=== PATIENT | male | born 1950 | race Two or more races ===

== ENCOUNTER 2020-03-15 07:48 | Outpatient (REF) | payer MEDICARE, MEDICAID, SELFPAY ==
[2020-03-15 09:17] LABS: Albumin Level 4.2 g/dL (3.5-5.0)
[2020-03-15 09:47] LABS: Free T4 (Free Thyroxine) 0.73 ng/dL (0.71-1.85); Thyroid Stimulating Hormone 1.49 mIU/mL (0.32-4.0); Vitamin D 25-OH Total 29.8 ng/mL (>30)
[2020-03-17 19:16] LABS: Calcium (PTHI) 10.3 mg/dL (8.6-10.3); PTHI 31 pg/mL (14-64)
== END 2020-03-15 07:49 | disposition home or self-care (01) ==
LOC: HO.LAB 07:48
PROVIDERS: PCP Internal Medicine Geriatric Medicine; Visit Provider Internal Medicine
DX: E04.2 Nontoxic multinodular goiter (principal)
CPT/HCPCS: 36415; 82040; 82306; 83970; 84439; 84443

== ENCOUNTER → 2020-05-07 07:43 | Outpatient (BNVA) | payer MEDICARE, MEDICAID, SELFPAY | PROVIDERS: PCP Internal Medicine Geriatric Medicine; Referring Provider Internal Medicine Geriatric Medicine; Visit Provider Internal Medicine | DX: E11.65 Type 2 diabetes mellitus with hyperglycemia (principal); Z79.4 Long term (current) use of insulin; E04.2 Nontoxic multinodular goiter; E55.9 Vitamin D deficiency, unspecified; E78.5 Hyperlipidemia, unspecified; I10 Essential (primary) hypertension; E83.52 Hypercalcemia; Z79.899 Other long term (current) drug therapy | CPT/HCPCS: Q3014 ==

== ENCOUNTER 2020-07-24 13:30 | Outpatient (REF) | payer MEDICARE, MEDICAID, SELFPAY ==
[2020-07-24 14:15] LABS: MANUAL DIFF FLAG NO
[2020-07-24 14:17] LABS: Basophils Absolute Auto 0.1 X10*3/uL (0.0-0.2); Basophils Percent Auto 0.8 % (0-2); Eosinophils Absolute Auto 0.2 X10*3/uL (0.0-0.4); Eosinophils Percent Auto 1.5 % (0-4); Hematocrit 44.1 % (42-52); Hemoglobin 14.7 g/dl (14.0-18.0); Imm Gran Abs Auto 0.05 X10*3/uL (0.00-0.03); Imm Gran Pct Auto 0.4 % (0.0-0.4); Lymphocytes Absolute Auto 3.3 X10*3/uL (1.2-4.9); Mean Corpuscular HGB Conc 33.3 g/dl (31.0-36.0); Mean Corpuscular Hemoglobin 29.3 pg (27.0-33.0); Mean Platelet Volume 10.1 fL (9.4-12.4); Monocytes Absolute Auto 0.9 X10*3/uL (0.1-1.2); Monocytes Percent Auto 7.4 % (2-11); Neutrophils Absolute Auto 7.2 X10*3/uL (2.0-8.3); Neutrophils Percent Auto 61.9 % (45-73); Platelet Count 307 X10*3/uL (160-400); Red Blood Count 5.01 X10*6/uL (4.60-5.80); Red Cell Distribution Width 13.2 % (11.0-16.0); White Blood Count 11.6 X10*3/uL (4.8-10.8)
[2020-07-24 14:46] LABS: Alanine Aminotransferase 67 U/L (0-40); Albumin Level 4.2 g/dL (3.5-5.0); Alkaline Phosphatase 69 U/L (39-117); Anion Gap 15 (12-20); Aspartate Amino Transferase 37 U/L (5-37); Bilirubin Total 0.4 mg/dL (0.0-1.0); Blood Urea Nitrogen 28 mg/dL (9-16); Calcium 10.5 mg/dL (8.4-10.2); Carbon Dioxide 30 mmol/L (22-29); Chloride 98 mmol/L (96-108); Estimated Glomerular Filt Rate > 60; Glucose Random 133 mg/dL (60-115); Potassium 3.9 mmol/L (3.3-5.1); Sodium 139 mmol/L (135-145); Total Protein 7.5 g/dL (6.5-8.0)
[2020-07-24 14:52] LABS: Creatinine Urine 29.24 mg/dL; Microalbum/Creatinine Ratio Ur 208.6 ug/mg cr
== END 2020-07-24 13:31 | disposition home or self-care (01) ==
LOC: HO.LAB 13:30
PROVIDERS: PCP Internal Medicine Geriatric Medicine; Visit Provider Internal Medicine Hypertension Specialist
DX: N18.31 Chronic kidney disease, stage 3a (principal)
CPT/HCPCS: 36415; 80053; 82043; 85025

== ENCOUNTER 2020-07-31 06:00 | Emergency (ER) | payer MEDICARE, MEDICAID, SELFPAY ==
--- NOTE | 2020-07-31 07:44 | ED_ITS ---
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 Mode of arrival: ambulatory Limitations: no limitations History of Present Illness HPI Narrative: 69 yo male with DM, HTN has had a chronic lesion on left inner calf but now over the past two days more red and painful - no fevers, no yellow drainage, states he has not been to a wound care center yet Complaint: extremity pain (ulcer pain) Onset (ago): day(s) (2) Pain Consistency: constant Location: left and lower extremity Quality: aching Radiation: none Relieving factors: nothing Exacerbating factors: nothing Associated symptoms: rash Related Data Home Medications Medication Instructions Recorded Confirmed alcohol swabs 1 pad TOPICAL PRN 05/07/20 05/07/20 amlodipine 5 mg tablet 5 mg PO QAM 05/07/20 05/07/20 aspirin 81 mg tablet,delayed 81 mg PO DAILY 05/07/20 05/07/20 release atorvastatin 40 mg tablet 40 mg PO DAILY 05/07/20 05/07/20 blood sugar diagnostic #10 ea 05/07/20 05/07/20 cetirizine 10 mg tablet mg PO 05/07/20 05/07/20 chlorthalidone 50 mg tablet 50 mg PO QAM 05/07/20 05/07/20 gabapentin 100 mg capsule 100 mg PO BEDTIME 05/07/20 05/07/20 insulin glargine 100 unit/mL 60 unit SUBCUT BEDTIME 05/07/20 05/07/20 subcutaneous solution insulin syringe-needle U-100 1 mL #10 ea 05/07/20 05/07/20 29 gauge x 1/2 pen needle, diabetic 32 gauge x #50 ea 05/07/20 05/07/20/32 repaglinide 2 mg tablet 2 mg PO BID 05/07/20 05/07/20 sennosides 8.6 mg tablet 17.2 mg PO BEDTIME 05/07/20 05/07/20 spironolactone 25 mg tablet 25 mg PO QAM 05/07/20 05/07/20 tamsulosin 0.4 mg capsule 0.4 mg PO BEDTIME 05/07/20 05/07/20 verapamil 120 mg tablet,extended 120 mg PO DAILY 05/07/20 05/07/20 release Previous Rx's Medication Instructions Recorded empagliflozin 25 mg tablet 25 mg PO QAM #30 tab 05/19/20 liraglutide 0.6 mg/0.1 mL (18 mg/3 1.8 mg SUBCUT DAILY #9 ml 06/16/20 mL) subcutaneous pen injector insulin lispro 100 unit/mL 30 unit SUBCUT TID #30 ml 06/23/20 subcutaneous solution metformin 1,000 mg tablet 1,000 mg PO BID #60 tab 06/23/20 cephalexin 500 mg PO BID 7 Days #14 cap 07/31/20 doxycycline hyclate 100 mg PO BID 7 Days #14 cap 07/31/20 hydrocodone-acetaminophen 1 tab PO Q6H PRN #12 tab 07/31/20 mupirocin 1 appl TOPICAL BID 7 Days #15 g 07/31/20 Allergies Allergy/AdvReac Type Severity Reaction Status Date / Time lisinopril [LISINOPRIL] Allergy Severe ANGIOEDEMA Verified 07/31/20 07:54 prednisone [PREDNISONE] Allergy Mild ITCHY Verified 07/31/20 07:54 Review of Systems Review of Systems: Constitutional : No Fever, No Chills ENT/Mouth : No sore throat, No Rhinorrhea Eyes: No Eye Pain, No Swelling, No Redness Cardiovascular : No Chest Pain, No SOB Respiratory : No Cough, No Sputum Gastrointestinal : No Nausea, No Vomiting, No Diarrhea, No abdominal Pain Genitourinary : No Dysuria, No Hematuria Musculoskeletal : No joint pain, No Myalgias, No Joint Swelling Skin : pos Skin Lesions, positive skin rash Neuro : No Weakness, No Numbness, No Headache Psych : No Anxiety, No Depression Heme/Lymph: No Bruising, No Bleeding,No Lymphadenopathy Endocrine : No Polyuria, No Polydipsia All other systems reviewed and are negative PMFSH Past Medical History Attestation statement: The following information was validated with the patient. Medical History Familial hypocalciuric hypercalcemia HLD (hyperlipidemia) HTN (hypertension) Multinodular thyroid T2DM (type 2 diabetes mellitus) Vitamin D deficiency Surgical History Hx of appendectomy Hx of cholecystectomy Hx of colonoscopy Hx of esophagogastroduodenoscopy Family History Family History Father CVD (cardiovascular disease) Diabetes Brother CVD (cardiovascular disease) Diabetes FH: heart attack Social History Social History Smoking Status: Former smoker Advance Directives: No Advance Directives Information Provided: Yes Physical Exam Vital Signs: Appearance: Alert. Oriented X3. No acute distress. Eyes: Pupils equal, round and reactive to light. ENT: Pharynx normal. Neck: Normal inspection. Neck supple. CVS: Normal heart rate and rhythm. Pulses normal. Respiratory: No respiratory distress. Breath sounds normal. Abdomen: Soft and nontender. Skin: Skin warm and dry. Normal skin color. Normal skin turgor. Extremities: No lower extremity edema. No calf ttp LLE inner calf - diabetic ulcer with scab noted - mild surrounding erythema, no drainage, distal NV intact Neuro: Oriented X 3. No motor deficit. No sensory deficit. MDM - Extremity (Nontraumatic) MDM Narrative Medical decision making narrative: 69 yo male with chronic LLE ulcer now with some increased pain and surrounding erythema and mild cellulitis, he is distal NV intact will start on oral antiboitics / mupiricon - refer to wound care center, has no calf pain or swelling to suggest DVT - Discharge Plan Discharge Clinical Impression: Diabetic ulcer of lower leg Cellulitis Qualifiers: Site of cellulitis: extremity Site of cellulitis of extremity: lower extremity Laterality: left Qualified Code(s): L03.116 - Cellulitis of left lower limb Patient Disposition: Home, Self-Care Instructions: Cellulitis (ED), Diabetes and Your Skin (ED) Additional Instructions: return to ED for any worsening symptoms or concerns Prescriptions: New doxycycline hyclate 100 mg capsule 100 mg PO BID 7 Days Qty: 14 RF: 0 hydrocodone-acetaminophen 5-325 mg tablet 1 tab PO Q6H PRN (Reason: pain) Qty: 12 RF: 0 cephalexin 500 mg capsule 500 mg PO BID 7 Days Qty: 14 RF: 0 mupirocin 2 % ointment 1 appl topical BID 7 Days Qty: 15 RF: 0 No Action empagliflozin [Jardiance] 25 mg tablet 25 mg PO QAM Qty: 30 RF: 11 liraglutide [Victoza 3-Beto] 0.6 mg/0.1 mL (18 mg/3 mL) pen injector 1.8 mg subcut DAILY Qty: 9 RF: 11 metformin 1,000 mg tablet 1,000 mg PO BID Qty: 60 RF: 11 insulin lispro [Humalog U-100 Insulin] 100 unit/mL solution 30 unit subcut TID Qty: 30 RF: 11 (DME) pen needle, diabetic 32 gauge x 5/32 needle See Rx Instructions ea .ROUTE DAILY Qty: 50 RF: 0 amlodipine 5 mg tablet 5 mg PO QAM RF: 0 cetirizine 10 mg tablet PO RF: 0 Lantus U-100 Insulin 100 unit/mL solution 60 unit subcut BEDTIME RF: 0 repaglinide 2 mg tablet 2 mg PO BID RF: 0 sennosides 8.6 mg tablet 17.2 mg PO BEDTIME RF: 0 atorvastatin 40 mg tablet 40 mg PO DAILY RF: 0 gabapentin 100 mg capsule 100 mg PO BEDTIME RF: 0 aspirin 81 mg tablet,delayed release (DR/EC) 81 mg PO DAILY RF: 0 (DME) insulin syringe-needle U-100 1 mL 29 gauge x 1/2 syringe See Rx Instructions ea .ROUTE QID Qty: 10 RF: 0 alcohol swabs Pads, Medicated 1 pad topical PRNRF: 0 chlorthalidone 50 mg tablet 50 mg PO QAM RF: 0 tamsulosin 0.4 mg capsule 0.4 mg PO BEDTIME RF: 0 verapamil 120 mg tablet extended release 120 mg PO DAILY RF: 0 (DME) OneTouch Ultra Blue Test Strip Strip See Rx Instructions ea Not Applicable TID Qty: 10 RF: 0 spironolactone 25 mg tablet 25 mg PO QAM RF: 0 Referrals: Jn Torres PA [[facility] [employer] [facility]] - 1 week ([facility]) Print Language: Tongan
[2020-07-31 07:55] VITALS: BP 147/65; PULSE 79; RESP 16; TEMP 36.7; O2SAT 96; BMI 35.5
[2020-07-31] MEDS: cephALEXin 500 MG CAPSULE PO (08:09)
[2020-07-31] MEDS: HYDROcodone Bit/Acetam 5/325 TABLET 1 TAB PO (08:09)
== END 2020-07-31 08:13 | disposition home or self-care (01) ==
LOC: HO.ED 07:57
PROVIDERS: Emergency Provider Emergency Medicine
DX: E11.622 Type 2 diabetes mellitus with other skin ulcer (principal); L97.229 Non-pressure chronic ulcer of left calf with unspecified severity; L03.116 Cellulitis of left lower limb; I10 Essential (primary) hypertension; Z79.4 Long term (current) use of insulin
CPT/HCPCS: 99283

== ENCOUNTER 2020-08-20 12:19 | Outpatient (REF) | payer MEDICARE, MEDICAID, SELFPAY ==
[2020-08-20 13:41] LABS: Estimated Average Glucose 200 mg/dL; Hemoglobin A1c % 8.6 %
[2020-08-20 13:45] LABS: Alanine Aminotransferase 71 U/L (0-40); Albumin Level 4.2 g/dL (3.5-5.0); Alkaline Phosphatase 80 U/L (39-117); Anion Gap 13 (12-20); Aspartate Amino Transferase 35 U/L (5-37); Bilirubin Total 0.4 mg/dL (0.0-1.0); Blood Urea Nitrogen 30 mg/dL (9-16); Calcium 9.7 mg/dL (8.4-10.2); Carbon Dioxide 28 mmol/L (22-29); Chloride 98 mmol/L (96-108); Estimated Glomerular Filt Rate 58; Glucose Random 332 mg/dL (60-115); Potassium 3.8 mmol/L (3.3-5.1); Sodium 135 mmol/L (135-145); Total Protein 7.6 g/dL (6.5-8.0)
[2020-08-20 14:07] LABS: Free T4 (Free Thyroxine) 0.65 ng/dL (0.71-1.85); Thyroid Stimulating Hormone 1.06 uIU/mL (0.32-4.0)
== END 2020-08-20 12:20 | disposition home or self-care (01) ==
LOC: HO.LAB 12:19
PROVIDERS: PCP Internal Medicine Geriatric Medicine; Visit Provider Internal Medicine
DX: E11.65 Type 2 diabetes mellitus with hyperglycemia (principal); E04.2 Nontoxic multinodular goiter; Z79.4 Long term (current) use of insulin
CPT/HCPCS: 36415; 80053; 83036; 84439; 84443

== ENCOUNTER → 2020-08-21 07:36 | Outpatient (BNVA) | payer MEDICARE, MEDICAID, SELFPAY | PROVIDERS: PCP Internal Medicine Geriatric Medicine; Visit Provider Internal Medicine | DX: E11.65 Type 2 diabetes mellitus with hyperglycemia (principal); E04.2 Nontoxic multinodular goiter; E78.5 Hyperlipidemia, unspecified; E83.52 Hypercalcemia; I10 Essential (primary) hypertension; Z79.4 Long term (current) use of insulin; Z71.3 Dietary counseling and surveillance | CPT/HCPCS: 82947; 99212 ==

== ENCOUNTER → 2020-08-28 10:50 | Outpatient (BNVA) | payer MEDICARE, MEDICAID, SELFPAY | PROVIDERS: Visit Provider Surgery | DX: L98.9 Disorder of the skin and subcutaneous tissue, unspecified (principal) | CPT/HCPCS: 99202 ==

== ENCOUNTER 2020-09-10 12:39 | Outpatient (REF) | payer MEDICARE, MEDICAID, SELFPAY ==
[2020-09-10 12:43] VITALS: BMI 35.8
[2020-09-10 12:44] VITALS: BP 161/70; PULSE 83; RESP 18; TEMP 36.7; O2SAT 97
--- NOTE | 2020-09-10 13:22 | P.OP_ITS ---
Operative Note Operative Note Date of Service: 09/10/20 Narrative: Preop diagnosis: Skin lesion, left lower leg Postop diagnosis: Skin lesion, left lower leg, path pending Procedure: Excision of skin lesion, left lower leg Surgeon: Neftaly Almendarez MD The patient is a 70-year-old male with a skin lesion on the left lower leg measuring about 2.8 cm by 2 cm, circular in shape, elevated, with raised margins. He understood the technique of excision under local anesthesia. He was aware of the risks, benefits alternatives. He also was aware that we may not be able to completely close the entire skin lesion because of the size of the lesion and will have to allow healing by secondary intention. He was brought to the minor procedure room. He was placed supine. The area of the skin lesion was prepped and draped lidocaine 1% was used for local anesthesia. An elliptical incision made in the skin around this lesion using a blade 15., with care being taken so as to ensure that there was margins of grossly normal appearing skin. This incision was carried down through the full- thickness skin and part of subcutaneous layer. The the entire lesion was excised. I undermined the edges to allow less tension. I applied full- thickness and 3-0 interrupted sutures. However, with a mid part of the incision was left open as there was note of an adequate skin skin flap to cover this entire area. Applied wet to dry dressings and wrapped the foot with Zulma roll. He tolerated procedure well. There were no complications noted. Estimated blood loss was about 5 cc. I gave him wound care instructions which will be wet to dry dressings daily. He was given some supplies as was well. I will see him in the office for wound check next week.
[2020-09-10 13:25] VITALS: BP 181/76; PULSE 87; RESP 18; O2SAT 97
--- NOTE | 2020-09-10 13:26 | PM.OP ---
Brief Operative Note Date of Service: 09/10/20 Pre-op diagnosis: Skin lesion, left lower leg Post-op diagnosis: same Procedure: Excision of skin lesion left lower leg under local anesthesia Surgeon: Neftaly Almendarez MD Anesthesia: local Estimated blood loss (mL): 5 Pathology: other (Skin lesion) Condition: stable Disposition: other (Home)
== END 2020-09-10 12:40 | disposition home or self-care (01) ==
LOC: HO.MS 12:39
PROVIDERS: PCP Internal Medicine Geriatric Medicine; Visit Provider Surgery
PROC: (CPT 11603; principal; 2020-09-10 13:50)
DX: C44.719 Basal cell carcinoma of skin of left lower limb, including hip (principal); I10 Essential (primary) hypertension; E11.9 Type 2 diabetes mellitus without complications; Z79.4 Long term (current) use of insulin; Z79.899 Other long term (current) drug therapy; Z88.8 Allergy status to other drugs, medicaments and biological substances
CPT/HCPCS: 11603; 88305

== ENCOUNTER → 2020-09-17 09:06 | Outpatient (BNVA) | payer MEDICARE, MEDICAID, SELFPAY | PROVIDERS: PCP Internal Medicine Geriatric Medicine; Visit Provider Surgery | DX: C44.91 Basal cell carcinoma of skin, unspecified (principal); Z79.899 Other long term (current) drug therapy | CPT/HCPCS: Q3014 ==

== ENCOUNTER → 2020-09-18 13:05 | Outpatient (BNVA) | payer MEDICARE, MEDICAID, SELFPAY | PROVIDERS: PCP Internal Medicine Geriatric Medicine; Visit Provider Internal Medicine Cardiovascular Disease | DX: I35.0 Nonrheumatic aortic (valve) stenosis (principal); I10 Essential (primary) hypertension | CPT/HCPCS: 93005; 99202 ==

== ENCOUNTER → 2020-10-06 14:18 | Outpatient (BNVA) | payer MEDICARE, MEDICAID, SELFPAY | PROVIDERS: PCP Internal Medicine Geriatric Medicine; Visit Provider Surgery | DX: Z48.3 Aftercare following surgery for neoplasm (principal); Z86.018 Personal history of other benign neoplasm | CPT/HCPCS: 99212 ==

== ENCOUNTER → 2020-11-03 12:33 | Outpatient (REF) | payer MEDICARE, MEDICAID, SELFPAY ==
--- NOTE | 2020-11-03 12:35 | CA_ITS ---
Transthoracic Echocardiogram Patient (Last, First, Middle): Josue Gautam, Gender: Male Date of : 1950 Age: 70 Procedure Date: 11/03/2020 Procedure Type: Transthoracic Echocardiogram Location: OP Height: 167.64 cm Weight: 99.79 kg BSA: 2.08 m2 Heart Rate: bpm BP: 135 / 67 mmHg Business Unit Director: RADHA Referring MD: Jaime Zamarripa MD Symptoms: I35.0 - Nonrheumatic aortic (valve) stenosis Study Quality: Fair/contrast ECG Rhythm: Sinus Conclusions: - The left ventricular systolic function is normal. The visually estimated ejection fraction is between 60-65%. - There is mild calcification of the aortic valve. - No obvious valvular pathology seen on this study. Findings Procedure Information Contrast agent, definity, is being given per protocol without apparent complications. Left Ventricle Normal left ventricular cavity size. There is mildly increased left ventricular wall thickness. The left ventricular systolic function is normal. The visually estimated ejection fraction is between 60-65%. There is no evidence of regional wall motion abnormalities. Evidence suggests grade I (mild) diastolic dysfunction. Right Ventricle Normal right ventricular cavity size and systolic function. Atria The left atrium is normal in size. The right atrium is normal in size. Aortic Valve There is a normal trileaflet aortic valve. There is mild calcification of the aortic valve. There is no aortic valve stenosis. The peak aortic velocity is 1.64 m/s with a calculated peak gradient of 11 mmHg. The mean gradient is 5 mmHg. The aortic valve area is 2.25 cm2. There is no aortic valve regurgitation. Mitral Valve The mitral valve appears normal. There is no mitral valve regurgitation. There is no mitral valve stenosis. Pulmonic Valve The pulmonic valve was not well visualized. Tricuspid Valve There is trace tricuspid valve regurgitation. The pulmonary artery systolic pressure is normal. Great Vessels The aortic annulus, sinuses of valsalva, and asc aorta are normal in size. Venous The inferior vena cava is normal in size and collapses greater than 50% with inspiration. Pericardium/Pleural There is no evidence of pericardial effusion. Prior Study Comparison No significant change compared to prior study dated: 11/04/2015. Recommendations, Care & Conclusions No obvious valvular pathology seen on this study. Measurements 2D Linear Measurements IVSd: 1.19 0.6-0.9/0.6-1.0 cm LVIDd: 3.99 3.9-5.3/4.2-5.9 cm LVIDd Index: 1.92 2.4-3.2/2.2-3.1 cm/m2 LVIDs: 2.49 2.0-3.6 cm LVPWd: 1.18 0.7-1.1 cm Ao Root: 3.20 2.1-3.5 cm LA Diam: 3.60 2.7-3.8/3.0-4.0 cm LAIDs Index: 1.73 1.5-2.3 cm/m2 LV Mass: 201.49 67-162/88-224 g LV Mass Index: 96.87 43-95/49-115 g/m2 LVOT Diam: 2.00 3.0+(-)1.3 cm 2D Systolic Function EF 4C: 61.40 >55% EF 2C: 63.80 >55% EF BiP: 62.60 >55% Mitral Valve MV Pk E: 0.59 MV PK A: 0.88 MV Decel Time: 294.00 E/A: 0.70 E'Lateral: 6.09 E'Medial: 6.20 E/E' Med: 9.60 E/E' Lat: 9.80 PHT: 86.00 MVA PHT: 2.56 Decel [place]: 2.02 Aortic Valve AoV Pk Mario: 1.64 AoV Mn Mario: 1.10 AoV VTI: 0.32 AoV Pk Grad: 11.00 Aov Mn Grad: 5.00 FATIMAH Cont.VTI: 2.25 LVOT LVOT Pk Mario: 1.12 LVOT Mn Mario: 0.65 LVOT VTI: 0.23 LVOT Pk Grad: 5.00 LVOT Mn Grad: 2.00 LVOT Diam: 2.00 LVOT Area: 3.14 Diastolic Function MV Pk E: 0.59 MV Pk A: 0.88 E/A: 0.70 E'Medial: 6.20 E/E' Med: 9.60 E' Laterial: 6.09 E/E' Lat: 9.80 Tricuspid Valve TR Pk Mario: 1.53 TR Pk Grad: 9.00 RA Press: 3.00 RVSP: 12.00 Great Vessels Aorta Ao Root-2D: 3.20 2.0-3.7 cm Ao Asc: 3.60 2.1-3.4 cm Ao Arch: 2.70 Updated in Other Vendor System with Status of Final Taiwo Edwards MD electronically signed on 11/04/2020 12:15:36 PM with status of Final
== END ==
LOC: HO.CARD 12:33
PROVIDERS: PCP Internal Medicine Geriatric Medicine; Visit Provider Internal Medicine Cardiovascular Disease
DX: I35.0 Nonrheumatic aortic (valve) stenosis (principal)
CPT/HCPCS: 93306; Q9957

== ENCOUNTER → 2020-11-05 15:52 | Outpatient (BNVA) | payer MEDICARE, MEDICAID, SELFPAY | PROVIDERS: PCP Internal Medicine Geriatric Medicine; Referring Provider Internal Medicine Geriatric Medicine; Visit Provider Surgery | DX: Z87.2 Personal history of diseases of the skin and subcutaneous tissue (principal) | CPT/HCPCS: 99212 ==

== ENCOUNTER 2020-11-27 07:49 | Outpatient (REF) | payer MEDICARE, MEDICAID, SELFPAY ==
[2020-11-27 10:38] LABS: Creatinine Urine 37.24 mg/dL
[2020-11-27 10:38] LABS: Alanine Aminotransferase 77 U/L (0-40); Albumin Level 4.2 g/dL (3.5-5.0); Alkaline Phosphatase 75 U/L (39-117); Anion Gap 12 (12-20); Aspartate Amino Transferase 45 U/L (5-37); Bilirubin Total 0.4 mg/dL (0.0-1.0); Blood Urea Nitrogen 23 mg/dL (9-16); Calcium 9.5 mg/dL (8.4-10.2); Carbon Dioxide 28 mmol/L (22-29); Chloride 101 mmol/L (96-108); Cholesterol 103 mg/dL; Estimated Glomerular Filt Rate > 60; Glucose Random 175 mg/dL (60-115); HDL Cholesterol 35 mg/dL; LDL Cholesterol Calculated 42 mg/dl; Potassium 4.1 mmol/L (3.3-5.1); Sodium 137 mmol/L (135-145); Total Protein 7.5 g/dL (6.5-8.0); Triglycerides 131 mg/dL
[2020-11-27 10:44] LABS: Free T4 (Free Thyroxine) 0.74 ng/dL (0.71-1.85); Thyroid Stimulating Hormone 0.71 uIU/mL (0.32-4.0)
[2020-11-30 14:36] LABS: LDL Cholesterol Direct 50 mg/dL (<100)
== END 2020-11-27 07:50 | disposition home or self-care (01) ==
LOC: HO.LAB 07:49
PROVIDERS: PCP Internal Medicine Geriatric Medicine; Visit Provider Internal Medicine
DX: E11.65 Type 2 diabetes mellitus with hyperglycemia (principal); E04.2 Nontoxic multinodular goiter; E78.5 Hyperlipidemia, unspecified; E83.52 Hypercalcemia; I10 Essential (primary) hypertension; Z79.4 Long term (current) use of insulin
CPT/HCPCS: 36415; 80053; 80061; 82043; 82947; 83721; 84439; 84443; 99212

== ENCOUNTER 2020-12-01 11:23 | Outpatient (REF) | payer MEDICARE, MEDICAID, SELFPAY ==
--- NOTE | ~2020-12-01 | XR_ITS ---
EXAMINATION: XR LUMBOSACRAL SPINE WITH OBLIQUES CLINICAL INFORMATION: Low back pain COMPARISON: Previous MRI April 2018 CT April 2018 and x-ray June 2015 TECHNIQUE: AP, both oblique, and lateral views of the lumbar spine. Lateral view of the lumbosacral junction. FINDINGS: Bone alignment is normal. No fracture or dislocation is seen. Disc spaces are normal. There is degenerative spondylosis of the visualized lower thoracic spine. There is lower lumbar spine facet arthritis. No pars defect is seen. There is evidence of atherosclerotic disease. XR/XR lumbar spine 4V min IMPRESSION: Degenerative changes.
== END 2020-12-01 11:24 | disposition home or self-care (01) ==
LOC: HO.XRAY 11:23
PROVIDERS: PCP Internal Medicine Geriatric Medicine; Visit Provider Internal Medicine Geriatric Medicine
DX: M54.5 Low back pain (principal)
CPT/HCPCS: 72110

== ENCOUNTER 2021-02-03 07:10 | Outpatient (REF) | payer MEDICARE, MEDICAID, SELFPAY ==
[2021-02-03 07:43] LABS: MANUAL DIFF FLAG NO
[2021-02-03 07:50] LABS: Basophils Absolute Auto 0.1 X10*3/uL (0.0-0.2); Basophils Percent Auto 0.6 % (0-2); Eosinophils Absolute Auto 0.3 X10*3/uL (0.0-0.4); Eosinophils Percent Auto 2.7 % (0-4); Hematocrit 44.7 % (42-52); Hemoglobin 14.5 g/dl (14.0-18.0); Imm Gran Abs Auto 0.05 X10*3/uL (0.00-0.03); Imm Gran Pct Auto 0.5 % (0.0-0.4); Lymphocytes Absolute Auto 2.9 X10*3/uL (1.2-4.9); Lymphocytes Percent Auto 27.4 % (20-40); Mean Corpuscular HGB Conc 32.4 g/dl (31.0-36.0); Mean Corpuscular Hemoglobin 28.8 pg (27.0-33.0); Mean Corpuscular Volume 88.9 fL (80-98); Mean Platelet Volume 10.4 fL (9.4-12.4); Monocytes Absolute Auto 0.8 X10*3/uL (0.1-1.2); Monocytes Percent Auto 7.4 % (2-11); Neutrophils Absolute Auto 6.5 X10*3/uL (2.0-8.3); Neutrophils Percent Auto 61.4 % (45-73); Platelet Count 297 X10*3/uL (160-400); Red Blood Count 5.03 X10*6/uL (4.60-5.80); Red Cell Distribution Width 13.1 % (11.0-16.0); White Blood Count 10.6 X10*3/uL (4.8-10.8)
[2021-02-03 07:57] LABS: Estimated Average Glucose 209 mg/dL; Hemoglobin A1c % 8.9 %
[2021-02-03 08:17] LABS: Alanine Aminotransferase 78 U/L (0-40); Albumin Level 3.9 g/dL (3.5-5.0); Alkaline Phosphatase 85 U/L (39-117); Anion Gap 13 (12-20); Aspartate Amino Transferase 38 U/L (5-37); Bilirubin Total 0.4 mg/dL (0.0-1.0); Blood Urea Nitrogen 26 mg/dL (9-16); Calcium 9.7 mg/dL (8.4-10.2); Carbon Dioxide 29 mmol/L (22-29); Chloride 102 mmol/L (96-108); Estimated Glomerular Filt Rate 51; Glucose Random 307 mg/dL (60-115); Sodium 140 mmol/L (135-145); Total Protein 7.3 g/dL (6.5-8.0)
[2021-02-03 08:18] LABS: Anion Gap 14 (12-20); Blood Urea Nitrogen 27 mg/dL (9-16); Calcium 9.8 mg/dL (8.4-10.2); Carbon Dioxide 28 mmol/L (22-29); Chloride 102 mmol/L (96-108); Estimated Glomerular Filt Rate 50; Potassium 4.1 mmol/L (3.3-5.1); Sodium 140 mmol/L (135-145)
[2021-02-03 09:38] LABS: Creatinine Urine 41.37 mg/dL
== END 2021-02-03 07:11 | disposition home or self-care (01) ==
LOC: HO.LAB 07:10
PROVIDERS: Internal Medicine; PCP Internal Medicine Geriatric Medicine; Visit Provider Internal Medicine Hypertension Specialist
DX: E11.65 Type 2 diabetes mellitus with hyperglycemia (principal); E11.22 Type 2 diabetes mellitus with diabetic chronic kidney disease; I12.9 Hypertensive chronic kidney disease with stage 1 through stage 4 chronic kidney disease, or unspecified chronic kidney disease; N18.9 Chronic kidney disease, unspecified; Z79.4 Long term (current) use of insulin
CPT/HCPCS: 36415; 80051; 80053; 82310; 82565; 83036; 84520; 85025

== ENCOUNTER → 2021-03-09 08:02 | Outpatient (BNVA) | payer MEDICARE, MEDICAID, SELFPAY | PROVIDERS: PCP Internal Medicine Geriatric Medicine; Visit Provider Internal Medicine | DX: E11.65 Type 2 diabetes mellitus with hyperglycemia (principal); E04.2 Nontoxic multinodular goiter; E55.9 Vitamin D deficiency, unspecified; E78.5 Hyperlipidemia, unspecified; E83.52 Hypercalcemia; I10 Essential (primary) hypertension; Z79.4 Long term (current) use of insulin | CPT/HCPCS: 82947; 99212 ==

== ENCOUNTER → 2021-03-19 12:32 | Outpatient (BNVA) | payer MEDICARE, MEDICAID, SELFPAY | PROVIDERS: PCP Internal Medicine Geriatric Medicine; Referring Provider Internal Medicine Geriatric Medicine; Visit Provider Internal Medicine Cardiovascular Disease | DX: I35.0 Nonrheumatic aortic (valve) stenosis (principal); I10 Essential (primary) hypertension; R10.13 Epigastric pain | CPT/HCPCS: 99212 ==

== ENCOUNTER → 2021-03-25 11:53 | Outpatient (BNVA) | payer MEDICARE, MEDICAID, SELFPAY | PROVIDERS: PCP Internal Medicine Geriatric Medicine; Referring Provider Internal Medicine Geriatric Medicine; Visit Provider Physician Assistant | DX: R74.01 Elevation of levels of liver transaminase levels (principal); K59.09 Other constipation | CPT/HCPCS: 99202 ==

== ENCOUNTER 2021-03-28 06:53 | Outpatient (REF) | payer MEDICARE, MEDICAID, SELFPAY ==
[2021-03-28 07:10] LABS: MANUAL DIFF FLAG NO
[2021-03-28 08:02] LABS: Creatinine Urine 51.57 mg/dL; Microalbum/Creatinine Ratio Ur 118.2 ug/mg cr
[2021-03-28 08:06] LABS: Alanine Aminotransferase 68 U/L (0-40); Alkaline Phosphatase 76 U/L (39-117); Anion Gap 14 (12-20); Aspartate Amino Transferase 41 U/L (5-37); Bilirubin Total 0.4 mg/dL (0.0-1.0); Blood Urea Nitrogen 20 mg/dL (9-16); Calcium 10.2 mg/dL (8.4-10.2); Carbon Dioxide 28 mmol/L (22-29); Chloride 100 mmol/L (96-108); Estimated Glomerular Filt Rate 56; Glucose Random 234 mg/dL (60-115); Potassium 4.3 mmol/L (3.3-5.1); Sodium 138 mmol/L (135-145); Total Protein 7.5 g/dL (6.5-8.0)
[2021-03-28 08:11] LABS: Basophils Absolute Auto 0.1 X10*3/uL (0.0-0.2); Basophils Percent Auto 0.6 % (0-2); Eosinophils Absolute Auto 0.2 X10*3/uL (0.0-0.4); Eosinophils Percent Auto 2.1 % (0-4); Hematocrit 46.1 % (42-52); Hemoglobin 15.3 g/dl (14.0-18.0); Imm Gran Abs Auto 0.05 X10*3/uL (0.00-0.03); Imm Gran Pct Auto 0.5 % (0.0-0.4); Lymphocytes Absolute Auto 2.4 X10*3/uL (1.2-4.9); Lymphocytes Percent Auto 25.3 % (20-40); Mean Corpuscular HGB Conc 33.2 g/dl (31.0-36.0); Mean Corpuscular Hemoglobin 29.5 pg (27.0-33.0); Mean Corpuscular Volume 88.8 fL (80-98); Mean Platelet Volume 10.9 fL (9.4-12.4); Monocytes Absolute Auto 0.9 X10*3/uL (0.1-1.2); Monocytes Percent Auto 9.3 % (2-11); Neutrophils Absolute Auto 5.9 X10*3/uL (2.0-8.3); Neutrophils Percent Auto 62.2 % (45-73); Platelet Count 282 X10*3/uL (160-400); Red Blood Count 5.19 X10*6/uL (4.60-5.80); Red Cell Distribution Width 13.2 % (11.0-16.0); White Blood Count 9.5 X10*3/uL (4.8-10.8)
== END 2021-03-28 06:54 | disposition home or self-care (01) ==
LOC: HO.LAB 06:53
PROVIDERS: PCP Internal Medicine Geriatric Medicine; Visit Provider Internal Medicine Hypertension Specialist
DX: E11.22 Type 2 diabetes mellitus with diabetic chronic kidney disease (principal); N18.31 Chronic kidney disease, stage 3a
CPT/HCPCS: 36415; 80053; 82043; 85025

== ENCOUNTER 2021-03-29 07:02 | Emergency (ER) | payer MEDICARE, MEDICAID, SELFPAY ==
--- NOTE | ~2021-03-29 | CT_ITS ---
EXAMINATION: CT HEAD WITHOUT CONTRAST CLINICAL INFORMATION: Headache COMPARISON: Head CT January 22, 2015 TECHNIQUE: Contiguous axial imaging was performed from the skull base to vertex without intravenous administration of contrast. This CT examination was performed using dose optimization techniques as appropriate, variously including the following: *Automated exposure control *Adjustment of mA and/or kV according to patient size (this includes techniques or standardized protocols for targeted exams where dose is matched to indication/reason for exam; i.e. extremities or head) *Use of iterative reconstruction technique DLP: 746 mGy-cm FINDINGS: There is no evidence of acute intracranial hemorrhage or territorial infarction. No abnormal mass effect or midline shift is seen. Decker to white matter differentiation is well preserved. No extra-axial fluid collections are identified. The ventricles are normal in size. There is no abnormal attenuation within the brain parenchyma. The osseous structures and soft tissues are normal. The mastoid air cells and visualized portions of the paranasal sinuses are well aerated. CT/CT head/brain wo con IMPRESSION: No acute intracranial pathology.
[2021-03-29 07:10] VITALS: BP 173/77; PULSE 82; RESP 18; TEMP 36.1; O2SAT 97; BMI 35.5
--- NOTE | 2021-03-29 07:37 | ED_ITS ---
HPI - Headache General Chief Complaint: Headache Stated Complaint: HEADACHE BLURY VISION IN EYE Time Seen by Provider: 03/29/21 07:27 Source: patient Mode of arrival: ambulatory Limitations: no limitations History of Present Illness HPI Narrative: 70-year-old male presents of a right-sided headache for the past week he has been taking Tylenol without any relief. He states he has no history of migraines. Patient is very soft-spoken states that he had his vocal cords injured 2 years ago there has been no recent change he also has complaints epigastric versus left upper quadrant abdominal pain and chronic kidney disease. He states he is diabetic for past 20 years. He denies any falls or injuries of his head he states Tylenol does not relieve it nothing seems to make it worse it has been intermittent. He denies any changes in vision double vision blurry vision but states his right eye is tearing and he has pain to his right eye as well. Patient denies any fevers neck pain neck stiffness MD elicited complaint: headache Onset (ago): week(s) Related Data Home Medications Medication Instructions Recorded Confirmed alcohol swabs 1 pad TOPICAL PRN 05/07/20 03/25/21 amlodipine 5 mg tablet 5 mg PO QAM 05/07/20 03/25/21 aspirin 81 mg tablet,delayed 81 mg PO DAILY 05/07/20 03/25/21 release blood sugar diagnostic #10 ea 05/07/20 03/19/21 chlorthalidone 50 mg tablet 50 mg PO QAM 05/07/20 03/25/21 gabapentin 100 mg capsule 100 mg PO BEDTIME 05/07/20 03/19/21 insulin syringe-needle U-100 1 mL #10 ea 05/07/20 03/19/21 29 gauge x 1/2 spironolactone 25 mg tablet 25 mg PO QAM 05/07/20 03/25/21 tamsulosin 0.4 mg capsule 0.4 mg PO BEDTIME 05/07/20 03/25/21 verapamil 120 mg tablet,extended 120 mg PO DAILY 05/07/20 03/25/21 release cetirizine 10 mg tablet 10 mg PO DAILY PRN tab 08/21/20 03/19/21 insulin lispro 100 unit/mL 35 unit SUBCUT TID ml 11/27/20 03/19/21 subcutaneous solution (Humalog U-100 Insulin) canagliflozin 300 mg tablet 300 mg PO QAM 03/25/21 03/25/21 (Invokana) Previous Rx's Medication Instructions Recorded liraglutide 0.6 mg/0.1 mL (18 mg/3 1.8 mg SUBCUT DAILY #9 ml 06/16/20 mL) subcutaneous pen injector (Victoza 3-Beto) metformin 1,000 mg tablet 1,000 mg PO BID #60 tab 06/23/20 mupirocin 2 % topical ointment 1 appl TOPICAL BID 7 Days #15 g 07/31/20 pen needle, diabetic 32 gauge x 1 ea MISCELLANEOUS QID 30 Days 08/11/20 (Pentips) #100 ea canagliflozin 300 mg tablet 300 mg PO DAILY 30 Days #30 tab 08/21/20 (Invokana) insulin glargine 100 unit/mL 65 unit SUBCUT BEDTIME 30 Days 01/04/21 subcutaneous solution #19.5 ml atorvastatin 40 mg tablet 40 mg PO DAILY 30 Days #30 tab 01/28/21 pen needle, diabetic 32 gauge x #125 ea 03/02/21 (BD Ultra-Fine Marry Pen Needle) omeprazole 20 mg capsule,delayed 20 mg PO DAILY #60 cap 03/19/21 release docusate sodium 100 mg capsule 200 mg PO BEDTIME #60 cap 03/25/21 (Colace) methylcellulose (laxative) 500 mg 500 mg PO BID #60 tab 03/25/21 tablet (Citrucel) polyethylene glycol 3350 17 17 g PO DAILY #510 g 03/25/21 gram/dose oral powder (Miralax) Allergies Allergy/AdvReac Type Severity Reaction Status Date / Time lisinopril [LISINOPRIL] Allergy Severe ANGIOEDEMA Verified 03/25/21 12:06 prednisone [PREDNISONE] Allergy Mild ITCHY Verified 03/25/21 12:06 Review of Systems Review of Systems: Review of systems: General: Patient denies any fever chills recent illness or falls Musculoskeletal: Denies back pain or body aches or other injuries HEENT: Headache denies, runny nose, ear pain Respiratory: denies shortness of breath, cough Cardiovascular: no chest pain or palpitations : denies dysuria, frequency Abdomen: no nausea vomiting denies abdominal pain Extremities: no swelling, no pain Skin: no diaphoresis Yes all other systems are reviewed and are negative PMFSH Past Medical History Medical History Basal cell carcinoma (BCC) Familial hypocalciuric hypercalcemia Heart murmur HLD (hyperlipidemia) HTN (hypertension) Multinodular thyroid Skin lesion of left lower extremity T2DM (type 2 diabetes mellitus) Transaminitis Vitamin D deficiency Surgical History Hx of appendectomy Hx of cholecystectomy Hx of colonoscopy Hx of esophagogastroduodenoscopy Hx of melanoma excision Family History Family History Father CVD (cardiovascular disease) Diabetes Brother CVD (cardiovascular disease) Diabetes FH: heart attack Social History Social History Household Members: Family Alcohol intake: unknown Patient Tobacco Use Status: Never used Tobacco Use of substances other than those prescribed or required for medical reasons: No Advance Directives: No Advance Directives Information Provided: Yes Physical Exam Vital Signs: Vital Signs: Last Vital Signs Temp 97 F 03/29/21 07:10 Pulse 78 03/29/21 07:59 Resp 15 03/29/21 07:59 BP 150/62 H 03/29/21 07:59 Pulse Ox 95 03/29/21 07:59 Body Mass Index 35.5 Neurological exam: CN II- XII tested. Patient is alert and oriented to person place and time. Patient has no dysphagia or dysarthia, denies good vision in all four vision lowe no nystagmus on exam, good strength to upper and lower extremities with normal reflexes to brachioradialis, wrist, patella and achilles. Negative romberg, good finger to nose and heel to [place]. General: Well-appearing well-nourished in no signs of distress HEENT: Normocephalic atraumatic Neck: No signs of JVD, no masses no tenderness or lymphadenopathy Cardiovascular: Regular rate and rhythm Respiratory: Clear to auscultation bilaterally Abdomen: Soft nontender no masses Extremities: Normal pedal pulses no signs of edema Skin: Dry warm no rashes Back: No tenderness full ROM MDM - Headache MDM Narrative Medical decision making narrative: Patient with no history of migraines the patient for a CT scan of his head I will check labs including LFTs and lipase his belly exam is benign I do not think the patient has an acute surgical complication with his head again patient fluids Toradol Reglan Benadryl [id number] patient re-evaluated patient is feeling much better patient sleeping in the room CT of the head and labs are unremarkable patient has history of transaminitis which is stable from previous. I do not think patient needs any further workup and feel comfortable sending home with PCP follow-up. Lab Data Result diagrams: 03/29/21 07:45 03/29/21 07:45 Labs: Lab Results 03/29/21 03/29/21 Range/Units 07:45 07:45 WBC 9.4 (4.8-10.8) X10*3/uL RBC 5.04 (4.60-5.80) X10*6/uL Hgb 14.7 (14.0-18.0) g/dl Hct 44.0 (42-52) % MCV 87.3 (80-98) fL MCH 29.2 (27.0-33.0) pg MCHC 33.4 (31.0-36.0) g/dl RDW 13.2 (11.0-16.0) % Plt Count 261 (160-400) X10*3/uL MPV 10.5 (9.4-12.4) fL Immature Gran % (Auto) 0.4 (0.0-0.4) % Neut % (Auto) 68.6 (45-73) % Lymph % (Auto) 19.1 L (20-40) % [place] % (Auto) 9.4 (2-11) % Eos % (Auto) 2.1 (0-4) % Baso % (Auto) 0.4 (0-2) % Lymph # (Auto) 1.8 (1.2-4.9) X10*3/uL [place] # (Auto) 0.9 (0.1-1.2) X10*3/uL Eos # (Auto) 0.2 (0.0-0.4) X10*3/uL Baso # (Auto) 0.0 (0.0-0.2) X10*3/uL Abs Immat Gran (auto) 0.04 H (0.00-0.03) X10*3/uL Absolute Neuts (auto) 6.4 (2.0-8.3) X10*3/uL Absolute Nucleated RBC 0.000 (0.0-0.012) X10*3/uL Nucleated RBC % (auto) 0.0 (0.0-0.2) /100WBC Sodium 136 (135-145) mmol/L Potassium 3.9 (3.3-5.1) mmol/L Chloride 99 (96-108) mmol/L Carbon Dioxide 26 (22-29) mmol/L Anion Gap 15 (12-20) BUN 27 H (9-16) mg/dL Creatinine 1.35 (0.5-1.4) mg/dL Estim Creat Clear Calc 56.3 Estimated GFR 52 Random Glucose 337 H D (60-115) mg/dL Calcium 10.0 (8.4-10.2) mg/dL Total Bilirubin 0.4 (0.0-1.0) mg/dL Direct Bilirubin 0.2 (0.0-0.5) mg/dL AST 35 (5-37) U/L ALT 63 H (0-40) U/L Alkaline Phosphatase 81 (39-117) U/L Total Protein 7.3 (6.5-8.0) g/dL Albumin 4.0 (3.5-5.0) g/dL Lipase 55 (8-78) U/L Discharge Plan Discharge Clinical Impression: Headache Patient Disposition: Home, Self-Care Instructions: General Headache (ED) Additional Instructions: Please call follow-up with her doctor if you have any worsening headache please do not hesitate Tylenol or ibuprofen. If you have any fevers neck stiffness or other concerns please return to the emergency department. Prescriptions: No Action liraglutide [Victoza 3-Beto] 0.6 mg/0.1 mL (18 mg/3 mL) pen injector 1.8 mg subcut DAILY Qty: 9 RF: 11 metformin 1,000 mg tablet 1,000 mg PO BID Qty: 60 RF: 11 pen needle, diabetic [Pentips] 32 gauge x 5/32 needle 1 ea miscellaneous QID 30 Days Qty: 100 RF: 11 insulin glargine 100 unit/mL solution 65 unit subcut BEDTIME 30 Days Qty: 19.5 RF: 11 atorvastatin 40 mg tablet 40 mg PO DAILY 30 Days Qty: 30 RF: 11 (DME) pen needle, diabetic [BD Ultra-Fine Marry Pen Needle] 32 gauge x / needle See Rx Instructions .ROUTE .MEDSUPPLY Qty: 125 RF: 11 mupirocin 2 % ointment 1 appl topical BID 7 Days Qty: 15 RF: 0 amlodipine 5 mg tablet 5 mg PO QAM RF: 0 gabapentin 100 mg capsule 100 mg PO BEDTIME RF: 0 aspirin 81 mg tablet,delayed release (DR/EC) 81 mg PO DAILY RF: 0 (DME) insulin syringe-needle U-100 1 mL 29 gauge x 1/2 syringe See Rx Instructions ea .ROUTE QID Qty: 10 RF: 0 alcohol swabs Pads, Medicated 1 pad topical PRNRF: 0 chlorthalidone 50 mg tablet 50 mg PO QAM RF: 0 tamsulosin 0.4 mg capsule 0.4 mg PO BEDTIME RF: 0 verapamil 120 mg tablet extended release 120 mg PO DAILY RF: 0 (DME) OneTouch Ultra Blue Test Strip Strip See Rx Instructions ea Not Applicable TID Qty: 10 RF: 0 spironolactone 25 mg tablet 25 mg PO QAM RF: 0 cetirizine 10 mg tablet 10 mg PO DAILY PRN (Reason: allergy symptoms) RF: 0 omeprazole 20 mg capsule,delayed release(DR/EC) 20 mg PO DAILY Qty: 60 RF: 0 Invokana 300 mg tablet 300 mg PO DAILY 30 Days Qty: 30 RF: 11 insulin lispro [Humalog U-100 Insulin] 100 unit/mL solution 35 unit subcut TID RF: 0 Invokana 300 mg tablet 300 mg PO QAM RF: 0 Citrucel 500 mg tablet 500 mg PO BID Qty: 60 RF: 5 polyethylene glycol 3350 [Miralax] 17 gram/dose powder 17 g PO DAILY Qty: 510 RF: 2 docusate sodium [Colace] 100 mg capsule 200 mg PO BEDTIME Qty: 60 RF: 5
[2021-03-29 07:48] LABS: MANUAL DIFF FLAG NO
[2021-03-29 07:50] LABS: Basophils Percent Auto 0.4 % (0-2); Eosinophils Absolute Auto 0.2 X10*3/uL (0.0-0.4); Eosinophils Percent Auto 2.1 % (0-4); Hemoglobin 14.7 g/dl (14.0-18.0); Imm Gran Abs Auto 0.04 X10*3/uL (0.00-0.03); Imm Gran Pct Auto 0.4 % (0.0-0.4); Lymphocytes Absolute Auto 1.8 X10*3/uL (1.2-4.9); Lymphocytes Percent Auto 19.1 % (20-40); Mean Corpuscular HGB Conc 33.4 g/dl (31.0-36.0); Mean Corpuscular Hemoglobin 29.2 pg (27.0-33.0); Mean Corpuscular Volume 87.3 fL (80-98); Mean Platelet Volume 10.5 fL (9.4-12.4); Monocytes Absolute Auto 0.9 X10*3/uL (0.1-1.2); Monocytes Percent Auto 9.4 % (2-11); Neutrophils Absolute Auto 6.4 X10*3/uL (2.0-8.3); Neutrophils Percent Auto 68.6 % (45-73); Platelet Count 261 X10*3/uL (160-400); Red Blood Count 5.04 X10*6/uL (4.60-5.80); Red Cell Distribution Width 13.2 % (11.0-16.0); White Blood Count 9.4 X10*3/uL (4.8-10.8)
[2021-03-29] MEDS: 0.9 % Sodium Chloride 500 ML 999 ML IV (07:55)
[2021-03-29] MEDS: Famotidine/PF 20 MG/2 ML VIAL IVPUSH (07:55)
[2021-03-29] MEDS: Ketorolac Tromethamine 15 MG/ML VIAL IVPUSH (07:56)
[2021-03-29] MEDS: diphenhydrAMINE HCL 50 MG/ML VIAL 25 MG IVPUSH (07:58)
[2021-03-29 07:59] VITALS: BP 150/62; PULSE 78; RESP 15; O2SAT 95
[2021-03-29] MEDS: Metoclopramide HCl 10 MG/2 ML VIAL IVPUSH (08:00)
[2021-03-29 08:15] LABS: Alanine Aminotransferase 63 U/L (0-40); Alkaline Phosphatase 81 U/L (39-117); Anion Gap 15 (12-20); Aspartate Amino Transferase 35 U/L (5-37); Bilirubin Direct 0.2 mg/dL (0.0-0.5); Bilirubin Total 0.4 mg/dL (0.0-1.0); Blood Urea Nitrogen 27 mg/dL (9-16); Carbon Dioxide 26 mmol/L (22-29); Chloride 99 mmol/L (96-108); Creatinine Clr Calc Pharmacy 56.3; Estimated Glomerular Filt Rate 52; Glucose Random 337 mg/dL (60-115); Lipase 55 U/L (8-78); Potassium 3.9 mmol/L (3.3-5.1); Sodium 136 mmol/L (135-145); Total Protein 7.3 g/dL (6.5-8.0)
[2021-03-29 08:58] VITALS: BP 145/67; PULSE 74; RESP 17; O2SAT 95
== END 2021-03-29 09:00 | disposition home or self-care (01) ==
PROVIDERS: Emergency Provider Student in an Organized Health Care Education/Training Program; PCP Internal Medicine Geriatric Medicine
DX: R51.9 Headache, unspecified (principal); I10 Essential (primary) hypertension; E11.9 Type 2 diabetes mellitus without complications
CPT/HCPCS: 36415; 70450; 80048; 80076; 83690; 85025; 96374; 96375; 99284; J1200; J1885; J2765

== ENCOUNTER 2021-04-01 10:43 | Outpatient (REF) | payer MEDICARE, MEDICAID, SELFPAY ==
--- NOTE | ~2021-04-01 | US_ITS ---
EXAMINATION: US THYROID CLINICAL INFORMATION: Nontoxic multinodular goiter. COMPARISON: CT neck 01/16/2019. Ultrasound soft tissue head/neck thyroid dated 04/03/2018 and 03/21/2014. TECHNIQUE: Linear transducer huerta-scale and color Doppler examination with attention to the region of the thyroid. FINDINGS: SIZE: Measurements of the solitary left thyroid lobe and nodules are given in sagittal, anteroposterior and transverse dimensions respectively. Right Thyroid Lobe: Surgically absent. Left Thyroid Lobe: 3.6 x 1.4 x 1.5 cm, volume 3.9 mL. Previously 4.2 x 2.2 x 1.4 cm, volume 6.9 mL. Parenchyma: The gland echotexture is heterogeneous. Thyroid vascularity is normal. Isthmus: 0.4 cm in maximum AP dimension. Previously 0.4 cm. Estimated total number of nodules greater than or equal to 1 cm: 1. [employer] nodules are described as follows: 1. Location: Left mid. Size: 1.1 x 0.7 x 1.0 cm, volume 0.4 mL. Previously: 1.1 x 1.0 x 1.1 cm, volume 0.4 mL. Nodule characteristics: Composition: Solid (2). Echogenicity: Hyperechoic (1). Shape: Not taller than wide (0). Margins: Lobulated (2). Echogenic Foci: Punctate echogenic foci (3). ACR TI-RADS total points: 8 ACR TI-RADS category: 5 Significant change in size (>/= 20% in 2 dimensions and minimal increase of 2 mm or 50% or greater increase in volume): None Change in features: None Change in ACR TI-RADS risk category: Not applicable 2. Location: Left mid. Size: 0.5 x 0.4 x 0.4 cm, volume 0.04 mL. Previously: 0.6 x 0.7 x 0.6 cm, volume 0.1 mL. Nodule characteristics: Composition: Solid (2). Echogenicity: Hyperechoic (1). Shape: Not taller than wide (0). Margins: Ill-defined (0). Echogenic Foci: Peripheral calcifications (2). ACR TI-RADS total points: 5 ACR TI-RADS category: 4 Significant change in size (>/= 20% in 2 dimensions and minimal increase of 2 mm or 50% or greater increase in volume): None Change in features: None Change in ACR TI-RADS risk category: Not applicable 3. Location: Left isthmus. Size: 0.4 x 0.4 x 0.2 cm, volume 0.009 mL. Previously: 0.6 x 0.3 x 0.4 cm, volume 0.04 mL. Nodule characteristics: Composition: Cystic(0). ACR TI-RADS total points: 0 ACR TI-RADS category: 1 Significant change in size (>/= 20% in 2 dimensions and minimal increase of 2 mm or 50% or greater increase in volume): None Change in features: None Change in ACR TI-RADS risk category: Not applicable 4. Location: Left inferior. Size: 0.5 x 0.2 x 0.5 cm, volume 0.03 mL. Previously: New since the previous study. Nodule characteristics: Composition: Solid/almost completely solid (2). Echogenicity: Hyperechoic (1). Shape: Not taller than wide (0). Margins: Smooth (0). Echogenic Foci: Peripheral calcifications (2). ACR TI-RADS total points: 5 ACR TI-RADS category: 4 NODES: No lymphadenopathy is seen in the tissue surrounding the thyroid gland. US/US thyroid IMPRESSION: Previously visualized right thyroid nodule is not seen at this time. There are at least 4 left-sided nodules with a new 4th nodule visualized measuring less than 1 cm. The largest solid nodule left mid lobe measuring 1.1 cm is stable. ACR TI-RADS RECOMMENDATION REFERENCE: Ultrasound-guided fine-needle aspiration, followup ultrasound, no further followup. * TR1 (0 point) and TR 2 (2 points): No FNA or followup. * TR3 (3 points): FNA if more than or equal to 2.5 cm in maximum dimension, followup ultrasound in 1, 3 and 5 years if 1.5 to 2.4 cm in maximum dimension. * TR4 (4-6 points): FNA if more than or equal to 1.5 cm in maximum dimension, followup ultrasound in 1, 2, 3 and 5 years if 1 to 1.4 cm in maximum dimension. * TR5 (more than or equal to 7 points): FNA if more than or equal to 1 cm in maximum dimension, followup ultrasound every year for 5 years if 0.5 to 0.9 cm in maximum dimension. * TR3, TR4 or TR5 nodules that are below the size threshold for followup receive no followup.
== END 2021-04-01 10:44 | disposition home or self-care (01) ==
LOC: HO.US 10:43
PROVIDERS: Visit Provider Internal Medicine
DX: E04.2 Nontoxic multinodular goiter (principal)
CPT/HCPCS: 76536

== ENCOUNTER 2021-04-04 03:50 | Emergency (ER) | payer MEDICARE, MEDICAID, SELFPAY ==
--- NOTE | 2021-04-04 | ECG_ITS ---
Test Reason : ABD PAIN Blood Pressure : / mmHG Vent. Rate : 076 BPM Atrial Rate : 076 BPM P-R Int : 192 ms QRS Dur : 084 ms QT Int : 376 ms P-R-T Axes : 037 008 067 degrees QTc Int : 423 ms Normal sinus rhythm Nonspecific ST and T wave abnormality Abnormal ECG No significant changes seen Referred By: Generic ED Physician Electronically Signed By:IMAN ESPINOZA MD
[2021-04-04 04:04] VITALS: BP 168/66; PULSE 77; RESP 18; TEMP 37.1; O2SAT 98; BMI 35.5
--- NOTE | 2021-04-04 04:22 | PC.NURSE ---
IV established, labs and Covid swab obtained. EKG obtained. Call alford within reach, awaiting primary MD richardson.
[2021-04-04 04:24] LABS: MANUAL DIFF FLAG NO
[2021-04-04 04:26] LABS: Basophils Absolute Auto 0.1 X10*3/uL (0.0-0.2); Basophils Percent Auto 0.6 % (0-2); Eosinophils Absolute Auto 0.1 X10*3/uL (0.0-0.4); Eosinophils Percent Auto 0.9 % (0-4); Hematocrit 47.3 % (42-52); Imm Gran Abs Auto 0.07 X10*3/uL (0.00-0.03); Imm Gran Pct Auto 0.6 % (0.0-0.4); Lymphocytes Absolute Auto 2.8 X10*3/uL (1.2-4.9); Lymphocytes Percent Auto 22.4 % (20-40); Mean Corpuscular HGB Conc 33.8 g/dl (31.0-36.0); Mean Corpuscular Hemoglobin 29.3 pg (27.0-33.0); Mean Corpuscular Volume 86.5 fL (80-98); Mean Platelet Volume 10.3 fL (9.4-12.4); Monocytes Absolute Auto 0.9 X10*3/uL (0.1-1.2); Monocytes Percent Auto 6.8 % (2-11); Neutrophils Absolute Auto 8.7 X10*3/uL (2.0-8.3); Neutrophils Percent Auto 68.7 % (45-73); Platelet Count 333 X10*3/uL (160-400); Red Blood Count 5.47 X10*6/uL (4.60-5.80); Red Cell Distribution Width 13.1 % (11.0-16.0); White Blood Count 12.7 X10*3/uL (4.8-10.8)
[2021-04-04 04:39] LABS: COVID-19 Test Negative (Negative); IDNOW Serial# 9DD0AD1C
[2021-04-04 04:43] LABS: Alanine Aminotransferase 105 U/L (0-40); Albumin Level 4.2 g/dL (3.5-5.0); Alkaline Phosphatase 76 U/L (39-117); Anion Gap 19 (12-20); Aspartate Amino Transferase 71 U/L (5-37); Bilirubin Total 0.8 mg/dL (0.0-1.0); Blood Urea Nitrogen 26 mg/dL (9-16); Calcium 10.6 mg/dL (8.4-10.2); Carbon Dioxide 23 mmol/L (22-29); Chloride 92 mmol/L (96-108); Creatinine Clr Calc Pharmacy 55.8; Estimated Glomerular Filt Rate 52; Glucose Random 314 mg/dL (60-115); Lipase 32 U/L (8-78); Potassium 3.9 mmol/L (3.3-5.1); Sodium 130 mmol/L (135-145)
[2021-04-04 04:46] LABS: Troponin-I High Sensitivity < 3.5 ng/L (<3.5-35.0)
--- NOTE | 2021-04-04 04:53 | PC.NURSE ---
at bedside for primary eval. Pt assisted to the bathroom to provide urine sample.
--- NOTE | 2021-04-04 04:56 | ED.GENADULT ---
HPI - General Adult General Chief complaint: Abdominal Pain Stated complaint: Abdominal Pain Time Seen by Provider: 04/04/21 04:40 Source: patient Mode of arrival: ambulatory Limitations: no limitations History of Present Illness HPI narrative: Patient comes emergency room complaining of 1 week of generalized malaise. Patient states that 2 weeks he had his flu shot, did well for 1 week, then patient started complaining of epigastric burning sensation, fatigue, unable to tolerate p.o. patient denies fever or chills, no diarrhea, complaining of constipation. Related Data Home Medications Medication Instructions Recorded Confirmed alcohol swabs 1 pad TOPICAL PRN 05/07/20 03/25/21 amlodipine 5 mg tablet 5 mg PO QAM 05/07/20 03/25/21 aspirin 81 mg tablet,delayed 81 mg PO DAILY 05/07/20 03/25/21 release blood sugar diagnostic #10 ea 05/07/20 03/19/21 chlorthalidone 50 mg tablet 50 mg PO QAM 05/07/20 03/25/21 gabapentin 100 mg capsule 100 mg PO BEDTIME 05/07/20 03/19/21 insulin syringe-needle U-100 1 mL #10 ea 05/07/20 03/19/21 29 gauge x 1/2 spironolactone 25 mg tablet 25 mg PO QAM 05/07/20 03/25/21 tamsulosin 0.4 mg capsule 0.4 mg PO BEDTIME 05/07/20 03/25/21 verapamil 120 mg tablet,extended 120 mg PO DAILY 05/07/20 03/25/21 release cetirizine 10 mg tablet 10 mg PO DAILY PRN tab 08/21/20 03/19/21 insulin lispro 100 unit/mL 35 unit SUBCUT TID ml 11/27/20 03/19/21 subcutaneous solution (Humalog U-100 Insulin) canagliflozin 300 mg tablet 300 mg PO QAM 03/25/21 03/25/21 (Invokana) Previous Rx's Medication Instructions Recorded liraglutide 0.6 mg/0.1 mL (18 mg/3 1.8 mg SUBCUT DAILY #9 ml 06/16/20 mL) subcutaneous pen injector (Victoza 3-Beto) metformin 1,000 mg tablet 1,000 mg PO BID #60 tab 06/23/20 mupirocin 2 % topical ointment 1 appl TOPICAL BID 7 Days #15 g 02/18/21 pen needle, diabetic 32 gauge x 1 ea MISCELLANEOUS QID 30 Days 08/11/20 (Pentips) #100 ea canagliflozin 300 mg tablet 300 mg PO DAILY 30 Days #30 tab 08/21/20 (Invokana) insulin glargine 100 unit/mL 65 unit SUBCUT BEDTIME 30 Days 01/04/21 subcutaneous solution #19.5 ml atorvastatin 40 mg tablet 40 mg PO DAILY 30 Days #30 tab 01/28/21 pen needle, diabetic 32 gauge x #125 ea 03/02/21 (BD Ultra-Fine Marry Pen Needle) omeprazole 20 mg capsule,delayed 20 mg PO DAILY #60 cap 03/19/21 release docusate sodium 100 mg capsule 200 mg PO BEDTIME #60 cap 03/25/21 (Colace) methylcellulose (laxative) 500 mg 500 mg PO BID #60 tab 03/25/21 tablet (Citrucel) polyethylene glycol 3350 17 17 g PO DAILY #510 g 03/25/21 gram/dose oral powder (Miralax) omeprazole 20 mg capsule,delayed 20 mg PO DAILY #14 cap 04/04/21 release ondansetron HCl 4 mg tablet 4 mg PO Q6H PRN #10 tab 04/04/21 (Zofran) Allergies Allergy/AdvReac Type Severity Reaction Status Date / Time lisinopril [LISINOPRIL] Allergy Severe ANGIOEDEMA Verified 04/04/21 04:09 prednisone [PREDNISONE] Allergy Mild ITCHY Verified 04/04/21 04:09 Review of Systems Review of Systems: Constitutional : No Weight loss, No Fever, No Chills, No Night Sweats, complaining of fatigue and generalized malaise ENT/Mouth : No Hearing loss, No Ear Pain, No Nasal Congestion, No Sinus Pain, No Hoarseness, No sore throat, No Rhinorrhea, No Swallowing Difficulty Eyes: No Eye Pain, No Swelling, No Redness, No Foreign Body, No Discharge, No Vision Changes Cardiovascular : No Chest Pain, No SOB, No Dyspnea on Exertion, No Orthopnea, No Edema, No Palpitations Respiratory : No Cough, No Sputum, No Wheezing, No Smoke Exposure, No Dyspnea Gastrointestinal : Complaining of nausea and vomiting, worsened by p.o. intake No Diarrhea, No Constipation, complaining of epigastric pain radiating towards the esophagus, burning sensation, No Hematochezia, No Melena Genitourinary : no irregular bleeding, No Dysuria, No Urinary Frequency, No Hematuria, No Urinary Incontinence, No Urgency, No Flank Pain, No Urinary Flow Changes, No Hesitancy Musculoskeletal : No joint pain, No Myalgias, No Joint Swelling Skin : No Skin Lesions, No rash Neuro : No Weakness, No Numbness, No Paresthesias, No Loss of Consciousness, No Dizziness, No Headache Psych : No Anxiety/Panic, No Depression, No SI/HI/AH/VH, No Social Issues, Heme/Lymph: No Bruising, No Bleeding,No Lymphadenopathy Endocrine : No Polyuria, No Polydipsia, No Temperature Intolerance [facility] Past Medical History Medical History Basal cell carcinoma (BCC) Familial hypocalciuric hypercalcemia Heart murmur HLD (hyperlipidemia) HTN (hypertension) Multinodular thyroid Skin lesion of left lower extremity T2DM (type 2 diabetes mellitus) Transaminitis Vitamin D deficiency Surgical History Hx of appendectomy Hx of cholecystectomy Hx of colonoscopy Hx of esophagogastroduodenoscopy Hx of melanoma excision Family History Family History Father CVD (cardiovascular disease) Diabetes Brother CVD (cardiovascular disease) Diabetes FH: heart attack Social History Social History Household Members: Family Alcohol intake: unknown Patient Tobacco Use Status: Never used Tobacco Advance Directives: No Physical Exam Vital Signs: Vital Signs: Last Vital Signs Temp 98.7 F 04/04/21 04:04 Pulse 71 04/04/21 06:16 Resp 16 04/04/21 06:16 BP 147/67 H 04/04/21 06:16 Pulse Ox 98 04/04/21 06:16 Body Mass Index 35.5 Const: Other: Appearance: Alert. Oriented X3. No acute distress. Eyes: Pupils equal, round and reactive to light. ENT: Pharynx normal. Hoarse voice is at baseline for the last 2 years Neck: Normal inspection. Neck supple. No lymph nodes noted. No crepitus CVS: Normal heart rate and rhythm. Pulses normal. Normal S1 and S2 Respiratory: No respiratory distress. Breath sounds normal. No Wheezing. No rales Abdomen: Soft, does not seem to have any tenderness to deep palpation in all quadrants, No rigidity. No distention Skin: Skin warm and dry. Normal skin color. Normal skin turgor. Extremities: No lower extremity edema. No Lacerations. No Rash Neuro: Oriented X 3. No motor deficit. No sensory deficit. Moving all extermities. No slurred speech. Course Course Course Narrative: I discussed the labs with the patient, unclear reason why patient has an leukocytosis. Likely viral syndrome. Patient was p.o. challenge, was able to eat and drink. Patient blood glucose prior to discharge improved to 212. Medical Decision Making Lab Data Result diagrams: 04/04/21 04:17 04/04/21 04:17 Labs: Lab Results 04/04/21 04/04/21 04/04/21 Range/Units 04:17 04:17 04:17 WBC 12.7 H (4.8-10.8) X10*3/uL RBC 5.47 (4.60-5.80) X10*6/uL Hgb 16.0 (14.0-18.0) g/dl Hct 47.3 (42-52) % MCV 86.5 (80-98) fL MCH 29.3 (27.0-33.0) pg MCHC 33.8 (31.0-36.0) g/dl RDW 13.1 (11.0-16.0) % Plt Count 333 D (160-400) X10*3/uL MPV 10.3 (9.4-12.4) fL Immature Gran % (Auto) 0.6 H (0.0-0.4) % Neut % (Auto) 68.7 (45-73) % Lymph % (Auto) 22.4 (20-40) % Linn % (Auto) 6.8 (2-11) % Eos % (Auto) 0.9 (0-4) % Baso % (Auto) 0.6 (0-2) % Lymph # (Auto) 2.8 (1.2-4.9) X10*3/uL Linn # (Auto) 0.9 (0.1-1.2) X10*3/uL Eos # (Auto) 0.1 (0.0-0.4) X10*3/uL Baso # (Auto) 0.1 (0.0-0.2) X10*3/uL Abs Immat Gran (auto) 0.07 H (0.00-0.03) X10*3/uL Absolute Neuts (auto) 8.7 H (2.0-8.3) X10*3/uL Absolute Nucleated RBC 0.000 (0.0-0.012) X10*3/uL Nucleated RBC % (auto) 0.0 (0.0-0.2) /100WBC Sodium 130 L (135-145) mmol/L Potassium 3.9 (3.3-5.1) mmol/L Chloride 92 L (96-108) mmol/L Carbon Dioxide 23 (22-29) mmol/L Anion Gap 19 (12-20) BUN 26 H (9-16) mg/dL Creatinine 1.36 (0.5-1.4) mg/dL Estim Creat Clear Calc 55.8 Estimated GFR 52 POC Glucose (60-115) mg/dL Random Glucose 314 H (60-115) mg/dL Calcium 10.6 H (8.4-10.2) mg/dL Total Bilirubin 0.8 (0.0-1.0) mg/dL AST 71 H (5-37) U/L ALT 105 H (0-40) U/L Alkaline Phosphatase 76 (39-117) U/L Troponin I High Sens < 3.5 (<3.5-35.0) ng/L Total Protein 8.0 (6.5-8.0) g/dL Albumin 4.2 (3.5-5.0) g/dL Lipase 32 (8-78) U/L Urine Color Urine Appearance Urine pH (5.0-8.0) Ur Specific [place] (1.005-1.025) Urine Protein (NEG-TRACE) MG/DL Urine Glucose (UA) (NEG) MG/DL Urine Ketones (NEG) MG/DL Urine Blood (NEG) Urine Nitrite (NEG) Ur Leukocyte Esterase (NEG) Urine RBC (0) /HPF Urine WBC (0-4) /HPF Ur Squamous Epith Cells /LPF Ur Renal Epithelial Cell /LPF Urine Bacteria /LPF Urine Mucus /LPF COVID-19 (VIKTORIYA) (Negative) COVID-19 Clin Com 04/04/21 04/04/21 04/04/21 Range/Units 04:17 04:58 06:15 WBC (4.8-10.8) X10*3/uL RBC (4.60-5.80) X10*6/uL Hgb (14.0-18.0) g/dl Hct (42-52) % MCV (80-98) fL MCH (27.0-33.0) pg MCHC (31.0-36.0) g/dl RDW (11.0-16.0) % Plt Count (160-400) X10*3/uL MPV (9.4-12.4) fL Immature Gran % (Auto) (0.0-0.4) % Neut % (Auto) (45-73) % Lymph % (Auto) (20-40) % Linn % (Auto) (2-11) % Eos % (Auto) (0-4) % Baso % (Auto) (0-2) % Lymph # (Auto) (1.2-4.9) X10*3/uL Linn # (Auto) (0.1-1.2) X10*3/uL Eos # (Auto) (0.0-0.4) X10*3/uL Baso # (Auto) (0.0-0.2) X10*3/uL Abs Immat Gran (auto) (0.00-0.03) X10*3/uL Absolute Neuts (auto) (2.0-8.3) X10*3/uL Absolute Nucleated RBC (0.0-0.012) X10*3/uL Nucleated RBC % (auto) (0.0-0.2) /100WBC Sodium (135-145) mmol/L Potassium (3.3-5.1) mmol/L Chloride (96-108) mmol/L Carbon Dioxide (22-29) mmol/L Anion Gap (12-20) BUN (9-16) mg/dL Creatinine (0.5-1.4) mg/dL Estim Creat Clear Calc Estimated GFR POC Glucose 212 H (60-115) mg/dL Random Glucose (60-115) mg/dL Calcium (8.4-10.2) mg/dL Total Bilirubin (0.0-1.0) mg/dL AST (5-37) U/L ALT (0-40) U/L Alkaline Phosphatase (39-117) U/L Troponin I High Sens (<3.5-35.0) ng/L Total Protein (6.5-8.0) g/dL Albumin (3.5-5.0) g/dL Lipase (8-78) U/L Urine Color YELLOW Urine Appearance CLEAR Urine pH 6.0 (5.0-8.0) Ur Specific [place] 1.010 (1.005-1.025) Urine Protein NEG (NEG-TRACE) MG/DL Urine Glucose (UA) >=1000 H (NEG) MG/DL Urine Ketones NEG (NEG) MG/DL Urine Blood NEG (NEG) Urine Nitrite NEG (NEG) Ur Leukocyte Esterase NEG (NEG) Urine RBC 0-2 (0) /HPF Urine WBC 0-2 (0-4) /HPF Ur Squamous Epith Cells TRACE /LPF Ur Renal Epithelial Cell TRACE /LPF Urine Bacteria NONE /LPF Urine Mucus TRACE /LPF COVID-19 (VIKTORIYA) Negative (Negative) COVID-19 Clin Com See Note Discharge Plan Discharge Clinical Impression: Acute viral syndrome Patient Disposition: Home, Self-Care Instructions: Viral Syndrome (ED) Additional Instructions: Please follow-up with your primary care physician tomorrow. If you have any worsening or new symptoms, please return to the emergency room or call 911 Prescriptions: New ondansetron HCl [Zofran] 4 mg tablet 4 mg PO Q6H PRN (Reason: nausea and vomiting) Qty: 10 RF: 0 omeprazole 20 mg capsule,delayed release(DR/EC) 20 mg PO DAILY Qty: 14 RF: 0 No Action liraglutide [Victoza 3-Beto] 0.6 mg/0.1 mL (18 mg/3 mL) pen injector 1.8 mg subcut DAILY Qty: 9 RF: 11 metformin 1,000 mg tablet 1,000 mg PO BID Qty: 60 RF: 11 pen needle, diabetic [Pentips] 32 gauge x 5/32 needle 1 ea miscellaneous QID 30 Days Qty: 100 RF: 11 insulin glargine 100 unit/mL solution 65 unit subcut BEDTIME 30 Days Qty: 19.5 RF: 11 atorvastatin 40 mg tablet 40 mg PO DAILY 30 Days Qty: 30 RF: 11 (DME) pen needle, diabetic [BD Ultra-Fine Marry Pen Needle] 32 gauge x 5/32 needle See Rx Instructions .ROUTE .MEDSUPPLY Qty: 125 RF: 11 mupirocin 2 % ointment 1 appl topical BID 7 Days Qty: 15 RF: 0 amlodipine 5 mg tablet 5 mg PO QAM RF: 0 gabapentin 100 mg capsule 100 mg PO BEDTIME RF: 0 aspirin 81 mg tablet,delayed release (DR/EC) 81 mg PO DAILY RF: 0 (DME) insulin syringe-needle U-100 1 mL 29 gauge x 1/2 syringe See Rx Instructions ea .ROUTE QID Qty: 10 RF: 0 alcohol swabs Pads, Medicated 1 pad topical PRNRF: 0 chlorthalidone 50 mg tablet 50 mg PO QAM RF: 0 tamsulosin 0.4 mg capsule 0.4 mg PO BEDTIME RF: 0 verapamil 120 mg tablet extended release 120 mg PO DAILY RF: 0 (DME) OneTouch Ultra Blue Test Strip Strip See Rx Instructions ea Not Applicable TID Qty: 10 RF: 0 spironolactone 25 mg tablet 25 mg PO QAM RF: 0 cetirizine 10 mg tablet 10 mg PO DAILY PRN (Reason: allergy symptoms) RF: 0 omeprazole 20 mg capsule,delayed release(DR/EC) 20 mg PO DAILY Qty: 60 RF: 0 Invokana 300 mg tablet 300 mg PO DAILY 30 Days Qty: 30 RF: 11 insulin lispro [Humalog U-100 Insulin] 100 unit/mL solution 35 unit subcut TID RF: 0 Invokana 300 mg tablet 300 mg PO QAM RF: 0 Citrucel 500 mg tablet 500 mg PO BID Qty: 60 RF: 5 polyethylene glycol 3350 [Miralax] 17 gram/dose powder 17 g PO DAILY Qty: 510 RF: 2 docusate sodium [Colace] 100 mg capsule 200 mg PO BEDTIME Qty: 60 RF: 5
[2021-04-04 05:03] LABS: Appearance Urine CLEAR; Color Urine YELLOW; Glucose Urine UA >=1000 MG/DL (NEG); Leukocyte Esterase Urine NEG (NEG); Nitrite Urine NEG (NEG); Urine Blood NEG (NEG); Urine Ketones NEG (NEG); Urine Protein NEG (NEG-TRACE)
[2021-04-04] MEDS: ondansetron HCL 4 MG/2 ML VIAL IVPUSH (05:11)
[2021-04-04] MEDS: 0.9 % Sodium Chloride 1,000 ML 999 ML IVCONT (05:11)
[2021-04-04 05:13] LABS: Mucus Urine TRACE /LPF; RBC Urine 0-2 /HPF (0); Renal Epithelial Cells Urine TRACE /LPF; Squamous Epithelial Cell Urine TRACE /LPF; WBC Urine 0-2 /HPF (0-4)
--- NOTE | 2021-04-04 05:24 | PC.NURSE ---
Pt medicated per MAR.
[2021-04-04] MEDS: Magnesium Hydrox/Alum Hydrox 30 ML ORAL.SUSP PO (05:32)
[2021-04-04] MEDS: Lidocaine HCl Viscous 2 % 15 ML SOLUTION MUCOUS MEM (05:32)
[2021-04-04] MEDS: Insulin Regular, Human 100 UNIT/ML 3 ML VIAL IVPUSH (05:32)
[2021-04-04 06:16] VITALS: BP 147/67; PULSE 71; RESP 16; O2SAT 98
--- NOTE | 2021-04-04 06:18 | PC.NURSE ---
Repeat POC, 212 mg/dl. VSS.
[2021-04-04 06:20] LABS: Glucose, Whole Blood 212 mg/dL (60-115)
[2021-04-04 07:39] VITALS: BP 146/73; PULSE 74; RESP 16; O2SAT 97
[2021-04-04 07:59] VITALS: TEMP 36.4
--- NOTE | 2021-04-04 08:22 | PC.NURSE ---
pt medically cleared for discharge. discharge summary given and explained to pt. pt reports understanding of information. vss.
== END 2021-04-04 08:23 | disposition home or self-care (01) ==
PROVIDERS: Emergency Provider Emergency Medicine; PCP Internal Medicine Geriatric Medicine
DX: B34.9 Viral infection, unspecified (principal); Z20.822 Contact with and (suspected) exposure to COVID-19; Z79.899 Other long term (current) drug therapy
CPT/HCPCS: 36415; 80053; 81001; 82947; 83690; 84484; 85025; 87635; 93005; 96361; 96374; 96375; 99284; J2405

== ENCOUNTER 2021-04-16 08:48 | Outpatient (REF) | payer MEDICARE, MEDICAID, SELFPAY ==
--- NOTE | ~2021-04-16 | US_ITS ---
EXAMINATION: US COMPLETE ABDOMEN WITH LIVER ELASTOGRAPHY CLINICAL INFORMATION: Elevated liver function tests COMPARISON: Previous CT of the abdomen and pelvis February 2020 TECHNIQUE: Real-time imaging of the abdominal viscera. Noninvasive ultrasound liver fibrosis assessment is performed using Giovanni ElastPQ point quantification shear wave elastography (pSWE) with a C5-2 MHz transducer. Multiple elastography samples are obtained. FINDINGS: PANCREAS: Not well visualized due to bowel gas ABDOMINAL AORTA: Not well visualized due to bowel gas INFERIOR VENA CAVA: Not well visualized due to bowel gas. LIVER: Liver echotexture is increased. The liver is normal in contour. No focal lesion or intrahepatic biliary duct dilatation. Liver slightly enlarged. The right lobe measures 17.5 cm in length. The left lobe measures 13.6 cm in length. Portal flow is normal/hepatopedal Shear wave liver elastography median stiffness is 1.3 m/s (reference: normal median stiffness is 1.3 m/s or less). IQR/median stiffness to assess sampling precision is 0.2 (reference: good quality data set is IQR/median stiffness of 0.15 or less). GALLBLADDER: The gallbladder is been removed. COMMON BILE DUCT: Normal in caliber measuring 0.6 cm in diameter. RIGHT KIDNEY: There is a 1.5 cm cyst in the midpole. No hydronephrosis. No renal calculi or focal parenchymal lesions. The kidney measures 12 cm in maximum dimension. LEFT KIDNEY: Normal. No hydronephrosis. No renal calculi or focal parenchymal lesions. The kidney measures 12 cm in maximum dimension. SPLEEN: Normal. The spleen measures 12 cm in maximum dimension. FREE FLUID: None. US/US abdomen comp w elastography IMPRESSION: 1. Impression: Slightly enlarged echogenic liver probably representing fatty infiltration. Right renal cyst. Limited visualization of the pancreas, aorta and IVC. 2. Liver elastography: Slightly limited due to sampling error. Normal liver stiffness. REFERENCE: Society of Radiologists in Ultrasound Liver Stiffness Thresholds (2020): LIVER STIFFNESS THRESHOLDS: *Liver Stiffness equal or less than 1.3 m/s: High probability of being normal. *Liver Stiffness less than 1.7 m/s: In the absence of other known clinical signs, rules out compensated advanced chronic liver disease. *Liver Stiffness 1.7-2.1 m/s: Suggestive of compensated advanced chronic liver disease but need further test for confirmation. *Liver Stiffness over 2.1 m/s: Rules in compensated advanced chronic liver disease. *Liver Stiffness over 2.4 m/s: Suggestive of clinically significant portal hypertension. QUALITY OF DATA SET: *IQR/Median value equal or less than 0.15 implies a quality data set. *IQR/Median value over 0.15 implies a poor quality data set. SIGNIFICANT CHANGE FROM PRIOR EXAM: Significant change if liver stiffness measurement is 10% or greater from prior exam. OTHER CONSIDERATIONS: The stage of liver fibrosis may be overestimated in the setting of acute hepatitis, liver inflammation, elevated liver function tests, hepatic vascular congestion, obstructive cholestasis, non-fasting state, and infiltrative diseases such as amyloidosis and lymphoma. In some patients with NAFLD, the liver stiffness thresholds for compensated advanced chronic liver disease may be lower. In causes other than viral hepatitis and NAFLD, liver stiffness thresholds are not well established.
== END 2021-04-16 08:49 | disposition home or self-care (01) ==
LOC: HO.US 08:48
PROVIDERS: PCP Internal Medicine Geriatric Medicine; Visit Provider Physician Assistant
DX: R74.01 Elevation of levels of liver transaminase levels (principal)
CPT/HCPCS: 76705; 76981

== ENCOUNTER 2021-04-27 08:36 | Outpatient (REF) | payer MEDICARE, MEDICAID, SELFPAY | END 2021-04-27 08:37 | disposition home or self-care (01) | LOC: HO.LAB 08:36 | PROVIDERS: PCP Internal Medicine Geriatric Medicine; Visit Provider Internal Medicine | DX: Z20.822 Contact with and (suspected) exposure to COVID-19 (principal) | CPT/HCPCS: C9803; U0003; U0005 ==

== ENCOUNTER → 2021-05-21 09:13 | Outpatient (BNVA) | payer MEDICARE, MEDICAID, SELFPAY | PROVIDERS: PCP Internal Medicine Geriatric Medicine; Visit Provider Surgery Vascular Surgery | DX: I83.11 Varicose veins of right lower extremity with inflammation (principal) | CPT/HCPCS: 99202 ==

== ENCOUNTER 2021-06-10 14:08 | Outpatient (REF) | payer MEDICARE, MEDICAID, SELFPAY ==
--- NOTE | ~2021-06-10 | US_ITS ---
EXAMINATION: BILATERAL LOWER EXTREMITY VENOUS ULTRASOUND (REFLUX EXAM) CLINICAL INDICATION: Bilateral lower extremity varicose veins. COMPARISON: Bilateral lower extremity venous Doppler ultrasound on 04/27/2018 TECHNIQUE: Color flow triplex imaging and compression Doppler was performed to evaluate both the deep and the superficial systems bilaterally. To evaluate the superficial system, the examination was performed in the upright position. Color-flow Doppler ultrasound and compression ultrasound were utilized. In addition, maneuvers were utilized to demonstrate reflux. FINDINGS: SUPERFICIAL ULTRASOUND WITH DOPPLER OF RIGHT LOWER EXTREMITY GREAT SAPHENOUS VEIN: Saphenofemoral junction: 0.7 cm Max diameter: 0.7 cm Min diameter: 0.2cm Reflux: No evidence of reflux. DUPLICATED MEDIAL GREAT SAPHENOUS VEIN: Max Diameter: None imaged Reflux: NA DUPLICATED LATERAL GREAT SAPHENOUS VEIN: Diameter: None imaged Reflux: NA SMALL SAPHENOUS VEIN: Proximal Calf: 0.3 cm Distal Calf: 0.2 cm Reflux: No evidence of reflux. VEIN OF GIACOMINI: None imaged. PERFORATORS: Location: Midthigh and below the knee measuring 2 mm each Reflux: None VARICOSITIES: Location: None imaged Reflux: NA DEEP VENOUS ULTRASOUND OF THE RIGHT LOWER EXTREMITY: Common Femoral Vein: Compressible, normal respiratory variation and augmented flow. Femoral vein: Compressible, normal color flow and augmentation. Popliteal Vein: Compressible, normal augmentation. Deep Reflux: There is no evidence of reflux in the deep system in either the common femoral vein or the popliteal vein. Son's Cyst: There is no evidence of a Son's cyst. SUPERFICIAL ULTRASOUND WITH DOPPLER OF LEFT LOWER EXTREMITY GREAT SAPHENOUS VEIN: Saphenofemoral junction: 0.4 cm Max diameter: 0.4 cm Min diameter: 0.2 cm Reflux: No evidence of reflux. DUPLICATED MEDIAL GREAT SAPHENOUS VEIN: Max Diameter: None imaged Reflux: NA DUPLICATED LATERAL GREAT SAPHENOUS VEIN: Diameter: None imaged Reflux: NA SMALL SAPHENOUS VEIN: Proximal Calf: 0.1 cm Distal Calf: 0.2 cm Reflux: No evidence of reflux. VEIN OF GIACOMINI: None imaged. PERFORATORS: Location: None imaged Reflux: NA VARICOSITIES: Location: Few varicosities within the distal thigh and below knee which measure less than 3 mm. Reflux: None DEEP VENOUS ULTRASOUND OF THE LEFT LOWER EXTREMITY: Common Femoral Vein: Compressible, normal respiratory variation and augmented flow. Femoral vein: Compressible, normal color flow and augmentation. Popliteal Vein: Compressible, normal augmentation. Deep Reflux: There is no evidence of reflux in the deep system in either the common femoral vein or the popliteal vein. Son's Cyst: There is no evidence of a Son's cyst. US/US venous duplex LE BI IMPRESSION: 1. No evidence of great saphenous or small saphenous venous insufficiency. 2. Small nonrefluxing varicosities identified at the right midthigh and below the knee. 3. No evidence of DVT or deep venous insufficiency.
== END 2021-06-10 14:09 | disposition home or self-care (01) ==
LOC: HO.US 14:08
PROVIDERS: PCP Internal Medicine Geriatric Medicine; Visit Provider Surgery Vascular Surgery
DX: I83.11 Varicose veins of right lower extremity with inflammation (principal)
CPT/HCPCS: 93970

== ENCOUNTER → 2021-06-18 10:58 | Outpatient (BNVA) | payer MEDICARE, MEDICAID, SELFPAY | PROVIDERS: PCP Internal Medicine Geriatric Medicine; Visit Provider Surgery Vascular Surgery | DX: I83.11 Varicose veins of right lower extremity with inflammation (principal); I73.9 Peripheral vascular disease, unspecified | CPT/HCPCS: 99212 ==

== ENCOUNTER 2021-07-07 14:32 | Outpatient (REF) | payer MEDICARE, MEDICAID, SELFPAY ==
--- NOTE | ~2021-07-07 | US_ITS ---
EXAMINATION: NONINVASIVE ASSESSMENT OF THE ARTERIES OF BOTH LOWER EXTREMITIES TO INCLUDE A PVR EXAM LIMITED (1-2 LEVELS) AND BELEN, BILATERAL ? [place] Ramos M.D. CLINICAL INFORMATION: Peripheral vascular disease COMPARISON: 11/14/2014 TECHNIQUE: The ankle/brachial indices of the distal posterior tibial and the dorsalis pedis arteries were obtained of the lower extremity arterial system bilaterally; along with pressures and pulse volume recordings at the ankle and duplex Doppler techniques of the common femoral, proximal femoral and proximal profunda arteries. The study was performed at rest. ? FINDINGS AT REST:? RIGHT LE. THE RIGHT ANKLE-BRACHIAL INDEX IS: 1.05 (higher of the DP/PT) >0.97-1.25 = normal - no significant arterial disease 0.75-0.96 = mild peripheral arterial disease 0.50-0.74 = moderate peripheral arterial disease <0.50 = severe peripheral arterial disease <0.30 = critical arterial disease 2. SEGMENTAL PRESSURES: Ankle: PT 200 DP 200 3. PVR WAVEFORMS: Ankle: Within normal limits 4. DIRECT DUPLEX: There is atherosclerotic plaque throughout the right lower extremity. There is biphasic flow with preserved diastolic flow reversal throughout the right lower extremity. Velocity measurements are elevated in the mid SFA and distal SFA measuring 208 cm/s and 380 cm/s respectively. LEFT LE. THE LEFT ANKLE-BRACHIAL INDEX IS: 1.06 (higher of the DP/PT) >0.97-1.25 = normal - no significant arterial disease 0.75-0.96 = mild peripheral arterial disease 0.50-0.74 = moderate peripheral arterial disease <0.50 = severe peripheral arterial disease <0.30 = critical arterial disease 2. SEGMENTAL PRESSURES: Ankle: PT 200 DP 202 3. PVR WAVEFORMS: Ankle: Within normal limits 4. DIRECT DUPLEX: There is atherosclerotic plaque throughout the left lower extremity. There is normal triphasic and biphasic flow in the left lower extremity with preserved diastolic flow reversal. There are elevated velocity measurements in the common femoral artery measuring 206 cm/s. US/US arterial duplex LE BI IMPRESSION: There is atherosclerotic plaque throughout both lower extremities. Normal diastolic flow reversal is preserved bilaterally. Elevated velocities suggest moderate peripheral vascular disease in both lower extremities as described above. The ankle brachial indices are within normal limits however, these may be elevated due to noncompressible vessels at the ankle.
== END 2021-07-07 14:33 | disposition home or self-care (01) ==
LOC: HO.US 14:32
PROVIDERS: PCP Internal Medicine Geriatric Medicine; Visit Provider Surgery Vascular Surgery
DX: I73.9 Peripheral vascular disease, unspecified (principal)
CPT/HCPCS: 93923; 93925

== ENCOUNTER → 2021-07-16 09:45 | Outpatient (BNVA) | payer MEDICARE, MEDICAID, SELFPAY | PROVIDERS: PCP Internal Medicine Geriatric Medicine; Visit Provider Surgery Vascular Surgery | DX: M79.604 Pain in right leg (principal); M79.605 Pain in left leg | CPT/HCPCS: 99212 ==

== ENCOUNTER → 2021-07-22 09:38 | Outpatient (BNVA) | payer MEDICARE, MEDICAID, SELFPAY | PROVIDERS: PCP Internal Medicine Geriatric Medicine; Referring Provider Internal Medicine Geriatric Medicine; Visit Provider Physician Assistant | DX: K59.09 Other constipation (principal); K76.0 Fatty (change of) liver, not elsewhere classified | CPT/HCPCS: 99212 ==

== ENCOUNTER 2021-08-07 08:11 | Outpatient (REF) | payer MEDICARE, MEDICAID, SELFPAY ==
[2021-08-07 09:04] LABS: Estimated Average Glucose 232 mg/dL; Hemoglobin A1c % 9.7 %
[2021-08-07 09:23] LABS: Alanine Aminotransferase 51 U/L (0-40); Alkaline Phosphatase 74 U/L (39-117); Anion Gap 18 (12-20); Aspartate Amino Transferase 25 U/L (5-37); Bilirubin Direct 0.2 mg/dL (0.0-0.5); Bilirubin Total 0.5 mg/dL (0.0-1.0); Blood Urea Nitrogen 28 mg/dL (9-16); Calcium 10.4 mg/dL (8.4-10.2); Carbon Dioxide 24 mmol/L (22-29); Chloride 98 mmol/L (96-108); Estimated Glomerular Filt Rate 52; Glucose Random 294 mg/dL (60-115); Sodium 136 mmol/L (135-145); Total Protein 7.4 g/dL (6.5-8.0)
[2021-08-07 09:39] LABS: HBS Num1 0.04 mIU/mL (0-7.99); HBc Num1 0.09 S/CO (0.00-0.79); HBsAGNum1 0.21 S/CO (0.00-0.99); Hepatitis A Antibody IgM 0.28 Index (0-0.79); Hepatitis B Core Antibody Nonreactive (Nonreactive); Hepatitis B Surface Antigen Negative (Negative); ~HepC Num1 0.08 S/CO (0.00-0.79); ~Hepatitis A Antibody IgM Nonreactive (Nonreactive); ~Hepatitis B Surface Antibody NONREACTIVE (Nonreactive); ~Hepatitis C Antibody Nonreactive (Nonreactive)
[2021-08-07 09:41] LABS: Free T4 (Free Thyroxine) 0.72 ng/dL (0.71-1.85)
[2021-08-07 09:44] LABS: Thyroid Stimulating Hormone 1.65 uIU/mL (0.32-4.0)
[2021-08-08 14:22] LABS: Anti Nuclear Antibody Screen NEGATIVE (NEGATIVE)
[2021-08-11 15:06] LABS: Mitochondrial Antibodies NEGATIVE (NEGATIVE)
[2021-08-12 00:16] LABS: Smooth Muscle Antibody <20 U (<20)
== END 2021-08-07 08:12 | disposition home or self-care (01) ==
LOC: HO.LAB 08:11
PROVIDERS: Physician Assistant; PCP Internal Medicine Geriatric Medicine; Visit Provider Internal Medicine
DX: R10.11 Right upper quadrant pain (principal); R74.01 Elevation of levels of liver transaminase levels; R79.89 Other specified abnormal findings of blood chemistry; R74.8 Abnormal levels of other serum enzymes; E11.65 Type 2 diabetes mellitus with hyperglycemia; Z79.4 Long term (current) use of insulin; E55.9 Vitamin D deficiency, unspecified; E04.2 Nontoxic multinodular goiter
CPT/HCPCS: 36415; 80053; 80076; 82248; 82306; 83036; 84439; 84443; 86015; 86038; 86039; 86255; 86256; 86704; 86706; 86709; 86803; 87340

== ENCOUNTER → 2021-08-12 08:03 | Outpatient (BNVA) | payer MEDICARE, MEDICAID, SELFPAY | PROVIDERS: PCP Internal Medicine Geriatric Medicine; Visit Provider Internal Medicine | DX: E11.65 Type 2 diabetes mellitus with hyperglycemia (principal); E04.2 Nontoxic multinodular goiter; E55.9 Vitamin D deficiency, unspecified; E78.5 Hyperlipidemia, unspecified; E83.52 Hypercalcemia; I10 Essential (primary) hypertension; Z79.4 Long term (current) use of insulin | CPT/HCPCS: 82947; 99212 ==

== ENCOUNTER 2021-09-02 12:45 | Outpatient (REF) | payer MEDICARE, MEDICAID, SELFPAY ==
--- NOTE | ~2021-09-02 | CT_ITS ---
EXAMINATION: CT SOFT TISSUE NECK WITHOUT CONTRAST CLINICAL INFORMATION: Nontoxic multinodular goiter. COMPARISON: Neck CT from 01/16/2019. TECHNIQUE: Helical imaging was performed in the axial plane with generation of coronal and sagittal reformatted images. This CT examination was performed using dose optimization techniques as appropriate, variously including the following: *Automated exposure control *Adjustment of mA and/or kV according to patient size (this includes techniques or standardized protocols for targeted exams where dose is matched to indication/reason for exam; i.e. extremities or head) *Use of iterative reconstruction technique DLP: 402 mGy-cm FINDINGS: The patient has had a prior hemithyroidectomy on the right side with surgical clips in the operative bed. Multinodular residual thyroid tissue noted on the left side with scattered glandular calcifications, as on prior imaging. No pathologically enlarged cervical lymph nodes are visible. The parotid and submandibular glands appear normal. No contour abnormality evident within the oral cavity, pharyngeal mucosal space, or larynx. The airway is normally maintained. Dental caries and periapical disease affects multiple teeth with additional periodontal lucencies. The TMJs are normal. The paranasal sinuses, middle ear cavities, and mastoid air cells are fairly well aerated. No acute osseous abnormality otherwise seen. Aside from mild atherosclerotic wall calcifications in the thoracic aorta and at the origins of the great vessels, the imaged mediastinum appears normal. The visualized portions of the lungs are relatively clear with mild subsegmental atelectatic changes. The craniovertebral junction appears normal. The imaged portions of the brain demonstrate no acute abnormality. The patient is status post bilateral lens extractions. CT/CT soft tissue neck wo con IMPRESSION: No acute abnormality on this limited noncontrast study, status post a prior right-sided hemithyroidectomy. Residual mild multinodular left thyroid tissue with scattered glandular calcifications. No cervical adenopathy. Extensive dental disease.
== END 2021-09-02 12:46 | disposition home or self-care (01) ==
LOC: HO.CT 12:45
PROVIDERS: Visit Provider Internal Medicine
DX: E04.2 Nontoxic multinodular goiter (principal)
CPT/HCPCS: 70490

== ENCOUNTER 2021-09-09 15:57 | Outpatient (REF) | payer MEDICARE, MEDICAID, SELFPAY ==
--- NOTE | ~2021-09-09 | CT_ITS ---
EXAMINATION: CT HEAD WITHOUT CONTRAST CLINICAL INFORMATION: Headache. COMPARISON: None. TECHNIQUE: Contiguous axial imaging was performed from the skull base to vertex without intravenous administration of contrast. This CT examination was performed using dose optimization techniques as appropriate, variously including the following: *Automated exposure control *Adjustment of mA and/or kV according to patient size (this includes techniques or standardized protocols for targeted exams where dose is matched to indication/reason for exam; i.e. extremities or head) *Use of iterative reconstruction technique DLP: 900 mGy-cm FINDINGS: There is no evidence of acute intracranial hemorrhage or territorial infarction. No abnormal mass effect or midline shift is seen. Decker to white matter differentiation is well preserved. No extra-axial fluid collections are identified. The ventricles are normal in size. There is no abnormal attenuation within the brain parenchyma. The osseous structures and soft tissues are normal. The mastoid air cells and visualized portions of the paranasal sinuses are well aerated. CT/CT head/brain wo con IMPRESSION: No acute intracranial process seen.
== END 2021-09-09 15:58 | disposition home or self-care (01) ==
LOC: HO.CT 15:57
PROVIDERS: Visit Provider Internal Medicine Geriatric Medicine
DX: R51.9 Headache, unspecified (principal)
CPT/HCPCS: 70450

== ENCOUNTER → 2021-09-16 08:40 | Outpatient (BNVA) | payer MEDICARE, MEDICAID, SELFPAY | PROVIDERS: PCP Internal Medicine Geriatric Medicine; Visit Provider Registered Nurse Diabetes Educator | DX: E11.65 Type 2 diabetes mellitus with hyperglycemia (principal); Z79.4 Long term (current) use of insulin | CPT/HCPCS: 99211 ==

== ENCOUNTER 2021-09-23 12:29 | Emergency (ER) | payer MEDICARE, MEDICAID, SELFPAY ==
--- NOTE | ~2021-09-23 | CT_ITS ---
EXAMINATION: CT BRAIN AND CT CERVICAL SPINE WITHOUT CONTRAST. CLINICAL INFORMATION: Fall. COMPARISON: None TECHNIQUE: Axial 5 minutes thin and reformatted 2 mm thin sagittal coronal images were obtained. Subsequently axial 3 mm thin and reformatted 2 mm thin sagittal and coronal images of cervical spine were obtained. DLP 1350. FINDINGS: Brain: There is no acute intra-axial, extra-axial bleed, masses or midline shift. There is no acute infarction evolution. The lateral ventricles are symmetrical in size and configuration with mild prominence. The huerta to white matter difference is maintained. No acute infarct in evolution. There is no edema. Bone windows reveal no calvarial abnormality. There is mild left parietal scalp hematoma with likely laceration but no calvarial fracture. The paranasal sinuses an mastoid sinuses are well-aerated. Cervical spine: There is mild straightening of cervical lordosis. The vertebral heights, alignment and the disc heights are normal. The craniovertebral junction and the C1-C2 alignment is normal. No visible acute fracture, dislocation or subluxation seen. The prevertebral and paravertebral soft tissues are normal. There is widely patent. Visualized bilateral submandibular and parotid glands are symmetrical and normal. The thyroid lobes are symmetric and normal. No lytic or sclerotic process seen. CT/CT cervical spine wo con IMPRESSION: Left parietal scalp hematoma without calvarial fracture or intracranial bleed. Mild straightening of cervical lordosis without any fracture, dislocation or subluxation seen.
--- NOTE | ~2021-09-23 | CT_ITS ---
EXAMINATION: CT BRAIN AND CT CERVICAL SPINE WITHOUT CONTRAST. CLINICAL INFORMATION: Fall. COMPARISON: None TECHNIQUE: Axial 5 minutes thin and reformatted 2 mm thin sagittal coronal images were obtained. Subsequently axial 3 mm thin and reformatted 2 mm thin sagittal and coronal images of cervical spine were obtained. DLP 1350. FINDINGS: Brain: There is no acute intra-axial, extra-axial bleed, masses or midline shift. There is no acute infarction evolution. The lateral ventricles are symmetrical in size and configuration with mild prominence. The huerta to white matter difference is maintained. No acute infarct in evolution. There is no edema. Bone windows reveal no calvarial abnormality. There is mild left parietal scalp hematoma with likely laceration but no calvarial fracture. The paranasal sinuses an mastoid sinuses are well-aerated. Cervical spine: There is mild straightening of cervical lordosis. The vertebral heights, alignment and the disc heights are normal. The craniovertebral junction and the C1-C2 alignment is normal. No visible acute fracture, dislocation or subluxation seen. The prevertebral and paravertebral soft tissues are normal. There is widely patent. Visualized bilateral submandibular and parotid glands are symmetrical and normal. The thyroid lobes are symmetric and normal. No lytic or sclerotic process seen. CT/CT head/brain wo con IMPRESSION: Left parietal scalp hematoma without calvarial fracture or intracranial bleed. Mild straightening of cervical lordosis without any fracture, dislocation or subluxation seen.
--- NOTE | ~2021-09-23 | XR_ITS ---
EXAMINATION: XR LUMBOSACRAL SPINE CLINICAL INFORMATION: Fall. COMPARISON: None TECHNIQUE: Three views of the lumbosacral spine. FINDINGS: There is mild straightening of lumbar lordosis. The vertebral heights, alignment and disc heights are normal. There is no visible acute fracture, dislocation or lytic process seen. There is a left lateral bridging osteophyte T12/L1 and L1-L2 disc level. The SI joints are symmetrical. The paravertebral soft tissues are normal. There is no finding of moderate stool in colon. XR/XR lumbar spine 2-3V IMPRESSION: Mild bridging osteophyte left lateral T12-L1 and L1-L2 disc level. Otherwise unremarkable lumbar spine exam.
--- NOTE | 2021-09-23 12:35 | ED.FALL ---
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 Mode of arrival: EMS Limitations: no limitations History of Present Illness complaint: fall Onset (ago): minute(s) (just prior to arrival ) Fall from: chair Fall witnessed: yes, by family Place fall occurred: home Loss of consciousness: none Prolonged down time: no Symptoms prior to fall: none Context: other (sat down into a plastic chair it tipped back and he hit his head on bed ) Location of injury: head and back Severity: mild Quality: dull Associated symptoms (after fall): headache and other (back pain) Related Data Home Medications Medication Instructions Recorded Confirmed alcohol swabs 1 pad TOPICAL PRN 05/07/20 08/12/21 amlodipine 5 mg tablet 5 mg PO QAM 05/07/20 08/12/21 aspirin 81 mg tablet,delayed 81 mg PO DAILY 05/07/20 08/12/21 release blood sugar diagnostic #10 ea 05/07/20 08/12/21 chlorthalidone 50 mg tablet 50 mg PO QAM 05/07/20 08/12/21 gabapentin 100 mg capsule 100 mg PO BEDTIME 05/07/20 08/12/21 insulin syringe-needle U-100 1 mL #10 ea 05/07/20 08/12/21 29 gauge x 1/2 spironolactone 25 mg tablet 25 mg PO QAM 05/07/20 08/12/21 tamsulosin 0.4 mg capsule 0.4 mg PO BEDTIME 05/07/20 08/12/21 verapamil 120 mg tablet,extended 120 mg PO DAILY 05/07/20 08/12/21 release cetirizine 10 mg tablet 10 mg PO DAILY PRN tab 08/21/20 08/12/21 polyethylene glycol 3350 17 17 g PO DAILY PRN g 08/12/21 08/12/21 gram/dose oral powder (Miralax) sennosides 8.6 mg tablet (senna) 17.2 mg PO DAILY PRN 08/12/21 08/12/21 Previous Rx's Medication Instructions Recorded pen needle, diabetic 32 gauge x 1 ea MISCELLANEOUS QID 30 Days 08/11/20 (Pentips) #100 ea atorvastatin 40 mg tablet 40 mg PO DAILY 30 Days #30 tab 01/28/21 docusate sodium 100 mg capsule 200 mg PO BEDTIME #60 cap 03/25/21 (Colace) methylcellulose (laxative) 500 mg 500 mg PO BID #60 tab 03/25/21 tablet (Citrucel) omeprazole 20 mg capsule,delayed 20 mg PO DAILY #14 cap 04/04/21 release metformin 1,000 mg tablet 1,000 mg PO BID #60 tab 06/22/21 liraglutide 0.6 mg/0.1 mL (18 mg/3 1.8 mg (0.3 mL) SUBCUT DAILY #9 ml 06/24/21 mL) subcutaneous pen injector (Victoza 3-Beto) canagliflozin 300 mg tablet 300 mg PO DAILY 30 Days #30 tab 07/22/21 (Invokana) insulin lispro 100 unit/mL 30 unit (0.3 mL) SUBCUT TID 30 08/12/21 subcutaneous pen (Humalog Kw Days #27 ml (U-100) Insulin) pen needle, diabetic 32 gauge x #125 ea 09/01/2132 (BD Ultra-Fine Marry Pen Needle) insulin glargine U-300 conc 300 80 unit (0.2667 mL) SUBCUT DAILY 09/16/21 unit/mL (3 mL) subcutaneous pen #6 ml (Toujeo Max U-300 SoloStar) Allergies Allergy/AdvReac Type Severity Reaction Status Date / Time lisinopril [LISINOPRIL] Allergy Severe ANGIOEDEMA Verified 08/12/21 08:32 prednisone [PREDNISONE] Allergy Mild ITCHY Verified 08/12/21 08:32 Review of Systems Review of Systems: Constitutional : No Fever, No Chills ENT/Mouth : No Ear Pain, No Hoarseness, No sore throat Eyes: No Eye Pain, No Swelling, No Redness, No Foreign Body Cardiovascular : No Chest Pain, No SOB Respiratory : No Cough, No Dyspnea Gastrointestinal : No Nausea, No Vomiting, No Diarrhea, No abdominal Pain Genitourinary : No Dysuria, No Hematuria Musculoskeletal :no joint pain, No Myalgias, No Joint Swelling, pos back pain, pos neck pain Skin : No Skin lacerations, No rash, pos skin abrasion on head Neuro : No Weakness, No Numbness, No Loss of Consciousness, No Dizziness, pos Headache Psych : No Anxiety/Panic, No Depression Heme/Lymph: no easy bruising, no Lymphadenopathy Endocrine : No Polyuria, No Polydipsia All other systems reviewed and are negative FOR[facility]LY [facility] Past Medical History Attestation statement: The following information was validated with the patient. Medical History Basal cell carcinoma (BCC) Familial hypocalciuric hypercalcemia Heart murmur HLD (hyperlipidemia) HTN (hypertension) Multinodular thyroid NAFLD (nonalcoholic fatty liver disease) Skin lesion of left lower extremity T2DM (type 2 diabetes mellitus) Transaminitis Vitamin D deficiency Surgical History Hx of appendectomy Hx of cholecystectomy Hx of colonoscopy Hx of esophagogastroduodenoscopy Hx of melanoma excision Family History Family History Father CVD (cardiovascular disease) Diabetes Brother CVD (cardiovascular disease) Diabetes FH: heart attack Social History Social History Household Members: Family Alcohol intake: unknown Patient Tobacco Use Status: Never used Tobacco Advance Directives: No Advance Directives Information Provided: No Physical Exam Vital Signs: Vital Signs: Last Vital Signs Temp 98.1 F 09/23/21 12:36 Pulse 82 09/23/21 12:36 BP 160/69 H 09/23/21 12:36 Pulse Ox 97 09/23/21 12:36 BMI result Body Mass Index 35.5 Appearance: Alert. Oriented X3. No acute distress. Eyes: Pupils equal, round and reactive to light. ENT: Pharynx normal. superficial abrasion to L parietal posterior scalp Neck: Normal inspection. Neck supple. Collar in place CVS: Normal heart rate and rhythm. Pulses normal. Respiratory: No respiratory distress. Breath sounds normal. Abdomen: Soft and non-tender. Back: ttp along lower back no step offs Skin: Skin warm and dry. Normal skin color. Normal skin turgor. Extremities: No lower extremity edema. No calf ttp Neuro: Oriented X 3. No motor deficit. No sensory deficit. Course Course Course Narrative: GCS 15, negative workup stable for DC scalp cleaned - just abrasions MDM - Fall MDM Narrative Medical decision making narrative: 71 yo male with hx of DM, HTN, BP, aortic stenosis, ASHBY here with mechanical fall posterior out of a chair - at this time has headache/neck pain - abrasion to scalp. Also c/o low back pain - at this time CT head/cspine/lumbar spine - dispo per results and findings. Discharge Plan Discharge Clinical Impression: Abrasion Back pain Qualifiers: Back pain location: low back pain Chronicity: acute Back pain laterality: bilateral Sciatica presence: without sciatica Qualified Code(s): M54.50 - Low back pain, unspecified Head injury Qualifiers: Encounter type: initial encounter Qualified Code(s): S09.90XA - Unspecified injury of head, initial encounter Patient Disposition: Home, Self-Care Instructions: Acute Low Back Pain (ED), Head Injury (ED) Additional Instructions: return to ED for any worsening symptoms or concerns Prescriptions: No Action pen needle, diabetic [Pentips] 32 gauge x 5/32 needle 1 ea miscellaneous QID 30 Days Qty: 100 11RF atorvastatin 40 mg tablet 40 mg PO DAILY 30 Days Qty: 30 11RF metformin 1,000 mg tablet 1,000 mg PO BID Qty: 60 11RF Victoza 3-Beto 0.6 mg/0.1 mL (18 mg/3 mL) pen injector 1.8 mg subcut DAILY Qty: 9 11RF Invokana 300 mg tablet 300 mg PO DAILY 30 Days Qty: 30 4RF insulin lispro [Humalog KwikPen Insulin] 100 unit/mL insulin pen 30 unit subcut TID 30 Days Qty: 27 11RF (DME) pen needle, diabetic [BD Ultra-Fine Marry Pen Needle] 32 gauge x 5/32 needle See Rx Instructions .ROUTE .MEDSUPPLY Qty: 125 11RF Rx Instructions: As directed four times a day Toujeo Max U-300 SoloStar 300 unit/mL (3 mL) insulin pen 80 unit subcut DAILY Qty: 6 6RF omeprazole 20 mg capsule,delayed release(DR/EC) 20 mg PO DAILY Qty: 14 0RF amlodipine 5 mg tablet 5 mg PO QAM 0RF gabapentin 100 mg capsule 100 mg PO BEDTIME 0RF aspirin 81 mg tablet,delayed release (DR/EC) 81 mg PO DAILY 0RF (DME) insulin syringe-needle U-100 1 mL 29 gauge x 1/2 syringe See Rx Instructions ea .ROUTE QID Qty: 10 0RF Rx Instructions: As directed alcohol swabs Pads, Medicated 1 pad topical PRN0RF chlorthalidone 50 mg tablet 50 mg PO QAM 0RF tamsulosin 0.4 mg capsule 0.4 mg PO BEDTIME 0RF verapamil 120 mg tablet extended release 120 mg PO DAILY 0RF (DME) OneTouch Ultra Blue Test Strip Strip See Rx Instructions ea Not Applicable TID Qty: 10 0RF Rx Instructions: As directed spironolactone 25 mg tablet 25 mg PO QAM 0RF cetirizine 10 mg tablet 10 mg PO DAILY PRN (Reason: allergy symptoms) 0RF Citrucel 500 mg tablet 500 mg PO BID Qty: 60 5RF docusate sodium [Colace] 100 mg capsule 200 mg PO BEDTIME Qty: 60 5RF polyethylene glycol 3350 [Miralax] 17 gram/dose powder 17 g PO DAILY PRN (Reason: constipation) 0RF sennosides [senna] 8.6 mg tablet 17.2 mg PO DAILY PRN (Reason: constipation) 0RF Referrals: Physician,Unknown J [Primary Care Provider] - 2 days (if not better) Print Language: Pashto
[2021-09-23 12:36] VITALS: BP 148/90; BP 160/69; PULSE 82; TEMP 36.7; O2SAT 97; BMI 35.5
== END 2021-09-23 16:02 | disposition home or self-care (01) ==
PROVIDERS: Emergency Provider Emergency Medicine
DX: S00.91XA Abrasion of unspecified part of head, initial encounter (principal); M54.50 Low back pain, unspecified; G44.309 Post-traumatic headache, unspecified, not intractable; R40.2410 Glasgow coma scale score 13-15, unspecified time; M54.2 Cervicalgia; W07.XXXA Fall from chair, initial encounter; Y93.9 Activity, unspecified; Y92.9 Unspecified place or not applicable; Y99.9 Unspecified external cause status; Z79.899 Other long term (current) drug therapy
CPT/HCPCS: 70450; 72100; 72125; 99283; 99284

== ENCOUNTER 2021-09-30 07:10 | Outpatient (REF) | payer MEDICARE, MEDICAID, SELFPAY ==
[2021-09-30 08:07] LABS: Anion Gap 13 (12-20); Blood Urea Nitrogen 23 mg/dL (9-16); Calcium 9.9 mg/dL (8.4-10.2); Carbon Dioxide 25 mmol/L (22-29); Chloride 101 mmol/L (96-108); Estimated Glomerular Filt Rate 59; Glucose Random 216 mg/dL (60-115); Potassium 3.9 mmol/L (3.3-5.1); Sodium 135 mmol/L (135-145)
[2021-09-30 08:20] LABS: Thyroid Stimulating Hormone 1.94 uIU/mL (0.32-4.0)
== END 2021-09-30 07:11 | disposition home or self-care (01) ==
LOC: HO.LAB 07:10
PROVIDERS: Physician Assistant; PCP Internal Medicine Geriatric Medicine; Visit Provider Internal Medicine Hypertension Specialist
DX: I12.9 Hypertensive chronic kidney disease with stage 1 through stage 4 chronic kidney disease, or unspecified chronic kidney disease (principal); N18.9 Chronic kidney disease, unspecified; K59.09 Other constipation
CPT/HCPCS: 36415; 80048; 84443

== ENCOUNTER 2021-11-03 05:17 | Emergency (ER) | payer MEDICARE, MEDICAID, SELFPAY ==
[2021-11-03 05:23] VITALS: BP 166/63; PULSE 80; RESP 16; TEMP 36.6; O2SAT 99; BMI 35.3
--- NOTE | 2021-11-03 05:33 | ED_ITS ---
HPI - Back Pain/Injury General Chief Complaint: Back Pain/Injury Stated Complaint: Back pain Time Seen by Provider: 11/03/21 05:33 Source: patient Mode of arrival: ambulatory Limitations: no limitations History of Present Illness HPI Narrative: 71-year-old male past medical history significant hyperlipidemia, hypertension, nonalcoholic fatty liver disease, type 2 diabetes presents to the emergency department with atraumatic lower back pain x5 days worsening, patient does not remember what he was doing when it started Patient tells me that he is having pain to the left side of his back that radiates into his left leg. Patient tells me that he suffers from sciatica and this feels like his typical sciatica flare however he tells me that the pain is not controlled by ibuprofen or Tylenol at home therefore he came to the emergency department to be evaluated. He tells me he has been seen by his PCP for this before. He tells me before he was prescribed morphine and he tells me this worked well. He denies any numbness or tingling, urinary/bowel incontinence/retention, weakness, chest pain, shortness of breath, fevers, chills, confusion, headache, dizziness, changes in urination Patient comes into the emergency a department ambulating with steady gait. Denies recent trauma. Denies previous back surgeries or procedures. Denies IV drug abuse. MD elicited complaint: back pain Pertinent past history: prior back pain Onset (ago): day(s) (5) Timing: constant Severity: similar to previous episodes Pain scale (0-10): 10 Similar Symptoms Previously: Yes Quality: sharp Location: lumbar spine Radiation: left upper leg Exacerbating factors: none Relieving factors: none Associated symptoms: denies other symptoms Treatments prior to arrival: NSAIDS and acetaminophen Work related injury: No Related Data Home Medications Medication Instructions Recorded Confirmed alcohol swabs 1 pad TOPICAL PRN 05/07/20 08/12/21 amlodipine 5 mg tablet 5 mg PO QAM 05/07/20 08/12/21 aspirin 81 mg tablet,delayed 81 mg PO DAILY 05/07/20 08/12/21 release blood sugar diagnostic #10 ea 05/07/20 08/12/21 chlorthalidone 50 mg tablet 50 mg PO QAM 05/07/20 08/12/21 gabapentin 100 mg capsule 100 mg PO BEDTIME 05/07/20 08/12/21 insulin syringe-needle U-100 1 mL #10 ea 05/07/20 08/12/21 29 gauge x 1/2 spironolactone 25 mg tablet 25 mg PO QAM 05/07/20 08/12/21 tamsulosin 0.4 mg capsule 0.4 mg PO BEDTIME 05/07/20 08/12/21 verapamil 120 mg tablet,extended 120 mg PO DAILY 05/07/20 08/12/21 release cetirizine 10 mg tablet 10 mg PO DAILY PRN tab 08/21/20 08/12/21 polyethylene glycol 3350 17 17 g PO DAILY PRN g 08/12/21 08/12/21 gram/dose oral powder (Miralax) sennosides 8.6 mg tablet (senna) 17.2 mg PO DAILY PRN 08/12/21 08/12/21 Previous Rx's Medication Instructions Recorded pen needle, diabetic 32 gauge x 1 ea MISCELLANEOUS QID 30 Days 08/11/20 (Pentips) #100 ea atorvastatin 40 mg tablet 40 mg PO DAILY 30 Days #30 tab 01/28/21 docusate sodium 100 mg capsule 200 mg PO BEDTIME #60 cap 03/25/21 (Colace) methylcellulose (laxative) 500 mg 500 mg PO BID #60 tab 03/25/21 tablet (Citrucel) omeprazole 20 mg capsule,delayed 20 mg PO DAILY #14 cap 04/04/21 release metformin 1,000 mg tablet 1,000 mg PO BID #60 tab 06/22/21 liraglutide 0.6 mg/0.1 mL (18 mg/3 1.8 mg (0.3 mL) SUBCUT DAILY #9 ml 06/24/21 mL) subcutaneous pen injector (Victoza 3-Beto) canagliflozin 300 mg tablet 300 mg PO DAILY 30 Days #30 tab 07/22/21 (Invokana) insulin lispro 100 unit/mL 30 unit (0.3 mL) SUBCUT TID 30 08/12/21 subcutaneous pen (Humalog #27 ml (U-100) Insulin) pen needle, diabetic 32 gauge x #125 ea 09/01/21 (BD Ultra-Fine Marry Pen Needle) insulin glargine U-300 conc 300 80 unit (0.2667 mL) SUBCUT DAILY 09/16/21 unit/mL (3 mL) subcutaneous pen #6 ml (Toujeo Max U-300 SoloStar) lidocaine 5 % topical patch 1 patch TOPICAL DAILY PRN #15 ea 11/03/21 morphine 15 mg immediate release 15 mg PO Q8H PRN #6 tab 11/03/21 tablet Allergies Allergy/AdvReac Type Severity Reaction Status Date / Time lisinopril [LISINOPRIL] Allergy Severe ANGIOEDEMA Verified 08/12/21 08:32 prednisone [PREDNISONE] Allergy Mild ITCHY Verified 08/12/21 08:32 Review of Systems Review of Systems: Constitutional : No Weight loss, No Fever, No Chills, No Fatigue, No Malaise ENT/Mouth : No sore throat, No Rhinorrhea Eyes: No Eye Pain, No Swelling, No Redness Cardiovascular : No Chest Pain, No SOB, No Dyspnea on Exertion, No Orthopnea, No Edema, No Palpitations Respiratory : No Cough, No Sputum, No Wheezing Gastrointestinal : No Nausea, No Vomiting, No Diarrhea, No Constipation, No abdominal Pain, No Hematochezia, No Melena Genitourinary : No Dysuria, No Urinary Frequency, No Hematuria, Musculoskeletal : + joint pain, No Myalgias, No Joint Swelling Skin : No Skin Lesions, No rash Neuro : No Weakness, No Numbness, No Dizziness, No Headache Psych : No Anxiety/Panic, No Depression All other systems reviewed and are negative Yes all other systems are reviewed and are negative [facility] Past Medical History Attestation statement: The following information was validated with the patient. Source: old records reviewed and nursing notes reviewed Medical History Basal cell carcinoma (BCC) Familial hypocalciuric hypercalcemia Heart murmur HLD (hyperlipidemia) HTN (hypertension) Multinodular thyroid NAFLD (nonalcoholic fatty liver disease) Skin lesion of left lower extremity T2DM (type 2 diabetes mellitus) Transaminitis Vitamin D deficiency Surgical History Hx of appendectomy Hx of cholecystectomy Hx of colonoscopy Hx of esophagogastroduodenoscopy Hx of melanoma excision Family History Family History Father CVD (cardiovascular disease) Diabetes Brother CVD (cardiovascular disease) Diabetes FH: heart attack Social History Social History Household Members: Family Alcohol intake: unknown Patient Tobacco Use Status: Never used Tobacco Advance Directives: No Physical Exam Vital Signs: Vital Signs: Last Vital Signs Temp 97.9 F 11/03/21 05:23 Pulse 80 11/03/21 05:23 Resp 16 11/03/21 05:23 BP 166/63 H 11/03/21 05:23 Pulse Ox 99 11/03/21 05:23 BMI result Body Mass Index 35.3 Vital signs stable Appearance: Alert.? Oriented X3.? No acute distress.? Head: Normocephalic, atraumatic, no step-offs or deformities Eyes: Pupils equal, round and reactive to light.? ENT: Pharynx normal.? Neck: Normal inspection.? Neck supple.? CVS: Normal heart rate and rhythm.? Pulses normal.? Respiratory: No respiratory distress.? Breath sounds normal.? Abdomen: Soft and nontender.? Skin: Skin warm and dry.? Normal skin color.? Normal skin turgor.? Extremities: No lower extremity edema.? No calf ttp. 5/5 strength to bilateral upper and lower extremities + pain with range of motion of lower back particularly with flexion extension, pain it radiates to left lower extremity. + pain with palpation of left lower lumbar paraspinous muscles. + 2+ reflexes equal bilateral patellar. Back: No midline tenderness, no C-spine tenderness, full range of motion, no CVA tenderness bilaterally Neuro: Oriented X 3.? No motor deficit.? No sensory deficit. CN 2-12 intact . No saddle paresthesias. Patient ambulating with steady gait. Course Reevaluation(s) Reevaluation #1: Educated patient that CT and x-ray would likely not show much, patient likely will require an MRI to further evaluate his back pain. I will send him home with p.o. morphine as this has worked for him in the past I will give him a short supply. Also send him lighted cane patches. Advised him to return with new or worsening symptoms. I also advised him to follow-up with his PCP and Pain Clinic. At this time I feel comfortable discharge home. Likely diagnosis is sciatica. I do not suspect cauda equina or epidural abscess. Time: 05:39 MDM - Back Pain/Injury [facility] Narrative Medical decision making narrative: 529 71-year-old male presents with sciatica like symptoms x5 days worsening. Tells me this feels like his typical sciatica however pain is not controlled by ibuprofen or Tylenol. Has been seen by his PCP for this before according to patient. Denies previous back surgeries/procedures. Denies history of IV drug abuse. Denies fevers or chills. Denies any red flag symptoms. Physical examination significant for pain with flexion and extension of the back with radiation to the left lower extremity. No midline tenderness. No step- offs or deformities. No overlying skin changes. 2+ reflexes equal bilateral. No saddle paresthesias. Neuro exam nonfocal. Ambulating with steady gait. Based off patient history and physical examination unlikel that this is cauda equina or epidural abscess. Likely sciatic or muscle strain. Plan at this time is to educate patient on diagnosis and treatment plan. No need for imaging as this is nontraumatic. Medical Records Attestation: I reviewed the patient's medical records. Lab Data Attestation: I reviewed the patient's lab results. Critical Care Time Critical Care Time Critical Care Time: No Discharge Plan Discharge Clinical Impression: Sciatica, Back pain Patient Disposition: Home, Self-Care Instructions: Sciatica (ED), Back Pain (ED) Additional Instructions: Take your medications as prescribed. Follow-up with your primary care provider , call and schedule an appointment today for this week. You will likely require pain management for this back pain. He will also likely require an MRI of your back to further evaluate this pain. Return to the emergency department with new or worsening symptoms. Such as fevers, chills, chest pain, shortness of breath, nausea, vomiting, dizziness, headache, vision changes, lethargy, bladder/bowel incontinence/retention, changes in bowel or urinary habits, weakness, loss of sensation to lower extremities. In case of emergency call 911 Some morphine to your pharmacy, this is a controlled substance, you should not operate a vehicle while taking this, only take this as prescribed, there is a risk for addiction. You should also wear Lidoderm patch to the area. [place] sera medicamentos seg?n lo prescrito. Haleigh un seguimiento con brewer proveedor de atenci?n primaria, llame y programe fernanda ariela hoy para esta semana. Es probable que necesite control del dolor para paige dolor de espalda. Es probable que tambi?n requiera fernanda resonancia magn?donato de brewer espalda para evaluar m?s a fondo paige dolor. Regrese al departamento de emergencias con s?ntomas nuevos o que empeoran. Tales bienvenido fiebre, escalofr?os, dolor de pecho, dificultad para respirar, n?useas, v?mitos, mareos, dolor de josef, cambios en la visi?n, letargo, incontinencia/retenci?n de vejiga/intestino, cambios en los h?bitos intestinales o urinarios, debilidad, p?rdida de sensibilidad en las extremidades inferiores. En abe de emergencia llama al 911 Un poco de morfina a brewer farmacia, esta es fernanda sustancia controlada, no debe operar un veh?culo mientras dianna esto, solo t?morales seg?n lo prescrito, existe el riesgo de adicci?n. Tambi?n debe usar el parche Lidoderm en el ?ashely. Prescriptions: New morphine 15 mg tablet 15 mg PO Q8H PRN (Reason: pain) Qty: 6 0RF Rx Instructions: Please take for severe pain. Patient can partially filled prescription upon request lidocaine 5 % adhesive patch,medicated 1 patch topical DAILY PRN (Reason: pain) Qty: 15 0RF Rx Instructions: leave on most painful area for up to 12 hrs No Action pen needle, diabetic [Pentips] 32 gauge x 5/32 needle 1 ea miscellaneous QID 30 Days Qty: 100 11RF atorvastatin 40 mg tablet 40 mg PO DAILY 30 Days Qty: 30 11RF metformin 1,000 mg tablet 1,000 mg PO BID Qty: 60 11RF Victoza 3-Beto 0.6 mg/0.1 mL (18 mg/3 mL) pen injector 1.8 mg subcut DAILY Qty: 9 11RF Invokana 300 mg tablet 300 mg PO DAILY 30 Days Qty: 30 4RF insulin lispro [Humalog KwikPen Insulin] 100 unit/mL insulin pen 30 unit subcut TID 30 Days Qty: 27 11RF (DME) pen needle, diabetic [BD Ultra-Fine Marry Pen Needle] 32 gauge x 5/32 needle See Rx Instructions .ROUTE .MEDSUPPLY Qty: 125 11RF Rx Instructions: As directed four times a day Toujeo Max U-300 SoloStar 300 unit/mL (3 mL) insulin pen 80 unit subcut DAILY Qty: 6 6RF omeprazole 20 mg capsule,delayed release(DR/EC) 20 mg PO DAILY Qty: 14 0RF amlodipine 5 mg tablet 5 mg PO QAM 0RF gabapentin 100 mg capsule 100 mg PO BEDTIME 0RF aspirin 81 mg tablet,delayed release (DR/EC) 81 mg PO DAILY 0RF (DME) insulin syringe-needle U-100 1 mL 29 gauge x 1/2 syringe See Rx Instructions ea .ROUTE QID Qty: 10 0RF Rx Instructions: As directed alcohol swabs Pads, Medicated 1 pad topical PRN0RF chlorthalidone 50 mg tablet 50 mg PO QAM 0RF tamsulosin 0.4 mg capsule 0.4 mg PO BEDTIME 0RF verapamil 120 mg tablet extended release 120 mg PO DAILY 0RF (DME) OneTouch Ultra Blue Test Strip Strip See Rx Instructions ea Not Applicable TID Qty: 10 0RF Rx Instructions: As directed spironolactone 25 mg tablet 25 mg PO QAM 0RF cetirizine 10 mg tablet 10 mg PO DAILY PRN (Reason: allergy symptoms) 0RF Citrucel 500 mg tablet 500 mg PO BID Qty: 60 5RF docusate sodium [Colace] 100 mg capsule 200 mg PO BEDTIME Qty: 60 5RF polyethylene glycol 3350 [Miralax] 17 gram/dose powder 17 g PO DAILY PRN (Reason: constipation) 0RF sennosides [senna] 8.6 mg tablet 17.2 mg PO DAILY PRN (Reason: constipation) 0RF Referrals: Name,MD Aneesh [Primary Care Provider] - 2 days Print Language: [place]
== END 2021-11-03 05:48 | disposition home or self-care (01) ==
PROVIDERS: Emergency Provider Emergency Medicine; PCP Internal Medicine Geriatric Medicine
DX: M54.42 Lumbago with sciatica, left side (principal); I10 Essential (primary) hypertension; E78.5 Hyperlipidemia, unspecified; E11.9 Type 2 diabetes mellitus without complications; Z79.82 Long term (current) use of aspirin; Z79.4 Long term (current) use of insulin; Z79.02 Long term (current) use of antithrombotics/antiplatelets; Z79.899 Other long term (current) drug therapy
CPT/HCPCS: 99283

== ENCOUNTER 2021-11-18 05:23 | Emergency (ER) | payer MEDICARE, MEDICAID, SELFPAY ==
--- NOTE | 2021-11-18 06:49 | ED_ITS ---
HPI - General Adult General Chief complaint: Back Pain/Injury Time Seen by Provider: 11/18/21 06:46 Source: patient, old records reviewed and [employer] mill [employer] History of Present Illness HPI narrative: patient with history of back pain and sciatica presents stating that his pain continues after approximately 1 month. No trauma Seen here several weeks ago for same and treated with morphine which he states did not help much. He has never seen a specialist. He states he had an MRI 3 years ago which showed sciatica. No bowel or bladder symptoms. Patient states the pain is to the point where he is having difficulty ambulating but denies weakness. No fevers or chills Worse with movement Pain starts in his low back and radiates to both legs. Related Data Home Medications Medication Instructions Recorded Confirmed alcohol swabs 1 pad topical PRN 05/07/20 11/26/21 amlodipine 5 mg tablet 5 mg PO QAM 05/07/20 11/26/21 aspirin 81 mg tablet,delayed 81 mg PO DAILY 05/07/20 11/26/21 release blood sugar diagnostic #10 ea 05/07/20 11/26/21 chlorthalidone 50 mg tablet 50 mg PO QAM 05/07/20 11/26/21 gabapentin 100 mg capsule 100 mg PO BEDTIME 05/07/20 11/26/21 insulin syringe-needle U-100 1 mL #10 ea 05/07/20 11/26/21 29 gauge x 1/2 spironolactone 25 mg tablet 25 mg PO QAM 05/07/20 11/26/21 tamsulosin 0.4 mg capsule 0.4 mg PO BEDTIME 05/07/20 11/26/21 verapamil 120 mg tablet,extended 120 mg PO DAILY 05/07/20 11/26/21 release cetirizine 10 mg tablet 10 mg PO DAILY PRN allergy symptoms 08/21/20 11/26/21 polyethylene glycol 3350 17 17 g PO DAILY PRN constipation 08/12/21 11/26/21 gram/dose oral powder (Miralax) sennosides 8.6 mg tablet (senna) 17.2 mg PO DAILY PRN constipation 08/12/21 11/26/21 Previous Rx's Medication Instructions Recorded pen needle, diabetic 32 gauge x 1 ea miscellaneous QID 30 days 08/11/20 (Pentips) #100 ea docusate sodium 100 mg capsule 200 mg PO BEDTIME #60 caps 03/25/21 (Colace) methylcellulose (laxative) 500 mg 500 mg PO BID #60 tabs 03/25/21 tablet (Citrucel) omeprazole 20 mg capsule,delayed 20 mg PO DAILY #14 caps 04/04/21 release liraglutide 0.6 mg/0.1 mL (18 mg/3 1.8 mg (0.3 mL) subcut DAILY #9 mL 06/24/21 mL) subcutaneous pen injector ([employer] 3-Beto) pen needle, diabetic 32 gauge x #125 ea 09/01/21 (BD Ultra-Fine Marry Pen Needle) lidocaine 5 % topical patch 1 patch topical DAILY PRN pain #15 11/03/21 ea morphine 15 mg immediate release 15 mg PO Q8H PRN pain #6 tabs 11/03/21 tablet cyclobenzaprine 10 mg tablet 10 mg PO TID #30 tabs 11/18/21 ibuprofen 800 mg tablet 800 mg PO TID #30 tabs 11/18/21 canagliflozin 300 mg tablet 300 mg PO DAILY 30 days #30 tabs 11/26/21 (Invokana) cholecalciferol (vitamin D3) 50 50 mcg PO DAILY 30 days #30 caps 11/26/21 mcg (2,000 unit) capsule insulin glargine U-300 conc 300 80 unit (0.2667 mL) subcut DAILY 11/26/21 unit/mL (3 mL) subcutaneous pen #6 mL (Toujeo Max U-300 SoloStar) insulin lispro 100 unit/mL 30 unit (0.3 mL) subcut TID 30 11/26/21 subcutaneous pen (Humalog Kw #27 mL (U-100) Insulin) metformin 1,000 mg tablet 1,000 mg PO BID #60 tabs 11/26/21 bisacodyl 10 mg rectal suppository 10 mg [place] DAILY #12 ea 12/26/21 (Dulcolax (bisacodyl)) cyclobenzaprine 10 mg tablet 10 mg PO TID PRN muscle spasm #10 12/26/21 tabs polyethylene glycol 3350 17 17 g PO DAILY #119 grams 12/26/21 gram/dose oral powder (Miralax) atorvastatin 40 mg tablet 40 mg PO DAILY 30 days #30 tabs 02/08/22 Allergies Allergy/AdvReac Type Severity Reaction Status Date / Time lisinopril [LISINOPRIL] Allergy Severe ANGIOEDEMA Verified 12/26/21 07:14 prednisone [PREDNISONE] Allergy Mild ITCHY Verified 11/26/21 10:33 Review of Systems Constitutional: Comments: No fevers or chills Cardiovascular: Comments: no chest pain Respiratory: Comments: no difficulty breathing Gastrointestinal: Comments: no significant abdominal pain Genitourinary: Comments: no urinary retention or incontinence Musculoskeletal: Comments: back and leg pain as mentioned Integumentary/Breasts: Comments: no rash Neurologic: Comments: radiation of pain but no weakness PMFSH Past Medical History Medical History Basal cell carcinoma (BCC) Familial hypocalciuric hypercalcemia Heart murmur HLD (hyperlipidemia) HTN (hypertension) Multinodular thyroid NAFLD (nonalcoholic fatty liver disease) Skin lesion of left lower extremity T2DM (type 2 diabetes mellitus) Transaminitis Vitamin D deficiency Surgical History Hx of appendectomy Hx of cholecystectomy Hx of colonoscopy Hx of esophagogastroduodenoscopy Hx of melanoma excision Family History Family History Father CVD (cardiovascular disease) Diabetes Brother CVD (cardiovascular disease) Diabetes FH: heart attack Social History Social History Household Members: Family Alcohol intake: never Patient Tobacco Use Status: Never used Tobacco Advance Directives: No Advance Directives Information Provided: Yes Physical Exam ED Vital Signs: Vital Signs - 24 hr 11/18/21 07:02 Temperature 98.7 F Pulse Rate 77 Respiratory Rate 18 Blood Pressure 178/70 H Pulse Oximetry 97 Oxygen Delivery Method Room Air BMI result Body Mass Index 35.5 Const Other: Awake alert in no acute distress Resp Other: Clear and equal without respiratory distress GI Other: Nontender Back/Spine/Pelvis Other: Paraspinous muscle tenderness Skin Other: No rash Neuro Other: Ambulatory. No obvious focal deficits Course Course Course Narrative: low back pain Sciatica Neurologically intact Patient states he has never been on muscle relaxants. He cannot take steroids He has been taking Tylenol for pain but no anti-inflammatories. Will treat without Toradol in the emergency department Prescription for ibuprofen and Flexeril Follow-up with physiatry Discharge Plan Discharge Clinical Impression: Sciatica Patient Disposition: Home, Self-Care Instructions: Sciatica (ED) Additional Instructions: follow-up with [facility]. Call ? . Prescriptions: New ibuprofen 800 mg tablet 800 mg PO TID Qty: 30 0RF cyclobenzaprine 10 mg tablet 10 mg PO TID Qty: 30 0RF No Action pen needle, diabetic [Pentips] 32 gauge x 5/32 needle 1 ea miscellaneous QID 30 Days Qty: 100 11RF Victoza 3-Beto 0.6 mg/0.1 mL (18 mg/3 mL) pen injector 1.8 mg subcut DAILY Qty: 9 11RF (DME) pen needle, diabetic [BD Ultra-Fine Marry Pen Needle] 32 gauge x 5/32 needle See Rx Instructions .ROUTE .MEDSUPPLY Qty: 125 11RF Rx Instructions: As directed four times a day atorvastatin 40 mg tablet 40 mg PO DAILY 30 Days Qty: 30 11RF omeprazole 20 mg capsule,delayed release(DR/EC) 20 mg PO DAILY Qty: 14 0RF morphine 15 mg tablet 15 mg PO Q8H PRN (Reason: pain) Qty: 6 0RF Rx Instructions: Please take for severe pain. Patient can partially filled prescription upon request lidocaine 5 % adhesive patch,medicated 1 patch topical DAILY PRN (Reason: pain) Qty: 15 0RF Rx Instructions: leave on most painful area for up to 12 hrs polyethylene glycol 3350 [Miralax] 17 gram/dose powder 17 g PO DAILY Qty: 119 0RF bisacodyl [Dulcolax (bisacodyl)] 10 mg suppository 10 mg [place] DAILY Qty: 12 0RF cyclobenzaprine 10 mg tablet 10 mg PO TID PRN (Reason: muscle spasm) Qty: 10 0RF amlodipine 5 mg tablet 5 mg PO QAM gabapentin 100 mg capsule 100 mg PO BEDTIME aspirin 81 mg tablet,delayed release (DR/EC) 81 mg PO DAILY (DME) insulin syringe-needle U-100 1 mL 29 gauge x 1/2 syringe See Rx Instructions .ROUTE QID Qty: 10 Rx Instructions: As directed alcohol swabs Pads, Medicated 1 pad topical PRN chlorthalidone 50 mg tablet 50 mg PO QAM tamsulosin 0.4 mg capsule 0.4 mg PO BEDTIME verapamil 120 mg tablet extended release 120 mg PO DAILY (DME) OneTouch Ultra Blue Test Strip Strip See Rx Instructions Not Applicable TID Qty: 10 Rx Instructions: As directed spironolactone 25 mg tablet 25 mg PO QAM cetirizine 10 mg tablet 10 mg PO DAILY PRN (Reason: allergy symptoms) Citrucel 500 mg tablet 500 mg PO BID Qty: 60 5RF docusate sodium [Colace] 100 mg capsule 200 mg PO BEDTIME Qty: 60 5RF polyethylene glycol 3350 [Miralax] 17 gram/dose powder 17 g PO DAILY PRN (Reason: constipation) sennosides [senna] 8.6 mg tablet 17.2 mg PO DAILY PRN (Reason: constipation) insulin lispro [Humalog KwikPen Insulin] 100 unit/mL insulin pen 30 unit subcut TID 30 Days Qty: 27 11RF Toujeo Max U-300 SoloStar 300 unit/mL (3 mL) insulin pen 80 unit subcut DAILY Qty: 6 11RF Invokana 300 mg tablet 300 mg PO DAILY 30 Days Qty: 30 11RF metformin 1,000 mg tablet 1,000 mg PO BID Qty: 60 11RF cholecalciferol (vitamin D3) 50 mcg (2,000 unit) capsule 50 mcg PO DAILY 30 Days Qty: 30 11RF Interventions: ED Discharge Assessment Last Done: 11/18/21 07:31 Discharge Date/Time: 11/18/21 07:32
[2021-11-18 07:02] VITALS: BP 178/70; PULSE 77; RESP 18; TEMP 37.1; O2SAT 97; BMI 35.5
[2021-11-18] MEDS: Ketorolac Tromethamine 30 MG/ML VIAL IM (07:31)
== END 2021-11-18 07:32 | disposition home or self-care (01) ==
PROVIDERS: Emergency Provider Emergency Medicine
DX: M54.42 Lumbago with sciatica, left side (principal); M54.41 Lumbago with sciatica, right side; I10 Essential (primary) hypertension; E78.5 Hyperlipidemia, unspecified; E11.9 Type 2 diabetes mellitus without complications; Z79.02 Long term (current) use of antithrombotics/antiplatelets; Z79.82 Long term (current) use of aspirin; Z79.899 Other long term (current) drug therapy
CPT/HCPCS: 96372; 99284; J1885

== ENCOUNTER 2021-11-21 07:07 | Outpatient (REF) | payer OTHER, SELFPAY ==
[2021-11-21 08:38] LABS: Estimated Average Glucose 206 mg/dL; Hemoglobin A1c % 8.8 %
[2021-11-21 08:56] LABS: Alanine Aminotransferase 90 U/L (0-40); Alkaline Phosphatase 77 U/L (39-117); Anion Gap 13 (12-20); Aspartate Amino Transferase 36 U/L (5-37); Bilirubin Total 0.5 mg/dL (0.0-1.0); Blood Urea Nitrogen 23 mg/dL (9-16); Calcium 9.7 mg/dL (8.4-10.2); Carbon Dioxide 30 mmol/L (22-29); Chloride 100 mmol/L (96-108); Cholesterol 140 mg/dL; Estimated Glomerular Filt Rate > 60; Glucose Random 239 mg/dL (60-115); HDL Cholesterol 32 mg/dL; LDL Cholesterol Calculated 71 mg/dl; Potassium 4.2 mmol/L (3.3-5.1); Sodium 139 mmol/L (135-145); Total Protein 7.4 g/dL (6.5-8.0); Triglycerides 186 mg/dL
[2021-11-21 09:25] LABS: Free T4 (Free Thyroxine) 0.68 ng/dL (0.71-1.85); Thyroid Stimulating Hormone 1.41 uIU/mL (0.32-4.0)
[2021-11-21 09:35] LABS: Creatinine Urine 40.11 mg/dL; Microalbum/Creatinine Ratio Ur 296.6 ug/mg cr
[2021-11-21 10:02] LABS: Vitamin D 25-OH Total 21.4 ng/mL (>30)
[2021-11-22 21:32] LABS: LDL Cholesterol Direct 89 mg/dL (<100)
[2021-11-23 09:23] LABS: Vitamin B12 852 pg/mL (200-900)
== END 2021-11-21 07:08 | disposition home or self-care (01) ==
LOC: HO.LAB 07:07
PROVIDERS: PCP Internal Medicine Geriatric Medicine; Visit Provider Internal Medicine
DX: E11.65 Type 2 diabetes mellitus with hyperglycemia (principal); E04.2 Nontoxic multinodular goiter; E55.9 Vitamin D deficiency, unspecified; Z79.4 Long term (current) use of insulin
CPT/HCPCS: 36415; 80053; 80061; 82043; 82306; 82607; 83036; 83721; 84439; 84443

== ENCOUNTER → 2021-11-26 09:43 | Outpatient (BNVA) | payer OTHER, SELFPAY | PROVIDERS: PCP Internal Medicine Geriatric Medicine; Visit Provider Internal Medicine | DX: E11.65 Type 2 diabetes mellitus with hyperglycemia (principal); E04.2 Nontoxic multinodular goiter; E55.9 Vitamin D deficiency, unspecified; E78.5 Hyperlipidemia, unspecified; I10 Essential (primary) hypertension; E83.52 Hypercalcemia; Z79.4 Long term (current) use of insulin; Z79.899 Other long term (current) drug therapy | CPT/HCPCS: Q3014 ==

== ENCOUNTER 2021-12-26 06:57 | Emergency (ER) | payer OTHER, MEDICAID, SELFPAY ==
--- NOTE | ~2021-12-26 | XR_ITS ---
EXAMINATION: XR ABDOMEN KUB CLINICAL INDICATION: Constipation for 3 weeks COMPARISON: 12/06/2019 TECHNIQUE: AP view of the abdomen. FINDINGS: Prominent formed stool throughout the large bowel with no bowel dilatation to suggest obstruction. XR/XR KUB IMPRESSION: Large volume of stool throughout the colon compatible with the history of constipation. No evidence of obstruction.
[2021-12-26 07:14] VITALS: BP 167/73; PULSE 85; RESP 18; TEMP 36.8; O2SAT 97; BMI 35.5
--- NOTE | 2021-12-26 08:23 | ED_ITS ---
HPI - General Adult General Chief complaint: General Medical Stated complaint: back and leg pain Time Seen by Provider: 12/26/21 08:02 Source: patient, RN notes reviewed and old records reviewed Mode of arrival: ambulatory Limitations: language barrier ( hospital diplomatic interpreter used.) History of Present Illness HPI narrative: 71-year-old latvian-speaking male, with a past medical history significant for hyperlipidemia, hypertension, nonalcoholic fatty liver disease, type 2 diabetes, and chronic back pain, who presents today with persistent chronic back pain x 2 months and constipation x 3 weeks. Patient reports that he has a history of sciatica, and he has been seen here twice in the last 3 months for this. He states that his current back pain is typical of his sciatic symptoms, reports the pain is all over his back, and radiates down his left leg. He denies any recent back trauma or injury. He reports he has some relief from the Flexeril and Ibuprofen that was prescribed to him on 11/18/21. He states that his chronic back pain has been exacerbated because of his constipation and straining. He states that he has not had a full bowel movement normal last 3 weeks, he was able to have a small bowel movement that was hard stool this morning. Reports that he has been manually disimpacting himself as well as taking everything to treat his constipation without any relief. He reports that he has some abdominal discomfort and bloating because he has not been able have a bowel movement. He denies any fevers, chills, nausea, vomiting, or diarrhea. He denies any chest pain or shortness of breath. Denies any urinary or bowel incontinence. Denies saddle paraesthesias. No other complaints or concerns at this time. MD complaint: Back pain and constipation Onset (ago): week(s) Location: back and abdomen Radiation: back and extremity Severity: moderate Severity scale (1-10): 6 Quality: aching Pain Consistency: constant Relieving factors: immobilization and rest Exacerbating factors: movement Treatments prior to arrival: none Related Data Home Medications Medication Instructions Recorded Confirmed alcohol swabs 1 pad topical PRN 05/07/20 11/26/21 amlodipine 5 mg tablet 5 mg PO QAM 05/07/20 11/26/21 aspirin 81 mg tablet,delayed 81 mg PO DAILY 05/07/20 11/26/21 release blood sugar diagnostic #10 ea 05/07/20 11/26/21 chlorthalidone 50 mg tablet 50 mg PO QAM 05/07/20 11/26/21 gabapentin 100 mg capsule 100 mg PO BEDTIME 05/07/20 11/26/21 insulin syringe-needle U-100 1 mL #10 ea 05/07/20 11/26/21 29 gauge x 1/2 spironolactone 25 mg tablet 25 mg PO QAM 05/07/20 11/26/21 tamsulosin 0.4 mg capsule 0.4 mg PO BEDTIME 05/07/20 11/26/21 verapamil 120 mg tablet,extended 120 mg PO DAILY 05/07/20 11/26/21 release cetirizine 10 mg tablet 10 mg PO DAILY PRN allergy symptoms 08/21/20 11/26/21 polyethylene glycol 3350 17 17 g PO DAILY PRN constipation 08/12/21 11/26/21 gram/dose oral powder (Miralax) sennosides 8.6 mg tablet (senna) 17.2 mg PO DAILY PRN constipation 08/12/21 11/26/21 Previous Rx's Medication Instructions Recorded pen needle, diabetic 32 gauge x 1 ea miscellaneous QID 30 days 08/11/20 (Pentips) #100 ea atorvastatin 40 mg tablet 40 mg PO DAILY 30 days #30 tabs 01/28/21 docusate sodium 100 mg capsule 200 mg PO BEDTIME #60 caps 03/25/21 (Colace) methylcellulose (laxative) 500 mg 500 mg PO BID #60 tabs 03/25/21 tablet (Citrucel) omeprazole 20 mg capsule,delayed 20 mg PO DAILY #14 caps 04/04/21 release liraglutide 0.6 mg/0.1 mL (18 mg/3 1.8 mg (0.3 mL) subcut DAILY #9 mL 06/24/21 mL) subcutaneous pen injector (Givespark 3-Beto) pen needle, diabetic 32 gauge x #125 ea 09/01/21 (BD Ultra-Fine Marry Pen Needle) lidocaine 5 % topical patch 1 patch topical DAILY PRN pain #15 11/03/21 ea morphine 15 mg immediate release 15 mg PO Q8H PRN pain #6 tabs 11/03/21 tablet cyclobenzaprine 10 mg tablet 10 mg PO TID #30 tabs 11/18/21 ibuprofen 800 mg tablet 800 mg PO TID #30 tabs 11/18/21 canagliflozin 300 mg tablet 300 mg PO DAILY 30 days #30 tabs 11/26/21 (Invokana) cholecalciferol (vitamin D3) 50 50 mcg PO DAILY 30 days #30 caps 11/26/21 mcg (2,000 unit) capsule insulin glargine U-300 conc 300 80 unit (0.2667 mL) subcut DAILY 11/26/21 unit/mL (3 mL) subcutaneous pen #6 mL (Toujeo Max U-300 SoloStar) insulin lispro 100 unit/mL 30 unit (0.3 mL) subcut TID 30 11/26/21 subcutaneous pen (Humalog Kw days #27 mL (U-100) Insulin) metformin 1,000 mg tablet 1,000 mg PO BID #60 tabs 11/26/21 bisacodyl 10 mg rectal suppository 10 mg [place] DAILY #12 ea 12/26/21 (Dulcolax (bisacodyl)) cyclobenzaprine 10 mg tablet 10 mg PO TID PRN muscle spasm #10 12/26/21 tabs polyethylene glycol 3350 17 17 g PO DAILY #119 grams 12/26/21 gram/dose oral powder (Miralax) Allergies Allergy/AdvReac Type Severity Reaction Status Date / Time lisinopril [LISINOPRIL] Allergy Severe ANGIOEDEMA Verified 12/26/21 07:14 prednisone [PREDNISONE] Allergy Mild ITCHY Verified 11/26/21 10:33 Review of Systems Review of Systems: Constitutional: No Fever, No Chills ENT/Mouth: No sore throat, No Rhinorrhea, No Swallowing Difficulty Eyes: No Eye Pain, No Swelling, No Redness Cardiovascular: No Chest Pain, No SOB, No Orthopnea, No Edema Respiratory: No Cough, No Sputum, No Wheezing, No dyspnea Gastrointestinal: +Abdominal cramping, + Abdominal bloating, +Constipation, No Nausea, No Vomiting, No abdominal Pain, No Hematochezia, No Melena Genitourinary: No Dysuria, No Urinary Frequency, No Hematuria Musculoskeletal: No joint pain, No Myalgias Skin: No Skin Lesions, No rash Neuro: No Weakness, No Numbness, No Dizziness, No Headache Psych: No Anxiety/Panic, No Depression Heme/Lymph: No Bruising, No Lymphadenopathy Endocrine: No Polyuria, No Polydipsia [facility] Past Medical History Attestation statement: The following information was validated with the patient. Source: nursing notes reviewed Medical History Basal cell carcinoma (BCC) Familial hypocalciuric hypercalcemia Heart murmur HLD (hyperlipidemia) HTN (hypertension) Multinodular thyroid NAFLD (nonalcoholic fatty liver disease) Skin lesion of left lower extremity T2DM (type 2 diabetes mellitus) Transaminitis Vitamin D deficiency Surgical History Hx of appendectomy Hx of cholecystectomy Hx of colonoscopy Hx of esophagogastroduodenoscopy Hx of melanoma excision Family History Family History Father CVD (cardiovascular disease) Diabetes Brother CVD (cardiovascular disease) Diabetes FH: heart attack Social History Social History Household Members: Family Alcohol intake: never Patient Tobacco Use Status: Never used Tobacco Use of substances other than those prescribed or required for medical reasons: No Advance Directives: Yes Advance Directives Information Provided: Yes Advance Directives on File: No Physical Exam ED Vital Signs: Vital Signs - 24 hr 12/26/21 07:14 12/26/21 09:32 Temperature 98.2 F Pulse Rate 85 77 Respiratory Rate 18 18 Blood Pressure 167/73 H 160/69 H Pulse Oximetry 97 97 Oxygen Delivery Method Room Air Room Air BMI result Body Mass Index 35.5 Appearance: Alert. Oriented X3. No acute distress. Eyes: Pupils equal, round and reactive to light. ENT: Pharynx normal. Neck: Normal inspection. Neck supple. CVS: S1-S2 regular.Normal heart rate and rhythm. Pulses normal. Respiratory: Lungs clear to auscultation bilaterally, no wheezes, rhonchi, or rales. No respiratory distress. Breath sounds normal. Abdomen: Abdomen is soft, mildly distended and is diffusely tender, no point tenderness with palpation. Dullness to percussion. Hypoactive bowel sounds. Skin: There is a 6cm round area of erythema overlying the mid left and right buttocks, consistent with a stage 1 pressure ulcer. Superior to this region, at the cleft of the buttocks, there is a 3cm linear superficial breakdown of the skin, consistent with an anal fissure. Skin warm and dry. Normal skin color. Normal skin turgor. No rashes. Extremities: No cervical, thoracic or lumbar spine tenderness. Diffuse tenderness to palpation throughout the entire back. +straight leg raise on the left. 5/5 strength in lower extremities. Distal sensation and circulation in tact. Neuro: Oriented X 3. No motor deficit. No sensory deficit. Ambulated with a steady gait. Rectal: Good rectal tone, no stool in rectum. Course Course Course Narrative: This is a 71-year-old latvian-speaking male, with a past medical history significant for hyperlipidemia, hypertension, nonalcoholic fatty liver disease, type 2 diabetes, and chronic back pain, who presents today with persistent chronic back pain x 2 months and constipation x 3 weeks. No red flag symptoms of low back pain. Plan: KUB upright x-ray ordered. Patient has been seen multiple times for back pain, patient has no new trauma or injury to his back and his back pain feels typical of his sciatica and has no red flag symptoms today. He last had a lumbar x-ray performed on 09/23/2021 which showed mild bridging osteophyte on left lateral T12-L1 and L1-L2 disc level, no lumbar imaging necessary at today's visit. Reevaluation(s) Reevaluation #1: - KUB reviewed has large volume of stool throughout the colon compatible with history of constipation. No evidence of obstruction. - Rectal exam performed with no stool present in rectum. Stage 1 pressure ulcer and early stage of an anal fissure noted at the superior cleft of the buttocks. - Lactulose 30 g, senna 15 mL, Fleet enema 133 mL, MiraLax 17 g PO ordered for constipation. Tylenol 975mg PO, Cyclobenzaprine 10mg PO, and Ketorolac 30mg IM ordered for back pain. Time: 09:28 Reevaluation #2: Patient's pain is significantly improved after dose of Flexeril. He got an enema, was unable to retain it. He did not have a bowel movement but he is feeling better would like to be discharged home. Will DC with bowel regimen and Flexeril for his back pain which has worked for him before. Will also give him referral to chronic Pain Management as this is a recurring, chronic issue for him. Patient stable for discharge home. Time: 11:26 Medical Decision Making Imaging Data KUB x-ray: Radiologist's impression: EXAMINATION: XR ABDOMEN KUB CLINICAL INDICATION: Constipation for 3 weeks? COMPARISON: 12/06/2019? TECHNIQUE: AP view of the abdomen. FINDINGS: Prominent formed stool throughout the large bowel with no bowel dilatation to suggest obstruction. XR/XR KUB IMPRESSION: Large volume of stool throughout the colon compatible with the history of constipation. No evidence of obstruction. ? Dictated By: Srini Baum MD Discharge Plan Discharge Clinical Impression: Constipation, Sciatica Patient Disposition: Home, Self-Care Instructions: Constipation (ED), Sciatica (ED) Additional Instructions: You were treated for constipation and sciatica in the emergency department today. Use the Dulcolax suppository and MiraLax as prescribed. Drink plenty of fluids, eat a diet high in fiber, and perform exercises as tolerated as this can help with constipation. Take cyclobenzaprine as directed as needed for muscle spasms. No bending, lifting or twisting. Use ice several times per day for 20 minutes at a time for the next 48 hours and then change to heat. Take medications as prescribed to help with pain and discomfort. Follow up with your Primary Care Doctor this week. If your pain worsens, if you develop new numbness, tingling, weakness, loss of function or incontinence call 911 or come back to the ER right away for evaluation. Hoy lo trataron por estre?imiento y ci?donato en el departamento de emergencias. Use el supositorio de Dulcolax y MiraLax seg?n lo prescrito. Lia muchos l?quidos, lleve fernanda dieta dulce en fibra y realice ejercicios seg?n lo tolere, ya que esto puede ayudar con el estre?imiento. [place] la ciclobenzaprina seg?n las indicaciones seg?n sea necesario para los espasmos musculares. Sin doblar, levantar o torcer. Use hielo varias veces al d?a [place] 20 minutos a la vez [place] las pr?ximas 48 horas y luego cambie a calor. [place] los medicamentos seg?n lo prescrito para ayudar con el dolor y la incomodidad. [place] un seguimiento con brewer m?dico de atenci?n primaria esta semana. Si brewer dolor empeora, si desarrolla un nuevo entumecimiento, hormigueo, debilid ad, p?rdida de funci?n o incontinencia, llame al 911 o regrese a la fili de emergencias de inmediato para fernanda evaluaci?n. Prescriptions: New polyethylene glycol 3350 [Miralax] 17 gram/dose powder 17 g PO DAILY Qty: 119 0RF bisacodyl [Dulcolax (bisacodyl)] 10 mg suppository 10 mg [place] DAILY Qty: 12 0RF cyclobenzaprine 10 mg tablet 10 mg PO TID PRN (Reason: muscle spasm) Qty: 10 0RF No Action pen needle, diabetic [Pentips] 32 gauge x 5/32 needle 1 ea miscellaneous QID 30 Days Qty: 100 11RF atorvastatin 40 mg tablet 40 mg PO DAILY 30 Days Qty: 30 11RF Victoza 3-Beto 0.6 mg/0.1 mL (18 mg/3 mL) pen injector 1.8 mg subcut DAILY Qty: 9 11RF (DME) pen needle, diabetic [BD Ultra-Fine Marry Pen Needle] 32 gauge x 5/32 needle See Rx Instructions .ROUTE .MEDSUPPLY Qty: 125 11RF Rx Instructions: As directed four times a day omeprazole 20 mg capsule,delayed release(DR/EC) 20 mg PO DAILY Qty: 14 0RF morphine 15 mg tablet 15 mg PO Q8H PRN (Reason: pain) Qty: 6 0RF Rx Instructions: Please take for severe pain. Patient can partially filled prescription upon request lidocaine 5 % adhesive patch,medicated 1 patch topical DAILY PRN (Reason: pain) Qty: 15 0RF Rx Instructions: leave on most painful area for up to 12 hrs ibuprofen 800 mg tablet 800 mg PO TID Qty: 30 0RF cyclobenzaprine 10 mg tablet 10 mg PO TID Qty: 30 0RF amlodipine 5 mg tablet 5 mg PO QAM gabapentin 100 mg capsule 100 mg PO BEDTIME aspirin 81 mg tablet,delayed release (DR/EC) 81 mg PO DAILY (DME) insulin syringe-needle U-100 1 mL 29 gauge x 1/2 syringe See Rx Instructions .ROUTE QID Qty: 10 Rx Instructions: As directed alcohol swabs Pads, Medicated 1 pad topical PRN chlorthalidone 50 mg tablet 50 mg PO QAM tamsulosin 0.4 mg capsule 0.4 mg PO BEDTIME verapamil 120 mg tablet extended release 120 mg PO DAILY (DME) OneTouch Ultra Blue Test Strip Strip See Rx Instructions Not Applicable TID Qty: 10 Rx Instructions: As directed spironolactone 25 mg tablet 25 mg PO QAM cetirizine 10 mg tablet 10 mg PO DAILY PRN (Reason: allergy symptoms) Citrucel 500 mg tablet 500 mg PO BID Qty: 60 5RF docusate sodium [Colace] 100 mg capsule 200 mg PO BEDTIME Qty: 60 5RF polyethylene glycol 3350 [Miralax] 17 gram/dose powder 17 g PO DAILY PRN (Reason: constipation) sennosides [senna] 8.6 mg tablet 17.2 mg PO DAILY PRN (Reason: constipation) insulin lispro [Humalog KwikPen Insulin] 100 unit/mL insulin pen 30 unit subcut TID 30 Days Qty: 27 11RF Toujeo Max U-300 SoloStar 300 unit/mL (3 mL) insulin pen 80 unit subcut DAILY Qty: 6 11RF Invokana 300 mg tablet 300 mg PO DAILY 30 Days Qty: 30 11RF metformin 1,000 mg tablet 1,000 mg PO BID Qty: 60 11RF cholecalciferol (vitamin D3) 50 mcg (2,000 unit) capsule 50 mcg PO DAILY 30 Days Qty: 30 11RF Referrals: Travis Vargas MD [Physician] - (chronic back pain, sciatica) [facility] [Primary Care Provider] - Print Language: Yi
[2021-12-26 09:32] VITALS: BP 160/69; PULSE 77; RESP 18; O2SAT 97
[2021-12-26] MEDS: Cyclobenzaprine HCl 10 MG TABLET PO (09:41)
[2021-12-26] MEDS: Acetaminophen 325 MG TABLET 975 MG PO (09:41)
[2021-12-26] MEDS: Ketorolac Tromethamine 30 MG/ML VIAL IM (09:42)
[2021-12-26] MEDS: Sodium Phosphate,Mono-Dibasic 133 ML ENEMA PR (09:43)
[2021-12-26] MEDS: polyethylene glycoL 3350 17 GM POWD.PACK PO (09:43)
[2021-12-26] MEDS: Lactulose 20 GM/30 ML SOLUTION 30 GM PO (09:43)
--- NOTE | 2021-12-26 11:28 | PC.NURSE ---
pt reports feeling much better, no pain at this time, stil no bowel movment at this time
== END 2021-12-26 12:03 | disposition home or self-care (01) ==
PROVIDERS: Emergency Provider Emergency Medicine
DX: K59.00 Constipation, unspecified (principal); M54.32 Sciatica, left side; M54.9 Dorsalgia, unspecified; L89.311 Pressure ulcer of right buttock, stage 1; I10 Essential (primary) hypertension; E78.5 Hyperlipidemia, unspecified; E11.9 Type 2 diabetes mellitus without complications; Z79.82 Long term (current) use of aspirin; Z79.4 Long term (current) use of insulin; Z79.899 Other long term (current) drug therapy
CPT/HCPCS: 74018; 96372; 99284; J1885

== ENCOUNTER 2022-01-27 12:32 | Emergency (ER) | payer OTHER, SELFPAY ==
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
[2022-01-27 12:45] VITALS: BP 202/83; PULSE 82; RESP 18; TEMP 36.7; O2SAT 98; BMI 32.5
--- NOTE | 2022-01-27 12:55 | PC.NURSE ---
per family new med is robaxin 500mg
--- NOTE | 2022-01-27 13:08 | ECG_ITS ---
Test Reason : weakness Blood Pressure : / mmHG Vent. Rate : 079 BPM Atrial Rate : 079 BPM P-R Int : 216 ms QRS Dur : 088 ms QT Int : 358 ms P-R-T Axes : 046 003 035 degrees QTc Int : 410 ms Sinus rhythm with 1st degree A-V block Minimal voltage criteria for LVH, may be normal variant ( R in aVL ) Nonspecific T wave abnormality Abnormal ECG When compared with ECG of 04-APR-2021 04:09, No significant change was found Referred By: Myles Quintero Electronically Signed By:GREY HAN
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
[2022-01-27 13:21] LABS: Glucose, Whole Blood 160 mg/dL (60-115)
[2022-01-27] MEDS: Morphine Sulfate 4 MG/ML CARTRIDGE IVPUSH (14:01)
[2022-01-27] MEDS: ondansetron HCL 4 MG/2 ML VIAL IVPUSH (14:01)
[2022-01-27 14:04] LABS: MANUAL DIFF FLAG NO
[2022-01-27 14:10] LABS: Basophils Absolute Auto 0.1 X10*3/uL (0.0-0.2); Basophils Percent Auto 0.6 % (0-2); Eosinophils Absolute Auto 0.1 X10*3/uL (0.0-0.4); Eosinophils Percent Auto 1.1 % (0-4); Hematocrit 46.2 % (42.0-52.0); Hemoglobin 15.3 g/dl (14.0-18.0); Imm Gran Abs Auto 0.06 X10*3/uL (0.00-0.03); Imm Gran Pct Auto 0.6 % (0.0-0.4); Lymphocytes Percent Auto 18.4 % (20-40); Mean Corpuscular HGB Conc 33.1 g/dl (31.0-36.0); Mean Corpuscular Volume 87.7 fL (80.0-98.0); Monocytes Absolute Auto 0.9 X10*3/uL (0.1-1.2); Monocytes Percent Auto 8.5 % (2-11); Neutrophils Absolute Auto 7.5 x10*3/uL (2.0-8.3); Neutrophils Percent Auto 70.8 % (45-73); Platelet Count 305 X10*3/uL (160-400); Red Blood Count 5.27 X10*6/uL (4.60-5.80); White Blood Count 10.7 X10*3/uL (4.8-10.8)
[2022-01-27 14:13] LABS: Prothrombin Time 11.7 SEC (10.0-13.1)
[2022-01-27 14:14] VITALS: BP 162/68; PULSE 76; RESP 18; O2SAT 96
[2022-01-27 14:20] LABS: COVID-19 Test Negative (Negative)
[2022-01-27 14:26] LABS: Lactic Acid 1.8 mmol/L (0.5-2.0)
[2022-01-27 14:33] LABS: Alanine Aminotransferase 93 U/L (0-40); Alkaline Phosphatase 75 U/L (39-117); Anion Gap 14 (12-20); Aspartate Amino Transferase 58 U/L (5-37); Bilirubin Total 0.3 mg/dL (0.0-1.0); Blood Urea Nitrogen 22 mg/dL (9-16); Calcium 10.1 mg/dL (8.4-10.2); Carbon Dioxide 29 mmol/L (22-29); Chloride 99 mmol/L (96-108); Creatinine Clr Calc Pharmacy 73.7; Estimated Glomerular Filt Rate > 60; Glucose Random 136 mg/dL (60-115); Lipase 175 U/L (8-78); Potassium 3.4 mmol/L (3.3-5.1); Sodium 139 mmol/L (135-145); Total Protein 7.7 g/dL (6.5-8.0)
[2022-01-27 14:34] LABS: Troponin-I High Sensitivity 5.9 ng/L (<3.5-35.0)
== END 2022-01-27 16:39 | disposition home or self-care (01) ==
PROVIDERS: Emergency Provider Emergency Medicine Emergency Medical Services; PCP Internal Medicine Geriatric Medicine
DX: S09.90XA Unspecified injury of head, initial encounter (principal); S16.1XXA Strain of muscle, fascia and tendon at neck level, initial encounter; S80.11XA Contusion of right lower leg, initial encounter; S20.212A Contusion of left front wall of thorax, initial encounter; S30.1XXA Contusion of abdominal wall, initial encounter; S80.02XA Contusion of left knee, initial encounter; S40.812A Abrasion of left upper arm, initial encounter; S40.811A Abrasion of right upper arm, initial encounter; S80.811A Abrasion, right lower leg, initial encounter; S80.212A Abrasion, left knee, initial encounter; S60.812A Abrasion of left wrist, initial encounter; S60.811A Abrasion of right wrist, initial encounter; V43.52XA Car driver injured in collision with other type car in traffic accident, initial encounter; R91.8 Other nonspecific abnormal finding of lung field; E11.9 Type 2 diabetes mellitus without complications; I10 Essential (primary) hypertension; E78.5 Hyperlipidemia, unspecified; Z20.822 Contact with and (suspected) exposure to COVID-19; Y93.89 Activity, other specified; Y92.414 Local residential or business street as the place of occurrence of the external cause; Y99.9 Unspecified external cause status; Z79.82 Long term (current) use of aspirin; Z79.4 Long term (current) use of insulin; Z79.899 Other long term (current) drug therapy; Z79.02 Long term (current) use of antithrombotics/antiplatelets
CPT/HCPCS: 36415; 70450; 70486; 71250; 72125; 73590; 74176; 80053; 82947; 83605; 83690; 84484; 85025; 85610; 85730; 87635; 93005; 96374; 96375; 99284; J2270; J2405

== ENCOUNTER 2022-02-09 07:16 | Outpatient (REF) | payer OTHER, SELFPAY ==
[2022-02-09 07:53] LABS: Estimated Average Glucose 200 mg/dL; Hemoglobin A1c % 8.6 %
[2022-02-09 08:27] LABS: Alanine Aminotransferase 72 U/L (0-40); Albumin Level 4.1 g/dL (3.5-5.0); Alkaline Phosphatase 72 U/L (39-117); Anion Gap 17 (12-20); Aspartate Amino Transferase 37 U/L (5-37); Bilirubin Total 0.6 mg/dL (0.0-1.0); Blood Urea Nitrogen 25 mg/dL (9-16); Calcium 10.2 mg/dL (8.4-10.2); Carbon Dioxide 27 mmol/L (22-29); Chloride 101 mmol/L (96-108); Estimated Glomerular Filt Rate 59; Glucose Random 176 mg/dL (60-115); Potassium 4.2 mmol/L (3.3-5.1); Sodium 141 mmol/L (135-145); Total Protein 7.9 g/dL (6.5-8.0)
== END 2022-02-09 07:17 | disposition home or self-care (01) ==
LOC: HO.LAB 07:16
PROVIDERS: PCP Internal Medicine Geriatric Medicine; Visit Provider Internal Medicine
DX: E11.65 Type 2 diabetes mellitus with hyperglycemia (principal); E55.9 Vitamin D deficiency, unspecified; Z79.4 Long term (current) use of insulin
CPT/HCPCS: 36415; 80053; 82306; 83036

== ENCOUNTER 2022-02-14 09:53 | Emergency (ER) | payer OTHER, SELFPAY ==
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
[2022-02-14 10:36] VITALS: BP 160/48; PULSE 74; RESP 16; TEMP 36.1; O2SAT 97; BMI 43.5
--- NOTE | 2022-02-14 10:39 | PC.NURSE ---
PT REPORTS TAKING TYLENOL AND HAS A LIDOCAINE PATCH IN PLACE
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
[2022-02-14 14:06] VITALS: BP 146/66; PULSE 68; RESP 14; TEMP 36.7; O2SAT 96
== END 2022-02-14 14:51 | disposition home or self-care (01) ==
PROVIDERS: Emergency Provider Emergency Medicine; PCP Internal Medicine Geriatric Medicine
DX: M54.50 Low back pain, unspecified (principal); M54.6 Pain in thoracic spine
CPT/HCPCS: 72072; 72100; 99283

== ENCOUNTER 2022-02-25 08:39 | Outpatient (REF) | payer OTHER, SELFPAY ==
[2022-02-25 09:58] LABS: Anion Gap 16 (12-20); Blood Urea Nitrogen 23 mg/dL (9-16); Calcium 9.9 mg/dL (8.4-10.2); Carbon Dioxide 24 mmol/L (22-29); Chloride 104 mmol/L (96-108); Estimated Glomerular Filt Rate > 60; Glucose Random 113 mg/dL (60-115); Sodium 140 mmol/L (135-145)
== END 2022-02-25 08:40 | disposition home or self-care (01) ==
LOC: HO.LAB 08:39
PROVIDERS: PCP Internal Medicine Geriatric Medicine; Visit Provider Internal Medicine Hypertension Specialist
DX: E11.22 Type 2 diabetes mellitus with diabetic chronic kidney disease (principal); N18.31 Chronic kidney disease, stage 3a
CPT/HCPCS: 36415; 80048

== ENCOUNTER → 2022-03-01 08:49 | Outpatient (BNVA) | payer OTHER, SELFPAY | PROVIDERS: PCP Internal Medicine Geriatric Medicine; Visit Provider Internal Medicine | DX: E11.65 Type 2 diabetes mellitus with hyperglycemia (principal); Z79.4 Long term (current) use of insulin; E78.5 Hyperlipidemia, unspecified; I10 Essential (primary) hypertension; E04.2 Nontoxic multinodular goiter; E83.52 Hypercalcemia | CPT/HCPCS: Q3014 ==

== ENCOUNTER → 2022-03-18 13:11 | Outpatient (BNVA) | payer OTHER, SELFPAY | PROVIDERS: PCP Internal Medicine Geriatric Medicine; Referring Provider Internal Medicine Geriatric Medicine; Visit Provider Physician Assistant | DX: K76.0 Fatty (change of) liver, not elsewhere classified (principal); R10.13 Epigastric pain; K64.9 Unspecified hemorrhoids; K57.30 Diverticulosis of large intestine without perforation or abscess without bleeding; Z86.010 Personal history of colon polyps | CPT/HCPCS: 99212 ==

== ENCOUNTER → 2022-04-12 08:49 | Outpatient (BNVA) | payer OTHER, SELFPAY | PROVIDERS: PCP Internal Medicine Geriatric Medicine; Referring Provider Internal Medicine Geriatric Medicine; Visit Provider Internal Medicine Cardiovascular Disease | DX: R07.9 Chest pain, unspecified (principal); I35.0 Nonrheumatic aortic (valve) stenosis | CPT/HCPCS: 99212 ==

== ENCOUNTER 2022-04-19 08:42 | Outpatient (REF) | payer OTHER, SELFPAY ==
--- NOTE | ~2022-04-19 | US_ITS ---
EXAMINATION: US THYROID CLINICAL INFORMATION: Nontoxic multinodular goiter. COMPARISON: Ultrasound soft tissue head/neck thyroid dated 04/01/2021 and 04/03/2018. CT soft tissue neck 01/16/2019. TECHNIQUE: Linear transducer grayscale and color Doppler examination with attention to the region of the thyroid. FINDINGS: SIZE: Measurements of the solitary left thyroid lobe and nodules are given in sagittal, anteroposterior and transverse dimensions respectively. Right Thyroid Lobe: Surgically absent. Left Thyroid Lobe: 4.6 x 1.6 x 1.5 cm, volume 6.0 mL. Previously 3.6 x 1.4 x 1.5 cm, volume 3.9 mL. Parenchyma: The gland echotexture is heterogeneous. Thyroid vascularity is increased. Isthmus: 0.5 cm in maximum AP dimension. Previously 0.4 cm. Estimated total number of nodules greater than or equal to 1 cm: 1. Tapper Bit nodules are described as follows: 1. Location: Right thyroid lobe medial bed questioned nodule. Size: 0.7 x 0.3 x 0.5 cm, volume 0.1 mL. Previously: New since the previous study. Nodule characteristics: Composition: Solid (2). Echogenicity: Hypoechoic (2). Shape: Not taller than wide (0). Margins: Smooth (0). Echogenic Foci: Comet-tail artifacts (0). ACR TI-RADS total points: 4 ACR TI-RADS category: 4 2. Location: Left mid. Size: 0.4 x 0.3 x 0.4 cm, volume 0.02 mL. Previously: 0.5 x 0.3 x 0.4 cm, volume 0.04 mL. Nodule characteristics: Composition: Solid (2). Echogenicity: Hyperechoic (1). Shape: Not taller than wide (0). Margins: Ill-defined (0). Echogenic Foci: Macrocalcifications (1). ACR TI-RADS total points: 4 Previous: 5 ACR TI-RADS category: 4 Previous: 4 Significant change in size (>/= 20% in 2 dimensions and minimal increase of 2 mm or 50% or greater increase in volume): Change in features: Change in ACR TI-RADS risk category: 3. Location: Left mid. Size: 1.2 x 0.7 x 0.8 cm, volume 0.4 mL. Previously: 1.1 x 0.7 x 1.0 cm, volume 0.4 mL. Nodule characteristics: Composition: Solid (2). Echogenicity: Isoechoic (1). Shape: Not taller than wide (0). Margins: Lobulated (2). Echogenic Foci: Punctate echogenic foci (3). ACR TI-RADS total points: 8 Previous: 8 ACR TI-RADS category: 5 Previous: 5 Significant change in size (>/= 20% in 2 dimensions and minimal increase of 2 mm or 50% or greater increase in volume): Change in features: Change in ACR TI-RADS risk category: 4. Location: Left inferior. Size: 0.5 x 0.3 x 0.5 cm, volume 0.03 mL. Previously: 0.5 x 0.2 x 0.5 cm, volume 0.03 mL. Nodule characteristics: Composition: Solid (2). Echogenicity: Hyperechoic (1). Shape: Not taller than wide (0). Margins: Ill-defined (0). Echogenic Foci: Macrocalcifications (1). ACR TI-RADS total points: 4 Previous: 5 ACR TI-RADS category: 4 Previous: 4 Significant change in size (>/= 20% in 2 dimensions and minimal increase of 2 mm or 50% or greater increase in volume): Change in features: Change in ACR TI-RADS risk category: 5. Location: Left inferior. Size: 0.5 x 0.5 x 0.6 cm, volume 0.07 mL. Previously: 0.4 x 0.5 x 0.6 cm, volume 0.07 mL. Nodule characteristics: Composition: Solid (2). Echogenicity: Hyperechoic (1). Shape: Not taller than wide (0). Margins: Smooth (0). Echogenic Foci: None (0). ACR TI-RADS total points: 3 Previous: Not documented ACR TI-RADS category: 3 Previous: Not documented Significant change in size (>/= 20% in 2 dimensions and minimal increase of 2 mm or 50% or greater increase in volume): Change in features: Change in ACR TI-RADS risk category: NODES: No lymphadenopathy is seen in the tissue surrounding the thyroid gland. US/US thyroid IMPRESSION: Stable left thyroid nodules. According to TI RADS criteria, fine-needle aspiration largest nodule in the mid left lobe would be recommended. Question new small nodule in the right thyroid bed. ACR TI-RADS RECOMMENDATION REFERENCE: Ultrasound-guided fine-needle aspiration, followup ultrasound, no further follow up. * TR1 (0 point) and TR 2 (2 points): No FNA or follow up * TR3 (3 points): FNA if more than or equal to 2.5 cm in maximum dimension, followup ultrasound in 1, 3 and 5 years if 1.5 to 2.4 cm in maximum dimension. * TR4 (4-6 points): FNA if more than or equal to 1.5 cm in maximum dimension, followup ultrasound in 1, 2, 3 and 5 years if 1 to 1.4 cm in maximum dimension. * TR5 (more than or equal to 7 points): FNA if more than or equal to 1 cm in maximum dimension, followup ultrasound every year for 5 years if 0.5 to 0.9 cm in maximum dimension. * TR3, TR4 or TR5 nodules that are below the size threshold for follow up receive no follow up.
== END 2022-04-19 08:43 | disposition home or self-care (01) ==
LOC: HO.US 08:42
PROVIDERS: Visit Provider Internal Medicine
DX: E04.2 Nontoxic multinodular goiter (principal)
CPT/HCPCS: 76536

== ENCOUNTER → 2022-04-22 08:14 | Outpatient (REF) | payer OTHER, SELFPAY | LOC: HO.CARD 08:14 | PROVIDERS: PCP Internal Medicine Geriatric Medicine; Visit Provider Internal Medicine Cardiovascular Disease | DX: Z13.89 Encounter for screening for other disorder (principal) ==

== ENCOUNTER → 2022-06-01 08:08 | Outpatient (REF) | payer OTHER, SELFPAY ==
--- NOTE | ~2022-06-01 | NM_ITS ---
EXERCISE MYOCARDIAL PERFUSION STUDY INDICATION: Chest pain, assess for coronary disease and ischemia TECHNIQUE: The patient was brought in for an exercise perfusion study on 06/01/2022. Patient performed exercise as per [facility]den protocol and was injected 35 mCi of sestamibi once target heart rate was achieved. Images were obtained using the SPECT gamma camera interlaced with the gating device. Images were obtained in supine position. Resting perfusion study was performed on 06/02/2022. Patient was administered 35 mCi of sestamibi intravenously at rest. Images were then obtained in supine position. Images were processed with the software and compared side to side in short axis, horizontal long axis and vertical long axis views. Total DLP 193mGy-cm. FINDINGS: Raw images were reviewed. Arms by the patient's side. The stress perfusion study showed no significant perfusion defects. Both uncorrected as well as CT attenuation corrected images were reviewed. The gated study shows normal LV systolic function with calculated LVEF of 62%. LV cavity is normal in size. The gated study shows normal wall thickening and contraction of segments. Resting study shows no significant perfusion abnormality. Gating at rest reveals normal wall motion with ejection fraction at 59%. The findings are consistent with no reversible or fixed perfusion abnormality. NM/NM dionna perf SPECT rest & str IMPRESSION: 1. Myocardial perfusion imaging study shows normal myocardial perfusion at the attained workload of 4.6METS. 2. Gated LVEF is 62% during stress and 59% during rest. 3. Transient ischemic dilatation not present. EKG component of the test reported separately.
--- NOTE | 2022-06-01 08:13 | CA_ITS ---
Acquisition Time: 2022-06-01 08:41:49 Total Exercise Time: 00:09:09 Test Indications: CP Medications: SEE CHART Protocol: MOD VIRGIL Max HR: 115 BPM 77% of Pred: 149 BPM Max BP: 200/050 mmHG Max Work Load: 4.6 METS Exercise stress test with exercise 9 min 9 sec of Modified Virgil protocol, with exercise to his max capacity and needing to stop due to fatigue, achieving 76% MPHR, 4.6 METS, without anginal symptoms, with isolated PACs, with hypertensive response to exercise with max BP 200/50, without EKG changes meeting criteria for ischemia at acheived workload. Nuclear images pending. Test reviewed with Dr Zamarripa. Referred By: Jaime Zamarripa Overread By: ROSMERY DIANA
== END ==
LOC: HO.CARD 08:08
PROVIDERS: PCP Internal Medicine Geriatric Medicine; Visit Provider Internal Medicine Cardiovascular Disease
DX: R07.9 Chest pain, unspecified (principal)
CPT/HCPCS: 78452; 93017; A9500; J0280; J2785

== ENCOUNTER 2022-06-20 06:19 | Emergency (ER) | payer OTHER, SELFPAY ==
[2022-06-20 06:29] VITALS: BP 117/60; PULSE 81; RESP 20; TEMP 36.6; O2SAT 97; BMI 35.0
--- OUTSIDE RECORDS SUMMARY | 2022-06-20 06:37 | XMS_ITS ---
:1950 Author Care Team Providers Name Role Phone FINESSE ESPINOZA MD Primary Care Provider [phone] Allergies Code Code System Name Reaction Severity Status Onset NKDA ? Medications Name Status Start Date Stop Date ? ? acetaminophen 500 mg tablet Completed ? 09/2020 TAKE 1 TABLET BY MOUTH EVERY 7 TO 8 HARI RS NEEDED. NO MORE THAN 8 TABLETS IN 24 HOURS. acetaminophen extra strength 500 mg tabs Completed ? 01/14/2021 alcohol prep pad Completed ? 01/14/2021 Alcohol Prep Pads Active ? Not available USE DIRECTED FIVE TIMES DAILY alcohol preps 70 % pads Completed ? 01/15/20 21 alcohol preps 70 % pads Completed ? 01/15/20 21 all day allergy 10 mg tabs Completed ? 01/14 amlodipine 10 mg tablet Completed ? 10/08/19 17 amlodipine 5 mg tablet Active ? Not avail able TAKE 1 TABLET BY MOUTH EVERY MORNING amlodipine besylate 5 mg tabs Completed ? amlodipine besylate 10 mg tabs Completed ? 0 01/14/2021 amlodipine besylate 5 mg tabs Completed ? amox/k clav tab 875-125 Completed ? 01/15/20 21 amoxicillin 500 mg caps Completed ? 10/08/19 17 amoxicillin 500 mg capsule Completed ? 01/14 artificial mae tears Completed ? 01/14/2021 aspir-low 81 mg tbec Completed ? 01/14/2021 aspirin 81 mg tablet,delayed release Active ? Not available TAKE 1 TABLET BY MOUTH EVERYDAY AT NOON aspirin 81 mg tbec Completed ? 01/14/2021 aspirin adult low strength 81 mg tbec Completed ? 01/14/2021 aspirin adult low strength 81 mg tbec Completed ? 01/14/2021 aspirin ec low dose 81 mg tbec Completed ? 0 01/14/2021 aspirin low dose 81 mg tbec Completed ? 09/2020 atorvastatin 40 mg tablet Active ? Not av ailable TAKE 1 TABLET BY MOUTH AT BEDTIME atorvastatin calcium 40 mg tabs Completed ? 01/14/2021 azithromycin 250 mg tablet Completed ? 01/14 azithromycin 250 mg tabs Completed ? 021 bacitracin 500 unit/gm oint Completed ? 09/2020 bacitracin 500 unit/gram eye ointment Completed ? 01/14/2021 baclofen 10 mg tablet Completed ? 04/14/2021 TAKE 1 TABLET BY MOUTH TWICE DAILY baclofen 10 mg tabs Completed ? 01/14/2021 banophen 25 mg caps Completed ? 01/14/2021 celecoxib 200 mg capsule Completed ? 021 cephalexin 500 mg caps Completed ? cephalexin 500 mg capsule Completed ? 2020 TAKE 1 TABLET BY MOUTH TWICE DAILY FOR 7 DAYS cetirizine 10 mg tablet Completed ? 04/14/20 TAKE 2 TABLETS BY MOUTH TWICE DAILY cetirizine hcl 10 mg tabs Completed ? 2020 cetirizine hydrochloride 10 mg tabs Completed ? 01/14/2021 cetirizine hydrochloride 10 mg tabs Completed ? 01/14/2021 chlorthalidone 50 mg tabs Completed ? 2020 chlorthalidone 25 mg tabs Completed ? 2020 chlorthalidone 50 mg tablet Active ? Not available TAKE 1 TABLET BY MOUTH EVERY MORNING chlorthalidone 50 mg tabs Completed ? 2020 cilostazol 100 mg tabs Completed ? ciprofloxacin 500 mg tablet Completed ? 09/2020 TAKE 1 TABLET BY MOUTH EVERY TWELVE HOURS ciprofloxacin hydrochloride 500 mgtabs Completed ? 01/14/2021 clindamycin hcl 300 mg caps Completed ? 09/2020 clindamycin HCl 300 mg capsule Completed ? 0 01/14/2021 cyclobenzaprine 10 mg tablet Completed ? 09/2020 cyclobenzaprine hcl 10 mg tabs Completed ? 0 01/14/2021 diclofenac sodium 50 mg tablet,delayed release Completed ? 01/14/[address] 50 mg tbec Completed ? 01/14/2021 diphenhist 25 mg tabs Completed ? 01/14/2021 docqlace 100 mg caps Completed ? 01/14/2021 docusate sodium 100 mg caps Completed ? 09/2020 docusate sodium 100 mg capsule Active ? N ot available TAKE 2 CAPSULES BY MOUTH EVERY DAY AT BEDTIME dok 100 mg caps Completed ? 01/14/2021 dok 100 mg caps Completed ? 01/14/2021 doxycycline hyclate 100 mg caps Completed ? 01/14/2021 doxycycline hyclate 100 mg caps Completed ? 01/14/2021 doxycycline hyclate 100 mg capsule Completed ? 01/14/2021 TAKE 1 CAPSULE BY MOUTH TWICE DAILY FOR 7 DAYS doxycycline hyclate 100 mg tabs Completed ? 10/07/2016 easy touch alcohol prep pads/medium 70 % pads Completed ? 01/14/2021 epinephrine 0.3 mg/0.3ml soaj Completed ? epipen 2-beto 0.3 mg/0.3ml soaj Completed ? 0 01/14/2021 famotidine 20 mg tabs Completed ? 01/14/2021 famotidine 20 mg tablet Completed ? 01/15/20 21 famotidine 40 mg tablet Completed ? 01/15/20 21 Fiber Laxative (methylcellulose) 500 mg tablet Active ? Not available TAKE 1 TABLET BY MOUTH TWICE DAILY freestyle addisno lite Completed ? 09/21/2017 furosemide 20 mg tabs Completed ? 01/14/2021 gabapentin 100 mg caps Completed ? gabapentin 100 mg caps Completed ? gabapentin 100 mg capsule Active ? Not av ailable TAKE 2 CAPSULES BY MOUTH EVERY DAY AT BEDTIME gabapentin 300 mg caps Completed ? glipizide 5 mg tablet Completed ? 10/07/2016 glipizide 5 mg tabs Completed ? 01/14/2021 hm aspirin ec low dose 81 mg tbec Completed ? 01/14/2021 hm pain relief extra strength 500 mg tabs Completed ? 01/14/2021 humalog 100 unit/ml soln Completed ? 021 humalog 100 unit/ml soln Completed ? 021 Humalog U-100 Insulin 100 unit/mL subcutaneous solution Active ? Not available INJECT 30 UNITS SUBCUTANEOUSLY THREE TIMES DAILY BEFORE MEALS hydralazine hcl 25 mg tabs Completed ? 01/14 hydralazine hcl 50 mg tabs Completed ? 01/14 hydrochlorothiazide 25 mg tablet Completed ? 10/07/2016 hydrochlorothiazide 25 mg tabs Completed ? 0 01/14/2021 hydrocodone 5 mg-acetaminophen 325 mg tablet Completed ? 01/14/2021 TAKE 1 TABLET BY MOUTH EVERY 6 HOURS NEEDED FOR PAIN hydrocortisone 1 % crea Completed ? 01/15/20 21 hydrocortisone 1 % topical cream Completed ? 01/14/2021 hydrocortisone 2.5 % crea Completed ? 2020 ibuprofen 600 mg tabs Completed ? 01/14/2021 ibuprofen 600 mg tablet Completed ? 01/15/20 21 ibuprofen 600 mg tabs Completed ? 01/14/2021 insulin syringe U-100 with needle 1 mL 29 gauge x 1/2 Active ? Not available USE FOUR TIMES DAILY TO INJECT INSULIN Invokana 300 mg tablet Active ? Not avail able TAKE 1 TABLET BY MOUTH EVERY MORNING irbesartan 75 mg tablet Completed ? 01/15/20 21 jardiance 25 mg tabs Completed ? 01/14/2021 Jardiance 25 mg tablet Completed ? TAKE 1 TABLET BY MOUTH EVERY MORNING ketorolac tromethamine 0.5 % soln Completed ? 01/14/2021 lactulose 10 gram/15 mL oral solution Completed ? 01/14/2021 lantus 100 unit/ml soln Completed ? 01/15/20 21 lantus 100 unit/ml soln Completed ? 01/15/20 21 Lantus U-100 Insulin 100 unit/mL subcutaneous solution Active ? Not available INJECT 65 UNITS SUBCUTANEOUSLY AT BEDTIME latanoprost 0.005 % eye drops Active ? No t available PLACE 1 DROP IN EACH EYE AT BEDTIME Laxative (bisacodyl) 5 mg tablet,delayed release Completed ? 01/14/2021 lido/prilocn cre 2.5-2.5% Completed ? 2020 lisinopril 40 mg tablet Completed ? 09/22/19 18 lisinopril 40 mg tabs Completed ? 01/14/2021 lisinopril 5 mg tablet Completed ? lorazepam 1 mg tabs Completed ? 01/14/2021 metformin 1,000 mg tablet Active ? Not av ailable TAKE 1 TABLET BY MOUTH TWICE DAILY AT NOON AND IN THE EVENING W ITH MEALS metformin hcl 1000 mg tabs Completed ? 01/14 metformin hydrochloride 1000 mg tabs Completed ? 01/14/2021 metformin hydrochloride 1000 mg tabs Completed ? 01/14/2021 methylprednisolone 4 mg tablets in a dose pack Completed ? 01/14/2021 methylprednisolone dose pack 4 mg tbpk Completed ? 01/14/2021 metoprolol succinate ER 50 mg tablet,extended release 24 Complet ed ? 01/14/2021 hr metoprolol succinate er 50 mg tb24 Completed ? 01/14/2021 mupirocin 2 % topical ointment Completed ? 0 01/14/2021 APPLY TOPICALLY TO AFFECTED AREA(S) TWICE DAILY FOR 7 DAYS nitrostat 0.4 mg subl Completed ? 01/14/2021 omeprazole 20 mg capsule,delayed release Active ? Not available TAKE 1 CAPSULE BY MOUTH ONCE DAILY omeprazole 20 mg cpdr Completed ? 01/14/[address] 20 mg cpdr Completed ? omeprazole dr 40 mg cpdr Completed ? ondansetron HCl 4 mg tablet Active ? Not available TAKE 1 TABLET BY MOUTH EVERY 6 HOURS NEEDED FOR NAUSEA AND V OMITING onetouch kit ultra 2 Completed ? 09/21/2017 onetouch addison ultra Completed ? 01/14/2021 onetouch addison ultra bl Completed ? 01/14/2021 OneTouch Ultra Blue Test Strip Completed ? 0 01/14/2021 TEST BLOOD SUGAR 3 TIMES A DAY OneTouch Ultra Test strips Active ? Not a vailable TEST BLOOD SUGAR 3 TIMES A DAY onetouch us mis lancets Completed ? 01/15/20 21 oxycod/apap tab 5-325mg Completed ? 01/15/20 21 oxycod/apap tab 7.5-325 Completed ? 01/15/20 21 oxycodone 5 mg tablet Completed ? 01/14/2021 oxycodone hcl 5 mg tabs Completed ? 01/15/20 21 peg 3350-electrolytes 236 gram-22.74 gram-6.74 gram-5.86 Complet ed ? 01/14/2021 gram solution polyeth glyc pow 3350 nf Completed ? 021 polyethylene glycol 3350 17 gram/dose oral powder Completed ? 01/14/2021 pravastatin 20 mg tablet Completed ? 017 pravastatin sodium 20 mg tabs Completed ? prednisolone acetate 1 % susp Completed ? prednisone 10 mg tabs Completed ? 01/14/2021 prednisone 20 mg tablet Completed ? 01/15/20 21 prednisone 20 mg tabs Completed ? 01/14/2021 proair hfa 108 mcg/act aers Completed ? 09/2020 ranitidine 150 mg tablet Completed ? 021 ranitidine hcl 150 mg tabs Completed ? 01/14 repaglinide 2 mg tablet Completed ? 01/15/20 21 TAKE 1 TABLET BY MOUTH TWICE DAILY BEFORE MEALS restasis multidose 0.05 % emul Completed ? 0 01/14/2021 senna 8.6 mg tablet Completed ? 01/14/2021 sm alcohol prep pads 70 % pads Completed ? 0 01/14/2021 sm aspirin adult low strength 81 mg tbec Completed ? 01/14/2021 sm pain reliever extra strength 500 mg tabs Completed ? 01/14/2021 spironolactone 25 mg tabs Completed ? 2020 spironolactone 25 mg tablet Active ? Not available TAKE 1 TABLET BY MOUTH EVERY MORNING spironolactone 25 mg tabs Completed ? 2020 sucralfate 1 gm tabs Completed ? 01/14/2021 tamsulosin 0.4 mg capsule Active ? Not av ailable TAKE 2 CAPSULES BY MOUTH EVERY DAY AT BEDTIME thera-derm lot Completed ? 01/14/2021 tramadol 50 mg tablet Active ? Not availa ble TAKE 1 TABLET BY MOUTH ONCE DAILY NEEDED tramadol hcl 50 mg tabs Completed ? 01/15/20 21 trulicity 0.75 mg/0.5ml sopn Completed ? 09/2020 truplus lanc mis 28g Completed ? 01/14/2021 UltiCare Pen Needle 32 gauge x 5/32 Active ? Not available USE DIRECTED EVERY DAY valsartan 160 mg tabs Completed ? 01/14/2021 valsartan 80 mg tabs Completed ? 10/07/2016 verapamil ER (SR) 120 mg tablet,extended release Active ? Not available TAKE 1 TABLET BY MOUTH EVERY MORNING WITH FOOD verapamil hcl er 120 mg tbcr Completed ? 09/2020 verapamil hcl er 120 mg tbcr Completed ? 09/2020 victoza 18 mg/3ml sopn Completed ? Victoza 3-Beto 0.6 mg/0.1 mL (18 mg/3 mL) subcutaneous pen inject or Active ? Not available INJECT 1.8mg SUBCUTANEOUSLY DAILY DIRECTED Problems Name Status Onset Date Source ? Onychomycosis Active 10/07/2016 ? Type 2 Diabetes Mellitus Active 10/07/2016 ? Pain in Toe Active 10/07/2016 ? Foot Callus Active 12/07/2017 ? Foot Pain Active 12/07/2017 ? Procedures Date Name Performed by ? ? Cataract Surgery Information not avai lable Results Lab Results None recorded. Past Encounters Encounter Date Diagnosis Provider 01/14/2021 Onychomycosis; Pain in Toe; Type 2 Ernst jarek You DPM: 222 Diabetes Mellitus [facility] [address], [place] [phone], Ph. Social History Tobacco Smoking Status Never Smoker Vaccine List Vaccine Type influenza, injectable, quadrivalent 05/17/2016 Plan of Care Reminders Provider Appointments None recorded. ? ? Lab None recorded. ? ? Referral None recorded. ? ? Procedures None recorded. ? ? Surgeries None recorded. ? ? Imaging None recorded. ? ? Vitals 01/14/2021 03:00PM ESTABLISHED PATIENT 15 Height 5 ft 6 in 10/07/2020 01:00PM ESTABLISHED PATIENT 15 Height Weight BMI Blood Pressure 5 ft 6 in 235 lbs 37.9 kg/m2 116/60 mm[Hg] 07/29/2020 01:30PM ESTABLISHED PATIENT 15 Height Weight BMI Blood Pressure 5 ft 6 in 235 lbs 37.9 kg/m2 118/62 mm[Hg] 05/13/2020 01:30PM ESTABLISHED PATIENT 15 Height Weight BMI Blood Pressure 5 ft 6 in 235 lbs 37.9 kg/m2 120/64 mm[Hg] 11/27/2019 10:30AM ESTABLISHED PATIENT 15 Height Weight BMI 5 ft 6 in 235 lbs 37.9 kg/m2 09/18/2019 10:15AM ESTABLISHED PATIENT 15 Height Weight BMI 5 ft 6 in 235 lbs 37.9 kg/m2 06/28/2019 10:15AM ESTABLISHED PATIENT 15 Height Weight BMI 5 ft 6 in 235 lbs 37.9 kg/m2 04/12/2019 10:30AM ESTABLISHED PATIENT 15 Height Weight BMI 5 ft 6 in 235 lbs 37.9 kg/m2 01/30/2019 10:00AM ESTABLISHED PATIENT 15 Height Weight BMI 5 ft 6 in 235 lbs 37.9 kg/m2 11/14/2018 10:00AM ESTABLISHED PATIENT 15 Height Weight BMI 5 ft 6 in 235 lbs 37.9 kg/m2 08/29/2018 10:30AM ESTABLISHED PATIENT 15 Height Weight BMI 5 ft 6 in 235 lbs 37.9 kg/m2 05/22/2018 10:00AM ESTABLISHED PATIENT 15 Height Weight BMI 5 ft 6 in 235 lbs 37.9 kg/m2 03/06/2018 10:30AM ESTABLISHED PATIENT 15 Height Weight BMI 5 ft 6 in 235 lbs 37.9 kg/m2 12/07/2017 11:15AM ESTABLISHED PATIENT 15 Height Weight BMI 5 ft 6 in 235 lbs 37.9 kg/m2 09/21/2017 11:00AM ESTABLISHED PATIENT 15 Height Weight BMI 5 ft 6 in 235 lbs 37.9 kg/m2 06/15/2017 11:00AM ESTABLISHED PATIENT 15 Height Weight BMI Blood Pressure 5 ft 6 in 235 lbs 37.9 kg/m2 122/60 mm[Hg] 03/24/2017 11:00AM ESTABLISHED PATIENT 15 Height Weight BMI Blood Pressure 5 ft 6 in 235 lbs 37.9 kg/m2 122/60 mm[Hg] 01/06/2017 11:00AM ESTABLISHED PATIENT 15 Height Weight BMI Blood Pressure 5 ft 6 in 235 lbs 37.9 kg/m2 122/60 mm[Hg] 10/07/2016 11:00AM ESTABLISHED PATIENT 15 Height Weight BMI Blood Pressure 5 ft 6 in 235 lbs 37.9 kg/m2 122/60 mm[Hg] 07/27/2016 02:30PM NEW PATIENT 30 Height Weight BMI Blood Pressure 5 ft 6 in 235 lbs 37.9 kg/m2 120/60 mm[Hg]
--- NOTE | 2022-06-20 07:12 | ED.BACK ---
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 The patient states that he has been having intermittent lower back pain on off for 6 months. He states for the past 2 weeks the pain is gotten worse. He denies any injury. Describes the pain is a constant, sharp to dull pain located in his lower back, left greater than right. States the pain radiates down both legs to his feet. States that both legs are numb secondary to his diabetic neuropathy. He is able to walk without any difficulty. He denied loss of bowel or bladder control. Patient states that he had similar pain 2 years prior and was secondary to sciatica. He has been taking Tylenol for the pain without any relief. He denied fever, chills, frequency, urgency or dysuria. Related Data Home Medications Medication Instructions Recorded Confirmed alcohol swabs 1 pad topical PRN 05/07/20 04/12/22 amlodipine 5 mg tablet 5 mg PO QAM 05/07/20 04/12/22 aspirin 81 mg tablet,delayed 81 mg PO DAILY 05/07/20 04/12/22 release blood sugar diagnostic #10 ea 05/07/20 04/12/22 chlorthalidone 50 mg tablet 50 mg PO QAM 05/07/20 04/12/22 gabapentin 100 mg capsule 100 mg PO BEDTIME 05/07/20 04/12/22 insulin syringe-needle U-100 1 mL #10 ea 05/07/20 04/12/22 29 gauge x 1/2 verapamil 120 mg tablet,extended 120 mg PO DAILY 05/07/20 04/12/22 release cetirizine 10 mg tablet 10 mg PO DAILY PRN allergy symptoms 08/21/20 04/12/22 polyethylene glycol 3350 17 17 g PO DAILY PRN constipation 08/12/21 04/12/22 gram/dose oral powder (Miralax) sennosides 8.6 mg tablet (senna) 17.2 mg PO DAILY PRN constipation 08/12/21 04/12/22 insulin lispro 100 unit/mL 35 unit subcut TID 03/01/22 04/12/22 subcutaneous pen (Humalog KwikPen (U-100) Insulin) amitriptyline 10 mg tablet 10 mg PO BEDTIME 03/18/22 04/12/22 latanoprost 0.005 % eye drops 1 drp ophthalmic (eye) BEDTIME 03/18/22 04/12/22 Previous Rx's Medication Instructions Recorded pen needle, diabetic 32 gauge x 1 ea miscellaneous QID 30 days 08/11/20 (Pentips) #100 ea pen needle, diabetic 32 gauge x #125 ea 09/01/21 (BD Ultra-Fine Marry Pen Needle) ibuprofen 800 mg tablet 800 mg PO TID #30 tabs 11/18/21 canagliflozin 300 mg tablet 300 mg PO DAILY 30 days #30 tabs 11/26/21 (Invokana) cholecalciferol (vitamin D3) 50 50 mcg PO DAILY 30 days #30 caps 11/26/21 mcg (2,000 unit) capsule insulin glargine U-300 conc 300 80 unit (0.2667 mL) subcut DAILY 11/26/21 unit/mL (3 mL) subcutaneous pen #6 mL (Toujeo Max U-300 SoloStar) metformin 1,000 mg tablet 1,000 mg PO BID #60 tabs 11/26/21 bisacodyl 10 mg rectal suppository 10 mg NE DAILY #12 ea 12/26/21 (Dulcolax (bisacodyl)) cyclobenzaprine 10 mg tablet 10 mg PO TID PRN muscle spasm #10 12/26/21 tabs atorvastatin 40 mg tablet 40 mg PO DAILY 30 days #30 tabs 02/08/22 docusate sodium 100 mg capsule 200 mg PO BEDTIME #60 caps 04/19/22 methylcellulose (laxative) 500 mg 500 mg PO BID #60 tabs 04/19/22 tablet (Fiber Laxative (methylcellulose)) liraglutide 0.6 mg/0.1 mL (18 mg/3 1.8 mg (0.3 mL) subcut DAILY #9 mL 06/01/22 mL) subcutaneous pen injector ([email or web address] 3-Beto) cyclobenzaprine 5 mg tablet 5 mg PO TID PRN muscle spasm or 06/20/22 pain #14 tabs dexamethasone 4 mg tablet 4 mg PO DAILY 5 days #5 tabs 06/20/22 Allergies Allergy/AdvReac Type Severity Reaction Status Date / Time lisinopril [LISINOPRIL] Allergy Severe ANGIOEDEMA Verified 04/12/22 09:20 prednisone [PREDNISONE] Allergy Mild ITCHY Verified 04/12/22 09:20 Review of Systems Review of Systems: Yes all other systems are reviewed and are negative [facility] Past Medical History Medical History Basal cell carcinoma (BCC) Familial hypocalciuric hypercalcemia Heart murmur HLD (hyperlipidemia) HTN (hypertension) Multinodular thyroid NAFLD (nonalcoholic fatty liver disease) Skin lesion of left lower extremity T2DM (type 2 diabetes mellitus) Transaminitis Vitamin D deficiency Surgical History Hx of appendectomy Hx of cholecystectomy Hx of colonoscopy Hx of esophagogastroduodenoscopy Hx of melanoma excision Family History Family History Father CVD (cardiovascular disease) Diabetes Brother CVD (cardiovascular disease) Diabetes FH: heart attack Social History Social History Household Members: Family Alcohol intake: never Patient Tobacco Use Status: Never used Tobacco Advance Directives: No Physical Exam Vital Signs: Vital Signs: Last Vital Signs Temp 97.5 F 06/20/22 07:44 Pulse 79 06/20/22 07:44 Resp 18 06/20/22 07:44 BP 165/74 H 06/20/22 07:44 Pulse Ox 99 06/20/22 07:44 O2 Del Method 06/20/22 07:44 BMI result Body Mass Index 35.0 Const: General: cooperative and no acute distress Orientation/consciousness: oriented to person and oriented to place Limitations: no limitations HEENT: Head: Yes normal to inspection, Yes normocephalic and Yes atraumatic Ears: external ears normal General nose exam: Normal external nose present Face and sinus: Yes normal facial exam Mouth: Normal oral and palatal mucosa present Throat: Yes posterior oropharynx normal Eyes: Other: Patient's right pupil is larger than left secondary to surgery Neck: Neck: Yes normal visual inspection, Yes no lymphadenopathy, Yes trachea midline and Yes supple Chest: Chest palpation & inspection: normal inspection of the chest and normal palpation of entire chest wall Resp: Effort & Inspection: normal respiratory effort and able to speak in complete sentences Auscultation: clear to auscultation bilaterally Cardio: Rate: regular rate Rhythm: regular rhythm Heart sounds: S1 normal heart sound present, S2 normal heart sound present and no murmurs GI: Inspection: Yes normal to inspection Palpation (GI): Soft to palpation, nontender and no guarding Auscultation: normal bowel sounds Back/Spine/Pelvis: Other: Patient has diffuse vertebral tenderness from his thoracic to lumbar sacral spine, the tenderness is increased in the lumbar sacral spine area, he has bilateral paraspinal muscle tenderness no lumbar sacral spine area of her left greater than right, he has increased pain with bilateral leg rais raise, patient is able walk but he does appear to be in pain when he walks. Skin: Other: Patient has circumferential erythema from his knee to above his ankles bilaterally, this is not warm to the touch, this is consistent with a chronic dermatitis most likely caused by his diabetes Neuro: General: oriented to person and oriented to place Cranial nerves: Yes CN's II-XII intact bilaterally Cognition (Neuro): normal cognition Motor exam (neuro): 5/5 motor strength present throughout Extrem: General: Yes normal to inspection Psych: Appearance: grossly normal Speech and movement: Normal speech and movement present Affect: normal affect 71-year-old male who presents emergency department for evaluation of 6 months of lower back pain, worse over last 2-3 weeks, pain radiates down both legs to his feet. Patient has chronic numbness in his feet secondary to diabetic neuropathy Medical Decision Making Medical Decision Making MDM Narrative: 71-year-old male who presents emergency department for evaluation of 6 months of lower back pain with increased pain over the past 2 weeks, the pain radiates down both legs. Patient is able to walk but this makes the pain worse. He states that both of his legs are numb secondary to his diabetic neuropathy. His pain does radiate down both legs. Patient states he had similar pain in the past secondary to sciatica. Patient does have tenderness palpation of his spine which is increased in the lumbar sacral area, he also has tenderness palpation of his paraspinal muscles in the lumbar sacral area left greater than right. Has positive straight leg raises bilaterally. Given the patient's nonfocal neurologic exam, I believe that this patient does not need imaging studies at this time and can be treated with anti-inflammatory, Tylenol and muscle relaxants. Patient states the prednisone makes and itchy therefore he will be started on dexamethasone 4 mg once a day for 5 days. He was also prescribe cyclobenzaprine 5 mg 3 times a day. He was given verbal and printed instructions and discharged home. Differential Diagnosis Differential diagnosis includes but is not limited to bilateral sciatica, spinal stenosis, degenerative disc disease, degenerative arthritis, cauda equina syndrome Tests considered The following testing was considered but not selected: I did discuss x-rays with the patient, at this time I do not think that the needed since his neurologic exam is normal, there was no trauma . Patient understood this discussion and agreed with not getting x-rays Discharge Plan Discharge Clinical Impression: Lower back pain, Acute bilateral low back pain with bilateral sciatica Patient Disposition: Home, Self-Care Instructions: Sciatica (ED) Additional Instructions: Your examination and findings are consistent with sciatica Take Tylenol (acetaminophen) 500 mg pills, 2 pills every 4 to 6 hours as needed for pain. Take dexamethasone 4 mg once a day for 5 days. While you are taking dexamethasone, do not take any NSAIDs (Motrin, Advil, ibuprofen, Aleve, naproxen). Take Flexeril (cyclobenzaprine) 5 mg pills, 1 pill every 6-8 hours as needed for pain or spasm. This medication will make you sleepy. Do not drive or work while taking this medication. Follow-up with your doctor in 2 days. Please return to the emergency department if your symptoms get worse or if you develop any symptoms that are concerning to you. Prescriptions: New cyclobenzaprine 5 mg tablet 5 mg PO TID PRN (Reason: muscle spasm or pain) Qty: 14 0RF dexamethasone 4 mg tablet 4 mg PO DAILY 5 Days Qty: 5 0RF No Action pen needle, diabetic [Pentips] 32 gauge x 5/32 needle 1 ea miscellaneous QID 30 Days Qty: 100 11RF (DME) pen needle, diabetic [BD Ultra-Fine Marry Pen Needle] 32 gauge x 5/32 needle See Rx Instructions .ROUTE .MEDSUPPLY Qty: 125 11RF Rx Instructions: As directed four times a day atorvastatin 40 mg tablet 40 mg PO DAILY 30 Days Qty: 30 11RF docusate sodium 100 mg capsule 200 mg PO BEDTIME Qty: 60 5RF Fiber Laxative (methylcellulo) 500 mg tablet 500 mg PO BID Qty: 60 5RF Victoza 3-Beto 0.6 mg/0.1 mL (18 mg/3 mL) pen injector 1.8 mg subcut DAILY Qty: 9 3RF ibuprofen 800 mg tablet 800 mg PO TID Qty: 30 0RF bisacodyl [Dulcolax (bisacodyl)] 10 mg suppository 10 mg NE DAILY Qty: 12 0RF cyclobenzaprine 10 mg tablet 10 mg PO TID PRN (Reason: muscle spasm) Qty: 10 0RF amlodipine 5 mg tablet 5 mg PO QAM gabapentin 100 mg capsule 100 mg PO BEDTIME aspirin 81 mg tablet,delayed release (DR/EC) 81 mg PO DAILY (DME) insulin syringe-needle U-100 1 mL 29 gauge x 1/2 syringe See Rx Instructions .ROUTE QID Qty: 10 Rx Instructions: As directed alcohol swabs Pads, Medicated 1 pad topical PRN chlorthalidone 50 mg tablet 50 mg PO QAM verapamil 120 mg tablet extended release 120 mg PO DAILY (DME) OneTouch Ultra Blue Test Strip Strip See Rx Instructions Not Applicable TID Qty: 10 Rx Instructions: As directed cetirizine 10 mg tablet 10 mg PO DAILY PRN (Reason: allergy symptoms) polyethylene glycol 3350 [Miralax] 17 gram/dose powder 17 g PO DAILY PRN (Reason: constipation) sennosides [senna] 8.6 mg tablet 17.2 mg PO DAILY PRN (Reason: constipation) latanoprost 0.005 % drops 1 drp ophthalmic (eye) BEDTIME amitriptyline 10 mg tablet 10 mg PO BEDTIME Toujeo Max U-300 SoloStar 300 unit/mL (3 mL) insulin pen 80 unit subcut DAILY Qty: 6 11RF Invokana 300 mg tablet 300 mg PO DAILY 30 Days Qty: 30 11RF metformin 1,000 mg tablet 1,000 mg PO BID Qty: 60 11RF cholecalciferol (vitamin D3) 50 mcg (2,000 unit) capsule 50 mcg PO DAILY 30 Days Qty: 30 11RF insulin lispro [Humalog KwikPen Insulin] 100 unit/mL insulin pen 35 unit subcut TID
[2022-06-20 07:44] VITALS: BP 165/74; PULSE 79; RESP 18; TEMP 36.4; O2SAT 99
== END 2022-06-20 08:07 | disposition home or self-care (01) ==
PROVIDERS: Emergency Provider Emergency Medicine Emergency Medical Services; PCP Internal Medicine Geriatric Medicine
DX: M54.42 Lumbago with sciatica, left side (principal); M54.41 Lumbago with sciatica, right side; M79.605 Pain in left leg; M79.604 Pain in right leg; Z20.822 Contact with and (suspected) exposure to COVID-19; Z79.899 Other long term (current) drug therapy
CPT/HCPCS: 99283

== ENCOUNTER 2022-07-19 08:59 | Outpatient (REF) | payer OTHER, SELFPAY ==
--- NOTE | ~2022-07-19 | XR_ITS ---
EXAMINATION: XR LUMBOSACRAL SPINE CLINICAL INFORMATION: Chronic lower back pain COMPARISON: 02/14/2022 TECHNIQUE: Three views of the lumbosacral spine. FINDINGS: Right lower quadrant and right upper quadrant surgical clips. No fracture or subluxation. Vertebral body height and alignment maintained. Disc spaces maintained. Small endplate osteophytes throughout. The sacroiliac joints are symmetric. The sacrum is intact. Normal bowel gas pattern. XR/XR lumbar spine 2-3V IMPRESSION: Mild degenerative changes throughout the lumbar spine.
--- NOTE | ~2022-07-19 | XR_ITS ---
EXAMINATION: XR CHEST CLINICAL INFORMATION: Follow-up pulmonary nodule COMPARISON: 02/23/2020 TECHNIQUE: 2 views of the chest were obtained. FINDINGS: The lungs are well expanded. There is no focal consolidation, edema, or effusion. No pneumothorax. The cardiomediastinal silhouette is within normal limits of size with a calcified aorta. No acute osseous abnormality. Mild degenerative change of the spine. XR/XR chest 2V IMPRESSION: Clear lungs. No nodules are seen.
== END 2022-07-19 09:00 | disposition home or self-care (01) ==
LOC: HO.XRAY 08:59
PROVIDERS: PCP Internal Medicine Geriatric Medicine; Visit Provider Internal Medicine Geriatric Medicine
DX: M54.50 Low back pain, unspecified (principal); G89.29 Other chronic pain; R91.1 Solitary pulmonary nodule
CPT/HCPCS: 71046; 72100

== ENCOUNTER → 2022-08-19 12:40 | Outpatient (BNVA) | payer OTHER, SELFPAY | PROVIDERS: PCP Internal Medicine Geriatric Medicine; Referring Provider Internal Medicine Geriatric Medicine; Visit Provider Nurse Practitioner Family | DX: I35.0 Nonrheumatic aortic (valve) stenosis (principal); I10 Essential (primary) hypertension; E78.5 Hyperlipidemia, unspecified; R07.9 Chest pain, unspecified | CPT/HCPCS: Q3014 ==

== ENCOUNTER 2022-09-02 08:31 | Outpatient (REF) | payer OTHER, SELFPAY ==
[2022-09-02 09:32] LABS: Estimated Average Glucose 212 mg/dL
[2022-09-02 09:46] LABS: Alanine Aminotransferase 66 U/L (0-40); Alkaline Phosphatase 72 U/L (39-117); Anion Gap 14 (12-20); Aspartate Amino Transferase 35 U/L (5-37); Bilirubin Total 0.5 mg/dL (0.0-1.0); Blood Urea Nitrogen 25 mg/dL (9-16); Calcium 10.1 mg/dL (8.4-10.2); Carbon Dioxide 29 mmol/L (22-29); Chloride 102 mmol/L (96-108); Cholesterol 161 mg/dL; Estimated Glomerular Filt Rate 55; Glucose Random 256 mg/dL (60-115); HDL Cholesterol 34 mg/dL; LDL Cholesterol Calculated 102 mg/dl; Potassium 4.2 mmol/L (3.3-5.1); Sodium 141 mmol/L (135-145); Total Protein 7.1 g/dL (6.5-8.0); Triglycerides 129 mg/dL
[2022-09-02 10:04] LABS: Free T4 (Free Thyroxine) 0.76 ng/dL (0.71-1.85); Thyroid Stimulating Hormone 1.54 uIU/mL (0.32-4.0); Vitamin D 25-OH Total 37.7 ng/mL (>30)
[2022-09-02 11:07] LABS: Creatinine Urine 64.45 mg/dL; Microalbum/Creatinine Ratio Ur 268.4 ug/mg cr
[2022-09-04 05:23] LABS: LDL Cholesterol Direct 109 mg/dL (<100)
== END 2022-09-02 08:32 | disposition home or self-care (01) ==
LOC: HO.LAB 08:31
PROVIDERS: PCP Internal Medicine Geriatric Medicine; Visit Provider Internal Medicine
DX: E11.65 Type 2 diabetes mellitus with hyperglycemia (principal); E55.9 Vitamin D deficiency, unspecified; E04.2 Nontoxic multinodular goiter; Z79.4 Long term (current) use of insulin
CPT/HCPCS: 36415; 80053; 80061; 82043; 82306; 83036; 83721; 84439; 84443

== ENCOUNTER → 2022-09-06 08:13 | Outpatient (BNVA) | payer OTHER, SELFPAY | PROVIDERS: PCP Internal Medicine Geriatric Medicine; Visit Provider Internal Medicine | DX: E11.65 Type 2 diabetes mellitus with hyperglycemia (principal); E78.5 Hyperlipidemia, unspecified; E04.2 Nontoxic multinodular goiter; E83.52 Hypercalcemia; I10 Essential (primary) hypertension; Z79.4 Long term (current) use of insulin | CPT/HCPCS: 82947; 99212 ==

== ENCOUNTER 2022-09-21 10:19 | Emergency (ER) | payer OTHER, MEDICAID, SELFPAY ==
[2022-09-21 10:26] VITALS: BP 158/57; PULSE 84; RESP 18; TEMP 36.8; O2SAT 99; BMI 35.3
--- NOTE | 2022-09-21 11:37 | ED_ITS ---
HPI - General Adult General Chief complaint: General Medical Stated complaint: Body aches/Sore throat/Ear ache Time Seen by Provider: 09/21/22 11:28 Source: patient Mode of arrival: EMS Limitations: no limitations History of Present Illness HPI narrative: total body pain, sore throat and earache for 2 weeks. Now with tinnitus in the ear. At home he has been taking tylenol but does not feel improved. He has alina ropathy and sciatica. besides from the myalgias he also has constipation. Onset (ago): week(s) Severity: moderate Pain Consistency: constant Related Data Home Medications Medication Instructions Recorded Confirmed alcohol swabs 1 pad topical PRN 05/07/20 09/06/22 amlodipine 5 mg tablet 5 mg PO QAM 05/07/20 09/06/22 aspirin 81 mg tablet,delayed 81 mg PO DAILY 05/07/20 09/06/22 release blood sugar diagnostic #10 ea 05/07/20 09/06/22 chlorthalidone 50 mg tablet 50 mg PO QAM 05/07/20 09/06/22 gabapentin 100 mg capsule 100 mg PO BEDTIME 05/07/20 09/06/22 insulin syringe-needle U-100 1 mL #10 ea 05/07/20 09/06/22 29 gauge x 1/2 verapamil 120 mg tablet,extended 120 mg PO DAILY 05/07/20 09/06/22 release cetirizine 10 mg tablet 10 mg PO DAILY PRN allergy symptoms 08/21/20 09/06/22 polyethylene glycol 3350 17 17 g PO DAILY PRN constipation 08/12/21 09/06/22 gram/dose oral powder (Miralax) sennosides 8.6 mg tablet (senna) 17.2 mg PO DAILY PRN constipation 08/12/21 09/06/22 insulin lispro 100 unit/mL 35 unit subcut TID 03/01/22 09/06/22 subcutaneous pen (Humalog KwikPen (U-100) Insulin) amitriptyline 10 mg tablet 10 mg PO BEDTIME 03/18/22 09/06/22 latanoprost 0.005 % eye drops 1 drp ophthalmic (eye) BEDTIME 03/18/22 09/06/22 Previous Rx's Medication Instructions Recorded pen needle, diabetic 32 gauge x 1 ea miscellaneous QID 30 days 08/11/20 (Pentips) #100 ea ibuprofen 800 mg tablet 800 mg PO TID #30 tabs 11/18/21 canagliflozin 300 mg tablet 300 mg PO DAILY 30 days #30 tabs 11/26/21 (Invokana) cholecalciferol (vitamin D3) 50 50 mcg PO DAILY 30 days #30 caps 11/26/21 mcg (2,000 unit) capsule metformin 1,000 mg tablet 1,000 mg PO BID #60 tabs 11/26/21 bisacodyl 10 mg rectal suppository 10 mg GA DAILY #12 ea 12/26/21 (Dulcolax (bisacodyl)) cyclobenzaprine 10 mg tablet 10 mg PO TID PRN muscle spasm #10 12/26/21 tabs docusate sodium 100 mg capsule 200 mg PO BEDTIME #60 caps 04/19/22 methylcellulose (laxative) 500 mg 500 mg PO BID #60 tabs 04/19/22 tablet (Fiber Laxative (methylcellulose)) liraglutide 0.6 mg/0.1 mL (18 mg/3 1.8 mg (0.3 mL) subcut DAILY #9 mL 06/01/22 mL) subcutaneous pen injector ([employer] 3-Beto) cyclobenzaprine 5 mg tablet 5 mg PO TID PRN muscle spasm or 06/20/22 pain #14 tabs dexamethasone 4 mg tablet 4 mg PO DAILY 5 days #5 tabs 06/20/22 insulin glargine U-300 conc 300 80 unit (0.2667 mL) subcut DAILY 08/30/22 unit/mL (3 mL) subcutaneous pen #6 mL (Toujeo Max U-300 SoloStar) pen needle, diabetic 32 gauge x #125 ea 09/01/22 (BD Ultra-Fine Marry Pen Needle) atorvastatin 80 mg tablet 80 mg PO BEDTIME 30 days #30 tabs 09/06/22 Allergies Allergy/AdvReac Type Severity Reaction Status Date / Time lisinopril [LISINOPRIL] Allergy Severe ANGIOEDEMA Verified 09/06/22 08:57 prednisone [PREDNISONE] Allergy Mild ITCHY Verified 09/06/22 08:57 Review of Systems Review of Systems: Yes all other systems are reviewed and are negative Constitutional: Comments: myalgias and weakness PMFSH Past Medical History Medical History Basal cell carcinoma (BCC) Familial hypocalciuric hypercalcemia Heart murmur HLD (hyperlipidemia) HTN (hypertension) Multinodular thyroid NAFLD (nonalcoholic fatty liver disease) Skin lesion of left lower extremity T2DM (type 2 diabetes mellitus) Transaminitis Vitamin D deficiency Surgical History Hx of appendectomy Hx of cholecystectomy Hx of colonoscopy Hx of esophagogastroduodenoscopy Hx of melanoma excision Family History Family History Father CVD (cardiovascular disease) Diabetes Brother CVD (cardiovascular disease) Diabetes FH: heart attack Social History Social History Household Members: Family Alcohol intake: never Patient Tobacco Use Status: Never used Tobacco Advance Directives: No Advance Directives Information Provided: No Physical Exam ED Vital Signs: Vital Signs - 24 hr 09/21/22 10:26 09/21/22 11:56 Temperature 98.2 F 97.8 F Pulse Rate 84 72 Respiratory Rate 18 14 Blood Pressure 158/57 H 160/69 H Pulse Oximetry 99 93 Oxygen Delivery Method Room Air Room Air BMI result Body Mass Index 35.3 Const General: healthy appearing Nutritional Appearance: average body habitus Orientation/consciousness: oriented to person and patient oriented x3 Limitations: no limitations HENMT Other: chronic laryngitis Head: Yes normal to inspection Ears: external ears normal General nose exam: Normal external nose present Mouth: Normal oral and palatal mucosa present and oropharynx normal Throat: Yes posterior oropharynx normal Eyes General: appearance normal, both eyes and all related structures Neck Neck: Yes normal visual inspection Chest Chest palpation & inspection: normal inspection of the chest Resp Auscultation: clear to auscultation bilaterally Cardio Jugular venous distension: no JVD Rate: regular rate Rhythm: regular rhythm Heart sounds: S1 normal heart sound present and S2 normal heart sound present GI Inspection: Yes normal to inspection Palpation (GI): Soft to palpation, nontender and No hepatosplenomegaly present Auscultation: normal bowel sounds General: Yes no CVA tenderness Back/Spine/Pelvis Back: no CVA tenderness Skin General skin exam: no rashes or lesions noted Neuro General: oriented to person and patient oriented x3 Cranial nerves: Yes CN's II-XII intact bilaterally Motor exam (neuro): 5/5 motor strength present throughout Extrem General: Yes normal to inspection Psych Appearance: grossly normal Course Reevaluation(s) Reevaluation #1: patient with slight elevation of cpk, no infection found will dc on flexeril for muscle relaxation Time: 13:39 Medications Administered Discontinued Medications Generic Name Dose Route Start Last Admin Trade Name Freq PRN Reason Stop Dose Admin Cyclobenzaprine HCl 10 mg 09/21/22 11:44 09/21/22 12:09 Cyclobenzaprine Hcl 10 Mg Tablet PO 09/21/22 11:45 10 mg ONCE ONE Administration Insulin Human Lispro 8 unit 09/21/22 12:22 09/21/22 12:35 Insulin Lispro 100 Unit/Ml 3 Ml Vial SUBCUT 09/21/22 12:23 8 unit ONCE ONE Administration Medical Decision Making Differential Diagnosis Differential Diagnoses: The differential diagnosis associated with the presentation includes (myalgias, myositis, COVID, hyperglycemia, diabetes) Lab Data MDM Lab Attestation statement: I reviewed the patient's lab results. 09/21/22 11:55 09/21/22 11:55 Labs: Lab Results 09/21/22 09/21/22 09/21/22 Range/Units 11:35 11:35 11:55 WBC 10.4 (4.8-10.8) X10*3/uL RBC 5.02 (4.60-5.80) X10*6/uL Hgb 15.0 (14.0-18.0) g/dl Hct 44.7 (42.0-52.0) % MCV 89.0 (80.0-98.0) fL MCH 29.9 (27.0-33.0) pg MCHC 33.6 (31.0-36.0) g/dl RDW 13.0 (11.0-16.0) % Plt Count 276 (160-400) X10*3/uL MPV 10.3 (9.4-12.4) fL Immature Gran % (Auto) 0.6 H (0.0-0.4) % Neut % (Auto) 67.5 (45-73) % Lymph % (Auto) 22.8 (20-40) % Christian % (Auto) 7.4 (2-11) % Eos % (Auto) 1.1 (0-4) % Baso % (Auto) 0.6 (0-2) % Lymph # (Auto) 2.4 (1.2-4.9) X10*3/uL Christian # (Auto) 0.8 (0.1-1.2) X10*3/uL Eos # (Auto) 0.1 (0.0-0.4) X10*3/uL Baso # (Auto) 0.1 (0.0-0.2) X10*3/uL Abs Immat Gran (auto) 0.06 H (0.00-0.03) X10*3/uL Absolute Neuts (auto) 7.1 (2.0-8.3) x10*3/uL Absolute Nucleated RBC 0.000 (0.0-0.012) X10*3/uL Nucleated RBC % (auto) 0.0 (0.0-0.2) /100WBC Sodium (135-145) mmol/L Potassium (3.3-5.1) mmol/L Chloride (96-108) mmol/L Carbon Dioxide (22-29) mmol/L Anion Gap (12-20) BUN (9-16) mg/dL Creatinine (0.5-1.4) mg/dL Estim Creat Clear Calc Estimated GFR Random Glucose (60-115) mg/dL Calcium (8.4-10.2) mg/dL Total Creatine Kinase (38-174) U/L COVID-19 (VIKTORIYA) Negative (Negative) COVID-19 Clin Com See Note Influenza Type A (MORENO) Negative (Negative) Influenza Type B (MORENO) Negative (Negative) Influenza A & B Note See Note 09/21/22 Range/Units 11:55 WBC (4.8-10.8) X10*3/uL RBC (4.60-5.80) X10*6/uL Hgb (14.0-18.0) g/dl Hct (42.0-52.0) % MCV (80.0-98.0) fL MCH (27.0-33.0) pg MCHC (31.0-36.0) g/dl RDW (11.0-16.0) % Plt Count (160-400) X10*3/uL MPV (9.4-12.4) fL Immature Gran % (Auto) (0.0-0.4) % Neut % (Auto) (45-73) % Lymph % (Auto) (20-40) % Christian % (Auto) (2-11) % Eos % (Auto) (0-4) % Baso % (Auto) (0-2) % Lymph # (Auto) (1.2-4.9) X10*3/uL Christian # (Auto) (0.1-1.2) X10*3/uL Eos # (Auto) (0.0-0.4) X10*3/uL Baso # (Auto) (0.0-0.2) X10*3/uL Abs Immat Gran (auto) (0.00-0.03) X10*3/uL Absolute Neuts (auto) (2.0-8.3) x10*3/uL Absolute Nucleated RBC (0.0-0.012) X10*3/uL Nucleated RBC % (auto) (0.0-0.2) /100WBC Sodium 140 (135-145) mmol/L Potassium 4.8 (3.3-5.1) mmol/L Chloride 100 (96-108) mmol/L Carbon Dioxide 28 (22-29) mmol/L Anion Gap 17 (12-20) BUN 20 H (9-16) mg/dL Creatinine 1.47 H (0.5-1.4) mg/dL Estim Creat Clear Calc 50.1 Estimated GFR 47 Random Glucose 352 H* (60-115) mg/dL Calcium 9.8 (8.4-10.2) mg/dL Total Creatine Kinase 243 H (38-174) U/L COVID-19 (VIKTORIYA) (Negative) COVID-19 Clin Com Influenza Type A (MORENO) (Negative) Influenza Type B (MORENO) (Negative) Influenza A & B Note Chronic Conditions Patient?s care impacted by: Diabetes and Hypertension Discharge Plan Discharge Clinical Impression: Hyperglycemia, Myalgia Patient Disposition: Home, Self-Care Instructions: Diabetic Hyperglycemia (ED), Musculoskeletal Pain (ED) Prescriptions: No Action pen needle, diabetic [Pentips] 32 gauge x 5/32 needle 1 ea miscellaneous QID 30 Days Qty: 100 11RF docusate sodium 100 mg capsule 200 mg PO BEDTIME Qty: 60 5RF Fiber Laxative (methylcellulo) 500 mg tablet 500 mg PO BID Qty: 60 5RF [employer] 3-Beto 0.6 mg/0.1 mL (18 mg/3 mL) pen injector 1.8 mg subcut DAILY Qty: 9 3RF Toujeo Max U-300 SoloStar 300 unit/mL (3 mL) insulin pen 80 unit subcut DAILY Qty: 6 1RF (DME) pen needle, diabetic [BD Ultra-Fine Marry Pen Needle] 32 gauge x needle See Rx Instructions .ROUTE .MEDSUPPLY Qty: 125 11RF Rx Instructions: As directed four times a day ibuprofen 800 mg tablet 800 mg PO TID Qty: 30 0RF cyclobenzaprine 5 mg tablet 5 mg PO TID PRN (Reason: muscle spasm or pain) Qty: 14 0RF dexamethasone 4 mg tablet 4 mg PO DAILY 5 Days Qty: 5 0RF bisacodyl [Dulcolax (bisacodyl)] 10 mg suppository 10 mg GA DAILY Qty: 12 0RF cyclobenzaprine 10 mg tablet 10 mg PO TID PRN (Reason: muscle spasm) Qty: 10 0RF amlodipine 5 mg tablet 5 mg PO QAM gabapentin 100 mg capsule 100 mg PO BEDTIME aspirin 81 mg tablet,delayed release (DR/EC) 81 mg PO DAILY (DME) insulin syringe-needle U-100 1 mL 29 gauge x 1/2 syringe See Rx Instructions .ROUTE QID Qty: 10 Rx Instructions: As directed alcohol swabs Pads, Medicated 1 pad topical PRN chlorthalidone 50 mg tablet 50 mg PO QAM verapamil 120 mg tablet extended release 120 mg PO DAILY (DME) OneTouch Ultra Blue Test Strip Strip See Rx Instructions Not Applicable TID Qty: 10 Rx Instructions: As directed cetirizine 10 mg tablet 10 mg PO DAILY PRN (Reason: allergy symptoms) polyethylene glycol 3350 [Miralax] 17 gram/dose powder 17 g PO DAILY PRN (Reason: constipation) sennosides [senna] 8.6 mg tablet 17.2 mg PO DAILY PRN (Reason: constipation) latanoprost 0.005 % drops 1 drp ophthalmic (eye) BEDTIME amitriptyline 10 mg tablet 10 mg PO BEDTIME Invokana 300 mg tablet 300 mg PO DAILY 30 Days Qty: 30 11RF metformin 1,000 mg tablet 1,000 mg PO BID Qty: 60 11RF cholecalciferol (vitamin D3) 50 mcg (2,000 unit) capsule 50 mcg PO DAILY 30 Days Qty: 30 11RF insulin lispro [Humalog KwikPen Insulin] 100 unit/mL insulin pen 35 unit subcut TID atorvastatin 80 mg tablet 80 mg PO BEDTIME 30 Days Qty: 30 11RF Referrals: Name,MD Aneesh [Primary Care Provider] - 3 days
[2022-09-21 11:54] LABS: COVID-19 Test Negative (Negative); IDNOW Serial# 08D9AD1C
[2022-09-21 11:55] LABS: IDNOW Serial# 9DB6401D; Influenza A Negative (Negative); Influenza B2 Negative (Negative)
[2022-09-21 11:56] VITALS: BP 160/69; PULSE 72; RESP 14; TEMP 36.6; O2SAT 93
[2022-09-21 11:59] LABS: MANUAL DIFF FLAG NO
[2022-09-21 12:02] LABS: Basophils Absolute Auto 0.1 X10*3/uL (0.0-0.2); Basophils Percent Auto 0.6 % (0-2); Eosinophils Absolute Auto 0.1 X10*3/uL (0.0-0.4); Eosinophils Percent Auto 1.1 % (0-4); Hematocrit 44.7 % (42.0-52.0); Imm Gran Abs Auto 0.06 X10*3/uL (0.00-0.03); Imm Gran Pct Auto 0.6 % (0.0-0.4); Lymphocytes Absolute Auto 2.4 X10*3/uL (1.2-4.9); Lymphocytes Percent Auto 22.8 % (20-40); Mean Corpuscular HGB Conc 33.6 g/dl (31.0-36.0); Mean Corpuscular Hemoglobin 29.9 pg (27.0-33.0); Mean Platelet Volume 10.3 fL (9.4-12.4); Monocytes Absolute Auto 0.8 X10*3/uL (0.1-1.2); Monocytes Percent Auto 7.4 % (2-11); Neutrophils Absolute Auto 7.1 x10*3/uL (2.0-8.3); Neutrophils Percent Auto 67.5 % (45-73); Platelet Count 276 X10*3/uL (160-400); Red Blood Count 5.02 X10*6/uL (4.60-5.80); White Blood Count 10.4 X10*3/uL (4.8-10.8)
[2022-09-21] MEDS: Cyclobenzaprine HCl 10 MG TABLET PO (12:09)
[2022-09-21 12:22] LABS: Anion Gap 17 (12-20); Blood Urea Nitrogen 20 mg/dL (9-16); Calcium 9.8 mg/dL (8.4-10.2); Carbon Dioxide 28 mmol/L (22-29); Chloride 100 mmol/L (96-108); Creatinine Clr Calc Pharmacy 50.1; Estimated Glomerular Filt Rate 47; Glucose Random 352 mg/dL (60-115); Potassium 4.8 mmol/L (3.3-5.1); Sodium 140 mmol/L (135-145)
[2022-09-21] MEDS: Insulin Lispro 100 UNIT/ML 3 ML VIAL 8 UNIT SUBCUT (12:35)
== END 2022-09-21 13:56 | disposition home or self-care (01) ==
PROVIDERS: Emergency Provider Emergency Medicine; PCP Internal Medicine Geriatric Medicine
DX: E11.65 Type 2 diabetes mellitus with hyperglycemia (principal); M79.10 Myalgia, unspecified site; H93.13 Tinnitus, bilateral; M54.42 Lumbago with sciatica, left side; M54.41 Lumbago with sciatica, right side; Z20.822 Contact with and (suspected) exposure to COVID-19; Z20.828 Contact with and (suspected) exposure to other viral communicable diseases; Z79.4 Long term (current) use of insulin; Z79.899 Other long term (current) drug therapy
CPT/HCPCS: 36415; 80048; 82550; 85025; 87502; 87635; 99283

== ENCOUNTER 2022-10-08 08:26 | Outpatient (REF) | payer OTHER, MEDICAID, SELFPAY ==
[2022-10-08 10:16] LABS: Estimated Average Glucose 197 mg/dL; Hemoglobin A1c % 8.5 %
[2022-10-08 11:16] LABS: Alanine Aminotransferase 63 U/L (0-40); Albumin Level 4.2 g/dL (3.5-5.0); Alkaline Phosphatase 82 U/L (39-117); Anion Gap 15 (12-20); Aspartate Amino Transferase 36 U/L (5-37); Bilirubin Total 0.6 mg/dL (0.0-1.0); Blood Urea Nitrogen 21 mg/dL (9-16); Calcium 10.1 mg/dL (8.4-10.2); Carbon Dioxide 29 mmol/L (22-29); Chloride 100 mmol/L (96-108); Cholesterol 139 mg/dL; Estimated Glomerular Filt Rate > 60; Glucose Random 248 mg/dL (60-115); HDL Cholesterol 37 mg/dL; LDL Cholesterol Calculated 70 mg/dl; Sodium 140 mmol/L (135-145); Total Protein 7.5 g/dL (6.5-8.0); Triglycerides 163 mg/dL
[2022-10-10 06:08] LABS: LDL Cholesterol Direct 76 mg/dL (<100)
== END 2022-10-08 08:27 | disposition home or self-care (01) ==
LOC: HO.LAB 08:26
PROVIDERS: Visit Provider Internal Medicine
DX: E11.65 Type 2 diabetes mellitus with hyperglycemia (principal); Z79.4 Long term (current) use of insulin
CPT/HCPCS: 36415; 80053; 80061; 83036; 83721

== ENCOUNTER → 2022-11-04 09:32 | Outpatient (BNVA) | payer OTHER, MEDICAID, SELFPAY | PROVIDERS: PCP Internal Medicine Geriatric Medicine; Visit Provider Physician Assistant | DX: K57.30 Diverticulosis of large intestine without perforation or abscess without bleeding (principal); K76.0 Fatty (change of) liver, not elsewhere classified; K59.09 Other constipation; Z86.010 Personal history of colon polyps | CPT/HCPCS: 99212 ==

== ENCOUNTER 2022-11-18 08:40 | Outpatient (REF) | payer OTHER, MEDICAID, SELFPAY ==
--- NOTE | ~2022-11-18 | US_ITS ---
EXAMINATION: US THYROID CLINICAL INFORMATION: Nontoxic multinodular goiter. Right thyroidectomy. COMPARISON: Thyroid ultrasound 04/19/2022 and 04/01/2021. CT soft tissue neck 09/02/2021. Ultrasound-guided thyroid biopsy 11/23/2018. TECHNIQUE: Linear transducer grayscale and color Doppler examination with attention to the region of the thyroid. FINDINGS: SIZE: Measurements of the solitary left lobe and nodules are given in sagittal, anteroposterior and transverse dimensions respectively. Right Thyroid Lobe: Surgically absent. Left Thyroid Lobe: 4.6 x 1.5 x 1.5 cm, volume 5.2 mL. Previously 4.6 x 1.6 x 1.5 cm, volume 6.0 mL. Parenchyma: The gland echotexture is homogeneous. Thyroid vascularity is normal. Isthmus: 0.4 cm in maximum AP dimension. Previously 0.5 cm. Estimated total number of nodules greater than or equal to 1 cm: 0. [employer] Business Development [employer]st nodules are described as follows: 1. Location: Left mid pole. Size: 0.4 x 0.09 x 0.4 cm, volume 0.008 mL. Previously: 0.4 x 0.3 x 0.4 cm, volume 0.02 mL. Nodule characteristics: Composition: Solid (2). Echogenicity: Hyperechoic (1). Shape: Not taller than wide (0). Margins: Smooth (0). Echogenic Foci: Macrocalcifications (1). ACR TI-RADS total points: 4 Previous: 4 ACR TI-RADS category: 4 Previous: 4 Significant change in size (>/= 20% in 2 dimensions and minimal increase of 2 mm or 50% or greater increase in volume): Change in features: Change in ACR TI-RADS risk category: 2. Location: Left mid pole. Size: 0.9 x 0.9 x 0.4 cm, volume 0.4 mL. Previously: 1.2 x 0.7 x 0.8 cm, volume 0.4 mL. Nodule characteristics: Composition: Solid (2). Echogenicity: Isoechoic (1). Shape: Not taller than wide (0). Margins: Extrathyroidal extension (3). Echogenic Foci: Punctate echogenic foci (3). ACR TI-RADS total points: 9 Previous: 8 ACR TI-RADS category: 5 Previous: 5 Significant change in size (>/= 20% in 2 dimensions and minimal increase of 2 mm or 50% or greater increase in volume): No Change in features: Yes Change in ACR TI-RADS risk category: Yes 3. Location: Left lower pole. Size: 0.5 x 0.2 x 0.5 cm, volume 0.03 mL. Previously: 0.5 x 0.3 x 0.5 cm, volume 0.03 mL. Nodule characteristics: Composition: Solid (2). Echogenicity: Hyperechoic (1). Shape: Not taller than wide (0). Margins: Smooth (0). Echogenic Foci: Macrocalcifications (1). ACR TI-RADS total points: 4 Previous: 4 ACR TI-RADS category: 4 Previous: 4 Significant change in size (>/= 20% in 2 dimensions and minimal increase of 2 mm or 50% or greater increase in volume): No Change in features: No Change in ACR TI-RADS risk category: No RIGHT THYROIDECTOMY BED: Within the right thyroidectomy bed, a 0.6 x 0.5 x 0.5 cm cystic and solid collection is seen with calcification. On the ultrasound examination of 04/19/2022, this measured 0.7 x 0.3 x 0.5 cm. NODES: No lymphadenopathy is seen in the tissue surrounding the thyroid gland. ADDITIONAL FINDINGS: Adjacent to the lower pole of the left thyroid, a 0.5 x 0.6 x 0.5 cm hyperechoic nodule is seen. US/US thyroid IMPRESSION: 1. A continued stable heterogeneous echotexture nodule is seen within the right thyroid bed. This could be further evaluated with contrast-enhanced CT, if clinically indicated. At a minimum, continued thyroid ultrasound surveillance is recommended. 2. Small left thyroid lobe nodules are redemonstrated. 3. A 6 mm hyperechoic mass is seen adjacent to the lower pole of the left thyroid, suspicious for a parathyroid adenoma. If clinically indicated, this can be further evaluated with serum parathormone and calcium levels. ACR TI-RADS RECOMMENDATION REFERENCE: Ultrasound-guided fine-needle aspiration, followup ultrasound, no further follow up. * TR1 (0 point) and TR2 (2 points): No FNA or follow up * TR3 (3 points): FNA if more than or equal to 2.5 cm in maximum dimension, followup ultrasound in 1, 3 and 5 years if 1.5 to 2.4 cm in maximum dimension. * TR4 (4-6 points): FNA if more than or equal to 1.5 cm in maximum dimension, followup ultrasound in 1, 2, 3 and 5 years if 1 to 1.4 cm in maximum dimension. * TR5 (more than or equal to 7 points): FNA if more than or equal to 1 cm in maximum dimension, followup ultrasound every year for 5 years if 0.5 to 0.9 cm in maximum dimension. * TR3, TR4 or TR5 nodules that are below the size threshold for follow up receive no follow up.
== END 2022-11-18 08:41 | disposition home or self-care (01) ==
LOC: HO.US 08:40
PROVIDERS: PCP Internal Medicine Geriatric Medicine; Visit Provider Internal Medicine
DX: E04.2 Nontoxic multinodular goiter (principal)
CPT/HCPCS: 76536

== ENCOUNTER → 2022-12-08 08:49 | Outpatient (BNVA) | payer OTHER, MEDICAID, SELFPAY | PROVIDERS: PCP Internal Medicine Geriatric Medicine; Visit Provider Internal Medicine | DX: E04.2 Nontoxic multinodular goiter (principal); E11.65 Type 2 diabetes mellitus with hyperglycemia; I10 Essential (primary) hypertension; E78.5 Hyperlipidemia, unspecified; E83.52 Hypercalcemia; Z83.3 Family history of diabetes mellitus; Z79.4 Long term (current) use of insulin | CPT/HCPCS: Q3014 ==

== ENCOUNTER 2023-01-03 06:04 | Emergency (ER) | payer OTHER, MEDICAID, SELFPAY ==
--- NOTE | ~2023-01-03 | XR_ITS ---
EXAMINATION: XR CHEST CLINICAL INFORMATION: Left lower chest and upper abdominal pain. COMPARISON: 07/19/2022 chest radiographs. TECHNIQUE: 2 views of the chest were obtained. FINDINGS: No significant abnormality is noted involving the heart, lungs, mediastinum, bony thorax or soft tissues. XR/XR chest 2V IMPRESSION: No acute cardiopulmonary process.
[2023-01-03 06:06] VITALS: BP 174/65; PULSE 81; RESP 16; TEMP 36.3; O2SAT 97; BMI 35.0
--- NOTE | 2023-01-03 07:04 | ED_ITS ---
HPI - General Adult General Chief complaint: General Medical Stated complaint: Bodyaches Time Seen by Provider: 01/03/23 07:04 Source: patient Mode of arrival: ambulatory Limitations: no limitations History of Present Illness HPI narrative: 72 yo male with history of NAFLD, Hyper lipidemia, DM2, HTN presents with body aches. Rated 9/10 Duration of 3-4 months Worse over the last few days No nausea, vomiting, diarrhea, shortness of breath, fevers, chills No clear relieving or exacerbating features Patient also reports left upper abdominal/left lower chest discomfort. Home treatment included Tylenol Related Data Home Medications Medication Instructions Recorded Confirmed alcohol swabs 1 pad topical PRN 05/07/20 12/08/22 amlodipine 5 mg tablet 5 mg PO QAM 05/07/20 12/08/22 aspirin 81 mg tablet,delayed 81 mg PO DAILY 05/07/20 12/08/22 release blood sugar diagnostic #10 ea 05/07/20 12/08/22 chlorthalidone 50 mg tablet 50 mg PO QAM 05/07/20 12/08/22 gabapentin 100 mg capsule 100 mg PO BEDTIME 05/07/20 12/08/22 insulin syringe-needle U-100 1 mL #10 ea 05/07/20 12/08/22 29 gauge x 1/2 verapamil 120 mg tablet,extended 120 mg PO DAILY 05/07/20 12/08/22 release cetirizine 10 mg tablet 10 mg PO DAILY PRN allergy symptoms 08/21/20 12/08/22 polyethylene glycol 3350 17 17 g PO DAILY PRN constipation 08/12/21 12/08/22 gram/dose oral powder (Miralax) sennosides 8.6 mg tablet (senna) 17.2 mg PO DAILY PRN constipation 08/12/21 12/08/22 amitriptyline 10 mg tablet 10 mg PO BEDTIME 03/18/22 12/08/22 latanoprost 0.005 % eye drops 1 drp ophthalmic (eye) BEDTIME 03/18/22 12/08/22 Previous Rx's Medication Instructions Recorded pen needle, diabetic 32 gauge x 1 ea miscellaneous QID 30 days 08/11/20 5/32 (Pentips) #100 ea ibuprofen 800 mg tablet 800 mg PO TID #30 tabs 11/18/21 bisacodyl 10 mg rectal suppository 10 mg ND DAILY #12 ea 12/26/21 (Dulcolax (bisacodyl)) liraglutide 0.6 mg/0.1 mL (18 mg/3 1.8 mg (0.3 mL) subcut DAILY #9 mL 06/01/22 mL) subcutaneous pen injector (Altatechtoza 3-Beto) pen needle, diabetic 32 gauge x #125 ea 09/01/22 (BD Ultra-Fine Marry Pen Needle) atorvastatin 80 mg tablet 80 mg PO BEDTIME 30 days #30 tabs 09/06/22 bisacodyl 10 mg rectal suppository 10 mg ND DAILY constipation #20 ea 11/04/22 (Dulcolax (bisacodyl)) bisacodyl 5 mg tablet,delayed 10 mg PO ONCE colonoscopy prep 1 11/04/22 release (Dulcolax (bisacodyl)) day #2 tabs docusate sodium 100 mg capsule 200 mg PO BEDTIME 30 days #60 caps 11/04/22 (Colace) methylcellulose (laxative) 500 mg 500 mg PO BID #60 tabs 11/04/22 tablet (Fiber Laxative (methylcellulose)) polyethylene glycol 3350 17 17 g PO BID 5 days #170 grams 11/04/22 gram/dose oral powder (Miralax) polyethylene glycol 3350 17 238 g PO ONCE PRN laxative effect 11/04/22 gram/dose oral powder (Miralax) 1 day #238 grams insulin glargine U-300 conc 300 80 unit (0.2667 mL) subcut DAILY 11/19/22 unit/mL (3 mL) subcutaneous pen #6 mL (Toujeo Max U-300 SoloStar) insulin lispro 100 unit/mL See Rx Instructions subcut 12/02/22 subcutaneous pen (Humalog KwikPen .COMPLEX #33 mL (U-100) Insulin) canagliflozin 300 mg tablet 300 mg PO DAILY 30 days #30 tabs 12/03/22 (Invokana) metformin 1,000 mg tablet 1,000 mg PO BID #60 tabs 12/03/22 bisacodyl 5 mg tablet,delayed 10 mg PO ONCE 1 day #2 tabs 12/10/22 release (Dulcolax (bisacodyl)) cholecalciferol (vitamin D3) 50 50 mcg PO DAILY 30 days #30 caps 12/10/22 mcg (2,000 unit) capsule polyethylene glycol 3350 17 238 g PO ONCE 1 day #238 grams 12/10/22 gram/dose oral powder (Miralax) meloxicam 15 mg tablet 15 mg PO DAILY #14 tabs 01/03/23 Allergies Allergy/AdvReac Type Severity Reaction Status Date / Time lisinopril [LISINOPRIL] Allergy Severe ANGIOEDEMA Verified 12/08/22 09:12 prednisone [PREDNISONE] Allergy Mild ITCHY Verified 12/08/22 09:12 Review of Systems Review of Systems: CONSTITUTIONAL: Denies weight loss, fever and chills. HEENT: Denies changes in vision and hearing. RESPIRATORY: Denies SOB and cough. CV: Denies palpitations + CP. GI: + abdominal pain, - nausea, vomiting and diarrhea. : Denies dysuria and urinary frequency. MSK: + myalgia and joint pain. SKIN: Denies rash and pruritus. NEUROLOGICAL: Denies headache and syncope. PSYCHIATRIC: Denies recent changes in mood. Denies anxiety and depression. All other ROS are negative unless in HPI PMFSH Past Medical History Medical History Basal cell carcinoma (BCC) Familial hypocalciuric hypercalcemia Heart murmur HLD (hyperlipidemia) HTN (hypertension) Multinodular thyroid NAFLD (nonalcoholic fatty liver disease) Skin lesion of left lower extremity T2DM (type 2 diabetes mellitus) Transaminitis Vitamin D deficiency Surgical History Hx of appendectomy Hx of cholecystectomy Hx of colonoscopy Hx of esophagogastroduodenoscopy Hx of melanoma excision Family History Family History Father CVD (cardiovascular disease) Diabetes Brother CVD (cardiovascular disease) Diabetes FH: heart attack Social History Social History Household Members: Family Alcohol intake: never Patient Tobacco Use Status: Never used Tobacco Smoked in Last 30 Days: No Use of substances other than those prescribed or required for medical reasons: No Advance Directives: No Advance Directives Information Provided: No Physical Exam ED Vital Signs: Vital Signs - 24 hr 01/03/23 06:06 01/03/23 07:09 01/03/23 09:34 Temperature 97.3 F 98.2 F 97.9 F Pulse Rate 81 81 74 Respiratory Rate 16 18 18 Blood Pressure 174/65 H 167/74 H 160/68 H Pulse Oximetry 97 96 96 Oxygen Delivery Method Room Air Room Air Room Air BMI result Body Mass Index 35.0 GEN: Well developed, no acute distress, alert, oriented HEENT: Normocephalic, atraumatic, normal external ears, nose appears normal, no oropharyngeal edema or exudates Eyes: Normal to appearance Neck: Supple, no lymphadenopathy Respiratory: Talks in complete sentences, no respiratory distress, clear to auscultation bilaterally Cardiovascular: Regular rate and rhythm, no murmurs rubs or gallops Abdomen: Soft, nontender, nondistended, no guarding, no rebound Back: No CVA tenderness Extremities: No clubbing cyanosis or edema Neurologic: No focal neurologic deficits, cranial nerves 2-12 intact, strength is 5/5 bilaterally Skin: No rash Course Course Course Narrative: The workup is complete at this time. Patient may have a possible myositis. He does have a CRP elevation but is ESR is normal. He is currently not on any statin medications. I would recommend that he follow-up with Rheumatology. I will put the patient on meloxicam for 2 weeks and have him follow up for repeat blood testing for his CPK in any additional blood work that he might require. Medications Administered Discontinued Medications Generic Name Dose Route Start Last Admin Trade Name Freq PRN Reason Stop Dose Admin Acetaminophen 975 mg 01/03/23 07:14 01/03/23 07:44 Acetaminophen 325 Mg Tablet PO 01/03/23 07:15 975 mg ONCE ONE Administration Medical Decision Making Medical Decision Making [facility] Narrative: 72-year-old male presents with generalized myalgias, upper abdominal/lower chest pain. Symptoms have been going on 3-4 months. Slightly worse today rated 9 on a 10. Examination is benign. Etiology is unclear but cconsider myositis, myopathy, neuropathy, myalgia, fibromyalgia. Plan will check a CPK, ESR, CRP for inflammatory and muscular related issues. Check EKG, chest x-ray, additional lab testing for liver, kidneys, electrolytes, A1c. Tylenol for pain. Re-evaluate. At this point, I do not see definite indication for hospitalization, however, I reserve the right if patient's laboratory analysis shows something markedly abnormal. Differential Diagnosis Differential Diagnoses: The differential diagnosis associated with the presentation includes Polymyalgia Admission/Observation Consideration of admission/observation: Escalation of care including admission/observation considered Lab Data MDM Lab Attestation statement: I reviewed the patient's lab results. 01/03/23 07:36 01/03/23 07:36 Labs: Lab Results 01/03/23 01/03/23 01/03/23 Range/Units 07:36 07:36 07:36 WBC 9.6 (4.8-10.8) X10*3/uL RBC 5.28 (4.60-5.80) X10*6/uL Hgb 15.3 (14.0-18.0) g/dl Hct 45.9 (42.0-52.0) % MCV 86.9 (80.0-98.0) fL MCH 29.0 (27.0-33.0) pg MCHC 33.3 (31.0-36.0) g/dl RDW 13.0 (11.0-16.0) % Plt Count 295 (160-400) X10*3/uL MPV 10.0 (9.4-12.4) fL Immature Gran % (Auto) 0.6 H (0.0-0.4) % Neut % (Auto) 66.7 (45-73) % Lymph % (Auto) 22.7 (20-40) % [place] % (Auto) 8.3 (2-11) % Eos % (Auto) 1.3 (0-4) % Baso % (Auto) 0.4 (0-2) % Lymph # (Auto) 2.2 (1.2-4.9) X10*3/uL [place] # (Auto) 0.8 (0.1-1.2) X10*3/uL Eos # (Auto) 0.1 (0.0-0.4) X10*3/uL Baso # (Auto) 0.0 (0.0-0.2) X10*3/uL Abs Immat Gran (auto) 0.06 H (0.00-0.03) X10*3/uL Absolute Neuts (auto) 6.4 (2.0-8.3) x10*3/uL Absolute Nucleated RBC 0.000 (0.0-0.012) X10*3/uL Nucleated RBC % (auto) 0.0 (0.0-0.2) /100WBC ESR 14 (0-15) MM/HR Sodium 140 (135-145) mmol/L Potassium 3.3 (3.3-5.1) mmol/L Chloride 104 (96-108) mmol/L Carbon Dioxide 27 (22-29) mmol/L Anion Gap 12 (12-20) BUN 23 H (9-16) mg/dL Creatinine 1.08 (0.5-1.4) mg/dL Estim Creat Clear Calc 67.9 Estimated GFR > 60 Random Glucose 183 H (60-115) mg/dL Estimat Average Glucose mg/dL Hemoglobin A1c % % Calcium 10.2 (8.4-10.2) mg/dL Total Bilirubin 0.3 (0.0-1.0) mg/dL AST 31 (5-37) U/L ALT 52 H (0-40) U/L Alkaline Phosphatase 76 (39-117) U/L Total Creatine Kinase 276 H (38-174) U/L Troponin I High Sens (<3.5-35.0) ng/L C-Reactive Protein 0.62 H (< or = 0.50) mg/dL Total Protein 7.7 (6.5-8.0) g/dL Albumin 4.0 (3.5-5.0) g/dL Lipase 44 (8-78) U/L TSH 1.30 (0.32-4.0) uIU/mL 01/03/23 01/03/23 Range/Units 07:36 07:37 WBC (4.8-10.8) X10*3/uL RBC (4.60-5.80) X10*6/uL Hgb (14.0-18.0) g/dl Hct (42.0-52.0) % MCV (80.0-98.0) fL MCH (27.0-33.0) pg MCHC (31.0-36.0) g/dl RDW (11.0-16.0) % Plt Count (160-400) X10*3/uL MPV (9.4-12.4) fL Immature Gran % (Auto) (0.0-0.4) % Neut % (Auto) (45-73) % Lymph % (Auto) (20-40) % [place] % (Auto) (2-11) % Eos % (Auto) (0-4) % Baso % (Auto) (0-2) % Lymph # (Auto) (1.2-4.9) X10*3/uL [place] # (Auto) (0.1-1.2) X10*3/uL Eos # (Auto) (0.0-0.4) X10*3/uL Baso # (Auto) (0.0-0.2) X10*3/uL Abs Immat Gran (auto) (0.00-0.03) X10*3/uL Absolute Neuts (auto) (2.0-8.3) x10*3/uL Absolute Nucleated RBC (0.0-0.012) X10*3/uL Nucleated RBC % (auto) (0.0-0.2) /100WBC ESR (0-15) MM/HR Sodium (135-145) mmol/L Potassium (3.3-5.1) mmol/L Chloride (96-108) mmol/L Carbon Dioxide (22-29) mmol/L Anion Gap (12-20) BUN (9-16) mg/dL Creatinine (0.5-1.4) mg/dL Estim Creat Clear Calc Estimated GFR Random Glucose (60-115) mg/dL Estimat Average Glucose 189 mg/dL Hemoglobin A1c % 8.2 % Calcium (8.4-10.2) mg/dL Total Bilirubin (0.0-1.0) mg/dL AST (5-37) U/L ALT (0-40) U/L Alkaline Phosphatase (39-117) U/L Total Creatine Kinase (38-174) U/L Troponin I High Sens < 2.7 (<3.5-35.0) ng/L C-Reactive Protein (< or = 0.50) mg/dL Total Protein (6.5-8.0) g/dL Albumin (3.5-5.0) g/dL Lipase (8-78) U/L TSH (0.32-4.0) uIU/mL Independent Interpretation I performed an independent interpretation of an: EKG (Normal sinus rhythm heart rate 76, first-degree AV block, no acute ST elevations depressions, nonspecific T-wave changes.) and Plain X-Ray Prescription Management I considered prescription management with: Pain Medication Chronic Conditions Patient?s care impacted by: Diabetes and Hypertension Discharge Plan Discharge Clinical Impression: HTN (hypertension), Myalgia Patient Disposition: Home, Self-Care Instructions: How to Take a Blood Pressure (ED), Musculoskeletal Pain (ED), Hypertension (ED), Hypertension and Diabetes (ED) Additional Instructions: 1) Follow up with PMD regarding elevated blood pressure reading. Prescriptions: New meloxicam 15 mg tablet 15 mg PO DAILY Qty: 14 0RF No Action pen needle, diabetic [Pentips] 32 gauge x 5/32 needle 1 ea miscellaneous QID 30 Days Qty: 100 11RF Victoza 3-Beto 0.6 mg/0.1 mL (18 mg/3 mL) pen injector 1.8 mg subcut DAILY Qty: 9 3RF (DME) pen needle, diabetic [BD Ultra-Fine Marry Pen Needle] 32 gauge x 5/32 needle See Rx Instructions .ROUTE .MEDSUPPLY Qty: 125 11RF Rx Instructions: As directed four times a day Toujeo Max U-300 SoloStar 300 unit/mL (3 mL) insulin pen 80 unit subcut DAILY Qty: 6 1RF insulin lispro [Humalog KwikPen Insulin] 100 unit/mL insulin pen See Rx Instructions subcut .COMPLEX Qty: 33 3RF Rx Instructions: 40 units with breakfast, 35 units with lunch and dinner subcutaneously Invokana 300 mg tablet 300 mg PO DAILY 30 Days Qty: 30 3RF metformin 1,000 mg tablet 1,000 mg PO BID Qty: 60 3RF bisacodyl [Dulcolax (bisacodyl)] 5 mg tablet,delayed release (DR/EC) 10 mg PO ONCE 1 Days Qty: 2 0RF Rx Instructions: take at noon the day before colonoscopy polyethylene glycol 3350 [Miralax] 17 gram/dose powder 238 g PO ONCE 1 Days Qty: 238 0RF Rx Instructions: Take as directed by mouth the day before your procedure. cholecalciferol (vitamin D3) 50 mcg (2,000 unit) capsule 50 mcg PO DAILY 30 Days Qty: 30 11RF ibuprofen 800 mg tablet 800 mg PO TID Qty: 30 0RF bisacodyl [Dulcolax (bisacodyl)] 10 mg suppository 10 mg ND DAILY Qty: 12 0RF amlodipine 5 mg tablet 5 mg PO QAM gabapentin 100 mg capsule 100 mg PO BEDTIME aspirin 81 mg tablet,delayed release (DR/EC) 81 mg PO DAILY (DME) insulin syringe-needle U-100 1 mL 29 gauge x 1/2 syringe See Rx Instructions .ROUTE QID Qty: 10 Rx Instructions: As directed alcohol swabs Pads, Medicated 1 pad topical PRN chlorthalidone 50 mg tablet 50 mg PO QAM verapamil 120 mg tablet extended release 120 mg PO DAILY (DME) OneTouch Ultra Blue Test Strip Strip See Rx Instructions Not Applicable TID Qty: 10 Rx Instructions: As directed cetirizine 10 mg tablet 10 mg PO DAILY PRN (Reason: allergy symptoms) polyethylene glycol 3350 [Miralax] 17 gram/dose powder 17 g PO DAILY PRN (Reason: constipation) sennosides [senna] 8.6 mg tablet 17.2 mg PO DAILY PRN (Reason: constipation) bisacodyl [Dulcolax (bisacodyl)] 5 mg tablet,delayed release (DR/EC) 10 mg PO ONCE 1 Days Qty: 2 0RF Rx Instructions: Take 2 tablets by mouth at 12:00pm the day before your procedure. polyethylene glycol 3350 [Miralax] 17 gram/dose powder 238 g PO ONCE PRN (Reason: laxative effect) 1 Days Qty: 238 0RF Rx Instructions: Take as directed by mouth the day before your procedure. polyethylene glycol 3350 [Miralax] 17 gram/dose powder 17 g PO BID 5 Days Qty: 170 2RF Rx Instructions: take 17 g- bid for 5 days prior to prep day for colonoscopy docusate sodium [Colace] 100 mg capsule 200 mg PO BEDTIME 30 Days Qty: 60 5RF bisacodyl [Dulcolax (bisacodyl)] 10 mg suppository 10 mg ND DAILY Qty: 20 1RF Fiber Laxative(methylcellulos) 500 mg tablet 500 mg PO BID Qty: 60 5RF latanoprost 0.005 % drops 1 drp ophthalmic (eye) BEDTIME amitriptyline 10 mg tablet 10 mg PO BEDTIME atorvastatin 80 mg tablet 80 mg PO BEDTIME 30 Days Qty: 30 11RF Referrals: Name,MD Aneesh [Primary Care Provider] - [facility] [place] Rheumatology Service [Provider Group] Print Language: Kinyarwanda
[2023-01-03 07:09] VITALS: BP 167/74; PULSE 81; RESP 18; TEMP 36.8; O2SAT 96
--- NOTE | 2023-01-03 07:14 | ECG_ITS ---
Test Reason : cp Blood Pressure : / mmHG Vent. Rate : 076 BPM Atrial Rate : 076 BPM P-R Int : 218 ms QRS Dur : 086 ms QT Int : 358 ms P-R-T Axes : 050 000 042 degrees QTc Int : 402 ms Sinus rhythm with 1st degree A-V block Otherwise normal ECG When compared with ECG of 27-JAN-2022 13:14, No significant change was found Referred By: Sohan Nettles Electronically Signed By:JOHN BRANNON MD
--- NOTE | 2023-01-03 07:19 | PC.NURSE ---
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 respirations even and unlabored. skin appropriate for ethnicity. pt reporting pain all over the body for a few weeks which has gotten worse today. pt reports pain in throat, left side of abdomen and upper thighs. pt also reports a hard time swallowing sometimes. pt is soft spoken.
[2023-01-03 07:41] LABS: MANUAL DIFF FLAG NO
[2023-01-03] MEDS: Acetaminophen 325 MG TABLET 975 MG PO (07:44)
[2023-01-03 07:46] LABS: Basophils Percent Auto 0.4 % (0-2); Eosinophils Absolute Auto 0.1 X10*3/uL (0.0-0.4); Eosinophils Percent Auto 1.3 % (0-4); Hematocrit 45.9 % (42.0-52.0); Hemoglobin 15.3 g/dl (14.0-18.0); Imm Gran Abs Auto 0.06 X10*3/uL (0.00-0.03); Imm Gran Pct Auto 0.6 % (0.0-0.4); Lymphocytes Absolute Auto 2.2 X10*3/uL (1.2-4.9); Lymphocytes Percent Auto 22.7 % (20-40); Mean Corpuscular HGB Conc 33.3 g/dl (31.0-36.0); Mean Corpuscular Volume 86.9 fL (80.0-98.0); Monocytes Absolute Auto 0.8 X10*3/uL (0.1-1.2); Monocytes Percent Auto 8.3 % (2-11); Neutrophils Absolute Auto 6.4 x10*3/uL (2.0-8.3); Neutrophils Percent Auto 66.7 % (45-73); Platelet Count 295 X10*3/uL (160-400); Red Blood Count 5.28 X10*6/uL (4.60-5.80); White Blood Count 9.6 X10*3/uL (4.8-10.8)
[2023-01-03 07:56] LABS: Estimated Average Glucose 189 mg/dL; Hemoglobin A1c % 8.2 %
[2023-01-03 08:05] LABS: Alanine Aminotransferase 52 U/L (0-40); Alkaline Phosphatase 76 U/L (39-117); Anion Gap 12 (12-20); Aspartate Amino Transferase 31 U/L (5-37); Bilirubin Total 0.3 mg/dL (0.0-1.0); Blood Urea Nitrogen 23 mg/dL (9-16); C Reactive Protein 0.62 mg/dL (< or = 0.50); Calcium 10.2 mg/dL (8.4-10.2); Carbon Dioxide 27 mmol/L (22-29); Chloride 104 mmol/L (96-108); Creatinine Clr Calc Pharmacy 67.9; Estimated Glomerular Filt Rate > 60; Glucose Random 183 mg/dL (60-115); Lipase 44 U/L (8-78); Potassium 3.3 mmol/L (3.3-5.1); Sodium 140 mmol/L (135-145); Total Protein 7.7 g/dL (6.5-8.0)
[2023-01-03 08:09] LABS: Troponin-I High Sensitivity < 2.7 ng/L (<3.5-35.0)
[2023-01-03 08:32] LABS: Erythrocyte Sedimentation Rate 14 MM/HR (0-15)
[2023-01-03 09:34] VITALS: BP 160/68; PULSE 74; RESP 18; TEMP 36.6; O2SAT 96
--- NOTE | 2023-01-03 09:37 | PC.NURSE ---
calm, cooperative. no pain. vss. at rest. talking clearly. gavin qually
== END 2023-01-03 10:08 | disposition home or self-care (01) ==
PROVIDERS: Emergency Provider Emergency Medicine; PCP Internal Medicine Geriatric Medicine
DX: M79.10 Myalgia, unspecified site (principal); I10 Essential (primary) hypertension; R10.12 Left upper quadrant pain; E11.9 Type 2 diabetes mellitus without complications; E78.5 Hyperlipidemia, unspecified; Z79.899 Other long term (current) drug therapy; Z79.4 Long term (current) use of insulin
CPT/HCPCS: 36415; 71046; 80053; 82550; 83036; 83690; 84443; 84484; 85025; 85652; 86140; 93005; 99283; 99285

== ENCOUNTER → 2023-01-03 07:14 | Outpatient (BNV) | payer OTHER, MEDICAID, SELFPAY | PROVIDERS: Emergency Provider Emergency Medicine; PCP Internal Medicine Geriatric Medicine; Visit Provider Internal Medicine Cardiovascular Disease | DX: R07.9 Chest pain, unspecified (principal) | CPT/HCPCS: 93010 ==

== ENCOUNTER 2023-02-10 06:32 | Day surgery (SDC) | payer OTHER, MEDICAID, SELFPAY ==
[2023-02-08 08:11] VITALS: BMI 35.0
--- NOTE | 2023-02-09 08:36 | HO.ANESPROP2 ---
Documented by User: Michelle Sky NP 02/09/23 08:43 HPI - Anesthesia Eval Consult details Narrative: 72yo M for Colonoscopy Follows [facility] [place] cardiology: Last visit 08/2022 after negative stress testing. Walking without symptoms. Stable for yearly f/u. [facility] Active Problems Active Problems: All Active Problems (Updated 01/04/23 @ 00:01 by Ann Marie Little) Chest pain (Acute) History of colon polyps (Acute) Hemorrhoids (Acute) Diverticulosis of colon (Acute) NAFLD (nonalcoholic fatty liver disease) (Acute) Lower extremity pain, bilateral (Acute) PAD (peripheral artery disease) (Acute) Varicose veins of right lower extremity with inflammation (Acute) Chronic constipation (Acute) Epigastric pain (Acute) Transaminitis (Acute) Aortic stenosis (Acute) Basal cell carcinoma (BCC) (Acute) Skin lesion of left lower extremity (Acute) Heart murmur (Acute) Familial hypocalciuric hypercalcemia (Acute) Multinodular thyroid (Acute) Vitamin D deficiency (Acute) HLD (hyperlipidemia) (Acute) HTN (hypertension) (Acute) T2DM (type 2 diabetes mellitus) (Acute) Past Medical History Medical History Basal cell carcinoma (BCC) Familial hypocalciuric hypercalcemia Heart murmur HLD (hyperlipidemia) HTN (hypertension) Multinodular thyroid NAFLD (nonalcoholic fatty liver disease) Skin lesion of left lower extremity T2DM (type 2 diabetes mellitus) Transaminitis Vitamin D deficiency Family History Family History Father CVD (cardiovascular disease) Diabetes Brother CVD (cardiovascular disease) Diabetes FH: heart attack Surgical History Surgical History Hx of appendectomy Hx of cholecystectomy Hx of colonoscopy Hx of esophagogastroduodenoscopy Hx of melanoma excision Social History Social History Household Members: Family Alcohol intake: never Patient Tobacco Use Status: Never used Tobacco Are you DNR?: No Advance Directives: No Advance Directives Information Provided: Yes Nutrition Risks: No Nutritional Risk Meds Allergies Allergy/AdvReac Type Severity Reaction Status Date / Time lisinopril [LISINOPRIL] Allergy Severe ANGIOEDEMA Verified 02/10/23 06:58 prednisone [PREDNISONE] Allergy Mild ITCHY Verified 02/10/23 06:58 Home Medications Medication Instructions Recorded Confirmed Last Taken Type alcohol swabs 1 pad topical PRN 05/07/20 12/08/22 Unknown History amlodipine 5 mg tablet 5 mg PO QAM 05/07/20 02/10/23 Unknown History aspirin 81 mg tablet,delayed 81 mg PO DAILY 05/07/20 02/10/23 Unknown History release blood sugar diagnostic #10 ea 05/07/20 12/08/22 Unknown History chlorthalidone 50 mg tablet 50 mg PO QAM 05/07/20 02/10/23 Unknown History gabapentin 100 mg capsule 100 mg PO BEDTIME 05/07/20 02/10/23 Unknown History insulin syringe-needle U-100 1 mL #10 ea 05/07/20 12/08/22 Unknown History 29 gauge x 1/2 cetirizine 10 mg tablet 10 mg PO DAILY PRN allergy symptoms 08/21/20 02/10/23 Unknown History sennosides 8.6 mg tablet (senna) 17.2 mg PO DAILY PRN constipation 08/12/21 02/10/23 Unknown History latanoprost 0.005 % eye drops 1 drp ophthalmic (eye) BEDTIME 03/18/22 02/10/23 Unknown History Exam Exam Date and Time: February 09, 2023 0836 Height,Weight and Vital Signs: Height 5 ft 6 in Weight 98.43 kg Pertinent Lab Results Pertinent Lab Results: Laboratory Tests 01/03/23 01/03/23 07:36 07:36 WBC 9.6 Hgb 15.3 Hct 45.9 Plt Count 295 Sodium 140 Potassium 3.3 Chloride 104 Carbon Dioxide 27 BUN 23 H Creatinine 1.08 Narrative Narrative: EKG 12/2022 Vent. Rate : 076 BPM ? ? Atrial Rate : 076 BPM ?? P-R Int : 218 ms? QRS Dur : 086 ms ? ? QT Int : 358 ms ? ? ? P-R-T Axes : 050 000 042 degrees ?? QTc Int : 402 ms ? Sinus rhythm with 1st degree A-V block Otherwise normal ECG When compared with ECG of 27-JAN-2022 13:14, No significant change was found ? NM dionna perf SPECT rest & str 05/2022 IMPRESSION: ? 1.? Myocardial perfusion imaging study shows normal myocardial perfusion at the attained workload of 4.6METS. 2.? Gated LVEF is 62% during stress and 59% during rest. 3. Transient ischemic dilatation not present. ? EKG component of the test reported separately. Assessment and Plan Assessment Anesthesia Assessment: Chart Reviewed Documented by User: Tarik Castrejon MD 02/10/23 07:26 PMF Past Medical History Medical History Basal cell carcinoma (BCC) Familial hypocalciuric hypercalcemia Heart murmur HLD (hyperlipidemia) HTN (hypertension) Multinodular thyroid NAFLD (nonalcoholic fatty liver disease) Skin lesion of left lower extremity T2DM (type 2 diabetes mellitus) Transaminitis Vitamin D deficiency Family History Family History Father CVD (cardiovascular disease) Diabetes Brother CVD (cardiovascular disease) Diabetes FH: heart attack Family history of problems with anesthesia: No Surgical History Surgical History Hx of appendectomy Hx of cholecystectomy Hx of colonoscopy Hx of esophagogastroduodenoscopy Hx of melanoma excision History of Problems with Anesthesia: No Social History Social History Household Members: Family Alcohol intake: never Patient Tobacco Use Status: Never used Tobacco Are you DNR?: No Advance Directives: No Advance Directives Information Provided: Yes Nutrition Risks: No Nutritional Risk Meds Allergies Allergy/AdvReac Type Severity Reaction Status Date / Time lisinopril [LISINOPRIL] Allergy Severe ANGIOEDEMA Verified 02/10/23 06:58 prednisone [PREDNISONE] Allergy Mild ITCHY Verified 02/10/23 06:58 Home Medications Medication Instructions Recorded Confirmed Last Taken Type alcohol swabs 1 pad topical PRN 05/07/20 12/08/22 Unknown History amlodipine 5 mg tablet 5 mg PO QAM 05/07/20 02/10/23 Unknown History aspirin 81 mg tablet,delayed 81 mg PO DAILY 05/07/20 02/10/23 Unknown History release blood sugar diagnostic #10 ea 05/07/20 12/08/22 Unknown History chlorthalidone 50 mg tablet 50 mg PO QAM 05/07/20 02/10/23 Unknown History gabapentin 100 mg capsule 100 mg PO BEDTIME 05/07/20 02/10/23 Unknown History insulin syringe-needle U-100 1 mL #10 ea 05/07/20 12/08/22 Unknown History 29 gauge x 1/2 cetirizine 10 mg tablet 10 mg PO DAILY PRN allergy symptoms 08/21/20 02/10/23 Unknown History sennosides 8.6 mg tablet (senna) 17.2 mg PO DAILY PRN constipation 08/12/21 02/10/23 Unknown History latanoprost 0.005 % eye drops 1 drp ophthalmic (eye) BEDTIME 03/18/22 02/10/23 Unknown History Assessment and Plan Final Anesthetic Review Family History of Problems with Anesthesia: No History of Problems with Anesthesia: No NPO: Yes ASA Class: III Final Preanesthetic Review: No Changes in Pt Med Stat, Meds/Allgs Chart Reviewed, Consent Obtained/Reviewed and Anes Risks/Benef Reviewed Patient Risk: High Procedure Risk: Low Anesthetic Plan Anesthetic Plan: MAC: and Agree w/ Assess. and Plan Disposition: Standard PACU
--- NOTE | 2023-02-10 06:37 | MHC.SHP ---
Pre-Procedural Eval Section A Date of Service: 02/10/23 Section B Chief Complaint: Diverticulosis of large intestine without perforat Relevant Family History (Specify if Yes): No Relevant Social History: None Present Medications: see Short Stay Collaborative assessment Medical History: Significant History (Basal cell carcinoma (BCC) Familial hypocalciuric hypercalcemia Heart murmur HLD (hyperlipidemia) HTN (hypertension) Multinodular thyroid NAFLD (nonalcoholic fatty liver disease) Skin lesion of left lower extremity T2DM (type 2 diabetes mellitus) Transaminitis Vitamin D deficiency) History of Previous Operations: Relevant previous surgery/procedure and date(s) (Hx of appendectomy Hx of cholecystectomy Hx of colonoscopy Hx of esophagogastroduodenoscopy Hx of melanoma excision) Allergies: Allergies Allergy/AdvReac Type Severity Reaction Status Date / Time lisinopril [LISINOPRIL] Allergy Severe ANGIOEDEMA Verified 12/08/22 09:12 prednisone [PREDNISONE] Allergy Mild ITCHY Verified 12/08/22 09:12 Review of Systems Sugical H&P ROS: Negative: Constitution, Cardiovascular, Respiratory, Neurological, Psychiatric, Hem-Onc, Allergic/Immunologic, Gastrointestinal, Genitourinary, Musculoskeletal, Integumentary, Endocrine and Eyes/Ears/Nose/Throat Exam Surgical H&P Exam: Normal: HEENT, Normal: Heart, Normal: Lungs, Normal: Extremities, Normal: Abdomen, Normal: Skin and Normal: Neurological Plan Diagnosis/Plan: Unchanged I have reviewed the history and physical and performed a pertinent physical examination on my patient. No changes have occurred unless specified. Time Spent With Patient Time: Total time managing care of this patient today ____ minutes.
[2023-02-10 07:00] VITALS: BP 184/78; PULSE 70; RESP 18; TEMP 36.8; O2SAT 97
[2023-02-10] MEDS: Lactated Ringers 1,000 ML 100 ML IVCONT (07:01)
[2023-02-10 07:20] VITALS: BP 181/84
--- NOTE | 2023-02-10 07:28 | PC.NURSE ---
dr. albarado aware of bp, raspy voice - see notes, and poc.
[2023-02-10 07:33] LABS: Glucose, Whole Blood 194 mg/dL (60-115)
--- NOTE | 2023-02-10 07:42 | P.OP_ITS ---
Operative Note Operative Note Date of Service: 02/10/23 Narrative: Operative Information Procedure Description: Colonoscopy Indication: screening Anesthesia: MAC COLONOSCOPY Instrument: Olympus variable stiffness pediatric scope 190L Colonoscopy Monitoring: Vital signs and clinical assessment, continuous EKG monitoring, Pulse oximetry, Carbon Dioxide monitoring and blood pressure monitoring were done throughout the procedure. Colon withdrawal time was 12 minutes. Procedure: The patient was placed in the left lateral decubitis position and pre-procedure medications were administered. After a digital rectal examination of the ano-rectum, the video colonoscope was inserted into the rectum and advanced through the colon to the cecum/TI. The colonoscope was slowly withdrawn in a retrograde panoramic fashion and the colon mucosa was carefully examined including a retroflexed view of the rectum. Findings and interventions are described below. Procedure Difficulty: easy Findings: Terminal Ileum-not intubated Cecum: 12-13 mm sessile polyp removed with cold snare Ascending Colon: 4-6 mm sessile polyp removed with cold forceps Transverse Colon -normal Descending Colon:normal Sigmoid Colon: moderate diverticulosis Rectum: Retroflexion with moderate sized internal hemorrhoids, grade I Anorectum - normal Colon preparation: [place] Bowel Preparation Scale Right colon; 2 Transverse colon: 2 Left colon; 2 (0 = Unprepared colon segment with mucosa not seen due to solid stool that cannot be cleared. 1 = Portion of mucosa of the colon segment seen, but other areas of the colon segment not well seen due to staining, residual stool and/or opaque liquid. 2 = Minor amount of residual staining, small fragments of stool and/or opaque liquid, but mucosa of colon segment seen well. 3 = Entire mucosa of colon segment seen well with no residual staining, small fragments of stool or opaque liquid) Impression and Post Procedure Diagnosis: polyps internal hemorrhoids diverticular disease Plan: High fiber diet leaflet Avoid straining at stool, epsom salts and sitz bath, anusol supps or cream Repeat Colonoscopy in 3-4 years or earlier if clinically indicated Above findings were reviewed with the patient and relevant handouts were provided if indicated.
[2023-02-10 08:08] VITALS: BP 131/67; PULSE 72; RESP 14; TEMP 36.2; O2SAT 97
[2023-02-10 08:23] VITALS: BP 141/69; PULSE 74; RESP 18; TEMP 36.2; O2SAT 97
== END 2023-02-10 09:41 | disposition home or self-care (01) ==
PROVIDERS: PCP Internal Medicine Geriatric Medicine; Visit Provider Internal Medicine Gastroenterology
PROC: 0DJD8ZZ Inspection of Lower Intestinal Tract, Via Natural or Artificial Opening Endoscopic (ICD-10-PCS; CPT 45378; principal; 2023-02-10 07:30)
DX: Z12.11 Encounter for screening for malignant neoplasm of colon (principal); Z86.010 Personal history of colon polyps; D12.0 Benign neoplasm of cecum; K63.5 Polyp of colon; K57.30 Diverticulosis of large intestine without perforation or abscess without bleeding; K64.0 First degree hemorrhoids; K59.09 Other constipation; K76.0 Fatty (change of) liver, not elsewhere classified; C44.91 Basal cell carcinoma of skin, unspecified; I10 Essential (primary) hypertension; E78.5 Hyperlipidemia, unspecified; E11.9 Type 2 diabetes mellitus without complications; Z85.820 Personal history of malignant melanoma of skin; Z88.8 Allergy status to other drugs, medicaments and biological substances; Z79.82 Long term (current) use of aspirin; Z79.4 Long term (current) use of insulin; Z79.899 Other long term (current) drug therapy
CPT/HCPCS: 45385; 45380; 82947; 88305

== ENCOUNTER → 2023-02-10 06:32 | Outpatient (BNV) | payer OTHER, MEDICAID, SELFPAY | PROVIDERS: PCP Internal Medicine Geriatric Medicine; Visit Provider Internal Medicine Gastroenterology | DX: Z12.11 Encounter for screening for malignant neoplasm of colon (principal); D12.0 Benign neoplasm of cecum; D12.2 Benign neoplasm of ascending colon; K57.30 Diverticulosis of large intestine without perforation or abscess without bleeding; K64.0 First degree hemorrhoids | CPT/HCPCS: 45380; 45385 ==

== ENCOUNTER 2023-02-24 07:46 | Outpatient (AMB) | payer OTHER, MEDICAID, SELFPAY ==
--- NOTE | 2023-02-24 07:53 | A.OFFVIS_ITS ---
Intake Vital Signs 02/24/23 07:56 Height 5 ft 6 in Weight 217 lb BMI 35.0 BP 164/73 H Blood Pressure Location Lt brachial Position Sitting Pulse 75 Intake Visit Reasons: S/p colon-Rios Intake Note: Patient follow up for Colonoscopy results. Patient cc: constipation on and off, acid reflex coma and go and gassy. Livestock Yard Supervisor Required: Yes Livestock Yard Supervisor Name: [facility] [place] Accompanied by: Self / Same As Patient Allergies lisinopril [LISINOPRIL] Allergy (Severe, Verified 02/24/23 07:52) ANGIOEDEMA prednisone [PREDNISONE] Allergy (Mild, Verified 02/24/23 07:52) ITCHY Medication List - Last Reconciled 02/24/23 by Candis Kendrick PA-C alcohol swabs 1 pad topical PRN amlodipine 5 mg PO QAM aspirin 81 mg PO DAILY bisacodyl (Dulcolax (bisacodyl)) 10 mg MA DAILY blood sugar diagnostic As directed canagliflozin (Invokana) 300 mg PO DAILY 30 days cetirizine 10 mg PO DAILY PRN chlorthalidone 50 mg PO QAM cholecalciferol (vitamin D3) 50 mcg PO DAILY 30 days docusate sodium (Colace) 200 mg (2 x 100 mg) PO BEDTIME 30 days gabapentin 100 mg PO BEDTIME ibuprofen 800 mg PO TID insulin glargine U-300 conc (Toujeo Max U-300 SoloStar) 80 units (0.2667 mL) subcut BEDTIME insulin lispro (Humalog KwikPen (U-100) Insulin) 40 units with breakfast, 35 units with lunch and dinner subcutaneously insulin syringe-needle U-100 As directed latanoprost 0.005% 1 drp ophthalmic (eye) BEDTIME liraglutide (Victoza 3-Beto) 1.8 mg (0.3 mL) subcut DAILY metformin 1,000 mg PO BID methylcellulose (laxative) (Fiber Laxative (methylcellulose)) 500 mg PO BID pen needle, diabetic (Pentips) 1 ea miscellaneous QID 30 days pen needle, diabetic (BD Ultra-Fine Marry Pen Needle) As directed four times a day sennosides (senna) 17.2 mg PO DAILY PRN HPI HPI Comments History of Present Illness Details 72-year-old male follows up after recent [facility] Medical History (Updated 02/24/23 @ 08:22 by Candis Kendrick PA-C) NAFLD (nonalcoholic fatty liver disease) Transaminitis Basal cell carcinoma (BCC) Skin lesion of left lower extremity Heart murmur Familial hypocalciuric hypercalcemia Multinodular thyroid Vitamin D deficiency HLD (hyperlipidemia) HTN (hypertension) T2DM (type 2 diabetes mellitus) Surgical History Hx of melanoma excision Hx of esophagogastroduodenoscopy Hx of colonoscopy Hx of appendectomy Hx of cholecystectomy Family History Father CVD (cardiovascular disease) Diabetes Brother CVD (cardiovascular disease) Diabetes FH: heart attack Social History Household Members: Family Alcohol intake: never Patient Tobacco Use Status: Never used Tobacco Review of Systems Const All systems reviewed & are unremarkable except as noted in HPI and below Physical Exam Vital Signs: Last Vital Signs Pulse 75 02/24/23 07:56 BP 164/73 H 02/24/23 07:56 BMI result Body Mass Index 35.0 Results Reviewed Results Reviewed: Impression and Post Procedure Diagnosis: polyps internal hemorrhoids diverticular disease Plan: High fiber diet leaflet Avoid straining at stool, epsom salts and sitz bath, anusol supps or cream Repeat Colonoscopy in 3-4 years or earlier if clinically indicated __ Name: Josue Gautam Age/Sex: 72/M Attending: Lorenza Rios MD : 1950 Submitted by: Lorenza Rios MD Copies to: Aneesh Oliveira MD MR #: [id number] Status: [facility] Collected: 02/10/23 Location: [facility] Received: 02/10/23 Diagnosis A. Colon, ascending, polypectomy: Colonic mucosa with surface hyperplastic changes, no evidence of adenoma. B. Colon, cecum, polypectomy: Tubular adenoma, no evidence of high-grade dysplasia or invasive carcinoma. Assessment & Plan Assessment & Plan (1) Serrated adenoma of colon: Comment: History of colon polyps Code(s): D12.6 - Benign neoplasm of colon, unspecified Plan: Asymptomatic colonoscopy 3-4 year (2) Diverticulosis of colon: Comment: Maintain high-fiber diet, diverticulosis diverticulitis ER protocol Code(s): K57.30 - Diverticulosis of large intestine without perforation or abscess without bleeding (3) Hemorrhoids: Comment: Not bothersome Code(s): K64.9 - Unspecified hemorrhoids Plan: Avoid straining, maintain high-fiber diet rectal cream as needed (4) NAFLD (nonalcoholic fatty liver disease): Comment: Maintain good weight, cholesterol and glucose control-avoid alcohol Code(s): K76.0 - Fatty (change of) liver, not elsewhere classified Plan: Maintain good weight, cholesterol and glucose control-avoid alcohol Jun 2023- U/S- labs - he may go one time- do [facility] (5) History of colon polyps: Comment: [id number]-dqpeic-9/2020- due 02/2023- Code(s): Z86.010 - Personal history of colonic polyps (6) Chronic constipation: Comment: HFD-colace miralax- Code(s): K59.09 - Other constipation Plan: Maintain bowel regimen avoid constipation with high-fiber diet Patient Instructions: Very pleasant, soft-spoken 72-year-old Gent follows up after recent polyp surveillance colonoscopy with polypectomy, NAFLD Reviewed lifestyle and dietary recommendations- Maintain good weight, cholesterol and glucose control-avoid alcohol Maintain high-fiber diet, diverticulosis diverticulitis ER protocol Repeat asymptomatic colonoscopy 3-4 years Jun 2023- U/S- labs - he may go one time- do both A encouraged to call questions or concerns Appreciate the opportunity assist in care this pleasant Gent Coding Level of Care Code Est Pt Level 3 (83881) Diagnoses Serrated adenoma of colon D12.6 Diverticulosis of colon K57.30 Hemorrhoids K64.9 NAFLD (nonalcoholic fatty liver disease) K76.0 History of colon polyps Z86.010 Chronic constipation K59.09 Time Spent (min) 30
[2023-02-24 07:56] VITALS: BP 164/73; PULSE 75; BMI 35.0
== END 2023-02-24 08:35 | disposition home or self-care (01) ==
PROVIDERS: PCP Internal Medicine Geriatric Medicine; Visit Provider Physician Assistant
DX: D12.6 Benign neoplasm of colon, unspecified (principal); K57.30 Diverticulosis of large intestine without perforation or abscess without bleeding; K64.9 Unspecified hemorrhoids; K76.0 Fatty (change of) liver, not elsewhere classified; Z86.010 Personal history of colon polyps; K59.09 Other constipation
CPT/HCPCS: 99213

== ENCOUNTER → 2023-02-24 07:46 | Outpatient (BNVA) | payer OTHER, MEDICAID, SELFPAY | PROVIDERS: PCP Internal Medicine Geriatric Medicine; Visit Provider Physician Assistant | DX: D12.0 Benign neoplasm of cecum (principal); K57.30 Diverticulosis of large intestine without perforation or abscess without bleeding; K64.9 Unspecified hemorrhoids; K76.0 Fatty (change of) liver, not elsewhere classified; K59.09 Other constipation; Z98.890 Other specified postprocedural states | CPT/HCPCS: 99212 ==

== ENCOUNTER 2023-04-01 07:43 | Outpatient (REF) | payer OTHER, SELFPAY ==
[2023-04-01 08:35] LABS: Anion Gap 14 (12-20); Blood Urea Nitrogen 19 mg/dL (9-16); Calcium 10.2 mg/dL (8.4-10.2); Carbon Dioxide 27 mmol/L (22-29); Chloride 102 mmol/L (96-108); Estimated Glomerular Filt Rate > 60; Glucose Random 108 mg/dL (60-115); Potassium 3.9 mmol/L (3.3-5.1); Sodium 139 mmol/L (135-145)
== END 2023-04-01 07:44 | disposition home or self-care (01) ==
LOC: HO.LAB 07:43
PROVIDERS: PCP Internal Medicine Geriatric Medicine; Visit Provider Internal Medicine Geriatric Medicine
DX: E11.69 Type 2 diabetes mellitus with other specified complication (principal); N18.31 Chronic kidney disease, stage 3a
CPT/HCPCS: 36415; 80048

== ENCOUNTER 2023-04-07 09:26 | Outpatient (AMB) | payer OTHER, MEDICAID, SELFPAY ==
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
[2023-04-07 09:43] VITALS: BP 130/72; PULSE 81; RESP 16; O2SAT 95; BMI 35.2
== END 2023-04-07 10:06 | disposition home or self-care (01) ==
PROVIDERS: PCP Internal Medicine Geriatric Medicine; Visit Provider Registered Nurse Emergency
DX: E11.65 Type 2 diabetes mellitus with hyperglycemia (principal); Z79.4 Long term (current) use of insulin; M54.16 Radiculopathy, lumbar region; M47.816 Spondylosis without myelopathy or radiculopathy, lumbar region
CPT/HCPCS: 99204

== ENCOUNTER → 2023-04-07 09:26 | Outpatient (BNVA) | payer OTHER, MEDICAID, SELFPAY | PROVIDERS: PCP Internal Medicine Geriatric Medicine; Visit Provider Registered Nurse Emergency | DX: M54.16 Radiculopathy, lumbar region (principal); M47.816 Spondylosis without myelopathy or radiculopathy, lumbar region; E11.65 Type 2 diabetes mellitus with hyperglycemia; Z79.4 Long term (current) use of insulin | CPT/HCPCS: 99202 ==

== ENCOUNTER 2023-04-14 09:04 | Outpatient (AMB) | payer OTHER, MEDICAID, SELFPAY ==
[2023-04-14 09:06] VITALS: BP 148/66; PULSE 74; BMI 35.6
--- NOTE | 2023-04-14 09:06 | MHC.OFFVIS ---
Intake Vital Signs 04/14/23 09:06 Height 5 ft 6 in Weight 220 lb 10.923 oz BMI 35.6 BP 148/66 H Blood Pressure Location Lt brachial Position Sitting Pulse 74 Pulse Source Pulse Oximeter Intake Visit Reasons: DM Intake Note: Patient presents today to follow up on Type 2 Diabetes Mellitus. Previously seen by Dr. David. Last Diabetic Eye exam: 2020 Last Podiatry Visit: None Random Glucose: 263 mg/dl HgA1C:8.4% Flexible Shaft Winder Required: Yes Flexible Shaft Winder Language: Compo Caster Name: Paula medical staff Information Interpreted: non-clinical & clinical Accompanied by: Self / Same As Patient Allergies lisinopril [LISINOPRIL] Allergy (Severe, Verified 04/14/23 09:40) ANGIOEDEMA prednisone [PREDNISONE] Allergy (Mild, Verified 04/14/23 09:40) ITCHY HPI HPI Comments History of Present Illness Details 72 YO M with PMHx Nontoxic multinodular thyroid, T2DM, HTN, HLD who is seen in F/U today. for type 2 diabetese patient last saw Dr. David on 12/08/2022 T2DM: Initially diagnosed with T2DM in 2004 during a routine physical exam. Was initially started on treatment with oral agents, but began requiring insulin in 2011. Current regimen Metformin 1000 mg PO BID, Invokana 300 mg PO daily, Victoza 1.8 mg daily, Toujeo 80 units qHS and Humalog 35 units AC. Checks suygars 3 times daily. Average glucose 183 with range -. Sixty to for 1 and stated deviation 71. 51% range with 47% hyperglycemia and 2% hypoglycemia 2-3 X/wk hypoglycemia Treats lows with orange juice and does check sugar after. Family history of T2DM in his Father and Brother. Has eyes checked yearly, last eye exam 2 yrs ago , has retinopathy. Has Neuropathy, sees podiatry. Has Nephropathy, not on JACQUELYN/ARB. UAC 268.4 09/02/2022. Followed by Nephrology for this. Was on Lisinopril 5 mg PO daily in the past but developed angioedema requiring admission to the ICU. Now using Invokana 300 mg PO daily. Has HLD, on Atorvastatin 40 mg PO daily, LDL 109 09/02/2022. Denies CAD. Diet: Has a sweet tooth. Eats sweets often. Is drinking juice daily. Has not had diabetes education. . Labs: Laboratory Tests 09/02/22 09/02/22 09/02/22 08:40 08:45 08:45 Sodium 141 Potassium 4.2 Creatinine 1.28 Estimated GFR 55 Hemoglobin A1c % 9.0 Triglycerides 129 Cholesterol 161 LDL Cholesterol Di rect LDL Cholesterol, C alc 102 HDL Cholesterol 34 25-OH Vitamin D To [place] 37.7 TSH 1.54 Free T4 0.76 Microalb/Creat Rat io 268.4 09/02/22 08:45 Sodium Potassium Creatinine Estimated GFR Hemoglobin A1c % Triglycerides Cholesterol LDL Cholesterol Di rect 109 H LDL Cholesterol, C alc HDL Cholesterol 25-OH Vitamin D To [place] TSH Free T4 Microalb/Creat Rat io PFSH Medical History (Updated 04/07/23 @ 10:17 by Berenice Escamilla APRN, SAWMILLING OPERATOR) NAFLD (nonalcoholic fatty liver disease) Transaminitis Basal cell carcinoma (BCC) Skin lesion of left lower extremity Heart murmur Familial hypocalciuric hypercalcemia Multinodular thyroid Vitamin D deficiency HLD (hyperlipidemia) HTN (hypertension) T2DM (type 2 diabetes mellitus) Surgical History Hx of melanoma excision Hx of esophagogastroduodenoscopy Hx of colonoscopy Hx of appendectomy Hx of cholecystectomy Family History Father CVD (cardiovascular disease) Diabetes Brother CVD (cardiovascular disease) Diabetes FH: heart attack Social History Household Members: Family Alcohol intake: never Patient Tobacco Use Status: Never used Tobacco Physical Exam Vital Signs: Last Vital Signs Pulse 74 04/14/23 09:06 BP 148/66 H 04/14/23 09:06 BMI result Body Mass Index 35.6 Absence of Cushingoid features. Absence of acromegalic features. Neck exam reveals nl size thyroid about 15 gms. No thyroid nodules palpable. No carotid bruits present. Lungs CTA. Heart S1 S2, Reg R/R. No M/R/ G. Skin exam reveals absence of vitiligo or acanthosis nigricans. Abdominal exam reveals Soft NT/ND with NA BS. No organomegaly present. Neck Other: . Extrem Other: Visual exam of foot performed. No ulcerations or open lesions. No onchomycosis, no callouses.Pulses 2 + distally Sensation intact to monofilament exam. Vibratory sensation sensed is intact with 128 Hz tuning fork Results AMB Hemoglobin A1c AMB Hemoglobin A1c 8.2 % Last Edit by Kerri Enriquez on 04/14/23 09:35 Results Reviewed Results Reviewed: 04/14/23 09:20 Glucose, Whole Blood Routine Laboratory Last Values Glucose (Clinic) 263 mg/dL (60-115) H 04/14/23 09:20 Hgb A1c (Clinic) 8.2 % (4.0-6.0) H 04/14/23 09:32 Assessment & Plan Assessment & Plan (1) T2DM (type 2 diabetes mellitus): Code(s): E11.9 - Type 2 diabetes mellitus without complications Qualifiers: Diabetes mellitus terminal operator insulin use: with prison use Diabetes mellitus complication status: with hyperglycemia Qualified Code(s): E11.65 - Type 2 diabetes mellitus with hyperglycemia; Z79.4 - intermodal owner operator truck driver (current) use of insulin Plan: This is 72-year-old male with history of type 2 diabetes being treated with metformin, Invokana, Victoza and basal-bolus insulin with fair glycemic control and known microvascular complications namely microalbuminia, neuropathy and retinopathy. The plan is to talk to the patient about initiating a Sensor perhaps Willy 2. Once sensors in place, may consider switching Victoza to once weekly Trulicity or Ozempic or Mounjaro . Will have patient follow-up with inclusion paraeducator. Will offer patient nutritional consult. Will also refer patient to podiatry and ophthalmology locally Orders: Orders AMB Hemoglobin A1c Today E11.9 - Type 2 diabetes mellitus without complications Referrals Nutrition/Dietitian Referral E11.9 - Type 2 diabetes mellitus without complications Coding Level of Care Code Est Pt Level 4 (91763) Diagnoses Type 2 diabetes mellitus with hyperglycemia, with long-term current use of insulin E11.65; Z79.4 Diabetes mellitus terminal operator insulin use: with terminal operator use Diabetes mellitus complication status: with hyperglycemia
[2023-04-14 09:26] LABS: Glucose, Whole Blood 263 mg/dL (60-115)
== END 2023-04-14 09:42 | disposition home or self-care (01) ==
PROVIDERS: PCP Internal Medicine Geriatric Medicine; Referring Provider Internal Medicine Geriatric Medicine; Visit Provider Internal Medicine Endocrinology, Diabetes & Metabolism
DX: E11.65 Type 2 diabetes mellitus with hyperglycemia (principal); Z79.4 Long term (current) use of insulin; E11.9 Type 2 diabetes mellitus without complications
CPT/HCPCS: 99214

== ENCOUNTER → 2023-04-14 09:04 | Outpatient (BNVA) | payer OTHER, MEDICAID, SELFPAY | PROVIDERS: PCP Internal Medicine Geriatric Medicine; Referring Provider Internal Medicine Geriatric Medicine; Visit Provider Internal Medicine Endocrinology, Diabetes & Metabolism | DX: E11.65 Type 2 diabetes mellitus with hyperglycemia (principal); Z79.4 Long term (current) use of insulin | CPT/HCPCS: 82947; 83036; 99212 ==

== ENCOUNTER 2023-05-12 10:09 | Outpatient (AMB) | payer OTHER, SELFPAY ==
[2023-05-12 10:19] VITALS: BP 134/74; PULSE 80; O2SAT 99; BMI 35.7
--- NOTE | 2023-05-12 10:19 | HO.NEPHOV_ITS ---
HPI HPI Comments History of Present Illness Details 72-year-old man with a history of longst anding hypertension and diabetes mellitus with CKD. He has had episodes of acute kidney injury an currently renal function is back to baseline. Baseline creatinine is less than 1.0. He has difficult to control blood sugars. Recent A1c was 8.2%. Blood pressure has been well controlled. He has microalbuminuria. He has not any WAI inhibitor due to angioedema requiring ICU admission. He is currently on Invokana History of nontoxic multinodular goiter. Store Operations Associate service was used COUNT INCLUDES THE [facility] Medical History NAFLD (nonalcoholic fatty liver disease) Transaminitis Basal cell carcinoma (BCC) Skin lesion of left lower extremity Heart murmur Familial hypocalciuric hypercalcemia Multinodular thyroid Vitamin D deficiency HLD (hyperlipidemia) HTN (hypertension) T2DM (type 2 diabetes mellitus) Surgical History Hx of melanoma excision Hx of esophagogastroduodenoscopy Hx of colonoscopy Hx of appendectomy Hx of cholecystectomy Family History Father CVD (cardiovascular disease) Diabetes Brother CVD (cardiovascular disease) Diabetes FH: heart attack Social History Household Members: Family Alcohol intake: never Patient Tobacco Use Status: Never used Tobacco Vital Signs 05/12/23 10:19 Height 5 ft 6 in Weight 221 lb BMI 35.7 BP 134/74 Blood Pressure Location Lt brachial Position Sitting Pulse 80 Pulse Source Pulse Oximeter Pulse Oximetry (%) 99 Oxygen Delivery Method Room Air Physical Exam Vital Signs: Last Vital Signs Pulse 80 05/12/23 10:19 BP 134/74 05/12/23 10:19 Pulse Ox 99 05/12/23 10:19 Oxygen Delivery Method Room Air 05/12/23 10:19 BMI result Body Mass Index 35.7 Const General: comfortable; No acute distress Orientation/consciousness: patient oriented x3 Eyes General: appearance normal, both eyes and all related structures Visual Drew: normal visual drew by confrontation Neck Neck: Yes supple and Yes no JVD Resp Effort & Inspection: normal respiratory effort and respiratory effort not decreased Auscultation: rhonchi Cardio Palpation: no palpable S3 and no palpable S4 Heart sounds: no rubs GI Inspection: Yes normal to inspection Palpation (GI): Soft to palpation Percussion: Yes normal to percussion Auscultation: normal bowel sounds General: Yes no CVA tenderness Back/Spine/Pelvis Back: no CVA tenderness Skin General skin exam: no petechiae and no purpura Neuro General: patient oriented x3 and no focal motor deficits Extrem General: No clubbing and No edema Results Reviewed Results Reviewed: All results reviewed Serum creatinine 0.97 as of March 2023 Urine microalbumin creatinine ratio was 293 Assessment & Plan Assessment & Plan (1) CKD (chronic kidney disease): Code(s): N18.9 - Chronic kidney disease, unspecified Plan: Due to underlying diabetic hypertensive kidney disease. No evidence of active glomerulonephritis or obstructive uropathy. Patient's serum creatinine is less than 1.0. Goal is to slow the progression of renal disease. Continue to avoid nephrotoxic agents including NSAIDs. Continue to use SGLT 2 inhibitors for cardiorenal protection Unable to use Wai inhibitors due to history of angioedema (2) HTN (hypertension): Comment: Stable Code(s): I10 - Essential (primary) hypertension Plan: Blood pressure is well controlled. Continue current regimen. Low-salt diet (3) T2DM (type 2 diabetes mellitus): Code(s): E11.9 - Type 2 diabetes mellitus without complications Qualifiers: Diabetes mellitus skilled nursing insulin use: with skilled nursing use Diabetes mellitus complication status: with hyperglycemia Qualified Code(s): E11.65 - Type 2 diabetes mellitus with hyperglycemia; Z79.4 - assisted (current) use of insulin Plan: Goal A1c less than 7% Follow with endocrinology Discussed weight Orders: Orders Electrolytes 6 Months N18.9 - Chronic kidney disease, unspecified Blood Urea Nitrogen 6 Months N18.9 - Chronic kidney disease, unspecified Creatinine 6 Months N18.9 - Chronic kidney disease, unspecified Calcium 6 Months N18.9 - Chronic kidney disease, unspecified Coding Level of Care Code Est Pt Level 3 (86406) Diagnoses CKD (chronic kidney disease) N18.9 Hypertension, unspecified type I10 Type 2 diabetes mellitus with hyperglycemia, with long-term current use of insulin E11.65; Z79.4 Diabetes mellitus skilled nursing insulin use: with skilled nursing use Diabetes mellitus complication status: with hyperglycemia
== END 2023-05-12 10:59 | disposition home or self-care (01) ==
PROVIDERS: PCP Internal Medicine Geriatric Medicine; Visit Provider Internal Medicine Hypertension Specialist
DX: I12.9 Hypertensive chronic kidney disease with stage 1 through stage 4 chronic kidney disease, or unspecified chronic kidney disease (principal); N18.9 Chronic kidney disease, unspecified; E11.65 Type 2 diabetes mellitus with hyperglycemia; Z79.4 Long term (current) use of insulin
CPT/HCPCS: 99213

== ENCOUNTER → 2023-05-12 10:13 | Outpatient (BNVA) | payer OTHER, MEDICAID, SELFPAY | PROVIDERS: PCP Internal Medicine Geriatric Medicine; Visit Provider Internal Medicine Hypertension Specialist | DX: E11.22 Type 2 diabetes mellitus with diabetic chronic kidney disease (principal); I12.9 Hypertensive chronic kidney disease with stage 1 through stage 4 chronic kidney disease, or unspecified chronic kidney disease; N18.9 Chronic kidney disease, unspecified; E11.65 Type 2 diabetes mellitus with hyperglycemia; Z79.4 Long term (current) use of insulin | CPT/HCPCS: 99212 ==

== ENCOUNTER 2023-05-19 09:59 | Outpatient (REF) | payer OTHER, SELFPAY ==
--- NOTE | ~2023-05-19 | MR_ITS ---
EXAMINATION: MR LUMBAR SPINE WITHOUT CONTRAST CLINICAL INFORMATION: Left leg radiculopathy and low back pain. COMPARISON: MRI dated 05/03/2018. TECHNIQUE: Multiplanar, multisequence imaging was obtained. FINDINGS: VERTEBRAL BODIES AND PARASPINAL STRUCTURES: The marrow signal is within normal limits. There are no subluxations. Reduced intradiscal signal again evident at the L4-L5 and L5-S1 levels. No marrow or soft tissue edema identified. No compression fractures are seen. The paraspinal soft tissues are normal. There is a 2 cm right cyst, for which no further imaging followup is indicated. CONUS MEDULLARIS AND CAUDA EQUINE: The distal cord, conus tip, and cauda equina nerve roots are normal. On the nondiagnostic localizer acquisition, there is enlargement of the prostate gland measuring 5.7 x 5 cm in size. SPINAL LEVELS: L1-L2: Very mild disc bulge. No central canal stenosis or foraminal narrowing. L2-L3: Mild facet arthropathy and very mild disc bulge with mild left foraminal encroachment. L3-L4: Broad-based disc bulge and shallow left paracentral disc protrusion with hypertrophic facet arthropathy resulting in moderate central canal stenosis and thecal sac distortion. Osseous spurring and bulging disc result in moderate bilateral foraminal encroachment. L4-L5: Broad-based disc bulge and hypertrophic facet arthropathy result in mild central canal stenosis. A previous disc extrusion has resorbed. Facet spurring and bulging disc result in [id number] right foraminal narrowing and severe left foraminal encroachment with mild distortion of the exiting left L4 nerve root. L5-S1: Broad-based disc bulge and hypertrophic facet arthropathy contacting the right S1 nerve root in the lateral recess. No central canal stenosis. Mild right foraminal narrowing. Ujcglhmk-[id number]-[id number] left foraminal encroachment. MR/MR lumbar spine wo con IMPRESSION: 1. Moderate central canal stenosis at the L3-L4 level with moderate bilateral foraminal narrowing. 2. Mild central canal stenosis at the L4-L5 level due to spondylosis. Severe left foraminal narrowing with mild distortion of the exiting left L4 nerve root. 3. Broad-based disc bulge and facet arthropathy at L5-S1 contacting the right S1 nerve root in the lateral recess. Xvibkfko-cb-rdflwm left foraminal narrowing. 4. Prostatomegaly.
== END 2023-05-19 10:00 | disposition home or self-care (01) ==
LOC: HO.MRI 09:59
PROVIDERS: PCP Internal Medicine Geriatric Medicine; Visit Provider Registered Nurse Emergency
DX: M54.16 Radiculopathy, lumbar region (principal); M47.816 Spondylosis without myelopathy or radiculopathy, lumbar region
CPT/HCPCS: 72148

== ENCOUNTER → 2023-06-23 09:51 | Outpatient (REF) | payer OTHER, SELFPAY ==
--- NOTE | 2023-06-23 09:53 | CA_ITS ---
Transthoracic Echocardiogram Patient (Last, First, Middle): Josue Gautam, Gender: Male Date of : 1950 Age: 72 Procedure Date: 06/23/2023 Procedure Type: Transthoracic Echocardiogram Location: OP Height: 167.64 cm Weight: 99.34 kg BSA: 2.08 m2 Heart Rate: 80 bpm BP: 158 / 70 mmHg Online Merchant: DENIS Ruby MD: Deanne De La Torre OPERATIONAL RISK ANALYST-[employer] Supervisor: Satya Cleveland MD Symptoms: I35.0 - Nonrheumatic aortic (valve) stenosis Study Quality: Adequate w definity ECG Rhythm: Sinus Conclusions: - 1. Normal LV ejection fraction 60 65% with impaired relaxation filling pattern 2. Fibrocalcific aortic valve changes noted with normal cardiac valvular Doppler 3. No gross pericardial effusion Findings Procedure Information Contrast agent, definity, is being given per protocol without apparent complications. Left Ventricle Normal left ventricular size, thickness, and systolic function. The visually estimated ejection fraction is between 60-65%. Spectral Doppler is indicative of an impaired relaxation filling pattern. E/E prime ratio is between 8 and 15 consistent with indeterminate filling pressures. Right Ventricle Normal right ventricular cavity size and systolic function. Atria The left atrium is likely dilated. Interatrial shunt cannot be excluded. The right atrium is normal in size. Aortic Valve There is mild calcification of the aortic valve. There is no aortic valve stenosis. The peak aortic gradient is 8 mmHg.The mean gradient is 5 mmHg. There is no aortic valve regurgitation. Mitral Valve Normal mitral valve structure and function. There is mild mitral annular calcification. There is trace mitral valve regurgitation. There is no mitral valve stenosis. Pulmonic Valve The pulmonic valve was not well visualized. Tricuspid Valve Likely normal tricuspid valve structure and function. Tricuspid regurgitation envelope is inadequate for calculation of right ventricular systolic pressure. Normal right atrial pressure. Great Vessels The pulmonary artery was not well visualized. There is mild dilatation of the ascending aorta measuring 3.70 cm. Venous The inferior vena cava is normal in size and collapses greater than 50% with inspiration. Pericardium/Pleural There is no evidence of pericardial effusion. Prior Study Comparison No significant change compared to prior study dated: 11/03/2020. Measurements 2D Linear Measurements IVSd: 1.03 0.6-0.9/0.6-1.0 cm LVIDd: 4.28 3.9-5.3/4.2-5.9 cm LVIDd Index: 2.06 2.4-3.2/2.2-3.1 cm/m2 LVIDs: 2.47 2.0-3.6 cm LVPWd: 1.01 0.7-1.1 cm LA Diam: 3.80 2.7-3.8/3.0-4.0 cm LAIDs Index: 1.83 1.5-2.3 cm/m2 LV Mass: 205.39 67-162/88-224 g LV Mass Index: 98.75 43-95/49-115 g/m2 LVOT Diam: 1.90 3.0+(-)1.3 cm 2D Systolic Function EF 4C: 61.70 >55% EF 2C: 72.70 >55% EF BiP: 66.60 >55% Mitral Valve MV Pk E: 0.64 MV PK A: 0.80 MV Decel Time: 275.00 E/A: 0.80 E'Lateral: 6.53 E'Medial: 6.53 E/E' Med: 9.80 E/E' Lat: 9.80 PHT: 81.00 MVA PHT: 2.72 Decel [place]: 2.34 Aortic Valve AoV Pk Mario: 1.42 AoV Mn Mario: 1.09 AoV VTI: 0.30 AoV Pk Grad: 8.00 Aov Mn Grad: 5.00 FATIMAH Cont.VTI: 2.21 LVOT LVOT Pk Mario: 1.08 LVOT Mn Mario: 0.82 LVOT VTI: 0.23 LVOT Pk Grad: 5.00 LVOT Mn Grad: 3.00 LVOT Diam: 1.90 LVOT Area: 2.84 Diastolic Function MV Pk E: 0.64 MV Pk A: 0.80 E/A: 0.80 E'Medial: 6.53 E/E' Med: 9.80 E' Laterial: 6.53 E/E' Lat: 9.80 Right Ventricle TAPSE (mm): 22.90 TVS' Mario: 15.30 Tricuspid Valve RA Press: 3.00 Great Vessels Aorta Sinus of Valsalva: 3.40 2.0-3.5 cm Ao Asc: 3.70 2.1-3.4 cm Pulmonary Valve PV Pk Mario: 1.24 Peak PV Grad: 6.00 Updated in Other Vendor System with Status of Final Satya Cleveland MD electronically signed on 06/23/2023 2:49:52 PM with status of Final
== END ==
LOC: HO.CARD 09:51
PROVIDERS: PCP Internal Medicine Geriatric Medicine; Visit Provider Nurse Practitioner Family
DX: I35.0 Nonrheumatic aortic (valve) stenosis (principal); R07.9 Chest pain, unspecified
CPT/HCPCS: 93306; Q9957

== ENCOUNTER → 2023-06-23 09:53 | Outpatient (BNV) | payer OTHER, SELFPAY | PROVIDERS: PCP Internal Medicine Geriatric Medicine; Visit Provider Internal Medicine Cardiovascular Disease | DX: I34.81 Nonrheumatic mitral (valve) annulus calcification (principal) | CPT/HCPCS: 93306 ==

== ENCOUNTER 2023-06-28 09:05 | Outpatient (AMB) | payer OTHER, SELFPAY ==
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
[2023-06-28 09:57] VITALS: BP 176/79; PULSE 85; RESP 18; O2SAT 94; BMI 35.7
== END 2023-06-28 09:27 | disposition home or self-care (01) ==
PROVIDERS: PCP Internal Medicine Geriatric Medicine; Visit Provider Registered Nurse Emergency
DX: E11.65 Type 2 diabetes mellitus with hyperglycemia (principal); Z79.4 Long term (current) use of insulin; M54.16 Radiculopathy, lumbar region; M47.816 Spondylosis without myelopathy or radiculopathy, lumbar region
CPT/HCPCS: 99213

== ENCOUNTER → 2023-06-28 09:05 | Outpatient (BNVA) | payer OTHER, SELFPAY | PROVIDERS: PCP Internal Medicine Geriatric Medicine; Visit Provider Registered Nurse Emergency | DX: M47.26 Other spondylosis with radiculopathy, lumbar region (principal); E11.65 Type 2 diabetes mellitus with hyperglycemia | CPT/HCPCS: 99212 ==

== ENCOUNTER 2023-07-01 10:42 | Outpatient (RCR) | payer OTHER, SELFPAY ==
--- NOTE | 2023-07-01 12:30 | MHC.PT.DC ---
[facility] [place] Office [place] Office [place] Office [address] [phone] F: [phone] F: [phone] F: [phone] F: [phone] Physical Therapy Discharge Report Diagnosis: B LOW BACK PAIN Date of Surgery: NA Date of Evaluation: 07/01/23 Date of Discharge: Treatments to Date: Cancellations to Date: No Shows to Date: Discharge Status: Discharge Summary: Pt IS 72 YO M REFERRED TO PT FROM PAIN MANAGEMENT (JANEY VALENCIA NP) WITH LOW BACK PAIN WHICH IS CHRONIC. Pt PRESENTS WITH POOR OVERALL FLEXIBILITY AND STRENGTH WITH C/O LBP AND SXS INTO L LE. HAS NOT HAD PT IN PAST. SHOULD BENEFIT FROM PT TO ADDRESS THESE ISSUES Electronically signed by: Please sign and return to therapist. Thank you for your referral.
--- NOTE | 2023-08-23 08:44 | MHC.PT.DC ---
[facility] [place] Office [place] Office [place] Office [address] Jigna Pal [address] [phone] F: [phone] F: [phone] F: [phone] F: [phone] Physical Therapy Discharge Report Diagnosis: B LOW BACK PAIN Date of Surgery: NA Date of Evaluation: 07/01/23 Date of Discharge: 08/23/23 Treatments to Date: 1 Cancellations to Date: No Shows to Date: Discharge Status: Recommend MD Follow-up Visit Non-compliance Discharge Summary: Pt SEEN FOR INIT EVAL AND THEN NO SHOWED THE REST OF HIS SCHEDULED APPTS (8) . PER ASSESSMENT FROM INIT EVAL Pt IS 72 YO M REFERRED TO PT FROM PAIN MANAGEMENT (JANEY VALENCIA NP) WITH LOW BACK PAIN WHICH IS CHRONIC. Pt PRESENTS WITH POOR OVERALL FLEXIBILITY AND STRENGTH WITH C/O LBP AND SXS INTO L LE. HAS NOT HAD PT IN PAST. SHOULD BENEFIT FROM PT TO ADDRESS THESE ISSUES Electronically signed by: DAT CEDILLO PT Please sign and return to therapist. Thank you for your referral.
== END 2023-08-23 08:48 | disposition home or self-care (01) ==
LOC: HO.PT 10:42
PROVIDERS: PCP Internal Medicine Geriatric Medicine; Visit Provider Registered Nurse Emergency
DX: M47.816 Spondylosis without myelopathy or radiculopathy, lumbar region (principal); M54.16 Radiculopathy, lumbar region
CPT/HCPCS: 97110; 97161; 97535

== ENCOUNTER 2023-07-20 13:45 | Outpatient (AMB) | payer OTHER, SELFPAY ==
--- NOTE | 2023-07-20 13:48 | A.OFFVIS_ITS ---
Intake Vital Signs 07/20/23 13:57 Height 5 ft 6 in Weight 219 lb 8 oz BMI 35.4 BP 168/74 H Blood Pressure Location Rt radial Position Sitting Pulse 74 Intake Visit Reasons: follow up constipation Intake Note: Patient is seen in office for follow up visit, following constipation. Pt c/o:admits to pain in the abdomen worse at night time, onset for a couple of weeks, continued constipation, straining, denies bleeding, nausea, vomit, diarrhea Manager Of Training And Development Required: Yes Manager Of Training And Development Language: Intern Retail Name: Cary BATISTA Information Interpreted: non-clinical & clinical Accompanied by: Self / Same As Patient Allergies lisinopril [LISINOPRIL] Allergy (Severe, Verified 07/20/23 13:59) ANGIOEDEMA prednisone [PREDNISONE] Allergy (Mild, Verified 07/20/23 13:59) ITCHY HPI HPI Comments History of Present Illness Details 72-year-old diabetic Gent follows up NAF LD personal history colon polyps chronic constipation Presents complains-diffuse, nonspecific- abdominal pain typically at nighttime, same as he has had for several years- Appetite is excellent is not affected He does have constipation however noncompliant with bowel regimen. BM every couple days- Blood sugars fluctuate-typically elevated reviewed labs hemoglobin A1c greater than 8 He has had no nausea, vomiting, fever or chills-no hematemesis or hematochezia PFSH Medical History NAFLD (nonalcoholic fatty liver disease) Transaminitis Basal cell carcinoma (BCC) Skin lesion of left lower extremity Heart murmur Familial hypocalciuric hypercalcemia Multinodular thyroid Vitamin D deficiency HLD (hyperlipidemia) HTN (hypertension) T2DM (type 2 diabetes mellitus) Surgical History Hx of melanoma excision Hx of esophagogastroduodenoscopy Hx of colonoscopy Hx of appendectomy Hx of cholecystectomy Family History Father CVD (cardiovascular disease) Diabetes Brother CVD (cardiovascular disease) Diabetes FH: heart attack Social History (Updated 07/21/23 @ 08:19 by Candis Kendrick PA-C) Household Members: Family Alcohol intake: never Patient Tobacco Use Status: Never used Tobacco Current occupational status: unemployed Review of Systems Card Denies chest pain and Denies dyspnea Resp Denies dyspnea GI Reports abdominal pain, Denies hematochezia, Reports constipation, Reports heartburn, Denies nausea and Denies vomiting Physical Exam Vital Signs: Last Vital Signs Pulse 74 07/20/23 13:57 BP 168/74 H 07/20/23 13:57 BMI result Body Mass Index 35.4 Const General: cooperative, comfortable and no acute distress Orientation/consciousness: patient oriented x3 Limitations: language barrier and ambulation with cane Eyes Conjunctivae: conjunctival abnormal (Conjunctiva injected bilaterally no drainage) Resp Effort & Inspection: normal respiratory effort and able to speak in complete sentences GI Inspection: Yes distended and Yes obesity Palpation (GI): Soft to palpation, nontender and no guarding Auscultation: normal bowel sounds Skin General skin exam: no rashes or lesions noted Neuro General: patient oriented x3 Extrem Other: Ambulates with cane Psych Appearance: grossly normal and well kempt Mental Status: mental status grossly normal Speech and movement: Clear speech present (Hoarseness) Attitude: cooperative Thought process: Normal thought process present Thought content: Normal thought content present Results Reviewed Results Reviewed: [address] [facility] [place] #: [id number] CT/CT abdomen pelvis wo con IMPRESSION: No acute findings. Mild subcutaneous edema of the anterior abdominal wall which given clinical history could represent mild contusion. No fluid collection or hematoma is seen. Assessment & Plan Assessment & Plan (1) NAFLD (nonalcoholic fatty liver disease): Comment: Maintain good weight, cholesterol and glucose control- Discussed at length-NAFLD, diabetes- Code(s): K76.0 - Fatty (change of) liver, not elsewhere classified (2) Chronic constipation: Comment: HFD-colace miralax- Code(s): K59.09 - Other constipation Plan: Consistent bowel regimen High-fiber diet Plan Update lab Abdominal ultrasound-further assess- Orders: Orders Comprehensive Met. Panel 07/20/23 K58.9 - Irritable bowel syndrome without diarrhea US abdomen complete 07/20/23 K76.0 - Fatty (change of) liver, not elsewhere classified Complete Blood Count Auto Diff 07/20/23 K76.0 - Fatty (change of) liver, not elsewhere classified Medications: New polyethylene glycol 3350 (Miralax) 17 grams PO DAILY 30 days 510 grams 6RF Patient Instructions: Consistent bowel regimen Reviewed previous CT questions asked answered to his satisfaction with assistance of tank worker Will update labs Abdominal ultrasound Encouraged to call with any questions or concerns Coding Level of Care Code Est Pt Level 4 (36036) Diagnoses NAFLD (nonalcoholic fatty liver disease) K76.0 Chronic constipation K59.09 Time Spent (min) 30 Comment Manager Of Training And Development-Ruth BATISTA
[2023-07-20 13:57] VITALS: BP 168/74; PULSE 74; BMI 35.4
== END 2023-07-20 14:35 | disposition home or self-care (01) ==
PROVIDERS: PCP Internal Medicine Geriatric Medicine; Visit Provider Physician Assistant
DX: K76.0 Fatty (change of) liver, not elsewhere classified (principal); K59.09 Other constipation
CPT/HCPCS: 99214

== ENCOUNTER → 2023-07-20 13:45 | Outpatient (BNVA) | payer OTHER, SELFPAY | PROVIDERS: PCP Internal Medicine Geriatric Medicine; Visit Provider Physician Assistant | DX: K59.09 Other constipation (principal); K76.0 Fatty (change of) liver, not elsewhere classified | CPT/HCPCS: 99212 ==

== ENCOUNTER 2023-08-10 08:16 | Outpatient (REF) | payer OTHER, SELFPAY ==
--- NOTE | ~2023-08-10 | US_ITS ---
EXAMINATION: US ABDOMEN COMPLETE CLINICAL INFORMATION: Fatty change of liver, not elsewhere classified. COMPARISON: CT abdomen and pelvis 01/27/2022. X-ray abdomen KUB 12/26/2021. Ultrasound abdomen complete with elastography 04/16/2021. Renal ultrasound 11/28/2014. TECHNIQUE: Real-time imaging of the abdominal viscera. FINDINGS: PANCREAS: Normal. ABDOMINAL AORTA: The proximal, mid, and distal segments are normal in caliber. INFERIOR VENA CAVA: Visualized portions are normal. LIVER: The liver is normal in size. The liver contour is normal. There is heterogeneously increased liver parenchymal echogenicity echogenicity. No focal hepatic lesion. There is no intrahepatic biliary duct dilatation seen. GALLBLADDER: Surgically absent. COMMON BILE DUCT: Normal in caliber measuring 0.5 cm in diameter. RIGHT KIDNEY: No hydronephrosis or renal calculi. The kidney measures 12.6 cm in maximum dimension. The right kidney contains a 2.3 x 1.8 x 1.5 cm benign, simple cyst. This requires no imaging follow-up. LEFT KIDNEY: Normal. No hydronephrosis. No renal calculi or focal parenchymal lesions. The kidney measures 12.6 cm in maximum dimension. SPLEEN: Normal. The spleen measures 10.3 cm in maximum dimension. FREE FLUID: None. US/US abdomen complete IMPRESSION: 1. There is heterogeneously increased hepatic echotexture, consistent with fatty infiltration or hepatocellular disease. Please correlate clinically. Provided history of fatty liver noted. No focal hepatic mass or intrahepatic biliary dilatation is seen. 2. The gallbladder is surgically absent.
[2023-08-10 08:31] LABS: MANUAL DIFF FLAG NO
[2023-08-10 09:16] LABS: Basophils Absolute Auto 0.1 X10*3/uL (0.0-0.2); Basophils Percent Auto 0.8 % (0-2); Eosinophils Absolute Auto 0.2 X10*3/uL (0.0-0.4); Eosinophils Percent Auto 1.4 % (0-4); Hematocrit 46.6 % (42.0-52.0); Hemoglobin 15.4 g/dl (14.0-18.0); Imm Gran Abs Auto 0.08 X10*3/uL (0.00-0.03); Imm Gran Pct Auto 0.7 % (0.0-0.4); Lymphocytes Absolute Auto 2.8 X10*3/uL (1.2-4.9); Lymphocytes Percent Auto 23.7 % (20-40); Mean Corpuscular Hemoglobin 29.3 pg (27.0-33.0); Mean Corpuscular Volume 88.6 fL (80.0-98.0); Mean Platelet Volume 10.6 fL (9.4-12.4); Monocytes Absolute Auto 0.9 X10*3/uL (0.1-1.2); Monocytes Percent Auto 7.4 % (2-11); Neutrophils Absolute Auto 7.8 x10*3/uL (2.0-8.3); Platelet Count 296 X10*3/uL (160-400); Red Blood Count 5.26 X10*6/uL (4.60-5.80); Red Cell Distribution Width 12.9 % (11.0-16.0); White Blood Count 11.8 X10*3/uL (4.8-10.8)
[2023-08-10 09:50] LABS: Alanine Aminotransferase 46 U/L (0-40); Albumin Level 3.9 g/dL (3.5-5.0); Alkaline Phosphatase 80 U/L (39-117); Anion Gap 15 (12-20); Aspartate Amino Transferase 27 U/L (5-37); Bilirubin Total 0.4 mg/dL (0.0-1.0); Blood Urea Nitrogen 34 mg/dL (9-16); Calcium 10.2 mg/dL (8.4-10.2); Carbon Dioxide 26 mmol/L (22-29); Chloride 98 mmol/L (96-108); Estimated Glomerular Filt Rate 55; Glucose Random 305 mg/dL (60-115); Potassium 3.8 mmol/L (3.3-5.1); Sodium 135 mmol/L (135-145); Total Protein 7.6 g/dL (6.5-8.0)
== END 2023-08-10 08:17 | disposition home or self-care (01) ==
LOC: HO.US 08:16
PROVIDERS: PCP Internal Medicine Geriatric Medicine; Visit Provider Physician Assistant
DX: K76.0 Fatty (change of) liver, not elsewhere classified (principal); K58.9 Irritable bowel syndrome, unspecified
CPT/HCPCS: 36415; 76700; 80053; 85025

== ENCOUNTER 2023-08-18 12:38 | Outpatient (AMB) | payer OTHER, SELFPAY ==
--- NOTE | 2023-08-18 12:54 | MHC.OFFVIS ---
Intake Vital Signs 08/18/23 12:57 Height 5 ft 6 in Weight 218 lb 4.122 oz BMI 35.2 BP 150/68 H Blood Pressure Location Lt brachial Position Sitting Pulse 78 Intake Visit Reasons: 1 month follow up Intake Note: Frederick presents in the office as a 1 month follow up. CC: He states that he feels so so. Still having symptoms in his stomach. Allergies lisinopril [LISINOPRIL] Allergy (Severe, Verified 08/18/23 12:57) ANGIOEDEMA prednisone [PREDNISONE] Allergy (Mild, Verified 08/18/23 12:57) ITCHY HPI HPI Comments History of Present Illness Details A73 y/o male here with his daughter- he is c/o sciatica- he cannot walk a long distance-he has an upcoming appointment with PCP Seen 1 month ago NAFLD personal history colon polyps chronic constipation, abdominal Still complains-diffuse, nonspecific- abdominal pain typically at nighttime, same as he has had for several years- no pain today- comes and goes nothing specific affects it. Appetite is excellent is not affected He does have constipation however compliant with bowel regimen, his pattern has much improved. He has BM 1-2 times a day- which is better-he is happy about this. Blood sugars continue to fluctuate-typically elevated reviewed labs hemoglobin A1c greater than 8 His daughter says that he does not follow any specific diet. Reviewed colonoscopy from 01/2023 Discussed pathology as well as recommendations Moderate diverticulosis sigmoid colon He has no nausea, vomiting, hematemesis, hematochezia, abdominal pain, fever or chills PFSH Medical History NAFLD (nonalcoholic fatty liver disease) Transaminitis Basal cell carcinoma (BCC) Skin lesion of left lower extremity Heart murmur Familial hypocalciuric hypercalcemia Multinodular thyroid Vitamin D deficiency HLD (hyperlipidemia) HTN (hypertension) T2DM (type 2 diabetes mellitus) Surgical History Hx of melanoma excision Hx of esophagogastroduodenoscopy Hx of colonoscopy Hx of appendectomy Hx of cholecystectomy Family History Father CVD (cardiovascular disease) Diabetes Brother CVD (cardiovascular disease) Diabetes FH: heart attack Social History Household Members: Family Alcohol intake: never Patient Tobacco Use Status: Never used Tobacco Current occupational status: unemployed Review of Systems Const All systems reviewed & are unremarkable except as noted in HPI and below Card Denies chest pain and Denies dyspnea Resp Denies dyspnea GI Denies abdominal pain, Denies hematochezia, Denies constipation, Denies heartburn, Denies nausea and Denies vomiting Physical Exam Vital Signs: Last Vital Signs Pulse 78 08/18/23 12:57 BP 150/68 H 08/18/23 12:57 BMI result Body Mass Index 35.2 Const General: cooperative, comfortable and no acute distress Nutritional Appearance: overweight Orientation/consciousness: patient oriented x3 Limitations: language barrier Resp Effort & Inspection: normal respiratory effort and able to speak in complete sentences Skin General skin exam: no rashes or lesions noted Neuro General: patient oriented x3 Extrem General: Yes full ROM Psych Appearance: well kempt Mental Status: mental status grossly normal Speech and movement: Normal speech and movement present Affect: normal affect Attitude: cooperative Thought process: Normal thought process present Thought content: Normal thought content present Results Reviewed Results Reviewed: US/US abdomen complete IMPRESSION: 1. There is heterogeneously increased hepatic echotexture, consistent with fatty infiltration or hepatocellular disease. Please correlate clinically. Provided history of fatty liver noted. No focal hepatic mass or intrahepatic biliary dilatation is seen. 2. The gallbladder is surgically absent. 2019- Repeat colo 3-5 years 02/2023-Gabriel Impression and Post Procedure Diagnosis: polyps internal hemorrhoids diverticular disease Plan: High fiber diet leaflet Avoid straining at stool, epsom salts and sitz bath, anusol supps or cream Repeat Colonoscopy in 3-4 years or earlier if clinically indicated- Above findings were reviewed with the patient and relevant handouts were provided if indicated. Assessment & Plan Assessment & Plan (1) NAFLD (nonalcoholic fatty liver disease): Comment: Maintain good weight, cholesterol and glucose control- Discussed at length-NAFLD, diabetes-again today with his daughter Code(s): K76.0 - Fatty (change of) liver, not elsewhere classified Plan: Follow-up every 6 months (2) Chronic constipation: Comment: HFD-colace miralax-improved Code(s): K59.09 - Other constipation Plan: Continue with consistent bowel regimen Keep well hydrated (3) History of colon polyps: Comment: [id number]-7/2020- repeat colonoscopy 01/2023- Code(s): Z86.010 - Personal history of colonic polyps Plan: Colonoscopy (4) Sciatica: Code(s): M54.30 - Sciatica, unspecified side Plan: F/U pcp (5) Diverticulosis of colon: Comment: Mod- sigmoid- Maintain high-fiber diet, diverticulosis diverticulitis ER protocol Code(s): K57.30 - Diverticulosis of large intestine without perforation or abscess without bleeding Plan: Discussed w/ daughter- importance- ER protocol Maintain high-fiber diet Orders: Orders Comprehensive Met. Panel 5 Months K76.0 - Fatty (change of) liver, not elsewhere classified Complete Blood Count Auto Diff 5 Months K59.09 - Other constipation, K76.0 - Fatty (change of) liver, not elsewhere classified, Z86.010 - Personal history of colonic polyps Patient Instructions: NAFLD- Abdominal pain- go to ED- r/o diverticulitis- reviewed protocol Maintain high-fiber diet Consistent bowel regimen Diverticulosis diverticulitis/ER protocol-reinforced Encouraged to call questions or concerns Will see back 6 months Coding Level of Care Code Est Pt Level 3 (98516) Diagnoses NAFLD (nonalcoholic fatty liver disease) K76.0 Chronic constipation K59.09 History of colon polyps Z86.010 Sciatica M54.30 Diverticulosis of colon K57.30 Time Spent (min) 30 Comment Daughter interpreted
[2023-08-18 12:57] VITALS: BP 150/68; PULSE 78; BMI 35.2
== END 2023-08-18 13:30 | disposition home or self-care (01) ==
PROVIDERS: PCP Internal Medicine Geriatric Medicine; Visit Provider Physician Assistant
DX: K76.0 Fatty (change of) liver, not elsewhere classified (principal); K59.09 Other constipation; Z86.010 Personal history of colon polyps; M54.30 Sciatica, unspecified side; K57.30 Diverticulosis of large intestine without perforation or abscess without bleeding
CPT/HCPCS: 99213

== ENCOUNTER → 2023-08-18 12:38 | Outpatient (BNVA) | payer OTHER, SELFPAY | PROVIDERS: PCP Internal Medicine Geriatric Medicine; Visit Provider Physician Assistant | DX: K76.0 Fatty (change of) liver, not elsewhere classified (principal); K59.09 Other constipation; K57.30 Diverticulosis of large intestine without perforation or abscess without bleeding; M54.30 Sciatica, unspecified side; Z86.010 Personal history of colon polyps | CPT/HCPCS: 99212 ==

== ENCOUNTER 2023-09-25 05:51 | Emergency (ER) | payer OTHER, SELFPAY ==
--- NOTE | ~2023-09-25 | US_ITS ---
EXAMINATION: US VENOUS ULTRASOUND WITH DOPPLER LOWER EXTREMITY, LEFT CLINICAL INFORMATION: Left lower extremity redness. COMPARISON: 06/10/2021 TECHNIQUE: Ultrasound of the deep veins is performed from the hip to the calf with compression sonography and color and pulse Doppler assessment. Spectral analysis with color-flow imaging is performed. FINDINGS: The common femoral vein is compressible and exhibits a normal phasic waveform; this suggests that the iliac veins are widely patent above. Within the proximal thigh, the visualized profunda femoris vein is normal. The examined greater saphenous vein and saphenofemoral junction are normal. Superficial femoral vein is patent in the proximal, mid and distal thigh. Popliteal vein is normal to the level of the trifurcation. On compression livingston scale and color Doppler images, the visualized posterior tibial and peroneal veins of the calf are patent. No evidence of Son's cyst. There is edema within subcutaneous tissues of the calf. US/US venous duplex LE IMPRESSION: * No evidence of deep vein thrombosis in the left lower extremity. * There is edema within subcutaneous tissues of the calf. No focal fluid collection is detected.
[2023-09-25 06:00] VITALS: BP 174/53; PULSE 72; RESP 18; TEMP 36.4; O2SAT 97; BMI 35.8
[2023-09-25 06:11] LABS: MANUAL DIFF FLAG NO
[2023-09-25 06:16] LABS: Basophils Absolute Auto 0.1 X10*3/uL (0.0-0.2); Basophils Percent Auto 0.6 % (0-2); Eosinophils Absolute Auto 0.2 X10*3/uL (0.0-0.4); Eosinophils Percent Auto 2.1 % (0-4); Hematocrit 42.6 % (42.0-52.0); Hemoglobin 14.5 g/dl (14.0-18.0); Imm Gran Abs Auto 0.08 X10*3/uL (0.00-0.03); Imm Gran Pct Auto 0.8 % (0.0-0.4); Lymphocytes Absolute Auto 2.4 X10*3/uL (1.2-4.9); Lymphocytes Percent Auto 24.6 % (20-40); Mean Corpuscular Hemoglobin 29.8 pg (27.0-33.0); Mean Corpuscular Volume 87.5 fL (80.0-98.0); Monocytes Absolute Auto 0.9 X10*3/uL (0.1-1.2); Monocytes Percent Auto 9.3 % (2-11); Neutrophils Percent Auto 62.6 % (45-73); Platelet Count 294 X10*3/uL (160-400); Red Blood Count 4.87 X10*6/uL (4.60-5.80); White Blood Count 9.6 X10*3/uL (4.8-10.8)
[2023-09-25 06:44] LABS: Alanine Aminotransferase 47 U/L (0-40); Albumin Level 3.8 g/dL (3.5-5.0); Alkaline Phosphatase 66 U/L (39-117); Anion Gap 14 (12-20); Aspartate Amino Transferase 27 U/L (5-37); Bilirubin Total 0.3 mg/dL (0.0-1.0); Blood Urea Nitrogen 21 mg/dL (9-16); Calcium 9.5 mg/dL (8.4-10.2); Carbon Dioxide 29 mmol/L (22-29); Chloride 102 mmol/L (96-108); Creatinine Clr Calc Pharmacy 71.6; Estimated Glomerular Filt Rate > 60; Glucose Random 160 mg/dL (60-115); Potassium 3.7 mmol/L (3.3-5.1); Sodium 141 mmol/L (135-145); Total Protein 7.6 g/dL (6.5-8.0)
--- NOTE | 2023-09-25 07:15 | ED_ITS ---
HPI - General Adult General Chief complaint: General Medical Stated complaint: left leg swollen Time Seen by Provider: 09/25/23 07:08 Source: patient Mode of arrival: ambulatory Limitations: no limitations History of Present Illness HPI narrative: 73 year old female hx of hyperlipidemia, hypertension, nonalcoholic fatty liver disease, type 2 diabetes presenting with left lower extremity redness, swelling and burning pain. Ongoing for the past 5 days worsening. Patient reports he came in because he was worried and he is a diabetic. No trauma to affected extremity. Has diabetic neuropathy at baseline unchanged intermittent numbness. Denies fevers, chills, chest pain, shortness of breath, nausea, vomiting, KENNEY, vision changes, dizziness. Related Data Home Medications ?Medication ?Instructions ?Recorded ?Confirmed alcohol swabs 1 pad topical PRN 05/07/20 12/08/22 amlodipine 5 mg tablet 5 mg PO QAM 05/07/20 02/10/23 aspirin 81 mg tablet,delayed 81 mg PO DAILY 05/07/20 02/10/23 release blood sugar diagnostic #10 ea 05/07/20 12/08/22 chlorthalidone 50 mg tablet 50 mg PO QAM 05/07/20 02/10/23 gabapentin 100 mg capsule 100 mg PO BEDTIME 05/07/20 02/10/23 insulin syringe-needle U-100 1 mL #10 ea 05/07/20 12/08/22 29 gauge x 1/2 cetirizine 10 mg tablet 10 mg PO DAILY PRN allergy symptoms 08/21/20 02/10/23 sennosides 8.6 mg tablet (senna) 17.2 mg PO DAILY PRN constipation 08/12/21 02/10/23 latanoprost 0.005 % eye drops 1 drp ophthalmic (eye) BEDTIME 03/18/22 02/10/23 bisacodyl 5 mg tablet,delayed 10 mg PO DAILY 04/06/23 release carbamide peroxide 6.5 % ear drops 5 drp otic (ear) right BID 04/06/23 (Ear Drops (carbamide peroxide)) diclofenac sodium 1 % topical gel 2 g topical DAILY 04/06/23 lactulose 10 gram/15 mL oral 15 ml PO DAILY 04/06/23 solution lancets #100 ea 04/06/23 lancets 30 gauge (OneTouch #100 ea 04/06/23 UltraSoft 2 Lancet) meloxicam 15 mg tablet 15 mg PO DAILY 04/06/23 polyethylene glycol 3350 17 g PO DIRECTED 04/06/23 gram/dose oral powder spironolactone 25 mg tablet 25 mg PO QAM 04/06/23 tamsulosin 0.4 mg capsule 0.8 mg PO BEDTIME 04/06/23 verapamil 120 mg tablet,extended 120 mg PO QAM 04/06/23 release celecoxib 100 mg capsule 100 mg PO BID 04/07/23 pravastatin 40 mg tablet 40 mg PO BEDTIME 08/18/23 Previous Rx's ?Medication ?Instructions ?Recorded pen needle, diabetic 32 gauge x 1 ea miscellaneous QID 30 days 08/11/20 (Pentips) #100 ea ibuprofen 800 mg tablet 800 mg PO TID #30 tabs 11/18/21 bisacodyl 10 mg rectal suppository 10 mg MI DAILY #12 ea 12/26/21 (Dulcolax (bisacodyl)) docusate sodium 100 mg capsule 200 mg (2 x 100 mg) PO BEDTIME 30 11/04/22 (Colace) days #60 caps methylcellulose (laxative) 500 mg 500 mg PO BID #60 tabs 11/04/22 tablet (Fiber Laxative (methylcellulose)) cholecalciferol (vitamin D3) 50 50 mcg PO DAILY 30 days #30 caps 12/10/22 mcg (2,000 unit) capsule flash glucose scanning reader #1 ea 04/14/23 (FreeStyle Willy 2 [place]) flash glucose sensor (FreeStyle #2 ea 04/14/23 Willy 2 Sensor kit) canagliflozin 300 mg tablet 300 mg PO QAM #30 tabs 04/21/23 (Invokana) metformin 1,000 mg tablet 1,000 mg PO BID #60 tabs 04/21/23 insulin glargine U-300 conc 300 80 unit (0.2667 mL) subcut BEDTIME 05/24/23 unit/mL (3 mL) subcutaneous pen #6 mL (Toujeo Max U-300 SoloStar) liraglutide 0.6 mg/0.1 mL (18 mg/3 1.8 mg (0.3 mL) subcut DAILY #9 mL 07/08/23 mL) subcutaneous pen injector (Tragara 3-Beto) pen needle, diabetic 32 gauge x #100 ea 07/18/2332 (UltiCare Pen Needle) insulin lispro 100 unit/mL See Rx Instructions subcut 07/19/23 subcutaneous pen (Humalog KwikPen .COMPLEX #30 mL (U-100) Insulin) polyethylene glycol 3350 17 17 g PO DAILY 30 days #510 grams 07/20/23 gram/dose oral powder (Miralax) cephalexin 500 mg tablet 500 mg PO Q6H 10 days #40 tabs 09/25/23 doxycycline hyclate 100 mg capsule 100 mg PO BID 10 days #20 caps 09/25/23 Allergies Allergy/AdvReac Type Severity Reaction Status Date / Time lisinopril [LISINOPRIL] Allergy Severe ANGIOEDEMA Verified 09/25/23 06:00 prednisone [PREDNISONE] Allergy Mild ITCHY Verified 09/25/23 06:00 Review of Systems 2 Review of Systems: Yes all other systems are reviewed and are negative PMFSH Past Medical History Attestation statement: The following information was validated with the patient. Source: old records reviewed and nursing notes reviewed Medical History NAFLD (nonalcoholic fatty liver disease) Transaminitis Basal cell carcinoma (BCC) Skin lesion of left lower extremity Heart murmur Familial hypocalciuric hypercalcemia Multinodular thyroid Vitamin D deficiency HLD (hyperlipidemia) HTN (hypertension) T2DM (type 2 diabetes mellitus) Surgical History Hx of melanoma excision Hx of esophagogastroduodenoscopy Hx of colonoscopy Hx of appendectomy Hx of cholecystectomy Family History Family History Father CVD (cardiovascular disease) Diabetes Brother CVD (cardiovascular disease) Diabetes FH: heart attack Social History Social History Household Members: Family Alcohol intake: never Patient Tobacco Use Status: Never used Tobacco Advance Directives: Yes Advance Directives Information Provided: No Advance Directives on File: No Current occupational status: unemployed Physical Exam ED Vital Signs: Vital Signs - 24 hr 09/25/23 06:00 09/25/23 07:31 Temperature 97.5 F 97.7 F Pulse Rate 72 70 Respiratory Rate 18 14 Blood Pressure 174/53 H 156/74 H Pulse Oximetry 97 94 Oxygen Delivery Method Room Air Room Air BMI result Body Mass Index 35.8 vss Appearance: Alert.? Oriented X3.? No acute distress.? Head: Normocephalic, atraumatic, no step-offs or deformities Eyes: Pupils equal, round and reactive to light.? Neck: Normal inspection.? Neck supple.? CVS: Normal heart rate and rhythm.? Pulses normal.? Respiratory: No respiratory distress.? Breath sounds normal.? Abdomen: Soft and nontender.? Skin: Skin warm and dry.? Normal skin color.? Normal skin turgor.? Extremities: + 1+ pitting edema from the L knee down. W/ erythema and warmth to the L anterior [place] down to the foot. Normal. 1+ pitting edema from knee down to RLE. ? No calf ttp. 5/5 strength to bilateral upper and lower extremities. 2+ DP,AT,PT equal and b/l. Normal sensation distally. Neuro: Oriented X 3.? No motor deficit.? No sensory deficit. CN 2-12 intact Course Reevaluation(s) Reevaluation #1: CBC unremarkable. Chemistry no acute findings requiring intervention. Chronically elevated BUN and creatinine. Not deviating from baseline. Ultrasound of lower extremity left with no evidence of DVT in the left lower extremity edema within the subcutaneous tissue of the calf. No focal fluid collection. This is likely cellulitis. Patient to be discharged home with doxycycline and Keflex Time: 08:37 Reevaluation #2: Educated patient on diagnosis and treatment plan, answered all question, patient verbalizes understanding. At this time patient will be discharged home, advised to return with new or worsening symptoms. Educated on worrisome signs and symptoms and when to return. At this time I feel comfortable discharge home. Time: 08:41 Medical Decision Making Medical Decision Making [facility] Narrative: 0702 73 year old female presents w/ LLE redness, swelling and burning pain + 1+ pitting edema from the L knee down. W/ erythema and warmth to the L anterior [place] down to the foot. Normal. 1+ pitting edema from knee down to RLE. ? No calf ttp. 5/5 strength to bilateral upper and lower extremities. 2+ DP,AT,PT equal and b/l. Normal sensation distally. HX and pe concerning for cellulitis vs PAD vs venous insuficiency vs LLE DVT. Unlikely erysipelas, nv compromise, threat to limb, fx/dislocation, acute threat to limb, necrotizing infectionor gangrene. Unlikely CHF Plan- labs, dvt study Differential Diagnosis Differential Diagnoses: The differential diagnosis associated with the presentation includes HX and pe concerning for cellulitis vs PAD vs venous insuficiency vs LLE DVT. Unlikely erysipelas, nv compromise, threat to limb, fx/dislocation, acute threat to limb, necrotizing infectionor gangrene. Unlikely CHF Admission/Observation Consideration of admission/observation: Escalation of care including admission/observation considered Lab Data MDM Lab Attestation statement: I reviewed the patient's lab results. 09/25/23 06:06 09/25/23 06:06 Labs: Lab Results 09/25/23 Range/Units 06:06 WBC 9.6 (4.8-10.8) X10*3/uL RBC 4.87 (4.60-5.80) X10*6/uL Hgb 14.5 (14.0-18.0) g/dl Hct 42.6 (42.0-52.0) % MCV 87.5 (80.0-98.0) fL MCH 29.8 (27.0-33.0) pg MCHC 34.0 (31.0-36.0) g/dl RDW 13.0 (11.0-16.0) % Plt Count 294 (160-400) X10*3/uL MPV 10.0 (9.4-12.4) fL Immature Gran % (Auto) 0.8 H (0.0-0.4) % Neut % (Auto) 62.6 (45-73) % Lymph % (Auto) 24.6 (20-40) % [place] % (Auto) 9.3 (2-11) % Eos % (Auto) 2.1 (0-4) % Baso % (Auto) 0.6 (0-2) % Lymph # (Auto) 2.4 (1.2-4.9) X10*3/uL [place] # (Auto) 0.9 (0.1-1.2) X10*3/uL Eos # (Auto) 0.2 (0.0-0.4) X10*3/uL Baso # (Auto) 0.1 (0.0-0.2) X10*3/uL Abs Immat Gran (auto) 0.08 H (0.00-0.03) X10*3/uL Absolute Neuts (auto) 6.0 (2.0-8.3) x10*3/uL Absolute Nucleated RBC 0.000 (0.0-0.012) X10*3/uL Nucleated RBC % (auto) 0.0 (0.0-0.2) /100WBC Sodium 141 (135-145) mmol/L Potassium 3.7 (3.3-5.1) mmol/L Chloride 102 (96-108) mmol/L Carbon Dioxide 29 (22-29) mmol/L Anion Gap 14 (12-20) BUN 21 H (9-16) mg/dL Creatinine 1.02 (0.5-1.4) mg/dL Estim Creat Clear Calc 71.6 Estimated GFR > 60 Random Glucose 160 H (60-115) mg/dL Calcium 9.5 D (8.4-10.2) mg/dL Total Bilirubin 0.3 (0.0-1.0) mg/dL AST 27 (5-37) U/L ALT 47 H (0-40) U/L Alkaline Phosphatase 66 (39-117) U/L B-Natriuretic Peptide 29 (<100) pg/mL Total Protein 7.6 (6.5-8.0) g/dL Albumin 3.8 (3.5-5.0) g/dL Independent Interpretation I performed an independent interpretation of an: Ultrasound Radiology Impression Discussion of test interpretation with radiology: I have reviewed the radiologist's reading. External Record Review External record reviewed: Inpatient record, Office record and Outpatient record Chronic Conditions Patient?s care impacted by: Hypertension and Other (hyperlipidemia, hypertension, nonalcoholic fatty liver disease, type 2 diabetes ) Critical Care Time Critical Care Time Critical Care Time: No Discharge Plan Discharge Clinical Impression: Cellulitis Patient Disposition: Home, Self-Care Instructions: Cellulitis (ED) Additional Instructions: Take your medications as prescribed. If you were prescribed antibiotics today, it is important that you take your medication to their entirety, do not skip any doses, do not finish them early. Follow-up with your primary care provider this week. Return to the emergency department with new or worsening symptoms. Such as fevers, chills, chest pain, shortness of breath, nausea, vomiting, dizziness, headache, vision changes, lethargy In case of emergency call 911 US/US venous duplex LE LT IMPRESSION: * No evidence of deep vein thrombosis in the left lower extremity. * There is edema within subcutaneous tissues of the calf. No focal fluid collection is detected. Prescriptions: New doxycycline hyclate 100 mg capsule 100 mg PO BID 10 Days Qty: 20 0RF cephalexin 500 mg tablet 500 mg PO Q6H 10 Days Qty: 40 0RF No Action pen needle, diabetic [Pentips] 32 gauge x 5/32 needle 1 ea miscellaneous QID 30 Days Qty: 100 11RF cholecalciferol (vitamin D3) 50 mcg (2,000 unit) capsule 50 mcg PO DAILY 30 Days Qty: 30 11RF Invokana 300 mg tablet 300 mg PO QAM Qty: 30 3RF metformin 1,000 mg tablet 1,000 mg PO BID Qty: 60 3RF Toujeo Max U-300 SoloStar 300 unit/mL (3 mL) insulin pen 80 unit subcut BEDTIME Qty: 6 2RF Victoza 3-Beto 0.6 mg/0.1 mL (18 mg/3 mL) pen injector 1.8 mg subcut DAILY Qty: 9 3RF (DME) pen needle, diabetic [UltiCare Pen Needle] 32 gauge x 5/32 needle See Rx Instructions .ROUTE .COMPLEX Qty: 100 11RF Dose Instruction: USE DIRECTED FOUR TIMES DAILY Rx Instructions: USE DIRECTED FOUR TIMES DAILY insulin lispro [Humalog KwikPen Insulin] 100 unit/mL insulin pen See Rx Instructions subcut .COMPLEX Qty: 30 3RF Rx Instructions: Inject 40 units before breakfast, 35 units before lunch and 35 units before dinner subcutaneously; ibuprofen 800 mg tablet 800 mg PO TID Qty: 30 0RF bisacodyl [Dulcolax (bisacodyl)] 10 mg suppository 10 mg MI DAILY Qty: 12 0RF amlodipine 5 mg tablet 5 mg PO QAM gabapentin 100 mg capsule 100 mg PO BEDTIME aspirin 81 mg tablet,delayed release (DR/EC) 81 mg PO DAILY (DME) insulin syringe-needle U-100 1 mL 29 gauge x 1/2 syringe See Rx Instructions .ROUTE QID Qty: 10 Rx Instructions: As directed alcohol swabs Pads, Medicated 1 pad topical PRN chlorthalidone 50 mg tablet 50 mg PO QAM (DME) OneTouch Ultra Blue Test Strip Strip See Rx Instructions Not Applicable TID Qty: 10 Rx Instructions: As directed cetirizine 10 mg tablet 10 mg PO DAILY PRN (Reason: allergy symptoms) sennosides [senna] 8.6 mg tablet 17.2 mg PO DAILY PRN (Reason: constipation) docusate sodium [Colace] 100 mg capsule 200 mg PO BEDTIME 30 Days Qty: 60 5RF Fiber Laxative(methylcellulos) 500 mg tablet 500 mg PO BID Qty: 60 5RF latanoprost 0.005 % drops 1 drp ophthalmic (eye) BEDTIME (DME) FreeStyle Willy 2 Sensor Kit See Rx Instructions .Route Qty: 2 4RF Rx Instructions: As directed change every 14 days (DME) FreeStyle Willy 2 [place] Misc See Rx Instructions .Route Qty: 1 0RF Rx Instructions: As directed verapamil 120 mg tablet extended release 120 mg PO QAM spironolactone 25 mg tablet 25 mg PO QAM tamsulosin 0.4 mg capsule 0.8 mg PO BEDTIME (DME) lancets [OneTouch UltraSoft 2 Lancet] 30 gauge misc See Rx Instructions .ROUTE TID Qty: 100 Rx Instructions: As directed lactulose 10 gram/15 mL solution 15 ml PO DAILY meloxicam 15 mg tablet 15 mg PO DAILY polyethylene glycol 3350 17 gram/dose powder PO DIRECTED bisacodyl 5 mg tablet,delayed release (DR/EC) 10 mg PO DAILY (DME) lancets Misc See Rx Instructions .ROUTE TID Qty: 100 Rx Instructions: As directed Ear Drops (carbamide peroxide) 6.5 % drops 5 drp otic (ear) right BID diclofenac sodium 1 % gel 2 g topical DAILY celecoxib 100 mg capsule 100 mg PO BID polyethylene glycol 3350 [Miralax] 17 gram/dose powder 17 g PO DAILY 30 Days Qty: 510 6RF pravastatin 40 mg tablet 40 mg PO BEDTIME Referrals: Name,MD Aneesh [Primary Care Provider] - 1 day Print Language: Romansh
[2023-09-25 07:31] VITALS: BP 156/74; PULSE 70; RESP 14; TEMP 36.5; O2SAT 94
[2023-09-25 09:02] LABS: B Type Natriuretic Peptide 29 pg/mL (<100)
[2023-09-25 09:35] VITALS: BP 156/74; PULSE 70; RESP 14; TEMP 36.5; O2SAT 94
== END 2023-09-25 09:37 | disposition home or self-care (01) ==
PROVIDERS: Internal Medicine; Physician Assistant; Emergency Provider Student in an Organized Health Care Education/Training Program; PCP Internal Medicine Geriatric Medicine
DX: L03.116 Cellulitis of left lower limb (principal); I10 Essential (primary) hypertension; E11.9 Type 2 diabetes mellitus without complications; Z88.8 Allergy status to other drugs, medicaments and biological substances
CPT/HCPCS: 36415; 80053; 83880; 85025; 93971; 99283; 99284

== ENCOUNTER 2023-10-24 05:57 | Inpatient (IN) | payer OTHER, SELFPAY ==
[2023-10-24] VITALS (7 sets, daily range): BP systolic 146–188; BP diastolic 56–78; PULSE 67–75; RESP 15–18; TEMP 36.4–37.1; O2SAT 95–99; BMI 35.2; BMI 35.4
--- NOTE | ~2023-10-24 | US_ITS ---
EXAMINATION: US VENOUS ULTRASOUND WITH DOPPLER LOWER EXTREMITY, LEFT CLINICAL INFORMATION: Left lower extremity edema COMPARISON: DVT study left lower extremity 09/25/2023 TECHNIQUE: Ultrasound of the deep veins is performed from the hip to the calf with compression sonography and color and pulse Doppler assessment. Spectral analysis with color-flow imaging is performed. FINDINGS: There is normal venous compression and respiratory variation and augmented flow. The visualized common femoral vein, superficial femoral vein, profunda femoral vein and popliteal vein show no evidence of deep venous thrombosis. Tibial vessels are poorly seen secondary to marked edema, but some flow is identified. There is no significant popliteal fossa cyst. If the patient's symptoms persist, followup ultrasound in 5 days 7 days might be of value to exclude proximal propagation from a non-visualized calf vein. US/US venous duplex LE IMPRESSION: No DVT demonstrated in the left lower extremity.
[2023-10-24 07:07] LABS: MANUAL DIFF FLAG NO
[2023-10-24 07:12] LABS: Basophils Absolute Auto 0.1 X10*3/uL (0.0-0.2); Basophils Percent Auto 0.9 % (0-2); Eosinophils Absolute Auto 0.2 X10*3/uL (0.0-0.4); Eosinophils Percent Auto 2.6 % (0-4); Hematocrit 44.6 % (42.0-52.0); Imm Gran Abs Auto 0.06 X10*3/uL (0.00-0.03); Imm Gran Pct Auto 0.7 % (0.0-0.4); Lymphocytes Percent Auto 22.5 % (20-40); Mean Corpuscular HGB Conc 33.6 g/dl (31.0-36.0); Mean Corpuscular Hemoglobin 29.4 pg (27.0-33.0); Mean Corpuscular Volume 87.5 fL (80.0-98.0); Monocytes Absolute Auto 0.8 X10*3/uL (0.1-1.2); Neutrophils Absolute Auto 5.6 x10*3/uL (2.0-8.3); Neutrophils Percent Auto 64.3 % (45-73); Platelet Count 285 X10*3/uL (160-400); Red Cell Distribution Width 12.7 % (11.0-16.0); White Blood Count 8.7 X10*3/uL (4.8-10.8)
[2023-10-24 07:31] LABS: Alanine Aminotransferase 44 U/L (0-40); Albumin Level 3.9 g/dL (3.5-5.0); Alkaline Phosphatase 79 U/L (39-117); Anion Gap 15 (12-20); Aspartate Amino Transferase 28 U/L (5-37); Bilirubin Total 0.3 mg/dL (0.0-1.0); Blood Urea Nitrogen 21 mg/dL (9-16); Carbon Dioxide 28 mmol/L (22-29); Chloride 100 mmol/L (96-108); Creatinine Clr Calc Pharmacy 59.8; Estimated Glomerular Filt Rate 59; Glucose Random 265 mg/dL (60-115); Potassium 4.1 mmol/L (3.3-5.1); Sodium 139 mmol/L (135-145); Total Protein 7.6 g/dL (6.5-8.0)
--- NOTE | 2023-10-24 09:23 | ED_ITS ---
HPI - General Adult General Chief complaint: Extremity Injury, Lower Stated complaint: left leg is red . infection? Time Seen by Provider: 10/24/23 09:09 Source: patient Mode of arrival: ambulatory Limitations: no limitations History of Present Illness HPI narrative: This is 73 years old male presented to the emergency department complaining of redness in the left lower extremity he has history of diabetes, he has been seen in this emergency department on September 24 he was discharged on p.o. Keflex went to see the PCP he was given another course of keflex, however is not getting any better he denies any fever or chills. He has history of diabetes. Onset (ago): week(s) (4) Location: left and lower extremity Radiation: non-radiation Severity: mild Quality: burning Pain Consistency: constant Relieving factors: none Exacerbating factors: none Related Data Home Medications ?Medication ?Instructions ?Recorded ?Confirmed alcohol swabs 1 pad topical PRN 05/07/20 12/08/22 amlodipine 5 mg tablet 5 mg PO QAM 05/07/20 02/10/23 aspirin 81 mg tablet,delayed 81 mg PO DAILY 05/07/20 02/10/23 release blood sugar diagnostic #10 ea 05/07/20 12/08/22 chlorthalidone 50 mg tablet 50 mg PO QAM 05/07/20 02/10/23 gabapentin 100 mg capsule 100 mg PO BEDTIME 05/07/20 02/10/23 insulin syringe-needle U-100 1 mL #10 ea 05/07/20 12/08/22 29 gauge x 1/2 cetirizine 10 mg tablet 10 mg PO DAILY PRN allergy symptoms 08/21/20 02/10/23 sennosides 8.6 mg tablet (senna) 17.2 mg PO DAILY PRN constipation 08/12/21 02/10/23 latanoprost 0.005 % eye drops 1 drp ophthalmic (eye) BEDTIME 03/18/22 02/10/23 bisacodyl 5 mg tablet,delayed 10 mg PO DAILY 04/06/23 release carbamide peroxide 6.5 % ear drops 5 drp otic (ear) right BID 04/06/23 (Ear Drops (carbamide peroxide)) diclofenac sodium 1 % topical gel 2 g topical DAILY 04/06/23 lactulose 10 gram/15 mL oral 15 ml PO DAILY 04/06/23 solution lancets #100 ea 04/06/23 lancets 30 gauge (OneTouch #100 ea 04/06/23 UltraSoft 2 Lancet) meloxicam 15 mg tablet 15 mg PO DAILY 04/06/23 polyethylene glycol 3350 17 g PO DIRECTED 04/06/23 gram/dose oral powder spironolactone 25 mg tablet 25 mg PO QAM 04/06/23 tamsulosin 0.4 mg capsule 0.8 mg PO BEDTIME 04/06/23 verapamil 120 mg tablet,extended 120 mg PO QAM 04/06/23 release celecoxib 100 mg capsule 100 mg PO BID 04/07/23 pravastatin 40 mg tablet 40 mg PO BEDTIME 08/18/23 Previous Rx's ?Medication ?Instructions ?Recorded pen needle, diabetic 32 gauge x 1 ea miscellaneous QID 30 days 08/11/20 (Pentips) #100 ea ibuprofen 800 mg tablet 800 mg PO TID #30 tabs 11/18/21 bisacodyl 10 mg rectal suppository 10 mg VT DAILY #12 ea 12/26/21 (Dulcolax (bisacodyl)) docusate sodium 100 mg capsule 200 mg (2 x 100 mg) PO BEDTIME 30 11/04/22 (Colace) days #60 caps methylcellulose (laxative) 500 mg 500 mg PO BID #60 tabs 11/04/22 tablet (Fiber Laxative (methylcellulose)) cholecalciferol (vitamin D3) 50 50 mcg PO DAILY 30 days #30 caps 12/10/22 mcg (2,000 unit) capsule flash glucose scanning reader #1 ea 04/14/23 (FreeStyle Willy 2 [place]) flash glucose sensor (FreeStyle #2 ea 04/14/23 Willy 2 Sensor kit) canagliflozin 300 mg tablet 300 mg PO QAM #30 tabs 04/21/23 (Invokana) metformin 1,000 mg tablet 1,000 mg PO BID #60 tabs 04/21/23 insulin glargine U-300 conc 300 80 unit (0.2667 mL) subcut BEDTIME 05/24/23 unit/mL (3 mL) subcutaneous pen #6 mL (Toujeo Max U-300 SoloStar) liraglutide 0.6 mg/0.1 mL (18 mg/3 1.8 mg (0.3 mL) subcut DAILY #9 mL 07/08/23 mL) subcutaneous pen injector (Victoza 3-Beto) pen needle, diabetic 32 gauge x #100 ea 07/18/23 (UltiCare Pen Needle) insulin lispro 100 unit/mL See Rx Instructions subcut 07/19/23 subcutaneous pen (Humalog KwikPen .COMPLEX #30 mL (U-100) Insulin) polyethylene glycol 3350 17 17 g PO DAILY 30 days #510 grams 07/20/23 gram/dose oral powder (Miralax) cephalexin 500 mg tablet 500 mg PO Q6H 10 days #40 tabs 09/25/23 doxycycline hyclate 100 mg capsule 100 mg PO BID 10 days #20 caps 09/25/23 Allergies Allergy/AdvReac Type Severity Reaction Status Date / Time lisinopril [LISINOPRIL] Allergy Severe ANGIOEDEMA Verified 10/24/23 06:29 prednisone [PREDNISONE] Allergy Mild ITCHY Verified 10/24/23 06:29 Review of Systems 2 Constitutional: Constitutional: Reports no additional constitutional complaints ENT: Reports system reviewed and no additional complaints, except as documented Cardiovascular: Cardiovascular: Reports no additional cardiovascular complaints Musculoskeletal: Musculoskeletal: Reports no additional musculoskeletal complaints [facility] Past Medical History Attestation statement: The following information was validated with the patient. Medical History NAFLD (nonalcoholic fatty liver disease) Transaminitis Basal cell carcinoma (BCC) Skin lesion of left lower extremity Heart murmur Familial hypocalciuric hypercalcemia Multinodular thyroid Vitamin D deficiency HLD (hyperlipidemia) HTN (hypertension) T2DM (type 2 diabetes mellitus) Surgical History Hx of melanoma excision Hx of esophagogastroduodenoscopy Hx of colonoscopy Hx of appendectomy Hx of cholecystectomy Family History Family History Father CVD (cardiovascular disease) Diabetes Brother CVD (cardiovascular disease) Diabetes FH: heart attack Social History Social History Household Members: Family Alcohol intake: never Patient Tobacco Use Status: Never used Tobacco Advance Directives: No Advance Directives Information Provided: No Do you have a plan to hurt others: No Plan Current occupational status: unemployed Physical Exam ED Vital Signs: Vital Signs - 24 hr 10/24/23 06:22 Temperature 98.7 F Pulse Rate 75 Respiratory Rate 16 Blood Pressure 166/66 H Pulse Oximetry 95 Oxygen Delivery Method Room Air BMI result Body Mass Index 35.2 He looks well is not toxic-appearing Const General: cooperative Nutritional Appearance: well nourished Orientation/consciousness: patient oriented x3 Limitations: no limitations HENMT Head: Yes normal to inspection General nose exam: Normal external nose present Face and sinus: Yes normal facial exam Mouth: Normal oral and palatal mucosa present Neck Neck: Yes normal visual inspection and Yes full ROM Chest Chest palpation & inspection: normal inspection of the chest Resp Effort & Inspection: normal respiratory effort Auscultation: clear to auscultation bilaterally Cardio Jugular venous distension: no JVD Rate: regular rate Rhythm: regular rhythm GI Inspection: Yes normal to inspection Palpation (GI): Soft to palpation, not firm and nontender Skin Other: Examination of lower extremity shows redness in the left leg anterior aspect, I was able to feel the pulses by Doppler very faint but present Neuro General: patient oriented x3 Medications Administered Generic Name Dose Route Start Last Admin Trade Name Freq PRN Reason Stop Dose Admin Enoxaparin Sodium 40 mg 10/24/23 12:45 10/24/23 13:02 Enoxaparin Sodium 40 Mg/0.4 Ml Syringe SUBCUT 40 mg Q24H STEWART Administration Cefazolin Sodium/Dextrose 2 gm in 50 mls @ 100 mls/hr 10/24/23 12:45 10/24/23 15:28 Ancef IV Infused Q8H STEWART Infusion Discontinued Medications Generic Name Dose Route Start Last Admin Trade Name Freq PRN Reason Stop Dose Admin Vancomycin HCl 2,000 mg in 500 mls @ 250 mls/hr 10/24/23 09:30 10/24/23 14:37 Vancomycin/Ns IV 10/24/23 11:29 Infused ONCE ONE Infusion Medical Decision Making Medical Decision Making [facility] Narrative: Patient presented with a cellulitis in the left lower extremity, will get labs ultrasound will reassess Differential Diagnosis Differential Diagnoses: The differential diagnosis associated with the presentation includes Cellulitis/DVT/dermatitis Consult Healthcare Provider Management of the patient was discussed with: Hospitalist Lab Data [facility] Lab Attestation statement: I reviewed the patient's lab results. 10/24/23 07:03 10/24/23 07:03 Labs: Lab Results 10/24/23 10/24/23 Range/Units 07:03 10:48 WBC 8.7 (4.8-10.8) X10*3/uL RBC 5.10 (4.60-5.80) X10*6/uL Hgb 15.0 (14.0-18.0) g/dl Hct 44.6 (42.0-52.0) % MCV 87.5 (80.0-98.0) fL MCH 29.4 (27.0-33.0) pg MCHC 33.6 (31.0-36.0) g/dl RDW 12.7 (11.0-16.0) % Plt Count 285 (160-400) X10*3/uL MPV 10.0 (9.4-12.4) fL Immature Gran % (Auto) 0.7 H (0.0-0.4) % Neut % (Auto) 64.3 (45-73) % Lymph % (Auto) 22.5 (20-40) % [place] % (Auto) 9.0 (2-11) % Eos % (Auto) 2.6 (0-4) % Baso % (Auto) 0.9 (0-2) % Lymph # (Auto) 2.0 (1.2-4.9) X10*3/uL [place] # (Auto) 0.8 (0.1-1.2) X10*3/uL Eos # (Auto) 0.2 (0.0-0.4) X10*3/uL Baso # (Auto) 0.1 (0.0-0.2) X10*3/uL Abs Immat Gran (auto) 0.06 H (0.00-0.03) X10*3/uL Absolute Neuts (auto) 5.6 (2.0-8.3) x10*3/uL Absolute Nucleated RBC 0.000 (0.0-0.012) X10*3/uL Nucleated RBC % (auto) 0.0 (0.0-0.2) /100WBC ESR 20 H (0-15) MM/HR Sodium 139 (135-145) mmol/L Potassium 4.1 (3.3-5.1) mmol/L Chloride 100 (96-108) mmol/L Carbon Dioxide 28 (22-29) mmol/L Anion Gap 15 (12-20) BUN 21 H (9-16) mg/dL Creatinine 1.21 (0.5-1.4) mg/dL Estim Creat Clear Calc 59.8 Estimated GFR 59 Random Glucose 265 H (60-115) mg/dL Estimat Average Glucose 197 mg/dL Hemoglobin A1c % 8.5 H (<6.0) % Calcium 10.0 (8.4-10.2) mg/dL Total Bilirubin 0.3 (0.0-1.0) mg/dL AST 28 (5-37) U/L ALT 44 H (0-40) U/L Alkaline Phosphatase 79 (39-117) U/L C-Reactive Protein 1.28 H (< or = 0.50) mg/dL Total Protein 7.6 (6.5-8.0) g/dL Albumin 3.9 (3.5-5.0) g/dL Independent Interpretation I performed an independent interpretation of an: Ultrasound Radiology Impression Discussion of test interpretation with radiology: I have reviewed the radiologist's reading. Radiologist Impression: TECHNIQUE: Ultrasound of the deep veins is performed from the hip to the calf with compression sonography and color and pulse Doppler assessment. Spectral analysis with color-flow imaging is performed. FINDINGS: There is normal venous compression and respiratory variation and augmented flow. The visualized common femoral vein, superficial femoral vein, profunda femoral vein and popliteal vein show no evidence of deep venous thrombosis. Tibial vessels are poorly seen secondary to marked edema, but some flow is identified. There is no significant popliteal fossa cyst. If the patient's symptoms persist, followup ultrasound in 5 days 7 days might be of value to exclude proximal propagation from a non-visualized calf vein. US/US venous duplex LE LT IMPRESSION: No DVT demonstrated in the left lower extremity. Dictated By: Jose Curtis MD Signed By: <Electronically signed by Jose Curtis MD in OV> 10/24/23 1043 Discharge Plan Discharge Clinical Impression: Cellulitis of left lower leg Patient Disposition: Admitted As Inpatient
[2023-10-24 11:11] LABS: C Reactive Protein 1.28 mg/dL (< or = 0.50)
[2023-10-24] MEDS: vancomycin/NS 2,000 MG/500 ML PLAST..BAG 250 MG IV (11:15)
[2023-10-24 11:47] LABS: Erythrocyte Sedimentation Rate 20 MM/HR (0-15)
[2023-10-24 12:16] LABS: Estimated Average Glucose 197 mg/dL; Hemoglobin A1c % 8.5 % (<6.0)
--- NOTE | 2023-10-24 12:34 | PM.IMHP ---
History of Present Illness Date of Service: 10/24/23 Attending physician on admission: [facility] Chief Complaint: LLE redness/swelling 73-year-old male with history of CKD stage 3, chronic low back pain, NAFLD, basal cell carcinoma, aortic stenosis, PID, hypertension, hyperlipidemia, uncontrolled insulin-dependent type 2 diabetes presented to the ED earlier today for evaluation of redness and swelling over the left lower leg. Reports onset of left lower leg erythema about 5 weeks ago. He has since been treated with 3 different rounds of Keflex and doxycycline without improvement. About 3 days ago developed some mild swelling around the area so presented for further evaluation. Denies any fevers, chills, purulent drainage. He is able to ambulate without difficulty. In the ED, vital signs stable. No leukocytosis. Renal function baseline, electrolyte levels normal. Glucose 265. Hemoglobin A1c 8.5%. CRP 1.28, ESR 20. Venous duplex of the left lower extremity negative for DVT. In the ED, treated with IV vancomycin. Review of Systems Review of Systems: General: No fevers, malaise, unintentional weight loss HEENT: No blurred vision, diplopia. No sore throat, nasal congestion, rhinorrhea, sinus pain, ear pain Cardiovascular: No chest pain, palpitations, or leg edema Respiratory: No shortness of breath, wheezing, cough GI: No abdominal pain, nausea, vomiting, diarrhea, constipation, melena, hematochezia : No dysuria, hematuria, increased urinary frequency, decreased urinary output MSK: No myalgia, back pain Neuro: No headaches, weakness, paresthesias Skin: No rashes or lesions. +LLE swelling/erythema [facility] Medical History NAFLD (nonalcoholic fatty liver disease) Transaminitis Basal cell carcinoma (BCC) Skin lesion of left lower extremity Heart murmur Familial hypocalciuric hypercalcemia Multinodular thyroid Vitamin D deficiency HLD (hyperlipidemia) HTN (hypertension) T2DM (type 2 diabetes mellitus) Family History Father CVD (cardiovascular disease) Diabetes Brother CVD (cardiovascular disease) Diabetes FH: heart attack Surgical History Hx of melanoma excision Hx of esophagogastroduodenoscopy Hx of colonoscopy Hx of appendectomy Hx of cholecystectomy Social History Household Members: Family Alcohol intake: never Patient Tobacco Use Status: Never used Tobacco Advance Directives: No Advance Directives Information Provided: No Do you have a plan to hurt others: No Plan Current occupational status: unemployed Meds Allergies Allergy/AdvReac Type Severity Reaction Status Date / Time lisinopril [LISINOPRIL] Allergy Severe ANGIOEDEMA Verified 10/24/23 06:29 prednisone [PREDNISONE] Allergy Mild ITCHY Verified 10/24/23 06:29 Active Medications: Current Medications Acetaminophen (Acetaminophen 325 Mg Tablet) 650 mg PO Q6H PRN PRN Reason: Pain, Mild (Pain Scale 1-3) Enoxaparin Sodium (Enoxaparin Sodium 40 Mg/0.4 Ml Syringe) 40 mg SUBCUT Q24H STEWART Ondansetron HCl (Ondansetron Hcl 4 Mg/2 Ml Vial) 4 mg IVPUSH Q8H PRN PRN Reason: Nausea and Vomiting Sodium Chloride (0.9 % Sodium Chloride Flush 3 Ml Syringe) 3 ml IVFLUSH QSHIFT STEWART Home Medications ?Medication ?Instructions ?Recorded ?Confirmed ?Last Taken ?Type alcohol swabs 1 pad topical PRN 05/07/20 12/08/22 Unknown History amlodipine 5 mg tablet 5 mg PO QAM 05/07/20 02/10/23 Unknown History aspirin 81 mg tablet,delayed 81 mg PO DAILY 05/07/20 02/10/23 Unknown History release blood sugar diagnostic #10 ea 05/07/20 12/08/22 Unknown History chlorthalidone 50 mg tablet 50 mg PO QAM 05/07/20 02/10/23 Unknown History gabapentin 100 mg capsule 100 mg PO BEDTIME 05/07/20 02/10/23 Unknown History insulin syringe-needle U-100 1 mL #10 ea 05/07/20 12/08/22 Unknown History 29 gauge x 1/2 cetirizine 10 mg tablet 10 mg PO DAILY PRN allergy symptoms 08/21/20 02/10/23 Unknown History sennosides 8.6 mg tablet (senna) 17.2 mg PO DAILY PRN constipation 08/12/21 02/10/23 Unknown History latanoprost 0.005 % eye drops 1 drp ophthalmic (eye) BEDTIME 03/18/22 02/10/23 Unknown History bisacodyl 5 mg tablet,delayed 10 mg PO DAILY 04/06/23 Unknown History release carbamide peroxide 6.5 % ear drops 5 drp otic (ear) right BID 04/06/23 Unknown History (Ear Drops (carbamide peroxide)) diclofenac sodium 1 % topical gel 2 g topical DAILY 04/06/23 Unknown History lactulose 10 gram/15 mL oral 15 ml PO DAILY 04/06/23 Unknown History solution lancets #100 ea 04/06/23 Unknown History lancets 30 gauge (OneTouch #100 ea 04/06/23 Unknown History UltraSoft 2 Lancet) meloxicam 15 mg tablet 15 mg PO DAILY 04/06/23 Unknown History polyethylene glycol 3350 17 g PO DIRECTED 04/06/23 Unknown History gram/dose oral powder spironolactone 25 mg tablet 25 mg PO QAM 04/06/23 Unknown History tamsulosin 0.4 mg capsule 0.8 mg PO BEDTIME 04/06/23 Unknown History verapamil 120 mg tablet,extended 120 mg PO QAM 04/06/23 Unknown History release celecoxib 100 mg capsule 100 mg PO BID 04/07/23 Unknown History pravastatin 40 mg tablet 40 mg PO BEDTIME 08/18/23 Unknown History Physical Exam Vital Signs and Narrative: Vital Signs: Last Vital Signs Temp 98.7 F 10/24/23 06:22 Pulse 75 10/24/23 06:22 Resp 16 10/24/23 06:22 BP 166/66 H 10/24/23 06:22 Pulse Ox 95 10/24/23 06:22 O2 Del Method Room Air 10/24/23 06:22 BMI result Body Mass Index 35.2 Constitutional - Awake and Alert, No apparent distress Eyes - PERRLA, EOMI Cardiovascular - S1S2, RRR, No edema Respiratory - Normal lung expansion, Normal respiratory effort, No respiratory distress, CTA bilaterally Gastrointestinal - NT / ND; +BS; No rebound or guarding Extremities - no calf tenderness bilaterally Skin - Warm/Dry. dusky erythema distal 2/3 left lower leg without erythema or purulent drainage and slight swelling compared to RLE Neurological - Alert & oriented x3, 5/5 strength BUE and BLE Psychological - Appropriate affect Results Labs 10/24/23 07:03 10/24/23 07:03 Labs: Laboratory Results - last 24 hr 10/24/23 10/24/23 07:03 10:48 MCV 87.5 MCH 29.4 MCHC 33.6 RDW 12.7 Plt Count 285 MPV 10.0 Immature Gran % (Auto) 0.7 H Neut % (Auto) 64.3 Lymph % (Auto) 22.5 [place] % (Auto) 9.0 Eos % (Auto) 2.6 Baso % (Auto) 0.9 Lymph # (Auto) 2.0 [place] # (Auto) 0.8 Eos # (Auto) 0.2 Baso # (Auto) 0.1 Abs Immat Gran (auto) 0.06 H Absolute Neuts (auto) 5.6 Absolute Nucleated RBC 0.000 Nucleated RBC % (auto) 0.0 ESR 20 H Anion Gap 15 Estim Creat Clear Calc 59.8 Estimated GFR 59 Random Glucose 265 H Estimat Average Glucose 197 Hemoglobin A1c % 8.5 H Calcium 10.0 Total Bilirubin 0.3 AST 28 ALT 44 H Alkaline Phosphatase 79 C-Reactive Protein 1.28 H Total Protein 7.6 Albumin 3.9 Imaging Radiologist's Impressions: Impressions Venous Duplex 10/24/23 09:52 IMPRESSION: No DVT demonstrated in the left lower extremity. Assessment and Plan (1) Cellulitis of left lower leg: Status: Acute Plan 73-year-old male with history of CKD stage 3, chronic low back pain, NAFLD, basal cell carcinoma, aortic stenosis, PAD, hypertension, hyperlipidemia, uncontrolled insulin-dependent type 2 diabetes admitted for further management of acute cellulitis LLE in uncontrolled diabetic #Acute cellulitis LLE -failed outpt therapy. NO leukocytosis, fevers. No sepsis -CRP 1.28, ESR20 -venous duplex negative for dvt -iv cefazolin and doxy (initiated 10/23) -follow cbc, cultures #Insulin dependent type 2 diabetes with hyperglycemia -uncontrolled, hgb a1c 8.5% -dose adjusted basal insulin -poc glucose, diabetic diet -admelog on ss -hold oral antihyperglycemics/GLP1, resume on dc #Diabetic polyneuropathy -gabapentin #HTN -continue amlodipine, chlorthalidone, verapamil, spironolactone # CKD 3 -renal function baseline #PVD -asa, statin DVT prophylaxis- lovenox Full code Pt requires inpt stay at least 2 midnights for management of acute cellulitis LLE in uncontrolled type 2 diabetic having failed outpt oral abx requiring iv abx Quality Stroke Does the patient have a stroke diagnosis?: No VTE Prior VTE?: No VTE Risk Level:: Medical - moderate - high VTE Device Contraindication: Treatment Not Indicated VTE Drug Contraindication: N/A - Med Ordered
[2023-10-24] MEDS: Enoxaparin Sodium 40 MG/0.4 ML SYRINGE SUBCUT (13:02)
[2023-10-24 13:30] LABS: Glucose, Whole Blood 156 mg/dL (60-115)
[2023-10-24] MEDS: ceFAZolin Sodium/Dextrose,Iso 2 GM/50 ML PIGGYBACK IV ×2 (14:35→23:03)
[2023-10-24] MEDS: 0.9 % Sodium Chloride Flush 3 ML SYRINGE IVFLUSH ×2 (16:19→21:35)
[2023-10-24 18:41] LABS: Glucose, Whole Blood 214 mg/dL (60-115)
--- NOTE | 2023-10-24 18:43 | PHA.MEDREC ---
Pharmacy Consult ? Medication Reconciliation Pharmacy has completed the medication reconciliation. Spoke to patient and daughter Zenaida (at bedside). She brought in his med list from [facility] (packaged on 09/20/23). He said he takes Humalog 35 units three times a day (morning, 2pm and 7pm), he also takes Toujeo 80 units at bedtime. He also mentions that he takes pravastatin at bedtime for cholesterol.
[2023-10-24] MEDS: amLODIPine Besylate 5 MG TABLET PO (19:35)
[2023-10-24 20:40] LABS: Glucose, Whole Blood 188 mg/dL (60-115)
[2023-10-24] MEDS: Tamsulosin HCL 0.4 MG CAPSULE 0.8 MG PO (21:28)
[2023-10-24] MEDS: Loratadine 10 MG TABLET PO (21:28)
[2023-10-24] MEDS: Pravastatin Sodium 40 MG TABLET PO (21:28)
[2023-10-24] MEDS: Gabapentin 100 MG CAPSULE 200 MG PO (21:28)
[2023-10-24] MEDS: Doxycycline Hyclate 100 MG in 0.9 % Sodium Chloride 250 ML 166.67 MG IV (21:30)
[2023-10-24] MEDS: Insulin Glargine,Hum.rec.anlog 100 UNIT/ML 10 ML VIAL 48 UNIT SUBCUT (21:32)
[2023-10-24] MEDS: Insulin Lispro 100 UNIT/ML 3 ML VIAL SUBCUT (21:32)
[2023-10-25 03:39] VITALS: BP 156/75; PULSE 67; RESP 16; TEMP 36.1; O2SAT 99
[2023-10-25] MEDS: ceFAZolin Sodium/Dextrose,Iso 2 GM/50 ML PIGGYBACK IV ×3 (05:19→21:43)
[2023-10-25 05:45] LABS: MANUAL DIFF FLAG NO
[2023-10-25 05:52] LABS: Basophils Absolute Auto 0.1 X10*3/uL (0.0-0.2); Basophils Percent Auto 0.7 % (0-2); Eosinophils Absolute Auto 0.2 X10*3/uL (0.0-0.4); Eosinophils Percent Auto 2.5 % (0-4); Hematocrit 45.7 % (42.0-52.0); Hemoglobin 15.4 g/dl (14.0-18.0); Imm Gran Abs Auto 0.05 X10*3/uL (0.00-0.03); Imm Gran Pct Auto 0.5 % (0.0-0.4); Lymphocytes Absolute Auto 2.1 X10*3/uL (1.2-4.9); Lymphocytes Percent Auto 22.4 % (20-40); Mean Corpuscular HGB Conc 33.7 g/dl (31.0-36.0); Mean Corpuscular Hemoglobin 29.7 pg (27.0-33.0); Mean Corpuscular Volume 88.1 fL (80.0-98.0); Mean Platelet Volume 10.1 fL (9.4-12.4); Monocytes Absolute Auto 0.9 X10*3/uL (0.1-1.2); Monocytes Percent Auto 9.8 % (2-11); Neutrophils Absolute Auto 6.1 x10*3/uL (2.0-8.3); Neutrophils Percent Auto 64.1 % (45-73); Platelet Count 303 X10*3/uL (160-400); Red Blood Count 5.19 X10*6/uL (4.60-5.80); Red Cell Distribution Width 12.7 % (11.0-16.0); White Blood Count 9.5 X10*3/uL (4.8-10.8)
[2023-10-25] MEDS: Acetaminophen 325 MG TABLET 650 MG PO (05:55)
[2023-10-25 06:01] LABS: Anion Gap 17 (12-20); Blood Urea Nitrogen 18 mg/dL (9-16); Calcium 9.8 mg/dL (8.4-10.2); Carbon Dioxide 25 mmol/L (22-29); Chloride 100 mmol/L (96-108); Creatinine Clr Calc Pharmacy 74.9; Estimated Glomerular Filt Rate > 60; Glucose Random 181 mg/dL (60-115); Potassium 3.5 mmol/L (3.3-5.1); Sodium 138 mmol/L (135-145)
[2023-10-25 07:29] LABS: Glucose, Whole Blood 176 mg/dL (60-115)
[2023-10-25 07:34] VITALS: BP 140/67; PULSE 73; RESP 18; TEMP 36.1; O2SAT 98
[2023-10-25 07:46] VITALS: BP 140/67; PULSE 73
[2023-10-25] MEDS: Aspirin Enteric Coated 81 MG TABLET.DR PO (07:46)
[2023-10-25] MEDS: Cholecalciferol (Vitamin D3) 25 MCG TABLET 50 MCG PO (07:46)
[2023-10-25] MEDS: VerapamiL HCL SR 120 MG TABLET.ER PO (07:46)
[2023-10-25] MEDS: hydroCHLOROthiazide 50 MG TABLET PO (07:46)
[2023-10-25 07:47] VITALS: BP 140/67
[2023-10-25] MEDS: Insulin Lispro 100 UNIT/ML 3 ML VIAL SUBCUT ×4 (07:47→21:43)
[2023-10-25] MEDS: Loratadine 10 MG TABLET PO ×2 (07:47→21:41)
[2023-10-25] MEDS: 0.9 % Sodium Chloride Flush 3 ML SYRINGE IVFLUSH ×3 (07:47→21:42)
[2023-10-25] MEDS: Spironolactone 25 MG TABLET PO (07:47)
[2023-10-25] MEDS: Doxycycline Hyclate 100 MG in 0.9 % Sodium Chloride 250 ML 166.67 MG IV ×2 (08:49→21:42)
--- NOTE | 2023-10-25 09:44 | MHC.CM.PN ---
pt lives with and dgter has vna 2x weekly unsure of agency name [facility] a ride home
[2023-10-25 11:36] LABS: Glucose, Whole Blood 200 mg/dL (60-115)
[2023-10-25] MEDS: Enoxaparin Sodium 40 MG/0.4 ML SYRINGE SUBCUT (11:57)
--- NOTE | 2023-10-25 13:03 | P.PNIM_ITS ---
Subjective Subjective Date of Service: 10/25/23 Interval History: LLE redness/swelling Review of Systems seems somewhat improving no fevers or chills Physical Exam 2 Vital Signs: Vital Signs: Last Vital Signs Temp 97 F 10/25/23 07:34 Pulse 73 10/25/23 07:46 Resp 18 10/25/23 07:34 BP 140/67 H 10/25/23 07:47 Pulse Ox 98 10/25/23 07:34 O2 Del Method Room Air 10/25/23 07:34 BMI result Body Mass Index 35.4 Appearance: Alert.? Oriented X3.? cvs: rrr, [id number] , no murmur res: clear to auscultation ,no rhonchii or wheezing abd: no rebound or guarding ,nt, bs present. ext pulses present , no cyanosis ,left leg erythema some what improving neuro: axo3 , nonfocal. Objective Data Active Medications Acetaminophen (Acetaminophen 325 Mg Tablet) 650 mg PO Q6H PRN PRN Reason: Pain, Mild (Pain Scale 1-3) Last Admin: 10/25/23 05:55 Dose: 650 mg Documented By: MORALES Aspirin (Aspirin Enteric Coated 81 Mg Tablet.) 81 mg PO DAILY COUNT INCLUDES THE [facility] Last Admin: 10/25/23 07:46 Dose: 81 mg Documented By: FUNMILAYO Enoxaparin Sodium (Enoxaparin Sodium 40 Mg/0.4 Ml Syringe) 40 mg SUBCUT Q24H COUNT INCLUDES THE [facility] Last Admin: 10/25/23 11:57 Dose: 40 mg Documented By: FUNMILAYO Gabapentin (Gabapentin 100 Mg Capsule) 200 mg PO BEDTIME COUNT INCLUDES THE [facility] Last Admin: 10/24/23 21:28 Dose: 200 mg Documented By: MORALES Glucose (Glucose Gel 15 Gm Gel..Gram.) 15 gm PO Q15M PRN; Protocol PRN Reason: per Hypoglycemia Standing Ord. Hydrochlorothiazide (Hydrochlorothiazide 50 Mg Tablet) 50 mg PO DAILY COUNT INCLUDES THE [facility] Last Admin: 10/25/23 07:46 Dose: 50 mg Documented By: FUNMILAYO Doxycycline Hyclate 100 mg/ (Sodium Chloride) 250 mls @ 166.67 mls/hr IV Q12H COUNT INCLUDES THE [facility] Last Infusion: 10/25/23 11:20 Dose: Infused Documented By: FUNMILAYO Dextrose (D10) 250 mls @ 750 mls/hr IV Q15M PRN; Protocol PRN Reason: per Hypoglycemia Standing Ord. Cefazolin Sodium/Dextrose (Ancef) 2 gm in 50 mls @ 100 mls/hr IV Q8H COUNT INCLUDES THE [facility] Last Infusion: 10/25/23 06:38 Dose: Infused Documented By: MORALES Insulin Glargine (Insulin Glargine,Hum.Rec.Anlog 100 Unit/Ml 10 Ml Vial) 48 unit SUBCUT BEDTIME COUNT INCLUDES THE [facility] Last Admin: 10/24/23 21:32 Dose: 48 unit Documented By: MORALES Insulin Human Lispro (Insulin Lispro 100 Unit/Ml 3 Ml Vial) 0 unit SUBCUT QIDACHS COUNT INCLUDES THE [facility]; Protocol Last Admin: 10/25/23 11:57 Dose: 2 unit Documented By: FUNMILAYO Loratadine (Loratadine 10 Mg Tablet) 10 mg PO BID COUNT INCLUDES THE [facility] Last Admin: 10/25/23 07:47 Dose: 10 mg Documented By: FUNMILAYO Magnesium Hydroxide (Milk Of Magnesia 30 Ml Oral.Susp) 30 ml PO DAILY PRN PRN Reason: Constipation Melatonin (Melatonin 3 Mg Tablet) 6 mg PO BEDTIME PRN PRN Reason: Insomnia Ondansetron HCl (Ondansetron Hcl 4 Mg/2 Ml Vial) 4 mg IVPUSH Q8H PRN PRN Reason: Nausea and Vomiting Pravastatin Sodium (Pravastatin Sodium 40 Mg Tablet) 40 mg PO BEDTIME COUNT INCLUDES THE [facility] Last Admin: 10/24/23 21:28 Dose: 40 mg Documented By: MORALES Senna (Sennosides 8.6 Mg Tablet) 17.2 mg PO DAILY PRN PRN Reason: constipation Sodium Chloride (0.9 % Sodium Chloride Flush 3 Ml Syringe) 3 ml IVFLUSH QSHIFT COUNT INCLUDES THE [facility] Last Admin: 10/25/23 07:47 Dose: 3 ml Documented By: FUNMILAYO Spironolactone (Spironolactone 25 Mg Tablet) 25 mg PO DAILY COUNT INCLUDES THE [facility]; Protocol Last Admin: 10/25/23 07:47 Dose: 25 mg Documented By: FUNMILAYO Tamsulosin HCl (Tamsulosin Hcl 0.4 Mg Capsule) 0.8 mg PO BEDTIME COUNT INCLUDES THE [facility] Last Admin: 10/24/23 21:28 Dose: 0.8 mg Documented By: MORALES Verapamil HCl (Verapamil Hcl Sr 120 Mg Tablet.Er) 120 mg PO DAILY COUNT INCLUDES THE [facility]; Protocol Last Admin: 10/25/23 07:46 Dose: 120 mg Documented By: FUNMILAYO Vitamin D (Cholecalciferol (Vitamin D3) 25 Mcg Tablet) 50 mcg PO DAILY COUNT INCLUDES THE [facility] Last Admin: 10/25/23 07:46 Dose: 50 mcg Documented By: FUNMILAYO Labs 10/25/23 05:26 10/25/23 05:26 Labs: Laboratory Results - last 24 hr 10/24/23 10/24/23 10/24/23 13:26 18:32 20:33 MCV MCH MCHC RDW Plt Count MPV Immature Gran % (Auto) Neut % (Auto) Lymph % (Auto) [place] % (Auto) Eos % (Auto) Baso % (Auto) Lymph # (Auto) [place] # (Auto) Eos # (Auto) Baso # (Auto) Abs Immat Gran (auto) Absolute Neuts (auto) Absolute Nucleated RBC Nucleated RBC % (auto) Anion Gap Estim Creat Clear Calc Estimated GFR POC Glucose 156 H 214 H 188 H Random Glucose Calcium 10/25/23 10/25/23 10/25/23 05:26 07:11 11:23 MCV 88.1 MCH 29.7 MCHC 33.7 RDW 12.7 Plt Count 303 MPV 10.1 Immature Gran % (Auto) 0.5 H Neut % (Auto) 64.1 Lymph % (Auto) 22.4 [place] % (Auto) 9.8 Eos % (Auto) 2.5 Baso % (Auto) 0.7 Lymph # (Auto) 2.1 [place] # (Auto) 0.9 Eos # (Auto) 0.2 Baso # (Auto) 0.1 Abs Immat Gran (auto) 0.05 H Absolute Neuts (auto) 6.1 Absolute Nucleated RBC 0.000 Nucleated RBC % (auto) 0.0 Anion Gap 17 Estim Creat Clear Calc 74.9 Estimated GFR > 60 POC Glucose 176 H 200 H Random Glucose 181 H Calcium 9.8 Microbiology Microbiology Results: Microbiology 10/24/23 10:48 Blood Culture - Preliminary Blood - Venous No growth after 24 hours. 10/24/23 10:48 Blood Culture - Preliminary Blood - Venous No growth after 24 hours. Assessment and Plan (1) Cellulitis of left lower leg: Status: Acute Assessment and Plan: 73-year-old male with history of CKD stage 3, chronic low back pain, NAFLD, basal cell carcinoma, aortic stenosis, PAD, hypertension, hyperlipidemia, uncontrolled insulin-dependent type 2 diabetes admitted for further management of acute cellulitis LLE in uncontrolled diabetic Acute cellulitis LLE -failed outpt therapy. NO leukocytosis, fevers. No sepsis -CRP 1.28, ESR20 -venous duplex negative for dvt continue iv cefazolin and doxy (initiated 10/23) -follow cbc, cultures Insulin dependent type 2 diabetes with hyperglycemia -uncontrolled, hgb a1c 8.5% -dose adjusted basal insulin -poc glucose, diabetic diet -humalog on ss -hold oral antihyperglycemics/GLP1, resume on dc Diabetic polyneuropathy -gabapentin HTN -continue amlodipine, chlorthalidone, verapamil, spironolactone CKD 3 -renal function baseline PVD -asa, statin DVT prophylaxis- lovenox Full code ongoing hospitlisation need management for acute cellulitis LLE in uncontrolled type 2 diabetic : failed outpt oral abx requiring iv abx,blood cultures,moniter renal function/electrolyes . Quality Stroke Does the patient have a stroke diagnosis?: No VTE Prior VTE?: No VTE Risk Level:: Medical - moderate - high VTE Device Contraindication: Treatment Not Indicated VTE Drug Contraindication: N/A - Med Ordered
[2023-10-25 15:14] VITALS: BP 151/72; PULSE 80; RESP 18; TEMP 36.2; O2SAT 98
[2023-10-25 16:11] LABS: Glucose, Whole Blood 191 mg/dL (60-115)
[2023-10-25 19:39] VITALS: BP 139/70; PULSE 74; RESP 18; TEMP 36.4; O2SAT 98
[2023-10-25 20:19] LABS: Glucose, Whole Blood 265 mg/dL (60-115)
[2023-10-25] MEDS: Tamsulosin HCL 0.4 MG CAPSULE 0.8 MG PO (21:41)
[2023-10-25] MEDS: Gabapentin 100 MG CAPSULE 200 MG PO (21:41)
[2023-10-25] MEDS: Pravastatin Sodium 40 MG TABLET PO (21:41)
[2023-10-25] MEDS: Insulin Glargine,Hum.rec.anlog 100 UNIT/ML 10 ML VIAL 48 UNIT SUBCUT (21:43)
[2023-10-26 03:49] VITALS: BP 142/68; PULSE 69; RESP 18; TEMP 36.1; O2SAT 97
[2023-10-26] MEDS: ceFAZolin Sodium/Dextrose,Iso 2 GM/50 ML PIGGYBACK IV (05:35)
[2023-10-26 07:24] VITALS: BP 146/71; PULSE 71; RESP 18; TEMP 36.1; O2SAT 97
[2023-10-26 07:25] LABS: Glucose, Whole Blood 189 mg/dL (60-115)
[2023-10-26] MEDS: Insulin Lispro 100 UNIT/ML 3 ML VIAL SUBCUT ×2 (08:07→11:55)
[2023-10-26 08:08] VITALS: BP 146/71; PULSE 71
[2023-10-26] MEDS: Loratadine 10 MG TABLET PO (08:08)
[2023-10-26] MEDS: 0.9 % Sodium Chloride Flush 3 ML SYRINGE IVFLUSH (08:08)
[2023-10-26] MEDS: hydroCHLOROthiazide 50 MG TABLET PO (08:08)
[2023-10-26] MEDS: Spironolactone 25 MG TABLET PO (08:08)
[2023-10-26] MEDS: Aspirin Enteric Coated 81 MG TABLET.DR PO (08:08)
[2023-10-26] MEDS: Cholecalciferol (Vitamin D3) 25 MCG TABLET 50 MCG PO (08:08)
[2023-10-26] MEDS: VerapamiL HCL SR 120 MG TABLET.ER PO (08:08)
[2023-10-26] MEDS: Doxycycline Hyclate 100 MG in 0.9 % Sodium Chloride 250 ML 166.67 MG IV (08:14)
[2023-10-26] MEDS: Acetaminophen 325 MG TABLET 650 MG PO (09:18)
[2023-10-26 11:23] LABS: Glucose, Whole Blood 292 mg/dL (60-115)
--- NOTE | 2023-10-26 11:24 | MHC.CM.PN ---
Patient medically cleared for dc home, will resume [facility] services. Private transportation at 1pm. RN aware.
--- NOTE | 2023-10-26 11:31 | W.MHC.F2F ---
Service Date Service Date: 10/26/23 Encounter Date of encounter: 10/26/23 Encounter: cellulitis Reasons for Services Signs and symptoms assessed: any new fever ,worsenin leg cellulitis Reason for chcf: medication management, medication treatment and teach disease management MD Overseeing Care: Aneesh Oliveira Homebound: Leaving the home is medically contraindicated at this time without the asist of a device and/or another person due th the listed conditions above and below. Reason homebound: weakness related to hospital stay Homebound supporting statement: Patient is generalized weak post hospitalization stay, has multiple comorbidities including leg cellulitis-need help with appointments, lab draw, medical management. Certification: Based on the above findings, I certify that this patient is confined to the home and needs intermittent chcf care, physical therapy and/or speech therapy, or continues to need occupational therapy. The patient is under my care, and I have initiated the establishment of the plan of care. The patient will be followed by a physician who will periodically review the plan of care. Time Spent With Patient Time: Total time managing care of this patient today ____ minutes.
--- NOTE | 2023-10-26 11:48 | PM.DS ---
DS: Providers Provider Date of Service: 10/26/23 Date of admission: 10/24/23 12:32 Date of discharge: 10/26/23 Primary care physician: Aneesh Oliveira MD Consults: 10/24/23 20:04 Consult to Wound Care Routine Reason for consultation: cellulits LLE 10/26/23 11:13 Consult to Infectious Diseases Routine Consulting Provider: [facility] [place] [place] Infectious Disease Reason for consultation: left leg cellulits Has provider been notified: No Attending physician on discharge: Jez Horvath Discharging clinician: Jez Horvath DS: Diagnosis Discharge Diagnosis (1) Cellulitis of left lower leg: Status: Acute DS: Summary Hospital Course Hospital Course: 73-year-old male with history of CKD stage 3, chronic low back pain, NAFLD, basal cell carcinoma, aortic stenosis, PID, hypertension, hyperlipidemia, uncontrolled insulin-dependent type 2 diabetes presented to the ED earlier today for evaluation of redness and swelling over the left lower leg. Reports onset of left lower leg erythema about 5 weeks ago. He has since been treated with 3 different rounds of Keflex and doxycycline without improvement. About 3 days ago developed some mild swelling around the area so presented for further evaluation. Denies any fevers, chills, purulent drainage. He is able to ambulate without difficulty. In the ED, vital signs stable. No leukocytosis. Renal function baseline, electrolyte levels normal. Glucose 265. Hemoglobin A1c 8.5%. CRP 1.28, ESR 20. Venous duplex of the left lower extremity negative for DVT. In the ED, treated with IV vancomycin. Hospital course: Patient was admitted for left lower leg cellulitis possible associated with diabetes type 2, failing outpatient antibiotic therapy, CRP 1.28 and ESR 20, venous duplex was negative for DVT. Patient was started on IV cefazolin and doxycycline, blood cultures sent: Patient seems to be improving with IV antibiotics, legs swelling and erythema improved significantly-patient also feeling much better, patient will be going home with p.o. Zyvox since failed outpatient(doxycycline, Keflex)-discussed with ID. Plan: Complete Zyvox 600 mg p.o. b.i.d. for 10 days. Above management discussed with the patient in detail length he understand and in agreement with the above plan, time spent 40 minutes and 50% time spent on counseling. Time Attestation Total time managing care of this patient today: 40 mintues. Discharge Coordination Time (in mins): 40 min Quality: Safe Use of Opioids Does Pt have an Active Cancer Diagnosis on the Problem List?: No Quality: Stroke Does the patient have a stroke diagnosis?: No Physical Exam Vital Signs: Vital Signs: Last Vital Signs Temp 96.9 F 10/26/23 07:24 Pulse 71 10/26/23 08:08 Resp 18 10/26/23 07:24 BP 146/71 H 10/26/23 08:08 Pulse Ox 97 10/26/23 07:24 O2 Del Method Room Air 10/26/23 07:24 BMI result Body Mass Index 35.4 Appearance: Alert.? Oriented X3.?. cvs: rrr, [id number] , no murmur res: clear to auscultation ,no rhonchii or wheezing abd: no rebound or guarding ,nt, bs present. ext pulses present , no cyanosis leg erythema and swelling improving. neuro: axo3 , nonfocal. DS: Data Data Completed and Pending Labs on day of discharge: Laboratory Results - last 24 hr 10/25/23 10/25/23 10/26/23 16:01 20:09 07:21 POC Glucose 191 H 265 H 189 H 10/26/23 11:13 POC Glucose 292 H Preliminary micro results at discharge 10/24/23 10:48 Blood Culture - Preliminary Blood - Venous No growth after 24 hours. 10/24/23 10:48 Blood Culture - Preliminary Blood - Venous No growth after 24 hours. Imaging Chest x-ray: Radiologist's impression: ITS Impressions Venous Duplex 10/24/23 09:52 IMPRESSION: No DVT demonstrated in the left lower extremity. Discharge Plan Discharge Anticipated Discharge Date/Time: 10/26/23 11:07 Patient Disposition: Home, Self-Care Discharge Diagnosis: left leg cellulitis Referrals: Name,MD Aneesh [Primary Care Provider] - 1 Week Discharge Medications: New linezolid [Zyvox] 600 mg tablet 600 mg PO Q12H Qty: 20 0RF Continued cholecalciferol (vitamin D3) 50 mcg (2,000 unit) capsule 50 mcg PO DAILY 30 Days Qty: 30 11RF Invokana 300 mg tablet 300 mg PO QAM Qty: 30 3RF metformin 1,000 mg tablet 1,000 mg PO BID Qty: 60 3RF Toujeo Max U-300 SoloStar 300 unit/mL (3 mL) insulin pen 80 unit subcut BEDTIME Qty: 6 2RF (DME) pen needle, diabetic [UltiCare Pen Needle] 32 gauge x 32 needle See Rx Instructions .ROUTE .COMPLEX Qty: 100 11RF Dose Instruction: USE DIRECTED FOUR TIMES DAILY Rx Instructions: USE DIRECTED FOUR TIMES DAILY insulin lispro [Humalog KwikPen Insulin] 100 unit/mL insulin pen See Rx Instructions subcut .COMPLEX Qty: 30 3RF Rx Instructions: Inject 30 units before breakfast, 35 units before lunch and 35 units before dinner subcutaneously; cetirizine 10 mg tablet 10 mg PO BID gabapentin 100 mg capsule 200 mg PO BEDTIME aspirin 81 mg tablet,delayed release (DR/EC) 81 mg PO DAILY (DME) insulin syringe-needle U-100 1 mL 29 gauge x 1/2 syringe See Rx Instructions .ROUTE QID Qty: 10 Rx Instructions: As directed chlorthalidone 50 mg tablet 50 mg PO QAM (DME) blood sugar diagnostic Strip See Rx Instructions Not Applicable TID Qty: 10 Rx Instructions: As directed sennosides [senna] 8.6 mg tablet 17.2 mg PO DAILY PRN (Reason: constipation) (DME) FreeStyle Willy 2 Sensor Kit See Rx Instructions .Route Qty: 2 4RF Rx Instructions: As directed change every 14 days (DME) FreeStyle Willy 2 [place] Misc See Rx Instructions .Route Qty: 1 0RF Rx Instructions: As directed verapamil 120 mg tablet extended release 120 mg PO QAM spironolactone 25 mg tablet 25 mg PO QAM tamsulosin 0.4 mg capsule 0.8 mg PO BEDTIME (DME) lancets [OneTouch UltraSoft 2 Lancet] 30 gauge misc See Rx Instructions .ROUTE TID Qty: 100 Rx Instructions: As directed (DME) lancets Misc See Rx Instructions .ROUTE TID Qty: 100 Rx Instructions: As directed pravastatin 40 mg tablet 40 mg PO BEDTIME Discontinued doxycycline hyclate 100 mg capsule 100 mg PO BID 10 Days Qty: 20 0RF cephalexin 500 mg tablet 500 mg PO Q6H 10 Days Qty: 40 0RF Discharge Orders: Discharge Order (Routine); Ordered 10/26/23 Ordered By: Jez Horvath Diet: Advance to usual diet Activity on Discharge: As tolerated Stand Alone Forms: Patient Portal Discharge page Print Language: Sudanese Care Plan Goals: complete po zyvox for 10 days. Health Concerns: as above. Plan of Treatment: as above. Assessment: as above.
--- NOTE | 2023-10-26 12:41 | P.CDIM_ITS ---
PROVIDER RESPONSE TEXT: To clarify, the appropriate diagnosis supported by the clinical indicators: Yes, Acute Cellulitis LLE is related to / associated with / due to uncontrolled type 2 diabetic QUERY TEXT: PHYSICIAN'S DOCUMENTATION REQUEST Date of Query: 10/26/2023 09:48 AM EDT Patient Name: Josue Gautam Admit Date: 10/24/2023 Dear Jez Horvath, A review of the medical record indicates additional documentation may be needed. Please review below and update the documentation accordingly. Clinical Indicators: Documentation includes the conditions of Acute Cellulitis LLE and uncontrolled type 2 diabetic. Please clarify the relationship between these conditions: Yes, Acute Cellulitis LLE is related to / associated with / due to uncontrolled type 2 diabetic No, Acute Cellulitis LLE is not related to / associated with / due to uncontrolled type 2 diabetic Other (explain) Clinically unable to determine (explain) Thank you, Landy Covarrubias RN Use of terms such as suspected, likely, concern for, or probable (associated with a specific diagnosi s that is being evaluated, monitored, or treated as if it exists) are acceptable and can be coded in the inpatient se tting, when documented at the time of discharge. Please use your independent medical judgment in providing your response. THIS QUERY IS PART OF THE PERMANENT MEDICAL RECORD
[2023-10-26] MEDS: Linezolid 600 MG TABLET PO (12:48)
--- NOTE | 2023-10-26 15:45 | HO.WOUND ---
Wound Consult: Initial 73yr old Male? admitted to [facility] [place] on 10/24/23 - See progress notes and H&P for detailed history.? Wound consult placed for LLE cellulitis.? Patient agreeable to assessment and photo documentation.? Patient reports he is discharging today - he reports significant improvment in swelling and erythema. No open wounds noted - no topical interventions needed at this time.
== END 2023-10-26 13:40 | disposition home or self-care (01) | DRG 638 ==
LOC: HO.ED 12:05 → HO.EDOVER 12:36 → HO.S3 16:33
PROVIDERS: Internal Medicine; Admitting Provider Physician Assistant; Emergency Provider Emergency Medicine; PCP Internal Medicine Geriatric Medicine; Visit Provider Internal Medicine
DX: E11.628 Type 2 diabetes mellitus with other skin complications (principal); L03.116 Cellulitis of left lower limb; E11.51 Type 2 diabetes mellitus with diabetic peripheral angiopathy without gangrene; E11.42 Type 2 diabetes mellitus with diabetic polyneuropathy; E11.22 Type 2 diabetes mellitus with diabetic chronic kidney disease; K76.0 Fatty (change of) liver, not elsewhere classified; E78.5 Hyperlipidemia, unspecified; G89.29 Other chronic pain; M54.50 Low back pain, unspecified; I12.9 Hypertensive chronic kidney disease with stage 1 through stage 4 chronic kidney disease, or unspecified chronic kidney disease; N18.30 Chronic kidney disease, stage 3 unspecified; Z79.82 Long term (current) use of aspirin; Z79.4 Long term (current) use of insulin; Z79.84 Long term (current) use of oral hypoglycemic drugs; Z79.899 Other long term (current) drug therapy
CPT/HCPCS: 36415; 80048; 80053; 82947; 83036; 85025; 85652; 86140; 87040; 93971; 99221; 99285; J0690; J1650; J3370

== ENCOUNTER → 2023-10-24 12:32 | Outpatient (BNV) | payer OTHER, SELFPAY | PROVIDERS: Admitting Provider Physician Assistant; Emergency Provider Emergency Medicine; PCP Internal Medicine Geriatric Medicine; Visit Provider Physician Assistant | DX: L03.116 Cellulitis of left lower limb (principal); E11.65 Type 2 diabetes mellitus with hyperglycemia | CPT/HCPCS: 99223; 99232; 99239; G0180 ==

== ENCOUNTER → 2023-11-10 16:00 | Outpatient (BNVA) | payer OTHER, SELFPAY | PROVIDERS: PCP Internal Medicine Geriatric Medicine; Visit Provider Internal Medicine Hypertension Specialist | DX: E11.22 Type 2 diabetes mellitus with diabetic chronic kidney disease (principal); I12.9 Hypertensive chronic kidney disease with stage 1 through stage 4 chronic kidney disease, or unspecified chronic kidney disease; N18.9 Chronic kidney disease, unspecified; E11.65 Type 2 diabetes mellitus with hyperglycemia; Z79.4 Long term (current) use of insulin | CPT/HCPCS: 99212 ==

== ENCOUNTER 2023-11-10 16:06 | Outpatient (AMB) | payer OTHER, SELFPAY ==
[2023-11-10 16:09] VITALS: BP 156/60; PULSE 81; O2SAT 98
--- NOTE | 2023-11-10 16:09 | HO.NEPHOV ---
Vital Signs 11/10/23 16:09 Weight 220 lb BP 156/60 H Blood Pressure Location Rt brachial Position Sitting Pulse 81 Pulse Source Pulse Oximeter Pulse Oximetry (%) 98 Oxygen Delivery Method Room Air Intake Visit Reasons: F/U [employer] Required: Yes [employer] Name: Kurt [id number] Accompanied by: Self / Same As Patient Allergies lisinopril [LISINOPRIL] Allergy (Severe, Verified 11/10/23 16:12) ANGIOEDEMA prednisone [PREDNISONE] Allergy (Mild, Verified 11/10/23 16:12) ITCHY HPI Comments Details: 72-year-old man with a history of longstanding hypertension and diabetes mellitus with CKD. He has had episodes of acute kidney injury an currently renal function is back to baseline. Baseline creatinine is less than 1.0. He has difficult to control blood sugars. Recent A1c was 8.2%. Blood pressure has been well controlled. He has microalbuminuria. He has not any WAI inhibitor due to angioedema requiring ICU admission. He is currently on Invokana History of nontoxic multinodular goiter. [employer] service was used Cellulitis of left leg on antibiotics [facility] Medical History NAFLD (nonalcoholic fatty liver disease) Transaminitis Basal cell carcinoma (BCC) Skin lesion of left lower extremity Heart murmur Familial hypocalciuric hypercalcemia Multinodular thyroid Vitamin D deficiency HLD (hyperlipidemia) HTN (hypertension) T2DM (type 2 diabetes mellitus) Surgical History Hx of melanoma excision Hx of esophagogastroduodenoscopy Hx of colonoscopy Hx of appendectomy Hx of cholecystectomy Family History Father CVD (cardiovascular disease) Diabetes Brother CVD (cardiovascular disease) Diabetes FH: heart attack Social History Household Members: Family Housing: House Do you presently have visiting nurse or other home services: Yes (visiting nurse 2x week) Alcohol intake: never Patient Tobacco Use Status: Never used Tobacco service: No Current occupational status: unemployed Physical Exam Vital Signs: Last Vital Signs Pulse 81 11/10/23 16:09 BP 156/60 H 11/10/23 16:09 Pulse Ox 98 11/10/23 16:09 Oxygen Delivery Method Room Air 11/10/23 16:09 Extrem Right lower extremity: edema Results Reviewed Nephrology Results: Hgb 15.4 g/dl (14.0-18.0) 10/25/23 WBC 9.5 X10*3/uL (4.8-10.8) 10/25/23 Plt Count 303 X10*3/uL (160-400) 10/25/23 Sodium 138 mmol/L (135-145) 10/25/23 Potassium 3.5 mmol/L (3.3-5.1) 10/25/23 Chloride 100 mmol/L (96-108) 10/25/23 Carbon Dioxide 25 mmol/L (22-29) 10/25/23 BUN 18 mg/dL (9-16) H 10/25/23 Creatinine 0.97 mg/dL (0.5-1.4) 10/25/23 Calcium 9.8 mg/dL (8.4-10.2) 10/25/23 Assessment & Plan Assessment & Plan (1) CKD (chronic kidney disease): Code(s): N18.9 - Chronic kidney disease, unspecified Category: Medical Plan: Due to underlying diabetic hypertensive kidney disease. No evidence of active glomerulonephritis or obstructive uropathy. Patient's serum creatinine is less than 1.0. Goal is to slow the progression of renal disease. Continue to avoid nephrotoxic agents including NSAIDs. Continue to use SGLT 2 inhibitors for cardiorenal protection Unable to use Wai inhibitors due to history of angioedema (2) HTN (hypertension): Comment: Stable Code(s): I10 - Essential (primary) hypertension Category: Medical Plan: Blood pressure is acceptable Continue current regimen. Low-salt diet (3) T2DM (type 2 diabetes mellitus): Code(s): E11.9 - Type 2 diabetes mellitus without complications Category: Medical Qualifiers: Diabetes mellitus manager long term care insulin use: with manager long term care use Diabetes mellitus complication status: with hyperglycemia Qualified Code(s): E11.65 - Type 2 diabetes mellitus with hyperglycemia; Z79.4 - [facility]FP (current) use of insulin Plan: Goal A1c less than 7% Follow with endocrinology Discussed weight Orders: Orders Basic Metabolic Panel 3 Months N18.9 - Chronic kidney disease, unspecified Coding Level of Care Code Est Pt Level 4 (27643) Diagnoses CKD (chronic kidney disease) N18.9 Hypertension, unspecified type I10 Type 2 diabetes mellitus with hyperglycemia, with long-term current use of insulin E11.65; Z79.4 Diabetes mellitus manager long term care insulin use: with shelter use Diabetes mellitus complication status: with hyperglycemia
== END 2023-11-10 16:32 | disposition home or self-care (01) ==
PROVIDERS: PCP Internal Medicine Geriatric Medicine; Visit Provider Internal Medicine Hypertension Specialist
DX: I12.9 Hypertensive chronic kidney disease with stage 1 through stage 4 chronic kidney disease, or unspecified chronic kidney disease (principal); N18.9 Chronic kidney disease, unspecified; E11.65 Type 2 diabetes mellitus with hyperglycemia; Z79.4 Long term (current) use of insulin
CPT/HCPCS: 99214

== ENCOUNTER 2023-11-19 08:15 | Outpatient (REF) | payer OTHER, SELFPAY ==
[2023-11-19 08:46] LABS: MANUAL DIFF FLAG NO
[2023-11-19 08:58] LABS: Basophils Absolute Auto 0.1 X10*3/uL (0.0-0.2); Basophils Percent Auto 0.7 % (0-2); Eosinophils Absolute Auto 0.2 X10*3/uL (0.0-0.4); Eosinophils Percent Auto 2.3 % (0-4); Hematocrit 41.7 % (42.0-52.0); Hemoglobin 14.1 g/dl (14.0-18.0); Imm Gran Abs Auto 0.04 X10*3/uL (0.00-0.03); Imm Gran Pct Auto 0.4 % (0.0-0.4); Lymphocytes Absolute Auto 2.5 X10*3/uL (1.2-4.9); Lymphocytes Percent Auto 27.5 % (20-40); Mean Corpuscular HGB Conc 33.8 g/dl (31.0-36.0); Mean Corpuscular Hemoglobin 29.6 pg (27.0-33.0); Mean Corpuscular Volume 87.4 fL (80.0-98.0); Mean Platelet Volume 9.3 fL (9.4-12.4); Monocytes Absolute Auto 0.9 X10*3/uL (0.1-1.2); Monocytes Percent Auto 10.4 % (2-11); Neutrophils Absolute Auto 5.3 x10*3/uL (2.0-8.3); Neutrophils Percent Auto 58.7 % (45-73); Platelet Count 293 X10*3/uL (160-400); Red Blood Count 4.77 X10*6/uL (4.60-5.80); Red Cell Distribution Width 13.2 % (11.0-16.0); White Blood Count 9.1 X10*3/uL (4.8-10.8)
== END 2023-11-19 08:16 | disposition home or self-care (01) ==
LOC: HO.LAB 08:15
PROVIDERS: PCP Internal Medicine Geriatric Medicine; Visit Provider Internal Medicine Geriatric Medicine
DX: L03.116 Cellulitis of left lower limb (principal)
CPT/HCPCS: 36415; 85025

== ENCOUNTER 2023-12-13 10:37 | Outpatient (AMB) | payer OTHER, SELFPAY ==
--- NOTE | 2023-12-13 10:43 | A.OFFVIS_ITS ---
Intake Visit Reasons: [facility] re-referral recurrent cellulitis & Intake Note: Patient presents for recurrent cellulitis and . Patient has discoloration on his left leg only. Also has swelling. Allergies lisinopril [LISINOPRIL] Allergy (Severe, Verified 12/13/23 10:46) ANGIOEDEMA prednisone [PREDNISONE] Allergy (Mild, Verified 12/13/23 10:46) ITCHY HPI HPI [facility] re-referral recurrent cellulitis & : Details: Very pleasant 73-year-old gentleman presents for evaluation regarding left pretibial skin changes. He was actually in the hospital for a bout of cellulitis. Upon review he would actually seen us back in June of 2021. At that time he had noninvasive arterial testing which demonstrated an BELEN on the right of 1.05 and on the left of 1.06. He did have left lower extremity discomfort at that time. Now he has skin changes. He does note some edema on the lower extremities. He now presents to us for vascular evaluation [facility] Medical History NAFLD (nonalcoholic fatty liver disease) Transaminitis Basal cell carcinoma (BCC) Skin lesion of left lower extremity Heart murmur Familial hypocalciuric hypercalcemia Multinodular thyroid Vitamin D deficiency HLD (hyperlipidemia) HTN (hypertension) T2DM (type 2 diabetes mellitus) Surgical History Hx of melanoma excision Hx of esophagogastroduodenoscopy Hx of colonoscopy Hx of appendectomy Hx of cholecystectomy Family History Father CVD (cardiovascular disease) Diabetes Brother CVD (cardiovascular disease) Diabetes FH: heart attack Social History Household Members: Family Housing: House Do you presently have visiting nurse or other home services: Yes (visiting nurse 2x week) Alcohol intake: never Patient Tobacco Use Status: Never used Tobacco service: No Current occupational status: unemployed Review of Systems Const All systems reviewed & are unremarkable except as noted in HPI and below Reports no additional complaints ENT Reports Normal hearing present Card Denies chest pain, Denies chest pain at rest, Denies chest pain with activity and Denies pedal edema Resp Denies cough GI Denies abdominal pain Musc Denies abnormal gait, Denies muscle cramps and Denies radiating pain into limb Skin/Breast Denies skin ulcer and Denies wounds Neuro Reports Normal hearing present and Denies abnormal gait Psych Reports no additional complaints Physical Exam Const General: cooperative, healthy appearing and comfortable Orientation/consciousness: oriented to person, oriented to place and oriented to time HEENT Head: Yes normal to inspection Neck Neck: Yes normal visual inspection Carotids: no bruits Chest Chest palpation & inspection: normal inspection of the chest Resp Effort & Inspection: normal respiratory effort and able to speak in complete sentences Auscultation: clear to auscultation bilaterally, no crackles, no rales, no rhonchi and no wheezes Cardio Other: Bilateral DP signals Rate: regular rate Rhythm: regular rhythm Heart sounds: S1 normal heart sound present and S2 normal heart sound present Bruits: no carotid bruits GI Inspection: Yes normal to inspection Skin Other: Left pretibial skin changes Wounds: no wounds Hair: normal Neuro General: oriented to person, oriented to place and oriented to time Cranial nerves: Yes CN's II-XII intact bilaterally and Yes Normal hearing present Cognition (Neuro): normal cognition Motor exam (neuro): 5/5 motor strength present throughout Extrem Other: venous exam: No significant superficial varicosities or spider telangiectasias, minimal edema General: No clubbing, No cyanosis and No edema Psych Appearance: grossly normal Mental Status: mental status grossly normal Speech and movement: Normal speech and movement present Assessment & Plan Assessment & Plan (1) PAD (peripheral artery disease): Code(s): I73.9 - Peripheral vascular disease, unspecified Category: Medical Plan: The patient may have an element of peripheral vascular disease. At the current time I am unable to appreciate palpable arterial pulses. Even though his 2 prior testing appeared to be within normal limits we will re-obtain no lower extremity arterial testing. Will follow up with us after testing. Thank you for allowing us to assist in his care. If there are any questions or concerns please do not hesitate to contact us. (2) Varicose veins of left lower extremity with inflammation: Code(s): I83.12 - Varicose veins of left lower extremity with inflammation Category: Medical Plan: In short patient may have an element of venous disease as he does have significantly swollen lower extremities that may be leading to this discolored skin area. I have taken the liberty of ordering venous insufficiency testing to rule that out. Will follow up with us after testing. Orders: Orders US venous duplex LE BI 1 Week I83.12 - Varicose veins of left lower extremity with inflammation US arterial duplex LE BI 1 Week I73.9 - Peripheral vascular disease, unspecified Coding Level of Care Code Est Pt Level 4 (10772) Diagnoses PAD (peripheral artery disease) I73.9 Varicose veins of left lower extremity with inflammation I83.12
== END 2023-12-13 11:04 | disposition home or self-care (01) ==
PROVIDERS: PCP Internal Medicine Geriatric Medicine; Visit Provider Surgery Vascular Surgery
DX: I73.9 Peripheral vascular disease, unspecified (principal); I83.12 Varicose veins of left lower extremity with inflammation
CPT/HCPCS: 99214

== ENCOUNTER → 2023-12-13 10:37 | Outpatient (BNVA) | payer OTHER, SELFPAY | PROVIDERS: PCP Internal Medicine Geriatric Medicine; Visit Provider Surgery Vascular Surgery | DX: I73.9 Peripheral vascular disease, unspecified (principal); I83.12 Varicose veins of left lower extremity with inflammation | CPT/HCPCS: 99212 ==

== ENCOUNTER 2023-12-26 07:55 | Outpatient (REF) | payer OTHER, SELFPAY ==
--- NOTE | ~2023-12-26 | US_ITS ---
EXAMINATION: US LOWER EXTREMITY VENOUS (REFLUX EXAM), BILATERAL CLINICAL INDICATION: Chronic venous insufficiency with lower extremity varicose veins with inflammation COMPARISON: Left lower extremity ultrasound from 10/24/2023 TECHNIQUE: Color flow triplex imaging and compression Doppler was performed to evaluate both the deep and the superficial systems bilaterally. To evaluate the superficial system, the examination was performed in the upright position. Color-flow Doppler ultrasound and compression ultrasound were utilized. In addition, maneuvers were utilized to demonstrate reflux. FINDINGS: 1. DEEP VENOUS ULTRASOUND OF THE RIGHT LOWER EXTREMITY: Common Femoral Vein: Compressible, normal respiratory variation and augmented flow. Femoral Vein: Compressible, normal color flow and augmentation. Popliteal Vein: Compressible, normal augmentation. Deep Reflux: There is no evidence of reflux in the deep system in either the common femoral vein, superficial femoral or the popliteal vein. There is no evidence of a Son's cyst. 2. SUPERFICIAL ULTRASOUND WITH DOPPLER OF RIGHT LOWER EXTREMITY: GREAT SAPHENOUS VEIN: Saphenofemoral Junction: 0.5 cm; Reflux: 0 ms Proximal Thigh: 0.4 cm; Reflux: 0 ms Mid Thigh: 0.2 cm; Reflux: 0 ms Above Knee: 0.2 cm; Reflux: 0 ms At Knee: 0.1 cm; Reflux: 0 ms Below Knee: 0.2 cm; Reflux: 0 ms Mid Calf: 0.1 cm; Reflux: 0 ms Ankle: 0.2 cm; Reflux: 0 ms DUPLICATED MEDIAL GREAT SAPHENOUS VEIN: Diameter: None imaged Reflux: NA DUPLICATED LATERAL GREAT SAPHENOUS VEIN: Diameter: 0.2 cm Reflux: None SMALL SAPHENOUS VEIN: Saphenopopliteal Junction: 0.2 cm; Reflux: 0 ms Proximal: 0.3 cm; Reflux: 0 ms Distal: 0.2 cm; Reflux: 0 ms VEIN OF GIACOMINI: Size: 0.2 cm Reflux: None PERFORATORS: Location: None significant Size: NA Reflux: NA VARICOSITIES: Location: None significant Size: NA Reflux: NA 3. DEEP VENOUS ULTRASOUND OF THE LEFT LOWER EXTREMITY: Common Femoral Vein: Compressible, normal respiratory variation and augmented flow. Femoral Vein: Compressible, normal color flow and augmentation. Popliteal Vein: Compressible, normal augmentation. Deep Reflux: There is no evidence of reflux in the deep system in either the common femoral vein, superficial femoral or the popliteal vein. There is no evidence of a Son's cyst. Enlarged lymph node in the left groin measuring 2.1 x 0.8 x 2.6 cm 4. SUPERFICIAL ULTRASOUND WITH DOPPLER OF LEFT LOWER EXTREMITY: GREAT SAPHENOUS VEIN: Saphenofemoral Junction: 0.6 cm; Reflux: 0 ms Proximal Thigh: 0.5 cm; Reflux: 0 ms Mid Thigh: 0.3 cm; Reflux: 0 ms Above Knee: 0.3 cm; Reflux: 0 ms At Knee: 0.2 cm; Reflux: 0 ms Below Knee: 0.2 cm; Reflux: 1480 ms Mid Calf: 0.1 cm; Reflux: 0 ms Ankle: 0.2 cm; Reflux: 0 ms DUPLICATED MEDIAL GREAT SAPHENOUS VEIN: Diameter: None imaged Reflux: NA DUPLICATED LATERAL GREAT SAPHENOUS VEIN: Diameter: 0.2 cm Reflux: None SMALL SAPHENOUS VEIN: Saphenopopliteal Junction: 0.1 cm; Reflux: 0 ms Proximal: 0.1 cm; Reflux: 0 ms Distal: 0.3 cm; Reflux: 0 ms VEIN OF GIACOMINI: Size: NA Reflux: NA PERFORATORS: Location: None significant Size: NA Reflux: NA VARICOSITIES: Location: None significant Size: NA Reflux: NA US/US venous duplex LE BI IMPRESSION: Right: No significant venous insufficiency or reflux in the great saphenous vein or small saphenous vein Left: Single focal area of segmental reflux in the great saphenous vein in the proximal calf as described above. There are multiple small varicose veins measuring less than 3 cm without significant reflux
== END 2023-12-26 07:56 | disposition home or self-care (01) ==
LOC: HO.US 07:55
PROVIDERS: PCP Internal Medicine Geriatric Medicine; Visit Provider Surgery Vascular Surgery
DX: I83.12 Varicose veins of left lower extremity with inflammation (principal)
CPT/HCPCS: 93970

== ENCOUNTER 2023-12-31 07:06 | Outpatient (REF) | payer OTHER, SELFPAY ==
[2023-12-31 08:21] LABS: Anion Gap 15 (12-20); Blood Urea Nitrogen 26 mg/dL (9-16); Calcium 10.3 mg/dL (8.4-10.2); Carbon Dioxide 29 mmol/L (22-29); Chloride 101 mmol/L (96-108); Estimated Glomerular Filt Rate 58; Glucose Random 113 mg/dL (60-115); Potassium 3.5 mmol/L (3.3-5.1); Sodium 141 mmol/L (135-145)
== END 2023-12-31 07:07 | disposition home or self-care (01) ==
LOC: HO.LAB 07:06
PROVIDERS: Visit Provider Internal Medicine Hypertension Specialist
DX: N18.9 Chronic kidney disease, unspecified (principal)
CPT/HCPCS: 36415; 80048

== ENCOUNTER 2024-01-26 09:39 | Outpatient (REF) | payer OTHER, SELFPAY ==
--- NOTE | ~2024-01-26 | US_ITS ---
EXAMINATION: US arterial duplex BI w/ BELEN CLINICAL INFORMATION: Peripheral vascular disease, unspecified TECHNIQUE: Ankle pulse volume recordings, ankle pressure measurements and ankle brachial indices were obtained of the lower extremity arterial system bilaterally in addition to duplex Doppler techniques with wave form analysis and measurement of velocities in the common femoral, profunda femoral, superficial femoral, popliteal, tibial and peroneal arteries. The study was performed only at rest. COMPARISON: Bilateral lower extremity arterial duplex 07/07/21 FINDINGS: Atherosclerotic plaque seen along the bilateral lower extremities. RIGHT LE. THE RIGHT ANKLE-BRACHIAL INDEX IS: 1.16, previously 1.05 >0.97-1.25 = normal - no significant arterial disease 0.75-0.96 = mild peripheral arterial disease 0.5-0.74 = moderate peripheral arterial disease <0.50 = severe peripheral arterial disease <0.30 = critical arterial disease 2. SEGMENTAL PRESSURES (mmHg): Ankle: PT 212, DP 200 3. PVR WAVEFORMS: Ankle: Normal Common femoral artery: 136 cm/s, Triphasic, mild stenosis Profunda femoris artery: 159 cm/s, Triphasic, mild stenosis Superficial femoral artery (proximal): 138 cm/s, Triphasic, mild stenosis Superficial femoral artery (mid): 421 cm/s, Triphasic, moderate stenosis Superficial femoral artery (distal): 71 cm/s, Biphasic Popliteal artery: 90 cm/s, Triphasic Posterior tibial artery: 84 cm/s, Monophasic LEFT LE. THE LEFT ANKLE-BRACHIAL INDEX IS: 1.11, previously 1.06 >0.97-1.25 = normal - no significant arterial disease 0.75-0.96 = mild peripheral arterial disease 0.5-0.74 = moderate peripheral arterial disease <0.50 = severe peripheral arterial disease <0.30 = critical arterial disease 2. SEGMENTAL PRESSURES: Ankle: PT 204, DP 203 3. PVR WAVEFORMS: Ankle: Normal 4. DIRECT DUPLEX: Common femoral artery: 156 cm/s, Triphasic, mild stenosis Profunda femoris artery: 84 cm/s, Biphasic Superficial femoral artery (proximal): 125 cm/s, Biphasic Superficial femoral artery (mid): 163 cm/s, Biphasic, mild stenosis Superficial femoral artery (distal): 150 cm/s, Biphasic, mild stenosis Popliteal artery: 178 cm/s, Biphasic, mild stenosis Posterior tibial artery: 119 cm/s, Biphasic US/US arterial duplex BI w/ BELEN IMPRESSION: 1. Elevated velocities suggest mild to moderate peripheral vascular disease in both lower extremities as described above, with focal moderate stenosis at the Right mid superficial femoral artery. 2. The bilateral ankle brachial indices are within normal limits however, these may be elevated due to noncompressible vessels at the ankle.
== END 2024-01-26 09:40 | disposition home or self-care (01) ==
LOC: HO.US 09:39
PROVIDERS: PCP Internal Medicine Geriatric Medicine; Visit Provider Surgery Vascular Surgery
DX: I73.9 Peripheral vascular disease, unspecified (principal)
CPT/HCPCS: 93922; 93925

== ENCOUNTER 2024-02-28 08:57 | Outpatient (AMB) | payer OTHER, SELFPAY ==
--- NOTE | 2024-02-28 09:01 | A.OFFVIS_ITS ---
Intake Visit Reasons: follow up Arterial US & US 01/26/24 Intake Note: Patient presents for arterial and US follow up. Patient's left leg is red, swollen and painful. Right leg is fine Accompanied by: Self / Same As Patient Allergies lisinopril [LISINOPRIL] Allergy (Severe, Verified 02/28/24 09:03) ANGIOEDEMA prednisone [PREDNISONE] Allergy (Mild, Verified 02/28/24 09:03) ITCHY HPI HPI follow up Arterial US & US 01/26/24: Details: Very pleasant 73-year-old gentleman presents for follow-up evaluation regarding peripheral vascular disease. He had undergone arterial and venous testing. He reports that he has left lower extremity discomfort. It has been a source of pain for him to walk distances. He is unable to go more than a block prior to any significant difficulty. He now presents to us for follow-up with arterial and venous testing. [facility] Medical History NAFLD (nonalcoholic fatty liver disease) Transaminitis Basal cell carcinoma (BCC) Skin lesion of left lower extremity Heart murmur Familial hypocalciuric hypercalcemia Multinodular thyroid Vitamin D deficiency HLD (hyperlipidemia) HTN (hypertension) T2DM (type 2 diabetes mellitus) Surgical History Hx of melanoma excision Hx of esophagogastroduodenoscopy Hx of colonoscopy Hx of appendectomy Hx of cholecystectomy Family History Father CVD (cardiovascular disease) Diabetes Brother CVD (cardiovascular disease) Diabetes FH: heart attack Social History Household Members: Family Housing: House Do you presently have visiting nurse or other home services: Yes (visiting nurse 2x week) Alcohol intake: never Patient Tobacco Use Status: Never used Tobacco service: No Current occupational status: unemployed Review of Systems Const All systems reviewed & are unremarkable except as noted in HPI and below Reports no additional complaints ENT Reports Normal hearing present Card Denies chest pain, Denies chest pain at rest, Denies chest pain with activity and Denies pedal edema Resp Denies cough GI Denies abdominal pain Musc Denies abnormal gait, Denies muscle cramps and Denies radiating pain into limb Skin/Breast Denies skin ulcer and Denies wounds Neuro Reports Normal hearing present and Denies abnormal gait Psych Reports no additional complaints Physical Exam Const General: cooperative, healthy appearing and comfortable Orientation/consciousness: oriented to person, oriented to place and oriented to time HEENT Head: Yes normal to inspection Neck Neck: Yes normal visual inspection Carotids: no bruits Chest Chest palpation & inspection: normal inspection of the chest Resp Effort & Inspection: normal respiratory effort and able to speak in complete sentences Auscultation: clear to auscultation bilaterally, no crackles, no rales, no rhonchi and no wheezes Cardio Rate: regular rate Rhythm: regular rhythm Heart sounds: S1 normal heart sound present and S2 normal heart sound present Bruits: no carotid bruits Peripheral pulses: Peripheral pulses 2+ throughout GI Inspection: Yes normal to inspection Skin Wounds: no wounds Hair: normal Neuro General: oriented to person, oriented to place and oriented to time Cranial nerves: Yes CN's II-XII intact bilaterally and Yes Normal hearing present Cognition (Neuro): normal cognition Motor exam (neuro): 5/5 motor strength present throughout Extrem Other: venous exam: No significant superficial varicosities or spider telangiectasias, minimal edema General: No clubbing, No cyanosis and No edema Psych Appearance: grossly normal Mental Status: mental status grossly normal Speech and movement: Normal speech and movement present Results Reviewed Results Reviewed: Brief summary of venous insufficiency testing is as follows: right great saphenous vein: negative right small saphenous vein: negative right accessory vein: none present left great saphenous vein: negative left small saphenous vein: negative left accessory vein: none present Please note there is no evidence of any venous aneurysms or significant tortuosity Noninvasive arterial testing demonstrates BELEN on the right of 1.16 and on the left 1.1 with concerns mid SFA stenosis. And even concerns of left common femoral stenosis dating back to 2021 Assessment & Plan Assessment & Plan (1) PAD (peripheral artery disease): Code(s): I73.9 - Peripheral vascular disease, unspecified Category: Medical Plan: Patient notes leg pain when walking distances. I have discussed the pathophysiology of peripheral vascular disease with the patient. I have also discussed risk factor modification. I have reviewed the patient's arterial testing which reveals left common femoral and SFA disease. the patient would benefit from a [] leg endovascular peripheral angiogram with possible angioplasty, stent, and/or atherectomy. This has been discussed in detail with the patient along with risks, benefits, and complications. This includes but is not limited to bleeding, infection, heart attack, need for emergent surgical repair, limb ischemia, blood vessel damage, bleeding, puncture, kidney injury, bruising, allergic reaction, and skin reaction. The patient demonstrates a clear understanding. We will schedule for the next appropriate time. Thank you for allowing us to assist in this patient's care. Please note a longitudinal relationship has been created with the patient and we have been following and surveillance this chronic condition. Coding Level of Care Code Est Pt Level 4 (09125) Complex EM visit Add On G2211 Diagnoses PAD (peripheral artery disease) I73.9
== END 2024-02-28 09:22 | disposition home or self-care (01) ==
PROVIDERS: PCP Internal Medicine Geriatric Medicine; Visit Provider Surgery Vascular Surgery
DX: I73.9 Peripheral vascular disease, unspecified (principal)
CPT/HCPCS: 99214; G2211

== ENCOUNTER → 2024-02-28 08:57 | Outpatient (BNVA) | payer OTHER, SELFPAY | PROVIDERS: PCP Internal Medicine Geriatric Medicine; Visit Provider Surgery Vascular Surgery | DX: I73.9 Peripheral vascular disease, unspecified (principal) | CPT/HCPCS: 99212 ==

== ENCOUNTER 2024-03-07 06:04 | Day surgery (SDC) | payer OTHER, SELFPAY ==
[2024-03-07] VITALS (7 sets, daily range): BP systolic 140–170; BP diastolic 68–73; PULSE 70–77; RESP 16–24; TEMP 36.4–37.1; O2SAT 95–98; BMI 34.2
[2024-03-07 06:48] LABS: MANUAL DIFF FLAG NO
[2024-03-07 06:51] LABS: Basophils Absolute Auto 0.1 X10*3/uL (0.0-0.2); Basophils Percent Auto 0.8 % (0-2); Eosinophils Absolute Auto 0.2 X10*3/uL (0.0-0.4); Eosinophils Percent Auto 2.1 % (0-4); Hematocrit 45.3 % (42.0-52.0); Hemoglobin 15.3 g/dl (14.0-18.0); Imm Gran Abs Auto 0.05 X10*3/uL (0.00-0.03); Imm Gran Pct Auto 0.5 % (0.0-0.4); Lymphocytes Absolute Auto 2.7 X10*3/uL (1.2-4.9); Mean Corpuscular HGB Conc 33.8 g/dl (31.0-36.0); Mean Corpuscular Hemoglobin 29.5 pg (27.0-33.0); Mean Corpuscular Volume 87.5 fL (80.0-98.0); Mean Platelet Volume 10.6 fL (9.4-12.4); Monocytes Absolute Auto 0.8 X10*3/uL (0.1-1.2); Monocytes Percent Auto 7.6 % (2-11); Neutrophils Absolute Auto 6.3 x10*3/uL (2.0-8.3); Platelet Count 329 X10*3/uL (160-400); Red Blood Count 5.18 X10*6/uL (4.60-5.80); Red Cell Distribution Width 13.2 % (11.0-16.0); White Blood Count 10.1 X10*3/uL (4.8-10.8)
[2024-03-07 07:20] LABS: Blood Urea Nitrogen 35 mg/dL (9-16); Creatinine Clr Calc Pharmacy 47.2; Estimated Glomerular Filt Rate 46
--- NOTE | 2024-03-07 10:20 | P.OP_ITS ---
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 Ultrasound-guided right common femoral access 2. Aortogram with bilateral lower extremity runoff 3. Left peroneal and popliteal plasty Surgeon:Rodney Smith M.D., FACS, RPVI Awning Finisher:None Anesthesia: Local with moderate conscious sedation. Total intraservice moderate sedation time was 60 minutes. I monitored the patient's level of consciousness and physiologic status continuously throughout the procedure. Specimens:none Drains:none Estimated blood loss: Less than 10 ml Implant: [employer] Impact DCB 4 x 40 Indications: Very pleasant 73-year-old gentleman presents for peripheral vascular disease and ulceration on the left lower extremity more so on the pretibial surface. On noninvasive workup he was found to have SFA and tibial disease and there was even concern of common femoral disease. He now presents for endovascular intervention The patient has signed the informed consent after reviewing risks, complications, benefits, and alternatives previously discussed with the patient. The patient was given the opportunity to ask any additional questions or voice any concerns. All questions were answered to the patient's satisfaction. Procedure in detail: Patient was brought to the angiography suite prior to which a time-out was called for patient identification and site verification. Bilateral groins were prepped and draped in the standard surgical fashion. Under ultrasound guidance right common femoral was punctured with micro puncture needle and wire. Subsequently a precision 5 Portuguese sheath was then placed. Bentson wire was advanced to the level of the aorta. 5 Portuguese Flush catheter was brought up and parked at the level of the renal arteries. Aortogram was then undertaken. Catheter was brought down to the level of the iliac bifurcation. Iliacs were subsequently imaged. Catheter was then brought in up and over to the left side SFA. Runoff study was then undertaken. At this time 8000 units of systemic heparin was administered. Up and over 5 Portuguese sheath was then placed. We nazia an ACT. It was subtherapeutic and an additional 2000 units of heparin was administered. We did not appreciate any significant disease in the common femoral or SFA. He did have some disease at the below- knee vessels. We used a trail Blazer catheter to get down to this level. We advanced an 035 glidewire Advantage. Once we were able to traverse the TP trunk into the peroneal we confirmed true lumen by instilling contrast through the catheter. Once in appropriate position we plasty this area 1st the peroneal with a 3 x 20 balloon. This required multiple insufflations. We then subsequent to this address the TP trunk and the popliteal. This was plasty did with a 4 x 40 drug coated balloon. We brought this into position in under 3 minutes and insufflated for a total of 3 minutes in duration. Once this was all done completion angiogram was done. Catheter wire sheath was brought back to the ipsilateral side. Right lower extremity runoff was then undertaken. After this was accomplished a CELT closure device was then placed. Adequate hemostasis was achieved. Patient tolerated the procedure well. Returned to recovery with stable vitals. Interpretation of films: 1. Ultrasound demonstrates appropriate femoral access site. Vessel was patent with minimal stenosis. Needle entry was visualized. Image of ultrasound was saved. 2. Aortogram demonstrates appropriate caliber aorta. Minimal disease. Appropriate take-off of the renals. 3. Iliac images demonstrate no significant disease 4. Left Leg Common femoral artery: No significant disease Profundus Femoris: No significant disease Superficial femoral artery: No significant disease Popliteal artery (p1,p2,p3): Moderate stenosis at the P3 segment Anterior tibial artery: Short takeoff and then totally occluded Peroneal artery: Runoff to the foot with proximal stenosis Posterior tibial artery: Runoff to the foot Dorsalis pedis/plantar arch: Incomplete 5. Right Leg Common femoral artery: No significant disease Profundus Femoris: No significant disease Superficial femoral artery: Moderate stenosis at the mid SFA Popliteal artery (p1,p2,p3): No significant disease Anterior tibial artery: Short takeoff and then totally occluded Peroneal artery: Runoff to the foot Posterior tibial artery: Runoff to the foot Dorsalis pedis/plantar arch: Not seen Conclusion: 1. Successful plasty of left popliteal and peroneal artery 2. Anticoagulation status: Aspirin and Plavix for 6 months This note is constructed using voice recognition software. While every effort has been made to ensure accuracy, action installer errors may have been included. Thank you for allowing me to participate in the care of your patient. Yours sincerely, Rodney Smith MD, FACS, R.P.V.I. Angiogram report from [facility]
[2024-03-07] MEDS: Clopidogrel Bisulfate 300 MG TABLET PO (10:50)
[2024-03-08 07:02] LABS: ACT 170 Celite s (79-173)
[2024-03-08 07:02] LABS: ACT 203 Celite s (79-173)
[2024-03-08 07:02] LABS: ACT 96 Celite s (79-173)
== END 2024-03-07 11:51 | disposition home or self-care (01) ==
PROVIDERS: PCP Internal Medicine Geriatric Medicine; Visit Provider Surgery Vascular Surgery
PROC: (CPT 37224; principal; 2024-03-07 07:30)
DX: E11.51 Type 2 diabetes mellitus with diabetic peripheral angiopathy without gangrene (principal); L97.829 Non-pressure chronic ulcer of other part of left lower leg with unspecified severity; I70.248 Atherosclerosis of native arteries of left leg with ulceration of other part of lower leg; R26.2 Difficulty in walking, not elsewhere classified; I10 Essential (primary) hypertension; E78.5 Hyperlipidemia, unspecified; E04.2 Nontoxic multinodular goiter; E83.52 Hypercalcemia; K76.0 Fatty (change of) liver, not elsewhere classified; Z85.820 Personal history of malignant melanoma of skin; Z79.4 Long term (current) use of insulin; Z79.84 Long term (current) use of oral hypoglycemic drugs; Z79.85 Long-term (current) use of injectable non-insulin antidiabetic drugs; Z79.899 Other long term (current) drug therapy; Z88.8 Allergy status to other drugs, medicaments and biological substances; Z98.890 Other specified postprocedural states; Z56.0 Unemployment, unspecified
CPT/HCPCS: 37224; 37228; 36415; 75630; 76937; 82565; 84520; 85025; 85347; 99152; 99153; C1725; C1760; C1769; C1887; C1894; C2623; J1644; J2250; J2310; J3010; Q9967

== ENCOUNTER → 2024-03-07 06:04 | Outpatient (BNV) | payer OTHER, SELFPAY | PROVIDERS: PCP Internal Medicine Geriatric Medicine; Visit Provider Surgery Vascular Surgery | DX: I70.249 Atherosclerosis of native arteries of left leg with ulceration of unspecified site (principal) | CPT/HCPCS: 36247; 36248; 75625; 75710; 76937; 99152 ==

== ENCOUNTER 2024-03-08 09:44 | Outpatient (AMB) | payer OTHER, SELFPAY ==
[2024-03-08 09:46] VITALS: BP 174/54; PULSE 83; O2SAT 97; BMI 34.9
--- NOTE | 2024-03-08 09:46 | HO.NEPHOV_ITS ---
Vital Signs 03/08/24 09:46 Height 5 ft 6 in Weight 216 lb BMI 34.9 BP 174/54 H Blood Pressure Location Lt brachial Position Sitting Pulse 83 Pulse Source Pulse Oximeter Pulse Oximetry (%) 97 Oxygen Delivery Method Room Air Intake Visit Reasons: 4 mon follow up/ Conf Investment Sales Assistant Required: Yes Investment Sales Assistant Name: Patricio [id number] Allergies lisinopril [LISINOPRIL] Allergy (Severe, Verified 03/08/24 09:49) ANGIOEDEMA prednisone [PREDNISONE] Allergy (Mild, Verified 03/08/24 09:49) ITCHY Medication List - Last Reconciled 03/08/24 by Jd Painter MD amlodipine 10 mg PO QAM aspirin 81 mg PO DAILY blood sugar diagnostic As directed canagliflozin (Invokana) 300 mg PO QAM cetirizine 10 mg PO BID chlorthalidone 50 mg PO QAM cholecalciferol (vitamin D3) 50 mcg PO DAILY 30 days clopidogrel (Plavix) 75 mg PO DAILY flash glucose scanning reader (Xtiumyle Willy 2 [place]) As directed flash glucose sensor (FreeStyle Willy 2 Sensor kit) As directed change every 14 days gabapentin 200 mg PO BEDTIME insulin glargine U-300 conc (Toujeo Max U-300 SoloStar) 80 units (0.2667 mL) subcut BEDTIME insulin lispro (Humalog KwikPen (U-100) Insulin) Inject 30 units before b reakfast, 35 units before lunch and 35 units before dinner subcutaneously; insulin syringe-needle U-100 As directed lancets (OneTouch UltraSoft 2 Lancet) As directed lancets As directed linezolid (Zyvox) 600 mg PO Q12H metformin 1,000 mg PO BID pen needle, diabetic (UltiCare Pen Needle) USE DIRECTED FOUR TIMES DAILY pravastatin 40 mg PO BEDTIME semaglutide (Ozempic) mg subcut sennosides (senna) 17.2 mg PO DAILY PRN spironolactone 25 mg PO QAM tamsulosin 0.8 mg PO BEDTIME verapamil ER 120 mg PO QAM HPI Comments Details: 72-year-old man with a history of longstanding hypertension and diabetes mellitus with CKD. He has had episodes of acute kidney injury an currently renal function is back to baseline. Baseline creatinine is less than 1.0. He has difficult to control blood sugars. Recent A1c was 8.2%. Blood pressure has been well controlled. He has microalbuminuria. He has not any WAI inhibitor due to angioedema requiring ICU admission. He is currently on Invokana History of nontoxic multinodular goiter. Investment Sales Assistant service was used Cellulitis of left leg : s/p antibiotics 03/08/24 Doing better Seen by Dr. Smith s/p Successful plasty of left popliteal and peroneal artery on 03/07/24 [facility] Medical History NAFLD (nonalcoholic fatty liver disease) Transaminitis Basal cell carcinoma (BCC) Skin lesion of left lower extremity Heart murmur Familial hypocalciuric hypercalcemia Multinodular thyroid Vitamin D deficiency HLD (hyperlipidemia) HTN (hypertension) T2DM (type 2 diabetes mellitus) Surgical History Hx of melanoma excision Hx of esophagogastroduodenoscopy Hx of colonoscopy Hx of appendectomy Hx of cholecystectomy Family History Father CVD (cardiovascular disease) Diabetes Brother CVD (cardiovascular disease) Diabetes FH: heart attack Social History Household Members: Family Housing: House Do you presently have visiting nurse or other home services: Yes (visiting nurse 2x week) Alcohol intake: never Patient Tobacco Use Status: Never used Tobacco service: No Current occupational status: unemployed Physical Exam Vital Signs: Last Vital Signs Pulse 83 03/08/24 09:46 BP 174/54 H 03/08/24 09:46 Pulse Ox 97 03/08/24 09:46 Oxygen Delivery Method Room Air 03/08/24 09:46 BMI result Body Mass Index 34.9 Const General: comfortable; No acute distress Orientation/consciousness: patient oriented x3 Eyes General: appearance normal, both eyes and all related structures Visual Drew: normal visual drew by confrontation Neck Neck: Yes supple and Yes no JVD Resp Effort & Inspection: normal respiratory effort and respiratory effort not decre ased Auscultation: rhonchi Cardio Palpation: no palpable S3 and no palpable S4 Heart sounds: no rubs GI Inspection: Yes normal to inspection Palpation (GI): Soft to palpation Percussion: Yes normal to percussion Auscultation: normal bowel sounds General: Yes no CVA tenderness Back/Spine/Pelvis Back: no CVA tenderness Skin General skin exam: no petechiae and no purpura Neuro General: patient oriented x3 and no focal motor deficits Extrem General: No clubbing and No edema Results Reviewed Nephrology Results: Hgb 15.3 g/dl (14.0-18.0) 03/07/24 WBC 10.1 X10*3/uL (4.8-10.8) 03/07/24 Plt Count 329 X10*3/uL (160-400) 03/07/24 Sodium 141 mmol/L (135-145) 12/31/23 Potassium 3.5 mmol/L (3.3-5.1) 12/31/23 Chloride 101 mmol/L (96-108) 12/31/23 Carbon Dioxide 29 mmol/L (22-29) 12/31/23 BUN 35 mg/dL (9-16) H 03/07/24 Creatinine 1.51 mg/dL (0.5-1.4) H 03/07/24 Calcium 10.3 mg/dL (8.4-10.2) H 12/31/23 Assessment & Plan Assessment & Plan (1) CKD (chronic kidney disease): Code(s): N18.9 - Chronic kidney disease, unspecified Category: Medical Plan: Due to underlying diabetic hypertensive kidney disease. No evidence of active glomerulonephritis or obstructive uropathy. Patient's serum creatinine is less than 1.0. Goal is to slow the progression of renal disease. Continue to avoid nephrotoxic agents including NSAIDs. Continue to use SGLT 2 inhibitors for cardiorenal protection Unable to use Wai inhibitors due to history of angioedema Creatinine bumped up to 1.5 New Octavio Probably form hypoperfusion Repeat ordered (2) HTN (hypertension): Comment: Stable Code(s): I10 - Essential (primary) hypertension Category: Medical Plan: Blood pressure is acceptable Continue current regimen. Low-salt diet (3) T2DM (type 2 diabetes mellitus): Code(s): E11.9 - Type 2 diabetes mellitus without complications Category: Medical Qualifiers: Diabetes mellitus complication status: with hyperglycemia Diabetes mellitus retirement insulin use: with retirement use Qualified Code(s): E11.65 - Type 2 diabetes mellitus with hyperglycemia; Z79.4 - senior care (current) use of insulin Plan: Goal A1c less than 7% Follow with endocrinology Discussed weight Orders: Orders Complete Blood Count Auto Diff 4 Days N18.9 - Chronic kidney disease, unspecified Basic Metabolic Panel 4 Days N18.9 - Chronic kidney disease, unspecified Total Protein Urine Random 4 Days N18.9 - Chronic kidney disease, unspecified UA and rflx microscopic 4 Days N18.9 - Chronic kidney disease, unspecified Creatinine Urine 4 Days N18.9 - Chronic kidney disease, unspecified Coding Level of Care Code Est Pt Level 4 (03942) Diagnoses CKD (chronic kidney disease) N18.9 Hypertension, unspecified type I10 Type 2 diabetes mellitus with hyperglycemia, with long-term current use of insul in E11.65; Z79.4 Diabetes mellitus complication status: with hyperglycemia 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
== END 2024-03-08 10:16 | disposition home or self-care (01) ==
PROVIDERS: PCP Internal Medicine Geriatric Medicine; Visit Provider Internal Medicine Hypertension Specialist
DX: I12.9 Hypertensive chronic kidney disease with stage 1 through stage 4 chronic kidney disease, or unspecified chronic kidney disease (principal); E11.22 Type 2 diabetes mellitus with diabetic chronic kidney disease; N18.9 Chronic kidney disease, unspecified; Z79.4 Long term (current) use of insulin
CPT/HCPCS: 99214

== ENCOUNTER → 2024-03-08 09:44 | Outpatient (BNVA) | payer OTHER, SELFPAY | PROVIDERS: PCP Internal Medicine Geriatric Medicine; Visit Provider Internal Medicine Hypertension Specialist | DX: I12.9 Hypertensive chronic kidney disease with stage 1 through stage 4 chronic kidney disease, or unspecified chronic kidney disease (principal); E11.22 Type 2 diabetes mellitus with diabetic chronic kidney disease; E11.65 Type 2 diabetes mellitus with hyperglycemia; N18.9 Chronic kidney disease, unspecified; Z79.4 Long term (current) use of insulin | CPT/HCPCS: 99212 ==

== ENCOUNTER 2024-03-12 07:47 | Outpatient (REF) | payer OTHER, SELFPAY ==
[2024-03-12 08:05] LABS: MANUAL DIFF FLAG NO
[2024-03-12 08:33] LABS: Basophils Absolute Auto 0.1 X10*3/uL (0.0-0.2); Basophils Percent Auto 0.5 % (0-2); Eosinophils Absolute Auto 0.2 X10*3/uL (0.0-0.4); Eosinophils Percent Auto 1.7 % (0-4); Hematocrit 48.2 % (42.0-52.0); Hemoglobin 15.8 g/dl (14.0-18.0); Imm Gran Abs Auto 0.05 X10*3/uL (0.00-0.03); Imm Gran Pct Auto 0.5 % (0.0-0.4); Lymphocytes Absolute Auto 2.6 X10*3/uL (1.2-4.9); Mean Corpuscular HGB Conc 32.8 g/dl (31.0-36.0); Mean Corpuscular Hemoglobin 29.2 pg (27.0-33.0); Mean Corpuscular Volume 88.9 fL (80.0-98.0); Mean Platelet Volume 10.5 fL (9.4-12.4); Monocytes Absolute Auto 0.8 X10*3/uL (0.1-1.2); Monocytes Percent Auto 8.3 % (2-11); Neutrophils Absolute Auto 6.3 x10*3/uL (2.0-8.3); Platelet Count 307 X10*3/uL (160-400); Red Blood Count 5.42 X10*6/uL (4.60-5.80)
[2024-03-12 08:54] LABS: Alanine Aminotransferase 59 U/L (0-40); Alkaline Phosphatase 73 U/L (39-117); Anion Gap 12 (12-20); Aspartate Amino Transferase 37 U/L (5-37); Bilirubin Total 0.4 mg/dL (0.0-1.0); Blood Urea Nitrogen 26 mg/dL (9-16); Calcium 10.3 mg/dL (8.4-10.2); Carbon Dioxide 30 mmol/L (22-29); Chloride 101 mmol/L (96-108); Estimated Glomerular Filt Rate 50; Glucose Random 257 mg/dL (60-115); Sodium 139 mmol/L (135-145); Total Protein 8.1 g/dL (6.5-8.0)
[2024-03-12 09:41] LABS: Appearance Urine Clear; Color Urine Yellow; Glucose Urine UA >=1000 mg/dL (Negative); Leukocyte Esterase Urine Negative (Negative); Nitrite Urine Negative (Negative); PH 5.5 (5.0-9.0); UMIC TRIGGER UA YES; Urine Blood Negative (Negative); Urine Ketones Negative (Negative); Urine Protein 100 (2+) mg/dL (Neg-Trace)
[2024-03-12 10:06] LABS: Creatinine Urine 66.91 mg/dL; Total Protein Urine Random 96 mg/dL (<12)
[2024-03-12 10:07] LABS: Bacteria Urine None Seen (None Seen); Hyaline Casts Urine 0-2 /LPF (0-2); RBC Urine 0-2 /HPF (0-2); Squamous Epithelial Cell Urine 0-2 /HPF (0-2); WBC Urine 0-5 /HPF (0-5)
== END 2024-03-12 07:48 | disposition home or self-care (01) ==
LOC: HO.LAB 07:47
PROVIDERS: Absent Provider Physician Assistant; PCP Internal Medicine Geriatric Medicine; Visit Provider Internal Medicine Hypertension Specialist
DX: N18.9 Chronic kidney disease, unspecified (principal); K76.0 Fatty (change of) liver, not elsewhere classified
CPT/HCPCS: 36415; 80053; 81001; 82570; 84156; 85025

== ENCOUNTER 2024-03-22 11:17 | Outpatient (AMB) | payer OTHER, SELFPAY ==
[2024-03-22 11:23] VITALS: BMI 34.9
--- NOTE | 2024-03-22 11:23 | MHC.OFFVIS ---
Vital Signs 03/22/24 11:23 Height 5 ft 6 in Weight 216 lb BMI 34.9 Intake Visit Reasons: 2 week follow up left angiogram Intake Note: Pt states he still has LE pain and redness s/p Left LE ANgio 03/07/24. Pt states Right Groing pain Accompanied by: Self / Same As Patient Allergies lisinopril [LISINOPRIL] Allergy (Severe, Verified 03/22/24 11:24) ANGIOEDEMA prednisone [PREDNISONE] Allergy (Mild, Verified 03/22/24 11:24) ITCHY HPI HPI 2 week follow up left angiogram: Details: Very pleasant 73-year-old gentleman presents for follow-up regarding peripheral vascular disease. He underwent left lower extremity endovascular intervention on 03/07/2024. Patient now presents for routine postprocedure follow-up. [facility] Medical History NAFLD (nonalcoholic fatty liver disease) Transaminitis Basal cell carcinoma (BCC) Skin lesion of left lower extremity Heart murmur Familial hypocalciuric hypercalcemia Multinodular thyroid Vitamin D deficiency HLD (hyperlipidemia) HTN (hypertension) T2DM (type 2 diabetes mellitus) Surgical History Hx of melanoma excision Hx of esophagogastroduodenoscopy Hx of colonoscopy Hx of appendectomy Hx of cholecystectomy Family History Father CVD (cardiovascular disease) Diabetes Brother CVD (cardiovascular disease) Diabetes FH: heart attack Social History Household Members: Family Housing: House Do you presently have visiting nurse or other home services: Yes (visiting nurse 2x week) Alcohol intake: never Patient Tobacco Use Status: Never used Tobacco service: No Current occupational status: unemployed Review of Systems Const All systems reviewed & are unremarkable except as noted in HPI and below Reports no additional complaints ENT Reports Normal hearing present Card Denies chest pain, Denies chest pain at rest, Denies chest pain with activity and Denies pedal edema Resp Denies cough GI Denies abdominal pain Musc Denies abnormal gait, Denies muscle cramps and Denies radiating pain into limb Skin/Breast Denies skin ulcer and Denies wounds Neuro Reports Normal hearing present and Denies abnormal gait Psych Reports no additional complaints Physical Exam Vital Signs: BMI result Body Mass Index 34.9 Const General: cooperative, healthy appearing and comfortable Orientation/consciousness: oriented to person, oriented to place and oriented to time HEENT Head: Yes normal to inspection Neck Neck: Yes normal visual inspection Carotids: no bruits Chest Chest palpation & inspection: normal inspection of the chest Resp Effort & Inspection: normal respiratory effort and able to speak in complete sentences Auscultation: clear to auscultation bilaterally, no crackles, no rales, no rhonchi and no wheezes Cardio Other: Bilateral DP signals Rate: regular rate Rhythm: regular rhythm Heart sounds: S1 normal heart sound present and S2 normal heart sound present Bruits: no carotid bruits GI Inspection: Yes normal to inspection Skin Wounds: no wounds Hair: normal Neuro General: oriented to person, oriented to place and oriented to time Cranial nerves: Yes CN's II-XII intact bilaterally and Yes Normal hearing present Cognition (Neuro): normal cognition Motor exam (neuro): 5/5 motor strength present throughout Extrem Other: venous exam: No significant superficial varicosities or spider telangiectasias, minimal edema General: No clubbing, No cyanosis and No edema Psych Appearance: grossly normal Mental Status: mental status grossly normal Speech and movement: Normal speech and movement present Assessment & Plan Assessment & Plan (1) PAD (peripheral artery disease): Comment: 03/07/2024 - left popliteal and peroneal artery plasty Code(s): I73.9 - Peripheral vascular disease, unspecified Category: Medical Plan: In short patient is doing well status post endovascular intervention. We will continue with 3 month arterial surveillance. He will require 6 months of aspirin and Plavix. He does have concerns of his right lower extremity and may readdress that in 3 months. He is currently ambulating well and we will see him back with noninvasive testing. Thank you for allowing us to assist in his care. If there are any questions or concerns please do not hesitate to contact us. Orders: Orders US arterial duplex LE BI 3 Months I73.9 - Peripheral vascular disease, unspecified Coding Level of Care Code Est Pt Level 3 (25380) Complex EM visit Add On G2211 Diagnoses PAD (peripheral artery disease) I73.9
== END 2024-03-22 11:33 | disposition home or self-care (01) ==
PROVIDERS: PCP Internal Medicine Geriatric Medicine; Visit Provider Surgery Vascular Surgery
DX: I73.9 Peripheral vascular disease, unspecified (principal)
CPT/HCPCS: 99213; G2211

== ENCOUNTER → 2024-03-22 11:17 | Outpatient (BNVA) | payer OTHER, SELFPAY | PROVIDERS: PCP Internal Medicine Geriatric Medicine; Visit Provider Surgery Vascular Surgery | DX: I73.9 Peripheral vascular disease, unspecified (principal) | CPT/HCPCS: 99212 ==

== ENCOUNTER 2024-04-23 09:53 | Outpatient (AMB) | payer OTHER, SELFPAY ==
[2024-04-23 10:06] VITALS: BP 146/64; PULSE 73; O2SAT 97; BMI 35.2
--- NOTE | 2024-04-23 10:06 | HO.NEPHOV_ITS ---
Vital Signs 04/23/24 10:06 Height 5 ft 6 in Weight 218 lb BMI 35.2 BP 146/64 H Blood Pressure Location Lt brachial Position Sitting Pulse 73 Pulse Source Pulse Oximeter Pulse Oximetry (%) 97 Oxygen Delivery Method Room Air Intake Visit Reasons: CKD/ Conf Wreath Machine Operator Required: Yes Wreath Machine Operator Name: [id number] Wendy Accompanied by: Self / Same As Patient Allergies lisinopril [LISINOPRIL] Allergy (Severe, Verified 04/23/24 10:08) ANGIOEDEMA prednisone [PREDNISONE] Allergy (Mild, Verified 04/23/24 10:08) ITCHY Medication List - Last Reconciled 04/23/24 by Jd Painter MD amlodipine 10 mg PO QAM aspirin 81 mg PO DAILY blood sugar diagnostic As directed canagliflozin (Invokana) 300 mg PO QAM chlorthalidone 50 mg PO QAM clopidogrel (Plavix) 75 mg PO DAILY flash glucose scanning reader ([employer] Willy 2 [place]) As directed flash glucose sensor (FreeStyle Willy 2 Sensor kit) As directed change every 14 days gabapentin 200 mg PO BEDTIME insulin glargine U-300 conc (Toujeo Max U-300 SoloStar) 80 units (0.2667 mL) subcut BEDTIME insulin lispro (Humalog KwikPen (U-100) Insulin) Inject 30 units before breakfast, 35 units before lunch and 35 units before dinner subcutaneously; insulin syringe-needle U-100 As directed lancets (OneTouch UltraSoft 2 Lancet) As directed lancets As directed linezolid (Zyvox) 600 mg PO Q12H metformin 1,000 mg PO BID pen needle, diabetic (UltiCare Pen Needle) USE DIRECTED FOUR TIMES DAILY pravastatin 40 mg PO BEDTIME sennosides (senna) 17.2 mg PO DAILY PRN spironolactone 25 mg PO QAM tamsulosin 0.8 mg PO BEDTIME verapamil ER 120 mg PO QAM HPI Comments Details: 72-year-old man with a history of longstanding hypertension and diabetes mellitus with CKD. He has had episodes of acute kidney injury an currently renal function is back to baseline. Baseline creatinine is less than 1.0. He has difficult to control blood sugars. Recent A1c was 8.2%. Blood pressure has been well controlled. He has microalbuminuria. He has not any WAI inhibitor due to angioedema requiring ICU admission. He is currently on Invokana History of nontoxic multinodular goiter. Wreath Machine Operator service was used Cellulitis of left leg : s/p antibiotics 03/08/24 Doing better Seen by Dr. Smith s/p Successful plasty of left popliteal and peroneal artery on 03/07/24 04/23/24 c/o body pain On statins [facility] Medical History NAFLD (nonalcoholic fatty liver disease) Transaminitis Basal cell carcinoma (BCC) Skin lesion of left lower extremity Heart murmur Familial hypocalciuric hypercalcemia Multinodular thyroid Vitamin D deficiency HLD (hyperlipidemia) HTN (hypertension) T2DM (type 2 diabetes mellitus) Surgical History Hx of melanoma excision Hx of esophagogastroduodenoscopy Hx of colonoscopy Hx of appendectomy Hx of cholecystectomy Family History Father CVD (cardiovascular disease) Diabetes Brother CVD (cardiovascular disease) Diabetes FH: heart attack Social History Household Members: Family Housing: House Do you presently have visiting nurse or other home services: Yes (visiting julissa se 2x week) Alcohol intake: never Patient Tobacco Use Status: Never used Tobacco service: No Current occupational status: unemployed Physical Exam Vital Signs: Last Vital Signs Pulse 73 04/23/24 10:06 BP 146/64 H 04/23/24 10:06 Pulse Ox 97 04/23/24 10:06 Oxygen Delivery Method Room Air 04/23/24 10:06 BMI result Body Mass Index 35.2 Const General: comfortable; No acute distress Orientation/consciousness: patient oriented x3 Eyes General: appearance normal, both eyes and all related structures Visual Drew: normal visual drew by confrontation Neck Neck: Yes supple and Yes no JVD Resp Effort & Inspection: normal respiratory effort and respiratory effort not decreased Auscultation: rhonchi Cardio Palpation: no palpable S3 and no palpable S4 Heart sounds: no rubs GI Inspection: Yes normal to inspection Palpation (GI): Soft to palpation Percussion: Yes normal to percussion Auscultation: normal bowel sounds General: Yes no CVA tenderness Back/Spine/Pelvis Back: no CVA tenderness Skin General skin exam: no petechiae and no purpura Neuro General: patient oriented x3 and no focal motor deficits Extrem General: No clubbing and No edema Results Reviewed Nephrology Results: Hgb 15.8 g/dl (14.0-18.0) 03/12/24 WBC 10.0 X10*3/uL (4.8-10.8) 03/12/24 Plt Count 307 X10*3/uL (160-400) 03/12/24 Sodium 139 mmol/L (135-145) 03/12/24 Potassium 4.0 mmol/L (3.3-5.1) 03/12/24 Chloride 101 mmol/L (96-108) 03/12/24 Carbon Dioxide 30 mmol/L (22-29) H 03/12/24 BUN 26 mg/dL (9-16) H 03/12/24 Creatinine 1.40 mg/dL (0.5-1.4) 03/12/24 Calcium 10.3 mg/dL (8.4-10.2) H 03/12/24 Urine Protein 100 (2+) mg/dL (Neg-Trace) H 03/12/24 Urine Creatinine 66.91 mg/dL 03/12/24 Assessment & Plan Assessment & Plan (1) CKD (chronic kidney disease): Code(s): N18.9 - Chronic kidney disease, unspecified Category: Medical Plan: Due to underlying diabetic hypertensive kidney disease. No evidence of active glomerulonephritis or obstructive uropathy. Patient's serum creatinine is less than 1.0. Goal is to slow the progression of renal disease. Continue to avoid nephrotoxic agents including NSAIDs. Continue to use SGLT 2 inhibitors for cardiorenal protection Unable to use Wai inhibitors due to history of angioedema Creatinine bumped up to 1.5 Probably form hypoperfusion post operative Creatinine has improved (2) HTN (hypertension): Comment: Stable Code(s): I10 - Essential (primary) hypertension Category: Medical Plan: Blood pressure is acceptable Continue current regimen. Low-salt diet (3) T2DM (type 2 diabetes mellitus): Code(s): E11.9 - Type 2 diabetes mellitus without complications Category: Medical Qualifiers: Diabetes mellitus assisted insulin use: with termite exterminator use Diabetes mellitus complication status: with hyperglycemia Qualified Code(s): E11.65 - Type 2 diabetes mellitus with hyperglycemia; Z79.4 - senior care (current) use of insulin Plan: Goal A1c less than 7% Follow with endocrinology Discussed weight (4) Hypercalcemia: Code(s): E83.52 - Hypercalcemia Category: Medical Plan: check iPTH and SPEP Orders: Orders Protein Electrophoresis, Serum 3 Months E83.52 - Hypercalcemia, N18.9 - Chronic kidney disease, unspecified Basic Metabolic Panel 3 Months E83.52 - Hypercalcemia, N18.9 - Chronic kidney disease, unspecified Parathyroid Hormone Intact 3 Months E83.52 - Hypercalcemia, N18.9 - Chronic kidney disease, unspecified Coding Level of Care Code Est Pt Level 4 (33233) Diagnoses CKD (chronic kidney disease) N18.9 Hypertension, unspecified type I10 Type 2 diabetes mellitus with hyperglycemia, with long-term current use of insulin E11.65; Z79.4 Diabetes mellitus termite exterminator insulin use: with termite exterminator use Diabetes mellitus complication status: with hyperglycemia Hypercalcemia E83.52
== END 2024-04-23 10:22 | disposition home or self-care (01) ==
PROVIDERS: PCP Internal Medicine Geriatric Medicine; Visit Provider Internal Medicine Hypertension Specialist
DX: I12.9 Hypertensive chronic kidney disease with stage 1 through stage 4 chronic kidney disease, or unspecified chronic kidney disease (principal); E11.22 Type 2 diabetes mellitus with diabetic chronic kidney disease; N18.9 Chronic kidney disease, unspecified; Z79.4 Long term (current) use of insulin; E83.52 Hypercalcemia
CPT/HCPCS: 99214

== ENCOUNTER → 2024-04-23 09:53 | Outpatient (BNVA) | payer OTHER, SELFPAY | PROVIDERS: PCP Internal Medicine Geriatric Medicine; Visit Provider Internal Medicine Hypertension Specialist | DX: E11.22 Type 2 diabetes mellitus with diabetic chronic kidney disease (principal); E11.65 Type 2 diabetes mellitus with hyperglycemia; I12.9 Hypertensive chronic kidney disease with stage 1 through stage 4 chronic kidney disease, or unspecified chronic kidney disease; N18.9 Chronic kidney disease, unspecified; E83.52 Hypercalcemia; Z79.4 Long term (current) use of insulin | CPT/HCPCS: 99212 ==

== ENCOUNTER 2024-05-24 08:05 | Outpatient (REF) | payer OTHER, SELFPAY ==
--- OUTSIDE RECORDS SUMMARY | 2024-05-24 08:11 | XMS_ITS | Continuity of Care Document ---
Author Organization [facility] - [facility], [facility] Address [address] [place] [address] Care Team Providers Care Ragman Name Role Phone NAME, LAURENT Primary Care Provider Assessment Encounter Date Assessment Date Assessment LastModified by Organization Details LastModified Time 05/03/2024 05/03/2024 1. Bilateral vocal cord paralysis 2. Dysphonia 73yo gentleman who presents for evaluation of dysphonia in the setting of traumatic intubation during an analphylactic reaction in 2019. He has had resultant bilateral vocal cord paralysis since 2019. He continues to have worsening vocal quality with dyspnea on exertion and with speaking. He has not been offered options of more permanent surgical procedures, such as medialization, to help his vocal quality. I recommended he see a radio personality, voice specalist, to evaluate him and see if he would be a good candidate for a more permanent medialization procedure. Patient is willing and interested to travel to [place] to hear options. - Referral to [facility] Otolaryngology - Dr. Stafford or Dr. Machuca for discussion [email or web address] Not available 05/04/2024 08:27:45 Plan of Treatment Reminders Order Date Submit Date Provider Last Modified By Organization Details Last Modified Time Details Appointments None recorded. Lab None recorded. Referral otolaryngol ogist referral - Attn: Betsy. Dr. Machuca or Dr. Stafford - bilateral vocal cord paralysis. 2023 024 [email or web address] 2 [facility] Otolaryngolog y, [address] [facility], [facility], [place], [address], 12/03/202 4 10:41:11 Procedures None recorded. Surgeries None recorded. Imaging None recorded. Medication Orders None recorded. Patient TargetsNo targets recorded. Patient InstructionsNo instructions recorded. Reason for Referral Physician Relations Representative Referral fo r Dysphonia Attn: Birgit. Dr. Machuca or Dr. Stafford - bilateral vocal cord paralysis. Referring Physician: Ryan Maya, Otolaryngology, Encounter Date: 05/03/2024 Problems Name Problem SNOMED Code Status Onset Date Resolution Date Notes Provider Name and Address Organization Details Recorded Time Paralysis of larynx 75803954 Active 2018 Paralysis of vocal cords and larynx, unspecifie d; Note: Date Diagnosed: 12/25/2018 2:49 PM (J38.00) Not Available [facility] 4 03:24:49 Dysphonia 80188903 Active 2018 Hoarseness ; Note: Date Diagnosed: 12/25/2018 2:49 PM (R49.0) Not Available [facility] 4 03:24:49 Simple goiter 192363013 Active 2018 Goiter NOS; Note: Date Diagnosed: 12/25/2018 2:49 PM (E04.9) Not Available [facility] 4 03:24:49 Paralysis of larynx 11693947 Active 2023 RYAN MAYA MD [address] [place] [address], [phone] , [facility] 4 08:24:41 Problem Notes None recorded. Procedures Surgical History Date Name Laterality Status Provider Name and Address Organization Details Recorded Time 05/03/20 24 Fiberoptic Laryngoscopy (Comprehensive) completed RYAN MAYA MD [address] [place] [address], [phone], [facility] 05/04/2024 08:24:07 Imaging Results None recorded. Procedure Notes None recorded. Medical Equipment None Reported. Medications Name Sig Start Date Stop Date Status Note LastModified by Organization Details LastModified Time medbox status USE DIRECTED active Not Available Not Available No t Available verapamil ER (SR) 120 mg tablet,exten ded release TAKE 1 TABLET BY MOUTH EVERY MORNING WITH FOOD active Not Available Not Available No t Available doxycycline hyclate 100 mg capsule TAKE 1 CAPSULE BY MOUTH TWICE A DAY X 10 DAYS active Not Available Not Available No t Available cetirizine 10 mg tablet TAKE 1 TABLET BY MOUTH TWICE DAILY active Not Available Not Available No t Available pravastatin 40 mg tablet TAKE 1 TABLET BY MOUTH AT BEDTIME active Not Available Not Available No t Available senna 8.6 mg tablet TAKE 2 TABLETS BY MOUTH EVERY DAY AT BEDTIME active Not Available Not Available No t Available clopidogrel 75 mg tablet TAKE 1 TABLET BY MOUTH EVERY MORNING active Not Available Not Available No t Available amlodipine 5 mg tablet TAKE 1 TABLET BY MOUTH EVERY MORNING active Not Available Not Available No t Available chlorthalido ne 50 mg tablet TAKE 1 TABLET BY MOUTH EVERY MORNING active Not Available Not Available No t Available aspirin 81 mg tablet,delay ed release TAKE 1 TABLET BY MOUTH EVERYDAY AT NOON active Not Available Not Available No t Available triamcinolon e acetonide 0.1 % topical cream APPLY TOPICALLY TO THE AFFECTED AREA(S) TWICE DAILY IN THE MORNING AND IN THE EVENING NEEDED FOR PAIN AND SWELLING active Not Available Not Available No t Available spironolacto ne 25 mg tablet TAKE 1 TABLET BY MOUTH EVERY MORNING active Not Available Not Available No t Available Deep Sea Nasal 0.65 % spray aerosol USE 1 SPRAY IN EACH NOSTRIL NEEDED FOR NASAL CONGESTION active Not Available Not Available N ot Available tamsulosin 0.4 mg capsule TAKE 2 CAPSULES BY MOUTH EVERY DAY AT BEDTIME (1/2 HOUR AFTER DINNER) active Not Available Not Available No t Available linezolid 600 mg tablet TAKE 1 TABLET BY MOUTH TWICE DAILY FOR 7 DAYS active Not Available Not Available No t Available OneTouch Ultra Test strips TEST BLOOD SUGAR THREE TIMES DAILY active Not Available Not Available Not Available amlodipine 10 mg tablet TAKE 1 TABLET BY MOUTH EVERY MORNING active Not Available Not Available No t Available cephalexin 500 mg capsule TAKE 1 CAPSULE BY MOUTH FOUR TIMES DAILY FOR 7 DAYS active Not Available Not Available N ot Available metformin 1,000 mg tablet TAKE 1 TABLET BY MOUTH TWICE DAILY AT NOON AND IN THE EVENING BEFORE MEALS active Not Available Not Available No t Available docusate sodium 100 mg capsule TAKE 2 CAPSULES BY MOUTH EVERY DAY AT BEDTIME active Not Available Not Available No t Available mometasone 0.1 % topical ointment APPLY 1 GRAM TOPICALLY ONCE DAILY active Not Available Not Available N ot Available gabapentin 100 mg capsule TAKE 2 CAPSULES BY MOUTH EVERY DAY AT BEDTIME active Not Available Not Available No t Available polyethylene glycol 3350 17 gram/dose oral powder TAKE 17 GM MIXED IN 8 OUNCES OF WATER ONCE DAILY active Not Available Not Available No t Available doxycycline hyclate 100 mg tablet TAKE 1 TABLET BY MOUTH TWICE DAILY FOR 7 DAYS. TAKE WITH A FULL GLASS OF WATER. Do not lie down for 30 minutes after taking active Not Available Not Available No t Available Alcohol Prep Pads USE DIRECTED FOUR TIMES DAILY active Not Available Not Available No t Available lactulose 10 gram/15 mL oral solution TAKE 15 ML BY MOUTH EVERY DAY active Not Available Not Available No t Available Humalog KwikPen (U-100) Insulin 100 unit/mL subcutaneous INJECT 40 UNITS SUBCUTANEOU SLY BEFORE BREAKFAST, 35 UNITS BEFORE LUNCH, AND 35 UNITS BEFORE SUPPER active Not Available Not Available No t Available Vitamin D3 50 mcg (2,000 unit) capsule TAKE 1 CAPSULE BY MOUTH EVERYDAY AT NOON active Not Available Not Available No t Available Invokana 100 mg tablet TAKE 1 TABLET BY MOUTH EVERY MORNING BEFORE BREAKFAST active Not Available Not Available No t Available Invokana 300 mg tablet TAKE 1 TABLET BY MOUTH EVERY MORNING active Not Available Not Available No t Available Victoza 3-Beto 0.6 mg/0.1 mL (18 mg/3 mL) subcutaneous pen injector INJECT 1.8mg SUBCUTANEOU SLY ONCE DAILY DIRECTED active Not Available Not Available No t Available Pentips Pen Needle 32 gauge x 5/32 USE DIRECTED FOUR TIMES DAILY active Not Available Not Available No t Available Toujeo Max U-300 SoloStar 300 unit/mL (3 mL) subcutaneous insulin pen INJECT 80 UNITS SUBCUTANEOU SLY AT BEDTIME active Not Available Not Available No t Available FreeStyle Willy 2 Sensor kit USE DIRECTED CHANGE EVERY 14 DAYS active Not Available Not Available No t Available Ozempic 0.25 mg or 0.5 mg (2 mg/3 mL) subcutaneous pen injector INJECT 0.25 MG SUBCUTANEOU SLY ONCE A WEEK FOR 4 WEEKS THEN INCREASE TO 0.5 MG ONCE A WEEK active Not Available Not Available No t Available OneTouch UltraSoft 2 Lancet 30 gauge TEST BLOOD SUGAR THREE TIMES DAILY active Not Available Not Available Not Available Vitals Date Recorded Body height Body mass index (BMI) Body weight Provider Name and Address Organization Details Last Updated DateTime 05/03/2024 167.64 cm 34.7 kg/m2 41883.36 g Kathie Ramírez [place] - [facility] 05/03/2024 13:28:04 Social History None recorded. Functional Status None recorded. Mental Status None recorded. Family History Nothing Reported. Medical History No medical history recorded. Past Encounters Encounter ID Performer Location Encounter Start Date Encounter Closed Date Diagnosis/Indication Diagnosis SNOMED-CT Code Diagnosis ICD10 Code [id number] RYAN MAYA MD [facility] [address] [address] 05/03/2024 13:04:26 05/03/2024 16:54:58 Paralysis of larynx 83943562 J38.02 Dysphonia 17209523 R49.9 Health Concerns Section Related Observation LastModified by Organization Detai ls LastModified Time None Recorded Concern Status LastModified by Organization Details LastModified Time None Recorded Payers Encounter Date Sequence Insurance Name Policy Number Policy Hood Covered Member ID Hood Member ID Guarantor Name 05/03/2024 1 [facility] (MEDICARE REPLACEMENT/A DVANTAGE - HMO) Josue Mace [id number] Josue Mace 05/03/2024 2 [place] [facility] Josue Mace [id number] Josue Mace Notes Date Note Type Note Provider Name and Address Organization Details Recorded Time 05/03/2024 text/html 73yo gentleman rodrigo miguel presents today for evaluation of bilateral vocal cord paralysis and dysphonia. He has had difficulty with his voice for about 5 years. He underwent a traumatic intubation at [facility] in 2018 in the setting of an anaphylactic event. Following, this resulted in dysphonia and dyspnea with exertion. He was seen by otolaryngology in [place] - Dr. John Coppola. At that time, he was told he had the option of injection medialization, but this was not advised due to the patient's medical status. Since that time he underwent a thyroidectomy in 2019 for a thyroid goiter. Today he presents for re-evaluation of his voice. He was last seen by Dr. Coppola in 2021. Since that time he has noticed worsening of his voice. He has dyspnea with speaking. He denies dysphagia, odynophagia, cough. He reports he has been using his voice more and more, and this has resulted in him noticing his poor vocal quality. He becomes out of breath and fatigued with vocal use. He has a history of HTN (amlodipine), diabetes, CKD stage 3, aortic stenosis, nonfatty liver disease, he takes aspirin 81 & clopidogrel. RYAN MAYA MD [address] [place] [address], [phone], [facility] - [facility] 05/04/2024 20:31:01
--- OUTSIDE RECORDS SUMMARY | 2024-05-24 08:11 | XMS_ITS | Data Portability ---
Author Organization [place] - [facility], Allergy Address [address] [address] Care Team Providers Care Service Desk Agent Name Role Phone NAME, LAURENT Primary Care Provider [phone] Assessment Encounter Date Assessment Date Assessment LastModified [...] vocal quality. I recommended he see a dishwasher preparer, voice specalist, to evaluate him and see if he would be a good candidate for a more permanent medialization procedure. Patient is willing and interested to travel to [place] to hear options. - Referral to [facility] Otolaryngology - Dr. Stafford or Dr. Machuca for discussion [email or web address] Not available 05/04/2024 08:27:45 Plan of Treatment Reminders Order Date Submit Date Provider Last Modified By Organization Details Last Modified Time Details Appointments None recorded. Lab None recorded. Referral otolaryngol ogist referral - Attn: Betsy. Dr. Machuca or Dr. Stafford - bilateral vocal cord paralysis. 2023 024 [email or web address] 2 [facility] Otolaryngolog y, [address], [place], [address], 4 10:41:11 Procedures None recorded. Surgeries None recorded. Imaging None recorded. Medication Orders None recorded. Patient TargetsNo targets recorded. Patient InstructionsNo instructions recorded. Reason for Referral Assembler Seat Referral fo r Dysphonia Attn: Birgit. Dr. Machuca or Dr. Stafford - bilateral vocal cord paralysis. Referring Physician: Ryan Maya, Otolaryngology, Encounter Date: 05/03/2024 Problems Name Problem SNOMED Code Status Onset Date Resolution Date Notes Provider Name and Address Organization Details Recorded Time Paralysis of larynx 92607604 Active 2018 Paralysis of vocal cords and larynx, unspecifie d; Note: Date Diagnosed: 12/25/2018 2:49 PM (J38.00) Not Available [facility] 4 03:24:49 Dysphonia 06246823 Active 2018 Hoarseness ; Note: Date Diagnosed: 12/25/2018 2:49 PM (R49.0) Not Available [facility] 4 03:24:49 Simple goiter 351369931 Active 2018 Goiter NOS; Note: Date Diagnosed: 12/25/2018 2:49 PM (E04.9) Not Available [facility] 4 03:24:49 Paralysis of larynx 80839694 Active 2023 RYAN MAYA MD [address] [place] [address], [phone] , [facility] 4 08:24:41 Problem Notes None recorded. Procedures Surgical History Date Name Laterality Status Provider Name and Address Organization Details Recorded Time 05/03/20 24 Fiberoptic Laryngoscopy (Comprehensive) completed RYAN MAYA MD [address] [place] [address], [phone], [facility] 05/04/2024 08:24:07 Imaging Results None recorded. Procedure [...] Updated DateTime 05/03/2024 167.64 cm 34.7 kg/m2 89085.36 g Kathie Ramírez [place] - [facility] 05/03/2024 13:28:04 Social History None recorded. Functional Status None recorded. Mental Status None recorded. Family History Nothing Reported. Medical History No medical history recorded. Past Encounters Encounter ID Performer Location Encounter Start Date Encounter Closed Date Diagnosis/Indication Diagnosis SNOMED-CT Code Diagnosis ICD10 Code [id number] RYAN MAYA MD [facility] [address] [address] 05/03/2024 13:04:26 05/03/2024 16:54:58 Paralysis of larynx 19113459 J38.02 Dysphonia 09876488 R49.9 Health Concerns Section Related Observation LastModified by Organization Detai ls LastModified Time None Recorded Concern Status LastModified by Organization Details LastModified Time None Recorded Advance Directives Directive None Recorded Payers Encounter Date Sequence Insurance Name Policy Number Policy Hood Covered Member ID Hood Member ID Guarantor Name 05/03/2024 1 [facility] (MEDICARE REPLACEMENT/A DVANTAGE - HMO) Josue Mace [id number] Josue Mace 05/03/2024 2 [place] [facility] Josue Mace [id number] Josue Mace Notes Date Note Type Note Provider Name and Address Organization Details Recorded Time 05/03/2024 text/html 73yo gentleman rodrigo miguel presents today for evaluation of bilateral vocal cord paralysis and dysphonia. He has had difficulty with his voice for about 5 years. He underwent a traumatic intubation at [facility] in 2018 in the setting of an anaphylactic event. Following, this resulted in dysphonia and dyspnea with exertion. He was seen by otolaryngology in [place] - Dr. John Coppola. At that time, [...] aspirin 81 & clopidogrel. RYAN MAYA MD [address] [place] [address], [phone], [facility] - [facility] 05/04/2024 20:31:01
[2024-05-24 09:15] LABS: Appearance Urine Clear; Color Urine Yellow; Glucose Urine UA >=1000 mg/dL (Negative); Leukocyte Esterase Urine Negative (Negative); Nitrite Urine Negative (Negative); PH 6.5 (5.0-9.0); Specific Gravity - Urine 1.025 (1.005-1.025); UMIC TRIGGER UA YES; Urine Blood Negative (Negative); Urine Ketones Negative (Negative); Urine Protein 100 (2+) mg/dL (Neg-Trace)
[2024-05-24 09:20] LABS: Bacteria Urine None Seen (None Seen); Hyaline Casts Urine 0-2 /LPF (0-2); RBC Urine 0-2 /HPF (0-2); Squamous Epithelial Cell Urine 0-2 /HPF (0-2); WBC Urine 0-5 /HPF (0-5)
[2024-05-24 09:36] LABS: Anion Gap 16 (12-20); Blood Urea Nitrogen 27 mg/dL (9-16); Calcium 9.7 mg/dL (8.4-10.2); Carbon Dioxide 26 mmol/L (22-29); Chloride 102 mmol/L (96-108); Cholesterol 162 mg/dL (<200); Estimated Glomerular Filt Rate 51; Glucose Random 349 mg/dL (60-115); HDL Cholesterol 37 mg/dL (>40); LDL Cholesterol Calculated 88 mg/dL (<100); Potassium 3.9 mmol/L (3.3-5.1); Sodium 140 mmol/L (135-145); Triglycerides 185 mg/dL (<150)
== END 2024-05-24 08:06 | disposition home or self-care (01) ==
LOC: HO.LAB 08:05
PROVIDERS: Absent Provider Internal Medicine Hypertension Specialist; PCP Internal Medicine Geriatric Medicine; Visit Provider Internal Medicine Geriatric Medicine
DX: N18.9 Chronic kidney disease, unspecified (principal); Z79.899 Other long term (current) drug therapy
CPT/HCPCS: 36415; 80048; 80061; 81001

== ENCOUNTER 2024-06-11 09:10 | Outpatient (AMB) | payer OTHER, SELFPAY ==
--- OUTSIDE RECORDS SUMMARY | 2024-06-11 09:13 | XMS_ITS | Continuity of Care Document ---
Author Organization [facility] - [facility], [facility] Address [address] [place] [address] Care Team Providers Care Surfacing Machine Operator Name Role Phone NAME, LAURENT Primary Care Provider [phone] Assessment Encounter Date Assessment Date Assessment LastModified [...] vocal quality. I recommended he see a power builder developer, voice specalist, to evaluate him and see if he would be a good candidate for a more permanent medialization procedure. Patient is willing and interested to travel to [place] to hear options. - Referral to [facility] Otolaryngology - Dr. Stafford or Dr. Machuca for discussion [email or web address] Not available 05/04/2024 08:27:45 Plan of Treatment Reminders Order Date Submit Date Provider Last Modified By Organization Details Last Modified Time Details Appointments None recorded. Lab None recorded. Referral otolaryngol ogist referral - Attn: Betsy. Dr. Machuca or Dr. Stafford - bilateral vocal cord paralysis. 2023 024 [email or web address] 2 [facility] Otolaryngolog y, [address] [facility], [facility], [place], [address], 12/03/202 4 10:41:11 Procedures None recorded. Surgeries None recorded. Imaging None recorded. Medication Orders None recorded. Patient TargetsNo targets recorded. Patient InstructionsNo instructions recorded. 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 Dr. Machuca or Dr. Stafford - bilateral vocal cord paralysis. Referring Physician: Ryan Maya, Otolaryngology, Encounter Date: 05/03/2024 Problems Name Problem SNOMED Code Status Onset Date Resolution Date Notes Provider Name and Address Organization Details Recorded Time Paralysis of larynx 06997593 Active 2018 Paralysis of vocal cords and larynx, unspecifie d; Note: Date Diagnosed: 12/25/2018 2:49 PM (J38.00) Not Available [facility] 4 03:24:49 Dysphonia 60725335 Active 2018 Hoarseness ; Note: Date Diagnosed: 12/25/2018 2:49 PM (R49.0) Not Available [facility] 4 03:24:49 Simple goiter 870447699 Active 2018 Goiter NOS; Note: Date Diagnosed: 12/25/2018 2:49 PM (E04.9) Not Available [facility] 4 03:24:49 Paralysis of larynx 81836262 Active 2023 RYAN MAYA MD [address] [place] [address], [phone] , [facility] 4 08:24:41 Problem Notes None recorded. Procedures Surgical History Date Name Laterality Status Provider Name and Address Organization Details Recorded Time 05/03/20 24 Fiberoptic Laryngoscopy (Comprehensive) completed RYAN MAYA MD [address] [place] [address], [phone], [facility] 05/04/2024 08:24:07 Imaging Results None recorded. [...] Updated DateTime 05/03/2024 167.64 cm 34.7 kg/m2 14748.36 g Kathie Ramírez [place] - [facility] 05/03/2024 13:28:04 Social History None recorded. Functional Status None recorded. Mental Status None recorded. Family History Nothing Reported. Medical History No medical history recorded. Past Encounters Encounter ID Performer Location Encounter Start Date Encounter Closed Date Diagnosis/Indication Diagnosis SNOMED-CT Code Diagnosis ICD10 Code [id number] RYAN MAYA MD [facility] [address] [address] 05/03/2024 13:04:26 05/03/2024 16:54:58 Paralysis of larynx 64313183 J38.02 Dysphonia 20421042 R49.9 Health Concerns Section Related Observation LastModified by Organization Detai ls LastModified Time None Recorded Concern Status LastModified by Organization Details LastModified Time None Recorded Payers Encounter Date Sequence Insurance Name Policy Number Policy Hood Covered Member ID Hood Member ID Guarantor Name 05/03/2024 1 [facility] (MEDICARE REPLACEMENT/A DVANTAGE - HMO) Josue Mace [id number] Josue Mace 05/03/2024 2 [place]: [facility] Josue Mace [id number] Josue Mace Notes Date Note Type Note Provider Name and Address Organization Details Recorded Time 05/03/2024 text/html 73yo gentleman rordigo miguel presents today for evaluation of bilateral vocal cord paralysis and dysphonia. He has had difficulty with his voice for about 5 years. He underwent a traumatic intubation at [facility] in 2018 in the setting of an anaphylactic event. Following, this resulted in dysphonia and dyspnea with exertion. He was seen by otolaryngology in [place] - Dr. John Coppola. At that time, [...] aspirin 81 & clopidogrel. RYAN MAYA MD [address] [place] [address], [phone], [facility] - [facility] 05/04/2024 20:31:01
--- NOTE | 2024-06-11 09:14 | MHC.OFFVIS ---
Vital Signs 06/11/24 09:16 Height 5 ft 6 in Weight 211 lb 10.3 oz BMI 34.2 BP 170/76 H Blood Pressure Location Lt brachial Position Sitting Pulse 73 Intake Visit Reasons: chronic constipation/Candis pt Intake Note: Josue presents in the office as a Candis patient follow up for chronic constipation. CC: States he takes miralax and lactulose and he does not feel like they are working for him. He has constipation - when he does have a BM its a hard stool. Lactulose works when he takes it and he states sometimes he has a pain in the LUQ. Furniture Duster Required: Yes Furniture Duster Name: daughter Allergies lisinopril [LISINOPRIL] Allergy (Severe, Verified 06/11/24 09:23) ANGIOEDEMA prednisone [PREDNISONE] Allergy (Mild, Verified 06/11/24 09:23) ITCHY HPI Comments Details: 73 y.o M with PMH of [facility] (last calcium in 05/2024 normal), T2DM, basal cell cancer, diverticulosis, who is here for follow up. Prev [facility] [place], [place] patient. Reports longstanding issues with constipation x years. Reports 3 BMs per week which are small and hard. Has to strain considerably with splinting and digitalization. Assoc with left sided pain and cramping which doesnt change with defecation. Diet: mainly toast, cheese, rice and beans. Limited salads/vegetables/fiber intake. Current meds: - lactulose - miralax Last colo 2022: BBPS 11/19. 12 mm cecal TA. Diverticulosis, hemorrhoids. Repeat recommended in 3 years. [facility] Medical History NAFLD (nonalcoholic fatty liver disease) Transaminitis Basal cell carcinoma (BCC) Skin lesion of left lower extremity Heart murmur Familial hypocalciuric hypercalcemia Multinodular thyroid Vitamin D deficiency HLD (hyperlipidemia) HTN (hypertension) T2DM (type 2 diabetes mellitus) Surgical History Hx of melanoma excision Hx of esophagogastroduodenoscopy Hx of colonoscopy Hx of appendectomy Hx of cholecystectomy Family History Father CVD (cardiovascular disease) Diabetes Brother CVD (cardiovascular disease) Diabetes FH: heart attack Social History Household Members: Family Housing: House Do you presently have visiting nurse or other home services: Yes (visiting nurse 2x week) Alcohol intake: never Patient Tobacco Use Status: Never used Tobacco service: No Current occupational status: unemployed Review of Systems Const All systems reviewed & are unremarkable except as noted in HPI and below Physical Exam Vital Signs: Last Vital Signs Pulse 73 06/11/24 09:16 BP 170/76 H 06/11/24 09:16 BMI result Body Mass Index 34.2 No apparent distress Nonicteric Abdomen soft, nondistended Alert and oriented x3, uses cane to ambulate Assessment & Plan Assessment & Plan (1) Constipation: Code(s): K59.00 - Constipation, unspecified Category: Medical (2) Diverticulosis of colon: Code(s): K57.30 - Diverticulosis of large intestine without perforation or abscess without bleeding Category: Medical (3) History of colon polyps: Code(s): Z86.010 - Personal history of colon polyps Category: Medical Plan 1. CIC/diverticular disease from slow transit vs hypercalcemia vs outlet dysfunction. Reviewed that diet appears to be playing a big role. In addition, will also add a stimulant laxative. Plan - Increase hydration - Add fiber supplementation daily - Discontinue lactulose. Take senna 2 tabs in the morning instead - Cont miralax - Elevate legs while having a BM - can use step stool - Instrictions also provided in writing - If has diarrhea with above, HOLD all meds x 2 days and then resume fiber and miralax only 2. Hx of polyps Had 12 mm tubular adenoma in 2022. Repeat colo due in 2025. Follow up 2 months Medications: New sennosides (senna) 17.2 mg (2 x 8.6 mg) PO DAILY 90 days 180 tabs 0RF Coding Level of Care Code Est Pt Level 4 (91720) Diagnoses Constipation K59.00 Diverticulosis of colon K57.30 History of colon polyps Z86.010
[2024-06-11 09:16] VITALS: BP 170/76; PULSE 73; BMI 34.2
== END 2024-06-11 10:17 | disposition home or self-care (01) ==
PROVIDERS: PCP Internal Medicine Geriatric Medicine; Visit Provider Internal Medicine
DX: K59.00 Constipation, unspecified (principal); K57.30 Diverticulosis of large intestine without perforation or abscess without bleeding; Z86.0100 Personal history of colon polyps, unspecified
CPT/HCPCS: 99214

== ENCOUNTER → 2024-06-11 09:10 | Outpatient (BNVA) | payer OTHER, SELFPAY | PROVIDERS: PCP Internal Medicine Geriatric Medicine; Visit Provider Internal Medicine | DX: K59.09 Other constipation (principal); K57.30 Diverticulosis of large intestine without perforation or abscess without bleeding; Z86.0100 Personal history of colon polyps, unspecified | CPT/HCPCS: 99212 ==

== ENCOUNTER 2024-06-18 12:42 | Outpatient (REF) | payer OTHER, SELFPAY ==
--- NOTE | ~2024-06-18 | US_ITS ---
CLINICAL HISTORY: I73.9 - Peripheral vascular disease, unspecified Bilateral lower extremity arterial ultrasound and ABIs. Comparison: None Findings: Right lower extremity: Biphasic flow with normal velocity in the common femoral, deep femoral, superficial femoral and popliteal arteries. Biphasic to monophasic flow in the posterior tibial artery with normal velocity. Peroneal artery not visualized. Heavily calcified, runoff vessels. Cannot confirm flow in the JAIR. Dampened monophasic flow in the dorsalis pedis. Left lower extremity: Biphasic flow with minimal velocity elevation in the common femoral artery at 151 centimeters/second. Biphasic flow with normal velocities in the deep femoral, superficial femoral and popliteal arteries. Peroneal artery not identified. Biphasic to monophasic flow in the proximal posterior tibial artery appears occluded more distally. Apparent occluded anterior tibial artery with severely dampened monophasic reconstituted flow in the dorsalis pedis. ABIs: Elevated brachial pressures right at 208 mm Hg, left 182 mm Hg. Highest right ankle pressure at 209 mm Hg with normal right BELEN at 1.0. Highest left ankle pressure at 210 mm Hg with normal left BELEN at 1.0. Dampened amplitude and loss of dicrotic notch on PVR, slightly more pronounced on the right. Impression: No sonographic features for hemodynamically significant inflow or femoral popliteal stenosis on either side. Heavily calcified runoff vessels limiting detail. Biphasic to monophasic flow. Possibly occluded bilateral anterior tibial artery and mid through distal left posterior tibial artery. Nonvisualization of the peroneal arteries. However, normal bilateral ABIs militating against hemodynamically significant disease. Diminished amplitude of bilateral PVRs, more pronounced on the right. This document has been electronically signed by: Ye Ramirez MD on 06/20/2024 13:51:41
--- OUTSIDE RECORDS SUMMARY | 2024-06-18 14:37 | XMS_ITS | Continuity of Care Document ---
Author Organization [facility] - [facility], [facility] Address [address] [place] [address] Care Team Providers Care Makeup Artistry Instructor Name Role Phone NAME, LAURENT Primary Care Provider [phone] Assessment Encounter Date Assessment Date Assessment LastModified [...] vocal quality. I recommended he see a lead database administrator, voice specalist, to evaluate him and see if he would be a good candidate for a more permanent medialization procedure. Patient is willing and interested to travel to [place] to hear options. - Referral to [facility] Otolaryngology - Dr. Stafford or Dr. Machuca for discussion [email or web address] Not available 05/04/2024 08:27:45 Plan of Treatment Reminders Order Date Submit Date Provider Last Modified By Organization Details Last Modified Time Details Appointments None recorded. Lab None recorded. Referral otolaryngol ogist referral - Attn: Betsy. Dr. Machuca or Dr. Stafford - bilateral vocal cord paralysis. 2023 024 [email or web address] 2 [facility] Otolaryngolog y, [address] [facility], [facility], [place], [address], 12/03/202 4 10:41:11 Procedures None recorded. Surgeries None recorded. Imaging None recorded. Medication Orders None recorded. Patient TargetsNo targets recorded. Patient InstructionsNo instructions recorded. 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 Dr. Machuca or Dr. Stafford - bilateral vocal cord paralysis. Referring Physician: Ryan Maya, Otolaryngology, Encounter Date: 05/03/2024 Problems Name Problem SNOMED Code Status Onset Date Resolution Date Notes Provider Name and Address Organization Details Recorded Time Paralysis of larynx 43035956 Active 2018 Paralysis of vocal cords and larynx, unspecifie d; Note: Date Diagnosed: 12/25/2018 2:49 PM (J38.00) Not Available [facility] 4 03:24:49 Dysphonia 79934361 Active 2018 Hoarseness ; Note: Date Diagnosed: 12/25/2018 2:49 PM (R49.0) Not Available [facility] 4 03:24:49 Simple goiter 396805943 Active 2018 Goiter NOS; Note: Date Diagnosed: 12/25/2018 2:49 PM (E04.9) Not Available [facility] 4 03:24:49 Paralysis of larynx 78060298 Active 2023 RYAN MAYA MD [address] [place] [address], [phone] , [facility] 4 08:24:41 Problem Notes None recorded. Procedures Surgical History Date Name Laterality Status Provider Name and Address Organization Details Recorded Time 05/03/20 24 Fiberoptic Laryngoscopy (Comprehensive) completed RYAN MAYA MD [address] [place] [address], [phone], [facility] 05/04/2024 08:24:07 Imaging Results None recorded. Procedure [...] Updated DateTime 05/03/2024 167.64 cm 34.7 kg/m2 11747.36 g Kathie Ramírez [place] - [facility] 05/03/2024 13:28:04 Social History None recorded. Functional Status None recorded. Mental Status None recorded. Family History Nothing Reported. Medical History No medical history recorded. Past Encounters Encounter ID Performer Location Encounter Start Date Encounter Closed Date Diagnosis/Indication Diagnosis SNOMED-CT Code Diagnosis ICD10 Code Diagnosis Note [id number] RYAN MAYA MD [facility] [address] [address] 05/03/2024 13:04:26 05/03/2024 16:54:58 Paralysis of larynx 37883538 J38.02 Dysphonia 46066791 R49.9 Health Concerns Section Related Observation LastModified by Organization Detai ls LastModified Time None Recorded Concern Status LastModified by Organization Details LastModified Time None Recorded Payers Encounter Date Sequence Insurance Name Policy Number Policy Hood Covered Member ID Hood Member ID Guarantor Name 05/03/2024 1 [facility] (MEDICARE REPLACEMENT/A DVANTAGE - HMO) Josue Mace [id number] Josue Mace 05/03/2024 2 [place]: [facility] Josue Mace [id number] Josue Mace Notes Date Note Type Note Provider Name and Address Organization Details Recorded Time 05/03/2024 text/html 73yo gentleman rodrigo miguel presents today for evaluation of bilateral vocal cord paralysis and dysphonia. He has had difficulty with his voice for about 5 years. He underwent a traumatic intubation at [facility] in 2018 in the setting of an anaphylactic event. Following, this resulted in dysphonia and dyspnea with exertion. He was seen by otolaryngology in [place] - Dr. John Coppola. At that time, [...] aspirin 81 & clopidogrel. RYAN MAYA MD [address] [place] [address], [phone], [facility] - [facility] 05/04/2024 20:31:01
--- OUTSIDE RECORDS SUMMARY | 2024-06-18 14:37 | XMS_ITS | Data Portability ---
Author Organization [place] - [facility], Allergy Address [address] [address] Care Team Providers Care Front Desk Coordinator Name Role Phone NAME, LAURENT Primary Care [...] vocal quality. I recommended he see a trench digger, voice specalist, to evaluate him and see if he would be a good candidate for a more permanent medialization procedure. Patient is willing and interested to travel to [place] to hear options. - Referral to [facility] Otolaryngology - Dr. Stafford or Dr. Machuca for discussion [email or web address] Not available 05/04/2024 08:27:45 Plan of Treatment Reminders Order Date Submit Date Provider Last Modified By Organization Details Last Modified Time Details Appointments None recorded. Lab None recorded. Referral otolaryngol ogist referral - Attn: Betsy. Dr. Machuca or Dr. Stafford - bilateral vocal cord paralysis. 2023 024 [email or web address] 2 [facility] Otolaryngolog y, [address], [place], [address], 4 10:41:11 Procedures None recorded. Surgeries None recorded. Imaging None recorded. Medication Orders None recorded. Patient TargetsNo targets recorded. Patient InstructionsNo instructions recorded. 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 Dr. Machuca or Dr. Stafford - bilateral vocal cord paralysis. Referring Physician: Ryan Maya, Otolaryngology, Encounter Date: 05/03/2024 Problems Name Problem SNOMED Code Status Onset Date Resolution Date Notes Provider Name and Address Organization Details Recorded Time Paralysis of larynx 81859694 Active 2018 Paralysis of vocal cords and larynx, unspecifie d; Note: Date Diagnosed: 12/25/2018 2:49 PM (J38.00) Not Available [facility] 4 03:24:49 Dysphonia 91608200 Active 2018 Hoarseness ; Note: Date Diagnosed: 12/25/2018 2:49 PM (R49.0) Not Available [facility] 4 03:24:49 Simple goiter 564676962 Active 2018 Goiter NOS; Note: Date Diagnosed: 12/25/2018 2:49 PM (E04.9) Not Available [facility] 4 03:24:49 Paralysis of larynx 59179849 Active 2023 RYAN MAYA MD [address] [place] [address], [phone] , [facility] 4 08:24:41 Problem Notes None recorded. Procedures Surgical History Date Name Laterality Status Provider Name and Address Organization Details Recorded Time 05/03/20 24 Fiberoptic Laryngoscopy (Comprehensive) completed RYAN MAYA MD [address] [place] [address], [phone], [facility] 05/04/2024 08:24:07 Imaging Results None recorded. [...] Updated DateTime 05/03/2024 167.64 cm 34.7 kg/m2 38231.36 g Natalilinda Ramírez [place] - [facility] 05/03/2024 13:28:04 Social History None recorded. Functional Status None recorded. Mental Status None recorded. Family History Nothing Reported. Medical History No medical history recorded. Past Encounters Encounter ID Performer Location Encounter Start Date Encounter Closed Date Diagnosis/Indication Diagnosis SNOMED-CT Code Diagnosis ICD10 Code Diagnosis Note [id number] RYAN MAYA MD [facility] [address] [address] 05/03/2024 13:04:26 05/03/2024 16:54:58 Paralysis of larynx 59278050 J38.02 Dysphonia 20037754 R49.9 Health Concerns Section Related Observation LastModified by Organization Detai ls LastModified Time None Recorded Concern Status LastModified by Organization Details LastModified Time None Recorded Advance Directives Directive None Recorded Payers Encounter Date Sequence Insurance Name Policy Number Policy Hood Covered Member ID Hood Member ID Guarantor Name 05/03/2024 1 [facility] (MEDICARE REPLACEMENT/A DVANTAGE - HMO) Josue Mace [id number] Josue Mace 05/03/2024 2 [place]: [facility] Josue Mace [id number] Josue Mace Notes Date Note Type Note Provider Name and Address Organization Details Recorded Time 05/03/2024 text/html 73yo gentleman rodrigo miguel presents today for evaluation of bilateral vocal cord paralysis and dysphonia. He has had difficulty with his voice for about 5 years. He underwent a traumatic intubation at [facility] in 2018 in the setting of an anaphylactic event. Following, this resulted in dysphonia and dyspnea with exertion. He was seen by otolaryngology in [place] - Dr. John Coppola. At that time, [...] aspirin 81 & clopidogrel. RYAN MAYA MD [address] [place] [address], [phone], [facility] - [facility] 05/04/2024 20:31:01
== END 2024-06-18 12:43 | disposition home or self-care (01) ==
LOC: HO.US 12:42
PROVIDERS: PCP Internal Medicine Geriatric Medicine; Visit Provider Surgery Vascular Surgery
DX: I73.9 Peripheral vascular disease, unspecified (principal)
CPT/HCPCS: 93922; 93925

== ENCOUNTER → 2024-06-18 12:44 | Outpatient (BNV) | payer OTHER, SELFPAY | PROVIDERS: PCP Internal Medicine Geriatric Medicine; Visit Provider Radiology Diagnostic Radiology | DX: I73.9 Peripheral vascular disease, unspecified (principal) | CPT/HCPCS: 93922 ==

== ENCOUNTER 2024-07-10 09:59 | Outpatient (AMB) | payer OTHER, SELFPAY ==
--- NOTE | 2024-07-10 10:32 | A.OFFVIS_ITS ---
Intake Visit Reasons: 3 mo arterial US 06/20/24 Intake Note: Patient presents for arterial follow up. Patient states his left leg hurts, visible redness on the left leg only. He states it has been about 3 days since the redness started. Accompanied by: Self / Same As Patient Allergies lisinopril [LISINOPRIL] Allergy (Severe, Verified 07/10/24 10:33) ANGIOEDEMA prednisone [PREDNISONE] Allergy (Mild, Verified 07/10/24 10:33) ITCHY HPI HPI 3 mo arterial US 06/20/24: Details: Very pleasant 73-year-old gentleman presents for routine arterial surveillance follow-up. He has been doing relatively well since his endovascular intervention in February of 2024. He reports that his walking and ambulating is significantly better. He is only concern is he has developed left pretibial cellulitis. Now presents for routine arterial surveillance follow-up. [facility] Medical History NAFLD (nonalcoholic fatty liver disease) Transaminitis Basal cell carcinoma (BCC) Skin lesion of left lower extremity Heart murmur Familial hypocalciuric hypercalcemia Multinodular thyroid Vitamin D deficiency HLD (hyperlipidemia) HTN (hypertension) T2DM (type 2 diabetes mellitus) Surgical History Hx of melanoma excision Hx of esophagogastroduodenoscopy Hx of colonoscopy Hx of appendectomy Hx of cholecystectomy Family History Father CVD (cardiovascular disease) Diabetes Brother CVD (cardiovascular disease) Diabetes FH: heart attack Social History Household Members: Family Housing: House Do you presently have visiting nurse or other home services: Yes (visiting nurse 2x week) Alcohol intake: never Patient Tobacco Use Status: Never used Tobacco service: No Current occupational status: unemployed Review of Systems Const All systems reviewed & are unremarkable except as noted in HPI and below Reports no additional complaints ENT Reports Normal hearing present Card Denies chest pain, Denies chest pain at rest, Denies chest pain with activity and Denies pedal edema Resp Denies cough GI Denies abdominal pain Musc Denies abnormal gait, Denies muscle cramps and Denies radiating pain into limb Skin/Breast Denies skin ulcer and Denies wounds Neuro Reports Normal hearing present and Denies abnormal gait Psych Reports no additional complaints Physical Exam Const General: cooperative, healthy appearing and comfortable Orientation/consciousness: oriented to person, oriented to place and oriented to time HEENT Head: Yes normal to inspection Neck Neck: Yes normal visual inspection Carotids: no bruits Chest Chest palpation & inspection: normal inspection of the chest Resp Effort & Inspection: normal respiratory effort and able to speak in complete sentences Auscultation: clear to auscultation bilaterally, no crackles, no rales, no rhonchi and no wheezes Cardio Other: Bilateral DP signals Rate: regular rate Rhythm: regular rhythm Heart sounds: S1 normal heart sound present and S2 normal heart sound present Bruits: no carotid bruits Peripheral pulses: Peripheral pulses 2+ throughout GI Inspection: Yes normal to inspection Skin Other: Left pretibial cellulitis Wounds: no wounds Hair: normal Neuro General: oriented to person, oriented to place and oriented to time Cranial nerves: Yes CN's II-XII intact bilaterally and Yes Normal hearing present Cognition (Neuro): normal cognition Motor exam (neuro): 5/5 motor strength present throughout Extrem Other: venous exam: No significant superficial varicosities or spider telangiectasias, minimal edema General: No clubbing, No cyanosis and No edema Psych Appearance: grossly normal Mental Status: mental status grossly normal Speech and movement: Normal speech and movement present Results Reviewed Results Reviewed: Noninvasive arterial testing dated 06/18/2024 demonstrates BELEN on the right of 1.0 and on the left of 1.0. May be artifactually elevated due to calcified vessels but overall does appear to have biphasic flow on down. Written report and images were reviewed. Assessment & Plan Assessment & Plan (1) PAD (peripheral artery disease): Comment: 03/07/2024 - left popliteal and peroneal artery plasty Code(s): I73.9 - Peripheral vascular disease, unspecified Category: Medical Plan: In short patient has stable claudication. He is doing well status post intervention I did review the pathophysiology of peripheral vascular disease with the patient. In addition we did discuss routine conservative measures including a healthy diet and the importance of exercise and ambulation. We did discuss risk factor modification. The patient will continue to to follow-up with surveillance follow-up in approximately 6 months. Thank you for allowing us to participate in this patient's care. If there are any questions or concerns please do not hesitate to contact us. (2) Left leg cellulitis: Code(s): L03.116 - Cellulitis of left lower limb Category: Medical Plan: He has developed left pretibial cellulitis. Will start him on Keflex. He will follow up with us in approximately 2 weeks time to ensure that it has improved. Orders: Orders US arterial duplex LE BI 6 Weeks I73.9 - Peripheral vascular disease, unspecified Medications: New cephalexin 500 mg PO BID 20 tabs 0RF L03.116 - Cellulitis of left lower limb Coding Level of Care Code Est Pt Level 4 (74939) Complex EM visit Add On G2211 Diagnoses PAD (peripheral artery disease) I73.9 Left leg cellulitis L03.116
--- OUTSIDE RECORDS SUMMARY | 2024-07-10 10:45 | XMS_ITS | Clinical Summary ---
Author Organization [facility] Address [address] [place] [id number] Phone Care Team Providers Care Rn Recruitment Name Role Phone Name, Aneesh RIVERS Primary Care Provider [phone] Allergies Active Allergy Reactions Criticality Noted Date Comments Lisinopril 07/24/2020 Medications amLODIPine (NORVASC) 5 MG tablet Take 1 tablet by mouth 1 (one) time each day 0 Active aspirin (ST LUANN) 81 MG EC tablet Take 1 tablet by mouth 1 (one) time each day Active atorvastatin (LIPITOR) 40 MG tablet Take 1 tablet by mouth 1 (one) time each day Active chlorthalidone (HYGROTON) 50 MG tablet Take 1 tablet by mouth 1 (one) time each day Active spironolactone (ALDACTONE) 25 MG tablet Take 1 tablet by mouth 1 (one) time each day Active verapamil SR (CALAN-SR) 120 MG CR tablet Take 1 tablet by mouth 1 (one) time each day Active metFORMIN (GLUCOPHAGE) 1000 MG tablet Take 1 tablet by mouth 2 (two) times a day Active Canagliflozin (Invokana) 300 MG tablet Take 300 mg by mouth 1 (one) time each day Active tamsulosin (FLOMAX) 0.4 MG 24 hr capsule Take 0.4 mg by mouth 1 (one) time each day Active SM Fiber Laxative 500 MG tablet Take 1 tablet by mouth 2 (two) times a day 1 Active gabapentin (NEURONTIN) 100 MG capsule Take 200 mg by mouth every night 1 Active Lantus 100 UNIT/ML injection INJECT 65 UNITS SUBCUTANEOUSLY AT BEDTIME 1 Active HumaLOG 100 UNIT/ML injection INJECT 30 UNITS SUBCUTANEOUSLY THREE TIMES DAILY BEFORE MEALS 1 Active lactulose (CHRONULAC) 10 GM/15ML solution TAKE 15 ML BY MOUTH EVERY DAY 1 Active latanoprost (XALATAN) 0.005 % ophthalmic solution PLACE 1 DROP IN EACH EYE AT BEDTIME 1 Active Victoza 18 MG/3ML injection 1 Active Senna-Time 8.6 MG tablet Take 2 tablets by mouth every night 1 Active Active Problems Problem Noted Date Diagnosed Date Stage 3a chronic kidney disease 07/24/2020 Essential hypertension 07/23/2020 Proteinuria 07/23/2020 Renal disorder due to type 2 diabetes mellitus 0 07/23/2020 Resolved Problems Problem Noted Date Diagnosed Date Resolved Date Foot callus 12/07/2017 03/26/2021 Pain in toe 10/07/2016 03/26/2021 Onychomycosis 10/07/2016 03/26/2021 Type 2 diabetes mellitus 10/07/2016 Immunizations Name Administration Dates Next Due Influenza, Quadrivalent, With Preservative 05/17 Family History Medical History Relation Comments Cancer Child daughter Stroke Sibling 1 brother Kidney disease Sibling 2 brother Hypertension Sibling 3 brother Diabetes Sibling 4 brothers, sister s Heart disease Sibling 5 2 brothers Relation Status Comments Child Father Mother Sibling 1 Sibling 2 Sibling 3 Sibling 4 Sibling 5 Social History Tobacco Use Types Packs/Day Years Used Date Smoking Tobacco: Never Smokeless Tobacco: Never Tobacco Cessation:Counseling Given: Not Answered Alcohol Use Standard Drinks/Week Comments No 0 (1 standard drink = 0.6 oz pur e alcohol) Sex and Gender Information Value Date Recorded Sex Assigned at Not on file Legal Sex Male 4:40 PM EST Gender Identity Not on file Sexual Orientation Not on file Last Filed Vital Signs Vital Sign Reading Time Taken Comments Blood Pressure 128/70 10/11/2022 2:27 PM EDT Pulse 78 10/11/2022 2:27 PM EDT Temperature - - Respiratory Rate - - Oxygen Saturation 97% 10/11/2022 2:27 PM EDT Inhaled Oxygen Concentration - - Weight 98.2 kg (216 lb 6.4 oz) 10/11/2022 2:27 P M EDT Height 167.6 cm (5' 6 ) 10/11/2022 2:27 PM EDT Body Mass Index 34.93 10/11/2022 2:27 PM EDT Plan of Treatment Health Maintenance Due Date Last Done Comments Colorectal Cancer Screening: Annual FOBT 1999 Colorectal Cancer Screening: Colonoscopy 1999 Colorectal Cancer Screening: Sigmoidoscopy 1999 Hepatitis B Vaccine (1 of 3 - Risk 3-dose series) 2010 Pneumococcal Vaccine: 65+ Ye ars (3 of 3 - PCV) 02/17/2015 02/17/2014, 03/15/2008, 04/14/2000 Diabetes: Ophthalmology Exam 07/10/2020 Diabetes: Pedal Pulse Checked 07/10/2020 Diabetes: Sensory Foot Exam 07/10/2020 Diabetes: Visual Foot Exam 07/10/2020 Diabetes: Hemoglobin A1C 01/07/2023 10/08/2022, 08/12 Influenza Vaccine (#1) 2024 8, 05/17/2016, 05/11/2012 Insurance [facility] DUAL [employer] [facility] [place] Care Teams Rn Recruitment Relationship Specialty Start Date End Date Name, MD Aneesh [address] [place] [id number] PCP - General 06/23/20
--- OUTSIDE RECORDS SUMMARY | 2024-07-10 10:45 | XMS_ITS | Encounter Summary ---
Author Organization [employer] Address [address] [facility] 7[address] [place] [address] Care Team Providers Care Guard Driver Name Role Phone Name, Aneesh RIVERS Primary Care Provider [phone] Reason for Visit * Reason Comments Med Refill Encounter Details Date Type Department Care Team ([facility] st Contact Info) Description 06/29/2024 Refill [facility] MEDICINE [address] [place], [place] [phone] Name, MD Aneesh [address] [place] [address] Chronic constipation Social History Tobacco Use Types Packs/Day Years Used Date Smoking Tobacco: Never Passive Smoke Exposure: Never Smokeless Tobacco: Never Alcohol Use Standard Drinks/Week Comments Never 0 (1 standard drink = 0.6 oz pur e alcohol) Depression Answer Date Recorded Patient Health Questionnaire-9 Score 4 08/23/2023 Patient Health Questionnaire-9 Score 4 08/23/2023 Last PHQ-9: Questionnaire Data Not on file 0 08/23/2023 Housing Stability Answer Date Recorded What is your housing situation today? I have brandy haile 08/23/[address] you li ve. Do you have problems with any of the following? None of the above 08/23/2023 Food Insecurity Answer Date Recorded Within the past 12 months, y ou worried that your food would run out before you got money to buy more: Never True 08/23/2023 Within the past 12 months,th e food you bought just didn't last and you didn't have enough money to get more: Never True 05/2024 Transportation Answer Date Recorded In the past 12 months, has l ack of transportation kept you from medical appts, meetings, work or from getting things needed for daily living? No 08/23/2023 Utilities Answer Date Recorded In the past 12 months, has t he electric, gas, oil or water company threatened to shut off services in your home? No 08/23/2023 Depression Answer Date Recorded Patient Health Questionnaire-2 Score 2 08/23/2023 Internet Access Answer Date Recorded Internet Access Q1 No 05/04/2024 Internet Access Q2 I do not want or need it 04/14 Sex and Gender Information Value Date Recorded Sex Assigned at Male 04/12/2022 10:14 AM EDT Legal Sex Male 10:14 AM EDT Gender Identity Male 04/12/2022 10:14 AM EDT Sexual Orientation Straight 04/12/2022 10 :14 AM EDT documented as of this encounter Plan of Treatment Upcoming Encounters Date Type Department Care Team (Late st Contact Info) Description 07/17/2024 10:00 AM EST Medication Management [facility] MEDICINE [address] [place] [id number] Sandra Rasheed, PharmD [address] [place] [address] 09/26/2024 10:45 AM EDT Office Visit [facility] [address] [place] [address] Aneesh Oliveira MD [address] [place] [address] 11/30/2024 10:00 AM EDT Office Visit [facility] OPTOMETRY [address] [place] [address] Nathanael, Jayne, OD [address] [place] [address] documented as of this encounter Visit Diagnoses Diagnosis Chronic constipation Unspecified constipation documented in this encounter Additional Health Concerns Assessment Noted Time PHQ-9 Depression Total Score: 4 08/23/19 24 9:44 AM EDT documented as of this encounter Care Teams Guard Driver Relationship Specialty Start Date End Date Aneesh Oliveira MD [address] [place] [address] PCP - General Family Medicine 02/14/18 documented as of this encounter
--- OUTSIDE RECORDS SUMMARY | 2024-07-10 10:45 | XMS_ITS | Encounter Summary ---
Author Organization [employer] Address [address] [facility] 7[address] [place] [address] Care Team Providers Care Washer Blanket Name Role Phone Name, Aneesh RIVERS Primary Care Provider [phone] Reason for Visit * Reason Comments Med Refill Encounter Details Date Type Department Care Team ([facility] st Contact Info) Description 08/19/2023 Refill [facility] MEDICINE [address] [place], [place] [phone] Name, MD Aneesh [address] [place] [address] Social History Tobacco Use Types Packs/Day Years Used Date Smoking Tobacco: Never Smokeless Tobacco: Never Alcohol Use Standard [...] Recorded Patient Health Questionnaire-2 Score 2 08/23/2023 Sex and Gender Information Value Date Recorded Sex Assigned at Male 04/12/2022 10:14 AM EDT Legal Sex Male 10:14 AM EDT Gender Identity Male 04/12/2022 10:14 AM EDT Sexual Orientation Straight 04/12/2022 10 :14 AM EDT documented as of this encounter Plan of Treatment Upcoming Encounters Date Type Department Care Team (Late st Contact Info) Description 07/17/2024 10:00 AM EST Medication Management [facility] MEDICINE [address] [place] [address] Sandra Rasheed, PharmD [address] [place] [address] 09/26/2024 10:45 AM EDT Office Visit [facility] MEDICINE [address] [place] [address] Name, MD Aneesh [address] [place] [address] 11/30/2024 10:00 AM EDT Office Visit [facility] OPTOMETRY [address] [place] [address] Nathanael, Jayne, OD [address] [place] [address] documented as of this encounter Visit Diagnoses Not on filedocumented in this encounter Care Teams Washer Blanket Relationship Specialty Start Date End Date Name, MD Aneesh [address] [place] [id number] PCP - General Family Medicine 02/14/18 documented as of this encounter
--- OUTSIDE RECORDS SUMMARY | 2024-07-10 10:45 | XMS_ITS | Encounter Summary ---
Author Organization [employer] Address [address] [facility] 7t [place] [address] Care Team Providers Care Lining Inserter Name Role Phone Name, Aneesh RIVERS Primary Care Provider [phone] Reason for Visit * Reason Comments Med Refill Encounter Details Date Type Department Care Team ([facility] st Contact Info) Description 07/06/2024 Refill [facility] MEDICINE [address] [place], [place] [phone] Name, MD Aneesh [address] [place] [address] Type 2 diabetes mellitus with other specified complication, without long-term current use of insulin ([facility]) Social History Tobacco Use Types Packs/Day Years [...] Description 07/17/2024 10:00 AM EST Medication Management [facility] MEDICINE [address] [place] [address] Sandra Rasheed, PharmD [address] [place] [address] 09/26/2024 10:45 AM EDT Office Visit [facility] MEDICINE [address] [place] [address] Aneesh Oliveira MD [address] [place] [address] 11/30/2024 10:00 AM EDT Office Visit [facility] OPTOMETRY [address] [place] [address] Nathanael, Jayne, OD [address] [place] [address] documented as of this encounter Visit Diagnoses Diagnosis Type 2 diabetes mellitus with other specified complication, without long-term current use of insulin ([facility]) documented in this encounter Additional Health Concerns Assessment Noted Time PHQ-9 Depression Total Score: 4 08/23/19 24 9:44 AM EDT documented as of this encounter Care Teams Lining Inserter Relationship Specialty Start Date End Date Aneesh Oliveira MD [address] [place] [address] PCP - General Family Medicine 02/14/18 documented as of this encounter
--- OUTSIDE RECORDS SUMMARY | 2024-07-10 10:45 | XMS_ITS | Encounter Summary ---
Author Organization [email or web address] Address [address] [facility] 7[address] [place] [address] Care Team Providers Care Application Systems Architect Name Role Phone Name, Aneesh RIVERS Primary Care Provider [phone] Reason for Visit * Reason Onset Date Comments Medication Question 08/04/2023 Encounter Details Date Type Department Care Team ([facility] st Contact Info) Description 08/04/2023 Telephone [facility] MEDICINE [address] [place], [place] [phone] Name, MD Aneesh [address] [place] [address] Medication Question Social History Tobacco Use Types Packs/Day Years [...] AM EDT documented as of this encounter Miscellaneous Notes * Telephone Encounter - Julienne Triana RN - 08/04/2023 4:43 PM EST T/C to [facility] pharmacy for below message, as per pharmacy rx is all set. T/C to [facility] to inform that Rx. Is all set. [facility] verbally agreed and understood. * Telephone Encounter - Paco Smith - 08/04/2023 3:12 PM EST Tc from [facility] requesting a call back in regards to pt insulin, states insurance is not covering. Please contact at [phone] documented in this encounter Plan of Treatment Upcoming Encounters Date Type Department Care Team (Late st Contact Info) Description 07/17/2024 10:00 AM EST Medication Management [facility] MEDICINE [address] [place] [phone] Sandra Rasheed, PharmD [address] [place] [address] 09/26/2024 10:45 AM EDT Office Visit [facility] MEDICINE [address] [place] [phone] Name, MD Aneesh [address] [place] [address] 11/30/2024 10:00 AM EDT Office Visit [facility] OPTOMETRY [address] [place], [place] [phone] Jayne Huffman, OD [address] [place], [place] [phone] documented as of this encounter Visit Diagnoses Not on filedocumented in this encounter Care Teams Application Systems Architect Relationship Specialty Start Date End Date Name, MD Aneesh [address] [place] [address] PCP - General Family Medicine 02/14/18 documented as of this encounter
--- OUTSIDE RECORDS SUMMARY | 2024-07-10 10:45 | XMS_ITS | Encounter Summary ---
Author Organization [employer] Address [address] [place] [address] Care Team Providers Care On Air Host Name Role Phone Name, Aneesh RIVERS Primary Care Provider [phone] Reason for Visit * Reason Comments Med Refill Encounter Details Date Type Department Care Team ([facility] st Contact Info) Description 06/24/2024 Refill [facility] [address] [place], [place] [phone] Name, MD Aneesh [address] [place] [address] Chronic low back pain, unspecified back pain laterality, unspecified whether sciatica present; Hypertension, unspecified type; Prostatism Social History Tobacco Use Types Packs/Day Years [...] Description 07/17/2024 10:00 AM EST Medication Management [facility] MED[facility]INE [address] [place] [address] Sandra Rasheed, PharmD [address] [place] [address] 09/26/2024 10:45 AM EDT Office Visit [facility] MEDICINE [address] [place] [address] Name, MD Aneesh [address] [place] [address] 11/30/2024 10:00 AM EDT Office Visit [facility] OPTOMETRY [address] [place] [address] Nathanael, Jayne, OD [address] [place] [address] documented as of this encounter Visit Diagnoses Diagnosis Chronic low back pain, unspecified back pain laterality, unspecified whether sciatica present Hypertension, unspecified type Prostatism Unspecified hyperplasia of prostate without urinary obstruction and other lower urinary tract symptoms (LUTS) documented in this encounter Additional Health Concerns Assessment Noted Time PHQ-9 Depression Total Score: 4 08/23/19 24 9:44 AM EDT documented as of this encounter Care Teams On Air Host Relationship Specialty Start Date End Date Name, MD Aneesh [address] [place] [address] PCP - General Family Medicine 02/14/18 documented as of this encounter
--- OUTSIDE RECORDS SUMMARY | 2024-07-10 10:45 | XMS_ITS | Clinical Summary ---
Author Organization [employer] Address [address] [place] [address] [address] [place] [address] Care Team Providers Care Blemish Remover Name Role Phone Name, Aneesh RIVERS Primary Care Provider [phone] Allergies Active Allergy Reactions Criticality Noted Date Comments Lisinopril Angioedema High 01/15/2019 IN ROUNDS 04/06, RN STATES OVERNIGHT RN REPORTED LISINOPRIL WAS DC'ED DUE TO SUSPECTED ANGIOEDEMA Prednisone Hives Low 12/08/2022 Other reaction(s): ITCHY Wound Dressings Rash Low 11/03/2022 Medications Insulin Lispro 100 UNIT/ML solution inject by subcutaneous route 35u TID Active Lidocaine HCl 3 % cream apply by topical route every day to the lower back area 022 Active polyethylene glycol, PEG, 3350 (Glycolax) 17 GM/SCOOP powder take (17G) by oral route every day mixed with 8 oz. water, juice, soda, coffee or tea 020 Active UltiGuard SafePack Pen Needle 32G X 4 MM misc USE DIRECTED FOUR TIMES DAILY 024 Active amLODIPine (Norvasc) 10 MG tablet Take 1 tablet (10 mg) by mouth in the morning. 30 tablet 2024 Active metFORMIN (Glucophage) 1000 MG tabletIndication s:Type 2 diabetes mellitus with other specified complication, without long-term current use of insulin (CMS/HCC) Take 1 tablet (1,000 mg) by mouth before breakfast and before evening meal. 60 tablet Active sodium chloride (Barnes) 0.65 % nasal sprayIndications :Postnasal drip Administer 1 spray into each nostril if needed for congestion. 15 mL 2 024 2024 Active Aspirin Adult Low Strength 81 MG EC tablet TAKE 1 TABLET BY MOUTH EVERYDAY AT NOON 90 tablet 3 Active mometasone (Elocon) 0.1 % ointment Apply topically Once per day. 45 g 024 2024 Active HumaLOG KWIKPEN 100 UNIT/ML injectionIndicat ions:Type 2 diabetes mellitus with hyperglycemia ([facility]),joint terminal attack controller (current) use of insulin ([facility]) INJECT 40 UNITS SUBCUTANEOUSLY BEFORE BREAKFAST, 35 UNITS BEFORE LUNCH, AND 35 UNITS BEFORE SUPPER 30 mL 3 Active triamcinolone (Kenalog) 0.1 % cream APPLY TOPICALLY TO THE AFFECTED AREA(S) TWICE DAILY IN THE MORNING AND IN THE EVENING NEEDED FOR PAIN AND SWELLING 30 g 2 Active chlorthalidone (Hygroton) 50 MG tablet TAKE 1 TABLET BY MOUTH EVERY MORNING 90 tablet 2 Active clopidogrel (Plavix) 75 MG tablet Take 75 mg by mouth in the morning. Active OneTouch UltraSoft 2 Lancets miscIndications: Type 2 diabetes mellitus with other specified complication, without long-term current use of insulin ([facility]) TEST BLOOD SUGAR THREE TIMES DAILY 100 each Active Ozempic, 0.25 or 0.5 MG/DOSE, 2 MG/3ML solution pen-injector Inject 0.25 mg subcutaneously once a week for 4 weeks then increase to 0.5 mg once a week Active lactulose (Chronulac) 10 GM/15ML solution TAKE 15 ML BY MOUTH EVERY DAY 250 mL 10 Active canagliflozin (Invokana) 100 MG Take 1 tablet (100 mg) by mouth before breakfast. 30 tablet 11 024 2024 Active Alcohol Swabs (Easy Touch Alcohol Prep Medium) 70 % pads USE DIRECTED FOUR TIMES DAILY 100 each Active acetaminophen (Tylenol) 500 MG tablet Take 1 tablet (500 mg) by mouth every 8 (eight) hours if needed for mild pain. Patient reports taking 3 tablets every morning for pain 30 tablet 11 024 2024 Active cetirizine (ZyrTEC) 10 MG tabletIndication s:Chronic low back pain, unspecified back pain laterality, unspecified whether sciatica present Take 1 tablet (10 mg) by mouth 2 times daily. 60 tablet 024 Active pravastatin (Pravachol) 40 MG tablet Take 1 tablet (40 mg) by mouth Once per day. 30 tablet 11 2024 Active OneTouch Ultra test strip TEST BLOOD SUGAR THREE TIMES DAILY 100 strip 11 024 Active gabapentin (Neurontin) 100 MG capsuleIndicatio ns:Chronic low back pain, unspecified back pain laterality, unspecified whether sciatica present TAKE 2 CAPSULES BY MOUTH AT BEDTIME 60 capsule 025 Active spironolactone (Aldactone) 25 MG tabletIndication s:Hypertension, unspecified type TAKE 1 TABLET BY MOUTH EVERY MORNING 90 tablet 025 Active tamsulosin (Flomax) 0.4 MG 24 hr capsuleIndicatio ns:Prostatism TAKE 2 CAPSULES BY MOUTH EVERY DAY AT BEDTIME (1/2 HOUR AFTER SUPPER) 180 capsule 025 Active verapamil SR (Calan SR) 120 MG ER tabletIndication s:Chronic constipation TAKE 1 TABLET BY MOUTH EVERY MORNING WITH FOOD 90 tablet 025 Active Toujeo Max SoloStar 300 UNIT/ML injectionIndicat ions:Type 2 diabetes mellitus with other specified complication, without long-term current use of insulin ([facility]) INJECT 80 UNITS SUBCUTANEOUSLY AT BEDTIME 6 mL 3 025 Active tamsulosin (Flomax) 0.4 MG 24 hr capsuleIndicatio ns:Prostatism TAKE 2 CAPSULES BY MOUTH EVERY DAY AT BEDTIME (1/2 HOUR AFTER SUPPER) 180 capsule 1 024 2024 Discontinued(R eorder (will not trigger notification to Pharmacy)) spironolactone (Aldactone) 25 MG tabletIndication s:Hypertension, unspecified type TAKE 1 TABLET BY MOUTH EVERY MORNING 90 tablet 1 024 2024 Discontinued(R eorder (will not trigger notification to Pharmacy)) Toujeo Max SoloStar 300 UNIT/ML injectionIndicat ions:Type 2 diabetes mellitus with other specified complication, without long-term current use of insulin ([facility]) INJECT 80 UNITS SUBCUTANEOUSLY AT BEDTIME 6 mL 3 024 2024 Discontinued verapamil SR (Calan SR) 120 MG ER tabletIndication s:Chronic constipation TAKE 1 TABLET BY MOUTH EVERY MORNING WITH FOOD 90 tablet 024 2024 Discontinued gabapentin (Neurontin) 100 MG capsuleIndicatio ns:Chronic low back pain, unspecified back pain laterality, unspecified whether sciatica present TAKE 2 CAPSULES BY MOUTH EVERY DAY AT BEDTIME 60 capsule 024 2024 Discontinued Active Problems Problem Noted Date Diagnosed Date Serrated adenoma of colon 12/02/2023 Lumbar spondylosis 12/02/2023 Lumbar radiculopathy 12/02/2023 CKD (chronic kidney disease) 12/02/2023 Cellulitis of left lower leg 10/06/2023 Assessment & Plan (10/06/2023 4:38 PM EDT): I will extend his antibiotics for 10 more days (doxycycline and cephalexin) Postop check 05/19/2023 05/19/2023 Aortic stenosis 03/22/2023 03/22/2023 Chest pain 03/22/2023 03/22/2023 Diverticulosis of colon 03/22/2023 03/22/20 23 Epigastric pain 03/22/2023 03/22/2023 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 03/22/2023 Heart murmur 03/22/2023 03/22/2023 Hemorrhoids 03/22/2023 03/22/2023 History of colon polyps 03/22/2023 03/22/20 23 Lower extremity pain, bilateral 03/22/2023 03/22/2023 Multinodular thyroid 03/22/2023 03/22/2023 Myalgia 03/22/2023 03/22/2023 PAD (peripheral artery disease) 03/22/2023 03/22/2023 Skin lesion of left lower extremity 03/22/2023 03/22/2023 Transaminitis 03/22/2023 03/22/2023 Varicose veins of right lower extremity with inf lammation 03/22/2023 03/22/2023 Vitamin D deficiency 03/22/2023 03/22/2023 Multiple nodules of lung 05/21/2022 Vocal cord paralysis 05/21/2022 Prostatism 05/21/2022 Basal cell carcinoma (BCC) 09/12/2020 Stage 3a chronic kidney disease 07/24/2020 Diabetic nephropathy associa augusto with type 2 diabetes mellitus 07/23/2020 Proteinuria 07/23/2020 Chronic hoarseness 08/21/2018 Chronic low back pain 05/12/2018 Enlarged prostate 03/14/2018 Thyroid nodule 03/14/2018 Urticaria 02/20/2018 Sciatica 02/20/2018 Chronic constipation 11/11/2017 Disorder of vein 11/11/2017 History of appendectomy 11/11/2017 History of cholecystectomy 11/11/2017 NAFLD (nonalcoholic fatty liver disease) 013 T2DM (type 2 diabetes mellitus) 05/29/2012 Assessment & Plan (10/06/2023 4:38 PM EDT): Diabetes medications where recently change, I advise low carb diet and avoid soda, juice and sweats, f/u with PCP Nonproliferative diabetic retinopathy 05/29/2012 Cervical spondylosis without myelopathy 12/08/19 12 Gastroesophageal reflux disease 12/08/2011 Generalized osteoarthritis 12/08/2011 HTN (hypertension) 11/22/2011 Assessment & Plan (10/06/2023 4:40 PM EDT): Uncontrolled, patient is clinically asymptomatic, I advise low Na diet, take medications every day and f/u with PCP in 4 weeks with log HLD (hyperlipidemia) 11/22/2011 Obesity 11/22/2011 Encounters Date Type Department Care Team Description 07/10/2024 Refill [facility] [address] [place] [address] Name, MD Aneesh Type 2 diabetes mellitus with hyperglycemia ([facility]/HCC); joint terminal attack controller (current) use of insulin (CMS/HCC) 07/06/2024 Refill [facility] [address] [place] [address] Name, MD Aneesh Type 2 diabetes mellitus with other specified complication, without long-term current use of insulin (CMS/HCC) 06/29/2024 Refill [facility] [address] [place] [address] Aneesh Oliveira MD Chronic constipation 06/25/2024 Refill [facility] [address] [place] [address] Aneesh Oliveira MD Hypertension, unspecified type; Prostatism; Type 2 diabetes mellitus with hyperglycemia (CMS/HCC); skilled nursing (current) use of insulin (CMS/HCC) 06/24/2024 Refill [facility] [address] [place] [address] Aneesh Oliveira MD Chronic low back pain, unspecified back pain laterality, unspecified whether sciatica present; Hypertension, unspecified type; Prostatism 06/01/2024 3:30 PM EST Office Visit [facility] [address] [place] [address] Nathanael, Jayne, OD Both eyes affected by mild nonproliferative diabetic retinopathy with macular edema, associated with type 2 diabetes mellitus ([facility]/HCC) (Primary Dx); Epiretinal membrane, both eyes; Left retinal defect; Choroidal nevus of right eye; Raised intraocular pressure of both eyes; Pseudophakia of both eyes; Presbyopia of both eyes 06/01/2024 Travel 05/28/2024 Refill [facility] [address] [place] [address] Aneesh Oliveira MD Chronic low back pain, unspecified back pain laterality, unspecified whether sciatica present 05/24/2024 Orders Only GENERIC EXTERNAL DATA DEPARTMENT Provider, Generic External Data 05/18/2024 10:30 AM EST Office Visit [facility] [address] [place] [address] Aneesh Oliveira MD Type 2 diabetes mellitus with other specified complication, without long-term current use of insulin ([facility]) (Primary Dx); Encounter for immunization; Chronic midline low back pain without sciatica; Stage 3a chronic kidney disease (CMS/HCC); Hypertension, unspecified type; On statin therapy 05/17/2024 Telephone [facility] [address] [place] [address] Marilou Jarrett MA Chart Prep 05/04/2024 Patient Outreach [facility] [address] [place] [address] Aneesh Oliveira MD Pre-visit Planning ([facility] screening was completed on 08/23/2023) 05/03/2024 Refill [facility] [address] [place] [address] Aneesh Oliveira MD 05/02/2024 Refill [facility] [address] [place] [address] Aneesh Oliveira MD Chronic constipation 05/01/2024 Refill [facility] [address] [place] [address] Aneesh Oliveira MD Chronic low back pain, unspecified back pain laterality, unspecified whether sciatica present 04/26/2024 Refill [facility] [address] [place] [address] Aneesh Oliveira MD Chronic low back pain, unspecified back pain laterality, unspecified whether sciatica present 04/12/2024 Refill [facility] [address] [place] [address] Aneesh Oliveira MD 04/12/2024 Travel 04/11/2024 Refill [facility] [address] [place] [address] Aneesh Oliveira MD Type 2 diabetes mellitus with other specified complication, without long-term current use of insulin ([facility]) 04/09/2024 Refill [facility] [address] [place], [place] [id number] Aneesh Oliveira MD Chronic low back pain, unspecified back pain laterality, unspecified whether sciatica present from Last 3 Months Immunizations Name Administration Dates Next Due Influenza High-dose Quadriva lent Preservative Free 03/22/2023,04/05/2022,03/26/2021 Influenza injectable quadriv alent IIV4 with preservative 05/17/2016 Influenza, High Dose Seasona l, Preservative Free 05/18/2024,03/14/2018 Influenza, IIV3, injectable 03/05/2011, 0 Influenza, Split (incl. boris fied surface antigen) 05/11/2012 Pneumococcal Conjugate PCV 20 02/01/2023 Pneumococcal Polysaccharide PPSV23 02/17/2014,,04/14/2000 TD (adult), 2 Lf tetanus tox oid, preservative free, adsorbed 07/06/2005,04/16/1996 Tdap 03/14/2018 Zoster, Recombinant 02/01/2023 Family History Medical History Relation Name Comments Diabetes Brother Coronary artery disease Father Diabetes Sister Relation Name Status Comments Brother Father Sister Social History Tobacco Use Types Packs/Day Years [...] Orientation Straight 04/12/2022 10 :14 AM EDT Last Filed Vital Signs Vital Sign Reading Time Taken Comments Blood Pressure 145/78 05/18/2024 11:09 AM EST Pulse 76 05/18/2024 10:44 AM EST Temperature 36.3 ??C (97.3 ??F) 05/18/2024 10:[address] Respiratory Rate 16 05/18/2024 10:44 AM EST Oxygen Saturation 98% 12/02/2023 3:56 PM EDT Inhaled Oxygen Concentration - - Weight 97.6 kg (215 lb 2 oz) 05/18/2024 10:44 AM EST Height 167.6 cm (5' 6 ) 05/18/2024 10:44 AM EST Body Mass Index 34.72 05/18/2024 10:44 AM EST Plan of Treatment Upcoming Encounters Date Type Department Care Team (Late st Contact Info) Description 07/17/2024 10:00 AM EST Medication Management [facility] [address] [place] [address] Sandra Rasheed, PharmD [address] [place] [address] 09/26/2024 10:45 AM EDT Office Visit [facility] [address] [place] [address] Name, MD Aneesh [address] [place] [address] 11/30/2024 10:00 AM EDT Office Visit [facility] [address] [place] [address] Nathanael, Jayne, OD [address] [place] [address] Health Maintenance Due Date Last Done Comments CT Colonography 1950 Dental Oral Exam 1950 Dental Prophylaxis 1950 FIT DNA/Cologuard 1950 FIT 1950 FOBT 1950 Sigmoidoscopy 1950 Derm Melanoma Skin Check 01/31/1951 Hepatitis A Vaccines (1 of 2 - Risk 2-dose series) 1969 Dental X-Ray: Bitewings 04/04/2010 04/03/2009 Hepatitis B Vaccines (1 of 3 - Risk 3-dose series) 2010 RSV Patients and Patients Aged 60 years or older (1 - Risk 60-74 years 1-dose series) 2010 Zoster Vaccines (2 of 2) 03/29/2023 02/01/2023 COVID-19 Vaccine ( season) 2024 10/26/2021, 04/29/2021, 09/23/2020, Additional history exists Diabetes: Hemoglobin A1C 08/16/2024 024, 10/24/2023, 08/23/2023, Additional history exists Depression Screening 08/22/2024 08/23/2023, 08/23/19 SDOH Screening 08/22/2024 08/23/2023 Dental X-Ray: Full Mouth 08/27/2024 08/26/2021, 03/14 Alcohol/Substance Use Screening 05/18/2025 05/18/2024 Diabetes: Foot Exam 05/18/2025 05/18/2024, 05/18/2024, 05/18/2024, Additional history exists Lipid Panel 05/24/2025 05/24/2024, 09/12, 10/08/2022, Additional history exists Eye Exam 06/01/2025 06/01/2024, 05/14, 06/01/2024, Additional history exists Tobacco Screening 06/04/2025 06/04/2024 Colonoscopy 02/10/2026 02/10/2023, 07/23/2012 Colorectal Cancer Screening 02/10/2026 DTaP/Tdap/Td Vaccines (2 - Td or Tdap) 03/14/2028 03/14/2018, 07/06/2005, 04/16/1996 Hepatitis C Screening Completed 11/25/2020 Pneumococcal Vaccine: 65+ Years Completed 02/01/2023, 02/17/2014, 03/15/2008, Additional history exists Influenza Vaccine Completed 05/18/2024, , 04/05/2022, Additional history exists HIB Vaccines Aged Out No longer eligi ble based on patient's age to complete this topic HPV Vaccines Aged Out No longer eligi ble based on patient's age to complete this topic IPV Vaccines Aged Out No longer eligi ble based on patient's age to complete this topic Meningococcal Vaccine Aged Out No fernanda reese eligible based on patient's age to complete this topic RSV under 20 months Aged Out No longe r eligible based on patient's age to complete this topic Rotavirus Vaccines Aged Out No longer eligible based on patient's age to complete this topic Procedures Procedure Name Priority Date/Time Associated Diagnosis Comments VASC US LOWER EXTREMITY ARTERIAL DUPLEX BILATERAL WITH BAYLEE Routine 06/20/2024 1:51 PM EST OCT, RETINA - OU - BOTH EYES Routine 06/01/2024 3:30 PM EST Epiretinal membrane, both eyes BASIC METABOLIC PANEL Routine 05/24/2024 8:27 AM EST LIPID PANEL, STANDARD Routine 05/24/2024 8:27 AM EST On statin therapy URINALYSIS, COMPLETE Routine 05/24/2024 8:23 AM EST POCT GLUCOSE Routine 05/18/2024 10:47 AM EST Type 2 diabetes mellitus with other specified complication, without long-term current use of insulin (CMS/HCC) POCT GLYCATED HEMOGLOBIN, TOTAL Routine 05/18/2024 10:47 AM EST Type 2 diabetes mellitus with other specified complication, without long-term current use of insulin (CMS/HCC) HM COLONOSCOPY Routine 02/10/2023 PANORAMIC RADIOGRAPHIC IMAGE Routine 08/26/2021 12:00 AM EDT ZZZ HISTORICAL HEPATITIS C AB W/REFL TO HCV RNA, QN, PCR Routine 11/25/2020 10:49 AM EDT DIAGNOSTIC - DIAGNOSTIC IMAGING - INTRAORAL - COMPREHENSIVE SERIES OF RADIOGRAPHIC IMAGES Routine 04/03/2009 12:00 AM EDT from Last 3 Months or Most Recently Relevant to Health Maintenance Results * VASC US Lower Extremity Arterial Duplex Bilateral With Baylee (06/20/2024 1:51 PM EST) 06/20/2024 1:51 PM EST Narrative [facility] - 06/20/2024 1:53 PM EST ? [facility] ?[address] ?[place] [address] ? Ultrasound Report ? Signed ? Patient: Gautam,Josue ?MR#: [id number] ?? [id number] ? : 1950 ?Acct:[id number] ? Age/Sex: 73 / M ?ADM Date: 06/18/24 ? Loc: HO.US ? Attending Dr: Rodney Smith MD ? Ordering Physician: Rodney Smith MD ?? Date of Service: 06/18/24 ?? Procedure(s): US arterial duplex BI w/ BAYLEE ?? Accession Number(s): [id number] ? cc: Rodney Smith MD; Name,Aneesh RIVERS ? CLINICAL HISTORY: I73.9 - Peripheral vascular disease, unspecified ? Bilateral lower extremity arterial ultrasound and ABIs. ? Comparison: None ? Findings: ?? Right lower extremity: Biphasic flow with normal velocity in the common ?? femoral, deep femoral, superficial femoral and popliteal arteries. ?? Biphasic to monophasic flow in the posterior tibial artery with normal ?? velocity. Peroneal artery not visualized. Heavily calcified, runoff ?? vessels. Cannot confirm flow in the JAIR. Dampened monophasic flow in the ?? dorsalis pedis. ? Left lower extremity: Biphasic flow with minimal velocity elevation in the ?? common femoral artery at 151 centimeters/second. Biphasic flow with normal ?? velocities in the deep femoral, superficial femoral and popliteal ?? arteries. Peroneal artery not identified. Biphasic to monophasic flow in ?? the proximal posterior tibial artery appears occluded more distally. ?? Apparent occluded anterior tibial artery with severely dampened monophasic ?? reconstituted flow in the dorsalis pedis. ? ABIs: Elevated brachial pressures right at 208 mm Hg, left 182 mm Hg. ?? Highest right ankle pressure at 209 mm Hg with normal right BAYLEE at 1.0. ?? Highest left ankle pressure at 210 mm Hg with normal left BAYLEE at 1.0. ?? Dampened amplitude and loss of dicrotic notch on PVR, slightly more ?? pronounced on the right. ? Impression: ?? No sonographic features for hemodynamically significant inflow or femoral ?? popliteal stenosis on either side. ?? Heavily calcified runoff vessels limiting detail. Biphasic to monophasic ?? flow. ?? Possibly occluded bilateral anterior tibial artery and mid through distal ?? left posterior tibial artery. Nonvisualization of the peroneal arteries. ?? However, normal bilateral ABIs militating against hemodynamically ?? significant disease. ?? Diminished amplitude of bilateral PVRs, more pronounced on the right. ? This document has been electronically signed by: Ye Ramirez MD on ?? 06/20/2024 13:51:41 ? Dictated By: ?Ye Ramirez MD ? Signed By: ?<Electronically signed by Ye Ramirez MD in OV> ? 06/20/24 1353 ? DD/ 1351 ? TD/TT: 06/20/24 1351 ? Mothers Helper: ? Procedure Note Donjuanter, Image - 06/20/2024 [place] [address] Ultrasound Report Signed Patient: Sylvia Gautam#: [id number] 713 : 1950cct:[id number] Age/Sex: 73 / MADM Date: 06/18/24 Loc: HO.US Attending Dr: Rodney Smith MD Ordering Physician: Rodney Smith MD Date of Service: 06/18/24 Procedure(s): US arterial duplex BI w/ BALYEE Accession Number(s): [id number] cc: Rodney Smith MD; Name,Aneesh RIVERS CLINICAL HISTORY: I73.9 - Peripheral vascular disease, unspecified Bilateral lower extremity arterial ultrasound and ABIs. Comparison: None Findings: Right lower extremity: Biphasic flow with normal velocity in the common femoral, deep femoral, superficial femoral and popliteal arteries. Biphasic to monophasic flow in the posterior tibial artery with normal velocity. Peroneal artery not visualized. Heavily calcified, runoff vessels. Cannot confirm flow in the JAIR. Dampened monophasic flow in the dorsalis pedis. Left lower extremity: Biphasic flow with minimal velocity elevation in the common femoral artery at 151 centimeters/second. Biphasic flow with normal velocities in the deep femoral, superficial femoral and popliteal arteries. Peroneal artery not identified. Biphasic to monophasic flow in the proximal posterior tibial artery appears occluded more distally. Apparent occluded anterior tibial artery with severely dampened monophasic reconstituted flow in the dorsalis pedis. ABIs: Elevated brachial pressures right at 208 mm Hg, left 182 mm Hg. Highest right ankle pressure at 209 mm Hg with normal right BAYLEE at 1.0. Highest left ankle pressure at 210 mm Hg with normal left BAYLEE at 1.0. Dampened amplitude and loss of dicrotic notch on PVR, slightly more pronounced on the right. Impression: No sonographic features for hemodynamically significant inflow or femoral popliteal stenosis on either side. Heavily calcified runoff vessels limiting detail. Biphasic to monophasic flow. Possibly occluded bilateral anterior tibial artery and mid through distal left posterior tibial artery. Nonvisualization of the peroneal arteries. However, normal bilateral ABIs militating against hemodynamically significant disease. Diminished amplitude of bilateral PVRs, more pronounced on the right. This document has been electronically signed by: Ye Ramirez MD on 06/20/2024 13:51:41 Dictated By: Ye Ramirez MD Signed By: <Electronically signed by Ye Ramirez MD in OV> 06/20/24 1353 DD/ 1351 TD/TT: 06/20/24 1351 Mothers Helper: [facility] External Provider CV VASC ULAR PROCEDURES Edited Result - Final [facility] [address] [place] [id number] * OCT, Retina - OU - Both Eyes (06/01/2024 3:30 PM EST) Mansi Jayne Huffman, OD - 06/21/2024 2:31 PM EST OCT [facility] Optical Coherence Tomography Interpretation Report Measurements: OD ??OS Macula Thickness ??318 microns ??281 microns Test findings: Right eye (OD): Significant epiretinal membrane (ERM) with foveal traction and tenting, no cystoid macular edema (CME), choroidal nevus superonasal to macula, no retinal pigment epithelium (RPE) disruption, no subretinal fluid (SRF) Left eye (OS): Significant epiretinal membrane (ERM) with reduced foveal contour, fibrovascular proliferation along sup-temp arcade causing significant cystic edema superior to the fovea, no retinal pigment epithelium (RPE) disruption, no subretinal fluid (SRF) Impression and Plan: Right eye (OD): resolution of edema that was superotemporal to the fovea on the 06/2023 scan. Left eye (OS): significant edema present superior to the fovea compared to 06/2023 scan. Given severity of epiretinal membrane (ERM) and progressive cystic changes in the left eye, will refer to retina specialist for further evaluation. Jayne Huffman OD OPHTH TOMOGRAPHY Final Result * (ABNORMAL) Lipid Panel, Standard (05/24/2024 8:27 AM EST) Triglycerides 185(H) <150 mg/dL [facility] Comment:Desirable Triglyceri de: less than 150 mg/dLBorderline High Triglyceride 150-199 mg/dLHigh Triglyceride: 200-499 mg/dLVery High Triglyceride: greater than or equal to 5OO mg/dL Cholesterol 162 <200 mg/dL [facility] Comment:Desirable Cholestero l: less than 200 mg/dLBorderline High Cholesterol: 200-239 mg/dLHigh Cholesterol: greater than 239 mg/dL LDL Cholesterol Calculated 88 <100 mg/dL [facility] Comment:Desirable LDL: less than 100 mg/dLNear Optimal/Above Optimal LDL: 110- 129 mg/dLBorderline High LDL: 130-159 mg/dLHigh LDL: 160-189 mg/dLVery High LDL: greater than or equal to 190 mg/dL HDL Cholesterol 37(L) >40 mg/dL [facility] Comment:Desirable HDL: great er than 40 mg/dL Note: This HDL assay may give artificially low results in patients with liver disease. Blood Venous blood specimen / Unknown 05/24/2024 8:27 AM EST 05/24/2024 8:27 AM EST Aneesh Oliveira MD LAB BLOOD ORDERABLES Final Resul t [facility] [address] [place] [address] [phone] * (ABNORMAL) Basic Metabolic Panel (05/24/2024 8:27 AM EST) Sodium 140 135 - 145 mmol/L [facility] Potassium 3.9 3.3 - 5.1 mmol/L [facility] Chloride 102 96 - 108 mmol/L [facility] Carbon Dioxide 26 22 - 29 mmol/L [facility] Anion Gap 16 12 - 20 [facility] Urea Nitrogen (BUN) 27(H) 9 - 16 mg/dL [facility] Creatinine, Serum 1.37 0.5 - 1.4 mg/dL [facility] Estimated Glomerular Filt Rate 51 [facility] Comment:Chronic Kidney Disea se: Estimated GFR < 60 mL/min/1.41b3Rkytbh Kidney Disease: Estimated GFR < 15 mL/min/1.73m2 Glucose 349(H) 60 - 115 mg/dL [facility] Calcium 9.7 8.4 - 10.2 mg/dL [facility] 05/24/2024 8:27 AM EST 05/24/2024 8:27 AM EST us Generic External Data Provider LAB BLOOD ORDERAB LES Final Result Performing Organization Address City/State/[facility] Co de Phone Number [facility] [address] [place] [phone] * (ABNORMAL) Urinalysis Complete (05/24/2024 8:23 AM EST) Color Urine Yellow [facility] Appearance Urine Clear [facility] PH 6.5 5.0 - 9.0 [facility] Glucose Urine UA >=1000(A) Negative mg/dL [facility] Urine Blood Negative Negative [facility] Specific [place] - Urine 1.025 1.005 - 1.025 [facility] Urine Protein 100 (2+)(A) Neg-Trace mg/dL [facility] Urine Ketones Negative Negative mg/dL [facility] Nitrite Urine Negative Negative [facility] Leukocyte Esterase Urine Negative Negative [facility] RBC Urine 0-2 0 - 2 /HPF [facility] Urine WBC 0-5 0 - 5 /HPF [facility] Urine Squamous Epithelial Cell 0-2 0 - 2 /HPF [facility] Urine Bacteria None Seen None Seen [facility] Hyaline Casts, Urine 0-2 0 - 2 /LPF [facility] 05/24/2024 8:23 AM EST 05/24/2024 9:00 AM EST Generic External Data Provider LAB URINE ORDERAB LES Final Result [facility] [address] [place] [phone] [phone] * (ABNORMAL) POCT HGB A1C (05/18/2024 10:47 AM EST) Pathologist [facility] Hemoglobin A1C 8.9(A) 4.0 - 6.0 % Blood 05/18/2024 10:4 7 AM EST Aneesh Oliveira MD POINT OF CARE TEST ENTER/EDIT OR DERABLES Final Result * POCT glucose (05/18/2024 10:47 AM EST) Pathologist [facility] Glucose Blood, POC 118 60 - 200 mg/dL Blood Capillary blood specimen / Unknown 05/18/2024 10:47 AM EST Aneesh Oliveira MD POINT OF CARE TEST ENTER/EDIT OR DERABLES Final Result * (ABNORMAL) Hm Colonoscopy (02/10/2023) Pathologist [facility] Colonoscopy Abnormal(A ) Normal Aneesh Oliveira MD HEALTH MAINTENANCE Final Result * HEPATITIS C AB W/REFL TO HCV RNA, QN, PCR (11/25/2020 10:49 AM EDT) Pathologist [facility] HEPATITIS C ANTIBODY NON-REACT TOM NON-REACT TOM [facility] INDEX 0.00 <1.00 [facility] Comment: ?? HCV antibody was non-reactive. There is no laboratory ?? evidence of HCV infection. ?? In most cases, no further action is required. However, if recent HCV exposure is suspected, a test for HCV RNA (test code 18341) is suggested. ?? For additional information please refer to http://MedEncentive.Appbyme/faq/TWA48t4 (This link is being provided for informational/ educational purposes only.) ?? 11/25/2020 10:4 9 AM EDT us Aneesh Oliveira MD HISTORICAL/NON ORDERABLE LABS Fi nal Result [facility] Anywhere [address] from Last 3 Months or Most Recently Relevant to Health Maintenance Insurance [facility] DUAL COMPLETE DENTAL - [facility] Care Teams Blemish Remover Relationship Specialty Start Date End Date Name, MD Aneesh [address] [place] [address] PCP - General Family Medicine 02/14/18
--- OUTSIDE RECORDS SUMMARY | 2024-07-10 10:45 | XMS_ITS | Encounter Summary ---
Author Organization [employer] Address [address] [facility] 7t [place] [address] Care Team Providers Care Summer Law Associate Name Role Phone Name, Aneesh RIVERS Primary Care Provider [phone] Reason for Visit * Reason Comments Med Refill Encounter Details Date Type Department Care Team ([facility] st Contact Info) Description 05/02/2024 Refill [facility] [address] [place], [place] [phone] Name, MD Aneesh [address] [place] [address] Chronic constipation Social History Tobacco Use Types [...] Description 07/17/2024 10:00 AM EST Medication Management [facility] [address] [place] [address] Sandra Rasheed, PharmD [address] [place] [address] 09/26/2024 10:45 AM EDT Office Visit [facility] [address] [place] [address] Aneesh Oliveira MD [address] [place] [address] 11/30/2024 10:00 AM EDT Office Visit [facility] [address] [place] [address] Nathanael, Jayne, OD [address] [place] [address] documented as of this encounter Visit Diagnoses Diagnosis Chronic constipation Unspecified constipation documented in this encounter Additional Health Concerns Assessment Noted Time PHQ-9 Depression Total Score: 4 08/23/19 24 9:44 AM EDT documented as of this encounter Care Teams Summer Law Associate Relationship Specialty Start Date End Date Aneesh Oliveira MD [address] [place] [phone] PCP - General Family Medicine 02/14/18 documented as of this encounter
--- OUTSIDE RECORDS SUMMARY | 2024-07-10 10:45 | XMS_ITS | Encounter Summary ---
Author Organization [employer] Address [address] 7t [place] [address] Care Team Providers Care Electric Motor Repairer Name Role Phone Name, Aneesh RIVERS Primary Care Provider [phone] Reason for Visit * Reason Comments Med Refill Encounter Details Date Type Department Care Team ([facility] st Contact Info) Description 01/12/2024 Refill [facility] [address] [place], [place] [phone] Name, MD Aneesh 230 [place] [address] Chronic low back pain, unspecified back pain laterality, unspecified whether sciatica present Social History Tobacco Use Types Packs/Day Years [...] Description 07/17/2024 10:00 AM EST Medication Management [facility] [address] [place] [address] Sandra Rasheed, PharmD [address] [place] [address] 09/26/2024 10:45 AM EDT Office Visit [facility] [address] [place] [phone] NameAneesh MD [address] [place] [address] 11/30/2024 10:00 AM EDT Office Visit [facility] [address] [place] [address] Nathanael, Jayne, OD [address] [place] [address] documented as of this encounter Visit Diagnoses Diagnosis Chronic low back pain, unspecified back pain laterality, unspecified whether sciatica present documented in this encounter Additional Health Concerns Assessment Noted Time PHQ-9 Depression Total Score: 4 08/23/19 24 9:44 AM EDT documented as of this encounter Care Teams Electric Motor Repairer Relationship Specialty Start Date End Date Aneesh Oliveira MD [address] [place] [phone] PCP - General Family Medicine 02/14/18 documented as of this encounter
--- OUTSIDE RECORDS SUMMARY | 2024-07-10 10:45 | XMS_ITS | Encounter Summary ---
Author Organization [employer] Address [address] [facility] 7t [place] [address] Care Team Providers Care Crna Name Role Phone Name, Aneesh RIVERS Primary Care Provider [phone] Reason for Visit * Reason Onset Date Comments FYI 08/23/2023 Encounter Details Date Type Department Care Team (Late st Contact Info) Description 08/23/2023 Telephone [facility] [address] [place], [place] [phone] Name, MD Aneesh 230 [place] [address] FYI Social History Tobacco Use Types Packs/Day Years [...] encounter Miscellaneous Notes * Telephone Encounter - Ronnie Laguna - 08/23/2023 3:03 PM EDT Tc from [facility]idy with [facility] stating pt no longer wants to continue care with them. Leidy stated pt no showed 3 appts in a row and when asked about it pt said it was due to to transportation. Pt claims they are irresponsible and that they don't communicate. Pt stated he will continue care with PCP. If any questions please contact Leidy at [phone]. documented in this encounter Plan of Treatment Upcoming Encounters Date Type Department Care Team ([facility] st Contact Info) Description 07/17/2024 10:00 AM EST Medication Management [facility] [address] [place] [address] Sandra Rasheed, PharmD 230 [place] [address] 09/26/2024 10:45 AM EDT Office Visit [facility] [address] [place] [address] Name, MD Aneesh 230 [place] [address] 11/30/2024 10:00 AM EDT Office Visit [facility] [address] [place] [address] Jayne Huffman, BRYANT 230 [place] [address] documented as of this encounter Visit Diagnoses Not on filedocumented in this encounter Additional Health Concerns Assessment Noted Time PHQ-9 Depression Total Score: 4 08/23/19 24 9:44 AM EDT documented as of this encounter Care Teams Crna Relationship Specialty Start Date End Date Name, MD Aneesh 230 [place] [address] PCP - General Family Medicine 02/14/18 documented as of this encounter
--- OUTSIDE RECORDS SUMMARY | 2024-07-10 10:45 | XMS_ITS | Encounter Summary ---
Author Organization [employer] Address [address] [facility] 7[address] [place] [address] Care Team Providers Care Airplane Cabin Attendant Name Role Phone Name, Aneesh RIVERS Primary Care Provider [phone] Encounter Details Date Type Department Care Team ([facility] st Contact Info) Description 03/23/2023 Orders Only [facility] [address] [place] [address] Amber Brantley LPN Social History Tobacco Use Types Packs/Day Years Used Date Smoking Tobacco: Never Smokeless Tobacco: Never Alcohol Use Standard Drinks/Week Comments Never 0 (1 standard drink = 0.6 oz pur e alcohol) PHQ-2 Answer Date Recorded Patient Health Questionnaire-2 Score 0 07/13/2022 Housing Stability Answer Date Recorded What is your housing situation today? I have housing today, but I am worried about losing housing in the future 03/22/[address] you li ve. Do you have problems with any of the following? None of the above 03/22/2023 Food Insecurity Answer Date Recorded Within the past 12 months, y ou worried that your food would run out before you got money to buy more: Never True 03/22/2023 Within the past 12 months,th e food you bought just didn't last and you didn't have enough money to get more: Never True 03/2023 Transportation Answer Date Recorded In the past 12 months, has l ack of transportation kept you from medical appts, meetings, work or from getting things needed for daily living? Yes, it has kept me from non-medical meetings, work, or getting things that I need 03/22/2023 Utilities Answer Date Recorded In the past 12 months, has t he electric, gas, oil or water company threatened to shut off services in your home? No 03/22/2023 Depression Answer Date Recorded Patient Health Questionnaire-2 Score 0 07/13/2022 Sex and Gender Information Value Date Recorded Sex Assigned at Male 04/12/2022 10:14 AM EDT Legal Sex Male 10:14 AM EDT Gender Identity Male 04/12/2022 10:14 AM EDT Sexual Orientation Straight 04/12/2022 10 :14 AM EDT documented as of this encounter Plan of Treatment Upcoming Encounters Date Type Department Care Team (Late st Contact Info) Description 07/17/2024 10:00 AM EST Medication Management [facility] [address] [place] [address] Sandra Rasheed, PharmD 230 [place] [address] 09/26/2024 10:45 AM EDT Office Visit [facility] [address] [place] [phone] NameAneesh MD 230 [place] [address] 11/30/2024 10:00 AM EDT Office Visit [facility] [address] [place] [address] Nathanael, Jayne, OD [address] [place] [address] documented as of this encounter Visit Diagnoses Not on filedocumented in this encounter Care Teams Airplane Cabin Attendant Relationship Specialty Start Date End Date Aneesh Oliveira MD [address] [place] [id number] PCP - General Family Medicine 02/14/18 documented as of this encounter
--- OUTSIDE RECORDS SUMMARY | 2024-07-10 10:45 | XMS_ITS | Encounter Summary ---
Author Organization [employer] Address [address] [facility] 7t [place] [address] Care Team Providers Care Quality Compliance Manager Name Role Phone Name, Aneesh RIVERS Primary Care Provider [phone] Reason for Visit * Reason Comments Med Refill Encounter Details Date Type Department Care Team ([facility] st Contact Info) Description 06/25/2024 Refill [facility] [address] [place], [place] [phone] Name, MD Aneesh [address] [place] [address] Hypertension, unspecified type; Prostatism; Type 2 diabetes mellitus with hyperglycemia (CMS/HCC); [facility] (current) use of insulin ([facility]) Social History Tobacco Use Types Packs/Day Years [...] Description 07/17/2024 10:00 AM EST Medication Management [facility] [address] [place] [address] Sandra Rasheed, PharmD [address] [place] [address] 09/26/2024 10:45 AM EDT Office Visit [facility] [address] [place] [address] Name, MD Aneesh [address] [place] [address] 11/30/2024 10:00 AM EDT Office Visit [facility] [address] [place] [address] Jayne Huffman, OD [address] [place] [address] documented as of this encounter Visit Diagnoses Diagnosis Hypertension, unspecified type Prostatism Unspecified hyperplasia of prostate without urinary obstruction and other lower urinary tract symptoms (LUTS) Type 2 diabetes mellitus with hyperglycemia (CMS/HCC) [facility] (current) use of insulin (CMS/HCC) documented in this encounter Additional Health Concerns Assessment Noted Time PHQ-9 Depression Total Score: 4 08/23/19 24 9:44 AM EDT documented as of this encounter Care Teams Quality Compliance Manager Relationship Specialty Start Date End Date Name, MD Aneesh [address] [place] [address] PCP - General Family Medicine 02/14/18 documented as of this encounter
--- OUTSIDE RECORDS SUMMARY | 2024-07-10 10:45 | XMS_ITS | Encounter Summary ---
Author Organization [employer] Address [address] 7t [place] [address] Care Team Providers Care Farm Equipment Engineer Name Role Phone Name, Aneesh RIVERS Primary Care Provider Reason for Visit * Reason Comments Med Refill Encounter Details Date Type Department Care Team ([facility] st Contact Info) Description 04/09/2024 Refill [facility]S [address] [place], [place] [phone] Name, MD Aneesh [address] [place] [address] Chronic low back pain, unspecified back pain [...] Description 07/17/2024 10:00 AM EST Medication Management [facility] [address] [place] [phone] Sandra Rasheed, PharmD [address] [place] [address] 09/26/2024 10:45 AM EDT Office Visit [facility] [address] [place] [address] NameAneesh MD [address] [place] [address] 11/30/2024 10:00 AM EDT Office Visit [facility] [address] [place] [address] Nathanael, Jayne, OD [address] [place] [address] documented as of this encounter Visit Diagnoses Diagnosis Chronic low back pain, unspecified back pain laterality, unspecified whether sciatica present documented in this encounter Additional Health Concerns Assessment Noted Time PHQ-9 Depression Total Score: 4 08/23/19 24 9:44 AM EDT documented as of this encounter Care Teams Farm Equipment Engineer Relationship Specialty Start Date End Date Aneesh Oliveira MD [address] [place] [address] PCP - General Family Medicine 02/14/18 documented as of this encounter
--- OUTSIDE RECORDS SUMMARY | 2024-07-10 10:45 | XMS_ITS | Encounter Summary ---
Author Organization [employer] Address [address] [facility] 7t [place] [address] Care Team Providers Care Electrician Underground Name Role Phone Name, Aneesh RIVERS Primary Care Provider [phone] Reason for Visit * Reason Comments Med Refill Encounter Details Date Type Department Care Team ([facility] st Contact Info) Description 07/10/2024 Refill [facility] P[facility]S [address] [place], [place] [phone] Name, MD Aneesh [address] [place] [address] Type 2 diabetes mellitus with hyperglycemia (CMS/HCC); intermediate manager (current) use of insulin (CMS/HCC) Social History Tobacco Use Types Packs/Day Years [...] Description 07/17/2024 10:00 AM EST Medication Management [facility] [address] [place] [address] Sandra Rasheed, PharmD [address] [place] [address] 09/26/2024 10:45 AM EDT Office Visit [facility] [address] [place] [address] Name, MD Aneesh [address] [place] [address] 11/30/2024 10:00 AM EDT Office Visit [facility] [address] [place] [address] Nathanael, Jayne, OD 230 [place] [address] documented as of this encounter Visit Diagnoses Diagnosis Type 2 diabetes mellitus with hyperglycemia (CMS/HCC) prison (current) use of insulin (CMS/HCC) documented in this encounter Additional Health Concerns Assessment Noted Time PHQ-9 Depression Total Score: 4 08/23/19 24 9:44 AM EDT documented as of this encounter Care Teams Electrician Underground Relationship Specialty Start Date End Date Name, MD Aneesh [address] [place] [address] PCP - General Family Medicine 02/14/18 documented as of this encounter
--- OUTSIDE RECORDS SUMMARY | 2024-07-10 10:45 | XMS_ITS | Encounter Summary ---
Author Organization [employer] Address [address] [facility] 7t [place] [address] Care Team Providers Care Bandage Maker Name Role Phone Name, Aneesh RIVERS Primary Care Provider [phone] Reason for Visit * Reason Comments Med Refill Encounter Details Date Type Department Care Team ([facility] st Contact Info) Description 08/18/2023 Refill [facility] 230 [place], [place] [phone] Name, MD Aneesh [address] [place] [address] Social History Tobacco Use Types Packs/Day Years [...] worried about losing housing in the future 03/30/[address] you li ve. Do you have problems with any of the following? None of the above 03/30/2023 Food Insecurity Answer Date Recorded Within the past 12 months, y ou worried that your food would run out before you got money to buy more: Never True 03/30/2023 Within the past 12 months,th e food you bought just didn't last and you didn't have enough money to get more: Never True Transportation Answer Date Recorded In the past [...] shut off services in your home? No 03/30/2023 Depression Answer Date Recorded Patient Health Questionnaire-2 [...] 10:00 AM EST Medication Management [facility] [address] [place] [address] Sandra Rasheed, PharmD [address] [place] [address] 09/26/2024 10:45 AM EDT Office Visit [facility] [address] [place] [address] Name, MD Aneesh [address] [place] [address] 11/30/2024 10:00 AM EDT Office Visit [facility] [address] [place] [address] Nathanael, Jayne, OD 230 [place] [address] documented as of this encounter Visit Diagnoses Not on filedocumented in this encounter Care Teams Bandage Maker Relationship Specialty Start Date End Date Name, MD Aneesh [address] [place] [address] PCP - General Family Medicine 02/14/18 documented as of this encounter
== END 2024-07-10 11:08 | disposition home or self-care (01) ==
PROVIDERS: PCP Internal Medicine Geriatric Medicine; Visit Provider Surgery Vascular Surgery
DX: I73.9 Peripheral vascular disease, unspecified (principal); L03.116 Cellulitis of left lower limb
CPT/HCPCS: 99214; G2211

== ENCOUNTER → 2024-07-10 09:59 | Outpatient (BNVA) | payer OTHER, SELFPAY | PROVIDERS: PCP Internal Medicine Geriatric Medicine; Visit Provider Surgery Vascular Surgery | DX: I73.9 Peripheral vascular disease, unspecified (principal); L03.116 Cellulitis of left lower limb | CPT/HCPCS: 99212 ==

== ENCOUNTER 2024-07-16 10:27 | Outpatient (AMB) | payer OTHER, SELFPAY ==
[2024-07-16 10:28] VITALS: BP 162/64; PULSE 81; O2SAT 95; BMI 34.1
--- NOTE | 2024-07-16 10:28 | HO.NEPHOV ---
Vital Signs 07/16/24 10:28 Height 5 ft 6 in Weight 211 lb BMI 34.1 BP 162/64 H Blood Pressure Location Lt brachial Position Sitting Pulse 81 Pulse Source Pulse Oximeter Pulse Oximetry (%) 95 Oxygen Delivery Method Room Air Intake Visit Reasons: CKD-Conf Textile Screen Maker Required: No Textile Screen Maker Services: Textile Screen Maker Offered & Declined (Daughter will translate) Accompanied by: Daughter Allergies lisinopril [LISINOPRIL] Allergy (Severe, Verified 07/16/24 10:30) ANGIOEDEMA prednisone [PREDNISONE] Allergy (Mild, Verified 07/16/24 10:30) ITCHY HPI Comments Details: 72-year-old man with a history of longstanding hypertension and diabetes mellitus with CKD. He has had episodes of acute kidney injury an currently renal function is back to baseline. Baseline creatinine is less than 1.0. He has difficult to control blood sugars. Recent A1c was 8.2%. Blood pressure has been well controlled. He has microalbuminuria. He has not any WAI inhibitor due to angioedema requiring ICU admission. He is currently on Invokana History of nontoxic multinodular goiter. Textile Screen Maker service was used Cellulitis of left leg : s/p antibiotics 03/08/24 Doing better Seen by Dr. Smith s/p Successful plasty of left popliteal and peroneal artery on 03/07/24 04/23/24 c/o body pain;On statins 07/16/24 On ozempic- lost about 10 lbs Did not take anti hypertensives today [facility] Medical History NAFLD (nonalcoholic fatty liver disease) Transaminitis Basal cell carcinoma (BCC) Skin lesion of left lower extremity Heart murmur Familial hypocalciuric hypercalcemia Multinodular thyroid Vitamin D deficiency HLD (hyperlipidemia) HTN (hypertension) T2DM (type 2 diabetes mellitus) Surgical History Hx of melanoma excision Hx of esophagogastroduodenoscopy Hx of colonoscopy Hx of appendectomy Hx of cholecystectomy Family History Father CVD (cardiovascular disease) Diabetes Brother CVD (cardiovascular disease) Diabetes FH: heart attack Social History Household Members: Family Housing: House Do you presently have visiting nurse or other home services: Yes (visiting nurse 2x week) Alcohol intake: never Patient Tobacco Use Status: Never used Tobacco service: No Current occupational status: unemployed Physical Exam Vital Signs: Last Vital Signs Pulse 81 07/16/24 10:28 BP 162/64 H 07/16/24 10:28 Pulse Ox 95 07/16/24 10:28 Oxygen Delivery Method Room Air 07/16/24 10:28 BMI result Body Mass Index 34.1 Comfortable Neck supple no JVD. Lungs entry equal no rales. Heart S1-S2 heard no gallop or rub. Abdomen soft nontender. Neuro alert awake oriented. No asterixis. Extremities no edema. Results Reviewed Nephrology Results: Hgb 15.8 g/dl (14.0-18.0) 03/12/24 WBC 10.0 X10*3/uL (4.8-10.8) 03/12/24 Plt Count 307 X10*3/uL (160-400) 03/12/24 Sodium 140 mmol/L (135-145) 05/24/24 Potassium 3.9 mmol/L (3.3-5.1) 05/24/24 Chloride 102 mmol/L (96-108) 05/24/24 Carbon Dioxide 26 mmol/L (22-29) 05/24/24 BUN 27 mg/dL (9-16) H 05/24/24 Creatinine 1.37 mg/dL (0.5-1.4) 05/24/24 Calcium 9.7 mg/dL (8.4-10.2) 05/24/24 Urine Protein 100 (2+) mg/dL (Neg-Trace) H 05/24/24 Urine Creatinine 66.91 mg/dL 03/12/24 Assessment & Plan Assessment & Plan (1) CKD (chronic kidney disease): Code(s): N18.9 - Chronic kidney disease, unspecified Category: Medical Plan: Due to underlying diabetic hypertensive kidney disease. No evidence of active glomerulonephritis or obstructive uropathy. Patient's serum creatinine is less than 1.0. Goal is to slow the progression of renal disease. Continue to avoid nephrotoxic agents including NSAIDs. Continue to use SGLT 2 inhibitors for cardiorenal protection Unable to use Wai inhibitors due to history of angioedema Creatinine bumped up to 1.5 Probably form hypoperfusion post operative Creatinine has improved (2) HTN (hypertension): Comment: Stable Code(s): I10 - Essential (primary) hypertension Category: Medical Plan: Blood pressure has been acceptable Elevated today due to skipping the dose Encouraged to stay complaint Continue current regimen. Low-salt diet (3) T2DM (type 2 diabetes mellitus): Code(s): E11.9 - Type 2 diabetes mellitus without complications Category: Medical Qualifiers: Diabetes mellitus complication status: with hyperglycemia Diabetes mellitus director long term care insulin use: with snf use Qualified Code(s): E11.65 - Type 2 diabetes mellitus with hyperglycemia; Z79.4 - halfway (current) use of insulin Plan: Goal A1c less than 7% Follow with endocrinology Discussed weight (4) Hypercalcemia: Code(s): E83.52 - Hypercalcemia Category: Medical Plan: Ca down to 9.7 No MCGP Orders: Orders Basic Metabolic Panel 4 Months N18.9 - Chronic kidney disease, unspecified Coding Level of Care Code Est Pt Level 4 (90197) Diagnoses CKD (chronic kidney disease) N18.9 Hypertension, unspecified type I10 Type 2 diabetes mellitus with hyperglycemia, with long-term current use of insulin E11.65; Z79.4 Diabetes mellitus complication status: with hyperglycemia Diabetes mellitus director long term care insulin use: with snf use Hypercalcemia E83.52
--- OUTSIDE RECORDS SUMMARY | 2024-07-16 11:17 | XMS_ITS | Encounter Summary ---
Author Organization [employer] Address [address] [facility] [place] [address] Care Team Providers Care Cardiology Teacher Name Role Phone Name, Aneesh RIVERS Primary Care Provider [phone] Reason for Visit * Reason Comments Med Refill Encounter Details Date Type Department Care Team ([facility] st Contact Info) Description 04/09/2024 Refill [facility] [address] [place], [place] [phone] Name, MD Aneesh [address] [place] [address] Chronic low back pain, unspecified back pain [...] Description 07/17/2024 10:00 AM EST Medication Management [facility] [address] [place] [phone] Sandra Rasheed, PharmD [address] [place] [address] 09/26/2024 10:45 AM EDT Office Visit [facility] [address] [place] [address] NameAneesh MD [address] [place] [address] 11/30/2024 10:00 AM EDT Office Visit [facility] [address] [place] [address] Nathanael, Jayne, OD [address] [place] [address] documented as of this encounter Visit Diagnoses Diagnosis Chronic low back pain, unspecified back pain laterality, unspecified whether sciatica present documented in this encounter Additional Health Concerns Assessment Noted Time PHQ-9 Depression Total Score: 4 08/23/19 24 9:44 AM EDT documented as of this encounter Care Teams Cardiology Teacher Relationship Specialty Start Date End Date Aneesh Oliveira MD [address] [place] [phone] PCP - General Family Medicine 02/14/18 documented as of this encounter
--- OUTSIDE RECORDS SUMMARY | 2024-07-16 11:17 | XMS_ITS | Encounter Summary ---
Author Organization [employer] Address [address] [facility] 7[address] [place] [address] Care Team Providers Care Reinforcing Iron Worker Helper Name Role Phone Name, Aneesh RIVERS Primary Care Provider [phone] Reason for Visit * Reason Comments Med Refill Encounter Details Date Type Department Care Team ([facility] st Contact Info) Description 08/18/2023 Refill [facility] [address] [place], [place] [phone] Name, MD Aneesh [address] [place] [address] Social History Tobacco Use Types Packs/Day Years [...] 10:00 AM EST Medication Management [facility] [address] [place] [address] Sandra Rasheed, PharmD [address] [place] [address] 09/26/2024 10:45 AM EDT Office Visit [facility] [address] [place] [address] Name, MD Aneesh [address] [place] [address] 11/30/2024 10:00 AM EDT Office Visit [facility] OPT[facility] [address] [place] [address] Nathanael, Jayne, OD [address] [place] [address] documented as of this encounter Visit Diagnoses Not on filedocumented in this encounter Care Teams Reinforcing Iron Worker Helper Relationship Specialty Start Date End Date Name, MD Aneesh [address] [place] [address] PCP - General Family Medicine 02/14/18 documented as of this encounter
--- OUTSIDE RECORDS SUMMARY | 2024-07-16 11:17 | XMS_ITS | Encounter Summary ---
Author Organization [employer] Address [address] [place] [address] Care Team Providers Care Band Tumbler Name Role Phone Name, Aneesh RIVERS Primary Care Provider [phone] Reason for Visit * Reason Comments Med Refill Encounter Details Date Type Department Care Team ([facility] st Contact Info) Description 06/24/2024 Refill [facility] [address] [place], [place] [phone] Name, MD Aneesh [address] [place] [address] Chronic low back pain, unspecified back pain [...] Description 07/17/2024 10:00 AM EST Medication Management [facility] [address] [place] [address] Sandra Rasheed, PharmD [address] [place] [address] 09/26/2024 10:45 AM EDT Office Visit [facility] [address] [place] [address] Name, MD Aneesh [address] [place] [address] 11/30/2024 10:00 AM EDT Office Visit [facility] [address] [place] [address] Nathanael, Jayne, OD [address] [place] [address] documented as of this encounter Visit Diagnoses [...] documented as of this encounter Care Teams Band Tumbler Relationship Specialty Start Date End Date Name, MD Aneesh [address] [place] [address] PCP - General Family Medicine 02/14/18 documented as of this encounter
--- OUTSIDE RECORDS SUMMARY | 2024-07-16 11:17 | XMS_ITS | Encounter Summary ---
Author Organization [employer] Address [address] [facility] 7t [place] [address] Care Team Providers Care Resource Manager Forester Name Role Phone Name, Aneesh RIVERS Primary Care Provider [phone] Reason for Visit * Reason Comments Med Refill Encounter Details Date Type Department Care Team ([facility] st Contact Info) Description 06/29/2024 Refill [facility] [address] [place], [place] [phone] Name, MD Aneesh [address] [place] [address] Chronic constipation Social History Tobacco Use Types [...] Description 07/17/2024 10:00 AM EST Medication Management [facility] [address] [place] [address] Sandra Rasheed, PharmD [address] [place] [address] 09/26/2024 10:45 AM EDT Office Visit [facility] [address] [place] [address] Aneesh Oliveira MD [address] [place] [address] 11/30/2024 10:00 AM EDT Office Visit [facility] [address] [place] [address] Nathanael, Jayne, OD [address] [place] [address] documented as of this encounter Visit Diagnoses Diagnosis Chronic constipation Unspecified constipation documented in this encounter Additional Health Concerns Assessment Noted Time PHQ-9 Depression Total Score: 4 08/23/19 24 9:44 AM EDT documented as of this encounter Care Teams Resource Manager Forester Relationship Specialty Start Date End Date Aneesh Oliveira MD [address] [place] [address] PCP - General Family Medicine 02/14/18 documented as of this encounter
--- OUTSIDE RECORDS SUMMARY | 2024-07-16 11:17 | XMS_ITS | Data Portability ---
Author Organization [place] - [facility], [facility] Address [address] [address] Care Team Providers Care Cup Trimming Machine Operator Name Role Phone NAME, LAURENT Primary Care Provider [phone] Assessment Encounter Date Assessment Date Assessment LastModified [...] vocal quality. I recommended he see a maintenance mgr, voice specalist, to evaluate him and see if he would be a good candidate for a more permanent medialization procedure. Patient is willing and interested to travel to [place] to hear options. - Referral to [facility] Otolaryngology - Dr. Stafford or Dr. Machuca for discussion [email or web address] Not available 05/04/2024 08:27:45 Plan of Treatment Reminders Order Date Submit Date Provider Last Modified By Organization Details Last Modified Time Details Appointments None recorded. Lab None recorded. Referral otolaryngol ogist referral - Attn: Betsy. Dr. Machuca or Dr. Stafford - bilateral vocal cord paralysis. 2023 024 [email or web address] 2 [facility] Otolaryngolog y, [address] [place], [address], 4 10:41:11 Procedures None recorded. Surgeries None recorded. Imaging None recorded. Medication Orders None recorded. Patient TargetsNo targets recorded. Patient InstructionsNo instructions recorded. Reason for Referral Laboratory Technical Specialist Referral fo r Dysphonia Attn: Birgit. Dr. Machuca or Dr. Stafford - bilateral vocal cord paralysis. 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 Procedures Surgical History Date Name Laterality Status Provider Name and Address Organization Details Recorded Time 05/03/20 24 Fiberoptic Laryngoscopy (Comprehensive) completed RYAN MAYA MD [address] [place] [address], [phone], [facility] 05/04/2024 08:24:07 Imaging Results None recorded. Procedure [...] Updated DateTime 05/03/2024 167.64 cm 34.7 kg/m2 34955.36 g Natalilinda Ramírez [place] - [facility] 05/03/2024 13:28:04 Social History None recorded. Functional Status None recorded. Mental Status None recorded. Family History Nothing Reported. Medical History No medical history recorded. Past Encounters Encounter ID Performer Location Encounter Start Date Encounter Closed Date Diagnosis/Indication Diagnosis SNOMED-CT Code Diagnosis ICD10 Code Diagnosis Note [id number] RYAN MAYA MD [facility] [address] [address] 05/03/2024 13:04:26 05/03/2024 16:54:58 Paralysis of larynx 70115287 J38.02 Dysphonia 27630538 R49.9 Health Concerns Section Related Observation LastModified by Organization Detai ls LastModified Time None Recorded Concern Status LastModified by Organization Details LastModified Time None Recorded Advance Directives Directive None Recorded Payers Encounter Date Sequence Insurance Name Policy Number Policy Hood Covered Member ID Hood Member ID Guarantor Name 05/03/2024 1 [facility] (MEDICARE REPLACEMENT/A DVANTAGE - HMO) Josue Mace [id number] Josue Mace 05/03/2024 2 [place] [facility] Josue Mace [id number] Josue Mace Notes Date Note Type Note Provider Name and Address Organization Details Recorded Time 05/03/2024 text/html 73yo gentleman rodrigo miguel presents today for evaluation of bilateral vocal cord paralysis and dysphonia. He has had difficulty with his voice for about 5 years. He underwent a traumatic intubation at [facility] in 2018 in the setting of an anaphylactic event. Following, this resulted in dysphonia and dyspnea with exertion. He was seen by otolaryngology in [place] - Dr. John Coppola. At that time, [...] aspirin 81 & clopidogrel. RYAN MAYA MD [address] [place] [address], [phone], [facility] - [facility] 05/04/2024 20:31:01
--- OUTSIDE RECORDS SUMMARY | 2024-07-16 11:17 | XMS_ITS | Encounter Summary ---
Author Organization [employer] Address [address] [facility] [address] [place] [address] Care Team Providers Care Cashier Manager Name Role Phone Name, Aneesh RIVERS Primary Care Provider [phone] Reason for Visit * Reason Comments Med Refill Encounter Details Date Type Department Care Team ([facility] st Contact Info) Description 01/12/[address] [facility] [address] [place], [place] [phone] Name, MD Aneesh [address] [place] [address] Chronic low back pain, unspecified back pain [...] Description 07/17/2024 10:00 AM EST Medication Management [facility] [address] [place] [address] Sandra Rasheed, PharmD [address] [place] [address] 09/26/2024 10:45 AM EDT Office Visit [facility] [address] [place] [address] NameAneesh MD 230 [place] [address] 11/30/2024 10:00 AM EDT Office Visit [facility] [address] [place] [address] Nathanael, Jayne, OD [address] [place] [address] documented as of this encounter Visit Diagnoses Diagnosis Chronic low back pain, unspecified back pain laterality, unspecified whether sciatica present documented in this encounter Additional Health Concerns Assessment Noted Time PHQ-9 Depression Total Score: 4 08/23/19 24 9:44 AM EDT documented as of this encounter Care Teams Cashier Manager Relationship Specialty Start Date End Date Aneesh Oliveira MD [address] [place] [address] PCP - General Family Medicine 02/14/18 documented as of this encounter
--- OUTSIDE RECORDS SUMMARY | 2024-07-16 11:17 | XMS_ITS | Clinical Summary ---
Author Organization [employer] Address [address] [place] [address] 7t [place] [address] Care Team Providers Care Disability Program Navigator Name Role Phone Name, Aneesh RIVERS Primary Care Provider [phone] Allergies Active Allergy Reactions Criticality Noted Date [...] evening meal. 60 tablet Active sodium chloride ([place]) 0.65 % nasal sprayIndications :Postnasal drip Administer 1 spray into each nostril if needed for congestion. 15 mL 2 024 2024 Active Aspirin Adult Low Strength 81 MG EC tablet TAKE 1 TABLET BY MOUTH EVERYDAY AT NOON 90 tablet 3 Active mometasone (Elocon) 0.1 % ointment Apply topically Once per day. 45 g 024 2024 Active triamcinolone (Kenalog) 0.1 % cream APPLY [...] complication, without long-term current use of insulin ([facility]) TEST BLOOD SUGAR THREE TIMES DAILY 100 [...] USE DIRECTED FOUR TIMES DAILY 100 each 11 Active acetaminophen (Tylenol) 500 MG tablet Take [...] by mouth 2 times daily. 60 tablet Active pravastatin (Pravachol) 40 MG tablet Take 1 tablet (40 mg) by mouth Once per day. 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 (CMS/HCC) INJECT 40 UNITS SUBCUTANEOUSLY BEFORE BREAKFAST, 35 UNITS BEFORE LUNCH, AND 35 UNITS BEFORE SUPPER 30 mL 3 025 Active tamsulosin (Flomax) 0.4 [...] eorder (will not trigger notification to Pharmacy)) HumaLOG KWIKPEN 100 UNIT/ML injectionIndicat ions:Type 2 diabetes mellitus with hyperglycemia (CMS/HCC),USP (current) use of insulin (CMS/[facility]) INJECT 40 UNITS SUBCUTANEOUSLY BEFORE BREAKFAST, 35 UNITS BEFORE LUNCH, AND 35 UNITS BEFORE SUPPER 30 mL 3 024 2024 Discontinued Mary Ann Rodriguez SoloStar 300 UNIT/ML injectionIndicat ions:Type 2 diabetes mellitus with other specified complication, without long-term current use of insulin (CMS/[facility]) INJECT 80 UNITS SUBCUTANEOUSLY AT BEDTIME 6 [...] Type Department Care Team Description 07/10/2024 Refill [facility] [address] [place] [address] Name, MD Aneesh Type 2 diabetes mellitus with hyperglycemia ([facility]); 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 ([facility]) 07/06/2024 Refill [facility] [address] [place] [address] Aneesh Oliveira MD Type 2 diabetes mellitus with other specified complication, without long-term current use of insulin ([facility]) 06/29/2024 Refill [facility] [address] [place] [address] Aneesh Oliveira MD Chronic constipation 06/25/2024 Refill [facility] [address] [place] [address] Aneesh Oliveira MD Hypertension, unspecified type; Prostatism; Type 2 diabetes mellitus with hyperglycemia (CMS/HCC); USP (current) use of insulin (CMS/[facility]) 06/24/2024 Refill [facility] [address] [place] [address] Aneesh Oliveira MD Chronic low back pain, unspecified back pain laterality, unspecified whether sciatica present; Hypertension, unspecified type; Prostatism 06/01/2024 3:30 PM EST Office Visit [facility] [address] [place] [address] Nathanael, Jayne, OD Both eyes affected by mild nonproliferative diabetic retinopathy with macular edema, associated with type 2 diabetes mellitus ([facility]) (Primary Dx); Epiretinal membrane, both eyes; Left retinal defect; Choroidal nevus of right eye; Raised intraocular pressure of both eyes; Pseudophakia of both eyes; Presbyopia of both eyes 06/01/2024 Travel 05/28/2024 Refill [facility] [address] [place] [address] Aneesh Oliveira MD Chronic low back pain, unspecified back pain laterality, unspecified whether sciatica present 05/24/2024 Orders Only GENERIC EXTERNAL DATA DEPARTMENT Provider, Generic External Data 05/18/2024 10:30 AM EST Office Visit [facility] [address] [place] [address] Aneehs Oliveira MD Type 2 diabetes mellitus with other specified complication, without long-term current use of insulin ([facility]) (Primary Dx); Encounter for immunization; Chronic midline low back pain without sciatica; Stage 3a chronic kidney disease (CMS/HCC); Hypertension, unspecified type; On statin therapy 05/17/2024 Telephone [facility] [address] [place] [address] Marilou Jarrett MA Chart Prep 05/04/2024 Patient Outreach [facility] [address] [place] [address] NameAneesh MD Pre-visit Planning ([facility] screening was completed on 08/23/2023) 05/03/2024 Refill [facility] [address] [place] [address] Aneesh Oliveira MD 05/02/2024 Refill [facility] [address] [place] [address] Aneesh Oliveira MD Chronic constipation 05/01/2024 Refill [facility] [address] [place], [place] [phone] Aneesh Oliveira MD Chronic low back pain, unspecified back pain laterality, unspecified whether sciatica present 04/26/2024 Refill [facility] [address] [place], [place] [phone] Aneesh Oliveira MD Chronic low back pain, [...] Description 07/17/2024 10:00 AM EST Medication Management [facility] [address] [place] [address] Sandra Rasheed, PharmD [address] [place] [address] 09/26/2024 10:45 AM EDT Office Visit [facility] [address] [place] [address] Name, MD Aneesh [address] [place] [address] 11/30/2024 10:00 AM EDT Office Visit [facility] [address] [place] [address] NathanaelJayne agudelo, OD [address] [place] [address] Health Maintenance Due Date Last Done Comments [...] Hepatitis C Screening Completed 11/25/2020 Pneumococcal Vaccine: 50+ Years Completed 02/01/2023, 02/17/2014, 03/15/2008, Additional history [...] Procedure Name Priority Date/Time Associated Diagnosis Comments [facility] LOWER EXTREMITY ARTERIAL DUPLEX BILATERAL WITH BAYLEE [...] Recently Relevant to Health Maintenance Results * [facility] Lower Extremity Arterial Duplex Bilateral With Baylee (06/20/2024 1:51 PM EST) 06/20/2024 1:51 PM EST Narrative [facility] - 06/20/2024 1:53 PM EST ? [facility] ?[address] ?[place] [address] ? Ultrasound Report ? Signed ? Patient: Gautam,Josue ?MR#: [id number] ?? [id number] ? : 1950 ?Acct:[id number] ? Age/Sex: 73 / M ?ADM Date: 06/18/24 ? Loc: HO.US ? Attending Dr: Rodney Smith MD ? Ordering Physician: Rodney Smith MD ?? Date of Service: 06/18/24 ?? Procedure(s): US arterial duplex BI w/ BAYLEE ?? Accession Number(s): [id number] ? cc: Rodney Smith MD; Name,Aneesh RIVERS [...] DD/ 1351 ? TD/TT: 06/20/24 1351 ? Cheese Grader: ? Procedure Note Donotuseinterpreter, Image - 06/20/[address] [address] Ultrasound Report Signed Patient: Sylvia Gautam#: [id number] : 1Acct:[id number] Age/Sex: 73 / MADM Date: 06/18/24 Loc: HO.US Attending Dr: Rodney Smith MD Ordering Physician: Rodney Smith MD Date of Service: 06/18/24 Procedure(s): US arterial duplex BI w/ BAYLEE Accession Number(s): [id number] cc: Rodney Smith MD; Name,Aneesh RIVERS CLINICAL [...] 06/20/24 1353 DD/ 1351 TD/TT: 06/20/24 1351 Cheese Grader: [facility] External Provider CV VASC ULAR PROCEDURES Edited Result - Final [facility] [address] [place] [phone] * OCT, Retina - OU - Both Eyes (06/01/2024 3:30 PM EST) Narrative Jayne Huffman, OD - 06/21/2024 2:31 PM [...] refer to retina specialist for further evaluation. us Jayne Huffman OD OPHTH TOMOGRAPHY Final Result * (ABNORMAL) Lipid Panel, Standard (05/24/2024 8:27 AM EST) Triglycerides 185(H) <150 mg/dL [facility] Comment:Desirable Triglyceri de: less than 150 mg/dLBorderline High Triglyceride 150-199 mg/dLHigh Triglyceride: 200-499 mg/dLVery High Triglyceride: greater than or equal to 5OO mg/dL Cholesterol 162 <200 mg/dL [facility] Comment:Desirable Cholestero l: less than 200 mg/dLBorderline High Cholesterol: 200-239 mg/dLHigh Cholesterol: greater than 239 mg/dL LDL Cholesterol Calculated 88 <100 mg/dL [facility] Comment:Desirable LDL: less than 100 mg/dLNear Optimal/Above Optimal LDL: 110- 129 mg/dLBorderline High LDL: 130-159 mg/dLHigh LDL: 160-189 mg/dLVery High LDL: greater than or equal to 190 mg/dL HDL Cholesterol 37(L) >40 mg/dL [facility] Comment:Desirable HDL: great er than 40 mg/dL Note: This HDL assay may give artificially low results in patients with liver disease. Blood Venous blood specimen / Unknown 05/24/2024 8:27 AM EST 05/24/2024 8:27 AM EST us Aneesh Oliveira MD LAB BLOOD ORDERABLES Final Resul t [facility] [address] [place] [phone] * (ABNORMAL) Basic Metabolic Panel (05/24/2024 8:27 AM EST) Sodium 140 135 - 145 mmol/L [facility] Potassium 3.9 3.3 - 5.1 mmol/L [facility] Chloride 102 96 - 108 mmol/L [facility] Carbon Dioxide 26 22 - 29 mmol/L [facility] Anion Gap 16 12 - 20 [facility] Urea Nitrogen (BUN) 27(H) 9 - 16 mg/dL [facility] Creatinine, Serum 1.37 0.5 - 1.4 mg/dL [facility] Estimated Glomerular Filt Rate 51 [facility] Comment:Chronic Kidney Disea se: Estimated GFR < 60 mL/min/[id number] Kidney Disease: Estimated GFR < 15 mL/min/1.73m2 Glucose 349(H) 60 - 115 mg/dL [facility] Calcium 9.7 8.4 - 10.2 mg/dL [facility] 05/24/2024 8:27 AM EST 05/24/2024 8:27 AM EST us Generic External Data Provider LAB BLOOD ORDERAB LES Final Result [facility] [address] [place] [phone] * (ABNORMAL) Urinalysis Complete (05/24/2024 8:23 AM EST) Color Urine Yellow [facility] Appearance Urine Clear [facility] PH 6.5 5.0 - 9.0 [facility] Glucose Urine UA >=1000(A) Negative mg/dL [facility] Urine Blood Negative Negative [facility] Specific Kirby - Urine 1.025 1.005 - 1.025 [facility] Urine Protein 100 (2+)(A) Neg-Trace mg/dL [facility] Urine Ketones Negative Negative mg/dL [facility] Nitrite Urine Negative Negative [facility] Leukocyte Esterase Urine Negative Negative [facility] RBC Urine 0-2 0 - 2 /HPF [facility] Urine WBC 0-5 0 - 5 /HPF [facility] Urine Squamous Epithelial Cell 0-2 0 - 2 /HPF [facility] Urine Bacteria None Seen None Seen [facility] Hyaline Casts, Urine 0-2 0 - 2 /LPF [facility] 05/24/2024 8:23 AM EST 05/24/2024 9:00 AM EST Generic External Data Provider LAB URINE ORDERAB LES Final Result [facility] [address] [place] [phone] * (ABNORMAL) POCT HGB A1C (05/18/2024 10:47 AM EST) Hemoglobin A1C 8.9(A) 4.0 - 6.0 % Blood 05/18/2024 10:4 7 AM EST Aneesh Oliveira MD POINT OF CARE TEST ENTER/EDIT OR DERABLES Final Result * POCT glucose (05/18/2024 10:47 AM EST) Pathologist [facility] Glucose Blood, POC 118 60 - 200 mg/dL Blood Capillary blood specimen / Unknown 05/18/2024 10:47 AM EST Aneesh Oliveira MD POINT OF CARE TEST ENTER/EDIT OR DERABLES Final Result * (ABNORMAL) Hm Colonoscopy (02/10/2023) Pathologist [facility] Colonoscopy Abnormal(A ) Normal Aneesh Oliveira MD HEALTH MAINTENANCE Final Result * HEPATITIS C AB W/REFL TO HCV RNA, QN, PCR (11/25/2020 10:49 AM EDT) Pathologist [facility] HEPATITIS C ANTIBODY NON-REACT TOM NON-REACT TOM [facility] INDEX 0.00 <1.00 [facility] Comment: ?? HCV antibody was non-reactive. There is no laboratory ?? evidence of HCV infection. ?? In most cases, no further action is required. However, if recent HCV exposure is suspected, a test for HCV RNA (test code 91274) is suggested. ?? For additional information please refer to http://education.Paltalk/faq/EXO61u5 (This link is being provided for informational/ educational purposes only.) ?? 11/25/2020 10:4 9 AM EDT us Aneesh Oliveira MD HISTORICAL/NON ORDERABLE LABS Fi nal Result [facility] [address] from Last 3 Months or Most Recently Relevant to Health Maintenance Insurance [facility] STANDARD [facility] DUAL COMPLETE DENTAL - [facility] Care Teams Disability Program Navigator Relationship Specialty Start Date End Date Name, MD Aneesh [address] [place], [place] [phone] PCP - General Family Medicine 02/14/18
--- OUTSIDE RECORDS SUMMARY | 2024-07-16 11:17 | XMS_ITS | Clinical Summary ---
Author Organization [facility] Address [address] [place] [phone] Phone Care Team Providers Care Vocational Ed Instructor Name Role Phone Name, Aneesh RIVERS Primary Care Provider [phone] Allergies Active Allergy Reactions Criticality Noted Date [...] Vaccine (#1) 2024 8, 05/17/2016, 05/11/2012 Insurance [facility] DUAL My [employer] [place] [facility] [employer] Care Teams Vocational Ed Instructor Relationship Specialty Start Date End Date Name, MD Aneesh [address] [place] [address] PCP - General 06/23/20
--- OUTSIDE RECORDS SUMMARY | 2024-07-16 11:17 | XMS_ITS | Encounter Summary ---
Author Organization [employer] Address [address] [facility] 7t [place] [address] Care Team Providers Care Physicist Cryogenics Name Role Phone Name, Aneesh RIVERS Primary Care Provider [phone] Reason for Visit * Reason Comments Med Refill Encounter Details Date Type Department Care Team ([facility] st Contact Info) Description 07/10/2024 Refill [facility] [address] [place], [place] [phone] Name, MD Aneesh [address] [place] [address] Type 2 diabetes mellitus with hyperglycemia (CMS/HCC); 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) Social History [...] Description 07/17/2024 10:00 AM EST Medication Management [facility] [address] [place] [address] Sadnra Rasheed, PharmD [address] [place] [address] 09/26/2024 10:45 AM EDT Office Visit [facility] [address] [place] [address] Name, MD Aneesh [address] [place] [address] 11/30/2024 10:00 AM EDT Office Visit [facility] [address] [place] [address] Nathanael, Jayne, OD [address] [place] [address] documented as of this encounter Visit Diagnoses Diagnosis Type 2 diabetes mellitus with hyperglycemia (CMS/HCC) [facility] (current) use of insulin (CMS/HCC) documented in this encounter Additional Health Concerns Assessment Noted Time PHQ-9 Depression Total Score: 4 08/23/19 24 9:44 AM EDT documented as of this encounter Care Teams Physicist Cryogenics Relationship Specialty Start Date End Date Name, MD Aneesh [address] [place] [address] PCP - General Family Medicine 02/14/18 documented as of this encounter
--- OUTSIDE RECORDS SUMMARY | 2024-07-16 11:17 | XMS_ITS | Encounter Summary ---
Author Organization [employer] Address [address] [facility] 7t [place] [address] Care Team Providers Care Station Engineer Name Role Phone Name, Aneesh RIVERS Primary Care Provider [phone] Reason for Visit * Reason Onset Date Comments Medication Question 08/04/2023 Encounter Details Date Type Department Care Team ([facility] st Contact Info) Description 08/04/2023 Telephone [facility] [address] [place], [place] [phone] Name, MD Aneesh [address] [place] [address] Medication Question Social History Tobacco Use Types [...] - 08/04/2023 4:43 PM EST T/C to [facility] pharmacy for below message, as per pharmacy rx is all set. T/C to [facility] to inform that Rx. Is all set. [facility] verbally agreed and understood. * Telephone Encounter - Paco Smith - 08/04/2023 3:12 PM EST Tc from [facility] requesting a call back in regards to pt insulin, states insurance is not covering. Please contact at [phone] documented in this encounter Plan of Treatment Upcoming Encounters Date Type Department Care Team (Late st Contact Info) Description 07/17/2024 10:00 AM EST Medication Management [facility] [address] [place] [phone] Sandra Rasheed, PharmD [address] [place] [address] 09/26/2024 10:45 AM EDT Office Visit [facility] [address] [place] [phone] Name, MD Aneesh [address] [place] [address] 11/30/2024 10:00 AM EDT Office Visit [facility] [address] [place], [place] [phone] Jayne Huffman, OD [address] [place], [place] [phone] documented as of this encounter Visit Diagnoses Not on filedocumented in this encounter Care Teams Station Engineer Relationship Specialty Start Date End Date Name, MD Aneesh [address] [place] [address] PCP - General Family Medicine 02/14/18 documented as of this encounter
--- OUTSIDE RECORDS SUMMARY | 2024-07-16 11:17 | XMS_ITS | Encounter Summary ---
Author Organization [employer] Address [address] [facility] 7t [place] [address] Care Team Providers Care Recording Studio Internship Name Role Phone Name, Aneesh RIVERS Primary Care Provider [phone] Reason for Visit * Reason Comments Med Refill Encounter Details Date Type Department Care Team ([facility] st Contact Info) Description 08/19/2023 Refill [facility] [address] [place], [place] [phone] Name, MD Aneesh [address] [place] [address] Social History Tobacco Use Types Packs/Day Years [...] Description 07/17/2024 10:00 AM EST Medication Management [facility] [address] [place] [address] Sandra Rasheed, PharmD [address] [place] [address] 09/26/2024 10:45 AM EDT Office Visit [facility] [address] [place] [address] Name, MD Aneesh [address] [place] [address] 11/30/2024 10:00 AM EDT Office Visit [facility] [address] [place] [address] Nathanael, Jayne, OD [address] [place] [address] documented as of this encounter Visit Diagnoses Not on filedocumented in this encounter Care Teams Recording Studio Internship Relationship Specialty Start Date End Date Name, MD Aneesh [address] [place] [phone] PCP - General Family Medicine 02/14/18 documented as of this encounter
--- OUTSIDE RECORDS SUMMARY | 2024-07-16 11:17 | XMS_ITS | Encounter Summary ---
Author Organization [employer] Address [address] [facility] 7t [place] [address] Care Team Providers Care Substation Engineer Name Role Phone Name, Aneesh RIVERS Primary Care Provider Reason for Visit * Reason Comments Med Refill Encounter Details Date Type Department Care Team ([facility] st Contact Info) Description 06/25/2024 Refill [facility] [address] [place], [place] [phone] Name, MD Aneesh [address] [place] [address] Hypertension, unspecified type; Prostatism; Type 2 diabetes mellitus with hyperglycemia (CMS/HCC); senior care (current) use of insulin ([facility]) Social History Tobacco Use Types Packs/Day Years [...] Description 07/17/2024 10:00 AM EST Medication Management [facility] [address] [place] [phone] Sandra Rasheed, PharmD [address] [place] [address] 09/26/2024 10:45 AM EDT Office Visit [facility] [address] [place] [address] Name, MD Aneesh [address] [place] [address] 11/30/2024 10:00 AM EDT Office Visit [facility] [address] [place] [address] Jayne Huffman, OD [address] [place] [address] documented as of this encounter Visit Diagnoses Diagnosis Hypertension, unspecified type Prostatism Unspecified hyperplasia of prostate without urinary obstruction and other lower urinary tract symptoms (LUTS) Type 2 diabetes mellitus with hyperglycemia (CMS/HCC) senior care (current) use of insulin (CMS/HCC) documented in this encounter Additional Health Concerns Assessment Noted Time PHQ-9 Depression Total Score: 4 08/23/19 24 9:44 AM EDT documented as of this encounter Care Teams Substation Engineer Relationship Specialty Start Date End Date Name, MD Aneesh [address] [place] [address] PCP - General Family Medicine 02/14/18 documented as of this encounter
--- OUTSIDE RECORDS SUMMARY | 2024-07-16 11:17 | XMS_ITS | Encounter Summary ---
Author Organization [employer] Address [address] [facility] 7t [place] [address] Care Team Providers Care Automation Qa Analyst Name Role Phone Name, Aneesh RIVERS Primary Care Provider [phone] Reason for Visit * Reason Comments Med Refill Encounter Details Date Type Department Care Team ([facility] st Contact Info) Description 05/02/2024 Refill [facility] [address] [place], [place] [phone] Name, MD Aneesh [address] [place] [address] Chronic constipation Social History Tobacco Use Types [...] Description 07/17/2024 10:00 AM EST Medication Management [facility] [address] [place] [address] Sandra Rasheed, PharmD [address] [place] [address] 09/26/2024 10:45 AM EDT Office Visit [facility] [address] [place] [address] Aneesh Oliveira MD [address] [place] [address] 11/30/2024 10:00 AM EDT Office Visit [facility] [address] [place] [address] Nathanael, Jayne, OD [address] [place] [address] documented as of this encounter Visit Diagnoses Diagnosis Chronic constipation Unspecified constipation documented in this encounter Additional Health Concerns Assessment Noted Time PHQ-9 Depression Total Score: 4 08/23/19 24 9:44 AM EDT documented as of this encounter Care Teams Automation Qa Analyst Relationship Specialty Start Date End Date Aneesh Oliveira MD [address] [place] [phone] PCP - General Family Medicine 02/14/18 documented as of this encounter
--- OUTSIDE RECORDS SUMMARY | 2024-07-16 11:17 | XMS_ITS | Encounter Summary ---
Author Organization [employer] Address [address] [facility] 7t [place] [address] Care Team Providers Care Hairspring Ii Inspector Name Role Phone Name, Aneesh RIVERS Primary Care Provider [phone] Reason for Visit * Reason Onset Date Comments FYI 08/23/2023 Encounter Details Date Type Department Care Team (Late st Contact Info) Description 08/23/2023 Telephone [facility] [address] [place], [place] [phone] Name, MD Aneesh [address] [place] [address] FYI Social History Tobacco Use Types Packs/Day [...] 3:03 PM EDT Tc from Leidy with [facility] stating pt no longer wants to continue care with them. Leidy stated pt no showed 3 appts in a row and when asked about it pt said it was due to to transportation. Pt claims they are irresponsible and that they don't communicate. Pt stated he will continue care with PCP. If any questions please contact Leidy at [phone]. documented in this encounter Plan of Treatment Upcoming Encounters Date Type Department Care Team ([facility] st Contact Info) Description 07/17/2024 10:00 AM EST Medication Management [facility] [address] [place] [phone] Sandra Rasheed, PharmD [address] [place] [address] 09/26/2024 10:45 AM EDT Office Visit [facility] [address] [place] [address] Name, MD Aneesh [address] [place] [address] 11/30/2024 10:00 AM EDT Office Visit [facility] OPTOMETRY [address] [place] [address] Jayne Huffman, BRYANT 230 [place] [address] documented as of this encounter Visit Diagnoses Not on filedocumented in this encounter Additional Health Concerns Assessment Noted Time PHQ-9 Depression Total Score: 4 08/23/19 24 9:44 AM EDT documented as of this encounter Care Teams Hairspring Ii Inspector Relationship Specialty Start Date End Date Name, MD Aneesh 230 [place] [address] PCP - General Family Medicine 02/14/18 documented as of this encounter
--- OUTSIDE RECORDS SUMMARY | 2024-07-16 11:17 | XMS_ITS | Encounter Summary ---
Author Organization [employer] Address [address] [facility] [address] 7[address] [place] [address] Care Team Providers Care Java Application Engineer Name Role Phone Name, Aneseh RIVERS Primary Care Provider [phone] Encounter Details Date Type Department Care Team ([facility] st Contact Info) Description 03/23/2023 Orders Only [facility]S [address] [place] [address] Amber Brantley LPN Social History Tobacco Use [...] Description 07/17/2024 10:00 AM EST Medication Management [facility] MED[facility]INE [address] [place] [address] Sandra Rasheed, PharmD 230 [place] [address] 09/26/2024 10:45 AM EDT Office Visit [facility] MED[facility]INE [address] [place] [phone] NameAneesh MD [address] [place] [address] 11/30/2024 10:00 AM EDT Office Visit [facility] OPTOMETRY [address] [place] [address] Nathanael, Jayne, OD 230 [place] [address] documented as of this encounter Visit Diagnoses Not on filedocumented in this encounter Care Teams Java Application Engineer Relationship Specialty Start Date End Date Aneesh Oliveira MD [address] [place] [phone] PCP - General Family Medicine 02/14/18 documented as of this encounter
--- OUTSIDE RECORDS SUMMARY | 2024-07-16 11:17 | XMS_ITS | Encounter Summary ---
Author Organization [employer] Address [address] [facility] 7t [place] [address] Care Team Providers Care Account Solutions Analyst Name Role Phone Name, Aneesh RIVERS Primary Care Provider [phone] Reason for Visit * Reason Comments Med Refill Encounter Details Date Type Department Care Team ([facility] st Contact Info) Description 07/06/2024 Refill [facility] [address] [place], [place] [phone] Name, MD Aneesh 230 [place] [address] Type 2 diabetes mellitus with other specified complication, without long-term current use of insulin ([facility]) Social History Tobacco Use Types [...] Description 07/17/2024 10:00 AM EST Medication Management [facility] [address] [place] [address] Sandra Rasheed, PharmD 230 [place] [address] 09/26/2024 10:45 AM EDT Office Visit [facility] MEDICINE [address] [place] [address] Aneesh Oliveira MD 230 [place] [address] 11/30/2024 10:00 AM EDT Office Visit [facility] OPTOMETRY [address] [place] [address] Nathanael, Jayne, OD 230 [place] [address] documented as of this encounter Visit Diagnoses Diagnosis Type 2 diabetes mellitus with other specified complication, without long-term current use of insulin ([facility]) documented in this encounter Additional Health Concerns Assessment Noted Time PHQ-9 Depression Total Score: 4 08/23/19 24 9:44 AM EDT documented as of this encounter Care Teams Account Solutions Analyst Relationship Specialty Start Date End Date Aneesh Oliveira MD 230 [place] [address] PCP - General Family Medicine 02/14/18 documented as of this encounter
== END 2024-07-16 10:48 | disposition home or self-care (01) ==
PROVIDERS: PCP Internal Medicine Geriatric Medicine; Visit Provider Internal Medicine Hypertension Specialist
DX: I12.9 Hypertensive chronic kidney disease with stage 1 through stage 4 chronic kidney disease, or unspecified chronic kidney disease (principal); E11.22 Type 2 diabetes mellitus with diabetic chronic kidney disease; N18.9 Chronic kidney disease, unspecified; Z79.4 Long term (current) use of insulin; E83.52 Hypercalcemia
CPT/HCPCS: 99214

== ENCOUNTER → 2024-07-16 10:27 | Outpatient (BNVA) | payer OTHER, SELFPAY | PROVIDERS: PCP Internal Medicine Geriatric Medicine; Visit Provider Internal Medicine Hypertension Specialist | DX: E11.22 Type 2 diabetes mellitus with diabetic chronic kidney disease (principal); I12.9 Hypertensive chronic kidney disease with stage 1 through stage 4 chronic kidney disease, or unspecified chronic kidney disease; N18.9 Chronic kidney disease, unspecified; E11.65 Type 2 diabetes mellitus with hyperglycemia; E83.52 Hypercalcemia; Z79.4 Long term (current) use of insulin | CPT/HCPCS: 99212 ==

== ENCOUNTER 2024-08-20 09:30 | Outpatient (REF) | payer OTHER, SELFPAY ==
--- OUTSIDE RECORDS SUMMARY | 2024-08-20 10:18 | XMS_ITS | Clinical Summary ---
Author Organization [facility] Address [address] [place] [phone] Phone Care Team Providers Care Trimming Machine Set Up Operator Name Role Phone Name, Aneesh RIVERS Primary Care Provider [phone] Allergies Active Allergy Reactions Criticality Noted Date [...] Vaccine (#1) 2024 8, 05/17/2016, 05/11/2012 Insurance [facility] D[facility] [place] [facility] [employer] Care Teams Trimming Machine Set Up Operator Relationship Specialty Start Date End Date Name, MD Aneesh [address] [place] [phone] PCP - General 06/23/20
--- OUTSIDE RECORDS SUMMARY | 2024-08-20 10:18 | XMS_ITS | Encounter Summary ---
Author Organization [employer] Address [address] [facility] [facility] [facility] [address] 7t [place] [address] Care Team Providers Care Electric Meter Installer Name Role Phone Name, Aneesh RIVERS Primary Care Provider [phone] Reason for Visit * Reason Comments Med Refill Encounter Details Date Type Department Care Team ([facility] st Contact Info) Description 01/12/2024 Refill [facility] MED & PEDS [address] [place], [place] [phone] Name, MD Aneesh 230 [place] [address] Chronic low back pain, unspecified back pain [...] Care Team (Late st Contact Info) Description 08/24/2024 9:00 AM EDT Medication Management [facility] 230 [place] [address] Sandra Rasheed, PharmD 230 [place] [address] 09/26/2024 10:45 AM EDT Office Visit [facility] MED[facility]INE [address] [place] [address] Aneesh Oliveira MD 230 [place] [address] 11/30/2024 10:00 AM EDT Office Visit [facility] OPTOMETRY [address] [place] [address] Nathanael, Jayne, OD 230 [place] [address] documented as of this encounter Visit Diagnoses Diagnosis Chronic low back pain, unspecified back pain laterality, unspecified whether sciatica present documented in this encounter Additional Health Concerns Assessment Noted Time PHQ-9 Depression Total Score: 4 08/23/19 24 9:44 AM EDT documented as of this encounter Care Teams Electric Meter Installer Relationship Specialty Start Date End Date Aneesh Oliveira MD [address] [place] [address] PCP - General Family Medicine 02/14/18 documented as of this encounter
--- OUTSIDE RECORDS SUMMARY | 2024-08-20 10:19 | XMS_ITS | Encounter Summary ---
Author Organization [employer] Address [address] [facility] 7t [place] [address] Care Team Providers Care Credit Balance Specialist Name Role Phone Name, Aneesh RIVERS Primary Care Provider [phone] Reason for Visit * Reason Onset Date Comments Appointment Request 07/17/2024 Encounter Details Date Type Department Care Team (Late st Contact Info) Description 07/17/2024 Telephone [facility] MEDICINE 230 [place], [place] [phone] Name, MD Aneesh 230 [place] [address] Appointment Request Social History Tobacco Use Types Packs/Day Years [...] encounter Miscellaneous Notes * Telephone Encounter - Keegan Vale - 07/17/2024 10:27 AM EST TC from pt daughter requesting to r/s apt for 07/17/24. Contact pt at [phone] documented in this encounter Plan of Treatment Upcoming Encounters Date Type Department Care Team (Late st Contact Info) Description 08/24/2024 9:00 AM EDT Medication Management [facility] MEDICINE [address] [place] [address] Sandra Rasheed, PharmD 230 [place] [address] 09/26/2024 10:45 AM EDT Office Visit [facility] MEDICINE 230 [place] [address] Name, MD Aneesh 230 [place] [address] 11/30/2024 10:00 AM EDT Office Visit [facility] OPTOMETRY [address] [place] [address] Jayne Huffman, OD 230 [place] [address] documented as of this encounter Visit Diagnoses Not on filedocumented in this encounter Additional Health Concerns Assessment Noted Time PHQ-9 Depression Total Score: 4 08/23/19 24 9:44 AM EDT documented as of this encounter Care Teams Credit Balance Specialist Relationship Specialty Start Date End Date Name, MD Aneesh 230 [place] [address] PCP - General Family Medicine 02/14/18 documented as of this encounter
--- OUTSIDE RECORDS SUMMARY | 2024-08-20 10:19 | XMS_ITS | Clinical Summary ---
Author Organization [employer] Address [address] [place] [address] 7t [place] [address] Care Team Providers Care Oracle Financials Developer Name Role Phone Name, Aneesh RIVERS Primary Care Provider [phone] Allergies Active Allergy Reactions Criticality Noted Date [...] evening meal. 60 tablet Active sodium chloride (Sherman) 0.65 % nasal sprayIndications :Postnasal drip Administer [...] complication, without long-term current use of insulin ([facility]) TEST BLOOD SUGAR THREE TIMES DAILY 100 [...] SUGAR THREE TIMES DAILY 100 strip 11 Active spironolactone (Aldactone) 25 MG tabletIndication s:Hypertension, unspecified type TAKE 1 TABLET BY MOUTH EVERY MORNING 90 tablet Active tamsulosin (Flomax) 0.4 MG 24 hr capsuleIndicatio ns:Prostatism TAKE 2 CAPSULES BY MOUTH EVERY DAY AT BEDTIME (1/2 HOUR AFTER SUPPER) 180 capsule Active verapamil SR (Calan SR) 120 MG ER tabletIndication s:Chronic constipation TAKE 1 TABLET BY MOUTH EVERY MORNING WITH FOOD 90 tablet Active Toujeo Max SoloStar 300 UNIT/ML injectionIndicat ions:Type 2 diabetes mellitus with other specified complication, without long-term current use of insulin ([facility]) INJECT 80 UNITS SUBCUTANEOUSLY AT BEDTIME 6 mL 3 025 Active HumaLOG KWIKPEN 100 UNIT/ML injectionIndicat ions:Type 2 diabetes mellitus with hyperglycemia (CMS/[facility]),longterm (current) use of insulin ([facility]) INJECT 40 UNITS SUBCUTANEOUSLY BEFORE BREAKFAST, 35 UNITS BEFORE LUNCH, AND 35 UNITS BEFORE SUPPER 30 mL 3 025 Active senna (Senokot) 8.6 MG tablet Take 2 tablets by mouth Once per day. Active Reguloid 400 MG capsule Take 2 capsules by mouth 2 times daily. Active gabapentin (Neurontin) 100 MG capsuleIndicatio ns:Chronic low back pain, unspecified back pain laterality, unspecified whether sciatica present TAKE 2 CAPSULES BY MOUTH EVERY DAY AT BEDTIME 60 capsule Active gabapentin (Neurontin) 100 MG capsuleIndicatio ns:Chronic low back pain, unspecified back pain laterality, unspecified whether sciatica present TAKE 2 CAPSULES BY MOUTH AT BEDTIME 60 capsule 025 2024 Discontinued Active Problems Problem Noted Date [...] 03/22/2023 History of colon polyps 03/22/2023 03/22/20 Lower extremity pain, bilateral 03/22/2023 03/22/2023 Multinodular [...] Encounters Date Type Department Care Team Description 08/13/2024 Refill [facility] MED & PEDS [address] [place], [place] [phone] [facility] Chronic low back pain, unspecified back pain laterality, unspecified whether sciatica present 07/17/2024 Telephone [facility] MEDICINE 230 [place], [place] [phone] NameAneesh MD Appointment Request 07/10/2024 Refill [facility] MED & PEDS [address] [place], [place] [phone] NameAneesh MD Type 2 diabetes mellitus with hyperglycemia (CMS/[facility]); 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 (CMS/[facility]) 07/06/2024 Refill [facility] [address] [place] [address] Aneesh Oliveira MD Type 2 diabetes mellitus with other specified complication, without long-term current use of insulin (CMS/HCC) 06/29/2024 Refill [facility] [address] [place], [place] [phone] Aneesh Oliveira MD Chronic constipation 06/25/2024 Refill [facility] [address] [place] [address] Aneesh Oliveira MD Hypertension, unspecified type; Prostatism; Type 2 diabetes mellitus with hyperglycemia (CMS/HCC); longterm (current) use of insulin (CMS/HCC) 06/24/2024 Refill [facility] PEDS [address] [place] [address] Aneesh Oliveira MD Chronic low back pain, unspecified back pain laterality, unspecified whether sciatica present; Hypertension, unspecified type; Prostatism 06/01/2024 3:30 PM EST Office Visit [facility] OPTOMETRY [address] [place] [address] Jayne Huffman, OD Both eyes affected by mild nonproliferative diabetic retinopathy with macular edema, associated with type 2 diabetes mellitus ([facility]) (Primary Dx); Epiretinal membrane, both eyes; Left retinal defect; Choroidal nevus of right eye; Raised intraocular pressure of both eyes; Pseudophakia of both eyes; Presbyopia of both eyes 06/01/2024 Travel 05/28/2024 Refill [facility] [address] [place] [address] Aneesh Oliveira MD Chronic low back pain, unspecified back pain laterality, unspecified whether sciatica present 05/24/2024 Orders Only GENERIC EXTERNAL DATA DEPARTMENT Provider, Generic External Data from Last 3 Months Immunizations Name Administration [...] Description 08/24/2024 9:00 AM EDT Medication Management [facility] [address] [place] [address] Sandra Rasheed, PharmD [address] [place] [address] 09/26/2024 10:45 AM EDT Office Visit [facility] [address] [place] [address] Name, MD Aneesh [address] [place] [address] 11/30/2024 10:00 AM EDT Office Visit [facility] OPTOMETRY [address] [place] [address] Nathanael, Jayne, OD 230 [place] [address] Health Maintenance Due Date Last Done Comments [...] Procedure Name Priority Date/Time Associated Diagnosis Comments [facility] LOWER EXTREMITY ARTERIAL DUPLEX BILATERAL WITH BAYLEE Routine 06/20/2024 1:51 PM EST OCT, RETINA - OU - BOTH EYES Routine 06/01/2024 3:30 PM EST Epiretinal membrane, both eyes BASIC METABOLIC PANEL Routine 05/24/2024 8:27 AM EST LIPID PANEL, STANDARD Routine 05/24/2024 8:27 AM EST On statin therapy URINALYSIS, COMPLETE Routine 05/24/2024 8:23 AM EST POCT GLYCATED HEMOGLOBIN, TOTAL Routine 05/18/2024 10:47 AM EST Type 2 diabetes mellitus with other specified complication, without long-term current use of insulin (CMS/HCC) HM COLONOSCOPY Routine 02/10/2023 PANORAMIC RADIOGRAPHIC IMAGE Routine 08/26/2021 12:00 AM EDT ZZZ HISTORICAL HEPATITIS C AB W/REFL TO HCV RNA, QN, PCR Routine 11/25/2020 10:49 AM EDT INTRAORAL - COMPLETE SERIES OF RADIOGRAPHIC IMAGES Routine 04/03/2009 12:00 AM EDT from Last 3 Months or Most Recently Relevant to Health Maintenance Results * [facility] Lower Extremity Arterial Duplex Bilateral With Baylee (06/20/2024 1:51 PM EST) 06/20/2024 1:51 PM EST Narrative [facility] - 06/20/2024 1:53 PM EST ? [facility] ?[address] ?[place] [address] ? Ultrasound Report ? Signed ? Patient: Gautam,Josue ?MR#: [id number] ?? [id number] ? : 1950 ?Acct:[id number] ? Age/Sex: 73 / M ?ADM Date: 01/06/25 ? Loc: HO.US ? Attending Dr: Rodney Smith MD ? Ordering Physician: Rodney Smith MD ?? Date of Service: 06/18/24 ?? Procedure(s): US arterial duplex BI w/ BAYLEE ?? Accession Number(s): [id number] ? cc: Rodney Smith MD; Name,Aneesh RIVERS [...] by Ye Ramirez MD in OV> ? 06/20/241352 ? DD/ 50 ? TD/TT: 06/20/241350 ? Lead Inspector: ? Procedure Note Donotuseinterpreter, Image - 06/20/[address] [address] Ultrasound Report Signed Patient: Sylvia Gautam#: [id number] 713 : 1Acct:[id number] Age/Sex: 73 / MADM Date: 06/18/24 Loc: HO.US Attending Dr: Rodney Smith MD Ordering Physician: Rodney Smith MD Date of Service: 06/18/24 Procedure(s): US arterial duplex BI w/ BAYLEE Accession Number(s): [id number] cc: Rodney Smith MD; Name,Aneesh RIVERS CLINICAL [...] 06/20/24 1353 DD/ 1351 TD/TT: 06/20/24 1351 Lead Inspector: [facility] External Provider CV VASC ULAR PROCEDURES Edited Result - Final [facility] [address] [place] [phone] * OCT, Retina - OU - Both Eyes (06/01/2024 3:30 PM EST) Jayne Banda, OD - 06/21/2024 2:31 PM EST OCT [...] AM EST) Triglycerides 185(H) <150 mg/dL [facility] Comment:Desirable Triglyceri de: less than 150 mg/dLBorderline High Triglyceride 150-199 mg/dLHigh Triglyceride: 200-499 mg/dLVery High Triglyceride: greater than or equal to 5OO mg/dL Cholesterol 162 <200 mg/dL [facility] Comment:Desirable Cholestero l: less than 200 mg/dLBorderline High Cholesterol: 200-239 mg/dLHigh Cholesterol: greater than 239 mg/dL LDL Cholesterol Calculated 88 <100 mg/dL [facility] Comment:Desirable LDL: less than 100 mg/dLNear Optimal/Above Optimal LDL: 110- 129 mg/dLBorderline High LDL: 130-159 mg/dLHigh LDL: 160-189 mg/dLVery High LDL: greater than or equal to 190 mg/dL HDL Cholesterol 37(L) >40 mg/dL [facility] Comment:Desirable HDL: great er than 40 mg/dL Note: This HDL assay may give artificially low results in patients with liver disease. Blood Venous blood specimen / Unknown 05/24/2024 8:27 AM EST 05/24/2024 8:27 AM EST us Aneesh Name MD LAB BLOOD ORDERABLES Final Resul t [facility] [address] [place] [phone] * (ABNORMAL) Basic Metabolic Panel (05/24/2024 8:27 AM EST) Sodium 140 135 - 145 mmol/L [facility] Potassium 3.9 3.3 - 5.1 mmol/L [facility] Chloride 102 96 - 108 mmol/L [facility] Carbon Dioxide 26 22 - 29 mmol/L [facility] Anion Gap 16 12 - 20 [facility] Urea Nitrogen (BUN) 27(H) 9 - 16 mg/dL [facility] Creatinine, Serum 1.37 0.5 - 1.4 mg/dL [facility] Estimated Glomerular Filt Rate 51 [facility] Comment:Chronic Kidney Disea se: Estimated GFR < 60 mL/min/[id number] Kidney Disease: Estimated GFR < 15 mL/min/1.73m2 Glucose 349(H) 60 - 115 mg/dL [facility] Calcium 9.7 8.4 - 10.2 mg/dL [facility] 05/24/2024 8:2 7 AM EST 05/24/2024 8:27 AM EST us Generic External Data Provider LAB BLOOD ORDERAB LES Final Result Performing Organization Address [facility] Co de Phone Number [facility] [address] [place] [phone] * (ABNORMAL) Urinalysis Complete (05/24/2024 8:23 AM EST) Color Urine Yellow [facility] Appearance Urine Clear [facility] PH 6.5 5.0 - 9.0 [facility] Glucose Urine UA >=1000(A) Negative mg/dL [facility] Urine Blood Negative Negative [facility] Specific [place] - Urine 1.025 1.005 - 1.025 [facility] Urine Protein 100 (2+)(A) Neg-Trace mg/dL [facility] Urine Ketones Negative Negative mg/dL [facility] Nitrite Urine Negative Negative [facility] Leukocyte Esterase Urine Negative Negative [facility] RBC Urine 0-2 0 - 2 /HPF [facility] Urine WBC 0-5 0 - 5 /HPF [facility] Urine Squamous Epithelial Cell 0-2 0 - 2 /HPF [facility] Urine Bacteria None Seen None Seen [facility] Hyaline Casts, Urine 0-2 0 - 2 /LPF [facility] 05/24/2024 8:23 AM EST 05/24/2024 9:00 AM EST us Generic External Data Provider LAB URINE ORDERAB LES Final Result Performing Organization Address [facility]/ZIP Co de Phone Number [facility] [address] [place] [phone] * (ABNORMAL) POCT HGB A1C (05/18/2024 10:47 AM EST) Hemoglobin A1C 8.9(A) 4.0 - 6.0 % Blood 05/18/2024 10:4 7 AM EST us Aneesh Oliveira MD POINT OF CARE TEST ENTER/EDIT OR DERABLES Final Result * (ABNORMAL) Colonoscopy (02/10/2023) Pathologist [facility] Colonoscopy Abnormal(A ) Normal us Aneesh Oliveira MD HEALTH MAINTENANCE Final Result * HEPATITIS C AB W/REFL TO HCV RNA, QN, PCR (11/25/2020 10:49 AM EDT) Pathologist [facility] HEPATITIS C ANTIBODY NON-REACT TOM NON-REACT TOM [facility] INDEX 0.00 <1.00 [facility] Comment: ?? HCV antibody was non-reactive. There is no laboratory ?? evidence of HCV infection. ?? In most cases, no further action is required. However, if recent HCV exposure is suspected, a test for HCV RNA (test code 98988) is suggested. ?? For additional information please refer to http://education.Salesforce/faq/UAC93v0 (This link is being provided for informational/ educational purposes only.) ?? 11/25/2020 10:4 9 AM EDT us Aneesh Oliveira MD HISTORICAL/NON ORDERABLE LABS Fi nal Result [facility] [address] from Last 3 Months or Most Recently Relevant to Health Maintenance Insurance STANDARD [facility] DUAL COMPLETE DENTAL - [facility] Care Teams [employer] Developer Relationship Specialty Start Date End Date Name, MD Aneesh [address] [place] [address] PCP - General Family Medicine 02/14/18
--- OUTSIDE RECORDS SUMMARY | 2024-08-20 10:19 | XMS_ITS | Encounter Summary ---
Author Organization [employer] Address 75 [facility] 7t [place] [address] Care Team Providers Care Processing Assistant Name Role Phone Name, Aneesh RIVERS Primary Care Provider [phone] Reason for Visit * Reason Onset Date Comments FYI 08/23/2023 Encounter Details Date Type Department Care Team (Late st Contact Info) Description 08/23/2023 Telephone [facility] [address] [place], [place] [phone] Name, MD Aneesh [address] [place] [address] FYI Social History Tobacco Use Types Packs/Day [...] 3:03 PM EDT Tc from Leidy with [facility] stating pt no longer wants to continue care with them. Leidy stated pt no showed 3 appts in a row and when asked about it pt said it was due to to transportation. Pt claims they are irresponsible and that they don't communicate. Pt stated he will continue care with PCP. If any questions please contact Leidy at [phone]. documented in this encounter Plan of Treatment Upcoming Encounters Date Type Department Care Team ([facility] st Contact Info) Description 08/24/2024 9:00 AM EDT Medication Management [facility] [address] [place] [address] Sandra Rasheed, PharmD [address] [place] [address] 09/26/2024 10:45 AM EDT Office Visit [facility] [address] [place] [address] Name, MD Aneesh [address] [place] [address] 11/30/2024 10:00 AM EDT Office Visit [facility] [address] [place] [address] Jyane Huffman, BRYANT 230 [place] [address] documented as of this encounter Visit Diagnoses Not on filedocumented in this encounter Additional Health Concerns Assessment Noted Time PHQ-9 Depression Total Score: 4 08/23/19 24 9:44 AM EDT documented as of this encounter Care Teams Processing Assistant Relationship Specialty Start Date End Date Name, MD Aneesh [address] [place] [address] PCP - General Family Medicine 02/14/18 documented as of this encounter
--- OUTSIDE RECORDS SUMMARY | 2024-08-20 10:19 | XMS_ITS | Encounter Summary ---
Author Organization [employer] Address 75 [facility] 7t [place] [address] Care Team Providers Care Staff Assistant Name Role Phone Name, Aneesh RIVERS Primary Care Provider Reason for Visit * Reason Comments Med Refill Encounter Details Date Type Department Care Team ([facility] st Contact Info) Description 08/18/2023 Refill [facility] [address] [place], [place] [phone] Name, MD Aneesh [address] [place] [address] Social History Tobacco Use Types Packs/Day Years [...] Description 08/24/2024 9:00 AM EDT Medication Management [facility] [address] [place] [address] Sandra Rasheed, PharmD [address] [place] [address] 09/26/2024 10:45 AM EDT Office Visit [facility] [address] [place] [address] Name, MD Aneesh [address] [place] [address] 11/30/2024 10:00 AM EDT Office Visit [facility] [address] [place] [address] Nathanael, Jayne, OD [address] [place] [address] documented as of this encounter Visit Diagnoses Not on filedocumented in this encounter Care Teams Staff Assistant Relationship Specialty Start Date End Date Name, MD Aneesh [address] [place] [address] PCP - General Family Medicine 02/14/18 documented as of this encounter
--- OUTSIDE RECORDS SUMMARY | 2024-08-20 10:19 | XMS_ITS | Encounter Summary ---
Author Organization [employer] Address 75 [facility] 7t [place] [address] Care Team Providers Care Corporate Law Assistant Name Role Phone Name, Aneesh RIVERS Primary Care Provider [phone] Reason for Visit * Reason Comments Med Refill Encounter Details Date Type Department Care Team ([facility] st Contact Info) Description 06/25/2024 Refill [facility] [address] [place], [place] [phone] Name, MD Aneesh [address] [place] [address] Hypertension, unspecified type; Prostatism; Type 2 diabetes mellitus with hyperglycemia (CMS/HCC); 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 ([facility]) Social History Tobacco Use Types Packs/Day [...] Description 08/24/2024 9:00 AM EDT Medication Management [facility] [address] [place] [address] Sandra Rasheed, PharmD [address] [place] [address] 09/26/2024 10:45 AM EDT Office Visit [facility] [address] [place] [address] Name, MD Aneesh [address] [place] [address] 11/30/2024 10:00 AM EDT Office Visit [facility] [address] [place] [address] Jayne Huffman, OD [address] [place] [address] documented as of this encounter Visit Diagnoses Diagnosis Hypertension, unspecified type Prostatism Unspecified hyperplasia of prostate without urinary obstruction and other lower urinary tract symptoms (LUTS) Type 2 diabetes mellitus with hyperglycemia (CMS/HCC) alf (current) use of insulin (CMS/HCC) documented in this encounter Additional Health Concerns Assessment Noted Time PHQ-9 Depression Total Score: 4 08/23/19 24 9:44 AM EDT documented as of this encounter Care Teams Corporate Law Assistant Relationship Specialty Start Date End Date Name, MD Aneesh 230 [place] [address] PCP - General Family Medicine 02/14/18 documented as of this encounter
--- OUTSIDE RECORDS SUMMARY | 2024-08-20 10:19 | XMS_ITS | Encounter Summary ---
Author Organization [employer] Address [address] [facility] [address] 7[address] [place] [address] Care Team Providers Care Welding Robot Operator Name Role Phone Name, Aneesh RIVERS Primary Care Provider [phone] Encounter Details Date Type Department Care Team ([facility] st Contact Info) Description 03/23/2023 Orders Only [facility] [address] [place] [address] Amber Brantley LPN Social History Tobacco Use [...] Description 08/24/2024 9:00 AM EDT Medication Management [facility] [address] [place] [address] Sandra Rasheed, PharmD [address] [place] [address] 09/26/2024 10:45 AM EDT Office Visit [facility] [address] [place] [address] Name, MD Aneesh 230 [place] [address] 11/30/2024 10:00 AM EDT Office Visit [facility] [address] [place] [address] Jayne Huffman, OD 230 [place] [address] documented as of this encounter Visit Diagnoses Not on filedocumented in this encounter Care Teams Welding Robot Operator Relationship Specialty Start Date End Date Aneesh Oliveira MD [address] [place] [address] PCP - General Family Medicine 02/14/18 documented as of this encounter
--- OUTSIDE RECORDS SUMMARY | 2024-08-20 10:19 | XMS_ITS | Encounter Summary ---
Author Organization [employer] Address [address] [facility] [address] 7[address] [place] [address] Care Team Providers Care Making Machine Operator Name Role Phone Name, Aneesh RIVERS Primary Care Provider [phone] Reason for Visit * Reason Comments Med Refill Encounter Details Date Type Department Care Team ([facility] st Contact Info) Description 04/09/2024 Refill [facility] [address] [place], [place] [phone] Name, MD Aneesh [address] [place] [address] Chronic low back pain, unspecified back pain [...] 08/24/2024 9:00 AM EDT Medication Management [facility] [address] [place] [address] Sandra Rasheed, PharmD 230 [place] [address] 09/26/2024 10:45 AM EDT Office Visit [facility] [address] [place] [address] Aneesh Oliveira MD 230 [place] [address] 11/30/2024 10:00 AM EDT Office Visit [facility] [address] [place] [address] Nathanael, Jayne, OD 230 [place] [address] documented as of this encounter Visit Diagnoses Diagnosis Chronic low back pain, unspecified back pain laterality, unspecified whether sciatica present documented in this encounter Additional Health Concerns Assessment Noted Time PHQ-9 Depression Total Score: 4 08/23/19 24 9:44 AM EDT documented as of this encounter Care Teams Making Machine Operator Relationship Specialty Start Date End Date Aneesh Oliveira MD [address] [place] [address] PCP - General Family Medicine 02/14/18 documented as of this encounter
--- OUTSIDE RECORDS SUMMARY | 2024-08-20 10:19 | XMS_ITS | Encounter Summary ---
Author Organization [employer] Address 75 [facility] 7t [place] [address] Care Team Providers Care Derrick Boat Operator Name Role Phone Name, Aneesh RIVERS Primary Care Provider [phone] Reason for Visit * Reason Comments Med Refill Encounter Details Date Type Department Care Team ([facility] st Contact Info) Description 08/19/2023 Refill [facility] [address] [place], [place] [phone] Name, MD Aneesh [address] [place] [address] Social History Tobacco Use Types Packs/Day Years [...] Description 08/24/2024 9:00 AM EDT Medication Management [facility] [address] [place] [address] Sandra Rasheed, PharmD [address] [place] [address] 09/26/2024 10:45 AM EDT Office Visit [facility] [address] [place] [address] Name, MD Aneesh [address] [place] [address] 11/30/2024 10:00 AM EDT Office Visit [facility] [address] [place] [address] Nathanael, Jayne, OD [address] [place] [address] documented as of this encounter Visit Diagnoses Not on filedocumented in this encounter Care Teams Derrick Boat Operator Relationship Specialty Start Date End Date Name, MD Aneesh [address] [place] [address] PCP - General Family Medicine 02/14/18 documented as of this encounter
--- OUTSIDE RECORDS SUMMARY | 2024-08-20 10:19 | XMS_ITS | Encounter Summary ---
Author Organization [employer] Address 75 [facility] 7t [place] [address] Care Team Providers Care Pesticide Control Inspector Name Role Phone Name, Aneesh RIVERS Primary Care Provider [phone] Reason for Visit * Reason Comments Med Refill Encounter Details Date Type Department Care Team ([facility] st Contact Info) Description 08/13/2024 Refill [facility] [address] [place], [place] [phone] [facility] 230 [place] [address] Chronic low back pain, unspecified back pain [...] encounter Miscellaneous Notes * Telephone Encounter - Danisha Watts LPN - 08/14/2024 10:02 AM EST SUPERVISOR ROLLING ROOM checked on 08/14/24. documented in this encounter Plan of Treatment Upcoming Encounters Date Type Department Care Team (Late st Contact Info) Description 08/24/2024 9:00 AM EDT Medication Management [facility] [address] [place] [address] PuiaSandra, PharmD 230 [place] [address] 09/26/2024 10:45 AM EDT Office Visit [facility] [address] [place] [address] Name, MD Aneesh [address] [place] [address] 11/30/2024 10:00 AM EDT Office Visit [facility] [address] [place] [address] Jayne Huffman, OD [address] [place] [address] documented as of this encounter Visit Diagnoses Diagnosis Chronic low back pain, unspecified back pain laterality, unspecified whether sciatica present documented in this encounter Additional Health Concerns Assessment Noted Time PHQ-9 Depression Total Score: 4 08/23/19 24 9:44 AM EDT documented as of this encounter Care Teams Pesticide Control Inspector Relationship Specialty Start Date End Date Name, MD Aneesh [address] [place] [address] PCP - General Family Medicine 02/14/18 documented as of this encounter
--- OUTSIDE RECORDS SUMMARY | 2024-08-20 10:19 | XMS_ITS | Encounter Summary ---
Author Organization [employer] Address 75 [facility] 7t [place] [address] Care Team Providers Care Surgical Clinical Reviewer Name Role Phone Name, Aneesh RIVERS Primary Care Provider [phone] Reason for Visit * Reason Comments Med Refill Encounter Details Date Type Department Care Team ([facility] st Contact Info) Description 05/02/2024 Refill [facility] MED[facility]INE [address] [place], [place] [phone] Name, MD Aneesh [address] [place] [address] Chronic constipation Social History Tobacco Use Types [...] Description 08/24/2024 9:00 AM EDT Medication Management [facility] MED[facility]INE [address] [place] [address] Sandra Rasheed, PharmD [address] [place] [address] 09/26/2024 10:45 AM EDT Office Visit [facility] MED[facility]INE [address] [place] [address] Aneesh Oliveira MD 230 [place] [address] 11/30/2024 10:00 AM EDT Office Visit [facility] OPT[facility]RY [address] [place] [address] Nathanael, Jayne, OD 230 [place] [address] documented as of this encounter Visit Diagnoses Diagnosis Chronic constipation Unspecified constipation documented in this encounter Additional Health Concerns Assessment Noted Time PHQ-9 Depression Total Score: 4 08/23/19 24 9:44 AM EDT documented as of this encounter Care Teams Surgical Clinical Reviewer Relationship Specialty Start Date End Date Aneesh Oliveira MD [address] [place] [address] PCP - General Family Medicine 02/14/18 documented as of this encounter
== END 2024-08-20 09:31 | disposition home or self-care (01) ==
LOC: HO.US 09:30
PROVIDERS: PCP Internal Medicine Geriatric Medicine; Visit Provider Surgery Vascular Surgery
DX: Z13.89 Encounter for screening for other disorder (principal)

== ENCOUNTER 2024-08-22 08:25 | Emergency (ER) | payer OTHER, SELFPAY ==
--- NOTE | ~2024-08-22 | US_ITS ---
EXAMINATION: US LOWER EXTREMITY VEINS LIMITED FOLLOW UP LEFT HISTORY: leg pain COMPARISON: Comparison is made with the prior examination dated 12/26/2023. TECHNIQUE: Duplex and color Doppler sonographic examination of the deep venous system of the left lower extremity was performed. FINDINGS: The common femoral, superficial femoral, and popliteal veins are patent demonstrating normal compressibility, spontaneous flow, and augmentation. There is a normal color and spectral Doppler waveform appearance of the visualized deep venous system above the knee. The peroneal veins are patent. The posterior tibial veins are noncompressible with no flow identified, consistent with thrombosis. US/US venous duplex LE LT IMPRESSION: No evidence of acute DVT in the left lower extremity above the knee. 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 Follow-up is recommended to evaluate for extension into the deep venous system. Electronically signed by: Berlin Willoughby MD 08/22/2024 09:34 AM EDT
--- NOTE | ~2024-08-22 | XR_ITS ---
EXAMINATION: XR CHEST CLINICAL INFORMATION: cp COMPARISON: None available. TECHNIQUE: Frontal view of the chest was obtained. FINDINGS: Borderline cardiac enlargement. Hilar and mediastinal contours are normal. Aortic mural calcifications. The lungs are clear bilaterally. No pneumothorax or effusion. No focal osseous or soft tissue abnormality. XR/XR chest 1V IMPRESSION: No active pulmonary disease. Electronically signed by: Luiz Manzo MD 08/22/2024 09:20 AM EDT
--- NOTE | ~2024-08-22 | CT_ITS ---
EXAMINATION: CT ABDOMEN AND PELVIS WITHOUT CONTRAST CLINICAL INFORMATION: Back pain. COMPARISON: January 27, 2022. TECHNIQUE: Multidetector volumetric imaging was performed from the superior aspect of the liver through the pubic symphysis. Sagittal and coronal reformatted images were obtained on the technologist's workstation. This CT examination was performed using dose optimization techniques as appropriate, variously including the following: *Automated exposure control *Adjustment of mA and/or kV according to patient size (this includes techniques or standardized protocols for targeted exams where dose is matched to indication/reason for exam; i.e. extremities or head) *Use of iterative reconstruction technique. DLP: 751 mGy centimeter. FINDINGS: Limited examination of the intra-abdominal organs and vascular structures due to lack of IV contrast. LUNG BASES: Patchy pulmonary groundglass. Questionable 2 mm pulmonary nodules right middle lobe. LIVER, GALLBLADDER, AND BILIARY TREE: Liver measures 20 cm no intrahepatic biliary ductal dilatation. Status post cholecystectomy. Common bile duct measures 4 mm. PANCREAS: No peripancreatic collections. No main pancreatic ductal dilatation. SPLEEN: 10 cm. ADRENAL GLANDS: No nodular lesions. KIDNEYS AND URETERS: No hydronephrosis. No nephrolithiasis. 2 cm exophytic hypodensity in the posterior midportion right kidney. BLADDER: Fluid-filled with questionable wall thickening in the anterior wall. GASTROINTESTINAL TRACT: Abundant stool, large intestine. No intestinal obstruction pattern. No pneumatosis intestinalis. No pneumoperitoneum. No ascites. Postsurgical changes in the medial wall of the cecum likely appendectomy. ABDOMINAL WALL: Diastases abdominal rectus muscles and small fat-containing umbilical hernia. Protrusion of the intra-abdominal organs in the periumbilical region. LYMPH NODES: No lymphadenopathy, mesenteric or retroperitoneal. VASCULAR: Calcified plaques in the abdominal aorta mesenteric arteries, splenic artery and iliac arteries. No aneurysm in the abdominal aorta. Calcified plaques in the coronary arteries and the descending thoracic aorta. PELVIC VISCERA: 6 cm heterogeneous enlarged prostate gland. OSSEOUS STRUCTURES: Multilevel thoracolumbar spondylosis. Degenerative changes in the hips. No acute fracture or gross listhesis. Gynecomastia, bilaterally. CT/CT abdomen pelvis wo IV con IMPRESSION: Anterior wall thickening of the bladder. Enlarged prostate gland. Benign prostate hyperplasia versus malignancy should be considered. Hepatomegaly. 2 cm cyst, right kidney. Small fat-containing umbilical hernia and diastases abdominal rectus muscles. Atherosclerosis disease and coronary artery disease. Fleischner guidelines were followed. Electronically signed by: Cheo Galindo MD 08/22/2024 09:10 AM EDT
[2024-08-22 08:39] VITALS: BP 182/61; PULSE 82; RESP 20; TEMP 36.9; O2SAT 95; BMI 34.7
--- NOTE | 2024-08-22 08:44 | ECG_ITS ---
Test Reason : sob Blood Pressure : */* mmHG Vent. Rate : 75 BPM Atrial Rate : 75 BPM P-R Int : 226 ms QRS Dur : 88 ms QT Int : 364 ms P-R-T Axes : 52 3 51 degrees QTcB Int : 406 ms Sinus rhythm with 1st degree A-V block Otherwise normal ECG When compared with ECG of 03-Jan-2023 07:44, No significant change was found Referred By: Alina Odom Electronically Signed By: AUSTEN ZAYAS
--- NOTE | 2024-08-22 09:39 | ED_ITS ---
HPI - General Adult General Chief complaint: Upper Respiratory Symptoms Stated complaint: ? L Leg Cellulitis Multiple Complaints Time Seen by Provider: 08/22/24 08:29 History of Present Illness HPI narrative: Patient is a 74-year-old male with a history of vascular disease history of chronic kidney disease history of lumbar radiculopathy history of pain radiating down to the left leg in the past. History of cellulitis to the left leg. History of peripheral vascular problem being followed by Dr. Smith. Presented with having increasing coughing upper respiratory symptoms generalized malaise. Entire body aching. Patient also has pain in his back radiating down to the leg. This is very similar to previous. There is no new bowel urinary incontinence. There is no new focal weakness. patient was given a course of antibiotics for question cellulitis versus venous stasis of the left lower extremity. This was done approximately 2 weeks ago with vascular Dr. Smith. Patient claims that symptom actually has gotten better. No fever no chills no diaphoresis. Patient from home. Related Data Home Medications ?Medication ?Instructions ?Recorded ?Confirmed aspirin 81 mg tablet,delayed 81 mg PO DAILY 05/07/20 04/23/24 release blood sugar diagnostic #10 ea 05/07/20 03/08/24 chlorthalidone 50 mg tablet 50 mg PO QAM 05/07/20 04/23/24 gabapentin 100 mg capsule 200 mg PO BEDTIME 05/07/20 04/23/24 insulin syringe-needle U-100 1 mL #10 ea 05/07/20 03/08/24 29 gauge x 1/2 sennosides 8.6 mg tablet (senna) 17.2 mg PO DAILY PRN constipation 08/12/21 04/23/24 lancets #100 ea 04/06/23 03/08/24 lancets 30 gauge (OneTouch #100 ea 04/06/23 03/08/24 UltraSoft 2 Lancet) spironolactone 25 mg tablet 25 mg PO QAM 04/06/23 04/23/24 tamsulosin 0.4 mg capsule 0.8 mg PO BEDTIME 04/06/23 04/23/24 verapamil 120 mg tablet,extended 120 mg PO QAM 04/06/23 04/23/24 release pravastatin 40 mg tablet 40 mg PO BEDTIME 03/07/24 11/11/24 amlodipine 10 mg tablet 10 mg PO QAM 11/10/23 04/23/24 canagliflozin 100 mg tablet 100 mg PO DAILY 06/11/24 (Invokana) cetirizine 10 mg tablet mg PO 06/11/24 lactulose 10 gram/15 mL oral ml PO 06/11/24 solution polyethylene glycol 3350 17 17 g PO DAILY 06/11/24 gram/dose oral powder semaglutide 0.25 mg or 0.5 mg (2 mg subcut 06/11/24 mg/3 mL) subcutaneous pen injector (Ozempic) Previous Rx's ?Medication ?Instructions ?Recorded flash glucose scanning reader #1 ea 04/14/23 (FreeStyle Willy 2 [place]) flash glucose sensor (FreeStyle #2 ea 04/14/23 Willy 2 Sensor kit) metformin 1,000 mg tablet 1,000 mg PO BID #60 tabs 04/21/23 insulin glargine U-300 conc 300 80 unit (0.2667 mL) subcut BEDTIME 05/24/23 unit/mL (3 mL) subcutaneous pen #6 mL (Toujeo Max U-300 SoloStar) pen needle, diabetic 32 gauge x #100 ea 07/18/23/32 (UltiCare Pen Needle) insulin lispro 100 unit/mL See Rx Instructions subcut 07/19/23 subcutaneous pen (Humalog KwikPen .COMPLEX #30 mL (U-100) Insulin) clopidogrel 75 mg tablet (Plavix) 75 mg PO DAILY #90 tabs 03/07/24 sennosides 8.6 mg tablet (senna) 17.2 mg (2 x 8.6 mg) PO DAILY 90 06/11/24 days #180 tabs psyllium husk 0.4 gram capsule 1.2 g (3 x 0.4 gram) PO BID 90 06/14/24 (Reguloid (psyllium husk)) days #540 caps cephalexin 500 mg tablet 500 mg PO BID #20 tabs 07/11/24 Allergies Allergy/AdvReac Type Severity Reaction Status Date / Time lisinopril [LISINOPRIL] Allergy Severe ANGIOEDEMA Verified 08/22/24 08:41 prednisone [PREDNISONE] Allergy Mild ITCHY Verified 08/22/24 08:41 Review of Systems 2 Review of Systems: No chest pain or diaphoresis. No fever no chills. Positive back pain positive generalized aches. Positive cough upper respiratory symptoms Yes all other systems are reviewed and are negative [facility] Past Medical History Attestation statement: The following information was validated with the patient. Medical History NAFLD (nonalcoholic fatty liver disease) Transaminitis Basal cell carcinoma (BCC) Skin lesion of left lower extremity Heart murmur Familial hypocalciuric hypercalcemia Multinodular thyroid Vitamin D deficiency HLD (hyperlipidemia) HTN (hypertension) T2DM (type 2 diabetes mellitus) Surgical History Hx of melanoma excision Hx of esophagogastroduodenoscopy Hx of colonoscopy Hx of appendectomy Hx of cholecystectomy Family History Family History Father CVD (cardiovascular disease) Diabetes Brother CVD (cardiovascular disease) Diabetes FH: heart attack Social History Social History Household Members: Family Housing: House Do you presently have visiting nurse or other home services: Yes (visiting nurse 2x week) Alcohol intake: never Patient Tobacco Use Status: Never used Tobacco Smoked in Last 30 Days: No Use of substances other than those prescribed or required for medical reasons: No Advance Directives: No Advance Directives Information Provided: Yes service: No Current occupational status: unemployed Physical Exam ED Vital Signs: Vital Signs - 24 hr 08/22/24 08:39 08/22/24 11:38 Temperature 98.4 F 97.7 F Pulse Rate 82 72 Respiratory Rate 20 16 Blood Pressure 182/61 H 176/72 H Pulse Oximetry 95 97 Oxygen Delivery Method Room Air Room Air BMI result Body Mass Index 34.7 Appearance: Alert. Oriented X3. No acute distress. Eyes: Pupils equal, round and reactive to light. ENT: Pharynx normal. Neck: Normal inspection. Neck supple. No lymph nodes noted. No crepitus CVS: Normal heart rate and rhythm. Pulses normal. Normal S1 and S2 Respiratory: No respiratory distress. Breath sounds normal. No Wheezing. No rales Abdomen: Soft and nontender. No rigidity. No distention. good BS x4 Skin: Skin warm and dry. Normal skin color. Normal skin turgor. Extremities: positive chronic venous stasis to the left leg. Distal pulses palpable. Good sensation over the lower extremity. Negative straight leg raise test. Sensation to the lower extremity intact. Neuro: Oriented X 3. No motor deficit. No sensory deficit. Moving all extermities. No slurred speech Medical Decision Making Medical Decision Making [facility] Narrative: patient 74 years old presents today with coughing upper respiratory symptoms generalized malaise weakness. Has chronic back pain has chronic pain to the leg. My interpretation patient's chest x-ray is grossly negative for any acute evidence of Pneumonia pneumothorax. I reviewed radiology's reading which was grossly negative. Patient's CT scan of the abdomen pelvis showed no evidence of dissection showed no gross evidence of bleed showed question renal cysts on the right side. This finding was explained to him. Close follow-up advised. Ultrasound of the left lower extremity showed evidence of [id number] DVT. Will have patient get a repeat ultrasound in 1 week. Follow-up on an outpatient basis. This was all told to him through an rn travel. Patient's COVID flu RSV came back positive for COVID. Likely the cause of patient's coughing upper respiratory symptoms. Patient's O2 sat is normal. He is not in any acute distress. He had had all his immunizations for COVID. A joint decision was made with him felt his risk is low. Patient to be discharged home. Differential Diagnosis Differential Diagnoses: The differential diagnosis associated with the presentation includes COVID flu RSV, pneumonia, DVT, back pain, abdominal pathology, sciatica, cauda equinus syndrome Admission/Observation Consideration of admission/observation: Escalation of care including admission/observation considered Lab Data [facility] Lab Attestation statement: I reviewed the patient's lab results. 08/22/24 09:38 08/22/24 09:38 Labs: Lab Results 08/22/24 08/22/24 08/22/24 Range/Units 09:35 09:38 11:15 WBC 6.0 (4.8-10.8) X10*3/uL RBC 4.78 (4.60-5.80) X10*6/uL Hgb 14.2 (14.0-18.0) g/dl Hct 41.6 L (42.0-52.0) % MCV 87.0 (80.0-98.0) fL MCH 29.7 (27.0-33.0) pg MCHC 34.1 (31.0-36.0) g/dl RDW 12.9 (11.0-16.0) % Plt Count 233 (160-400) X10*3/uL MPV 10.1 (9.4-12.4) fL Immature Gran % (Auto) 1.0 H (0.0-0.4) % Neut % (Auto) 53.6 (45-73) % Lymph % (Auto) 18.7 L (20-40) % [place] % (Auto) 20.7 H (2-11) % Eos % (Auto) 5.0 H (0-4) % Baso % (Auto) 1.0 (0-2) % Lymph # (Auto) 1.1 L (1.2-4.9) X10*3/uL [place] # (Auto) 1.2 (0.1-1.2) X10*3/uL Eos # (Auto) 0.3 (0.0-0.4) X10*3/uL Baso # (Auto) 0.1 (0.0-0.2) X10*3/uL Abs Immat Gran (auto) 0.06 H (0.00-0.03) X10*3/uL Absolute Neuts (auto) 3.2 (2.0-8.3) x10*3/uL Absolute Nucleated RBC 0.000 (0.0-0.012) X10*3/uL Nucleated RBC % (auto) 0.0 (0.0-0.2) /100WBC Smear Tech's Comments VERIFIED Sodium 136 (135-145) mmol/L Potassium 3.6 (3.3-5.1) mmol/L Chloride 101 (96-108) mmol/L Carbon Dioxide 28 (22-29) mmol/L Anion Gap 11 L (12-20) BUN 21 H (9-16) mg/dL Creatinine 1.21 (0.5-1.4) mg/dL Estim Creat Clear Calc 58.5 Estimated GFR 59 Random Glucose 343 H (60-115) mg/dL Calcium 9.5 (8.4-10.2) mg/dL Total Bilirubin 0.4 (0.0-1.0) mg/dL Direct Bilirubin 0.1 (0.0-0.5) mg/dL AST 33 (5-37) U/L ALT 48 H (0-40) U/L Alkaline Phosphatase 70 (39-117) U/L Troponin I High Sens 3.2 (<3.5-35.0) ng/L B-Natriuretic Peptide 24 (<100) pg/mL Total Protein 7.6 (6.5-8.0) g/dL Albumin 3.5 (3.5-5.0) g/dL Urine Color Yellow Urine Appearance Clear Urine pH 6.5 (5.0-9.0) Ur Specific [place] 1.020 (1.005-1.025) Urine Protein 300 (3+) H (Neg-Trace) mg/dL Urine Glucose (UA) >=1000 H (Negative) mg/dL Urine Ketones Negative (Negative) mg/dL Urine Blood Trace H (Negative) Urine Nitrite Negative (Negative) Ur Leukocyte Esterase Negative (Negative) Urine RBC 0-2 (0-2) /HPF Urine WBC 0-5 (0-5) /HPF Ur Squamous Epith Cells 0-2 (0-2) /HPF Urine Bacteria None Seen (None Seen) Hyaline Casts 0-2 (0-2) /LPF Influenza Type A (PCR) NEGATIVE (Negative) Influenza Type B (PCR) NEGATIVE (Negative) RSV RNA Qual (PCR) NEGATIVE (Negative) SARS-CoV-2 RNA (RT-PCR) POSITIVE A (Negative) Independent Interpretation I performed an independent interpretation of an: Plain X-Ray ( chest x-ray grossly negative) Radiology Impression Discussion of test interpretation with radiology: I have reviewed the radiologist's reading. External Record Review External record reviewed: Inpatient record Chronic Conditions chronic renal disease diabetes peripheral vascular disease disease Discharge Plan Discharge Clinical Impression: COVID, DVT (deep venous thrombosis), Renal cyst Patient Disposition: Home, Self-Care Instructions: Deep Vein Thrombosis (ED), Kidney Cyst (ED), COVID-19 (Coronavirus Disease 2019) (ED) Additional Instructions: A cyst was found in your right kidney Prescriptions: No Action metformin 1,000 mg tablet 1,000 mg PO BID Qty: 60 3RF Toujeo Max U-300 SoloStar 300 unit/mL (3 mL) insulin pen 80 unit subcut BEDTIME Qty: 6 2RF (DME) pen needle, diabetic [UltiCare Pen Needle] 32 gauge x 5/32 needle See Rx Instructions .ROUTE .COMPLEX Qty: 100 11RF Dose Instruction: USE DIRECTED FOUR TIMES DAILY Rx Instructions: USE DIRECTED FOUR TIMES DAILY insulin lispro [Humalog KwikPen Insulin] 100 unit/mL insulin pen See Rx Instructions subcut .COMPLEX Qty: 30 3RF Rx Instructions: Inject 30 units before breakfast, 35 units before lunch and 35 units before dinner subcutaneously; psyllium husk [Reguloid (psyllium husk)] 0.4 gram capsule 1.2 g PO BID 90 Days Qty: 540 0RF clopidogrel [Plavix] 75 mg tablet 75 mg PO DAILY Qty: 90 1RF gabapentin 100 mg capsule 200 mg PO BEDTIME aspirin 81 mg tablet,delayed release (DR/EC) 81 mg PO DAILY (DME) insulin syringe-needle U-100 1 mL 29 gauge x 1/2 syringe See Rx Instructions .ROUTE QID Qty: 10 Rx Instructions: As directed chlorthalidone 50 mg tablet 50 mg PO QAM (DME) blood sugar diagnostic Strip See Rx Instructions Not Applicable TID Qty: 10 Rx Instructions: As directed sennosides [senna] 8.6 mg tablet 17.2 mg PO DAILY PRN (Reason: constipation) (DME) FreeStyle Willy 2 Sensor Kit See Rx Instructions .Route Qty: 2 4RF Rx Instructions: As directed change every 14 days (DME) FreeStyle Willy 2 [place] Misc See Rx Instructions .Route Qty: 1 0RF Rx Instructions: As directed amlodipine 10 mg tablet 10 mg PO QAM cephalexin 500 mg tablet 500 mg PO BID Qty: 20 0RF verapamil 120 mg tablet extended release 120 mg PO QAM spironolactone 25 mg tablet 25 mg PO QAM tamsulosin 0.4 mg capsule 0.8 mg PO BEDTIME (DME) lancets [OneTouch UltraSoft 2 Lancet] 30 gauge misc See Rx Instructions .ROUTE TID Qty: 100 Rx Instructions: As directed (DME) lancets Misc See Rx Instructions .ROUTE TID Qty: 100 Rx Instructions: As directed pravastatin 40 mg tablet 40 mg PO BEDTIME Invokana 100 mg tablet 100 mg PO DAILY lactulose 10 gram/15 mL solution PO polyethylene glycol 3350 17 gram/dose powder 17 g PO DAILY cetirizine 10 mg tablet PO Ozempic 0.25 mg or 0.5 mg (2 mg/3 mL) pen injector subcut sennosides [senna] 8.6 mg tablet 17.2 mg PO DAILY 90 Days Qty: 180 0RF Referrals: Name,MD Aneesh [Primary Care Provider] - ( ultrasound in 1 week for the left lower extremity.) Print Language: Other
[2024-08-22 09:45] LABS: Basophils Absolute Auto 0.1 X10*3/uL (0.0-0.2); Eosinophils Absolute Auto 0.3 X10*3/uL (0.0-0.4); Hematocrit 41.6 % (42.0-52.0); Hemoglobin 14.2 g/dl (14.0-18.0); Imm Gran Abs Auto 0.06 X10*3/uL (0.00-0.03); Lymphocytes Absolute Auto 1.1 X10*3/uL (1.2-4.9); Lymphocytes Percent Auto 18.7 % (20-40); MANUAL DIFF FLAG SCAN; Mean Corpuscular HGB Conc 34.1 g/dl (31.0-36.0); Mean Corpuscular Hemoglobin 29.7 pg (27.0-33.0); Mean Platelet Volume 10.1 fL (9.4-12.4); Monocytes Absolute Auto 1.2 X10*3/uL (0.1-1.2); Monocytes Percent Auto 20.7 % (2-11); Neutrophils Absolute Auto 3.2 x10*3/uL (2.0-8.3); Neutrophils Percent Auto 53.6 % (45-73); Platelet Count 233 X10*3/uL (160-400); Red Blood Count 4.78 X10*6/uL (4.60-5.80); Red Cell Distribution Width 12.9 % (11.0-16.0); SCAN SMEAR FLAG 1
[2024-08-22 10:02] LABS: Alanine Aminotransferase 48 U/L (0-40); Albumin Level 3.5 g/dL (3.5-5.0); Alkaline Phosphatase 70 U/L (39-117); Anion Gap 11 (12-20); Aspartate Amino Transferase 33 U/L (5-37); Bilirubin Direct 0.1 mg/dL (0.0-0.5); Bilirubin Total 0.4 mg/dL (0.0-1.0); Blood Urea Nitrogen 21 mg/dL (9-16); Calcium 9.5 mg/dL (8.4-10.2); Carbon Dioxide 28 mmol/L (22-29); Chloride 101 mmol/L (96-108); Creatinine Clr Calc Pharmacy 58.5; Estimated Glomerular Filt Rate 59; Glucose Random 343 mg/dL (60-115); Potassium 3.6 mmol/L (3.3-5.1); Sodium 136 mmol/L (135-145); Total Protein 7.6 g/dL (6.5-8.0)
[2024-08-22 10:05] LABS: SLIDE REVIEW VERIFIED
[2024-08-22 10:06] LABS: B Type Natriuretic Peptide 24 pg/mL (<100)
[2024-08-22 10:10] LABS: Troponin-I High Sensitivity 3.2 ng/L (<3.5-35.0)
--- OUTSIDE RECORDS SUMMARY | 2024-08-22 10:19 | XMS_ITS | Clinical Summary ---
Author Organization [facility] Address [address] [place] [id number] Phone Care Team Providers Care [employer] Name Role Phone Name, Aneesh RIVERS Primary Care Provider [phone] Allergies Active Allergy Reactions Criticality Noted Date [...] Vaccine (#1) 2024 8, 05/17/2016, 05/11/2012 Insurance [facility] DUAL [employer] [place] [facility] [employer] Care Teams [employer] Relationship Specialty Start Date End Date Name, MD Aneesh [address] [place] [id number] PCP - General 06/23/20
--- OUTSIDE RECORDS SUMMARY | 2024-08-22 10:19 | XMS_ITS | Encounter Summary ---
Author Organization [employer] Address [address] [place] [address] Care Team Providers Care Glass Sander Name Role Phone Name, Aneesh RIVERS Primary Care Provider [phone] Encounter Details Date Type Department Care Team (Late st Contact Info) Description 08/22/2024 Orders Only [facility] External Provider, [facility] Social History Tobacco Use Types Packs/Day Years [...] Contact Info) Description 08/24/2024 9:00 AM EDT Telemedicine [facility] [address] [place] [address] Sandra Rasheed, PharmD [address] [place] [address] 09/26/2024 10:45 AM EDT Office Visit [facility] [address] [place] [address] Name, MD Aneesh [address] [place] [address] 11/30/2024 10:00 AM EDT Office Visit [facility] OPT[facility]ETRY [address] [place] [address] Nathanael, Jayne, OD [address] [place] [address] documented as of this encounter Procedures Procedure Name Priority Date/Time Associated Diagnosis Comments SLIDE REVIEW Routine 08/22/2024 9:38 AM EDT HIGH SENSITIVITY TROPONIN I Routine 08/22/2024 9:38 AM EDT CBC WITH AUTO DIFFERENTIAL Routine 08/22/2024 9:38 AM EDT B TYPE NATRIURETIC PEPTIDE (BNP) Routine 08/22/2024 9:38 AM EDT HEPATIC FUNCTION PANEL Routine 08/22/2024 9:38 AM EDT BASIC METABOLIC PANEL Routine 08/22/2024 9:38 AM EDT US VENOUS DUPLEX LE LT Routine 08/22/2024 9:[address] ABDOMEN PELVIS WO CONTRAST Routine 08/22/2024 8:58 AM EDT XR CHEST 1 VIEW Routine 08/22/2024 8:44 AM EDT documented in this encounter Results * High Sensitivity Troponin I (08/22/2024 9:38 AM EDT) [facility] TROPONIN I HIGH SENSITIVITY 3.2 <3.5 - 35.0 ng/L [facility] Comment:The [employer] high sens itivity Troponin-I results should beused in conjunction with other diagnostic information suchas ECG, clinical observations and information, and patientsymptoms to aid in the diagnosis of CA. 08/22/2024 9:38 AM EDT 08/22/2024 9:41 AM EDT Generic External Data Provider LAB BLOOD ORDERAB LES Final Result Performing Organization Address City/[facility]/ZIP Co de Phone Number [facility] [address] [place] [phone] * B Type Natriuretic Peptide (BNP) (08/22/2024 9:38 AM EDT) [facility] B Type Natriuretic Peptide 24 <100 pg/mL [facility] 08/22/2024 9:38 AM EDT 08/22/2024 9:41 AM EDT us Generic External Data Provider LAB BLOOD ORDERAB LES Final Result Performing Organization Address [facility]/ZIP Co de Phone Number [facility] [address] [place] [phone] * Slide Review (08/22/2024 9:38 AM EDT) Slide Review VERIFIED [facility] 08/22/2024 9:38 AM EDT 08/22/2024 9:41 AM EDT us Generic External Data Provider LAB BLOOD ORDERAB LES Final Result Performing Organization Address City/[facility]/ZIP Co de Phone Number [facility] [address] [place] [address] [phone] * (ABNORMAL) Basic Metabolic Panel (08/22/2024 9:38 AM EDT) Sodium 136 135 - 145 mmol/L [facility] Potassium 3.6 3.3 - 5.1 mmol/L [facility] Chloride 101 96 - 108 mmol/L [facility] Carbon Dioxide 28 22 - 29 mmol/L [facility] Anion Gap 11(L) 12 - 20 [facility] Urea Nitrogen (BUN) 21(H) 9 - 16 mg/dL [facility] Creatinine, Serum 1.21 0.5 - 1.4 mg/dL [facility] Creatinine Clr Calc Pharmacy 58.5 [facility] Comment:eGFR (calculated fro m the MDRD study equation) and eCrCl(calculated from the Cockcroft-Gault equation) are based ondifferent parameters and may not yield comparable results.If eCrCl result is absurd, please check patient'sheight/weight. Estimated Glomerular Filt Rate 59 [facility] Comment:Chronic Kidney Disea se: Estimated GFR < 60 mL/min/1.66a3Mixmyn Kidney Disease: Estimated GFR < 15 mL/min/1.73m2 Glucose 343(H) 60 - 115 mg/dL [facility] Calcium 9.5 8.4 - 10.2 mg/dL [facility] 08/22/2024 9:38 AM EDT 08/22/2024 9:41 AM EDT us Generic External Data Provider LAB BLOOD ORDERAB LES Final Result [facility] [address] [place] [phone] * (ABNORMAL) Hepatic Function Panel (08/22/2024 9:38 AM EDT) [facility] Bilirubin, Total 0.4 0.0 - 1.0 mg/dL [facility] Bilirubin, Direct 0.1 0.0 - 0.5 mg/dL [facility] Aspartate Amino Transferase 33 5 - 37 U/L [facility] Alanine Aminotransferase 48(H) 0 - 40 U/L [facility] Total Protein 7.6 6.5 - 8.0 g/dL [facility] Albumin Level 3.5 3.5 - 5.0 g/dL [facility] Alkaline Phosphatase 70 39 - 117 U/L [facility] 08/22/2024 9:38 AM EDT 08/22/2024 9:41 AM EDT Generic External Data Provider LAB BLOOD ORDERAB LES Final Result [facility] [address] [place] [phone] [phone] * (ABNORMAL) CBC auto differential (08/22/2024 9:38 AM EDT) [facility] White Blood Count 6.0 4.8 - 10.8 X10*3/uL [facility] Red Blood Count 4.78 4.60 - 5.80 X10*6/uL [facility] Hemoglobin 14.2 14.0 - 18.0 g/dl [facility] Hematocrit 41.6(L) 42.0 - 52.0 % [facility] Mean Corpuscular Volume 87.0 80.0 - 98.0 fL [facility] Mean Corpuscular Hemoglobin 29.7 27.0 - 33.0 pg [facility] Mean Corpuscular HGB Conc 34.1 31.0 - 36.0 g/dl [facility] Red Cell Distribution Width 12.9 11.0 - 16.0 % [facility] Platelet Count 233 160 - 400 X10*3/uL [facility] Mean Platelet Volume 10.1 9.4 - 12.4 fL [facility] Neutrophils Percent Auto 53.6 45 - 73 % [facility] Imm Gran Pct Auto 1.0(H) 0.0 - 0.4 % [facility] Lymphocytes Percent Auto 18.7(L) 20 - 40 % [facility] Monocytes Percent Auto 20.7(H) 2 - 11 % [facility] Eosinophils Percent Auto 5.0(H) 0 - 4 % [facility] Basophils Percent Auto 1.0 0 - 2 % [facility] NRBC Pct Auto 0.0 0.0 - 0.2 /100WBC [facility] Neutrophils Absolute Auto 3.2 2.0 - 8.3 x10*3/uL [facility] Imm Gran Abs Auto 0.06(H) 0.00 - 0.03 X10*3/uL [facility] Lymphocytes Absolute Auto 1.1(L) 1.2 - 4.9 X10*3/uL [facility] Monocytes Absolute Auto 1.2 0.1 - 1.2 X10*3/uL [facility] Eosinophils Absolute Auto 0.3 0.0 - 0.4 X10*3/uL [facility] Basophils Absolute Auto 0.1 0.0 - 0.2 X10*3/uL [facility] NRBC Abs Auto 0.000 0.0 - 0.012 X10*3/uL [facility] 08/22/2024 9:38 AM EDT 08/22/2024 9:41 AM EDT us Generic External Data Provider LAB BLOOD ORDERAB LES Edited Result - Final [facility] [address] [place] [address] [phone] * US VENOUS DUPLEX LE LT (08/22/2024 9:03 AM EDT) Anatomical Region Laterality Modality Abdomen Ultrasound 08/22/2024 9:03 AM EDT Narrative 08/22/2024 9:37 AM EDT ? [facility] ?[address] ?[place] [address] ? Ultrasound Report ? Signed ? Patient: Dain Mace,Josue ?MR#: ?? [id number] ? : 1950 ?Acct:[id number] ? Age/Sex: 74 / M ?ADM Date: 08/22/24 ? Loc: HO.ED ? Attending Dr: ? Ordering Physician: Alina Odom MD ?? Date of Service: 08/22/24 ?? Procedure(s): US venous duplex LE LT ?? Accession Number(s): [id number] ? cc: Alina Odom MD; Name,Aneesh RIVERS ? EXAMINATION: ??US LOWER EXTREMITY VEINS LIMITED FOLLOW UP LEFT ? HISTORY: leg pain ? COMPARISON: Comparison is made with the prior examination dated ?? 12/26/2023. ? TECHNIQUE: ??Duplex and color Doppler sonographic examination of the ?? deep venous system of the left lower extremity was performed. ? FINDINGS: ? The common femoral, superficial femoral, and popliteal veins are patent ?? demonstrating normal compressibility, spontaneous flow, and ?? augmentation. ??There is a normal color and spectral Doppler waveform ?? appearance of the visualized deep venous system above the knee. ??The ?? peroneal veins are patent. The posterior tibial veins are ?? noncompressible with no flow identified, consistent with thrombosis. ? US/US venous duplex LE LT ?? IMPRESSION: ?? No evidence of acute DVT in the left lower extremity above the knee. ?? 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 ?? Follow-up is recommended to evaluate for extension into the deep venous ?? system. ? Electronically signed by: ??Berlin Willoughby MD ??08/22/2024 09:34 AM EDT ?? RP ? Dictated By: ?Berlin Willoughby MD ? Signed By: ?<Electronically signed by Berlin Willoughby MD in OV> ?08/22/24933 ? DD/ 2 ? TD/TT: 08/22/24912 ? Staple Fiber Washer: ? Procedure Note Donjuanter, Image - 08/22/[address] [address] Ultrasound Report Signed Patient: Sylvia Dawson#: [id number] : 1950cct:[id number] Age/Sex: 74 / MADM Date: 08/22/24 Loc: HO.ED Attending Dr: Ordering Physician: Alina Odom MD Date of Service: 08/22/24 Procedure(s): US venous duplex LE LT Accession Number(s): [id number] cc: Alina Odom MD; Name,Aneesh RIVERS EXAMINATION: US LOWER EXTREMITY VEINS LIMITED FOLLOW UP LEFT HISTORY: leg pain COMPARISON: Comparison is made with the prior examination dated 12/26/2023. TECHNIQUE: Duplex and color Doppler sonographic examination of the deep venous system of the left lower extremity was performed. FINDINGS: The common femoral, superficial femoral, and popliteal veins are patent demonstrating normal compressibility, spontaneous flow, and augmentation. There is a normal color and spectral Doppler waveform appearance of the visualized deep venous system above the knee. The peroneal veins are patent. The posterior tibial veins are noncompressible with no flow identified, consistent with thrombosis. US/US venous duplex LE LT IMPRESSION: No evidence of acute DVT in the left lower extremity above the knee. 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 Follow-up is recommended to evaluate for extension into the deep venous system. Electronically signed by: Berlin Willoughby MD 08/22/2024 09:34 AM EDT Dictated By: Berlin Willoughby MD Signed By: <Electronically signed by Berlin Willoughby MD in OV> 08/22/24 0934 DD/ 2 TD/TT: 08/22/24912 Staple Fiber Washer: us [facility] External Provider IMG US PROCEDURES Final Result * CT Abdomen Pelvis w/o Contrast (08/22/2024 8:58 AM EDT) Anatomical Region Laterality Modality Body, Pelvis, Abdomen Computed T omography 08/22/2024 8:58 AM EDT Narrative 08/22/2024 9:14 AM EDT ? [facility] ?[address] ?[place], [place] [address] ? CT Scan Report ? Signed ? Patient: Josue Dawson ?MR#: ?? [id number] ? : 1950 ?Acct:[id number] ? Age/Sex: 74 / M ?ADM Date: 08/22/24 ? Loc: HO.ED ? Attending Dr: ? Ordering Physician: Alina Odom MD ?? Date of Service: 08/22/24 ?? Procedure(s): CT abdomen pelvis wo IV con ?? Accession Number(s): [id number] ? cc: Alina Odom MD; Name,Aneesh RIVERS ? Report Number: ?? [id number]: Total DLP = ??751.00 mGy-cm ?? EXAMINATION: ?? CT ABDOMEN AND PELVIS WITHOUT CONTRAST ? CLINICAL INFORMATION: ?? Back pain. ? COMPARISON: ?? January 27, 2022. ? TECHNIQUE: ?? Multidetector volumetric imaging was performed from the superior aspect ?? of the liver through the pubic symphysis. Sagittal and coronal ?? reformatted images were obtained on the technologist's workstation. ? This CT examination was performed using dose optimization techniques as ?? appropriate, variously including the following: ?? *Automated exposure control ?? *Adjustment of mA and/or kV according to patient size (this includes ?? techniques or standardized protocols for targeted exams where dose is ?? matched to indication/reason for exam; i.e. extremities or head) ?? *Use of iterative reconstruction technique. ?? DLP: 751 mGy centimeter. ? FINDINGS: ? Limited examination of the intra-abdominal organs and vascular ?? structures due to lack of IV contrast. ? LUNG BASES: Patchy pulmonary groundglass. Questionable 2 mm pulmonary ?? nodules right middle lobe. ? LIVER, GALLBLADDER, AND BILIARY TREE: ? Liver measures 20 cm no intrahepatic biliary ductal dilatation. Status ?? post cholecystectomy. Common bile duct measures 4 mm. ? PANCREAS: No peripancreatic collections. No main pancreatic ductal ?? dilatation. ? SPLEEN: 10 cm. ? ADRENAL GLANDS: No nodular lesions. ? KIDNEYS AND URETERS: ?? No hydronephrosis. ?? No nephrolithiasis. ?? 2 cm exophytic hypodensity in the posterior midportion right kidney. ? BLADDER: Fluid-filled with questionable wall thickening in the anterior ?? wall. ? GASTROINTESTINAL TRACT: ?? Abundant stool, large intestine. ?? No intestinal obstruction pattern. ?? No pneumatosis intestinalis. ?? No pneumoperitoneum. ?? No ascites. ?? Postsurgical changes in the medial wall of the cecum likely ?? appendectomy. ? ABDOMINAL WALL: Diastases abdominal rectus muscles and small ?? fat-containing umbilical hernia. Protrusion of the intra-abdominal ?? organs in the periumbilical region. ? LYMPH NODES: No lymphadenopathy, mesenteric or retroperitoneal. ? VASCULAR: Calcified plaques in the abdominal aorta mesenteric arteries, ?? splenic artery and iliac arteries. No aneurysm in the abdominal aorta. ?? Calcified plaques in the coronary arteries and the descending thoracic ?? aorta. ? PELVIC VISCERA: 6 cm heterogeneous enlarged prostate gland. ? OSSEOUS STRUCTURES: Multilevel thoracolumbar spondylosis. Degenerative ?? changes in the hips. No acute fracture or gross listhesis. ? Gynecomastia, bilaterally. ? CT/CT abdomen pelvis wo IV con ?? IMPRESSION: ?? Anterior wall thickening of the bladder. ?? Enlarged prostate gland. Benign prostate hyperplasia versus malignancy ?? should be considered. ?? Hepatomegaly. ?? 2 cm cyst, right kidney. ?? Small fat-containing umbilical hernia and diastases abdominal rectus ?? muscles. ?? Atherosclerosis disease and coronary artery disease. ? Fleischner guidelines were followed. ? Electronically signed by: ??Cheo Galindo MD ??08/22/2024 09:10 AM ?? EDT RP ? Dictated By: ?Cheo Looney MD ? Signed By: ?<Electronically signed by Cheo Landon MD in OV> ? 08/22/24 0910 ? DD/ 0858 ? TD/TT: 08/22/24 0858 ? Staple Fiber Washer: ? Procedure Note Donotuseinterpreter, Image - 08/22/[address] [address] [address] Scan Report Signed Patient: Josue DawsonMR#: [id number] : 1950cct:[id number] Age/Sex: 74 / MADM Date: 08/22/24 Loc: HO.ED Attending Dr: Ordering Physician: Alina Odom MD Date of Service: 08/22/24 Procedure(s): CT abdomen pelvis wo IV con Accession Number(s): [id number] cc: Alina Odom MD; Name,Aneesh RIVERS Report Number: [id number]: Total DLP = 751.00 mGy-cm EXAMINATION: CT ABDOMEN AND PELVIS WITHOUT CONTRAST CLINICAL INFORMATION: Back pain. COMPARISON: January 27, 2022. TECHNIQUE: Multidetector volumetric imaging was performed from the superior aspect of the liver through the pubic symphysis. Sagittal and coronal reformatted images were obtained on the technologist's workstation. This CT examination was performed using dose optimization techniques as appropriate, variously including the following: *Automated exposure control *Adjustment of mA and/or kV according to patient size (this includes techniques or standardized protocols for targeted exams where dose is matched to indication/reason for exam; i.e. extremities or head) *Use of iterative reconstruction technique. DLP: 751 mGy centimeter. FINDINGS: Limited examination of the intra-abdominal organs and vascular structures due to lack of IV contrast. LUNG BASES: Patchy pulmonary groundglass. Questionable 2 mm pulmonary nodules right middle lobe. LIVER, GALLBLADDER, AND BILIARY TREE: Liver measures 20 cm no intrahepatic biliary ductal dilatation. Status post cholecystectomy. Common bile duct measures 4 mm. PANCREAS: No peripancreatic collections. No main pancreatic ductal dilatation. SPLEEN: 10 cm. ADRENAL GLANDS: No nodular lesions. KIDNEYS AND URETERS: No hydronephrosis. No nephrolithiasis. 2 cm exophytic hypodensity in the posterior midportion right kidney. BLADDER: Fluid-filled with questionable wall thickening in the anterior wall. GASTROINTESTINAL TRACT: Abundant stool, large intestine. No intestinal obstruction pattern. No pneumatosis intestinalis. No pneumoperitoneum. No ascites. Postsurgical changes in the medial wall of the cecum likely appendectomy. ABDOMINAL WALL: Diastases abdominal rectus muscles and small fat-containing umbilical hernia. Protrusion of the intra-abdominal organs in the periumbilical region. LYMPH NODES: No lymphadenopathy, mesenteric or retroperitoneal. VASCULAR: Calcified plaques in the abdominal aorta mesenteric arteries, splenic artery and iliac arteries. No aneurysm in the abdominal aorta. Calcified plaques in the coronary arteries and the descending thoracic aorta. PELVIC VISCERA: 6 cm heterogeneous enlarged prostate gland. OSSEOUS STRUCTURES: Multilevel thoracolumbar spondylosis. Degenerative changes in the hips. No acute fracture or gross listhesis. Gynecomastia, bilaterally. CT/CT abdomen pelvis wo IV con IMPRESSION: Anterior wall thickening of the bladder. Enlarged prostate gland. Benign prostate hyperplasia versus malignancy should be considered. Hepatomegaly. 2 cm cyst, right kidney. Small fat-containing umbilical hernia and diastases abdominal rectus muscles. Atherosclerosis disease and coronary artery disease. Fleischner guidelines were followed. Electronically signed by: Cheo Galindo MD 08/22/2024 09:10 AM EDT Dictated By: Cheo Looney MD Signed By: <Electronically signed by Cheo Landon MDin OV> 08/22/24 0910 DD/ 0858 TD/TT: 08/22/24 0858 Staple Fiber Washer: [facility] External Provider IMG CT PROCEDURES Final Result * XR Chest 1 View (08/22/2024 8:44 AM EDT) Anatomical Region Laterality Modality Chest Radiographic Trang ging 08/22/2024 8:44 AM EDT Narrative 08/22/2024 9:24 AM EDT ? [facility] ?[address] ?[place] [address] ?XRay Report ? Signed ? Patient: Gautamvalentino Mace,Josue ?MR#: ?? [id number] ? : 1950 ?Acct:[id number] ? Age/Sex: 74 / M ?ADM Date: 08/22/24 ? Loc: HO.ED ? Attending Dr: ? Ordering Physician: Alina Odom MD ?? Date of Service: 08/22/24 ?? Procedure(s): XR chest 1V ?? Accession Number(s): [id number] ? cc: Alina Odom MD; Name,Aneesh RIVERS ? EXAMINATION: ?? XR CHEST ? CLINICAL INFORMATION: ?? cp ? COMPARISON: ?? None available. ? TECHNIQUE: ?? Frontal view of the chest was obtained. ? FINDINGS: ?? Borderline cardiac enlargement. Hilar and mediastinal contours are ?? normal. Aortic mural calcifications. ? The lungs are clear bilaterally. No pneumothorax or effusion. ? No focal osseous or soft tissue abnormality. ? XR/XR chest 1V ?? IMPRESSION: ?? No active pulmonary disease. ? Electronically signed by: ??Luiz Manzo MD ??08/22/2024 09:20 AM EDT RP ? Dictated By: ?Luiz Manzo MD ? Signed By: ?<Electronically signed by Luiz Manzo MD in OV> ?08/22/24 0920 ? DD/ ? TD/TT: 08/22/24900 ? Staple Fiber Washer: ? Procedure Note Del, Hannah - 08/22/[address] [address] XRay Report Signed Patient: Josue Dawson#: [id number] : 1Acct:[id number] Age/Sex: 74 / MADM Date: 08/22/24 Loc: HO.ED Attending Dr: Ordering Physician: Alina Odom MD Date of Service: 08/22/24 Procedure(s): XR chest 1V Accession Number(s): [id number] cc: Alina Odom MD; Name,Aneesh RIVERS EXAMINATION: XR CHEST CLINICAL INFORMATION: cp COMPARISON: None available. TECHNIQUE: Frontal view of the chest was obtained. FINDINGS: Borderline cardiac enlargement. Hilar and mediastinal contours are normal. Aortic mural calcifications. The lungs are clear bilaterally. No pneumothorax or effusion. No focal osseous or soft tissue abnormality. XR/XR chest 1V IMPRESSION: No active pulmonary disease. Electronically signed by: Luiz Manzo MD 08/22/2024 09:20 AM EDT RP Dictated By: Luiz Manzo MD Signed By: <Electronically signed by Luiz Manzo MD in OV> 08/22/24919 DD/ 3 TD/TT: 08/22/24 09 Staple Fiber Washer: [facility] External Provider IMG XR PROCEDURES Final Result documented in this encounter Visit Diagnoses Not on filedocumented in this encounter Additional Health Concerns Assessment Noted Time PHQ-9 Depression Total Score: 4 08/23/19 24 9:44 AM EDT documented as of this encounter Care Teams Glass Sander Relationship Specialty Start Date End Date Name, MD Aneesh [address] [place] [address] PCP - General Family Medicine 02/14/18 documented as of this encounter
--- OUTSIDE RECORDS SUMMARY | 2024-08-22 10:19 | XMS_ITS | Encounter Summary ---
Author Organization [employer] Address [address] [place] [address] Care Team Providers Care National Stormwater Leader Name Role Phone Name, Aneesh RIVERS Primary Care Provider [phone] Reason for Visit * Reason Comments Med Refill Encounter Details Date Type Department Care Team ([facility] st Contact Info) Description 01/12/2024 Refill [facility] MED & PEDS [address] [place], [place] [phone] Name, MD Aneesh [address] [place] [address] Chronic low back pain, unspecified back pain [...] Info) Description 08/24/2024 9:00 AM EDT Telemedicine [facility] MEDICINE [address] [place] [phone] Sandra Rasheed, PharmD [address] [place] [address] 09/26/2024 10:45 AM EDT Office Visit [facility] MEDICINE [address] [place] [phone] NameAneesh MD [address] [place] [address] 11/30/2024 10:00 AM EDT Office Visit [facility] OPTOMETRY [address] [place] [address] Nathanael, Jayne, OD [address] [place] [address] documented as of this encounter Visit Diagnoses Diagnosis Chronic low back pain, unspecified back pain laterality, unspecified whether sciatica present documented in this encounter Additional Health Concerns Assessment Noted Time PHQ-9 Depression Total Score: 4 08/23/19 24 9:44 AM EDT documented as of this encounter Care Teams National Stormwater Leader Relationship Specialty Start Date End Date Aneesh Oliveira MD [address] [place] [phone] PCP - General Family Medicine 02/14/18 documented as of this encounter
--- OUTSIDE RECORDS SUMMARY | 2024-08-22 10:19 | XMS_ITS | Encounter Summary ---
Author Organization [employer] Address [address] [facility] [address] [place] [address] Care Team Providers Care Shell Molding Roller Blast Operator Name Role Phone Name, Aneesh RIVERS Primary Care Provider [phone] Encounter Details Date Type Department Care Team ([facility] st Contact Info) Description 03/23/2023 Orders Only [facility] CH[facility] MED & PEDS [address] [place] [address] Amber Brantley LPN Social History Tobacco Use [...] Info) Description 08/24/2024 9:00 AM EDT Telemedicine [facility] MEDICINE [address] [place] [address] Sandra Rasheed, PharmD [address] [place] [address] 09/26/2024 10:45 AM EDT Office Visit [facility] MEDICINE [address] [place] [phone] NameAneesh MD [address] [place] [address] 11/30/2024 10:00 AM EDT Office Visit [facility] OPTOMETRY [address] [place] [address] Nathanael, Jayne, OD [address] [place] [address] documented as of this encounter Visit Diagnoses Not on filedocumented in this encounter Care Teams Shell Molding Roller Blast Operator Relationship Specialty Start Date End Date Aneesh Oliveira MD [address] [place] [phone] PCP - General Family Medicine 02/14/18 documented as of this encounter
[2024-08-22 10:20] LABS: Influenza A PCR NEGATIVE (Negative); Influenza B PCR NEGATIVE (Negative); Resp Syncy Virus RNA Qual PCR NEGATIVE (Negative); SARS COV2 PCR INHOUSE POSITIVE (Negative)
--- OUTSIDE RECORDS SUMMARY | 2024-08-22 10:20 | XMS_ITS | Encounter Summary ---
Author Organization [employer] Address [address] [facility] [address] [place] [address] Care Team Providers Care Magisterial District Judge Name Role Phone Name, Aneesh RIVERS Primary Care Provider [phone] Reason for Visit * Reason Onset Date Comments Appointment Request 07/17/2024 Encounter Details Date Type Department Care Team (Late st Contact Info) Description 07/17/2024 Telephone [facility] [address] [place], [place] [phone] Name, MD Aneesh [address] [place] [address] Appointment Request Social History Tobacco Use Types [...] r/s apt for 07/17/24. Contact pt at [phone] documented in this encounter Plan of Treatment Upcoming Encounters Date Type Department Care Team (Late st Contact Info) Description 08/24/2024 9:00 AM EDT Telemedicine [facility] [address] [place] [phone] Sandra Rasheed, PharmD [address] [place] [address] 09/26/2024 10:45 AM EDT Office Visit [facility] [address] [place] [address] Name, MD Aneesh [address] [place] [address] 11/30/2024 10:00 AM EDT Office Visit [facility] [address] [place] [phone] Nathanael, Jayne, OD [address] [place] [address] documented as of this encounter Visit Diagnoses Not on filedocumented in this encounter Additional Health Concerns Assessment Noted Time PHQ-9 Depression Total Score: 4 08/23/19 24 9:44 AM EDT documented as of this encounter Care Teams Magisterial District Judge Relationship Specialty Start Date End Date Name, MD Aneesh [address] [place] [address] PCP - General Family Medicine 02/14/18 documented as of this encounter
--- OUTSIDE RECORDS SUMMARY | 2024-08-22 10:20 | XMS_ITS | Encounter Summary ---
Author Organization [employer] Address [address] [facility] [address] [place] [address] Care Team Providers Care Motor Builder Assembler Name Role Phone Name, Aneesh RIVERS Primary Care Provider [phone] Reason for Visit * Reason Comments Med Refill Encounter Details Date Type Department Care Team ([facility] st Contact Info) Description 08/13/2024 Refill [facility] [address] [place], [place] [phone] [facility] [address] [place] [address] Chronic low back pain, unspecified back pain [...] Watts LPN - 08/14/2024 10:02 AM EST SYSTEMS PROGRAMMER ANALYST checked on 08/14/24. documented in this encounter Plan of Treatment Upcoming Encounters Date Type Department Care Team (Late st Contact Info) Description 08/24/2024 9:00 AM EDT Telemedicine [facility] [address] [place] [address] PuiaSandra, PharmD [address] [place] [address] 09/26/2024 10:45 AM EDT Office Visit [facility] [address] [place] [address] Name, MD Aneesh [address] [place] [address] 11/30/2024 10:00 AM EDT Office Visit [facility] [address] [place] [phone] Jayne Huffman, OD [address] [place] [address] documented as of this encounter Visit Diagnoses Diagnosis Chronic low back pain, unspecified back pain laterality, unspecified whether sciatica present documented in this encounter Additional Health Concerns Assessment Noted Time PHQ-9 Depression Total Score: 4 08/23/19 24 9:44 AM EDT documented as of this encounter Care Teams Motor Builder Assembler Relationship Specialty Start Date End Date Name, MD Aneesh [address] [place] [address] PCP - General Family Medicine 02/14/18 documented as of this encounter
--- OUTSIDE RECORDS SUMMARY | 2024-08-22 10:20 | XMS_ITS | Encounter Summary ---
Author Organization [employer] Address [address] [facility] 7t [place] [address] Care Team Providers Care Configuration Management Architect Name Role Phone Name, Aneesh RIVERS Primary Care Provider [phone] Reason for Visit * Reason Onset Date Comments FYI 08/23/2023 Encounter Details Date Type Department Care Team (Late st Contact Info) Description 08/23/2023 Telephone [facility] [address] [place], [place] [phone] Name, MD Aneesh [address] [place] [address] FYI Social History Tobacco Use Types Packs/Day [...] 3:03 PM EDT Tc from Leidy with [facility] stating pt no longer wants to continue care with them. Leidy stated pt no showed 3 appts in a row and when asked about it pt said it was due to to transportation. Pt claims they are irresponsible and that they don't communicate. Pt stated he will continue care with PCP. If any questions please contact Leidy at [phone]. documented in this encounter Plan of Treatment Upcoming Encounters Date Type Department Care Team ([facility] st Contact Info) Description 08/24/2024 9:00 AM EDT Telemedicine [facility] [address] [place] [address] Sandra Rasheed, PharmD [address] [place] [address] 09/26/2024 10:45 AM EDT Office Visit [facility] [address] [place] [address] Name, MD Aneesh [address] [place] [address] 11/30/2024 10:00 AM EDT Office Visit [facility] [address] [place] [address] Jayne Huffman, BRYANT [address] [place] [address] documented as of this encounter Visit Diagnoses Not on filedocumented in this encounter Additional Health Concerns Assessment Noted Time PHQ-9 Depression Total Score: 4 08/23/19 24 9:44 AM EDT documented as of this encounter Care Teams Configuration Management Architect Relationship Specialty Start Date End Date Name, MD Aneesh [address] [place] [address] PCP - General Family Medicine 02/14/18 documented as of this encounter
--- OUTSIDE RECORDS SUMMARY | 2024-08-22 10:20 | XMS_ITS | Encounter Summary ---
Author Organization [employer] Address [address] [facility] [address] [place] [address] Care Team Providers Care Recovery Agent Name Role Phone Name, Aneesh RIVERS Primary Care Provider [phone] Reason for Visit * Reason Comments Med Refill Encounter Details Date Type Department Care Team ([facility] st Contact Info) Description 05/02/2024 Refill [facility] [address] [place], [place] [phone] Name, MD Aneesh [address] [place] [address] Chronic constipation Social History Tobacco Use Types [...] Info) Description 08/24/2024 9:00 AM EDT Telemedicine [facility] [address] [place] [phone] Sandra Rasheed, PharmD [address] [place] [address] 09/26/2024 10:45 AM EDT Office Visit [facility] [address] [place] [address] Aneesh Oliveira MD [address] [place] [address] 11/30/2024 10:00 AM EDT Office Visit [facility] [address] [place] [address] Nathanael, Jayne, OD [address] [place] [address] documented as of this encounter Visit Diagnoses Diagnosis Chronic constipation Unspecified constipation documented in this encounter Additional Health Concerns Assessment Noted Time PHQ-9 Depression Total Score: 4 08/23/19 24 9:44 AM EDT documented as of this encounter Care Teams Recovery Agent Relationship Specialty Start Date End Date Aneesh Oliveira MD [address] [place] [address] PCP - General Family Medicine 02/14/18 documented as of this encounter
--- OUTSIDE RECORDS SUMMARY | 2024-08-22 10:20 | XMS_ITS | Clinical Summary ---
Author Organization [employer] Address [address] [place] [address] 7[address] [place] [address] Care Team Providers Care Rock Picker Name Role Phone Name, Aneesh RIVERS Primary Care Provider [phone] Allergies Active Allergy Reactions Criticality Noted Date [...] oz. water, juice, soda, coffee or tea Active UltiGuard SafePack Pen Needle 32G X 4 MM misc USE DIRECTED FOUR TIMES DAILY 024 Active amLODIPine (Norvasc) 10 MG tablet Take 1 tablet (10 mg) by mouth in the morning. 30 tablet Active metFORMIN (Glucophage) 1000 MG tabletIndication s:Type 2 diabetes mellitus with other specified complication, without long-term current use of insulin (CMS/HCC) Take 1 tablet (1,000 mg) by mouth before breakfast and before evening meal. 60 tablet Active sodium chloride (Natrona) 0.65 % nasal sprayIndications :Postnasal drip Administer 1 spray into each nostril if needed for congestion. 15 mL 11 2024 Active Aspirin Adult Low Strength 81 [...] complication, without long-term current use of insulin ([facility]) TEST BLOOD SUGAR THREE TIMES DAILY 100 [...] by mouth before breakfast. 30 tablet 11 2024 Active Alcohol Swabs (Easy Touch Alcohol [...] complication, without long-term current use of insulin ([facility]) INJECT 80 UNITS SUBCUTANEOUSLY AT BEDTIME 6 mL 3 025 Active HumaLOG KWIKPEN 100 UNIT/ML injectionIndicat ions:Type 2 diabetes mellitus with hyperglycemia (CMS/[facility]),custodial (current) use of insulin ([facility]) INJECT 40 UNITS SUBCUTANEOUSLY BEFORE BREAKFAST, 35 [...] Encounters Date Type Department Care Team Description 08/22/2024 Orders Only [facility] External Provider, [facility] 08/13/2024 Refill [facility] [address] [place], [place] [phone] [facility] Chronic low back pain, unspecified back pain laterality, unspecified whether sciatica present 07/17/2024 Telephone [facility] [address] [place] [address] NameAneesh MD Appointment Request 07/10/2024 Refill [facility] [address] [place] [address] Aneesh Oliveira MD Type 2 diabetes mellitus with hyperglycemia ([facility]); custodial (current) use of insulin ([facility]) 07/06/2024 Refill [facility] [address] [place] [address] Aneesh Oliveira MD Type 2 diabetes mellitus with other specified complication, without long-term current use of insulin ([facility]) 06/29/2024 Refill [facility] [address] [place] [address] Aneesh Oliveira MD Chronic constipation 06/25/2024 Refill [facility] [address] [place] [address] Aneesh Oliveira MD Hypertension, unspecified type; Prostatism; Type 2 diabetes mellitus with hyperglycemia ([facility]); custodial (current) use of insulin ([facility]) 06/24/2024 Refill [facility] [address] [place] [address] Aneesh Oliveira MD Chronic low back pain, unspecified back pain laterality, unspecified whether sciatica present; Hypertension, unspecified type; Prostatism 06/01/2024 3:30 PM EST Office Visit [facility] [address] [place] [address] Nathanael, Jayne, OD Both eyes affected by mild nonproliferative diabetic retinopathy with macular edema, associated with type 2 diabetes mellitus ([facility]) (Primary Dx); Epiretinal membrane, both eyes; Left retinal defect; Choroidal nevus of right eye; Raised intraocular pressure of both eyes; Pseudophakia of both eyes; Presbyopia of both eyes 06/01/2024 Travel 05/28/2024 Refill [facility] [address] [place] [address] Aneesh Oliveira MD Chronic low back pain, [...] Info) Description 08/24/2024 9:00 AM EDT Telemedicine [facility] [address] [place] [address] Sandra Rasheed, PharmD [address] [place] [address] 09/26/2024 10:45 AM EDT Office Visit [facility] [address] [place] [address] Name, MD Aneesh [address] [place] [address] 11/30/2024 10:00 AM EDT Office Visit [facility] [address] [place] [address] Nathanael, Jayne, OD [address] [place] [address] Health Maintenance Due Date Last Done Comments [...] Procedure Name Priority Date/Time Associated Diagnosis Comments HIGH SENSITIVITY TROPONIN I Routine 08/22/2024 9:38 AM EDT B TYPE NATRIURETIC PEPTIDE (BNP) Routine 08/22/2024 9:38 AM EDT SLIDE REVIEW Routine 08/22/2024 9:38 AM EDT BASIC METABOLIC PANEL Routine 08/22/2024 9:38 AM EDT HEPATIC FUNCTION PANEL Routine 08/22/2024 9:38 AM EDT CBC WITH AUTO DIFFERENTIAL Routine 08/22/2024 9:38 AM EDT US VENOUS DUPLEX LE LT Routine 08/22/2024 9:[address] ABDOMEN PELVIS WO CONTRAST Routine 08/22/2024 8:58 AM EDT XR CHEST 1 VIEW Routine 08/22/2024 8:44 AM EDT VASC US LOWER EXTREMITY ARTERIAL DUPLEX BILATERAL [...] complication, without long-term current use of insulin ([facility]) HM COLONOSCOPY Routine 02/10/2023 PANORAMIC RADIOGRAPHIC IMAGE Routine 08/26/2021 12:00 AM EDT GLEN HISTORICAL HEPATITIS C AB W/REFL TO HCV RNA, QN, PCR Routine 11/25/2020 10:49 AM EDT INTRAORAL - COMPLETE SERIES OF RADIOGRAPHIC IMAGES Routine 04/03/2009 12:00 AM EDT from Last 3 Months or Most Recently Relevant to Health Maintenance Results * Slide Review (08/22/2024 9:38 AM EDT) Slide Review VERIFIED [facility] 08/22/2024 9:38 AM EDT 08/22/2024 9:41 AM EDT Generic External Data Provider LAB BLOOD ORDERAB LES Final Result Performing Organization Address [facility]/ZIP Co de Phone Number [facility] [address] [place] [phone] * High Sensitivity Troponin I (08/22/2024 9:38 AM EDT) Pathologist [facility] TROPONIN I HIGH SENSITIVITY 3.2 <3.5 - 35.0 ng/L [facility] Comment:The [employer] high sens itivity Troponin-I results should beused in conjunction with other diagnostic information suchas ECG, clinical observations and information, and patientsymptoms to aid in the diagnosis of [place]. 08/22/2024 9:38 AM EDT 08/22/2024 9:41 AM EDT us Generic External Data Provider LAB BLOOD ORDERAB LES Final Result Performing Organization Address City/[facility]/ZIP Co de Phone Number [facility] [address] [place] [phone] * (ABNORMAL) CBC auto differential (08/22/2024 9:38 AM EDT) White Blood Count 6.0 4.8 - 10.8 X10*3/uL [facility] Red Blood Count 4.78 4.60 - 5.80 X10*6/uL [facility] Hemoglobin 14.2 14.0 - 18.0 g/dl [facility] Hematocrit 41.6(L) 42.0 - 52.0 % [facility] Mean Corpuscular Volume 87.0 80.0 - 98.0 fL [facility] Mean Corpuscular Hemoglobin 29.7 27.0 - 33.0 pg [facility] Mean Corpuscular HGB Conc 34.1 31.0 - 36.0 g/dl [facility] Red Cell Distribution Width 12.9 11.0 - 16.0 % [facility] Platelet Count 233 160 - 400 X10*3/uL [facility] Mean Platelet Volume 10.1 9.4 - 12.4 fL [facility] Neutrophils Percent Auto 53.6 45 - 73 % [facility] Imm Gran Pct Auto 1.0(H) 0.0 - 0.4 % [facility] Lymphocytes Percent Auto 18.7(L) 20 - 40 % [facility] Monocytes Percent Auto 20.7(H) 2 - 11 % [facility] Eosinophils Percent Auto 5.0(H) 0 - 4 % [facility] Basophils Percent Auto 1.0 0 - 2 % [facility] NRBC Pct Auto 0.0 0.0 - 0.2 /100WBC [facility] Neutrophils Absolute Auto 3.2 2.0 - 8.3 x10*3/uL [facility] Imm Gran Abs Auto 0.06(H) 0.00 - 0.03 X10*3/uL [facility] Lymphocytes Absolute Auto 1.1(L) 1.2 - 4.9 X10*3/uL [facility] Monocytes Absolute Auto 1.2 0.1 - 1.2 X10*3/uL [facility] Eosinophils Absolute Auto 0.3 0.0 - 0.4 X10*3/uL [facility] Basophils Absolute Auto 0.1 0.0 - 0.2 X10*3/uL [facility] NRBC Abs Auto 0.000 0.0 - 0.012 X10*3/uL [facility] 08/22/2024 9:38 AM EDT 08/22/2024 9:41 AM EDT us Generic External Data Provider LAB BLOOD ORDERAB LES Edited Result - Final Performing Organization Address [facility]/ZIP Co de Phone Number [facility] [address] [place] [phone] * B Type Natriuretic Peptide (BNP) (08/22/2024 9:38 AM EDT) Pathologist [facility] B Type Natriuretic Peptide 24 <100 pg/mL [facility] 08/22/2024 9:38 AM EDT 08/22/2024 9:41 AM EDT us Generic External Data Provider LAB BLOOD ORDERAB LES Final Result Performing Organization Address [facility] Co de Phone Number [facility] [address] [place] [phone] * (ABNORMAL) Hepatic Function Panel (08/22/2024 9:38 AM EDT) Bilirubin, Total 0.4 0.0 - 1.0 mg/dL [facility] Bilirubin, Direct 0.1 0.0 - 0.5 mg/dL [facility] Aspartate Amino Transferase 33 5 - 37 U/L [facility] Alanine Aminotransferase 48(H) 0 - 40 U/L [facility] Total Protein 7.6 6.5 - 8.0 g/dL [facility] Albumin Level 3.5 3.5 - 5.0 g/dL [facility] Alkaline Phosphatase 70 39 - 117 U/L [facility] 08/22/2024 9:38 AM EDT 08/22/2024 9:41 AM EDT us Generic External Data Provider LAB BLOOD ORDERAB LES Final Result Performing Organization Address City/[facility]/ZIP Co de Phone Number [facility] [address] [place] [phone] [phone] * (ABNORMAL) Basic Metabolic Panel (08/22/2024 9:38 AM EDT) Only the most recent of2 resultswithin the time period is included. Sodium 136 135 - 145 mmol/L [facility] Potassium 3.6 3.3 - 5.1 mmol/L [facility] Chloride 101 96 - 108 mmol/L [facility] Carbon Dioxide 28 22 - 29 mmol/L [facility] Anion Gap 11(L) 12 - 20 [facility] Urea Nitrogen (BUN) 21(H) 9 - 16 mg/dL [facility] Creatinine, Serum 1.21 0.5 - 1.4 mg/dL [facility] Creatinine Clr Calc Pharmacy 58.5 [facility] Comment:eGFR (calculated fro m the MDRD study equation) and eCrCl(calculated from the Cockcroft-Gault equation) are based ondifferent parameters and may not yield comparable results.If eCrCl result is absurd, please check patient'sheight/weight. Estimated Glomerular Filt Rate 59 [facility] Comment:Chronic Kidney Disea se: Estimated GFR < 60 mL/min/1.96s5Ntzkyo Kidney Disease: Estimated GFR < 15 mL/min/1.73m2 Glucose 343(H) 60 - 115 mg/dL [facility] Calcium 9.5 8.4 - 10.2 mg/dL [facility] 08/22/2024 9:38 AM EDT 08/22/2024 9:41 AM EDT us Generic External Data Provider LAB BLOOD ORDERAB LES Final Result Performing Organization Address [facility] Co de Phone Number [facility] [address] [place] [address] [phone] * US VENOUS DUPLEX LE LT (08/22/2024 9:03 AM EDT) Anatomical Region Laterality Modality Abdomen Ultrasound 08/22/2024 9:03 AM EDT Narrative 08/22/2024 9:37 AM EDT ? [facility] ?[address] ?[place] [address] ? Ultrasound Report ? Signed ? Patient: Dain Mace,Josue ?MR#: ?? [id number] ? : 1950 ?Acct:[id number] ? Age/Sex: 74 / M ?ADM Date: 08/22/24 ? Loc: HO.ED ? Attending Dr: ? Ordering Physician: Alina Odom MD ?? Date of Service: 08/22/24 ?? Procedure(s): US venous duplex LE LT ?? Accession Number(s): [id number] ? cc: Alina Odom MD; Name,Aneesh RIVERS [...] no flow identified, consistent with thrombosis. ? US/ venous duplex LE LT ?? IMPRESSION: ?? [...] ? DD/ 2 ? TD/TT: 08/22/24912 ? Transportation Aide: ? Procedure Note Donotuseinterpreter, Image - 08/22/[address] [address] Ultrasound Report Signed Patient: Sylvia Dawson#: [id number] : 1950cct:[id number] Age/Sex: 74 / MADM Date: 08/22/24 Loc: HO.ED Attending Dr: Ordering Physician: Alina Odom MD Date of Service: 08/22/24 Procedure(s): US venous duplex LE LT Accession Number(s): [id number] cc: Alina Odom MD; Name,Aneesh RIVERS EXAMINATION: [...] OV> 08/22/24 0934 DD/ 2 TD/TT: 08/22/24912 Transportation Aide: us [facility] External Provider IMG US PROCEDURES Final Result * CT Abdomen Pelvis w/o Contrast (08/22/2024 8:58 AM EDT) Anatomical Region Laterality Modality Body, Pelvis, Abdomen Computed T omography 08/22/2024 8:58 AM EDT Narrative 08/22/2024 9:14 AM EDT ? [facility] ?[address] ?[place] [address] ? CT Scan Report ? Signed ? Patient: Josue Dawson ?MR#: ?? [id number] ? : 1950 ?Acct:[id number] ? Age/Sex: 74 / M ?ADM Date: 08/22/24 ? Loc: HO.ED ? Attending Dr: ? Ordering Physician: Alina Odom MD ?? Date of Service: 08/22/24 ?? Procedure(s): CT abdomen pelvis wo IV con ?? Accession Number(s): [id number] ? cc: Alina Odom MD; Name,Aneesh RIVERS ? Report Number: ?? [id number]: Total DLP = ??751.00 mGy-cm ?? EXAMINATION: [...] Cheo Landon MD in OV> ? 08/22/24 09 ? DD/ 0858 ? TD/TT: 08/22/24 0858 ? Transportation Aide: ? Procedure Note Donotuseinterpreter, Image - 08/22/[address] [address] [address] Scan Report Signed Patient: Josue DawsonMR#: [id number] : 1950cct:[id number] Age/Sex: 74 / MADM Date: 08/22/24 Loc: HO.ED Attending Dr: Ordering Physician: Alina Odom MD Date of Service: 08/22/24 Procedure(s): CT abdomen pelvis wo IV con Accession Number(s): [id number] cc: Alina Odom MD; Name,Aneesh RIVERS Report Number: [id number]: Total DLP = 751.00 mGy-cm EXAMINATION: CT [...] 08/22/24 0910 DD/ 0858 TD/TT: 08/22/24 0858 Transportation Aide: [facility] External Provider IMG CT PROCEDURES Final Result * XR Chest 1 View (08/22/2024 8:44 AM EDT) Anatomical Region Laterality Modality Chest Radiographic Trang ging 08/22/2024 8:44 AM EDT Narrative 08/22/2024 9:24 AM EDT ? [facility] ?[address] ?[place] [address] ?XRay Report ? Signed ? Patient: Dain Mace,Josue ?MR#: ?? [id number] ? : 1950 ?Acct:[id number] ? Age/Sex: 74 / M ?ADM Date: 08/22/24 ? Loc: HO.ED ? Attending Dr: ? Ordering Physician: Alina Odom MD ?? Date of Service: 08/22/24 ?? Procedure(s): XR chest 1V ?? Accession Number(s): [id number] ? cc: Alina Odom MD; Name,Aneesh RIVERS [...] MD in OV> ?08/22/24 0920 ? DD/ 0844 ? TD/TT: 08/22/24 0901 ? Transportation Aide: ? Procedure Note Hannah Mathis - 08/22/[address] [address] XRay Report Signed Patient: Sylvia Dawson#: [id number] : 1Acct:[id number] Age/Sex: 74 / MADM Date: 08/22/24 Loc: HO.ED Attending Dr: Ordering Physician: Alina Odom MD Date of Service: 08/22/24 Procedure(s): XR chest 1V Accession Number(s): [id number] cc: Alina Odmo MD; Name,Aneesh RIVERS EXAMINATION: XR CHEST CLINICAL [...] Luiz Manzo MD 08/22/2024 09:20 AM EDT Dictated By: Luiz Manzo MD Signed By: <Electronically signed by Luiz Manzo MD in OV> 08/22/2420 DD/ TD/TT: 08/22/24 09 Transportation Aide: [facility] External Provider IMG XR PROCEDURES Final Result * VASC Lower Extremity Arterial Duplex Bilateral With Baylee (06/20/2024 1:51 PM EST) 06/20/2024 1:51 PM EST Narrative [facility] - 06/20/2024 1:53 PM EST ? [facility] ?[address] ?[place] [address] ? Ultrasound Report ? Signed ? Patient: Josue Gautam ?MR#: [id number] ? : 1950 ?Acct:[id number] ? Age/Sex: 73 / M ?ADM Date: 06/18/24 ? Loc: HO.US ? Attending Dr: Rodney Smith MD ? Ordering Physician: Rodney Smith MD ?? Date of Service: 06/18/24 ?? Procedure(s): US arterial duplex BI w/ BAYLEE ?? Accession Number(s): [id number] ? cc: Rodney Smith MD; Name,Aneesh RIVERS [...] DD/ 1351 ? TD/TT: 06/20/24 1351 ? Transportation Aide: ? Procedure Note Del, Image - 06/20/[address] [address] Ultrasound Report Signed Patient: Sylvia Gautam#: [id number] : 1Acct:[id number] Age/Sex: 73 / MADM Date: 06/18/24 Loc: HO.US Attending Dr: Rodney Smith MD Ordering Physician: Rodney Smith MD Date of Service: 06/18/24 Procedure(s): US arterial duplex BI w/ BAYLEE Accession Number(s): [id number] cc: Rodney Smith MD; Name,Aneesh CLINICAL HISTORY: I73.9 - Peripheral vascular disease, [...] 06/20/24 1353 DD/ 1351 TD/TT: 06/20/24 1351 Transportation Aide: [facility] External Provider CV VASC ULAR PROCEDURES Edited Result - Final [facility] [address] [place] [address] * OCT, Retina - OU - Both [...] 8:27 AM EST) Triglycerides 185(H) <150 mg/dL [facility] Comment:Desirable Triglyceri de: less than [...] 190 mg/dL HDL Cholesterol 37(L) >40 mg/dL [facility] Comment:Desirable HDL: great er than 40 mg/dL Note: This HDL assay may give artificially low results in patients with liver disease. Blood Venous blood specimen / Unknown 05/24/2024 8:27 AM EST 05/24/2024 8:27 AM EST us Aneesh Oliveira MD LAB BLOOD ORDERABLES Final Resul t Performing Organization Address [facility] Co de Phone Number [facility] [address] [place] [phone] * (ABNORMAL) Urinalysis Complete (05/24/2024 8:23 AM EST) Color Urine Yellow [facility] Appearance Urine Clear [facility] PH 6.5 5.0 - 9.0 [facility] Glucose Urine UA >=1000(A) Negative mg/dL [facility] Urine Blood Negative Negative [facility] Specific [place] - Urine 1.025 1.005 - 1.025 [facility] Urine Protein 100 (2+)(A) Neg-Trace mg/dL [facility] Urine Ketones Negative Negative mg/dL [facility] Nitrite Urine Negative Negative [facility] Leukocyte Esterase Urine Negative Negative [facility] RBC Urine 0-2 0 - 2 /HPF [facility] Urine WBC 0-5 0 - 5 /HPF [facility] Urine Squamous Epithelial Cell 0-2 0 - 2 /HPF [facility] Urine Bacteria None Seen None Seen [facility] Hyaline Casts, Urine 0-2 0 - 2 /LPF [facility] 05/24/2024 8:23 AM EST 05/24/2024 9:00 AM EST us Generic External Data Provider LAB URINE ORDERAB LES Final Result Performing Organization Address City/[facility]/ZIP Co de Phone Number [facility] [address] [place] [address] [phone] * (ABNORMAL) POCT HGB A1C (05/18/2024 10:47 AM EST) Hemoglobin A1C 8.9(A) 4.0 - 6.0 % Blood 05/18/2024 10:4 7 AM EST us Aneesh Oliveira MD POINT OF CARE TEST ENTER/EDIT OR DERABLES Final Result * (ABNORMAL) Colonoscopy (02/10/2023) Pathologist [facility] Colonoscopy Abnormal(A ) Normal us Aneesh Oliveira MD HEALTH MAINTENANCE Final Result * HEPATITIS C AB W/REFL TO HCV RNA, QN, PCR (11/25/2020 10:49 AM EDT) Pathologist [facility] HEPATITIS C ANTIBODY NON-REACT TOM NON-REACT TOM [facility] INDEX 0.00 <1.00 [facility] Comment: ?? HCV antibody was non-reactive. There is no laboratory ?? evidence of HCV infection. ?? In most cases, no further action is required. However, if recent HCV exposure is suspected, a test for HCV RNA (test code 18182) is suggested. ?? For additional information please refer to http://education.Tutto/faq/VBT88z9 (This link is being provided for informational/ educational purposes only.) ?? 11/25/2020 10:4 9 AM EDT us Aneesh Oliveira MD HISTORICAL/NON ORDERABLE LABS Fi nal Result [facility] [address] from Last 3 Months or Most Recently Relevant to Health Maintenance Insurance [facility] STANDARD UHC DUAL COMPLETE [facility] Care Teams Rock Picker Relationship Specialty Start Date End Date Name, MD Aneesh [address] [place] [phone] PCP - General Family Medicine 02/14/18
--- OUTSIDE RECORDS SUMMARY | 2024-08-22 10:20 | XMS_ITS | Encounter Summary ---
Author Organization [email or web address] Address [address] [facility] [address]t [place] [address] Care Team Providers Care Military Administrative Technician Name Role Phone Name, Aneesh RIVERS Primary Care Provider [phone] Reason for Visit * Reason Comments Med Refill Encounter Details Date Type Department Care Team ([facility] st Contact Info) Description 08/18/2023 Refill [facility] [address] [place], [place] [phone] Name, MD Aneesh [address] [place] [address] Social History Tobacco Use Types Packs/Day Years [...] Info) Description 08/24/2024 9:00 AM EDT Telemedicine [facility] [address] [place] [phone] Sandra Rasheed, PharmD [address] [place] [address] 09/26/2024 10:45 AM EDT Office Visit [facility] [address] [place] [address] Name, MD Aneesh [address] [place] [address] 11/30/2024 10:00 AM EDT Office Visit [facility] [address] [place] [address] Nathanael, Jayne, OD [address] [place] [address] documented as of this encounter Visit Diagnoses Not on filedocumented in this encounter Care Teams Military Administrative Technician Relationship Specialty Start Date End Date Name, MD Aneesh [address] [place] [phone] PCP - General Family Medicine 02/14/18 documented as of this encounter
--- OUTSIDE RECORDS SUMMARY | 2024-08-22 10:20 | XMS_ITS | Encounter Summary ---
Author Organization [employer] Address [address] [facility] [address] [place] [address] Care Team Providers Care Suction Worker Name Role Phone Name, Aneesh RIVERS Primary Care Provider [phone] Reason for Visit * Reason Comments Med Refill Encounter Details Date Type Department Care Team ([facility] st Contact Info) Description 06/25/2024 Refill [facility] [address] [place], [place] [phone] Name, MD Aneesh [address] [place] [address] Hypertension, unspecified type; Prostatism; Type 2 diabetes mellitus with hyperglycemia (CMS/HCC); 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 ([facility]) Social History Tobacco Use Types Packs/Day Years [...] Info) Description 08/24/2024 9:00 AM EDT Telemedicine [facility] [address] [place] [address] Sandra Rasheed, PharmD [address] [place] [address] 09/26/2024 10:45 AM EDT Office Visit [facility] [address] [place] [address] Name, MD Aneesh [address] [place] [address] 11/30/2024 10:00 AM EDT Office Visit [facility] [address] [place] [address] Jayne Huffman, OD [address] [place] [address] documented as of this encounter Visit Diagnoses Diagnosis Hypertension, unspecified type Prostatism Unspecified hyperplasia of prostate without urinary obstruction and other lower urinary tract symptoms (LUTS) Type 2 diabetes mellitus with hyperglycemia (CMS/HCC) 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
--- OUTSIDE RECORDS SUMMARY | 2024-08-22 10:20 | XMS_ITS | Encounter Summary ---
Author Organization [employer] Address [address] [place] [address] Care Team Providers Care Experimental Welder Name Role Phone Name, Aneesh RIVERS Primary Care Provider [phone] Reason for Visit * Reason Comments Med Refill Encounter Details Date Type Department Care Team ([facility] st Contact Info) Description 04/09/2024 Refill [facility] [address] [place], [place] [phone] Name, MD Aneesh [address] [place] [address] Chronic low back pain, unspecified back pain [...] Info) Description 08/24/2024 9:00 AM EDT Telemedicine [facility] [address] [place] [phone] Sandra Rasheed, PharmD [address] [place] [address] 09/26/2024 10:45 AM EDT Office Visit [facility] [address] [place] [phone] NameAneesh MD [address] [place] [address] 11/30/2024 10:00 AM EDT Office Visit [facility] [address] [place] [address] Nathanael, Jayne, OD [address] [place] [address] documented as of this encounter Visit Diagnoses Diagnosis Chronic low back pain, unspecified back pain laterality, unspecified whether sciatica present documented in this encounter Additional Health Concerns Assessment Noted Time PHQ-9 Depression Total Score: 4 08/23/19 24 9:44 AM EDT documented as of this encounter Care Teams Experimental Welder Relationship Specialty Start Date End Date Aneesh Oliveira MD [address] [place] [phone] PCP - General Family Medicine 02/14/18 documented as of this encounter
--- OUTSIDE RECORDS SUMMARY | 2024-08-22 10:20 | XMS_ITS | Encounter Summary ---
Author Organization [employer] Address [address] [place] [address] Care Team Providers Care Windows System Admin Name Role Phone Name, Aneesh RIVERS Primary Care Provider [phone] Reason for Visit * Reason Comments Med Refill Encounter Details Date Type Department Care Team ([facility] st Contact Info) Description 08/19/2023 Refill [facility] [address] [place], [place] [phone] Name, MD Aneesh [address] [place] [address] Social History Tobacco Use Types Packs/Day Years [...] Info) Description 08/24/2024 9:00 AM EDT Telemedicine [facility] [address] [place] [phone] Sandra Rasheed, AnkushD [address] [place] [address] 09/26/2024 10:45 AM EDT Office Visit [facility] [address] [place] [address] Name, MD Aneesh [address] [place] [address] 11/30/2024 10:00 AM EDT Office Visit [facility] [address] [place] [address] Nathanael, Jayne, OD [address] [place] [address] documented as of this encounter Visit Diagnoses Not on filedocumented in this encounter Care Teams Windows System Admin Relationship Specialty Start Date End Date Name, MD Aneesh [address] [place] [phone] PCP - General Family Medicine 02/14/18 documented as of this encounter
--- OUTSIDE RECORDS SUMMARY | 2024-08-22 10:20 | XMS_ITS | Data Portability ---
Author Organization [place] - [facility], Allergy Address [address] [address] Care Team Providers Care Ecdis N Navigation Operator Name Role Phone NAME, LAURENT Primary [...] vocal quality. I recommended he see a health psychologist, voice specalist, to evaluate him and see if he would be a good candidate for a more permanent medialization procedure. Patient is willing and interested to travel to [place] to hear options. - Referral to Otolaryngology - Dr. Stafford or Dr. Machuca for discussion [email or web address] Not available 05/04/2024 08:27:45 Plan of Treatment Reminders Order Date Submit Date Provider Last Modified By Organization Details Last Modified Time Details Appointments None recorded. Lab None recorded. Referral otolaryngol ogist referral - Attn: Betsy. Dr. Machuca or Dr. Stafford - bilateral vocal cord paralysis. 2023 024 2 Otolaryngolog y, [address], [place], [address], 4 10:41:11 Procedures None recorded. Surgeries None recorded. Imaging None recorded. Medication Orders None recorded. Patient TargetsNo targets recorded. Patient InstructionsNo instructions recorded. Reason for Referral Mobility Architect Referral fo r Dysphonia Attn: Birgit. Dr. Machuca or Dr. Stafford - bilateral vocal cord paralysis. 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 Active 2018 Paralysis of vocal cords and larynx, unspecifie d; Note: Date Diagnosed: 12/25/2018 2:49 PM (J38.00) Not Available [facility] 4 03:24:49 Dysphonia 76665972 Active 2018 Hoarseness ; Note: Date Diagnosed: 12/25/2018 2:49 PM (R49.0) Not Available [facility] 4 03:24:49 Simple goiter 746486314 Active 2018 Goiter NOS; Note: Date Diagnosed: 12/25/2018 2:49 PM (E04.9) Not Available [facility] 4 03:24:49 Paralysis of larynx 47199770 Active 2023 RYAN MAYA MD [address] [place] [address], [phone] , [facility] 4 08:24:41 Problem Notes None recorded. Procedures Surgical History Date Name Laterality Status Provider Name and Address Organization Details Recorded Time 05/03/20 24 Fiberoptic Laryngoscopy (Comprehensive) completed RYAN MAYA MD [address] [place] [address], [phone], [facility] 05/04/2024 08:24:07 Imaging Results None recorded. [...] Updated DateTime 05/03/2024 167.64 cm 34.7 kg/m2 74285.36 g Natalilinda Ramírez [place] - [facility] 05/03/2024 13:28:04 Social History None recorded. Functional Status None recorded. Mental Status None recorded. Family History Nothing Reported. Medical History No medical history recorded. Past Encounters Encounter ID Performer Location Encounter Start Date Encounter Closed Date Diagnosis/Indication Diagnosis SNOMED-CT Code Diagnosis ICD10 Code Diagnosis Note [id number] RYAN MAYA MD [facility] [address] [phone] 05/03/2024 13:04:26 05/03/2024 16:54:58 Paralysis of larynx 61717978 J38.02 Dysphonia 57426294 R49.9 Health Concerns Section Related Observation LastModified by Organization Detai ls LastModified Time None Recorded Concern Status LastModified by Organization Details LastModified Time None Recorded Advance Directives Directive None Recorded Payers Encounter Date Sequence Insurance Name Policy Number Policy Hood Covered Member ID Hood Member ID Guarantor Name 05/03/2024 1 [facility] (MEDICARE REPLACEMENT/ ADVANTAGE - HMO) Josue Mace [id number] Josue Mace 05/03/2024 2 [place] [facility] Josue Mace [id number] Josue Mace Notes Date Note Type Note Provider Name and Address Organization Details Recorded Time 05/03/2024 text/html 73yo gentleman rodrigo miguel presents today for evaluation of bilateral vocal cord paralysis and dysphonia. He has had difficulty with his voice for about 5 years. He underwent a traumatic intubation at [facility] in 2018 in the setting of an anaphylactic event. Following, this resulted in dysphonia and dyspnea with exertion. He was seen by otolaryngology in [place] - Dr. John Coppola. At that time, [...] aspirin 81 & clopidogrel. RYAN MAYA MD [address] [place] [address], [phone], [facility] 05/04/2024 20:31:01
[2024-08-22 11:28] LABS: Appearance Urine Clear; Color Urine Yellow; Glucose Urine UA >=1000 mg/dL (Negative); Leukocyte Esterase Urine Negative (Negative); Nitrite Urine Negative (Negative); PH 6.5 (5.0-9.0); UMIC TRIGGER UACC YES; Urine Blood Trace (Negative); Urine Ketones Negative (Negative); Urine Protein 300 (3+) mg/dL (Neg-Trace)
[2024-08-22 11:31] LABS: Bacteria Urine None Seen (None Seen); Hyaline Casts Urine 0-2 /LPF (0-2); RBC Urine 0-2 /HPF (0-2); Squamous Epithelial Cell Urine 0-2 /HPF (0-2); WBC Urine 0-5 /HPF (0-5)
[2024-08-22 11:38] VITALS: BP 176/72; PULSE 72; RESP 16; TEMP 36.5; O2SAT 97
[2024-08-22 12:57] VITALS: O2SAT 96
[2024-08-22 12:58] VITALS: BP 176/72; PULSE 72; RESP 16; TEMP 36.5; O2SAT 97
[2024-08-22 12:59] VITALS: O2SAT 96
== END 2024-08-22 12:59 | disposition home or self-care (01) ==
PROVIDERS: Emergency Provider Emergency Medicine Emergency Medical Services; PCP Internal Medicine Geriatric Medicine
DX: U07.1 COVID-19 (principal); I82.4Z2 Acute embolism and thrombosis of unspecified deep veins of left distal lower extremity; N28.1 Cyst of kidney, acquired; R60.0 Localized edema; M79.605 Pain in left leg; R06.02 Shortness of breath; I44.0 Atrioventricular block, first degree; R05.9 Cough, unspecified; M79.10 Myalgia, unspecified site; E11.9 Type 2 diabetes mellitus without complications; Z79.4 Long term (current) use of insulin; Z79.899 Other long term (current) drug therapy
CPT/HCPCS: 0241U; 36415; 71045; 74176; 80048; 80076; 81001; 83880; 84484; 85025; 93005; 93971; 99284; 99285

== ENCOUNTER → 2024-08-22 08:44 | Outpatient (BNV) | payer OTHER, SELFPAY | PROVIDERS: Emergency Provider Emergency Medicine Emergency Medical Services; PCP Internal Medicine Geriatric Medicine; Visit Provider Internal Medicine | DX: R06.02 Shortness of breath (principal); I44.0 Atrioventricular block, first degree | CPT/HCPCS: 93010 ==

== ENCOUNTER → 2024-08-22 08:44 | Outpatient (BNV) | payer OTHER, SELFPAY | PROVIDERS: Emergency Provider Emergency Medicine Emergency Medical Services; PCP Internal Medicine Geriatric Medicine; Visit Provider Radiology Diagnostic Radiology | DX: N40.0 Benign prostatic hyperplasia without lower urinary tract symptoms (principal); N32.89 Other specified disorders of bladder; N28.1 Cyst of kidney, acquired; K42.9 Umbilical hernia without obstruction or gangrene; R16.0 Hepatomegaly, not elsewhere classified; I25.10 Atherosclerotic heart disease of native coronary artery without angina pectoris; M79.605 Pain in left leg; R07.9 Chest pain, unspecified | CPT/HCPCS: 71045; 74176 ==

== ENCOUNTER 2024-08-30 12:46 | Outpatient (REF) | payer OTHER, SELFPAY ==
--- NOTE | ~2024-08-30 | US_ITS ---
EXAMINATION: US TRIPLEX LOWER EXTREMITY, LEFT CLINICAL INFORMATION: Nonocclusive thrombus in the left posterior tibialis vein COMPARISON: August 22, 2024. TECHNIQUE: Color-flow triplex imaging with spectral analysis and compression Doppler were performed on the left lower extremity. FINDINGS: There is persistent atelectasis of thrombus in the left posterior tibialis vein, distal segment. A interrogated the vessels from the left common femoral vein, greater saphenous vein, profunda, popliteal veins demonstrated normal phasic flow and compressibility. There is no Son's cyst. US/US venous duplex LE LT IMPRESSION: Persistent nonocclusive thrombus in the distal segment left popliteal vein. No change. Electronically signed by: Cheo Galindo MD 08/30/2024 02:05 PM EDT
--- OUTSIDE RECORDS SUMMARY | 2024-08-30 15:08 | XMS_ITS | Clinical Summary ---
Author Organization [facility] Address [address] [place] [address] [place] [phone] Phone Care Team Providers Care Tax Manager Public Name Role Phone Name, Aneesh RVIERS Primary Care Provider [phone] Allergies Active Allergy Reactions Criticality Noted Date [...] Vaccine (#1) 2024 8, 05/17/2016, 05/11/2012 Insurance [facility] [employer] [place] [facility] [employer] Care Teams Tax Manager Public Relationship Specialty Start Date End Date Name, MD Aneesh [address] [place] [phone] PCP - General 06/23/20
--- OUTSIDE RECORDS SUMMARY | 2024-08-30 15:08 | XMS_ITS | Encounter Summary ---
Author Organization [employer] Address [address] [facility] 7[address] [place] [address] Care Team Providers Care Strip Feeder Name Role Phone Name, Aneesh RIVERS Primary Care Provider [phone] Encounter Details Date Type Department Care Team (Late st Contact Info) Description 08/22/2024 Orders Only [facility] External Provider, [facility] Social History Tobacco Use Types Packs/Day [...] Care Team (Late st Contact Info) Description 09/26/2024 9:00 AM EDT Medication Management [facility] MEDICINE [address] [place] [address] Sandra Rasheed, PharmD [address] [place] [address] 09/26/2024 10:45 AM EDT Office Visit [facility]IC[facility] [address] [place] [address] Name, MD Aneesh [address] [place] [address] 11/30/2024 10:00 AM EDT Office Visit [facility] OPTOMETRY [address] [place] [address] Nathanael, Jayne, OD [address] [place] [address] documented as of this encounter Procedures Procedure Name Priority Date/Time Associated Diagnosis Comments US VENOUS DUPLEX LE LT Routine 08/30/2024 1:23 PM EDT URINALYSIS, COMPLETE, WITH REFLEX TO CULTURE Routine 08/22/2024 11:15 AM EDT SLIDE REVIEW Routine 08/22/2024 9:38 AM EDT HIGH SENSITIVITY TROPONIN I Routine 08/22/2024 9:38 AM EDT CBC WITH AUTO DIFFERENTIAL Routine 08/22/2024 9:38 AM EDT B TYPE NATRIURETIC PEPTIDE (BNP) Routine 08/22/2024 9:38 AM EDT HEPATIC FUNCTION PANEL Routine 08/22/2024 9:38 AM EDT BASIC METABOLIC PANEL Routine 08/22/2024 9:38 AM EDT SARS COV2/INFLUENZA A/B AND RSV RNA QL NAAT Routine 08/22/2024 9:35 AM EDT US VENOUS DUPLEX LE LT Routine 08/22/2024 9:[address] ABDOMEN PELVIS WO CONTRAST Routine 08/22/2024 8:58 AM EDT XR CHEST 1 VIEW Routine 08/22/2024 8:44 AM EDT documented in this encounter Results * US VENOUS DUPLEX LE LT (08/30/2024 1:23 PM EDT) Anatomical Region Laterality Modality Abdomen Ultrasound 08/30/2024 1:23 PM EDT Narrative 08/30/2024 2:08 PM EDT ? [facility] ?[address] ?[place] [address] ? Ultrasound Report ? Signed ? Patient: Dain Mace,Josue ?MR#: ?? [id number] ? : 1950 ?Acct:[id number] ? Age/Sex: 74 / M ?ADM Date: //25 ? Loc: HO.US ? Attending Dr: Aneesh Oliveira MD ? Ordering Physician: Aneesh Oliveira MD ?? Date of Service: 08/30/24 ?? Procedure(s): US venous duplex LE LT ?? Accession Number(s): [id number] ? cc: Name,Aneesh RIVERS ? EXAMINATION: ?? US TRIPLEX LOWER EXTREMITY, LEFT ? CLINICAL INFORMATION: ?? Nonocclusive thrombus in the left posterior tibialis vein ? COMPARISON: ?? August 22, 2024. ? TECHNIQUE: ?? Color-flow triplex imaging with spectral analysis and compression ?? Doppler were performed on the left lower extremity. ? FINDINGS: ?? There is persistent atelectasis of thrombus in the left posterior ?? tibialis vein, distal segment. A interrogated the vessels from the left ?? common femoral vein, greater saphenous vein, profunda, popliteal veins ?? demonstrated normal phasic flow and compressibility. ? There is no Son's cyst. ? / venous duplex LE LT ?? IMPRESSION: ?? Persistent nonocclusive thrombus in the distal segment left popliteal ?? vein. No change. ? Electronically signed by: ??Cheo Galindo MD ??08/30/2024 02:05 PM ?? EDT RP ? Dictated By: ?Cheo Looney MD ? Signed By: ?<Electronically signed by Cheo Landon MD in OV> ? 08/30/24 1405 ? DD/ 1323 ? TD/TT: 08/30/24 1343 ? Maintenance Machine Repairer: ? Procedure Note Hannah Mathis - 08/30/[address] [address] Ultrasound Report Signed Patient: Josue DawsonMR#: [id number] : 1950cct:[id number] Age/Sex: 74 / MADM Date: 08/30/24 Loc: .US Attending Dr: Aneesh Oliveira MD Ordering Physician: Aneesh Oliveira MD Date of Service: 08/30/24 Procedure(s): US venous duplex LE Accession Number(s): [id number] cc: Aneesh Oliveira MD EXAMINATION: US TRIPLEX LOWER EXTREMITY, LEFT CLINICAL INFORMATION: Nonocclusive thrombus in the left posterior tibialis vein COMPARISON: August 22, 2024. TECHNIQUE: Color-flow triplex imaging with spectral analysis and compression Doppler were performed on the left lower extremity. FINDINGS: There is persistent atelectasis of thrombus in the left posterior tibialis vein, distal segment. A interrogated the vessels from the left common femoral vein, greater saphenous vein, profunda, popliteal veins demonstrated normal phasic flow and compressibility. There is no Son's cyst. US/US venous duplex LE LT IMPRESSION: Persistent nonocclusive thrombus in the distal segment left popliteal vein. No change. Electronically signed by: Cheo Galindo MD 08/30/2024 02:05 PM EDT Dictated By: Cheo Looney MD Signed By: <Electronically signed by Cheo Landon MDin OV> 08/30/24 1405 DD/ 1323 TD/TT: 08/30/24 1343 Maintenance Machine Repairer: us Aneesh Name IMG US PROCEDURES Final Result * (ABNORMAL) Urinalysis, Complete, with Reflex to Culture (08/22/2024 11:15 AM EDT) Color Urine Yellow [facility] Appearance Urine Clear [facility] PH 6.5 5.0 - 9.0 [facility] Glucose Urine UA >=1000(A) Negative mg/dL [facility] Urine Blood Trace(A) Negative [facility] Specific [place] - Urine 1.020 1.005 - 1.025 [facility] Urine Protein 300 (3+)(A) Neg-Trace mg/dL [facility] Urine Ketones Negative Negative mg/dL [facility] Nitrite Urine Negative Negative [facility] Leukocyte Esterase Urine Negative Negative [facility] RBC Urine 0-2 0 - 2 /HPF [facility] Urine WBC 0-5 0 - 5 /HPF [facility] Urine Squamous Epithelial Cell 0-2 0 - 2 /HPF [facility] Urine Bacteria None Seen None Seen [facility] Hyaline Casts, Urine 0-2 0 - 2 /LPF [facility] 08/22/2024 11:1 5 AM EDT 08/22/2024 11:24 AM EDT Narrative [facility] - 08/22/2024 11:33 AM EDT [id number], Clean Catch us Generic External Data Provider LAB URINE ORDERAB LES Final Result Performing Organization Address [facility] de Phone Number [facility] [address] [place] [phone] * High Sensitivity Troponin I (08/22/2024 9:38 AM EDT) TROPONIN I HIGH SENSITIVITY 3.2 <3.5 - 35.0 ng/L [facility] Comment:The [employer] high sens itivity Troponin-I results should beused in conjunction with other diagnostic information suchas ECG, clinical observations and information, and patientsymptoms to aid in the diagnosis of [place]. 08/22/2024 9:38 AM EDT 08/22/2024 9:41 AM EDT Generic External Data Provider LAB BLOOD ORDERAB LES Final Result Performing Organization Address [facility] Phone Number [facility] [address] [place] [phone] * B Type Natriuretic Peptide (BNP) (08/22/2024 9:38 AM EDT) B Type Natriuretic Peptide 24 <100 pg/mL [facility] 08/22/2024 9:38 AM EDT 08/22/2024 9:41 AM EDT Generic External Data Provider LAB BLOOD ORDERAB LES Final Result Performing Organization Address [facility] Co de Phone Number [facility] [address] [place] [phone] * Slide Review (08/22/2024 9:38 AM EDT) Slide Review VERIFIED [facility] 08/22/2024 9:38 AM EDT 08/22/2024 9:41 AM EDT Generic External Data Provider LAB BLOOD ORDERAB LES Final Result Performing Organization Address [facility]/State/ZIP Co de Phone Number [facility] [address] [place] [phone] [phone] * (ABNORMAL) Basic Metabolic Panel (08/22/2024 9:38 AM EDT) Sodium 136 135 - 145 mmol/L [facility] Potassium 3.6 3.3 - 5.1 mmol/L [facility] Chloride 101 96 - 108 mmol/L [facility] Carbon Dioxide 28 22 - 29 mmol/L [facility] Anion Gap 11(L) 12 - 20 [facility] Urea Nitrogen (BUN) 21(H) 9 - 16 mg/dL [facility] Creatinine, Serum 1.21 0.5 - 1.4 mg/dL [facility] Creatinine Clr Calc Pharmacy 58.5 [facility] Comment:eGFR (calculated fro m the MDRD study equation) and eCrCl(calculated from the Cockcroft-Gault equation) are based ondifferent parameters and may not yield comparable results.If eCrCl result is absurd, please check patient'sheight/weight. Estimated Glomerular Filt Rate 59 [facility] Comment:Chronic Kidney Disea se: Estimated GFR < 60 mL/min/1.18m8Swcfuk Kidney Disease: Estimated GFR < 15 mL/min/1.73m2 Glucose 343(H) 60 - 115 mg/dL [facility] Calcium 9.5 8.4 - 10.2 mg/dL [facility] 08/22/2024 9:38 AM EDT 08/22/2024 9:41 AM EDT us Generic External Data Provider LAB BLOOD ORDERAB LES Final Result [facility] [address] [place] [phone] * (ABNORMAL) Hepatic Function Panel (08/22/2024 9:38 AM EDT) Bilirubin, Total 0.4 0.0 - 1.0 mg/dL [facility] Bilirubin, Direct 0.1 0.0 - 0.5 mg/dL [facility] Aspartate Amino Transferase 33 5 - 37 U/L [facility] Alanine Aminotransferase 48(H) 0 - 40 U/L [facility] Total Protein 7.6 6.5 - 8.0 g/dL [facility] Albumin Level 3.5 3.5 - 5.0 g/dL [facility] Alkaline Phosphatase 70 39 - 117 U/L [facility] 08/22/2024 9:38 AM EDT 08/22/2024 9:41 AM EDT us Generic External Data Provider LAB BLOOD ORDERAB LES Final Result [facility] [address] [place] [phone] [phone] * (ABNORMAL) CBC auto differential (08/22/2024 9:38 AM EDT) White Blood Count 6.0 4.8 - 10.8 X10*3/uL [facility] Red Blood Count 4.78 4.60 - 5.80 X10*6/uL [facility] Hemoglobin 14.2 14.0 - 18.0 g/dl [facility] Hematocrit 41.6(L) 42.0 - 52.0 % [facility] Mean Corpuscular Volume 87.0 80.0 - 98.0 fL [facility] Mean Corpuscular Hemoglobin 29.7 27.0 - 33.0 pg [facility] Mean Corpuscular HGB Conc 34.1 31.0 - 36.0 g/dl [facility] Red Cell Distribution Width 12.9 11.0 - 16.0 % [facility] Platelet Count 233 160 - 400 X10*3/uL [facility] Mean Platelet Volume 10.1 9.4 - 12.4 fL [facility] Neutrophils Percent Auto 53.6 45 - 73 % [facility] Imm Gran Pct Auto 1.0(H) 0.0 - 0.4 % [facility] Lymphocytes Percent Auto 18.7(L) 20 - 40 % [facility] Monocytes Percent Auto 20.7(H) 2 - 11 % [facility] Eosinophils Percent Auto 5.0(H) 0 - 4 % [facility] Basophils Percent Auto 1.0 0 - 2 % [facility] NRBC Pct Auto 0.0 0.0 - 0.2 /100WBC [facility] Neutrophils Absolute Auto 3.2 2.0 - 8.3 x10*3/uL [facility] Imm Gran Abs Auto 0.06(H) 0.00 - 0.03 X10*3/uL [facility] Lymphocytes Absolute Auto 1.1(L) 1.2 - 4.9 X10*3/uL [facility] Monocytes Absolute Auto 1.2 0.1 - 1.2 X10*3/uL [facility] Eosinophils Absolute Auto 0.3 0.0 - 0.4 X10*3/uL [facility] Basophils Absolute Auto 0.1 0.0 - 0.2 X10*3/uL [facility] NRBC Abs Auto 0.000 0.0 - 0.012 X10*3/uL [facility] 08/22/2024 9:38 AM EDT 08/22/2024 9:41 AM EDT us Generic External Data Provider LAB BLOOD ORDERAB LES Edited Result - Final [facility] [address] [place] [phone] * (ABNORMAL) SARS-CoV-2 RNA, Influenza A/B, and RSV RNA, Ql NAAT (08/22/2024 9:35 AM EDT) Influenza A PCR NEGATIVE Negative [facility] Influenza B PCR NEGATIVE Negative [facility] Resp Syncy Virus RNA Qual PCR NEGATIVE Negative [facility] SARS COV2 PCR POSITIVE(A) Negative [facility] Comment:All test results mus t be correlated with clinical findings.Negative results do not preclude SARS-CoV2, influenza Avirus, influenza B virus and/or RSV infectionand should not be used as the sole basis for treatment orother patient management decisions. Negative results must becombined with clinical observations, patient history, andepidemiological information.This test has not been evaluated for monitoring treatment ofinfection.This test has been authorized by the FDA under an EmergencyUse Authorization (EUA) for use by authorized laboratories.Testing performed on the State GeneXpert utilizingreal-time RT-PCR.All SARS CoV2 and positive influenza A/B results arereported to [facility]. 08/22/2024 9:35 AM EDT 08/22/2024 9:41 AM EDT us Generic External Data Provider LAB MICROBIOLOGY - GENERAL ORDERABLES Final Result [facility] [address] [place] [address] [phone] * US VENOUS DUPLEX LE LT (08/22/2024 9:03 AM EDT) Anatomical Region Laterality Modality Abdomen Ultrasound 08/22/2024 9:03 AM EDT Narrative 08/22/2024 9:37 AM EDT ? [facility] ?[address] ?[place] [address] ? Ultrasound Report ? Signed ? Patient: Josue Dawson ?MR#: ?? [id number] ? : 1950 ?Acct:[id number] ? Age/Sex: 74 / M ?ADM Date: 08/22/24 ? Loc: HO.ED ? Attending Dr: ? Ordering Physician: Alina Odom MD ?? Date of Service: 08/22/24 ?? Procedure(s): US venous duplex LE LT ?? Accession Number(s): [id number] ? cc: OdomAlina MD; Name,Aneesh RIVERS ? EXAMINATION: ??US LOWER [...] no flow identified, consistent with thrombosis. ? / venous duplex LE LT ?? IMPRESSION: ?? No evidence of acute DVT in the left lower extremity above the knee. ?? 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 ?? Follow-up is recommended to evaluate for extension into the deep venous ?? system. ? Electronically signed by: ??Berlin Willoughby MD ??08/22/2024 09:34 AM EDT ? Dictated By: ?Berlin Willoughby MD ? Signed By: ?<Electronically signed by Berlin Willoughby MD in OV> ?08/22/24 0934 ? DD/ 0903 ? TD/TT: 08/22/2413 ? Maintenance Machine Repairer: ? Procedure Note Anhpatriciabetito, Image - 08/22/2024 [place] [address] Ultrasound Report Signed Patient: Josue Dawson#: [id number] : 1950cct:[id number] Age/Sex: 74 / MADM Date: 08/22/24 Loc: HO.ED Attending Dr: Ordering Physician: Alina Odom MD Date of Service: 08/22/24 Procedure(s): US venous duplex LE LT Accession Number(s): [id number] cc: Alina Odom MD; Name,Aneesh RIVERS EXAMINATION: [...] signed by Berlin Willoughby MD in OV> 08/22/2434 DD/ 09 TD/TT: 08/22/24 0913 Maintenance Machine Repairer: [facility] External Provider IMG US PROCEDURES Final Result * CT Abdomen Pelvis w/o Contrast (08/22/2024 8:58 AM EDT) Anatomical Region Laterality Modality Body, Pelvis, Abdomen Computed T omography 08/22/2024 8:58 AM EDT Narrative 08/22/2024 9:14 AM EDT ? [facility] ?[address] ?[place] [address] ? CT Scan Report ? Signed ? Patient: Josue Dawson ?MR#: ?? [id number] ? : 1950 ?Acct:[id number] ? Age/Sex: 74 / M ?ADM Date: 03/12/25 ? Loc: HO.ED ? Attending Dr: ? Ordering Physician: Alina Odom MD ?? Date of Service: 08/22/24 ?? Procedure(s): CT abdomen pelvis wo IV con ?? Accession Number(s): [id number] ? cc: Alina Odom MD; Name,Aneesh RIVERS ? Report Number: ?? [id number]: Total DLP = ??751.00 mGy-cm ?? EXAMINATION: [...] DD/ 0858 ? TD/TT: 08/22/24 0858 ? Maintenance Machine Repairer: ? Procedure Note Hannah Mathis - 08/22/[address] [address] [address] Scan Report Signed Patient: Josue Dawson#: [id number] : 1Acct:[id number] Age/Sex: 74 / MADM Date: 08/22/24 Loc: HO.ED Attending Dr: Ordering Physician: Alina Odom MD Date of Service: 08/22/24 Procedure(s): CT abdomen pelvis wo IV con Accession Number(s): [id number] cc: Alina Odom MD; Name,Aneesh Report Number: [id number]: Total DLP = 751.00 mGy-cm EXAMINATION: CT [...] Cheo Galindo MD 08/22/2024 09:10 AM EDT RP Dictated By: Cheo Looney MD Signed By: <Electronically signed by Cheo Landon MDin OV> 08/22/24 0910 DD/ 7 TD/TT: 08/22/24857 Maintenance Machine Repairer: [facility] External Provider IMG CT PROCEDURES Final Result * XR Chest 1 View (08/22/2024 8:44 AM EDT) Anatomical Region Laterality Modality Chest Radiographic Trang ging 08/22/2024 8:44 AM EDT Narrative 08/22/2024 9:24 AM EDT ? [facility] ?[address] ?[place] [address] ?XRay Report ? Signed ? Patient: Dain RodriJosue ?MR#: ?? [id number] ? : 1950 ?Acct:[id number] ? Age/Sex: 74 / M ?ADM Date: 08/22/24 ? Loc: HO.ED ? Attending Dr: ? Ordering Physician: Alina Odom MD ?? Date of Service: 08/22/24 ?? Procedure(s): XR chest 1V ?? Accession Number(s): [id number] ? cc: Alina Odom MD; Name,Aneesh RIVERS [...] by Luiz Manzo MD in OV> ?08/22/24 09 ? DD/ 0844 ? TD/TT: 08/22/24 0901 ? Maintenance Machine Repairer: ? Procedure Note Donjuanter, Image - 08/22/[address] [address] XRay Report Signed Patient: Josue DawsonMR#: [id number] : 1950cct:[id number] Age/Sex: 74 / MADM Date: 08/22/24 Loc: HO.ED Attending Dr: Ordering Physician: Alina Odom MD Date of Service: 08/22/24 Procedure(s): XR chest 1V Accession Number(s): [id number] cc: Alina Odom MD; Name,Aneesh RIVERS EXAMINATION: [...] OV> 08/22/24919 DD/ 3 TD/TT: 08/22/24 09 Maintenance Machine Repairer: [facility] External Provider IMG XR PROCEDURES Final Result documented in this encounter Visit Diagnoses Not on filedocumented in this encounter Additional Health Concerns Assessment Noted Time PHQ-9 Depression Total Score: 4 08/23/19 24 9:44 AM EDT documented as of this encounter Care Teams Strip Feeder Relationship Specialty Start Date End Date Name, MD Aneesh [address] [place] [address] PCP - General Family Medicine 02/14/18 documented as of this encounter
--- OUTSIDE RECORDS SUMMARY | 2024-08-30 15:08 | XMS_ITS | Encounter Summary ---
Author Organization [employer] Address [address] [facility] 7[address] [place] [address] Care Team Providers Care Director Of Managed Services Name Role Phone Name, Aneesh RIVERS Primary Care Provider [phone] Sandra Rasheed PharmD Unavailable [phone] Reason for Visit * Reason Comments Med Refill Encounter Details Date Type Department Care Team ([facility] st Contact Info) Description 01/12/2024 Refill [facility] MED & PEDS [address] [place], [place] [phone] Name, MD Aneesh [address] [place] [address] Chronic low back pain, unspecified back pain [...] Description 09/26/2024 9:00 AM EDT Medication Management [facility] MEDICINE [address] [place] [address] Sandra Rasheed, PharmD [address] [place] [address] 09/26/2024 10:45 AM EDT Office Visit [facility] MEDICINE [address] [place] [address] Aneesh Oliveira MD [address] [place] [address] 11/30/2024 10:00 AM EDT Office Visit [facility] OPTOMETRY [address] [place] [address] Nathanael, Jayne, OD [address] [place] [address] documented as of this encounter Visit Diagnoses Diagnosis Chronic low back pain, unspecified back pain laterality, unspecified whether sciatica present documented in this encounter Additional Health Concerns Assessment Noted Time PHQ-9 Depression Total Score: 4 08/23/19 24 9:44 AM EDT documented as of this encounter Care Teams Director Of Managed Services Relationship Specialty Start Date End Date Aneesh Oliveira MD [address] [place] [phone] PCP - General Family Medicine 02/14/18 Sandra Rsaheed, Javi [address] [place] [address] Pharmacist Internal Medicine 08/24/24 documented as of this encounter
--- OUTSIDE RECORDS SUMMARY | 2024-08-30 15:09 | XMS_ITS | Encounter Summary ---
Author Organization [employer] Address [address] [facility] [address] [place] [address] Care Team Providers Care Steel Fixer Name Role Phone Name, Aneesh RIVERS Primary Care Provider [phone] Reason for Visit * Reason Comments Med Refill Encounter Details Date Type Department Care Team ([facility] st Contact Info) Description 08/13/2024 Refill [facility] CH[facility] MED & PEDS [address] [place], [place] [phone] [facility] [address] [place] [address] Chronic low back pain, unspecified back pain [...] Watts LPN - 08/14/2024 10:02 AM EST INTERNATIONAL LOGISTICS ANALYST checked on 08/14/24. documented in this encounter Plan of Treatment Upcoming Encounters Date Type Department Care Team (Late st Contact Info) Description 09/26/2024 9:00 AM EDT Medication Management [facility] MEDICINE [address] [place] [address] PuiaSandra, PharmD [address] [place] [address] 09/26/2024 10:45 AM EDT Office Visit [facility] MEDICINE [address] [place] [address] Name, MD Aneesh [address] [place] [address] 11/30/2024 10:00 AM EDT Office Visit [facility] OPTOMETRY [address] [place] [address] Jyane Huffman, OD [address] [place] [address] documented as of this encounter Visit Diagnoses Diagnosis Chronic low back pain, unspecified back pain laterality, unspecified whether sciatica present documented in this encounter Additional Health Concerns Assessment Noted Time PHQ-9 Depression Total Score: 4 08/23/19 24 9:44 AM EDT documented as of this encounter Care Teams Steel Fixer Relationship Specialty Start Date End Date Name, MD Aneesh [address] [place] [address] PCP - General Family Medicine 02/14/18 documented as of this encounter
--- OUTSIDE RECORDS SUMMARY | 2024-08-30 15:09 | XMS_ITS | Data Portability ---
Author Organization [place] - [facility], Allergy Address [address] [address] Care Team Providers Care Hat And Cap Parts Cutter Hand Name Role Phone NAME, LAURENT Primary Care [...] vocal quality. I recommended he see a bomb squad commander, voice specalist, to evaluate him and see if he would be a good candidate for a more permanent medialization procedure. Patient is willing and interested to travel to [place] to hear options. - Referral to [facility] Otolaryngology - Dr. Stafford or Dr. Machuca for discussion [email or web address] Not available 05/04/2024 08:27:45 Plan of Treatment Reminders Order Date Submit Date Provider Last Modified By Organization Details Last Modified Time Details Appointments None recorded. Lab None recorded. Referral otolaryngol ogist referral - Attn: Betsy. Dr. Machuca or Dr. Stafford - bilateral vocal cord paralysis. 2023 024 [email or web address] 2 [facility] Otolaryngolog y, [address], [place], [address], 4 10:41:11 Procedures None recorded. Surgeries None recorded. Imaging None recorded. Medication Orders None recorded. Patient TargetsNo targets recorded. Patient InstructionsNo instructions recorded. Reason for Referral [employer] Referral fo r Dysphonia Attn: Birgit. Dr. Machuca or Dr. Stafford - bilateral vocal cord paralysis. 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 4 08:24:41 Problem Notes None recorded. Procedures Surgical History Date Name Laterality Status Provider Name and Address Organization Details Recorded Time 05/03/20 24 Fiberoptic Laryngoscopy (Comprehensive) completed RYAN MAYA MD [address] [place] [address], [phone], [facility] 05/04/2024 08:24:07 Imaging Results None recorded. Procedure [...] Updated DateTime 05/03/2024 167.64 cm 34.7 kg/m2 87499.36 g Natalilinda Ramírez [place] - [facility] 05/03/2024 13:28:04 Social History None recorded. Functional Status None recorded. Mental Status None recorded. Family History Nothing Reported. Medical History No medical history recorded. Past Encounters Encounter ID Performer Location Encounter Start Date Encounter Closed Date Diagnosis/Indication Diagnosis SNOMED-CT Code Diagnosis ICD10 Code Diagnosis Note [id number] RYAN MAYA MD [facility] [address] [address] 05/03/2024 13:04:26 05/03/2024 16:54:58 Paralysis of larynx 36589340 J38.02 Dysphonia 14391094 R49.9 Health Concerns Section Related Observation LastModified by Organization Detai ls LastModified Time None Recorded Concern Status LastModified by Organization Details LastModified Time None Recorded Advance Directives Directive None Recorded Payers Encounter Date Sequence Insurance Name Policy Number Policy Hood Covered Member ID Hood Member ID Guarantor Name 05/03/2024 1 [facility] (MEDICARE REPLACEMENT/ ADVANTAGE - HMO) Josue Mace [id number] Josue Mace 05/03/2024 2 [place] [facility] Josue Mace [id number] Josue Mace Notes Date Note Type Note Provider Name and Address Organization Details Recorded Time 05/03/2024 text/html 73yo gentleman rodrigo miguel presents today for evaluation of bilateral vocal cord paralysis and dysphonia. He has had difficulty with his voice for about 5 years. He underwent a traumatic intubation at [facility] in 2018 in the setting of an anaphylactic event. Following, this resulted in dysphonia and dyspnea with exertion. He was seen by otolaryngology in [place] - Dr. John Coppola. At that time, [...] aspirin 81 & clopidogrel. RYAN MAYA MD [address] [place] [address], [phone], [facility] - [facility] 05/04/2024 20:31:01
--- OUTSIDE RECORDS SUMMARY | 2024-08-30 15:09 | XMS_ITS | Encounter Summary ---
Author Organization [employer] Address [address] [facility] 7[address] [place] [address] Care Team Providers Care Coding Specialist Home Health Name Role Phone Name, Aneesh RIVERS Primary Care Provider [phone] Sandra Rasheed PharmD Unavailable [phone] Reason for Visit * Reason Comments Med Refill Encounter Details Date Type Department Care Team ([facility] Contact Info) Description 05/02/2024 Refill [facility] MED[facility] [address] [place] [address] Name, MD Aneesh [address] [place] [address] Chronic constipation Social History Tobacco Use Types [...] Description 09/26/2024 9:00 AM EDT Medication Management [facility] [address] [place] [address] Sandra Rasheed, PharmD [address] [place] [address] 09/26/2024 10:45 AM EDT Office Visit [facility] [address] [place] [address] Aneesh Oliveira MD [address] [place] [address] 11/30/2024 10:00 AM EDT Office Visit [facility] OPTOMETRY [address] [place] [address] Nathanael, Jayne, OD [address] [place] [address] documented as of this encounter Visit Diagnoses Diagnosis Chronic constipation Unspecified constipation documented in this encounter Additional Health Concerns Assessment Noted Time PHQ-9 Depression Total Score: 4 08/23/19 24 9:44 AM EDT documented as of this encounter Care Teams Coding Specialist Home Health Relationship Specialty Start Date End Date Aneesh Oliveira MD [address] [place] [address] PCP - General Family Medicine 02/14/18 Sandra Rasheed PharmD [address] [place] [address] Pharmacist Internal Medicine 08/24/24 documented as of this encounter
--- OUTSIDE RECORDS SUMMARY | 2024-08-30 15:09 | XMS_ITS | Encounter Summary ---
Author Organization [employer] Address [address] [facility] 7[address] [place] [address] Care Team Providers Care Hygiene Teacher Name Role Phone NameAneesh MD Primary Care Provider [phone] Sandra Rasheed PharmD Unavailable [phone] Reason for Visit * Consultation (Routine) - Authorized Specialty Diagnoses / Procedures Referred By Contac t Referred To Contact Pharmacy Diagnoses Type 2 diabetes mellitus with other specified complication, without long-term current use of insulin (CMS/HCC) Name, MD Aneesh [address] [place] [address] Phone: tel: fax: Referral ID Status Reason Start Date Expiration Date Visits Requested Visits Authorized [id number] Authorized Consult and Treat 05/18/2024 05/18/2025 6 6 Encounter Details Date Type Department Care Team (Latest Contact Info) Description 08/24/2024 9:00 AM EDT Telemedicine [facility] MEDICINE [address] [place] [address] Sandra Rasheed, PharmD [address] [place], [place] [phone] Type 2 diabetes mellitus with hyperglycemia (CMS/HCC) (Primary Dx); longterm (current) use of insulin (CMS/HCC); Hypertension, unspecified type; Type 2 diabetes mellitus with other specified complication, without long-term current use of insulin (CMS/HCC) Social History Tobacco [...] AM EDT documented as of this encounter Progress Notes * Sandra Rasheed PharmD - 08/24/2024 9:00 AM EDT Pharmacy Consult Visit Type: CDTM (referral expires 05/2025) Pharmacist: Sandra Rasheed PharmD Josue Gautam is a 74 y.o. year old patient here for new patient visit completed over the phone. Previously following with [facility] endocrinology but per patient today & as documented in PCP note 05/18/24 he is no longer receiving care there. Wishes to enroll in CDTM. Subjective History: General / Intake (updated 08/23/24) Allergies: is allergic to lisinopril, prednisone, and wound dressings. Read/Write: No Recent Hospitalizations: No, seen at [facility] ER 08/22 for COVID+, DVT (see TCs in chart RE: care planning) Social History as reported by patient: Tobacco: Denies Alcohol: Denies Caffeine: Denies, decaf coffee (milk & diet sugar), no soda Illicit drugs: Denies Diet: typical meals include the following Breakfast - eggs, toast, sometimes ham Lunch - sandwich Dinner - rice & beans, chicken Exercise: denies d/t back pain Adherence / patient self-management Uses medboxes from [facility] pharmacy Reports satisfaction with medboxes Denies missed doses or removing medication Refill history demonstrates adherence. OTC medication, vitamin, supplement use: Tylenol 500 mg PRN Type 2 Diabetes Regarding DM meds patient reports the following: Patient continues to use Ozmepic 0.25 mg weekly for months despite instruction from PCP to increasedose. Reviewed 0.25 mg is not a treatment dose & thus need to initiate 0.5 mg. See plan below. Using Invokana 100 mg (decrease, adjusted for renal function) since ~04/2024. Denies GAL. Continues on Toujeo 80 units at bedtime & Humalog 35 units with each meal (no recent changes) Pertinent negatives include polyuria, polydipsia, blurred vision Reports SMBG 2-3x/d. Does not have glucometer in visit but reports: FBG of 205 mg/dL yesterday. States BGs are typically ~200mg/dL. Denies recent hypoBG but reports some episodes in the highs 60s and even mid 50s historically in the setting of bolus use w/o adeuate oral intake. Patient is able to verbalize proper hypoBG treatmentplan (uses orange juice). Discussed importance of proper bolus use, with food. [facility] offered CGM with Willy 3. Patient reports poor experience previously (willy 2? vs 14d?) due to poor sensor adhesion. Discussed newer Willy 3 plus sensors are smaller, thinner with improved adhesion and comfort. Patient will consider initaition & plan is to revisit this in follow up. Hypertension Reports adherence to current regimen, as included in medbox. Pertinent negatives include chest pain, headache, blurry vision, dizziness Patient reports daily SMBP but no values to review in visit (patient cannot read/write). Objective History: Treatment history/considerations: PMH: T2DM w/ nephropathy, retinopathy; HTN, PAD, aortic stenosis, HLD, chronic constipation, GERD, NAFLD Follows with cardiology, nephrology, vascular Medication: JACQUELYN - history of angioedema requiring ICU stay. Do not retrial. ARB - did not tolerate irbesartan (reason unknown) per endo in 2022 Atorvastatin - did not tolerate d/t muscle pain per PCP note 05/20/23 SGLT2 - Jardiance 25 mg switched to Invokana 300 mg in 2020 by endocrinology. Rationale is unclear.Patient denies GAL. Recent labs: Vit B12 (if on metformin): no previous values on file, order with next labs Metformin package insert recommends monitoring every 2-3 yrs. Lab Results Component Value Date ALT 59 (H) 03/12/2024 AST 37 03/12/2024 LDLCHOLCAL 88 05/24/2024 TRIG 185 (H) 05/24/2024 K 3.9 05/24/2024 NA 140 05/24/2024 MICROALBCREU 268.4 09/02/2022 CREATININE 1.37 05/24/2024 EGFR 51 05/24/2024 HGBA1C 8.9 (A) 05/18/2024 HGBA1C 8.5 (H) 10/24/2023 HGBA1C 8.8 (A) 08/23/2023 *LFTs elevated secondary to dx of NAFLD but not requiring intervention 02/2024. Continue periodic monitoring. Recent blood pressure readings: BP Readings from Last 4 Encounters: 05/18/24 (!) 145/78 12/02/23 (!) 152/62 11/10/23 (!) 148/60 10/06/23 (!) 167/74 Pulse Readings from Last 4 Encounters: 05/18/24 76 12/02/23 78 11/10/23 82 10/06/23 83 Immunizations Due: Not discussed today (televisit) due to time constraints, although patient did recently decline all vaccines in COM. Will revisit at follow up: COVID-19 [id number] (new) HepB series (age > 59 yo with risk factor(s) [T2MD]) RSV (age 60-74 yo with risk factor(s)) Shingrix (age >50 yo) - overdue for dose #2 to complete series Preferred Pharmacy: *[facility]* [facility] - [address] [address] Assessment/Plan: Type 2 Diabetes Pharmacologic Therapy: Humalog kwikpen, inject 35 units subQ three times daily with meals Invokana 100 mg daily (max for renal function) Metformin 1000 mg twice daily with food (max dose) Ozempic 0.5 mg weekly thereafter (Tue) *discrepancy exists* Toujeo max solostar, inject 80 units subQ daily at bedtime Additional recommendations per ADA: On aspirin: Yes, for secondary prevention (dx: PAD) On statin: Yes, moderate intensity with pravastatin 40 mg On ACEI/ARB: No, hx of severe angioedema on JACQUELYN (per PCP note 05/18/24; documented lisinopril allergy). Intolerant to ARB per endo. Dental Exam in the past 6 mo: No, encouraged to schedule Eye Exam in past 12 mo: Yes, last seen at [facility] eye care 02/2024 (no ophthalmic DM complications) & has follow up 11/2024. Goals of Therapy per the ADA Standards of Medical Care in Diabetes Achieve A1c of < 7.5% while also minimizing episodes of hypoglycemia Plan: Patient instructed, as previously by PCP as well, to increase Ozempic to 0.5 mg weekly (treatment dose) starting today. Verbal counseling provided on multi-dose pen use today & he was able to repeat proper use, however, do think he would benefit from in person teaching w/ demo pen; requested pharmacy do so at next picker operator. Patient to follow up in CDTM in person in ~4 weeks for next steps. Explore re-initiation of CGM, this time with Willy 3 Explore transition to alternative SGLT2 (Farxiga? since no prior hx on this med) which would allow for maximal dosing at current eGFR whereas Invokana does not Education: Healthy diet and lifestyle. Discussed role of A1c monitoring, A1c and SMBG goals Reviewed risks of macro- and microvascular complications of uncontrolled DM. Reviewed signs, symptoms and treatments of hypoglycemia to which patient confirmed understanding. Hypertension Pharmacotherapy: Amlodipine 10 mg daily *duplication, see plan below* Chlorthalidone 50 mg daily Spironolactone 25 mg daily Verapamil SR 120 mg daily with food *duplication, see plan below* Goals of Therapy per JNC 8: Achieve BP <140/90mmHg Plan: Continue current regimen w/o change for now; no BP values to review to guide need for treatment modification. There is a alf duplication of CCB therapy - verapamil started in place of amlodipine 10 mg 08/21/18 but on 01/15/19 amlodipine 5 mg was restarted & on 09/04/23 dose was increased to 10 mg. h to confirm with PCP today. Patient encouraged to continue to SMBP daily & log results w/ the help of his spouse OR bring BPM to follow up for review. He is aware & agreeable to do so. Patient to follow up in CDTM in person in ~4 weeks for next steps. Next steps - consider titration of spironolactone. Last K+ on 08/22/24 ([facility]) was 3.6 mmol/L (WNL/lower end of normal) Education: Reviewed BP goals, patient instructed to call if extremes of BP are noted prior to next scheduled visit. documented in this encounter Plan of Treatment Upcoming Encounters Date Type Department Care Team (Late st Contact Info) Description 09/26/2024 9:00 AM EDT Medication Management [facility] MED[facility]INE [address] [place] [address] Sandra Rasheed PharmD [address] [place] [address] 09/26/2024 10:45 AM EDT Office Visit [facility] MEDICINE [address] [place] [address] Name, MD Aneesh [address] [place] [address] 11/30/2024 10:00 AM EDT Office Visit [facility] OPTOMETRY [address] [place] [address] Nathanael, Jayne, OD [address] [place] [address] documented as of this encounter Visit Diagnoses Diagnosis Type 2 diabetes mellitus with hyperglycemia (CMS/HCC)- Primary longterm (current) use of insulin (CMS/HCC) Hypertension, unspecified type Type 2 diabetes mellitus with other specified complication, without long-term current use of insulin (CMS/HCC) documented in this encounter Additional Health Concerns Assessment Noted Time PHQ-9 Depression Total Score: 4 08/23/19 24 9:44 AM EDT documented as of this encounter Care Teams Hygiene Teacher Relationship Specialty Start Date End Date Name, MD Aneesh [address] [place] [address] PCP - General Family Medicine 02/14/18 Sandra Rasheed PharmD [address] [place] [address] Pharmacist Internal Medicine 08/24/24 documented as of this encounter
--- OUTSIDE RECORDS SUMMARY | 2024-08-30 15:09 | XMS_ITS | Encounter Summary ---
Author Organization [employer] Address [address] [facility] [address] [place] [address] Care Team Providers Care Director Of Grants Name Role Phone Name, Aneesh RIVERS Primary Care Provider [phone] Sandra Rasheed PharmD Unavailable [phone] Encounter Details Date Type Department Care Team (Late st Contact Info) Description 03/23/2023 Orders Only [facility] [address] [place], [place] [phone] Amber Brantley LPN Social History Tobacco Use [...] Description 09/26/2024 9:00 AM EDT Medication Management [facility] [address] [place] [address] Sandra Rasheed PharmD [address] [place] [address] 09/26/2024 10:45 AM EDT Office Visit [facility] [address] [place] [address] Name, MD Aneesh [address] [place] [address] 11/30/2024 10:00 AM EDT Office Visit [facility] OPTOMETRY [address] [place] [address] Nathanael, Jayne, OD [address] [place] [address] documented as of this encounter Visit Diagnoses Not on filedocumented in this encounter Care Teams Director Of Grants Relationship Specialty Start Date End Date Name, MD Aneesh [address] [place] [address] PCP - General Family Medicine 02/14/18 Sandra Rasheed PharmD [address] [place] [address] Pharmacist Internal Medicine 08/24/24 documented as of this encounter
--- OUTSIDE RECORDS SUMMARY | 2024-08-30 15:09 | XMS_ITS | Encounter Summary ---
Author Organization [employer] Address [address] [facility] [address]t [place] [address] Care Team Providers Care Hack Saw Operator Name Role Phone Name, Aneesh RIVERS Primary Care Provider [phone] Sandra Rasheed PharmD Unavailable [phone] Reason for Visit * Reason Comments Med Refill Encounter Details Date Type Department Care Team ([facility] Contact Info) Description 04/09/2024 Refill [facility] [address] [place], [place] [phone] Name, MD Aneesh [address] [place] [address] Chronic low back pain, unspecified back pain [...] Description 09/26/2024 9:00 AM EDT Medication Management [facility] [address] [place] [address] Sandra Rasheed, PharmD [address] [place] [address] 09/26/2024 10:45 AM EDT Office Visit [facility] [address] [place] [address] Aneesh Oliveira MD [address] [place] [address] 11/30/2024 10:00 AM EDT Office Visit [facility] OPTOMETRY [address] [place] [address] Nathanael, Jayne, OD [address] [place] [address] documented as of this encounter Visit Diagnoses Diagnosis Chronic low back pain, unspecified back pain laterality, unspecified whether sciatica present documented in this encounter Additional Health Concerns Assessment Noted Time PHQ-9 Depression Total Score: 4 08/23/19 24 9:44 AM EDT documented as of this encounter Care Teams Hack Saw Operator Relationship Specialty Start Date End Date Aneesh Oliveira MD [address] [place] [address] PCP - General Family Medicine 02/14/18 Sandra Rasheed, Javi [address] [place] [address] Pharmacist Internal Medicine 08/24/24 documented as of this encounter
--- OUTSIDE RECORDS SUMMARY | 2024-08-30 15:09 | XMS_ITS | Encounter Summary ---
Author Organization [employer] Address [address] [facility] [address] [place] [address] Care Team Providers Care Ballpoint Pen Cartridge Tester Name Role Phone Aneesh Oliviera MD Primary Care Provider [phone] Sandra Rasheed PharmD Unavailable [phone] Reason for Referral * Imaging (Routine) - Closed Specialty Diagnoses / Procedures Referred By Contliv t Referred To Contact Cardiology Diagnoses Acute deep vein thrombosis (DVT) of distal vein of left lower extremity (CMS/HCC) Procedures Vascular US lower extremity venous duplex left Aneesh Oliveira MD [address] [place] [address] Phone: tel: fax: [address] Phone: tel: fax: Referral ID Status Reason Start Date Expiration Date V isits Requested Visits Authorized [id number] Closed Perform Procedure 08/23/2024 08/23/2025 1 1 Reason for Visit * Reason Onset Date Comments ER Follow-up 08/22/2024 Encounter Details Date Type Department Care Team (Late st Contact Info) Description 08/22/2024 Telephone [facility] [address], [place] [phone] Aneesh Olvieira MD [address] [place] [address] [id number] ER Follow-up Social History Tobacco Use Types Packs/Day Years [...] encounter Miscellaneous Notes * Telephone Encounter - Kelly Mendez RN - 08/27/2024 11:01 AM EDT Call returned to pt's daughter. Advised of PCP response to medication question. Opal verbalized understanding and expressed gratitude for the call. * Telephone Encounter - Aneesh Oliveira MD - 08/27/2024 10:37 AM EDT No. The patient has a distal calf DVT. This cannot cause a pulmonary embolism unless it expands andbecomes a proximal DVT. The recommendation is to repeat the ultrasound. Further recommendation based on the results of the repeat ultrasound. * Telephone Encounter - Kelly Mendez RN - 08/27/2024 10:23 AM EDT T/C to [facility] [place] to determine date of repeat US. Terri transferred call to [place] in centralized scheduling who states earliest available appt is 09/11/24. RN asked if pt can be scheduled sooner as repeat LLE US was recommended in 1 week per [facility] ED note 08/22/24. Pt then scheduled for 08/30/24 at1p. T/C to pt via [employer] to advise. No answer, v/m left to return call to [place] team nurses. T/C to pt's daughter. Advised pt's daughter of scheduled repeat US. Daughter agrees to advise pt. Pt's daughter Opal asking if pt should be started on a medication for DVT. Reports medsfor DVT were not started in ED. * Telephone Encounter - Aneesh Oliveira MD - 08/23/2024 6:46 AM EDT I will order repeat left left venous ultrasound for next week. Please call the patient when you have the date of the ultrasound * Telephone Encounter - Trisha Rodríguez LPN - 08/22/2024 4:45 PM EDT Attempted x 2 to reach patient Daughter Opal no answer and messages left to return call to [phone] Triage call placed with [facility] # [id number] Angelli to patient who reports confirmation of Covid today in ED. Patient with hoarse voice at time of call but reports that he feels better. Patient is drinking good amount of water and soup. Has OTC medications for treatment of symptoms. Patient reports that he is in need of referral from PCP in order to arrange follow up US of left leg due to concern in ED of DVT ( note in chart) patient called radiology and requires referral before appt can be made. Patient not placed on Paxlovid per documentation. Will continue to monitor BG at home for duration due to illness. Reviewed with patient home care recommendations, reasons to call back and symptoms that require immediate evaluation in UC or ER. Patient verbalized understanding and agrees.Patientin need of referral for US at [facility] in one week and will required ED follow up with PCP following ED visit. No appts available at time of call for Triage to book Forwarded to PCP and team as FYI to follow up PRN Protocol Used: COVID-19 - Diagnosed or Suspected (Adult) Protocol-Based Disposition: Home Care Positive Triage Question: * COVID-19 diagnosed by positive lab test (e.g., PCR, rapid self-test kit) and mild symptoms (e.g.,cough, fever, others) and no complications or SOB * All higher-acuity triage questions were negative Care Advice Discussed: * Reassurance and Education - Positive COVID-19 Lab Test and Mild Symptoms * General Care Advice for COVID-19 Symptoms * Cough Medicines * Cough Syrup With Dextromethorphan * Pain and Fever Medicines * Reasons To Call Back - Fever over 103 F (39.4 C) - Fever lasts over 3 days - Fever returns after being gone for 24 hours - Chest pain or difficulty breathing occurs - Cough or other symptoms last more than 3 weeks - You become worse * Telephone Encounter - Janis Pate - 08/22/2024 3:01 PM EDT Patient calling to report ED visit on : Date: 08/22 Hospital: [facility] Seen for: Respiratory Symptoms Symptomatic Yes *if yes message should go to Triage Patient advised will forward to team nurse for follow up [phone] Daughter documented in this encounter Plan of Treatment Upcoming Encounters Date Type Department Care Team (Late st Contact Info) Description 09/26/2024 9:00 AM EDT Medication Management [facility] [address] [place] [address] Sandra Rasheed PharmD [address] [place] [address] 09/26/2024 10:45 AM EDT Office Visit [facility] [address] [place] [address] Name, MD Aneesh [address] [place] [address] 11/30/2024 10:00 AM EDT Office Visit [facility]OM[facility] [address] [place] [address] Nathanael, Jayne, OD [address] [place] [address] documented as of this encounter Visit Diagnoses Diagnosis Acute deep vein thrombosis (DVT) of distal vein of left lower extremity (CMS/HCC)- Primary documented in this encounter Additional Health Concerns Assessment Noted Time PHQ-9 Depression Total Score: 4 08/23/19 24 9:44 AM EDT documented as of this encounter Care Teams [employer] Pen Cartridge Tester Relationship Specialty Start Date End Date Name, MD Aneesh [address] [place] [id number] PCP - General Family Medicine 02/14/18 Sandra Rasheed PharmD [address] [place] [id number] Pharmacist Internal Medicine 08/24/24 documented as of this encounter
--- OUTSIDE RECORDS SUMMARY | 2024-08-30 15:09 | XMS_ITS | Clinical Summary ---
Author Organization [employer] Address [address] [place] [address] Care Team Providers Care Field Mechanic/Site Lead Name Role Phone Name, Aneesh RIVERS Primary Care Provider [phone] Sandra Rasheed PharmD Unavailable [phone] Allergies Active Allergy Reactions Criticality Noted Date Comments Lisinopril Angioedema High 01/15/2019 IN ROUNDS 04/06, RN STATES OVERNIGHT RN REPORTED LISINOPRIL WAS DC'ED DUE TO SUSPECTED ANGIOEDEMA Prednisone Hives Low 12/08/2022 Other reaction(s): ITCHY Wound Dressings Rash Low 11/03/2022 Medications polyethylene glycol, PEG, 3350 (Glycolax) 17 GM/SCOOP powder take (17G) by oral route every day mixed with 8 oz. water, juice, soda, coffee or tea 020 Active amLODIPine (Norvasc) 10 MG tablet Take 1 tablet (10 mg) by mouth in the morning. 30 tablet 11 024 Active metFORMIN (Glucophage) 1000 MG tabletIndication s:Type 2 diabetes mellitus with other specified complication, without long-term current use of insulin ([facility]) Take 1 tablet (1,000 mg) by mouth before breakfast and before evening meal. 60 tablet 11 024 Active Aspirin Adult Low Strength 81 MG EC tablet TAKE 1 TABLET BY MOUTH EVERYDAY AT NOON 90 tablet 3 024 Active triamcinolone (Kenalog) 0.1 % cream APPLY TOPICALLY TO THE AFFECTED AREA(S) TWICE DAILY IN THE MORNING AND IN THE EVENING NEEDED FOR PAIN AND SWELLING 30 g 2 024 Active chlorthalidone (Hygroton) 50 MG tablet TAKE 1 TABLET BY MOUTH EVERY MORNING 90 tablet 2 Active clopidogrel (Plavix) 75 MG tablet Take 75 mg by mouth in the morning. Active lactulose (Chronulac) 10 GM/15ML solution TAKE [...] day. 30 tablet 11 024 2024 Active spironolactone (Aldactone) 25 MG tabletIndication s:Hypertension, [...] EVERY MORNING WITH FOOD 90 tablet Active senna (Senokot) 8.6 MG tablet Take 2 tablets by mouth Once per day. Active Reguloid 400 MG capsule Take 2 capsules by mouth 2 times daily. Active gabapentin (Neurontin) 100 MG capsuleIndicatio ns:Chronic low back pain, unspecified back pain laterality, unspecified whether sciatica present TAKE 2 CAPSULES BY MOUTH EVERY DAY AT BEDTIME 60 capsule 03/04/2 025 Active insulin lispro (HumaLOG KWIKPEN) 100 UNIT/ML injectionIndicat ions:Type 2 diabetes mellitus with hyperglycemia (CMS/HCC),meterman (current) use of insulin (CMS/HCC) Inject 35 units subQ three times daily with meals 30 mL 3 025 Active Semaglutide,0.25 or 0.5MG/DOS, (Ozempic, 0.25 or 0.5 MG/DOSE,) 2 MG/3ML solution pen-injectorIndi cations:Type 2 diabetes mellitus with hyperglycemia (CMS/HCC) Inject 0.5 mg under the skin 1 (one) time per week. 3 mL 11 025 Active insulin glargine (Toujeo Max SoloStar) 300 UNIT/ML injectionIndicat ions:Type 2 diabetes mellitus with hyperglycemia (CMS/HCC),senior living (current) use of insulin (CMS/HCC) INJECT 80 UNITS SUBCUTANEOUSLY AT BEDTIME 12 mL 2 025 Active insulin pen needle (UltiGuard SafePack Pen Needle) 32G x 4 mm miscIndications: Type 2 diabetes mellitus with hyperglycemia (CMS/HCC) Use to inject insulin 4 times daily 200 each 11 025 Active OneTouch UltraSoft 2 Lancets miscIndications: Type 2 diabetes mellitus with hyperglycemia (CMS/HCC) 1 each 3 times daily. Use to check BG three times daily 100 each 025 Active glucose blood (OneTouch Ultra) test stripIndications :Type 2 diabetes mellitus with hyperglycemia (CMS/HCC) TEST BLOOD SUGAR THREE TIMES DAILY 100 strip 025 Active Insulin Lispro 100 UNIT/ML solution inject by subcutaneous route 35u TID 2024 Discontinued Lidocaine HCl 3 % cream apply by topical route every day to the lower back area 022 2024 Discontinued(M ed list cleanup (will not trigger notification to Pharmacy)) UltiGuard SafePack Pen Needle 32G X 4 MM misc USE DIRECTED FOUR TIMES DAILY 024 2024 Discontinued(R eorder (will not trigger notification to Pharmacy)) sodium chloride ([place]) 0.65 % nasal sprayIndications :Postnasal drip Administer 1 spray into each nostril if needed for congestion. 15 mL 11 024 2024 Discontinued(M ed list cleanup (will not trigger notification to Pharmacy)) mometasone (Elocon) 0.1 % ointment Apply topically Once per day. 45 g 024 2024 Discontinued(M ed list cleanup (will not trigger notification to Pharmacy)) OneTouch UltraSoft 2 Lancets miscIndications: Type 2 diabetes mellitus with other specified complication, without long-term current use of insulin (CMS/[facility]) TEST BLOOD SUGAR THREE TIMES DAILY 100 each 11 024 2024 Discontinued(R eorder (will not trigger notification to Pharmacy)) Ozempic, 0.25 or 0.5 MG/DOSE, 2 MG/3ML solution pen-injector Inject 0.25 mg subcutaneously once a week for 4 weeks then increase to 0.5 mg once a week 2024 Discontinued(R eorder (will not trigger notification to Pharmacy)) OneTouch Ultra test strip TEST BLOOD SUGAR THREE TIMES DAILY 100 strip 11 2024 Discontinued(R eorder (will not trigger notification to Pharmacy)) gabapentin (Neurontin) 100 MG capsuleIndicatio ns:Chronic low back pain, unspecified back pain laterality, unspecified whether sciatica present TAKE 2 CAPSULES BY MOUTH AT BEDTIME 60 capsule 025 2024 Discontinued Toujeo Max SoloStar 300 UNIT/ML injectionIndicat ions:Type 2 diabetes mellitus with other specified complication, without long-term current use of insulin ([facility]) INJECT 80 UNITS SUBCUTANEOUSLY AT BEDTIME 6 mL 3 025 2024 Discontinued(R eorder (will not trigger notification to Pharmacy)) HumaLOG KWIKPEN 100 UNIT/ML injectionIndicat ions:Type 2 diabetes mellitus with hyperglycemia (CMS/[facility]),senior living (current) use of insulin (CMS/[facility]) INJECT 40 UNITS SUBCUTANEOUSLY BEFORE BREAKFAST, 35 UNITS BEFORE LUNCH, AND 35 UNITS BEFORE SUPPER 30 mL 3 025 2024 Discontinued Active Problems Problem Noted [...] Encounters Date Type Department Care Team Description 08/24/2024 9:00 AM EDT Telemedicine [facility] [address] [place] [phone] Sandra Rasheed, AnkushD Type 2 diabetes mellitus with hyperglycemia (CMS/HCC) (Primary Dx); senior living (current) use of insulin (CMS/HCC); Hypertension, unspecified type; Type 2 diabetes mellitus with other specified complication, without long-term current use of insulin (CMS/HCC) 08/22/2024 Telephone [facility] [address] [place] [address] Aneesh Oliveira MD ER Follow-up 08/22/2024 Orders Only [facility] External Provider, [facility] 08/13/2024 Refill [facility] [address] [place], [place] [phone] Sho Ramos, PATTERN DRUM MAKER Chronic low back pain, unspecified back pain laterality, unspecified whether sciatica present 07/17/2024 Telephone [facility] [address] [place] [address] Aneesh Oliveira MD Appointment Request 07/10/2024 Refill [facility] [address] [place] [address] Name, MD Aneesh Type 2 diabetes mellitus with hyperglycemia ([facility]); meterman (current) use of insulin ([facility]) 07/06/2024 Refill [facility] [address] [place] [address] Aneesh Oliveira MD Type 2 diabetes mellitus with other specified complication, without long-term current use of insulin ([facility]) 06/29/2024 Refill [facility] [address] [place] [address] Aneesh Oliveira MD Chronic constipation 06/25/2024 Refill [facility] [address] [place] [address] NameAneesh MD Hypertension, unspecified type; Prostatism; Type 2 diabetes mellitus with hyperglycemia ([facility]); meterman (current) use of insulin ([facility]) 06/24/2024 Refill [facility] [address] [place], [place] [phone] NameAneesh MD Chronic low back pain, unspecified back pain laterality, unspecified whether sciatica present; Hypertension, unspecified type; Prostatism 06/01/2024 3:30 PM EST Office Visit [facility] [address] [place] [address] NathanaelNolann, OD Both eyes affected by mild nonproliferative diabetic retinopathy with macular edema, associated with type 2 diabetes mellitus ([facility]) (Primary Dx); Epiretinal membrane, both eyes; Left retinal defect; Choroidal nevus of right eye; Raised intraocular pressure of both eyes; Pseudophakia of both eyes; Presbyopia of both eyes 06/01/2024 Travel from Last 3 Months Immunizations Name Administration [...] Description 09/26/2024 9:00 AM EDT Medication Management [facility] [address] [place] [address] Sandra Rasheed, PharmD [address] [place] [address] 09/26/2024 10:45 AM EDT Office Visit [facility] [address] [place] [address] Name, MD Aneesh [address] [place] [address] 11/30/2024 10:00 AM EDT Office Visit [facility] [address] [place] [phone] Nathanael, Jayne, OD [address] [place] [address] Health Maintenance Due Date Last Done Comments [...] TO CULTURE Routine 08/22/2024 11:15 AM EDT HIGH SENSITIVITY TROPONIN I Routine 08/22/2024 9:38 AM EDT B TYPE NATRIURETIC PEPTIDE (BNP) Routine 08/22/2024 9:38 AM EDT SLIDE REVIEW Routine 08/22/2024 9:38 AM EDT BASIC METABOLIC PANEL Routine 08/22/2024 9:38 AM EDT HEPATIC FUNCTION PANEL Routine 08/22/2024 9:38 AM EDT CBC WITH AUTO DIFFERENTIAL Routine 08/22/2024 9:38 AM EDT SARS COV2/INFLUENZA [...] 3:30 PM EST Epiretinal membrane, both eyes LIPID PANEL, STANDARD Routine 05/24/2024 8:27 AM EST On statin therapy POCT GLYCATED HEMOGLOBIN, TOTAL Routine 05/18/2024 10:47 [...] Recently Relevant to Health Maintenance Results * US VENOUS DUPLEX LE LT (08/30/2024 1:23 PM EDT) Only the most recent of2 resultswithin the time period is included. Anatomical Region Laterality Modality Abdomen Ultrasound 08/30/2024 1:23 PM EDT Narrative 08/30/2024 2:08 PM EDT ? [facility] ?[address] ?[place] [address] ? Ultrasound Report ? Signed ? Patient: Gautam Rodri,Josue ?MR#: ?? [id number] ? : 1950 ?Acct:[id number] ? Age/Sex: 74 / M ?ADM Date: 03/20/25 ? Loc: HO.US ? Attending Dr: Aneesh Oliveira MD ? Ordering Physician: Aneesh Oliveira MD ?? Date of Service: 08/30/24 ?? Procedure(s): US venous duplex LE LT ?? Accession Number(s): [id number] ? cc: Aneesh Oliveira MD ? EXAMINATION: ?? US TRIPLEX LOWER EXTREMITY, [...] DD/ 1323 ? TD/TT: 08/30/24 1343 ? Accounts Administrator: ? Procedure Note Del, Image - 08/30/2024 [place] [address] Ultrasound Report Signed Patient: Sylvia Dawson#: [id number] : 1Acct:[id number] Age/Sex: 74 / MADM Date: 08/30/24 Loc: HO.US Attending Dr: Aneesh Oliveira MD Ordering Physician: Aneesh Oliveira MD Date of Service: 08/30/24 Procedure(s): US venous duplex LE LT Accession Number(s): [id number] cc: Aneesh Oliveira MD EXAMINATION: US TRIPLEX [...] 08/30/24 1405 DD/ 1323 TD/TT: 08/30/24 1343 Accounts Administrator: us Aneesh Name IMG US PROCEDURES Final Result * (ABNORMAL) Urinalysis, Complete, with Reflex to Culture (08/22/2024 11:15 AM EDT) Color Urine Yellow [facility] Appearance Urine Clear [facility] PH 6.5 5.0 - 9.0 [facility] Glucose Urine UA >=1000(A) Negative mg/dL [facility] Urine Blood Trace(A) Negative [facility] Specific Encinal - Urine 1.020 1.005 - 1.025 [facility] Urine Protein 300 (3+)(A) Neg-Trace mg/dL [facility] Urine Ketones Negative Negative mg/dL [facility] Nitrite Urine Negative Negative [facility] Leukocyte Esterase Urine Negative Negative [facility] RBC Urine 0-2 0 - 2 /HPF [facility] Urine WBC 0-5 0 - 5 /HPF [facility] Urine Squamous Epithelial Cell 0-2 0 - 2 /HPF [facility] Urine Bacteria None Seen None Seen [facility] Hyaline Casts, Urine 0-2 0 - 2 /LPF [facility] 08/22/2024 11:1 5 AM EDT 08/22/2024 11:24 AM EDT Narrative [facility] - 08/22/2024 11:33 AM EDT [id number], Clean Catch Generic External Data Provider LAB URINE ORDERAB LES Final Result Performing Organization Address [facility] Co de Phone Number [facility] [address] [place] [phone] * Slide Review (08/22/2024 9:38 AM EDT) Slide Review VERIFIED [facility] 08/22/2024 9:38 AM EDT 08/22/2024 9:41 AM EDT Generic External Data Provider LAB BLOOD ORDERAB LES Final Result Performing Organization Address [facility] Number [facility] [address] [place] [phone] * High Sensitivity Troponin I (08/22/2024 9:38 AM EDT) Pathologist [facility] TROPONIN I HIGH SENSITIVITY 3.2 <3.5 - 35.0 ng/L [facility] Comment:The [employer] high sens itivity Troponin-I results should beused in conjunction with other diagnostic information suchas ECG, clinical observations and information, and patientsymptoms to aid in the diagnosis of AL. 08/22/2024 9:38 AM EDT 08/22/2024 9:41 AM EDT Generic External Data Provider LAB BLOOD ORDERAB LES Final Result Performing Organization Address [facility] de Phone Number [facility] [address] [place] [phone] * (ABNORMAL) CBC auto differential (08/22/2024 9:38 AM EDT) Pathologist [facility] White Blood Count 6.0 4.8 - 10.8 X10*3/uL [facility] Red Blood Count 4.78 4.60 - 5.80 X10*6/uL [facility] Hemoglobin 14.2 14.0 - 18.0 g/dl [facility] Hematocrit 41.6(L) 42.0 - 52.0 % [facility] Mean Corpuscular Volume 87.0 80.0 - 98.0 fL [facility] Mean Corpuscular Hemoglobin 29.7 27.0 - 33.0 pg [facility] Mean Corpuscular HGB Conc 34.1 31.0 - 36.0 g/dl [facility] Red Cell Distribution Width 12.9 11.0 - 16.0 % [facility] Platelet Count 233 160 - 400 X10*3/uL [facility] Mean Platelet Volume 10.1 9.4 - 12.4 fL [facility] Neutrophils Percent Auto 53.6 45 - 73 % [facility] Imm Gran Pct Auto 1.0(H) 0.0 - 0.4 % [facility] Lymphocytes Percent Auto 18.7(L) 20 - 40 % [facility] Monocytes Percent Auto 20.7(H) 2 - 11 % [facility] Eosinophils Percent Auto 5.0(H) 0 - 4 % [facility] Basophils Percent Auto 1.0 0 - 2 % [facility] NRBC Pct Auto 0.0 0.0 - 0.2 /100WBC [facility] Neutrophils Absolute Auto 3.2 2.0 - 8.3 x10*3/uL [facility] Imm Gran Abs Auto 0.06(H) 0.00 - 0.03 X10*3/uL [facility] Lymphocytes Absolute Auto 1.1(L) 1.2 - 4.9 X10*3/uL [facility] Monocytes Absolute Auto 1.2 0.1 - 1.2 X10*3/uL [facility] Eosinophils Absolute Auto 0.3 0.0 - 0.4 X10*3/uL [facility] Basophils Absolute Auto 0.1 0.0 - 0.2 X10*3/uL [facility] NRBC Abs Auto 0.000 0.0 - 0.012 X10*3/uL [facility] 08/22/2024 9:38 AM EDT 08/22/2024 9:41 AM EDT us Generic External Data Provider LAB BLOOD ORDERAB LES Edited Result - Final Performing Organization Address [facility]/ZIP Co de Phone Number [facility] [address] [place] [phone] * B Type Natriuretic Peptide (BNP) (08/22/2024 9:38 AM EDT) B Type Natriuretic Peptide 24 <100 pg/mL [facility] 08/22/2024 9:38 AM EDT 08/22/2024 9:41 AM EDT us Generic External Data Provider LAB BLOOD ORDERAB LES Final Result Performing Organization Address [facility] Co de Phone Number [facility] [address] [place] [phone] * (ABNORMAL) Hepatic Function Panel (08/22/2024 9:38 AM EDT) Bilirubin, Total 0.4 0.0 - 1.0 mg/dL [facility] Bilirubin, Direct 0.1 0.0 - 0.5 mg/dL [facility] Aspartate Amino Transferase 33 5 - 37 U/L [facility] Alanine Aminotransferase 48(H) 0 - 40 U/L [facility] Total Protein 7.6 6.5 - 8.0 g/dL [facility] Albumin Level 3.5 3.5 - 5.0 g/dL [facility] Alkaline Phosphatase 70 39 - 117 U/L [facility] 08/22/2024 9:38 AM EDT 08/22/2024 9:41 AM EDT us Generic External Data Provider LAB BLOOD ORDERAB LES Final Result Performing Organization Address City/[facility]/ZIP Co de Phone Number [facility] [address] [place] [phone] * (ABNORMAL) Basic Metabolic Panel (08/22/2024 9:38 AM EDT) Pathologist [facility] Sodium 136 135 - 145 mmol/L [facility] Potassium 3.6 3.3 - 5.1 mmol/L [facility] Chloride 101 96 - 108 mmol/L [facility] Carbon Dioxide 28 22 - 29 mmol/L [facility] Anion Gap 11(L) 12 - 20 [facility] Urea Nitrogen (BUN) 21(H) 9 - 16 mg/dL [facility] Creatinine, Serum 1.21 0.5 - 1.4 mg/dL [facility] Creatinine Clr Calc Pharmacy 58.5 [facility] Comment:eGFR (calculated fro m the MDRD study equation) and eCrCl(calculated from the Cockcroft-Gault equation) are based ondifferent parameters and may not yield comparable results.If eCrCl result is absurd, please check patient'sheight/weight. Estimated Glomerular Filt Rate 59 [facility] Comment:Chronic Kidney Disea se: Estimated GFR < 60 mL/min/1.56m0Ycqggn Kidney Disease: Estimated GFR < 15 mL/min/1.73m2 Glucose 343(H) 60 - 115 mg/dL [facility] Calcium 9.5 8.4 - 10.2 mg/dL [facility] 08/22/2024 9:38 AM EDT 08/22/2024 9:41 AM EDT us Generic External Data Provider LAB BLOOD ORDERAB LES Final Result [facility] [address] [place] [phone] * (ABNORMAL) SARS-CoV-2 RNA, Influenza A/B, and RSV RNA, Ql NAAT (08/22/2024 9:35 AM EDT) Pathologist [facility] Influenza A PCR NEGATIVE Negative [facility] Influenza B PCR NEGATIVE Negative [facility] Resp Syncy Virus RNA Qual PCR NEGATIVE Negative [facility] SARS COV2 PCR POSITIVE(A) Negative [facility] Comment:All test results mus t [...] use by authorized laboratories.Testing performed on the [employer] GeneXpert utilizingreal-time RT-PCR.All SARS CoV2 and positive influenza A/B results arereported to [facility]. 08/22/2024 9:35 AM EDT 08/22/2024 9:41 AM EDT Generic External Data Provider LAB MICROBIOLOGY - GENERAL ORDERABLES Final Result [facility] [address] [place] [address] [phone] * CT Abdomen Pelvis w/o Contrast (08/22/2024 8:58 AM EDT) Anatomical Region Laterality Modality Body, Pelvis, Abdomen Computed T omography 08/22/2024 8:58 AM EDT Narrative 08/22/2024 9:14 AM EDT ? [facility] ?[address] ?[place] [address] ? CT Scan Report ? Signed ? Patient: Josue Dawson ?MR#: ?? [id number] ? : 1950 ?Acct:[id number] ? Age/Sex: 74 / M ?ADM Date: 03/12/25 ? Loc: HO.ED ? Attending Dr: ? Ordering Physician: Alina Odom MD ?? Date of Service: 08/22/24 ?? Procedure(s): CT abdomen pelvis wo IV con ?? Accession Number(s): [id number] ? cc: Alina Odom MD; Name,Aneesh RIVERS ? Report Number: ?? [id number]: Total DLP = ??751.00 mGy-cm ?? EXAMINATION: [...] 08/22/24 0910 ? DD/ 0858 ? TD/TT: 08/22/24857 ? Accounts Administrator: ? Procedure Note Hannah Mathis - 08/22/[address] [address] Scan Report Signed Patient: Josue Dawson#: [id number] : 1950cct:[id number] Age/Sex: 74 / MADM Date: 08/22/24 Loc: HO.ED Attending Dr: Ordering Physician: Alina Odom MD Date of Service: 08/22/24 Procedure(s): CT abdomen pelvis wo IV con Accession Number(s): [id number] cc: Alina Odom MD; Name,Aneesh RIVERS Report Number: [id number]: Total DLP = 751.00 mGy-cm EXAMINATION: CT [...] OV> 08/22/24 0910 DD/ 7 TD/TT: 08/22/24857 Accounts Administrator: [facility] External Provider IMG CT PROCEDURES Final Result * XR Chest 1 View (08/22/2024 8:44 AM EDT) Anatomical Region Laterality Modality Chest Radiographic Trang ging 08/22/2024 8:44 AM EDT Narrative 08/22/2024 9:24 AM EDT ? [facility] ?[address] ?[place] [address] ?XRay Report ? Signed ? Patient: Gautam RodriOjsue ?MR#: ?? [id number] ? : 1950 ?Acct:[id number] ? Age/Sex: 74 / M ?ADM Date: 08/22/24 ? Loc: HO.ED ? Attending Dr: ? Ordering Physician: Alina Odom MD ?? Date of Service: 08/22/24 ?? Procedure(s): XR chest 1V ?? Accession Number(s): [id number] ? cc: Alina Odom MD; Name,Aneesh RIVERS [...] 0920 ? DD/ 0844 ? TD/TT: 08/22/24 09 ? Accounts Administrator: ? Procedure Note Donotpatriciainterpreter, Image - 08/22/[address] [address] XRay Report Signed Patient: Josue DawsonMR#: [id number] : 1950cct:[id number] Age/Sex: 74 / MADM Date: 08/22/24 Loc: HO.ED Attending Dr: Ordering Physician: Alina Odom MD Date of Service: 08/22/24 Procedure(s): XR chest 1V Accession Number(s): [id number] cc: Alina Odom MD; Name,Aneesh RIVERS EXAMINATION: [...] MD in OV> 08/22/24919 DD/ 3 TD/TT: 08/22/24900 Accounts Administrator: [facility] External Provider IMG XR PROCEDURES Final Result * [facility] US Lower Extremity Arterial Duplex Bilateral With Baylee (06/20/2024 1:51 PM EST) 06/20/2024 1:51 PM EST Narrative [facility] - 06/20/2024 1:53 PM EST ? [facility] ?[address] ?[place] [address] ? Ultrasound Report ? Signed ? Patient: Gautam,Josue ?MR#: [id number] ?? [id number] ? : 1950 ?Acct:[id number] ? Age/Sex: 73 / M ?ADM Date: 06/18/24 ? Loc: HO.US ? Attending Dr: Rodney Smith MD ? Ordering Physician: Rodney Smith MD ?? Date of Service: 06/18/24 ?? Procedure(s): US arterial duplex BI w/ BAYLEE ?? Accession Number(s): [id number] ? cc: Rodney Smith MD; Name,Aneesh RIVERS [...] DD/ 1351 ? TD/TT: 06/20/24 1351 ? Accounts Administrator: ? Procedure Note Donjuanter, Image - 06/20/[address] [address] Ultrasound Report Signed Patient: Sylvia Gautam#: [id number] : 1Acct:[id number] Age/Sex: 73 / MADM Date: 06/18/24 Loc: HO.US Attending Dr: Rodney Smith MD Ordering Physician: Rodney Smith MD Date of Service: 06/18/24 Procedure(s): US arterial duplex BI w/ BAYLEE Accession Number(s): [id number] cc: Rodney Smith MD; Name,Aneesh RIVERS CLINICAL [...] 06/20/24 1353 DD/ 1351 TD/TT: 06/20/24 1351 Accounts Administrator: [facility] External Provider CV VASC ULAR PROCEDURES Edited Result - Final [facility] [address] [place] [phone] * OCT, Retina - OU - [...] 8:27 AM EST) Triglycerides 185(H) <150 mg/dL [facility] Comment:Desirable Triglyceri de: less than 150 mg/dLBorderline High Triglyceride 150-199 mg/dLHigh Triglyceride: 200-499 mg/dLVery High Triglyceride: greater than or equal to 5OO mg/dL Cholesterol 162 <200 mg/dL [facility] Comment:Desirable Cholestero l: less than 200 mg/dLBorderline High Cholesterol: 200-239 mg/dLHigh Cholesterol: greater than 239 mg/dL LDL Cholesterol Calculated 88 <100 mg/dL [facility] Comment:Desirable LDL: less than 100 mg/dLNear Optimal/Above Optimal LDL: 110- 129 mg/dLBorderline High LDL: 130-159 mg/dLHigh LDL: 160-189 mg/dLVery High LDL: greater than or equal to 190 mg/dL HDL Cholesterol 37(L) >40 mg/dL [facility] Comment:Desirable HDL: great er than 40 mg/dL Note: This HDL assay may give artificially low results in patients with liver disease. Blood Venous blood specimen / Unknown 05/24/2024 8:27 AM EST 05/24/2024 8:27 AM EST Aneesh Oliveira MD LAB BLOOD ORDERABLES Final Resul t [facility] [address] [place] [address] [phone] * (ABNORMAL) POCT HGB A1C (05/18/2024 10:47 AM EST) Hemoglobin A1C 8.9(A) 4.0 - 6.0 % Blood 05/18/2024 10:4 7 AM EST us Aneesh Oliveira MD POINT OF CARE TEST ENTER/EDIT OR DERABLES Final Result * (ABNORMAL) Hm Colonoscopy (02/10/2023) Colonoscopy Abnormal(A ) Normal us Aneesh Oliveira MD HEALTH MAINTENANCE Final Result * HEPATITIS C AB W/REFL TO HCV RNA, QN, PCR (11/25/2020 10:49 AM EDT) HEPATITIS C ANTIBODY NON-REACT TOM NON-REACT TOM [facility] INDEX 0.00 <1.00 [facility] Comment: ?? HCV antibody was non-reactive. There is no laboratory ?? evidence of HCV infection. ?? In most cases, no further action is required. However, if recent HCV exposure is suspected, a test for HCV RNA (test code 58521) is suggested. ?? For additional information please refer to http://education.[employer]/faq/UOR32i1 (This link is being provided for informational/ educational purposes only.) ?? 11/25/2020 10:4 9 AM EDT us Aneesh Oliveira MD HISTORICAL/NON ORDERABLE LABS Fi nal Result [facility] [address] from Last 3 Months or Most Recently Relevant to Health Maintenance Insurance [facility] STANDARD [facility] DUAL COMPLETE DENTAL - [facility] Care Teams Field Mechanic/Site Lead Relationship Specialty Start Date End Date Name, MD Aneesh [address] [place] [address] PCP - General Family Medicine 02/14/18 Sandra Rasheed PharmD [address] [place] [address] Pharmacist Internal Medicine 08/24/24
--- OUTSIDE RECORDS SUMMARY | 2024-08-30 15:09 | XMS_ITS | Encounter Summary ---
Author Organization [employer] Address [address] [facility] 7t [place] [address] Care Team Providers Care Quantity Surveyor Name Role Phone Name, Aneesh RIVERS Primary Care Provider [phone] Sandra Rasheed PharmD Unavailable [phone] Reason for Visit * Reason Comments Med Refill Encounter Details Date Type Department Care Team ([facility] st Contact Info) Description 06/25/2024 Refill [facility] [address] [place] [address] Name, MD Aneesh [address] [place] [address] Hypertension, unspecified type; Prostatism; Type 2 diabetes mellitus with hyperglycemia ([facility]/HCC); 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 ([facility]) Social History Tobacco Use Types Packs/Day [...] Description 09/26/2024 9:00 AM EDT Medication Management [facility] [address] [place] [address] Sandra Rasheed, PharmD [address] [place] [address] 09/26/2024 10:45 AM EDT Office Visit [facility] [address] [place] [address] Name, MD Aneesh [address] [place] [address] 11/30/2024 10:00 AM EDT Office Visit [facility] OPTOMETRY [address] [place] [address] Jayne Huffman, BRYANT [address] [place] [address] documented as of this encounter Visit Diagnoses Diagnosis Hypertension, unspecified type Prostatism Unspecified hyperplasia of prostate without urinary obstruction and other lower urinary tract symptoms (LUTS) Type 2 diabetes mellitus with hyperglycemia (CMS/HCC) 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
--- OUTSIDE RECORDS SUMMARY | 2024-08-30 15:09 | XMS_ITS | Encounter Summary ---
Author Organization [employer] Address [address] [facility] 7t [place] [address] Care Team Providers Care Dust Collector Ore Crushing Name Role Phone Name, Aneesh RIVERS Primary Care Provider [phone] Sandra Rasheed PharmD Unavailable [phone] Reason for Visit * Reason Onset Date Comments Appointment Request 07/17/2024 Encounter Details Date Type Department Care Team ([facility] st Contact Info) Description 07/17/2024 Telephone [facility] [address] [place], [place] [phone] Name, MD Aneesh [address] [place] [address] Appointment Request Social History Tobacco Use Types [...] r/s apt for 07/17/24. Contact pt at [phone] documented in this encounter Plan of Treatment Upcoming Encounters Date Type Department Care Team ([facility] st Contact Info) Description 09/26/2024 9:00 AM EDT Medication Management [facility] [address] [place] [phone] Sandra Rasheed, PharmD [address] [place] [address] 09/26/2024 10:45 AM EDT Office Visit [facility] [address] [place] [address] Name, MD Aneesh [address] [place] [address] 11/30/2024 10:00 AM EDT Office Visit [facility] OPTOMETRY [address] [place] [address] Jayne Huffman, OD [address] [place] [address] documented as of this encounter Visit Diagnoses Not on filedocumented in this encounter Additional Health Concerns Assessment Noted Time PHQ-9 Depression Total Score: 4 08/23/19 24 9:44 AM EDT documented as of this encounter Care Teams Dust Collector Ore Crushing Relationship Specialty Start Date End Date Name, MD Aneesh [address] [place] [address] PCP - General Family Medicine 02/14/18 Sandra Rasheed PharmD [address] [place] [address] Pharmacist Internal Medicine 08/24/24 documented as of this encounter
--- OUTSIDE RECORDS SUMMARY | 2024-08-30 15:09 | XMS_ITS | Encounter Summary ---
Author Organization [employer] Address [address] [facility] 7t [place] [address] Care Team Providers Care Enterprise Resource Analyst Name Role Phone Name, Aneesh RIVERS Primary Care Provider [phone] Sandra Rasheed PharmD Unavailable [phone] Reason for Visit * Reason Comments Med Refill Encounter Details Date Type Department Care Team ([facility] st Contact Info) Description 08/19/2023 Refill [facility] [address] [place], [place] [phone] Name, MD Aneesh [address] [place] [address] Social History Tobacco Use Types Packs/Day Years [...] Description 09/26/2024 9:00 AM EDT Medication Management [facility] MED[facility]INE [address] [place] [address] Sandra Rasheed PharmD [address] [place] [address] 09/26/2024 10:45 AM EDT Office Visit [facility] MED[facility] [address] [place] [address] Name, MD Aneesh [address] [place] [address] 11/30/2024 10:00 AM EDT Office Visit [facility] OPTOMETRY [address] [place] [address] Nathanael, Janye, OD [address] [place] [address] documented as of this encounter Visit Diagnoses Not on filedocumented in this encounter Care Teams Enterprise Resource Analyst Relationship Specialty Start Date End Date Name, MD Aneesh [address] [place] [address] PCP - General Family Medicine 02/14/18 Sandra Rasheed, PharmD [address] [place] [address] Pharmacist Internal Medicine 08/24/24 documented as of this encounter
--- OUTSIDE RECORDS SUMMARY | 2024-08-30 15:09 | XMS_ITS | Encounter Summary ---
Author Organization [employer] Address [address] [facility] 7t [place] [address] Care Team Providers Care Dock Operations Supervisor Name Role Phone Name, Aneesh RIVERS Primary Care Provider [phone] Sandra Rasheed PharmD Unavailable [phone] Reason for Visit * Reason Comments Med Refill Encounter Details Date Type Department Care Team ([facility] st Contact Info) Description 08/18/2023 Refill [facility] MED[facility]INE [address] [place], [place] [phone] Name, MD Aneesh [address] [place] [address] Social History Tobacco Use Types Packs/Day Years [...] Description 09/26/2024 9:00 AM EDT Medication Management [facility] MED[facility]INE [address] [place] [address] Sandra Rasheed PharmD [address] [place] [address] 09/26/2024 10:45 AM EDT Office Visit [facility] MED[facility] [address] [place] [address] Name, MD Aneesh [address] [place] [address] 11/30/2024 10:00 AM EDT Office Visit [facility] OPTOMETRY [address] [place] [address] Nathanael, Jayne, OD [address] [place] [address] documented as of this encounter Visit Diagnoses Not on filedocumented in this encounter Care Teams Dock Operations Supervisor Relationship Specialty Start Date End Date Name, MD Aneesh [address] [place] [address] PCP - General Family Medicine 02/14/18 Sandra Rasheed PharmD [address] [place] [address] Pharmacist Internal Medicine 08/24/24 documented as of this encounter
--- OUTSIDE RECORDS SUMMARY | 2024-08-30 15:09 | XMS_ITS | Encounter Summary ---
Author Organization [employer] Address [address] [facility] 7t [place] [address] Care Team Providers Care Cylinder Sander Operator Name Role Phone Name, Aneesh RIVERS Primary Care Provider [phone] Sandra Rasheed PharmD Unavailable [phone] Reason for Visit * Reason Onset Date Comments FYI 08/23/2023 Encounter Details Date Type Department Care Team ([facility] st Contact Info) Description 08/23/2023 Telephone [facility] MED[facility]INE [address] [place] [address] Name, MD Aneesh [address] [place] [address] FYI Social History Tobacco Use Types Packs/Day [...] 3:03 PM EDT Tc from Leidy with [place] [facility] stating pt no longer wants to continue care with them. Leidy stated pt no showed 3 appts in a row and when asked about it pt said it was due to to transportation. Pt claims they are irresponsible and that they don't communicate. Pt stated he will continue care with PCP. If any questions please contact Leidy at [phone]. documented in this encounter Plan of Treatment Upcoming Encounters Date Type Department Care Team ([facility] st Contact Info) Description 09/26/2024 9:00 AM EDT Medication Management [facility] MED[facility] [address] [place] [address] Sandra Rasheed, PharmD [address] [place] [address] 09/26/2024 10:45 AM EDT Office Visit [facility] MEDICINE [address] [place] [address] Name, MD Aneesh [address] [place] [address] 11/30/2024 10:00 AM EDT Office Visit [facility] OPTOMETRY [address] [place] [address] Nathanael, Jayne, OD [address] [place] [address] documented as of this encounter Visit Diagnoses Not on filedocumented in this encounter Additional Health Concerns Assessment Noted Time PHQ-9 Depression Total Score: 4 08/23/19 24 9:44 AM EDT documented as of this encounter Care Teams Cylinder Sander Operator Relationship Specialty Start Date End Date Name, MD Aneesh [address] [place] [address] PCP - General Family Medicine 02/14/18 Sandra Rasheed PharmD [address] [place] [address] Pharmacist Internal Medicine 08/24/24 documented as of this encounter
== END 2024-08-30 12:47 | disposition home or self-care (01) ==
LOC: HO.US 12:46
PROVIDERS: PCP Internal Medicine Geriatric Medicine; Visit Provider Internal Medicine Geriatric Medicine
DX: I82.422 Acute embolism and thrombosis of left iliac vein (principal)
CPT/HCPCS: 93971

== ENCOUNTER → 2024-08-30 13:23 | Outpatient (BNV) | payer OTHER, SELFPAY | PROVIDERS: PCP Internal Medicine Geriatric Medicine; Visit Provider Radiology Diagnostic Radiology | DX: I82.442 Acute embolism and thrombosis of left tibial vein (principal) | CPT/HCPCS: 93971 ==

== ENCOUNTER 2024-09-05 10:32 | Outpatient (AMB) | payer OTHER, SELFPAY ==
--- NOTE | 2024-09-05 10:34 | A.OFFVIS_ITS ---
Vital Signs 09/05/24 10:53 Height 5 ft 6 in Weight 211 lb 10.3 oz BMI 34.2 BP 176/71 H Blood Pressure Location Lt brachial Position Sitting Pulse 73 Intake Visit Reasons: CIC Intake Note: Josue presents in the office as a follow up for CIC. CC: He states that he is having pains on the LUQ. Denies irregular bowel movements. Automatic Trimming Sewer Required: Yes Allergies lisinopril [LISINOPRIL] Allergy (Severe, Verified 09/05/24 10:54) ANGIOEDEMA prednisone [PREDNISONE] Allergy (Mild, Verified 09/05/24 10:54) ITCHY HPI Comments Details: 73 y.o M with PMH of [facility] (last calcium in 05/2024 normal), T2DM, basal cell cancer, diverticulosis, who is here for follow up. Prev [facility] patient. Reports longstanding issues with constipation x years. Reports 3 BMs per week which are small and hard. Has to strain considerably with splinting and digitalization. Assoc with left sided pain and cramping which doesnt change with defecation. Diet: mainly toast, cheese, rice and beans. Limited salads/vegetables/fiber intake. Current meds: - lactulose - miralax Last colo 2022: BBPS 11/19. 12 mm cecal TA. Diverticulosis, hemorrhoids. Repeat recommended in 3 years. 09/05/24: Here for follow up. Seen with a shipping assistant. Reports marked improvement in constipation and l sided pain. Interestingly only change from last time is addition of fiber. Otherwise didnt think miralax helped much and is back on lactulose. Never took senna. Pt also with fatty liver. CT abd/pel 08/2024 with steatosis. Done without contrast. BMI 34. Uncontrolled DM. Cholesterol better. Fib 4 1.51. [facility] Medical History NAFLD (nonalcoholic fatty liver disease) Transaminitis Basal cell carcinoma (BCC) Skin lesion of left lower extremity Heart murmur Familial hypocalciuric hypercalcemia Multinodular thyroid Vitamin D deficiency HLD (hyperlipidemia) HTN (hypertension) T2DM (type 2 diabetes mellitus) Surgical History Hx of melanoma excision Hx of esophagogastroduodenoscopy Hx of colonoscopy Hx of appendectomy Hx of cholecystectomy Family History Father CVD (cardiovascular disease) Diabetes Brother CVD (cardiovascular disease) Diabetes FH: heart attack Social History Household Members: Family Housing: House Do you presently have visiting nurse or other home services: Yes (visiting nurse 2x week) Alcohol intake: never Patient Tobacco Use Status: Never used Tobacco service: No Current occupational status: unemployed Review of Systems Const All systems reviewed & are unremarkable except as noted in HPI and below Physical Exam Vital Signs: Last Vital Signs Pulse 73 09/05/24 10:53 BP 176/71 H 09/05/24 10:53 BMI result Body Mass Index 34.2 No apparent distress Nonicteric Abdomen soft, nondistended Alert and oriented x3, uses cane to ambulate Assessment & Plan Assessment & Plan (1) Constipation: Code(s): K59.00 - Constipation, unspecified Category: Medical (2) Diverticulosis of colon: Code(s): K57.30 - Diverticulosis of large intestine without perforation or abscess without bleeding Category: Medical (3) History of colon polyps: Code(s): Z86.010 - Personal history of colon polyps Category: Medical (4) NAFLD (nonalcoholic fatty liver disease): Code(s): K76.0 - Fatty (change of) liver, not elsewhere classified Category: Medical Plan 1. CIC/diverticular disease Reports improvement with essentially fiber alone. Did not get to make other changes previously outlined. Plan - OK to cont same regimen - If has worsening left sided cramping would recommend discontinuing lactulose. - Cont miralax - Tiffanie take senna 2 tabs if no BM > 3 days. - Elevate legs while having a BM - can use step stool 2. MAFLD/MASH Fib 4 elevated 1.51. Plan: - US liver with elastography ordered - Pt also counseled on improved glycemic control - Will check updated lipid panel and A1c before next visit 3. Hx of polyps Had 12 mm tubular adenoma in 2022. Repeat colo due in 2025. Follow up 3 months Orders: Orders Complete Blood Count no Diff 3 Months K76.0 - Fatty (change of) liver, not elsewhere classified Prothrombin Time INR 3 Months K76.0 - Fatty (change of) liver, not elsewhere classified Lipid Panel 3 Months K76.0 - Fatty (change of) liver, not elsewhere classified US abdomen comp w elastography Today K76.0 - Fatty (change of) liver, not elsewhere classified Comprehensive Met. Panel 3 Months K76.0 - Fatty (change of) liver, not elsewhere classified Hemoglobin A1c 3 Months K76.0 - Fatty (change of) liver, not elsewhere clas sified Coding Level of Care Code Est Pt Level 4 (53621) Diagnoses Constipation K59.00 Diverticulosis of colon K57.30 History of colon polyps Z86.010 NAFLD (nonalcoholic fatty liver disease) K76.0
[2024-09-05 10:53] VITALS: BP 176/71; PULSE 73; BMI 34.2
--- OUTSIDE RECORDS SUMMARY | 2024-09-05 12:23 | XMS_ITS | Data Portability ---
Author Organization [place] [facility], [facility]ergy Address [address] [address] Care Team Providers Care Head Of Drama Name Role Phone NAME, LAURENT Primary Care [...] vocal quality. I recommended he see a sustainability analyst, voice specalist, to evaluate him and see if he would be a good candidate for a more permanent medialization procedure. Patient is willing and interested to travel to [place] to hear options. - Referral to [facility] - Dr. Stafford or Dr. Machuca for discussion [email or web address] Not available 05/04/2024 08:27:45 Plan of Treatment Reminders Order Date Submit Date Provider Last Modified By Organization Details Last Modified Time Details Appointments None recorded. Lab None recorded. Referral otolaryngol ogist referral - Attn: Betsy. Dr. Machuca or Dr. Stafford - bilateral vocal cord paralysis. 2023 024 2 [facility], [address], [place], [address], 4 10:41:11 Procedures None recorded. Surgeries None recorded. Imaging None recorded. Medication Orders None recorded. Patient TargetsNo targets recorded. Patient InstructionsNo instructions recorded. Reason for Referral News Cameraman Referral fo r Dysphonia Attn: Birgit. Dr. Machuca or Dr. Stafford - bilateral vocal cord paralysis. Referring Physician: Ryan Maya, Otolaryngology, Encounter Date: 05/03/2024 Problems Name Problem SNOMED Code Status Onset Date Resolution Date Notes Provider Name and Address Organization Details Recorded Time Paralysis of larynx 15464242 Active 2018 Paralysis of vocal cords and larynx, unspecifie d; Note: Date Diagnosed: 12/25/2018 2:49 PM (J38.00) Not Available [facility] 4 03:24:49 Dysphonia 66044779 Active 2018 Hoarseness ; Note: Date Diagnosed: 12/25/2018 2:49 PM (R49.0) Not Available [facility] 4 03:24:49 Simple goiter 618458795 Active 2018 Goiter NOS; Note: Date Diagnosed: 12/25/2018 2:49 PM (E04.9) Not Available [facility] 4 03:24:49 Paralysis of larynx 04351713 Active 2023 RYAN MAYA MD [address] [place] [address], [phone] , [facility] 4 08:24:41 Problem Notes None recorded. Procedures Surgical History Date Name Laterality Status Provider Name and Address Organization Details Recorded Time 05/03/20 24 Fiberoptic Laryngoscopy (Comprehensive) completed RYAN MAYA MD [address] [place] [address], [phone], [facility] 05/04/2024 08:24:07 Imaging Results None recorded. Procedure [...] Updated DateTime 05/03/2024 167.64 cm 34.7 kg/m2 92826.36 g Natalilinda Ramírez [place] [facility] 05/03/2024 13:28:04 Social History None recorded. Functional Status None recorded. Mental Status None recorded. Family History Nothing Reported. Medical History No medical history recorded. Past Encounters Encounter ID Performer Location Encounter Start Date Encounter Closed Date Diagnosis/Indication Diagnosis SNOMED-CT Code Diagnosis ICD10 Code Diagnosis Note [id number] RYAN MAYA MD [facility] [address] [address] 05/03/2024 13:04:26 05/03/2024 16:54:58 Paralysis of larynx 74015177 J38.02 Dysphonia 41460148 R49.9 Health Concerns Section Related Observation LastModified by Organization Detai ls LastModified Time None Recorded Concern Status LastModified by Organization Details LastModified Time None Recorded Advance Directives Directive None Recorded Payers Encounter Date Sequence Insurance Name Policy Number Policy Hood Covered Member ID Hood Member ID Guarantor Name 05/03/2024 1 [facility] (MEDICARE REPLACEMENT/ ADVANTAGE - HMO) Josue Mace [id number] Josue Mace 05/03/2024 2 [place] [facility] Josue Mace [id number] Josue Mace Notes Date Note Type Note Provider Name and Address Organization Details Recorded Time 05/03/2024 text/html 73yo gentleman rodrigo miguel presents today for evaluation of bilateral vocal cord paralysis and dysphonia. He has had difficulty with his voice for about 5 years. He underwent a traumatic intubation at [facility] in 2018 in the setting of an anaphylactic event. Following, this resulted in dysphonia and dyspnea with exertion. He was seen by otolaryngology in [place] - Dr. John Coppola. At that time, [...] aspirin 81 & clopidogrel. RYAN MAYA MD [address] [place] [address], [phone], [facility] 05/04/2024 20:31:01
--- OUTSIDE RECORDS SUMMARY | 2024-09-05 12:23 | XMS_ITS | Clinical Summary ---
Author Organization [facility] Address [address] [facility] [address] [place] [address] [place] [address] Phone Care Team Providers Care High Wire Artist Name Role Phone Name, Aneesh RIVERS Primary Care Provider [phone] Allergies Active Allergy Reactions Criticality Noted Date [...] Vaccine (#1) 2024 8, 05/17/2016, 05/11/[address] [facility] DUAL [place] [facility] [employer] Care Teams High Wire Artist Relationship Specialty Start Date End Date Name, MD Aneesh [address] [place] [address] PCP - General 06/23/20
--- OUTSIDE RECORDS SUMMARY | 2024-09-05 12:23 | XMS_ITS | Encounter Summary ---
Author Organization [employer] Address [address] [facility] 7t [place] [address] Care Team Providers Care Gold Wheel Blocker And Polisher Name Role Phone Name, Aneesh RIVERS Primary Care Provider [phone] Sandra Rasheed PharmD Unavailable [phone] Reason for Visit * Reason Comments Med Refill Encounter Details Date Type Department Care Team ([facility] st Contact Info) Description 01/12/2024 Refill [facility] MED & PEDS [address] [place], [place] [phone] Name, MD Aneesh [address] [place] [address] Chronic low back pain, unspecified back pain [...] Description 09/26/2024 9:00 AM EDT Medication Management [facility] MEDICINE [address] [place] [address] Sandra Rasheed, PharmD [address] [place] [address] 09/26/2024 10:45 AM EDT Office Visit [facility] MEDICINE [address] [place] [address] Aneesh Oliveira MD [address] [place] [address] 11/30/2024 10:00 AM EDT Office Visit [facility] OPTOMETRY [address] [place] [address] Nathanael, Jayne, OD [address] [place] [address] documented as of this encounter Visit Diagnoses Diagnosis Chronic low back pain, unspecified back pain laterality, unspecified whether sciatica present documented in this encounter Additional Health Concerns Assessment Noted Time PHQ-9 Depression Total Score: 4 08/23/19 24 9:44 AM EDT documented as of this encounter Care Teams Gold Wheel Blocker And Polisher Relationship Specialty Start Date End Date Aneesh Oliveira MD [address] [place] [address] PCP - General Family Medicine 02/14/18 Sandra Rasheed, Javi [address] [place] [address] Pharmacist Internal Medicine 08/24/24 documented as of this encounter
--- OUTSIDE RECORDS SUMMARY | 2024-09-05 12:23 | XMS_ITS | Encounter Summary ---
Author Organization [employer] Address [address] [facility] [address] 7[address] [place] [address] Care Team Providers Care Credit Consultant Name Role Phone Name, Aneesh RIVERS Primary Care Provider [phone] Sandra Rasheed PharmD Unavailable [phone] Encounter Details Date Type Department Care Team (Late st Contact Info) Description 03/23/2023 Orders Only [facility] CHC MED & PEDS [address] [place], [place] [phone] Amber Brantley LPN Social History Tobacco Use [...] 9:00 AM EDT Medication Management [facility] MEDICINE [address] [place] [address] Sandra Rasheed PharmD [address] [place] [address] 09/26/2024 10:45 AM EDT Office Visit [facility] MEDICINE [address] [place] [address] Name, MD Aneesh [address] [place] [address] 11/30/2024 10:00 AM EDT Office Visit [facility] OPTOMETRY [address] [place] [address] Nathanael, Jayne, OD 230 [place] [address] documented as of this encounter Visit Diagnoses Not on filedocumented in this encounter Care Teams Credit Consultant Relationship Specialty Start Date End Date Name, MD Aneesh [address] [place] [address] PCP - General Family Medicine 02/14/18 Sandra Rasheed PharmD [address] [place] [address] Pharmacist Internal Medicine 08/24/24 documented as of this encounter
--- OUTSIDE RECORDS SUMMARY | 2024-09-05 12:23 | XMS_ITS | Encounter Summary ---
Author Organization [employer] Address 75 [facility] 7t [place] [address] Care Team Providers Care Internal Consultant Name Role Phone Name, Aneesh RIVERS Primary Care Provider [phone] Sandra Rasheed PharmD Unavailable [phone] Reason for Visit * Reason Comments Med Refill Encounter Details Date Type Department Care Team ([facility] Contact Info) Description 05/02/2024 Refill [facility] MEDICINE [address] [place] [address] Name, MD Aneesh [address] [place] [address] Chronic constipation Social History Tobacco Use Types [...] Description 09/26/2024 9:00 AM EDT Medication Management [facility] MED[facility]INE [address] [place] [address] Sandra Rasheed, PharmD [address] [place] [address] 09/26/2024 10:45 AM EDT Office Visit [facility] MEDICINE [address] [place] [address] Aneesh Oliveira MD [address] [place] [address] 11/30/2024 10:00 AM EDT Office Visit [facility] OPTOMETRY [address] [place] [address] Nathanael, Jayne, OD [address] [place] [address] documented as of this encounter Visit Diagnoses Diagnosis Chronic constipation Unspecified constipation documented in this encounter Additional Health Concerns Assessment Noted Time PHQ-9 Depression Total Score: 4 08/23/19 24 9:44 AM EDT documented as of this encounter Care Teams Internal Consultant Relationship Specialty Start Date End Date Aneesh Oliveira MD [address] [place] [address] PCP - General Family Medicine 02/14/18 Sandra Rasheed PharmD [address] [place] [address] Pharmacist Internal Medicine 08/24/24 documented as of this encounter
--- OUTSIDE RECORDS SUMMARY | 2024-09-05 12:23 | XMS_ITS | Encounter Summary ---
Author Organization [employer] Address 75 [facility] 7t [place] [address] Care Team Providers Care Live Truck Technician Name Role Phone Name, Aneesh RIVERS Primary Care Provider [phone] Encounter Details Date Type Department Care Team (Late st Contact Info) Description 08/22/2024 Orders Only [facility] External Provider, [facility] Social History Tobacco Use Types Packs/Day [...] Description 09/26/2024 9:00 AM EDT Medication Management [facility] MEDICINE [address] [place] [address] Sandra Rasheed, PharmD 230 [place] [address] 09/26/2024 10:45 AM EDT Office Visit [facility] MEDICINE [address] [place] [address] Name, MD Aneesh 230 [place] [address] 11/30/2024 10:00 AM EDT Office Visit [facility] OPTOMETRY [address] [place] [address] Nathanael, Jayne, OD [address] [place] [address] documented as of this encounter Procedures Procedure [...] EDT Narrative 08/30/2024 2:08 PM EDT ? [facility] ?[address] ?[place] [address] ? Ultrasound Report ? Signed ? Patient: Dain Mace,Josue ?MR#: ?? [id number] ? : 1950 ?Acct:[id number] ? Age/Sex: 74 / M ?ADM Date: //25 ? Loc: HO.US ? Attending Dr: Aneesh Oliveira MD ? Ordering Physician: Aneesh Oliveira MD ?? Date of Service: 08/30/24 ?? Procedure(s): US venous duplex LE LT ?? Accession Number(s): [id number] ? cc: Name,Aneesh RIVERS ? EXAMINATION: ?? [...] DD/ 1323 ? TD/TT: 08/30/24 1343 ? Rice Milling Supervisor: ? Procedure Note Hannah Mathis - 08/30/[address] [address] Ultrasound Report Signed Patient: Josue DawsonMR#: [id number] : 1950cct:[id number] Age/Sex: 74 / MADM Date: 08/30/24 Loc: .US Attending Dr: Aneesh Oliveira MD Ordering Physician: Aneesh Oliveira MD Date of Service: 08/30/24 Procedure(s): US venous duplex LE Accession Number(s): [id number] cc: Aneesh Oliveira MD EXAMINATION: US TRIPLEX [...] 08/30/24 1405 DD/ 1323 TD/TT: 08/30/24 1343 [employer] Supervisor: us Aneesh Name IMG US PROCEDURES Final Result * (ABNORMAL) Urinalysis, Complete, with Reflex to Culture (08/22/2024 11:15 AM EDT) Color Urine Yellow [facility] Appearance Urine Clear [facility] PH 6.5 5.0 - 9.0 [facility] Glucose Urine UA >=1000(A) Negative mg/dL [facility] Urine Blood Trace(A) Negative [facility] Specific [place] - Urine 1.020 1.005 - 1.025 [facility] Urine Protein 300 (3+)(A) Neg-Trace mg/dL [facility] Urine Ketones Negative Negative mg/dL [facility] Nitrite Urine Negative Negative [facility] Leukocyte Esterase Urine Negative Negative [facility] RBC Urine 0-2 0 - 2 /HPF [facility] Urine WBC 0-5 0 - 5 /HPF [facility] Urine Squamous Epithelial Cell 0-2 0 - 2 /HPF [facility] Urine Bacteria None Seen None Seen [facility] Hyaline Casts, Urine 0-2 0 - 2 /LPF [facility] 08/22/2024 11:1 5 AM EDT 08/22/2024 11:24 AM EDT Narrative [facility] - 08/22/2024 11:33 AM EDT [id number], Clean [employer] us Generic External Data Provider LAB URINE ORDERAB LES Final Result Performing Organization Address [facility] de Phone Number [facility] [address] [place] [phone] * High Sensitivity Troponin I (08/22/2024 9:38 AM EDT) TROPONIN I HIGH SENSITIVITY 3.2 <3.5 - 35.0 ng/L [facility] Comment:The [employer] high sens itivity Troponin-I results should beused in conjunction with other diagnostic information suchas ECG, clinical observations and information, and patientsymptoms to aid in the diagnosis of AL. 08/22/2024 9:38 AM EDT 08/22/2024 9:41 AM EDT Generic External Data Provider LAB BLOOD ORDERAB LES Final Result Performing Organization Address [facility] Phone Number [facility] [address] [place] [phone] * B Type Natriuretic Peptide (BNP) (08/22/2024 9:38 AM EDT) B Type Natriuretic Peptide 24 <100 pg/mL [facility] 08/22/2024 9:38 AM EDT 08/22/2024 9:41 AM EDT Generic External Data Provider LAB BLOOD ORDERAB LES Final Result Performing Organization Address [facility] Co de Phone Number [facility] [address] [place] [phone] * Slide Review (08/22/2024 9:38 AM EDT) Slide Review VERIFIED [facility] 08/22/2024 9:38 AM EDT 08/22/2024 9:41 AM EDT Generic External Data Provider LAB BLOOD ORDERAB LES Final Result Performing Organization Address [facility]/State/ZIP Co de Phone Number [facility] [address] [place] [phone] [phone] * (ABNORMAL) Basic Metabolic Panel (08/22/2024 9:38 AM EDT) Sodium 136 135 - 145 mmol/L [facility] Potassium 3.6 3.3 - 5.1 mmol/L [facility] Chloride 101 96 - 108 mmol/L [facility] Carbon Dioxide 28 22 - 29 mmol/L [facility] Anion Gap 11(L) 12 - 20 [facility] Urea Nitrogen (BUN) 21(H) 9 - 16 mg/dL [facility] Creatinine, Serum 1.21 0.5 - 1.4 mg/dL [facility] Creatinine Clr Calc Pharmacy 58.5 [facility] Comment:eGFR (calculated fro m the MDRD study equation) and eCrCl(calculated from the Cockcroft-Gault equation) are based ondifferent parameters and may not yield comparable results.If eCrCl result is absurd, please check patient'sheight/weight. Estimated Glomerular Filt Rate 59 [facility] Comment:Chronic Kidney Disea se: Estimated GFR < 60 mL/min/1.60s6Ecobxa Kidney Disease: Estimated GFR < 15 mL/min/1.73m2 Glucose 343(H) 60 - 115 mg/dL [facility] Calcium 9.5 8.4 - 10.2 mg/dL [facility] 08/22/2024 9:38 AM EDT 08/22/2024 9:41 AM EDT us Generic External Data Provider LAB BLOOD ORDERAB LES Final Result [facility] [address] [place] [address] [phone] * (ABNORMAL) Hepatic Function Panel (08/22/2024 9:38 AM EDT) Bilirubin, Total 0.4 0.0 - 1.0 mg/dL [facility] Bilirubin, Direct 0.1 0.0 - 0.5 mg/dL [facility] Aspartate Amino Transferase 33 5 - 37 U/L [facility] Alanine Aminotransferase 48(H) 0 - 40 U/L [facility] Total Protein 7.6 6.5 - 8.0 g/dL [facility] Albumin Level 3.5 3.5 - 5.0 g/dL [facility] Alkaline Phosphatase 70 39 - 117 U/L [facility] 08/22/2024 9:38 AM EDT 08/22/2024 9:41 AM EDT us Generic External Data Provider LAB BLOOD ORDERAB LES Final Result [facility] [address] [place] [address] [phone] * (ABNORMAL) CBC auto differential (08/22/2024 9:38 AM EDT) White Blood Count 6.0 4.8 - 10.8 X10*3/uL [facility] Red Blood Count 4.78 4.60 - 5.80 X10*6/uL [facility] Hemoglobin 14.2 14.0 - 18.0 g/dl [facility] Hematocrit 41.6(L) 42.0 - 52.0 % [facility] Mean Corpuscular Volume 87.0 80.0 - 98.0 fL [facility] Mean Corpuscular Hemoglobin 29.7 27.0 - 33.0 pg [facility] Mean Corpuscular HGB Conc 34.1 31.0 - 36.0 g/dl [facility] Red Cell Distribution Width 12.9 11.0 - 16.0 % [facility] Platelet Count 233 160 - 400 X10*3/uL [facility] Mean Platelet Volume 10.1 9.4 - 12.4 fL [facility] Neutrophils Percent Auto 53.6 45 - 73 % [facility] Imm Gran Pct Auto 1.0(H) 0.0 - 0.4 % [facility] Lymphocytes Percent Auto 18.7(L) 20 - 40 % [facility] Monocytes Percent Auto 20.7(H) 2 - 11 % [facility] Eosinophils Percent Auto 5.0(H) 0 - 4 % [facility] Basophils Percent Auto 1.0 0 - 2 % [facility] NRBC Pct Auto 0.0 0.0 - 0.2 /100WBC [facility] Neutrophils Absolute Auto 3.2 2.0 - 8.3 x10*3/uL [facility] Imm Gran Abs Auto 0.06(H) 0.00 - 0.03 X10*3/uL [facility] Lymphocytes Absolute Auto 1.1(L) 1.2 - 4.9 X10*3/uL [facility] Monocytes Absolute Auto 1.2 0.1 - 1.2 X10*3/uL [facility] Eosinophils Absolute Auto 0.3 0.0 - 0.4 X10*3/uL [facility] Basophils Absolute Auto 0.1 0.0 - 0.2 X10*3/uL [facility] NRBC Abs Auto 0.000 0.0 - 0.012 X10*3/uL [facility] 08/22/2024 9:38 AM EDT 08/22/2024 9:41 AM EDT us Generic External Data Provider LAB BLOOD ORDERAB LES Edited Result - Final [facility] [address] [place] [phone] * (ABNORMAL) SARS-CoV-2 RNA, Influenza A/B, and RSV RNA, Ql NAAT (08/22/2024 9:35 AM EDT) Influenza A PCR NEGATIVE Negative [facility] Influenza B PCR NEGATIVE Negative [facility] Resp Syncy Virus RNA Qual PCR NEGATIVE Negative [facility] SARS COV2 PCR POSITIVE(A) Negative [facility] Comment:All test results mus t be [...] use by authorized laboratories.Testing performed on the [employer] 3D GeneXpert utilizingreal-time RT-PCR.All SARS CoV2 and positive influenza A/B results arereported to [facility]. 08/22/2024 9:35 AM EDT 08/22/2024 9:41 AM EDT us Generic External Data Provider LAB MICROBIOLOGY - GENERAL ORDERABLES Final Result [facility] [address] [place] [address] [phone] * US VENOUS DUPLEX LE LT (08/22/2024 9:03 AM EDT) Anatomical Region Laterality Modality Abdomen Ultrasound 08/22/2024 9:03 AM EDT Narrative 08/22/2024 9:37 AM EDT ? [facility] ?[address] ?[place] [address] ? Ultrasound Report ? Signed ? Patient: Josue Dawson ?MR#: ?? [id number] ? : 1950 ?Acct:[id number] ? Age/Sex: 74 / M ?ADM Date: 08/22/24 ? Loc: HO.ED ? Attending Dr: ? Ordering Physician: Alina Odom MD ?? Date of Service: 08/22/24 ?? Procedure(s): US venous duplex LE LT ?? Accession Number(s): [id number] ? cc: OdomAlina MD; Name,Aneesh RIVERS ? [...] ? DD/ 0903 ? TD/TT: 08/22/2413 ? [employer] M[employer] Supervisor: ? Procedure Note Anhpatriciabetito, Image - 08/22/2024 [place] [address] Ultrasound Report Signed Patient: Josue Dawson#: [id number] : 1950cct:[id number] Age/Sex: 74 / MADM Date: 08/22/24 Loc: HO.ED Attending Dr: Ordering Physician: Alina Odom MD Date of Service: 08/22/24 Procedure(s): US venous duplex LE LT Accession Number(s): [id number] cc: Alina Odom MD; Name,Aneesh RIVERS EXAMINATION: [...] OV> 08/22/2434 DD/ 09 TD/TT: 08/22/24 0913 [employer] Supervisor: [facility] External Provider IMG US PROCEDURES Final Result * CT Abdomen Pelvis w/o Contrast (08/22/2024 8:58 AM EDT) Anatomical Region Laterality Modality Body, Pelvis, Abdomen Computed T omography 08/22/2024 8:58 AM EDT Narrative 08/22/2024 9:14 AM EDT ? [facility] ?[address] ?[place] [address] ? CT Scan Report ? Signed ? Patient: Josue Dawson ?MR#: ?? [id number] ? : 1950 ?Acct:[id number] ? Age/Sex: 74 / M ?ADM Date: 03/12/25 ? Loc: HO.ED ? Attending Dr: ? Ordering Physician: Alina Odom MD ?? Date of Service: 08/22/24 ?? Procedure(s): CT abdomen pelvis wo IV con ?? Accession Number(s): [id number] ? cc: Alina Odom MD; Name,Aneesh RIVERS ? Report Number: ?? [id number]: Total DLP = ??751.00 mGy-cm ?? EXAMINATION: [...] DD/ 0858 ? TD/TT: 08/22/24 0858 ? [employer] Milling Supervisor: ? Procedure Note Hannah Mathis - 08/22/[address] [address] [address] Scan Report Signed Patient: Josue Dawson#: [id number] : 1Acct:[id number] Age/Sex: 74 / MADM Date: 08/22/24 Loc: HO.ED Attending Dr: Ordering Physician: Alina Odom MD Date of Service: 08/22/24 Procedure(s): CT abdomen pelvis wo IV con Accession Number(s): [id number] cc: Alina Odom MD; Name,Aneesh Report Number: [id number]: Total DLP = 751.00 mGy-cm EXAMINATION: CT [...] OV> 08/22/24 0910 DD/ 7 TD/TT: 08/22/24857 [employer] Milling Supervisor: [facility] External Provider IMG CT PROCEDURES Final Result * XR Chest 1 View (08/22/2024 8:44 AM EDT) Anatomical Region Laterality Modality Chest Radiographic Trang ging 08/22/2024 8:44 AM EDT Narrative 08/22/2024 9:24 AM EDT ? [facility] ?[address] ?[place] [address] ?XRay Report ? Signed ? Patient: Dain RodriJosue ?MR#: ?? [id number] ? : 1950 ?Acct:[id number] ? Age/Sex: 74 / M ?ADM Date: 08/22/24 ? Loc: HO.ED ? Attending Dr: ? Ordering Physician: Alina Odom MD ?? Date of Service: 08/22/24 ?? Procedure(s): XR chest 1V ?? Accession Number(s): [id number] ? cc: Alina Odom MD; Name,Aneesh RIVRES ? EXAMINATION: ?? XR CHEST ? CLINICAL [...] DD/ 0844 ? TD/TT: 08/22/24 0901 ? [employer] Milling Supervisor: ? Procedure Note Donjuanter, Image - 08/22/[address] [address] XRay Report Signed Patient: Josue DawsonMR#: [id number] : 1950cct:[id number] Age/Sex: 74 / MADM Date: 08/22/24 Loc: HO.ED Attending Dr: Ordering Physician: Alina Odom MD Date of Service: 08/22/24 Procedure(s): XR chest 1V Accession Number(s): [id number] cc: Alina Odom MD; Name,Aneesh RIVERS EXAMINATION: XR CHEST CLINICAL INFORMATION: cp COMPARISON: None available. TECHNIQUE: Frontal view of the chest was obtained. FINDINGS: Borderline cardiac enlargement. Hilar and mediastinal contours are normal. Aortic mural calcifications. The lungs are clear bilaterally. No pneumothorax or effusion. No focal osseous or soft tissue abnormality. XR/XR chest 1V IMPRESSION: No active pulmonary disease. Electronically signed by: Luzi Manzo MD 08/22/2024 09:20 AM EDT Dictated By: Luiz Manzo MD Signed By: <Electronically signed by Luiz Manzo MD in OV> 08/22/24919 DD/ 3 TD/TT: 08/22/24 09 [employer] M[employer] Supervisor: [facility] External Provider IMG XR PROCEDURES Final Result documented in this encounter Visit Diagnoses Not on filedocumented in this encounter Additional Health Concerns Assessment Noted Time PHQ-9 Depression Total Score: 4 08/23/19 24 9:44 AM EDT documented as of this encounter Care Teams Live Truck Technician Relationship Specialty Start Date End Date Name, MD Aneesh [address] [place] [address] PCP - General Family Medicine 02/14/18 documented as of this encounter
--- OUTSIDE RECORDS SUMMARY | 2024-09-05 12:24 | XMS_ITS | Encounter Summary ---
Author Organization [employer] Address [address] [facility] [address] [place] [address] Care Team Providers Care Cocktail Lounge Manager Name Role Phone Name, Aneesh RIVERS Primary Care Provider [phone] Sandra Rasheed PharmD Unavailable [phone] Encounter Details Date Type Department Care Team (Late st Contact Info) Description 08/31/2024 Telephone [facility] [address] [place] [address] Denise Aguirre RN Social History Tobacco Use Types Packs/Day Years [...] encounter Miscellaneous Notes * Telephone Encounter - Denise Aguirre RN - 08/31/2024 2:21 PM EDT Tc to pt via bls id: [id number] to let them know that they have been scheduled to have their repeat ultrasound on 09/13/24 at 1 pm. Pt requesting to go to [facility] location states they feel fine and [place] is too far. Pt strongly advised that they should go to the the soonest appt due to recommend i nstructions was to have pt seen within 7 days to make sure the blood clot is not expanding. Pt agrees to go to [place], requesting for us to send them a reminder, states they cannot understand letters and their cannot either. Asked pt who will be driving them to their appt and they state their daughter Opal. Pt advised for us to call their daughter to let them know of appt details. Tc to pt via bls id: Whitney [id number], explained what happened and provided appt details. Opal verbalizedunderstanding and no further questions. * Telephone Encounter - Denise Aguirre RN - 08/31/2024 2:02 PM EDT Per PCP Please make sure this patient is scheduled for repeat ultrasound of the leg next week andcall him with the date. . MA reports [facility] radiology is on hold to schedule pt and transferred call. Radiology reports they have no available appointments next. They rport their [place] location next availible appt is on 09/13/24 and [facility] [place]. Agreed to have pt to come to the [place] location for 09/13/24 at 1 pm and message forwarded to PCP. documented in this encounter Plan of Treatment Upcoming Encounters Date Type Department Care Team (Late st Contact Info) Description 09/26/2024 9:00 AM EDT Medication Management [facility] [address] [place] [address] Sandra Rasheed PharmD [address] [place] [phone] 09/26/2024 10:45 AM EDT Office Visit [facility] [address] [place] [address] Name, MD Aneesh [address] [place] [address] 11/30/2024 10:00 AM EDT Office Visit [facility] [address] [place] [address] Nathanael, Jayne, OD [address] [place] [address] documented as of this encounter Visit Diagnoses Not on filedocumented in this encounter Additional Health Concerns Assessment Noted Time PHQ-9 Depression Total Score: 4 08/23/19 24 9:44 AM EDT documented as of this encounter Care Teams Cocktail Lounge Manager Relationship Specialty Start Date End Date Aneesh Oliveira MD [address] [place] [address] PCP - General Family Medicine 02/14/18 Sandra Rasheed PharmD [address] [place] [address] Pharmacist Internal Medicine 08/24/24 documented as of this encounter
--- OUTSIDE RECORDS SUMMARY | 2024-09-05 12:24 | XMS_ITS | Encounter Summary ---
Author Organization [employer] Address [address] [facility] 7t [place] [address] Care Team Providers Care Scientific Linguist Name Role Phone Aneesh Oliveira MD Primary Care Provider [phone] Sandra Rasheed PharmD Unavailable [phone] Reason for Referral * Imaging (Routine) - Authorized Specialty Diagnoses / Procedures Referred By Contliv t Referred To Contact Cardiology Diagnoses Acute deep vein thrombosis (DVT) of distal vein of left lower extremity (CMS/HCC) Procedures Vascular US lower extremity venous duplex left Aneesh Oliveira MD [address] [place] [address] Phone: tel: fax: [address] Phone: tel: fax: Referral ID Status Reason Start Date Expiration Date Visits Requested Visits Authorized [id number] Authorized Perform Procedure 08/31/2024 08/31/2025 1 1 Encounter Details Date Type Department Care Team (Late st Contact Info) Description 08/31/2024 Orders Only [facility] [address] [place] [address] [phone] Aneesh Oliveira MD [address] [place], [place] [phone] Acute deep vein thrombosis (DVT) of distal vein of left lower extremity (CMS/HCC) (Primary Dx) Social History Tobacco Use Types Packs/Day Years [...] Description 09/26/2024 9:00 AM EDT Medication Management [facility] [address] [place] [address] Sandra Rasheed, PharmD [address] [place] [address] 09/26/2024 10:45 AM EDT Office Visit [facility] [address] [place] [address] Name, MD Aneesh [address] [place] [address] 11/30/2024 10:00 AM EDT Office Visit [facility] [address] [place] [address] Nathanael, Jayne, OD [address] [place] [address] Pending Results Name Type Priority Associated Diagnoses Date /Time Vascular US lower extremity venous duplex left Vascular Ultrasound Routine Acute deep vein thrombosis (DVT) of distal vein of left lower extremity (CMS/HCC) 08/31/2024 documented as of this encounter Visit Diagnoses Diagnosis Acute deep vein thrombosis (DVT) of distal vein of left lower extremity (CMS/HCC)- Primary documented in this encounter Additional Health Concerns Assessment Noted Time PHQ-9 Depression Total Score: 4 08/23/19 24 9:44 AM EDT documented as of this encounter Care Teams Scientific Linguist Relationship Specialty Start Date End Date Name, MD Aneesh [address] [place] [address] PCP - General Family Medicine 02/14/18 Sandra Rasheed PharmD [address] [place] [address] Pharmacist Internal Medicine 08/24/24 documented as of this encounter
--- OUTSIDE RECORDS SUMMARY | 2024-09-05 12:24 | XMS_ITS | Encounter Summary ---
Author Organization [employer] Address [address] [facility] [address] 7t [place] [address] Care Team Providers Care Visual Merchandising Associate Name Role Phone Name, Aneesh RIVERS Primary Care Provider [phone] Sandra Rasheed PharmD Unavailable [phone] Encounter Details Date Type Department Care Team (Late st Contact Info) Description 08/31/2024 Telephone [facility] [address] [place], [place] [phone] Name, MD Aneesh [address] [place] [address] Social History Tobacco Use Types Packs/Day Years [...] Telephone Encounter - Kelly Mendez RN - 08/31/2024 11:40 AM EDT Consulted with PCP's KARINA Vines who agrees to fax US order to [facility]. T/C to pt via [facility] #[id number]. Advised of message from PCP re: thrombus and f/u plan. Pt verbalized understandingand reports agreement with plan. * Telephone Encounter - Kelly Mendez RN - 08/31/2024 11:25 AM EDT ----- Message from Aneesh Oliveira MD sent at 08/31/2024 9:05 AM EDT ----- Please call the patient. Ultrasound of the leg revealed a persistent nonocclusive thrombus in the left popliteal vein. Thrombus remains small and he has not expanded. Current recommendation is to repeat the ultrasound next week to make sure it has resolved completely. I will order the test for him. documented in this encounter Plan of Treatment Upcoming Encounters Date Type Department Care Team (Late st Contact Info) Description 09/26/2024 9:00 AM EDT Medication Management [facility] [address] [place] [address] Sandra Rasheed PharmD [address] [place] [address] 09/26/2024 10:45 AM EDT Office Visit [facility] [address] [place] [address] Name, MD Aneesh [address] [place] [address] 11/30/2024 10:00 AM EDT Office Visit [facility] [address] [place] [address] Nathanael, Jayne, OD 230 [place] [address] documented as of this encounter Visit Diagnoses Not on filedocumented in this encounter Additional Health Concerns Assessment Noted Time PHQ-9 Depression Total Score: 4 08/23/19 24 9:44 AM EDT documented as of this encounter Care Teams Visual Merchandising Associate Relationship Specialty Start Date End Date Name, [place] [address] PCP - General Family Medicine 02/14/18 Sandra Rasheed, PharmD [address] [place] [address] Pharmacist Internal Medicine 08/24/24 documented as of this encounter
--- OUTSIDE RECORDS SUMMARY | 2024-09-05 12:24 | XMS_ITS | Encounter Summary ---
Author Organization [employer] Address [address] [facility] 7t [place] [address] Care Team Providers Care Creative Producer Name Role Phone Name, Aneesh RIVERS Primary Care Provider Sandra Rasheed PharmD Unavailable [phone] Reason for Visit * Reason Comments Med Refill Encounter Details Date Type Department Care Team ([facility] Contact Info) Description 04/09/2024 Refill [facility] [address] [place], [place] [phone] Name, MD Aneesh [address] [place] [address] Chronic low back pain, unspecified back pain [...] Description 09/26/2024 9:00 AM EDT Medication Management [facility] [address] [place] [address] Sandra Rasheed, PharmD [address] [place] [address] 09/26/2024 10:45 AM EDT Office Visit [facility] [address] [place] [address] Aneesh Oliveira MD [address] [place] [address] 11/30/2024 10:00 AM EDT Office Visit [facility] [address] [place] [address] Nathanael, Jayne, OD 230 [place] [address] documented as of this encounter Visit Diagnoses Diagnosis Chronic low back pain, unspecified back pain laterality, unspecified whether sciatica present documented in this encounter Additional Health Concerns Assessment Noted Time PHQ-9 Depression Total Score: 4 08/23/19 24 9:44 AM EDT documented as of this encounter Care Teams Creative Producer Relationship Specialty Start Date End Date Aneesh Oliveira MD [address] [place] [address] PCP - General Family Medicine 02/14/18 Sandra Rasheed, Javi [address] [place] [address] Pharmacist Internal Medicine 08/24/24 documented as of this encounter
--- OUTSIDE RECORDS SUMMARY | 2024-09-05 12:24 | XMS_ITS | Encounter Summary ---
Author Organization [employer] Address [address] [facility] 7t [place] [address] Care Team Providers Care Medical Billing Clerk Name Role Phone Name, Aneesh RIVERS Primary Care Provider [phone] Sandra Rasheed PharmD Unavailable [phone] Reason for Visit * Reason Comments Med Refill Encounter Details Date Type Department Care Team ([facility] st Contact Info) Description 08/19/2023 Refill [facility] [address] [place], [place] [phone] Name, MD Aneesh [address] [place] [address] Social History Tobacco Use Types Packs/Day Years [...] Description 09/26/2024 9:00 AM EDT Medication Management [facility] [address] [place] [address] Sandra Rasheed PharmD [address] [place] [address] 09/26/2024 10:45 AM EDT Office Visit [facility] [address] [place] [address] Name, MD Aneesh [address] [place] [address] 11/30/2024 10:00 AM EDT Office Visit [facility] [address] [place] [address] Nathanael, Jayne, OD 230 [place] [address] documented as of this encounter Visit Diagnoses Not on filedocumented in this encounter Care Teams Medical Billing Clerk Relationship Specialty Start Date End Date Name, MD Aneesh [address] [place] [address] PCP - General Family Medicine 02/14/18 Sandra Rasheed, PharmD [address] [place] [address] Pharmacist Internal Medicine 08/24/24 documented as of this encounter
--- OUTSIDE RECORDS SUMMARY | 2024-09-05 12:24 | XMS_ITS | Encounter Summary ---
Author Organization [employer] Address [address] [facility] [address] 7t [place] [address] Care Team Providers Care Patient Care Name Role Phone Name, Aneesh RIVERS Primary Care Provider [phone] Sandra Rasheed PharmD Unavailable [phone] Reason for Visit * Reason Onset Date Comments fax over to [facility] 08/31/2024 Encounter Details Date Type Department Care Team (Late st Contact Info) Description 08/31/[address] [facility] [address] [place], [place] [phone] Mohinder Calero [place] fax over to [facility] Social History Tobacco Use Types Packs/Day Years [...] encounter Miscellaneous Notes * Telephone Encounter - Mohinder Calero MA - 08/31/2024 12:03 PM EDT Lab order sent to Radiologist [facility] , Confirmation sent ok documented in this encounter Plan of Treatment Upcoming Encounters Date Type Department Care Team (Late st Contact Info) Description 09/26/2024 9:00 AM EDT Medication Management [facility] [address] [place] [address] Sandra Rasheed, PharmD [address] [place] [address] 09/26/2024 10:45 AM EDT Office Visit [facility] [address] [place] [address] Name, MD Aneesh [address] [place] [address] 11/30/2024 10:00 AM EDT Office Visit [facility] [address] [place] [address] Jayne Huffman, OD 230 [place] [address] documented as of this encounter Visit Diagnoses Not on filedocumented in this encounter Additional Health Concerns Assessment Noted Time PHQ-9 Depression Total Score: 4 08/23/19 24 9:44 AM EDT documented as of this encounter Care Teams Patient Care Relationship Specialty Start Date End Date Name, MD Aneesh [address] [place] [address] PCP - General Family Medicine 02/14/18 Sandra Rasheed, Javi [address] [place] [address] Pharmacist Internal Medicine 08/24/24 documented as of this encounter
--- OUTSIDE RECORDS SUMMARY | 2024-09-05 12:24 | XMS_ITS | Encounter Summary ---
Author Organization [employer] Address [address] [facility] 7t [place] [address] Care Team Providers Care Labor Arbitrator Hearing Office Name Role Phone Name, Aneesh RIVERS Primary Care Provider [phone] Reason for Visit * Reason Comments Med Refill Encounter Details Date Type Department Care Team ([facility] st Contact Info) Description 08/13/2024 Refill [facility] [address] [place], [place] [phone] [facility] [address] [place] [address] Chronic low back pain, unspecified back pain [...] Watts LPN - 08/14/2024 10:02 AM EST DRESS FINISHER checked on 08/14/24. documented in this encounter Plan of Treatment Upcoming Encounters Date Type Department Care Team (Late st Contact Info) Description 09/26/2024 9:00 AM EDT Medication Management [facility] MEDICINE [address] [place] [address] PuiaSandra, PharmD 230 [place] [address] 09/26/2024 10:45 AM EDT Office Visit [facility] MED[facility] [address] [place] [address] Name, MD Aneesh [address] [place] [address] 11/30/2024 10:00 AM EDT Office Visit [facility] OPTOMETRY [address] [place] [address] Jayne Huffman, OD [address] [place] [address] documented as of this encounter Visit Diagnoses Diagnosis Chronic low back pain, unspecified back pain laterality, unspecified whether sciatica present documented in this encounter Additional Health Concerns Assessment Noted Time PHQ-9 Depression Total Score: 4 08/23/19 24 9:44 AM EDT documented as of this encounter Care Teams Labor Arbitrator Hearing Office Relationship Specialty Start Date End Date Name, MD Aneesh [address] [place] [address] PCP - General Family Medicine 02/14/18 documented as of this encounter
--- OUTSIDE RECORDS SUMMARY | 2024-09-05 12:24 | XMS_ITS | Encounter Summary ---
Author Organization [employer] Address [address] [facility] 7t [place] [address] Care Team Providers Care Track Laying Machine Operator Name Role Phone Name, Aneesh RIVERS Primary Care Provider [phone] Sandra Rasheed PharmD Unavailable [phone] Reason for Visit * Reason Comments Med Refill Encounter Details Date Type Department Care Team ([facility] st Contact Info) Description 06/25/2024 Refill [facility] [address] [place] [address] Name, MD Aneesh [address] [place] [address] Hypertension, unspecified type; Prostatism; Type 2 diabetes mellitus with hyperglycemia ([facility]/HCC); 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 ([facility]) Social History Tobacco Use Types [...] Description 09/26/2024 9:00 AM EDT Medication Management [facility] [address] [place] [address] Sandra Rasheed, PharmD [address] [place] [address] 09/26/2024 10:45 AM EDT Office Visit [facility] [address] [place] [address] Name, MD Aneesh [address] [place] [address] 11/30/2024 10:00 AM EDT Office Visit [facility] OPT[facility] [address] [place] [address] Jayne Huffman, BRYANT 230 [place] [address] documented as of this encounter Visit Diagnoses Diagnosis Hypertension, unspecified type Prostatism Unspecified hyperplasia of prostate without urinary obstruction and other lower urinary tract symptoms (LUTS) Type 2 diabetes mellitus with hyperglycemia (CMS/HCC) 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
--- OUTSIDE RECORDS SUMMARY | 2024-09-05 12:24 | XMS_ITS | Encounter Summary ---
Author Organization [employer] Address [address] [facility] 7t [place] [address] Care Team Providers Care Heating And Blending Supervisor Name Role Phone NameAneesh MD Primary Care Provider [phone] Sandra Rasheed PharmD Unavailable [phone] Reason for Visit * Consultation (Routine) - Authorized Specialty Diagnoses / Procedures Referred By Contac t Referred To Contact Pharmacy Diagnoses Type 2 diabetes mellitus with other specified complication, without long-term current use of insulin (CMS/HCC) Name, MD Aneesh [address] [place] [address] Phone: tel: fax: Referral ID Status Reason Start Date Expiration Date Visits Requested Visits Authorized [id number] Authorized Consult and Treat 05/18/2024 05/18/2025 6 6 Encounter Details Date Type Department Care Team (Latest Contact Info) Description 08/24/2024 9:00 AM EDT Telemedicine [facility] MED[facility]INE [address] [place] [address] Sandra Rasheed, PharmD [address] [place], [place] [phone] Type 2 diabetes mellitus with hyperglycemia (CMS/HCC) [...] completed over the phone. Previously following with [facility] endocrinology but per patient today & as documented in PCP note 05/18/24 he is no longer receiving care there. Wishes to enroll in CDTM. Subjective History: General / Intake (updated 08/23/24) Allergies: is allergic to lisinopril, prednisone, and wound dressings. Read/Write: No Recent Hospitalizations: No, seen at [facility] ER 08/22 for COVID+, DVT (see TCs [...] Adherence / patient self-management Uses medboxes from [facility] pharmacy Reports satisfaction with medboxes Denies missed [...] importance of proper bolus use, with food. [facility] offered CGM with Willy 3. Patient reports [...] patient did recently decline all vaccines in DCM. Will revisit at follow up: COVID-19 [id number] (new) HepB series (age > 59 yo with risk factor(s) [T2MD]) RSV (age 60-74 yo with risk factor(s)) Shingrix (age >50 yo) - overdue for dose #2 to complete series Preferred Pharmacy: *[facility]* [facility] - [address] [id number] Assessment/Plan: Type 2 Diabetes Pharmacologic Therapy: Humalog [...] past 12 mo: Yes, last seen at 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 Patient to follow up in CDTM in [...] need for treatment modification. 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 Last K+ on 08/22/24 ([facility] ER) was 3.6 mmol/L (WNL/lower end of normal) Education: Reviewed BP goals, patient instructed to call if extremes of BP are noted prior to next scheduled visit. documented in this encounter Plan of Treatment Upcoming Encounters Date Type Department Care Team (Late st Contact Info) Description 09/26/2024 9:00 AM EDT Medication Management [facility] [address] [place] [address] Sandra Rasheed PharmD [address] [place] [address] 09/26/2024 10:45 AM EDT Office Visit [facility] [address] [place] [address] Name, MD Aneesh [address] [place] [address] 11/30/2024 10:00 AM EDT Office Visit [facility] OPTOMETRY [address] [place] [address] Nathanael, Jayne, OD [address] [place] [address] documented as of this encounter Visit Diagnoses [...] documented as of this encounter Care Teams Heating And Blending Supervisor Relationship Specialty Start Date End Date Name, MD Aneesh [address] [place] [address] PCP - General Family Medicine 02/14/18 Sandra Rasheed PharmD [address] [place] [address] Pharmacist Internal Medicine 08/24/24 documented as of this encounter
--- OUTSIDE RECORDS SUMMARY | 2024-09-05 12:24 | XMS_ITS | Encounter Summary ---
Author Organization [employer] Address [address] [facility] [address] [place] [address] Care Team Providers Care Sales Representative Wire Rope Name Role Phone Name, Aneesh RIVERS Primary Care Provider [phone] Sandra Rasheed PharmD Unavailable [phone] Encounter Details Date Type Department Care Team (Late st Contact Info) Description 08/31/2024 Orders Only [facility] 230 [place] [address] Name, MD Aneesh [address] [place] [address] Social History Tobacco Use Types Packs/Day Years [...] as of this encounter Progress Notes * Aneesh Oliveira MD - 08/31/2024 9:09 AM EDT Please make sure this patient is scheduled for repeat ultrasound of the leg next week and call him with the date. documented in this encounter Plan of Treatment Upcoming Encounters Date Type Department Care Team (Late st Contact Info) Description 09/26/2024 9:00 AM EDT Medication Management [facility] [address] [place] [address] Sandra Rasheed, PharmD [address] [place] [address] 09/26/2024 10:45 AM EDT Office Visit [facility] [address] [place] [address] Aneesh Oliveira MD [address] [place] [address] 11/30/2024 10:00 AM EDT Office Visit [facility] OPTOMET[facility] [address] [place] [address] Nathanael, Jayne, OD [address] [place] [address] documented as of this encounter Visit Diagnoses Not on filedocumented in this encounter Additional Health Concerns Assessment Noted Time PHQ-9 Depression Total Score: 4 08/23/19 24 9:44 AM EDT documented as of this encounter Care Teams Sales Representative Wire Rope Relationship Specialty Start Date End Date Name, MD Aneesh [address] [place] [address] PCP - General Family Medicine 02/14/18 Sandra Rasheed PharmD [address] [place] [address] Pharmacist Internal Medicine 08/24/24 documented as of this encounter
--- OUTSIDE RECORDS SUMMARY | 2024-09-05 12:24 | XMS_ITS | Encounter Summary ---
Author Organization [employer] Address [address] [facility] 7t [place] [address] Care Team Providers Care Supervisor Newspaper Deliveries Name Role Phone Aneesh Oliveira MD Primary Care Provider Sandra Rasheed PharmD Unavailable [phone] Reason for Referral * Imaging (Routine) - Closed Specialty Diagnoses / Procedures Referred By Contliv t Referred To Contact Cardiology Diagnoses Acute deep vein thrombosis (DVT) of distal vein of left lower extremity (CMS/HCC) Procedures Vascular US lower extremity venous duplex left Aneesh Oliveira MD [address] [place] [address] Phone: tel: fax: [address] Phone: tel: fax: Referral ID Status Reason Start Date Expiration Date V isits Requested Visits Authorized [id number] Closed Perform Procedure 08/23/2024 08/23/2025 1 1 Reason for Visit * Reason Onset Date Comments ER Follow-up 08/22/2024 Encounter Details Date Type Department Care Team (Late st Contact Info) Description 08/22/2024 Telephone [facility] [address] [place], [place] [phone] Aneesh Oliveira MD [address] [place] [address] [phone] ER Follow-up Social History Tobacco Use Types [...] - 08/27/2024 10:23 AM EDT T/C to [facility] radiology to determine date of repeat US. Terri transferred call to [place] in centralized scheduling who states earliest available appt is 09/11/24. RN asked if pt can be scheduled sooner as repeat LLE US was recommended in 1 week per [facility] ED note 08/22/24. Pt then scheduled for 08/30/24 at1p. T/C to pt via [employer] to advise. No answer, v/m left to return call to [facility] team nurses. T/C to pt's daughter. Advised [...] and messages left to return call to [phone] Triage call placed with [facility] # [id number] Angelli to patient who reports confirmation of [...] agrees.Patientin need of referral for US at [facility] in one week and will required ED [...] ED visit on : Date: 08/22 Hospital: [facility] Seen for: Respiratory Symptoms Symptomatic Yes *if yes message should go to Triage Patient advised will forward to team nurse for follow up [phone] Daughter documented in this encounter Plan of Treatment Upcoming Encounters Date Type Department Care Team (Late st Contact Info) Description 09/26/2024 9:00 AM EDT Medication Management [facility] [address] [place] [address] Sandra Rasheed PharmD 230 [place] [address] 09/26/2024 10:45 AM EDT Office Visit [facility] [address] [place] [address] Name, MD Aneesh [address] [place] [address] 11/30/2024 10:00 AM EDT Office Visit [facility] [address] [place] [address] Nathanael, Jayne, OD [address] [place] [address] documented as of this encounter Visit Diagnoses Diagnosis Acute deep vein thrombosis (DVT) of distal vein of left lower extremity (CMS/HCC)- Primary documented in this encounter Additional Health Concerns Assessment Noted Time PHQ-9 Depression Total Score: 4 08/23/19 24 9:44 AM EDT documented as of this encounter Care Teams Supervisor Newspaper Deliveries Relationship Specialty Start Date End Date Name, MD Aneseh [address] [place] [address] PCP - General Family Medicine 02/14/18 Sandra Rasheed PharmD [address] [place] [address] Pharmacist Internal Medicine 08/24/24 documented as of this encounter
--- OUTSIDE RECORDS SUMMARY | 2024-09-05 12:24 | XMS_ITS | Clinical Summary ---
Author Organization [employer] Address [address] [facility] 7[address] [place] [address] Care Team Providers Care Tray Checker Name Role Phone Name, Aneesh RIVERS Primary Care Provider [phone] Sandra Rasheed PharmD Unavailable [phone] Allergies Active Allergy Reactions Criticality Noted [...] complication, without long-term current use of insulin ([facility]) Take 1 tablet (1,000 mg) by mouth [...] injectionIndicat ions:Type 2 diabetes mellitus with hyperglycemia (CMS/HCC),oysterman (current) use of insulin (CMS/HCC) Inject 35 [...] injectionIndicat ions:Type 2 diabetes mellitus with hyperglycemia (CMS/HCC),alf (current) use of insulin (CMS/HCC) INJECT 80 [...] not trigger notification to Pharmacy)) sodium chloride ([place]) 0.65 % nasal sprayIndications :Postnasal drip Administer [...] complication, without long-term current use of insulin (CMS/[facility]) TEST BLOOD SUGAR THREE TIMES DAILY 100 [...] complication, without long-term current use of insulin ([facility]) INJECT 80 UNITS SUBCUTANEOUSLY AT BEDTIME 6 mL 3 025 2024 Discontinued(R eorder (will not trigger notification to Pharmacy)) HumaLOG KWIKPEN 100 UNIT/ML injectionIndicat ions:Type 2 diabetes mellitus with hyperglycemia (CMS/[facility]),alf (current) use of insulin (CMS/[facility]) INJECT 40 UNITS SUBCUTANEOUSLY BEFORE BREAKFAST, 35 [...] Encounters Date Type Department Care Team Description 09/05/[address] [facility] [address] [place] [address] Name, MD Aneesh 08/31/[address] [facility] [address] [facility] [place] [address] Denise Aguirre, SAMIR 08/31/[address] [facility] [address] [place] [address] Mohinder Calero [place] fax over to [facility] 08/31/[address] [facility] [address] [facility] [place] [address] NameAneesh MD 08/31/[address] [facility] [address] [facility] [place] [address] NameAneesh MD 08/31/[address] [facility] [address] [facility] [place] [address] NameAneesh MD Acute deep vein thrombosis (DVT) of distal vein of left lower extremity (CMS/HCC) (Primary Dx) 08/24/2024 9:[address] [facility] [address] [facility] [place] [address] Sandra Rasheed PharmD Type 2 diabetes mellitus with hyperglycemia (CMS/HCC) (Primary Dx); oysterman (current) use of insulin (CMS/HCC); Hypertension, unspecified type; Type 2 diabetes mellitus with other specified complication, without long-term current use of insulin (CMS/HCC) 08/22/[address] [facility] [address] [place] [address] Aneesh Oliveira MD ER Follow-up 08/22/2024 Orders Only [facility] External Provider, [facility] 08/13/2024 Refill [facility] [address] [place] [address] Richard, Sho, [employer]MER Chronic low back pain, unspecified back pain laterality, unspecified whether sciatica present 07/17/[address] [facility] [address] [place] [address] Aneesh Oliveira MD Appointment Request 07/10/2024 Refill [facility] [address] [place] [address] Aneesh Oliveira MD Type 2 diabetes mellitus with hyperglycemia (CMS/[facility]); alf (current) use of insulin (CMS/HCC) 07/06/[address] [facility] [address] [place] [address] Aneesh Oliveira MD Type 2 diabetes mellitus with other specified complication, without long-term current use of insulin (CMS/HCC) 06/29/[address] [facility] [address] [place] [address] Aneesh Oliveira MD Chronic constipation 06/25/[address] [facility] [address] [place] [address] Aneesh Oliveira MD Hypertension, unspecified type; Prostatism; Type 2 diabetes mellitus with hyperglycemia (CMS/HCC); oysterman (current) use of insulin (CMS/HCC) 06/24/2024 Refill [facility] [address] [place] [address] Aneesh Oliveira MD Chronic low back pain, unspecified back pain laterality, unspecified whether sciatica present; Hypertension, unspecified type; Prostatism from Last 3 Months Immunizations Name Administration [...] Description 09/26/2024 9:00 AM EDT Medication Management [facility] [address] [place] [phone] Sandra Rasheed, PharmD [address] [place] [address] 09/26/2024 10:45 AM EDT Office Visit [facility] [address] [place] [address] Name, MD Aneesh [address] [place] [address] 11/30/2024 10:00 AM EDT Office Visit [facility] [address] [place] [address] Jayne Huffman, OD [address] [place] [address] Health Maintenance Due Date Last Done Comments [...] history exists Depression Screening 08/22/2024 08/23/2023, 08/23/19 24 SDOH Screening 08/22/2024 08/23/2023 Dental X-Ray: Full [...] WITH BAYLEE Routine 06/20/2024 1:51 PM EST LIPID PANEL, STANDARD Routine 05/24/2024 8:27 [...] EDT Narrative 08/30/2024 2:08 PM EDT ? [facility] ?[address] ?[place] [address] ? Ultrasound Report ? Signed ? Patient: Gautam Rodri,Josue ?MR#: ?? [id number] ? : 1950 ?Acct:[id number] ? Age/Sex: 74 / M ?ADM Date: 03/20/25 ? Loc: HO.US ? Attending Dr: Aneesh Oliveira MD ? Ordering Physician: Aneesh Oliveira MD ?? Date of Service: 08/30/24 ?? Procedure(s): US venous duplex LE LT ?? Accession Number(s): [id number] ? cc: Aneesh Oliveira MD ? EXAMINATION: [...] ? There is no Son's cyst. ? US/ venous duplex LE LT ?? IMPRESSION: ?? Persistent nonocclusive thrombus in the distal segment left popliteal ?? vein. No change. ? Electronically signed by: ??Cheo Galindo MD ??08/30/2024 02:05 PM ?? EDT ? Dictated By: ?Cheo Looney MD ? Signed By: ?<Electronically signed by Cheo Landon MD in OV> ? 08/30/24 1405 ? DD/ 1323 ? TD/TT: 08/30/24 1343 ? Kitchen Assistant: ? Procedure Note Hannah Mathis - 08/30/[address] [address] Ultrasound Report Signed Patient: Josue Dawson#: [id number] : 1950cct:[id number] Age/Sex: 74 / MADM Date: 08/30/24 Loc: HO.US Attending Dr: Aneesh Oliveira MD Ordering Physician: Aneesh Oliveira MD Date of Service: 08/30/24 Procedure(s): US venous duplex LE LT Accession Number(s): [id number] cc: Aneesh Oliveira MD EXAMINATION: US TRIPLEX [...] Cheo Galindo MD 08/30/2024 02:05 PM EDT RP Dictated By: Cheo Looney MD Signed By: <Electronically signed by Cheo Landon MDin OV> 08/30/24 1405 DD/ 1323 TD/TT: 08/30/24 1343 Kitchen Assistant: Aneesh Oliveira MD IMG US PROCEDURES Final Result * (ABNORMAL) Urinalysis, Complete, with Reflex to Culture (08/22/2024 11:15 AM EDT) Color Urine Yellow [facility] Appearance Urine Clear [facility] PH 6.5 5.0 - 9.0 [facility] Glucose Urine UA >=1000(A) Negative mg/dL [facility] Urine Blood Trace(A) Negative [facility] Specific Magna - Urine 1.020 1.005 - 1.025 [facility] Urine Protein 300 (3+)(A) Neg-Trace mg/dL [facility] Urine Ketones Negative Negative mg/dL [facility] Nitrite Urine Negative Negative [facility] Leukocyte Esterase Urine Negative Negative [facility] RBC Urine 0-2 0 - 2 /HPF [facility] Urine WBC 0-5 0 - 5 /HPF [facility] Urine Squamous Epithelial Cell 0-2 0 - 2 /HPF [facility] Urine Bacteria None Seen None Seen [facility] Hyaline Casts, Urine 0-2 0 - 2 /LPF [facility] 08/22/2024 11:1 5 AM EDT 08/22/2024 11:24 AM EDT Narrative [facility] - 08/22/2024 11:33 AM EDT [id number], Clean Catch us Generic External Data Provider LAB URINE ORDERAB LES Final Result Performing Organization Address [facility]/ZIP Co de Phone Number [facility] [address] [place] [phone] * Slide Review (08/22/2024 9:38 AM EDT) Slide Review VERIFIED [facility] 08/22/2024 9:38 AM EDT 08/22/2024 9:41 AM EDT us Generic External Data Provider LAB BLOOD ORDERAB LES Final Result Performing Organization Address [facility] Co de Phone Number [facility] [address] [place] [phone] * High Sensitivity Troponin I (08/22/2024 9:38 AM EDT) TROPONIN I HIGH SENSITIVITY 3.2 <3.5 - 35.0 ng/L [facility] Comment:The Oneill high sens itivity Troponin-I results should beused in conjunction with other diagnostic information suchas ECG, clinical observations and information, and patientsymptoms to aid in the diagnosis of [place]. 08/22/2024 9:38 AM EDT 08/22/2024 9:41 AM EDT us Generic External Data Provider LAB BLOOD ORDERAB LES Final Result Performing Organization Address [facility] Co de Phone Number [facility] [address] [place] [phone] * (ABNORMAL) CBC auto differential (08/22/2024 9:38 AM EDT) White Blood Count 6.0 4.8 - 10.8 X10*3/uL [facility] Red Blood Count 4.78 4.60 - 5.80 X10*6/uL [facility] Hemoglobin 14.2 14.0 - 18.0 g/dl [facility] Hematocrit 41.6(L) 42.0 - 52.0 % [facility] Mean Corpuscular Volume 87.0 80.0 - 98.0 fL [facility] Mean Corpuscular Hemoglobin 29.7 27.0 - 33.0 pg [facility] Mean Corpuscular HGB Conc 34.1 31.0 - 36.0 g/dl [facility] Red Cell Distribution Width 12.9 11.0 - 16.0 % [facility] Platelet Count 233 160 - 400 X10*3/uL [facility] Mean Platelet Volume 10.1 9.4 - 12.4 fL [facility] Neutrophils Percent Auto 53.6 45 - 73 % [facility] Imm Gran Pct Auto 1.0(H) 0.0 - 0.4 % [facility] Lymphocytes Percent Auto 18.7(L) 20 - 40 % [facility] Monocytes Percent Auto 20.7(H) 2 - 11 % [facility] Eosinophils Percent Auto 5.0(H) 0 - 4 % [facility] Basophils Percent Auto 1.0 0 - 2 % [facility] NRBC Pct Auto 0.0 0.0 - 0.2 /100WBC [facility] Neutrophils Absolute Auto 3.2 2.0 - 8.3 x10*3/uL [facility] Imm Gran Abs Auto 0.06(H) 0.00 - 0.03 X10*3/uL [facility] Lymphocytes Absolute Auto 1.1(L) 1.2 - 4.9 X10*3/uL [facility] Monocytes Absolute Auto 1.2 0.1 - 1.2 X10*3/uL [facility] Eosinophils Absolute Auto 0.3 0.0 - 0.4 X10*3/uL [facility] Basophils Absolute Auto 0.1 0.0 - 0.2 X10*3/uL [facility] NRBC Abs Auto 0.000 0.0 - 0.012 X10*3/uL [facility] 08/22/2024 9:38 AM EDT 08/22/2024 9:41 AM EDT us Generic External Data Provider LAB BLOOD ORDERAB LES Edited Result - Final Performing Organization Address [facility]/ZIP Co de Phone Number [facility] [address] [place] [phone] * B Type Natriuretic Peptide (BNP) (08/22/2024 9:38 AM EDT) B Type Natriuretic Peptide 24 <100 pg/mL [facility] 08/22/2024 9:38 AM EDT 08/22/2024 9:41 AM EDT Generic External Data Provider LAB BLOOD ORDERAB LES Final Result Performing Organization Address [facility] Co de Phone Number [facility] [address] [place] [phone] * (ABNORMAL) Hepatic Function Panel (08/22/2024 9:38 AM EDT) Bilirubin, Total 0.4 0.0 - 1.0 mg/dL [facility] Bilirubin, Direct 0.1 0.0 - 0.5 mg/dL [facility] Aspartate Amino Transferase 33 5 - 37 U/L [facility] Alanine Aminotransferase 48(H) 0 - 40 U/L [facility] Total Protein 7.6 6.5 - 8.0 g/dL [facility] Albumin Level 3.5 3.5 - 5.0 g/dL [facility] Alkaline Phosphatase 70 39 - 117 U/L [facility] 08/22/2024 9:38 AM EDT 08/22/2024 9:41 AM EDT us Generic External Data Provider LAB BLOOD ORDERAB LES Final Result Performing Organization Address City/[facility]/ZIP Co de Phone Number [facility] [address] [place] [phone] * (ABNORMAL) Basic Metabolic Panel (08/22/2024 9:38 AM EDT) Sodium 136 135 - 145 mmol/L [facility] Potassium 3.6 3.3 - 5.1 mmol/L [facility] Chloride 101 96 - 108 mmol/L [facility] Carbon Dioxide 28 22 - 29 mmol/L [facility] Anion Gap 11(L) 12 - 20 [facility] Urea Nitrogen (BUN) 21(H) 9 - 16 mg/dL [facility] Creatinine, Serum 1.21 0.5 - 1.4 mg/dL [facility] Creatinine Clr Calc Pharmacy 58.5 [facility] Comment:eGFR (calculated fro m the MDRD study equation) and eCrCl(calculated from the Cockcroft-Gault equation) are based ondifferent parameters and may not yield comparable results.If eCrCl result is absurd, please check patient'sheight/weight. Estimated Glomerular Filt Rate 59 [facility] Comment:Chronic Kidney Disea se: Estimated GFR < 60 mL/min/1.43k3[place] Kidney Disease: Estimated GFR < 15 mL/min/1.73m2 Glucose 343(H) 60 - 115 mg/dL [facility] Calcium 9.5 8.4 - 10.2 mg/dL [facility] 08/22/2024 9:38 AM EDT 08/22/2024 9:41 AM EDT us Generic External Data Provider LAB BLOOD ORDERAB LES Final Result Performing Organization Address City/[facility]/ZIP Co de Phone Number [facility] [address] [place] [phone] * (ABNORMAL) SARS-CoV-2 RNA, Influenza A/B, and RSV RNA, Ql NAAT (08/22/2024 9:35 AM EDT) Influenza A PCR NEGATIVE Negative [facility] Influenza B PCR NEGATIVE Negative [facility] Resp Syncy Virus RNA Qual PCR NEGATIVE Negative [facility] SARS COV2 PCR POSITIVE(A) Negative [facility] Comment:All test results mus t [...] use by authorized laboratories.Testing performed on the [employer] GeneXpert utilizingreal-time RT-PCR.All SARS CoV2 and positive influenza A/B results arereported to [facility]. 08/22/2024 9:35 AM EDT 08/22/2024 9:41 AM EDT Generic External Data Provider LAB MICROBIOLOGY - GENERAL ORDERABLES Final Result [facility] [address] [place] [phone] * CT Abdomen Pelvis w/o Contrast (08/22/2024 8:58 AM EDT) Anatomical Region Laterality Modality Body, Pelvis, Abdomen Computed T omography 08/22/2024 8:58 AM EDT Narrative 08/22/2024 9:14 AM EDT ? [facility] ?[address] ?[place] [address] ? CT Scan Report ? Signed ? Patient: Gautam Rodri,Josue ?MR#: ?? [id number] ? : 1950 ?Acct:[id number] ? Age/Sex: 74 / M ?ADM Date: 03/12/25 ? Loc: HO.ED ? Attending Dr: ? Ordering Physician: Alina Odom MD ?? Date of Service: 08/22/24 ?? Procedure(s): CT abdomen pelvis wo IV con ?? Accession Number(s): [id number] ? cc: Alina Odom MD; Name,Aneesh RIVERS ? Report Number: ?? [id number]: Total DLP = ??751.00 mGy-cm ?? EXAMINATION: [...] Galindo MD ??08/22/2024 09:10 AM ?? EDT ? Dictated By: ?Cheo Looney MD ? Signed By: ?<Electronically signed by Cheo Landon MD in OV> ? 08/22/24 0910 ? DD/ 0858 ? TD/TT: 08/22/24 0858 ? Kitchen Assistant: ? Procedure Note Hannah Mathis - 08/22/[address] [address] [address] Scan Report Signed Patient: Gautam RodriSylvia#: [id number] : 1Acct:[id number] Age/Sex: 74 / MADM Date: 08/22/24 Loc: HO.ED Attending Dr: Ordering Physician: Alina Odom MD Date of Service: 08/22/24 Procedure(s): CT abdomen pelvis wo IV con Accession Number(s): [id number] cc: Alina Odom MD; Name,Aneesh Report Number: [id number]: Total DLP = 751.00 mGy-cm EXAMINATION: CT [...] <Electronically signed by Cheo Landon MDin OV> 08/22/2410 DD/ 7 TD/TT: 08/22/24857 Kitchen Assistant: [facility] External Provider IMG CT PROCEDURES Final Result * XR Chest 1 View (08/22/2024 8:44 AM EDT) Anatomical Region Laterality Modality Chest Radiographic Trang ging 08/22/2024 8:44 AM EDT Narrative 08/22/2024 9:24 AM EDT ? [facility] ?[address] ?[place] [address] ?XRay Report ? Signed ? Patient: Dain Mace,Josue ?MR#: ?? [id number] ? : 1950 ?Acct:[id number] ? Age/Sex: 74 / M ?ADM Date: 03/12/25 ? Loc: HO.ED ? Attending Dr: ? Ordering Physician: Odom,Alina C MD ?? Date of Service: 08/22/24 ?? Procedure(s): XR chest 1V ?? Accession Number(s): [id number] ? cc: Alina Odom MD; Name,Aneesh RIVERS [...] DD/ 0844 ? TD/TT: 08/22/24 0901 ? Kitchen Assistant: ? Procedure Note Del, Image - 08/22/2024 [place] [address] XRay Report Signed Patient: Josue DawsonMR#: [id number] : 1950cct:[id number] Age/Sex: 74 / MADM Date: 08/22/24 Loc: HO.ED Attending Dr: Ordering Physician: Alina Odom MD Date of Service: 08/22/24 Procedure(s): XR chest 1V Accession Number(s): [id number] cc: Alina Odom MD; Name,Aneesh RIVERS EXAMINATION: [...] in OV> 08/22/24919 DD/ 3 TD/TT: 08/22/24900 Kitchen Assistant: us [facility] External Provider IMG XR PROCEDURES Final Result * VASC US Lower Extremity Arterial Duplex Bilateral With Baylee (06/20/2024 1:51 PM EST) 06/20/2024 1:51 PM EST Narrative [facility] - 06/20/2024 1:53 PM EST ? [facility] ?[address] ?[place], [place] [address] ? Ultrasound Report ? Signed ? Patient: Gautam,Josue ?MR#: [id number] ?? [id number] ? : 1950 ?Acct:[id number] ? Age/Sex: 73 / M ?ADM Date: 06/18/24 ? Loc: HO.US ? Attending Dr: Rodney Smith MD ? Ordering Physician: Rodney Smith MD ?? Date of Service: 06/18/24 ?? Procedure(s): US arterial duplex BI w/ BAYLEE ?? Accession Number(s): [id number] ? cc: Rodney Smith MD; Name,Aneesh RIVERS [...] DD/ 1351 ? TD/TT: 06/20/24 1351 ? Kitchen Assistant: ? Procedure Note Del, Hannah - 06/20/2024 [place] [address] Ultrasound Report Signed Patient: Sylvia Gautam#: [id number] : 1950cct:[id number] Age/Sex: 73 / MADM Date: 06/18/24 Loc: HO.US Attending Dr: Rodney Smith MD Ordering Physician: Rodney Smith MD Date of Service: 06/18/24 Procedure(s): US arterial duplex BI w/ BAYLEE Accession Number(s): [id number] cc: Rodney Smith MD; Name,Aneesh RIVERS CLINICAL [...] 06/20/24 1353 DD/ 1351 TD/TT: 06/20/24 1351 Kitchen Assistant: us [facility] External Provider CV VASC ULAR PROCEDURES Edited Result - Final [facility] [address] [place] [phone] * (ABNORMAL) Lipid Panel, Standard (05/24/2024 8:27 AM EST) Triglycerides 185(H) <150 mg/dL [facility] Comment:Desirable Triglyceri de: less than 150 mg/dLBorderline High Triglyceride 150-199 mg/dLHigh Triglyceride: 200-499 mg/dLVery High Triglyceride: greater than or equal to 5OO mg/dL Cholesterol 162 <200 mg/dL [facility] Comment:Desirable Cholestero l: less than 200 mg/dLBorderline High Cholesterol: 200-239 mg/dLHigh Cholesterol: greater than 239 mg/dL LDL Cholesterol Calculated 88 <100 mg/dL [facility] Comment:Desirable LDL: less than 100 mg/dLNear Optimal/Above Optimal LDL: 110- 129 mg/dLBorderline High LDL: 130-159 mg/dLHigh LDL: 160-189 mg/dLVery High LDL: greater than or equal to 190 mg/dL HDL Cholesterol 37(L) >40 mg/dL [facility] Comment:Desirable HDL: great er than 40 mg/dL Note: This HDL assay may give artificially low results in patients with liver disease. Blood Venous blood specimen / Unknown 05/24/2024 8:27 AM EST 05/24/2024 8:27 AM EST us Aneseh Oliveira MD LAB BLOOD ORDERABLES Final Resul t [facility] [address] [place] [phone] * (ABNORMAL) POCT HGB A1C (05/18/2024 10:47 AM EST) Pathologist [facility] Hemoglobin A1C 8.9(A) 4.0 - 6.0 % Blood 05/18/2024 10:4 7 AM EST us Aneesh Oliveira MD POINT OF CARE TEST ENTER/EDIT OR DERABLES Final Result * (ABNORMAL) Colonoscopy (02/10/2023) [facility] Colonoscopy Abnormal(A ) Normal us Aneesh Oliveira MD HEALTH MAINTENANCE Final Result * HEPATITIS C AB W/REFL TO HCV RNA, QN, PCR (11/25/2020 10:49 AM EDT) Pathologist [facility] HEPATITIS C ANTIBODY NON-REACT TOM NON-REACT TOM [facility] INDEX 0.00 <1.00 [facility] Comment: ?? HCV antibody was non-reactive. There is no laboratory ?? evidence of HCV infection. ?? In most cases, no further action is required. However, if recent HCV exposure is suspected, a test for HCV RNA (test code 38631) is suggested. ?? For additional information please refer to http://education.Dolos[employer]/faq/IBK77e5 (This link is being provided for informational/ educational purposes only.) ?? 11/25/2020 10:4 9 AM EDT us Aneeshkayden Oliveira MD HISTORICAL/NON ORDERABLE LABS Fi nal Result [facility] [address] from Last 3 Months or Most Recently Relevant to Health Maintenance Insurance [facility] ST[facility] UHC DUAL COMPLETE DENTAL - [facility] Care Teams Tray Checker Relationship Specialty Start Date End Date Name, MD Aneesh [address] [place] [address] PCP - General Family Medicine 02/14/18 Sandra Rasheed PharmD [address] [place] [address] Pharmacist Internal Medicine 08/24/24
--- OUTSIDE RECORDS SUMMARY | 2024-09-05 12:24 | XMS_ITS | Encounter Summary ---
Author Organization [employer] Address [address] [facility] 7t [place] [address] Care Team Providers Care Group Practice Pediatrician Name Role Phone Name, Aneesh RIVERS Primary Care Provider [phone] Sandra Rasheed PharmD Unavailable [phone] Reason for Visit * Reason Comments Med Refill Encounter Details Date Type Department Care Team ([facility] st Contact Info) Description 09/05/2024 Refill [facility] [address] [place] [address] Name, MD Aneesh [address] [place] [address] Social History Tobacco Use Types Packs/Day Years [...] AM EDT Medication Management [facility] [address] [place] [phone] Sandra Rasheed, PharmD [address] [place] [address] 09/26/2024 10:45 AM EDT Office Visit [facility] [address] [place] [address] Aneesh Oliveira MD [address] [place] [address] 11/30/2024 10:00 AM EDT Office Visit [facility] [address] [place] [phone] Nathanael, Jayne, OD [address] [place] [address] documented as of this encounter Visit Diagnoses Not on filedocumented in this encounter Additional Health Concerns Assessment Noted Time PHQ-9 Depression Total Score: 4 08/23/19 24 9:44 AM EDT documented as of this encounter Care Teams Group Practice Pediatrician Relationship Specialty Start Date End Date Aneesh Oliveira MD [address] [place] [phone] PCP - General Family Medicine 02/14/18 Sandra Rasheed, Javi [address] [place] [address] Pharmacist Internal Medicine 08/24/24 documented as of this encounter
--- OUTSIDE RECORDS SUMMARY | 2024-09-05 12:24 | XMS_ITS | Encounter Summary ---
Author Organization [employer] Address [address] [facility] [address] [place] [address] Care Team Providers Care Doormaker Name Role Phone Name, Aneesh RIVERS Primary Care Provider [phone] Sandra Rasheed PharmD Unavailable [phone] Reason for Visit * Reason Onset Date Comments Appointment Request 07/17/2024 Encounter Details Date Type Department Care Team ([facility] st Contact Info) Description 07/17/2024 Telephone [facility] [address] [place], [place] [phone] Name, MD Aneesh [address] [place] [address] Appointment Request Social History Tobacco Use Types [...] r/s apt for 07/17/24. Contact pt at [phone] documented in this encounter Plan of Treatment Upcoming Encounters Date Type Department Care Team ([facility] st Contact Info) Description 09/26/2024 9:00 AM EDT Medication Management [facility] [address] [place] [phone] Sandra Rasheed, PharmD [address] [place] [address] 09/26/2024 10:45 AM EDT Office Visit [facility] [address] [place] [phone] Name, MD Aneesh [address] [place] [address] 11/30/2024 10:00 AM EDT Office Visit [facility] [address] [place] [address] Jayne Huffman, OD [address] [place] [address] documented as of this encounter Visit Diagnoses Not on filedocumented in this encounter Additional Health Concerns Assessment Noted Time PHQ-9 Depression Total Score: 4 08/23/19 24 9:44 AM EDT documented as of this encounter Care Teams Doormaker Relationship Specialty Start Date End Date Name, MD Aneesh [address] [place] [address] PCP - General Family Medicine 02/14/18 Sandra Rasheed PharmD [address] [place] [address] Pharmacist Internal Medicine 08/24/24 documented as of this encounter
--- OUTSIDE RECORDS SUMMARY | 2024-09-05 12:24 | XMS_ITS | Encounter Summary ---
Author Organization [employer] Address [address] [facility] [address] [place] [address] Care Team Providers Care Stock Speculator Name Role Phone Name, Aneesh RIVERS Primary Care Provider [phone] Sandra Rasheed PharmD Unavailable [phone] Reason for Visit * Reason Comments Med Refill Encounter Details Date Type Department Care Team ([facility] st Contact Info) Description 08/18/2023 Refill [facility] [address] [place], [place] [phone] Name, MD Aneesh [address] [place] [address] Social History Tobacco Use Types Packs/Day Years [...] Medication Management [facility] [address] [place] [phone] Sandra Rasheed PharmD [address] [place] [address] 09/26/2024 10:45 AM EDT Office Visit [facility] [address] [place] [phone] Name, MD Aneesh [address] [place] [address] 11/30/2024 10:00 AM EDT Office Visit [facility] [address] [place] [address] Nathanael, Jayne, OD [address] [place] [address] documented as of this encounter Visit Diagnoses Not on filedocumented in this encounter Care Teams Stock Speculator Relationship Specialty Start Date End Date Name, MD Aneesh [address] [place] [phone] PCP - General Family Medicine 02/14/18 Sandra Rasheed PharmD [address] [place] [address] Pharmacist Internal Medicine 08/24/24 documented as of this encounter
--- OUTSIDE RECORDS SUMMARY | 2024-09-05 12:24 | XMS_ITS | Encounter Summary ---
Author Organization [employer] Address [address] [facility] [address] [place] [address] Care Team Providers Care Correspondence Clerk Name Role Phone Name, Aneesh RIVERS Primary Care Provider [phone] Sandra Rasheed PharmD Unavailable [phone] Reason for Visit * Reason Onset Date Comments FYI 08/23/2023 Encounter Details Date Type Department Care Team ([facility] st Contact Info) Description 08/23/2023 Telephone [facility] [address] [place] [address] Name, MD Aneesh [address] [place] [address] FYI Social History Tobacco Use Types Packs/Day [...] 3:03 PM EDT Tc from Leidy with [facility] stating pt no longer wants to continue care with them. Leidy stated pt no showed 3 appts in a row and when asked about it pt said it was due to to transportation. Pt claims they are irresponsible and that they don't communicate. Pt stated he will continue care with PCP. If any questions please contact Leidy at [phone]. documented in this encounter Plan of Treatment Upcoming Encounters Date Type Department Care Team ([facility] st Contact Info) Description 09/26/2024 9:00 AM EDT Medication Management [facility] [address] [place] [address] Sandra Rasheed, PharmD [address] [place] [address] 09/26/2024 10:45 AM EDT Office Visit [facility] [address] [place] [address] Name, MD Aneesh [address] [place] [address] 11/30/2024 10:00 AM EDT Office Visit [facility] [address] [place] [address] Nathanael, Jayne, OD [address] [place] [address] documented as of this encounter Visit Diagnoses Not on filedocumented in this encounter Additional Health Concerns Assessment Noted Time PHQ-9 Depression Total Score: 4 08/23/19 24 9:44 AM EDT documented as of this encounter Care Teams Correspondence Clerk Relationship Specialty Start Date End Date Name, MD Aneesh [address] [place] [address] PCP - General Family Medicine 02/14/18 Sandra Rasheed PharmD [address] [place] [address] Pharmacist Internal Medicine 08/24/24 documented as of this encounter
== END 2024-09-05 11:34 | disposition home or self-care (01) ==
PROVIDERS: PCP Internal Medicine Geriatric Medicine; Visit Provider Internal Medicine
DX: K59.00 Constipation, unspecified (principal); K57.30 Diverticulosis of large intestine without perforation or abscess without bleeding; Z86.0100 Personal history of colon polyps, unspecified; K76.0 Fatty (change of) liver, not elsewhere classified
CPT/HCPCS: 99214

== ENCOUNTER → 2024-09-05 10:32 | Outpatient (BNVA) | payer OTHER, SELFPAY | PROVIDERS: PCP Internal Medicine Geriatric Medicine; Visit Provider Internal Medicine | DX: K59.04 Chronic idiopathic constipation (principal); K57.30 Diverticulosis of large intestine without perforation or abscess without bleeding; K76.0 Fatty (change of) liver, not elsewhere classified; Z86.0100 Personal history of colon polyps, unspecified | CPT/HCPCS: 99212 ==

== ENCOUNTER 2024-09-13 12:30 | Outpatient (REF) | payer OTHER, SELFPAY ==
--- NOTE | ~2024-09-13 | US_ITS ---
CLINICAL HISTORY: LEFT LEG HX OF DVT Venous duplex ultrasound left lower extremity Comparison: 08/30/2024 01:21 PM EDT: US Findings: The visualized deep veins are fully compressible with normal Doppler color flow and spectral tracings. No popliteal cyst. IMPRESSION: 1. Negative for left lower extremity deep vein thrombosis. This document has been electronically signed by: Ye Donohue MD on 09/14/2024 09:02:30
--- OUTSIDE RECORDS SUMMARY | 2024-09-13 13:36 | XMS_ITS | Clinical Summary ---
Author Organization [facility] Address [address] [place] [address] [place] [phone] Phone Care Team Providers Care Rehab Consultant Name Role Phone Name, Aneesh RIVERS Primary Care Provider Allergies Active Allergy Reactions Criticality Noted Date [...] Vaccine (#1) 2024 8, 05/17/2016, 05/11/2012 Insurance [facility] DUAL [employer] DC [facility] [employer] Care Teams Rehab Consultant Relationship Specialty Start Date End Date Name, MD Aneesh [address] [place] [id number] PCP - General 06/23/20
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
--- OUTSIDE RECORDS SUMMARY | 2024-09-13 13:36 | XMS_ITS | Encounter Summary ---
Author Organization [employer] Address 75 [facility] 7t [place] [address] Care Team Providers Care Data Collector Name Role Phone Name, Aneesh RIVERS Primary Care Provider [phone] Sandra Rasheed PharmD Unavailable [phone] Reason for Visit * Reason Comments Med Refill Encounter Details Date Type Department Care Team ([facility] st Contact Info) Description 01/12/2024 Refill [facility] CHC MED & PEDS [address] [place], [place] [phone] Name, MD Aneesh [address] [place] [address] Chronic low back pain, unspecified back pain [...] Description 09/26/2024 9:00 AM EDT Medication Management [facility] MEDICINE [address] [place] [address] Sandra Rasheed, PharmD [address] [place] [address] 09/26/2024 10:45 AM EDT Office Visit [facility] MEDICINE [address] [place] [address] Aneesh Oliveira MD [address] [place] [address] 11/30/2024 10:00 AM EDT Office Visit [facility] OPTOMETRY [address] [place] [address] Nathanael, Jayne, OD 230 [place] [address] documented as of this encounter Visit Diagnoses Diagnosis Chronic low back pain, unspecified back pain laterality, unspecified whether sciatica present documented in this encounter Additional Health Concerns Assessment Noted Time PHQ-9 Depression Total Score: 4 08/23/19 24 9:44 AM EDT documented as of this encounter Care Teams Data Collector Relationship Specialty Start Date End Date Aneesh Oliveira MD [address] [place] [address] PCP - General Family Medicine 02/14/18 Sandra Rasheed, Javi [address] [place] [address] Pharmacist Internal Medicine 08/24/24 documented as of this encounter
--- OUTSIDE RECORDS SUMMARY | 2024-09-13 13:36 | XMS_ITS | Encounter Summary ---
Author Organization [employer] Address 75 [facility] 7t [place] [address] Care Team Providers Care Product Marketing Executive Name Role Phone Name, Aneesh RIVERS Primary Care Provider [phone] Sandra Rasheed PharmD Unavailable [phone] Reason for Visit * Reason Comments Med Refill Encounter Details Date Type Department Care Team ([facility] Contact Info) Description 05/02/2024 Refill [facility] MEDICINE [address] [place] [address] Name, MD Aneesh [address] [place] [address] Chronic constipation Social History Tobacco Use Types [...] 9:00 AM EDT Medication Management [facility] MEDICINE [address] [place] [address] Sandra Rasheed, PharmD [address] [place] [address] 09/26/2024 10:45 AM EDT Office Visit [facility] MEDICINE [address] [place] [address] Aneesh Oliveira MD [address] [place] [address] 11/30/2024 10:00 AM EDT Office Visit [facility] OPTOMETRY [address] [place] [address] Nathanael, Jayne, OD [address] [place] [address] documented as of this encounter Visit Diagnoses Diagnosis Chronic constipation Unspecified constipation documented in this encounter Additional Health Concerns Assessment Noted Time PHQ-9 Depression Total Score: 4 08/23/19 24 9:44 AM EDT documented as of this encounter Care Teams Product Marketing Executive Relationship Specialty Start Date End Date Aneesh Oliveira MD [address] [place] [address] PCP - General Family Medicine 02/14/18 Sandra Rasheed PharmD [address] [place] [address] Pharmacist Internal Medicine 08/24/24 documented as of this encounter
--- OUTSIDE RECORDS SUMMARY | 2024-09-13 13:36 | XMS_ITS | Encounter Summary ---
Author Organization [employer] Address 75 [facility] 7t [place] [address] Care Team Providers Care Boots And Shoes Supervisor Name Role Phone Name, Aneesh RIVERS Primary Care Provider [phone] Sandra Rasheed PharmD Unavailable [phone] Reason for Visit * Reason Onset Date Comments Appointment Request 07/17/2024 Encounter Details Date Type Department Care Team ([facility] st Contact Info) Description 07/17/2024 Telephone [facility] MEDICINE [address] [place], [place] [phone] Name, MD Aneesh [address] [place] [address] Appointment Request Social History Tobacco Use Types [...] r/s apt for 07/17/24. Contact pt at [phone] documented in this encounter Plan of Treatment Upcoming Encounters Date Type Department Care Team ([facility] st Contact Info) Description 09/26/2024 9:00 AM EDT Medication Management [facility] MEDICINE [address] [place] [address] Sandra Rasheed, PharmD [address] [place] [address] 09/26/2024 10:45 AM EDT Office Visit [facility] MEDICINE [address] [place] [address] Name, MD Aneesh [address] [place] [address] 11/30/2024 10:00 AM EDT Office Visit [facility] OPTOMETRY [address] [place] [address] Jayne Huffman, OD 230 [place] [address] documented as of this encounter Visit Diagnoses Not on filedocumented in this encounter Additional Health Concerns Assessment Noted Time PHQ-9 Depression Total Score: 4 08/23/19 24 9:44 AM EDT documented as of this encounter Care Teams Boots And Shoes Supervisor Relationship Specialty Start Date End Date Name, MD Aneesh [address] [place] [address] PCP - General Family Medicine 02/14/18 Sandra Rasheed PharmD 230 [place] [address] Pharmacist Internal Medicine 08/24/24 documented as of this encounter
--- OUTSIDE RECORDS SUMMARY | 2024-09-13 13:36 | XMS_ITS | Encounter Summary ---
Author Organization [employer] Address 75 [facility] 7t [place] [address] Care Team Providers Care Sample Puller Name Role Phone Name, Aneesh RIVERS Primary Care Provider [phone] Sandar Rasheed PharmD Unavailable [phone] Reason for Visit * Reason Comments Med Refill Encounter Details Date Type Department Care Team ([facility] st Contact Info) Description 09/12/2024 Refill [facility] MEDICINE [address] [place] [address] Name, MD Aneesh [address] [place] [address] Type 2 diabetes mellitus with other specified complication, without long-term current use of insulin ([facility]); Chronic low back pain, unspecified back pain [...] Description 09/26/2024 9:00 AM EDT Medication Management [facility] MEDICINE [address] [place] [address] Sandra Rasheed, PharmD 230 [place] [address] 09/26/2024 10:45 AM EDT Office Visit [facility] MEDICINE [address] [place] [address] Name, MD Aneesh 230 [place] [address] 11/30/2024 10:00 AM EDT Office Visit [facility] OPTOMETRY [address] [place] [address] Jayne Huffman, OD 230 [place] [address] documented as of this encounter Visit Diagnoses Diagnosis Type 2 diabetes mellitus with other specified complication, without long-term current use of insulin ([facility]) Chronic low back pain, unspecified back pain laterality, unspecified whether sciatica present documented in this encounter Additional Health Concerns Assessment Noted Time PHQ-9 Depression Total Score: 4 08/23/19 24 9:44 AM EDT documented as of this encounter Care Teams Sample Puller Relationship Specialty Start Date End Date Name, MD Aneesh [address] [place] [address] PCP - General Family Medicine 02/14/18 Sandra Rasheed PharmD [address] [place] [address] Pharmacist Internal Medicine 08/24/24 documented as of this encounter
--- OUTSIDE RECORDS SUMMARY | 2024-09-13 13:36 | XMS_ITS | Encounter Summary ---
Author Organization [employer] Address [address] [facility] [address] 7t [place] [address] Care Team Providers Care Group Contract Analyst Name Role Phone Name, Aneesh RIVERS Primary Care Provider [phone] Sandra Rasheed PharmD Unavailable [phone] Encounter Details Date Type Department Care Team (Late st Contact Info) Description 03/23/2023 Orders Only [facility] CHC MED & PEDS [address] [place], [place] [phone] Amber Brantley LPN Social History Tobacco Use [...] Description 09/26/2024 9:00 AM EDT Medication Management [facility] MEDICINE [address] [place] [address] Sandra Rasheed PharmD 230 [place] [address] 09/26/2024 10:45 AM EDT Office Visit [facility] MEDICINE 230 [place] [address] Name, MD Aneesh 230 [place] [address] 11/30/2024 10:00 AM EDT Office Visit [facility] OPTOMETRY [address] [place] [address] Nathanael, Jayne, OD 230 [place] [address] documented as of this encounter Visit Diagnoses Not on filedocumented in this encounter Care Teams Group Contract Analyst Relationship Specialty Start Date End Date Name, MD Aneesh [address] [place] [address] PCP - General Family Medicine 02/14/18 Sandra Rasheed PharmD [address] [place] [address] Pharmacist Internal Medicine 08/24/24 documented as of this encounter
--- OUTSIDE RECORDS SUMMARY | 2024-09-13 13:36 | XMS_ITS | Encounter Summary ---
Author Organization [employer] Address 75 [facility] 7t [place] [address] Care Team Providers Care Outsole Compressor Name Role Phone Name, Aneesh RIVERS Primary Care Provider [phone] Sandra Rasheed PharmD Unavailable [phone] Reason for Visit * Reason Comments Med Refill Encounter Details Date Type Department Care Team ([facility] st Contact Info) Description 08/18/2023 Refill [facility] MEDICINE [address] [place], [place] [phone] Name, MD Aneesh [address] [place] [address] Social History Tobacco Use Types Packs/Day Years [...] Description 09/26/2024 9:00 AM EDT Medication Management [facility] MEDICINE [address] [place] [address] Sandra Rasheed PharmD [address] [place] [address] 09/26/2024 10:45 AM EDT Office Visit [facility] MEDICINE [address] [place] [address] Name, MD Aneesh [address] [place] [address] 11/30/2024 10:00 AM EDT Office Visit [facility] OPTOMETRY [address] [place] [address] Nathanael, Jayne, OD 230 [place] [address] documented as of this encounter Visit Diagnoses Not on filedocumented in this encounter Care Teams Outsole Compressor Relationship Specialty Start Date End Date Name, MD Aneesh [address] [place] [address] PCP - General Family Medicine 02/14/18 Sandra Rasheed PharmD [address] [place] [address] Pharmacist Internal Medicine 08/24/24 documented as of this encounter
--- OUTSIDE RECORDS SUMMARY | 2024-09-13 13:36 | XMS_ITS | Encounter Summary ---
Author Organization [employer] Address 75 [facility] 7t [place] [address] Care Team Providers Care Talent Sourcer Name Role Phone Name, Aneesh RIVERS Primary Care Provider [phone] Sandra Rasheed PharmD Unavailable [phone] Reason for Visit * Reason Onset Date Comments FYI 08/23/2023 Encounter Details Date Type Department Care Team ([facility] st Contact Info) Description 08/23/2023 Telephone [facility] MEDICINE [address] [place] [address] Name, MD Aneesh [address] [place] [address] FYI Social History Tobacco Use Types Packs/Day [...] 3:03 PM EDT Tc from Leidy with [facility] stating pt no longer wants to continue care with them. Leidy stated pt no showed 3 appts in a row and when asked about it pt said it was due to to transportation. Pt claims they are irresponsible and that they don't communicate. Pt stated he will continue care with PCP. If any questions please contact Leidy at [phone]. documented in this encounter Plan of Treatment Upcoming Encounters Date Type Department Care Team ([facility] st Contact Info) Description 09/26/2024 9:00 AM EDT Medication Management [facility] MEDICINE [address] [place] [address] Sandra Rasheed, PharmD [address] [place] [address] 09/26/2024 10:45 AM EDT Office Visit [facility] MEDICINE [address] [place] [address] Name, MD Aneesh [address] [place] [address] 11/30/2024 10:00 AM EDT Office Visit [facility] OPTOMETRY [address] [place] [address] Nathanael, Jayne, OD 230 [place] [address] documented as of this encounter Visit Diagnoses Not on filedocumented in this encounter Additional Health Concerns Assessment Noted Time PHQ-9 Depression Total Score: 4 08/23/19 24 9:44 AM EDT documented as of this encounter Care Teams Talent Sourcer Relationship Specialty Start Date End Date Name, MD Aneesh [address] [place] [address] PCP - General Family Medicine 02/14/18 Sandra Rasheed PharmD [address] [place] [address] Pharmacist Internal Medicine 08/24/24 documented as of this encounter
--- OUTSIDE RECORDS SUMMARY | 2024-09-13 13:36 | XMS_ITS | Data Portability ---
Author Organization [place] [facility] Address [address] [address] Care Team Providers Care Research Programmer Name Role Phone NAME, LAURENT Primary Care [...] vocal quality. I recommended he see a medical engineer, voice specalist, to evaluate him and see if he would be a good candidate for a more permanent medialization procedure. Patient is willing and interested to travel to [place] to hear options. - Referral to [facility] Otolaryngology - Dr. Stafford or Dr. Machuca for discussion [email or web address] Not available 05/04/2024 08:27:45 Plan of Treatment Reminders Order Date Submit Date Provider Last Modified By Organization Details Last Modified Time Details Appointments None recorded. Lab None recorded. Referral otolaryngol ogist referral - Attn: Betsy. Dr. Machuca or Dr. Stafford - bilateral vocal cord paralysis. 2023 024 [email or web address] 2 [facility] Otolaryngolog y, [address], [place], [address], 4 10:41:11 Procedures None recorded. Surgeries None recorded. Imaging None recorded. Medication Orders None recorded. Patient TargetsNo targets recorded. Patient InstructionsNo instructions recorded. Reason for Referral Lumber Tying Machine Operator Referral fo r Dysphonia Attn: Birgit. Dr. Machuca or Dr. Stafford - bilateral vocal cord paralysis. 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 4 08:24:41 Problem Notes None recorded. Procedures Surgical History Date Name Laterality Status Provider Name and Address Organization Details Recorded Time 05/03/20 24 Fiberoptic Laryngoscopy (Comprehensive) completed RYAN MAYA MD [address] [place] [address], [phone], [facility] 05/04/2024 08:24:07 Imaging Results None recorded. [...] Updated DateTime 05/03/2024 167.64 cm 34.7 kg/m2 53922.36 g Natalilinda Ramírez [place] [facility] 05/03/2024 13:28:04 Social History None recorded. Functional Status None recorded. Mental Status None recorded. Family History Nothing Reported. Medical History No medical history recorded. Past Encounters Encounter ID Performer Location Encounter Start Date Encounter Closed Date Diagnosis/Indication Diagnosis SNOMED-CT Code Diagnosis ICD10 Code Diagnosis Note [id number] RYAN MAYA MD [facility] [address] [address] 05/03/2024 13:04:26 05/03/2024 16:54:58 Paralysis of larynx 76988959 J38.02 Dysphonia 15331256 R49.9 Health Concerns Section Related Observation LastModified by Organization Detai ls LastModified Time None Recorded Concern Status LastModified by Organization Details LastModified Time None Recorded Advance Directives Directive None Recorded Payers Encounter Date Sequence Insurance Name Policy Number Policy Hood Covered Member ID Hood Member ID Guarantor Name 05/03/2024 1 [facility] (MEDICARE REPLACEMENT/ ADVANTAGE - HMO) Josue Mace [id number] Josue Mace 05/03/2024 2 [place] [facility] Josue Mace [id number] Josue Mace Notes Date Note Type Note Provider Name and Address Organization Details Recorded Time 05/03/2024 text/html 73yo gentleman rodrigo miguel presents today for evaluation of bilateral vocal cord paralysis and dysphonia. He has had difficulty with his voice for about 5 years. He underwent a traumatic intubation at [facility] in 2018 in the setting of an anaphylactic event. Following, this resulted in dysphonia and dyspnea with exertion. He was seen by otolaryngology in [place] - Dr. John Coppola. At that time, [...] he takes aspirin 81 & clopidogrel. RYAN MAAY MD [address] [place] [address], [phone], [facility] 05/04/2024 20:31:01
--- OUTSIDE RECORDS SUMMARY | 2024-09-13 13:36 | XMS_ITS | Encounter Summary ---
Author Organization [employer] Address 75 [facility] 7t [place] [address] Care Team Providers Care Artificial Breeding Ranch Supervisor Name Role Phone Name, Aneesh RIVERS Primary Care Provider [phone] Sandra Rasheed PharmD Unavailable [phone] Reason for Visit * Reason Comments Med Refill Encounter Details Date Type Department Care Team ([facility] Contact Info) Description 04/09/2024 Refill [facility] CHC MED & PEDS [address] [place], [place] [phone] Name, MD Aneesh [address] [place] [address] Chronic low back pain, unspecified back pain [...] Medication Management [facility] MEDICINE [address] [place] [address] Sandra Rasheed, PharmD [address] [place] [address] 09/26/2024 10:45 AM EDT Office Visit [facility] MEDICINE [address] [place] [address] Aneesh Oliveira MD [address] [place] [address] 11/30/2024 10:00 AM EDT Office Visit [facility] OPTOMETRY [address] [place] [address] Nathanael, Jayne, OD 230 [place] [address] documented as of this encounter Visit Diagnoses Diagnosis Chronic low back pain, unspecified back pain laterality, unspecified whether sciatica present documented in this encounter Additional Health Concerns Assessment Noted Time PHQ-9 Depression Total Score: 4 08/23/19 24 9:44 AM EDT documented as of this encounter Care Teams Artificial Breeding Ranch Supervisor Relationship Specialty Start Date End Date Aneesh Oliveira MD [address] [place] [address] PCP - General Family Medicine 02/14/18 Sandra Rasheed, Javi [address] [place] [address] Pharmacist Internal Medicine 08/24/24 documented as of this encounter
--- OUTSIDE RECORDS SUMMARY | 2024-09-13 13:36 | XMS_ITS | Encounter Summary ---
Author Organization [employer] Address 75 [facility] 7t [place] [address] Care Team Providers Care Tick Sewer Name Role Phone Name, Aneesh RIVERS Primary Care Provider [phone] Sandra Rasheed PharmD Unavailable [phone] Reason for Visit * Reason Comments Med Refill Encounter Details Date Type Department Care Team ([facility] st Contact Info) Description 08/19/2023 Refill [facility] MEDICINE [address] [place] [address] Name, MD Aneesh [address] [place] [address] Social History Tobacco Use Types Packs/Day Years [...] Description 09/26/2024 9:00 AM EDT Medication Management [facility] MEDICINE [address] [place] [address] Sandra Rasheed PharmD [address] [place] [address] 09/26/2024 10:45 AM EDT Office Visit [facility] MEDICINE [address] [place] [address] Name, MD Aneesh [address] [place] [address] 11/30/2024 10:00 AM EDT Office Visit [facility] OPTOMETRY [address] [place] [address] Nathanael, Jayne, OD [address] [place] [address] documented as of this encounter Visit Diagnoses Not on filedocumented in this encounter Care Teams Tick Sewer Relationship Specialty Start Date End Date Name, MD Aneesh [address] [place] [address] PCP - General Family Medicine 02/14/18 Sandra Rasheed, PharmD [address] [place] [address] Pharmacist Internal Medicine 08/24/24 documented as of this encounter
--- OUTSIDE RECORDS SUMMARY | 2024-09-13 13:36 | XMS_ITS | Encounter Summary ---
Author Organization [employer] Address 75 [facility] 7t [place] [address] Care Team Providers Care Railroad Purchasing Agent Name Role Phone Name, Aneesh RIVERS Primary Care Provider [phone] Sandra Rasheed PharmD Unavailable [phone] Reason for Visit * Reason Comments Med Refill Encounter Details Date Type Department Care Team ([facility] st Contact Info) Description 06/25/2024 Refill [facility] MEDICINE [address] [place] [address] Name, MD Aneesh 230 [place] [address] Hypertension, unspecified type; Prostatism; Type 2 diabetes mellitus with hyperglycemia ([facility]/HCC); half-way (current) use of insulin ([facility]) Social History Tobacco Use Types [...] Description 09/26/2024 9:00 AM EDT Medication Management [facility] [address] [place] [address] Sandra Rasheed, PharmD 230 [place] [address] 09/26/2024 10:45 AM EDT Office Visit [facility] [address] [place] [address] Name, MD Aneesh 230 [place] [address] 11/30/2024 10:00 AM EDT Office Visit [facility] OPT[facility]RY [address] [place] [address] Jayne Huffman, BRYANT 230 [place] [address] documented as of this encounter Visit Diagnoses Diagnosis Hypertension, unspecified type Prostatism Unspecified hyperplasia of prostate without urinary obstruction and other lower urinary tract symptoms (LUTS) Type 2 diabetes mellitus with hyperglycemia (CMS/HCC) parts counterman (current) use of insulin (CMS/HCC) documented in this encounter Additional Health Concerns Assessment Noted Time PHQ-9 Depression Total Score: 4 08/23/19 24 9:44 AM EDT documented as of this encounter Care Teams Railroad Purchasing Agent Relationship Specialty Start Date End Date Name, MD Aneesh 230 [place] [address] PCP - General Family Medicine 02/14/18 Sandra Rasheed PharmD 230 [place] [address] Pharmacist Internal Medicine 08/24/24 documented as of this encounter
== END 2024-09-13 12:31 | disposition home or self-care (01) ==
LOC: HO.HMGCX 12:30
PROVIDERS: PCP Internal Medicine Geriatric Medicine; Visit Provider Internal Medicine Geriatric Medicine
DX: I82.422 Acute embolism and thrombosis of left iliac vein (principal)
CPT/HCPCS: 93971

== ENCOUNTER → 2024-09-13 12:33 | Outpatient (BNV) | payer OTHER, SELFPAY | PROVIDERS: PCP Internal Medicine Geriatric Medicine; Visit Provider Specialist | DX: Z86.718 Personal history of other venous thrombosis and embolism (principal) | CPT/HCPCS: 93971 ==

== ENCOUNTER 2024-09-21 07:53 | Outpatient (REF) | payer OTHER, SELFPAY ==
--- OUTSIDE RECORDS SUMMARY | 2024-09-21 07:56 | XMS_ITS | Encounter Summary ---
Author Organization [employer] Address 75 [facility] 7t [place] [address] Care Team Providers Care Bill Clerk Name Role Phone Name, Aneesh RIVERS Primary Care Provider [phone] Sandra Rasheed PharmD Unavailable [phone] Reason for Visit * Reason Comments Med Refill Encounter Details Date Type Department Care Team ([facility] st Contact Info) Description 09/20/2024 Refill [facility] [address] [place] [address] Name, MD Aneesh 230 [place] [address] Prostatism Social History Tobacco Use Types Packs/Day [...] Medication Management [facility] [address] [place] [address] Sandra Rasheed, PharmD 230 [place] [address] 09/26/2024 10:45 AM EDT Office Visit [facility] [address] [place] [address] Aneesh Oliveira MD 230 [place] [address] 11/30/2024 10:00 AM EDT Office Visit [facility] [address] [place] [address] Nathanael, Jayne, OD 230 [place] [address] documented as of this encounter Visit Diagnoses Diagnosis Prostatism Unspecified hyperplasia of prostate without urinary obstruction and other lower urinary tract symptoms (LUTS) documented in this encounter Additional Health Concerns Assessment Noted Time PHQ-9 Depression Total Score: 4 08/23/19 24 9:44 AM EDT documented as of this encounter Care Teams Bill Clerk Relationship Specialty Start Date End Date Aneesh Oliveira MD 230 [place] [address] PCP - General Family Medicine 02/14/18 Sandra Rasheed, Javi [address] [place] [address] Pharmacist Internal Medicine 08/24/24 documented as of this encounter
--- OUTSIDE RECORDS SUMMARY | 2024-09-21 07:56 | XMS_ITS | Encounter Summary ---
Author Organization [employer] Address 75 [facility] 7t [place] [address] Care Team Providers Care Helmet Hat Sweatband Puncher Name Role Phone Name, Aneesh RIVERS Primary Care Provider [phone] Sandra Rasheed PharmD Unavailable [phone] Reason for Visit * Reason Comments Med Refill Encounter Details Date Type Department Care Team ([facility] st Contact Info) Description 09/20/2024 Refill [facility] CHC MED & PEDS [address] [place], [place] [phone] [facility] 230 [place] [address] Prostatism Social History Tobacco Use Types Packs/Day [...] Description 09/26/2024 9:00 AM EDT Medication Management [facility] MEDICINE 230 [place] [address] Sandra Rasheed, PharmD 230 [place] [address] 09/26/2024 10:45 AM EDT Office Visit [facility] MEDICINE [address] [place] [address] Name, MD Aneesh 230 [place] [address] 11/30/2024 10:00 AM EDT Office Visit [facility] OPTOMETRY [address] [place] [address] Nathanael, Jayne, OD 230 [place] [address] documented as of this encounter Visit Diagnoses Diagnosis Prostatism Unspecified hyperplasia of prostate without urinary obstruction and other lower urinary tract symptoms (LUTS) documented in this encounter Additional Health Concerns Assessment Noted Time PHQ-9 Depression Total Score: 4 08/23/19 24 9:44 AM EDT documented as of this encounter Care Teams Helmet Hat Sweatband Puncher Relationship Specialty Start Date End Date Name, MD Aneesh 230 [place] [address] PCP - General Family Medicine 02/14/18 Sandra Rasheed, Javi [address] [place] [address] Pharmacist Internal Medicine 08/24/24 documented as of this encounter
--- OUTSIDE RECORDS SUMMARY | 2024-09-21 07:56 | XMS_ITS | Encounter Summary ---
Author Organization [employer] Address 75 [facility] 7t [place] [address] Care Team Providers Care Assembler Mechanical Ordnance Name Role Phone Name, Aneesh RIVERS Primary Care Provider [phone] Sandra Rasheed PharmD Unavailable [phone] Reason for Visit * Reason Comments Med Refill Encounter Details Date Type Department Care Team ([facility] st Contact Info) Description 08/18/2023 Refill [facility] MEDICINE 230 [place], [place] [phone] Name, MD Aneesh [address] [place] [address] Social History Tobacco Use Types Packs/Day Years [...] 9:00 AM EDT Medication Management [facility] MEDICINE [address] [place] [address] Sandra Rasheed PharmD [address] [place] [address] 09/26/2024 10:45 AM EDT Office Visit [facility] MEDICINE [address] [place] [address] Name, MD Aneesh [address] [place] [address] 11/30/2024 10:00 AM EDT Office Visit [facility] OPTOMETRY [address] [place] [address] Nathanael, Jayne, OD 230 [place] [address] documented as of this encounter Visit Diagnoses Not on filedocumented in this encounter Care Teams Assembler Mechanical Ordnance Relationship Specialty Start Date End Date Name, MD Aneesh [address] [place] [address] PCP - General Family Medicine 02/14/18 Sandra Rasheed PharmD [address] [place] [address] Pharmacist Internal Medicine 08/24/24 documented as of this encounter
--- OUTSIDE RECORDS SUMMARY | 2024-09-21 07:56 | XMS_ITS | Data Portability ---
Author Organization [place] [facility], Allergy Address [address] [address] Care Team Providers Care Electric Knife Operator Name Role Phone NAME, LAURENT Primary [...] vocal quality. I recommended he see a oil pit attendant, voice specalist, to evaluate him and see if he would be a good candidate for a more permanent medialization procedure. Patient is willing and interested to travel to [place] to hear options. - Referral to [facility] Otol[facility]ology - Dr. Stafford or Dr. Machuca for discussion [email or web address] Not available 05/04/2024 08:27:45 Plan of Treatment Reminders Order Date Submit Date Provider Last Modified By Organization Details Last Modified Time Details Appointments None recorded. Lab None recorded. Referral otolaryngol ogist referral - Attn: Betsy. Dr. Machuca or Dr. Stafford - bilateral vocal cord paralysis. 2023 024 [email or web address] 2 [facility], [address], [place], [address], 4 10:41:11 Procedures None recorded. Surgeries None recorded. Imaging None recorded. Medication Orders None recorded. Patient TargetsNo targets recorded. Patient InstructionsNo instructions recorded. Reason for Referral Correctional Program Officer Referral fo r Dysphonia Attn: Birgit. Dr. Machuca or Dr. Stafford - bilateral vocal cord paralysis. Referring Physician: Ryan Maya, Otolaryngology, Encounter Date: 05/03/2024 Problems Name Problem SNOMED Code Status Onset Date Resolution Date Notes Provider Name and Address Organization Details Recorded Time Paralysis of larynx 24379407 Active 2018 Paralysis of vocal cords and larynx, unspecifie d; Note: Date Diagnosed: 12/25/2018 2:49 PM (J38.00) Not Available [facility] 4 03:24:49 Dysphonia 90734249 Active 2018 Hoarseness ; Note: Date Diagnosed: 12/25/2018 2:49 PM (R49.0) Not Available [facility] 4 03:24:49 Simple goiter 379316233 Active 2018 Goiter NOS; Note: Date Diagnosed: 12/25/2018 2:49 PM (E04.9) Not Available [facility] 4 03:24:49 Paralysis of larynx 06168170 Active 2023 RYAN MAYA MD [address] [place] [address], [phone] , [facility] 4 08:24:41 Problem Notes None recorded. Procedures Surgical History Date Name Laterality Status Provider Name and Address Organization Details Recorded Time 05/03/20 24 Fiberoptic Laryngoscopy (Comprehensive) completed RYAN MAYA MD [address] [place] [address], [phone], [facility] [...] Updated DateTime 05/03/2024 167.64 cm 34.7 kg/m2 65330.36 g Natalilinda Ramírez [place] - [facility] 05/03/2024 13:28:04 Social History None recorded. Functional Status None recorded. Mental Status None recorded. Family History Nothing Reported. Medical History No medical history recorded. Past Encounters Encounter ID Performer Location Encounter Start Date Encounter Closed Date Diagnosis/Indication Diagnosis SNOMED-CT Code Diagnosis ICD10 Code Diagnosis Note [id number] RYAN MAYA MD [facility] [address] [phone] 05/03/2024 13:04:26 05/03/2024 16:54:58 Paralysis of larynx 44734618 J38.02 Dysphonia 51217123 R49.9 Health Concerns Section Related Observation LastModified by Organization Detai ls LastModified Time None Recorded Concern Status LastModified by Organization Details LastModified Time None Recorded Advance Directives Directive None Recorded Payers Encounter Date Sequence Insurance Name Policy Number Policy Hood Covered Member ID Hood Member ID Guarantor Name 05/03/2024 1 [facility] (MEDICARE REPLACEMENT/ ADVANTAGE - HMO) Josue Mace [id number] Josue Mace 05/03/2024 2 [place] [facility] [address] Josue Mace [id number] Josue Mace Notes Date Note Type Note Provider Name and Address Organization Details Recorded Time 05/03/2024 text/html 73yo gentleman rodrigo miguel presents today for evaluation of bilateral vocal cord paralysis and dysphonia. He has had difficulty with his voice for about 5 years. He underwent a traumatic intubation at [facility] in 2018 in the setting of an anaphylactic event. Following, this resulted in dysphonia and dyspnea with exertion. He was seen by otolaryngology in [place] - Dr. John Coppola. At that time, [...] 81 & clopidogrel. RYAN MAYA MD [address] [place] [address], [phone], [facility] - [facility] 05/04/2024 20:31:01
--- OUTSIDE RECORDS SUMMARY | 2024-09-21 07:56 | XMS_ITS | Clinical Summary ---
Author Organization [facility] Address [address] [place] [address] [place] [address] Phone Care Team Providers Care Project Associate Name Role Phone Name, Aneesh RIVERS Primary Care Provider [phone] Allergies Active Allergy Reactions Criticality Noted Date [...] 03/26/2021 Type 2 diabetes mellitus 10/07/2016 Immunizations Immunization Administration Dates Next Due Influenza, Quadrivalent, With [...] - Risk 3-dose series) 2010 Pneumococcal Vaccine: 50+ Ye ars (3 of 3 - PCV) 02/17/2015 02/17/2014, 03/15/2008, 04/14/2000 Diabetes: Ophthalmology Exam 07/10/2020 Diabetes: Pedal Pulse Checked 07/10/2020 Diabetes: Sensory Foot Exam 07/10/2020 Diabetes: Visual Foot Exam 07/10/2020 Diabetes: Hemoglobin A1C 01/07/2023 10/08/2022, 08/12 Influenza Vaccine (Season Ended) 2025 03/14/2018, 05/17/2016, 05/11/2012 Insurance [facility] Dual [place] Dc [facility] Dual [place] Care Teams Project Associate Relationship Specialty Start Date End Date Name, MD Aneesh [address] [place] [address] PCP - General 06/23/20
--- OUTSIDE RECORDS SUMMARY | 2024-09-21 07:56 | XMS_ITS | Encounter Summary ---
Author Organization [employer] Address [address] [facility] [address] 7t [place] [address] Care Team Providers Care Principal Clerk Typist Name Role Phone Name, Aneesh RIVERS Primary Care Provider [phone] Sandra Rasheed PharmD Unavailable [phone] Encounter Details Date Type Department Care Team (Late st Contact Info) Description 03/23/2023 Orders Only [facility] CHC MED & PEDS [address] [place], [place] [phone] Amber Brantley LPN Social History Tobacco Use [...] Description 09/26/2024 9:00 AM EDT Medication Management [facility] MEDICINE 230 [place] [address] Sandra Rasheed PharmD [address] [place] [address] 09/26/2024 10:45 AM EDT Office Visit [facility] MED[facility]INE 230 [place] [address] Name, MD Aneesh [address] [place] [address] 11/30/2024 10:00 AM EDT Office Visit [facility] OPTOMETRY [address] [place] [address] Nathanael, Jayne, OD 230 [place] [address] documented as of this encounter Visit Diagnoses Not on filedocumented in this encounter Care Teams Principal Clerk Typist Relationship Specialty Start Date End Date Name, MD Aneesh [address] [place] [address] PCP - General Family Medicine 02/14/18 Sandra Rasheed PharmD [address] [place] [address] Pharmacist Internal Medicine 08/24/24 documented as of this encounter
--- OUTSIDE RECORDS SUMMARY | 2024-09-21 07:56 | XMS_ITS | Encounter Summary ---
Author Organization [employer] Address [address] [facility] 7t [place] [address] Care Team Providers Care Consular Officer Name Role Phone Name, Aneesh RIVERS Primary Care Provider [phone] Sandra Rasheed PharmD Unavailable [phone] Reason for Visit * Reason Comments Med Refill Encounter Details Date Type Department Care Team ([facility] Contact Info) Description 04/09/2024 Refill [facility] CHC MED & PEDS [address] [place], [place] [phone] Name, MD Aneesh [address] [place] [address] Chronic low back pain, unspecified back pain [...] Description 09/26/2024 9:00 AM EDT Medication Management [facility] MEDICINE [address] [place] [address] Sandra Rasheed, PharmD [address] [place] [address] 09/26/2024 10:45 AM EDT Office Visit [facility] MEDICINE 230 [place] [address] Aneesh Oliveira MD [address] [place] [address] 11/30/2024 10:00 AM EDT Office Visit [facility] OPTOMETRY [address] [place] [address] Nathanael, Jayne, OD 230 [place] [address] documented as of this encounter Visit Diagnoses Diagnosis Chronic low back pain, unspecified back pain laterality, unspecified whether sciatica present documented in this encounter Additional Health Concerns Assessment Noted Time PHQ-9 Depression Total Score: 4 08/23/19 24 9:44 AM EDT documented as of this encounter Care Teams Consular Officer Relationship Specialty Start Date End Date Aneesh Oliveira MD [address] [place] [address] PCP - General Family Medicine 02/14/18 Sandra Rasheed, Javi [address] [place] [address] Pharmacist Internal Medicine 08/24/24 documented as of this encounter
--- OUTSIDE RECORDS SUMMARY | 2024-09-21 07:56 | XMS_ITS | Encounter Summary ---
Author Organization [employer] Address [address] [facility] 7t [place] [address] Care Team Providers Care Field Training Manager Name Role Phone Name, Aneesh RIVERS Primary Care Provider Sandra Rasheed PharmD Unavailable [phone] Reason for Visit * Reason Comments Med Refill Encounter Details Date Type Department Care Team ([facility] st Contact Info) Description 06/25/2024 Refill [facility] MEDICINE [address] [place] [address] Name, MD Aneesh [address] [place] [address] Hypertension, unspecified type; Prostatism; Type 2 diabetes mellitus with hyperglycemia ([facility]/HCC); 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 ([facility]) Social History Tobacco Use Types Packs/Day [...] Description 09/26/2024 9:00 AM EDT Medication Management [facility] MEDICINE [address] [place] [address] Sandra Rasheed, PharmD [address] [place] [address] 09/26/2024 10:45 AM EDT Office Visit [facility] MEDICINE [address] [place] [address] Name, MD Aneesh [address] [place] [address] 11/30/2024 10:00 AM EDT Office Visit [facility] OPTOMETRY [address] [place] [address] Jayne Huffman, BRYANT [address] [place] [address] documented as of this encounter Visit Diagnoses Diagnosis Hypertension, unspecified type Prostatism Unspecified hyperplasia of prostate without urinary obstruction and other lower urinary tract symptoms (LUTS) Type 2 diabetes mellitus with hyperglycemia (CMS/HCC) 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
--- OUTSIDE RECORDS SUMMARY | 2024-09-21 07:56 | XMS_ITS | Encounter Summary ---
Author Organization [employer] Address 75 [facility] 7t [place] [address] Care Team Providers Care Bar Turner Name Role Phone Name, Aneesh RIVERS Primary Care Provider [phone] Sandra Rasheed PharmD Unavailable [phone] Reason for Visit * Reason Onset Date Comments FYI 08/23/2023 Encounter Details Date Type Department Care Team ([facility] st Contact Info) Description 08/23/2023 Telephone [facility] MEDICINE [address] [place] [address] Name, MD Aneesh [address] [place] [address] FYI Social History Tobacco Use Types Packs/Day [...] 3:03 PM EDT Tc from Leidy with [facility] stating pt no longer wants to continue care with them. Leidy stated pt no showed 3 appts in a row and when asked about it pt said it was due to to transportation. Pt claims they are irresponsible and that they don't communicate. Pt stated he will continue care with PCP. If any questions please contact Leidy at [phone]. documented in this encounter Plan of Treatment Upcoming Encounters Date Type Department Care Team ([facility] st Contact Info) Description 09/26/2024 9:00 AM EDT Medication Management [facility] MEDICINE [address] [place] [address] Sandra Rasheed, PharmD 230 [place] [address] 09/26/2024 10:45 AM EDT Office Visit [facility] MEDICINE [address] [place] [address] Name, MD Aneesh [address] [place] [address] 11/30/2024 10:00 AM EDT Office Visit [facility] OPTOMETRY [address] [place] [address] Nathanael, Jayne, OD 230 [place] [address] documented as of this encounter Visit Diagnoses Not on filedocumented in this encounter Additional Health Concerns Assessment Noted Time PHQ-9 Depression Total Score: 4 08/23/19 24 9:44 AM EDT documented as of this encounter Care Teams Bar Turner Relationship Specialty Start Date End Date Name, MD Aneesh [address] [place] [address] PCP - General Family Medicine 02/14/18 Sandra aRsheed PharmD [address] [place] [address] Pharmacist Internal Medicine 08/24/24 documented as of this encounter
--- OUTSIDE RECORDS SUMMARY | 2024-09-21 07:56 | XMS_ITS | Encounter Summary ---
Author Organization [employer] Address [address] [facility] 7t [place] [address] Care Team Providers Care Yarding Supervisor Name Role Phone Name, Aneesh RIVERS Primary Care Provider [phone] Sandra Rasheed PharmD Unavailable [phone] Reason for Visit * Reason Onset Date Comments Appointment Request 07/17/2024 Encounter Details Date Type Department Care Team ([facility] st Contact Info) Description 07/17/2024 Telephone [facility] MEDICINE 230 [place], [place] [phone] Name, MD Aneesh [address] [place] [address] Appointment Request Social History Tobacco Use Types [...] r/s apt for 07/17/24. Contact pt at [phone] documented in this encounter Plan of Treatment Upcoming Encounters Date Type Department Care Team ([facility] st Contact Info) Description 09/26/2024 9:00 AM EDT Medication Management [facility] MEDICINE [address] [place] [address] Sandra Rasheed, PharmD 230 [place] [address] 09/26/2024 10:45 AM EDT Office Visit [facility] MEDICINE [address] [place] [address] Name, MD Aneesh [address] [place] [address] 11/30/2024 10:00 AM EDT Office Visit [facility] OPTOMETRY [address] [place] [address] Jayne Huffman, OD [address] [place] [address] documented as of this encounter Visit Diagnoses Not on filedocumented in this encounter Additional Health Concerns Assessment Noted Time PHQ-9 Depression Total Score: 4 08/23/19 24 9:44 AM EDT documented as of this encounter Care Teams Yarding Supervisor Relationship Specialty Start Date End Date Name, MD Aneesh [address] [place] [address] PCP - General Family Medicine 02/14/18 Sandra Rasheed PharmD [address] [place] [address] Pharmacist Internal Medicine 08/24/24 documented as of this encounter
--- OUTSIDE RECORDS SUMMARY | 2024-09-21 07:56 | XMS_ITS | Encounter Summary ---
Author Organization [employer] Address [address] [facility] [address] [place] [address] Care Team Providers Care Evp Name Role Phone Name, Aneesh RIVERS Primary Care Provider [phone] Sandra Rasheed PharmD Unavailable [phone] Reason for Visit * Reason Comments Med Refill Encounter Details Date Type Department Care Team ([facility] st Contact Info) Description 01/12/2024 Refill [facility] [address] [place], [place] [id number] Name, MD Aneesh [address] [place] [address] Chronic low back pain, unspecified back pain [...] 9:00 AM EDT Medication Management [facility] [address] [place] [address] Sandra Rasheed, PharmD [address] [place] [address] 09/26/2024 10:45 AM EDT Office Visit [facility] [address] [place] [address] Aneesh Oliveira MD [address] [place] [address] 11/30/2024 10:00 AM EDT Office Visit [facility] [address] [place] [address] Nathanael, Jayne, OD [address] [place] [address] documented as of this encounter Visit Diagnoses Diagnosis Chronic low back pain, unspecified back pain laterality, unspecified whether sciatica present documented in this encounter Additional Health Concerns Assessment Noted Time PHQ-9 Depression Total Score: 4 08/23/19 24 9:44 AM EDT documented as of this encounter Care Teams Evp Relationship Specialty Start Date End Date Aneesh Oliveira MD [address] [place] [id number] PCP - General Family Medicine 02/14/18 Sandra Rasheed, Javi [address] [place] [address] Pharmacist Internal Medicine 08/24/24 documented as of this encounter
--- OUTSIDE RECORDS SUMMARY | 2024-09-21 07:56 | XMS_ITS | Encounter Summary ---
Author Organization [employer] Address [address] [facility] [address] [place] [address] Care Team Providers Care Fire Truck Driver Name Role Phone Name, Aneesh RIVERS Primary Care Provider [phone] Sandra Rasheed PharmD Unavailable [phone] Reason for Visit * Reason Comments Med Refill Encounter Details Date Type Department Care Team ([facility] st Contact Info) Description 08/19/2023 Refill [facility] [address] [place] [address] Name, MD Aneesh [address] [place] [address] Social History Tobacco Use Types Packs/Day Years [...] EDT Medication Management [facility] [address] [place] [phone] Sandra Rasheed PharmD [address] [place] [address] 09/26/2024 10:45 AM EDT Office Visit [facility] [address] [place] [phone] Name, MD Aneesh [address] [place] [address] 11/30/2024 10:00 AM EDT Office Visit [facility] [address] [place] [address] Nathanael, Jayne, OD [address] [place] [address] documented as of this encounter Visit Diagnoses Not on filedocumented in this encounter Care Teams Fire Truck Driver Relationship Specialty Start Date End Date Name, MD Aneesh [address] [place] [phone] PCP - General Family Medicine 02/14/18 Sandra Rasheed, PharmD [address] [place] [phone] Pharmacist Internal Medicine 08/24/24 documented as of this encounter
--- OUTSIDE RECORDS SUMMARY | 2024-09-21 07:56 | XMS_ITS | Encounter Summary ---
Author Organization [employer] Address [address] [facility] [address] [place] [address] Care Team Providers Care Vice President Financial Name Role Phone Name, Aneesh RIVERS Primary Care Provider [phone] Sandra Rasheed PharmD Unavailable [phone] Encounter Details Date Type Department Care Team (Late st Contact Info) Description 09/19/2024 Refill [facility]INE [address] [place] [address] Name, MD Aneesh [address] [place] [address] Hypertension, unspecified type Social History Tobacco Use Types Packs/Day Years [...] Upcoming Encounters Date Type Department Care Team ([facility] st Contact Info) Description 09/26/2024 9:00 AM EDT Medication Management [facility] [address] [place] [address] Sandra Rasheed, PharmD [address] [place] [address] 09/26/2024 10:45 AM EDT Office Visit [facility] [address] [place] [address] Aneesh Oliveira MD [address] [place] [address] 11/30/2024 10:00 AM EDT Office Visit [facility] OPTOMETRY [address] [place] [address] Nathanael, Jayne, OD [address] [place] [address] documented as of this encounter Visit Diagnoses Diagnosis Hypertension, unspecified type documented in this encounter Additional Health Concerns Assessment Noted Time PHQ-9 Depression Total Score: 4 08/23/19 24 9:44 AM EDT documented as of this encounter Care Teams Vice President Financial Relationship Specialty Start Date End Date Aneesh Oliveira MD [address] [place] [phone] PCP - General Family Medicine 02/14/18 Sandra Rasheed, AnkushD [address] [place] [phone] Pharmacist Internal Medicine 08/24/24 documented as of this encounter
--- OUTSIDE RECORDS SUMMARY | 2024-09-21 07:56 | XMS_ITS | Clinical Summary ---
Author Organization [employer] Address [address] [facility] [address] [place] [address] Care Team Providers Care Garage Door Service Technician Name Role Phone Name, Aneesh RIVERS Primary Care Provider [phone] Sandra Rasheed PharmD Unavailable [phone] Allergies Active Allergy Reactions Criticality Noted [...] water, juice, soda, coffee or tea Active triamcinolone (Kenalog) 0.1 % cream APPLY [...] Once per day. 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) INJECT 80 UNITS SUBCUTANEOUSLY AT BEDTIME 12 mL Active insulin pen needle (UltiGuard SafePack Pen [...] EVERY DAY AT BEDTIME 60 capsule 025 Active spironolactone (Aldactone) 25 MG tabletIndication s:Hypertension, unspecified type TAKE 1 TABLET BY MOUTH EVERY MORNING 90 tablet Active Aspirin Low Dose 81 MG EC tablet TAKE 1 TABLET BY MOUTH EVERYDAY AT NOON 90 tablet Active tamsulosin (Flomax) 0.4 MG 24 hr capsuleIndicatio ns:Prostatism TAKE 2 CAPSULES BY MOUTH EVERY DAY AT BEDTIME (1/2 HOUR AFTER SUPPER) 180 capsule Active Insulin Lispro 100 UNIT/ML solution [...] complication, without long-term current use of insulin ([facility]) Take 1 tablet (1,000 mg) by mouth before breakfast and before evening meal. 60 tablet 11 024 2024 Discontinued sodium chloride ([place]) 0.65 % nasal sprayIndications :Postnasal drip Administer 1 spray into each nostril if needed for congestion. 15 mL 2024 Discontinued(M ed list cleanup (will not trigger notification to Pharmacy)) Aspirin Adult Low Strength 81 MG EC tablet TAKE 1 TABLET BY MOUTH EVERYDAY AT NOON 90 tablet 3 2024 Discontinued mometasone (Elocon) 0.1 % ointment Apply topically Once per day. 45 g 2024 Discontinued(M ed list cleanup (will not trigger notification to Pharmacy)) OneTouch UltraSoft 2 Lancets miscIndications: Type 2 diabetes mellitus with other specified complication, without long-term current use of insulin ([facility]) TEST BLOOD SUGAR THREE TIMES DAILY 100 [...] BY MOUTH EVERY MORNING 90 tablet 025 2024 Discontinued(R eorder (will not trigger notification to Pharmacy)) tamsulosin (Flomax) 0.4 MG 24 hr capsuleIndicatio ns:Prostatism TAKE 2 CAPSULES BY MOUTH EVERY DAY AT BEDTIME (1/2 HOUR AFTER SUPPER) 180 capsule 025 2024 Discontinued(R eorder (will not trigger notification to Pharmacy)) Touanna Rodriguez SoloStar 300 UNIT/ML injectionIndicat ions:Type 2 diabetes mellitus with other specified complication, without long-term current use of insulin ([facility]) INJECT 80 UNITS SUBCUTANEOUSLY AT BEDTIME 6 mL 3 025 2024 Discontinued(R eorder (will not trigger notification to Pharmacy)) HumaLOG KWIKPEN 100 UNIT/ML injectionIndicat ions:Type 2 diabetes mellitus with hyperglycemia (CMS/[facility]),detention (current) use of insulin ([facility]) INJECT 40 UNITS SUBCUTANEOUSLY BEFORE BREAKFAST, 35 [...] Encounters Date Type Department Care Team Description 09/20/2024 Refill [facility] [address] [facility] [place] [address] Richard, Sho, 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 Prostatism 09/20/2024 Refill [facility] [address] [facility] [place] [address] Aneesh Oliveira MD Prostatism 09/19/2024 Refill [facility] [address] [facility] [place] [address] NameAneesh MD Hypertension, unspecified type 09/14/2024 Telephone [facility] [address] [facility] [place] [address] NameAneesh MD Results 09/13/2024 Orders Only [facility] [address] [facility] [place] [address] Aneesh Oliveira MD 09/12/2024 Refill [facility] [address] [facility] [place] [address] NameAneesh MD Type 2 diabetes mellitus with other specified complication, without long-term current use of insulin (CMS/[facility]); Chronic low back pain, unspecified back pain laterality, unspecified whether sciatica present 09/05/2024 Refill [facility] [address] [facility] [place] [address] NameAneesh MD 08/31/2024 Telephone [facility] [address] [facility] [place] [address] Denise Aguirre RN 08/31/2024 Telephone [facility] [address] [place] [address] Mohinder Calero [place] fax over to [facility] 08/31/2024 Telephone [facility] [address] [facility] [place] [address] Aneesh Oliveira MD 08/31/2024 Orders Only [facility] [address] [facility] [place] [address] Aneesh Oliveira MD 08/31/2024 Orders Only [facility] [address] [place] [address] NameAneesh MD Acute deep vein thrombosis (DVT) of distal vein of left lower extremity (CMS/HCC) (Primary Dx) 08/24/2024 9:00 AM EDT Telemedicine [facility] [address] [place] [address] Sandra Rasheed PharmD Type 2 diabetes mellitus with hyperglycemia (CMS/HCC) (Primary Dx); 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); Hypertension, unspecified type; Type 2 diabetes mellitus with other specified complication, without long-term current use of insulin (CMS/HCC) 08/22/2024 Telephone [facility] [address] [place] [address] Aneesh Oliveira MD ER Follow-up 08/22/2024 Orders Only [facility] External Provider, [facility] 08/13/2024 Refill [facility] [address] [place] [address] [place], Sho, 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 Chronic low back pain, unspecified back pain laterality, unspecified whether sciatica present 07/17/2024 Telephone [facility] [address] [place] [phone] Aneesh Oliveira MD Appointment Request 07/10/2024 Refill [facility] [address] [place], [place] [phone] Aneesh Oliveira MD Type 2 diabetes mellitus with hyperglycemia (CMS/HCC); detention (current) use of insulin (CMS/HCC) 07/06/2024 Refill [facility] [address] [place] [address] Aneesh Oliveira MD Type 2 diabetes mellitus with other specified complication, without long-term current use of insulin (CMS/HCC) 06/29/2024 Refill [facility] [address] [place] [address] Aneesh Oliveira MD Chronic constipation 06/25/2024 Refill [facility] [address] [place] [address] Aneesh Oliveira MD Hypertension, unspecified type; Prostatism; Type 2 diabetes mellitus with hyperglycemia (CMS/HCC); 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) 06/24/2024 Refill [facility] [address] [place] [address] Aneesh lOiveira MD Chronic low back pain, unspecified back [...] 09/26/2024 9:00 AM EDT Medication Management [facility] [address] [place] [phone] Sandra Rasheed, PharmD [address] [place] [address] 09/26/2024 10:45 AM EDT Office Visit [facility] [address] [place] [phone] Name, MD Aneesh [address] [place] [phone] 11/30/2024 10:00 AM EDT Office Visit [facility] OPTOMETRY [address] [place] [address] Jayne Huffman, OD [address] [place] [address] Health Maintenance Due Date Last Done Comments [...] Comments US VENOUS DUPLEX LE LT Routine 09/14/2024 9:02 AM EDT US VENOUS DUPLEX LE LT Routine 08/30/2024 [...] 1 VIEW Routine 08/22/2024 8:44 AM EDT LIPID PANEL, STANDARD Routine 05/24/2024 8:27 AM [...] Results * US VENOUS DUPLEX LE LT (09/14/2024 9:02 AM EDT) Only the most recent of3 resultswithin the time period is included. Anatomical Region Laterality Modality Abdomen Ultrasound 09/14/2024 9:02 AM EDT Narrative 09/14/2024 9:03 AM EDT ? [facility] ?[address] ? [place] [address] ? Ultrasound Report ? Signed ? Patient: Gautam Rodri,Josue ?MR#: ?? [id number] ? : 1950 ?Acct:[id number] ? Age/Sex: 74 / M ?ADM Date: 04/03/25 ? Loc: HO.HMGCX ? Attending Dr: Aneesh Oliveira MD ? Ordering Physician: Aneesh Oliveira MD ?? Date of Service: 09/13/24 ?? Procedure(s): US venous duplex LE LT ?? Accession Number(s): [id number] ? cc: Aneesh Oliveira MD ? CLINICAL HISTORY: LEFT LEG ?? HX OF DVT ? Venous duplex ultrasound left lower extremity ? Comparison: 08/30/2024 01:21 PM EDT: US ? Findings: ?? The visualized deep veins are fully compressible with normal Doppler color ?? flow and spectral tracings. ?? No popliteal cyst. ? IMPRESSION: ?? 1. Negative for left lower extremity deep vein thrombosis. ? This document has been electronically signed by: Ye Donohue MD on ?? 09/14/2024 09:02:30 ? Dictated By: ?Ye Donohue MD ? Signed By: ?<Electronically signed by Ye Donohue MD in OV> ?09/14/24 0903 ? DD/ 1 ? TD/TT: 09/14/24901 ? Coil Taper: ? Procedure Note Donjethropatriciaarelyter, Image - 09/14/2024 [facility] [place] [address] Ultrasound Report Signed Patient: Josue Dawson#: [id number] : 1950cct:[id number] Age/Sex: 74 / MADM Date: 09/13/24 Loc: .HMGCX Attending Dr: Aneesh Oliveira MD Ordering Physician: Aneesh Oliveira MD Date of Service: 09/13/24 Procedure(s): US venous duplex LE LT Accession Number(s): [id number] cc: Aneesh Oliveira MD CLINICAL HISTORY: LEFT LEG HX OF DVT Venous duplex ultrasound left lower extremity Comparison: 08/30/2024 01:21 PM EDT: US Findings: The visualized deep veins are fully compressible with normal Doppler color flow and spectral tracings. No popliteal cyst. IMPRESSION: 1. Negative for left lower extremity deep vein thrombosis. This document has been electronically signed by: Ye Donohue MD on 09/14/2024 09:02:30 Dictated By: Ye Donohue MD Signed By: <Electronically signed by Ye Donohue MD in OV> 09/14/24902 DD/ 1 TD/TT: 09/14/24901 Coil Taper: us Aneesh Oliveira MD IM US PROCEDURES Final Result * (ABNORMAL) Urinalysis, Complete, with Reflex to Culture (08/22/2024 11:15 AM EDT) Color Urine Yellow [facility] Appearance Urine Clear [facility] PH 6.5 5.0 - 9.0 [facility] Glucose Urine UA >=1000(A) Negative mg/dL [facility] Urine Blood Trace(A) Negative [facility] Specific [place] - Urine 1.020 1.005 - 1.025 [facility] Urine Protein 300 (3+)(A) Neg-Trace mg/dL [facility] Urine Ketones Negative Negative mg/dL [facility] Nitrite Urine Negative Negative [facility] Leukocyte Esterase Urine Negative Negative [facility] RBC Urine 0-2 0 - 2 /HPF [facility] Urine WBC 0-5 0 - 5 /HPF [facility] Urine Squamous Epithelial Cell 0-2 0 - 2 /HPF [facility] Urine Bacteria None Seen None Seen [facility] Hyaline Casts, Urine 0-2 0 - 2 /LPF [facility] 08/22/2024 11:1 5 AM EDT 08/22/2024 11:24 AM EDT Narrative [facility] - 08/22/2024 11:33 AM EDT [id number], Clean Catch us Generic External Data Provider LAB URINE ORDERAB LES Final Result [facility] [address] [place] [phone] * Slide Review (08/22/2024 9:38 AM EDT) Slide Review VERIFIED [facility] 08/22/2024 9:38 AM EDT 08/22/2024 9:41 AM EDT Generic External Data Provider LAB BLOOD ORDERAB LES Final Result Performing Organization Address [facility]/ZIP Co de Phone Number [facility] [address] [place] [phone] * High Sensitivity Troponin I (08/22/2024 9:38 AM EDT) [facility] TROPONIN I HIGH SENSITIVITY 3.2 <3.5 - 35.0 ng/L [facility] Comment:The Oneill high sens itivity Troponin-I results should beused in conjunction with other diagnostic information suchas ECG, clinical observations and information, and patientsymptoms to aid in the diagnosis of OR. 08/22/2024 9:38 AM EDT 08/22/2024 9:41 AM EDT Generic External Data Provider LAB BLOOD ORDERAB LES Final Result Performing Organization Address [facility] Co de Phone Number [facility] [address] [place] [phone] * (ABNORMAL) CBC auto differential (08/22/2024 9:38 AM EDT) [facility] White Blood Count 6.0 4.8 - 10.8 X10*3/uL [facility] Red Blood Count 4.78 4.60 - 5.80 X10*6/uL [facility] Hemoglobin 14.2 14.0 - 18.0 g/dl [facility] Hematocrit 41.6(L) 42.0 - 52.0 % [facility] Mean Corpuscular Volume 87.0 80.0 - 98.0 fL [facility] Mean Corpuscular Hemoglobin 29.7 27.0 - 33.0 pg [facility] Mean Corpuscular HGB Conc 34.1 31.0 - 36.0 g/dl [facility] Red Cell Distribution Width 12.9 11.0 - 16.0 % [facility] Platelet Count 233 160 - 400 X10*3/uL [facility] Mean Platelet Volume 10.1 9.4 - 12.4 fL [facility] Neutrophils Percent Auto 53.6 45 - 73 % [facility] Imm Gran Pct Auto 1.0(H) 0.0 - 0.4 % [facility] Lymphocytes Percent Auto 18.7(L) 20 - 40 % [facility] Monocytes Percent Auto 20.7(H) 2 - 11 % [facility] Eosinophils Percent Auto 5.0(H) 0 - 4 % [facility] Basophils Percent Auto 1.0 0 - 2 % [facility] NRBC Pct Auto 0.0 0.0 - 0.2 /100WBC [facility] Neutrophils Absolute Auto 3.2 2.0 - 8.3 x10*3/uL [facility] Imm Gran Abs Auto 0.06(H) 0.00 - 0.03 X10*3/uL [facility] Lymphocytes Absolute Auto 1.1(L) 1.2 - 4.9 X10*3/uL [facility] Monocytes Absolute Auto 1.2 0.1 - 1.2 X10*3/uL [facility] Eosinophils Absolute Auto 0.3 0.0 - 0.4 X10*3/uL [facility] Basophils Absolute Auto 0.1 0.0 - 0.2 X10*3/uL [facility] NRBC Abs Auto 0.000 0.0 - 0.012 X10*3/uL [facility] 08/22/2024 9:38 AM EDT 08/22/2024 9:41 AM EDT us Generic External Data Provider LAB BLOOD ORDERAB LES Edited Result - Final [facility] [address] [place] [phone] * B Type Natriuretic Peptide (BNP) (08/22/2024 9:38 AM EDT) [facility] B Type Natriuretic Peptide 24 <100 pg/mL [facility] 08/22/2024 9:38 AM EDT 08/22/2024 9:41 AM EDT us Generic External Data Provider LAB BLOOD ORDERAB LES Final Result Performing Organization Address City/[facility]/ZIP Co de Phone Number [facility] [address] [place] [phone] * (ABNORMAL) Hepatic Function Panel (08/22/2024 9:38 AM EDT) [facility] Bilirubin, Total 0.4 0.0 - 1.0 mg/dL [facility] Bilirubin, Direct 0.1 0.0 - 0.5 mg/dL [facility] Aspartate Amino Transferase 33 5 - 37 U/L [facility] Alanine Aminotransferase 48(H) 0 - 40 U/L [facility] Total Protein 7.6 6.5 - 8.0 g/dL [facility] Albumin Level 3.5 3.5 - 5.0 g/dL [facility] Alkaline Phosphatase 70 39 - 117 U/L [facility] 08/22/2024 9:38 AM EDT 08/22/2024 9:41 AM EDT us Generic External Data Provider LAB BLOOD ORDERAB LES Final Result Performing Organization Address [facility]/ZIP Co de Phone Number [facility] [address] [place] [phone] * (ABNORMAL) Basic Metabolic Panel (08/22/2024 9:38 AM EDT) [facility] Sodium 136 135 - 145 mmol/L [facility] Potassium 3.6 3.3 - 5.1 mmol/L [facility] Chloride 101 96 - 108 mmol/L [facility] Carbon Dioxide 28 22 - 29 mmol/L [facility] Anion Gap 11(L) 12 - 20 [facility] Urea Nitrogen (BUN) 21(H) 9 - 16 mg/dL [facility] Creatinine, Serum 1.21 0.5 - 1.4 mg/dL [facility] Creatinine Clr Calc Pharmacy 58.5 [facility] Comment:eGFR (calculated fro m the MDRD study equation) and eCrCl(calculated from the Cockcroft-Gault equation) are based ondifferent parameters and may not yield comparable results.If eCrCl result is absurd, please check patient'sheight/weight. Estimated Glomerular Filt Rate 59 [facility] Comment:Chronic Kidney Disea se: Estimated GFR < 60 mL/min/1.98n7Ogdklm Kidney Disease: Estimated GFR < 15 mL/min/1.73m2 Glucose 343(H) 60 - 115 mg/dL [facility] Calcium 9.5 8.4 - 10.2 mg/dL [facility] 08/22/2024 9:38 AM EDT 08/22/2024 9:41 AM EDT us Generic External Data Provider LAB BLOOD ORDERAB LES Final Result [facility] [address] [place] [phone] * (ABNORMAL) SARS-CoV-2 RNA, Influenza A/B, and RSV RNA, Ql NAAT (08/22/2024 9:35 AM EDT) Influenza A PCR NEGATIVE Negative [facility] Influenza B PCR NEGATIVE Negative [facility] Resp Syncy Virus RNA Qual PCR NEGATIVE Negative [facility] SARS COV2 PCR POSITIVE(A) Negative [facility] Comment:All test results mus t [...] use by authorized laboratories.Testing performed on the [employer] GeneXpert utilizingreal-time RT-PCR.All SARS CoV2 and positive influenza A/B results arereported to [facility]. 08/22/2024 9:35 AM EDT 08/22/2024 9:41 AM EDT us Generic External Data Provider LAB MICROBIOLOGY - GENERAL ORDERABLES Final Result [facility] [address] [place] [phone] * CT Abdomen Pelvis w/o Contrast (08/22/2024 8:58 AM EDT) Anatomical Region Laterality Modality Body, Pelvis, Abdomen Computed T omography 08/22/2024 8:58 AM EDT Narrative 08/22/2024 9:14 AM EDT ? [facility] ?[address] ?[place] [address] ? CT Scan Report ? Signed ? Patient: Josue Dawson ?MR#: ?? [id number] ? : 1950 ?Acct:[id number] ? Age/Sex: 74 / M ?ADM Date: 08/22/24 ? Loc: HO.ED ? Attending Dr: ? Ordering Physician: Alina Odom MD ?? Date of Service: 08/22/24 ?? Procedure(s): CT abdomen pelvis wo IV con ?? Accession Number(s): [id number] ? cc: Alina Odom MD; Name,Aneesh RIVERS ? Report Number: ?? [id number]: Total DLP = ??751.00 mGy-cm ?? EXAMINATION: [...] in OV> ? 08/22/24 0910 ? DD/ 7 ? TD/TT: 08/22/24857 ? Coil Taper: ? Procedure Note Hannah Mathis - 08/22/[address] [place] [address] [address] Scan Report Signed Patient: Josue Dawson#: [id number] : 1950cct:[id number] Age/Sex: 74 / MADM Date: 08/22/24 Loc: HO.ED Attending Dr: Ordering Physician: Alina Odom MD Date of Service: 08/22/24 Procedure(s): CT abdomen pelvis wo IV con Accession Number(s): [id number] cc: Ailna Odom MD; Name,Aneesh RIVERS Report Number: [id number]: Total DLP = 751.00 mGy-cm EXAMINATION: CT [...] <Electronically signed by Cheo Landon MDin OV> 08/22/24909 DD/ 7 TD/TT: 08/22/24857 Coil Taper: [facility] External Provider IMG CT PROCEDURES Final Result * XR Chest 1 View (08/22/2024 8:44 AM EDT) Anatomical Region Laterality Modality Chest Radiographic Trang ging 08/22/2024 8:44 AM EDT Narrative 08/22/2024 9:24 AM EDT ? [facility] ?[address] ?[place], [place] [address] ?XRay Report ? Signed ? Patient: Josue Dawson ?MR#: ?? [id number] ? : 1950 ?Acct:[id number] ? Age/Sex: 74 / M ?ADM Date: 08/22/24 ? Loc: HO.ED ? Attending Dr: ? Ordering Physician: Alina Odom MD ?? Date of Service: 08/22/24 ?? Procedure(s): XR chest 1V ?? Accession Number(s): [id number] ? cc: Alina Odom MD; Name,Aneesh RIVERS [...] DD/ 0844 ? TD/TT: 08/22/24 0901 ? Coil Taper: ? Procedure Note Hannah Mathis - 08/22/[address] [address] XRay Report Signed Patient: Josue DawsonMR#: [id number] : 1950cct:[id number] Age/Sex: 74 / MADM Date: 08/22/24 Loc: HO.ED Attending Dr: Ordering Physician: Alina Odom MD Date of Service: 08/22/24 Procedure(s): XR chest 1V Accession Number(s): [id number] cc: Alina Odom MD; Name,Aneesh RIVERS EXAMINATION: [...] signed by Luiz Manzo MD in OV> 08/22/24 0920 DD/ 0844 TD/TT: 08/22/24 0901 Coil Taper: [facility] External Provider IMG XR PROCEDURES Final Result * (ABNORMAL) Lipid Panel, Standard (05/24/2024 8:27 AM EST) Triglycerides 185(H) <150 mg/dL [facility] Comment:Desirable Triglyceri de: less than 150 mg/dLBorderline High Triglyceride 150-199 mg/dLHigh Triglyceride: 200-499 mg/dLVery High Triglyceride: greater than or equal to 5OO mg/dL Cholesterol 162 <200 mg/dL [facility] Comment:Desirable Cholestero l: less than 200 mg/dLBorderline High Cholesterol: 200-239 mg/dLHigh Cholesterol: greater than 239 mg/dL LDL Cholesterol Calculated 88 <100 mg/dL [facility] Comment:Desirable LDL: less than 100 mg/dLNear Optimal/Above Optimal LDL: 110- 129 mg/dLBorderline High LDL: 130-159 mg/dLHigh LDL: 160-189 mg/dLVery High LDL: greater than or equal to 190 mg/dL HDL Cholesterol 37(L) >40 mg/dL [facility] Comment:Desirable HDL: great er than 40 mg/dL Note: This HDL assay may give artificially low results in patients with liver disease. Blood Venous blood specimen / Unknown 05/24/2024 8:27 AM EST 05/24/2024 8:27 AM EST us Aneesh Oliveira MD LAB BLOOD ORDERABLES Final Resul t [facility] [address] [place] [phone] * (ABNORMAL) POCT HGB A1C (05/18/2024 10:47 AM EST) Hemoglobin A1C 8.9(A) 4.0 - 6.0 % Blood 05/18/2024 10:4 7 AM EST us Aneesh Oliveira MD POINT OF CARE TEST ENTER/EDIT OR DERABLES Final Result * (ABNORMAL) Colonoscopy (02/10/2023) Colonoscopy Abnormal(A ) Normal us [...] a test for HCV RNA (test code 22860) is suggested. ?? For additional information please refer to http://education.Clinical Data/faq/GLP72m0 (This link is being provided for informational/ educational purposes only.) ?? 11/25/2020 10:4 9 AM EDT us Aneesh Oliveira MD HISTORICAL/NON ORDERABLE LABS Fi nal Result [facility] [address] from Last 3 Months or Most Recently Relevant to Health Maintenance Insurance [facility]ANDARD [facility] Care Teams Garage Door Service Technician Relationship Specialty Start Date End Date Name, MD Aneesh [address] [place] [address] PCP - General Family Medicine 02/14/18 Sandra Rasheed PharmD [address] [place] [address] Pharmacist Internal Medicine 08/24/24
--- OUTSIDE RECORDS SUMMARY | 2024-09-21 07:56 | XMS_ITS | Encounter Summary ---
Author Organization [employer] Address 75 [facility] 7t [place] [address] Care Team Providers Care Country Singer Name Role Phone Name, Aneesh RIVERS Primary Care Provider [phone] Sandra Rasheed PharmD Unavailable [phone] Reason for Visit * Reason Comments Med Refill Encounter Details Date Type Department Care Team ([facility] Contact Info) Description 05/02/2024 Refill [facility] MEDICINE [address] [place] [address] Name, MD Aneesh [address] [place] [address] Chronic constipation Social History Tobacco Use Types [...] Description 09/26/2024 9:00 AM EDT Medication Management [facility] MEDICINE [address] [place] [address] Sandra Rasheed, PharmD [address] [place] [address] 09/26/2024 10:45 AM EDT Office Visit [facility] MEDICINE [address] [place] [address] Aneesh Oliveira MD [address] [place] [address] 11/30/2024 10:00 AM EDT Office Visit [facility] OPTOMETRY [address] [place] [address] Nathanael, Jayne, OD [address] [place] [address] documented as of this encounter Visit Diagnoses Diagnosis Chronic constipation Unspecified constipation documented in this encounter Additional Health Concerns Assessment Noted Time PHQ-9 Depression Total Score: 4 08/23/19 24 9:44 AM EDT documented as of this encounter Care Teams Country Singer Relationship Specialty Start Date End Date Aneesh Oliveira MD [address] [place] [address] PCP - General Family Medicine 02/14/18 Sandra Rasheed PharmD [address] [place] [address] Pharmacist Internal Medicine 08/24/24 documented as of this encounter
[2024-09-21 08:50] LABS: Appearance Urine Clear; Color Urine Yellow; Glucose Urine UA >=1000 mg/dL (Negative); Leukocyte Esterase Urine Negative (Negative); Nitrite Urine Negative (Negative); PH 6.5 (5.0-9.0); UMIC TRIGGER UA YES; Urine Blood Negative (Negative); Urine Ketones Negative (Negative); Urine Protein 100 (2+) mg/dL (Neg-Trace)
[2024-09-21 08:59] LABS: Bacteria Urine None Seen (None Seen); Hyaline Casts Urine 0-2 /LPF (0-2); RBC Urine 0-2 /HPF (0-2); Squamous Epithelial Cell Urine 0-2 /HPF (0-2); WBC Urine 0-5 /HPF (0-5)
[2024-09-21 09:39] LABS: Anion Gap 12 (12-20); Blood Urea Nitrogen 26 mg/dL (9-16); Calcium 9.7 mg/dL (8.4-10.2); Carbon Dioxide 26 mmol/L (22-29); Chloride 103 mmol/L (96-108); Estimated Glomerular Filt Rate > 60; Glucose Random 418 mg/dL (60-115); Potassium 4.2 mmol/L (3.3-5.1); Sodium 137 mmol/L (135-145)
[2024-09-21 10:19] LABS: Parathyroid Hormone Intact 83.7 pg/mL (8.7-77.1)
[2024-09-24 21:57] LABS: Prot Elec - Albumin 3.6 g/dL (3.8-4.8); Prot Elec - Alpha1 0.3 g/dL (0.2-0.3); Prot Elec - Alpha2 0.9 g/dL (0.5-0.9); Prot Elec - Beta 1 0.5 g/dL (0.4-0.6); Prot Elec - Beta 2 0.5 g/dL (0.2-0.5); Prot Elec - Gamma 1.3 g/dL (0.8-1.7); Prot Elec - Total Protein 7.1 g/dL (6.1-8.1)
== END 2024-09-21 07:54 | disposition home or self-care (01) ==
LOC: HO.LAB 07:53
PROVIDERS: PCP Internal Medicine Geriatric Medicine; Visit Provider Internal Medicine Hypertension Specialist
DX: N18.9 Chronic kidney disease, unspecified (principal); E83.52 Hypercalcemia
CPT/HCPCS: 36415; 80048; 81001; 83970; 84165

== ENCOUNTER 2024-09-25 09:54 | Outpatient (AMB) | payer OTHER, SELFPAY ==
--- NOTE | 2024-09-25 09:57 | HO.NEPHOV ---
Vital Signs 09/25/24 09:58 Height 5 ft 6 in Weight 215 lb BMI 34.7 BP 140/66 H Blood Pressure Location Rt brachial Position Sitting Pulse 74 Pulse Source Pulse Oximeter Pulse Oximetry (%) 95 Oxygen Delivery Method Room Air Intake Visit Reasons: 08/22/24 ER FU/ Conf Accompanied by: Daughter Allergies lisinopril [LISINOPRIL] Allergy (Severe, Verified 09/25/24 09:59) ANGIOEDEMA prednisone [PREDNISONE] Allergy (Mild, Verified 09/25/24 09:59) ITCHY Medication List - Last Reconciled 09/25/24 by Jd Painter MD amlodipine 10 mg PO QAM aspirin 81 mg PO DAILY blood sugar diagnostic As directed canagliflozin (Invokana) 100 mg PO DAILY cetirizine mg PO chlorthalidone 50 mg PO QAM clopidogrel (Plavix) 75 mg PO DAILY flash glucose scanning reader ([employer] Willy 2 Charlotte) As directed flash glucose sensor (FreeStyle Willy 2 Sensor kit) As directed change every 14 days gabapentin 200 mg PO BEDTIME insulin glargine U-300 conc (Toujeo Max U-300 SoloStar) 80 units (0.2667 mL) subcut BEDTIME insulin lispro (Humalog KwikPen (U-100) Insulin) Inject 30 units before breakfast, 35 units before lunch and 35 units before dinner subcutaneously; insulin syringe-needle U-100 As directed lactulose mL PO lancets (OneTouch UltraSoft 2 Lancet) As directed lancets As directed metformin 1,000 mg PO BID pen needle, diabetic (UltiCare Pen Needle) USE DIRECTED FOUR TIMES DAILY polyethylene glycol 3350 17 grams PO DAILY psyllium husk (Reguloid (psyllium husk)) 1.2 grams (3 x 0.4 gram) PO BID 90 days sennosides (senna) 17.2 mg PO DAILY PRN sennosides (senna) 17.2 mg (2 x 8.6 mg) PO DAILY 90 days spironolactone 25 mg PO QAM tamsulosin 0.8 mg PO BEDTIME verapamil ER 120 mg PO QAM HPI Comments Details: 72-year-old man with a history of longstanding hypertension and diabetes mellitus with CKD. He has had episodes of acute kidney injury an currently renal function is back to baseline. Baseline creatinine is less than 1.0. He has difficult to control blood sugars. Recent A1c was 8.2%. Blood pressure has been well controlled. He has microalbuminuria. He has not any WAI inhibitor due to angioedema requiring ICU admission. He is currently on Invokana History of nontoxic multinodular goiter. Senior Commissary Agent service was used Cellulitis of left leg : s/p antibiotics 03/08/24 Doing better ;Seen by Dr. Smith s/p Successful plasty of left popliteal and peroneal artery on 03/07/24 04/23/24 c/o body pain;On statins 07/16/24 ;On ozempic- lost about 10 lbs Did not take anti hypertensives today 09/25/24 : Overall doing well. No urinary issues REcent CT showed incidental 2 cm cyst right kidney and anterior bladder wall thickening [facility] Medical History NAFLD (nonalcoholic fatty liver disease) Transaminitis Basal cell carcinoma (BCC) Skin lesion of left lower extremity Heart murmur Familial hypocalciuric hypercalcemia Multinodular thyroid Vitamin D deficiency HLD (hyperlipidemia) HTN (hypertension) T2DM (type 2 diabetes mellitus) Surgical History Hx of melanoma excision Hx of esophagogastroduodenoscopy Hx of colonoscopy Hx of appendectomy Hx of cholecystectomy Family History Father CVD (cardiovascular disease) Diabetes Brother CVD (cardiovascular disease) Diabetes FH: heart attack Social History Household Members: Family Housing: House Do you presently have visiting nurse or other home services: Yes (visiting nurse 2x week) Alcohol intake: never Patient Tobacco Use Status: Never used Tobacco service: No Current occupational status: unemployed Physical Exam Vital Signs: Last Vital Signs Pulse 74 09/25/24 09:58 BP 140/66 H 09/25/24 09:58 Pulse Ox 95 09/25/24 09:58 Oxygen Delivery Method Room Air 09/25/24 09:58 BMI result Body Mass Index 34.7 Comfortable Neck supple no JVD. Lungs entry equal no rales. Heart S1-S2 heard no gallop or rub. Abdomen soft nontender. Neuro alert awake oriented. No asterixis. Extremities no edema. Results Reviewed Nephrology Results: Hgb 14.2 g/dl (14.0-18.0) 08/22/24 WBC 6.0 X10*3/uL (4.8-10.8) 08/22/24 Plt Count 233 X10*3/uL (160-400) 08/22/24 Sodium 137 mmol/L (135-145) 09/21/24 Potassium 4.2 mmol/L (3.3-5.1) 09/21/24 Chloride 103 mmol/L (96-108) 09/21/24 Carbon Dioxide 26 mmol/L (22-29) 09/21/24 BUN 26 mg/dL (9-16) H 09/21/24 Creatinine 1.10 mg/dL (0.5-1.4) 09/21/24 Calcium 9.7 mg/dL (8.4-10.2) 09/21/24 PTH Intact 83.7 pg/mL (8.7-77.1) H 09/21/24 Urine Protein 100 (2+) mg/dL (Neg-Trace) H 09/21/24 Assessment & Plan Assessment & Plan (1) CKD (chronic kidney disease): Code(s): N18.9 - Chronic kidney disease, unspecified Category: Medical Plan: Due to underlying diabetic hypertensive kidney disease. No evidence of active glomerulonephritis or obstructive uropathy. Patient's serum creatinine is less than 1.0. Goal is to slow the progression of renal disease. Continue to avoid nephrotoxic agents including NSAIDs. Continue to use SGLT 2 inhibitors for cardiorenal protection Unable to use Wai inhibitors due to history of angioedema Creatinine bumped up to 1.5 Probably form hypoperfusion post operative Creatinine has improved Down to 1.2 (2) HTN (hypertension): Comment: Stable Code(s): I10 - Essential (primary) hypertension Category: Medical Plan: Blood pressure has been acceptable Better than last visit Encouraged to stay complaint Continue current regimen. Low-salt diet (3) T2DM (type 2 diabetes mellitus): Code(s): E11.9 - Type 2 diabetes mellitus without complications Category: Medical Qualifiers: Diabetes mellitus intermission coordinator insulin use: with intermission coordinator use Diabetes mellitus complication status: with hyperglycemia Qualified Code(s): E11.65 - Type 2 diabetes mellitus with hyperglycemia; Z79.4 - detention (current) use of insulin Plan: Blood sugar sub optimal Goal A1c less than 7% Follow with endocrinology Discussed weight As per family, he is not complaint with diet ! (4) Hypercalcemia: Code(s): E83.52 - Hypercalcemia Category: Medical Plan: Ca down to 9.7 No MCGP Plan Renal cyst and anterior bladder wall thickening Check UA and cytology - ordered Follow up PRN Orders: Orders UA and rflx microscopic 4 Months N18.9 - Chronic kidney disease, unspecified Urine Cytology 4 Months N18.9 - Chronic kidney disease, unspecified, R31.9 - Hematuria, unspecified Basic Metabolic Panel 4 Months N18.9 - Chronic kidney disease, unspecified Coding Level of Care Code Est Pt Level 4 (16694) Diagnoses CKD (chronic kidney disease) N18.9 Hypertension, unspecified type I10 Type 2 diabetes mellitus with hyperglycemia, with long-term current use of insulin E11.65; Z79.4 Diabetes mellitus intermission coordinator insulin use: with intermission coordinator use Diabetes mellitus complication status: with hyperglycemia Hypercalcemia E83.52
[2024-09-25 09:58] VITALS: BP 140/66; PULSE 74; O2SAT 95; BMI 34.7
--- OUTSIDE RECORDS SUMMARY | 2024-09-25 11:23 | XMS_ITS | Encounter Summary ---
Author Organization [employer] Address [address] [facility] [address] 7t [place] [address] Care Team Providers Care Networks Software Consultant Name Role Phone Name, Aneesh RIVERS Primary Care Provider [phone] Sandra Rasheed PharmD Unavailable Encounter Details Date Type Department Care Team ([facility] st Contact Info) Description 03/23/2023 Orders Only [facility] MED & PEDS [address] [place], [place] [phone] Amber Brantley LPN Social History Tobacco Use [...] the past 12 months, has t he [employer], gas, oil or water company threatened to [...] [facility] MEDICINE [address] [place] [address] Sandra Rasheed PharmD [address] [place] [address] 09/26/2024 10:45 AM EDT Office Visit [facility] MEDICINE [address] [place] [address] Name, MD Aneesh [address] [place] [address] 11/30/2024 10:00 AM EDT Office Visit [facility] OPTOMETRY [address] [place] [address] Nathanael, Jayne, OD [address] [place] [address] documented as of this encounter Visit Diagnoses Not on filedocumented in this encounter Care Teams Networks Software Consultant Relationship Specialty Start Date End Date Aneesh Oliveira MD [address] [place] [address] PCP - General Family Medicine 02/14/18 Sandra Rasheed PharmD [address] [place] [address] Pharmacist Internal Medicine 08/24/24 documented as of this encounter
--- OUTSIDE RECORDS SUMMARY | 2024-09-25 11:23 | XMS_ITS | Encounter Summary ---
Author Organization [employer] Address 75 [facility] 7t [place] [address] Care Team Providers Care Punch Out Crew Member Name Role Phone Name, Aneesh RIVERS Primary Care Provider [phone] Sandra Rasheed PharmD Unavailable [phone] Reason for Visit * Reason Comments Med Refill Encounter Details Date Type Department Care Team (Late st Contact Info) Description 04/09/2024 Refill [facility] CH[facility] MED & PEDS [address] [place], [place] [phone] Name, MD Aneesh [address] [place] [address] Chronic low back pain, unspecified back pain [...] Description 09/26/2024 9:00 AM EDT Medication Management [facility] MEDICINE [address] [place] [address] Sandra Rasheed, PharmD [address] [place] [address] 09/26/2024 10:45 AM EDT Office Visit [facility] MEDICINE [address] [place] [address] NameAneesh MD [address] [place] [address] 11/30/2024 10:00 AM EDT Office Visit [facility] OPTOMETRY [address] [place] [address] Nathanael, Jayne, OD [address] [place] [address] documented as of this encounter Visit Diagnoses Diagnosis Chronic low back pain, unspecified back pain laterality, unspecified whether sciatica present documented in this encounter Additional Health Concerns Assessment Noted Time PHQ-9 Depression Total Score: 4 08/23/19 24 9:44 AM EDT documented as of this encounter Care Teams Punch Out Crew Member Relationship Specialty Start Date End Date Aneesh Oliveira MD [address] [place] [address] PCP - General Family Medicine 02/14/18 Sandra Rasheed, AnkushD [address] [place] [address] Pharmacist Internal Medicine 08/24/24 documented as of this encounter
--- OUTSIDE RECORDS SUMMARY | 2024-09-25 11:23 | XMS_ITS | Encounter Summary ---
Author Organization [employer] Address 75 [facility] 7t [place] [address] Care Team Providers Care Director Of Software Development Name Role Phone Name, Aneesh RIVERS Primary Care Provider [phone] Sandra Rasheed PharmD Unavailable [phone] Reason for Visit * Reason Comments Med Refill Encounter Details Date Type Department Care Team (Late st Contact Info) Description 05/02/2024 Refill [facility] MEDICINE [address] [place], [place] [phone] Name, MD Aneesh [address] [place] [address] Chronic constipation Social History Tobacco Use Types [...] Description 09/26/2024 9:00 AM EDT Medication Management [facility] MEDICINE [address] [place] [address] Sandra Rasheed, PharmD [address] [place] [address] 09/26/2024 10:45 AM EDT Office Visit [facility] MEDICINE [address] [place] [address] Aneesh Oliveira MD [address] [place] [address] 11/30/2024 10:00 AM EDT Office Visit [facility] OPTOMETRY [address] [place] [address] Nathanael, Jayne, OD [address] [place] [address] documented as of this encounter Visit Diagnoses Diagnosis Chronic constipation Unspecified constipation documented in this encounter Additional Health Concerns Assessment Noted Time PHQ-9 Depression Total Score: 4 08/23/19 24 9:44 AM EDT documented as of this encounter Care Teams Director Of Software Development Relationship Specialty Start Date End Date Aneesh Oliveira MD [address] [place] [address] PCP - General Family Medicine 02/14/18 Sandra Rasheed, Javi [address] [place] [address] Pharmacist Internal Medicine 08/24/24 documented as of this encounter
--- OUTSIDE RECORDS SUMMARY | 2024-09-25 11:23 | XMS_ITS | Encounter Summary ---
Author Organization [employer] Address 75 [facility] 7t [place] [address] Care Team Providers Care Police Captain Precinct Name Role Phone Name, Aneesh RIVERS Primary Care Provider [phone] Sandra Rasheed PharmD Unavailable [phone] Encounter Details Date Type Department Care Team (Late st Contact Info) Description 09/21/2024 Orders Only GENERIC EXTERNAL DATA DEPARTMENT Provider, Generic External Data Social History Tobacco Use Types Packs/Day Years [...] your housing situation today? I have brandy halie 08/23/[address] you li [...] Description 09/26/2024 9:00 AM EDT Medication Management [facility] MEDICINE [address] [place] [address] Sandra Rasheed, PharmD [address] [place] [address] 09/26/2024 10:45 AM EDT Office Visit [facility] MEDICINE [address] [place] [address] Name, MD Aneesh [address] [place] [address] 11/30/2024 10:00 AM EDT Office Visit [facility] OPTOMETRY [address] [place] [address] Nathanael, Jayne, OD [address] [place] [address] Pending Results Name Type Priority Associated Diagnoses Date /Time Protein, Total and Protein??Electrophoresis Lab Routine 025 8:09 AM EDT documented as of this encounter Procedures Procedure Name Priority Date/Time Associated Diagnosis Comments PROTEIN, TOTAL AND PROTEIN ELECTROPHORESIS Routine 09/21/2024 8:09 AM EDT PTH, INTACT WITHOUT CALCIUM Routine 09/21/2024 8:09 AM EDT BASIC METABOLIC PANEL Routine 09/21/2024 8:09 AM EDT URINALYSIS, COMPLETE Routine 09/21/2024 8:04 AM EDT documented in this encounter Results * (ABNORMAL) PTH, Intact Without Calcium (09/21/2024 8:09 AM EDT) Parathyroid Hormone, Intact 83.7(H) 8.7 - 77.1 pg/mL [facility] 09/21/2024 8:09 AM EDT 09/21/2024 8:09 AM EDT Generic External Data Provider LAB BLOOD ORDERAB LES Final Result [facility] [address] [place] [phone] * (ABNORMAL) Basic Metabolic Panel (09/21/2024 8:09 AM EDT) Sodium 137 135 - 145 mmol/L [facility] Potassium 4.2 3.3 - 5.1 mmol/L [facility] Chloride 103 96 - 108 mmol/L [facility] Carbon Dioxide 26 22 - 29 mmol/L [facility] Anion Gap 12 12 - 20 [facility] Urea Nitrogen (BUN) 26(H) 9 - 16 mg/dL [facility] Creatinine, Serum 1.10 0.5 - 1.4 mg/dL [facility] Estimated Glomerular Filt Rate >60 [facility] Comment:Chronic Kidney Disea se: Estimated GFR < 60 mL/min/1.87m3Udbgbf Kidney Disease: Estimated GFR < 15 mL/min/1.73m2 Glucose 418(HH) 60 - 115 mg/dL [facility] Comment:Critical value for G LUR Results called to and read backby: BETTYE Person calling: DANA Date: 09/21/24Time:937 Calcium 9.7 8.4 - 10.2 mg/dL [facility] 09/21/2024 8:09 AM EDT 09/21/2024 8:09 AM EDT Generic External Data Provider LAB BLOOD ORDERAB LES Final Result Performing Organization Address [facility] de Phone Number [facility] [address] [place] [phone] [phone] * (ABNORMAL) Urinalysis Complete (09/21/2024 8:04 AM EDT) Color Urine Yellow [facility] Appearance Urine Clear [facility] PH 6.5 5.0 - 9.0 [facility] Glucose Urine UA >=1000(A) Negative mg/dL [facility] Urine Blood Negative Negative [facility] Specific [place] - Urine 1.020 1.005 - 1.025 [facility] Urine Protein 100 (2+)(A) Neg-Trace mg/dL [facility] Urine Ketones Negative Negative mg/dL [facility] Nitrite Urine Negative Negative [facility] Leukocyte Esterase Urine Negative Negative [facility] RBC Urine 0-2 0 - 2 /HPF [facility] Urine WBC 0-5 0 - 5 /HPF [facility] Urine Squamous Epithelial Cell 0-2 0 - 2 /HPF [facility] Urine Bacteria None Seen None Seen [facility] Hyaline Casts, Urine 0-2 0 - 2 /LPF [facility] 09/21/2024 8:04 AM EDT 09/21/2024 8:26 AM EDT Generic External Data Provider LAB URINE ORDERAB LES Final Result Performing Organization Address [facility] Co de Phone Number [facility] [address] [place] [address] [phone] documented in this encounter Visit Diagnoses Not on filedocumented in this encounter Additional Health Concerns Assessment Noted Time PHQ-9 Depression Total Score: 4 08/23/19 24 9:44 AM EDT documented as of this encounter Care Teams Police Captain Precinct Relationship Specialty Start Date End Date Name, MD Aneesh [address] [place] [phone] PCP - General Family Medicine 02/14/18 Sandra Rasheed, AnkushD [address] [place] [phone] Pharmacist Internal Medicine 08/24/24 documented as of this encounter
--- OUTSIDE RECORDS SUMMARY | 2024-09-25 11:23 | XMS_ITS | Clinical Summary ---
Author Organization [facility] Address [address] [place] [address] [place] [phone] Phone Care Team Providers Care Curriculum Director Name Role Phone Name, Aneesh RIVERS Primary Care Provider [phone] Allergies Active Allergy Reactions Criticality Noted Date [...] Vaccine (Season Ended) 2025 03/14/2018, 05/17/2016, 05/11/2012 Pneumococcal Vaccine: Peds ( 0 to 5 Years) and At-Risk Patients (6 to 49 Years) Discontinued 02/17/2014, 03/15/2008, 04/14/2000 Insurance [facility] Dual [employer] [facility] App Partner Care Teams Curriculum Director Relationship Specialty Start Date End Date Name, MD Aneesh [address] [place] [address] [phone] PCP - General 06/23/20
--- OUTSIDE RECORDS SUMMARY | 2024-09-25 11:23 | XMS_ITS | Encounter Summary ---
Author Organization [employer] Address 75 [facility] 7t [place] [address] Care Team Providers Care Division Director Name Role Phone Name, Aneesh RIVERS Primary Care Provider [phone] Sandra Rasheed PharmD Unavailable [phone] Reason for Visit * Reason Comments Med Refill Encounter Details Date Type Department Care Team (Late st Contact Info) Description 06/25/2024 Refill [facility] MEDICINE [address] [place], [place] [phone] Name, MD Aneesh [address] [place] [address] Hypertension, unspecified type; Prostatism; Type 2 diabetes mellitus with hyperglycemia (CMS/HCC); long term care social worker (current) use of insulin ([facility]/HCC) Social History Tobacco Use Types Packs/Day Years [...] Description 09/26/2024 9:00 AM EDT Medication Management [facility] MEDICINE [address] [place] [address] Sandra Rasheed, PharmD [address] [place] [address] 09/26/2024 10:45 AM EDT Office Visit [facility] MEDICINE [address] [place] [address] Name, MD Aneesh [address] [place] [address] 11/30/2024 10:00 AM EDT Office Visit [facility] OPTOMETRY [address] [place] [address] Jayne Huffman, OD [address] [place] [address] documented as of this encounter Visit Diagnoses Diagnosis Hypertension, unspecified type Prostatism Unspecified hyperplasia of prostate without urinary obstruction and other lower urinary tract symptoms (LUTS) Type 2 diabetes mellitus with hyperglycemia (CMS/HCC) long term care social worker (current) use of insulin (CMS/HCC) documented in this encounter Additional Health Concerns Assessment Noted Time PHQ-9 Depression Total Score: 4 08/23/19 24 9:44 AM EDT documented as of this encounter Care Teams Division Director Relationship Specialty Start Date End Date Name, MD Aneesh [address] [place] [address] PCP - General Family Medicine 02/14/18 Sandra Rasheed PharmD [address] [place] [address] Pharmacist Internal Medicine 08/24/24 documented as of this encounter
--- OUTSIDE RECORDS SUMMARY | 2024-09-25 11:23 | XMS_ITS | Encounter Summary ---
Author Organization [employer] Address 75 [facility] 7t [place] [address] Care Team Providers Care Material Reprocessing Associate Name Role Phone Name, Aneesh RIVERS Primary Care Provider [phone] Snadra Rasheed PharmD Unavailable [phone] Reason for Visit * Reason Comments Med Refill Encounter Details Date Type Department Care Team (Late st Contact Info) Description 09/20/[address] [facility] MEDICINE [address] [place], [place] [phone] Name, MD Aneesh [address] [place] [address] Prostatism Social History Tobacco Use Types Packs/Day [...] 09/26/2024 9:00 AM EDT Medication Management [facility] MEDICINE [address] [place] [address] Sandra Rasheed, PharmD [address] [place] [address] 09/26/2024 10:45 AM EDT Office Visit [facility] MEDICINE [address] [place] [address] Aneesh Oliveira MD [address] [place] [address] 11/30/2024 10:00 AM EDT Office Visit [facility] OPTOMETRY [address] [place] [address] NathanaelJayne agudelo, OD [address] [place] [address] documented as of this encounter Visit Diagnoses Diagnosis Prostatism Unspecified hyperplasia of prostate without urinary obstruction and other lower urinary tract symptoms (LUTS) documented in this encounter Additional Health Concerns Assessment Noted Time PHQ-9 Depression Total Score: 4 08/23/19 24 9:44 AM EDT documented as of this encounter Care Teams Material Reprocessing Associate Relationship Specialty Start Date End Date Aneesh Oliveira MD [address] [place] [address] PCP - General Family Medicine 02/14/18 Sandra Rasheed PharmD [address] [place] [address] Pharmacist Internal Medicine 08/24/24 documented as of this encounter
--- OUTSIDE RECORDS SUMMARY | 2024-09-25 11:23 | XMS_ITS | Clinical Summary ---
Author Organization [employer] Address [address] [facility] [address] [place] [address] Care Team Providers Care Automotive Sales Specialist Name Role Phone Name, Aneesh RIVERS Primary Care Provider [phone] Sandra Rasheed PharmD Unavailable [phone] Allergies Active Allergy Reactions Criticality Noted [...] per day. 30 tablet 11 2024 Active verapamil SR (Calan SR) 120 [...] injectionIndicat ions:Type 2 diabetes mellitus with hyperglycemia (CMS/HCC),custodial (current) use of insulin (CMS/[facility]) Inject 35 units subQ three times daily with meals 30 mL Active Semaglutide,0.25 or 0.5MG/DOS, (Ozempic, 0.25 or 0.5 MG/DOSE,) 2 MG/3ML solution pen-injectorIndi cations:Type 2 diabetes mellitus with hyperglycemia (CMS/HCC) Inject 0.5 mg under the skin 1 (one) time per week. 3 mL Active insulin glargine (Toujeo Max SoloStar) 300 UNIT/ML injectionIndicat ions:Type 2 diabetes mellitus with hyperglycemia (CMS/HCC),custodial (current) use of insulin (CMS/HCC) INJECT 80 [...] TABLET BY MOUTH EVERY MORNING 30 tablet 025 Active metFORMIN (Glucophage) 1000 MG tabletIndication s:Type 2 diabetes mellitus with other specified complication, without long-term current use of insulin ([facility]) TAKE 1 TABLET BY MOUTH TWICE DAILY AT NOON AND IN THE EVENING BEFORE MEALS 60 tablet 025 Active gabapentin (Neurontin) 100 MG capsuleIndicatio ns:Chronic low back pain, unspecified back pain laterality, unspecified whether sciatica present TAKE 2 CAPSULES BY MOUTH EVERY DAY AT BEDTIME 60 capsule 025 Active spironolactone (Aldactone) 25 MG tabletIndication s:Hypertension, unspecified type TAKE 1 TABLET BY MOUTH EVERY MORNING 90 tablet 025 Active Aspirin Low Dose 81 MG EC tablet TAKE 1 TABLET BY MOUTH EVERYDAY AT NOON 90 tablet 025 Active tamsulosin (Flomax) 0.4 MG 24 hr capsuleIndicatio ns:Prostatism TAKE 2 CAPSULES BY MOUTH EVERY DAY AT BEDTIME (1/2 HOUR AFTER SUPPER) 180 capsule 025 Active amLODIPine (Norvasc) 10 MG tablet Take 1 tablet (10 mg) by mouth in the morning. 30 tablet 024 2024 Discontinued metFORMIN (Glucophage) 1000 MG tabletIndication s:Type 2 diabetes mellitus with other specified complication, without long-term current use of insulin ([facility]) Take 1 tablet (1,000 mg) by mouth before breakfast and before evening meal. 60 tablet 024 2024 Discontinued Aspirin Adult Low Strength 81 MG EC tablet TAKE 1 TABLET BY MOUTH EVERYDAY AT NOON 90 tablet 024 2024 Discontinued spironolactone (Aldactone) 25 MG tabletIndication s:Hypertension, unspecified [...] Encounters Date Type Department Care Team Description 09/21/2024 Telephone [facility] [address] [place] [address] Name, MD Aneesh critical results (Call received from lab with critical result) 09/21/2024 Orders Only GENERIC EXTERNAL DATA DEPARTMENT Provider, Generic External Data 09/20/2024 Refill [facility] [address] [place] [address] [place], [place], [facility] Prostatism 09/20/2024 Refill [facility] [address] [facility] [place] [address] Aneesh Oliveira MD Prostatism 09/19/2024 Refill [facility] [address] [facility] [place] [address] Aneesh Oliveira MD Hypertension, unspecified type 09/14/2024 Telephone [facility] [address] [facility] [place] [address] NameAneesh MD Results 09/13/2024 Orders Only [facility] [address] [facility] [place] [address] NameAneesh MD 09/12/2024 Refill [facility] [address] [facility] [place] [address] NameAneesh MD Type 2 diabetes mellitus with other specified complication, without long-term current use of insulin (CMS/HCC); Chronic low back pain, unspecified back pain laterality, unspecified whether sciatica present 09/05/2024 Refill [facility] [address] [facility] [place] [address] NameAneesh MD 08/31/2024 Telephone [facility] [address] [facility] [place] [address] Denise Aguirre, SAMIR 08/31/2024 Telephone [facility] [address] [facility] [place] [address] Mohinder Calero [place] fax [facility] [place] [facility] 08/31/2024 Telephone [facility] [address] [facility] [place] [address] Aneesh Oliveira MD 08/31/2024 Orders Only [facility] [address] [facility] [place] [address] NameAneesh MD 08/31/2024 Orders Only [facility] [address] [facility] [place] [address] NameAneesh MD Acute deep vein thrombosis (DVT) of distal vein of left lower extremity (CMS/HCC) (Primary Dx) 08/24/2024 9:00 AM EDT Telemedicine [facility] [address] [facility] [place] [address] Sandra Rasheed PharmD Type 2 diabetes mellitus with hyperglycemia ([facility]) (Primary Dx); custodial (current) use of insulin (CMS/HCC); Hypertension, unspecified type; Type 2 diabetes mellitus with other specified complication, without long-term current use of insulin ([facility]/HCC) 08/22/2024 Telephone [facility] [address] [place] [address] Aneesh Oliveira MD ER Follow-up 08/22/2024 Orders Only [facility] External Provider, [facility] 08/13/2024 Refill [facility] [address] [place], [place] [phone] [place], [place], [employer] ATTENDANT Chronic low back pain, unspecified back pain laterality, unspecified whether sciatica present 07/17/2024 Telephone [facility] [address] [place] [address] Aneesh Oliveira MD Appointment Request 07/10/2024 Refill [facility] [address] [place] [address] Aneesh Oliveira MD Type 2 diabetes mellitus with hyperglycemia ([facility]); exterminator (current) use of insulin ([facility]) 07/06/2024 Refill [facility] [address] [place] [address] Aneesh Oliveira MD Type 2 diabetes mellitus with other specified complication, without long-term current use of insulin ([facility]) 06/29/2024 Refill [facility] [address] [place] [address] Aneesh Oliveira MD Chronic constipation from Last 3 Months Immunizations Name Administration [...] Description 09/26/2024 9:00 AM EDT Medication Management [facility] [address] [place] [address] Sandra Rasheed, PharmD [address] [place] [address] 09/26/2024 10:45 AM EDT Office Visit [facility] [address] [place] [address] Name, MD Aneesh [address] [place] [address] 11/30/2024 10:00 AM EDT Office Visit [facility] [address] [place] [address] Nathanael, Jayne, OD [address] [place] [address] Health Maintenance Due Date Last Done Comments [...] URINALYSIS, COMPLETE Routine 09/21/2024 8:04 AM EDT US VENOUS DUPLEX LE LT Routine 5 9:02 AM EDT US VENOUS DUPLEX LE LT Routine 5 1:23 PM EDT URINALYSIS, COMPLETE, WITH REFLEX TO CULTURE Routine 08/22/2024 11:15 AM EDT HIGH SENSITIVITY TROPONIN I Routine 08/22/2024 9:38 AM EDT B TYPE NATRIURETIC PEPTIDE (BNP) Routine 08/22/2024 9:38 AM EDT SLIDE REVIEW Routine 08/22/2024 9:38 AM EDT BASIC METABOLIC PANEL Routine 08/22/2024 9:38 AM EDT HEPATIC FUNCTION PANEL Routine 9:38 AM EDT CBC WITH AUTO DIFFERENTIAL Routine 08/22/2024 9:38 AM EDT SARS COV2/INFLUENZA A/B AND RSV RNA QL NAAT Routine 08/22/2024 9:35 AM EDT US VENOUS DUPLEX LE LT Routine 9:[address] ABDOMEN PELVIS WO [...] Recently Relevant to Health Maintenance Results * (ABNORMAL) PTH, Intact Without Calcium (09/21/2024 8:09 AM EDT) Parathyroid Hormone, Intact 83.7(H) 8.7 - 77.1 pg/mL [facility] 09/21/2024 8:09 AM EDT 09/21/2024 8:09 AM EDT us Generic External Data Provider LAB BLOOD ORDERAB LES Final Result [facility] [address] [place] [phone] * (ABNORMAL) Basic Metabolic Panel (09/21/2024 8:09 AM EDT) Only the most recent of2 resultswithin the time period is included. Sodium 137 135 - 145 mmol/L [facility] Potassium 4.2 3.3 - 5.1 mmol/L [facility] Chloride 103 96 - 108 mmol/L [facility] Carbon Dioxide 26 22 - 29 mmol/L [facility] Anion Gap 12 12 - 20 [facility] Urea Nitrogen (BUN) 26(H) 9 - 16 mg/dL [facility] Creatinine, Serum 1.10 0.5 - 1.4 mg/dL [facility] Estimated Glomerular Filt Rate >60 [facility] Comment:Chronic Kidney Disea se: Estimated GFR < 60 mL/min/[id number] Kidney Disease: Estimated GFR < 15 mL/min/1.73m2 Glucose 418(HH) 60 - 115 mg/dL [facility] Comment:Critical value for G LUR Results called to and read backby: BETTYE Person calling: FORTINOOSSF Date: 09/21/24Time:937 Calcium 9.7 8.4 - 10.2 mg/dL [facility] 09/21/2024 8:09 AM EDT 09/21/2024 8:09 AM EDT us Generic External Data Provider LAB BLOOD ORDERAB LES Final Result [facility] [address] [place] [phone] * (ABNORMAL) Urinalysis Complete (09/21/2024 8:04 AM EDT) Color Urine Yellow [facility] Appearance Urine Clear [facility] PH 6.5 5.0 - 9.0 [facility] Glucose Urine UA >=1000(A) Negative mg/dL [facility] Urine Blood Negative Negative [facility] Specific [place] - Urine 1.020 1.005 - 1.025 [facility] Urine Protein 100 (2+)(A) Neg-Trace mg/dL [facility] Urine Ketones Negative Negative mg/dL [facility] Nitrite Urine Negative Negative [facility] Leukocyte Esterase Urine Negative Negative [facility] RBC Urine 0-2 0 - 2 /HPF [facility] Urine WBC 0-5 0 - 5 /HPF [facility] Urine Squamous Epithelial Cell 0-2 0 - 2 /HPF [facility] Urine Bacteria None Seen None Seen [facility] Hyaline Casts, Urine 0-2 0 - 2 /LPF [facility] 09/21/2024 8:04 AM EDT 09/21/2024 8:26 AM EDT us Generic External Data Provider LAB URINE ORDERAB LES Final Result [facility] [address] [place] [phone] * US VENOUS DUPLEX LE LT (09/14/2024 9:02 AM EDT) Only the most recent of3 resultswithin the time period is included. Anatomical Region Laterality Modality Abdomen Ultrasound 09/14/2024 9:02 AM EDT Narrative 09/14/2024 9:03 AM EDT ? [facility] ?[address] ? [place] [address] ? Ultrasound Report ? Signed ? Patient: Dain Mace,Josue ?MR#: ?? [id number] ? : 1950 ?Acct:[id number] ? Age/Sex: 74 / M ?ADM Date: 09/13/24 ? Loc: HO.HMGCX ? Attending : Aneesh Oliveira MD ? Ordering Physician: Aneesh Oliveira MD ?? Date of Service: 09/13/24 ?? Procedure(s): US venous duplex LE LT ?? Accession Number(s): [id number] ? cc: Name,Aneesh RIVERS ? CLINICAL HISTORY: LEFT LEG ?? HX [...] MD in OV> ?09/14/24 0903 ? DD/ 0902 ? TD/TT: 09/14/24 0902 ? Concrete Hopper Operator: ? Procedure Note Donotpatriciainterpreter, Image - 09/14/2024 [facility] [address] [place] [address] [place] [address] Ultrasound Report Signed Patient: Josue Dawson#: [id number] : 1950cct:[id number] Age/Sex: 74 / MADM Date: 09/13/24 Loc: [facility] Attending Dr: Aneesh Oliveira MD Ordering Physician: Aneesh Oliveira MD Date of Service: 09/13/24 Procedure(s): US venous duplex LE LT Accession Number(s): [id number] cc: Aneesh Oliveira MD CLINICAL HISTORY: LEFT [...] in OV> 09/14/24902 DD/ 1 TD/TT: 09/14/24901 Concrete Hopper Operator: Aneesh Oliveira MD IM US PROCEDURES Final Result * (ABNORMAL) Urinalysis, Complete, with Reflex to Culture (08/22/2024 11:15 AM EDT) Color Urine Yellow [facility] Appearance Urine Clear [facility] PH 6.5 5.0 - 9.0 [facility] Glucose Urine UA >=1000(A) Negative mg/dL [facility] Urine Blood Trace(A) Negative [facility] Specific [place] - Urine 1.020 1.005 - 1.025 [facility] Urine Protein 300 (3+)(A) Neg-Trace mg/dL [facility] Urine Ketones Negative Negative mg/dL [facility] Nitrite Urine Negative Negative [facility] Leukocyte Esterase Urine Negative Negative [facility] RBC Urine 0-2 0 - 2 /HPF [facility] Urine WBC 0-5 0 - 5 /HPF [facility] Urine Squamous Epithelial Cell 0-2 0 - 2 /HPF [facility] Urine Bacteria None Seen None Seen [facility] Hyaline Casts, Urine 0-2 0 - 2 /LPF [facility] 08/22/2024 11:1 5 AM EDT 08/22/2024 11:24 AM EDT Narrative [facility] - 08/22/2024 11:33 AM EDT [id number], Clean Catch us Generic External Data Provider LAB URINE ORDERAB LES Final Result Performing Organization Address City/[facility] [address]/ZIP Co de Phone Number [facility] [address] [place] [phone] * Slide Review (08/22/2024 9:38 AM EDT) Slide Review VERIFIED [facility] 08/22/2024 9:38 AM EDT 08/22/2024 9:41 AM EDT us Generic External Data Provider LAB BLOOD ORDERAB LES Final Result Performing Organization Address [facility] [address]/ZIP Co de Phone Number [facility] [address] [place] [phone] * High Sensitivity Troponin I (08/22/2024 9:38 AM EDT) TROPONIN I HIGH SENSITIVITY 3.2 <3.5 - 35.0 ng/L [facility] Comment:The One[employer] high sens itivity Troponin-I results should beused in conjunction with other diagnostic information suchas ECG, clinical observations and information, and patientsymptoms to aid in the diagnosis of NM. 08/22/2024 9:38 AM EDT 08/22/2024 9:41 AM EDT us Generic External Data Provider LAB BLOOD ORDERAB LES Final Result [facility] [address] [place] [phone] * (ABNORMAL) CBC auto differential (08/22/2024 9:38 AM EDT) White Blood Count 6.0 4.8 - 10.8 X10*3/uL [facility] Red Blood Count 4.78 4.60 - 5.80 X10*6/uL [facility] Hemoglobin 14.2 14.0 - 18.0 g/dl [facility] Hematocrit 41.6(L) 42.0 - 52.0 % [facility] Mean Corpuscular Volume 87.0 80.0 - 98.0 fL [facility] Mean Corpuscular Hemoglobin 29.7 27.0 - 33.0 pg [facility] Mean Corpuscular HGB Conc 34.1 31.0 - 36.0 g/dl [facility] Red Cell Distribution Width 12.9 11.0 - 16.0 % [facility] Platelet Count 233 160 - 400 X10*3/uL [facility] Mean Platelet Volume 10.1 9.4 - 12.4 fL [facility] Neutrophils Percent Auto 53.6 45 - 73 % [facility] Imm Gran Pct Auto 1.0(H) 0.0 - 0.4 % [facility] Lymphocytes Percent Auto 18.7(L) 20 - 40 % [facility] Monocytes Percent Auto 20.7(H) 2 - 11 % [facility] Eosinophils Percent Auto 5.0(H) 0 - 4 % [facility] Basophils Percent Auto 1.0 0 - 2 % [facility] NRBC Pct Auto 0.0 0.0 - 0.2 /100WBC [facility] Neutrophils Absolute Auto 3.2 2.0 - 8.3 x10*3/uL [facility] Imm Gran Abs Auto 0.06(H) 0.00 - 0.03 X10*3/uL [facility] Lymphocytes Absolute Auto 1.1(L) 1.2 - 4.9 X10*3/uL [facility] Monocytes Absolute Auto 1.2 0.1 - 1.2 X10*3/uL [facility] Eosinophils Absolute Auto 0.3 0.0 - 0.4 X10*3/uL [facility] Basophils Absolute Auto 0.1 0.0 - 0.2 X10*3/uL [facility] NRBC Abs Auto 0.000 0.0 - 0.012 X10*3/uL [facility] 08/22/2024 9:38 AM EDT 08/22/2024 9:41 AM EDT us Generic External Data Provider LAB BLOOD ORDERAB LES Edited Result - Final Performing Organization Address [facility] [address]/ZIP Co de Phone Number [facility] [address] [place] [phone] * B Type Natriuretic Peptide (BNP) (08/22/2024 9:38 AM EDT) B Type Natriuretic Peptide 24 <100 pg/mL [facility] 08/22/2024 9:38 AM EDT 08/22/2024 9:41 AM EDT us Generic External Data Provider LAB BLOOD ORDERAB LES Final Result Performing Organization Address [facility] [address]/[facility] Co de Phone Number [facility] [address] [place] [phone] * (ABNORMAL) Hepatic Function Panel (08/22/2024 9:38 AM EDT) Bilirubin, Total 0.4 0.0 - 1.0 mg/dL [facility] Bilirubin, Direct 0.1 0.0 - 0.5 mg/dL [facility] Aspartate Amino Transferase 33 5 - 37 U/L [facility] Alanine Aminotransferase 48(H) 0 - 40 U/L [facility] Total Protein 7.6 6.5 - 8.0 g/dL [facility] Albumin Level 3.5 3.5 - 5.0 g/dL [facility] Alkaline Phosphatase 70 39 - 117 U/L [facility] 08/22/2024 9:38 AM EDT 08/22/2024 9:41 AM EDT us Generic External Data Provider LAB BLOOD ORDERAB LES Final Result [facility] [address] [place] [phone] * (ABNORMAL) SARS-CoV-2 RNA, Influenza A/B, and RSV RNA, Ql NAAT (08/22/2024 9:35 AM EDT) Pathologist [facility] Influenza A PCR NEGATIVE Negative [facility] Influenza B PCR NEGATIVE Negative [facility] Resp Syncy Virus RNA Qual PCR NEGATIVE Negative [facility] SARS COV2 PCR POSITIVE(A) Negative [facility] Comment:All test results mus t [...] use by authorized laboratories.Testing performed on the [employer] GeneXpert utilizingreal-time RT-PCR.All SARS CoV2 and positive influenza A/B results arereported to [facility]. 08/22/2024 9:35 AM EDT 08/22/2024 9:41 AM EDT us Generic External Data Provider LAB MICROBIOLOGY - GENERAL ORDERABLES Final Result [facility] [address] [place] [phone] * CT Abdomen Pelvis w/o Contrast (08/22/2024 8:58 AM EDT) Anatomical Region Laterality Modality Body, Pelvis, Abdomen Computed T omography 08/22/2024 8:58 AM EDT Narrative 08/22/2024 9:14 AM EDT ? [facility] ?[address] ?[place] [address] ? CT Scan Report ? Signed ? Patient: Josue Dawson ?MR#: ?? [id number] ? : 1950 ?Acct:[id number] ? Age/Sex: 74 / M ?ADM Date: 08/22/24 ? Loc: HO.ED ? Attending Dr: ? Ordering Physician: Alina Odom MD ?? Date of Service: 08/22/24 ?? Procedure(s): CT abdomen pelvis wo IV con ?? Accession Number(s): [id number] ? cc: Alina Odom MD; Aneesh Oliveira MD ? Report Number: ?? [id number]: Total DLP = ??751.00 mGy-cm ?? EXAMINATION: [...] in OV> ? 08/22/24 0910 ? DD/ ? TD/TT: 08/22/2458 ? Concrete Hopper Operator: ? Procedure Note [place], Image - 08/22/[address] [place] [address] [address] Scan Report Signed Patient: Josue DawsonMR#: [id number] : 1950cct:[id number] Age/Sex: 74 / MADM Date: 08/22/24 Loc: HO.ED Attending Dr: Ordering Physician: Alina Odom MD Date of Service: 08/22/24 Procedure(s): CT abdomen pelvis wo IV con Accession Number(s): [id number] cc: Alina Odom MD; Name,Aneesh RIVERS Report Number: [id number]: Total DLP = 751.00 mGy-cm EXAMINATION: CT [...] OV> 08/22/24 0910 DD/ 7 TD/TT: 08/22/24857 Concrete Hopper Operator: [facility] External Provider IMG CT PROCEDURES Final Result * XR Chest 1 View (08/22/2024 8:44 AM EDT) Anatomical Region Laterality Modality Chest Radiographic Trang ging 08/22/2024 8:44 AM EDT Narrative 08/22/2024 9:24 AM EDT ? [facility] ?[address] ?[place] [address] ?XRay Report ? Signed ? Patient: Josue Dawson ?MR#: ?? [id number] ? : 1950 ?Acct:[id number] ? Age/Sex: 74 / M ?ADM Date: 08/22/24 ? Loc: HO.ED ? Attending Dr: ? Ordering Physician: Alina Odom MD ?? Date of Service: 08/22/24 ?? Procedure(s): XR chest 1V ?? Accession Number(s): [id number] ? cc: Alina Odom MD; Roxanne,Aneesh RIVERS ? EXAMINATION: ?? XR CHEST ? [...] DD/ 0844 ? TD/TT: 08/22/24 0901 ? Concrete Hopper Operator: ? Procedure Note Hannah Mathis - 08/22/[address] [address] XRay Report Signed Patient: Gautam Josue Mace#: [id number] : 1Acct:[id number] Age/Sex: 74 / MADM Date: 08/22/24 Loc: HO.ED Attending Dr: Ordering Physician: Ailna Odom MD Date of Service: 08/22/24 Procedure(s): XR chest 1V Accession Number(s): [id number] cc: Alina Odom MD; Name,Aneesh RIVERS EXAMINATION: [...] 08/22/24 0920 DD/ 0844 TD/TT: 08/22/24 0901 Concrete Hopper Operator: [facility] External Provider IMG XR PROCEDURES Final Result * (ABNORMAL) Lipid Panel, Standard (05/24/2024 8:27 AM EST) Triglycerides 185(H) <150 mg/dL [facility] Comment:Desirable Triglyceri de: less than 150 mg/dLBorderline High Triglyceride 150-199 mg/dLHigh Triglyceride: 200-499 mg/dLVery High Triglyceride: greater than or equal to 5OO mg/dL Cholesterol 162 <200 mg/dL [facility] Comment:Desirable Cholestero l: less than 200 mg/dLBorderline High Cholesterol: 200-239 mg/dLHigh Cholesterol: greater than 239 mg/dL LDL Cholesterol Calculated 88 <100 mg/dL [facility] Comment:Desirable LDL: less than 100 mg/dLNear Optimal/Above Optimal LDL: 110- 129 mg/dLBorderline High LDL: 130-159 mg/dLHigh LDL: 160-189 mg/dLVery High LDL: greater than or equal to 190 mg/dL HDL Cholesterol 37(L) >40 mg/dL [facility] Comment:Desirable HDL: great er than 40 mg/dL Note: This HDL assay may give artificially low results in patients with liver disease. Blood Venous blood specimen / Unknown 05/24/2024 8:27 AM EST 05/24/2024 8:27 AM EST Result Luma Oliveira MD LAB BLOOD ORDERABLES Final Resul t [facility] [address] [place] [phone] * (ABNORMAL) POCT HGB A1C (05/18/2024 10:47 AM EST) Hemoglobin A1C 8.9(A) 4.0 - 6.0 % Blood 05/18/2024 10:4 7 AM EST Result Luma Oliveira MD POINT OF CARE TEST ENTER/EDIT OR DERABLES Final Result * (ABNORMAL) Colonoscopy (02/10/2023) Colonoscopy Abnormal(A ) Normal Result Luma Oliveira MD HEALTH MAINTENANCE Final Result * HEPATITIS C AB W/REFL TO HCV RNA, QN, PCR (11/25/2020 10:49 AM EDT) HEPATITIS C ANTIBODY NON-REACT TOM NON-REACT TOM [facility] INDEX 0.00 <1.00 [facility] Comment: ?? HCV antibody was non-reactive. There is no laboratory ?? evidence of HCV infection. ?? In most cases, no further action is required. However, if recent HCV exposure is suspected, a test for HCV RNA (test code 06229) is suggested. ?? For additional information please refer to http://education.[employer]/faq/MTX42m1 (This link is being provided for informational/ educational purposes only.) ?? 11/25/2020 10:4 9 AM EDT Result Luma Oliveira MD HISTORICAL/NON ORDERABLE LABS Fi nal Result [facility] [address] from Last 3 Months or Most Recently Relevant to Health Maintenance [place] [facility] - [facility] Care Teams Automotive Sales Specialist Relationship Specialty Start Date End Date Name, MD Aneesh [address] [place] [address] PCP - General Family Medicine 02/14/18 Sandra Rasheed PharmD [address] [place] [address] Pharmacist Internal Medicine 08/24/24
--- OUTSIDE RECORDS SUMMARY | 2024-09-25 11:23 | XMS_ITS | Encounter Summary ---
Author Organization [employer] Address 75 [facility] 7t [place] [address] Care Team Providers Care Substation Electrician Name Role Phone Name, Aneesh RIVERS Primary Care Provider [phone] Sandra Rasheed PharmD Unavailable [phone] Reason for Visit * Reason Comments Med Refill Encounter Details Date Type Department Care Team (Late st Contact Info) Description 01/12/2024 Refill [facility] MED & PEDS [address] [place], [place] [phone] Name, MD Aneesh [address] [place] [address] Chronic low back pain, unspecified back pain [...] 09/26/2024 9:00 AM EDT Medication Management [facility] MEDICINE [address] [place] [address] Sandra Rasheed, PharmD [address] [place] [address] 09/26/2024 10:45 AM EDT Office Visit [facility] MEDICINE [address] [place] [address] NameAneesh MD [address] [place] [address] 11/30/2024 10:00 AM EDT Office Visit [facility] OPTOMETRY [address] [place] [address] Nathanael, Jayne, OD [address] [place] [address] documented as of this encounter Visit Diagnoses Diagnosis Chronic low back pain, unspecified back pain laterality, unspecified whether sciatica present documented in this encounter Additional Health Concerns Assessment Noted Time PHQ-9 Depression Total Score: 4 08/23/19 24 9:44 AM EDT documented as of this encounter Care Teams Substation Electrician Relationship Specialty Start Date End Date Aneesh Oliveira MD [address] [place] [address] PCP - General Family Medicine 02/14/18 Sandra Rasheed, AnkushD [address] [place] [address] Pharmacist Internal Medicine 08/24/24 documented as of this encounter
--- OUTSIDE RECORDS SUMMARY | 2024-09-25 11:23 | XMS_ITS | Encounter Summary ---
Author Organization [employer] Address 75 [facility] 7t [place] [address] Care Team Providers Care Java Web Application Developer Name Role Phone Name, Aneesh RIVERS Primary Care Provider [phone] Sandra Rasheed PharmD Unavailable [phone] Reason for Visit * Reason Comments Med Refill Encounter Details Date Type Department Care Team (Late st Contact Info) Description 08/19/2023 Refill [facility] MEDICINE [address] [place], [place] [phone] Name, MD Aneesh [address] [place] [address] Social History Tobacco Use Types Packs/Day Years [...] Medication Management [facility] MEDICINE [address] [place] [address] Sandra Rasheed PharmD [address] [place] [address] 09/26/2024 10:45 AM EDT Office Visit [facility] MEDICINE [address] [place] [address] Name, MD Aneesh [address] [place] [address] 11/30/2024 10:00 AM EDT Office Visit [facility] OPTOMETRY [address] [place] [address] Nathanael, Jayne, OD [address] [place] [address] documented as of this encounter Visit Diagnoses Not on filedocumented in this encounter Care Teams Java Web Application Developer Relationship Specialty Start Date End Date Name, MD Aneesh [address] [place] [address] PCP - General Family Medicine 02/14/18 Sandra Rasheed PharmD [address] [place] [address] Pharmacist Internal Medicine 08/24/24 documented as of this encounter
--- OUTSIDE RECORDS SUMMARY | 2024-09-25 11:23 | XMS_ITS | Encounter Summary ---
Author Organization [employer] Address 75 [facility] 7t [place] [address] Care Team Providers Care Interior Design Consultant Name Role Phone Name, Aneesh RIVERS Primary Care Provider [phone] Sandra Rasheed PharmD Unavailable [phone] Reason for Visit * Reason Onset Date Comments critical results 09/21/[address] [facility] with critical result Encounter Details Date Type Department Care Team ([facility] st Contact Info) Description 09/21/2024 Telephone [facility] [address] [place] [address] Name, MD Aneesh [address] [place] [address] critical results (Call received from lab with critical result) Social History Tobacco Use Types Packs/Day Years [...] your housing situation today? I have brandy sing 08/23/[address] you li [...] Telephone Encounter - Kelly Mendez RN - 09/21/2024 9:57 AM EDT T/C to pt via [facility] Autocad Operator Milla #[id number]. Pt reports that he feels well and denies symptoms at this time. Advised of critical glucose and PCP recommendation: Call him to see how he is doing, make sure he is using his insulin and he has appt with [facility] next week, remind him to avoid all sweets/sweetened drinks and recommend he drink more water Pt verbalized understanding. Pt reports that he is taking insulin as rx. States that yesterday his blood sugar was 52. Pt states he has an appt with nephrology on 09/25/24 and is scheduled for an ultrasound of his stomach on 10/25/24. Agrees to f/u with [facility] and PCP as scheduled and to call C prn symptoms. * Telephone Encounter - Ewa Turner RN - 09/21/2024 9:38 AM EDT Call received from lab with critical blood sugar result 418 from this am . documented in this encounter Plan of Treatment Upcoming Encounters Date Type Department Care Team (Late st Contact Info) Description 09/26/2024 9:00 AM EDT Medication Management [facility] MEDICINE [address] [place] [address] Sandra Rasheed PharmD [address] [place] [address] 09/26/2024 10:45 AM EDT Office Visit [facility] MEDICINE [address] [place] [address] Name, MD Aneesh [address] [place] [address] 11/30/2024 10:00 AM EDT Office Visit [facility] OPTOMETRY [address] [place] [address] Nathanael, Jayne, OD [address] [place] [address] documented as of this encounter Visit Diagnoses Not on filedocumented in this encounter Additional Health Concerns Assessment Noted Time PHQ-9 Depression Total Score: 4 08/23/19 24 9:44 AM EDT documented as of this encounter Care Teams Interior Design Consultant Relationship Specialty Start Date End Date Aneesh Oliveira MD [address] [place] [address] PCP - General Family Medicine 02/14/18 Sandra Rasheed PharmD [address] [place] [address] Pharmacist Internal Medicine 08/24/24 documented as of this encounter
--- OUTSIDE RECORDS SUMMARY | 2024-09-25 11:23 | XMS_ITS | Encounter Summary ---
Author Organization [employer] Address 75 [facility] 7t [place] [address] Care Team Providers Care Still Cleaner Tube Name Role Phone Name, Aneesh RIVERS Primary Care Provider [phone] Sandra Rasheed PharmD Unavailable [phone] Reason for Visit * Reason Onset Date Comments FYI 08/23/2023 Encounter Details Date Type Department Care Team ([facility] st Contact Info) Description 08/23/2023 Telephone [facility] MEDICINE [address] [place], [place] [phone] Name, MD Aneesh [address] [place] [address] FYI Social History Tobacco Use Types Packs/Day [...] 3:03 PM EDT Tc from Leidy with [facility] stating pt no longer wants to continue care with them. Leidy stated pt no showed 3 appts in a row and when asked about it pt said it was due to to transportation. Pt claims they are irresponsible and that they don't communicate. Pt stated he will continue care with PCP. If any questions please contact Leidy at [phone]. documented in this encounter Plan of Treatment Upcoming Encounters Date Type Department Care Team (Late st Contact Info) Description 09/26/2024 9:00 AM EDT Medication Management [facility] MEDICINE [address] [place] [address] Sandra Rasheed, PharmD [address] [place] [address] 09/26/2024 10:45 AM EDT Office Visit [facility] MEDICINE [address] [place] [address] Name, MD Aneesh [address] [place] [address] 11/30/2024 10:00 AM EDT Office Visit [facility] OPTOMETRY [address] [place] [address] Jayne Huffman, OD 230 [place] [address] documented as of this encounter Visit Diagnoses Not on filedocumented in this encounter Additional Health Concerns Assessment Noted Time PHQ-9 Depression Total Score: 4 08/23/19 24 9:44 AM EDT documented as of this encounter Care Teams Still Cleaner Tube Relationship Specialty Start Date End Date Name, MD Aneesh [address] [place] [address] PCP - General Family Medicine 02/14/18 Sandra Rasheed PharmD [address] [place] [address] Pharmacist Internal Medicine 08/24/24 documented as of this encounter
--- OUTSIDE RECORDS SUMMARY | 2024-09-25 11:23 | XMS_ITS | Encounter Summary ---
Author Organization [employer] Address 75 [facility] 7t [place] [address] Care Team Providers Care Electrician Research Name Role Phone Name, Aneesh RIVERS Primary Care Provider [phone] Sandra Rasheed PharmD Unavailable [phone] Reason for Visit * Reason Onset Date Comments Appointment Request 07/17/2024 Encounter Details Date Type Department Care Team ([facility] st Contact Info) Description 07/17/2024 Telephone [facility] MEDICINE [address] [place], [place] [phone] Name, MD Aneesh [address] [place] [address] Appointment Request Social History Tobacco Use Types [...] r/s apt for 07/17/24. Contact pt at [phone] documented in this encounter Plan of Treatment Upcoming Encounters Date Type Department Care Team (Late st Contact Info) Description 09/26/2024 9:00 AM EDT Medication Management [facility] MEDICINE [address] [place] [address] Sandra Rasheed, PharmD [address] [place] [address] 09/26/2024 10:45 AM EDT Office Visit [facility] MEDICINE [address] [place] [address] Name, MD Aneesh [address] [place] [address] 11/30/2024 10:00 AM EDT Office Visit [facility] OPTOMETRY [address] [place] [address] Jayne Huffman, OD [address] [place] [address] documented as of this encounter Visit Diagnoses Not on filedocumented in this encounter Additional Health Concerns Assessment Noted Time PHQ-9 Depression Total Score: 4 08/23/19 24 9:44 AM EDT documented as of this encounter Care Teams Electrician Research Relationship Specialty Start Date End Date Name, MD Aneesh [address] [place] [address] PCP - General Family Medicine 02/14/18 Sandra Rasheed, AnkushD [address] [place] [address] Pharmacist Internal Medicine 08/24/24 documented as of this encounter
--- OUTSIDE RECORDS SUMMARY | 2024-09-25 11:23 | XMS_ITS | Encounter Summary ---
Author Organization [employer] Address 75 [facility] 7t [place] [address] Care Team Providers Care Furniture Decals Inspector Name Role Phone Name, Aneesh RIVERS Primary Care Provider [phone] Sandra Rasheed PharmD Unavailable [phone] Reason for Visit * Reason Comments Med Refill Encounter Details Date Type Department Care Team (Late st Contact Info) Description 08/18/2023 Refill [facility] MEDICINE [address] [place], [place] [phone] Name, MD Aneesh [address] [place] [address] Social History Tobacco Use Types Packs/Day Years [...] [facility] [address] [place] [address] Sandra Rasheed PharmD [address] [place] [address] 09/26/2024 10:45 AM EDT Office Visit [facility] MEDICINE [address] [place] [address] Name, MD Aneesh [address] [place] [address] 11/30/2024 10:00 AM EDT Office Visit [facility] OPTOMETRY [address] [place] [address] Nathaneal, Jayne, OD [address] [place] [address] documented as of this encounter Visit Diagnoses Not on filedocumented in this encounter Care Teams Furniture Decals Inspector Relationship Specialty Start Date End Date Name, MD Aneseh [address] [place] [address] PCP - General Family Medicine 02/14/18 Sandra aRsheed, PharmD [address] [place] [address] Pharmacist Internal Medicine 08/24/24 documented as of this encounter
--- OUTSIDE RECORDS SUMMARY | 2024-09-25 11:23 | XMS_ITS | Data Portability ---
Author Organization [place] [facility], Allergy Address [address] [address] Care Team Providers Care Automated Logistics Specialist Name Role Phone NAME, LAURENT Primary Care Provider [phone] Assessment Encounter Date Assessment Date Assessment LastModified [...] vocal quality. I recommended he see a sheet manufacturing supervisor, voice specalist, to evaluate him and see if he would be a good candidate for a more permanent medialization procedure. Patient is willing and interested to travel to [place] to hear options. - Referral to [facility] Otolaryngology - Dr. Stafford or Dr. Machuca for discussion [email or web address] Not available 05/04/2024 08:27:45 Plan of Treatment Reminders Order Date Submit Date Provider Last Modified By Organization Details Last Modified Time Details Appointments None recorded. Lab None recorded. Referral otolaryngol ogist referral - Attn: Betsy. Dr. Machuca or Dr. Stafford - bilateral vocal cord paralysis. 2023 024 [email or web address] 2 [facility], [address] [place], [address], 4 10:41:11 Procedures None recorded. Surgeries None recorded. Imaging None recorded. Medication Orders None recorded. Patient TargetsNo targets recorded. Patient InstructionsNo instructions recorded. Reason for Referral Insurance And Benefits Clerk Referral fo r Dysphonia Attn: Birgit. Dr. Machuca or Dr. Stafford - bilateral vocal cord paralysis. 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 Paralysis of vocal cords and larynx, unspecifie d; Note: Date Diagnosed: 12/25/2018 2:49 PM (J38.00) Not Available [facility] 4 03:24:49 Dysphonia 76560039 Active 2018 Hoarseness ; Note: Date Diagnosed: 12/25/2018 2:49 PM (R49.0) Not Available [facility] 4 03:24:49 Simple goiter 953154128 Active 2018 Goiter NOS; Note: Date Diagnosed: 12/25/2018 2:49 PM (E04.9) Not Available [facility] 4 03:24:49 Paralysis of larynx 90873375 Active 2023 RYAN MAYA MD [address] [place] [address], [id number] , [facility] 4 08:24:41 Problem Notes None recorded. Procedures Surgical History Date Name Laterality Status Provider Name and Address Organization Details Recorded Time 05/03/20 24 Fiberoptic Laryngoscopy (Comprehensive) completed RYAN MAYA MD [address] [place] [address], [phone], [facility] 05/04/2024 08:24:07 Imaging Results None [...] Updated DateTime 05/03/2024 167.64 cm 34.7 kg/m2 89930.36 g Natalilinda Ramírez [place] [facility] 05/03/2024 13:28:04 Social History None recorded. Functional Status None recorded. Mental Status None recorded. Family History Nothing Reported. Medical History No medical history recorded. Past Encounters Encounter ID Performer Location Encounter Start Date Encounter Closed Date Diagnosis/Indication Diagnosis SNOMED-CT Code Diagnosis ICD10 Code Diagnosis Note [id number] RYAN MAYA MD [facility] [address] [phone] 05/03/2024 13:04:26 05/03/2024 16:54:58 Paralysis of larynx 91549050 J38.02 Dysphonia 91402261 R49.9 Health Concerns Section Related Observation LastModified by Organization Detai ls LastModified Time None Recorded Concern Status LastModified by Organization Details LastModified Time None Recorded Advance Directives Directive None Recorded Payers Encounter Date Sequence Insurance Name Policy Number Policy Hood Covered Member ID Hood Member ID Guarantor Name 05/03/2024 1 [facility] (MEDICARE REPLACEMENT/ ADVANTAGE - HMO) Josue Mace [id number] Josue Mace 05/03/2024 2 [place] [facility] Josue Mace [id number] Josue Mace Notes Date Note Type Note Provider Name and Address Organization Details Recorded Time 05/03/2024 text/html 73yo gentleman rodrigo miguel presents today for evaluation of bilateral vocal cord paralysis and dysphonia. He has had difficulty with his voice for about 5 years. He underwent a traumatic intubation at [facility] in 2018 in the setting of an anaphylactic event. Following, this resulted in dysphonia and dyspnea with exertion. He was seen by otolaryngology in [place] - Dr. John Coppola. At that time, [...] aspirin 81 & clopidogrel. RYAN MAYA MD [address] [place] [address], [phone], [facility] - [facility] 05/04/2024 20:31:01
--- OUTSIDE RECORDS SUMMARY | 2024-09-25 11:23 | XMS_ITS | Encounter Summary ---
Author Organization [employer] Address 75 [facility] 7t [place] [address] Care Team Providers Care Dandy Operator Name Role Phone Name, Aneesh RIVERS Primary Care Provider [phone] Sandra Rasheed PharmD Unavailable [phone] Reason for Visit * Reason Comments Med Refill Encounter Details Date Type Department Care Team (Late st Contact Info) Description 09/20/2024 Refill [facility] CHC MED & PEDS [address] [place], [place] [phone] [facility] [address] [place] [address] Prostatism Social History Tobacco Use Types Packs/Day [...] Upcoming Encounters Date Type Department Care Team ([facility] st Contact Info) Description 09/26/2024 9:00 AM EDT Medication Management [facility] MEDICINE [address] [place] [address] Sandra Rasheed, PharmD [address] [place] [address] 09/26/2024 10:45 AM EDT Office Visit [facility] MEDICINE [address] [place] [address] Aneesh Oliveira MD [address] [place] [address] 11/30/2024 10:00 AM EDT Office Visit [facility] OPTOMETRY [address] [place] [address] Nathanael, Jayne, OD [address] [place] [address] documented as of this encounter Visit Diagnoses Diagnosis Prostatism Unspecified hyperplasia of prostate without urinary obstruction and other lower urinary tract symptoms (LUTS) documented in this encounter Additional Health Concerns Assessment Noted Time PHQ-9 Depression Total Score: 4 08/23/19 24 9:44 AM EDT documented as of this encounter Care Teams Dandy Operator Relationship Specialty Start Date End Date Aneesh Oliveira MD [address] [place] [address] PCP - General Family Medicine 02/14/18 Sandra Rasheed, AnkushD [address] [place] [address] Pharmacist Internal Medicine 08/24/24 documented as of this encounter
== END 2024-09-25 10:15 | disposition home or self-care (01) ==
LOC: HO.HKA 09:54
PROVIDERS: PCP Internal Medicine Geriatric Medicine; Visit Provider Internal Medicine Hypertension Specialist
DX: I12.9 Hypertensive chronic kidney disease with stage 1 through stage 4 chronic kidney disease, or unspecified chronic kidney disease (principal); E11.22 Type 2 diabetes mellitus with diabetic chronic kidney disease; N18.9 Chronic kidney disease, unspecified; Z79.4 Long term (current) use of insulin; E83.52 Hypercalcemia
CPT/HCPCS: 99214

== ENCOUNTER → 2024-09-25 09:54 | Outpatient (BNVA) | payer OTHER, SELFPAY | PROVIDERS: PCP Internal Medicine Geriatric Medicine; Visit Provider Internal Medicine Hypertension Specialist | DX: E11.22 Type 2 diabetes mellitus with diabetic chronic kidney disease (principal); I12.9 Hypertensive chronic kidney disease with stage 1 through stage 4 chronic kidney disease, or unspecified chronic kidney disease; N18.9 Chronic kidney disease, unspecified; E11.65 Type 2 diabetes mellitus with hyperglycemia; E83.52 Hypercalcemia; Z79.4 Long term (current) use of insulin | CPT/HCPCS: 99212 ==

== ENCOUNTER 2024-10-13 06:09 | Emergency (ER) | payer OTHER, SELFPAY ==
[2024-10-13 06:17] VITALS: BP 173/68; PULSE 76; RESP 18; TEMP 36.7; O2SAT 98; BMI 34.7
--- NOTE | 2024-10-13 07:42 | ED_ITS ---
HPI - General Adult General Chief complaint: Back Pain/Injury Stated complaint: back pain, swollen leg Time Seen by Provider: 10/13/24 07:24 Source: patient Mode of arrival: ambulatory Limitations: no limitations History of Present Illness HPI narrative: This is 74 years old man with a history of peripheral vascular disease, diabetes, chronic lower back pain, presented to the emergency department ambulatory complaining of lower back pain also as an area of redness in the left leg. Denies any fever chills vomiting. Onset (ago): day(s) (5) Location: left and lower extremity Radiation: non-radiation Severity: moderate Quality: burning Pain Consistency: constant Relieving factors: none Exacerbating factors: none Associated symptoms: denies other symptoms Related Data Home Medications ?Medication ?Instructions ?Recorded ?Confirmed aspirin 81 mg tablet,delayed 81 mg PO DAILY 05/07/20 09/25/24 release blood sugar diagnostic #10 ea 05/07/20 09/25/24 chlorthalidone 50 mg tablet 50 mg PO QAM 05/07/20 09/25/24 gabapentin 100 mg capsule 200 mg PO BEDTIME 05/07/20 09/25/24 insulin syringe-needle U-100 1 mL #10 ea 05/07/20 09/25/24 29 gauge x 1/2 sennosides 8.6 mg tablet (senna) 17.2 mg PO DAILY PRN constipation 08/12/21 09/25/24 lancets #100 ea 04/06/23 09/25/24 lancets 30 gauge (OneTouch #100 ea 04/06/23 09/25/24 UltraSoft 2 Lancet) spironolactone 25 mg tablet 25 mg PO QAM 04/06/23 09/25/24 tamsulosin 0.4 mg capsule 0.8 mg PO BEDTIME 04/06/23 09/25/24 verapamil 120 mg tablet,extended 120 mg PO QAM 04/06/23 09/25/24 release amlodipine 10 mg tablet 10 mg PO QAM 11/10/23 09/25/24 canagliflozin 100 mg tablet 100 mg PO DAILY 06/11/24 09/25/24 (Invokana) cetirizine 10 mg tablet mg PO 06/11/24 09/25/24 lactulose 10 gram/15 mL oral ml PO 12/30/24 04/15/25 solution polyethylene glycol 3350 17 17 g PO DAILY 06/11/24 09/25/24 gram/dose oral powder Previous Rx's ?Medication ?Instructions ?Recorded flash glucose scanning reader #1 ea 04/14/23 (FreeStyle Willy 2 Dutton) flash glucose sensor (FreeStyle #2 ea 04/14/23 Willy 2 Sensor kit) metformin 1,000 mg tablet 1,000 mg PO BID #60 tabs 04/21/23 insulin glargine U-300 conc 300 80 unit (0.2667 mL) subcut BEDTIME 05/24/23 unit/mL (3 mL) subcutaneous pen #6 mL (Toujeo Max U-300 SoloStar) pen needle, diabetic 32 gauge x #100 ea 07/18/23 (UltiCare Pen Needle) insulin lispro 100 unit/mL See Rx Instructions subcut 07/19/23 subcutaneous pen (Humalog KwikPen .COMPLEX #30 mL (U-100) Insulin) clopidogrel 75 mg tablet (Plavix) 75 mg PO DAILY #90 tabs 03/07/24 sennosides 8.6 mg tablet (senna) 17.2 mg (2 x 8.6 mg) PO DAILY 90 06/11/24 days #180 tabs psyllium husk 0.4 gram capsule 1.2 g (3 x 0.4 gram) PO BID 90 06/14/24 (Reguloid (psyllium husk)) days #540 caps cephalexin 500 mg capsule 500 mg PO Q8H 7 days #21 caps 10/13/24 oxycodone 5 mg tablet 5 mg PO Q6H PRN pain #15 tabs 10/13/24 Allergies Allergy/AdvReac Type Severity Reaction Status Date / Time lisinopril [LISINOPRIL] Allergy Severe ANGIOEDEMA Verified 10/13/24 06:19 prednisone [PREDNISONE] Allergy Mild ITCHY Verified 10/13/24 06:19 Review of Systems 2 Constitutional: Constitutional: Reports no additional constitutional complaints ENT: Reports system reviewed and no additional complaints, except as documented PMFSH Past Medical History Attestation statement: The following information was validated with the patient. Medical History NAFLD (nonalcoholic fatty liver disease) Transaminitis Basal cell carcinoma (BCC) Skin lesion of left lower extremity Heart murmur Familial hypocalciuric hypercalcemia Multinodular thyroid Vitamin D deficiency HLD (hyperlipidemia) HTN (hypertension) T2DM (type 2 diabetes mellitus) Surgical History Hx of melanoma excision Hx of esophagogastroduodenoscopy Hx of colonoscopy Hx of appendectomy Hx of cholecystectomy Family History Family History Father CVD (cardiovascular disease) Diabetes Brother CVD (cardiovascular disease) Diabetes FH: heart attack Social History Social History Household Members: Family Housing: House Do you presently have visiting nurse or other home services: Yes (visiting nurse 2x week) Alcohol intake: never Patient Tobacco Use Status: Never used Tobacco Advance Directives: No Advance Directives Information Provided: Yes Do you have a plan to hurt others: No Plan service: No Current occupational status: unemployed Physical Exam ED Vital Signs: Vital Signs - 24 hr 10/13/24 06:17 10/13/24 08:00 Temperature 98.0 F 97.6 F Pulse Rate 76 73 Respiratory Rate 18 16 Blood Pressure 173/68 H 173/69 H Pulse Oximetry 98 95 Oxygen Delivery Method Room Air Room Air BMI result Body Mass Index 34.7 No acute distress he is comfortable in the stretcher afebrile Const General: cooperative, comfortable, no acute distress, well developed, alert and awake Nutritional Appearance: well nourished Orientation/consciousness: patient oriented x3 Limitations: no limitations [facility] Head: Yes normal to inspection Face and sinus: Yes normal facial exam Neck Neck: Yes normal visual inspection and Yes full ROM Chest Chest palpation & inspection: normal inspection of the chest Resp Effort & Inspection: normal respiratory effort Auscultation: clear to auscultation bilaterally Cardio Jugular venous distension: no JVD Rate: regular rate Rhythm: regular rhythm GI Inspection: Yes normal to inspection Palpation (GI): Soft to palpation, not firm, nontender and no guarding Percussion: Yes normal to percussion Auscultation: normal bowel sounds Skin General skin exam: no rashes or lesions noted and elasticity normal Lesions: no lesions Rashes: no rashes Wounds: no wounds Neuro General: patient oriented x3 Extrem Other: Left lower extremity there is redness in the anterior aspect of the leg he has pulses in the posterior tibialis foot is warm Course Reevaluation(s) Reevaluation #1: Patient remained stable he is afebrile, his white count is normal, C-reactive protein low 0.55, lactic is 1.4. I think he can be discharged home on p.o. antibiotic. I reached out to his vascular surgeon Dr. Smith (followed by him because of peripheral vascular disease) we will discharge home on Keflex and pain medicine for his back. The patient is very comfortable with the plan of care Time: 09:54 Medications Administered Discontinued Medications Generic Name Dose Route Start Last Admin Trade Name Freq PRN Reason Stop Dose Admin Vancomycin HCl 2,000 mg in 500 mls @ 250 mls/hr 10/13/24 08:00 10/13/24 08:11 Vancomycin/Ns IV 10/13/24 09:59 250 mls/hr ONCE ONE Administration Medical Decision Making Medical Decision Making [facility] Narrative: Patient presented to the emergency department complaining of lower back pain and left lower leg redness we will obtain labs administer antibiotic for the cellulitis of the left leg Differential Diagnosis Differential Diagnoses: The differential diagnosis associated with the presentation includes Cellulitis/peripheral vascular disease/lower back pain chronic Admission/Observation Consideration of admission/observation: Escalation of care including admission/observation considered Consult Healthcare Provider Management of the patient was discussed with: Canvas Marker Dr Smith vascular Lab Data [facility] Lab Attestation statement: I reviewed the patient's lab results. 10/13/24 08:09 10/13/24 08:09 Labs: Lab Results 10/13/24 Range/Units 08:09 WBC 8.8 (4.8-10.8) X10*3/uL RBC 5.08 (4.60-5.80) X10*6/uL Hgb 14.9 (14.0-18.0) g/dl Hct 44.3 (42.0-52.0) % MCV 87.2 (80.0-98.0) fL MCH 29.3 (27.0-33.0) pg MCHC 33.6 (31.0-36.0) g/dl RDW 12.6 (11.0-16.0) % Plt Count 278 (160-400) X10*3/uL MPV 10.0 (9.4-12.4) fL Immature Gran % (Auto) 0.7 H (0.0-0.4) % Neut % (Auto) 65.2 (45-73) % Lymph % (Auto) 23.2 (20-40) % [place] % (Auto) 8.3 (2-11) % Eos % (Auto) 1.7 (0-4) % Baso % (Auto) 0.9 (0-2) % Lymph # (Auto) 2.1 (1.2-4.9) X10*3/uL [place] # (Auto) 0.7 (0.1-1.2) X10*3/uL Eos # (Auto) 0.2 (0.0-0.4) X10*3/uL Baso # (Auto) 0.1 (0.0-0.2) X10*3/uL Abs Immat Gran (auto) 0.06 H (0.00-0.03) X10*3/uL Absolute Neuts (auto) 5.8 (2.0-8.3) x10*3/uL Absolute Nucleated RBC 0.000 (0.0-0.012) X10*3/uL Nucleated RBC % (auto) 0.0 (0.0-0.2) /100WBC Sodium 139 (135-145) mmol/L Potassium 3.9 (3.3-5.1) mmol/L Chloride 103 (96-108) mmol/L Carbon Dioxide 27 (22-29) mmol/L Anion Gap 13 (12-20) BUN 25 H (9-16) mg/dL Creatinine 1.01 (0.5-1.4) mg/dL Estim Creat Clear Calc 70.1 Estimated GFR > 60 Random Glucose 217 H (60-115) mg/dL Lactic Acid 1.4 (0.5-2.0) mmol/L Calcium 10.1 (8.4-10.2) mg/dL Total Bilirubin 0.3 (0.0-1.0) mg/dL AST 33 (5-37) U/L ALT 45 H (0-40) U/L Alkaline Phosphatase 67 (39-117) U/L C-Reactive Protein 0.55 H (< or = 0.50) mg/dL Total Protein 7.4 (6.5-8.0) g/dL Albumin 3.8 (3.5-5.0) g/dL External Record Review External record reviewed: Inpatient record and Office record Prescription Management I considered prescription management with: Pain Medication and Antibiotic Chronic Conditions Patient?s care impacted by: Diabetes Discharge Plan Discharge Clinical Impression: Cellulitis of left leg, Peripheral vascular disease Back pain Qualifiers: Back pain location: low back pain Chronicity: unspecified Back pain laterality: unspecified Sciatica presence: unspecified whether sciatica present Qualified Code(s): M54.50 - Low back pain, unspecified Patient Disposition: Home, Self-Care Instructions: Cellulitis (ED), Back Pain (ED) Additional Instructions: Take antibiotic as directed, follow-up with your vascular surgeon Dr. Smith, return if you worse fever any concern Prescriptions: New cephalexin 500 mg capsule 500 mg PO Q8H 7 Days Qty: 21 0RF oxycodone 5 mg tablet 5 mg PO Q6H PRN (Reason: pain) Qty: 15 0RF Rx Instructions: partial filing upon pt request; Partial Fill upon patient request. No Action metformin 1,000 mg tablet 1,000 mg PO BID Qty: 60 3RF Toujeo Max U-300 SoloStar 300 unit/mL (3 mL) insulin pen 80 unit subcut BEDTIME Qty: 6 2RF (DME) pen needle, diabetic [UltiCare Pen Needle] 32 gauge x 5/32 needle See Rx Instructions .ROUTE .COMPLEX Qty: 100 11RF Dose Instruction: USE DIRECTED FOUR TIMES DAILY Rx Instructions: USE DIRECTED FOUR TIMES DAILY insulin lispro [Humalog KwikPen Insulin] 100 unit/mL insulin pen See Rx Instructions subcut .COMPLEX Qty: 30 3RF Rx Instructions: Inject 30 units before breakfast, 35 units before lunch and 35 units before dinner subcutaneously; psyllium husk [Reguloid (psyllium husk)] 0.4 gram capsule 1.2 g PO BID 90 Days Qty: 540 0RF clopidogrel [Plavix] 75 mg tablet 75 mg PO DAILY Qty: 90 1RF gabapentin 100 mg capsule 200 mg PO BEDTIME aspirin 81 mg tablet,delayed release (DR/EC) 81 mg PO DAILY (DME) insulin syringe-needle U-100 1 mL 29 gauge x 1/2 syringe See Rx Instructions .ROUTE QID Qty: 10 Rx Instructions: As directed chlorthalidone 50 mg tablet 50 mg PO QAM (DME) blood sugar diagnostic Strip See Rx Instructions Not Applicable TID Qty: 10 Rx Instructions: As directed sennosides [senna] 8.6 mg tablet 17.2 mg PO DAILY PRN (Reason: constipation) (DME) FreeStyle Willy 2 Sensor Kit See Rx Instructions .Route Qty: 2 4RF Rx Instructions: As directed change every 14 days (DME) FreeStyle Willy 2 Dutton Misc See Rx Instructions .Route Qty: 1 0RF Rx Instructions: As directed amlodipine 10 mg tablet 10 mg PO QAM verapamil 120 mg tablet extended release 120 mg PO QAM spironolactone 25 mg tablet 25 mg PO QAM tamsulosin 0.4 mg capsule 0.8 mg PO BEDTIME (DME) lancets [OneTouch UltraSoft 2 Lancet] 30 gauge misc See Rx Instructions .ROUTE TID Qty: 100 Rx Instructions: As directed (DME) lancets Misc See Rx Instructions .ROUTE TID Qty: 100 Rx Instructions: As directed Invokana 100 mg tablet 100 mg PO DAILY lactulose 10 gram/15 mL solution PO polyethylene glycol 3350 17 gram/dose powder 17 g PO DAILY cetirizine 10 mg tablet PO sennosides [senna] 8.6 mg tablet 17.2 mg PO DAILY 90 Days Qty: 180 0RF Referrals: Rodney Smith MD [Physician] - 3 days Print Language: Other
[2024-10-13 08:00] VITALS: BP 173/69; PULSE 73; RESP 16; TEMP 36.4; O2SAT 95
[2024-10-13] MEDS: vancomycin/NS 2,000 MG/500 ML PLAST..BAG 250 MG IV (08:11)
[2024-10-13 08:15] LABS: MANUAL DIFF FLAG NO
[2024-10-13 08:17] LABS: Basophils Absolute Auto 0.1 X10*3/uL (0.0-0.2); Basophils Percent Auto 0.9 % (0-2); Eosinophils Absolute Auto 0.2 X10*3/uL (0.0-0.4); Eosinophils Percent Auto 1.7 % (0-4); Hematocrit 44.3 % (42.0-52.0); Hemoglobin 14.9 g/dl (14.0-18.0); Imm Gran Abs Auto 0.06 X10*3/uL (0.00-0.03); Imm Gran Pct Auto 0.7 % (0.0-0.4); Lymphocytes Absolute Auto 2.1 X10*3/uL (1.2-4.9); Lymphocytes Percent Auto 23.2 % (20-40); Mean Corpuscular HGB Conc 33.6 g/dl (31.0-36.0); Mean Corpuscular Hemoglobin 29.3 pg (27.0-33.0); Mean Corpuscular Volume 87.2 fL (80.0-98.0); Monocytes Absolute Auto 0.7 X10*3/uL (0.1-1.2); Monocytes Percent Auto 8.3 % (2-11); Neutrophils Absolute Auto 5.8 x10*3/uL (2.0-8.3); Neutrophils Percent Auto 65.2 % (45-73); Platelet Count 278 X10*3/uL (160-400); Red Blood Count 5.08 X10*6/uL (4.60-5.80); Red Cell Distribution Width 12.6 % (11.0-16.0); White Blood Count 8.8 X10*3/uL (4.8-10.8)
[2024-10-13 08:42] LABS: Alanine Aminotransferase 45 U/L (0-40); Albumin Level 3.8 g/dL (3.5-5.0); Alkaline Phosphatase 67 U/L (39-117); Anion Gap 13 (12-20); Aspartate Amino Transferase 33 U/L (5-37); Bilirubin Total 0.3 mg/dL (0.0-1.0); Blood Urea Nitrogen 25 mg/dL (9-16); C Reactive Protein 0.55 mg/dL (< or = 0.50); Calcium 10.1 mg/dL (8.4-10.2); Carbon Dioxide 27 mmol/L (22-29); Chloride 103 mmol/L (96-108); Creatinine Clr Calc Pharmacy 70.1; Estimated Glomerular Filt Rate > 60; Glucose Random 217 mg/dL (60-115); Potassium 3.9 mmol/L (3.3-5.1); Sodium 139 mmol/L (135-145); Total Protein 7.4 g/dL (6.5-8.0)
[2024-10-13 08:43] LABS: Lactic Acid 1.4 mmol/L (0.5-2.0)
[2024-10-13 10:00] VITALS: BP 164/76; PULSE 71; RESP 16; TEMP 36.8; O2SAT 99
[2024-10-13 10:33] VITALS: BP 164/76; PULSE 71; RESP 16; TEMP 36.8; O2SAT 99
== END 2024-10-13 10:41 | disposition home or self-care (01) ==
PROVIDERS: Emergency Provider Emergency Medicine; PCP Internal Medicine Geriatric Medicine
DX: L03.116 Cellulitis of left lower limb (principal); I73.9 Peripheral vascular disease, unspecified; M54.50 Low back pain, unspecified; M79.605 Pain in left leg; E11.9 Type 2 diabetes mellitus without complications; E78.5 Hyperlipidemia, unspecified; I10 Essential (primary) hypertension; Z79.82 Long term (current) use of aspirin; Z79.4 Long term (current) use of insulin; Z79.899 Other long term (current) drug therapy; Z79.84 Long term (current) use of oral hypoglycemic drugs
CPT/HCPCS: 36415; 80053; 83605; 85025; 86140; 87040; 96365; 96366; 99283; 99284; J3370

== ENCOUNTER 2024-10-25 08:21 | Outpatient (REF) | payer OTHER, SELFPAY ==
--- NOTE | ~2024-10-25 | US_ITS ---
EXAMINATION: US ABDOMEN COMPLETE WITH LIVER ELASTOGRAPHY HISTORY: K76.0 - Fatty (change of) liver, not elsewhere classified TECHNIQUE: Real-time grayscale ultrasound imaging of the abdomen was performed and images were reviewed. COMPARISON: Comparison is made with the prior examination dated 08/10/2023. FINDINGS: Liver: The right lobe of the liver measures 18.7 cm in size. The left lobe of the liver measures 13.7 cm in size. The liver demonstrates increased echotexture, consistent with steatosis. No focal mass or intrahepatic biliary ductal dilatation is identified. There is normal hepatopedal flow in the portal vein. Ultrasound elastography of the liver was performed with 10 separate measurements of the liver parenchyma with the patient in the supine position. Measurements were obtained approximately 2 cm below Cameron's capsule and perpendicular to the capsule. Evaluation is limited due to inadequate depth difficulty with breath holds. The median shear wave velocity is 1.87 m/s. The interquartile range/median (IQR/median) is 0.09. Gallbladder and biliary tree: The gallbladder is surgically absent. The common bile duct is normal in caliber measuring 6 mm. Kidneys: The right kidney measures 12.9 cm in length and demonstrates a 2.3 x 2.0 x 1.4 cm septated cyst in the interpolar region, but is otherwise unremarkable. The left kidney measures 12.3 cm in length and demonstrates a possible punctate nonobstructing calculus at the lower pole, but is otherwise unremarkable. Pancreas: The pancreatic head, neck, and body are unremarkable. The pancreatic tail is obscured by bowel gas. Spleen: The spleen is normal in size and contour, measuring 12.1 cm in length. Abdominal aorta and inferior vena cava: The visualized portions of the abdominal aorta and inferior vena cava are normal in caliber. There is no free fluid in the abdomen. US/US abdomen comp w elastography IMPRESSION: Hepatomegaly and hepatic steatosis. The median shear wave velocity in the liver is 1.87 m/s, corresponding to a median liver stiffness of 10.60 kPa. The IQR/median value is 0.09. This is indicative of a quality data set. Findings are indicative of a high elastography value suggestive of compensated advanced chronic liver disease. REFERENCE: Society of Radiologists in Ultrasound Liver Stiffness Thresholds (2020): LIVER STIFFNESS THRESHOLDS: *Shear wave velocity less than 1.3 m/s (Liver Stiffness equal or less than 5 kPa): High probability of being normal. *Shear wave velocity less than 1.7 m/s (Liver Stiffness less than 9 kPa): In the absence of other known clinical signs, rules out compensated advanced chronic liver disease. *Shear wave velocity between 1.7-2.1 m/s (Liver Stiffness 9-13 kPa): Suggestive of compensated advanced chronic liver disease but need further test for confirmation. *Shear wave velocity between 2.1-2.4 m/s (Liver Stiffness 13-17 kPa): Rules in compensated advanced chronic liver disease. *Shear wave velocity greater than 2.4 m/s (Liver Stiffness over 17 kPa): Suggestive of clinically significant portal hypertension. QUALITY OF DATA SET: SIGNIFICANT CHANGE FROM PRIOR EXAM: Significant change if liver stiffness measurement is 10% or greater from prior exam. OTHER CONSIDERATIONS: The stage of liver fibrosis may be overestimated in the setting of acute hepatitis, liver inflammation, elevated liver function tests, hepatic vascular congestion, obstructive cholestasis, non-fasting state, and infiltrative diseases such as amyloidosis and lymphoma. In some patients with NAFLD, the liver stiffness thresholds for compensated advanced chronic liver disease may be lower. In causes other than viral hepatitis and NAFLD, liver stiffness thresholds are not well established. Electronically signed by: Berlin Willoughby MD 10/25/2024 10:13 AM EDT
--- OUTSIDE RECORDS SUMMARY | 2024-10-25 08:37 | XMS_ITS | Clinical Summary ---
Author Organization [facility] Address [address] [place] [id number] Phone Care Team Providers Care Procurement Representative Name Role Phone Name, Aneesh RIVERS Primary Care Provider [phone] Allergies Active Allergy Reactions Criticality Noted Date [...] 49 Years) Discontinued 02/17/2014, 03/15/2008, 04/14/2000 Insurance [facility] Dual [employer] [facility] Fluid Care Teams Procurement Representative Relationship Specialty Start Date End Date Name, MD Aneesh [address] [place] [address] [phone] PCP - General 06/23/20
--- OUTSIDE RECORDS SUMMARY | 2024-10-25 08:37 | XMS_ITS | Encounter Summary ---
Author Organization [employer] Address [address] [facility] 7t [place] [address] Care Team Providers Care Mining Plant Operator Name Role Phone Name, Aneesh RIVERS Primary Care Provider [phone] Sandra Rasheed PharmD Unavailable [phone] Reason for Visit * Reason Onset Date Comments Appointment Request 07/17/2024 Encounter Details Date Type Department Care Team ([facility] st Contact Info) Description 07/17/[address] [facility] MEDICINE [address] [place], [place] [phone] Name, MD Aneesh [address] [place] [address] Appointment Request Social History Tobacco Use Types [...] r/s apt for 07/17/24. Contact pt at [phone] documented in this encounter Plan of Treatment Upcoming Encounters Date Type Department Care Team (Late st Contact Info) Description 11/01/2024 9:00 AM EDT Medication Management [facility] MEDICINE [address] [place] [address] PuiaSandra, PharmD [address] [place] [address] 11/30/2024 10:00 AM EDT Office Visit [facility] OPTOMETRY [address] [place] [address] Nathanael, Jayne, OD [address] [place] [address] documented as of this encounter Visit Diagnoses Not on filedocumented in this encounter Additional Health Concerns Assessment Noted Time PHQ-9 Depression Total Score: 4 08/23/19 24 9:44 AM EDT documented as of this encounter Care Teams Mining Plant Operator Relationship Specialty Start Date End Date Name, MD Aneesh [address] [place] [address] PCP - General Family Medicine 02/14/18 Sandra Rasheed, Javi [address] [place] [address] Pharmacist Internal Medicine 08/24/24 documented as of this encounter
--- OUTSIDE RECORDS SUMMARY | 2024-10-25 08:37 | XMS_ITS | Encounter Summary ---
Author Organization [facility] Address [address] [facility] 7[address] [place] [address] Care Team Providers Care Clinical Trial Data Manager Name Role Phone Name, Aneesh RIVERS Primary Care Provider [phone] Sandra Rasheed PharmD Unavailable [phone] Encounter Details Date Type Department Care Team ([facility] st Contact Info) Description 03/23/2023 Orders Only [facility] MED & PEDS [address] [place], [place] [phone] Amber Brantley LPN Social History Tobacco Use [...] Description 11/01/2024 9:00 AM EDT Medication Management [facility] MEDICINE [address] [place] [address] Sandra Rasheed PharmD [address] [place] [address] 11/30/2024 10:00 AM EDT Office Visit [facility] OPTOMETRY [address] [place] [address] Nathanael, Jayne, OD [address] [place] [address] documented as of this encounter Visit Diagnoses Not on filedocumented in this encounter Care Teams Clinical Trial Data Manager Relationship Specialty Start Date End Date Name, MD Aneesh [address] [place] [id number] PCP - General Family Medicine 02/14/18 Sandra Rasheed PharmD [address] [place] [phone] Pharmacist Internal Medicine 08/24/24 documented as of this encounter
--- OUTSIDE RECORDS SUMMARY | 2024-10-25 08:37 | XMS_ITS | Encounter Summary ---
Author Organization [employer] Address [address] [facility] 7t [place] [address] Care Team Providers Care Mine Superintendent Name Role Phone Name, Aneesh RIVERS Primary Care Provider [phone] Sandra Rasheed PharmD Unavailable [phone] Reason for Visit * Reason Comments Med Refill Encounter Details Date Type Department Care Team ([facility] st Contact Info) Description 04/09/2024 Refill [facility] MED [facility] PEDS [address] [place], [place] [phone] Name, MD Aneesh [address] [place] [address] Chronic low back pain, unspecified back pain [...] Description 11/01/2024 9:00 AM EDT Medication Management [facility] MEDICINE [address] [place] [address] Sandra Rasheed PharmD [address] [place] [address] 11/30/2024 10:00 AM EDT Office Visit [facility] OPTOMETRY [address] [place] [address] Nathanael, Jayne, OD [address] [place] [address] documented as of this encounter Visit Diagnoses Diagnosis Chronic low back pain, unspecified back pain laterality, unspecified whether sciatica present documented in this encounter Additional Health Concerns Assessment Noted Time PHQ-9 Depression Total Score: 4 08/23/19 24 9:44 AM EDT documented as of this encounter Care Teams Mine Superintendent Relationship Specialty Start Date End Date Name, MD Aneesh [address] [place] [id number] PCP - General Family Medicine 02/14/18 Sandra Rasheed, PharmD [address] [place] [address] Pharmacist Internal Medicine 08/24/24 documented as of this encounter
--- OUTSIDE RECORDS SUMMARY | 2024-10-25 08:37 | XMS_ITS | Encounter Summary ---
Author Organization [employer] Address [address] [facility] [address] [place] [address] Care Team Providers Care Field Cane Scaler Name Role Phone Name, Aneesh RIVERS Primary Care Provider [phone] Sandra Rasheed PharmD Unavailable [phone] Reason for Visit * Reason Comments Med Refill Encounter Details Date Type Department Care Team ([facility] st Contact Info) Description 01/12/2024 Refill [facility] MED [facility] PEDS [address] [place], [place] [phone] Name, MD Aneesh [address] [place] [address] Chronic low back pain, unspecified back pain [...] 9:00 AM EDT Medication Management [facility] MEDICINE [address] [place] [address] Sandra Rasheed PharmD [address] [place] [address] 11/30/2024 10:00 AM EDT Office Visit [facility] OPTOMETRY [address] [place] [address] Nathanael, Jayne, OD [address] [place] [address] documented as of this encounter Visit Diagnoses Diagnosis Chronic low back pain, unspecified back pain laterality, unspecified whether sciatica present documented in this encounter Additional Health Concerns Assessment Noted Time PHQ-9 Depression Total Score: 4 08/23/19 24 9:44 AM EDT documented as of this encounter Care Teams Field Cane Scaler Relationship Specialty Start Date End Date Name, MD Aneesh [address] [place] [phone] PCP - General Family Medicine 02/14/18 Sandra Rasheed, PharmD [address] [place] [address] Pharmacist Internal Medicine 08/24/24 documented as of this encounter
--- OUTSIDE RECORDS SUMMARY | 2024-10-25 08:37 | XMS_ITS | Encounter Summary ---
Author Organization [employer] Address [address] [facility] 7[address] [place] [address] Care Team Providers Care Beach Lifeguard Name Role Phone Name, Aneesh RIVERS Primary Care Provider [phone] Sandra Rasheed PharmD Unavailable [phone] Reason for Visit * Reason Comments Med Refill Encounter Details Date Type Department Care Team ([facility] st Contact Info) Description 06/25/2024 Refill [facility] MEDICINE [address] [place] [address] Name, MD Aneesh [address] [place] [address] Hypertension, unspecified type; Prostatism; Type 2 diabetes mellitus with hyperglycemia (CMS/HCC); FDC (current) use of insulin ([facility]) Social History Tobacco Use Types Packs/Day Years [...] Description 11/01/2024 9:00 AM EDT Medication Management [facility] MEDICINE [address] [place] [address] Sandra Rasheed, PharmD [address] [place] [address] 11/30/2024 10:00 AM EDT Office Visit [facility] OPTOMETRY [address] [place] [address] Nathanael, Jayne, OD [address] [place] [address] documented as of this encounter Visit Diagnoses Diagnosis Hypertension, unspecified type Prostatism Unspecified hyperplasia of prostate without urinary obstruction and other lower urinary tract symptoms (LUTS) Type 2 diabetes mellitus with hyperglycemia (CMS/HCC) FDC (current) use of insulin ([facility]) documented in this encounter Additional Health Concerns Assessment Noted Time PHQ-9 Depression Total Score: 4 08/23/19 24 9:44 AM EDT documented as of this encounter Care Teams Beach Lifeguard Relationship Specialty Start Date End Date Name, MD Aneesh [address] [place] [address] PCP - General Family Medicine 02/14/18 Sandra Rasheed PharmD [address] [place] [address] Pharmacist Internal Medicine 08/24/24 documented as of this encounter
--- OUTSIDE RECORDS SUMMARY | 2024-10-25 08:37 | XMS_ITS | Clinical Summary ---
Author Organization [employer] Address [address] [facility] [address] [place] [address] Care Team Providers Care Farm Product Purchaser Name Role Phone Name, Aneesh RIVERS Primary Care Provider [phone] Sandra Rasheed PharmD Unavailable [phone] Allergies Active Allergy Reactions Criticality Noted [...] morning for pain 30 tablet 2024 Active pravastatin (Pravachol) 40 MG tablet Take 1 tablet (40 mg) by mouth Once per day. 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 (CMS/HCC) INJECT [...] IN THE EVENING BEFORE MEALS 60 tablet 11 025 Active spironolactone (Aldactone) 25 MG tabletIndication s:Hypertension, unspecified type TAKE 1 TABLET BY MOUTH EVERY MORNING 90 tablet 025 Active Aspirin Low Dose 81 MG EC tablet TAKE 1 TABLET BY MOUTH EVERYDAY AT NOON 90 tablet 3 025 Active tamsulosin (Flomax) 0.4 MG 24 hr capsuleIndicatio ns:Prostatism TAKE 2 CAPSULES BY MOUTH EVERY DAY AT BEDTIME (1/2 HOUR AFTER SUPPER) 180 capsule 3 025 Active semaglutide (Ozempic, 1 MG/DOSE,) 4 MG/3ML solution pen-injectorIndi cations:Type 2 Diabetes Mellitus Inject 1 mg under the skin 1 (one) time per week. 3 mL 025 Active gabapentin (Neurontin) 100 MG capsuleIndicatio ns:Left leg pain,Chronic low back pain, unspecified back pain laterality, unspecified whether sciatica present Take 2 capsules (200 mg) by mouth 2 times daily. 120 capsule 2 025 2024 Active cetirizine (ZyrTEC) 10 MG tabletIndication s:Chronic low back pain, unspecified back pain laterality, unspecified whether sciatica present TAKE 1 TABLET BY MOUTH TWICE DAILY 60 tablet 2 025 Active cetirizine (ZyrTEC) 10 MG tabletIndication s:Chronic low back pain, unspecified back pain laterality, unspecified whether sciatica present Take 1 tablet (10 mg) by mouth 2 times daily. 60 tablet 024 2024 Discontinued Semaglutide,0.25 or 0.5MG/DOS, (Ozempic, 0.25 or 0.5 MG/DOSE,) 2 MG/3ML solution pen-injectorIndi cations:Type 2 diabetes mellitus with hyperglycemia (CMS/HCC) Inject 0.5 mg under the skin 1 (one) time per week. 3 mL 025 2024 Discontinued(D ose adjustment) gabapentin (Neurontin) 100 MG capsuleIndicatio ns:Chronic low back pain, unspecified back pain laterality, unspecified whether sciatica present TAKE 2 CAPSULES BY MOUTH EVERY DAY AT BEDTIME 60 capsule 025 2024 Discontinued(R sheridan (will not trigger notification to Pharmacy)) Active Problems Problem Noted Date Diagnosed Date [...] Encounters Date Type Department Care Team Description 10/17/2024 Refill [facility] [address] [place] [address] NameAneesh MD Chronic low back pain, unspecified back pain laterality, unspecified whether sciatica present 10/13/2024 Orders Only GENERIC EXTERNAL DATA DEPARTMENT Provider, Generic External Data 09/26/2024 10:45 AM EDT Office Visit [facility] [address] [place] [address] Name, MD Aneesh Hypertension, unspecified type (Primary Dx); Type 2 diabetes mellitus with hyperglycemia, with long-term current use of insulin ([facility]); Left leg pain; Chronic low back pain, unspecified back pain laterality, unspecified whether sciatica present 09/26/2024 Travel 09/25/2024 Telephone [facility] [address] [place] [address] Mohinder Calero MA chart prep 09/21/2024 Telephone [facility] PEDIATRICS [address] [place] [address] Aneesh Oliveira MD critical results (Call received from lab with critical result) 09/21/2024 Orders Only GENERIC EXTERNAL DATA DEPARTMENT Provider, Generic External Data 09/20/2024 Refill [facility] [address] [facility] [place] [address] [place], [place], [facility] Prostatism 09/20/2024 Refill [facility] [address] [place] [address] Aneesh Oliveira MD Prostatism 09/19/2024 Refill [facility] [address] [place] [address] Aneesh Oliveira MD Hypertension, unspecified type 09/14/2024 Telephone [facility] [address] [place] [address] Aneesh Oliveira MD Results 09/13/2024 Orders Only [facility] [address] [place] [address] Aneesh Oliveira MD 09/12/2024 Refill [facility] [address] [place] [address] Aneesh Oliveira MD Type 2 diabetes mellitus with other specified complication, without long-term current use of insulin ([facility]); Chronic low back pain, unspecified back pain laterality, unspecified whether sciatica present 09/05/2024 Refill [facility] [address] [place] [address] Aneesh Oliveira MD 08/31/2024 Telephone [facility] [address] [place] [address] Denise Aguirre, SAMIR 08/31/2024 Telephone [facility] [address] [place] [address] Mohinder Calero [place] fax over to [facility] 08/31/2024 Telephone [facility] [address] [place] [address] Aneesh Oliveira MD 08/31/2024 Orders Only [facility] [address] [place] [phone] Aneesh Oliveira MD 08/31/2024 Orders Only [facility] [address] [place] [address] Aneesh Oliveira MD Acute deep vein thrombosis (DVT) of distal vein of left lower extremity ([facility]/HCC) (Primary Dx) 08/24/2024 9:00 AM EDT Telemedicine [facility] [address] [place] [phone] Sandra Rasheed, Javi Type 2 diabetes mellitus with hyperglycemia (CMS/HCC) (Primary Dx); 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) 08/22/2024 Telephone [facility] [address] [place] [address] Aneesh Oliveira MD ER Follow-up 08/22/2024 Orders Only [facility] External Provider, [facility] 08/13/2024 Refill [facility] [address] [place] [address] [place], [place], [employer] Chronic low back pain, unspecified back pain laterality, unspecified whether sciatica present from Last 3 Months Immunizations Immunization Administration Dates Next Due Influenza High-dose Quadriva [...] Sign Reading Time Taken Comments Blood Pressure 146/82 09/26/2024 10:37 AM EDT Pulse 75 09/26/2024 10:37 AM EDT Temperature 36 ??C (96.8 ??F) 09/26/2024 10:37 AM EDT Respiratory Rate 20 09/26/2024 10:37 AM EDT Oxygen Saturation 95% 09/26/2024 10:37 AM EDT Inhaled Oxygen Concentration - - Weight 98.2 kg (216 lb 9.6 oz) 09/26/2024 10:37 AM EDT Height 167.6 cm (5' 6 ) 09/26/2024 10:37 AM EDT Body Mass Index 34.96 09/26/2024 10:37 AM EDT Plan of Treatment Upcoming Encounters Date Type Department Care Team (Late st Contact Info) Description 11/01/2024 9:00 AM EDT Medication Management [facility] [address] [place] [address] JanelleiaSandra, PharmD [address] [place] [address] 11/30/2024 10:00 AM EDT Office Visit [facility] OPTOMETRY [address] [place] [address] NathanaelJayne agudelo, OD [address] [place] [address] Health Maintenance Due Date Last Done Comments [...] 2024 10/26/2021, 04/29/2021, 09/23/2020, Additional history exists Depression Screening 08/22/2024 08/23/2023, 08/23/19 24 SDOH Screening 08/22/2024 08/23/2023 Dental X-Ray: Full Mouth 08/27/2024 08/26/2021, 03/14 Diabetes: Hemoglobin A1C 12/26/2024 025, 05/18/2024, 10/24/2023, Additional history exists Alcohol/Substance Use Screening 05/18/2025 05/18/2024 Lipid Panel 05/24/2025 05/24/2024, 09/12, 10/08/2022, Additional history exists Eye Exam 06/01/2025 06/01/2024, 05/14, 06/01/2024, Additional history exists Diabetes: Foot Exam 09/26/2025 09/26/2024, 09/26/2024, 09/26/2024, Additional history exists Tobacco Screening 09/26/2025 09/26/2024 Colonoscopy 02/10/2026 02/10/2023, 07/23/2012 Colorectal Cancer Screening [...] patient's age to complete this topic Meningococcal B Vaccine Aged Out No l onger eligible based on patient's age to complete [...] Procedure Name Priority Date/Time Associated Diagnosis Comments LACTIC ACID Routine 10/13/2024 8:09 AM EDT C-REACTIVE PROTEIN Routine 10/13/2024 8: 09 AM EDT COMPREHENSIVE METABOLIC PANEL Routine 10/13/2024 8:09 AM EDT CBC WITH AUTO DIFFERENTIAL Routine 10/13/2024 8:09 AM EDT BLOOD CULTURE (SECOND) Routine 8:09 AM EDT BLOOD CULTURE (FIRST) Routine 10/13/2024 7:42 AM EDT POCT GLYCATED HEMOGLOBIN, TOTAL Routine 09/26/2024 10:20 AM EDT Type 2 diabetes mellitus with hyperglycemia, with long-term current use of insulin ([facility]) PROTEIN, TOTAL AND PROTEIN ELECTROPHORESIS Routine 09/21/2024 8:09 AM EDT PTH, INTACT WITHOUT CALCIUM Routine 09/21/2024 8:09 AM EDT BASIC METABOLIC PANEL Routine 09/21/2024 8:09 AM EDT URINALYSIS, COMPLETE Routine 09/21/2024 8:04 AM EDT US VENOUS DUPLEX LE LT Routine 9:02 AM EDT US VENOUS DUPLEX LE LT Routine 1:23 PM EDT URINALYSIS, COMPLETE, WITH REFLEX TO CULTURE Routine 08/22/2024 11:15 AM EDT HIGH SENSITIVITY TROPONIN I Routine 08/22/2024 9:38 AM EDT B TYPE NATRIURETIC PEPTIDE (BNP) Routine 08/22/2024 9:38 AM EDT SLIDE REVIEW Routine 08/22/2024 9:38 AM EDT BASIC METABOLIC PANEL Routine 08/22/2024 9:38 AM EDT HEPATIC FUNCTION PANEL Routine 5 9:38 AM EDT CBC WITH AUTO DIFFERENTIAL Routine 08/22/2024 9:38 AM EDT SARS COV2/INFLUENZA A/B AND RSV RNA QL NAAT Routine 08/22/2024 9:35 AM EDT US VENOUS DUPLEX LE LT Routine 5 9:[address] ABDOMEN PELVIS WO CONTRAST Routine 08/22/2024 8:58 AM EDT XR CHEST 1 VIEW Routine 08/22/2024 8:44 AM EDT LIPID PANEL, STANDARD Routine 05/24/2024 8:27 AM EST On statin therapy HM COLONOSCOPY Routine 02/10/2023 PANORAMIC RADIOGRAPHIC IMAGE Routine 08/26/2021 12:00 AM EDT ZZZ HISTORICAL HEPATITIS C AB W/REFL TO HCV RNA, QN, PCR Routine 11/25/2020 10:49 AM EDT INTRAORAL - COMPLETE SERIES OF RADIOGRAPHIC IMAGES Routine 04/03/2009 12:00 AM EDT from Last 3 Months or Most Recently Relevant to Health Maintenance Results * Blood Culture (Second) (10/13/2024 8:09 AM EDT) Blood Venous blood specimen / Unknown 10/13/2024 8:09 AM EDT 10/13/2024 8:14 AM EDT Comment:Blood Narrative [facility] - 10/18/2024 10:14 AM EDT Blood Culture (Second) No growth after 5 days. Specimen Source: Blood us Generic External Data Provider LAB MICROBIOLOGY - GENERAL ORDERABLES Final Result [facility] [address] [place] [address] [phone] * (ABNORMAL) CBC auto differential (10/13/2024 8:09 AM EDT) Only the most recent of2 resultswithin the time period is included. White Blood Count 8.8 4.8 - 10.8 X10*3/uL [facility] Red Blood Count 5.08 4.60 - 5.80 X10*6/uL [facility] Hemoglobin 14.9 14.0 - 18.0 g/dl [facility] Hematocrit 44.3 42.0 - 52.0 % [facility] Mean Corpuscular Volume 87.2 80.0 - 98.0 fL [facility] Mean Corpuscular Hemoglobin 29.3 27.0 - 33.0 pg [facility] Mean Corpuscular HGB Conc 33.6 31.0 - 36.0 g/dl [facility] Red Cell Distribution Width 12.6 11.0 - 16.0 % [facility] Platelet Count 278 160 - 400 X10*3/uL [facility] Mean Platelet Volume 10.0 9.4 - 12.4 fL [facility] Neutrophils Percent Auto 65.2 45 - 73 % [facility] Imm Gran Pct Auto 0.7(H) 0.0 - 0.4 % [facility] Lymphocytes Percent Auto 23.2 20 - 40 % [facility] Monocytes Percent Auto 8.3 2 - 11 % [facility] Eosinophils Percent Auto 1.7 0 - 4 % [facility] Basophils Percent Auto 0.9 0 - 2 % [facility] NRBC Pct Auto 0.0 0.0 - 0.2 /100WBC [facility] Neutrophils Absolute Auto 5.8 2.0 - 8.3 x10*3/uL [facility] Imm Gran Abs Auto 0.06(H) 0.00 - 0.03 X10*3/uL [facility] Lymphocytes Absolute Auto 2.1 1.2 - 4.9 X10*3/uL [facility] Monocytes Absolute Auto 0.7 0.1 - 1.2 X10*3/uL [facility] Eosinophils Absolute Auto 0.2 0.0 - 0.4 X10*3/uL [facility] Basophils Absolute Auto 0.1 0.0 - 0.2 X10*3/uL [facility] NRBC Abs Auto 0.000 0.0 - 0.012 X10*3/uL [facility] 10/13/2024 8:09 AM EDT 10/13/2024 8:14 AM EDT us Generic External Data Provider LAB BLOOD ORDERAB LES Final Result Performing Organization Address [facility] de Phone Number [facility] [address] [place] [phone] * (ABNORMAL) C-reactive Protein (10/13/2024 8:09 AM EDT) C Reactive Protein 0.55(H) < or = 0.50 mg/dL [facility] 10/13/2024 8:09 AM EDT 10/13/2024 8:14 AM EDT us Generic External Data Provider LAB BLOOD ORDERAB LES Final Result Performing Organization Address [facility] de Phone Number [facility] [address] [place] [phone] * Lactic Acid (10/13/2024 8:09 AM EDT) Lactic Acid 1.4 0.5 - 2.0 mmol/L [facility] 10/13/2024 8:09 AM EDT 10/13/2024 8:15 AM EDT us Generic External Data Provider LAB BLOOD ORDERAB LES Final Result Performing Organization Address [facility] Co de Phone Number [facility] [address] [place] [phone] * (ABNORMAL) Comprehensive Metabolic Panel (10/13/2024 8:09 AM EDT) Sodium 139 135 - 145 mmol/L [facility] Potassium 3.9 3.3 - 5.1 mmol/L [facility] Chloride 103 96 - 108 mmol/L [facility] Carbon Dioxide 27 22 - 29 mmol/L [facility] Anion Gap 13 12 - 20 [facility] Urea Nitrogen (BUN) 25(H) 9 - 16 mg/dL [facility] Creatinine, Serum 1.01 0.5 - 1.4 mg/dL [facility] Creatinine Clr Calc Pharmacy 70.1 [facility] Comment:eGFR (calculated fro m the MDRD study equation) and eCrCl(calculated from the Cockcroft-Gault equation) are based ondifferent parameters and may not yield comparable results.If eCrCl result is absurd, please check patient'sheight/weight. Estimated Glomerular Filt Rate >60 [facility] Comment:Chronic Kidney Disea se: Estimated GFR < 60 mL/min/1.32i4Itetzp Kidney Disease: Estimated GFR < 15 mL/min/1.73m2 Glucose 217(H) 60 - 115 mg/dL [facility] Calcium 10.1 8.4 - 10.2 mg/dL [facility] Bilirubin, Total 0.3 0.0 - 1.0 mg/dL [facility] Aspartate Amino Transferase 33 5 - 37 U/L [facility] Alanine Aminotransferase 45(H) 0 - 40 U/L [facility] Total Protein 7.4 6.5 - 8.0 g/dL [facility] Albumin Level 3.8 3.5 - 5.0 g/dL [facility] Alkaline Phosphatase 67 39 - 117 U/L [facility] 10/13/2024 8:09 AM EDT 10/13/2024 8:14 AM EDT us Generic External Data Provider LAB BLOOD ORDERAB LES Final Result [facility] [address] [place] [address] [phone] * Blood Culture (First) (10/13/2024 7:42 AM EDT) Blood Venous blood specimen / Unknown 10/13/2024 7:42 AM EDT 10/13/2024 7:48 AM EDT Comment:Blood Narrative [facility] - 10/18/2024 9:48 AM EDT Blood Culture (First) No growth after 5 days. Specimen Source: Blood us Generic External Data Provider LAB MICROBIOLOGY - GENERAL ORDERABLES Final Result [facility] [address] [place] [phone] * (ABNORMAL) POCT HGB A1C (09/26/2024 10:20 AM EDT) Hemoglobin A1C 9.2(A) 4.0 - 6.0 % Blood 09/26/2024 10:2 0 AM EDT Aneesh Oliveira MD POINT OF CARE TEST ENTER/EDIT OR DERABLES Final Result * (ABNORMAL) Protein, Total and Protein??Electrophoresis (09/21/2024 8:09 AM EDT) Prot Elec - Total Protein 7.1 6.1 - 8.1 g/dL [facility] Prot Elec - Albumin 3.6(A) 3.8 - 4.8 g/dL [facility] Prot Elec - Alpha1 0.3 0.2 - 0.3 g/dL [facility] Prot Elec - Alpha2 0.9 0.5 - 0.9 g/dL [facility] Prot Elec - Beta 1 0.5 0.4 - 0.6 g/dL [facility] Prot Elec - Beta 2 0.5 0.2 - 0.5 g/dL [facility] Prot Elec - Gamma 1.3 0.8 - 1.7 g/dL [facility] PES - Abn Protein Band 1 TNP [facility] PES-Abn Protein Band 2 TNP [facility] PES-Abn Protein Band 3 TNP [facility] Prot Elec - Interpretation SEE NOTE [facility] Comment:Evaluation reveals a n isolated decrease in albumin.This pattern is suggestive of decreased proteinsynthesis or protein loss. Consider ordering pre-albumin quantitation.THIS TEST WAS PERFORMED AT:[id number] [place] [id number] TOM MD 09/21/2024 8:09 AM EDT 09/21/2024 8:09 AM EDT Generic External Data Provider LAB BLOOD ORDERAB LES Final Result Performing Organization Address [facility]/ZIP Co de Phone Number [facility] [address] [place] [phone] * (ABNORMAL) PTH, Intact Without Calcium (09/21/2024 8:09 AM EDT) Parathyroid Hormone, Intact 83.7(H) 8.7 - 77.1 pg/mL [facility] 09/21/2024 8:09 AM EDT 09/21/2024 8:09 AM EDT Generic External Data Provider LAB BLOOD ORDERAB LES Final Result Performing Organization Address [facility]/ZIP Co de Phone Number [facility] [address] [place] [phone] * (ABNORMAL) Basic Metabolic Panel (09/21/2024 8:09 AM EDT) Only the most recent of2 resultswithin the time period is included. Sodium 137 135 - 145 mmol/L [facility] Potassium 4.2 3.3 - 5.1 mmol/L [facility] Chloride 103 96 - 108 mmol/L [facility] Carbon Dioxide 26 22 - 29 mmol/L [facility] Anion Gap 12 12 - 20 [facility] Urea Nitrogen (BUN) 26(H) 9 - 16 mg/dL [facility] Creatinine, Serum 1.10 0.5 - 1.4 mg/dL [facility] Estimated Glomerular Filt Rate >60 [facility] Comment:Chronic Kidney Disea se: Estimated GFR < 60 mL/min/[id number] Kidney Disease: Estimated GFR < 15 mL/min/1.73m2 Glucose 418(HH) 60 - 115 mg/dL [facility] Comment:Critical value for G LUR Results called to and read backby: BETTYE Person calling: FORTINOOSSF Date: 09/21/24Time:937 Calcium 9.7 8.4 - 10.2 mg/dL [facility] 09/21/2024 8:09 AM EDT 09/21/2024 8:09 AM EDT us Generic External Data Provider LAB BLOOD ORDERAB LES Final Result [facility] [address] [place] [phone] * (ABNORMAL) Urinalysis Complete (09/21/2024 8:04 AM EDT) Color Urine Yellow [facility] Appearance Urine Clear [facility] PH 6.5 5.0 - 9.0 [facility] Glucose Urine UA >=1000(A) Negative mg/dL [facility] Urine Blood Negative Negative [facility] Specific [place] - Urine 1.020 1.005 - 1.025 [facility] Urine Protein 100 (2+)(A) Neg-Trace mg/dL [facility] Urine Ketones Negative Negative mg/dL [facility] Nitrite Urine Negative Negative [facility] Leukocyte Esterase Urine Negative Negative [facility] RBC Urine 0-2 0 - 2 /HPF [facility] Urine WBC 0-5 0 - 5 /HPF [facility] Urine Squamous Epithelial Cell 0-2 0 - 2 /HPF [facility] Urine Bacteria None Seen None Seen [facility] Hyaline Casts, Urine 0-2 0 - 2 /LPF [facility] 09/21/2024 8:04 AM EDT 09/21/2024 8:26 AM EDT us Generic External Data Provider LAB URINE ORDERAB LES Final Result [facility] [address] [place] [phone] [phone] * US VENOUS DUPLEX LE LT (09/14/2024 9:02 AM EDT) Only the most recent of3 resultswithin the time period is included. Anatomical Region Laterality Modality Abdomen Ultrasound 09/14/2024 9:02 AM EDT Narrative 09/14/2024 9:03 AM EDT ? [facility] ?[address] ? [place] [address] ? Ultrasound Report ? Signed ? Patient: Gautam Mace,Josue ?MR#: ?? [id number] ? : 1950 ?Acct:[id number] ? Age/Sex: 74 / M ?ADM Date: 09/13/24 ? Loc: HO.[facility] ? Attending Dr: Aneesh Oliveira MD ? Ordering Physician: Aneesh Oliveira MD ?? Date of Service: 09/13/24 ?? Procedure(s): US venous duplex LE LT ?? Accession Number(s): [id number] ? cc: Aneesh Oliveira MD ? CLINICAL [...] DD/ 0902 ? TD/TT: 09/14/24 0902 ? Grain Farmer: ? Procedure Note Donotuseinterpreter, Image - 09/14/2024 [facility] [address] [place] [address] [place] [address] Ultrasound Report Signed Patient: Sylvia Dawson#: [id number] : 1Acct:[id number] Age/Sex: 74 / MADM Date: 09/13/24 [facility] Dr: Aneesh Oliveira MD Ordering Physician: Aneesh Oliveira MD Date of Service: 09/13/24 Procedure(s): US venous duplex LE LT Accession Number(s): [id number] cc: Aneesh Oliveira MD CLINICAL HISTORY: LEFT [...] in OV> 09/14/24902 DD/ 1 TD/TT: 09/14/24901 Grain Farmer: Aneesh Oliveira MD IMG US PROCEDURES Final Result * (ABNORMAL) Urinalysis, Complete, with Reflex to Culture (08/22/2024 11:15 AM EDT) Color Urine Yellow [facility] Appearance Urine Clear [facility] PH 6.5 5.0 - 9.0 [facility] Glucose Urine UA >=1000(A) Negative mg/dL [facility] Urine Blood Trace(A) Negative [facility] Specific [place] - Urine 1.020 1.005 - 1.025 [facility] Urine Protein 300 (3+)(A) Neg-Trace mg/dL [facility] Urine Ketones Negative Negative mg/dL [facility] Nitrite Urine Negative Negative [facility] Leukocyte Esterase Urine Negative Negative [facility] RBC Urine 0-2 0 - 2 /HPF [facility] Urine WBC 0-5 0 - 5 /HPF [facility] Urine Squamous Epithelial Cell 0-2 0 - 2 /HPF [facility] Urine Bacteria None Seen None Seen [facility] Hyaline Casts, Urine 0-2 0 - 2 /LPF [facility] 08/22/2024 11:1 5 AM EDT 08/22/2024 11:24 AM EDT Narrative [facility] - 08/22/2024 11:33 AM EDT [id number], Clean Catch Generic External Data Provider LAB URINE ORDERAB LES Final Result Performing Organization Address [facility] Co de Phone Number [facility] [address] [place] [phone] * Slide Review (08/22/2024 9:38 AM EDT) Slide Review VERIFIED [facility] 08/22/2024 9:38 AM EDT 08/22/2024 9:41 AM EDT Generic External Data Provider LAB BLOOD ORDERAB LES Final Result Performing Organization Address [facility] Co de Phone Number [facility] [address] [place] [phone] * High Sensitivity Troponin I (08/22/2024 9:38 AM EDT) TROPONIN I HIGH SENSITIVITY 3.2 <3.5 - 35.0 ng/L [facility] Comment:The One[employer] high sens itivity Troponin-I results should beused in conjunction with other diagnostic information suchas ECG, clinical observations and information, and patientsymptoms to aid in the diagnosis of MD. 08/22/2024 9:38 AM EDT 08/22/2024 9:41 AM EDT us Generic External Data Provider LAB BLOOD ORDERAB LES Final Result Performing Organization Address [facility]/ZIP Co de Phone Number [facility] [address] [place] [phone] * B Type Natriuretic Peptide (BNP) (08/22/2024 9:38 AM EDT) B Type Natriuretic Peptide 24 <100 pg/mL [facility] 08/22/2024 9:38 AM EDT 08/22/2024 9:41 AM EDT us Generic External Data Provider LAB BLOOD ORDERAB LES Final Result Performing Organization Address [facility] de Phone Number [facility] [address] [place] [phone] * (ABNORMAL) Hepatic Function Panel (08/22/2024 9:38 AM EDT) Bilirubin, Total 0.4 0.0 - 1.0 mg/dL [facility] Bilirubin, Direct 0.1 0.0 - 0.5 mg/dL [facility] Aspartate Amino Transferase 33 5 - 37 U/L [facility] Alanine Aminotransferase 48(H) 0 - 40 U/L [facility] Total Protein 7.6 6.5 - 8.0 g/dL [facility] Albumin Level 3.5 3.5 - 5.0 g/dL [facility] Alkaline Phosphatase 70 39 - 117 U/L [facility] 08/22/2024 9:38 AM EDT 08/22/2024 9:41 AM EDT Generic External Data Provider LAB BLOOD ORDERAB LES Final Result Performing Organization Address [facility] Co de Phone Number [facility] [address] [place] [phone] * (ABNORMAL) SARS-CoV-2 RNA, Influenza A/B, and RSV RNA, Ql NAAT (08/22/2024 9:35 AM EDT) Influenza A PCR NEGATIVE Negative [facility] Influenza B PCR NEGATIVE Negative [facility] Resp Syncy Virus RNA Qual PCR NEGATIVE Negative [facility] SARS COV2 PCR POSITIVE(A) Negative [facility] Comment:All test results mus t be [...] use by authorized laboratories.Testing performed on the [employer] GeneXpert utilizingreal-time RT-PCR.All SARS CoV2 and positive influenza A/B results arereported to [facility]. 08/22/2024 9:35 AM EDT 08/22/2024 9:41 AM EDT us Generic External Data Provider LAB MICROBIOLOGY - GENERAL ORDERABLES Final Result Performing Organization Address City/State/[facility] Co de Phone Number [facility] [address] [place] [phone] * CT Abdomen Pelvis w/o Contrast (08/22/2024 8:58 AM EDT) Anatomical Region Laterality Modality Body, Pelvis, Abdomen Computed T omography 08/22/2024 8:58 AM EDT Narrative 08/22/2024 9:14 AM EDT ? [facility] ?[address] ?[place] [address] ? CT Scan Report ? Signed ? Patient: Dain Mace,Josue ?MR#: ?? [id number] ? : 1950 ?Acct:[id number] ? Age/Sex: 74 / M ?ADM Date: 03/12/25 ? Loc: HO.ED ? Attending Dr: ? Ordering Physician: Alina Odom MD ?? Date of Service: 08/22/24 ?? Procedure(s): CT abdomen pelvis wo IV con ?? Accession Number(s): [id number] ? cc: Alina Odom MD; Name,Aneesh RIVERS ? Report Number: ?? [id number]: Total DLP = ??751.00 mGy-cm ?? EXAMINATION: [...] DD/ 0858 ? TD/TT: 08/22/24 0858 ? Grain Farmer: ? Procedure Note Hannah Mathis - 08/22/[address] [address] [address] Scan Report Signed Patient: Josue Dawson#: [id number] : 1Acct:[id number] Age/Sex: 74 / MADM Date: 08/22/24 Loc: HO.ED Attending Dr: Ordering Physician: Alina Odom MD Date of Service: 08/22/24 Procedure(s): CT abdomen pelvis wo IV con Accession Number(s): [id number] cc: Alina Odom MD; Name,Aneesh Report Number: [id number]: Total DLP = 751.00 mGy-cm EXAMINATION: CT [...] OV> 08/22/24 0910 DD/ 7 TD/TT: 08/22/24857 Grain Farmer: [facility] External Provider IMG CT PROCEDURES Final Result * XR Chest 1 View (08/22/2024 8:44 AM EDT) Anatomical Region Laterality Modality Chest Radiographic Trang ging 08/22/2024 8:44 AM EDT Narrative 08/22/2024 9:24 AM EDT ? [facility] ?[address] ?[place] [address] ?XRay Report ? Signed ? Patient: Josue Dawson ?MR#: ?? [id number] ? : 1950 ?Acct:[id number] ? Age/Sex: 74 / M ?ADM Date: 08/22/24 ? Loc: HO.ED ? Attending Dr: ? Ordering Physician: Alina Odom MD ?? Date of Service: 08/22/24 ?? Procedure(s): XR chest 1V ?? Accession Number(s): [id number] ? cc: Odom,Alina Salcedo MD; Name,Aneesh RIVERS ? EXAMINATION: ?? XR [...] signed by Luiz Manzo MD in OV> ?08/22/24919 ? DD/ 0844 ? TD/TT: 08/22/24 09 ? Grain Farmer: ? Procedure Note Donotuseinterpreter, Image - 08/22/2024 [place] [address] XRay Report Signed Patient: Josue DawsonMR#: [id number] : 1950cct:[id number] Age/Sex: 74 / MADM Date: 08/22/24 Loc: HO.ED Attending Dr: Ordering Physician: Alina Odom MD Date of Service: 08/22/24 Procedure(s): XR chest 1V Accession Number(s): [id number] cc: Alina Odom MD; Name,Aneesh RIVERS EXAMINATION: [...] in OV> 08/22/24919 DD/ 3 TD/TT: 08/22/24900 Grain Farmer: [facility] External Provider IMG XR PROCEDURES Final Result * (ABNORMAL) Lipid Panel, Standard (05/24/2024 8:27 AM EST) Triglycerides 185(H) <150 mg/dL [facility] Comment:Desirable Triglyceri de: less than 150 mg/dLBorderline High Triglyceride 150-199 mg/dLHigh Triglyceride: 200-499 mg/dLVery High Triglyceride: greater than or equal to 5OO mg/dL Cholesterol 162 <200 mg/dL [facility] Comment:Desirable Cholestero l: less than 200 mg/dLBorderline High Cholesterol: 200-239 mg/dLHigh Cholesterol: greater than 239 mg/dL LDL Cholesterol Calculated 88 <100 mg/dL [facility] Comment:Desirable LDL: less than 100 mg/dLNear Optimal/Above Optimal LDL: 110- 129 mg/dLBorderline High LDL: 130-159 mg/dLHigh LDL: 160-189 mg/dLVery High LDL: greater than or equal to 190 mg/dL HDL Cholesterol 37(L) >40 mg/dL [facility] Comment:Desirable HDL: great er than 40 mg/dL Note: This HDL assay may give artificially low results in patients with liver disease. Blood Venous blood specimen / Unknown 05/24/2024 8:27 AM EST 05/24/2024 8:27 AM EST us Aneesh Oliveira MD LAB BLOOD ORDERABLES Final Resul t [facility] [address] [place], [place] [phone] * (ABNORMAL) Colonoscopy (02/10/2023) Colonoscopy Abnormal(A ) Normal us Aneesh Oliveira MD HEALTH MAINTENANCE Final Result * HEPATITIS C AB W/REFL TO HCV RNA, QN, PCR (11/25/2020 10:49 AM EDT) HEPATITIS C ANTIBODY NON-REACT TOM NON-REACT TOM [facility] INDEX 0.00 <1.00 [facility] Comment: ?? HCV antibody was non-reactive. There is no laboratory ?? evidence of HCV infection. ?? In most cases, no further action is required. However, if recent HCV exposure is suspected, a test for HCV RNA (test code 34847) is suggested. ?? For additional information please refer to http://Ke[employer]/faq/HRQ28p1 (This link is being provided for informational/ educational purposes only.) ?? 11/25/2020 10:4 9 AM EDT us Aneeshkayden Oliveira MD HISTORICAL/NON ORDERABLE LABS Fi nal Result [facility] [address] from Last 3 Months or Most Recently Relevant to Health Maintenance Insurance [facility] STANDARD UHC DUAL COMPLETE DENTAL - [facility] Care Teams Farm Product Purchaser Relationship Specialty Start Date End Date Name, MD Aneesh [address] [place] [address] PCP - General Family Medicine 02/14/18 Sandra Rasheed PharmD [address] [place] [address] Pharmacist Internal Medicine 08/24/24
--- OUTSIDE RECORDS SUMMARY | 2024-10-25 08:37 | XMS_ITS | Encounter Summary ---
Author Organization [employer] Address [address] [facility] 7t [place] [address] Care Team Providers Care Vacuum Cleaner Assembler Name Role Phone Name, Aneesh RIVERS Primary Care Provider [phone] Sandra Rasheed PharmD Unavailable [phone] Reason for Visit * Reason Comments Med Refill Encounter Details Date Type Department Care Team ([facility] st Contact Info) Description 08/18/2023 Refill [facility] MEDICINE [address] [place] [address] Name, MD Aneesh [address] [place] [address] Social History Tobacco Use Types Packs/Day Years [...] Description 11/01/2024 9:00 AM EDT Medication Management [facility] MEDICINE [address] [place] [address] Sandra Rasheed PharmD [address] [place] [address] 11/30/2024 10:00 AM EDT Office Visit [facility] OPTOMETRY [address] [place] [address] Nathanael, Jayne, OD [address] [place] [address] documented as of this encounter Visit Diagnoses Not on filedocumented in this encounter Care Teams Vacuum Cleaner Assembler Relationship Specialty Start Date End Date Name, MD Aneesh [address] [place] [address] PCP - General Family Medicine 02/14/18 Sandra Rasheed, PharmD [address] [place] [phone] Pharmacist Internal Medicine 08/24/24 documented as of this encounter
--- OUTSIDE RECORDS SUMMARY | 2024-10-25 08:37 | XMS_ITS | Encounter Summary ---
Author Organization [employer] Address [address] [facility] 7t [place] [address] Care Team Providers Care Patroller Name Role Phone Name, Aneesh RIVERS Primary Care Provider [phone] Sandra Rasheed PharmD Unavailable [phone] Reason for Visit * Reason Onset Date Comments FYI 08/23/2023 Encounter Details Date Type Department Care Team ([facility] Contact Info) Description 08/23/2023 Telephone [facility] MEDICINE [address] [place], [place] [phone] Name, MD Aneesh [address] [place] [address] FYI Social History Tobacco Use Types Packs/Day [...] AM EDT documented as of this encounter Functional Status * Over the past 2 weeks, how often have you been bothered by any of the following problems? Question Answer Date of Assessment Author Patient Health Questionnaire-2 Score 2 08/11 9:44 AM Corinne Leal * If you checked off any problems on this questionnaire so far, Question Answer Date of Assessment Author How difficult have these problems made it for you to do your work, take care of things at home, or get along with other people? Somewhat difficult 08/23/2023 9:44 AM Emilia Leal * Over the past 2 weeks, how often have you been bothered by any of the following problems? Question Answer Date of Assessment Author Little interest or pleasure in doing things Several days 08/23/2023 9:44 AM Emilia Leal Feeling down, depressed, or hopeless Several days 08/23/2023 9:44 AM Emilia Leal Trouble falling or staying asleep, or sleeping too much Not at all 08/23/2023 9:44 AM Corinne Stern Feeling tired or having rosa le energy Several days 08/23/2023 9:44 AM Emilia Leal Poor appetite or overeating Not at all 08/23/2023 9: 44 AM Corinne Leal Feeling bad about yourself - or that you are a failure or have let yourself or your family down Several days 08/23/2023 9:44 AM Emilia Leal Trouble concentrating on things, such as reading the newspaper or watching television Not at all 08/23/2023 9:44 AM EDT Emilia Laguna Moving or speaking so slowly that other people could have noticed? Or the opposite - being so fidgety or restless that you have been moving around a lot more than usual. Not at all 08/23/2023 9:44 AM EDT Corinne Griffith Thoughts that you would be better off or hurting yourself in some way Not at all 08/23/2023 9:44 AM EDT Inge Laguna Patient Health Questionnaire -9 Score 4 08/23/2023 9:44 AM EDT Emilia Laguna documented as of this encounter Miscellaneous Notes * Telephone Encounter - Ronnie Laguna - 08/23/2023 3:03 PM EDT Tc from Leidy with [place] [facility] stating pt no longer wants to continue care with them. Leidy stated pt no showed 3 appts in a row and when asked about it pt said it was due to to transportation. Pt claims they are irresponsible and that they don't communicate. Pt stated he will continue care with PCP. If any questions please contact Leidy at [phone]. documented in this encounter Plan of Treatment Upcoming Encounters Date Type Department Care Team (Late st Contact Info) Description 11/01/2024 9:00 AM EDT Medication Management [facility] MEDICINE [address] [place] [address] Sandra Rasheed, PharmD [address] [place] [address] 11/30/2024 10:00 AM EDT Office Visit [facility] OPTOMETRY [address] [place] [address] Jayne Huffman, BRYANT [address] [place] [address] documented as of this encounter Visit Diagnoses Not on filedocumented in this encounter Additional Health Concerns Assessment Noted Time PHQ-9 Depression Total Score: 4 08/23/19 9:44 AM EDT documented as of this encounter Care Teams Patroller Relationship Specialty Start Date End Date Name, MD Aneesh [address] [place] [address] PCP - General Family Medicine 02/14/18 Sandra Rasheed PharmD [address] [place] [address] Pharmacist Internal Medicine 08/24/24 documented as of this encounter
--- OUTSIDE RECORDS SUMMARY | 2024-10-25 08:37 | XMS_ITS | Encounter Summary ---
Author Organization [employer] Address [address] [facility] 7t [place] [address] Care Team Providers Care Senior Business Analyst Name Role Phone Name, Aneesh RIVERS Primary Care Provider [phone] Sandra Rasheed PharmD Unavailable [phone] Reason for Visit * Reason Comments Med Refill Encounter Details Date Type Department Care Team ([facility] st Contact Info) Description 05/02/2024 Refill [facility] MEDICINE [address] [place] [address] Name, MD Aneesh [address] [place] [address] Chronic constipation Social History Tobacco Use Types [...] 9:00 AM EDT Medication Management [facility] MEDICINE [address] [place] [address] Sandra Rasheed PharmD [address] [place] [address] 11/30/2024 10:00 AM EDT Office Visit [facility] OPTOMETRY [address] [place] [address] Nathanael, Jayne, OD [address] [place] [address] documented as of this encounter Visit Diagnoses Diagnosis Chronic constipation Unspecified constipation documented in this encounter Additional Health Concerns Assessment Noted Time PHQ-9 Depression Total Score: 4 08/23/19 24 9:44 AM EDT documented as of this encounter Care Teams Senior Business Analyst Relationship Specialty Start Date End Date Name, MD Aneesh [address] [place] [phone] PCP - General Family Medicine 02/14/18 Sandra Rasheed, PharmD [address] [place] [phone] Pharmacist Internal Medicine 08/24/24 documented as of this encounter
--- OUTSIDE RECORDS SUMMARY | 2024-10-25 08:37 | XMS_ITS | Encounter Summary ---
Author Organization [email or web address] Address [address] [facility] 7t [place] [address] Care Team Providers Care Office Admin Name Role Phone Name, Aneesh RIVERS Primary Care Provider [phone] Sandra Rasheed PharmD Unavailable [phone] Reason for Visit * Reason Comments Med Refill Encounter Details Date Type Department Care Team (Late st Contact Info) Description 08/19/2023 Refill [facility] MEDICINE [address] [place] [address] Name, MD Aneesh [address] [place] [address] Social History Tobacco Use Types Packs/Day Years [...] 9:00 AM EDT Medication Management [facility] MEDICINE [address] [place] [address] Sandra Rasheed PharmD [address] [place] [address] 11/30/2024 10:00 AM EDT Office Visit [facility] OPTOMETRY [address] [place] [address] Nathanael, Jayne, OD [address] [place] [address] documented as of this encounter Visit Diagnoses Not on filedocumented in this encounter Care Teams Office Admin Relationship Specialty Start Date End Date Name, MD Aneesh [address] [place] [address] PCP - General Family Medicine 02/14/18 Sandra Rasheed, PharmD [address] [place] [phone] Pharmacist Internal Medicine 08/24/24 documented as of this encounter
--- OUTSIDE RECORDS SUMMARY | 2024-10-25 08:37 | XMS_ITS | Data Portability ---
Author Organization [place] - [facility], All[facility] Address [address] [address] Care Team Providers Care Stay Cutter Name Role Phone NAME, LAURENT Primary Care Provider [phone] Assessment Encounter Date Assessment Date Assessment LastModified [...] vocal quality. I recommended he see a nanotechnician, voice specalist, to evaluate him and see if he would be a good candidate for a more permanent medialization procedure. Patient is willing and interested to travel to [place] to hear options. - Referral to [facility] Otolaryngology - Dr. Stafford or Dr. Machuca for discussion [email or web address] Not available 05/04/2024 08:27:45 Plan of Treatment Reminders Order Date Submit Date Provider Last Modified By Organization Details Last Modified Time Details Appointments None recorded. Lab None recorded. Referral otolaryngol ogist referral - Attn: Betsy. Dr. Machuca or Dr. Stafford - bilateral vocal cord paralysis. 2023 024 [email or web address] 2 [facility] Otol[facility] y, [address], [place], [address], 4 10:41:11 Procedures None recorded. Surgeries None recorded. Imaging None recorded. Medication Orders None recorded. Patient TargetsNo targets recorded. Patient InstructionsNo instructions recorded. Reason for Referral Fine Unhairer Referral fo r Dysphonia Attn: Birgit. Dr. Machuca or Dr. Stafford - bilateral vocal cord paralysis. Referring Physician: Ryan Maya, Otolaryngology, Encounter Date: 05/03/2024 Problems Name Problem SNOMED Code Status Onset Date Resolution Date Notes Provider Name and Address Organization Details Recorded Time Paralysis of larynx 08037014 Active 2018 Paralysis of vocal cords and larynx, unspecifie d; Note: Date Diagnosed: 12/25/2018 2:49 PM (J38.00) Not Available [facility] 4 03:24:49 Dysphonia 64225482 Active 2018 Hoarseness ; Note: Date Diagnosed: 12/25/2018 2:49 PM (R49.0) Not Available [facility] 4 03:24:49 Simple goiter 650161509 Active 2018 Goiter NOS; Note: Date Diagnosed: 12/25/2018 2:49 PM (E04.9) Not Available [facility] 4 03:24:49 Paralysis of larynx 93713423 Active 2023 RYAN MAYA MD [address] [place] [address], [phone] , [facility] 4 08:24:41 Problem Notes None recorded. Procedures Surgical History Date Name Laterality Status Provider Name and Address Organization Details Recorded Time 05/03/20 24 Fiberoptic Laryngoscopy (Comprehensive) completed RYAN MAYA MD [address] [place] [address], [phone], [facility] 05/04/2024 08:24:07 Imaging Results None recorded. [...] Updated DateTime 05/03/2024 167.64 cm 34.7 kg/m2 30946.36 g Natalilinda Ramírez [place] - [facility] 05/03/2024 13:28:04 Social History None recorded. Functional Status None recorded. Mental Status None recorded. Family History Nothing Reported. Medical History No medical history recorded. Past Encounters Encounter ID Performer Location Encounter Start Date Encounter Closed Date Diagnosis/Indication Diagnosis SNOMED-CT Code Diagnosis ICD10 Code Diagnosis Note [id number] RYAN MAYA MD [facility] [address] [address] 05/03/2024 13:04:26 05/03/2024 16:54:58 Paralysis of larynx 26263793 J38.02 Dysphonia 29478998 R49.9 Health Concerns Section Related Observation LastModified by Organization Detai ls LastModified Time None Recorded Concern Status LastModified by Organization Details LastModified Time None Recorded Advance Directives Directive None Recorded Payers Insurance Date Sequence Insurance Name Policy Number Policy Ohod Covered Member ID Hood Member ID Guarantor Name 05/03/2024 1 [facility] (MEDICARE REPLACEMENT/ ADVANTAGE - HMO) Josue Mace [id number] Josue Mace 05/02/2024 2 [place] [facility] Joseu Mace [id number] Josue Mace Notes Date Note Type Note Provider Name and Address Organization Details Recorded Time 05/03/2024 text/html 73yo gentleman rodrigo miguel presents today for evaluation of bilateral vocal cord paralysis and dysphonia. He has had difficulty with his voice for about 5 years. He underwent a traumatic intubation at [facility] in 2018 in the setting of an anaphylactic event. Following, this resulted in dysphonia and dyspnea with exertion. He was seen by otolaryngology in [place] - Dr. John Coppola. At that time, [...] aspirin 81 & clopidogrel. RYAN MAYA MD [address] [place] [address], [phone], [facility] - [facility] 05/04/2024 20:31:01
== END 2024-10-25 08:22 | disposition home or self-care (01) ==
LOC: HO.US 08:21
PROVIDERS: PCP Internal Medicine Geriatric Medicine; Visit Provider Internal Medicine
DX: K76.0 Fatty (change of) liver, not elsewhere classified (principal)
CPT/HCPCS: 76700; 76981

== ENCOUNTER → 2024-10-25 08:22 | Outpatient (BNV) | payer OTHER, SELFPAY | PROVIDERS: PCP Internal Medicine Geriatric Medicine; Visit Provider Radiology Diagnostic Radiology | DX: R16.0 Hepatomegaly, not elsewhere classified (principal); K76.0 Fatty (change of) liver, not elsewhere classified; N28.1 Cyst of kidney, acquired; Z90.6 Acquired absence of other parts of urinary tract | CPT/HCPCS: 76700; 76981 ==

== ENCOUNTER 2024-11-17 10:18 | Outpatient (REF) | payer OTHER, SELFPAY ==
--- OUTSIDE RECORDS SUMMARY | 2024-11-17 10:20 | XMS_ITS | Encounter Summary ---
Author Organization [employer] Address [address] [facility] [address] [place] [address] Care Team Providers Care Clinical Data Specialist Name Role Phone Name, Aneesh RIVERS Primary Care Provider [phone] Sandra Rasheed PharmD Unavailable [phone] Reason for Visit * Reason Comments Med Refill Encounter Details Date Type Department Care Team ([facility] st Contact Info) Description 01/12/2024 Refill [facility] MED & PEDS [address] [place], [place] [phone] Name, MD Aneesh [address] [place] [address] Chronic low back pain, unspecified back pain [...] Care Team (Late st Contact Info) Description 11/26/2024 10:00 AM EDT Office Visit [facility] OPTOMETRY [address] [place] [address] Nathanael, Jayne, OD [address] [place] [address] 12/05/2024 9:30 AM EDT Medication Management [facility] MEDICINE [address] [place] [address] Sandra Rasheed, PharmD [address] [place] [address] 02/20/2025 9:30 AM EDT Office Visit [facility] MEDICINE [address] [place] [phone] Aneesh Oliveira MD [address] [place] [address] documented as of this encounter Visit Diagnoses Diagnosis Chronic low back pain, unspecified back pain laterality, unspecified whether sciatica present documented in this encounter Additional Health Concerns Assessment Noted Time PHQ-9 Depression Total Score: 4 08/23/19 24 9:44 AM EDT documented as of this encounter Care Teams Clinical Data Specialist Relationship Specialty Start Date End Date Aneesh Oliveira MD [address] [place] [id number] PCP - General Family Medicine 02/14/18 Sandra Rasheed, Javi [address] [place] [address] [place], [place] [id number] Pharmacist Internal Medicine 08/24/24 documented as of this encounter
[2024-11-17 10:45] LABS: Hematocrit 42.6 % (42.0-52.0); Hemoglobin 14.7 g/dl (14.0-18.0); Mean Corpuscular HGB Conc 34.5 g/dl (31.0-36.0); Mean Corpuscular Hemoglobin 29.9 pg (27.0-33.0); Mean Corpuscular Volume 86.8 fL (80.0-98.0); Mean Platelet Volume 10.2 fL (9.4-12.4); Platelet Count 272 X10*3/uL (160-400); Red Blood Count 4.91 X10*6/uL (4.60-5.80); Red Cell Distribution Width 12.8 % (11.0-16.0); White Blood Count 9.3 X10*3/uL (4.8-10.8)
[2024-11-17 10:55] LABS: Prothrombin Time 11.4 SEC (10.9-12.4)
[2024-11-17 11:07] LABS: Appearance Urine Clear; Color Urine Yellow; Glucose Urine UA >=1000 mg/dL (Negative); Leukocyte Esterase Urine Negative (Negative); Nitrite Urine Negative (Negative); UMIC TRIGGER UA YES; Urine Blood Negative (Negative); Urine Ketones Negative (Negative); Urine Protein 300 (3+) mg/dL (Neg-Trace)
[2024-11-17 11:08] LABS: Alanine Aminotransferase 38 U/L (0-40); Albumin Level 3.9 g/dL (3.5-5.0); Alkaline Phosphatase 62 U/L (39-117); Anion Gap 11 (12-20); Aspartate Amino Transferase 30 U/L (5-37); Bilirubin Total 0.4 mg/dL (0.0-1.0); Blood Urea Nitrogen 19 mg/dL (9-16); Calcium 9.9 mg/dL (8.4-10.2); Carbon Dioxide 28 mmol/L (22-29); Chloride 102 mmol/L (96-108); Cholesterol 179 mg/dL (<200); Estimated Average Glucose 217 mg/dL; Estimated Glomerular Filt Rate > 60; Glucose Random 212 mg/dL (60-115); HDL Cholesterol 39 mg/dL (>40); Hemoglobin A1c % 9.2 % (<6.0); LDL Cholesterol Calculated 115 mg/dL (<100); Potassium 3.8 mmol/L (3.3-5.1); Sodium 137 mmol/L (135-145); Total Protein 7.4 g/dL (6.5-8.0); Triglycerides 129 mg/dL (<150)
[2024-11-17 11:12] LABS: Bacteria Urine None Seen (None Seen); Hyaline Casts Urine 0-2 /LPF (0-2); RBC Urine 0-2 /HPF (0-2); Squamous Epithelial Cell Urine 0-2 /HPF (0-2); WBC Urine 0-5 /HPF (0-5)
== END 2024-11-17 10:19 | disposition home or self-care (01) ==
LOC: HO.LAB 10:18
PROVIDERS: Internal Medicine; PCP Internal Medicine Geriatric Medicine; Visit Provider Internal Medicine Hypertension Specialist
DX: K76.0 Fatty (change of) liver, not elsewhere classified (principal); N18.9 Chronic kidney disease, unspecified; Z13.1 Encounter for screening for diabetes mellitus
CPT/HCPCS: 36415; 80053; 80061; 81001; 81003; 83036; 85027; 85610

== ENCOUNTER 2024-11-19 10:01 | Outpatient (AMB) | payer OTHER, SELFPAY ==
--- NOTE | 2024-11-19 10:25 | HO.NEPHOV_ITS ---
Vital Signs 11/19/24 10:29 Height 5 ft 6 in Weight 221 lb 6 oz BMI 35.7 BP 110/60 Blood Pressure Location Lt brachial Position Sitting Pulse 75 Pulse Source Pulse Oximeter Pulse Oximetry (%) 97 Oxygen Delivery Method Room Air Intake Visit Reasons: 4 Month Follow up/ LVM Pharmacy Director Required: Yes Pharmacy Director Language: Career Professional Services: Pharmacy Director Offered & Declined ([facility] [place]acy Director services refused ) Accompanied by: Daughter Allergies lisinopril [LISINOPRIL] Allergy (Severe, Verified 11/19/24 10:29) ANGIOEDEMA prednisone [PREDNISONE] Allergy (Mild, Verified 11/19/24 10:29) ITCHY Medication List - Last Reconciled 11/19/24 by Jd Painter MD amlodipine 10 mg PO QAM aspirin 81 mg PO DAILY blood sugar diagnostic As directed canagliflozin (Invokana) 100 mg PO DAILY chlorthalidone 50 mg PO QAM clopidogrel (Plavix) 75 mg PO DAILY flash glucose scanning reader (CodeGuard Willy 2 [place]) As directed flash glucose sensor (FreeStyle Willy 2 Sensor kit) As directed change every 14 days gabapentin 200 mg PO BID insulin glargine U-300 conc (Toujeo Max U-300 SoloStar) 80 units (0.2667 mL) subcut BEDTIME insulin lispro (Humalog KwikPen (U-100) Insulin) Inject 30 units before breakfast, 35 units before lunch and 35 units before dinner subcutaneously; insulin syringe-needle U-100 As directed lancets (OneTouch UltraSoft 2 Lancet) As directed lancets As directed metformin 1,000 mg PO BID pen needle, diabetic (UltiCare Pen Needle) USE DIRECTED FOUR TIMES DAILY semaglutide (Ozempic) mg subcut spironolactone 25 mg PO QAM tamsulosin 0.8 mg PO BEDTIME verapamil ER 120 mg PO QAM HPI Comments Details: 72-year-old man with a history of longstanding hypertension and diabetes mellitus with CKD. He has had episodes of acute kidney injury an currently renal function is back to baseline. Baseline creatinine is less than 1.0. He has difficult to control blood sugars. Recent A1c was 8.2%. Blood pressure has been well controlled. He has microalbuminuria. He has not any WAI inhibitor due to angioedema requiring ICU admission. He is currently on Invokana History of nontoxic multinodular goiter. Pharmacy Director service was used Cellulitis of left leg : s/p antibiotics 03/08/24 Doing better ;Seen by Dr. Smith s/p Successful plasty of left popliteal and peroneal artery on 03/07/24 04/23/24 c/o body pain;On statins 07/16/24 ;On ozempic- lost about 10 lbs Did not take anti hypertensives today 09/25/24 : Overall doing well. No urinary issues Recent CT showed incidental 2 cm cyst right kidney and anterior bladder wall thickening 11/19/24 74-year-old male presenting with persistent flank pain and diabetes control. Persistent flank pain, primarily on the left side, is reported by the patient. The pain generally arises with physical exertion or when bending and bothers him at night, though it somewhat subsides with Tylenol. Diagnosed with a stable simple renal cyst on previous imaging, this lesion has not changed since a CT scan in August. He also grapples with being overweight, recently gaining nearly 10 pounds. His diet is largely uncontrolled, leading to substantial meal consumption driven by profound hunger. The patient's diabetes management is suboptimal, as evidenced by a Hemoglobin A1c of 9.2. Routine kidney function tests indicate stable results, though recent urinalysis did not include the requested tests needed for comprehensive diabetes management. [facility] Medical History NAFLD (nonalcoholic fatty liver disease) Transaminitis Basal cell carcinoma (BCC) Skin lesion of left lower extremity Heart murmur Familial hypocalciuric hypercalcemia Multinodular thyroid Vitamin D deficiency HLD (hyperlipidemia) HTN (hypertension) T2DM (type 2 diabetes mellitus) Surgical History Hx of melanoma excision Hx of esophagogastroduodenoscopy Hx of colonoscopy Hx of appendectomy Hx of cholecystectomy Family History Father CVD (cardiovascular disease) Diabetes Brother CVD (cardiovascular disease) Diabetes FH: heart attack Social History Household Members: Family Housing: House Do you presently have visiting nurse or other home services: Yes (visiting nurse 2x week) Alcohol intake: never Patient Tobacco Use Status: Never used Tobacco service: No Current occupational status: unemployed Physical Exam Vital Signs: Last Vital Signs Pulse 75 11/19/24 10:29 BP 110/60 11/19/24 10:29 Pulse Ox 97 11/19/24 10:29 Oxygen Delivery Method Room Air 11/19/24 10:29 BMI result Body Mass Index 35.7 Comfortable Neck supple no JVD. Lungs entry equal no rales. Heart S1-S2 heard no gallop or rub. Abdomen soft nontender. Neuro alert awake oriented. No asterixis. Extremities no edema. Results Reviewed Nephrology Results: Hgb 14.7 g/dl (14.0-18.0) 11/17/24 WBC 9.3 X10*3/uL (4.8-10.8) 11/17/24 Plt Count 272 X10*3/uL (160-400) 11/17/24 Sodium 137 mmol/L (135-145) 11/17/24 Potassium 3.8 mmol/L (3.3-5.1) 11/17/24 Chloride 102 mmol/L (96-108) 11/17/24 Carbon Dioxide 28 mmol/L (22-29) 11/17/24 BUN 19 mg/dL (9-16) H 11/17/24 Creatinine 1.09 mg/dL (0.5-1.4) 11/17/24 Calcium 9.9 mg/dL (8.4-10.2) 11/17/24 PTH Intact 83.7 pg/mL (8.7-77.1) H 09/21/24 Urine Protein 300 (3+) mg/dL (Neg-Trace) H 11/17/24 Assessment & Plan Assessment & Plan (1) CKD (chronic kidney disease): Code(s): N18.9 - Chronic kidney disease, unspecified Category: Medical Plan: Due to underlying diabetic hypertensive kidney disease. No evidence of active glomerulonephritis or obstructive uropathy. Patient's serum creatinine is less than 1.0. Goal is to slow the progression of renal disease. Continue to avoid nephrotoxic agents including NSAIDs. Continue to use SGLT 2 inhibitors for cardiorenal protection Unable to use Wai inhibitors due to history of angioedema Creatinine bumped up to 1.5 Probably form hypoperfusion post operative Creatinine has improved Down to 1.2 (2) HTN (hypertension): Comment: Stable Code(s): I10 - Essential (primary) hypertension Category: Medical Plan: Blood pressure has been acceptable Better than last visit Encouraged to stay complaint Continue current regimen. Low-salt diet (3) T2DM (type 2 diabetes mellitus): Code(s): E11.9 - Type 2 diabetes mellitus without complications Category: Medical Qualifiers: Diabetes mellitus complication status: with hyperglycemia Diabetes mellitus terminal make up operator insulin use: with terminal make up operator use Qualified Code(s): E11.65 - Type 2 diabetes mellitus with hyperglycemia; Z79.4 - continuous churn buttermaker (current) use of insulin Plan: Blood sugar sub optimal Recent A1C 9.2% Goal A1c less than 7% Follow with endocrinology Discussed weight As per family, he is not complaint with diet ! (4) Hypercalcemia: Code(s): E83.52 - Hypercalcemia Category: Medical Plan: Ca down to 9.7 No MCGP Plan Renal cyst and anterior bladder wall thickening Check UA and cytology -Reordered Follow up PRN Low back pain Needs to lose weight Follow up with PCP Orders: Orders Urine Cytology Today R31.9 - Hematuria, unspecified Coding Level of Care Code Est Pt Level 4 (62250) Diagnoses CKD (chronic kidney disease) N18.9 Hypertension, unspecified type I10 Type 2 diabetes mellitus with hyperglycemia, with long-term current use of in sulin E11.65; Z79.4 Diabetes mellitus complication status: with hyperglycemia Diabetes mellitus terminal make up operator insulin use: with terminal make up operator use Hypercalcemia E83.52
[2024-11-19 10:29] VITALS: BP 110/60; PULSE 75; O2SAT 97; BMI 35.7
--- OUTSIDE RECORDS SUMMARY | 2024-11-19 11:00 | XMS_ITS | Encounter Summary ---
Author Organization [employer] Address [address] [facility] [address] [place] [address] Care Team Providers Care Agricultural Aircraft Pilot Name Role Phone Name, Aneesh RIVERS Primary Care Provider [phone] Sandra Rasheed PharmD Unavailable [phone] Reason for Visit * Reason Comments Med Refill Encounter Details Date Type Department Care Team ([facility] st Contact Info) Description 01/12/2024 Refill [facility] CHC MED & PEDS [address] [place], [place] [phone] Name, MD Aneesh [address] [place] [address] Chronic low back pain, unspecified back pain [...] Description 11/26/2024 10:00 AM EDT Office Visit [facility] OPTOMETRY [address] [place] [address] Nathanael, Jayne, OD [address] [place] [address] 12/05/2024 9:30 AM EDT Medication Management [facility] MEDICINE [address] [place] [address] Sandra Rasheed, PharmD [address] [place] [address] 02/20/2025 9:30 AM EDT Office Visit [facility] MEDICINE [address] [place] [phone] Aneesh Oliveira MD [address] [place] [address] documented as of this encounter Visit Diagnoses Diagnosis Chronic low back pain, unspecified back pain laterality, unspecified whether sciatica present documented in this encounter Additional Health Concerns Assessment Noted Time PHQ-9 Depression Total Score: 4 08/23/19 24 9:44 AM EDT documented as of this encounter Care Teams Agricultural Aircraft Pilot Relationship Specialty Start Date End Date Aneesh Oliveira MD [address] [place] [id number] PCP - General Family Medicine 02/14/18 Sandra Rasheed, Javi [address] [place] [address] [place], [place] [phone] Pharmacist Internal Medicine 08/24/24 documented as of this encounter
== END 2024-11-19 10:39 | disposition home or self-care (01) ==
LOC: HO.HKA 10:02
PROVIDERS: PCP Internal Medicine Geriatric Medicine; Visit Provider Internal Medicine Hypertension Specialist
DX: I12.9 Hypertensive chronic kidney disease with stage 1 through stage 4 chronic kidney disease, or unspecified chronic kidney disease (principal); N18.9 Chronic kidney disease, unspecified; E11.65 Type 2 diabetes mellitus with hyperglycemia; Z79.4 Long term (current) use of insulin; E83.52 Hypercalcemia
CPT/HCPCS: 99214

== ENCOUNTER → 2024-11-19 10:01 | Outpatient (BNVA) | payer OTHER, SELFPAY | PROVIDERS: PCP Internal Medicine Geriatric Medicine; Visit Provider Internal Medicine Hypertension Specialist | DX: E11.22 Type 2 diabetes mellitus with diabetic chronic kidney disease (principal); I12.9 Hypertensive chronic kidney disease with stage 1 through stage 4 chronic kidney disease, or unspecified chronic kidney disease; N18.9 Chronic kidney disease, unspecified; E11.65 Type 2 diabetes mellitus with hyperglycemia; E83.52 Hypercalcemia; Z79.4 Long term (current) use of insulin | CPT/HCPCS: 99212 ==

== ENCOUNTER 2024-11-19 10:47 | Outpatient (REF) | payer OTHER, SELFPAY ==
[2024-11-19 13:08] LABS: Urine Cytology See Pathology rpt
[2024-11-19 13:46] LABS: Appearance Urine Clear; Color Urine Yellow; Glucose Urine UA >=1000 mg/dL (Negative); Leukocyte Esterase Urine Negative (Negative); Nitrite Urine Negative (Negative); PH 6.5 (5.0-9.0); UMIC TRIGGER UA YES; Urine Blood Negative (Negative); Urine Ketones Negative (Negative); Urine Protein 100 (2+) mg/dL (Neg-Trace)
[2024-11-19 13:50] LABS: Anion Gap 11 (12-20); Blood Urea Nitrogen 21 mg/dL (9-16); Calcium 9.8 mg/dL (8.4-10.2); Carbon Dioxide 27 mmol/L (22-29); Chloride 104 mmol/L (96-108); Estimated Glomerular Filt Rate > 60; Glucose Random 294 mg/dL (60-115); Potassium 4.1 mmol/L (3.3-5.1); Sodium 138 mmol/L (135-145)
[2024-11-19 13:52] LABS: Bacteria Urine None Seen (None Seen); Hyaline Casts Urine 0-2 /LPF (0-2); RBC Urine 0-2 /HPF (0-2); Squamous Epithelial Cell Urine 0-2 /HPF (0-2); WBC Urine 0-5 /HPF (0-5)
== END 2024-11-19 10:48 | disposition home or self-care (01) ==
LOC: HO.10HDL 10:47
PROVIDERS: Visit Provider Internal Medicine Hypertension Specialist
DX: N18.9 Chronic kidney disease, unspecified (principal); R31.9 Hematuria, unspecified
CPT/HCPCS: 36415; 80048; 81001; 88112

== ENCOUNTER 2024-11-22 09:08 | Outpatient (REF) | payer OTHER, SELFPAY ==
--- NOTE | ~2024-11-22 | US_ITS ---
EXAMINATION: Noninvasive assessment of the bilateral lower extremities with ARTERIAL DUPLEX, ANKLE BRACHIAL INDICES (ABIs), and PULSE VOLUME RECORDINGS (PVRs). CLINICAL INFORMATION: Peripheral vascular disease, unspecified. TECHNIQUE: Duplex Doppler techniques with waveform analysis and measurement of velocities in the bilateral common femoral, profunda femoris, superficial femoral, popliteal and tibial arteries were performed. Additionally, ankle pulse volume recordings, ankle pressure measurements and ankle brachial indices were obtained of the lower extremity arterial system bilaterally. The study was performed only at rest. COMPARISON: November 16, 2024. FINDINGS: DIRECT DUPLEX DOPPLER FINDINGS: RIGHT LEG: Common femoral artery: 153 cm/s, phasicity: Predominantly biphasic. Profunda femoris artery: 103 cm/s, phasicity: Biphasic. Superficial femoral artery (proximal): 139 cm/s, phasicity: Biphasic. Superficial femoral artery (mid): 141 cm/s, phasicity: Triphasic. Superficial femoral artery (distal): 239 cm/s, phasicity: Biphasic. Popliteal artery: 213 cm/s, phasicity: Biphasic Posterior tibial artery: 84 cm/s, phasicity: Monophasic. Peroneal artery: No color Doppler flow . Anterior tibial artery: 28 cm/s, phasicity: Monophasic. Dorsalis pedis artery: 25 cm/s, phasicity:Monophasic. LEFT LEG: Common femoral artery: 159 cm/s, phasicity: Biphasic. Profunda femoris artery: 133 cm/s, phasicity: Biphasic. Superficial femoral artery (proximal): 136 cm/s, phasicity: Triphasic. Superficial femoral artery (mid): 134 cm/s, phasicity: Triphasic. Superficial femoral artery (distal): 109 cm/s, phasicity: Biphasic. Popliteal artery: 133 cm/s, phasicity: Biphasic. Posterior tibial artery: 132 cm/s, phasicity: Monophasic. Peroneal artery: No color Doppler flow registered. Anterior tibial artery: 36 cm/s, phasicity: Monophasic. Dorsalis pedis artery: 27 cm/s, phasicity: Monophasic. BRACHIAL PRESSURES: Right: 201 Left: 182 ANKLE PRESSURES: Right: PT 202, DP 201 Left: PT 200, DP 200 ANKLE-BRACHIAL INDEX: Right: 1.0 Left: 1.0 ANKLE PVR WAVEFORMS: Right: Abnormal Left: Abnormal US/US arterial duplex BI w/ BELEN IMPRESSION: Right leg: Mild to moderate inflow disease from the profunda femoral artery to the posterior tibialis artery. Moderate to severe inflow disease, anterior tibialis and dorsalis pedis arteries. Left leg: Mild to moderate inflow disease from the common femoral artery to the popliteal artery. Severe inflow disease from the posterior tibialis to the dorsalis pedis artery. BELEN Reference: - >1.4 = calcified vessels - 0.9 - 1.4 = normal - no significant arterial disease - 0.7 - 0.89 = mild peripheral arterial disease - 0.51 - 0.69 = moderate peripheral arterial disease - d 0.50 = severe peripheral arterial disease - < .30 = critical arterial disease Electronically signed by: Cheo Galindo MD 11/22/2024 11:20 AM EDT
== END 2024-11-22 09:09 | disposition home or self-care (01) ==
LOC: HO.US 09:08
PROVIDERS: PCP Internal Medicine Geriatric Medicine; Visit Provider Surgery Vascular Surgery
DX: I70.211 Atherosclerosis of native arteries of extremities with intermittent claudication, right leg (principal); I70.212 Atherosclerosis of native arteries of extremities with intermittent claudication, left leg
CPT/HCPCS: 93922; 93925

== ENCOUNTER → 2024-11-22 09:10 | Outpatient (BNV) | payer OTHER, SELFPAY | PROVIDERS: PCP Internal Medicine Geriatric Medicine; Visit Provider Radiology Diagnostic Radiology | DX: I73.9 Peripheral vascular disease, unspecified (principal) | CPT/HCPCS: 93922; 93925 ==

== ENCOUNTER 2024-11-27 09:00 | Outpatient (REF) | payer OTHER, SELFPAY ==
[2024-11-27 09:52] LABS: Anion Gap 12 (12-20); Blood Urea Nitrogen 29 mg/dL (9-16); Calcium 9.9 mg/dL (8.4-10.2); Carbon Dioxide 29 mmol/L (22-29); Chloride 102 mmol/L (96-108); Estimated Glomerular Filt Rate > 60; Potassium 3.9 mmol/L (3.3-5.1); Sodium 139 mmol/L (135-145)
[2024-11-27 10:12] LABS: Appearance Urine Clear; Color Urine Yellow; Glucose Urine UA >=1000 mg/dL (Negative); Leukocyte Esterase Urine Negative (Negative); Nitrite Urine Negative (Negative); PH 5.5 (5.0-9.0); UMIC TRIGGER UA YES; Urine Blood Negative (Negative); Urine Ketones Negative (Negative); Urine Protein 300 (3+) mg/dL (Neg-Trace)
[2024-11-27 10:14] LABS: Bacteria Urine None Seen (None Seen); Hyaline Casts Urine 0-2 /LPF (0-2); RBC Urine 0-2 /HPF (0-2); Squamous Epithelial Cell Urine 0-2 /HPF (0-2); WBC Urine 0-5 /HPF (0-5)
== END 2024-11-27 09:01 | disposition home or self-care (01) ==
LOC: HO.LAB 09:00
PROVIDERS: Internal Medicine Hypertension Specialist; PCP Internal Medicine Geriatric Medicine; Referring Provider Internal Medicine; Visit Provider Physician Assistant
DX: N18.9 Chronic kidney disease, unspecified (principal)
CPT/HCPCS: 36415; 80051; 81001; 81003; 82310; 82565; 84520

== ENCOUNTER 2024-12-13 11:03 | Outpatient (AMB) | payer OTHER, SELFPAY ==
--- NOTE | 2024-12-13 11:06 | A.OFFVIS_ITS ---
Intake Visit Reasons: follow up s/p Arterial US 11/22/24 Intake Note: Patient presents for arterial US. Patient states he has bilateral leg pain but that the left leg is worse and that is is noticably red. Accompanied by: Self / Same As Patient Allergies lisinopril (LISINOPRIL) Allergy (Severe, Verified 12/13/24 11:08) ANGIOEDEMA prednisone (PREDNISONE) Allergy (Mild, Verified 12/13/24 11:08) ITCHY HPI HPI follow up s/p Arterial US 11/22/24: Details: Pleasant 74-year-old gentleman presents for routine follow-up regarding peripheral vascular disease. He had actually undergone left lower extremity endovascular intervention in February of 2024. He reported he did notice some improvement postprocedure but over the last month or so he has been having some difficulty walking in particular that left lower extremity. He does note some skin discoloration. In addition he had his left 2nd toe nail clipped and has had poor healing of that nail clipping site. Now presents for routine follow-up with noninvasive arterial testing. COUNTS INCLUDE 234 BEDS AT [facility] Medical History NAFLD (nonalcoholic fatty liver disease) Transaminitis Basal cell carcinoma (BCC) Skin lesion of left lower extremity Heart murmur Familial hypocalciuric hypercalcemia Multinodular thyroid Vitamin D deficiency HLD (hyperlipidemia) HTN (hypertension) T2DM (type 2 diabetes mellitus) Surgical History Hx of melanoma excision Hx of esophagogastroduodenoscopy Hx of colonoscopy Hx of appendectomy Hx of cholecystectomy Family History Father CVD (cardiovascular disease) Diabetes Brother CVD (cardiovascular disease) Diabetes FH: heart attack Social History Household Members: Family Housing: House Do you presently have visiting nurse or other home services: Yes (visiting nurse 2x week) Alcohol intake: never Patient Tobacco Use Status: Never used Tobacco service: No Current occupational status: unemployed Review of Systems Const All systems reviewed & are unremarkable except as noted in HPI and below Reports no additional complaints ENT Reports Normal hearing present Card Denies chest pain, Denies chest pain at rest, Denies chest pain with activity and Denies pedal edema Resp Denies cough GI Denies abdominal pain Musc Denies abnormal gait, Denies muscle cramps and Denies radiating pain into limb Skin/Breast Denies skin ulcer and Denies wounds Neuro Reports Normal hearing present and Denies abnormal gait Psych Reports no additional complaints Physical Exam Const General: cooperative, healthy appearing and comfortable Orientation/consciousness: oriented to person, oriented to place and oriented to time HEENT Head: Yes normal to inspection Neck Neck: Yes normal visual inspection Carotids: no bruits Chest Chest palpation & inspection: normal inspection of the chest Resp Effort & Inspection: normal respiratory effort and able to speak in complete sentences Auscultation: clear to auscultation bilaterally, no crackles, no rales, no rhonchi and no wheezes Cardio Other: Bilateral DP signals Rate: regular rate Rhythm: regular rhythm Heart sounds: S1 normal heart sound present and S2 normal heart sound present Bruits: no carotid bruits GI Inspection: Yes normal to inspection Skin Wounds: no wounds Hair: normal Neuro General: oriented to person, oriented to place and oriented to time Cranial nerves: Yes CN's II-XII intact bilaterally and Yes Normal hearing present Cognition (Neuro): normal cognition Motor exam (neuro): 5/5 motor strength present throughout Extrem Other: venous exam: No significant superficial varicosities or spider telangiectasias, minimal edema General: No clubbing, No cyanosis and No edema Psych Appearance: grossly normal Mental Status: mental status grossly normal Speech and movement: Normal speech and movement present Results Reviewed Results Reviewed: Noninvasive arterial testing dated 11/22/2024 demonstrates bilateral BELEN of 1.0. This is artifactually elevated due to his diabetes. On direct ultrasound he has monophasic flow from the popliteal on down. Assessment & Plan Assessment & Plan (1) PAD (peripheral artery disease): Comment: 03/07/2024 - left popliteal and peroneal artery plasty Code(s): I73.9 - Peripheral vascular disease, unspecified Category: Medical Plan: Patient notes nonhealing left 2nd toe ulcer. I have discussed the pathophysiology of peripheral vascular disease with the patient. I have also discussed risk factor modification. I have reviewed the patient's arterial testing which reveals left leg below-knee disease. the patient would benefit from a left leg endovascular peripheral angiogram with possible angioplasty, stent, and/or atherectomy. This has been discussed in detail with the patient along with risks, benefits, and complications. This includes but is not limited to bleeding, infection, heart attack, need for emergent surgical repair, limb ischemia, blood vessel damage, bleeding, puncture, kidney injury, bruising, allergic reaction, and skin reaction. The patient demonstrates a clear understanding. We will schedule for the next appropriate time. Thank you for allowing us to assist in this patient's care. Coding Level of Care Code Est Pt Level 4 (91919) Complex EM visit Add On G2211 Diagnoses PAD (peripheral artery disease) I73.9
--- OUTSIDE RECORDS SUMMARY | 2024-12-13 11:54 | XMS_ITS | Encounter Summary ---
Author Organization [employer] Address [address] [facility] 7t [place] [address] Care Team Providers Care Staff Certified Nurse Midwife Name Role Phone Name, Aneesh RIVERS Primary Care Provider [phone] Sandra Rasheed PharmD Unavailable [phone] Reason for Visit * Reason Comments Med Refill Encounter Details Date Type Department Care Team ([facility] st Contact Info) Description 01/12/2024 Refill [facility] [address] [place], [place] [phone] Name, MD Aneesh [address] [place] [address] Chronic low back pain, unspecified back pain [...] Care Team (Late st Contact Info) Description 12/26/2024 2:00 PM EDT Medication Management [facility] [address] [place] [phone] Sandra Rasheed PharmD [address] [place] [phone] 02/20/2025 9:30 AM EDT Office Visit [facility] [address] [place] [phone] Aneesh Oliveira MD [address] [place] [phone] 06/03/2025 9:30 AM EST Office Visit [facility] OPT[facility]ETRY [address] [place] [address] Nathanael, Jayne, OD [address] [place] [address] documented as of this encounter Visit Diagnoses Diagnosis Chronic low back pain, unspecified back pain laterality, unspecified whether sciatica present documented in this encounter Additional Health Concerns Assessment Noted Time PHQ-9 Depression Total Score: 4 08/23/19 24 9:44 AM EDT documented as of this encounter Care Teams Staff Certified Nurse Midwife Relationship Specialty Start Date End Date Aneesh Oliveira MD [address] [place] [phone] PCP - General Family Medicine 02/14/18 Sandra Rasheed, Javi [address] [place] [address] [phone] Pharmacist Internal Medicine 08/24/24 documented as of this encounter
--- OUTSIDE RECORDS SUMMARY | 2024-12-13 11:54 | XMS_ITS | Clinical Summary ---
Author Organization [facility] Address [address] [place] [phone] Phone Care Team Providers Care Organ Pipe Maker Metal Name Role Phone Name, Aneesh RIVERS Primary Care Provider [phone] Allergies Active Allergy Reactions Criticality Noted Date [...] 49 Years) Discontinued 02/17/2014, 03/15/2008, 04/14/2000 Insurance [facility] Dual [facility] [employer] Care Teams Organ Pipe Maker Metal Relationship Specialty Start Date End Date Name, MD Aneesh [address] [place] [address] [phone] PCP - General 06/23/20
--- OUTSIDE RECORDS SUMMARY | 2024-12-13 11:55 | XMS_ITS | Data Portability ---
Author Organization [place] [facility], Allergy Address [address] [facility] [address] [place] [phone] Care Team Providers Care Package Pick Up Name Role Phone NAME, LAURENT Primary Care [...] vocal quality. I recommended he see a roller hand, voice specalist, to evaluate him and see if he would be a good candidate for a more permanent medialization procedure. Patient is willing and interested to travel to [place] to hear options. - Referral to [facility] Otolaryngology - Dr. Stafford or Dr. Machuca for discussion [email or web address] Not available 05/04/2024 08:27:45 Plan of Treatment Reminders Order Date Submit Date Provider Last Modified By Organization Details Last Modified Time Details Appointments None recorded. Lab None recorded. Referral otolaryngol ogist referral - Attn: Birgit. Dr. Machuca or Dr. Stafford - bilateral vocal cord paralysis. 2023 024 2 [facility] Otolaryngolog y, [address] [facility], [facility], [place], [address], 4 10:41:11 Procedures None recorded. Surgeries None recorded. Imaging None recorded. Medication Orders None recorded. Patient TargetsNo targets recorded. Patient InstructionsNo instructions recorded. Reason for Referral Bench Loom Weaver Referral fo r Dysphonia Attn: Birgit. Dr. Machuca or Dr. Stafford - bilateral vocal cord paralysis. Referring Physician: Ryan Maya, Otolaryngology, Encounter Date: 05/03/2024 Problems Name Problem SNOMED Code Status Onset Date Resolution Date Notes Provider Name and Address Organization Details Recorded Time Paralysis of larynx 36683556 Active 2018 Paralysis of vocal cords and larynx, unspecifie d; Note: Date Diagnosed: 12/25/2018 2:49 PM (J38.00) Not Available [facility] 4 03:24:49 Dysphonia 71096659 Active 2018 Hoarseness ; Note: Date Diagnosed: 12/25/2018 2:49 PM (R49.0) Not Available [facility] 4 03:24:49 Simple goiter 711588260 Active 2018 Goiter NOS; Note: Date Diagnosed: 12/25/2018 2:49 PM (E04.9) Not Available [facility] 4 03:24:49 Paralysis of larynx 55196467 Active 2023 RYAN MAYA MD [address] [place] [address], [phone] , [facility] 4 08:24:41 Problem Notes None recorded. Procedures Surgical History Date Name Laterality Status Provider Name and Address Organization Details Recorded Time 05/03/20 24 Fiberoptic Laryngoscopy (Comprehensive) completed RYAN MAYA MD [address] [place] [address], [place], [phone], [facility] 05/04/2024 08:24:07 Imaging Results None recorded. [...] Updated DateTime 05/03/2024 167.64 cm 34.7 kg/m2 57798.36 g Kathie Ramírez [place] [facility] 05/03/2024 13:28:04 Social History None recorded. Functional Status None recorded. Mental Status None recorded. Family History Nothing Reported. Medical History No medical history recorded. Past Encounters Encounter ID Performer Location Encounter Start Date Encounter Closed Date Diagnosis/Indication Diagnosis SNOMED-CT Code Diagnosis ICD10 Code Diagnosis Note [id number] RYAN MAYA MD [facility] [address] [phone] 05/03/2024 13:04:26 05/03/2024 16:54:58 Paralysis of larynx 32492238 J38.02 Dysphonia 17751355 R49.9 Health Concerns Section Related Observation LastModified by Organization Detai ls LastModified Time None Recorded Concern Status LastModified by Organization Details LastModified Time None Recorded Advance Directives Directive None Recorded Payers Insurance Date Sequence Insurance Name Policy Number Policy Hood Covered Member ID Hood Member ID Guarantor Name 05/03/[address] [facility] (MEDICARE REPLACEMENT/ ADVANTAGE - HMO) Josue Mace [id number] Josue Mace 05/02/2024 2 [place] [facility] Josue Mace [id number] Josue Mace Notes Date Note Type Note Provider Name and Address Organization Details Recorded Time 05/03/2024 text/html 73yo gentleman rodrigo miguel presents today for evaluation of bilateral vocal cord paralysis and dysphonia. He has had difficulty with his voice for about 5 years. He underwent a traumatic intubation at [facility] in 2018 in the setting of an anaphylactic event. Following, this resulted in dysphonia and dyspnea with exertion. He was seen by otolaryngology in [place] - Dr. John Coppola. At that time, [...] aspirin 81 & clopidogrel. RYAN MAYA MD [address] [place] [address], [place], [phone], [facility] - [facility] 05/04/2024 20:31:01
== END 2024-12-13 11:23 | disposition home or self-care (01) ==
LOC: HO.HVS 11:04
PROVIDERS: PCP Internal Medicine Geriatric Medicine; Visit Provider Surgery Vascular Surgery
DX: I73.9 Peripheral vascular disease, unspecified (principal)
CPT/HCPCS: 99214; G2211

== ENCOUNTER → 2024-12-13 11:03 | Outpatient (BNVA) | payer OTHER, SELFPAY | PROVIDERS: PCP Internal Medicine Geriatric Medicine; Visit Provider Surgery Vascular Surgery | DX: K76.0 Fatty (change of) liver, not elsewhere classified (principal); E11.51 Type 2 diabetes mellitus with diabetic peripheral angiopathy without gangrene; E11.621 Type 2 diabetes mellitus with foot ulcer; L97.529 Non-pressure chronic ulcer of other part of left foot with unspecified severity; Z86.0100 Personal history of colon polyps, unspecified | CPT/HCPCS: 99212 ==

== ENCOUNTER 2024-12-13 11:43 | Outpatient (AMB) | payer OTHER, SELFPAY ==
--- NOTE | 2024-12-13 12:46 | MHC.OFFVIS ---
Vital Signs 12/13/24 12:49 Height 5 ft 6 in Weight 218 lb 4.122 oz BMI 35.2 BP 173/76 H Blood Pressure Location Lt brachial Position Sitting Pulse 73 Intake Visit Reasons: fatty liver f/u Intake Note: Josue presents in the office as a follow up for fatty liver. CC: States that he always has constipation and pains in the stomach. Denies any blood in the stools. Weaving Machine Operator Required: Yes Weaving Machine Operator Name: [id number] Rosario Allergies lisinopril (LISINOPRIL) Allergy (Severe, Verified 12/13/24 12:51) ANGIOEDEMA prednisone (PREDNISONE) Allergy (Mild, Verified 12/13/24 12:51) ITCHY HPI Comments Details: 73 y.o M with PMH of [facility] (last calcium in 05/2024 normal), T2DM, basal cell cancer, diverticulosis, who is here for follow up. Prev [facility] patient. Reports longstanding issues with constipation x years. Reports 3 BMs per week which are small and hard. Has to strain considerably with splinting and digitalization. Assoc with left sided pain and cramping which doesnt change with defecation. Diet: mainly toast, cheese, rice and beans. Limited salads/vegetables/fiber intake. Current meds: - lactulose - miralax Last colo 2022: BBPS 11/19. 12 mm cecal TA. Diverticulosis, hemorrhoids. Repeat recommended in 3 years. 09/05/24: Here for follow up. Seen with a assessment coordinator. Reports marked improvement in constipation and l sided pain. Interestingly only change from last time is addition of fiber. Otherwise didnt think miralax helped much and is back on lactulose. Never took senna. Pt also with fatty liver. CT abd/pel 08/2024 with steatosis. Done without contrast. BMI 34. Uncontrolled DM. Cholesterol better. Fib 4 1.51. Elastography 10/2024: Hepatomegaly and hepatic steatosis. The median shear wave velocity in the liver is 1.87 m/s, corresponding to a median liver stiffness of 10.60 kPa. The IQR/median value is 0.09. This is indicative of a quality data set. Findings are indicative of a high elastography value suggestive of compensated advanced chronic liver disease. 12/13/24: Here for follow up. Again pt had many questions re his liver despite a detailed discussion last time. Again reviewed this is NON-etOH steatosis. Pt continues with suboptimal glucose control. HbA1c was 9 last month. LDL is high - reports taking lipitor 40. Has gained 6 lbs since he was last seen in August. He also has not been able to engage in mod intensity exercise due to peripheral vascular disease and leg pain. COUNTS INCLUDE 234 BEDS AT [facility] Medical History NAFLD (nonalcoholic fatty liver disease) Transaminitis Basal cell carcinoma (BCC) Skin lesion of left lower extremity Heart murmur Familial hypocalciuric hypercalcemia Multinodular thyroid Vitamin D deficiency HLD (hyperlipidemia) HTN (hypertension) T2DM (type 2 diabetes mellitus) Surgical History Hx of melanoma excision Hx of esophagogastroduodenoscopy Hx of colonoscopy Hx of appendectomy Hx of cholecystectomy Family History Father CVD (cardiovascular disease) Diabetes Brother CVD (cardiovascular disease) Diabetes FH: heart attack Social History Household Members: Family Housing: House Do you presently have visiting nurse or other home services: Yes (visiting nurse 2x week) Alcohol intake: never Patient Tobacco Use Status: Never used Tobacco service: No Current occupational status: unemployed Review of Systems Const All systems reviewed & are unremarkable except as noted in HPI and below Physical Exam Vital Signs: Last Vital Signs Pulse 73 12/13/24 12:49 BP 173/76 H 12/13/24 12:49 BMI result Body Mass Index 35.2 No apparent distress Nonicteric Abdomen soft, nondistended Alert and oriented x3, normal gait, uses cane Assessment & Plan Assessment & Plan (1) NAFLD (nonalcoholic fatty liver disease): Code(s): K76.0 - Fatty (change of) liver, not elsewhere classified Category: Medical (2) History of colon polyps: Code(s): Z86.010 - Personal history of colon polyps Category: Medical Plan 1. MAFLD/MASH Fib 4 elevated 1.51. Elastography consistent with early fibrosis. Reviewed with the pt that this may progress unless underlying metabolic risk factors are optimized. Started on GLP-1 by PCP. He was also counseled re low impact exercises. Was advised to discuss cholesterol mgmt with PCP. Plan: - 10% TBW loss recommended over next 6 months - Improved DM control - agree with GLP-1. Target dose is 2.4 mg once weekly for ASHBY. - Consider increasing lipitor dose vs switching to crestor - US Abd in Apr (6 m from prior) - No evidence of cirrhosis or CSPH as of now 3. Hx of polyps Had 12 mm tubular adenoma in 2022. Repeat colo due in 2025. Follow up early 2025 Orders: Orders US abdomen complete 4 Months K76.0 - Fatty (change of) liver, not elsewhere classified Coding Level of Care Code Est Pt Level 4 (54955) Diagnoses NAFLD (nonalcoholic fatty liver disease) K76.0 History of colon polyps Z86.010
[2024-12-13 12:49] VITALS: BP 173/76; PULSE 73; BMI 35.2
== END 2024-12-13 13:24 | disposition home or self-care (01) ==
LOC: HO.HGI 11:44
PROVIDERS: PCP Internal Medicine Geriatric Medicine; Visit Provider Internal Medicine
DX: K76.0 Fatty (change of) liver, not elsewhere classified (principal); Z86.0100 Personal history of colon polyps, unspecified
CPT/HCPCS: 99214

== ENCOUNTER 2024-12-19 07:15 | Day surgery (SDC) | payer OTHER, SELFPAY ==
[2024-12-19] VITALS (22 sets, daily range): BP systolic 138–175; BP diastolic 62–80; PULSE 64–74; RESP 12–26; TEMP 36.6–37.1; O2SAT 94–99; BMI 35.2
[2024-12-19 07:50] LABS: MANUAL DIFF FLAG NO
[2024-12-19 08:00] LABS: Hematocrit 39.6 % (42.0-52.0); Hemoglobin 13.7 g/dl (14.0-18.0); Imm Gran Abs Auto 0.08 X10*3/uL (0.00-0.03); Imm Gran Pct Auto 0.9 % (0.0-0.4); Lymphocytes Absolute Auto 2.2 X10*3/uL (1.2-4.9); Mean Corpuscular HGB Conc 34.6 g/dl (31.0-36.0); Mean Corpuscular Hemoglobin 29.7 pg (27.0-33.0); Mean Corpuscular Volume 85.7 fL (80.0-98.0); NRBC Abs Auto 0.000 X10*3/uL (0.0-0.012); NRBC Pct Auto 0.0 /100WBC (0.0-0.2); Platelet Count 260 X10*3/uL (160-400); Red Blood Count 4.62 X10*6/uL (4.60-5.80); White Blood Count 8.8 X10*3/uL (4.8-10.8)
[2024-12-19 08:22] LABS: Blood Urea Nitrogen 17 mg/dL (9-16); Creatinine Clr Calc Pharmacy 75.9; Estimated Glomerular Filt Rate > 60
[2024-12-19] MEDS: Heparin Sodium,Porcine 10,000 UNIT/10 ML VIAL 8000 UNIT IVPUSH (09:53)
--- NOTE | 2024-12-19 10:43 | P.OP_ITS ---
Operative Note Operative Note Date of Service: 12/19/24 Narrative: Angiogram report from [facility] Preoperative diagnosis: Atherosclerosis of left lower extremity with nonhealing ulcer Postoperative diagnosis: Same Procedure: 1. Ultrasound-guided right common femoral access 2. Aortogram with left lower extremity runoff 3. Left anterior tibial plasty Surgeon:Rodney Smith M.D., FACS, RPVI Remote Control Assembler:None Anesthesia: Local with moderate conscious sedation. Total intraservice moderate sedation time was 56 minutes. I monitored the patient's level of consciousness and physiologic status continuously throughout the procedure. Specimens:none Drains:none Estimated blood loss: Less than 10 ml Radiation Dose: 539.6 mGy Implant: None Indications: 74-year-old diabetic gentleman with nonhealing foot ulcer presents for endovascular intervention. There was concern of below-knee disease on noninvasive testing The patient has signed the informed consent after reviewing risks, complications, benefits, and alternatives previously discussed with the patient. The patient was given the opportunity to ask any additional questions or voice any concerns. All questions were answered to the patient's satisfaction. Procedure in detail: Patient was brought to the angiography suite prior to which a time-out was called for patient identification and site verification. Bilateral groins were prepped and draped in the standard surgical fashion. Under ultrasound guidance right common femoral was punctured with micro puncture needle and wire. Subsequently a precision 5 Argentine sheath was then placed. Bentson wire was advanced to the level of the aorta. 5 Argentine Flush catheter was brought up and parked at the level of the renal arteries. Aortogram was then undertaken. Catheter was brought down to the level of the iliac bifurcation. Iliacs and runoff was performed through the flush catheter that was parked at the bifurcation and a power injection was performed to visualize bilateral runoff vessels. Subsequently the catheter was then brought in up and over to the left side SFA. We recognized that he did have below-knee disease. At this time 8000 units of systemic heparin was administered. Up and over 6 Argentine sheath was then placed. Glidewire advantage was brought down to the level of the knee. Once down below we then exchanged out for an 035 wire. And we brought a Navicross catheter. We were able to then subsequently get into the anterior tibial. Once in appropriate position we then advanced an 014 wire to cross the lesion at the bend of the anterior tibial. Once across we then plasty this entire area with a 2.5 x 40 balloon. Multiple insufflations were required. Once this was accomplished completion angiogram demonstrated good result. Catheter wire sheath was brought back to the ipsilateral side. Short 6 Argentine sheath was then placed. A 6 Argentine CELT closure device was placed. Patient tolerated the procedure well. Returned to recovery with stable vitals. Interpretation of films: 1. Ultrasound demonstrates appropriate femoral access site. Vessel was patent with minimal stenosis. Needle entry was visualized. Image of ultrasound was saved. 2. Aortogram demonstrates appropriate caliber aorta. Minimal disease. Appropriate take-off of the renals. 3. Iliac images demonstrate no significant disease 4. Left Leg Common femoral artery: No significant disease Profundus Femoris: No significant disease Superficial femoral artery: No significant disease Popliteal artery (p1,p2,p3): No significant disease Anterior tibial artery: Disease proximal 3rd occludes after the snf juancarlos but reconstitutes towards the ankle Peroneal artery: Present all the way to the level of the ankle Posterior tibial artery: Dominant runoff and supplies the foot and partially the arch Dorsalis pedis/plantar arch: Incomplete Conclusion: 1. Successful left anterior tibial plasty 2. Anticoagulation status: 6 months of aspirin and Plavix This note is constructed using voice recognition software. While every effort has been made to ensure accuracy, dental appliance repairer errors may have been included. Thank you for allowing me to participate in the care of your patient. Yours sincerely, Rodney Smith MD, FACS, R.P.V.I.
[2024-12-20 09:10] LABS: ACT 178 Celite s (79-173)
== END 2024-12-19 13:03 | disposition home or self-care (01) ==
PROVIDERS: PCP Internal Medicine Geriatric Medicine; Visit Provider Surgery Vascular Surgery
DX: E11.51 Type 2 diabetes mellitus with diabetic peripheral angiopathy without gangrene (principal); I70.245 Atherosclerosis of native arteries of left leg with ulceration of other part of foot; M79.662 Pain in left lower leg; Z85.820 Personal history of malignant melanoma of skin; R26.2 Difficulty in walking, not elsewhere classified; K76.0 Fatty (change of) liver, not elsewhere classified; I10 Essential (primary) hypertension; E78.5 Hyperlipidemia, unspecified; E55.9 Vitamin D deficiency, unspecified; Z85.828 Personal history of other malignant neoplasm of skin; Z79.4 Long term (current) use of insulin; Z79.84 Long term (current) use of oral hypoglycemic drugs; Z79.85 Long-term (current) use of injectable non-insulin antidiabetic drugs; Z88.8 Allergy status to other drugs, medicaments and biological substances; Z98.890 Other specified postprocedural states; Z90.49 Acquired absence of other specified parts of digestive tract; Z56.0 Unemployment, unspecified
CPT/HCPCS: 36415; 37228; 76937; 82565; 84520; 85025; 85347; 99152; 99153; C1725; C1769; C1887; C1894; J1644; J2250; J3010; Q9967

== ENCOUNTER → 2024-12-19 07:15 | Outpatient (BNV) | payer OTHER, SELFPAY | PROVIDERS: PCP Internal Medicine Geriatric Medicine; Visit Provider Surgery Vascular Surgery | DX: I70.249 Atherosclerosis of native arteries of left leg with ulceration of unspecified site (principal) | CPT/HCPCS: 37228; 75625; 75710; 76937; 99152 ==

== ENCOUNTER 2025-01-03 09:53 | Outpatient (AMB) | payer OTHER, SELFPAY ==
--- NOTE | 2025-01-03 09:58 | A.OFFVIS_ITS ---
Intake Visit Reasons: 2 week follow up L leg angio 12/19/24 Intake Note: 2 wk follow up Left LE Angio 12/19/24, pt states he has pain Mobile Security Architect Required: No Accompanied by: Self / Same As Patient Allergies lisinopril (LISINOPRIL) Allergy (Severe, Verified 01/03/25 10:01) ANGIOEDEMA prednisone (PREDNISONE) Allergy (Mild, Verified 01/03/25 10:01) ITCHY HPI HPI 2 week follow up L leg angio 12/19/24: Details: Very pleasant 74-year-old gentleman presents for 2 week follow-up status post left lower extremity endovascular intervention. Reports he is doing fairly well. Has occasional discomfort. Overall all wounds have gone on to heal. He does note some slight discoloration of his leg especially on the pretibial surface. Overall no postprocedure issues. [facility] Medical History NAFLD (nonalcoholic fatty liver disease) Transaminitis Basal cell carcinoma (BCC) Skin lesion of left lower extremity Heart murmur Familial hypocalciuric hypercalcemia Multinodular thyroid Vitamin D deficiency HLD (hyperlipidemia) HTN (hypertension) T2DM (type 2 diabetes mellitus) Surgical History Hx of melanoma excision Hx of esophagogastroduodenoscopy Hx of colonoscopy Hx of appendectomy Hx of cholecystectomy Family History Father CVD (cardiovascular disease) Diabetes Brother CVD (cardiovascular disease) Diabetes FH: heart attack Social History Household Members: Family Housing: House Do you presently have visiting nurse or other home services: Yes (visiting nurse 2x week) Alcohol intake: never Patient Tobacco Use Status: Never used Tobacco service: No Current occupational status: unemployed Review of Systems Const All systems reviewed & are unremarkable except as noted in HPI and below Reports no additional complaints ENT Reports Normal hearing present Card Denies chest pain, Denies chest pain at rest, Denies chest pain with activity and Denies pedal edema Resp Denies cough GI Denies abdominal pain Musc Denies abnormal gait, Denies muscle cramps and Denies radiating pain into limb Skin/Breast Denies skin ulcer and Denies wounds Neuro Reports Normal hearing present and Denies abnormal gait Psych Reports no additional complaints Physical Exam Const General: cooperative, healthy appearing and comfortable Orientation/consciousness: oriented to person, oriented to place and oriented to time HEENT Head: Yes normal to inspection Neck Neck: Yes normal visual inspection Carotids: no bruits Chest Chest palpation & inspection: normal inspection of the chest Resp Effort & Inspection: normal respiratory effort and able to speak in complete sentences Auscultation: clear to auscultation bilaterally, no crackles, no rales, no rhonchi and no wheezes Cardio Other: Bilateral DP signals Rate: regular rate Rhythm: regular rhythm Heart sounds: S1 normal heart sound present and S2 normal heart sound present Bruits: no carotid bruits GI Inspection: Yes normal to inspection Skin Wounds: no wounds Hair: normal Neuro General: oriented to person, oriented to place and oriented to time Cranial nerves: Yes CN's II-XII intact bilaterally and Yes Normal hearing present Cognition (Neuro): normal cognition Motor exam (neuro): 5/5 motor strength present throughout Extrem Other: venous exam: No significant superficial varicosities or spider telangiectasias, minimal edema General: No clubbing, No cyanosis and No edema Psych Appearance: grossly normal Mental Status: mental status grossly normal Speech and movement: Normal speech and movement present Assessment & Plan Assessment & Plan (1) PAD (peripheral artery disease): Comment: 03/07/2024 - left popliteal and peroneal artery plasty 12/13/2024 - left anterior tibial plasty Code(s): I73.9 - Peripheral vascular disease, unspecified Category: Medical Plan: In short patient has done well status post endovascular intervention of the left lower extremity.. I did review the pathophysiology of peripheral vascular disease with the patient. In addition we did discuss routine conservative measures including a healthy diet and the importance of exercise and ambulation. We did discuss risk factor modification. The patient will continue to to follow-up with surveillance follow-up in approximately 3 months. Thank you for allowing us to participate in this patient's care. If there are any questions or concerns please do not hesitate to contact us. Orders: Orders US arterial duplex LE BI 3 Months I73.9 - Peripheral vascular disease, unspecified Coding Level of Care Code Est Pt Level 4 (62763) Diagnoses PAD (peripheral artery disease) I73.9
--- OUTSIDE RECORDS SUMMARY | 2025-01-03 10:37 | XMS_ITS | Encounter Summary ---
Author Organization [employer] Address [address] [facility] 7t [place] [address] Care Team Providers Care Carbon Blocks Press Operator Name Role Phone Name, Aneesh RIVERS Primary Care Provider [phone] Sandra Rasheed PharmD Unavailable [phone] Reason for Visit * Reason Comments Med Refill Encounter Details Date Type Department Care Team ([facility] st Contact Info) Description 01/12/2024 Refill [facility] [address] [place], [place] [phone] Name, MD Aneesh [address] [place] [address] Chronic low back pain, unspecified back pain [...] Care Team (Late st Contact Info) Description 02/04/2025 10:00 AM EDT Medication Management [facility] [address] [place] [phone] Sandra Rasheed PharmD [address] [place] [phone] 02/20/2025 9:30 AM EDT Office Visit [facility] [address] [place] [phone] Aneesh Oliveira MD [address] [place] [phone] 06/03/2025 9:30 AM EST Office Visit [facility] [address] [place] [address] Nathanael, Jayne, OD [address] [place] [address] documented as of this encounter Visit Diagnoses Diagnosis Chronic low back pain, unspecified back pain laterality, unspecified whether sciatica present documented in this encounter Additional Health Concerns Assessment Noted Time PHQ-9 Depression Total Score: 4 08/23/19 24 9:44 AM EDT documented as of this encounter Care Teams Carbon Blocks Press Operator Relationship Specialty Start Date End Date Aneesh Oliveira MD [address] [place] [phone] PCP - General Family Medicine 02/14/18 Sandra Rasheed, Javi [address] [place] [address] [phone] Pharmacist Internal Medicine 08/24/24 documented as of this encounter
--- OUTSIDE RECORDS SUMMARY | 2025-01-03 10:37 | XMS_ITS | Clinical Summary ---
Author Organization [facility] Address [address] [place] [phone] Phone Care Team Providers Care Waiter Name Role Phone Name, Aneesh RIVERS Primary Care Provider [phone] Allergies Active Allergy Reactions Criticality Noted Date [...] A1C 01/07/2023 10/08/2022, 08/12 Influenza Vaccine (#1) 2025 8, 05/17/2016, 05/11/2012 Pneumococcal Vaccine: Peds ( 0 to 5 Years) and At-Risk Patients (6 to 49 Years) Discontinued 02/17/2014, 03/15/2008, 04/14/2000 Insurance [facility] Dual [employer] [facility] [employer] Care Teams Waiter Relationship Specialty Start Date End Date Name, MD Aneesh [address] [place] [phone] PCP - General 06/23/20
--- OUTSIDE RECORDS SUMMARY | 2025-01-03 10:37 | XMS_ITS | Data Portability ---
Author Organization [place] - [facility], Allergy Address [address] [facility] [address] [place] [address] Care Team Providers Care Aix Architect Name Role Phone NAME, LAURENT Primary Care Provider [phone] Assessment Encounter Date Assessment Date Assessment LastModified [...] vocal quality. I recommended he see a footwear factory worker, voice specalist, to evaluate him and see if he would be a good candidate for a more permanent medialization procedure. Patient is willing and interested to travel to [place] to hear options. - Referral to [facility] Otolaryngology - Dr. Stafford or Dr. Machuca for discussion [email or web address] Not available 05/04/2024 08:27:45 Plan of Treatment Reminders Order Date Submit Date Provider Last Modified By Organization Details Last Modified Time Details Appointments None recorded. Lab None recorded. Referral otolaryngol ogist referral - Attn: Birgit. Dr. Machuca or Dr. Stafford - bilateral vocal cord paralysis. 2023 024 [email or web address] [id number] [facility] Otolaryngolog y, [address] [facility], [facility], [place], [address], 4 10:41:11 Procedures None recorded. Surgeries None recorded. Imaging None recorded. Medication Orders None recorded. Patient TargetsNo targets recorded. Patient InstructionsNo instructions recorded. Reason for Referral Roll Or Tape Edge Machine Operator Referral fo r Dysphonia Attn: Birgit. Dr. Machuca or Dr. Stafford - bilateral vocal cord paralysis. Referring Physician: Ryan Maya, Otolaryngology, Encounter Date: 05/03/2024 Problems Name Problem SNOMED Code Status Onset Date Resolution Date Notes Provider Name and Address Organization Details Recorded Time Paralysis of larynx 73179491 Active 2018 Paralysis of vocal cords and larynx, unspecifie d; Note: Date Diagnosed: 12/25/2018 2:49 PM (J38.00) Not Available Replaced by [facility] 4 03:24:49 Dysphonia 28510385 Active 2018 Hoarseness ; Note: Date Diagnosed: 12/25/2018 2:49 PM (R49.0) Not Available Replaced by [facility] 4 03:24:49 Simple goiter 598137661 Active 2018 Goiter NOS; Note: Date Diagnosed: 12/25/2018 2:49 PM (E04.9) Not Available Replaced by [facility] 4 03:24:49 Paralysis of larynx 00933487 Active 2023 YRAN MAYA MD [address] [place] [address], [phone] , [facility] 4 08:24:41 Problem Notes None recorded. Procedures Surgical History Date Name Laterality Status Provider Name and Address Organization Details Recorded Time 05/03/20 24 Fiberoptic Laryngoscopy (Comprehensive) completed RYAN MAYA MD [address] [place] [address], [place], [phone], [facility] 05/04/2024 08:24:07 Imaging Results None recorded. Procedure [...] Updated DateTime 05/03/2024 167.64 cm 34.7 kg/m2 94839.36 g Kathie Ramírez [place] - [facility] 05/03/2024 13:28:04 Social History None recorded. Functional Status None recorded. Mental Status None recorded. Family History Nothing Reported. Medical History No medical history recorded. Past Encounters Encounter ID Performer Location Encounter Start Date Encounter Closed Date Diagnosis/Indication Diagnosis SNOMED-CT Code Diagnosis ICD10 Code Diagnosis Note [id number] RYAN MAYA MD [facility] [address] [phone] 05/03/2024 13:04:26 05/03/2024 16:54:58 Paralysis of larynx 02625459 J38.02 Dysphonia 14408829 R49.9 Health Concerns Section Related Observation LastModified by Organization Detai ls LastModified Time None Recorded Concern Status LastModified by Organization Details LastModified Time None Recorded Advance Directives Directive None Recorded Payers Insurance Date Sequence Insurance Name Policy Number Policy Hood Covered Member ID Hood Member ID Guarantor Name 05/03/2024 1 [facility] (MEDICARE REPLACEMENT/ ADVANTAGE - HMO) Josue Mace [id number] Josue Mace 05/02/2024 2 [place] [facility] Josue Mace [id number] Josue Mace Notes Date Note Type Note Provider Name and Address Organization Details Recorded Time 05/03/2024 text/html 73yo gentleman rodrigo miguel presents today for evaluation of bilateral vocal cord paralysis and dysphonia. He has had difficulty with his voice for about 5 years. He underwent a traumatic intubation at [facility] in 2018 in the setting of an anaphylactic event. Following, this resulted in dysphonia and dyspnea with exertion. He was seen by otolaryngology in [place] - Dr. John Coppola. At that time, [...] aspirin 81 & clopidogrel. RYAN MAYA MD [address] [place] [address], [place], [phone], [facility] - [facility] 05/04/2024 20:31:01
== END 2025-01-03 10:27 | disposition home or self-care (01) ==
LOC: HO.HVS 09:53
PROVIDERS: PCP Internal Medicine Geriatric Medicine; Visit Provider Surgery Vascular Surgery
DX: I73.9 Peripheral vascular disease, unspecified (principal)
CPT/HCPCS: 99214

== ENCOUNTER → 2025-01-03 09:53 | Outpatient (BNVA) | payer OTHER, SELFPAY | PROVIDERS: PCP Internal Medicine Geriatric Medicine; Visit Provider Surgery Vascular Surgery | DX: Z48.812 Encounter for surgical aftercare following surgery on the circulatory system (principal); I73.9 Peripheral vascular disease, unspecified; Z98.62 Peripheral vascular angioplasty status | CPT/HCPCS: 99212 ==

== ENCOUNTER 2025-01-16 09:04 | Outpatient (REF) | payer OTHER, SELFPAY ==
--- OUTSIDE RECORDS SUMMARY | 2025-01-16 09:22 | XMS_ITS | Clinical Summary ---
Author Organization [facility] Address [address] [place] [address] Phone Care Team Providers Care Deblocker Name Role Phone Name, Aneesh RIVERS Primary Care Provider Unavailabl e Allergies Active Allergy Reactions Criticality Noted Date [...] 49 Years) Discontinued 02/17/2014, 03/15/2008, 04/14/2000 Insurance [facility] [employer] [facility] [employer] Care Teams Deblocker Relationship Specialty Start Date End Date Name, MD Aneesh PCP - General 06/23/20
--- OUTSIDE RECORDS SUMMARY | 2025-01-16 09:22 | XMS_ITS | Encounter Summary ---
Author Organization [email or web address] Address [address] [facility] [address] [place] [address] Care Team Providers Care Timber Incisor Operator Name Role Phone Name, Aneesh RIVERS Primary Care Provider [phone] Sandra Rasheed PharmD Unavailable [phone] Reason for Visit * Reason Comments Med Refill Encounter Details Date Type Department Care Team ([facility] st Contact Info) Description 01/12/2024 Refill [facility] [address] [place], [place] [phone] Name, MD Aneesh [address] [place] [address] Chronic low back pain, unspecified back pain [...] Description 02/04/2025 10:00 AM EDT Medication Management [facility] [address] [place] [address] Sandra Rasheed PharmD [address] [place] [phone] 02/20/2025 9:30 AM EDT Office Visit [facility] [address] [place] [phone] Aneesh Oliveira MD [address] [place] [address] 06/03/2025 9:30 AM EST Office Visit [facility] [address] [place] [address] Nathanael, Jayne, OD [address] [place] [address] documented as of this encounter Visit Diagnoses Diagnosis Chronic low back pain, unspecified back pain laterality, unspecified whether sciatica present documented in this encounter Additional Health Concerns Assessment Noted Time PHQ-9 Depression Total Score: 4 08/23/19 24 9:44 AM EDT documented as of this encounter Care Teams Timber Incisor Operator Relationship Specialty Start Date End Date Aneesh Oliveira MD [address] [place] [address] PCP - General Family Medicine 02/14/18 Sandra Rasheed, Javi [address] [place] [address] [phone] Pharmacist Internal Medicine 08/24/24 documented as of this encounter
[2025-01-16 09:53] LABS: Appearance Urine Clear; Glucose Urine UA >=1000 mg/dL (Negative); PH 5.5 (5.0-9.0); Specific Gravity - Urine 1.020 (1.005-1.025); UMIC TRIGGER UA YES
[2025-01-16 10:35] LABS: Anion Gap 12 (12-20); Blood Urea Nitrogen 23 mg/dL (9-16); Calcium 10.0 mg/dL (8.4-10.2); Carbon Dioxide 29 mmol/L (22-29); Chloride 102 mmol/L (96-108); Estimated Glomerular Filt Rate > 60; Potassium 3.7 mmol/L (3.3-5.1); Sodium 139 mmol/L (135-145)
== END 2025-01-16 09:05 | disposition home or self-care (01) ==
LOC: HO.LAB 09:04
PROVIDERS: PCP Internal Medicine Geriatric Medicine; Visit Provider Internal Medicine Hypertension Specialist
DX: N18.9 Chronic kidney disease, unspecified (principal); R31.9 Hematuria, unspecified
CPT/HCPCS: 36415; 80048; 81001; 88112

== ENCOUNTER 2025-01-20 05:37 | Emergency (ER) | payer OTHER, SELFPAY ==
--- NOTE | ~2025-01-20 | CT_ITS ---
CLINICAL HISTORY: back pain and lower abd pain CT abdomen and pelvis with contrast Comparison: CT/REG/SR - CT ABDOMEN PELVIS WITHOUT IV CONTRAST - 08/22/24 08:51 EDT Findings: The heart is enlarged. Calcific atherosclerosis, including the coronary arteries. Lung bases are clear other than subsegmental atelectasis. Left worse than right gynecomastia. Cholecystectomy. Right renal 2.5 cm cyst. Other abdominal solid organs are unremarkable. Tiny fat containing umbilical hernia. No bowel obstruction. Appendectomy. Prostatomegaly. Unremarkable urinary bladder. Tiny fat containing left indirect inguinal hernia. Degenerative change of the spine and hips. IMPRESSION: No acute findings. Chronic and incidental findings as above. This document has been electronically signed by: Fan Langley DO on 01/20/2025 11:46:09
[2025-01-20 05:46] VITALS: BP 169/74; PULSE 73; RESP 16; TEMP 36.6; O2SAT 98; BMI 35.0
--- OUTSIDE RECORDS SUMMARY | 2025-01-20 06:28 | XMS_ITS | Clinical Summary ---
Author Organization [facility] Address [address] [place] [address] Phone Care Team Providers Care Spar Finisher Name Role Phone Name, Aneesh RIVERS Primary Care Provider [phone] Allergies Active Allergy Reactions Criticality Noted Date [...] 49 Years) Discontinued 02/17/2014, 03/15/2008, 04/14/2000 Insurance [facility] [employer] [facility] [employer] Care Teams Spar Finisher Relationship Specialty Start Date End Date Name, MD Aneesh [address] [place] [address] [phone] PCP - General 06/23/20
--- OUTSIDE RECORDS SUMMARY | 2025-01-20 06:28 | XMS_ITS | Encounter Summary ---
Author Organization [employer] Address [address] [facility] 7[address] [place] [address] Care Team Providers Care Mid Teacher Name Role Phone Name, Aneesh RIVERS Primary Care Provider [phone] Sandra Rasheed PharmD Unavailable [phone] Encounter Details Date Type Department Care Team (Late st Contact Info) Description 01/16/2025 Orders Only GENERIC EXTERNAL DATA DEPARTMENT Provider, [...] Description 02/04/2025 10:00 AM EDT Medication Management [facility] [address] [place] [address] Sandra Rasheed, PharmD [address] [place] [address] 02/20/2025 9:30 AM EDT Office Visit [facility] [address] [place] [address] Name, MD Aneesh [address] [place] [address] 06/03/2025 9:30 AM EST Office Visit [facility] [address] [place] [address] Nathanael, Jayne, OD [address] [place] [address] documented as of this encounter Procedures Procedure Name Priority Date/Time Associated Diagnosis Comments BASIC METABOLIC PANEL Routine 01/16/2025 9:22 AM EDT URINALYSIS, COMPLETE Routine 01/16/2025 9:19 AM EDT CYTOPATH-CELL ENHANCED Routine 01/16/2025 9:09 AM EDT documented in this encounter Results * (ABNORMAL) Basic Metabolic Panel (01/16/2025 9:22 AM EDT) Sodium 139 135 - 145 mmol/L [facility] Potassium 3.7 3.3 - 5.1 mmol/L [facility] Chloride 102 96 - 108 mmol/L [facility] Carbon Dioxide 29 22 - 29 mmol/L [facility] Anion Gap 12 12 - 20 [facility] Urea Nitrogen (BUN) 23(H) 9 - 16 mg/dL [facility] Creatinine, Serum 1.08 0.5 - 1.4 mg/dL [facility] Estimated Glomerular Filt Rate >60 [facility] Comment:Chronic Kidney Disea se: Estimated GFR < 60 mL/min/1.73f3Qkcqwk Kidney Disease: Estimated GFR < 15 mL/min/1.73m2 Glucose 170(H) 60 - 115 mg/dL [facility] Calcium 10.0 8.4 - 10.2 mg/dL [facility] 01/16/2025 9:22 AM EDT 01/16/2025 9:22 AM EDT us Generic External Data Provider LAB BLOOD ORDERAB LES Final Result [facility] [address] [place] [address] [phone] * (ABNORMAL) Urinalysis Complete (01/16/2025 9:19 AM EDT) Color Urine Yellow [facility] Appearance Urine Clear [facility] PH 5.5 5.0 - 9.0 [facility] Glucose Urine UA >=1000(A) Negative mg/dL [facility] Urine Blood Negative Negative [facility] Specific [place] - Urine 1.020 1.005 - 1.025 [facility] Urine Protein 300 (3+)(A) Neg-Trace mg/dL [facility] Urine Ketones Negative Negative mg/dL [facility] Nitrite Urine Negative Negative [facility] Leukocyte Esterase Urine Negative Negative [facility] RBC Urine 0-2 0 - 2 /HPF [facility] Urine WBC 0-5 0 - 5 /HPF [facility] Urine Squamous Epithelial Cell 0-2 0 - 2 /HPF [facility] Urine Bacteria None Seen None Seen [facility] Hyaline Casts, Urine 3-5 0 - 2 /LPF [facility] 01/16/2025 9:19 AM EDT 01/16/2025 9:48 AM EDT us Generic External Data Provider LAB URINE ORDERAB LES Final Result [facility] [address] [place] [phone] * Cytopath-cell enhanced (01/16/2025 9:09 AM EDT) 01/16/2025 9:09 AM EDT 01/17/2025 8:15 AM EDT Narrative [facility] - 01/17/2025 3:04 PM EDT ----- ------- Name: Josue Dawson Age/Sex: 74/M : 1950 Unit#: [id number] Attend Dr: Jd Painter MD Re01/16/25 Status: DEP REF Location: .LAB Disch: ----- ------- SPEC : [id number] RECD: 01/17/25 STATUS: ELLA MCKOY NUM: [id number] JUWAN: 01/16/[address] [facility] [address]: Jd Painter MD ENTERED: 01/17/25 SP TYPE: Cytology OTHR DR: Aneesh Oliveira MD ORDERED: Cyto-enhanced Diagnosis Urine: Negative for high-grade urothelial carcinoma. See comment. COMMENT: Paucicellular specimen consisting of single urothelial cells with degenerative changes, few squamous cells and abundant blood. Clinical History Hematuria, unspecified Chronic kidney disease, unspecified Material Received Urine Gross Description Received is 50 cc of clear yellow fluid from which a ThinPrep slide is prepared. IHC S/NG Disclaimer NOTE: Unless otherwise stated, all tissue is formalin-fixed and paraffin-embedded. Some or all of the immunohistochemical tests reported herein may have been developed and their performance characteristics determined by [facility]. They have not been cleared or approved by the U.S. Food and Drug Administration (FDA). However, the FDA has determined that such clearance or approval is not necessary. This laboratory is certified under the Clinical Laboratory Improvement Amendments of 1988 (CLIA) as qualified to perform high complexity clinical laboratory testing. Copies To: Jd Painter MD [facility] [place] [place] [facility] [address] [place] [address] [address] [place] [address] [email or web address] Name,Aneesh RIVERS [address] [place] [phone] CONTINUED ON NEXT PAGE ----- ------- Name: Josue Dawson Age/Sex: 74/M : 1950 Unit#: [id number] Attend Dr: Jd Painter MD Re01/16/25 Status: DEP REF Location: .LAB Disch: ----- ------- SPEC : [id number] RECD: 01/17/25 STATUS: ELLA MCKOY NUM: [id number] JUWAN: 01/16/[address] [facility] [address]: Jd Painter MD ENTERED: 01/17/25 SP TYPE: Cytology OTHR DR: Aneesh Oliveira MD ORDERED: Cyto-enhanced ----- ------- Signed (signature on file) Yevgeniy Avila MD 01/17/25 1504 ----- ------- END OF REPORT us Generic External Data Provider LAB CYTOLOGY ZENAIDA MAYER Final Result [facility] [address] [place] [phone] documented in this encounter Visit Diagnoses Not on filedocumented in this encounter Additional Health Concerns Assessment Noted Time PHQ-9 Depression Total Score: 4 08/23/19 24 9:44 AM EDT documented as of this encounter Care Teams Mid Teacher Relationship Specialty Start Date End Date Name, MD Aneesh [address] [place] [address] PCP - General Family Medicine 02/14/18 Sandra Rasheed, Javi [address] [place] [address] Pharmacist Internal Medicine 08/24/24 documented as of this encounter
[2025-01-20 06:39] LABS: MANUAL DIFF FLAG NO
[2025-01-20 07:01] LABS: Alanine Aminotransferase 57 U/L (0-40); Albumin Level 3.7 g/dL (3.5-5.0); Alkaline Phosphatase 61 U/L (39-117); Anion Gap 13 (12-20); Aspartate Amino Transferase 36 U/L (5-37); Blood Urea Nitrogen 20 mg/dL (9-16); Calcium 9.8 mg/dL (8.4-10.2); Carbon Dioxide 28 mmol/L (22-29); Chloride 101 mmol/L (96-108); Creatinine Clr Calc Pharmacy 65.2; Estimated Glomerular Filt Rate > 60; Potassium 3.9 mmol/L (3.3-5.1); Sodium 138 mmol/L (135-145); Total Protein 7.1 g/dL (6.5-8.0)
[2025-01-20 07:13] LABS: Hematocrit 41.8 % (42.0-52.0); Hemoglobin 14.2 g/dl (14.0-18.0); Imm Gran Abs Auto 0.04 X10*3/uL (0.00-0.03); Imm Gran Pct Auto 0.4 % (0.0-0.4); Lymphocytes Absolute Auto 2.4 X10*3/uL (1.2-4.9); Mean Corpuscular HGB Conc 34.0 g/dl (31.0-36.0); Mean Corpuscular Hemoglobin 29.7 pg (27.0-33.0); Mean Corpuscular Volume 87.4 fL (80.0-98.0); NRBC Abs Auto 0.000 X10*3/uL (0.0-0.012); NRBC Pct Auto 0.0 /100WBC (0.0-0.2); Platelet Count 265 X10*3/uL (160-400); Red Blood Count 4.78 X10*6/uL (4.60-5.80); White Blood Count 9.0 X10*3/uL (4.8-10.8)
--- NOTE | 2025-01-20 07:59 | PC.NURSE ---
patient a&ox3, endorses 10/10 lower back pain radiating to groin and down bilateral legs- more so left leg than right. pt walks with a cane at baseline, states he has not taken any otc medications to help with the pain recently, labs previously obtained, pt awaiting provider evaluation, call [facility] within reach, plan of care ongoingn
--- NOTE | 2025-01-20 08:51 | ED_ITS ---
HPI - General Adult General Chief complaint: Back Pain/Injury Stated complaint: Back Pain Time Seen by Provider: 01/20/25 08:06 Source: patient Mode of arrival: ambulatory Limitations: no limitations History of Present Illness ED Provider: MAZIN Clark HPI narrative: 74-year-old male history of CKD, diabetes, hypertension, nonalcoholic fatty liver disease, peripheral artery disease, basal cell carcinoma, heart murmur, hyperlipidemia presents to the emergency department with multiple complaints. Primary complaint is low back pain primarily on the left-hand side with radiation into his left lower extremity on the lateral aspect. Reports this has been going on for about a month worsening. No associated trauma. No saddle anesthesias, fevers, chills, numbness, tingling. Abdominal pain also reported on today's visit has been going on for the past few days he reports he has a doctor for his abdominal pain he is not sure what is going on with his abdomen he tells me however he has been having lower abdominal cramping worse on the left-hand side. Denies fevers, chills, changes in urinary or bowel habits, nausea, vomiting, headache, vision changes, chest pain and shortness of breath. Related Data Home Medications ?Medication ?Instructions ?Recorded ?Confirmed aspirin 81 mg tablet,delayed 81 mg PO DAILY 05/07/20 0 11/19/24 release blood sugar diagnostic #10 ea 05/07/20 09/25/24 chlorthalidone 50 mg tablet 50 mg PO QAM 05/07/2003/07 insulin syringe-needle U-100 1 mL #10 ea 05/07/2009/11 29 gauge x 1/2 lancets #100 ea 04/06/23 09/25/24 lancets 30 gauge (OneTouch #100 ea 04/06/23 09/25/24 UltraSoft 2 Lancet) spironolactone 25 mg tablet 25 mg PO QAM 04/06/2303/07 tamsulosin 0.4 mg capsule 0.8 mg PO BEDTIME 04/06/23 0 11/19/24 verapamil 120 mg tablet,extended 120 mg PO QAM 3 11/19/24 release amlodipine 10 mg tablet 10 mg PO QAM 11/10/23 canagliflozin 100 mg tablet 100 mg PO DAILY 06/11/24 0 11/19/24 (Invokana) gabapentin 100 mg capsule 200 mg PO BID 11/19/2411/19 semaglutide 1 mg/dose (4 mg/3 mL) mg subcut 11/19/24 0 11/19/24 subcutaneous pen injector (Ozempic) Previous Rx's ?Medication ?Instructions ?Recorded flash glucose scanning reader #1 ea 04/14/23 (FreeStyle Willy 2 [place]) flash glucose sensor (FreeStyle #2 ea 04/14/23 Willy 2 Sensor kit) metformin 1,000 mg tablet 1,000 mg PO BID #60 tabs 03/05 insulin glargine U-300 conc 300 80 unit (0.2667 mL) brewer bcut BEDTIME 05/24/23 unit/mL (3 mL) subcutaneous pen #6 mL (Toujeo Max U-300 SoloStar) pen needle, diabetic 32 gauge x #100 ea 07/18/23 (UltiCare Pen Needle) insulin lispro 100 unit/mL See Rx Instructions subcut 07/19/23 subcutaneous pen (Humalog KwikPen .COMPLEX #30 mL (U-100) Insulin) clopidogrel 75 mg tablet (Plavix) 75 mg PO DAILY #90 t abs 03/07/24 gabapentin 100 mg capsule 100 mg PO TID #30 caps 01/20 lidocaine 5 % topical patch 1 patch topical DAILY PRN pain #15 01/20/25 ea Allergies Allergy/AdvReac Type Severity Reaction Status Date / Time lisinopril (LISINOPRIL) Allergy Severe ANGIOEDEMA Verified 01/20/25 05:47 prednisone (PREDNISONE) Allergy Mild ITCHY Verified 01/20/25 05:47 Review of Systems 2 Review of Systems: Yes all other systems are reviewed and are negative [facility] Past Medical History Attestation statement: The following information was validated with the patient. Source: old records reviewed and nursing notes reviewed Medical History NAFLD (nonalcoholic fatty liver disease) Transaminitis Basal cell carcinoma (BCC) Skin lesion of left lower extremity Heart murmur Familial hypocalciuric hypercalcemia Multinodular thyroid Vitamin D deficiency HLD (hyperlipidemia) HTN (hypertension) T2DM (type 2 diabetes mellitus) Surgical History Hx of melanoma excision Hx of esophagogastroduodenoscopy Hx of colonoscopy Hx of appendectomy Hx of cholecystectomy Family History Family History Father CVD (cardiovascular disease) Diabetes Brother CVD (cardiovascular disease) Diabetes FH: heart attack Social History Social History Household Members: Family Housing: House Do you presently have visiting nurse or other home services: Yes (visiting nurse 2x week) Alcohol intake: never Patient Tobacco Use Status: Never used Tobacco Use of substances other than those prescribed or required for medical reasons: No Advance Directives: No Advance Directives Information Provided: Yes service: No Current occupational status: unemployed Physical Exam ED Exam Exam: Appearance: Alert.? Oriented X3.? No acute distress.? Head: Normocephalic, atraumatic, no step-offs or deformities Eyes: Pupils equal, round and reactive to light.? Neck: Normal inspection.? Neck supple.? CVS: Normal heart rate and rhythm.? Pulses normal.? Respiratory: No respiratory distress.? Breath sounds normal.? Abdomen: Soft and + tenderness to palpation to lower abdomen throughout..? Skin: Skin warm and dry.? Normal skin color.? Normal skin turgor.? Extremities: No lower extremity edema.? No calf ttp. 5/5 strength to bilateral upper and lower extremities Back: No midline tenderness, no C-spine tenderness, full range of motion, no CVA tenderness bilaterally + bilateral lumbar paraspinous muscle tenderness to palpation left greater than right. Neuro: Oriented X 3.? No motor deficit.? No sensory deficit. CN 2-12 intact . No saddle anesthesias Vital Signs: Vital Signs - 24 hr 01/20/25 05:46 01/20/25 09:44 01/20/25 11:23 Temperature 97.9 F 97.9 F Pulse Rate 73 70 66 Respiratory Rate 16 16 18 Blood Pressure 169/74 H 178/75 H 162/77 H Pulse Oximetry 98 96 100 Oxygen Delivery Method Room Air Room Air Room Air BMI result Body Mass Index 35.0 vss Course Reevaluation(s) Reevaluation #1: CBC unremarkable. ESR 16, CRP not elevated. Chemistry with no acute findings needing intervention. UA without infection. CT of the abdomen with no acute findings. Chronic and incidental findings noted however nothing new. I will increase patient's gabapentin dose to 100 mg t.i.d. will have him follow up with PCP. He is feeling better at this time. I suspect pain is lumbar radiculopathy. Patient appears much more comfortable. Educated patient on diagnosis and treatment plan, answered all question, patient verbalizes understanding. At this time patient will be discharged home, advised to return with new or worsening symptoms. Educated on worrisome signs and symptoms and when to return. At this time I feel comfortable discharge home. Time: 12:01 Medications Administered Discontinued Medications Generic Name Dose Route Start Last Admin Trade Name Alek PRN Reason Stop Dose Admin Iohexol 85 ml 01/20/25 10:31 01/20/25 10:31 Iohexol 350 Mg/Ml 100 Ml Infus..Btl IV 01/20/25 10:32 85 ml ONCE ONE Administration Morphine Sulfate 2 mg 01/20/25 09:18 01/20/25 09:42 Morphine Sulfate 2 Mg/Ml Cartridge IVPUSH 01/20/25 09:19 2 mg ONCE ONE Administration Protocol Medical Decision Making Medical Decision Making [facility] Narrative: [id number] 74-year-old male presents with multiple complaints, low back pain radiating into left lower extremity and diffuse lower abdominal pain. Physical exam with diffuse lower abdominal tenderness on palpation and lumbar paraspinous muscles with tenderness on palpation left greater than right. No saddle anesthesias. Ambulating with steady gait normal coordination with cane History and physical exam concerning for sciatica versus lumbar radiculopathy of likely L4. Unlikely cauda equina, cord compression. Abdominal pain likely gastroenteritis versus viral illness versus diverticulitis. No signs of acute abdomen, pancreatitis, cholecystitis, appendicitis. Will rule out kidney stones, UTI although unlikely. Plan labs, imaging, urine. Differential Diagnosis Differential Diagnoses: The differential diagnosis associated with the presentation includes (History and physical exam concerning for sciatica versus lumbar radiculopathy of likely L4. Unlikely cauda equina, cord compression. Abdominal pain likely gastroenteritis versus viral illness versus diverticulitis. No signs of acute abdomen, pancreatitis, cholecystitis, appendicitis. Will rule o) Admission/Observation Consideration of admission/observation: Escalation of care including admission/observation considered Lab Data [facility] Lab Attestation statement: I reviewed the patient's lab results. 01/20/25 06:34 01/20/25 06:34 Labs: Lab Results 01/20/25 01/20/25 Range/Units 06:34 11:26 WBC 9.0 (4.8-10.8) X10*3/uL RBC 4.78 (4.60-5.80) X10*6/uL Hgb 14.2 (14.0-18.0) g/dl Hct 41.8 L (42.0-52.0) % MCV 87.4 (80.0-98.0) fL MCH 29.7 (27.0-33.0) pg MCHC 34.0 (31.0-36.0) g/dl RDW 13.1 (11.0-16.0) % Plt Count 265 (160-400) X10*3/uL MPV 10.3 (9.4-12.4) fL Immature Gran % (Auto) 0.4 (0.0-0.4) % Neut % (Auto) 62.9 (45-73) % Lymph % (Auto) 26.9 (20-40) % Morgan % (Auto) 7.5 (2-11) % Eos % (Auto) 1.7 (0-4) % Baso % (Auto) 0.6 (0-2) % Lymph # (Auto) 2.4 (1.2-4.9) X10*3/uL Morgan # (Auto) 0.7 (0.1-1.2) X10*3/uL Eos # (Auto) 0.2 (0.0-0.4) X10*3/uL Baso # (Auto) 0.1 (0.0-0.2) X10*3/uL Abs Immat Gran (auto) 0.04 H (0.00-0.03) X10*3/uL Absolute Neuts (auto) 5.7 (2.0-8.3) x10*3/uL Absolute Nucleated RBC 0.000 (0.0-0.012) X10*3/uL Nucleated RBC % (auto) 0.0 (0.0-0.2) /100WBC ESR 16 H (0-15) MM/HR Sodium 138 (135-145) mmol/L Potassium 3.9 (3.3-5.1) mmol/L Chloride 101 (96-108) mmol/L Carbon Dioxide 28 (22-29) mmol/L Anion Gap 13 (12-20) BUN 20 H (9-16) mg/dL Creatinine 1.09 (0.5-1.4) mg/dL Estim Creat Clear Calc 65.2 Estimated GFR > 60 Random Glucose 265 H (60-115) mg/dL Calcium 9.8 (8.4-10.2) mg/dL Total Bilirubin 0.3 (0.0-1.0) mg/dL AST 36 (5-37) U/L ALT 57 H (0-40) U/L Alkaline Phosphatase 61 (39-117) U/L C-Reactive Protein 0.40 (< or = 0.50) mg/dL Total Protein 7.1 (6.5-8.0) g/dL Albumin 3.7 (3.5-5.0) g/dL Lipase 60 (8-78) U/L Urine Color Yellow Urine Appearance Clear Urine pH 7.0 (5.0-9.0) Ur Specific [place] 1.025 (1.005-1.025) Urine Protein 300 (3+) H (Neg-Trace) mg/dL Urine Glucose (UA) >=1000 H (Negative) mg/dL Urine Ketones Negative (Negative) mg/dL Urine Blood Negative (Negative) Urine Nitrite Negative (Negative) Ur Leukocyte Esterase Negative (Negative) Urine RBC 0-2 (0-2) /HPF Urine WBC 0-5 (0-5) /HPF Ur Squamous Epith Cells 0-2 (0-2) /HPF Urine Bacteria None Seen (None Seen) Hyaline Casts 0-2 (0-2) /LPF Independent Interpretation I performed an independent interpretation of an: CT Scan Radiology Impression Discussion of test interpretation with radiology: I have reviewed the radiologist's reading. External Record Review External record reviewed: Inpatient record, Office record, Outpatient record, Prior outpatient labs, Prior outpatient radiology, Primary care record and Outside ED record Chronic Conditions Patient?s care impacted by: Diabetes and Hypertension Critical Care Time Critical Care Time Critical Care Time: Yes Total Critical Care Time: 35 Attestation: I attest to this time spent taking care of the patient, obtaining history, physical, reviewing labs, imaging, treatment of patients condition +/- specialist/hospitalist consult +/- procedure Discharge Plan Discharge Clinical Impression: Sciatica, Abdominal pain Patient Disposition: Home, Self-Care Instructions: Abdominal Pain (ED), Back Pain (ED) Additional Instructions: Take your medications as prescribed. If you were prescribed antibiotics today, it is important that you take your medication to their entirety, do not skip any doses, do not finish them early. Follow-up with your primary care provider this week. Return to the emergency department with new or worsening symptoms. Such as fevers, chills, chest pain, shortness of breath, nausea, vomiting, dizziness, headache, vision changes, lethargy In case of emergency call 911 I increased her gabapentin dose to 100 mg 3 times a day. Please take this as prescribed. Please follow-up with your PCP. He might need to see a follow up specialist if pain persists. Prescriptions: New gabapentin 100 mg capsule 100 mg PO TID Qty: 30 0RF lidocaine 5 % adhesive patch,medicated 1 patch topical DAILY PRN (Reason: pain) Qty: 15 0RF Rx Instructions: leave on most painful area for up to 12 hrs No Action metformin 1,000 mg tablet 1,000 mg PO BID Qty: 60 3RF Toujeo Max U-300 SoloStar 300 unit/mL (3 mL) insulin pen 80 unit subcut BEDTIME Qty: 6 2RF (DME) pen needle, diabetic [UltiCare Pen Needle] 32 gauge x 5/32 needle See Rx Instructions .ROUTE .COMPLEX Qty: 100 11RF Dose Instruction: USE DIRECTED FOUR TIMES DAILY Rx Instructions: USE DIRECTED FOUR TIMES DAILY insulin lispro [Humalog KwikPen Insulin] 100 unit/mL insulin pen See Rx Instructions subcut .COMPLEX Qty: 30 3RF Rx Instructions: Inject 30 units before breakfast, 35 units before lunch and 35 units before dinner subcutaneously; clopidogrel [Plavix] 75 mg tablet 75 mg PO DAILY Qty: 90 1RF aspirin 81 mg tablet,delayed release (DR/EC) 81 mg PO DAILY (DME) insulin syringe-needle U-100 1 mL 29 gauge x 1/2 syringe See Rx Instructions .ROUTE QID Qty: 10 Rx Instructions: As directed chlorthalidone 50 mg tablet 50 mg PO QAM (DME) blood sugar diagnostic Strip See Rx Instructions Not Applicable TID Qty: 10 Rx Instructions: As directed gabapentin 100 mg capsule 200 mg PO BID (DME) FreeStyle Willy 2 Sensor Kit See Rx Instructions .Route Qty: 2 4RF Rx Instructions: As directed change every 14 days (DME) FreeStyle Willy 2 [place] Misc See Rx Instructions .Route Qty: 1 0RF Rx Instructions: As directed amlodipine 10 mg tablet 10 mg PO QAM Ozempic 1 mg/dose (4 mg/3 mL) pen injector subcut verapamil 120 mg tablet extended release 120 mg PO QAM spironolactone 25 mg tablet 25 mg PO QAM tamsulosin 0.4 mg capsule 0.8 mg PO BEDTIME (DME) lancets [OneTouch UltraSoft 2 Lancet] 30 gauge misc See Rx Instructions .ROUTE TID Qty: 100 Rx Instructions: As directed (DME) lancets Misc See Rx Instructions .ROUTE TID Qty: 100 Rx Instructions: As directed Invokana 100 mg tablet 100 mg PO DAILY Referrals: Name,MD Aneesh [Primary Care Provider, Internal Medicine] - 2 weeks Print Language: Kenyan
[2025-01-20 09:08] LABS: Lipase 60 U/L (8-78)
[2025-01-20 09:44] VITALS: BP 178/75; PULSE 70; RESP 16; O2SAT 96
[2025-01-20] MEDS: iohexoL 350 MG/ML 100 ML INFUS..BTL 85 ML IV (10:31)
[2025-01-20 11:23] VITALS: BP 162/77; PULSE 66; RESP 18; TEMP 36.6; O2SAT 100
[2025-01-20 11:50] LABS: Appearance Urine Clear; Glucose Urine UA >=1000 mg/dL (Negative); PH 7.0 (5.0-9.0); Specific Gravity - Urine 1.025 (1.005-1.025); UMIC TRIGGER UACC YES
[2025-01-20] MEDS: Lidocaine 4 % Patch ADH..PATCH 1 PATCH TRANSDERMA (12:08)
[2025-01-20 12:13] VITALS: BP 162/77; PULSE 66; RESP 18; TEMP 36.6; O2SAT 100
== END 2025-01-20 12:13 | disposition home or self-care (01) ==
PROVIDERS: Physician Assistant; Emergency Provider Emergency Medicine Emergency Medical Services; PCP Internal Medicine Geriatric Medicine
DX: M54.42 Lumbago with sciatica, left side (principal); M54.41 Lumbago with sciatica, right side; R10.2 Pelvic and perineal pain; E11.9 Type 2 diabetes mellitus without complications; Z79.899 Other long term (current) drug therapy; Z79.4 Long term (current) use of insulin
CPT/HCPCS: 36415; 74177; 80053; 81001; 83690; 85025; 85652; 86140; 96374; 99284; J2270; Q9967

== ENCOUNTER → 2025-01-20 08:56 | Outpatient (BNV) | payer OTHER, SELFPAY | PROVIDERS: Emergency Provider Emergency Medicine Emergency Medical Services; PCP Internal Medicine Geriatric Medicine; Visit Provider Radiology Diagnostic Radiology | DX: N28.1 Cyst of kidney, acquired (principal) | CPT/HCPCS: 74177 ==

== ENCOUNTER 2025-01-22 09:07 | Outpatient (AMB) | payer OTHER, SELFPAY ==
[2025-01-22 09:27] VITALS: BP 162/78; PULSE 76; O2SAT 97; BMI 34.5
--- NOTE | 2025-01-22 09:27 | HO.NEPHOV ---
Vital Signs 01/22/25 09:27 01/22/25 09:41 Height 5 ft 6 in Weight 214 lb BMI 34.5 BP 162/78 H 140/70 H Blood Pressure Location Rt brachial Rt brachial Position Sitting Sitting Pulse 76 Pulse Source Pulse Oximeter Pulse Oximetry (%) 97 Oxygen Delivery Method Room Air Intake Visit Reasons: FU/ LVM Change Coordinator Required: No Change Coordinator Services: Change Coordinator Offered & Declined (Daughter will translate) Accompanied by: Daughter Allergies lisinopril (LISINOPRIL) Allergy (Severe, Verified 01/22/25 09:29) ANGIOEDEMA prednisone (PREDNISONE) Allergy (Mild, Verified 01/22/25 09:29) ITCHY Medication List - Last Reconciled 01/22/25 by Jd Painter MD amlodipine 10 mg PO QAM aspirin 81 mg PO DAILY blood sugar diagnostic As directed canagliflozin (Invokana) 100 mg PO DAILY chlorthalidone 50 mg PO QAM clopidogrel (Plavix) 75 mg PO DAILY flash glucose scanning reader ([employer] Willy 2 [place]) As directed flash glucose sensor (FreeStyle Willy 2 Sensor kit) As directed change every 14 days gabapentin 100 mg PO TID gabapentin 200 mg PO BID hydralazine 25 mg PO TID insulin glargine U-300 conc (Toujeo Max U-300 SoloStar) 80 units (0.2667 mL) subcut BEDTIME insulin lispro (Humalog KwikPen (U-100) Insulin) Inject 30 units before breakfast, 35 units before lunch and 35 units before dinner subcutaneously; insulin syringe-needle U-100 As directed lancets (OneTouch UltraSoft 2 Lancet) As directed lancets As directed lidocaine 5% 1 patch topical DAILY PRN metformin 1,000 mg PO BID pen needle, diabetic (UltiCare Pen Needle) USE DIRECTED FOUR TIMES DAILY semaglutide (Ozempic) 2 mg subcut QWEEK spironolactone 25 mg PO QAM tamsulosin 0.8 mg PO BEDTIME verapamil ER 120 mg PO QAM HPI Comments Details: 72-year-old man with a history of longstanding hypertension and diabetes mellitus with CKD. He has had episodes of acute kidney injury an currently renal function is back to baseline. Baseline creatinine is less than 1.0. He has difficult to control blood sugars. Recent A1c was 8.2%. Blood pressure has been well controlled. He has microalbuminuria. He has not any WAI inhibitor due to angioedema requiring ICU admission. He is currently on Invokana History of nontoxic multinodular goiter. Change Coordinator service was used Cellulitis of left leg : s/p antibiotics 03/08/24 Doing better ;Seen by Dr. Smith s/p Successful plasty of left popliteal and peroneal artery on 03/07/24 04/23/24 c/o body pain;On statins 07/16/24 ;On ozempic- lost about 10 lbs Did not take anti hypertensives today 09/25/24 : Overall doing well. No urinary issues Recent CT showed incidental 2 cm cyst right kidney and anterior bladder wall thickening 11/19/24 74-year-old male presenting with persistent flank pain and diabetes control. Persistent flank pain, primarily on the left side, is reported by the patient. The pain generally arises with physical exertion or when bending and bothers him at night, though it somewhat subsides with Tylenol. Diagnosed with a stable simple renal cyst on previous imaging, this lesion has not changed since a CT scan in August. He also grapples with being overweight, recently gaining nearly 10 pounds. His diet is largely uncontrolled, leading to substantial meal consumption driven by profound hunger. The patient's diabetes management is suboptimal, as evidenced by a Hemoglobin A1c of 9.2. Routine kidney function tests indicate stable results, though recent urinalysis did not include the requested tests needed for comprehensive diabetes management. 01/22/25 c/o leg pain Underwent vascular procedure and feels better In ER for sciatica last week ;On pain patch BP was elevated Hydralazine was added yesterday [facility] Medical History NAFLD (nonalcoholic fatty liver disease) Transaminitis Basal cell carcinoma (BCC) Skin lesion of left lower extremity Heart murmur Familial hypocalciuric hypercalcemia Multinodular thyroid Vitamin D deficiency HLD (hyperlipidemia) HTN (hypertension) T2DM (type 2 diabetes mellitus) Surgical History Hx of melanoma excision Hx of esophagogastroduodenoscopy Hx of colonoscopy Hx of appendectomy Hx of cholecystectomy Family History Father CVD (cardiovascular disease) Diabetes Brother CVD (cardiovascular disease) Diabetes FH: heart attack Social History Household Members: Family Housing: House Do you presently have visiting nurse or other home services: Yes (visiting nurse 2x week) Alcohol intake: never Patient Tobacco Use Status: Never used Tobacco service: No Current occupational status: unemployed Physical Exam Vital Signs: Last Vital Signs Pulse 76 01/22/25 09:27 BP 162/78 H 01/22/25 09:27 Pulse Ox 97 01/22/25 09:27 Oxygen Delivery Method Room Air 01/22/25 09:27 BMI result Body Mass Index 34.5 Comfortable Neck supple no JVD. Lungs entry equal no rales. Heart S1-S2 heard no gallop or rub. Abdomen soft nontender. Neuro alert awake oriented. No asterixis. Extremities no edema. Results Reviewed Nephrology Results: Hgb, (14.0-18.0) 14.2 g/dl 01/20/25 WBC, (4.8-10.8) 9.0 X10*3/uL 01/20/25 Plt Count, (160-400) 265 X10*3/uL 01/20/25 Sodium, (135-145) 138 mmol/L 01/20/25 Potassium, (3.3-5.1) 3.9 mmol/L 01/20/25 Chloride, (96-108) 101 mmol/L 01/20/25 Carbon Dioxide, (22-29) 28 mmol/L 01/20/25 BUN, (9-16) 20 mg/dL H 01/20/25 Creatinine, (0.5-1.4) 1.09 mg/dL 01/20/25 Calcium, (8.4-10.2) 9.8 mg/dL 01/20/25 Urine Protein, (Neg-Trace) 300 (3+) mg/dL H 01/20/25 Assessment & Plan Assessment & Plan (1) CKD (chronic kidney disease): Code(s): N18.9 - Chronic kidney disease, unspecified Category: Medical Plan: Due to underlying diabetic hypertensive kidney disease. No evidence of active glomerulonephritis or obstructive uropathy. Patient's serum creatinine is less than 1.0. Goal is to slow the progression of renal disease. Continue to avoid nephrotoxic agents including NSAIDs. Continue to use SGLT 2 inhibitors for cardiorenal protection Unable to use Wai inhibitors due to history of angioedema Creatinine bumped up to 1.5 Probably form hypoperfusion post operative Creatinine has improved Down to 1.0 (2) HTN (hypertension): Comment: Stable Code(s): I10 - Essential (primary) hypertension Category: Medical Plan: Blood pressure has been acceptable Better than last visit Encouraged to stay complaint Continue current regimen. Low-salt diet Agree with Hydralalzine Can titrate dose as needed. (3) T2DM (type 2 diabetes mellitus): Code(s): E11.9 - Type 2 diabetes mellitus without complications Category: Medical Qualifiers: Diabetes mellitus [facility] insulin use: with exterminator termite use Diabetes mellitus complication status: with hyperglycemia Qualified Code(s): E11.65 - Type 2 diabetes mellitus with hyperglycemia; Z79.4 - care home (current) use of insulin Plan: Blood sugar sub optimal Recent A1C 9.2% Goal A1c less than 7% Follow with endocrinology Discussed weight As per family, he is not complaint with diet ! (4) Hypercalcemia: Code(s): E83.52 - Hypercalcemia Category: Medical Plan: Ca down to 9.7 No MCGP Plan Renal cyst and anterior bladder wall thickening Check UA and cytology -No malignant cells Follow up PRN Low back pain Continue to lose weight ( lost 7 lbs in 2 months -november ot Feb 04) Follow up with PCP Coding Level of Care Code Est Pt Level 4 (49360) Diagnoses CKD (chronic kidney disease) N18.9 Hypertension, unspecified type I10 Type 2 diabetes mellitus with hyperglycemia, with long-term current use of insulin E11.65; Z79.4 Diabetes mellitus [facility] insulin use: with [facility] use Diabetes mellitus complication status: with hyperglycemia Hypercalcemia E83.52
--- OUTSIDE RECORDS SUMMARY | 2025-01-22 09:40 | XMS_ITS | Encounter Summary ---
Author Organization [employer] Address [address] [facility] [address] [place] [address] Care Team Providers Care Joint Finisher Name Role Phone Name, Aneesh RIVERS Primary Care Provider [phone] Sandra Rasheed PharmD Unavailable [phone] Reason for Visit * Reason Comments Med Refill Encounter Details Date Type Department Care Team ([facility] st Contact Info) Description 01/12/2024 Refill [facility] [address] [place], [place] [phone] Name, MD Aneesh [address] [place] [address] Chronic low back pain, unspecified back pain [...] Description 02/04/2025 10:00 AM EDT Medication Management [facility] MED[facility] [address] [place] [phone] Sandra Rasheed PharmD [address] [place] [phone] 02/20/2025 9:30 AM EDT Office Visit [facility] [address] [place] [phone] Aneesh Oliveira MD [address] [place] [phone] 06/03/2025 9:30 AM EST Office Visit [facility] OPTOM[facility]RY [address] [place] [address] Nathanael, Jayne, OD [address] [place] [address] documented as of this encounter Visit Diagnoses Diagnosis Chronic low back pain, unspecified back pain laterality, unspecified whether sciatica present documented in this encounter Additional Health Concerns Assessment Noted Time PHQ-9 Depression Total Score: 4 08/23/19 24 9:44 AM EDT documented as of this encounter Care Teams Joint Finisher Relationship Specialty Start Date End Date Aneesh Oliveira MD [address] [place] [phone] PCP - General Family Medicine 02/14/18 Sandra Rasheed, Javi [address] [place] [address] [phone] Pharmacist Internal Medicine 08/24/24 documented as of this encounter
--- OUTSIDE RECORDS SUMMARY | 2025-01-22 09:40 | XMS_ITS | Clinical Summary ---
Author Organization [facility] Address [address] [place] [phone] Phone Care Team Providers Care Accountant Clerk Name Role Phone Name, Aneesh RIVERS Primary Care Provider [phone] Allergies Active Allergy Reactions Criticality Noted Date [...] 49 Years) Discontinued 02/17/2014, 03/15/2008, 04/14/2000 Insurance [facility] Dual Con[facility]rt [facility] [employer] Care Teams Accountant Clerk Relationship Specialty Start Date End Date Name, MD Aneesh [address] [place] [address] [phone] PCP - General 06/23/20
[2025-01-22 09:41] VITALS: BP 140/70
== END 2025-01-22 09:47 | disposition home or self-care (01) ==
LOC: HO.HKA 09:07
PROVIDERS: PCP Internal Medicine Geriatric Medicine; Visit Provider Internal Medicine Hypertension Specialist
DX: I12.9 Hypertensive chronic kidney disease with stage 1 through stage 4 chronic kidney disease, or unspecified chronic kidney disease (principal); N18.9 Chronic kidney disease, unspecified; E11.65 Type 2 diabetes mellitus with hyperglycemia; Z79.4 Long term (current) use of insulin; E83.52 Hypercalcemia
CPT/HCPCS: 99214

== ENCOUNTER → 2025-01-22 09:07 | Outpatient (BNVA) | payer OTHER, SELFPAY | PROVIDERS: PCP Internal Medicine Geriatric Medicine; Visit Provider Internal Medicine Hypertension Specialist | DX: I12.9 Hypertensive chronic kidney disease with stage 1 through stage 4 chronic kidney disease, or unspecified chronic kidney disease (principal); E11.65 Type 2 diabetes mellitus with hyperglycemia; N18.9 Chronic kidney disease, unspecified; E83.52 Hypercalcemia; Z79.4 Long term (current) use of insulin | CPT/HCPCS: 99212 ==

== ENCOUNTER 2025-04-03 08:27 | Emergency (ER) | payer OTHER, SELFPAY ==
--- NOTE | 2025-04-03 | ECG_ITS ---
Test Reason : cp Blood Pressure : */* mmHG Vent. Rate : 74 BPM Atrial Rate : 74 BPM P-R Int : 210 ms QRS Dur : 76 ms QT Int : 372 ms P-R-T Axes : 43 6 81 degrees QTcB Int : 412 ms Sinus rhythm with 1st degree A-V block Otherwise normal ECG When compared with ECG of 22-Aug-2024 09:01, No significant change was found Referred By: Generic ED Physician Electronically Signed By: JOHN BRANNON MD
--- NOTE | ~2025-04-03 | XR_ITS ---
EXAMINATION: XR CHEST 2 VIEWS HISTORY: SOB/ cough COMPARISON: Comparison is made with the prior examination dated 08/22/2024. FINDINGS: PA and lateral views of the chest are submitted. The lungs are expanded and clear. There is no pleural effusion, pneumothorax, or pulmonary vascular congestion. The heart is normal in size. There is degenerative disc disease of the spine. XR/XR chest 2V IMPRESSION: No acute cardiopulmonary abnormality. Electronically signed by: Berlin Willoughby MD 04/03/2025 09:08 AM EDT
[2025-04-03 08:36] VITALS: BP 186/74; PULSE 81; RESP 20; TEMP 36.7; O2SAT 96; BMI 32.9
[2025-04-03 09:01] LABS: MANUAL DIFF FLAG NO
[2025-04-03 09:13] LABS: Hematocrit 44.0 % (42.0-52.0); Hemoglobin 14.9 g/dl (14.0-18.0); Imm Gran Abs Auto 0.09 X10*3/uL (0.00-0.03); Imm Gran Pct Auto 0.9 % (0.0-0.4); Lymphocytes Absolute Auto 2.4 X10*3/uL (1.2-4.9); Mean Corpuscular HGB Conc 33.9 g/dl (31.0-36.0); Mean Corpuscular Hemoglobin 29.7 pg (27.0-33.0); Mean Corpuscular Volume 87.8 fL (80.0-98.0); NRBC Abs Auto 0.000 X10*3/uL (0.0-0.012); NRBC Pct Auto 0.0 /100WBC (0.0-0.2); Platelet Count 312 X10*3/uL (160-400); Red Blood Count 5.01 X10*6/uL (4.60-5.80); White Blood Count 9.7 X10*3/uL (4.8-10.8)
[2025-04-03 09:17] LABS: Alanine Aminotransferase 74 U/L (0-40); Albumin Level 3.9 g/dL (3.5-5.0); Alkaline Phosphatase 63 U/L (39-117); Anion Gap 11 (12-20); Aspartate Amino Transferase 55 U/L (5-37); Blood Urea Nitrogen 21 mg/dL (9-16); Calcium 9.8 mg/dL (8.4-10.2); Carbon Dioxide 27 mmol/L (22-29); Chloride 103 mmol/L (96-108); Creatinine Clr Calc Pharmacy 62.4; Estimated Glomerular Filt Rate > 60; Potassium 4.3 mmol/L (3.3-5.1); Sodium 137 mmol/L (135-145); Total Protein 7.5 g/dL (6.5-8.0)
[2025-04-03 09:25] LABS: COVID-19 Test Negative (Negative); IDNOW Serial# 55D5AD1C; IDNOW Serial# 6674DD1D; Influenza B2 Negative (Negative)
[2025-04-03 11:39] VITALS: BP 182/70; PULSE 74; RESP 18; TEMP 36.9; O2SAT 97
--- NOTE | 2025-04-03 11:46 | ED_ITS ---
HPI - General Adult General Chief complaint: Upper Respiratory Symptoms Stated complaint: cold symptoms Time Seen by Provider: 04/03/25 11:44 Source: patient and agricultural loan officer (all interactions with this patient were facilitated with an [facility] internet security specialist (Lien)) Mode of arrival: ambulatory Limitations: language barrier (all interactions with this patient were facilitated with an [facility] internet security specialist (Lien)) History of Present Illness ED Provider: Mildred Corey PA-C HPI narrative: Patient is a 74 year old assigned male at with a history of CKD, NAFLD, PAD, BCC, HLD, HTN, and DM presenting to the emergency department today with a cough and nasal congestion. Patient states that he has had a cough for 3 weeks with white phlegm and nasal congestion. Patient states that he was seen previously but has not been started on any medications. Patient denies any other complaints at this time. Related Data Home Medications ?Medication ?Instructions ?Recorded ?Confirmed aspirin 81 mg tablet,delayed 81 mg PO DAILY 05/07/20 0 01/22/25 release blood sugar diagnostic #10 ea 05/07/20 01/22/25 chlorthalidone 50 mg tablet 50 mg PO QAM 05/07/2001/11 insulin syringe-needle U-100 1 mL #10 ea 05/07/2001/11 29 gauge x 1 lancets #100 ea 04/06/23 01/22/25 lancets 30 gauge (OneTouch #100 ea 04/06/23 01/22/25 UltraSoft 2 Lancet) spironolactone 25 mg tablet 25 mg PO QAM 04/06/2301/11 tamsulosin 0.4 mg capsule 0.8 mg PO BEDTIME 04/06/23 0 01/22/25 verapamil 120 mg tablet,extended 120 mg PO QAM 3 01/22/25 release amlodipine 10 mg tablet 10 mg PO QAM 11/10/23 canagliflozin 100 mg tablet 100 mg PO DAILY 06/11/24 0 01/22/25 (Invokana) gabapentin 100 mg capsule 200 mg PO BID 11/19/2401/22 hydralazine 25 mg tablet 25 mg PO TID 01/22/25 semaglutide 2 mg/dose (8 mg/3 mL) 2 mg subcut QWEEK 01/22/25 subcutaneous pen injector (Ozempic) Previous Rx's ?Medication ?Instructions ?Recorded flash glucose scanning reader #1 ea 04/14/23 (FreeStyle Willy 2 [place]) flash glucose sensor (FreeStyle #2 ea 04/14/23 Willy 2 Sensor kit) metformin 1,000 mg tablet 1,000 mg PO BID #60 tabs 03/05 insulin glargine U-300 conc 300 80 unit (0.2667 mL) durand bcut BEDTIME 05/24/23 unit/mL (3 mL) subcutaneous pen #6 mL (Toujeo Max U-300 SoloStar) pen needle, diabetic 32 gauge x #100 ea 07/18/23 (UltiCare Pen Needle) insulin lispro 100 unit/mL See Rx Instructions subcut 07/19/23 subcutaneous pen (Humalog KwikPen .COMPLEX #30 mL (U-100) Insulin) clopidogrel 75 mg tablet (Plavix) 75 mg PO DAILY #90 t abs 03/07/24 gabapentin 100 mg capsule 100 mg PO TID #30 caps 01/20 lidocaine 5 % topical patch 1 patch topical DAILY PRN pain #15 01/20/25 ea amoxicillin 875 mg-potassium 1 tab PO BID 7 days #14 t abs 04/03/25 clavulanate 125 mg tablet doxycycline hyclate 100 mg tablet 100 mg PO BID 7 days #14 tabs 04/03/25 Allergies Allergy/AdvReac Type Severity Reaction Status Date / Time lisinopril (LISINOPRIL) Allergy Severe ANGIOEDEMA Verified 04/03/25 08:40 prednisone (PREDNISONE) Allergy Mild ITCHY Verified 04/03/25 08:40 Review of Systems 2 Constitutional: Constitutional: Reports as per HPI Eyes: Eyes: Reports as per HPI ENT: Reports as per HPI Cardiovascular: Cardiovascular: Reports as per HPI Respiratory: Respiratory: Reports as per HPI Gastrointestinal: Gastrointestinal: Reports as per HPI Genitourinary: Genitourinary: Reports as per HPI Musculoskeletal: Musculoskeletal: Reports as per HPI Integumentary/Breasts: Skin/Breast: Reports as per HPI Neurologic: Reports as per HPI Psychiatric: Psychiatric: Reports as per HPI Endocrine: Endocrine: Reports as per HPI Hematologic/Lymphatic: Hematologic/Lymphatic: Reports as per HPI Allergic/Immunologic: Allergic/Immunologic: Reports as per HPI [facility] Past Medical History Attestation statement: The following information was validated with the patient. Source: old records reviewed and nursing notes reviewed Medical History NAFLD (nonalcoholic fatty liver disease) Transaminitis Basal cell carcinoma (BCC) Skin lesion of left lower extremity Heart murmur Familial hypocalciuric hypercalcemia Multinodular thyroid Vitamin D deficiency HLD (hyperlipidemia) HTN (hypertension) T2DM (type 2 diabetes mellitus) Surgical History Hx of melanoma excision Hx of esophagogastroduodenoscopy Hx of colonoscopy Hx of appendectomy Hx of cholecystectomy Family History Family History Father CVD (cardiovascular disease) Diabetes Brother CVD (cardiovascular disease) Diabetes FH: heart attack Social History Social History Household Members: Family Housing: House Do you presently have visiting nurse or other home services: Yes (visiting nurse 2x week) Alcohol intake: never Patient Tobacco Use Status: Never used Tobacco Advance Directives: No Advance Directives Information Provided: Yes service: No Current occupational status: unemployed Physical Exam ED Vital Signs: Vital Signs - 24 hr 04/03/25 08:36 04/03/25 11:39 04/03/25 12:01 Temperature 98.1 F 98.5 F 98.5 F Pulse Rate 81 74 74 Respiratory Rate 20 18 18 Blood Pressure 186/74 H 182/70 H 182/70 H Pulse Oximetry 96 97 97 Oxygen Delivery Method Room Air Room Air Room Air BMI result Body Mass Index 32.9 Const General: cooperative, no acute distress, alert and awake Nutritional Appearance: well nourished Orientation/consciousness: patient oriented x3 HENMT Head: Yes normal to inspection and Yes atraumatic Ears: hearing grossly normal bilaterally and external ears normal General nose exam: Normal external nose present, no nasal discharge noted and no epistaxis Face and sinus: Yes normal facial exam, No abrasion and No laceration Mouth: Normal oral and palatal mucosa present, no drooling and no muffled voice Eyes General: appearance normal, both eyes and all related structures Periorbital: periorbital findings normal Eyelids: Yes eyelids normal Conjunctivae: conjunctivae normal Pupils: Equal, round and reactive pupils present EOM: EOMs intact bilaterally Neck Neck: Yes normal visual inspection and Yes full ROM Resp Effort & Inspection: normal respiratory effort and able to speak in complete sentences Neuro General: patient oriented x3, moves all extremities and CN's II-XI intact bilaterally Cranial nerves: Yes Equal, round and reactive pupils present Cognition (Neuro): normal cognition Extrem General: Yes normal to inspection, Yes full ROM and Yes capillary refill normal Psych Appearance: grossly normal Mental Status: mental status grossly normal Affect: normal affect Attitude: cooperative Thought process: Normal thought process present Thought content: Normal thought content present Insight: Good insight present (Psych) Medical Decision Making Medical Decision Making [facility] Narrative: Patient is a 74 year old assigned male at with a history of CKD, NAFLD, PAD, BCC, HLD, HTN, and DM presenting to the emergency department today with a cough and nasal congestion. Patient's physical exam was as noted in the physical exam portion of this note. Patient's blood work was unremarkable. Patient's EKG was unremarkable. Patient's chest x-ray showed no acute process. I explained my physical exam findings as well as all test results to the patient. I answered all questions asked by the patient. Patient's clinical presentation is most consistent with bronchitis. Given the length of symptoms and comorbidities, patient treated with ABX. I stressed the importance of the patient taking his medication as directed (either prescribed or as the over the counter packaging recommends). I stressed the importance of the patient following up with his primary care provider. I stressed the importance of the patient returning to the emergency department immediately if his symptoms were to worsen or if he were to develop any dizziness, shortness of breath, difficulty breathing, chest pain, blurry vision, loss of vision, nausea, vomiting, abdominal pain, fever, chills, back pain, or any other complaints. Patient verbalized agreement and understanding with this treatment plan and discharge. Differential Diagnosis Differential Diagnoses: The differential diagnosis associated with the presentation includes Bronchitis Viral illness Atypical PNA Admission/Observation Consideration of admission/observation: Escalation of care including admission/observation considered Patient would have been admitted to the hospital had his work up had any findings where hospital admission was appropriate and his clinical presentation warranted hospital admission. Lab Data [facility] Lab Attestation statement: I reviewed the patient's lab results. My interpretation of these results are in the MDM Rationale portion of this note. 04/03/25 08:54 04/03/25 08:54 Labs: Lab Results 04/03/25 Range/Units 08:54 WBC 9.7 (4.8-10.8) X10*3/uL RBC 5.01 (4.60-5.80) X10*6/uL Hgb 14.9 (14.0-18.0) g/dl Hct 44.0 (42.0-52.0) % MCV 87.8 (80.0-98.0) fL MCH 29.7 (27.0-33.0) pg MCHC 33.9 (31.0-36.0) g/dl RDW 13.3 (11.0-16.0) % Plt Count 312 (160-400) X10*3/uL MPV 10.1 (9.4-12.4) fL Immature Gran % (Auto) 0.9 H (0.0-0.4) % Neut % (Auto) 64.8 (45-73) % Lymph % (Auto) 25.2 (20-40) % Edwards % (Auto) 6.6 (2-11) % Eos % (Auto) 1.9 (0-4) % Baso % (Auto) 0.6 (0-2) % Lymph # (Auto) 2.4 (1.2-4.9) X10*3/uL Edwards # (Auto) 0.6 (0.1-1.2) X10*3/uL Eos # (Auto) 0.2 (0.0-0.4) X10*3/uL Baso # (Auto) 0.1 (0.0-0.2) X10*3/uL Abs Immat Gran (auto) 0.09 H (0.00-0.03) X10*3/uL Absolute Neuts (auto) 6.3 (2.0-8.3) x10*3/uL Absolute Nucleated RBC 0.000 (0.0-0.012) X10*3/uL Nucleated RBC % (auto) 0.0 (0.0-0.2) /100WBC Sodium 137 (135-145) mmol/L Potassium 4.3 (3.3-5.1) mmol/L Chloride 103 (96-108) mmol/L Carbon Dioxide 27 (22-29) mmol/L Anion Gap 11 L (12-20) BUN 21 H (9-16) mg/dL Creatinine 1.14 (0.5-1.4) mg/dL Estim Creat Clear Calc 62.4 Estimated GFR > 60 Random Glucose 253 H (60-115) mg/dL Calcium 9.8 (8.4-10.2) mg/dL Total Bilirubin 0.4 (0.0-1.0) mg/dL AST 55 H (5-37) U/L ALT 74 H (0-40) U/L Alkaline Phosphatase 63 (39-117) U/L Total Protein 7.5 (6.5-8.0) g/dL Albumin 3.9 (3.5-5.0) g/dL COVID-19 (VIKTORIYA) Negative (Negative) COVID-19 Clin Com See Note Influenza Type A (MORENO) Negative (Negative) Influenza Type B (MORENO) Negative (Negative) Influenza A & B Note See Note Independent Interpretation I performed an independent interpretation of an: EKG and Plain X-Ray Interpretation: My interpretation is in agreement with the radiologist's impression of this imaging study. L Reason for Exam: SOB/ cough EXAMINATION: XR CHEST 2 VIEWS HISTORY: SOB/ cough COMPARISON: Comparison is made with the prior examination dated 08/22/2024. FINDINGS: PA and lateral views of the chest are submitted. The lungs are expanded and clear. There is no pleural effusion, pneumothorax, or pulmonary vascular congestion. The heart is normal in size. There is degenerative disc disease of the spine. XR/XR chest 2V IMPRESSION: No acute cardiopulmonary abnormality. Electronically signed by: Berlin Willoughby MD 04/03/2025 09:08 AM EDT Dictated By: Berlin Willoughby MD Signed By: Electronically signed by Berlin Willoughby MD 04/03/25 0908 I independently interpreted this EKG and am in agreement with the below findings: Vent. Rate: 74 BPM Atrial Rate: 74 BPM P-R Int: 210 ms QRS Dur: 76 ms QT Int: 372 ms P-R-T Axes: 43 6 81 degrees QTcB Int: 412 ms Sinus rhythm with 1st degree A-V block When compared with ECG of 22-Aug-2024 09:01, No significant change was found Electronically Signed By: JOHN BRANNON MD Dictated By: John Brannon MD Signed By: Electronically signed by John Brannon MD 04/03/25 1212 Radiology Impression Discussion of test interpretation with radiology: I have reviewed the radiologist's reading. Prescription Management I considered prescription management with: Antibiotic (patient prescribed antibiotics as noted in the MDM Rationale portion of this note. ) Discharge Plan Discharge Clinical Impression: Cough, Bronchitis Patient Disposition: Home, Self-Care Instructions: Acute Bronchitis (ED), How Your Lungs Work (ED) Additional Instructions: Your work up today was reassuring there is no EMERGENT cause for your symptoms. However, given the length of your symptoms, we are going to treat it as though it is an atypical infection. Take your medication as prescribed. One of the medications can cause a severe rash if you spend time in the direct sunlight - so please avoid that until you have completed the medication. IF you are prescribed home medications and/or you are taking over the counter medications at home- it is very important you continue to do so as prescribed / directed unless told otherwise. SI le recetan medicamentos y/o est? tomando medicamentos de venta willy, es muy importante que contin?e haci?ndolo seg?n lo recetado/indicado a menos que le indiquen lo contrario. Follow up with your primary care provider. Return to the emergency department immediately if your symptoms worsen or if you develop any dizziness, shortness of breath, difficulty breathing, chest pain, blurry vision, loss of vision, nausea, vomiting, abdominal pain, fever, chills, back pain, or any other complaints. Haleigh?seguimiento?con durand m?dico de atenci?n primaria. Acuda inmediatamente al servicio de urgencias si sera s?ntomas empeoran o si presenta falta de aliento, dificultad para respirar, dolor tor?cico, mareos, aturdimiento, dolor de espalda, dolor abdominal, fiebre, escalofr?os o cualquier otro s?ntoma. Please see the information below about our Patient Portal. If you are not yet enrolled in the [facility] Patient Portal, you will receive an enrollment email invitation following your visit to any [facility] care setting. You may also self-enroll in the Patient Portal by visiting our website: [email or web address] The following information is required to access the Patient Portal: - Your [facility] Medical Record Number - Your personal home email address (must match what is in your electronic medical record, Registration staff can assist with this) - Name - Date of Capabilities of the Patient Portal: - Message some providers - View upcoming appointments - Access your health summary, medical history, and visit history - View current conditions and allergies - View procedure and lab results - View your medications, including guidelines, side effects, and precautions - Complete pre-appointment questionnaires requested by your provider - Ready summary reports of your office visits and procedures To access the Patient Portal Mobile Brooke, follow these directions: - Search ThemBid in the Brooke Store or Google LessonFace Store - Download the Brooke - Search for [facility] - Enter your login/password Portal del paciente Si usted no esta inscrito en el portal de pacientes de [facility], recibira fernanda invitacion de inscripcion despues de durand visita al [facility] o al [facility] via correo electronico. Tambien puede inscribirse voluntariamente en el portal de pacientes visitando nuestra pagina web: [email or web address] La siguiente informacion sera requerida para acceder al portal: - Durand karthik de historia medica de [facility] - Durand direccion de correo electronico personal - Nombre - Fecha de nacimiento Capacidades: Las siguientes capacidades estan disponibles en el portal de pacientes: - Enviar mensajes a algunos doctores - Verificar proximas citas - Acceso a duradn historial de shweta, registro medico e historial de visitas - Markel las condiciones actuales y alergias markel procedimientos y resultados del laboratorio - Markel sera medicamentos, incluyendo las pautas - Efectos secundarios y precauciones - Completar o llenar formularios / cuestionarios de - Citas solicitadas por durand doctor - Leer los resumenes de reportes medicos de sera visitas y procedimientos Ridgeland acceder a la aplicacion movil: - Jamie Grey [employer] en la Brooke Store o [employer] Store - Descargue la aplicacion - [facility] - Ingrese durand nombre de usuario / Contrasena Prescriptions: New doxycycline hyclate 100 mg tablet 100 mg PO BID 7 Days Qty: 14 0RF amoxicillin-pot clavulanate 875-125 mg tablet 1 tab PO BID 7 Days Qty: 14 0RF No Action metformin 1,000 mg tablet 1,000 mg PO BID Qty: 60 3RF Toujeo Max U-300 SoloStar 300 unit/mL (3 mL) insulin pen 80 unit subcut BEDTIME Qty: 6 2RF (DME) pen needle, diabetic [UltiCare Pen Needle] 32 gauge x 5/32 needle See Rx Instructions .ROUTE .COMPLEX Qty: 100 11RF Dose Instruction: USE DIRECTED FOUR TIMES DAILY Rx Instructions: USE DIRECTED FOUR TIMES DAILY insulin lispro [Humalog KwikPen Insulin] 100 unit/mL insulin pen See Rx Instructions subcut .COMPLEX Qty: 30 3RF Rx Instructions: Inject 30 units before breakfast, 35 units before lunch and 35 units before dinner subcutaneously; gabapentin 100 mg capsule 100 mg PO TID Qty: 30 0RF lidocaine 5 % adhesive patch,medicated 1 patch topical DAILY PRN (Reason: pain) Qty: 15 0RF Rx Instructions: leave on most painful area for up to 12 hrs clopidogrel [Plavix] 75 mg tablet 75 mg PO DAILY Qty: 90 1RF aspirin 81 mg tablet,delayed release (DR/EC) 81 mg PO DAILY (DME) insulin syringe-needle U-100 1 mL 29 gauge x 1/2 syringe See Rx Instructions .ROUTE QID Qty: 10 Rx Instructions: As directed chlorthalidone 50 mg tablet 50 mg PO QAM (DME) blood sugar diagnostic Strip See Rx Instructions Not Applicable TID Qty: 10 Rx Instructions: As directed gabapentin 100 mg capsule 200 mg PO BID (DME) FreeStyle Willy 2 Sensor Kit See Rx Instructions .Route Qty: 2 4RF Rx Instructions: As directed change every 14 days (DME) FreeStyle Willy 2 [place] Misc See Rx Instructions .Route Qty: 1 0RF Rx Instructions: As directed amlodipine 10 mg tablet 10 mg PO QAM verapamil 120 mg tablet extended release 120 mg PO QAM spironolactone 25 mg tablet 25 mg PO QAM tamsulosin 0.4 mg capsule 0.8 mg PO BEDTIME (DME) lancets [OneTouch UltraSoft 2 Lancet] 30 gauge misc See Rx Instructions .ROUTE TID Qty: 100 Rx Instructions: As directed (DME) lancets Misc See Rx Instructions .ROUTE TID Qty: 100 Rx Instructions: As directed Invokana 100 mg tablet 100 mg PO DAILY hydralazine 25 mg tablet 25 mg PO TID Ozempic 2 mg/dose (8 mg/3 mL) pen injector 2 mg subcut QWEEK Referrals: Aneesh Oliveira MD [Primary Care Provider, Internal Medicine] Interventions: ED Discharge Assessment Last Done: 04/03/25 12:01 Discharge Date/Time: 04/03/25 12:03 Print Language: Faroese
[2025-04-03 12:01] VITALS: BP 182/70; PULSE 74; RESP 18; TEMP 36.9; O2SAT 97
--- OUTSIDE RECORDS SUMMARY | 2025-04-03 16:17 | XMS_ITS | Encounter Summary ---
Author Organization [employer] Address [address] [facility] [address] [place] [address] Care Team Providers Care Accounts Receivable Clerk Name Role Phone Name, Aneesh RIVERS Primary Care Provider [phone] Sandra Rasheed PharmD Unavailable [phone] Reason for Visit * Reason Onset Date Comments Appointment Request 07/17/2024 Encounter Details Date Type Department Care Team ([facility] st Contact Info) Description 07/17/2024 Telephone [facility] [address] [place] [address] Name, MD Aneesh [address] [place] [address] Appointment Request Social History Tobacco Use Types [...] r/s apt for 07/17/24. Contact pt at [phone] documented in this encounter Plan of Treatment Upcoming Encounters Date Type Department Care Team ([facility] st Contact Info) Description 04/16/2025 10:00 AM EST Medication Management [facility] [address] [place] [id number] Sandra Rasheed, PharmD [address] [place] [address] 05/29/2025 9:30 AM EST Office Visit [facility] [address] [place] [address] Name, MD Aneesh [address] [place] [address] 06/03/2025 9:30 AM EST Office Visit [facility] [address] [place] [phone] Jayne Huffman, OD [address] [place] [address] documented as of this encounter Visit Diagnoses Not on filedocumented in this encounter Additional Health Concerns Assessment Noted Time PHQ-9 Depression Total Score: 4 08/23/19 24 9:44 AM EDT documented as of this encounter Care Teams Accounts Receivable Clerk Relationship Specialty Start Date End Date Name, MD Aneesh [address] [place] [address] PCP - General Family Medicine 02/14/18 Sandra Rasheed, Javi [address] [place] [address] Pharmacist Internal Medicine 08/24/24 documented as of this encounter
--- OUTSIDE RECORDS SUMMARY | 2025-04-03 16:17 | XMS_ITS | Encounter Summary ---
Author Organization [employer] Address [address] [facility] 7t [place] [address] Care Team Providers Care Change Management Coordinator Name Role Phone Name, Aneesh RIVERS Primary Care Provider [phone] Sandra Rasheed PharmD Unavailable [phone] Reason for Visit * Reason Comments Med Refill Encounter Details Date Type Department Care Team ([facility] st Contact Info) Description 05/02/2024 Refill [facility] [address] [place] [address] Name, MD Aneesh [address] [place] [address] Chronic constipation Social History Tobacco Use Types [...] Upcoming Encounters Date Type Department Care Team ([facility] st Contact Info) Description 04/16/2025 10:00 AM EST Medication Management [facility] [address] [place] [address] Sandra Rasheed, PharmD [address] [place] [address] 05/29/2025 9:30 AM EST Office Visit [facility] [address] [place] [address] Aneesh Oliveira MD [address] [place] [address] 06/03/2025 9:30 AM EST Office Visit [facility] [address] [place] [address] Nathanael, Jayne, OD 230 [place] [address] documented as of this encounter Visit Diagnoses Diagnosis Chronic constipation Unspecified constipation documented in this encounter Additional Health Concerns Assessment Noted Time PHQ-9 Depression Total Score: 4 08/23/19 24 9:44 AM EDT documented as of this encounter Care Teams Change Management Coordinator Relationship Specialty Start Date End Date Aneesh Oliveira MD [address] [place] [phone] PCP - General Family Medicine 02/14/18 Sandra Rasheed, Javi [address] [place] [address] [phone] Pharmacist Internal Medicine 08/24/24 documented as of this encounter
--- OUTSIDE RECORDS SUMMARY | 2025-04-03 16:17 | XMS_ITS | Encounter Summary ---
Author Organization [employer] Address 75 [facility] 7t [place] [address] Care Team Providers Care Mobile Qa Tester Name Role Phone Name, Aneesh RIVERS Primary Care Provider [phone] Sandra Rasheed PharmD Unavailable [phone] Encounter Details Date Type Department Care Team (Late st Contact Info) Description 03/23/2023 Orders Only [facility] [address] [place], [place] [phone] Amber Brantley LPN Social History Tobacco Use [...] Care Team (Late st Contact Info) Description 04/16/2025 10:00 AM EST Medication Management [facility] [address] [place] [address] Sandra Rasheed PharmD [address] [place] [phone] 05/29/2025 9:30 AM EST Office Visit [facility] [address] [place] [address] Name, MD Aneesh [address] [place] [address] 06/03/2025 9:30 AM EST Office Visit [facility] [address] [place] [address] Nathanael, Jayne, OD [address] [place] [address] documented as of this encounter Visit Diagnoses Not on filedocumented in this encounter Care Teams Mobile Qa Tester Relationship Specialty Start Date End Date Name, MD Aneesh [address] [place] [address] PCP - General Family Medicine 02/14/18 Sandra Rasheed PharmD [address] [place] [phone] Pharmacist Internal Medicine 08/24/24 documented as of this encounter
--- OUTSIDE RECORDS SUMMARY | 2025-04-03 16:17 | XMS_ITS | Encounter Summary ---
Author Organization [employer] Address [address] [facility] 7t [place] [address] Care Team Providers Care Case Investigator Name Role Phone Name, Aneesh RIVERS Primary Care Provider [phone] Sandra Rasheed PharmD Unavailable [phone] Reason for Visit * Reason Comments Med Refill Encounter Details Date Type Department Care Team ([facility] st Contact Info) Description 08/18/2023 Refill [facility] [address] [place], [place] [phone] Name, MD Aneesh 230 [place] [address] Social History Tobacco Use Types Packs/Day Years [...] Description 04/16/2025 10:00 AM EST Medication Management [facility] [address] [place] [address] Sandra Rasheed PharmD [address] [place] [address] 05/29/2025 9:30 AM EST Office Visit [facility] [address] [place] [address] Name, MD Aneesh [address] [place] [address] 06/03/2025 9:30 AM EST Office Visit [facility] [address] [place] [address] Nathanael, Jayne, OD [address] [place] [address] documented as of this encounter Visit Diagnoses Not on filedocumented in this encounter Care Teams Case Investigator Relationship Specialty Start Date End Date Name, MD Aneesh [address] [place] [address] PCP - General Family Medicine 02/14/18 Sandra Rasheed, PharmD [address] [place] [address] Pharmacist Internal Medicine 08/24/24 documented as of this encounter
--- OUTSIDE RECORDS SUMMARY | 2025-04-03 16:17 | XMS_ITS | Encounter Summary ---
Author Organization [employer] Address [address] [facility] 7t [place] [address] Care Team Providers Care Paperboard Box Maker Name Role Phone Name, Aneesh RIVERS Primary Care Provider Sandra Rasheed PharmD Unavailable [phone] Reason for Visit * Reason Comments Med Refill Encounter Details Date Type Department Care Team ([facility] st Contact Info) Description 12/20/2024 Refill [facility] [address] [place] [address] Name, MD Aneesh [address] [place] [address] Left leg pain; Chronic low back pain, [...] Description 04/16/2025 10:00 AM EST Medication Management [facility] [address] [place] [address] Sandra Rasheed, PharmD 230 [place] [address] 05/29/2025 9:30 AM EST Office Visit [facility] [address] [place] [address] Name, MD Aneesh 230 [place] [address] 06/03/2025 9:30 AM EST Office Visit [facility] [address] [place] [address] Nathanael, Jayne, OD 230 [place] [address] documented as of this encounter Visit Diagnoses Diagnosis Left leg pain Pain in soft tissues of limb Chronic low back pain, unspecified back pain laterality, unspecified whether sciatica present documented in this encounter Additional Health Concerns Assessment Noted Time PHQ-9 Depression Total Score: 4 08/23/19 24 9:44 AM EDT documented as of this encounter Care Teams Paperboard Box Maker Relationship Specialty Start Date End Date Name, MD Aneesh 230 [place] [address] PCP - General Family Medicine 02/14/18 Sandra Rasheed PharmD 230 [place] [address] Pharmacist Internal Medicine 08/24/24 documented as of this encounter
--- OUTSIDE RECORDS SUMMARY | 2025-04-03 16:17 | XMS_ITS | Encounter Summary ---
Author Organization [employer] Address 75 [facility] 7t [place] [address] Care Team Providers Care Maintenance Team Member Name Role Phone Name, Aneesh RIVERS Primary Care Provider [phone] Sandra Rasheed PharmD Unavailable [phone] Reason for Visit * Reason Comments Med Refill Encounter Details Date Type Department Care Team ([facility] st Contact Info) Description 08/19/2023 Refill [facility] [address] [place] [address] Name, MD Aneesh [address] [place] [address] Social History Tobacco Use Types Packs/Day Years [...] Description 04/16/2025 10:00 AM EST Medication Management [facility] [address] [place] [address] Sandra Rasheed PharmD [address] [place] [address] 05/29/2025 9:30 AM EST Office Visit [facility] [address] [place] [address] Name, MD Aneesh [address] [place] [address] 06/03/2025 9:30 AM EST Office Visit [facility] [address] [place] [address] Nathanael, Jayne, OD 230 [place] [address] documented as of this encounter Visit Diagnoses Not on filedocumented in this encounter Care Teams Maintenance Team Member Relationship Specialty Start Date End Date Name, MD Aneesh [address] [place] [address] PCP - General Family Medicine 02/14/18 Sandra Rasheed, PharmD [address] [place] [address] Pharmacist Internal Medicine 08/24/24 documented as of this encounter
--- OUTSIDE RECORDS SUMMARY | 2025-04-03 16:17 | XMS_ITS | Encounter Summary ---
Author Organization [employer] Address [address] [facility] 7t [place] [address] Care Team Providers Care Photostat Operator Name Role Phone Name, Aneesh RIVERS Primary Care Provider Sadnra Rasheed PharmD Unavailable [phone] Encounter Details Date Type Department Care Team (Late st Contact Info) Description 04/03/2025 Orders Only [facility] External Provider, [facility] Social History Tobacco Use Types Packs/Day Years Used Date Smoking Tobacco: Never Passive Smoke Exposure: Never Smokeless Tobacco: Never Alcohol Use Standard Drinks/Week Comments Never 0 (1 standard drink = 0.6 oz pur e alcohol) Depression Answer Date Recorded Patient Health Questionnaire-9 Score 5 03/06/2025 Patient Health Questionnaire-9 Score 5 03/06/2025 Last PHQ-9: Questionnaire Data Not on file 0 03/06/2025 Housing Stability Answer Date Recorded What is your housing situation today? I have brandyligia haile 03/06/[address] you li ve. Do you have problems with any of the following? None of the above 03/06/2025 Food Insecurity Answer Date Recorded Within the past 12 months, y ou worried that your food would run out before you got money to buy more: Never True 03/06/2025 Within the past 12 months,th e food you bought just didn't last and you didn't have enough money to get more: Never True Transportation Answer Date Recorded In the past 12 months, has l ack of transportation kept you from medical appts, meetings, work or from getting things needed for daily living? Yes, it has kept me from medical appointments or getting medications. 03/06/2025 Utilities Answer Date Recorded In the past 12 months, has t he electric, gas, oil or water company threatened to shut off services in your home? No 03/06/2025 Depression Answer Date Recorded Patient Health Questionnaire-2 Score 0 03/06/2025 Internet Access Answer Date Recorded Internet Access Q1 Yes 03/06/2025 Internet Access Q2 I do not want or need it 02/12 Sex and Gender Information Value Date Recorded Sex Assigned at Male 04/12/2022 10:14 AM EDT Legal Sex Male 10:14 AM EDT Gender Identity Male 04/12/2022 10:14 AM EDT Sexual Orientation Straight 04/12/2022 10 :14 AM EDT documented as of this encounter Plan of Treatment Upcoming Encounters Date Type Department Care Team (Late st Contact Info) Description 04/16/2025 10:00 AM EST Medication Management [facility] [address] [place] [address] Sandra Rasheed, PharmD 230 [place] [address] 05/29/2025 9:30 AM EST Office Visit [facility] [address] [place] [address] Name, MD Aneesh [address] [place] [address] 06/03/2025 9:30 AM EST Office Visit [facility] [address] [place] [address] Nathanael, Jayne, OD [address] [place] [address] documented as of this encounter Procedures Procedure Name Priority Date/Time Associated Diagnosis Comments XR CHEST 2 VIEWS Routine 04/03/2025 9:00 AM EDT INFLUENZA A B2 ID NOW (CAUSEY) Routine 04/03/2025 8:54 AM EDT COVID-19 ID NOW (CAUSEY) Routine 04/03/2025 8:54 AM EDT CBC WITH AUTO DIFFERENTIAL Routine 04/03/2025 8:54 AM EDT COMPREHENSIVE METABOLIC PANEL Routine 04/03/2025 8:54 AM EDT documented in this encounter Results * XR Chest 2 Views (04/03/2025 9:00 AM EDT) Anatomical Region Laterality Modality Chest Radiographic Trang ging 04/03/2025 9:00 AM EDT Narrative 04/03/2025 9:10 AM EDT [address] [address] XRay Report Signed Patient: Josue Dawson MR#: [id number] : 1950 Acct:[id number] Age/Sex: 74 / M ADM Date: 04/03/25 Loc: .ED Attending Dr: Ordering Physician: Generic ED Physician Date of Service: 04/03/25 Procedure(s): XR chest 2V Accession Number(s): [id number] cc: Generic ED Physician; Name,Aneesh RIVERS Reason for Exam: SOB/ cough EXAMINATION: XR CHEST 2 VIEWS HISTORY: SOB/ cough COMPARISON: Comparison is made with the prior examination dated 08/22/2024. FINDINGS: PA and lateral views of the chest are submitted. The lungs are expanded and clear. There is no pleural effusion, pneumothorax, or pulmonary vascular congestion. The heart is normal in size. There is degenerative disc disease of the spine. XR/XR chest 2V IMPRESSION: No acute cardiopulmonary abnormality. Electronically signed by: Berlin Willoughby MD 04/03/2025 09:08 AM EDT Dictated By: Berlin Willoughby MD Signed By: <Electronically signed by Berlin Willoughby MD in OV> 04/03/25907 DD/ 9 TD/TT: 04/03/25904 Airport Attendant: Procedure Note Donotuseinterpreter, Image - 04/03/[address] [address] XRay Report Signed Patient: Josue DawsonMR#: [id number] : 1950cct:[id number] Age/Sex: 74 / MADM Date: 04/03/25 Loc: HO.ED Attending Dr: Ordering Physician: Generic ED Physician Date of Service: 04/03/25 Procedure(s): XR chest 2V Accession Number(s): [id number] cc: Generic ED Physician; Name,Aneesh RIVERS Reason for Exam: SOB/ cough EXAMINATION: XR CHEST 2 VIEWS HISTORY: SOB/ cough COMPARISON: Comparison is made with the prior examination dated 08/22/2024. FINDINGS: PA and lateral views of the chest are submitted. The lungs are expanded and clear. There is no pleural effusion, pneumothorax, or pulmonary vascular congestion. The heart is normal in size. There is degenerative disc disease of the spine. XR/XR chest 2V IMPRESSION: No acute cardiopulmonary abnormality. Electronically signed by: Berlin Willoughby MD 04/03/2025 09:08 AM EDT RP Dictated By: Berlin Willoughby MD Signed By: <Electronically signed by Berlin Willoughby MD in OV> 04/03/25 0908 DD/ 0900 TD/TT: 04/03/25 0905 Airport Attendant: [facility] External Provider IMG XR PROCEDURES Final Result * COVID-19 ID NOW ([employer]) (04/03/2025 8:54 AM EDT) IDNOW SERIAL# [id number] [facility] COVID-19 TEST Negative Negative [facility] COVID-19 NOTE See Note [facility] Comment: Results are for the identification of SARS-CoV2 RNA. TheSARS-CoV2 RNA is generally detectable in respiratory samplesduring the acute phase of infection. Positive results areindicative of the presence of SARS-CoV-2 RNA; clinicalcorrelation with patient history and other diagnosticinformation is necessary to determine patient infectionstatus. Positive results do not rule out bacterial infectionor co- infection with other viruses.Testing facilities within the [facility] and itsterritories are required to report all positive results tothe appropriate public health authorities.Negative results should be treated as presumptive and, ifinconsistent with clinical signs and symptoms or necessaryfor patient management, should be tested with differentauthorized or cleared molecular tests. Negative results donot preclude SARS-CoV2 RNA infection and should not be usedas the sole basis for patient management decisions. Negativeresults should be considered in the context of a patient'srecent exposures, history and the presence of clinical signsand symptoms consistent with COVID-19.This test has been authorized by the FDA under an EmergencyUse Authorization (EUA) for use by authorized laboratories.Testing performed on the [facility] ID NOW utilizing NAAT. 04/03/2025 8:54 AM EDT 04/03/2025 8:59 AM EDT Generic External Data Provider LAB MOLECULAR MAME GNOSTICS ORDERABLES Final Result Performing Organization Address [facility] Co de Phone Number [facility] [address] [place] [phone] * Influenza A B2 ID NOW ([employer]) (04/03/2025 8:54 AM EDT) IDNOW SERIAL# [id number] [facility] Influenza A Negative Negative [facility] Influenza B2 Negative Negative [facility] Influenza A B2 Note See Note [facility] Comment:The [facility] ID NOW In fluenza A B2 test is used for thequalitative detection of influenza A and B from patientswith signs and symptoms of respiratory infection.Negative results do not preclude influenza virus infectionand should not be used as the sole basis for diagnosis,treatment or other patient management decisions.There is a risk of false negative results due to thepresence of variants in the viral targets of the assay, lowlevels of virus in the specimen and co- infection withRespiratory Syncytial Virus. 04/03/2025 8:54 AM EDT 04/03/2025 8:59 AM EDT us Generic External Data Provider LAB MICROBIOLOGY - GENERAL ORDERABLES Final Result Performing Organization Address City/[facility]/ZIP Co de Phone Number [facility] [address] [place] [address] [phone] * (ABNORMAL) Comprehensive Metabolic Panel (04/03/2025 8:54 AM EDT) Sodium 137 135 - 145 mmol/L [facility] Potassium 4.3 3.3 - 5.1 mmol/L [facility] Comment:Slight Hemolysis.Int erpret result with caution. Chloride 103 96 - 108 mmol/L [facility] Carbon Dioxide 27 22 - 29 mmol/L [facility] Anion Gap 11(L) 12 - 20 [facility] Urea Nitrogen (BUN) 21(H) 9 - 16 mg/dL [facility] Creatinine, Serum 1.14 0.5 - 1.4 mg/dL [facility] Creatinine Clr Calc Pharmacy 62.4 [facility] Comment:eGFR (calculated fro m the MDRD study equation) and eCrCl(calculated from the Cockcroft-Gault equation) are based ondifferent parameters and may not yield comparable results.If eCrCl result is absurd, please check patient'sheight/weight. Estimated Glomerular Filt Rate >60 [facility] Comment:Chronic Kidney Disea se: Estimated GFR < 60 mL/min/1.88m9Lbjhxm Kidney Disease: Estimated GFR < 15 mL/min/1.73m2 Glucose 253(H) 60 - 115 mg/dL [facility] Calcium 9.8 8.4 - 10.2 mg/dL [facility] Bilirubin, Total 0.4 0.0 - 1.0 mg/dL [facility] Aspartate Amino Transferase 55(H) 5 - 37 U/L [facility] Comment:Slight Hemolysis.Int erpret result with caution. Alanine Aminotransferase 74(H) 0 - 40 U/L [facility] Total Protein 7.5 6.5 - 8.0 g/dL [facility] Albumin Level 3.9 3.5 - 5.0 g/dL [facility] Alkaline Phosphatase 63 39 - 117 U/L [facility] 04/03/2025 8:54 AM EDT 04/03/2025 8:59 AM EDT us Generic External Data Provider LAB BLOOD ORDERAB LES Final Result [facility] [address] [place] [address] [phone] * (ABNORMAL) CBC auto differential (04/03/2025 8:54 AM EDT) White Blood Count 9.7 4.8 - 10.8 X10*3/uL [facility] Red Blood Count 5.01 4.60 - 5.80 X10*6/uL [facility] Hemoglobin 14.9 14.0 - 18.0 g/dl [facility] Hematocrit 44.0 42.0 - 52.0 % [facility] Mean Corpuscular Volume 87.8 80.0 - 98.0 fL [facility] Mean Corpuscular Hemoglobin 29.7 27.0 - 33.0 pg [facility] Mean Corpuscular HGB Conc 33.9 31.0 - 36.0 g/dl [facility] Red Cell Distribution Width 13.3 11.0 - 16.0 % [facility] Platelet Count 312 160 - 400 X10*3/uL [facility] Mean Platelet Volume 10.1 9.4 - 12.4 fL [facility] Neutrophils Percent Auto 64.8 45 - 73 % [facility] Imm Gran Pct Auto 0.9(H) 0.0 - 0.4 % [facility] Lymphocytes Percent Auto 25.2 20 - 40 % [facility] Monocytes Percent Auto 6.6 2 - 11 % [facility] Eosinophils Percent Auto 1.9 0 - 4 % [facility] Basophils Percent Auto 0.6 0 - 2 % [facility] NRBC Pct Auto 0.0 0.0 - 0.2 /100WBC [facility] Neutrophils Absolute Auto 6.3 2.0 - 8.3 x10*3/uL [facility] Imm Gran Abs Auto 0.09(H) 0.00 - 0.03 X10*3/uL [facility] Lymphocytes Absolute Auto 2.4 1.2 - 4.9 X10*3/uL [facility] Monocytes Absolute Auto 0.6 0.1 - 1.2 X10*3/uL [facility] Eosinophils Absolute Auto 0.2 0.0 - 0.4 X10*3/uL [facility] Basophils Absolute Auto 0.1 0.0 - 0.2 X10*3/uL [facility] NRBC Abs Auto 0.000 0.0 - 0.012 X10*3/uL [facility] 04/03/2025 8:54 AM EDT 04/03/2025 8:59 AM EDT us Generic External Data Provider LAB BLOOD ORDERAB LES Final Result [facility] [address] [place] [address] [phone] documented in this encounter Visit Diagnoses Not on filedocumented in this encounter Additional Health Concerns Assessment Noted Time PHQ-9 Depression Total Score: 5 03/06/20 25 11:44 AM EDT documented as of this encounter Care Teams Photostat Operator Relationship Specialty Start Date End Date Name, MD Aneesh [address] [place] [phone] PCP - General Family Medicine 02/14/18 Sandra Rasheed PharmD [address] [place] [address] Pharmacist Internal Medicine 08/24/24 documented as of this encounter
--- OUTSIDE RECORDS SUMMARY | 2025-04-03 16:17 | XMS_ITS | Encounter Summary ---
Author Organization [email or web address] Address [address] [facility] 7t [place] [address] Care Team Providers Care Senior Power Scheduler Name Role Phone Name, Aneesh RIVERS Primary Care Provider [phone] Sandra Rasheed PharmD Unavailable [phone] Reason for Visit * Reason Onset Date Comments Prior Authorization 04/01/2025 Encounter Details Date Type Department Care Team ([facility] st Contact Info) Description 04/01/2025 Refill [facility] MEDICINE [address] [place] [address] Name, MD Aneesh [address] [place] [address] Type 2 diabetes mellitus with other specified complication, without long-term current use of insulin (HCC) (Primary Dx) Social History Tobacco Use Types [...] housing situation today? I have brandy haile 03/06/[address] you [...] as of this encounter Miscellaneous Notes * Addendum Note - Arlene Carpio RN - 04/01/2025 12:25 PM EDTAddended by: ARLENE CARPIO on: 04/01/2025 12:25 PM Modules accepted: Orders * Addendum Note - Aneesh Pelaez MD - 04/01/2025 12:09 PM EDTAddended by: ANEESH PELAEZ on: 04/01/2025 12:09 PM Modules accepted: Orders * Telephone Encounter - Mili Dennis - 04/01/2025 11:44 AM EDT PA required for One Touch ultra test strips. Plan preferred: Contour Plus BLUE or AccuChek guide. Please advise if agree to change to covered alternative or if wish to proceed with PA. Thank you documented in this encounter Plan of Treatment Upcoming Encounters Date Type Department Care Team (Late st Contact Info) Description 04/16/2025 10:00 AM EST Medication Management [facility] MEDICINE [address] [place] [address] Sandra Rasheed PharmD [address] [place] [address] 05/29/2025 9:30 AM EST Office Visit [facility] MEDICINE [address] [place] [address] Name, MD Aneesh [address] [place], [place] 06/03/2025 9:30 AM EST Office Visit [facility] OPTOMETRY [address] [place], [place] [phone] NathanaelJayne agudelo, OD [address] [place] [address] documented as of this encounter Visit Diagnoses Diagnosis Type 2 diabetes mellitus with other specified complication, without long-term current use of insulin (HCC)- Primary documented in this encounter Additional Health Concerns Assessment Noted Time PHQ-9 Depression Total Score: 5 03/06/20 25 11:44 AM EDT documented as of this encounter Care Teams Senior Power Scheduler Relationship Specialty Start Date End Date Name, [place] [address] PCP - General Family Medicine 02/14/18 Sandra Rasheed PharmD [address] [place] [address] [phone] Pharmacist Internal Medicine 08/24/24 documented as of this encounter
--- OUTSIDE RECORDS SUMMARY | 2025-04-03 16:17 | XMS_ITS | Encounter Summary ---
Author Organization [employer] Address [address] [facility] 7t [place] [address] Care Team Providers Care Racing Car Driver Name Role Phone Name, Aneesh RIVERS Primary Care Provider [phone] Sandra Rasheed PharmD Unavailable [phone] Reason for Visit * Reason Comments Med Refill Encounter Details Date Type Department Care Team ([facility] st Contact Info) Description 01/12/2024 Refill [facility] CHC MED & PEDS [address] [place], [place] [phone] Name, MD Aneesh [address] [place] [address] Chronic low back pain, unspecified back pain [...] Description 04/16/2025 10:00 AM EST Medication Management [facility] MEDICINE [address] [place] [phone] Sandra Rasheed, PharmD [address] [place] [address] 05/29/2025 9:30 AM EST Office Visit [facility] MEDICINE [address] [place] [phone] Aneesh Oliveira MD [address] [place] [address] 06/03/2025 9:30 AM EST Office Visit [facility] OPTOMETRY [address] [place] [address] Nathanael, Jayne, OD [address] [place] [address] documented as of this encounter Visit Diagnoses Diagnosis Chronic low back pain, unspecified back pain laterality, unspecified whether sciatica present documented in this encounter Additional Health Concerns Assessment Noted Time PHQ-9 Depression Total Score: 4 08/23/19 24 9:44 AM EDT documented as of this encounter Care Teams Racing Car Driver Relationship Specialty Start Date End Date NameAneesh MD [address] [place] [address] PCP - General Family Medicine 02/14/18 Sandra Rasheed, Javi [address] [place] [address] Pharmacist Internal Medicine 08/24/24 documented as of this encounter
--- OUTSIDE RECORDS SUMMARY | 2025-04-03 16:17 | XMS_ITS | Encounter Summary ---
Author Organization [employer] Address [address] [facility] 7t [place] [address] Care Team Providers Care Trade Mark Examiner Name Role Phone Name, Aneesh RIVERS Primary Care Provider [phone] Sandra Rasheed PharmD Unavailable [phone] Reason for Visit * Reason Onset Date Comments FYI 08/23/2023 Encounter Details Date Type Department Care Team ([facility] st Contact Info) Description 08/23/2023 Telephone [facility] MEDICINE [address] [place] [address] Name, MD Aneesh [address] [place] [address] FY Social History Tobacco Use Types Packs/Day Years [...] 3:03 PM EDT Tc from Leidy with [facility] stating pt no longer wants to continue care with them. Leidy stated pt no showed 3 appts in a row and when asked about it pt said it was due to to transportation. Pt claims they are irresponsible and that they don't communicate. Pt stated he will continue care with PCP. If any questions please contact Leidy at [phone]. documented in this encounter Plan of Treatment Upcoming Encounters Date Type Department Care Team (Late st Contact Info) Description 04/16/2025 10:00 AM EST Medication Management [facility] MEDICINE [address] [place] [address] Sandra Rasheed, PharmD [address] [place] [address] 05/29/2025 9:30 AM EST Office Visit [facility] MEDICINE [address] [place] [address] Name, MD Aneesh [address] [place] [address] 06/03/2025 9:30 AM EST Office Visit [facility] OPTOMETRY [address] [place] [address] Jayne Huffman, BRYANT [address] [place] [address] documented as of this encounter Visit Diagnoses Not on filedocumented in this encounter Additional Health Concerns Assessment Noted Time PHQ-9 Depression Total Score: 4 08/23/19 24 9:44 AM EDT documented as of this encounter Care Teams Trade Mark Examiner Relationship Specialty Start Date End Date Name, MD Aenesh [address] [place] [address] PCP - General Family Medicine 02/14/18 Sandra Rasheed PharmD [address] [place] [address] Pharmacist Internal Medicine 08/24/24 documented as of this encounter
--- OUTSIDE RECORDS SUMMARY | 2025-04-03 16:17 | XMS_ITS | Encounter Summary ---
Author Organization [employer] Address [address] [facility] 7t [place] [address] Care Team Providers Care Field Research Assistant Name Role Phone Name, Aneesh RIVERS Primary Care Provider [phone] Sandra Rasheed PharmD Unavailable [phone] Reason for Visit * Reason Comments Med Refill Encounter Details Date Type Department Care Team ([facility] Contact Info) Description 04/09/2024 Refill [facility] CHC MED & PEDS [address] [place], [place] [phone] Name, MD Aneesh [address] [place] [address] Chronic low back pain, unspecified back pain [...] your housing situation today? I have brandy lazara 08/23/[address] you li [...] 04/16/2025 10:00 AM EST Medication Management [facility] MEDICINE [address] [place] [address] Sandra Rasheed, PharmD [address] [place] [address] 05/29/2025 9:30 AM EST Office Visit [facility] MEDICINE [address] [place] [phone] Aneesh Oliveira MD [address] [place] [address] 06/03/2025 9:30 AM EST Office Visit [facility] OPTOMETRY [address] [place] [address] Nathanael, Jayne, OD [address] [place] [address] documented as of this encounter Visit Diagnoses Diagnosis Chronic low back pain, unspecified back pain laterality, unspecified whether sciatica present documented in this encounter Additional Health Concerns Assessment Noted Time PHQ-9 Depression Total Score: 4 08/23/19 24 9:44 AM EDT documented as of this encounter Care Teams Field Research Assistant Relationship Specialty Start Date End Date NameAneesh MD [address] [place] [phone] PCP - General Family Medicine 02/14/18 Sandra Rasheed, Javi [address] [place] [address] Pharmacist Internal Medicine 08/24/24 documented as of this encounter
--- OUTSIDE RECORDS SUMMARY | 2025-04-03 16:18 | XMS_ITS | Clinical Summary ---
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 Active lactulose (Chronulac) 10 GM/15ML solution TAKE 15 ML BY MOUTH EVERY DAY 250 mL 10 Active canagliflozin (Invokana) 100 MG Take 1 tablet (100 mg) by mouth before breakfast. 30 tablet 2024 Active Alcohol Swabs (Easy Touch Alcohol Prep Medium) 70 % pads USE DIRECTED FOUR TIMES DAILY 100 each Active acetaminophen (Tylenol) 500 MG tablet Take 1 tablet (500 mg) by mouth every 8 (eight) hours if needed for mild pain. Patient reports taking 3 tablets every morning for pain 30 tablet 11 2024 Active senna (Senokot) 8.6 MG tablet Take 2 tablets by mouth Once per day. Active Reguloid 400 MG capsule Take 2 capsules by mouth 2 times daily. Active insulin pen needle (Montage StudiotiGuard SafePack Pen Needle) 32G x 4 mm miscIndications: Type 2 diabetes mellitus with hyperglycemia ([facility]) Use to inject insulin 4 times daily 200 each Active glucose blood (UNXuch Ultra) test stripIndications :Type 2 diabetes mellitus with hyperglycemia ([facility]) TEST BLOOD SUGAR THREE TIMES DAILY 100 strip Active metFORMIN (Glucophage) 1000 MG tabletIndication s:Type 2 diabetes mellitus with other specified complication, without long-term current use of insulin ([facility]) TAKE 1 TABLET BY MOUTH TWICE DAILY AT NOON AND IN THE EVENING BEFORE MEALS 60 tablet Active Aspirin Low Dose 81 MG [...] MOUTH EVERY MORNING WITH FOOD 90 tablet 1 025 Active spironolactone (Aldactone) 25 MG tabletIndication s:Hypertension, unspecified type TAKE 1 TABLET BY MOUTH EVERY MORNING 90 tablet 025 Active Semaglutide, 2 MG/DOSE, (Ozempic, 2 MG/DOSE,) 8 MG/3ML solution pen-injectorIndi cations:Type 2 diabetes mellitus with hyperglycemia, with long-term current use of insulin ([facility]) Inject 0.75 mL (2 mg) under the skin 1 (one) time per week. 3 mL 025 Active rosuvastatin (Crestor) 20 MG tabletIndication s:Type 2 diabetes mellitus with hyperglycemia, with long-term current use of insulin ([facility]) Take 1 tablet (20 mg) by mouth Once per day. 90 tablet 1 025 Active hydrALAZINE (Apresoline) 25 MG tablet Take 1 tablet (25 mg) by mouth 3 times daily. 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) INJECT 80 UNITS SUBCUTANEOUSLY EVERY DAY AT BEDTIME 12 mL 2 025 Active Blood Glucose Monitoring Suppl (Accu-Chek Meggan Plus) w/Device kitIndications:T ype 2 diabetes mellitus with other specified complication, without long-term current use of insulin (HCC) Test daily before all meals/snacks and once before bedtime. 1 kit 025 Active Blood Glucose Calibration (Accu-Chek Meggan) solutionIndicati ons:Type 2 diabetes mellitus with other specified complication, without long-term current use of insulin (HCC) Glucose control solution provides an easy way to ensure accurate blood glucose testing. 1 each 025 Active Lancets Misc. (Accu-Chek Softclix Lancet Dev) kitIndications:T ype 2 diabetes mellitus with other specified complication, without long-term current use of insulin (HCC) Test daily before all meals/snacks and once before bedtime. 1 kit Active Alcohol Sheets (Alcoh-Wipe) sheetIndications :Type 2 diabetes mellitus with other specified complication, without long-term current use of insulin (HCC) Test daily before all meals/snacks and once before bedtime. 1 each Active Blood Glucose Monitoring Suppl (Accu-Chek Guide Me) w/Device kit Test daily before all meals/snacks and once before bedtime. 1 kit Active glucose blood (Accu-Chek Guide Test) test strip Test daily before all meals/snacks and once before bedtime. 100 each 11 Active OneTouch UltraSoft 2 Lancets miscIndications: Type 2 diabetes mellitus with hyperglycemia (HCC) 1 each 3 times daily. Use to check BG three times daily 100 each 11 025 2024 Discontinued(I neffective) Blood Glucose Monitoring Suppl (ONE TOUCH ULTRA 2) w/Device kitIndications:T ype 2 diabetes mellitus with hyperglycemia, with long-term current use of insulin (HCC) Use to check blood sugar three times daily as directed 1 kit 025 2024 Discontinued(T herapy completed) Blood Glucose Monitoring Suppl (Accu-Chek Guide Me) w/Device kit 2024 Discontinued(R eorder (will not trigger notification to Pharmacy)) glucose blood (Accu-Chek Guide Test) test strip 2024 Discontinued(R eorder (will not trigger notification to Pharmacy)) Active Problems Problem Noted Date Diagnosed Date Serrated adenoma of colon 12/02/2023 Lumbar spondylosis 12/02/2023 Lumbar radiculopathy 12/02/2023 CKD (chronic kidney disease) 12/02/2023 Cellulitis of left lower leg 10/06/2023 Assessment & Plan (10/06/2023 4:38 PM EDT): I will extend his antibiotics for 10 more days (doxycycline and cephalexin) Aortic stenosis 03/22/2023 03/22/2023 Chest pain 03/22/2023 03/22/2023 Diverticulosis of colon 03/22/2023 03/22/20 Epigastric pain 03/22/2023 03/22/2023 Familial hypocalciuric hypercalcemia [...] (BCC) 09/12/2020 Stage 3a chronic kidney disease (CMS/HCC) 2020 Diabetic nephropathy associa augusto with type 2 [...] with log HLD (hyperlipidemia) 11/22/2011 Obesity 11/22/2011 Resolved Problems Problem Noted Date Diagnosed Date Resolved Date Postop check 05/19/2023 05/19/2023 03/06/2025 Encounters Date Type Department Care Team Description 04/03/2025 Orders Only [facility] External Provider, [facility] 04/01/2025 Refill [facility] [address] [place] [address] Aneesh Oliveira MD Type 2 diabetes mellitus with other specified complication, without long-term current use of insulin (HCC) (Primary Dx) 03/06/2025 11:00 AM EDT Office Visit [facility] [address] [place] [address] Aneesh Oliveira MD Type 2 diabetes mellitus with other specified complication, without long-term current use of insulin (CMS/HCC) (Primary Dx); Stage 3a chronic kidney disease (CMS/HCC); Hypertension, unspecified type; Chronic low back pain, unspecified back pain laterality, unspecified whether sciatica present; Generalized osteoarthritis; Encounter for immunization 03/06/2025 Travel 02/18/2025 Telephone [facility] [address] [place] [address] Aneesh Oliveira MD Chart Prep 02/04/2025 Travel 02/01/2025 Refill [facility] [address] [place] [phone] Sandra Rasheed PharmD Type 2 diabetes mellitus with hyperglycemia (CMS/HCC); long-term (current) use of insulin (CMS/HCC) 01/24/2025 Refill [facility] [address] [place] [address] Aneesh Oliveira MD Chronic low back pain, unspecified back pain laterality, unspecified whether sciatica present 01/22/2025 Refill [facility] [address], [place] [phone] Sandra Rasheed PharmD Type 2 diabetes mellitus with hyperglycemia ([facility]); long-term (current) use of insulin ([facility]) 01/20/2025 Orders Only GENERIC EXTERNAL DATA DEPARTMENT Provider, Generic External Data 01/16/2025 Orders Only GENERIC EXTERNAL DATA DEPARTMENT Provider, Generic External Data 01/01/2025 Refill [facility] [address] [place] [address] Name, MD Aneesh Left leg pain; Chronic low back pain, unspecified back pain laterality, unspecified whether sciatica present from Last 3 Months Immunizations Immunization Administration Dates Next Due Influenza High-dose Quadriva lent Preservative Free 03/22/2023,04/05/2022,03/26/2021 Influenza injectable quadriv alent IIV4 with preservative 05/17/2016 Influenza, High Dose Seasona l, Preservative Free 03/06/2025,05/18/2024,03/14/2018 Influenza, IIV3, injectable 03/05/2011, 0 Influenza, Split [...] housing situation today? I have brandy lazara 03/06/[address] you li [...] Sign Reading Time Taken Comments Blood Pressure 130/80 03/06/2025 10:58 AM EDT Pulse 77 03/06/2025 10:58 AM EDT Temperature 36.8 C (98.2 F) 03/06/2025 10:58 AM EDT Respiratory Rate 19 03/06/2025 10:58 AM EDT Oxygen Saturation 98% 03/06/2025 10:58 AM EDT Inhaled Oxygen Concentration - - Weight 97.8 kg (215 lb 9.6 oz) 03/06/2025 10:58 AM EDT Height 167.6 cm (5' 6 ) 03/06/2025 10:58 AM EDT Body Mass Index 34.8 03/06/2025 10:58 AM EDT Plan of Treatment Upcoming Encounters Date Type Department Care Team (Late st Contact Info) Description 04/16/2025 10:00 AM EST Medication Management [facility] [address] [place] [address] Sandra Rasheed, PharmD [address] [place], [place] [phone] 05/29/2025 9:30 AM EST Office Visit [facility] [address] [place] [address] Name, MD Aneesh [address] [place], [place] [phone] 06/03/2025 9:30 AM EST Office Visit [facility] [address] [place], [place] [phone] Nathanael, Jayne, OD [address] [place], [place] [phone] Health Maintenance Due Date Last Done Comments [...] Zoster Vaccines (2 of 2) 03/29/2023 02/01/2023 Dental X-Ray: Full Mouth 08/27/2024 08/26/2021, 03/14 COVID-19 Vaccine ( season) 2025 10/26/2021, 04/29/2021, 09/23/2020, Additional history exists Diabetes: Hemoglobin A1C 05/07/2025 025, 11/17/2024, 09/26/2024, Additional history exists Alcohol/Substance Use Screening 05/18/2025 05/18/2024 Diabetes: Foot Exam 09/26/2025 09/26/2024, 09/26/2024, 09/26/2024, Additional history exists Lipid Panel 11/17/2025 11/17/2024, 05/13, 10/08/2022, Additional history exists Eye Exam 11/26/2025 11/26/2024, 11/11, 11/26/2024, Additional history exists Colonoscopy 02/10/2026 02/10/2023, 07/23/2012 Colorectal Cancer Screening 02/10/2026 Depression Screening 03/06/2026 03/06/2025, 03/06/20 25 SDOH Screening 03/06/2026 03/06/2025 Tobacco Screening 03/06/2026 03/06/2025 DTaP/Tdap/Td Vaccines (2 - Td or Tdap) 03/14/2028 03/14/2018, 07/06/2005, 04/16/1996 Hepatitis C Screening Completed 11/25/2020 Pneumococcal Vaccine: 50+ Years Completed 02/01/2023, 02/17/2014, 03/15/2008, Additional history exists Influenza Vaccine Completed 03/06/2025, , 03/22/2023, Additional history exists HIB Vaccines Aged Out [...] 2 VIEWS Routine 04/03/2025 9:00 AM EDT COVID-19 ID NOW (CAUSEY) Routine 04/03/2025 8:54 AM EDT COMPREHENSIVE METABOLIC PANEL Routine 04/03/2025 8:54 AM EDT CBC WITH AUTO DIFFERENTIAL Routine 04/03/2025 8:54 AM EDT INFLUENZA A B2 ID NOW (CAUSEY) Routine 04/03/2025 8:54 AM EDT POCT GLUCOSE Routine 03/06/2025 11:00 AM EDT Type 2 diabetes mellitus with other specified complication, without long-term current use of insulin (CMS/HCC) POCT GLYCATED HEMOGLOBIN, TOTAL Routine 02/04/2025 12:26 PM EDT Type 2 diabetes mellitus with hyperglycemia, with long-term current use of insulin (CMS/HCC) CT ABDOMEN PELVIS W CONTRAST Routine 01/20/2025 11:46 AM EDT URINALYSIS, COMPLETE, WITH REFLEX TO CULTURE Routine 01/20/2025 11:26 AM EDT BASIC METABOLIC PANEL Routine 01/16/2025 9:22 AM EDT URINALYSIS, COMPLETE Routine 01/16/2025 9:19 AM EDT CYTOPATH-CELL ENHANCED Routine 9:09 AM EDT LIPID PANEL, STANDARD Routine 11/17/2024 10:29 AM EDT HM COLONOSCOPY Routine 02/10/2023 PANORAMIC RADIOGRAPHIC IMAGE Routine 08/26/2021 12:00 AM EDT ZZZ HISTORICAL HEPATITIS C AB W/REFL TO HCV RNA, QN, PCR Routine 11/25/2020 10:49 AM EDT INTRAORAL - COMPLETE SERIES OF RADIOGRAPHIC IMAGES Routine 04/03/2009 12:00 AM EDT from Last 3 Months or Most Recently Relevant to Health Maintenance Results * XR Chest 2 Views (04/03/2025 9:00 AM EDT) Anatomical Region Laterality Modality Chest Radiographic Trang ging 04/03/2025 9:00 AM EDT Narrative 04/03/2025 9:10 AM EDT [address] [address] XRay Report Signed Patient: Josue Dawson MR#: [id number] : 1950 Acct:[id number] Age/Sex: 74 / M ADM Date: 04/03/25 Loc: HO.ED Attending Dr: Ordering Physician: Generic ED Physician Date of Service: 04/03/25 Procedure(s): XR chest 2V Accession Number(s): [id number] cc: Generic ED Physician; Name,Aneesh RIVERS Reason [...] Willoughby MD in OV> 04/03/25 0908 DD/ 09 TD/TT: 04/03/25 0905 Health Psychologist: Procedure Note Donotuseinterpreter, Image - 04/03/[address] [address] XRay Report Signed Patient: Josue DawsonMR#: [id number] : 1950cct:[id number] Age/Sex: 74 / MADM Date: 04/03/25 Loc: .ED Attending Dr: Ordering Physician: Generic ED Physician Date of Service: 04/03/25 Procedure(s): XR chest 2V Accession Number(s): [id number] cc: Generic ED Physician; Name,Aneesh RIVERS Reason [...] in OV> 04/03/25907 DD/ 9 TD/TT: 04/03/25904 Health Psychologist: [facility] External Provider IMG XR PROCEDURES Final Result * Influenza A B2 ID NOW (Causey) (04/03/2025 8:54 AM EDT) IDNOW SERIAL# [id number] [facility] Influenza A Negative Negative [facility] Influenza B2 Negative Negative [facility] Influenza A B2 Note See Note [facility] Comment:The Causey ID NOW In fluenza [...] LAB MICROBIOLOGY - GENERAL ORDERABLES Final Result [facility] [address] [place] [phone] * COVID-19 ID NOW (CAUSEY) (04/03/2025 8:54 AM EDT) IDBONNIEW SERIAL# [id number] [facility] COVID-19 TEST Negative Negative [facility] COVID-19 NOTE See Note [facility] Comment: Results are for the identification of SARS-CoV2 RNA. TheSARS-CoV2 RNA is generally detectable in respiratory samplesduring the acute phase of infection. Positive results areindicative of the presence of SARS-CoV-2 RNA; clinicalcorrelation with patient history and other diagnosticinformation is necessary to determine patient infectionstatus. Positive results do not rule out bacterial infectionor co- infection with other viruses.Testing facilities within the [facility] and [facility] are required to report all positive results [...] EDT us Generic External Data Provider LAB MOLECULAR MAME GNOSTICS ORDERABLES Final Result [facility] [address] [place] [phone] * (ABNORMAL) CBC auto differential (04/03/2025 8:54 AM EDT) White Blood Count 9.7 4.8 - 10.8 X10*3/uL [facility] Red Blood Count 5.01 4.60 - 5.80 X10*6/uL [facility] Hemoglobin 14.9 14.0 - 18.0 g/dl [facility] Hematocrit 44.0 42.0 - 52.0 % [facility] Mean Corpuscular Volume 87.8 80.0 - 98.0 fL [facility] Mean Corpuscular Hemoglobin 29.7 27.0 - 33.0 pg [facility] Mean Corpuscular HGB Conc 33.9 31.0 - 36.0 g/dl [facility] Red Cell Distribution Width 13.3 11.0 - 16.0 % [facility] Platelet Count 312 160 - 400 X10*3/uL [facility] Mean Platelet Volume 10.1 9.4 - 12.4 fL [facility] Neutrophils Percent Auto 64.8 45 - 73 % [facility] Imm Gran Pct Auto 0.9(H) 0.0 - 0.4 % [facility] Lymphocytes Percent Auto 25.2 20 - 40 % [facility] Monocytes Percent Auto 6.6 2 - 11 % [facility] Eosinophils Percent Auto 1.9 0 - 4 % [facility] Basophils Percent Auto 0.6 0 - 2 % [facility] NRBC Pct Auto 0.0 0.0 - 0.2 /100WBC [facility] Neutrophils Absolute Auto 6.3 2.0 - 8.3 x10*3/uL [facility] Imm Gran Abs Auto 0.09(H) 0.00 - 0.03 X10*3/uL [facility] Lymphocytes Absolute Auto 2.4 1.2 - 4.9 X10*3/uL [facility] Monocytes Absolute Auto 0.6 0.1 - 1.2 X10*3/uL [facility] Eosinophils Absolute Auto 0.2 0.0 - 0.4 X10*3/uL [facility] Basophils Absolute Auto 0.1 0.0 - 0.2 X10*3/uL [facility] NRBC Abs Auto 0.000 0.0 - 0.012 X10*3/uL [facility] 04/03/2025 8:54 AM EDT 04/03/2025 8:59 AM EDT us Generic External Data Provider LAB BLOOD ORDERAB LES Final Result [facility] [address] [place] [phone] [phone] * (ABNORMAL) Comprehensive Metabolic Panel (04/03/2025 8:54 AM EDT) Sodium 137 135 - 145 mmol/L [facility] Potassium 4.3 3.3 - 5.1 mmol/L [facility] Comment:Slight Hemolysis.Int erpret result with caution. Chloride 103 96 - 108 mmol/L [facility] Carbon Dioxide 27 22 - 29 mmol/L [facility] Anion Gap 11(L) 12 - 20 [facility] Urea Nitrogen (BUN) 21(H) 9 - 16 mg/dL [facility] Creatinine, Serum 1.14 0.5 - 1.4 mg/dL [facility] Creatinine Clr Calc Pharmacy 62.4 [facility] Comment:eGFR (calculated fro m the MDRD study equation) and eCrCl(calculated from the Cockcroft-Gault equation) are based ondifferent parameters and may not yield comparable results.If eCrCl result is absurd, please check patient'sheight/weight. Estimated Glomerular Filt Rate >60 [facility] Comment:Chronic Kidney Disea se: Estimated GFR < 60 mL/min/1.51w0Hgevyl Kidney Disease: Estimated GFR < 15 mL/min/1.73m2 Glucose 253(H) 60 - 115 mg/dL [facility] Calcium 9.8 8.4 - 10.2 mg/dL [facility] Bilirubin, Total 0.4 0.0 - 1.0 mg/dL [facility] Aspartate Amino Transferase 55(H) 5 - 37 U/L [facility] Comment:Slight Hemolysis.Int erpret result with caution. Alanine Aminotransferase 74(H) 0 - 40 U/L [facility] Total Protein 7.5 6.5 - 8.0 g/dL [facility] Albumin Level 3.9 3.5 - 5.0 g/dL [facility] Alkaline Phosphatase 63 39 - 117 U/L [facility] 04/03/2025 8:54 AM EDT 04/03/2025 8:59 AM EDT us Generic External Data Provider LAB BLOOD ORDERAB LES Final Result [facility] [address] [place] [phone] * (ABNORMAL) POCT Glucose (03/06/2025 11:00 AM EDT) Pathologist [facility] Glucose Blood, POC 320(A) 60 - 200 mg/dL QC Media Lot # [id number] Lot# Expiration Date Blood Capillary blood specimen / Unknown 03/06/2025 11:00 AM EDT Aneesh Oliveira MD POINT OF CARE TEST ENTER/EDIT OR DERABLES Final Result * (ABNORMAL) POCT HGB A1C (02/04/2025 12:26 PM EDT) Pathologist [facility] Hemoglobin A1C 8.7(A) 4.0 - 5.7 % Blood 02/04/2025 12:2 6 PM EDT Aneesh Name POINT OF CARE TEST ENTER/EDIT OR DERABLES Final Result * CT Abdomen Pelvis w/ Contrast (01/20/2025 11:46 AM EDT) Anatomical Region Laterality Modality Body, Pelvis, Abdomen Computed T omography 01/20/2025 11:4 6 AM EDT Narrative 01/20/2025 11:48 AM EDT [address] [address] [address] Scan Report Signed Patient: Josue Dawson MR#: [id number] : 1950 Acct:[id number] Age/Sex: 74 / M ADM Date: 01/20/25 Loc: HO.ED Attending Dr: Ordering Physician: Armaan Clark Date of Service: 01/20/25 Procedure(s): CT abdomen pelvis w IV con Accession Number(s): [id number] cc: Armaan Clark; Name,Aneesh RIVERS Report Number: [id number]: Total DLP = 695.00 mGy-cm CLINICAL HISTORY: back pain and lower abd pain CT abdomen and pelvis with contrast Comparison: CT/REG/SR - CT ABDOMEN PELVIS WITHOUT IV CONTRAST - 08/22/24 08:51 EDT Findings: The heart is enlarged. Calcific atherosclerosis, including the coronary arteries. Lung bases are clear other than subsegmental atelectasis. Left worse than right gynecomastia. Cholecystectomy. Right renal 2.5 cm cyst. Other abdominal solid organs are unremarkable. Tiny fat containing umbilical hernia. No bowel obstruction. Appendectomy. Prostatomegaly. Unremarkable urinary bladder. Tiny fat containing left indirect inguinal hernia. Degenerative change of the spine and hips. IMPRESSION: No acute findings. Chronic and incidental findings as above. This document has been electronically signed by: Fan Langley DO on 01/20/2025 11:46:09 Dictated By: Fan Langley MD Signed By: <Electronically signed by Fan Langley MD in OV> 01/20/25 1147 DD/ 1146 TD/TT: 01/20/25 1146 Health Psychologist: Procedure Note Donotuseinterpreter, Image - 01/20/[address] [address] [address] Scan Report Signed Patient: Josue Dawson#: [id number] : 1950cct:[id number] Age/Sex: 74 / MADM Date: 01/20/25 Loc: HO.ED Attending Dr: Ordering Physician: Armaan Clark Date of Service: 01/20/25 Procedure(s): CT abdomen pelvis w IV con Accession Number(s): [id number] cc: Armaan Clark; Name,Aneesh RIVERS Report Number: [id number]: Total DLP = 695.00 mGy-cm CLINICAL HISTORY: back pain and lower abd pain CT abdomen and pelvis with contrast Comparison: CT/REG/SR - CT ABDOMEN PELVIS WITHOUT IV CONTRAST - 08/22/24 08:51 EDT Findings: The heart is enlarged. Calcific atherosclerosis, including the coronary arteries. Lung bases are clear other than subsegmental atelectasis. Left worse than right gynecomastia. Cholecystectomy. Right renal 2.5 cm cyst. Other abdominal solid organs are unremarkable. Tiny fat containing umbilical hernia. No bowel obstruction. Appendectomy. Prostatomegaly. Unremarkable urinary bladder. Tiny fat containing left indirect inguinal hernia. Degenerative change of the spine and hips. IMPRESSION: No acute findings. Chronic and incidental findings as above. This document has been electronically signed by: Fan Langley DO on 01/20/2025 11:46:09 Dictated By: Fan Langley MD Signed By: <Electronically signed by Fan Langley MD in OV> 01/20/25 1147 DD/ 1146 TD/TT: 01/20/25 1146 Health Psychologist: [facility] External Provider IMG CT PROCEDURES Edited Result - Final * (ABNORMAL) Urinalysis, Complete, with Reflex to Culture (01/20/2025 11:26 AM EDT) Color Urine Yellow [facility] Appearance Urine Clear [facility] PH 7.0 5.0 - 9.0 [facility] Glucose Urine UA >=1000(A) Negative mg/dL [facility] Urine Blood Negative Negative [facility] Specific [place] - Urine 1.025 1.005 - 1.025 [facility] Urine Protein 300 (3+)(A) Neg-Trace mg/dL [facility] Urine Ketones Negative Negative mg/dL [facility] Nitrite Urine Negative Negative [facility] Leukocyte Esterase Urine Negative Negative [facility] RBC Urine 0-2 0 - 2 /HPF [facility] Urine WBC 0-5 0 - 5 /HPF [facility] Urine Squamous Epithelial Cell 0-2 0 - 2 /HPF [facility] Urine Bacteria None Seen None Seen [facility] Hyaline Casts, Urine 0-2 0 - 2 /LPF [facility] 01/20/2025 11:2 6 AM EDT 01/20/2025 11:46 AM EDT Narrative [facility] - 01/20/2025 11:56 AM EDT [id number], [employer] us Generic External Data Provider LAB URINE ORDERAB LES Final Result Performing Organization Address [facility] Hospital/[facility]/ZIP Co de Phone Number [facility] [address] [place] [phone] * (ABNORMAL) Basic Metabolic Panel (01/16/2025 9:22 AM EDT) Sodium 139 135 - 145 mmol/L [facility] Potassium 3.7 3.3 - 5.1 mmol/L [facility] Chloride 102 96 - 108 mmol/L [facility] Carbon Dioxide 29 22 - 29 mmol/L [facility] Anion Gap 12 12 - 20 [facility] Urea Nitrogen (BUN) 23(H) 9 - 16 mg/dL [facility] Creatinine, Serum 1.08 0.5 - 1.4 mg/dL [facility] Estimated Glomerular Filt Rate >60 [facility] Comment:Chronic Kidney Disea se: Estimated GFR < 60 mL/min/1.12w2Wfwyvs Kidney Disease: Estimated GFR < 15 mL/min/1.73m2 Glucose 170(H) 60 - 115 mg/dL [facility] Calcium 10.0 8.4 - 10.2 mg/dL [facility] 01/16/2025 9:22 AM EDT 01/16/2025 9:22 AM EDT us Generic External Data Provider LAB BLOOD ORDERAB LES Final Result Performing Organization Address City/[facility]/ZIP Co de Phone Number [facility] [address] [place] [phone] [phone] * (ABNORMAL) Urinalysis Complete (01/16/2025 9:19 AM EDT) Color Urine Yellow [facility] Appearance Urine Clear [facility] PH 5.5 5.0 - 9.0 [facility] Glucose Urine UA >=1000(A) Negative mg/dL [facility] Urine Blood Negative Negative [facility] Specific [place] - Urine 1.020 1.005 - 1.025 [facility] Urine Protein 300 (3+)(A) Neg-Trace mg/dL [facility] Urine Ketones Negative Negative mg/dL [facility] Nitrite Urine Negative Negative [facility] Leukocyte Esterase Urine Negative Negative [facility] RBC Urine 0-2 0 - 2 /HPF [facility] Urine WBC 0-5 0 - 5 /HPF [facility] Urine Squamous Epithelial Cell 0-2 0 - 2 /HPF [facility] Urine Bacteria None Seen None Seen [facility] Hyaline Casts, Urine 3-5 0 - 2 /LPF [facility] 01/16/2025 9:19 AM EDT 01/16/2025 9:48 AM EDT us Generic External Data Provider LAB URINE ORDERAB LES Final Result Performing Organization Address City/State/[facility] Co de Phone Number [facility] [address] [place] [phone] * Cytopath-cell enhanced (01/16/2025 9:09 AM EDT) 01/16/2025 9:09 AM EDT 01/17/2025 8:15 AM EDT Narrative [facility] - 01/17/2025 3:04 PM EDT ----- ------- Name: Josue Dawson Age/Sex: 74/M : 1950 Unit#: [id number] Attend Dr: Jd Painter MD Re01/16/25 Status: DEP [facility]F [facility] Disch: ----- ------- SPEC : [id number] RECD: 01/17/25 STATUS: ELLA VIDAL NUM: [id number] JUWAN: 01/16/[address] [facility] [address]: Jd Painter MD ENTERED: 01/17/25 SP TYPE: Cytology OT DR: Aneesh Oliveira MD ORDERED: Cyto-enhanced Diagnosis [...] developed and their performance characteristics determined by [facility]. They have not been cleared or approved by the U.S. Food and Drug Administration (FDA). However, the FDA has determined that such clearance or approval is not necessary. This laboratory is certified under the Clinical Laboratory Improvement Amendments of 1988 (CLIA) as qualified to perform high complexity clinical laboratory testing. Copies To: Jd Painter MD [facility] [address] [place] [address] Dr [address] [place] [address] [email or web address] (acquired by [employer] in 2014) Name,Aneesh RIVERS [address] [place] [address] [place] [address] CONTINUED ON NEXT PAGE ----- ------- Name: Josue Dawson Age/Sex: 74/M : 1950 Unit#: [id number] Attend Dr: Jd Painter MD Re01/16/25 Status: DEP REF Location: [facility] Disch: ----- ------- SPEC : [id number] RECD: 01/17/25 STATUS: ELLA MCKOY NUM: [id number] JUWAN: 01/16/[address]: Jd Painter MD ENTERED: 01/17/25 SP TYPE: Cytology OTHR DR: Aneesh Oliveira MD ORDERED: Cyto-enhanced ----- ------- Signed (signature on file) Yevgeniy Avila MD 01/17/25 1504 ----- ------- END OF REPORT us Generic External Data Provider LAB CYTOLOGY ZENAIDA MAYER Final Result [facility] [address] [place] [phone] * (ABNORMAL) Lipid Panel, Standard (11/17/2024 10:29 AM EDT) Triglycerides 129 <150 mg/dL [facility] Comment:Desirable Triglyceri de: less than 150 mg/dLBorderline High Triglyceride 150-199 mg/dLHigh Triglyceride: 200-499 mg/dLVery High Triglyceride: greater than or equal to 5OO mg/dL Cholesterol 179 <200 mg/dL [facility] Comment:Desirable Cholestero l: less than 200 mg/dLBorderline High Cholesterol: 200-239 mg/dLHigh Cholesterol: greater than 239 mg/dL LDL Cholesterol Calculated 115(H) <100 mg/dL [facility] Comment:Desirable LDL: less than 100 mg/dLNear Optimal/Above Optimal LDL: 110- 129 mg/dLBorderline High LDL: 130-159 mg/dLHigh LDL: 160-189 mg/dLVery High LDL: greater than or equal to 190 mg/dL HDL Cholesterol 39(L) >40 mg/dL [facility] Comment:Desirable HDL: great er than 40 mg/dL Note: This HDL assay may give artificially low results in patients with liver disease. 11/17/2024 10:2 9 AM EDT 11/17/2024 10:29 AM EDT us Generic External Data Provider LAB BLOOD ORDERAB LES Final Result [facility] [address] [place] [address] [phone] * (ABNORMAL) Colonoscopy (02/10/2023) Colonoscopy Abnormal(A ) Normal Aneesh Oliveira MD HEALTH MAINTENANCE Final Result * HEPATITIS C AB W/REFL TO HCV RNA, QN, PCR (11/25/2020 10:49 AM EDT) HEPATITIS C ANTIBODY NON-REACT TOM NON-REACT TOM [facility] INDEX 0.00 <1.00 [facility] Comment: HCV antibody was non-reactive. There is no laboratory evidence of HCV infection. In most cases, no further action is required. However, if recent HCV exposure is suspected, a test for HCV RNA (test code 11982) is suggested. For additional information please refer to http://education.[employer]/faq/JUC03r8 (This link is being provided for informational/ educational purposes only.) 11/25/2020 10:4 9 AM EDT Aneesh Oliveira MD HISTORICAL/NON ORDERABLE LABS Fi nal Result Performing Organization Address City/[facility]/ZIP Co de Phone Number [facility] [address] from Last 3 Months or Most Recently Relevant to Health Maintenance Insurance [facility] DUAL COMPLETE DENTAL - [facility] Care Teams Plant And Equipment Worker Relationship Specialty Start Date End Date Name, MD Aneesh [address] [place] [address] PCP - General Family Medicine 02/14/18 Sandra Rasheed, PharmD [address] [place] [phone] Pharmacist Internal Medicine 08/24/24
--- OUTSIDE RECORDS SUMMARY | 2025-04-03 16:18 | XMS_ITS | Encounter Summary ---
Author Organization [employer] Address [address] [place] [address] Care Team Providers Care Ribbing Machine Operator Name Role Phone Name, Aneesh RIVERS Primary Care Provider [phone] Sandra Rasheed PharmD Unavailable [phone] Reason for Visit * Reason Comments Med Refill Encounter Details Date Type Department Care Team (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 ([facility]) Social History Tobacco Use Types [...] Description 04/16/2025 10:00 AM EST Medication Management [facility] [address] [place] [address] Sandra Rasheed, PharmD [address] [place] [address] 05/29/2025 9:30 AM EST Office Visit [facility] [address] [place] [phone] Name, MD Aneesh [address] [place] [address] 06/03/2025 9:30 AM EST Office Visit [facility] [address] [place] [phone] Jayne Huffman, OD [address] [place] [address] documented as of this encounter Visit Diagnoses Diagnosis Hypertension, unspecified type Prostatism Unspecified hyperplasia of prostate without urinary obstruction and other lower urinary tract symptoms (LUTS) Type 2 diabetes mellitus with hyperglycemia (HCC) 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
== END 2025-04-03 12:03 | disposition home or self-care (01) ==
PROVIDERS: Emergency Provider Emergency Medicine; PCP Internal Medicine Geriatric Medicine
DX: R05.9 Cough, unspecified (principal)
CPT/HCPCS: 36415; 71046; 80053; 85025; 87502; 87635; 93005; 99283

== ENCOUNTER → 2025-04-03 08:46 | Outpatient (BNV) | payer OTHER, SELFPAY | PROVIDERS: Emergency Provider Emergency Medicine; PCP Internal Medicine Geriatric Medicine; Visit Provider Internal Medicine Cardiovascular Disease | DX: I44.0 Atrioventricular block, first degree (principal) | CPT/HCPCS: 93010 ==

== ENCOUNTER → 2025-04-03 09:00 | Outpatient (BNV) | payer OTHER, SELFPAY | PROVIDERS: PCP Internal Medicine Geriatric Medicine; Visit Provider Radiology Diagnostic Radiology | DX: R05.9 Cough, unspecified (principal); R06.02 Shortness of breath | CPT/HCPCS: 71046 ==

== ENCOUNTER 2025-04-03 19:27 | Emergency (ER) | payer OTHER, SELFPAY ==
--- NOTE | ~2025-04-03 | XR_ITS ---
CLINICAL HISTORY: constipation?pain 1 view abdomen Comparison: None provided Findings: No significant bowel distention demonstrated. No significant increased stool noted. No free air. No abnormal calcification. No acute bony abnormalities. Multiple right surgical clips. Impression: No significant abnormalities. This document has been electronically signed by: Jason Segovia MD on 04/03/2025 23:08:31
[2025-04-03 19:35] VITALS: BP 210/100; PULSE 90; O2SAT 97
[2025-04-03 19:36] VITALS: BP 182/83; PULSE 77; RESP 20; TEMP 36.5; O2SAT 98; BMI 33.7
--- NOTE | 2025-04-03 19:37 | ED.GENADULT ---
HPI - General Adult General Chief complaint: Nausea/Vomiting/Diarrhea Stated complaint: nausea, vomiting, started antibiotics x1hr ago Time Seen by Provider: 04/03/25 22:12 Source: patient Limitations: language barrier History of Present Illness ED Provider: Cherelle Peralta PA-C HPI narrative: 74-year-old male with a history of CKD, NAFLD, PAD, BCC, HLD, HTN, and DM, who was seen earlier in the emergency room and treated for bronchitis, presents with nausea vomiting. Patient states he took his antibiotics on an empty stomach then began to subsequently vomit. Patient states his abdomen hurts after vomiting. Denies onset of diarrhea or fever. Patient states he thinks he may be constipated. Associated mild abdominal distention, denies inability to pass flatus. Related Data Home Medications ?Medication ?Instructions ?Recorded ?Confirmed aspirin 81 mg tablet,delayed 81 mg PO DAILY 05/07/20 01/22/25 release blood sugar diagnostic #10 ea 05/07/20 01/22/25 chlorthalidone 50 mg tablet 50 mg PO QAM 05/07/20 01/22/25 insulin syringe-needle U-100 1 mL #10 ea 05/07/20 01/22/25 29 gauge x 1/2 lancets #100 ea 04/06/23 01/22/25 lancets 30 gauge (OneTouch #100 ea 04/06/23 01/22/25 UltraSoft 2 Lancet) spironolactone 25 mg tablet 25 mg PO QAM 04/06/23 01/22/25 tamsulosin 0.4 mg capsule 0.8 mg PO BEDTIME 04/06/23 01/22/25 verapamil 120 mg tablet,extended 120 mg PO QAM 04/06/23 01/22/25 release amlodipine 10 mg tablet 10 mg PO QAM 11/10/23 01/22/25 canagliflozin 100 mg tablet 100 mg PO DAILY 06/11/24 01/22/25 (Invokana) gabapentin 100 mg capsule 200 mg PO BID 11/19/24 01/22/25 hydralazine 25 mg tablet 25 mg PO TID 01/22/25 01/22/25 semaglutide 2 mg/dose (8 mg/3 mL) 2 mg subcut QWEEK 01/22/25 01/22/25 subcutaneous pen injector (Ozempic) Previous Rx's ?Medication ?Instructions ?Recorded flash glucose scanning reader #1 ea 04/14/23 (FreeStyle Willy 2 [place]) flash glucose sensor (FreeStyle #2 ea 04/14/23 Willy 2 Sensor kit) metformin 1,000 mg tablet 1,000 mg PO BID #60 tabs 04/21/23 insulin glargine U-300 conc 300 80 unit (0.2667 mL) subcut BEDTIME 05/24/23 unit/mL (3 mL) subcutaneous pen #6 mL (Toujeo Max U-300 SoloStar) pen needle, diabetic 32 gauge x #100 ea 07/18/23 (UltiCare Pen Needle) insulin lispro 100 unit/mL See Rx Instructions subcut 07/19/23 subcutaneous pen (Humalog KwikPen .COMPLEX #30 mL (U-100) Insulin) clopidogrel 75 mg tablet (Plavix) 75 mg PO DAILY #90 tabs 03/07/24 gabapentin 100 mg capsule 100 mg PO TID #30 caps 01/20/25 lidocaine 5 % topical patch 1 patch topical DAILY PRN pain #15 01/20/25 ea amoxicillin 875 mg-potassium 1 tab PO BID 7 days #14 tabs 04/03/25 clavulanate 125 mg tablet doxycycline hyclate 100 mg tablet 100 mg PO BID 7 days #14 tabs 04/03/25 ondansetron 4 mg disintegrating 4 mg PO Q8H PRN nausea and 04/04/25 tablet vomiting #15 tabs Allergies Allergy/AdvReac Type Severity Reaction Status Date / Time lisinopril (LISINOPRIL) Allergy Severe ANGIOEDEMA Verified 04/03/25 19:41 prednisone (PREDNISONE) Allergy Mild ITCHY Verified 04/03/25 19:41 Review of Systems Review of Systems: Yes all other systems are reviewed and are negative Constitutional: Constitutional: Denies fatigue and Denies fever(s) Cardiovascular: Cardiovascular: Denies chest pain and Denies dyspnea Respiratory: Respiratory: Denies dyspnea Gastrointestinal: Gastrointestinal: Reports abdominal pain, Reports bloating, Reports constipation, Denies diarrhea, Reports nausea and Reports vomiting Endocrine: Endocrine: Denies fatigue PMFSH Past Medical History Attestation statement: The following information was validated with the patient. Medical History NAFLD (nonalcoholic fatty liver disease) Transaminitis Basal cell carcinoma (BCC) Skin lesion of left lower extremity Heart murmur Familial hypocalciuric hypercalcemia Multinodular thyroid Vitamin D deficiency HLD (hyperlipidemia) HTN (hypertension) T2DM (type 2 diabetes mellitus) Surgical History Hx of melanoma excision Hx of esophagogastroduodenoscopy Hx of colonoscopy Hx of appendectomy Hx of cholecystectomy Family History Family History Father CVD (cardiovascular disease) Diabetes Brother CVD (cardiovascular disease) Diabetes FH: heart attack Social History Social History Household Members: Family Housing: House Do you presently have visiting nurse or other home services: Yes (visiting nurse 2x week) Alcohol intake: never Patient Tobacco Use Status: Never used Tobacco Advance Directives: No Advance Directives Information Provided: Yes service: No Current occupational status: unemployed Physical Exam ED Vital Signs: Vital Signs - 24 hr 04/03/25 19:36 04/03/25 22:18 04/04/25 01:06 Temperature 97.7 F 97.7 F 97.7 F Pulse Rate 77 73 73 Respiratory Rate 20 16 16 Blood Pressure 182/83 H 175/67 H 175/67 H Pulse Oximetry 98 98 98 Oxygen Delivery Method Room Air Room Air Room Air BMI result Body Mass Index 33.7 Const Other: Alert well-appearing Orientation/consciousness: patient oriented x3 Resp Effort & Inspection: normal respiratory effort Cardio Other: Normal peripheral perfusion GI Other: Abdomen subtly bloated, generalized tenderness to palpation without guarding, overall benign exam Skin Other: Warm dry no rash Neuro General: patient oriented x3, gait normal, no focal motor deficits and CN's II-XI intact bilaterally Psych Other: Cooperative Course Course Course Narrative: This is a Rapid Medical Examination (RME) performed by Martinez Luna PA-C in triage. Full HPI, ROS, assessment and treatment plan per primary provider in the Main ED. Hx: 74 yo M hx of CKD, NAFLD, PAD, BCC, HLD, HTN, DM BIBA from home for eval of nausea/vomiting s/p taking his antbiotic this morning. patient evaluated at our facility this morning, diagnosed with bronchitis, discharged home with doxycycline and Augmentin. Reports taking 1st dose around 1330. Did not take this with food. Reported feeling unwell after with nausea and vomiting since. Called EMS. PE/vitals: Hypertensive - took BP meds this morning however vomited them up. Plan: Labs Reevaluation(s) Reevaluation #1: P.o. challenge now Reevaluation #2: Ate, drank, feels well, eager for discharge, his daughters are at bedside and are in agreement with the plan. Medications Administered Discontinued Medications Generic Name Dose Route Start Last Admin Trade Name Ulisesq PRN Reason Stop Dose Admin Sodium Chloride 500 mls @ 500 mls/hr 04/03/25 22:22 04/04/25 00:05 Ns IV 04/03/25 23:21 Infused .Q1H ONE Infusion Ondansetron HCl 4 mg 04/03/25 22:22 04/03/25 23:05 Ondansetron Hcl 4 Mg/2 Ml Vial IVPUSH 04/03/25 22:23 4 mg ONCE ONE Administration Medical Decision Making Medical Decision Making MDM Narrative: 74-year-old male with a history of CKD, NAFLD, PAD, BCC, HLD, HTN, and DM, who was seen earlier in the emergency room and treated for bronchitis, presents with nausea vomiting. Patient states he took his antibiotics on an empty stomach then began to subsequently vomit. Patient states his abdomen hurts after vomiting. Denies onset of diarrhea or fever. Patient states he thinks he may be constipated. Associated mild abdominal distention, denies inability to pass flatus. Problem: Diabetes, age, active treatment for bronchitis History: Per patient I have considered the following differential diagnoses: Antibiotics side-effect, acute intra-abdominal pathology, bowel obstruction, constipation Plan: Patient likely vomited due to taking the antibiotic as an empty stomach. His abdominal exam was overall benign, however he does have some degree of obstructive symptoms, obtaining a KUB. Giving fluid and Zofran. Screening labs were obtained and are unremarkable. I do not feel he needs a CT scan of the abdomen. My plan is to p.o. challenge, if he can tolerate oral intake, we will send I have independently reviewed the following tests: Labs: Slight leukocytosis, left shift noted, not anemic, no electrolyte abnormalities, viral panel negative KUB: Findings: No significant bowel distention demonstrated. No significant increased stool noted. No free air. No abnormal calcification. No acute bony abnormalities. Multiple right surgical clips. Impression: No significant abnormalities. Differential Diagnosis Differential Diagnoses: The differential diagnosis associated with the presentation includes See medical decision-making Admission/Observation Consideration of admission/observation: Escalation of care including admission/observation considered Not applicable Lab Data MDM Lab Attestation statement: I reviewed the patient's lab results. 04/03/25 19:49 04/03/25 19:49 Labs: Lab Results 04/03/25 Range/Units 19:49 WBC 13.1 H (4.8-10.8) X10*3/uL RBC 5.20 (4.60-5.80) X10*6/uL Hgb 15.3 (14.0-18.0) g/dl Hct 44.7 (42.0-52.0) % MCV 86.0 (80.0-98.0) fL MCH 29.4 (27.0-33.0) pg MCHC 34.2 (31.0-36.0) g/dl RDW 13.0 (11.0-16.0) % Plt Count 326 (160-400) X10*3/uL MPV 9.9 (9.4-12.4) fL Immature Gran % (Auto) 0.9 H (0.0-0.4) % Neut % (Auto) 76.5 H (45-73) % Lymph % (Auto) 14.0 L (20-40) % Grand % (Auto) 7.3 (2-11) % Eos % (Auto) 0.9 (0-4) % Baso % (Auto) 0.4 (0-2) % Lymph # (Auto) 1.8 (1.2-4.9) X10*3/uL Grand # (Auto) 1.0 (0.1-1.2) X10*3/uL Eos # (Auto) 0.1 (0.0-0.4) X10*3/uL Baso # (Auto) 0.1 (0.0-0.2) X10*3/uL Abs Immat Gran (auto) 0.12 H (0.00-0.03) X10*3/uL Absolute Neuts (auto) 10.0 H (2.0-8.3) x10*3/uL Absolute Nucleated RBC 0.000 (0.0-0.012) X10*3/uL Nucleated RBC % (auto) 0.0 (0.0-0.2) /100WBC Sodium 138 (135-145) mmol/L Potassium 3.8 (3.3-5.1) mmol/L Chloride 101 (96-108) mmol/L Carbon Dioxide 23 (22-29) mmol/L Anion Gap 18 (12-20) BUN 24 H (9-16) mg/dL Creatinine 1.12 (0.5-1.4) mg/dL Estim Creat Clear Calc 62.3 Estimated GFR > 60 Random Glucose 250 H (60-115) mg/dL Calcium 9.8 (8.4-10.2) mg/dL Magnesium 1.7 (1.6-2.6) mg/dL Total Bilirubin 0.4 (0.0-1.0) mg/dL AST 65 H (5-37) U/L ALT 86 H (0-40) U/L Alkaline Phosphatase 66 (39-117) U/L Total Protein 7.4 (6.5-8.0) g/dL Albumin 4.0 (3.5-5.0) g/dL Radiology Impression Discussion of test interpretation with radiology: I have reviewed the radiologist's reading. Discharge Plan Discharge Clinical Impression: Nausea & vomiting Patient Disposition: Home, Self-Care Instructions: Acute Nausea and Vomiting (ED) Additional Instructions: You were treated for your nausea vomiting, you responded to treatment. You were able to eat and drink prior to discharge. Make sure to take your antibiotics for your pneumonia, with food, to prevent nausea /vomiting. Follow up with your primary care provider as needed. Prescriptions: New ondansetron 4 mg tablet,disintegrating 4 mg PO Q8H PRN (Reason: nausea and vomiting) Qty: 15 0RF No Action metformin 1,000 mg tablet 1,000 mg PO BID Qty: 60 3RF Toujeo Max U-300 SoloStar 300 unit/mL (3 mL) insulin pen 80 unit subcut BEDTIME Qty: 6 2RF (DME) pen needle, diabetic [UltiCare Pen Needle] 32 gauge x 5/32 needle See Rx Instructions .ROUTE .COMPLEX Qty: 100 11RF Dose Instruction: USE DIRECTED FOUR TIMES DAILY Rx Instructions: USE DIRECTED FOUR TIMES DAILY insulin lispro [Humalog KwikPen Insulin] 100 unit/mL insulin pen See Rx Instructions subcut .COMPLEX Qty: 30 3RF Rx Instructions: Inject 30 units before breakfast, 35 units before lunch and 35 units before dinner subcutaneously; gabapentin 100 mg capsule 100 mg PO TID Qty: 30 0RF lidocaine 5 % adhesive patch,medicated 1 patch topical DAILY PRN (Reason: pain) Qty: 15 0RF Rx Instructions: leave on most painful area for up to 12 hrs doxycycline hyclate 100 mg tablet 100 mg PO BID 7 Days Qty: 14 0RF amoxicillin-pot clavulanate 875-125 mg tablet 1 tab PO BID 7 Days Qty: 14 0RF clopidogrel [Plavix] 75 mg tablet 75 mg PO DAILY Qty: 90 1RF aspirin 81 mg tablet,delayed release (DR/EC) 81 mg PO DAILY (DME) insulin syringe-needle U-100 1 mL 29 gauge x 1/2 syringe See Rx Instructions .ROUTE QID Qty: 10 Rx Instructions: As directed chlorthalidone 50 mg tablet 50 mg PO QAM (DME) blood sugar diagnostic Strip See Rx Instructions Not Applicable TID Qty: 10 Rx Instructions: As directed gabapentin 100 mg capsule 200 mg PO BID (DME) FreeStyle Willy 2 Sensor Kit See Rx Instructions .Route Qty: 2 4RF Rx Instructions: As directed change every 14 days (DME) FreeStyle Willy 2 [place] Misc See Rx Instructions .Route Qty: 1 0RF Rx Instructions: As directed amlodipine 10 mg tablet 10 mg PO QAM verapamil 120 mg tablet extended release 120 mg PO QAM spironolactone 25 mg tablet 25 mg PO QAM tamsulosin 0.4 mg capsule 0.8 mg PO BEDTIME (DME) lancets [OneTouch UltraSoft 2 Lancet] 30 gauge misc See Rx Instructions .ROUTE TID Qty: 100 Rx Instructions: As directed (DME) lancets Misc See Rx Instructions .ROUTE TID Qty: 100 Rx Instructions: As directed Invokana 100 mg tablet 100 mg PO DAILY hydralazine 25 mg tablet 25 mg PO TID Ozempic 2 mg/dose (8 mg/3 mL) pen injector 2 mg subcut QWEEK Interventions: ED Discharge Assessment Last Done: 04/04/25 01:06 Discharge Date/Time: 04/04/25 01:06 Print Language: Tajik
[2025-04-03 20:07] LABS: MANUAL DIFF FLAG NO
[2025-04-03 20:09] LABS: Hematocrit 44.7 % (42.0-52.0); Hemoglobin 15.3 g/dl (14.0-18.0); Imm Gran Abs Auto 0.12 X10*3/uL (0.00-0.03); Imm Gran Pct Auto 0.9 % (0.0-0.4); Lymphocytes Absolute Auto 1.8 X10*3/uL (1.2-4.9); Mean Corpuscular HGB Conc 34.2 g/dl (31.0-36.0); Mean Corpuscular Hemoglobin 29.4 pg (27.0-33.0); Mean Corpuscular Volume 86.0 fL (80.0-98.0); NRBC Abs Auto 0.000 X10*3/uL (0.0-0.012); NRBC Pct Auto 0.0 /100WBC (0.0-0.2); Platelet Count 326 X10*3/uL (160-400); Red Blood Count 5.20 X10*6/uL (4.60-5.80); White Blood Count 13.1 X10*3/uL (4.8-10.8)
[2025-04-03 20:35] LABS: Alanine Aminotransferase 86 U/L (0-40); Albumin Level 4.0 g/dL (3.5-5.0); Alkaline Phosphatase 66 U/L (39-117); Anion Gap 18 (12-20); Aspartate Amino Transferase 65 U/L (5-37); Blood Urea Nitrogen 24 mg/dL (9-16); Calcium 9.8 mg/dL (8.4-10.2); Carbon Dioxide 23 mmol/L (22-29); Chloride 101 mmol/L (96-108); Creatinine Clr Calc Pharmacy 62.3; Estimated Glomerular Filt Rate > 60; Magnesium 1.7 mg/dL (1.6-2.6); Potassium 3.8 mmol/L (3.3-5.1); Sodium 138 mmol/L (135-145); Total Protein 7.4 g/dL (6.5-8.0)
[2025-04-03 22:18] VITALS: BP 175/67; PULSE 73; RESP 16; TEMP 36.5; O2SAT 98
--- OUTSIDE RECORDS SUMMARY | 2025-04-03 22:48 | XMS_ITS | Data Portability ---
Author Organization [place] [facility], Allergy Address [address] [facility] [address] [place] [id number] Care Team Providers Care Manager Contracting Name Role Phone NAME, LAURENT Primary Care Provider [phone] Assessment Encounter Date Assessment Date Assessment LastModified [...] vocal quality. I recommended he see a cannon fire direction specialist, voice specalist, to evaluate him and see if he would be a good candidate for a more permanent medialization procedure. Patient is willing and interested to travel to [place] to hear options. - Referral to [facility] Otolaryngology - Dr. Stafford or Dr. Machuca for discussion [email or web address] Not available 05/04/2024 08:27:45 Plan of Treatment Reminders Order Date Submit Date Provider Last Modified By Organization Details Last Modified Time Details Appointments None recorded. Lab None recorded. Referral otolaryngol ogist referral - Attn: Birgit. Dr. Machuca or Dr. Stafford - bilateral vocal cord paralysis. 2023 024 [email or web address] 2 [facility] Otolaryngolog y, [address] [facility] [address], [facility], [place], [address], 4 10:41:11 Procedures None recorded. Surgeries None recorded. Imaging None recorded. Medication Orders None recorded. Patient TargetsNo targets recorded. Patient InstructionsNo instructions recorded. 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 Dr. Machuca or Dr. Stafford - bilateral vocal cord paralysis. Referring Physician: Ryan Maya, Otolaryngology, Encounter Date: 05/03/2024 Problems Name Problem SNOMED Code Status Onset Date Resolution Date Notes Provider Name and Address Organization Details Recorded Time Paralysis of larynx 47191652 Active 2018 Paralysis of vocal cords and larynx, unspecifie d; Note: Date Diagnosed: 12/25/2018 2:49 PM (J38.00) Not Available [facility] 4 03:24:49 Dysphonia 75964103 Active 2018 Hoarseness ; Note: Date Diagnosed: 12/25/2018 2:49 PM (R49.0) Not Available [facility] 4 03:24:49 Simple goiter 285578740 Active 2018 Goiter NOS; Note: Date Diagnosed: 12/25/2018 2:49 PM (E04.9) Not Available [facility] 4 03:24:49 Paralysis of larynx 68456460 Active 2023 RYAN MAYA MD [address] [place] [address], [phone] , [facility] 4 08:24:41 Problem Notes None recorded. Procedures Surgical History Date Name Laterality Status Provider Name and Address Organization Details Recorded Time 05/03/20 24 Fiberoptic Laryngoscopy (Comprehensive) completed RYAN MAYA MD [address] [place] [address], [place], [phone], [facility] 05/04/2024 08:24:07 Imaging Results None recorded. [...] Updated DateTime 05/03/2024 167.64 cm 34.7 kg/m2 35035.36 g Dimagiovanny Ramírez [place] [facility] 05/03/2024 13:28:04 Social History None recorded. Functional Status None recorded. Mental Status None recorded. Family History Nothing Reported. Medical History No medical history recorded. Past Encounters Encounter ID Performer Location Encounter Start Date Encounter Closed Date Diagnosis/Indication Diagnosis SNOMED-CT Code Diagnosis ICD10 Code Diagnosis IMO Codes Diagnosis Note [id number] RYAN MAYA MD [facility] [address] [phone] 05/03/2024 13:04:26 05/03/2024 16:54:58 Paralysis of larynx 01247232 J38.02 Dysphonia 39740508 R49.9 Health Concerns Section Related Observation LastModified by Organization Detai ls LastModified Time None Recorded Concern Status LastModified by Organization Details LastModified Time None Recorded Advance Directives Directive None Recorded Payers Insurance Date Sequence Insurance Name Policy Number Policy Hood Covered Member ID Hood Member ID Guarantor Name 05/03/2024 1 [facility] (MEDICARE REPLACEMENT/ ADVANTAGE - HMO) Josue Mace [id number] Josue Mace 05/02/2024 2 [place] [facility] Josue Mace [id number] Josue Mace Notes Date Note Type Note Provider Name and Address Organization Details Recorded Time 05/03/2024 text/html ROS as noted in the HPI 73yo gentleman who presents today for evaluation of bilateral vocal cord paralysis and dysphonia. He has had difficulty with his voice for about 5 years. He underwent a traumatic intubation at [facility] in 2018 in the setting of an anaphylactic event. Following, this resulted in dysphonia and dyspnea with exertion. He was seen by otolaryngology in [place] - Dr. John Coppola. At that time, [...] aspirin 81 & clopidogrel. RYAN MAYA MD [address] [place] [address], [place], [phone], [place] [facility] 05/04/2024 20:31:01
[2025-04-04 01:06] VITALS: BP 175/67; PULSE 73; RESP 16; TEMP 36.5; O2SAT 98
== END 2025-04-04 01:06 | disposition home or self-care (01) ==
PROVIDERS: Physician Assistant Medical; Emergency Provider Emergency Medicine; PCP Internal Medicine Geriatric Medicine
DX: K59.00 Constipation, unspecified (principal); R11.2 Nausea with vomiting, unspecified; R19.7 Diarrhea, unspecified; J40 Bronchitis, not specified as acute or chronic; R06.02 Shortness of breath; R05.9 Cough, unspecified; R10.22 Pelvic and perineal pain left side; I12.9 Hypertensive chronic kidney disease with stage 1 through stage 4 chronic kidney disease, or unspecified chronic kidney disease; E11.22 Type 2 diabetes mellitus with diabetic chronic kidney disease; N18.9 Chronic kidney disease, unspecified; Z79.899 Other long term (current) drug therapy; Z11.52 Encounter for screening for COVID-19
CPT/HCPCS: 36415; 71046; 74018; 80053; 83735; 85025; 87502; 87635; 93005; 96361; 96374; 96375; 99283; 99284; J2405

== ENCOUNTER 2025-04-05 08:52 | Outpatient (AMB) | payer OTHER, SELFPAY ==
[2025-04-05 09:11] VITALS: BP 135/62; PULSE 88; RESP 16; O2SAT 96; BMI 33.7
--- NOTE | 2025-04-05 09:11 | A.OFFVIS_ITS ---
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 The back pain radiates down the left leg and has been persistent despite physical therapy, which was discontinued after several sessions due to worsening pain. An MRI revealed nerve compression contributing to the pain, and a steroid injection was considered but deferred due to potential hyperglycemia while patient was poorly controlled diabetic. The patient has a history of diabetes mellitus with a recent A1c of 8.7. He administers regular insulin three times daily and is also on daily Toujeo and Ozempic weekly, but there are concerns about his adherence to blood glucose monitoring. - Onset: Persistent back pain radiating down the left leg - Quality: Worsened by physical therapy - Exacerbating factors: Physical therapy - Relieving factors: None identified - Affect: Pain significantly impacts mobility, requiring assistance for transportation - Analgesia: Current medications include Tylenol and gabapentin - Adverse Effects: None reported - Activities of Daily Living: Pain limits walking distance and requires use of a cane - Aberrant Drug Related Behaviors: None reported PFSH Medical History NAFLD (nonalcoholic fatty liver disease) Transaminitis Basal cell carcinoma (BCC) Skin lesion of left lower extremity Heart murmur Familial hypocalciuric hypercalcemia Multinodular thyroid Vitamin D deficiency HLD (hyperlipidemia) HTN (hypertension) T2DM (type 2 diabetes mellitus) Surgical History Hx of melanoma excision Hx of esophagogastroduodenoscopy Hx of colonoscopy Hx of appendectomy Hx of cholecystectomy Family History Father CVD (cardiovascular disease) Diabetes Brother CVD (cardiovascular disease) Diabetes FH: heart attack Social History Household Members: Family Housing: House Do you presently have visiting nurse or other home services: Yes (visiting nurse 2x week) Alcohol intake: never Patient Tobacco Use Status: Never used Tobacco service: No Current occupational status: unemployed Review of Systems Narrative - Musculoskeletal: Reports back pain radiating to the left leg - Endocrine: Reports elevated blood glucose levels - Respiratory: Reports recent bronchitis Physical Exam Vital Signs: Last Vital Signs Pulse 88 04/05/25 09:11 Resp 16 04/05/25 09:11 BP 135/62 04/05/25 09:11 Pulse Ox 96 04/05/25 09:11 Oxygen Delivery Method Room Air 04/05/25 09:11 BMI result Body Mass Index 33.7 Results Reviewed Results Reviewed: 05/19/23 MR lumbar spine wo con VERTEBRAL BODIES AND PARASPINAL STRUCTURES: The marrow signal is within normal limits. There are no subluxations. Reduced intradiscal signal again evident at the L4-L5 and L5-S1 levels. No marrow or soft tissue edema identified. No compression fractures are seen. The paraspinal soft tissues are normal. There is a 2 cm right cyst, for which no further imaging followup is indicated. CONUS MEDULLARIS AND CAUDA EQUINE: The distal cord, conus tip, and cauda equina nerve roots are normal. On the nondiagnostic localizer acquisition, there is enlargement of the prostate gland measuring 5.7 x 5 cm in size. SPINAL LEVELS: L1-L2: Very mild disc bulge. No central canal stenosis or foraminal narrowing. L2-L3: Mild facet arthropathy and very mild disc bulge with mild left foraminal encroachment. L3-L4: Broad-based disc bulge and shallow left paracentral disc protrusion with hypertrophic facet arthropathy resulting in moderate central canal stenosis and thecal sac distortion. Osseous spurring and bulging disc result in moderate bilateral foraminal encroachment. L4-L5: Broad-based disc bulge and hypertrophic facet arthropathy result in mild central canal stenosis. A previous disc extrusion has resorbed. Facet spurring and bulging disc result in [id number]-vvlazvgm right foraminal narrowing and severe left foraminal encroachment with mild distortion of the exiting left L4 nerve root. L5-S1: Broad-based disc bulge and hypertrophic facet arthropathy contacting the right S1 nerve root in the lateral recess. No central canal stenosis. Mild right foraminal narrowing. [id number]-gc-[id number] left foraminal encroachment. IMPRESSION: 1. Moderate central canal stenosis at the L3-L4 level with moderate bilateral foraminal narrowing. 2. Mild central canal stenosis at the L4-L5 level due to spondylosis. Severe left foraminal narrowing with mild distortion of the exiting left L4 nerve root. 3. Broad-based disc bulge and facet arthropathy at L5-S1 contacting the right S1 nerve root in the lateral recess. Vmtnnbyl-la-xbzfwc left foraminal narrowing. 4. Prostatomegaly. 07/19/2022 XR/XR lumbar spine 2-3V FINDINGS: Right lower quadrant and right upper quadrant surgical clips. No fracture or subluxation. Vertebral body height and alignment maintained. Disc spaces maintained. Small endplate osteophytes throughout. The sacroiliac joints are symmetric. The sacrum is intact. Normal bowel gas pattern. IMPRESSION: Mild degenerative changes throughout the lumbar spine. 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 The patient will need to closely monitor blood glucose levels post-injection due to the potential for hyperglycemia. For diabetes management, the patient is advised to continue with regular insulin and Ozempic, ensuring adherence to blood glucose monitoring. The patient should complete the current antibiotic course for bronchitis and monitor for any gastrointestinal side effects, with probiotics recommended to support gut health. Schedule for fluoroscopy guided left 3-4 TFESI with local anesthetic. Patient was informed and verbally consented to the use of an ambient scribe for clinic note documentation during this visit. Patient Instructions: - Monitor blood glucose levels closely, especially after receiving the steroid injection. - Continue taking diabetes medications as prescribed. - Complete the antibiotic course for bronchitis. - Consider taking probiotics to support gut health during antibiotic treatment. Coding Level of Care Code Est Pt Level 3 (88365) Complex EM visit Add On G2211 Diagnoses Type 2 diabetes mellitus with hyperglycemia, with long-term current use of insulin E11.65; Z79.4 Diabetes mellitus [facility] insulin use: with [facility] use Diabetes mellitus complication status: with hyperglycemia Lumbar radiculopathy M54.16 Lumbar spondylosis M47.816
--- OUTSIDE RECORDS SUMMARY | 2025-04-05 09:42 | XMS_ITS | Encounter Summary ---
Author Organization [employer] Address 75 [facility] 7t [place] [address] Care Team Providers Care Tool Planner Name Role Phone Name, Aneesh RIVERS Primary Care Provider [phone] Sandra Rasheed PharmD Unavailable [phone] Encounter Details Date Type Department Care Team (Late st Contact Info) Description 04/03/2025 Orders Only [facility] External Provider, [facility] Social History Tobacco Use Types Packs/Day [...] Description 04/16/2025 10:00 AM EST Medication Management [facility] [address] [place] [address] Sandra Rasheed, PharmD [address] [place] [address] 05/29/2025 9:30 AM EST Office Visit [facility] [address] [place] [address] Name, MD Aneesh [address] [place] [address] 06/03/2025 9:30 AM EST Office Visit [facility] OPT[facility] [address] [place] [address] Nathanael, Jayne, OD [address] [place] [address] documented as of this encounter Procedures Procedure Name Priority Date/Time Associated Diagnosis Comments XR KUB AND UPRIGHT 2 VIEWS Routine 04/03/2025 11:08 PM EDT XR CHEST 2 VIEWS Routine 04/03/2025 9:00 AM EDT INFLUENZA A B2 ID NOW (Pets are family too) Routine 04/03/2025 8:54 AM EDT COVID-19 ID NOW (CAUSEY) Routine 04/03/2025 8:54 AM EDT CBC WITH AUTO DIFFERENTIAL Routine 04/03/2025 8:54 AM EDT COMPREHENSIVE METABOLIC PANEL Routine 04/03/2025 8:54 AM EDT documented in this encounter Results * XR KUB and Upright 2 Views (04/03/2025 11:08 PM EDT) Anatomical Region Laterality Modality Radiographic Trang ging 04/03/2025 11:0 8 PM EDT Narrative 04/03/2025 11:10 PM EDT [address] [address] XRay Report Signed Patient: Josue Dawson MR#: [id number] : 1950 Acct:[id number] Age/Sex: 74 / M ADM Date: 04/03/25 Loc: HO.ED Attending Dr: Ordering Physician: Cherelle Peralta Date of Service: 04/03/25 Procedure(s): XR KUB Accession Number(s): [id number] cc: Cherelle Peralta; Name,Aneesh RIVERS Reason for Exam: constipation?pain CLINICAL HISTORY: constipation?pain 1 view abdomen Comparison: None provided Findings: No significant bowel distention demonstrated. No significant increased stool noted. No free air. No abnormal calcification. No acute bony abnormalities. Multiple right surgical clips. Impression: No significant abnormalities. This document has been electronically signed by: Jason Segovia MD on 04/03/2025 23:08:31 Dictated By: Jason Segovia MD Signed By: <Electronically signed by Jason Segovia MD in OV> 04/03/252308 DD/ 07 TD/TT: 04/03/252307 Sustainable Communities Designer: Procedure Note Donotuseinterpreter, Image - 04/03/[address] [address] XRay Report Signed Patient: Josue DawsonMR#: [id number] : 1950cct:[id number] Age/Sex: 74 / MADM Date: 04/03/25 Loc: HO.ED Attending Dr: Ordering Physician: Cherelle Peralta Date of Service: 04/03/25 Procedure(s): XR KUB Accession Number(s): [id number] cc: Cherelle Peralta; Name,Aneesh RIVERS Reason for Exam: constipation?pain CLINICAL HISTORY: constipation?pain 1 view abdomen Comparison: None provided Findings: No significant bowel distention demonstrated. No significant increased stool noted. No free air. No abnormal calcification. No acute bony abnormalities. Multiple right surgical clips. Impression: No significant abnormalities. This document has been electronically signed by: Jason Segovia MD on 04/03/2025 23:08:31 Dictated By: Jason Segovia MD Signed By: <Electronically signed by Jason Segovia MD in OV> 04/03/252308 DD/ 07 TD/TT: 04/03/252307 Sustainable Communities Designer: [facility] External Provider IMG XR PROCEDURES Edited Result - Final * XR Chest 2 Views (04/03/2025 9:00 AM EDT) Anatomical Region Laterality Modality Chest Radiographic Trang ging 04/03/2025 9:00 AM EDT Narrative 04/03/2025 9:10 AM EDT [place] [address] XRay Report Signed Patient: Josue Dawson MR#: [id number] : 1950 Acct:[id number] Age/Sex: 74 / M ADM Date: 04/03/25 Loc: HO.ED Attending Dr: Ordering Physician: Generic ED Physician Date of Service: 04/03/25 Procedure(s): XR chest 2V Accession Number(s): [id number] cc: Generic ED Physician; Name,Aneesh RIVERS Reason [...] in OV> 04/03/25907 DD/ 9 TD/TT: 04/03/25904 Sustainable Communities Designer: Procedure Note Donotuseinterpreter, Image - 04/03/[address] [address] XRay Report Signed Patient: Josue DawsonMR#: [id number] : 1950cct:[id number] Age/Sex: 74 / MADM Date: 04/03/25 Loc: .ED Attending Dr: Ordering Physician: Generic ED Physician Date of Service: 04/03/25 Procedure(s): XR chest 2V Accession Number(s): [id number] cc: Generic ED Physician; Name,Aneesh RIVERS Reason [...] by Berlin Willoughby MD in OV> 04/03/25 09 DD/ 9 TD/TT: 04/03/25904 Sustainable Communities Designer: us [facility] External Provider IMG XR PROCEDURES Final Result * COVID-19 ID NOW (CAUSEY) (04/03/2025 8:54 AM EDT) IDNOW SERIAL# [id number] [facility] COVID-19 TEST Negative Negative [facility] COVID-19 NOTE See Note [facility] Comment: Results are for the identification of SARS-CoV2 RNA. TheSARS-CoV2 RNA is generally detectable in respiratory samplesduring the acute phase of infection. Positive results areindicative of the presence of SARS-CoV-2 RNA; clinicalcorrelation with patient history and other diagnosticinformation is necessary to determine patient infectionstatus. Positive results do not rule out bacterial infectionor co- infection with other viruses.Testing facilities within the [facility] and [facility] are required to report all positive results [...] LAB MOLECULAR MAME GNOSTICS ORDERABLES Final Result [facility] [address] [place] [phone] * Influenza A B2 ID NOW (Causey) (04/03/2025 8:54 AM EDT) IDNOW SERIAL# [id number] [facility] Influenza A Negative Negative [facility] Influenza B2 Negative Negative [facility] Influenza A B2 Note See Note [facility] Comment:The Causey ID NOW In [...] LAB MICROBIOLOGY - GENERAL ORDERABLES Final Result [facility] [address] [place] [phone] * (ABNORMAL) Comprehensive Metabolic Panel (04/03/2025 8:54 AM EDT) Sodium 137 135 - 145 mmol/L [facility] Potassium 4.3 3.3 - 5.1 mmol/L [facility] Comment:Slight Hemolysis.Int erpret result with caution. Chloride 103 96 - 108 mmol/L [facility] Carbon Dioxide 27 22 - 29 mmol/L [facility] Anion Gap 11(L) 12 - 20 [facility] Urea Nitrogen (BUN) 21(H) 9 - 16 mg/dL [facility] Creatinine, Serum 1.14 0.5 - 1.4 mg/dL [facility] Creatinine Clr Calc Pharmacy 62.4 [facility] Comment:eGFR (calculated fro m the MDRD study equation) and eCrCl(calculated from the Cockcroft-Gault equation) are based ondifferent parameters and may not yield comparable results.If eCrCl result is absurd, please check patient'sheight/weight. Estimated Glomerular Filt Rate >60 [facility] Comment:Chronic Kidney Disea se: Estimated GFR < 60 mL/min/1.12v6Ictixo Kidney Disease: Estimated GFR < 15 mL/min/1.73m2 Glucose 253(H) 60 - 115 mg/dL [facility] Calcium 9.8 8.4 - 10.2 mg/dL [facility] Bilirubin, Total 0.4 0.0 - 1.0 mg/dL [facility] Aspartate Amino Transferase 55(H) 5 - 37 U/L [facility] Comment:Slight Hemolysis.Int erpret result with caution. Alanine Aminotransferase 74(H) 0 - 40 U/L [facility] Total Protein 7.5 6.5 - 8.0 g/dL [facility] Albumin Level 3.9 3.5 - 5.0 g/dL [facility] Alkaline Phosphatase 63 39 - 117 U/L [facility] 04/03/2025 8:54 AM EDT 04/03/2025 8:59 AM EDT us Generic External Data Provider LAB BLOOD ORDERAB LES Final Result [facility] [address] [place] [phone] * (ABNORMAL) CBC auto differential (04/03/2025 8:54 AM EDT) White Blood Count 9.7 4.8 - 10.8 X10*3/uL [facility] Red Blood Count 5.01 4.60 - 5.80 X10*6/uL [facility] Hemoglobin 14.9 14.0 - 18.0 g/dl [facility] Hematocrit 44.0 42.0 - 52.0 % [facility] Mean Corpuscular Volume 87.8 80.0 - 98.0 fL [facility] Mean Corpuscular Hemoglobin 29.7 27.0 - 33.0 pg [facility] Mean Corpuscular HGB Conc 33.9 31.0 - 36.0 g/dl [facility] Red Cell Distribution Width 13.3 11.0 - 16.0 % [facility] Platelet Count 312 160 - 400 X10*3/uL [facility] Mean Platelet Volume 10.1 9.4 - 12.4 fL [facility] Neutrophils Percent Auto 64.8 45 - 73 % [facility] Imm Gran Pct Auto 0.9(H) 0.0 - 0.4 % [facility] Lymphocytes Percent Auto 25.2 20 - 40 % [facility] Monocytes Percent Auto 6.6 2 - 11 % [facility] Eosinophils Percent Auto 1.9 0 - 4 % [facility] Basophils Percent Auto 0.6 0 - 2 % [facility] NRBC Pct Auto 0.0 0.0 - 0.2 /100WBC [facility] Neutrophils Absolute Auto 6.3 2.0 - 8.3 x10*3/uL [facility] Imm Gran Abs Auto 0.09(H) 0.00 - 0.03 X10*3/uL [facility] Lymphocytes Absolute Auto 2.4 1.2 - 4.9 X10*3/uL [facility] Monocytes Absolute Auto 0.6 0.1 - 1.2 X10*3/uL [facility] Eosinophils Absolute Auto 0.2 0.0 - 0.4 X10*3/uL [facility] Basophils Absolute Auto 0.1 0.0 - 0.2 X10*3/uL [facility] NRBC Abs Auto 0.000 0.0 - 0.012 X10*3/uL [facility] 04/03/2025 8:54 AM EDT 04/03/2025 8:59 AM EDT us Generic External Data Provider LAB BLOOD ORDERAB LES Final Result [facility] [address] [place] [phone] documented in this encounter Visit Diagnoses Not on filedocumented in this encounter Additional Health Concerns Assessment Noted Time PHQ-9 Depression Total Score: 5 03/06/20 11:44 AM EDT documented as of this encounter Care Teams Tool Planner Relationship Specialty Start Date End Date Name, MD Aneesh [address] [place] [address] PCP - General Family Medicine 02/14/18 Sandra Rasheed PharmD [address] [place] [address] Pharmacist Internal Medicine 08/24/24 documented as of this encounter
--- OUTSIDE RECORDS SUMMARY | 2025-04-05 09:42 | XMS_ITS | Encounter Summary ---
Author Organization [employer] Address [address] [facility] 7t [place] [address] Care Team Providers Care Document Clerk Name Role Phone Name, Aneesh RIVERS Primary Care Provider [phone] Sandra Rasheed PharmD Unavailable [phone] Reason for Visit * Reason Onset Date Comments FYI 08/23/2023 Encounter Details Date Type Department Care Team ([facility] st Contact Info) Description 08/23/2023 Telephone [facility] MED[facility]INE [address] [place] [address] Name, MD Aneesh [address] [place] [address] FY Social History Tobacco Use Types Packs/Day [...] 3:03 PM EDT Tc from [facility]idy with [place] [facility] stating pt no longer wants to continue care with them. Leidy stated pt no showed 3 appts in a row and when asked about it pt said it was due to to transportation. Pt claims they are irresponsible and that they don't communicate. Pt stated he will continue care with PCP. If any questions please contact Leidy at [phone]. documented in this encounter Plan of Treatment Upcoming Encounters Date Type Department Care Team (Late st Contact Info) Description 04/16/2025 10:00 AM EST Medication Management [facility] [address] [place] [address] Sandra Rasheed, PharmD [address] [place] [address] 05/29/2025 9:30 AM EST Office Visit [facility] [address] [place] [address] Name, MD Aneesh [address] [place] [address] 06/03/2025 9:30 AM EST Office Visit [facility] OPTOMETRY [address] [place] [address] Jayne Huffman, BRYANT [address] [place] [address] documented as of this encounter Visit Diagnoses Not on filedocumented in this encounter Additional Health Concerns Assessment Noted Time PHQ-9 Depression Total Score: 4 08/23/19 24 9:44 AM EDT documented as of this encounter Care Teams Document Clerk Relationship Specialty Start Date End Date Name, MD Aneesh [address] [place] [address] PCP - General Family Medicine 02/14/18 Sandra Rasheed PharmD [address] [place] [address] Pharmacist Internal Medicine 08/24/24 documented as of this encounter
--- OUTSIDE RECORDS SUMMARY | 2025-04-05 09:42 | XMS_ITS | Encounter Summary ---
Author Organization [employer] Address 75 [facility] 7t [place] [address] Care Team Providers Care Safety Companion Name Role Phone Name, Aneesh RIVERS Primary Care Provider [phone] Sandra Rasheed PharmD Unavailable [phone] Reason for Visit * Reason Comments Med Refill Encounter Details Date Type Department Care Team ([facility] st Contact Info) Description 05/02/2024 Refill [facility] MED[facility]INE [address] [place] [address] Name, MD Aneesh [address] [place] [address] Chronic constipation Social History Tobacco Use Types [...] Upcoming Encounters Date Type Department Care Team ([facility] st Contact Info) Description 04/16/2025 10:00 AM EST Medication Management [facility] [address] [place] [address] Sandra Rasheed, PharmD [address] [place] [address] 05/29/2025 9:30 AM EST Office Visit [facility] [address] [place] [address] Aneesh Oliveira MD 230 [place] [address] 06/03/2025 9:30 AM EST Office Visit [facility] OPTOMETRY [address] [place] [address] Nathanael, Jayne, OD 230 [place] [address] documented as of this encounter Visit Diagnoses Diagnosis Chronic constipation Unspecified constipation documented in this encounter Additional Health Concerns Assessment Noted Time PHQ-9 Depression Total Score: 4 08/23/19 24 9:44 AM EDT documented as of this encounter Care Teams Safety Companion Relationship Specialty Start Date End Date Aneesh Oliveira MD [address] [place] [address] PCP - General Family Medicine 02/14/18 Sandra Rasheed, Javi [address] [place] [phone] Pharmacist Internal Medicine 08/24/24 documented as of this encounter
--- OUTSIDE RECORDS SUMMARY | 2025-04-05 09:42 | XMS_ITS | Encounter Summary ---
Author Organization [employer] Address 75 [facility] 7t [place] [address] Care Team Providers Care Transcription Coordinator Name Role Phone Name, Aneesh RIVERS Primary Care Provider [phone] Sandra Rasheed PharmD Unavailable [phone] Reason for Visit * Reason Comments Med Refill Encounter Details Date Type Department Care Team ([facility] st Contact Info) Description 12/20/[address] [facility] [address] [place] [address] Name, MD Aneesh [address] [place] [address] Left leg pain; Chronic low back pain, [...] Description 04/16/2025 10:00 AM EST Medication Management [facility] [address] [place] [address] Sandra Rasheed, PharmD [address] [place] [address] 05/29/2025 9:30 AM EST Office Visit [facility] [address] [place] [address] Name, MD Aneesh [address] [place] [address] 06/03/2025 9:30 AM EST Office Visit [facility] OPTOMETRY [address] [place] [address] Nathanael, Jayne, OD [address] [place] [address] documented as of this encounter Visit Diagnoses Diagnosis Left leg pain Pain in soft tissues of limb Chronic low back pain, unspecified back pain laterality, unspecified whether sciatica present documented in this encounter Additional Health Concerns Assessment Noted Time PHQ-9 Depression Total Score: 4 08/23/19 24 9:44 AM EDT documented as of this encounter Care Teams Transcription Coordinator Relationship Specialty Start Date End Date Name, MD Aneesh [address] [place] [address] PCP - General Family Medicine 02/14/18 Sandra Rasheed PharmD [address] [place] [address] Pharmacist Internal Medicine 08/24/24 documented as of this encounter
--- OUTSIDE RECORDS SUMMARY | 2025-04-05 09:42 | XMS_ITS | Encounter Summary ---
Author Organization [employer] Address 75 [facility] 7t [place] [address] Care Team Providers Care Rn Enterostomal Name Role Phone Name, Aneesh RIVERS Primary Care Provider [phone] Sandra Rasheed PharmD Unavailable [phone] Reason for Visit * Reason Comments Med Refill Encounter Details Date Type Department Care Team ([facility] st Contact Info) Description 01/12/2024 Refill [facility] [address] [place], [place] [phone] Name, MD Aneesh 230 [place] [address] Chronic low back pain, unspecified back pain [...] Description 04/16/2025 10:00 AM EST Medication Management [facility] [address] [place] [address] Sandra Rasheed, PharmD [address] [place] [address] 05/29/2025 9:30 AM EST Office Visit [facility] [address] [place] [address] Aneesh Oliveira MD [address] [place] [address] 06/03/2025 9:30 AM EST Office Visit [facility] OPTOMETRY [address] [place] [address] Nathanael, Jayne, OD 230 [place] [address] documented as of this encounter Visit Diagnoses Diagnosis Chronic low back pain, unspecified back pain laterality, unspecified whether sciatica present documented in this encounter Additional Health Concerns Assessment Noted Time PHQ-9 Depression Total Score: 4 08/23/19 24 9:44 AM EDT documented as of this encounter Care Teams Rn Enterostomal Relationship Specialty Start Date End Date NameAneesh MD [address] [place] [address] PCP - General Family Medicine 02/14/18 Sandra Rasheed, Javi [address] [place] [address] Pharmacist Internal Medicine 08/24/24 documented as of this encounter
--- OUTSIDE RECORDS SUMMARY | 2025-04-05 09:42 | XMS_ITS | Encounter Summary ---
Author Organization [employer] Address [address] [facility] 7t [place] [address] Care Team Providers Care Legal Job Titles Name Role Phone Name, Aneesh RIVERS Primary Care Provider Sandra Rasheed PharmD Unavailable [phone] Reason for Visit * Reason Onset Date Comments Appointment Request 07/17/2024 Encounter Details Date Type Department Care Team ([facility] st Contact Info) Description 07/17/2024 Telephone [facility] MEDICINE [address] [place] [address] Name, MD Aneesh [address] [place] [address] Appointment Request Social History Tobacco Use Types [...] r/s apt for 07/17/24. Contact pt at [phone] documented in this encounter Plan of Treatment Upcoming Encounters Date Type Department Care Team ([facility] st Contact Info) Description 04/16/2025 10:00 AM EST Medication Management [facility] [address] [place] [address] Sandra Rasheed, PharmD [address] [place] [address] 05/29/2025 9:30 AM EST Office Visit [facility] MEDICINE [address] [place] [address] Name, MD Aneesh [address] [place] [address] 06/03/2025 9:30 AM EST Office Visit [facility] OPTOMETRY [address] [place] [address] Jayne Huffman, OD 230 [place] [address] documented as of this encounter Visit Diagnoses Not on filedocumented in this encounter Additional Health Concerns Assessment Noted Time PHQ-9 Depression Total Score: 4 08/23/19 24 9:44 AM EDT documented as of this encounter Care Teams Legal Job Titles Relationship Specialty Start Date End Date Name, MD Aneesh [address] [place] [address] PCP - General Family Medicine 02/14/18 Sandra Rasheed, Javi [address] [place] [address] Pharmacist Internal Medicine 08/24/24 documented as of this encounter
--- OUTSIDE RECORDS SUMMARY | 2025-04-05 09:42 | XMS_ITS | Clinical Summary ---
Author Organization [facility] Address [address] [place] [address] [place] [phone] Phone Care Team Providers Care Controller Mechanic Name Role Phone Name, Aneesh RIVERS Primary Care Provider [phone] Allergies Active Allergy Reactions Criticality Noted Date [...] 49 Years) Discontinued 02/17/2014, 03/15/2008, 04/14/2000 Insurance [facility] Dual [employer] [facility] [employer] Care Teams Controller Mechanic Relationship Specialty Start Date End Date Name, MD Aneesh [address] [place] [address] [phone] PCP - General 06/23/20
--- OUTSIDE RECORDS SUMMARY | 2025-04-05 09:42 | XMS_ITS | Encounter Summary ---
Author Organization [employer] Address 75 [facility] 7t [place] [address] Care Team Providers Care Tailor Apprentice Name Role Phone Name, Aneesh RIVERS Primary Care Provider [phone] Sandra Rasheed PharmD Unavailable [phone] Reason for Visit * Reason Comments Med Refill Encounter Details Date Type Department Care Team ([facility] st Contact Info) Description 08/19/2023 Refill [facility] MED[facility]INE [address] [place] [address] Name, MD Aneesh [address] [place] [address] Social History Tobacco Use Types Packs/Day Years [...] Description 04/16/2025 10:00 AM EST Medication Management [facility] [address] [place] [address] Sandra Rasheed PharmD [address] [place] [address] 05/29/2025 9:30 AM EST Office Visit [facility] MED[facility]INE [address] [place] [address] Name, MD Aneesh [address] [place] [address] 06/03/2025 9:30 AM EST Office Visit [facility] OPTOMETRY [address] [place] [address] Nathanael, Jayne, OD [address] [place] [address] documented as of this encounter Visit Diagnoses Not on filedocumented in this encounter Care Teams Tailor Apprentice Relationship Specialty Start Date End Date Name, MD Aneesh [address] [place] [address] PCP - General Family Medicine 02/14/18 Sandra Rasheed, PharmD [address] [place] [address] Pharmacist Internal Medicine 08/24/24 documented as of this encounter
--- OUTSIDE RECORDS SUMMARY | 2025-04-05 09:42 | XMS_ITS | Encounter Summary ---
Author Organization [employer] Address [address] [facility] 7t [place] [address] Care Team Providers Care Senior Ssis Developer Name Role Phone Name, Aneesh RIVERS Primary Care Provider [phone] Sandra Rasheed PharmD Unavailable [phone] Encounter Details Date Type Department Care Team (Late st Contact Info) Description 03/23/2023 Orders Only [facility] [address] [place], [place] [phone] Amber Brantley LPN Social History Tobacco Use [...] Description 04/16/2025 10:00 AM EST Medication Management [facility] MEDICINE [address] [place] [address] Sandra Rasheed PharmD [address] [place] [phone] 05/29/2025 9:30 AM EST Office Visit [facility] MEDICINE [address] [place] [address] Name, MD Aneesh [address] [place] [address] 06/03/2025 9:30 AM EST Office Visit [facility] OPTOMETRY [address] [place] [address] Nathanael, Jayne, OD [address] [place] [address] documented as of this encounter Visit Diagnoses Not on filedocumented in this encounter Care Teams Senior Ssis Developer Relationship Specialty Start Date End Date Name, MD Aneesh [address] [place] [phone] PCP - General Family Medicine 02/14/18 Sandra Rasheed PharmD [address] [place] [phone] Pharmacist Internal Medicine 08/24/24 documented as of this encounter
--- OUTSIDE RECORDS SUMMARY | 2025-04-05 09:42 | XMS_ITS | Encounter Summary ---
Author Organization [employer] Address [address] [facility] 7t [place] [address] Care Team Providers Care Coin Machine Operator Name Role Phone Name, Aneesh RIVERS Primary Care Provider [phone] Sandra Rasheed PharmD Unavailable [phone] Reason for Visit * Reason Comments Med Refill Encounter Details Date Type Department Care Team ([facility] Contact Info) Description 04/09/2024 Refill [facility]ED[facility] [address] [place], [place] [phone] Name, MD Aneesh [address] [place] [address] Chronic low back pain, unspecified back pain [...] Description 04/16/2025 10:00 AM EST Medication Management [facility] MED[facility]INE [address] [place] [phone] Sandra Rasheed, PharmD [address] [place] [phone] 05/29/2025 9:30 AM EST Office Visit [facility] MEDICINE [address] [place] [phone] Aneesh Oliveira MD [address] [place] [address] 06/03/2025 9:30 AM EST Office Visit [facility] OPTOMETRY [address] [place] [address] Nathanael, Jayne, OD [address] [place] [address] documented as of this encounter Visit Diagnoses Diagnosis Chronic low back pain, unspecified back pain laterality, unspecified whether sciatica present documented in this encounter Additional Health Concerns Assessment Noted Time PHQ-9 Depression Total Score: 4 08/23/19 24 9:44 AM EDT documented as of this encounter Care Teams Coin Machine Operator Relationship Specialty Start Date End Date NameAneesh MD [address] [place] [phone] PCP - General Family Medicine 02/14/18 Sandra Rasheed, Javi [address] [place] [phone] Pharmacist Internal Medicine 08/24/24 documented as of this encounter
--- OUTSIDE RECORDS SUMMARY | 2025-04-05 09:42 | XMS_ITS | Encounter Summary ---
Author Organization [employer] Address [address] [facility] 7[address] [place] [address] Care Team Providers Care Supervisor Coil Winding Name Role Phone Name, Aneesh RIVERS Primary Care Provider [phone] Sandra Rasheed PharmD Unavailable [phone] Reason for Visit * Reason Comments Med Refill Encounter Details Date Type Department Care Team ([facility] st Contact Info) Description 08/18/2023 Refill [facility] [address] [place], [place] [phone] Name, MD Aneesh [address] [place] [address] Social History Tobacco Use Types Packs/Day Years [...] Description 04/16/2025 10:00 AM EST Medication Management [facility] MEDICINE [address] [place] [phone] Sandra Rasheed PharmD [address] [place] [address] 05/29/2025 9:30 AM EST Office Visit [facility] MED[facility]INE [address] [place] [phone] Name, MD Aneesh [address] [place] [address] 06/03/2025 9:30 AM EST Office Visit [facility] OPTOMETRY [address] [place] [address] Nathanael, Jayne, OD [address] [place] [address] documented as of this encounter Visit Diagnoses Not on filedocumented in this encounter Care Teams Supervisor Coil Winding Relationship Specialty Start Date End Date Name, MD Aneesh [address] [place] [phone] PCP - General Family Medicine 02/14/18 Sandra Rasheed, PharmD [address] [place] [address] Pharmacist Internal Medicine 08/24/24 documented as of this encounter
--- OUTSIDE RECORDS SUMMARY | 2025-04-05 09:42 | XMS_ITS | Encounter Summary ---
Author Organization [employer] Address [address] [facility] [address] [place] [address] Care Team Providers Care Muffler Hand Name Role Phone Name, Aneesh RIVERS Primary Care Provider [phone] Sandra Rasheed PharmD Unavailable [phone] Reason for Visit * Reason Onset Date Comments Prior Authorization 04/01/2025 Encounter Details Date Type Department Care Team ([facility] st Contact Info) Description 04/01/2025 Refill [facility] MEDICINE [address] [place] [address] Name, MD Aneesh [address] [place] [address] Type 2 diabetes mellitus with other specified [...] Medication Management [facility] MEDICINE [address] [place] [address] Sandra Rasheed PharmD [address] [place] [address] 05/29/2025 9:30 AM EST Office Visit [facility] MEDICINE [address] [place] [address] Name, MD Aneesh [address] [place], [place] 06/03/2025 9:30 AM EST Office Visit [facility] OPTOMETRY [address] [place], [place] [phone] NathanaelJayne agudelo, OD [address] [place] [address] documented as of this encounter Visit Diagnoses Diagnosis Type 2 diabetes mellitus with other specified complication, without long-term current use of insulin (HCC)- Primary documented in this encounter Additional Health Concerns Assessment Noted Time PHQ-9 Depression Total Score: 5 03/06/20 25 11:44 AM EDT documented as of this encounter Care Teams Muffler Hand Relationship Specialty Start Date End Date Name, [place] [address] PCP - General Family Medicine 02/14/18 Sandra Rasheed PharmD [address] [place] [address] [phone] Pharmacist Internal Medicine 08/24/24 documented as of this encounter
--- OUTSIDE RECORDS SUMMARY | 2025-04-05 09:43 | XMS_ITS | Clinical Summary ---
Author Organization [employer] Address [address] [facility] [address] [place] [address] Care Team Providers Care [facility] Caretaker Name Role Phone Name, Aneesh RIVERS Primary Care Provider [phone] Sandra Rasheed PharmD Unavailable [phone] Allergies Active Allergy Reactions Criticality Noted [...] 2 times daily. Active insulin pen needle (CookistotiGuard SafePack Pen Needle) 32G x 4 mm miscIndications: Type 2 diabetes mellitus with hyperglycemia ([facility]) Use to inject insulin 4 times daily 200 each Active glucose blood ([employer] Ultra) test stripIndications :Type 2 diabetes mellitus with hyperglycemia ([facility]) TEST BLOOD SUGAR THREE TIMES DAILY 100 strip Active metFORMIN (Glucophage) 1000 MG tabletIndication s:Type 2 diabetes mellitus with other specified complication, without long-term current use of insulin ([facility]) TAKE 1 TABLET BY MOUTH TWICE DAILY [...] hyperglycemia, with long-term current use of insulin ([facility]) Inject 0.75 mL (2 mg) under the skin 1 (one) time per week. 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 1 kit 025 Active Blood Glucose Calibration (Accu-Chek Mgegan) solutionIndicati ons:Type 2 diabetes mellitus with other [...] Encounters Date Type Department Care Team Description 04/04/2025 Telephone [facility] MEDICINE [address] [place] [address] Aneesh Oliveira MD 04/04/2025 Telephone [facility] MEDICINE [address] [place] [phone] Aneesh Oliveira MD Transition Of Care (Tcm) 04/03/2025 Orders Only [facility] External Provider, [facility] 04/01/2025 Refill [facility] MED[facility] [address] [place] [address] Aneesh Oliveira MD Type 2 diabetes mellitus with other specified complication, without long-term current use of insulin (HCC) (Primary Dx) 03/06/2025 11:00 AM EDT Office Visit [address] [address] Aneesh Oliveira MD Type 2 diabetes mellitus with other specified complication, without long-term current use of insulin (CMS/HCC) (Primary Dx); Stage 3a chronic kidney disease (CMS/HCC); Hypertension, unspecified type; Chronic low back pain, unspecified back pain laterality, unspecified whether sciatica present; Generalized osteoarthritis; Encounter for immunization 03/06/2025 Travel 02/18/2025 Telephone [facility] MED & PEDS [address] [place], [place] [phone] Aneesh Oliveira MD Chart Prep 02/04/2025 Travel 02/01/2025 Refill [facility] MED[facility]INE [address] [place] [address] Snadra Rasheed, PharmD Type 2 diabetes mellitus with hyperglycemia (CMS/HCC); senior living (current) use of insulin (CMS/HCC) 01/24/2025 Refill [facility] MED[facility] [address] [place] [address] Name, MD Aneesh Chronic low back pain, unspecified back pain laterality, unspecified whether sciatica present 01/22/2025 Refill [facility] MED[facility] [address] [place] [address] Sandra Rasheed, Javi Type 2 diabetes mellitus with hyperglycemia ([facility]); 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 ([facility]) 01/20/2025 Orders Only GENERIC EXTERNAL DATA DEPARTMENT Provider, Generic External Data 01/16/2025 Orders Only GENERIC EXTERNAL DATA DEPARTMENT Provider, Generic External Data from Last 3 Months Immunizations Immunization Administration [...] [facility] [address] [place], [place] [phone] Sandra Rasheed, PharmD [address] [place] [address] 05/29/2025 9:30 AM EST Office Visit [facility] MEDICINE [address] [place] [address] Name, MD Aneesh [address] [place] [address] 06/03/2025 9:30 AM EST Office Visit [facility] OPTOMETRY [address] [place] [address] NathanaelJayne agudelo, OD [address] [place] [address] Health Maintenance Due Date Last Done Comments [...] Relevant to Health Maintenance Results * XR KUB and Upright 2 Views (04/03/2025 11:08 PM EDT) Anatomical Region Laterality Modality Radiographic Trang ging 04/03/2025 11:0 8 PM EDT Narrative 04/03/2025 11:10 PM EDT [address] [address] XRay Report Signed Patient: Josue Dawson MR#: [id number] : 1950 Acct:[id number] Age/Sex: 74 / M ADM Date: 04/03/25 Loc: HO.ED Attending Dr: Ordering Physician: Cherelle Peralta Date of Service: 04/03/25 Procedure(s): XR KUB Accession Number(s): [id number] cc: Cherelle Peralta; Name,Aneesh RIVERS Reason for [...] in OV> 04/03/252308 DD/ 07 TD/TT: 04/03/252307 Licensed Tax Consultant: Procedure Note Donotuseinterpreter, Image - 04/03/[address] [address] XRay Report Signed Patient: Josue DawsonMR#: [id number] : 1950cct:[id number] Age/Sex: 74 / MADM Date: 04/03/25 Loc: HO.ED Attending Dr: Ordering Physician: Cherelle Peralta Date of Service: 04/03/25 Procedure(s): XR KUB Accession Number(s): [id number] cc: Cherelle Peralta; Name,Aneesh RIVERS Reason for [...] in OV> 04/03/252308 DD/ 07 TD/TT: 04/03/252307 Licensed Tax Consultant: [facility] External Provider IMG XR PROCEDURES Edited Result - Final * XR Chest 2 Views (04/03/2025 9:00 AM EDT) Anatomical Region Laterality Modality Chest Radiographic Trang ging 04/03/2025 9:00 AM EDT Narrative 04/03/2025 9:10 AM EDT [place] [address] XRay Report Signed Patient: Josue Dawson MR#: [id number] : 1950 Acct:[id number] Age/Sex: 74 / M ADM Date: 04/03/25 Loc: .ED Attending Dr: Ordering Physician: Generic ED Physician Date of Service: 04/03/25 Procedure(s): XR chest 2V Accession Number(s): [id number] cc: Generic ED Physician; Name,Aneesh RIVERS Reason [...] in OV> 04/03/25907 DD/ 9 TD/TT: 04/03/25904 Licensed Tax Consultant: Procedure Note Donotuseinterpreter, Image - 04/03/[address] [address] XRay Report Signed Patient: Josue DawsonMR#: [id number] : 1950cct:[id number] Age/Sex: 74 / MADM Date: 04/03/25 Loc: .ED Attending Dr: Ordering Physician: Generic ED Physician Date of Service: 04/03/25 Procedure(s): XR chest 2V Accession Number(s): [id number] cc: Generic ED Physician; Name,Aneesh RIVERS Reason [...] in OV> 04/03/25907 DD/ 9 TD/TT: 04/03/25904 Licensed Tax Consultant: [facility] External Provider IMG XR PROCEDURES Final Result * Influenza A B2 ID NOW (Causey) (04/03/2025 8:54 AM EDT) IDNOW SERIAL# [id number] [facility] Influenza A Negative Negative [facility] Influenza B2 Negative Negative [facility] Influenza A B2 Note See Note [facility] Comment:The Causey ID NOW In fluenza [...] LAB MICROBIOLOGY - GENERAL ORDERABLES Final Result [facility] [address] [place] [phone] * COVID-19 ID NOW (CAUSEY) (04/03/2025 8:54 AM EDT) IDNOW SERIAL# [id number] [facility] COVID-19 TEST Negative Negative [facility] COVID-19 NOTE See Note [facility] Comment: Results are for the identification of SARS-CoV2 RNA. TheSARS-CoV2 RNA is generally detectable in respiratory samplesduring the acute phase of infection. Positive results areindicative of the presence of SARS-CoV-2 RNA; clinicalcorrelation with patient history and other diagnosticinformation is necessary to determine patient infectionstatus. Positive results do not rule out bacterial infectionor co- infection with other viruses.Testing facilities within the [facility] and itsterritories are required to report all [...] use by authorized laboratories.Testing performed on the [employer] ID NOW utilizing NAAT. 04/03/2025 8:54 AM EDT 04/03/2025 8:59 AM EDT us Generic External Data Provider LAB MOLECULAR MAME GNOSTICS ORDERABLES Final Result [facility] [address] [place], [place] [phone] * (ABNORMAL) CBC auto differential (04/03/2025 8:54 AM EDT) White Blood Count 9.7 4.8 - 10.8 X10*3/uL [facility] Red Blood Count 5.01 4.60 - 5.80 X10*6/uL [facility] Hemoglobin 14.9 14.0 - 18.0 g/dl [facility] Hematocrit 44.0 42.0 - 52.0 % [facility] Mean Corpuscular Volume 87.8 80.0 - 98.0 fL [facility] Mean Corpuscular Hemoglobin 29.7 27.0 - 33.0 pg [facility] Mean Corpuscular HGB Conc 33.9 31.0 - 36.0 g/dl [facility] Red Cell Distribution Width 13.3 11.0 - 16.0 % [facility] Platelet Count 312 160 - 400 X10*3/uL [facility] Mean Platelet Volume 10.1 9.4 - 12.4 fL [facility] Neutrophils Percent Auto 64.8 45 - 73 % [facility] Imm Gran Pct Auto 0.9(H) 0.0 - 0.4 % [facility] Lymphocytes Percent Auto 25.2 20 - 40 % [facility] Monocytes Percent Auto 6.6 2 - 11 % [facility] Eosinophils Percent Auto 1.9 0 - 4 % [facility] Basophils Percent Auto 0.6 0 - 2 % [facility] NRBC Pct Auto 0.0 0.0 - 0.2 /100WBC [facility] Neutrophils Absolute Auto 6.3 2.0 - 8.3 x10*3/uL [facility] Imm Gran Abs Auto 0.09(H) 0.00 - 0.03 X10*3/uL [facility] Lymphocytes Absolute Auto 2.4 1.2 - 4.9 X10*3/uL [facility] Monocytes Absolute Auto 0.6 0.1 - 1.2 X10*3/uL [facility] Eosinophils Absolute Auto 0.2 0.0 - 0.4 X10*3/uL [facility] Basophils Absolute Auto 0.1 0.0 - 0.2 X10*3/uL [facility] NRBC Abs Auto 0.000 0.0 - 0.012 X10*3/uL [facility] 04/03/2025 8:54 AM EDT 04/03/2025 8:59 AM EDT us Generic External Data Provider LAB BLOOD ORDERAB LES Final Result [facility] [address] [place] [phone] * (ABNORMAL) Comprehensive Metabolic Panel (04/03/2025 8:54 AM EDT) Sodium 137 135 - 145 mmol/L [facility] Potassium 4.3 3.3 - 5.1 mmol/L [facility] Comment:Slight Hemolysis.Int erpret result with caution. Chloride 103 96 - 108 mmol/L [facility] Carbon Dioxide 27 22 - 29 mmol/L [facility] Anion Gap 11(L) 12 - 20 [facility] Urea Nitrogen (BUN) 21(H) 9 - 16 mg/dL [facility] Creatinine, Serum 1.14 0.5 - 1.4 mg/dL [facility] Creatinine Clr Calc Pharmacy 62.4 [facility] Comment:eGFR (calculated fro m the MDRD study equation) and eCrCl(calculated from the Cockcroft-Gault equation) are based ondifferent parameters and may not yield comparable results.If eCrCl result is absurd, please check patient'sheight/weight. Estimated Glomerular Filt Rate >60 [facility] Comment:Chronic Kidney Disea se: Estimated GFR < 60 mL/min/1.28d6Lkpkgc Kidney Disease: Estimated GFR < 15 mL/min/1.73m2 Glucose 253(H) 60 - 115 mg/dL [facility] Calcium 9.8 8.4 - 10.2 mg/dL [facility] Bilirubin, Total 0.4 0.0 - 1.0 mg/dL [facility] Aspartate Amino Transferase 55(H) 5 - 37 U/L [facility] Comment:Slight Hemolysis.Int erpret result with caution. Alanine Aminotransferase 74(H) 0 - 40 U/L [facility] Total Protein 7.5 6.5 - 8.0 g/dL [facility] Albumin Level 3.9 3.5 - 5.0 g/dL [facility] Alkaline Phosphatase 63 39 - 117 U/L [facility] 04/03/2025 8:54 AM EDT 04/03/2025 8:59 AM EDT us Generic External Data Provider LAB BLOOD ORDERAB LES Final Result [facility] [address] [place] [phone] * (ABNORMAL) POCT Glucose (03/06/2025 11:00 AM EDT) Glucose Blood, POC 320(A) 60 - 200 mg/dL QC Media Lot # [id number] Lot# Expiration Date Blood Capillary blood specimen / Unknown 03/06/2025 11:00 AM EDT us Aneesh Oliveira MD POINT OF CARE TEST ENTER/EDIT OR DERABLES Final Result * (ABNORMAL) POCT HGB A1C (02/04/2025 12:26 PM EDT) Hemoglobin A1C 8.7(A) 4.0 - 5.7 % Blood 02/04/2025 12:2 6 PM EDT Aneesh Name POINT OF CARE TEST ENTER/EDIT OR DERABLES Final Result * CT Abdomen Pelvis w/ Contrast (01/20/2025 11:46 AM EDT) Anatomical Region Laterality Modality Body, Pelvis, Abdomen Computed T omography 01/20/2025 11:4 6 AM EDT Narrative 01/20/2025 11:48 AM EDT [place] [address] CT Scan Report Signed Patient: Josue Dawson MR#: [id number] : 1950 Acct:[id number] Age/Sex: 74 / M ADM Date: 01/20/25 Loc: HO.ED Attending Dr: Ordering Physician: Armaan Clark Date of Service: 01/20/25 Procedure(s): CT abdomen pelvis w IV con Accession Number(s): [id number] cc: Armaan Clark; Name,Aneesh RIVERS Report Number: [id number]: Total DLP = 695.00 mGy-cm CLINICAL HISTORY: [...] by Fan Langley MD in OV> 01/20/25 114 DD/ 45 TD/TT: 01/20/25 114 Licensed Tax Consultant: Procedure Note Donotuseinterpreter, Image - 01/20/[address] [place] [address] [address] Scan Report Signed Patient: Josue DawsonMR#: [id number] : 1950cct:[id number] Age/Sex: 74 / MADM Date: 01/20/25 Loc: .ED Attending Dr: Ordering Physician: Armaan Clark Date of Service: 01/20/25 Procedure(s): CT abdomen pelvis w IV con Accession Number(s): [id number] cc: Armaan Clark; Name,Aneesh RIVERS Report Number: [id number]: Total DLP = 695.00 mGy-cm CLINICAL HISTORY: [...] Langley MD in OV> 01/20/25 1147 DD/ 45 TD/TT: 01/20/25 1146 Licensed Tax Consultant: [facility] External Provider IMG CT PROCEDURES Edited Result - Final * (ABNORMAL) Urinalysis, Complete, with Reflex to Culture (01/20/2025 11:26 AM EDT) Color Urine Yellow [facility] Appearance Urine Clear [facility] PH 7.0 5.0 - 9.0 [facility] Glucose Urine UA >=1000(A) Negative mg/dL [facility] Urine Blood Negative Negative [facility] Specific [place] - Urine 1.025 1.005 - 1.025 [facility] Urine Protein 300 (3+)(A) Neg-Trace mg/dL [facility] Urine Ketones Negative Negative mg/dL [facility] Nitrite Urine Negative Negative [facility] Leukocyte Esterase Urine Negative Negative [facility] RBC Urine 0-2 0 - 2 /HPF [facility] Urine WBC 0-5 0 - 5 /HPF [facility] Urine Squamous Epithelial Cell 0-2 0 - 2 /HPF [facility] Urine Bacteria None Seen None Seen [facility] Hyaline Casts, Urine 0-2 0 - 2 /LPF [facility] 01/20/2025 11:2 6 AM EDT 01/20/2025 11:46 AM EDT Narrative [facility] - 01/20/2025 11:56 AM EDT [id number], Clean Catch Generic External Data Provider LAB URINE ORDERAB LES Final Result [facility] [address] [place] [phone] * (ABNORMAL) Basic Metabolic Panel (01/16/2025 9:22 AM EDT) Sodium 139 135 - 145 mmol/L [facility] Potassium 3.7 3.3 - 5.1 mmol/L [facility] Chloride 102 96 - 108 mmol/L [facility] Carbon Dioxide 29 22 - 29 mmol/L [facility] Anion Gap 12 12 - 20 [facility] Urea Nitrogen (BUN) 23(H) 9 - 16 mg/dL [facility] Creatinine, Serum 1.08 0.5 - 1.4 mg/dL [facility] Estimated Glomerular Filt Rate >60 [facility] Comment:Chronic Kidney Disea se: Estimated GFR < 60 mL/min/1.71e4Vyajls Kidney Disease: Estimated GFR < 15 mL/min/1.73m2 Glucose 170(H) 60 - 115 mg/dL [facility] Calcium 10.0 8.4 - 10.2 mg/dL [facility] 01/16/2025 9:22 AM EDT 01/16/2025 9:22 AM EDT us Generic External Data Provider LAB BLOOD ORDERAB LES Final Result Performing Organization Address City/State/[facility] Co de Phone Number [facility] [address] [place] [phone] * (ABNORMAL) Urinalysis Complete (01/16/2025 9:19 AM EDT) Color Urine Yellow [facility] Appearance Urine Clear [facility] PH 5.5 5.0 - 9.0 [facility] Glucose Urine UA >=1000(A) Negative mg/dL [facility] Urine Blood Negative Negative [facility] Specific [place] - Urine 1.020 1.005 - 1.025 [facility] Urine Protein 300 (3+)(A) Neg-Trace mg/dL [facility] Urine Ketones Negative Negative mg/dL [facility] Nitrite Urine Negative Negative [facility] Leukocyte Esterase Urine Negative Negative [facility] RBC Urine 0-2 0 - 2 /HPF [facility] Urine WBC 0-5 0 - 5 /HPF [facility] Urine Squamous Epithelial Cell 0-2 0 - 2 /HPF [facility] Urine Bacteria None Seen None Seen [facility] Hyaline Casts, Urine 3-5 0 - 2 /LPF [facility] 01/16/2025 9:19 AM EDT 01/16/2025 9:48 AM EDT us Generic External Data Provider LAB URINE ORDERAB LES Final Result [facility] [address] [place] [phone] * Cytopath-cell enhanced (01/16/2025 9:09 AM EDT) 01/16/2025 9:09 AM EDT 01/17/2025 8:15 AM EDT Narrative [facility] - 01/17/2025 3:04 PM EDT ----- ------- Name: Josue Dawson Age/Sex: 74/M : 1950 Unit#: [id number] Attend Dr: Jd Painter MD Re01/16/25 Status: DEP REF Location: .LAB Disch: ----- ------- SPEC : [id number] RECD: 01/17/25 STATUS: ELLA MCKOY NUM: [id number] JUWAN: 01/16/[address] [facility] [address]: Jd Painter MD ENTERED: 01/17/25 [...] developed and their performance characteristics determined by [facility]. They have not been cleared or approved by the U.S. Food and Drug Administration (FDA). However, the FDA has determined that such clearance or approval is not necessary. This laboratory is certified under the Clinical Laboratory Improvement Amendments of 1988 (CLIA) as qualified to perform high complexity clinical laboratory testing. Copies To: Jd Painter MD [facility] [address] [place] [address] Dr [address] [place] [address] [email or web address] Name,Aneesh RIVERS [address] [place] [phone] CONTINUED ON NEXT PAGE ----- ------- Name: Josue Dawson Age/Sex: 74/M : 1950 Unit#: [id number] Attend Dr: Jd Painter MD Re01/16/25 Status: DEP REF Location: [facility] Disch: ----- ------- SPEC : [id number] RECD: 01/17/25 STATUS: ELLA MCKOY NUM: [id number] JUWAN: 01/16/[address] [facility] [address]: Jd Painter MD ENTERED: 01/17/25 SP TYPE: Cytology OT DR: Aneesh Oliveira MD ORDERED: Cyto-enhanced ----- ------- Signed (signature on file) Yevgeniy Avila MD 01/17/25 1504 ----- ------- END OF REPORT us Generic External Data Provider LAB CYTOLOGY ZENAIDA MAYER Final Result [facility] [address] [place] [phone] * (ABNORMAL) Lipid Panel, Standard (11/17/2024 10:29 AM EDT) Triglycerides 129 <150 mg/dL [facility] Comment:Desirable Triglyceri de: less than 150 mg/dLBorderline High Triglyceride 150-199 mg/dLHigh Triglyceride: 200-499 mg/dLVery High Triglyceride: greater than or equal to 5OO mg/dL Cholesterol 179 <200 mg/dL [facility] Comment:Desirable Cholestero l: less than 200 mg/dLBorderline High Cholesterol: 200-239 mg/dLHigh Cholesterol: greater than 239 mg/dL LDL Cholesterol Calculated 115(H) <100 mg/dL [facility] Comment:Desirable LDL: less than 100 mg/dLNear Optimal/Above Optimal LDL: 110- 129 mg/dLBorderline High LDL: 130-159 mg/dLHigh LDL: 160-189 mg/dLVery High LDL: greater than or equal to 190 mg/dL HDL Cholesterol 39(L) >40 mg/dL [facility] Comment:Desirable HDL: great er than 40 mg/dL Note: This HDL assay may give artificially low results in patients with liver disease. 11/17/2024 10:2 9 AM EDT 11/17/2024 10:29 AM EDT us Generic External Data Provider LAB BLOOD ORDERAB LES Final Result [facility] [address] [place] [phone] * (ABNORMAL) Colonoscopy (02/10/2023) Colonoscopy Abnormal(A ) Normal us Aneesh Name HEALTH MAINTENANCE Final Result * HEPATITIS C AB W/REFL TO HCV RNA, QN, PCR (11/25/2020 10:49 AM EDT) HEPATITIS C ANTIBODY NON-REACT TOM NON-REACT TOM [facility] INDEX 0.00 <1.00 [facility] Comment: HCV antibody was non-reactive. There is no laboratory evidence of HCV infection. In most cases, no further action is required. However, if recent HCV exposure is suspected, a test for HCV RNA (test code 50913) is suggested. For additional information please refer to http://education.[employer]/faq/RVY42r8 (This link is being provided for informational/ educational purposes only.) 11/25/2020 10:4 9 AM EDT us Aneesh Oliveira MD HISTORICAL/NON ORDERABLE LABS Fi nal Result [facility] [address] [place] [address], from Last 3 Months or Most Recently Relevant to Health Maintenance Insurance [facility] STANDARD UHC DUAL COMPLETE DENTAL - [facility] Care Teams [employer] Caretaker Relationship Specialty Start Date End Date Name, MD Aneesh [address] [place] [address] PCP - General Family Medicine 02/14/18 Sandra Rasheed, AnkushD [address] [place] [address] Pharmacist Internal Medicine 08/24/24
--- OUTSIDE RECORDS SUMMARY | 2025-04-05 09:43 | XMS_ITS | Encounter Summary ---
Author Organization [employer] Address 75 [facility] 7t [place] [address] Care Team Providers Care Telephone Directory Deliverer Name Role Phone Name, Aneesh RIVERS Primary Care Provider [phone] Sandra Rasheed PharmD Unavailable [phone] Reason for Visit * Reason Onset Date Comments Transition Of Care (Tcm) 04/04/2025 Encounter Details Date Type Department Care Team ([facility] st Contact Info) Description 04/04/2025 Telephone [facility] [address] [place] [address] Name, MD Aneesh 230 [place] [address] Transition Of Care (Tcm) Social History Tobacco Use Types Packs/Day Years [...] encounter Miscellaneous Notes * Telephone Encounter - Veronica Navarro RN - 04/04/2025 8:40 AM EDT Transition of Care Note Josue Mace is going through a recent transition of care. Emergency Room Visit Date: 04/03/2025 Facility: [facility] Diagnosis: URI Disposition: Discharged home Discharge summary in the chart: Yes Please contact for status check documented in this encounter Plan of Treatment Upcoming Encounters Date Type Department Care Team (Late st Contact Info) Description 04/16/2025 10:00 AM EST Medication Management [facility] [address] [place] [address] Sandra Rasheed, PharmD [address] [place] [address] 05/29/2025 9:30 AM EST Office Visit [facility] [address] [place] [address] Name, MD Aneesh [address] [place] [address] 06/03/2025 9:30 AM EST Office Visit [facility] [address] [place] [address] Jayne Huffman, OD 230 [place] [address] documented as of this encounter Visit Diagnoses Not on filedocumented in this encounter Additional Health Concerns Assessment Noted Time PHQ-9 Depression Total Score: 5 03/06/20 11:44 AM EDT documented as of this encounter Care Teams Telephone Directory Deliverer Relationship Specialty Start Date End Date Name, MD Aneesh [address] [place] [address] PCP - General Family Medicine 02/14/18 Sandra Rasheed PharmD [address] [place] [address] Pharmacist Internal Medicine 08/24/24 documented as of this encounter
--- OUTSIDE RECORDS SUMMARY | 2025-04-05 09:43 | XMS_ITS | Encounter Summary ---
Author Organization [employer] Address 75 [facility] 7t [place] [address] Care Team Providers Care Conservation Specialist Name Role Phone Name, Aneesh RIVERS Primary Care Provider [phone] Sandra Rasheed PharmD Unavailable [phone] Reason for Visit * Reason Comments Med Refill Encounter Details Date Type Department Care Team ([facility] st Contact Info) Description 06/25/2024 Refill [facility]INE [address] [place] [address] Name, MD Aneesh [address] [place] [address] Hypertension, unspecified type; Prostatism; Type 2 diabetes mellitus with hyperglycemia (CMS/HCC); 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 ([facility]) Social History Tobacco Use Types Packs/Day [...] 10:00 AM EST Medication Management [facility]ICINE [address] [place] [address] Sandra Rasheed, PharmD [address] [place] [address] 05/29/2025 9:30 AM EST Office Visit [facility] MEDICINE [address] [place] [address] Name, MD Aneesh [address] [place] [address] 06/03/2025 9:30 AM EST Office Visit [facility] OPTOMETRY [address] [place] [address] Jayne Huffman, OD 230 [place] [address] documented as of this encounter Visit Diagnoses Diagnosis Hypertension, unspecified type Prostatism Unspecified hyperplasia of prostate without urinary obstruction and other lower urinary tract symptoms (LUTS) Type 2 diabetes mellitus with hyperglycemia (HCC) 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
--- OUTSIDE RECORDS SUMMARY | 2025-04-05 09:43 | XMS_ITS | Encounter Summary ---
Author Organization [employer] Address 75 [facility] 7t [place] [address] Care Team Providers Care Director Of Officiating Name Role Phone Name, Aneesh RIVERS Primary Care Provider [phone] Sandra Rasheed PharmD Unavailable [phone] Encounter Details Date Type Department Care Team ([facility] st Contact Info) Description 04/04/2025 Telephone [facility] MEDICINE [address] [place] [address] Name, MD Aneesh [address] [place] [address] Social History Tobacco Use Types Packs/Day Years [...] Telephone Encounter - Kelly Mendez RN - 04/04/2025 10:14 AM EDT Pt evaluated in [facility] ED 04/03/25 Diagnosis: cough, bronchitis. Pt discharged home in stable condition with prescriptions for doxycycline 100 mg tablet po BID x 7 days and amoxicillin-pot clavulanate 875-125 mg tab-take 1 tab po BID x 7 days. T/C to pt for status check via [facility] onsite health coach Rosina #[id number]. Pt reports that he his cough is a lot better today. Reports cough is productive of white phlegm. Denies fever, sob. Repoorts he is taking meds prescribed in the ED as directed. Recommended that pt complete full course of antibiotics andthat pt call [facility] or RTC if symptoms worsen or persist beyond duration of treatment. Pt reports agree ment with plan. documented in this encounter Plan of Treatment Upcoming Encounters Date Type Department Care Team (Late st Contact Info) Description 04/16/2025 10:00 AM EST Medication Management [facility] MEDICINE [address] [place] [address] Sandra Rasheed, PharmD [address] [place] [address] 05/29/2025 9:30 AM EST Office Visit [facility] MEDICINE [address] [place] [address] Name, MD Aneesh 230 [place] [address] 06/03/2025 9:30 AM EST Office Visit [facility] OPTOMETRY [address] [place] [address] Nathanael, Jayne, OD 230 [place] [address] documented as of this encounter Visit Diagnoses Not on filedocumented in this encounter Additional Health Concerns Assessment Noted Time PHQ-9 Depression Total Score: 5 03/06/20 25 11:44 AM EDT documented as of this encounter Care Teams Director Of Officiating Relationship Specialty Start Date End Date Name, MD Aneesh [address] [place] [address] PCP - General Family Medicine 02/14/18 Sandra Rasheed PharmD [address] [place] [address] Pharmacist Internal Medicine 08/24/24 documented as of this encounter
== END 2025-04-05 09:44 | disposition home or self-care (01) ==
LOC: HO.PMC 08:52
PROVIDERS: PCP Internal Medicine Geriatric Medicine; Visit Provider Registered Nurse Emergency
DX: E11.65 Type 2 diabetes mellitus with hyperglycemia (principal); Z79.4 Long term (current) use of insulin; M54.16 Radiculopathy, lumbar region; M47.816 Spondylosis without myelopathy or radiculopathy, lumbar region
CPT/HCPCS: 99213; G2211

== ENCOUNTER → 2025-04-05 08:52 | Outpatient (BNVA) | payer OTHER, SELFPAY | PROVIDERS: PCP Internal Medicine Geriatric Medicine; Visit Provider Registered Nurse Emergency | DX: M47.26 Other spondylosis with radiculopathy, lumbar region (principal); E11.65 Type 2 diabetes mellitus with hyperglycemia; Z79.4 Long term (current) use of insulin | CPT/HCPCS: 99212 ==

== ENCOUNTER 2025-04-08 09:17 | Outpatient (REF) | payer OTHER, SELFPAY ==
--- NOTE | ~2025-04-08 | US_ITS ---
EXAMINATION: Noninvasive assessment of the bilateral lower extremities with ARTERIAL DUPLEX, ANKLE BRACHIAL INDICES (ABIs), and PULSE VOLUME RECORDINGS (PVRs). CLINICAL INFORMATION: I 73.9. Peripheral vascular disease status post angioplasty, left lower extremity. TECHNIQUE: Duplex Doppler techniques with waveform analysis and measurement of velocities in the bilateral common femoral, profunda femoris, superficial femoral, popliteal and tibial arteries were performed. Additionally, ankle pulse volume recordings, ankle pressure measurements and ankle brachial indices were obtained of the lower extremity arterial system bilaterally. The study was performed only at rest. COMPARISON: November 22, 2024 FINDINGS: DIRECT DUPLEX DOPPLER FINDINGS: RIGHT LEG: Common femoral artery: 161 cm/s, phasicity: Triphasic. Profunda femoris artery: 136 cm/s, phasicity: Biphasic. Spectral broadening. Superficial femoral artery (proximal): 114 cm/s, phasicity: Biphasic. Superficial femoral artery (mid): 127 cm/s, phasicity: Biphasic. Superficial femoral artery (distal): 57 cm/s, phasicity: Biphasic. Spectral broadening. Popliteal artery: 86 cm/s, phasicity: Biphasic. Spectral broadening. Posterior tibial artery: 79 cm/s, phasicity: Biphasic. Spectral broadening. Peroneal artery: No color Doppler flow. Anterior tibial artery: No color Doppler flow. Dorsalis pedis artery: 44 cm/s, phasicity:Monophasic. Spectral broadening. LEFT LEG: Common femoral artery: 140 cm/s, phasicity: Biphasic. Profunda femoris artery: 136 cm/s, phasicity: Biphasic. Superficial femoral artery (proximal): 117 cm/s, phasicity: Biphasic. Superficial femoral artery (mid): 125 cm/s, phasicity: Biphasic. Superficial femoral artery (distal): 89 cm/s, phasicity: Biphasic. Spectral broadening. Popliteal artery: 115 cm/s, phasicity: Biphasic. Spectral broadening. Posterior tibial artery: 95 cm/s, phasicity: Biphasic. Spectral broadening. Peroneal artery: No color Doppler flow. Anterior tibial artery: 30 cm/s, phasicity: Monophasic. Spectral broadening. Dorsalis pedis artery: 9 cm/s, phasicity: Monophasic. Spectral broadening. BRACHIAL PRESSURES: Right: More than 200 Left: 181. ANKLE PRESSURES: Right: PT more than 200., DP more than 200. Left: PT more than 200., DP more than 200. ANKLE-BRACHIAL INDEX: Right: Nondiagnostic. Left: Nondiagnostic. ANKLE PVR WAVEFORMS: Right: Abnormal Left: Abnormal US/US arterial duplex BI w/ BELEN IMPRESSION: Right leg: Probable occluded right anterior tibialis artery and peroneal artery. Severe inflow disease, dorsalis pedis artery. Left leg: Probable occluded anterior tibialis artery and peroneal artery. Severe inflow disease, dorsalis pedis artery. BELEN Reference: - >1.4 = calcified vessels - 0.9 - 1.4 = normal - no significant arterial disease - 0.7 - 0.89 = mild peripheral arterial disease - 0.51 - 0.69 = moderate peripheral arterial disease - 0.50 = severe peripheral arterial disease - < .30 = critical arterial disease Electronically signed by: Cheo Galindo MD 04/08/2025 11:29 AM EDT
--- OUTSIDE RECORDS SUMMARY | 2025-04-08 10:13 | XMS_ITS | Encounter Summary ---
Author Organization [employer] Address 75 [facility] 7t [place] [address] Care Team Providers Care Skid Road Man Name Role Phone Name, Aneesh RIVERS Primary Care Provider [phone] Sandra Rasheed PharmD Unavailable [phone] Reason for Visit * Reason Comments Med Refill Encounter Details Date Type Department Care Team ([facility] st Contact Info) Description 01/12/[address] [facility] PEDS [address] [place], [place] [phone] Name, MD Aneesh 230 [place] [address] Chronic low back pain, unspecified back pain [...] 10:00 AM EST Medication Management [facility] MEDICINE [address] [place] [address] Sandra Rasheed, PharmD [address] [place] [address] 05/29/2025 9:30 AM EST Office Visit [facility] MEDICINE [address] [place] [address] Aneesh Oliveira MD [address] [place] [address] 06/03/2025 9:30 AM EST Office Visit [facility] OPTOMETRY [address] [place] [address] Nathanael, Jayne, OD [address] [place] [address] documented as of this encounter Visit Diagnoses Diagnosis Chronic low back pain, unspecified back pain laterality, unspecified whether sciatica present documented in this encounter Additional Health Concerns Assessment Noted Time PHQ-9 Depression Total Score: 4 08/23/19 24 9:44 AM EDT documented as of this encounter Care Teams Skid Road Man Relationship Specialty Start Date End Date NameAneesh MD [address] [place] [address] PCP - General Family Medicine 02/14/18 Sandra Rasheed, Javi [address] [place] [address] Pharmacist Internal Medicine 08/24/24 documented as of this encounter
--- OUTSIDE RECORDS SUMMARY | 2025-04-08 10:13 | XMS_ITS | Encounter Summary ---
Author Organization [employer] Address 75 [facility] 7t [place] [address] Care Team Providers Care Director Database Name Role Phone Name, Aneesh RIVERS Primary Care Provider [phone] Sandra Rasheed PharmD Unavailable [phone] Reason for Visit * Reason Onset Date Comments Appointment Request 07/17/2024 Encounter Details Date Type Department Care Team ([facility] st Contact Info) Description 07/17/2024 Telephone [facility]INE [address] [place] [address] Name, MD Aneesh [address] [place] [address] Appointment Request Social History Tobacco Use Types [...] r/s apt for 07/17/24. Contact pt at [phone] documented in this encounter Plan of Treatment Upcoming Encounters Date Type Department Care Team ([facility] st Contact Info) Description 04/16/2025 10:00 AM EST Medication Management [facility] MED[facility]INE [address] [place] [address] Sandra Rasheed, PharmD [address] [place] [address] 05/29/2025 9:30 AM EST Office Visit [facility] MED[facility]INE [address] [place] [address] Name, MD Aneesh 230 [place] [address] 06/03/2025 9:30 AM EST Office Visit [facility] OPTOMETRY [address] [place] [address] Jayne Huffman, OD [address] [place] [address] documented as of this encounter Visit Diagnoses Not on filedocumented in this encounter Additional Health Concerns Assessment Noted Time PHQ-9 Depression Total Score: 4 08/23/19 24 9:44 AM EDT documented as of this encounter Care Teams Director Database Relationship Specialty Start Date End Date Name, MD Aneesh [address] [place] [address] PCP - General Family Medicine 02/14/18 Sandra Rasheed, Javi [address] [place] [address] Pharmacist Internal Medicine 08/24/24 documented as of this encounter
--- OUTSIDE RECORDS SUMMARY | 2025-04-08 10:13 | XMS_ITS | Encounter Summary ---
Author Organization [employer] Address 75 [facility] 7t [place] [address] Care Team Providers Care Lamination Technician Name Role Phone Name, Aneesh RIVERS Primary Care Provider [phone] Sandra Rasheed PharmD Unavailable [phone] Reason for Visit * Reason Comments Med Refill Encounter Details Date Type Department Care Team ([facility] st Contact Info) Description 08/19/2023 Refill [facility] MEDICINE [address] [place] [address] Name, MD Aneesh [address] [place] [address] Social History Tobacco Use Types Packs/Day Years [...] 10:00 AM EST Medication Management [facility] MEDICINE [address] [place] [address] Sandra Rasheed PharmD [address] [place] [address] 05/29/2025 9:30 AM EST Office Visit [facility] MEDICINE [address] [place] [address] Name, MD Aneesh [address] [place] [address] 06/03/2025 9:30 AM EST Office Visit [facility] OPTOMETRY [address] [place] [address] Nathanael, Jayne, OD [address] [place] [address] documented as of this encounter Visit Diagnoses Not on filedocumented in this encounter Care Teams Lamination Technician Relationship Specialty Start Date End Date Name, MD Aneesh [address] [place] [address] PCP - General Family Medicine 02/14/18 Sandra Rasheed, PharmD [address] [place] [address] Pharmacist Internal Medicine 08/24/24 documented as of this encounter
--- OUTSIDE RECORDS SUMMARY | 2025-04-08 10:13 | XMS_ITS | Encounter Summary ---
Author Organization [employer] Address 75 [facility] 7t [place] [address] Care Team Providers Care Customer Care Agent Name Role Phone Name, Aneesh RIVERS Primary Care Provider [phone] Sandra Rasheed PharmD Unavailable [phone] Reason for Visit * Reason Comments Med Refill Encounter Details Date Type Department Care Team ([facility] st Contact Info) Description 08/18/2023 Refill [facility] MEDICINE [address] [place], [place] [phone] Name, MD Aneesh 230 [place] [address] Social History Tobacco Use Types Packs/Day Years [...] Description 04/16/2025 10:00 AM EST Medication Management [facility] MEDICINE [address] [place] [address] Sandra Rasheed PharmD 230 [place] [address] 05/29/2025 9:30 AM EST Office Visit [facility] MEDICINE [address] [place] [address] Name, MD Aneehs [address] [place] [address] 06/03/2025 9:30 AM EST Office Visit [facility] OPTOMETRY [address] [place] [address] Nathanael, Jayne, OD [address] [place] [address] documented as of this encounter Visit Diagnoses Not on filedocumented in this encounter Care Teams Customer Care Agent Relationship Specialty Start Date End Date Name, MD Aneesh [address] [place] [address] PCP - General Family Medicine 02/14/18 Sandra Rasheed, PharmD [address] [place] [address] Pharmacist Internal Medicine 08/24/24 documented as of this encounter
--- OUTSIDE RECORDS SUMMARY | 2025-04-08 10:13 | XMS_ITS | Encounter Summary ---
Author Organization [employer] Address 75 [facility] 7t [place] [address] Care Team Providers Care Heel Painter Name Role Phone Name, Aneesh RIVERS Primary Care Provider [phone] Sandra Rasheed PharmD Unavailable [phone] Reason for Visit * Reason Onset Date Comments FYI 08/23/2023 Encounter Details Date Type Department Care Team ([facility] st Contact Info) Description 08/23/2023 Telephone [facility] MEDICINE [address] [place] [address] Name, MD Aneesh 230 [place] [address] FY Social History Tobacco Use Types Packs/Day [...] 3:03 PM EDT Tc from Leidy with [facility] stating pt no longer wants to continue care with them. Leidy stated pt no showed 3 appts in a row and when asked about it pt said it was due to to transportation. Pt claims they are irresponsible and that they don't communicate. Pt stated he will continue care with PCP. If any questions please contact Leidy at [phone]. documented in this encounter Plan of Treatment Upcoming Encounters Date Type Department Care Team (Late st Contact Info) Description 04/16/2025 10:00 AM EST Medication Management [facility] MEDICINE [address] [place] [address] Sandra Rasheed, PharmD 230 [place] [address] 05/29/2025 9:30 AM EST Office Visit [facility] MEDICINE [address] [place] [address] Name, MD Aneesh 230 [place] [address] 06/03/2025 9:30 AM EST Office Visit [facility] OPTOMETRY [address] [place] [address] Jayne Huffman, BRYANT 230 [place] [address] documented as of this encounter Visit Diagnoses Not on filedocumented in this encounter Additional Health Concerns Assessment Noted Time PHQ-9 Depression Total Score: 4 08/23/19 24 9:44 AM EDT documented as of this encounter Care Teams Heel Painter Relationship Specialty Start Date End Date Name, MD Aneesh 230 [place] [address] PCP - General Family Medicine 02/14/18 Sandra Rasheed PharmD 230 [place] [address] Pharmacist Internal Medicine 08/24/24 documented as of this encounter
--- OUTSIDE RECORDS SUMMARY | 2025-04-08 10:13 | XMS_ITS | Encounter Summary ---
Author Organization [employer] Address 75 [facility] 7t [place] [address] Care Team Providers Care Film Laboratory Technician Name Role Phone Name, Aneesh RIVERS Primary Care Provider [phone] Sandra Rasheed PharmD Unavailable [phone] Reason for Visit * Reason Comments Med Refill Encounter Details Date Type Department Care Team ([facility] st Contact Info) Description 05/02/2024 Refill [facility] MEDICINE [address] [place] [address] Name, MD Aneesh 230 [place] [address] Chronic constipation Social History Tobacco Use Types [...] ([facility] st Contact Info) Description 04/16/2025 10:00 AM EST Medication Management [facility] MEDICINE [address] [place] [address] Sandra Rasheed, PharmD [address] [place] [address] 05/29/2025 9:30 AM EST Office Visit [facility] MEDICINE [address] [place] [address] Aneesh Oliveira MD 230 [place] [address] 06/03/2025 9:30 AM EST Office Visit [facility] OPTOMETRY [address] [place] [address] Nathanael, Jayne, OD 230 [place] [address] documented as of this encounter Visit Diagnoses Diagnosis Chronic constipation Unspecified constipation documented in this encounter Additional Health Concerns Assessment Noted Time PHQ-9 Depression Total Score: 4 08/23/19 24 9:44 AM EDT documented as of this encounter Care Teams Film Laboratory Technician Relationship Specialty Start Date End Date Aneesh Oliveira MD [address] [place] [address] PCP - General Family Medicine 02/14/18 Sandra Rasheed, Javi [address] [place] [address] [phone] Pharmacist Internal Medicine 08/24/24 documented as of this encounter
--- OUTSIDE RECORDS SUMMARY | 2025-04-08 10:13 | XMS_ITS | Encounter Summary ---
Author Organization [employer] Address 75 [facility] 7t [place] [address] Care Team Providers Care Manager Market Research Name Role Phone Name, Aneesh RIVERS Primary Care Provider [phone] Sandra Rasheed PharmD Unavailable [phone] Reason for Visit * Reason Comments Med Refill Encounter Details Date Type Department Care Team ([facility] st Contact Info) Description 12/20/2024 Refill [facility] MEDICINE [address] [place] [address] Name, MD Aneesh [address] [place] [address] Left leg pain; Chronic low back pain, [...] Description 04/16/2025 10:00 AM EST Medication Management [facility] MEDICINE [address] [place] [address] Sandra Rasheed, PharmD [address] [place] [address] 05/29/2025 9:30 AM EST Office Visit [facility] MEDICINE [address] [place] [address] Name, MD Aneesh [address] [place] [address] 06/03/2025 9:30 AM EST Office Visit [facility] OPTOMETRY [address] [place] [address] Nathanael, Jayne, OD [address] [place] [address] documented as of this encounter Visit Diagnoses Diagnosis Left leg pain Pain in soft tissues of limb Chronic low back pain, unspecified back pain laterality, unspecified whether sciatica present documented in this encounter Additional Health Concerns Assessment Noted Time PHQ-9 Depression Total Score: 4 08/23/19 24 9:44 AM EDT documented as of this encounter Care Teams Manager Market Research Relationship Specialty Start Date End Date Name, MD Aneesh [address] [place] [address] PCP - General Family Medicine 02/14/18 Sandra Rasheed PharmD [address] [place] [address] Pharmacist Internal Medicine 08/24/24 documented as of this encounter
--- OUTSIDE RECORDS SUMMARY | 2025-04-08 10:13 | XMS_ITS | Encounter Summary ---
Author Organization [employer] Address [address] [facility] 7t [place] [address] Care Team Providers Care Senior Resident Care Director Name Role Phone Name, Aneesh RIVERS Primary Care Provider [phone] Sandra Rasheed PharmD Unavailable [phone] Encounter Details Date Type Department Care Team (Late st Contact Info) Description 04/03/2025 Orders Only [facility] External Provider, [employer] Social History Tobacco Use Types Packs/Day Years [...] Description 04/16/2025 10:00 AM EST Medication Management [facility] [address] [place] [address] Sandra Rasheed, PharmD [address] [place] [address] 05/29/2025 9:30 AM EST Office Visit [facility] [address] [place] [address] Name, MD Aneesh [address] [place] [address] 06/03/2025 9:30 AM EST Office Visit [facility] [address] [place] [address] Nathanael, Jayne, OD [address] [place] [address] documented as of this encounter Procedures Procedure Name Priority Date/Time Associated Diagnosis Comments XR KUB AND UPRIGHT 2 VIEWS Routine 04/03/2025 11:08 PM EDT XR CHEST 2 VIEWS Routine 04/03/2025 9:00 AM EDT INFLUENZA A B2 ID NOW ([facility]) Routine 04/03/2025 8:54 AM EDT COVID-19 ID [...] PM EDT Narrative 04/03/2025 11:10 PM EDT [address] [address] XRay Report Signed Patient: Josue Dawson MR#: [id number] : 1950 Acct:[id number] Age/Sex: 74 / M ADM Date: 04/03/25 Loc: HO.ED Attending Dr: Ordering Physician: Cherelle Peralta Date of Service: 04/03/25 Procedure(s): XR KUB Accession Number(s): [id number] cc: Cherelle Peralta; Name,Aneesh RIVERS Reason for [...] in OV> 04/03/252308 DD/ 07 TD/TT: 04/03/252307 Truck Hopper: Procedure Note Donotuseinterpreter, Image - 04/03/[address] [address] XRay Report Signed Patient: Josue DawsonMR#: [id number] : 1950cct:[id number] Age/Sex: 74 / MADM Date: 04/03/25 Loc: HO.ED Attending Dr: Ordering Physician: Cherelle Peralta Date of Service: 04/03/25 Procedure(s): XR KUB Accession Number(s): [id number] cc: Cherelle Peralta; Name,Aneesh RIVERS Reason for [...] in OV> 04/03/252308 DD/ 07 TD/TT: 04/03/252307 Truck Hopper: [facility] External Provider IMG XR PROCEDURES Edited Result - Final * XR Chest 2 Views (04/03/2025 9:00 AM EDT) Anatomical Region Laterality Modality Chest Radiographic Trang ging 04/03/2025 9:00 AM EDT Narrative 04/03/2025 9:10 AM EDT [place] [address] XRay Report Signed Patient: Josue Dawson MR#: [id number] : 1950 Acct:[id number] Age/Sex: 74 / M ADM Date: 04/03/25 Loc: HO.ED Attending Dr: Ordering Physician: Generic ED Physician Date of Service: 04/03/25 Procedure(s): XR chest 2V Accession Number(s): [id number] cc: Generic ED Physician; Name,Aneesh RIVERS Reason [...] in OV> 04/03/25907 DD/ 9 TD/TT: 04/03/25904 Truck Hopper: Procedure Note Donotuseinterpreter, Image - 04/03/[address] [address] XRay Report Signed Patient: Josue DawsonMR#: [id number] : 1950cct:[id number] Age/Sex: 74 / MADM Date: 04/03/25 Loc: .ED Attending Dr: Ordering Physician: Generic ED Physician Date of Service: 04/03/25 Procedure(s): XR chest 2V Accession Number(s): [id number] cc: Generic ED Physician; Name,Aneesh RIVERS Reason [...] OV> 04/03/25 09 DD/ 9 TD/TT: 04/03/25904 Truck Hopper: us [employer] External Provider IMG XR PROCEDURES Final Result * COVID-19 ID NOW (CAUSEY) (04/03/2025 8:54 AM EDT) IDNOW SERIAL# [id number] [facility] COVID-19 TEST Negative Negative [facility] COVID-19 NOTE See Note [facility] Comment: Results are for the identification of SARS-CoV2 RNA. TheSARS-CoV2 RNA is generally detectable in respiratory samplesduring the acute phase of infection. Positive results areindicative of the presence of SARS-CoV-2 RNA; clinicalcorrelation with patient history and other diagnosticinformation is necessary to determine patient infectionstatus. Positive results do not rule out bacterial infectionor co- infection with other viruses.Testing facilities within the [facility] are required to report all [...] LAB MOLECULAR MAME GNOSTICS ORDERABLES Final Result [facility] [address] [place] [phone] * Influenza A B2 ID NOW (Causey) (04/03/2025 8:54 AM EDT) IDNOW SERIAL# [id number] [facility] Influenza A Negative Negative [facility] Influenza B2 Negative Negative [facility] Influenza A B2 Note See Note [facility] Comment:The Causey ID NOW In [...] MICROBIOLOGY - GENERAL ORDERABLES Final Result [facility] [address] [place] [phone] * (ABNORMAL) Comprehensive Metabolic Panel (04/03/2025 8:54 AM EDT) Sodium 137 135 - 145 mmol/L [facility] Potassium 4.3 3.3 - 5.1 mmol/L [facility] Comment:Slight Hemolysis.Int erpret result with caution. Chloride 103 96 - 108 mmol/L [facility] Carbon Dioxide 27 22 - 29 mmol/L [facility] Anion Gap 11(L) 12 - 20 [facility] Urea Nitrogen (BUN) 21(H) 9 - 16 mg/dL [facility] Creatinine, Serum 1.14 0.5 - 1.4 mg/dL [facility] Creatinine Clr Calc Pharmacy 62.4 [facility] Comment:eGFR (calculated fro m the MDRD study equation) and eCrCl(calculated from the Cockcroft-Gault equation) are based ondifferent parameters and may not yield comparable results.If eCrCl result is absurd, please check patient'sheight/weight. Estimated Glomerular Filt Rate >60 [facility] Comment:Chronic Kidney Disea se: Estimated GFR < 60 mL/min/1.18k5Xrjiwr Kidney Disease: Estimated GFR < 15 mL/min/1.73m2 Glucose 253(H) 60 - 115 mg/dL [facility] Calcium 9.8 8.4 - 10.2 mg/dL [facility] Bilirubin, Total 0.4 0.0 - 1.0 mg/dL [facility] Aspartate Amino Transferase 55(H) 5 - 37 U/L [facility] Comment:Slight Hemolysis.Int erpret result with caution. Alanine Aminotransferase 74(H) 0 - 40 U/L [facility] Total Protein 7.5 6.5 - 8.0 g/dL [facility] Albumin Level 3.9 3.5 - 5.0 g/dL [facility] Alkaline Phosphatase 63 39 - 117 U/L [facility] 04/03/2025 8:54 AM EDT 04/03/2025 8:59 AM EDT us Generic External Data Provider LAB BLOOD ORDERAB LES Final Result [facility] [address] [place] [phone] * (ABNORMAL) CBC auto differential (04/03/2025 8:54 AM EDT) White Blood Count 9.7 4.8 - 10.8 X10*3/uL [facility] Red Blood Count 5.01 4.60 - 5.80 X10*6/uL [facility] Hemoglobin 14.9 14.0 - 18.0 g/dl [facility] Hematocrit 44.0 42.0 - 52.0 % [facility] Mean Corpuscular Volume 87.8 80.0 - 98.0 fL [facility] Mean Corpuscular Hemoglobin 29.7 27.0 - 33.0 pg [facility] Mean Corpuscular HGB Conc 33.9 31.0 - 36.0 g/dl [facility] Red Cell Distribution Width 13.3 11.0 - 16.0 % [facility] Platelet Count 312 160 - 400 X10*3/uL [facility] Mean Platelet Volume 10.1 9.4 - 12.4 fL [facility] Neutrophils Percent Auto 64.8 45 - 73 % [facility] Imm Gran Pct Auto 0.9(H) 0.0 - 0.4 % [facility] Lymphocytes Percent Auto 25.2 20 - 40 % [facility] Monocytes Percent Auto 6.6 2 - 11 % [facility] Eosinophils Percent Auto 1.9 0 - 4 % [facility] Basophils Percent Auto 0.6 0 - 2 % [facility] NRBC Pct Auto 0.0 0.0 - 0.2 /100WBC [facility] Neutrophils Absolute Auto 6.3 2.0 - 8.3 x10*3/uL [facility] Imm Gran Abs Auto 0.09(H) 0.00 - 0.03 X10*3/uL [facility] Lymphocytes Absolute Auto 2.4 1.2 - 4.9 X10*3/uL [facility] Monocytes Absolute Auto 0.6 0.1 - 1.2 X10*3/uL [facility] Eosinophils Absolute Auto 0.2 0.0 - 0.4 X10*3/uL [facility] Basophils Absolute Auto 0.1 0.0 - 0.2 X10*3/uL [facility] NRBC Abs Auto 0.000 0.0 - 0.012 X10*3/uL [facility] 04/03/2025 8:54 AM EDT 04/03/2025 8:59 AM EDT us Generic External Data Provider LAB BLOOD ORDERAB LES Final Result [facility] [address] [place] [phone] documented in this encounter Visit Diagnoses Not on filedocumented in this encounter Additional Health Concerns Assessment Noted Time PHQ-9 Depression Total Score: 5 03/06/20 11:44 AM EDT documented as of this encounter Care Teams Senior Resident Care Director Relationship Specialty Start Date End Date Name, MD Aneesh [address] [place] [address] PCP - General Family Medicine 02/14/18 Sandra Rasheed PharmD [address] [place] [address] Pharmacist Internal Medicine 08/24/24 documented as of this encounter
--- OUTSIDE RECORDS SUMMARY | 2025-04-08 10:13 | XMS_ITS | Encounter Summary ---
Author Organization [employer] Address [address] [facility] 7[address] [place] [address] Care Team Providers Care Alligator Hunter Name Role Phone Name, Aneesh RIVERS Primary Care Provider [phone] Sandra Rasheed PharmD Unavailable [phone] Encounter Details Date Type Department Care Team (Late st Contact Info) Description 03/23/2023 Orders Only [facility] [address] [place], [place] [phone] Amber Brantley LPN Social History Tobacco Use [...] Description 04/16/2025 10:00 AM EST Medication Management [facility] [address] [place] [address] Sandra Rasheed PharmD [address] [place] [phone] 05/29/2025 9:30 AM EST Office Visit [facility] [address] [place] [address] Name, MD Aneesh [address] [place] [address] 06/03/2025 9:30 AM EST Office Visit [facility] [address] [place] [address] Nathanael, Jayne, OD [address] [place] [address] documented as of this encounter Visit Diagnoses Not on filedocumented in this encounter Care Teams Alligator Hunter Relationship Specialty Start Date End Date Name, MD Aneesh [address] [place] [address] PCP - General Family Medicine 02/14/18 Sandra Rasheed PharmD [address] [place] [phone] Pharmacist Internal Medicine 08/24/24 documented as of this encounter
--- OUTSIDE RECORDS SUMMARY | 2025-04-08 10:13 | XMS_ITS | Clinical Summary ---
Author Organization [facility] Address [address] [place] [phone] Phone Care Team Providers Care Senior Pl Sql Developer Name Role Phone Name, Aneesh RIVERS Primary Care Provider [phone] Allergies Active Allergy Reactions Criticality Noted Date [...] 49 Years) Discontinued 02/17/2014, 03/15/2008, 04/14/2000 Insurance [facility] Dual [employer] [facility] Echo360 Care Teams Senior Pl Sql Developer Relationship Specialty Start Date End Date Name, MD Aneesh [address] [place] [phone] PCP - General 06/23/20
--- OUTSIDE RECORDS SUMMARY | 2025-04-08 10:14 | XMS_ITS | Data Portability ---
Author Organization [place] [facility] Address [address] [facility] [address] [place] [phone] Care Team Providers Care Sanitation Truck Driver Name Role Phone NAME, LAURENT Primary Care [...] vocal quality. I recommended he see a folder and notcher, voice specalist, to evaluate him and see if he would be a good candidate for a more permanent medialization procedure. Patient is willing and interested to travel to [place] to hear options. - Referral to [facility] Otolaryngology - Dr. Stafford or Dr. Machuca for discussion [email or web address] Not available 05/04/2024 08:27:45 Plan of Treatment Reminders Order Date Submit Date Provider Last Modified By Organization Details Last Modified Time Details Appointments None recorded. Lab None recorded. Referral otolaryngol ogist referral - Attn: Birgit. Dr. Machuca or Dr. Stafford - bilateral vocal cord paralysis. 2023 024 [email or web address] 2 [facility] Otolaryngolog y, [address] [facility], [facility], [place], [address], 4 10:41:11 Procedures None recorded. Surgeries None recorded. Imaging None recorded. Medication Orders None recorded. Patient TargetsNo targets recorded. Patient InstructionsNo instructions recorded. Reason for Referral Online Marketing Manager Referral fo r Dysphonia Attn: Birgit. Dr. Machuca or Dr. Stafford - bilateral vocal cord paralysis. Referring Physician: Ryan Maya, Otolaryngology, Encounter Date: 05/03/2024 Problems Name Problem SNOMED Code Status Onset Date Resolution Date Notes Provider Name and Address Organization Details Recorded Time Paralysis of larynx 06790481 Active 2018 Paralysis of vocal cords and larynx, unspecifie d; Note: Date Diagnosed: 12/25/2018 2:49 PM (J38.00) Not Available [facility] 4 03:24:49 Dysphonia 15740048 Active 2018 Hoarseness ; Note: Date Diagnosed: 12/25/2018 2:49 PM (R49.0) Not Available [facility] 4 03:24:49 Simple goiter 873444485 Active 2018 Goiter NOS; Note: Date Diagnosed: 12/25/2018 2:49 PM (E04.9) Not Available [facility] 4 03:24:49 Paralysis of larynx 55953186 Active 2023 RYAN MAYA MD [address] [place] [address], [phone] , [facility] 4 08:24:41 Problem Notes None recorded. Procedures Surgical History Date Name Laterality Status Provider Name and Address Organization Details Recorded Time 05/03/20 24 Fiberoptic Laryngoscopy (Comprehensive) completed RYAN MAYA MD [address] [place] [address], [place], [phone], [facility] 05/04/2024 08:24:07 Imaging Results None recorded. Procedure [...] Updated DateTime 05/03/2024 167.64 cm 34.7 kg/m2 28252.36 g Dimagiovanny Ramírez [place] [facility] 05/03/2024 13:28:04 Social History None recorded. Functional Status None recorded. Mental Status None recorded. Family History Nothing Reported. Medical History No medical history recorded. Past Encounters Encounter ID Performer Location Encounter Start Date Encounter Closed Date Diagnosis/Indication Diagnosis SNOMED-CT Code Diagnosis ICD10 Code Diagnosis IMO Codes Diagnosis Note [id number] RYAN MAYA MD [facility] [address] [phone] 05/03/2024 13:04:26 05/03/2024 16:54:58 Paralysis of larynx 42988851 J38.02 Dysphonia 09739867 R49.9 Health Concerns Section Related Observation LastModified by Organization Detai ls LastModified Time None Recorded Concern Status LastModified by Organization Details LastModified Time None Recorded Advance Directives Directive None Recorded Payers Insurance Date Sequence Insurance Name Policy Number Policy Hood Covered Member ID Hood Member ID Guarantor Name 05/03/2024 1 [facility] (MEDICARE REPLACEMENT/ ADVANTAGE - HMO) Josue Mace [id number] Josue Mace 05/02/2024 2 [place] Josue Mace [id number] Josue Mace Notes Date Note Type Note Provider Name and Address Organization Details Recorded Time 05/03/2024 text/html ROS as noted in the HPI 73yo gentleman who presents today for evaluation of bilateral vocal cord paralysis and dysphonia. He has had difficulty with his voice for about 5 years. He underwent a traumatic intubation at [facility] in 2018 in the setting of an anaphylactic event. Following, this resulted in dysphonia and dyspnea with exertion. He was seen by otolaryngology in [place] - Dr. oJhn Coppola. At that time, he was told [...] 81 & clopidogrel. RYAN MAYA MD [address] [place] [address], [place], [phone], [place] [facility] 05/04/2024 20:31:01
--- OUTSIDE RECORDS SUMMARY | 2025-04-08 10:14 | XMS_ITS | Clinical Summary ---
Author Organization [employer] Address [address] [facility] 7[address] [place] [address] Care Team Providers Care Senior Procurement Manager Name Role Phone Name, Aneesh RIVERS Primary Care Provider [phone] Sandra Rasheed PharmD Unavailable [phone] Allergies Active Allergy Reactions Criticality Noted [...] 2 times daily. Active insulin pen needle ([employer] SafePack Pen Needle) 32G x 4 mm miscIndications: Type 2 diabetes mellitus with hyperglycemia ([facility]) Use to inject insulin 4 times daily 200 each Active glucose blood (Inspirisuch Ultra) test stripIndications :Type 2 diabetes mellitus with hyperglycemia ([facility]) TEST BLOOD SUGAR THREE TIMES DAILY 100 strip Active metFORMIN (Glucophage) 1000 MG tabletIndication s:Type 2 diabetes mellitus with other specified complication, without long-term current use of insulin ([facility]) TAKE 1 TABLET BY MOUTH TWICE [...] hyperglycemia, with long-term current use of insulin ([facility]) Inject 0.75 mL (2 mg) under the skin 1 (one) time per week. 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 (CMS/HCC) (HCC) INJECT [...] injectionIndicat ions:Type 2 diabetes mellitus with hyperglycemia (HCC),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 (CMS/HCC) ([facility]) INJECT 80 UNITS SUBCUTANEOUSLY EVERY DAY [...] Type Department Care Team Description 04/04/2025 Telephone [facility] MEDICINE [address] [place] [address] Aneesh Oliveira MD 04/04/2025 Telephone [facility] MEDICINE [address] [place] [phone] Aneesh Oliveira MD Transition Of Care (Tcm) 04/03/2025 Orders Only [facility] External Provider, [facility] 04/01/2025 Refill [facility] MEDICINE [address] [place] [address] Aneesh Oliveira MD Type 2 diabetes mellitus with other specified complication, without long-term current use of insulin (HCC) (Primary Dx) 03/06/2025 11:00 AM EDT Office Visit [address] [address] Aneesh Oliveira MD Type 2 diabetes mellitus with other specified complication, without long-term current use of insulin (CMS/HCC) (Primary Dx); Stage 3a chronic kidney disease (CMS/HCC); Hypertension, unspecified type; Chronic low back pain, unspecified back pain laterality, unspecified whether sciatica present; Generalized osteoarthritis; Encounter for immunization 03/06/2025 Travel 02/18/2025 Telephone [facility] CHC MED & PEDS [address] [place], [place] [phone] Aneesh Oliveira MD Chart Prep 02/04/2025 Travel 02/01/2025 Refill [facility] MEDICINE [address] [place] [address] Sandra Rasheed, PharmD Type 2 diabetes mellitus with hyperglycemia (CMS/HCC); half-way (current) use of insulin (CMS/HCC) 01/24/2025 Refill [facility] MEDICINE [address] [place] [address] Name, MD Aneesh Chronic low back pain, unspecified back pain laterality, unspecified whether sciatica present 01/22/2025 Refill [facility] MEDICINE [address] [place] [address] Sandra Rasheed, Javi Type 2 diabetes mellitus with hyperglycemia ([facility]); 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 ([facility]) 01/20/2025 Orders Only GENERIC EXTERNAL DATA [...] Description 04/16/2025 10:00 AM EST Medication Management [facility] MEDICINE [address] [place], [place] [phone] Sandra Rasheed, PharmD [address] [place] [address] 05/29/2025 9:30 AM EST Office Visit [facility] MEDICINE [address] [place] [address] Name, MD Aneesh [address] [place] [address] 06/03/2025 9:30 AM EST Office Visit [facility] OPTOMETRY [address] [place] [address] NathanaelJayne agudelo, OD [address] [place] [address] Health Maintenance Due Date Last Done Comments [...] PM EDT Narrative 04/03/2025 11:10 PM EDT [address] [address] XRay Report Signed Patient: Josue Dawson MR#: [id number] : 1950 Acct:[id number] Age/Sex: 74 / M ADM Date: 04/03/25 Loc: HO.ED Attending Dr: Ordering Physician: Cherelle Peralta Date of Service: 04/03/25 Procedure(s): XR KUB Accession Number(s): [id number] cc: Cherelle Peralta; Name,Aneesh RIVERS Reason for [...] in OV> 04/03/252308 DD/ 07 TD/TT: 04/03/252307 Dining Room Host: Procedure Note Donotuseinterpreter, Image - 04/03/[address] [address] XRay Report Signed Patient: Josue DawsonMR#: [id number] : 1950cct:[id number] Age/Sex: 74 / MADM Date: 04/03/25 Loc: HO.ED Attending Dr: Ordering Physician: Cherelle Peralta Date of Service: 04/03/25 Procedure(s): XR KUB Accession Number(s): [id number] cc: Cherelle Peralta; Name,Aneesh RIVERS Reason for [...] in OV> 04/03/252308 DD/ 07 TD/TT: 04/03/252307 Dining Room Host: [facility] External Provider IMG XR PROCEDURES Edited Result - Final * XR Chest 2 Views (04/03/2025 9:00 AM EDT) Anatomical Region Laterality Modality Chest Radiographic Trang ging 04/03/2025 9:00 AM EDT Narrative 04/03/2025 9:10 AM EDT [place] [address] XRay Report Signed Patient: Josue Dawson MR#: [id number] : 1950 Acct:[id number] Age/Sex: 74 / M ADM Date: 04/03/25 Loc: .ED Attending Dr: Ordering Physician: Generic ED Physician Date of Service: 04/03/25 Procedure(s): XR chest 2V Accession Number(s): [id number] cc: Generic ED Physician; Name,Aneesh RIVERS Reason [...] in OV> 04/03/25907 DD/ 9 TD/TT: 04/03/25904 Dining Room Host: Procedure Note Donotuseinterpreter, Image - 04/03/[address] [address] XRay Report Signed Patient: Josue DawsonMR#: [id number] : 1950cct:[id number] Age/Sex: 74 / MADM Date: 04/03/25 Loc: .ED Attending Dr: Ordering Physician: Generic ED Physician Date of Service: 04/03/25 Procedure(s): XR chest 2V Accession Number(s): [id number] cc: Generic ED Physician; Name,Aneesh RIVERS Reason [...] in OV> 04/03/25907 DD/ 9 TD/TT: 04/03/25904 Dining Room Host: [facility] External Provider IMG XR PROCEDURES Final Result * Influenza A B2 ID NOW (Causey) (04/03/2025 8:54 AM EDT) IDNOW SERIAL# [id number] [facility] Influenza A Negative Negative [facility] Influenza B2 Negative Negative [facility] Influenza A B2 Note See Note [facility] Comment:The Causey ID NOW In [...] LAB MICROBIOLOGY - GENERAL ORDERABLES Final Result [facility] [address] [place] [phone] * COVID-19 ID NOW (CAUSEY) (04/03/2025 8:54 AM EDT) IDNOW SERIAL# [id number] [facility] COVID-19 TEST Negative Negative [facility] COVID-19 NOTE See Note [facility] Comment: Results are for the identification of SARS-CoV2 RNA. TheSARS-CoV2 RNA is generally detectable in respiratory samplesduring the acute phase of infection. Positive results areindicative of the presence of SARS-CoV-2 RNA; clinicalcorrelation with patient history and other diagnosticinformation is necessary to determine patient infectionstatus. Positive results do not rule out bacterial infectionor co- infection with other viruses.Testing facilities within the [facility] and itsterritories are required to report all [...] use by authorized laboratories.Testing performed on the Social Touch ID NOW utilizing NAAT. 04/03/2025 8:54 AM EDT 04/03/2025 8:59 AM EDT us Generic External Data Provider LAB MOLECULAR MAME GNOSTICS ORDERABLES Final Result [facility] [address] [place], [place] [phone] * (ABNORMAL) CBC auto differential (04/03/2025 8:54 AM EDT) White Blood Count 9.7 4.8 - 10.8 X10*3/uL [facility] Red Blood Count 5.01 4.60 - 5.80 X10*6/uL [facility] Hemoglobin 14.9 14.0 - 18.0 g/dl [facility] Hematocrit 44.0 42.0 - 52.0 % [facility] Mean Corpuscular Volume 87.8 80.0 - 98.0 fL [facility] Mean Corpuscular Hemoglobin 29.7 27.0 - 33.0 pg [facility] Mean Corpuscular HGB Conc 33.9 31.0 - 36.0 g/dl [facility] Red Cell Distribution Width 13.3 11.0 - 16.0 % [facility] Platelet Count 312 160 - 400 X10*3/uL [facility] Mean Platelet Volume 10.1 9.4 - 12.4 fL [facility] Neutrophils Percent Auto 64.8 45 - 73 % [facility] Imm Gran Pct Auto 0.9(H) 0.0 - 0.4 % [facility] Lymphocytes Percent Auto 25.2 20 - 40 % [facility] Monocytes Percent Auto 6.6 2 - 11 % [facility] Eosinophils Percent Auto 1.9 0 - 4 % [facility] Basophils Percent Auto 0.6 0 - 2 % [facility] NRBC Pct Auto 0.0 0.0 - 0.2 /100WBC [facility] Neutrophils Absolute Auto 6.3 2.0 - 8.3 x10*3/uL [facility] Imm Gran Abs Auto 0.09(H) 0.00 - 0.03 X10*3/uL [facility] Lymphocytes Absolute Auto 2.4 1.2 - 4.9 X10*3/uL [facility] Monocytes Absolute Auto 0.6 0.1 - 1.2 X10*3/uL [facility] Eosinophils Absolute Auto 0.2 0.0 - 0.4 X10*3/uL [facility] Basophils Absolute Auto 0.1 0.0 - 0.2 X10*3/uL [facility] NRBC Abs Auto 0.000 0.0 - 0.012 X10*3/uL [facility] 04/03/2025 8:54 AM EDT 04/03/2025 8:59 AM EDT us Generic External Data Provider LAB BLOOD ORDERAB LES Final Result [facility] [address] [place] [phone] * (ABNORMAL) Comprehensive Metabolic Panel (04/03/2025 8:54 AM EDT) Sodium 137 135 - 145 mmol/L [facility] Potassium 4.3 3.3 - 5.1 mmol/L [facility] Comment:Slight Hemolysis.Int erpret result with caution. Chloride 103 96 - 108 mmol/L [facility] Carbon Dioxide 27 22 - 29 mmol/L [facility] Anion Gap 11(L) 12 - 20 [facility] Urea Nitrogen (BUN) 21(H) 9 - 16 mg/dL [facility] Creatinine, Serum 1.14 0.5 - 1.4 mg/dL [facility] Creatinine Clr Calc Pharmacy 62.4 [facility] Comment:eGFR (calculated fro m the MDRD study equation) and eCrCl(calculated from the Cockcroft-Gault equation) are based ondifferent parameters and may not yield comparable results.If eCrCl result is absurd, please check patient'sheight/weight. Estimated Glomerular Filt Rate >60 [facility] Comment:Chronic Kidney Disea se: Estimated GFR < 60 mL/min/1.88j7Fncost Kidney Disease: Estimated GFR < 15 mL/min/1.73m2 Glucose 253(H) 60 - 115 mg/dL [facility] Calcium 9.8 8.4 - 10.2 mg/dL [facility] Bilirubin, Total 0.4 0.0 - 1.0 mg/dL [facility] Aspartate Amino Transferase 55(H) 5 - 37 U/L [facility] Comment:Slight Hemolysis.Int erpret result with caution. Alanine Aminotransferase 74(H) 0 - 40 U/L [facility] Total Protein 7.5 6.5 - 8.0 g/dL [facility] Albumin Level 3.9 3.5 - 5.0 g/dL [facility] Alkaline Phosphatase 63 39 - 117 U/L [facility] 04/03/2025 8:54 AM EDT 04/03/2025 8:59 AM EDT us Generic External Data Provider LAB BLOOD ORDERAB LES Final Result [facility] [address] [place] [phone] * (ABNORMAL) POCT Glucose (03/06/2025 11:00 [...] AM EDT Narrative 01/20/2025 11:48 AM EDT [place] [address] CT Scan Report Signed Patient: Josue Dawson MR#: [id number] : 1950 Acct:[id number] Age/Sex: 74 / M ADM Date: 01/20/25 Loc: HO.ED Attending Dr: Ordering Physician: Armaan Clark Date of Service: 01/20/25 Procedure(s): CT abdomen pelvis w IV con Accession Number(s): [id number] cc: Armaan Clark; Name,Aneesh RIVERS Report Number: [id number]: Total DLP = 695.00 mGy-cm CLINICAL HISTORY: [...] 01/20/25 114 DD/ 45 TD/TT: 01/20/25 114 Dining Room Host: Procedure Note Donotuseinterpreter, Image - 01/20/[address] [place] [address] [address] Scan Report Signed Patient: Josue DawsonMR#: [id number] : 1950cct:[id number] Age/Sex: 74 / MADM Date: 01/20/25 Loc: .ED Attending Dr: Ordering Physician: Armaan Clark Date of Service: 01/20/25 Procedure(s): CT abdomen pelvis w IV con Accession Number(s): [id number] cc: Armaan Clark; Name,Aneesh RIVERS Report Number: [id number]: Total DLP = 695.00 mGy-cm CLINICAL HISTORY: [...] 01/20/25 1147 DD/ 45 TD/TT: 01/20/25 1146 Dining Room Host: [facility] External Provider IMG CT PROCEDURES Edited Result - Final * (ABNORMAL) Urinalysis, Complete, with Reflex to Culture (01/20/2025 11:26 AM EDT) Color Urine Yellow [facility] Appearance Urine Clear [facility] PH 7.0 5.0 - 9.0 [facility] Glucose Urine UA >=1000(A) Negative mg/dL [facility] Urine Blood Negative Negative [facility] Specific [place] - Urine 1.025 1.005 - 1.025 [facility] Urine Protein 300 (3+)(A) Neg-Trace mg/dL [facility] Urine Ketones Negative Negative mg/dL [facility] Nitrite Urine Negative Negative [facility] Leukocyte Esterase Urine Negative Negative [facility] RBC Urine 0-2 0 - 2 /HPF [facility] Urine WBC 0-5 0 - 5 /HPF [facility] Urine Squamous Epithelial Cell 0-2 0 - 2 /HPF [facility] Urine Bacteria None Seen None Seen [facility] Hyaline Casts, Urine 0-2 0 - 2 /LPF [facility] 01/20/2025 11:2 6 AM EDT 01/20/2025 11:46 AM EDT Narrative [facility] - 01/20/2025 11:56 AM EDT [id number], [employer] Generic External Data Provider LAB URINE ORDERAB LES Final Result [facility] [address] [place] [phone] * (ABNORMAL) Basic Metabolic Panel (01/16/2025 9:22 AM EDT) Sodium 139 135 - 145 mmol/L [facility] Potassium 3.7 3.3 - 5.1 mmol/L [facility] Chloride 102 96 - 108 mmol/L [facility] Carbon Dioxide 29 22 - 29 mmol/L [facility] Anion Gap 12 12 - 20 [facility] Urea Nitrogen (BUN) 23(H) 9 - 16 mg/dL [facility] Creatinine, Serum 1.08 0.5 - 1.4 mg/dL [facility] Estimated Glomerular Filt Rate >60 [facility] Comment:Chronic Kidney Disea se: Estimated GFR < 60 mL/min/1.12i9Xmfoqt Kidney Disease: Estimated GFR < 15 mL/min/1.73m2 Glucose 170(H) 60 - 115 mg/dL [facility] Calcium 10.0 8.4 - 10.2 mg/dL [facility] 01/16/2025 9:22 AM EDT 01/16/2025 9:22 AM EDT us Generic External Data Provider LAB BLOOD ORDERAB LES Final Result Performing Organization Address City/State/[facility] Co de Phone Number [facility] [address] [place] [phone] [phone] * (ABNORMAL) Urinalysis Complete (01/16/2025 9:19 AM EDT) Color Urine Yellow [facility] Appearance Urine Clear [facility] PH 5.5 5.0 - 9.0 [facility] Glucose Urine UA >=1000(A) Negative mg/dL [facility] Urine Blood Negative Negative [facility] Specific [place] - Urine 1.020 1.005 - 1.025 [facility] Urine Protein 300 (3+)(A) Neg-Trace mg/dL [facility] Urine Ketones Negative Negative mg/dL [facility] Nitrite Urine Negative Negative [facility] Leukocyte Esterase Urine Negative Negative [facility] RBC Urine 0-2 0 - 2 /HPF [facility] Urine WBC 0-5 0 - 5 /HPF [facility] Urine Squamous Epithelial Cell 0-2 0 - 2 /HPF [facility] Urine Bacteria None Seen None Seen [facility] Hyaline Casts, Urine 3-5 0 - 2 /LPF [facility] 01/16/2025 9:19 AM EDT 01/16/2025 9:48 AM EDT us Generic External Data Provider LAB URINE ORDERAB LES Final Result [facility] [address] [place] [phone] * Cytopath-cell enhanced (01/16/2025 9:09 AM EDT) 01/16/2025 9:09 AM EDT 01/17/2025 8:15 AM EDT Narrative [facility] - 01/17/2025 3:04 PM EDT ----- ------- Name: Josue Dawson Age/Sex: 74/M : 1950 Unit#: [id number] Attend Dr: Jd Painter MD Re01/16/25 Status: DEP REF Location: .LAB Disch: ----- ------- SPEC : [id number] RECD: 01/17/25 STATUS: ELLA MCKOY NUM: [id number] JUWAN: 01/16/[address] [facility] [address]: Jd Painter MD ENTERED: 01/17/25 SP [...] developed and their performance characteristics determined by [facility]. They have not been cleared or approved by the U.S. Food and Drug Administration (FDA). However, the FDA has determined that such clearance or approval is not necessary. This laboratory is certified under the Clinical Laboratory Improvement Amendments of 1988 (CLIA) as qualified to perform high complexity clinical laboratory testing. Copies To: Jd Painter MD [facility] [address] [place] [address] Dr [address] [place] [address] [email or web address] Name,Aneesh RIVERS [address] [place] [phone] CONTINUED ON NEXT PAGE ----- ------- Name: Josue Dawson Age/Sex: 74/M : 1950 Unit#: [id number] Attend Dr: Jd Painter MD Re01/16/25 Status: DEP REF Location: [facility] Disch: ----- ------- SPEC : [id number] RECD: 01/17/25 STATUS: ELLA MCKOY NUM: [id number] JUWAN: 01/16/[address] [facility] [address]: Jd Painter MD ENTERED: 01/17/25 SP TYPE: Cytology OT DR: Aneesh Oliveira MD ORDERED: Cyto-enhanced ----- ------- Signed (signature on file) Yevgeniy Avila MD 01/17/25 1504 ----- ------- END OF REPORT us Generic External Data Provider LAB CYTOLOGY ZENAIDA MAYER Final Result [facility] [address] [place] [phone] * (ABNORMAL) Lipid Panel, Standard (11/17/2024 10:29 AM EDT) Triglycerides 129 <150 mg/dL [facility] Comment:Desirable Triglyceri de: less than 150 mg/dLBorderline High Triglyceride 150-199 mg/dLHigh Triglyceride: 200-499 mg/dLVery High Triglyceride: greater than or equal to 5OO mg/dL Cholesterol 179 <200 mg/dL [facility] Comment:Desirable Cholestero l: less than 200 mg/dLBorderline High Cholesterol: 200-239 mg/dLHigh Cholesterol: greater than 239 mg/dL LDL Cholesterol Calculated 115(H) <100 mg/dL [facility] Comment:Desirable LDL: less than 100 mg/dLNear Optimal/Above Optimal LDL: 110- 129 mg/dLBorderline High LDL: 130-159 mg/dLHigh LDL: 160-189 mg/dLVery High LDL: greater than or equal to 190 mg/dL HDL Cholesterol 39(L) >40 mg/dL [facility] Comment:Desirable HDL: great er than 40 mg/dL Note: This HDL assay may give artificially low results in patients with liver disease. 11/17/2024 10:2 9 AM EDT 11/17/2024 10:29 AM EDT us Generic External Data Provider LAB BLOOD ORDERAB LES Final Result [facility] [address] [place] [address] [phone] * (ABNORMAL) Colonoscopy (02/10/2023) Colonoscopy Abnormal(A [...] a test for HCV RNA (test code 47218) is suggested. For additional information please refer to http://education.[facility]/faq/ZFD54f5 (This link is being provided for informational/ educational purposes only.) 11/25/2020 10:4 9 AM EDT us Aneesh Oliveira MD HISTORICAL/NON ORDERABLE LABS Fi nal Result [facility] [address] [place] [address], from Last 3 Months or Most Recently Relevant to Health Maintenance Insurance [facility] STANDARD UHC DUAL COMPLETE DENTAL - [facility] Care Teams Senior Procurement Manager Relationship Specialty Start Date End Date Name, MD Aneesh [address] [place] [address] PCP - General Family Medicine 02/14/18 Sandra Rasheed, AnkushD [address] [place] [address] Pharmacist Internal Medicine 08/24/24
--- OUTSIDE RECORDS SUMMARY | 2025-04-08 10:14 | XMS_ITS | Encounter Summary ---
Author Organization [employer] Address [address] [facility] [address] [place] [address] Care Team Providers Care Muck Hauler Name Role Phone Name, Aneesh RIVERS Primary Care Provider [phone] Sandra Rasheed PharmD Unavailable [phone] Reason for Visit * Reason Comments Med Refill Encounter Details Date Type Department Care Team ([facility] Contact Info) Description 04/09/2024 Refill [facility] [address] [place], [place] [phone] Name, MD Aneesh [address] [place] [address] Chronic low back pain, unspecified back pain [...] Description 04/16/2025 10:00 AM EST Medication Management [facility] [address] [place] [phone] Sandra Rasheed, PharmD [address] [place] [phone] 05/29/2025 9:30 AM EST Office Visit [facility] [address] [place] [phone] Aneesh Oliveira MD [address] [place] [phone] 06/03/2025 9:30 AM EST Office Visit [facility] [address] [place] [address] Nathanael, Jayne, OD [address] [place] [address] documented as of this encounter Visit Diagnoses Diagnosis Chronic low back pain, unspecified back pain laterality, unspecified whether sciatica present documented in this encounter Additional Health Concerns Assessment Noted Time PHQ-9 Depression Total Score: 4 08/23/19 24 9:44 AM EDT documented as of this encounter Care Teams Muck Hauler Relationship Specialty Start Date End Date NameAneesh MD [address] [place] [phone] PCP - General Family Medicine 02/14/18 Sandra Rasheed, Javi [address] [place] [phone] Pharmacist Internal Medicine 08/24/24 documented as of this encounter
--- OUTSIDE RECORDS SUMMARY | 2025-04-08 10:14 | XMS_ITS | Encounter Summary ---
Author Organization [employer] Address 75 [facility] 7t [place] [address] Care Team Providers Care Foundry Superintendant Name Role Phone Name, Aneesh RIVERS Primary Care Provider [phone] Sandra Rasheed PharmD Unavailable [phone] Reason for Visit * Reason Comments Med Refill Encounter Details Date Type Department Care Team ([facility] st Contact Info) Description 06/25/2024 Refill [facility] [address] [place] [address] Name, MD Aneesh [address] [place] [address] Hypertension, unspecified type; Prostatism; Type 2 diabetes mellitus with hyperglycemia (CMS/HCC); 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 ([facility]) Social History Tobacco Use Types Packs/Day Years [...] Description 04/16/2025 10:00 AM EST Medication Management [facility] [address] [place] [address] Sandra Rasheed, PharmD [address] [place] [address] 05/29/2025 9:30 AM EST Office Visit [facility] [address] [place] [address] Name, MD Aneesh [address] [place] [address] 06/03/2025 9:30 AM EST Office Visit [facility] [address] [place] [address] Jayne Huffman, OD [address] [place] [address] documented as of this encounter Visit Diagnoses Diagnosis Hypertension, unspecified type Prostatism Unspecified hyperplasia of prostate without urinary obstruction and other lower urinary tract symptoms (LUTS) Type 2 diabetes mellitus with hyperglycemia (HCC) 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
--- OUTSIDE RECORDS SUMMARY | 2025-04-08 10:14 | XMS_ITS | Encounter Summary ---
Author Organization [employer] Address 75 [facility] 7t [place] [address] Care Team Providers Care Correctional Officer Lieutenant Name Role Phone Name, Aneesh RIVERS Primary Care Provider [phone] Sandra Rasheed PharmD Unavailable [phone] Reason for Visit * Reason Onset Date Comments Transition Of Care (Tcm) 04/04/2025 Encounter Details Date Type Department Care Team ([facility] st Contact Info) Description 04/04/2025 Telephone [facility] [address] [place] [address] Name, MD Aneesh [address] [place] [address] Transition Of Care (Tcm) Social History Tobacco [...] care. Emergency Room Visit Date: 04/03/2025 Facility: [facility] Diagnosis: URI Disposition: Discharged home Discharge summary in the chart: Yes Please contact for status check documented in this encounter Plan of Treatment Upcoming Encounters Date Type Department Care Team (Late st Contact Info) Description 04/16/2025 10:00 AM EST Medication Management [facility] MEDICINE [address] [place] [address] Sandra Rasheed, PharmD [address] [place] [address] 05/29/2025 9:30 AM EST Office Visit [facility] [address] [place] [address] Name, MD Aneesh [address] [place] [address] 06/03/2025 9:30 AM EST Office Visit [facility] OPTOMETRY [address] [place] [address] Jayne Huffman, OD [address] [place] [address] documented as of this encounter Visit Diagnoses Not on filedocumented in this encounter Additional Health Concerns Assessment Noted Time PHQ-9 Depression Total Score: 5 03/06/20 11:44 AM EDT documented as of this encounter Care Teams Correctional Officer Lieutenant Relationship Specialty Start Date End Date Name, MD Aneesh [address] [place] [address] PCP - General Family Medicine 02/14/18 Sandra Rasheed PharmD [address] [place] [address] Pharmacist Internal Medicine 08/24/24 documented as of this encounter
--- OUTSIDE RECORDS SUMMARY | 2025-04-08 10:14 | XMS_ITS | Encounter Summary ---
Author Organization [employer] Address 75 [facility] 7t [place] [address] Care Team Providers Care Sampler And Test Preparer Name Role Phone Name, Aneesh RIVERS Primary Care Provider [phone] Sandra Rasheed PharmD Unavailable [phone] Encounter Details Date Type Department Care Team ([facility] st Contact Info) Description 04/04/2025 Telephone [facility] MED[facility] [address] [place] [address] Name, MD Aneesh [address] [place] [address] Social History Tobacco Use Types Packs/Day Years [...] Miscellaneous Notes * Telephone Encounter - Kelly Mnedez RN - 04/04/2025 10:14 AM EDT Pt evaluated in [facility] ED 04/03/25 Diagnosis: cough, bronchitis. Pt discharged home in stable condition with prescriptions for doxycycline 100 mg tablet po BID x 7 days and amoxicillin-pot clavulanate 875-125 mg tab-take 1 tab po BID x 7 days. T/C to pt for status check via [facility] bundle cutter Rosina #[id number]. Pt reports that he his cough is a lot better today. Reports cough is productive of white phlegm. Denies fever, sob. Repoorts he is taking meds prescribed in the ED as directed. Recommended that pt complete full course of antibiotics andthat pt call [facility] or RTC if symptoms worsen or persist beyond duration of treatment. Pt reports agree ment with plan. documented in this encounter Plan of Treatment Upcoming Encounters Date Type Department Care Team (Late st Contact Info) Description 04/16/2025 10:00 AM EST Medication Management [facility] [address] [place] [address] Sandra Rasheed, PharmD [address] [place] [address] 05/29/2025 9:30 AM EST Office Visit [facility] [address] [place] [address] Name, MD Aneesh [address] [place] [address] 06/03/2025 9:30 AM EST Office Visit [facility] OPTOM[facility] [address] [place] [address] Nathanael, Jayne, OD 230 [place] [address] documented as of this encounter Visit Diagnoses Not on filedocumented in this encounter Additional Health Concerns Assessment Noted Time PHQ-9 Depression Total Score: 5 03/06/20 25 11:44 AM EDT documented as of this encounter Care Teams Sampler And Test Preparer Relationship Specialty Start Date End Date Name, MD Aneesh [address] [place] [address] PCP - General Family Medicine 02/14/18 Sandra Rasheed PharmD [address] [place] [address] Pharmacist Internal Medicine 08/24/24 documented as of this encounter
== END 2025-04-08 09:18 | disposition home or self-care (01) ==
LOC: HO.US 09:17
PROVIDERS: PCP Internal Medicine Geriatric Medicine; Visit Provider Surgery Vascular Surgery
DX: I73.9 Peripheral vascular disease, unspecified (principal); Z98.62 Peripheral vascular angioplasty status
CPT/HCPCS: 93922; 93925

== ENCOUNTER → 2025-04-08 09:19 | Outpatient (BNV) | payer OTHER, SELFPAY | PROVIDERS: PCP Internal Medicine Geriatric Medicine; Visit Provider Radiology Diagnostic Radiology | DX: I73.9 Peripheral vascular disease, unspecified (principal) | CPT/HCPCS: 93922; 93925 ==

== ENCOUNTER 2025-04-15 09:36 | Outpatient (REF) | payer OTHER, SELFPAY ==
--- NOTE | ~2025-04-15 | US_ITS ---
CLINICAL HISTORY: K76.0 - Fatty (change of) liver, not elsewhere classified US abdomen complete Comparison: CT/REG/SR - CT ABDOMEN PELVIS W IV CON - 01/20/25 10:22 EDT Findings: The visualized pancreas head is normal. The visualized aorta and inferior vena cava are normal caliber. The liver is enlarged, right lobe length is 19.3 cm. Moderately increased echogenicity and coarsened echotexture of the liver parenchyma. No discrete lesion is visualized in the imaged liver. No intrahepatic bile duct dilatation. The common duct is 4 mm in diameter. The gallbladder is normal. Negative sonographic Siegel sign. The main portal vein is patent with antegrade flow. The right kidney demonstrates minimally complex benign cyst with thin septation 2.9 x 2.7 x 2.1 cm of the midpole, otherwise normal, 11.9 cm in length. The left kidney is normal, 12.5 cm in length. The spleen is top-normal normal, 12.7 cm in length. No free fluid in the abdomen. Impression: 1. Echogenic and coarse liver parenchyma is non-specific and can be seen in parenchymal liver disease. No hepatic lesion is seen. 2. Hepatomegaly. 3. Right renal cyst. This document has been electronically signed by: Kelley Worley MD on 04/15/2025 14:54:36
--- OUTSIDE RECORDS SUMMARY | 2025-04-15 11:01 | XMS_ITS | Encounter Summary ---
Author Organization [employer] Address 75 [facility] 7t [place] [address] Care Team Providers Care Director Sales Support Name Role Phone Name, Aneesh RIVERS Primary Care Provider [phone] Sandra Rasheed PharmD Unavailable [phone] Encounter Details Date Type Department Care Team (Late st Contact Info) Description 03/23/2023 Orders Only [facility] [address] [place], [place] [phone] Amber Brantley LPN Social History Tobacco Use [...] Description 04/16/2025 10:00 AM EST Medication Management [facility] [address] [place] [address] Sandra Rasheed PharmD [address] [place] [address] 05/29/2025 9:30 AM EST Office Visit [facility] [address] [place] [address] Name, MD Aneesh [address] [place] [address] 06/03/2025 9:30 AM EST Office Visit [facility] OPT[facility] [address] [place] [address] Nathanael, Jayne, OD [address] [place] [address] documented as of this encounter Visit Diagnoses Not on filedocumented in this encounter Care Teams Director Sales Support Relationship Specialty Start Date End Date Name, MD Aneesh [address] [place] [address] PCP - General Family Medicine 02/14/18 Sandra Rasheed PharmD [address] [place] [address] Pharmacist Internal Medicine 08/24/24 documented as of this encounter
--- OUTSIDE RECORDS SUMMARY | 2025-04-15 11:01 | XMS_ITS | Encounter Summary ---
Author Organization [employer] Address 75 [facility] 7t [place] [address] Care Team Providers Care Manager Bridge Name Role Phone Name, Aneesh RIVERS Primary Care Provider [phone] Sandra Rasheed PharmD Unavailable [phone] Reason for Visit * Reason Comments Med Refill Encounter Details Date Type Department Care Team ([facility] st Contact Info) Description 04/10/2025 Refill [facility] [address] [place] [address] Sandra Rasheed, PharmD [address] [place] [address] Social History Tobacco Use Types Packs/Day Years [...] Description 04/16/2025 10:00 AM EST Medication Management [facility] [address] [place] [address] Sandra Rasheed, PharmD [address] [place] [address] 05/29/2025 9:30 AM EST Office Visit [facility] [address] [place] [address] Aneesh Oliveira MD [address] [place] [address] 06/03/2025 9:30 AM EST Office Visit [facility] [address] [place] [address] Nathanael, Jayne, OD [address] [place] [address] documented as of this encounter Visit Diagnoses Not on filedocumented in this encounter Additional Health Concerns Assessment Noted Time PHQ-9 Depression Total Score: 5 03/06/20 25 11:44 AM EDT documented as of this encounter Care Teams Manager Bridge Relationship Specialty Start Date End Date Aneesh Oliveira MD [address] [place] [address] PCP - General Family Medicine 02/14/18 Sandra Rasheed PharmD [address] [place] [address] Pharmacist Internal Medicine 08/24/24 documented as of this encounter
--- OUTSIDE RECORDS SUMMARY | 2025-04-15 11:01 | XMS_ITS | Encounter Summary ---
Author Organization [employer] Address 75 [facility] 7t [place] [address] Care Team Providers Care Ultrasound Coordinator Name Role Phone Name, Aneesh RIVERS Primary Care Provider [phone] Sandra Rasheed PharmD Unavailable [phone] Reason for Visit * Reason Onset Date Comments FYI 08/23/2023 Encounter Details Date Type Department Care Team ([facility] st Contact Info) Description 08/23/2023 Telephone [facility] [address] [place] [address] Name, MD Aneesh [address] [place] [address] FY Social History Tobacco Use Types Packs/Day [...] 3:03 PM EDT Tc from [facility] with [facility] stating pt no longer wants to continue care with them. Leidy stated pt no showed 3 appts in a row and when asked about it pt said it was due to to transportation. Pt claims they are irresponsible and that they don't communicate. Pt stated he will continue care with PCP. If any questions please contact Leidy at [phone]. documented in this encounter Plan of Treatment Upcoming Encounters Date Type Department Care Team (Late st Contact Info) Description 04/16/2025 10:00 AM EST Medication Management [facility] [address] [place] [address] Sandra Rasheed, PharmD [address] [place] [address] 05/29/2025 9:30 AM EST Office Visit [facility] [address] [place] [address] Name, MD Aneesh [address] [place] [address] 06/03/2025 9:30 AM EST Office Visit [facility] [address] [place] [address] Jayne Huffman, BRYANT [address] [place] [address] documented as of this encounter Visit Diagnoses Not on filedocumented in this encounter Additional Health Concerns Assessment Noted Time PHQ-9 Depression Total Score: 4 08/23/19 24 9:44 AM EDT documented as of this encounter Care Teams Ultrasound Coordinator Relationship Specialty Start Date End Date Name, MD Aneesh [address] [place] [address] PCP - General Family Medicine 02/14/18 Sandra Rasheed PharmD [address] [place] [address] Pharmacist Internal Medicine 08/24/24 documented as of this encounter
--- OUTSIDE RECORDS SUMMARY | 2025-04-15 11:01 | XMS_ITS | Data Portability ---
Author Organization [place] [facility] Address [address] [facility] [address] [place] [address] Care Team Providers Care Coffee Break Attendant Name Role Phone NAME, LAURENT Primary Care [...] vocal quality. I recommended he see a tank pumper, voice specalist, to evaluate him and see if he would be a good candidate for a more permanent medialization procedure. Patient is willing and interested to travel to [place] to hear options. - Referral to [facility] Otolaryngology - Dr. Stafford or Dr. Machuca for discussion [email or web address] Not available 05/04/2024 08:27:45 Plan of Treatment Reminders Order Date Submit Date Provider Last Modified By Organization Details Last Modified Time Details Appointments None recorded. Lab None recorded. Referral otolaryngol ogist referral - Attn: Birgit. Dr. Machuca or Dr. Stafford - bilateral vocal cord paralysis. 2023 024 [email or web address] 2 [facility] Otolaryngolog y, [address] [facility], [facility], [place], [address], 4 10:41:11 Procedures None recorded. Surgeries None recorded. Imaging None recorded. Medication Orders None recorded. Patient TargetsNo targets recorded. Patient InstructionsNo instructions recorded. Reason for Referral Adult Daycare Coordinator Referral fo r Dysphonia Attn: Birgit. Dr. Machuca or Dr. Stafford - bilateral vocal cord paralysis. Referring Physician: Ryan Maya, Otolaryngology, Encounter Date: 05/03/2024 Problems Name Problem SNOMED Code Status Onset Date Resolution Date Notes Provider Name and Address Organization Details Recorded Time Paralysis of larynx 51694288 Active 2018 Paralysis of vocal cords and larynx, unspecifie d; Note: Date Diagnosed: 12/25/2018 2:49 PM (J38.00) Not Available [facility] 4 03:24:49 Dysphonia 92353918 Active 2018 Hoarseness ; Note: Date Diagnosed: 12/25/2018 2:49 PM (R49.0) Not Available [facility] 4 03:24:49 Simple goiter 271699955 Active 2018 Goiter NOS; Note: Date Diagnosed: 12/25/2018 2:49 PM (E04.9) Not Available [facility] 4 03:24:49 Paralysis of larynx 39740740 Active 2023 RYAN MAYA MD [address] [place] [address], [phone] , [facility] 4 08:24:41 Problem Notes None recorded. Procedures Surgical History Date Name Laterality Status Provider Name and Address Organization Details Recorded Time 05/03/20 24 Fiberoptic Laryngoscopy (Comprehensive) completed RYAN MAYA MD [address] [place] [address], [place], [address], [facility] 05/04/2024 08:24:07 Imaging Results None recorded. [...] Updated DateTime 05/03/2024 167.64 cm 34.7 kg/m2 74829.36 g Dimagiovanny Ramírez [place] [facility] 05/03/2024 13:28:04 Social History None recorded. Functional Status None recorded. Mental Status None recorded. Family History Nothing Reported. Medical History No medical history recorded. Past Encounters Encounter ID Performer Location Encounter Start Date Encounter Closed Date Diagnosis/Indication Diagnosis SNOMED-CT Code Diagnosis ICD10 Code Diagnosis IMO Codes Diagnosis Note [id number] RYAN MAYA MD [facility] [address] [address] 05/03/2024 13:04:26 05/03/2024 16:54:58 Paralysis of larynx 13680342 J38.02 Dysphonia 03667427 R49.9 Health Concerns Section Related Observation LastModified by Organization Detai ls LastModified Time None Recorded Concern Status LastModified by Organization Details LastModified Time None Recorded Advance Directives Directive None Recorded Payers Insurance Date Sequence Insurance Name Policy Number Policy Hood Covered Member ID Hood Member ID Guarantor Name 05/03/2024 1 [facility] (MEDICARE REPLACEMENT/ ADVANTAGE - HMO) Josue Mace [id number] Josue Mace 05/02/2024 2 [place] [facility] Josue Mace [id number] Josue Mace Notes Date Note Type Note Provider Name and Address Organization Details Recorded Time 05/03/2024 text/html ROS as noted in the HPI 73yo gentleman who presents today for evaluation of bilateral vocal cord paralysis and dysphonia. He has had difficulty with his voice for about 5 years. He underwent a traumatic intubation at [facility] in 2018 in the setting of an anaphylactic event. Following, this resulted in dysphonia and dyspnea with exertion. He was seen by otolaryngology in [place] - Dr. John Coppola. At that time, [...] 81 & clopidogrel. RYAN MAYA MD [address] [place] [address], [place], [address], [place] [facility] 05/04/2024 20:31:01
--- OUTSIDE RECORDS SUMMARY | 2025-04-15 11:01 | XMS_ITS | Encounter Summary ---
Author Organization [employer] Address 75 [facility] 7t [place] [address] Care Team Providers Care Acid Adjuster Name Role Phone Name, Aneesh RIVERS Primary Care Provider [phone] Sandra Rasheed PharmD Unavailable [phone] Reason for Visit * Reason Comments Med Refill Encounter Details Date Type Department Care Team ([facility] Contact Info) Description 04/09/[address] [facility] MED & PEDS [address] [place], [place] [phone] Name, MD Aneesh [address] [place] [address] Chronic low back pain, unspecified back pain [...] [facility] MEDICINE [address] [place] [address] Sandra Rasheed, PharmD [address] [place] [address] 05/29/2025 9:30 AM EST Office Visit [facility] MED[facility]INE [address] [place] [address] Aneesh Oliveira MD [address] [place] [address] 06/03/2025 9:30 AM EST Office Visit [facility] OPTOMETRY [address] [place] [address] Nathanael, Jayne, OD [address] [place] [address] documented as of this encounter Visit Diagnoses Diagnosis Chronic low back pain, unspecified back pain laterality, unspecified whether sciatica present documented in this encounter Additional Health Concerns Assessment Noted Time PHQ-9 Depression Total Score: 4 08/23/19 24 9:44 AM EDT documented as of this encounter Care Teams Acid Adjuster Relationship Specialty Start Date End Date NameAneesh MD [address] [place] [address] PCP - General Family Medicine 02/14/18 Sandra Rasheed, Javi [address] [place] [address] Pharmacist Internal Medicine 08/24/24 documented as of this encounter
--- OUTSIDE RECORDS SUMMARY | 2025-04-15 11:01 | XMS_ITS | Encounter Summary ---
Author Organization [employer] Address 75 [facility] 7t [place] [address] Care Team Providers Care Federal Agent Name Role Phone Name, Aneesh RIVERS Primary Care Provider [phone] Sandra Rasheed PharmD Unavailable [phone] Reason for Visit * Reason Comments Med Refill Encounter Details Date Type Department Care Team ([facility] st Contact Info) Description 12/20/2024 Refill [facility] [address] [place] [address] Name, MD Aneesh [address] [place] [address] Left leg pain; Chronic low back pain, [...] 10:00 AM EST Medication Management [facility] [address] [place] [address] Sandra Rasheed, PharmD [address] [place] [address] 05/29/2025 9:30 AM EST Office Visit [facility] [address] [place] [address] Name, MD Aneesh [address] [place] [address] 06/03/2025 9:30 AM EST Office Visit [facility] [address] [place] [address] Nathanael, Jayne, OD [address] [place] [address] documented as of this encounter Visit Diagnoses Diagnosis Left leg pain Pain in soft tissues of limb Chronic low back pain, unspecified back pain laterality, unspecified whether sciatica present documented in this encounter Additional Health Concerns Assessment Noted Time PHQ-9 Depression Total Score: 4 08/23/19 24 9:44 AM EDT documented as of this encounter Care Teams Federal Agent Relationship Specialty Start Date End Date Name, MD Aneesh [address] [place] [address] PCP - General Family Medicine 02/14/18 Sandra Rasheed PharmD [address] [place] [address] Pharmacist Internal Medicine 08/24/24 documented as of this encounter
--- OUTSIDE RECORDS SUMMARY | 2025-04-15 11:01 | XMS_ITS | Encounter Summary ---
Author Organization [employer] Address [address] [facility] 7t [place] [address] Care Team Providers Care Fisher Net Name Role Phone Name, Aneesh RIVERS Primary Care Provider [phone] Sandra Rasheed PharmD Unavailable [phone] Reason for Visit * Reason Comments Med Refill Encounter Details Date Type Department Care Team ([facility] st Contact Info) Description 04/10/2025 Refill [facility] [address] [place] [address] Name, MD Aneesh [address] [place] [address] Left leg pain; Chronic low back pain, [...] Description 04/16/2025 10:00 AM EST Medication Management [facility] [address] [place] [address] Sandra Rasheed, PharmD [address] [place] [address] 05/29/2025 9:30 AM EST Office Visit [facility] [address] [place] [address] Name, MD Aneesh [address] [place] [address] 06/03/2025 9:30 AM EST Office Visit [facility] [address] [place] [address] Jayne Huffman, OD [address] [place] [address] documented as of this encounter Visit Diagnoses Diagnosis Left leg pain Pain in soft tissues of limb Chronic low back pain, unspecified back pain laterality, unspecified whether sciatica present documented in this encounter Additional Health Concerns Assessment Noted Time PHQ-9 Depression Total Score: 5 03/06/20 11:44 AM EDT documented as of this encounter Care Teams Fisher Net Relationship Specialty Start Date End Date Name, MD Aneesh [address] [place] [address] PCP - General Family Medicine 02/14/18 Sandra Rasheed PharmD [address] [place] [address] Pharmacist Internal Medicine 08/24/24 documented as of this encounter
--- OUTSIDE RECORDS SUMMARY | 2025-04-15 11:01 | XMS_ITS | Encounter Summary ---
Author Organization [employer] Address [address] [facility] 7t [place] [address] Care Team Providers Care Language Pathologist Name Role Phone Name, Aneesh RIVERS Primary Care Provider [phone] Sandra Rasheed PharmD Unavailable [phone] Reason for Visit * Reason Comments Med Refill Encounter Details Date Type Department Care Team ([facility] st Contact Info) Description 05/02/2024 Refill [facility] [address] [place] [address] Name, MD Aneesh [address] [place] [address] Chronic constipation Social History Tobacco Use Types [...] Upcoming Encounters Date Type Department Care Team ([facility] st Contact Info) Description 04/16/2025 10:00 AM EST Medication Management [facility] [address] [place] [address] Sandra Rasheed, PharmD [address] [place] [address] 05/29/2025 9:30 AM EST Office Visit [facility] [address] [place] [address] Aneesh Oliveira MD [address] [place] [address] 06/03/2025 9:30 AM EST Office Visit [facility] [address] [place] [address] Nathanael, Jayne, OD [address] [place] [address] documented as of this encounter Visit Diagnoses Diagnosis Chronic constipation Unspecified constipation documented in this encounter Additional Health Concerns Assessment Noted Time PHQ-9 Depression Total Score: 4 08/23/19 24 9:44 AM EDT documented as of this encounter Care Teams Language Pathologist Relationship Specialty Start Date End Date Aneesh Oliveira MD [address] [place] [id number] PCP - General Family Medicine 02/14/18 Sandra Rasheed, Javi [address] [place] [address] [id number] Pharmacist Internal Medicine 08/24/24 documented as of this encounter
--- OUTSIDE RECORDS SUMMARY | 2025-04-15 11:01 | XMS_ITS | Encounter Summary ---
Author Organization [employer] Address [address] [facility] 7t [place] [address] Care Team Providers Care Economics Instructor Name Role Phone Name, Aneesh RIVERS Primary Care Provider [phone] Sandra Rasheed PharmD Unavailable [phone] Reason for Visit * Reason Onset Date Comments Appointment Request 07/17/2024 Encounter Details Date Type Department Care Team ([facility] st Contact Info) Description 07/17/2024 Telephone [facility] [address] [place] [address] Name, MD Aneesh [address] [place] [address] Appointment Request Social History Tobacco Use Types [...] r/s apt for 07/17/24. Contact pt at [phone] documented in this encounter Plan of Treatment Upcoming Encounters Date Type Department Care Team ([facility] st Contact Info) Description 04/16/2025 10:00 AM EST Medication Management [facility] [address] [place] [address] Sandra Rasheed, PharmD [address] [place] [address] 05/29/2025 9:30 AM EST Office Visit [facility] [address] [place] [address] Name, MD Aneesh [address] [place] [address] 06/03/2025 9:30 AM EST Office Visit [facility] [address] [place] [address] Jayne Huffman, OD [address] [place] [address] documented as of this encounter Visit Diagnoses Not on filedocumented in this encounter Additional Health Concerns Assessment Noted Time PHQ-9 Depression Total Score: 4 08/23/19 24 9:44 AM EDT documented as of this encounter Care Teams Economics Instructor Relationship Specialty Start Date End Date Name, MD Aneesh [address] [place] [address] PCP - General Family Medicine 02/14/18 Sandra Rasheed, Javi [address] [place] [address] Pharmacist Internal Medicine 08/24/24 documented as of this encounter
--- OUTSIDE RECORDS SUMMARY | 2025-04-15 11:01 | XMS_ITS | Encounter Summary ---
Author Organization [employer] Address [address] [facility] 7t [place] [address] Care Team Providers Care Consultant Teacher Name Role Phone Name, Aneesh RIVERS Primary Care Provider Sandra Rasheed PharmD Unavailable [phone] Reason for Visit * Reason Comments Med Refill Encounter Details Date Type Department Care Team ([facility] st Contact Info) Description 01/12/2024 Refill [facility] [address] [place], [place] [phone] Name, MD Aneesh [address] [place] [address] Chronic low back pain, unspecified back pain [...] Description 04/16/2025 10:00 AM EST Medication Management [facility] [address] [place] [address] Sandra Rasheed, PharmD [address] [place] [phone] 05/29/2025 9:30 AM EST Office Visit [facility] [address] [place] [address] Aneesh Oliveira MD [address] [place] [address] 06/03/2025 9:30 AM EST Office Visit [facility] [address] [place] [address] Nathanael, Jayne, OD [address] [place] [address] documented as of this encounter Visit Diagnoses Diagnosis Chronic low back pain, unspecified back pain laterality, unspecified whether sciatica present documented in this encounter Additional Health Concerns Assessment Noted Time PHQ-9 Depression Total Score: 4 08/23/19 24 9:44 AM EDT documented as of this encounter Care Teams Consultant Teacher Relationship Specialty Start Date End Date NameAneesh MD [address] [place] [id number] PCP - General Family Medicine 02/14/18 Sandra Rasheed, Javi [address] [place] [id number] Pharmacist Internal Medicine 08/24/24 documented as of this encounter
--- OUTSIDE RECORDS SUMMARY | 2025-04-15 11:02 | XMS_ITS | Clinical Summary ---
Author Organization [employer] Address [address] [facility] [address] [place] [address] Care Team Providers Care Mohel Name Role Phone Name, Aneesh RIVERS Primary Care Provider [phone] Sandra Rasheed PharmD Unavailable [phone] Allergies Active Allergy Reactions Criticality Noted [...] 2 times daily. Active insulin pen needle (ArctrievaltiGuard SafePack Pen Needle) 32G x 4 mm miscIndications: Type 2 diabetes mellitus with hyperglycemia ([facility]) Use to inject insulin 4 times daily 200 each Active glucose blood (NetSparkuch Ultra) test stripIndications :Type 2 diabetes mellitus with hyperglycemia ([facility]) TEST BLOOD SUGAR THREE TIMES DAILY 100 strip Active metFORMIN (Glucophage) 1000 MG tabletIndication s:Type 2 diabetes mellitus with other specified complication, without long-term current use of insulin ([facility]) TAKE 1 TABLET BY MOUTH TWICE DAILY [...] hyperglycemia, with long-term current use of insulin ([facility]) Inject 0.75 mL (2 mg) under the skin 1 (one) time per week. 3 mL 025 Active rosuvastatin (Crestor) 20 MG tabletIndication s:Type 2 diabetes mellitus with hyperglycemia, with long-term current use of insulin ([facility]) Take 1 tablet (20 mg) by mouth Once per day. 90 tablet 1 025 Active gabapentin (Neurontin) 100 MG capsuleIndicatio ns:Left leg pain,Chronic low back pain, unspecified back pain laterality, unspecified whether sciatica present TAKE 2 CAPSULES BY MOUTH TWICE DAILY AT NOON AND BEDTIME 120 capsule 2 025 Active insulin lispro (HumaLOG KWIKPEN) 100 UNIT/ML injectionIndicat ions:Type 2 diabetes mellitus with hyperglycemia (HCC),MCFP (current) use of insulin (CMS/HCC) ([facility]) INJECT 35 UNITS SUBCUTANEOUSLY THREE TIMES DAILY [...] injectionIndicat ions:Type 2 diabetes mellitus with hyperglycemia (HCC),MCFP (current) use of insulin (CMS/HCC) ([facility]) INJECT 80 UNITS SUBCUTANEOUSLY EVERY DAY AT [...] complication, without long-term current use of insulin ([facility]) Glucose control solution provides an easy way to ensure accurate blood glucose testing. 1 each 025 Active Lancets Misc. (Accu-Chek Softclix Lancet Dev) kitIndications:T ype 2 diabetes mellitus with other specified complication, without long-term current use of insulin (HCC) Test daily before all meals/snacks and once before bedtime. 1 kit 025 Active Alcohol Sheets (Alcoh-Wipe) sheetIndications :Type 2 diabetes mellitus with other specified complication, without long-term current use of insulin (HCC) Test daily before all meals/snacks and once before bedtime. 1 each 025 Active Blood Glucose Monitoring Suppl (Accu-Chek Guide Me) w/Device kit Test daily before all meals/snacks and once before bedtime. 1 kit Active glucose blood (Accu-Chek Guide Test) test strip Test daily before all meals/snacks and once before bedtime. 100 each 11 Active hydrALAZINE (Apresoline) 25 MG tablet TAKE 1 TABLET BY MOUTH THREE TIMES DAILY IN THE MORNING, EVENING, AND BEDTIME 90 tablet 2 Active OneTouch UltraSoft 2 Lancets miscIndications: Type [...] 1 kit 025 2024 Discontinued(T herapy completed) hydrALAZINE (Apresoline) 25 MG tablet Take 1 tablet (25 mg) by mouth 3 times daily. 90 tablet 2 025 2024 Discontinued Blood Glucose Monitoring Suppl (Accu-Chek Guide Me) [...] Encounters Date Type Department Care Team Description 04/10/2025 Refill [facility] [address] [place] [address] Aneesh Oliveira MD Left leg pain; Chronic low back pain, unspecified back pain laterality, unspecified whether sciatica present 04/10/2025 Refill [facility] [address] [place] [address] Sandra Rasheed, PharmD 04/04/2025 Telephone [facility] [address] [place] [address] Aneesh Oliveira MD 04/04/2025 Telephone [facility] [address] [place] [address] Aneesh Oliveira MD Transition Of Care (Tcm) 04/03/2025 Orders Only [facility] External Provider, [facility] 04/01/2025 Refill [facility] [address] [place] [address] Aneesh Oliveira MD Type 2 diabetes mellitus with other specified complication, without long-term current use of insulin (HCC) (Primary Dx) 03/06/2025 11:00 AM EDT Office Visit [facility] [address] [place] [address] Aneesh Oliveira MD Type 2 diabetes mellitus with other specified complication, without long-term current use of insulin (CMS/HCC) (Primary Dx); Stage 3a chronic kidney disease (CMS/HCC); Hypertension, unspecified type; Chronic low back pain, unspecified back pain laterality, unspecified whether sciatica present; Generalized osteoarthritis; Encounter for immunization 03/06/2025 Travel 02/18/2025 Telephone [facility] [address] [place] [address] Aneesh Oliveira MD Chart Prep 02/04/2025 Travel 02/01/2025 Refill [facility] [address] [place] [address] Sandra Rasheed PharmD Type 2 diabetes mellitus with hyperglycemia ([facility]); MCFP (current) use of insulin ([facility]) 01/24/2025 Refill [facility] [address] [place] [address] Aneesh Oliveira MD Chronic low back pain, unspecified back pain laterality, unspecified whether sciatica present 01/22/2025 Refill [facility] [address] [place] [address] Sandra Rasheed PharmD Type 2 diabetes mellitus with hyperglycemia ([facility]); MCFP (current) use of insulin ([facility]) 01/20/2025 Orders Only GENERIC EXTERNAL DATA DEPARTMENT [...] Description 04/16/2025 10:00 AM EST Medication Management [facility] [address] [place] [address] Sandra Rasheed, PharmD [address] [place] [address] 05/29/2025 9:30 AM EST Office Visit [facility] [address] [place] [address] Name, MD Aneesh [address] [place] [address] 06/03/2025 9:30 AM EST Office Visit [facility] [address] [place] [address] Nathanael, Jayne, OD [address] [place] [address] Health Maintenance Due Date Last Done Comments [...] EXTREMITY ARTERIAL DUPLEX BILATERAL WITH BAYLEE Routine 04/08/2025 9:50 AM EDT XR KUB AND UPRIGHT 2 VIEWS Routine 04/03/2025 11:08 PM EDT XR CHEST 2 VIEWS Routine 04/03/2025 9:00 AM EDT COVID-19 ID NOW (LearnShark) Routine 04/03/2025 8:54 AM EDT COMPREHENSIVE METABOLIC PANEL Routine 04/03/2025 8:54 AM EDT CBC WITH AUTO DIFFERENTIAL Routine 04/03/2025 8:54 AM EDT INFLUENZA A B2 ID NOW (LearnShark) Routine 04/03/2025 8:54 AM EDT POCT GLUCOSE Routine 03/06/2025 11:00 AM EDT Type 2 diabetes mellitus with other specified complication, without long-term current use of insulin ([facility]) POCT GLYCATED HEMOGLOBIN, TOTAL Routine 02/04/2025 12:26 PM EDT Type 2 diabetes mellitus with hyperglycemia, with long-term current use of insulin ([facility]) CT ABDOMEN PELVIS W CONTRAST Routine 01/20/2025 [...] Recently Relevant to Health Maintenance Results * [facility] US Lower Extremity Arterial Duplex Bilateral With Baylee (04/08/2025 9:50 AM EDT) 04/08/2025 9:50 AM EDT Narrative [facility] - 04/08/2025 11:32 AM EDT [place] [address] Ultrasound Report Signed Patient: Josue Dawson MR#: [id number] : 1950 Acct:[id number] Age/Sex: 74 / M ADM Date: 04/08/25 Loc: . Attending Dr: Rodney Smith MD Ordering Physician: Rodney Smith MD Date of Service: 04/08/25 Procedure(s): US arterial duplex BI w/ BAYLEE Accession Number(s): [id number] cc: Rodney Smith MD; Name,Aneesh RIVERS Reason for Exam: I73.9 - Peripheral vascular disease, unspecified EXAMINATION: Noninvasive assessment of the bilateral lower extremities with ARTERIAL DUPLEX, ANKLE BRACHIAL INDICES (ABIs), and PULSE VOLUME RECORDINGS (PVRs). CLINICAL INFORMATION: I 73.9. Peripheral vascular disease status post angioplasty, left lower extremity. TECHNIQUE: Duplex Doppler techniques with waveform analysis and measurement of velocities in the bilateral common femoral, profunda femoris, superficial femoral, popliteal and tibial arteries were performed. Additionally, ankle pulse volume recordings, ankle pressure measurements and ankle brachial indices were obtained of the lower extremity arterial system bilaterally. The study was performed only at rest. COMPARISON: November 22, 2024 FINDINGS: DIRECT DUPLEX DOPPLER FINDINGS: RIGHT LEG: Common femoral artery: 161 cm/s, phasicity: Triphasic. Profunda femoris artery: 136 cm/s, phasicity: Biphasic. Spectral broadening. Superficial femoral artery (proximal): 114 cm/s, phasicity: Biphasic. Superficial femoral artery (mid): 127 cm/s, phasicity: Biphasic. Superficial femoral artery (distal): 57 cm/s, phasicity: Biphasic. Spectral broadening. Popliteal artery: 86 cm/s, phasicity: Biphasic. Spectral broadening. Posterior tibial artery: 79 cm/s, phasicity: Biphasic. Spectral broadening. Peroneal artery: No color Doppler flow. Anterior tibial artery: No color Doppler flow. Dorsalis pedis artery: 44 cm/s, phasicity:Monophasic. Spectral broadening. LEFT LEG: Common femoral artery: 140 cm/s, phasicity: Biphasic. Profunda femoris artery: 136 cm/s, phasicity: Biphasic. Superficial femoral artery (proximal): 117 cm/s, phasicity: Biphasic. Superficial femoral artery (mid): 125 cm/s, phasicity: Biphasic. Superficial femoral artery (distal): 89 cm/s, phasicity: Biphasic. Spectral broadening. Popliteal artery: 115 cm/s, phasicity: Biphasic. Spectral broadening. Posterior tibial artery: 95 cm/s, phasicity: Biphasic. Spectral broadening. Peroneal artery: No color Doppler flow. Anterior tibial artery: 30 cm/s, phasicity: Monophasic. Spectral broadening. Dorsalis pedis artery: 9 cm/s, phasicity: Monophasic. Spectral broadening. BRACHIAL PRESSURES: Right: More than 200 Left: 181. ANKLE PRESSURES: Right: PT more than 200., DP more than 200. Left: PT more than 200., DP more than 200. ANKLE-BRACHIAL INDEX: Right: Nondiagnostic. Left: Nondiagnostic. ANKLE PVR WAVEFORMS: Right: Abnormal Left: Abnormal US/US arterial duplex BI w/ BAYLEE IMPRESSION: Right leg: Probable occluded right anterior tibialis artery and peroneal artery. Severe inflow disease, dorsalis pedis artery. Left leg: Probable occluded anterior tibialis artery and peroneal artery. Severe inflow disease, dorsalis pedis artery. BAYLEE Reference: - >1.4 = calcified vessels - 0.9 - 1.4 = normal - no significant arterial disease - 0.7 - 0.89 = mild peripheral arterial disease - 0.51 - 0.69 = moderate peripheral arterial disease - 0.50 = severe peripheral arterial disease - < .30 = critical arterial disease Electronically signed by: Cheo Galindo MD 04/08/2025 11:29 AM EDT Dictated By: Cheo Looney MD Signed By: <Electronically signed by Cheo Landon MD in OV> 04/08/25 1129 DD/ 0950 TD/TT: 04/08/25 1023 Straddle Carrier Operator: Procedure Note Donotuseinterpreter, Image - 04/08/2025 [place] [address] Ultrasound Report Signed Patient: Josue Dawson#: [id number] : 1950cct:[id number] Age/Sex: 74 / MADM Date: 04/08/25 Loc: HO. Attending Dr: Rodney Smith MD Ordering Physician: Rodney Smith MD Date of Service: 04/08/25 Procedure(s): US arterial duplex BI w/ BAYLEE Accession Number(s): [id number] cc: Rodney Smith MD; Name,Aneesh RIVERS Reason for Exam: I73.9 - Peripheral vascular disease, unspecified EXAMINATION: Noninvasive assessment of the bilateral lower extremities with ARTERIAL DUPLEX, ANKLE BRACHIAL INDICES (ABIs), and PULSE VOLUME RECORDINGS (PVRs). CLINICAL INFORMATION: I 73.9. Peripheral vascular disease status post angioplasty, left lower extremity. TECHNIQUE: Duplex Doppler techniques with waveform analysis and measurement of velocities in the bilateral common femoral, profunda femoris, superficial femoral, popliteal and tibial arteries were performed. Additionally, ankle pulse volume recordings, ankle pressure measurements and ankle brachial indices were obtained of the lower extremity arterial system bilaterally. The study was performed only at rest. COMPARISON: November 22, 2024 FINDINGS: DIRECT DUPLEX DOPPLER FINDINGS: RIGHT LEG: Common femoral artery: 161 cm/s, phasicity: Triphasic. Profunda femoris artery: 136 cm/s, phasicity: Biphasic. Spectral broadening. Superficial femoral artery (proximal): 114 cm/s, phasicity: Biphasic. Superficial femoral artery (mid): 127 cm/s, phasicity: Biphasic. Superficial femoral artery (distal): 57 cm/s, phasicity: Biphasic. Spectral broadening. Popliteal artery: 86 cm/s, phasicity: Biphasic. Spectral broadening. Posterior tibial artery: 79 cm/s, phasicity: Biphasic. Spectral broadening. Peroneal artery: No color Doppler flow. Anterior tibial artery: No color Doppler flow. Dorsalis pedis artery: 44 cm/s, phasicity:Monophasic. Spectral broadening. LEFT LEG: Common femoral artery: 140 cm/s, phasicity: Biphasic. Profunda femoris artery: 136 cm/s, phasicity: Biphasic. Superficial femoral artery (proximal): 117 cm/s, phasicity: Biphasic. Superficial femoral artery (mid): 125 cm/s, phasicity: Biphasic. Superficial femoral artery (distal): 89 cm/s, phasicity: Biphasic. Spectral broadening. Popliteal artery: 115 cm/s, phasicity: Biphasic. Spectral broadening. Posterior tibial artery: 95 cm/s, phasicity: Biphasic. Spectral broadening. Peroneal artery: No color Doppler flow. Anterior tibial artery: 30 cm/s, phasicity: Monophasic. Spectral broadening. Dorsalis pedis artery: 9 cm/s, phasicity: Monophasic. Spectral broadening. BRACHIAL PRESSURES: Right: More than 200 Left: 181. ANKLE PRESSURES: Right: PT more than 200., DP more than 200. Left: PT more than 200., DP more than 200. ANKLE-BRACHIAL INDEX: Right: Nondiagnostic. Left: Nondiagnostic. ANKLE PVR WAVEFORMS: Right: Abnormal Left: Abnormal US/US arterial duplex BI w/ BAYLEE IMPRESSION: Right leg: Probable occluded right anterior tibialis artery and peroneal artery. Severe inflow disease, dorsalis pedis artery. Left leg: Probable occluded anterior tibialis artery and peroneal artery. Severe inflow disease, dorsalis pedis artery. BAYLEE Reference: - >1.4 = calcified vessels - 0.9 - 1.4 = normal - no significant arterial disease - 0.7 - 0.89 = mild peripheral arterial disease - 0.51 - 0.69 = moderate peripheral arterial disease - 0.50 = severe peripheral arterial disease - < .30 = critical arterial disease Electronically signed by: Cheo Galindo MD 04/08/2025 11:29 AM EDT RP Dictated By: Cheo Looney MD Signed By: <Electronically signed by Cheo Landon MDin OV> 04/08/25 1129 DD/ 0950 TD/TT: 04/08/25 1023 Straddle Carrier Operator: us [facility] External Provider CV VASC ULAR PROCEDURES Edited Result - Final Performing Organization Address City/State/[facility] Co de Phone Number [facility] [address] [place] [address] * XR KUB and Upright 2 Views (04/03/2025 11:08 PM EDT) Anatomical Region Laterality Modality Radiographic Trang ging 04/03/2025 11:0 8 PM EDT Narrative 04/03/2025 11:10 PM EDT [address] [address] XRay Report Signed Patient: Josue Dawson MR#: [id number] : 1950 Acct:[id number] Age/Sex: 74 / M ADM Date: 04/03/25 Loc: .ED Attending Dr: Ordering Physician: Cherelle Peralta Date of Service: 04/03/25 Procedure(s): XR KUB Accession Number(s): [id number] cc: Cherelle Peralta; Name,Aneesh RIVERS Reason for [...] in OV> 04/03/252308 DD/ 07 TD/TT: 04/03/252307 Straddle Carrier Operator: Procedure Note Donotpatriciainterpreter, Image - 04/03/[address] [address] XRay Report Signed Patient: Josue DawsonMR#: [id number] : 1950cct:[id number] Age/Sex: 74 / MADM Date: 04/03/25 Loc: HO.ED Attending Dr: Ordering Physician: Cherelle Peralta Date of Service: 04/03/25 Procedure(s): XR KUB Accession Number(s): [id number] cc: Cherelle Peralta; Name,Aneesh RIVERS Reason for [...] in OV> 04/03/252308 DD/ 07 TD/TT: 04/03/252307 Straddle Carrier Operator: us [facility] External Provider IMG XR PROCEDURES Edited Result - Final * XR Chest 2 Views (04/03/2025 9:00 AM EDT) Anatomical Region Laterality Modality Chest Radiographic Trang ging 04/03/2025 9:00 AM EDT Narrative 04/03/2025 9:10 AM EDT [address] [address] XRay Report Signed Patient: Josue Dawson MR#: [id number] : 1950 Acct:[id number] Age/Sex: 74 / M ADM Date: 04/03/25 Loc: HO.ED Attending Dr: Ordering Physician: Generic ED Physician Date of Service: 04/03/25 Procedure(s): XR chest 2V Accession Number(s): [id number] cc: Generic ED Physician; Name,Aneesh RIVERS Reason [...] 04/03/25 0908 DD/ 09 TD/TT: 04/03/25 0905 Straddle Carrier Operator: Procedure Note Donotuseinterpreter, Image - 04/03/2025 [place] [address] XRay Report Signed Patient: Josue DawsonMR#: [id number] : 1950cct:[id number] Age/Sex: 74 / MADM Date: 04/03/25 Loc: HO.ED Attending Dr: Ordering Physician: Lea ED Physician Date of Service: 04/03/25 Procedure(s): XR chest 2V Accession Number(s): [id number] cc: Generic ED Physician; Name,Aneesh RIVERS Reason [...] in OV> 04/03/25907 DD/ 9 TD/TT: 04/03/25904 Straddle Carrier Operator: [facility] External Provider IMG XR PROCEDURES Final Result * Influenza A B2 ID NOW (Causey) (04/03/2025 8:54 AM EDT) IDNOW SERIAL# [id number] [facility] Influenza A Negative Negative [facility] Influenza B2 Negative Negative [facility] Influenza A B2 Note See Note [facility] Comment:The Cuasey ID NOW In fluenza A B2 test [...] LAB MICROBIOLOGY - GENERAL ORDERABLES Final Result [facility] [address] [place] [phone] * COVID-19 ID NOW (CAUSEY) (04/03/2025 8:54 AM EDT) IDNOW SERIAL# [id number] [facility] COVID-19 TEST Negative Negative [facility] COVID-19 NOTE See Note [facility] Comment: Results are for the identification of SARS-CoV2 RNA. TheSARS-CoV2 RNA is generally detectable in respiratory samplesduring the acute phase of infection. Positive results areindicative of the presence of SARS-CoV-2 RNA; clinicalcorrelation with patient history and other diagnosticinformation is necessary to determine patient infectionstatus. Positive results do not rule out bacterial infectionor co- infection with other viruses.Testing facilities within the [facility] and itsterritories are required to report [...] use by authorized laboratories.Testing performed on the [place] NOW utilizing NAAT. 04/03/2025 8:54 AM EDT 04/03/2025 8:59 AM EDT us Generic External Data Provider LAB MOLECULAR MAME GNOSTICS ORDERABLES Final Result [facility] [address] [place] [phone] * (ABNORMAL) CBC auto differential (04/03/2025 8:54 AM EDT) White Blood Count 9.7 4.8 - 10.8 X10*3/uL [facility] Red Blood Count 5.01 4.60 - 5.80 X10*6/uL [facility] Hemoglobin 14.9 14.0 - 18.0 g/dl [facility] Hematocrit 44.0 42.0 - 52.0 % [facility] Mean Corpuscular Volume 87.8 80.0 - 98.0 fL [facility] Mean Corpuscular Hemoglobin 29.7 27.0 - 33.0 pg [facility] Mean Corpuscular HGB Conc 33.9 31.0 - 36.0 g/dl [facility] Red Cell Distribution Width 13.3 11.0 - 16.0 % [facility] Platelet Count 312 160 - 400 X10*3/uL [facility] Mean Platelet Volume 10.1 9.4 - 12.4 fL [facility] Neutrophils Percent Auto 64.8 45 - 73 % [facility] Imm Gran Pct Auto 0.9(H) 0.0 - 0.4 % [facility] Lymphocytes Percent Auto 25.2 20 - 40 % [facility] Monocytes Percent Auto 6.6 2 - 11 % [facility] Eosinophils Percent Auto 1.9 0 - 4 % [facility] Basophils Percent Auto 0.6 0 - 2 % [facility] NRBC Pct Auto 0.0 0.0 - 0.2 /100WBC [facility] Neutrophils Absolute Auto 6.3 2.0 - 8.3 x10*3/uL [facility] Imm Gran Abs Auto 0.09(H) 0.00 - 0.03 X10*3/uL [facility] Lymphocytes Absolute Auto 2.4 1.2 - 4.9 X10*3/uL [facility] Monocytes Absolute Auto 0.6 0.1 - 1.2 X10*3/uL [facility] Eosinophils Absolute Auto 0.2 0.0 - 0.4 X10*3/uL [facility] Basophils Absolute Auto 0.1 0.0 - 0.2 X10*3/uL [facility] NRBC Abs Auto 0.000 0.0 - 0.012 X10*3/uL [facility] 04/03/2025 8:54 AM EDT 04/03/2025 8:59 AM EDT us Generic External Data Provider LAB BLOOD ORDERAB LES Final Result [facility] [address] [place] [phone] [phone] * (ABNORMAL) Comprehensive Metabolic Panel (04/03/2025 8:54 AM EDT) Sodium 137 135 - 145 mmol/L [facility] Potassium 4.3 3.3 - 5.1 mmol/L [facility] Comment:Slight Hemolysis.Int erpret result with caution. Chloride 103 96 - 108 mmol/L [facility] Carbon Dioxide 27 22 - 29 mmol/L [facility] Anion Gap 11(L) 12 - 20 [facility] Urea Nitrogen (BUN) 21(H) 9 - 16 mg/dL [facility] Creatinine, Serum 1.14 0.5 - 1.4 mg/dL [facility] Creatinine Clr Calc Pharmacy 62.4 [facility] Comment:eGFR (calculated fro m the MDRD study equation) and eCrCl(calculated from the Cockcroft-Gault equation) are based ondifferent parameters and may not yield comparable results.If eCrCl result is absurd, please check patient'sheight/weight. Estimated Glomerular Filt Rate >60 [facility] Comment:Chronic Kidney Disea se: Estimated GFR < 60 mL/min/[id number] Kidney Disease: Estimated GFR < 15 mL/min/1.73m2 Glucose 253(H) 60 - 115 mg/dL [facility] Calcium 9.8 8.4 - 10.2 mg/dL [facility] Bilirubin, Total 0.4 0.0 - 1.0 mg/dL [facility] Aspartate Amino Transferase 55(H) 5 - 37 U/L [facility] Comment:Slight Hemolysis.Int erpret result with caution. Alanine Aminotransferase 74(H) 0 - 40 U/L [facility] Total Protein 7.5 6.5 - 8.0 g/dL [facility] Albumin Level 3.9 3.5 - 5.0 g/dL [facility] Alkaline Phosphatase 63 39 - 117 U/L [facility] 04/03/2025 8:54 AM EDT 04/03/2025 8:59 AM EDT us Generic External Data Provider LAB BLOOD ORDERAB LES Final Result [facility] [address] [place] [phone] * (ABNORMAL) POCT Glucose (03/06/2025 11:00 AM EDT) Glucose Blood, POC 320(A) 60 - 200 mg/dL QC Media Lot # [id number] Lot# Expiration Date Blood Capillary blood specimen / Unknown 03/06/2025 11:00 AM EDT Aneesh Name POINT OF CARE TEST ENTER/EDIT OR DERABLES Final Result * (ABNORMAL) POCT HGB A1C (02/04/2025 12:26 PM EDT) Hemoglobin A1C 8.7(A) 4.0 - 5.7 % Blood 02/04/2025 12:2 6 PM EDT Aneseh Name POINT OF CARE TEST ENTER/EDIT OR DERABLES Final Result * CT Abdomen Pelvis w/ Contrast (01/20/2025 11:46 AM EDT) Anatomical Region Laterality Modality Body, Pelvis, Abdomen Computed T omography 01/20/2025 11:4 6 AM EDT Narrative 01/20/2025 11:48 AM EDT [address] [address] [address] Scan Report Signed Patient: Josue Dawson MR#: [id number] : 1950 Acct:[id number] Age/Sex: 74 / M ADM Date: 01/20/25 Loc: .ED Attending Dr: Ordering Physician: Armaan Clark Date of Service: 01/20/25 Procedure(s): CT abdomen pelvis w IV con Accession Number(s): [id number] cc: Armaan Clark; Name,Aneesh RIVERS Report Number: [id number]: Total DLP = 695.00 mGy-cm CLINICAL HISTORY: [...] 01/20/25 1147 DD/ 1146 TD/TT: 01/20/25 1146 Straddle Carrier Operator: Procedure Note Donotuseinterpreter, Image - 01/20/[address] [place] [address] [address] Scan Report Signed Patient: Josue Dawson#: [id number] : 1950cct:[id number] Age/Sex: 74 / MADM Date: 01/20/25 Loc: HO.ED Attending Dr: Ordering Physician: Armaan Clark Date of Service: 01/20/25 Procedure(s): CT abdomen pelvis w IV con Accession Number(s): [id number] cc: Armaan Clark; Name,Aneesh RIVERS Report Number: [id number]: Total DLP = 695.00 mGy-cm CLINICAL HISTORY: [...] 01/20/25 1147 DD/ 1146 TD/TT: 01/20/25 1146 Straddle Carrier Operator: [facility] External Provider IMG CT PROCEDURES Edited Result - Final * (ABNORMAL) Urinalysis, Complete, with Reflex to Culture (01/20/2025 11:26 AM EDT) Color Urine Yellow [facility] Appearance Urine Clear [facility] PH 7.0 5.0 - 9.0 [facility] Glucose Urine UA >=1000(A) Negative mg/dL [facility] Urine Blood Negative Negative [facility] Specific Lohn - Urine 1.025 1.005 - 1.025 [facility] Urine Protein 300 (3+)(A) Neg-Trace mg/dL [facility] Urine Ketones Negative Negative mg/dL [facility] Nitrite Urine Negative Negative [facility] Leukocyte Esterase Urine Negative Negative [facility] RBC Urine 0-2 0 - 2 /HPF [facility] Urine WBC 0-5 0 - 5 /HPF [facility] Urine Squamous Epithelial Cell 0-2 0 - 2 /HPF [facility] Urine Bacteria None Seen None Seen [facility] Hyaline Casts, Urine 0-2 0 - 2 /LPF [facility] 01/20/2025 11:2 6 AM EDT 01/20/2025 11:46 AM EDT Narrative [facility] - 01/20/2025 11:56 AM EDT [id number], Clean Catch us Generic External Data Provider LAB URINE ORDERAB LES Final Result Performing Organization Address [facility]/ZIP Co de Phone Number [facility] [address] [place] [address] [phone] * (ABNORMAL) Basic Metabolic Panel (01/16/2025 9:22 AM EDT) Sodium 139 135 - 145 mmol/L [facility] Potassium 3.7 3.3 - 5.1 mmol/L [facility] Chloride 102 96 - 108 mmol/L [facility] Carbon Dioxide 29 22 - 29 mmol/L [facility] Anion Gap 12 12 - 20 [facility] Urea Nitrogen (BUN) 23(H) 9 - 16 mg/dL [facility] Creatinine, Serum 1.08 0.5 - 1.4 mg/dL [facility] Estimated Glomerular Filt Rate >60 [facility] Comment:Chronic Kidney Disea se: Estimated GFR < 60 mL/min/1.37z5Mmkkzk Kidney Disease: Estimated GFR < 15 mL/min/1.73m2 Glucose 170(H) 60 - 115 mg/dL [facility] Calcium 10.0 8.4 - 10.2 mg/dL [facility] 01/16/2025 9:22 AM EDT 01/16/2025 9:22 AM EDT us Generic External Data Provider LAB BLOOD ORDERAB LES Final Result Performing Organization Address [facility]/ZIP Co de Phone Number [facility] [address] [place] [address] [phone] * (ABNORMAL) Urinalysis Complete (01/16/2025 9:19 AM EDT) Color Urine Yellow [facility] Appearance Urine Clear [facility] PH 5.5 5.0 - 9.0 [facility] Glucose Urine UA >=1000(A) Negative mg/dL [facility] Urine Blood Negative Negative [facility] Specific Lohn - Urine 1.020 1.005 - 1.025 [facility] Urine Protein 300 (3+)(A) Neg-Trace mg/dL [facility] Urine Ketones Negative Negative mg/dL [facility] Nitrite Urine Negative Negative [facility] Leukocyte Esterase Urine Negative Negative [facility] RBC Urine 0-2 0 - 2 /HPF [facility] Urine WBC 0-5 0 - 5 /HPF [facility] Urine Squamous Epithelial Cell 0-2 0 - 2 /HPF [facility] Urine Bacteria None Seen None Seen [facility] Hyaline Casts, Urine 3-5 0 - 2 /LPF [facility] 01/16/2025 9:19 AM EDT 01/16/2025 9:48 AM EDT us Generic External Data Provider LAB URINE ORDERAB LES Final Result Performing Organization Address City/State/[facility] Co de Phone Number [facility] [address] [place] [phone] * Cytopath-cell enhanced (01/16/2025 9:09 AM EDT) 01/16/2025 9:09 AM EDT 01/17/2025 8:15 AM EDT Narrative [facility] - 01/17/2025 3:04 PM EDT ----- ------- Name: Josue Dawson Age/Sex: 74/M : 1950 Unit#: [id number] Attend Dr: Jd Painter MD Re01/16/25 Status: [facility] Disch: ----- ------- SPEC : [id number] RECD: 01/17/25 STATUS: ELLA MCKOY NUM: [id number] JUWAN: 01/16/25 [facility] DR: Jd Painter MD ENTERED: 01/17/25 [...] developed and their performance characteristics determined by [facility]. They have not been cleared or approved by the U.S. Food and Drug Administration (FDA). However, the FDA has determined that such clearance or approval is not necessary. This laboratory is certified under the Clinical Laboratory Improvement Amendments of 1988 (CLIA) as qualified to perform high complexity clinical laboratory testing. Copies To: Jd Painter MD [facility] [address] [place] [address] Dr [address] [place] [address] [email or web address] Name,Aneesh RIVERS [address] [place] [address] CONTINUED ON NEXT PAGE ----- ------- Name: Josue Dawson Age/Sex: 74/M : 1950 Unit#: [id number] Attend Dr: Jd Painter MD Re01/16/25 Status: DEP REF Location: [facility] Disch: ----- ------- SPEC : [id number] RECD: 01/17/25 STATUS: ELLA MCKOY NUM: [id number] JUWAN: 01/16/25 [facility] DR: Jd Painter MD ENTERED: 01/17/25 SP TYPE: Cytology ABHIHR DR: Aneesh Oliveira MD ORDERED: Cyto-enhanced ----- ------- Signed (signature on file) Yevgeniy Avila MD 01/17/25 1504 ----- ------- END OF REPORT Generic External Data Provider LAB CYTOLOGY ORDE RABLES Final Result Performing Organization Address [facility] Co de Phone Number [facility] [address] [place] [address] [phone] * (ABNORMAL) Lipid Panel, Standard (11/17/2024 10:29 AM EDT) Triglycerides 129 <150 mg/dL [facility] Comment:Desirable Triglyceri de: less than 150 mg/dLBorderline High Triglyceride 150-199 mg/dLHigh Triglyceride: 200-499 mg/dLVery High Triglyceride: greater than or equal to 5OO mg/dL Cholesterol 179 <200 mg/dL [facility] Comment:Desirable Cholestero l: less than 200 mg/dLBorderline High Cholesterol: 200-239 mg/dLHigh Cholesterol: greater than 239 mg/dL LDL Cholesterol Calculated 115(H) <100 mg/dL [facility] Comment:Desirable LDL: less than 100 mg/dLNear Optimal/Above Optimal LDL: 110- 129 mg/dLBorderline High LDL: 130-159 mg/dLHigh LDL: 160-189 mg/dLVery High LDL: greater than or equal to 190 mg/dL HDL Cholesterol 39(L) >40 mg/dL [facility] Comment:Desirable HDL: great er than 40 mg/dL Note: This HDL assay may give artificially low results in patients with liver disease. 11/17/2024 10:2 9 AM EDT 11/17/2024 10:29 AM EDT Generic External Data Provider LAB BLOOD ORDERAB LES Final Result Performing Organization Address [facility]/ZIP Co de Phone Number [facility] [address] [place] [address] [phone] * (ABNORMAL) Hm Colonoscopy (02/10/2023) Colonoscopy Abnormal(A ) Normal us Aneesh Oliveira MD HEALTH MAINTENANCE Final Result * HEPATITIS C AB W/REFL TO HCV RNA, QN, PCR (11/25/2020 10:49 AM EDT) HEPATITIS C ANTIBODY NON-REACT TOM NON-REACT TOM [facility] INDEX 0.00 <1.00 [facility] Comment: HCV antibody was non-reactive. There is no laboratory evidence of HCV infection. In most cases, no further action is required. However, if recent HCV exposure is suspected, a test for HCV RNA (test code 18689) is suggested. For additional information please refer to http://education.shoply/faq/DJH01l3 (This link is being provided for informational/ educational purposes only.) 11/25/2020 10:4 9 AM EDT us Aneesh Oliveira MD HISTORICAL/NON ORDERABLE LABS Fi nal Result [facility] [address] from Last 3 Months or Most Recently Relevant to Health Maintenance Insurance [facility]TE DENTAL - [facility] Care Teams Mohel Relationship Specialty Start Date End Date Name, MD Aneesh [address] [place] [address] PCP - General Family Medicine 02/14/18 Sandra Rasheed PharmD [address] [place] [address] Pharmacist Internal Medicine 08/24/24
--- OUTSIDE RECORDS SUMMARY | 2025-04-15 11:02 | XMS_ITS | Encounter Summary ---
Author Organization [employer] Address [address] [facility] 7t [place] [address] Care Team Providers Care Whanau Support Worker Name Role Phone Name, Aneesh RIVERS Primary Care Provider [phone] Sandra Rasheed PharmD Unavailable [phone] Reason for Visit * Reason Comments Med Refill Encounter Details Date Type Department Care Team ([facility] st Contact Info) Description 08/19/2023 Refill [facility] [address] [place] [address] Name, MD Aneesh [address] [place] [address] Social History Tobacco Use Types Packs/Day Years [...] 10:00 AM EST Medication Management [facility] [address] [place] [phone] Sandra Rasheed PharmD [address] [place] [address] 05/29/2025 9:30 AM EST Office Visit [facility] [address] [place] [phone] Name, MD Aneesh [address] [place] [address] 06/03/2025 9:30 AM EST Office Visit [facility] [address] [place] [address] Nathanael, Jayne, OD [address] [place] [address] documented as of this encounter Visit Diagnoses Not on filedocumented in this encounter Care Teams Whanau Support Worker Relationship Specialty Start Date End Date Name, MD Aneesh [address] [place] [address] PCP - General Family Medicine 02/14/18 Sandra Rasheed, PharmD [address] [place] [address] Pharmacist Internal Medicine 08/24/24 documented as of this encounter
--- OUTSIDE RECORDS SUMMARY | 2025-04-15 11:02 | XMS_ITS | Encounter Summary ---
Author Organization [employer] Address 75 [facility] 7t [place] [address] Care Team Providers Care First Press Operator Name Role Phone Name, Aneesh RIVERS Primary Care Provider [phone] Sandra Rasheed PharmD Unavailable [phone] Reason for Visit * Reason Comments Med Refill Encounter Details Date Type Department Care Team ([facility] st Contact Info) Description 08/18/2023 Refill [facility] [address] [place], [place] [phone] Name, MD Aneesh [address] [place] [address] Social History Tobacco Use Types Packs/Day Years [...] Description 04/16/2025 10:00 AM EST Medication Management [facility] [address] [place] [address] Sandra Rasheed PharmD [address] [place] [address] 05/29/2025 9:30 AM EST Office Visit [facility] [address] [place] [address] Name, MD Aneesh [address] [place] [address] 06/03/2025 9:30 AM EST Office Visit [facility] [address] [place] [address] Nathanael, Jayne, OD [address] [place] [address] documented as of this encounter Visit Diagnoses Not on filedocumented in this encounter Care Teams First Press Operator Relationship Specialty Start Date End Date Name, MD Aneesh [address] [place] [address] PCP - General Family Medicine 02/14/18 Sandra Rasheed, PharmD [address] [place] [address] Pharmacist Internal Medicine 08/24/24 documented as of this encounter
--- OUTSIDE RECORDS SUMMARY | 2025-04-15 11:02 | XMS_ITS | Encounter Summary ---
Author Organization [employer] Address 75 [facility] 7t [place] [address] Care Team Providers Care Reed Man Name Role Phone Name, Aneesh RIVERS Primary Care Provider [phone] Sandra Rasheed PharmD Unavailable [phone] Reason for Visit * Reason Comments Med Refill Encounter Details Date Type Department Care Team ([facility] st Contact Info) Description 06/25/2024 Refill [facility] [address] [place] [address] Name, MD Aneesh [address] [place] [address] Hypertension, unspecified type; Prostatism; Type 2 diabetes mellitus with hyperglycemia (CMS/HCC); 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) Social History [...] EST Medication Management [facility] [address] [place] [address] Sandra Rasheed, PharmD [address] [place] [address] 05/29/2025 9:30 AM EST Office Visit [facility] [address] [place] [address] Name, MD Aneesh [address] [place] [address] 06/03/2025 9:30 AM EST Office Visit [facility] [address] [place] [address] Jayne Huffman, OD [address] [place] [address] documented as of this encounter Visit Diagnoses Diagnosis Hypertension, unspecified type Prostatism Unspecified hyperplasia of prostate without urinary obstruction and other lower urinary tract symptoms (LUTS) Type 2 diabetes mellitus with hyperglycemia (HCC) 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
== END 2025-04-15 09:37 | disposition home or self-care (01) ==
LOC: HO.US 09:36
PROVIDERS: PCP Internal Medicine Geriatric Medicine; Visit Provider Internal Medicine
DX: K76.0 Fatty (change of) liver, not elsewhere classified (principal)
CPT/HCPCS: 76700

== ENCOUNTER → 2025-04-15 09:38 | Outpatient (BNV) | payer OTHER, SELFPAY | PROVIDERS: PCP Internal Medicine Geriatric Medicine; Visit Provider Radiology Diagnostic Radiology | DX: K76.0 Fatty (change of) liver, not elsewhere classified (principal) | CPT/HCPCS: 76700 ==

== ENCOUNTER 2025-04-18 07:54 | Outpatient (REF) | payer OTHER, SELFPAY ==
--- OUTSIDE RECORDS SUMMARY | 2025-04-18 07:59 | XMS_ITS | Encounter Summary ---
Author Organization [employer] Address 75 [facility] 7t [place] [address] Care Team Providers Care Duralumin Mechanic Name Role Phone Name, Aneesh RIVERS Primary Care Provider [phone] Sandra Rasheed PharmD Unavailable [phone] Reason for Visit * Reason Comments Med Refill Encounter Details Date Type Department Care Team ([facility] st Contact Info) Description 01/12/2024 Refill [facility] [address] [place], [place] [phone] Name, MD Aneesh [address] [place] [address] Chronic low back pain, unspecified back pain [...] Care Team (Late st Contact Info) Description 05/27/2025 9:30 AM EST Medication Management [facility] [address] [place] [address] Sandra Rasheed, PharmD [address] [place] [address] 05/29/2025 9:30 AM EST Office Visit [facility] [address] [place] [address] Aneesh Oliveira MD [address] [place] [address] 06/03/2025 9:30 AM EST Office Visit [facility] [address] [place] [address] Nathanael, Jayne, OD [address] [place] [address] documented as of this encounter Visit Diagnoses Diagnosis Chronic low back pain, unspecified back pain laterality, unspecified whether sciatica present documented in this encounter Additional Health Concerns Assessment Noted Time PHQ-9 Depression Total Score: 4 08/23/19 24 9:44 AM EDT documented as of this encounter Care Teams Duralumin Mechanic Relationship Specialty Start Date End Date NameAneesh MD [address] [place] [address] PCP - General Family Medicine 02/14/18 Sandra Rasheed, Javi [address] [place] [address] Pharmacist Internal Medicine 08/24/24 documented as of this encounter
--- OUTSIDE RECORDS SUMMARY | 2025-04-18 07:59 | XMS_ITS | Encounter Summary ---
Author Organization [employer] Address 75 [facility] 7t [place] [address] Care Team Providers Care Wire Photo Operator News Name Role Phone Name, Aneesh RIVERS Primary Care Provider [phone] Sandra Rasheed PharmD Unavailable [phone] Reason for Visit * Reason Comments Med Refill Encounter Details Date Type Department Care Team ([facility] st Contact Info) Description 04/10/2025 Refill [facility] [address] [place] [address] Name, MD Aneesh [address] [place] [address] Left leg pain; Chronic low back pain, [...] Description 05/27/2025 9:30 AM EST Medication Management [facility] [address] [place] [address] Sandra Rasheed, PharmD [address] [place] [address] 05/29/2025 9:30 AM EST Office Visit [facility] [address] [place] [address] Name, MD Aneesh [address] [place] [address] 06/03/2025 9:30 AM EST Office Visit [facility] [address] [place] [address] Jayne Huffman, OD [address] [place] [address] documented as of this encounter Visit Diagnoses Diagnosis Left leg pain Pain in soft tissues of limb Chronic low back pain, unspecified back pain laterality, unspecified whether sciatica present documented in this encounter Additional Health Concerns Assessment Noted Time PHQ-9 Depression Total Score: 5 03/06/20 11:44 AM EDT documented as of this encounter Care Teams Wire Photo Operator News Relationship Specialty Start Date End Date Name, MD Aneesh [address] [place] [address] PCP - General Family Medicine 02/14/18 Sandra Rasheed PharmD [address] [place] [address] Pharmacist Internal Medicine 08/24/24 documented as of this encounter
--- OUTSIDE RECORDS SUMMARY | 2025-04-18 07:59 | XMS_ITS | Encounter Summary ---
Author Organization [employer] Address 75 [facility] 7t [place] [address] Care Team Providers Care Energy Management Specialist Name Role Phone Name, Aneesh RIEVRS Primary Care Provider [phone] Sandra Rasheed PharmD Unavailable [phone] Reason for Visit * Reason Comments Med Refill Encounter Details Date Type Department Care Team ([facility] st Contact Info) Description 08/19/2023 Refill [facility] [address] [place] [address] Name, MD Aneesh [address] [place] [address] Social History Tobacco Use Types Packs/Day Years [...] Description 05/27/2025 9:30 AM EST Medication Management [facility] [address] [place] [address] Sandra Rasheed PharmD [address] [place] [address] 05/29/2025 9:30 AM EST Office Visit [facility] [address] [place] [address] Name, MD Aneesh [address] [place] [address] 06/03/2025 9:30 AM EST Office Visit [facility] [address] [place] [address] Nathanael, Jayne, OD [address] [place] [address] documented as of this encounter Visit Diagnoses Not on filedocumented in this encounter Care Teams Energy Management Specialist Relationship Specialty Start Date End Date Name, MD Aneesh [address] [place] [address] PCP - General Family Medicine 02/14/18 Sandra Rasheed, PharmD [address] [place] [address] Pharmacist Internal Medicine 08/24/24 documented as of this encounter
--- OUTSIDE RECORDS SUMMARY | 2025-04-18 07:59 | XMS_ITS | Encounter Summary ---
Author Organization [employer] Address 75 [facility] 7t [place] [address] Care Team Providers Care Carbon Grinder Name Role Phone Name, Aneesh RIVERS Primary Care Provider [phone] Sandra Rasheed PharmD Unavailable [phone] Reason for Visit * Reason Comments Med Refill Encounter Details Date Type Department Care Team ([facility] st Contact Info) Description 08/18/2023 Refill [facility] [address] [place], [place] [phone] Name, MD Aneesh [address] [place] [address] Social History Tobacco Use Types Packs/Day Years [...] Description 05/27/2025 9:30 AM EST Medication Management [facility] [address] [place] [address] Sandra Rasheed PharmD [address] [place] [address] 05/29/2025 9:30 AM EST Office Visit [facility] [address] [place] [address] Name, MD Aneesh [address] [place] [address] 06/03/2025 9:30 AM EST Office Visit [facility] [address] [place] [address] Nathanael, Jayne, OD [address] [place] [address] documented as of this encounter Visit Diagnoses Not on filedocumented in this encounter Care Teams Carbon Grinder Relationship Specialty Start Date End Date Name, MD Aneesh [address] [place] [address] PCP - General Family Medicine 02/14/18 Sandra Rasheed, PharmD [address] [place] [address] Pharmacist Internal Medicine 08/24/24 documented as of this encounter
--- OUTSIDE RECORDS SUMMARY | 2025-04-18 07:59 | XMS_ITS | Encounter Summary ---
Author Organization [employer] Address 75 [facility] 7t h Floor [place] [id number] Care Team Providers Care Heel Cover Softener Name Role Phone Name, Aneehs RIVERS Primary Care Provider [phone] Sandra Rasheed PharmD Unavailable [phone] Reason for Visit * Reason Onset Date Comments Appointment Request 07/17/2024 Encounter Details Date Type Department Care Team ([facility] st Contact Info) Description 07/17/2024 Telephone [facility] MEDICINE [address] [place] [address] Name, MD Aneesh [address] [place] [address] Appointment Request Social History Tobacco Use Types [...] r/s apt for 07/17/24. Contact pt at [phone] documented in this encounter Plan of Treatment Upcoming Encounters Date Type Department Care Team (Late st Contact Info) Description 05/27/2025 9:30 AM EST Medication Management [facility] MEDICINE [address] [place] [phone] Sandra Rasheed, PharmD [address] [place] [address] 05/29/2025 9:30 AM EST Office Visit [facility] MEDICINE [address] [place] [address] Name, MD Aneesh [address] [place] [address] 06/03/2025 9:30 AM EST Office Visit [facility] OPTOMETRY [address] [place] [address] Jayne Huffman, OD 230 [place] [address] documented as of this encounter Visit Diagnoses Not on filedocumented in this encounter Additional Health Concerns Assessment Noted Time PHQ-9 Depression Total Score: 4 08/23/19 24 9:44 AM EDT documented as of this encounter Care Teams Heel Cover Softener Relationship Specialty Start Date End Date Name, MD Aneesh [address] [place] [address] PCP - General Family Medicine 02/14/18 Sandra Rasheed, Javi [address] [place] [address] Pharmacist Internal Medicine 08/24/24 documented as of this encounter
--- OUTSIDE RECORDS SUMMARY | 2025-04-18 07:59 | XMS_ITS | Encounter Summary ---
Author Organization [employer] Address 75 [facility] 7t [place] [address] Care Team Providers Care Human Services Case Manager Name Role Phone Name, Aneesh RIVERS Primary Care Provider [phone] Sandra Rasheed PharmD Unavailable [phone] Reason for Visit * Reason Comments Med Refill Encounter Details Date Type Department Care Team ([facility] st Contact Info) Description 12/20/2024 Refill [facility] MEDICINE [address] [place] [address] Name, MD Aneesh [address] [place] [address] Left leg pain; Chronic low back pain, [...] 9:30 AM EST Medication Management [facility] MEDICINE [address] [place] [address] Sandra Rasheed, PharmD [address] [place] [address] 05/29/2025 9:30 AM EST Office Visit [facility] MEDICINE [address] [place] [address] Name, MD Aneesh [address] [place] [address] 06/03/2025 9:30 AM EST Office Visit [facility] OPTOMETRY [address] [place] [address] Nathanael, Jayne, OD 230 [place] [address] documented as of this encounter Visit Diagnoses Diagnosis Left leg pain Pain in soft tissues of limb Chronic low back pain, unspecified back pain laterality, unspecified whether sciatica present documented in this encounter Additional Health Concerns Assessment Noted Time PHQ-9 Depression Total Score: 4 08/23/19 24 9:44 AM EDT documented as of this encounter Care Teams Human Services Case Manager Relationship Specialty Start Date End Date Name, MD Aneesh [address] [place] [address] PCP - General Family Medicine 02/14/18 Sandra Rasheed PharmD [address] [place] [address] Pharmacist Internal Medicine 08/24/24 documented as of this encounter
--- OUTSIDE RECORDS SUMMARY | 2025-04-18 07:59 | XMS_ITS | Clinical Summary ---
Author Organization [facility] Address [address] [place] [address] [place] [address] Phone Care Team Providers Care Pipe Tester Name Role Phone Name, Aneesh RIVERS Primary Care Provider [phone] Allergies Active Allergy Reactions Criticality Noted Date [...] 49 Years) Discontinued 02/17/2014, 03/15/2008, 04/14/2000 Insurance [facility] Dual Forter [facility] [email or web address] Care Teams Pipe Tester Relationship Specialty Start Date End Date Name, MD Aneesh [address] [place] [id number] PCP - General 06/23/20
--- OUTSIDE RECORDS SUMMARY | 2025-04-18 07:59 | XMS_ITS | Encounter Summary ---
Author Organization [employer] Address 75 [facility] 7t [place] [address] Care Team Providers Care Social Security Specialist Name Role Phone Name, Aneesh RIVERS Primary Care Provider [phone] Sandra Rasheed PharmD Unavailable [phone] Reason for Visit * Reason Comments Med Refill Encounter Details Date Type Department Care Team ([facility] Contact Info) Description 04/09/2024 Refill [facility]EDS [address] [place], [place] [phone] Name, MD Aneesh 230 [place] [address] Chronic low back pain, unspecified back pain [...] Description 05/27/2025 9:30 AM EST Medication Management [facility] MEDICINE [address] [place] [address] Sandra Rasheed, PharmD [address] [place] [address] 05/29/2025 9:30 AM EST Office Visit [facility] MEDICINE 230 [place] [address] Aneesh Oliveira MD [address] [place] [address] 06/03/2025 9:30 AM EST Office Visit [facility] OPTOMETRY [address] [place] [address] Nathanael, Jayne, OD 230 [place] [address] documented as of this encounter Visit Diagnoses Diagnosis Chronic low back pain, unspecified back pain laterality, unspecified whether sciatica present documented in this encounter Additional Health Concerns Assessment Noted Time PHQ-9 Depression Total Score: 4 08/23/19 24 9:44 AM EDT documented as of this encounter Care Teams Social Security Specialist Relationship Specialty Start Date End Date NameAneesh MD [address] [place] [address] PCP - General Family Medicine 02/14/18 Sandra Rasheed, Javi [address] [place] [address] Pharmacist Internal Medicine 08/24/24 documented as of this encounter
--- OUTSIDE RECORDS SUMMARY | 2025-04-18 07:59 | XMS_ITS | Data Portability ---
Author Organization [place] [facility], Allergy Address [address] [facility] [address] [place] [phone] Care Team Providers Care Child Study Team Director Name Role Phone NAME, LAURENT Primary Care [...] quality. I recommended he see a sheet metal welder, voice specalist, to evaluate him and see if he would be a good candidate for a more permanent medialization procedure. Patient is willing and interested to travel to [place] to hear options. - Referral to [facility] Otolaryngology - Dr. Stafford or Dr. Machuca for discussion [email or web address] Not available 05/04/2024 08:27:45 Plan of Treatment Reminders Order Date Submit Date Provider Last Modified By Organization Details Last Modified Time Details Appointments None recorded. Lab None recorded. Referral otolaryngol ogist referral - Attn: Birgit. Dr. Machuca or Dr. Stafford - bilateral vocal cord paralysis. 2023 024 [email or web address] 2 [facility] Otolaryngolog y, [address] [facility], [facility], [place], [address], 4 10:41:11 Procedures None recorded. Surgeries None recorded. Imaging None recorded. Medication Orders None recorded. Patient TargetsNo targets recorded. Patient InstructionsNo instructions recorded. Reason for Referral Strip Picker Referral fo r Dysphonia Attn: Birgit. Dr. Machuca or Dr. Stafford - bilateral vocal cord paralysis. Referring Physician: Ryan Maya, Otolaryngology, Encounter Date: 05/03/2024 Problems Name Problem SNOMED Code Status Onset Date Resolution Date Notes Provider Name and Address Organization Details Recorded Time Paralysis of larynx 94976678 Active 2018 Paralysis of vocal cords and larynx, unspecifie d; Note: Date Diagnosed: 12/25/2018 2:49 PM (J38.00) Not Available [facility] 4 03:24:49 Dysphonia 37351478 Active 2018 Hoarseness ; Note: Date Diagnosed: 12/25/2018 2:49 PM (R49.0) Not Available [facility] 4 03:24:49 Simple goiter 023722378 Active 2018 Goiter NOS; Note: Date Diagnosed: 12/25/2018 2:49 PM (E04.9) Not Available [facility] 4 03:24:49 Paralysis of larynx 96966652 Active 2023 RYAN MAYA MD [address] [place] [address], [phone] , [facility] 4 08:24:41 Problem Notes None recorded. Procedures Surgical History Date Name Laterality Status Provider Name and Address Organization Details Recorded Time 05/03/20 24 Fiberoptic Laryngoscopy (Comprehensive) completed RYAN MAYA MD [address] [place] [address], [place], [phone], [facility] 05/04/2024 08:24:07 Imaging Results None recorded. [...] Updated DateTime 05/03/2024 167.64 cm 34.7 kg/m2 77531.36 g Dimagiovanny Ramírez [place] [facility] 05/03/2024 13:28:04 Social History None recorded. Functional Status None recorded. Mental Status None recorded. Family History Nothing Reported. Medical History No medical history recorded. Past Encounters Encounter ID Performer Location Encounter Start Date Encounter Closed Date Diagnosis/Indication Diagnosis SNOMED-CT Code Diagnosis ICD10 Code Diagnosis IMO Codes Diagnosis Note [id number] RYAN MAYA MD [facility] [address] [phone] 05/03/2024 13:04:26 05/03/2024 16:54:58 Paralysis of larynx 55761037 J38.02 Dysphonia 68054084 R49.9 Health Concerns Section Related Observation LastModified by Organization Detai ls LastModified Time None Recorded Concern Status LastModified by Organization Details LastModified Time None Recorded Advance Directives Directive None Recorded Payers Insurance Date Sequence Insurance Name Policy Number Policy Hood Covered Member ID Hood Member ID Guarantor Name 05/03/2024 1 [facility] (MEDICARE REPLACEMENT/ ADVANTAGE - HMO) Josue Mace [id number] Josue Mace 05/02/2024 2 [place] [facility] Josue Mace [id number] Josue Mace Notes Date Note Type Note Provider Name and Address Organization Details Recorded Time 05/03/2024 text/html ROS as noted in the HPI 73yo gentleman who presents today for evaluation of bilateral vocal cord paralysis and dysphonia. He has had difficulty with his voice for about 5 years. He underwent a traumatic intubation at [facility] in 2018 in the setting of an anaphylactic event. Following, this resulted in dysphonia and dyspnea with exertion. He was seen by otolaryngology in [place] - Dr. John Coppola. At that time, [...] aspirin 81 & clopidogrel. RYAN MAYA MD [address] [place] [address], [place], [address], [place] [facility] 05/04/2024 20:31:01
--- OUTSIDE RECORDS SUMMARY | 2025-04-18 07:59 | XMS_ITS | Encounter Summary ---
Author Organization [employer] Address 75 [facility] 7t [place] [address] Care Team Providers Care Plant Inspector Name Role Phone Name, Aneesh RIVERS Primary Care Provider [phone] Sandra Rasheed PharmD Unavailable [phone] Reason for Visit * Reason Onset Date Comments FYI 08/23/2023 Encounter Details Date Type Department Care Team ([facility] st Contact Info) Description 08/23/2023 Telephone [facility] MEDICINE [address] [place] [address] Name, MD Aneesh [address] [place] [address] FY Social History Tobacco Use Types Packs/Day [...] much Not at all 08/23/2023 9:44 AM Croinne Stern Feeling tired or having rosa le [...] 3:03 PM EDT Tc from [facility]idy with [facility] stating pt no longer wants to continue care with them. Leidy stated pt no showed 3 appts in a row and when asked about it pt said it was due to to transportation. Pt claims they are irresponsible and that they don't communicate. Pt stated he will continue care with PCP. If any questions please contact Leidy at [phone]. documented in this encounter Plan of Treatment Upcoming Encounters Date Type Department Care Team (Late st Contact Info) Description 05/27/2025 9:30 AM EST Medication Management [facility] MEDICINE [address] [place] [address] Sandra Rasheed, PharmD [address] [place] [address] 05/29/2025 9:30 AM EST Office Visit [facility] MEDICINE [address] [place] [address] Name, MD Aneesh [address] [place] [address] 06/03/2025 9:30 AM EST Office Visit [facility] OPTOMETRY [address] [place] [address] Jayne Huffman, BRYANT 230 [place] [address] documented as of this encounter Visit Diagnoses Not on filedocumented in this encounter Additional Health Concerns Assessment Noted Time PHQ-9 Depression Total Score: 4 08/23/19 24 9:44 AM EDT documented as of this encounter Care Teams Plant Inspector Relationship Specialty Start Date End Date Name, MD Aneesh [address] [place] [address] PCP - General Family Medicine 02/14/18 Sandra Rasheed PharmD [address] [place] [address] Pharmacist Internal Medicine 08/24/24 documented as of this encounter
--- OUTSIDE RECORDS SUMMARY | 2025-04-18 07:59 | XMS_ITS | Encounter Summary ---
Author Organization [employer] Address 75 [facility] 7t [place] [address] Care Team Providers Care Retail Specialist Name Role Phone Name, Aneesh RIVERS Primary Care Provider [phone] Sandra Rasheed PharmD Unavailable [phone] Reason for Visit * Reason Comments Med Refill Encounter Details Date Type Department Care Team ([facility] st Contact Info) Description 06/25/2024 Refill [facility] MEDICINE 230 [place] [address] Name, MD Aneesh 230 [place] [address] Hypertension, unspecified type; Prostatism; Type 2 diabetes mellitus with hyperglycemia (CMS/HCC); manager long term care (current) use of insulin ([facility]) Social History Tobacco Use Types [...] 9:30 AM EST Medication Management [facility] MEDICINE [address] [place] [address] Sandra Rsaheed, PharmD 230 [place] [address] 05/29/2025 9:30 AM EST Office Visit [facility] MEDICINE [address] [place] [address] Name, MD Aneesh 230 [place] [address] 06/03/2025 9:30 AM EST Office Visit [facility] OPTOMETRY [address] [place] [address] Jayne Huffman, OD 230 [place] [address] documented as of this encounter Visit Diagnoses Diagnosis Hypertension, unspecified type Prostatism Unspecified hyperplasia of prostate without urinary obstruction and other lower urinary tract symptoms (LUTS) Type 2 diabetes mellitus with hyperglycemia (HCC) penitentiary (current) use of insulin (CMS/HCC) (HCC) documented in this encounter Additional Health Concerns Assessment Noted Time PHQ-9 Depression Total Score: 4 08/23/19 24 9:44 AM EDT documented as of this encounter Care Teams Retail Specialist Relationship Specialty Start Date End Date Name, MD Aneesh 230 [place] [address] PCP - General Family Medicine 02/14/18 Sandra Rasheed PharmD 230 [place] [address] Pharmacist Internal Medicine 08/24/24 documented as of this encounter
--- OUTSIDE RECORDS SUMMARY | 2025-04-18 07:59 | XMS_ITS | Encounter Summary ---
Author Organization [employer] Address [address] [facility] 7t [place] [address] Care Team Providers Care Health Support Specialist Name Role Phone Name, Aneesh RIVERS Primary Care Provider Sandra Rasheed PharmD Unavailable [phone] Reason for Visit * Reason Comments Med Refill Encounter Details Date Type Department Care Team ([facility] st Contact Info) Description 04/16/2025 Refill [facility] MEDICINE [address] [place] [address] Name, MD Aneesh [address] [place] [address] Left leg pain; Chronic low back pain, [...] Description 05/27/2025 9:30 AM EST Medication Management [facility] MEDICINE [address] [place] [address] Sandra Rasheed, PharmD [address] [place] [address] 05/29/2025 9:30 AM EST Office Visit [facility] MEDICINE [address] [place] [address] Name, MD Aneesh [address] [place] [address] 06/03/2025 9:30 AM EST Office Visit [facility] OPTOMETRY [address] [place] [address] Jayne Huffman, OD 230 [place] [address] documented as of this encounter Visit Diagnoses Diagnosis Left leg pain Pain in soft tissues of limb Chronic low back pain, unspecified back pain laterality, unspecified whether sciatica present documented in this encounter Additional Health Concerns Assessment Noted Time PHQ-9 Depression Total Score: 5 03/06/20 11:44 AM EDT documented as of this encounter Care Teams Health Support Specialist Relationship Specialty Start Date End Date Name, MD Aneesh [address] [place] [address] PCP - General Family Medicine 02/14/18 Sandra Rasheed PharmD [address] [place] [address] Pharmacist Internal Medicine 08/24/24 documented as of this encounter
--- OUTSIDE RECORDS SUMMARY | 2025-04-18 07:59 | XMS_ITS | Encounter Summary ---
Author Organization [employer] Address [address] [facility] 7t [place] [address] Care Team Providers Care Branch General Manager Name Role Phone Name, Aneesh RIVERS Primary Care Provider [phone] Sandra Rasheed PharmD Unavailable [phone] Encounter Details Date Type Department Care Team (Late st Contact Info) Description 03/23/2023 Orders Only [facility]C MED & PEDS [address] [place], [place] [phone] Amber Brantley LPN Social History Tobacco Use [...] t he electric, gas, oil or water [employer] threatened to shut off services in your [...] [facility] MEDICINE [address] [place] [address] Sandra Rasheed PharmD [address] [place] [address] 05/29/2025 9:30 AM EST Office Visit [facility] MEDICINE [address] [place] [address] Name, MD Aneesh 230 [place] [address] 06/03/2025 9:30 AM EST Office Visit [facility] OPTOMETRY [address] [place] [address] Nathanael, Jayne, OD [address] [place] [address] documented as of this encounter Visit Diagnoses Not on filedocumented in this encounter Care Teams Branch General Manager Relationship Specialty Start Date End Date Name, MD Aneesh [address] [place] [address] PCP - General Family Medicine 02/14/18 Sandra Rasheed PharmD [address] [place] [address] Pharmacist Internal Medicine 08/24/24 documented as of this encounter
--- OUTSIDE RECORDS SUMMARY | 2025-04-18 07:59 | XMS_ITS | Encounter Summary ---
Author Organization [employer] Address [address] [facility] 7t [place] [address] Care Team Providers Care Refractory Grinder Operator Name Role Phone Name, Aneesh RIVERS Primary Care Provider [phone] Sandra Rasheed PharmD Unavailable [phone] Reason for Visit * Reason Comments Med Refill Encounter Details Date Type Department Care Team ([facility] st Contact Info) Description 05/02/2024 Refill [facility] MEDICINE [address] [place] [address] Name, MD Aneesh 230 [place] [address] Chronic constipation Social History Tobacco Use Types [...] Upcoming Encounters Date Type Department Care Team ([facility] st Contact Info) Description 05/27/2025 9:30 AM EST Medication Management [facility] MEDICINE [address] [place] [address] Sandra Rasheed, PharmD 230 [place] [address] 05/29/2025 9:30 AM EST Office Visit [facility] MEDICINE [address] [place] [address] Aneesh Oliveira MD 230 [place] [address] 06/03/2025 9:30 AM EST Office Visit [facility] OPTOMETRY [address] [place] [address] Nathanael, Jayne, OD 230 [place] [address] documented as of this encounter Visit Diagnoses Diagnosis Chronic constipation Unspecified constipation documented in this encounter Additional Health Concerns Assessment Noted Time PHQ-9 Depression Total Score: 4 08/23/19 24 9:44 AM EDT documented as of this encounter Care Teams Refractory Grinder Operator Relationship Specialty Start Date End Date Aneesh Oliveira MD [address] [place] [address] PCP - General Family Medicine 02/14/18 Sandra Rasheed, Javi [address] [place] [phone] Pharmacist Internal Medicine 08/24/24 documented as of this encounter
--- OUTSIDE RECORDS SUMMARY | 2025-04-18 08:00 | XMS_ITS | Clinical Summary ---
Author Organization [employer] Address [address] [facility] [address] [place] [address] Care Team Providers Care Syrup Mixer Assistant Name Role Phone Name, Aneesh RIVERS Primary Care Provider [phone] Sandra Rasheed PharmD Unavailable [phone] Allergies Active Allergy Reactions Criticality Noted [...] 2 times daily. Active insulin pen needle (G-modetiGuard SafePack Pen Needle) 32G x 4 mm miscIndications: Type 2 diabetes mellitus with hyperglycemia ([facility]) Use to inject insulin 4 times daily 200 each Active glucose blood (FREECULTRuch Ultra) test stripIndications :Type 2 diabetes mellitus with hyperglycemia ([facility]) TEST BLOOD SUGAR THREE TIMES DAILY 100 strip Active metFORMIN (Glucophage) 1000 MG tabletIndication s:Type 2 diabetes mellitus with other specified complication, without long-term current use of insulin ([facility]) TAKE 1 TABLET BY MOUTH TWICE DAILY [...] with long-term current use of insulin ([facility]) Inject 0.75 mL (2 mg) under the skin 1 (one) time per week. 3 mL 025 Active rosuvastatin (Crestor) 20 MG tabletIndication s:Type 2 diabetes mellitus with hyperglycemia, with long-term current use of insulin ([facility]) Take 1 tablet (20 mg) by mouth Once per day. 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 90 tablet 2 025 2024 Discontinued gabapentin (Neurontin) 100 MG capsuleIndicatio ns:Left leg pain,Chronic low back pain, unspecified back pain laterality, unspecified whether sciatica present TAKE 2 CAPSULES BY MOUTH TWICE DAILY AT NOON AND BEDTIME 120 capsule 2 025 2024 Discontinued Blood Glucose Monitoring [...] Encounters Date Type Department Care Team Description 04/16/2025 Refill [facility] [address] [place] [address] Aneesh Oliveira MD Left leg pain; Chronic low back pain, unspecified back pain laterality, unspecified whether sciatica present 04/10/2025 Refill [facility] [address] [place] [address] Aneesh Oliveira MD Left leg pain; Chronic low back pain, unspecified back pain laterality, unspecified whether sciatica present 04/10/2025 Refill [facility] [address] [place] [address] Sandra Rasheed, PharmD 04/04/2025 Telephone [facility] [address] [place] [address] Aneesh Oliveira MD 04/04/2025 Telephone [facility] [address] [place] [address] Aneesh Oliveira MD Transition Of Care (Tcm) 04/03/2025 Orders Only [facility] External Provider, [facility] 04/01/2025 Refill [facility] [address] [place] [address] Aenesh Oliveira MD Type 2 diabetes mellitus with other specified complication, without long-term current use of insulin (HCC) (Primary Dx) 03/06/2025 11:00 AM EDT Office Visit [facility] [address] [place] [address] Aneesh Oliveira MD Type 2 diabetes mellitus with other specified complication, without long-term current use of insulin (CMS/HCC) (Primary Dx); Stage 3a chronic kidney disease (CMS/HCC); Hypertension, unspecified type; Chronic low back pain, unspecified back pain laterality, unspecified whether sciatica present; Generalized osteoarthritis; Encounter for immunization 03/06/2025 Travel 02/18/2025 Telephone [facility] [address] [place], [place] [phone] Aneesh Oliveira MD Chart Prep 02/04/2025 Travel 02/01/2025 Refill [facility] [address] [place] [address] Sandra Rasheed PharmD Type 2 diabetes mellitus with hyperglycemia (CMS/HCC); senior care (current) use of insulin (CMS/HCC) 01/24/2025 Refill [facility] [address] [place] [address] NameAneesh MD Chronic low back pain, unspecified back pain laterality, unspecified whether sciatica present 01/22/2025 Refill [facility] [address] [place], [place] [phone] Sandra Rasheed PharmD Type 2 diabetes mellitus with hyperglycemia (CMS/HCC); 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 (CMS/HCC) 01/20/2025 Orders Only GENERIC EXTERNAL DATA DEPARTMENT [...] Description 05/27/2025 9:30 AM EST Medication Management [facility] [address] [place] [address] PuiaSandra, PharmD [address] [place] [address] 05/29/2025 9:30 AM EST Office Visit [facility] [address] [place] [address] Name, MD Aneesh [address] [place] [address] 06/03/2025 9:30 AM EST Office Visit [facility] [address] [place] [address] Jayne Huffman, OD [address] [place] [address] Health Maintenance Due Date Last Done Comments [...] Name Priority Date/Time Associated Diagnosis Comments US ABDOMEN COMPLETE Routine 04/15/2025 2 :54 PM EST VASC US LOWER EXTREMITY ARTERIAL DUPLEX BILATERAL [...] complication, without long-term current use of insulin ([facility]) POCT GLYCATED HEMOGLOBIN, TOTAL Routine 02/04/2025 12:26 [...] Relevant to Health Maintenance Results * US Abdomen Complete (04/15/2025 2:54 PM EST) Anatomical Region Laterality Modality Abdomen Ultrasound 04/15/2025 2:54 PM EST Narrative 04/15/2025 2:56 PM EST [place] [address] Ultrasound Report Signed Patient: Josue Dawson MR#: [id number] : 1950 Acct:[id number] Age/Sex: 74 / M ADM Date: 04/15/25 Loc: HO.US Attending Dr: Toma Hernández MD Ordering Physician: Toma Hernández MD Date of Service: 04/15/25 Procedure(s): US abdomen complete Accession Number(s): [id number] cc: Name,Aneesh RIVERS; Toma Hernández MD Reason for Exam: K76.0 - Fatty (change of) liver, not elsewhere classified CLINICAL HISTORY: K76.0 - Fatty (change of) liver, not elsewhere classified US abdomen complete Comparison: CT/REG/SR - CT ABDOMEN PELVIS W IV CON - 01/20/25 10:22 EDT Findings: The visualized pancreas head is normal. The visualized aorta and inferior vena cava are normal caliber. The liver is enlarged, right lobe length is 19.3 cm. Moderately increased echogenicity and coarsened echotexture of the liver parenchyma. No discrete lesion is visualized in the imaged liver. No intrahepatic bile duct dilatation. The common duct is 4 mm in diameter. The gallbladder is normal. Negative sonographic Siegel sign. The main portal vein is patent with antegrade flow. The right kidney demonstrates minimally complex benign cyst with thin septation 2.9 x 2.7 x 2.1 cm of the midpole, otherwise normal, 11.9 cm in length. The left kidney is normal, 12.5 cm in length. The spleen is top-normal normal, 12.7 cm in length. No free fluid in the abdomen. Impression: 1. Echogenic and coarse liver parenchyma is non-specific and can be seen in parenchymal liver disease. No hepatic lesion is seen. 2. Hepatomegaly. 3. Right renal cyst. This document has been electronically signed by: Kelley Worley MD on 04/15/2025 14:54:36 Dictated By: Kelley Worley MD Signed By: <Electronically signed by Kelley Worley MD in OV> 04/15/25 1455 DD/ 145 TD/TT: 04/15/25 145 Radio Installer: Procedure Note Donotuseinterpreter, Image - 04/15/2025 [place] [address] Ultrasound Report Signed Patient: Sylvia Dawson#: [id number] : 1Acct:[id number] Age/Sex: 74 / MADM Date: 04/15/25 Loc: HO.US Attending Dr: Toma Hernández MD Ordering Physician: Toma Hernández MD Date of Service: 04/15/25 Procedure(s): US abdomen complete Accession Number(s): [id number] cc: Name,Aneesh RIVERS; Toma Hernández MD Reason for Exam: K76.0 - Fatty (change of) liver, not elsewhereclassified CLINICAL HISTORY: K76.0 - Fatty (change of) liver, not elsewhereclassified US abdomen complete Comparison: CT/REG/SR - CT ABDOMEN PELVIS W IV CON - 01/20/25 10:22 EDT Findings: The visualized pancreas head is normal. The visualized aorta and inferior vena cava are normal caliber. The liver is enlarged, right lobe length is 19.3 cm. Moderately increased echogenicity and coarsened echotexture of the liver parenchyma. No discrete lesion is visualized in the imaged liver. No intrahepatic bile duct dilatation. The common duct is 4 mm in diameter. The gallbladder is normal. Negative sonographic Siegel sign. The main portal vein is patent with antegrade flow. The right kidney demonstrates minimally complex benign cyst with thin septation 2.9 x 2.7 x 2.1 cm of the midpole, otherwise normal, 11.9 cm in length. The left kidney is normal, 12.5 cm in length. The spleen is top-normal normal, 12.7 cm in length. No free fluid in the abdomen. Impression: 1. Echogenic and coarse liver parenchyma is non-specific and can be seen in parenchymal liver disease. No hepatic lesion is seen. 2. Hepatomegaly. 3. Right renal cyst. This document has been electronically signed by: Kelley Worley MD on 04/15/2025 14:54:36 Dictated By: Kelley Worley MD Signed By: <Electronically signed by Kelley Worley MD in OV> 04/15/25 1455 DD/ 1454 TD/TT: 04/15/25 1454 Radio Installer: [facility] External Provider IMG US PROCEDURES Final Result * VASC US Lower Extremity Arterial Duplex Bilateral With Baylee (04/08/2025 9:50 AM EDT) 04/08/2025 9:50 AM EDT Narrative [facility] IMAGING - 04/08/2025 11:32 AM EDT [address] [address] Ultrasound Report Signed Patient: Josue Dawson MR#: [id number] : 1950 Acct:[id number] Age/Sex: 74 / M ADM Date: 04/08/25 Loc: .US Attending Dr: Rodney Smith MD Ordering Physician: Rodney Smith MD Date of Service: 04/08/25 Procedure(s): US arterial duplex BI w/ BAYLEE Accession Number(s): [id number] cc: Rodney Smith MD; Name,Aneesh RIVERS Reason [...] 04/08/25 1129 DD/ 0950 TD/TT: 04/08/25 1023 Radio Installer: Procedure Note Donotuseinterpreter, Image - 04/08/[address] [address] Ultrasound Report Signed Patient: Dain Josue Mace#: [id number] : 1Acct:[id number] Age/Sex: 74 / MADM Date: 04/08/25 Loc: . Attending Dr: Rodney Smith MD Ordering Physician: Rodney Smith MD Date of Service: 04/08/25 Procedure(s): US arterial duplex BI w/ BAYLEE Accession Number(s): [id number] cc: Rodney Smith MD; Name,Aneesh Reason for Exam: I73.9 - Peripheral vascular [...] 04/08/25 1129 DD/ 0950 TD/TT: 04/08/25 1023 Radio Installer: us [facility] External Provider CV VASC ULAR PROCEDURES Edited Result - Final [facility] [address] [place] [phone] * XR KUB and Upright 2 Views (04/03/2025 11:08 PM EDT) Anatomical Region Laterality Modality Radiographic Trang ging 04/03/2025 11:0 8 PM EDT Narrative 04/03/2025 11:10 PM EDT [address] [address] XRay Report Signed Patient: Josue Dawson MR#: [id number] : 1950 Acct:[id number] Age/Sex: 74 / M ADM Date: 04/03/25 Loc: HO.ED Attending Dr: Ordering Physician: Cherelle Peralta Date of Service: 04/03/25 Procedure(s): XR KUB Accession Number(s): [id number] cc: Cherelle Peralta; Name,Aneesh RIVERS Reason for [...] in OV> 04/03/252308 DD/ 07 TD/TT: 04/03/252307 Radio Installer: Procedure Note Donotuseinterpreter, Image - 04/03/[address] [address] XRay Report Signed Patient: Josue DawsonMR#: [id number] : 1950cct:[id number] Age/Sex: 74 / MADM Date: 04/03/25 Loc: HO.ED Attending Dr: Ordering Physician: Cherelle Peralta Date of Service: 04/03/25 Procedure(s): XR KUB Accession Number(s): [id number] cc: Cherelle Peralta; Aneesh Oliveira MD Reason for Exam: constipation?pain CLINICAL HISTORY: constipation?pain [...] in OV> 04/03/252308 DD/ 07 TD/TT: 04/03/252307 Radio Installer: [facility] External Provider IMG XR PROCEDURES Edited Result - Final * XR Chest 2 Views (04/03/2025 9:00 AM EDT) Anatomical Region Laterality Modality Chest Radiographic Trang ging 04/03/2025 9:00 AM EDT Narrative 04/03/2025 9:10 AM EDT [place] [address] XRay Report Signed Patient: Josue Dawson MR#: [id number] : 1950 Acct:[id number] Age/Sex: 74 / M ADM Date: 04/03/25 Loc: .ED Attending Dr: Ordering Physician: Generic ED Physician Date of Service: 04/03/25 Procedure(s): XR chest 2V Accession Number(s): [id number] cc: Generic ED Physician; Name,Aneesh RIVERS Reason [...] OV> 04/03/25 09 DD/ 9 TD/TT: 04/03/25904 Radio Installer: Procedure Note Donotuseinterpreter, Image - 04/03/[address] [address] XRay Report Signed Patient: Josue DawsonMR#: [id number] : 1950cct:[id number] Age/Sex: 74 / MADM Date: 04/03/25 Loc: HO.ED Attending Dr: Ordering Physician: Generic ED Physician Date of Service: 04/03/25 Procedure(s): XR chest 2V Accession Number(s): [id number] cc: Generic ED Physician; Name,Aneesh RIVERS Reason [...] in OV> 04/03/25907 DD/ 9 TD/TT: 04/03/25904 Radio Installer: [facility] External Provider IMG XR PROCEDURES Final Result * Influenza A B2 ID NOW (Causey) (04/03/2025 8:54 AM EDT) IDNOW SERIAL# [id number] [facility] Influenza A Negative Negative [facility] Influenza B2 Negative Negative [facility] Influenza A B2 Note See Note [facility] Comment:The Causey ID NOW In fluenza [...] LAB MICROBIOLOGY - GENERAL ORDERABLES Final Result [facility] [address] [place] [phone] * COVID-19 ID NOW (Swyft) (04/03/2025 8:54 AM EDT) IDNOW SERIAL# [id number] [facility] COVID-19 TEST Negative Negative [facility] COVID-19 NOTE See Note [facility] Comment: Results are for the identification of SARS-CoV2 RNA. TheSARS-CoV2 RNA is generally detectable in respiratory samplesduring the acute phase of infection. Positive results areindicative of the presence of SARS-CoV-2 RNA; clinicalcorrelation with patient history and other diagnosticinformation is necessary to determine patient infectionstatus. Positive results do not rule out bacterial infectionor co- infection with other viruses.Testing facilities within the [facility] and [facility] are required to report all positive results [...] use by authorized laboratories.Testing performed on the Minubo ID NOW utilizing NAAT. 04/03/2025 8:54 AM EDT 04/03/2025 8:59 AM EDT us Generic External Data Provider LAB MOLECULAR MAME GNOSTICS ORDERABLES Final Result [facility] [address] [place] [phone] * (ABNORMAL) CBC auto differential (04/03/2025 8:54 AM EDT) White Blood Count 9.7 4.8 - 10.8 X10*3/uL [facility] Red Blood Count 5.01 4.60 - 5.80 X10*6/uL [facility] Hemoglobin 14.9 14.0 - 18.0 g/dl [facility] Hematocrit 44.0 42.0 - 52.0 % [facility] Mean Corpuscular Volume 87.8 80.0 - 98.0 fL [facility] Mean Corpuscular Hemoglobin 29.7 27.0 - 33.0 pg [facility] Mean Corpuscular HGB Conc 33.9 31.0 - 36.0 g/dl [facility] Red Cell Distribution Width 13.3 11.0 - 16.0 % [facility] Platelet Count 312 160 - 400 X10*3/uL [facility] Mean Platelet Volume 10.1 9.4 - 12.4 fL [facility] Neutrophils Percent Auto 64.8 45 - 73 % [facility] Imm Gran Pct Auto 0.9(H) 0.0 - 0.4 % [facility] Lymphocytes Percent Auto 25.2 20 - 40 % [facility] Monocytes Percent Auto 6.6 2 - 11 % [facility] Eosinophils Percent Auto 1.9 0 - 4 % [facility] Basophils Percent Auto 0.6 0 - 2 % [facility] NRBC Pct Auto 0.0 0.0 - 0.2 /100WBC [facility] Neutrophils Absolute Auto 6.3 2.0 - 8.3 x10*3/uL [facility] Imm Gran Abs Auto 0.09(H) 0.00 - 0.03 X10*3/uL [facility] Lymphocytes Absolute Auto 2.4 1.2 - 4.9 X10*3/uL [facility] Monocytes Absolute Auto 0.6 0.1 - 1.2 X10*3/uL [facility] Eosinophils Absolute Auto 0.2 0.0 - 0.4 X10*3/uL [facility] Basophils Absolute Auto 0.1 0.0 - 0.2 X10*3/uL [facility] NRBC Abs Auto 0.000 0.0 - 0.012 X10*3/uL [facility] 04/03/2025 8:54 AM EDT 04/03/2025 8:59 AM EDT us Generic External Data Provider LAB BLOOD ORDERAB LES Final Result [facility] [address] [place] [phone] * (ABNORMAL) Comprehensive Metabolic Panel (04/03/2025 8:54 AM EDT) Sodium 137 135 - 145 mmol/L [facility] Potassium 4.3 3.3 - 5.1 mmol/L [facility] Comment:Slight Hemolysis.Int erpret result with caution. Chloride 103 96 - 108 mmol/L [facility] Carbon Dioxide 27 22 - 29 mmol/L [facility] Anion Gap 11(L) 12 - 20 [facility] Urea Nitrogen (BUN) 21(H) 9 - 16 mg/dL [facility] Creatinine, Serum 1.14 0.5 - 1.4 mg/dL [facility] Creatinine Clr Calc Pharmacy 62.4 [facility] Comment:eGFR (calculated fro m the MDRD study equation) and eCrCl(calculated from the Cockcroft-Gault equation) are based ondifferent parameters and may not yield comparable results.If eCrCl result is absurd, please check patient'sheight/weight. Estimated Glomerular Filt Rate >60 [facility] Comment:Chronic Kidney Disea se: Estimated GFR < 60 mL/min/[id number] Kidney Disease: Estimated GFR < 15 mL/min/1.73m2 Glucose 253(H) 60 - 115 mg/dL [facility] Calcium 9.8 8.4 - 10.2 mg/dL [facility] Bilirubin, Total 0.4 0.0 - 1.0 mg/dL [facility] Aspartate Amino Transferase 55(H) 5 - 37 U/L [facility] Comment:Slight Hemolysis.Int erpret result with caution. Alanine Aminotransferase 74(H) 0 - 40 U/L [facility] Total Protein 7.5 6.5 - 8.0 g/dL [facility] Albumin Level 3.9 3.5 - 5.0 g/dL [facility] Alkaline Phosphatase 63 39 - 117 U/L [facility] 04/03/2025 8:54 AM EDT 04/03/2025 8:59 AM EDT us Generic External Data Provider LAB BLOOD ORDERAB LES Final Result [facility] [address] [place] [phone] * (ABNORMAL) POCT Glucose (03/06/2025 11:00 AM EDT) Pathologist [facility] Glucose Blood, POC 320(A) 60 - 200 mg/dL QC Media Lot # [id number] Lot# Expiration Date Blood Capillary blood specimen / Unknown 03/06/2025 11:00 AM EDT Aneesh Oliveira MD POINT OF CARE TEST ENTER/EDIT OR DERABLES Final Result * (ABNORMAL) POCT HGB A1C (02/04/2025 12:26 PM EDT) Hemoglobin A1C 8.7(A) 4.0 - 5.7 % Blood 02/04/2025 12:2 6 PM EDT Aneesh Oliveira MD POINT OF CARE TEST ENTER/EDIT OR DERABLES Final Result * CT Abdomen Pelvis w/ Contrast (01/20/2025 11:46 AM EDT) Anatomical Region Laterality Modality Body, Pelvis, Abdomen Computed T omography 01/20/2025 11:4 6 AM EDT Narrative 01/20/2025 11:48 AM EDT [place] [address] CT Scan Report Signed Patient: Josue Dawson MR#: [id number] : 1950 Acct:[id number] Age/Sex: 74 / M ADM Date: 01/20/25 Loc: .ED Attending Dr: Ordering Physician: Armaan Clark Date of Service: 01/20/25 Procedure(s): CT abdomen pelvis w IV con Accession Number(s): [id number] cc: Armaan Clark; Name,Aneesh RIVERS Report Number: [id number]: Total DLP = 695.00 mGy-cm CLINICAL HISTORY: [...] in OV> 01/20/25 114 DD/ 45 TD/TT: 01/20/251145 Radio Installer: Procedure Note Jesseotmolly, Image - 01/20/[address] [address] [address] Scan Report Signed Patient: Sylvia Dawson#: [id number] : 1950cct:[id number] Age/Sex: 74 / MADM Date: 01/20/25 Loc: HO.ED Attending Dr: Ordering Physician: Armaan Clark Date of Service: 01/20/25 Procedure(s): CT abdomen pelvis w IV con Accession Number(s): [id number] cc: Armaan Clark; Name,Aneesh RIVERS Report Number: [id number]: Total DLP = 695.00 mGy-cm CLINICAL HISTORY: [...] in OV> 01/20/25 1147 DD/ 45 TD/TT: 01/20/251145 Radio Installer: [facility] External Provider IMG CT PROCEDURES Edited Result - Final * (ABNORMAL) Urinalysis, Complete, with Reflex to Culture (01/20/2025 11:26 AM EDT) Color Urine Yellow [facility] Appearance Urine Clear [facility] PH 7.0 5.0 - 9.0 [facility] Glucose Urine UA >=1000(A) Negative mg/dL [facility] Urine Blood Negative Negative [facility] Specific [place] - Urine 1.025 1.005 - 1.025 [facility] Urine Protein 300 (3+)(A) Neg-Trace mg/dL [facility] Urine Ketones Negative Negative mg/dL [facility] Nitrite Urine Negative Negative [facility] Leukocyte Esterase Urine Negative Negative [facility] RBC Urine 0-2 0 - 2 /HPF [facility] Urine WBC 0-5 0 - 5 /HPF [facility] Urine Squamous Epithelial Cell 0-2 0 - 2 /HPF [facility] Urine Bacteria None Seen None Seen [facility] Hyaline Casts, Urine 0-2 0 - 2 /LPF [facility] 01/20/2025 11:2 6 AM EDT 01/20/2025 11:46 AM EDT Narrative [facility] - 01/20/2025 11:56 AM EDT [id number], Clean C[employer] us Generic External Data Provider LAB URINE ORDERAB LES Final Result [facility] [address] [place] [phone] * (ABNORMAL) Basic Metabolic Panel (01/16/2025 9:22 AM EDT) Sodium 139 135 - 145 mmol/L [facility] Potassium 3.7 3.3 - 5.1 mmol/L [facility] Chloride 102 96 - 108 mmol/L [facility] Carbon Dioxide 29 22 - 29 mmol/L [facility] Anion Gap 12 12 - 20 [facility] Urea Nitrogen (BUN) 23(H) 9 - 16 mg/dL [facility] Creatinine, Serum 1.08 0.5 - 1.4 mg/dL [facility] Estimated Glomerular Filt Rate >60 [facility] Comment:Chronic Kidney Disea se: Estimated GFR < 60 mL/min/1.68c3Zfogdb Kidney Disease: Estimated GFR < 15 mL/min/1.73m2 Glucose 170(H) 60 - 115 mg/dL [facility] Calcium 10.0 8.4 - 10.2 mg/dL [facility] 01/16/2025 9:22 AM EDT 01/16/2025 9:22 AM EDT us Generic External Data Provider LAB BLOOD ORDERAB LES Final Result [facility] [address] [place] [phone] * (ABNORMAL) Urinalysis Complete (01/16/2025 9:19 AM EDT) Color Urine Yellow [facility] Appearance Urine Clear [facility] PH 5.5 5.0 - 9.0 [facility] Glucose Urine UA >=1000(A) Negative mg/dL [facility] Urine Blood Negative Negative [facility] Specific [place] - Urine 1.020 1.005 - 1.025 [facility] Urine Protein 300 (3+)(A) Neg-Trace mg/dL [facility] Urine Ketones Negative Negative mg/dL [facility] Nitrite Urine Negative Negative [facility] Leukocyte Esterase Urine Negative Negative [facility] RBC Urine 0-2 0 - 2 /HPF [facility] [facility] Urine WBC 0-5 0 - 5 /HPF [facility] Urine Squamous Epithelial Cell 0-2 0 - 2 /HPF [facility] Urine Bacteria None Seen None Seen [facility] Hyaline Casts, Urine 3-5 0 - 2 /LPF [facility] 01/16/2025 9:19 AM EDT 01/16/2025 9:48 AM EDT us Generic External Data Provider LAB URINE ORDERAB LES Final Result [facility] [address] [place] [phone] * Cytopath-cell enhanced (01/16/2025 9:09 AM EDT) 01/16/2025 9:09 AM EDT 01/17/2025 8:15 AM EDT Narrative [facility] - 01/17/2025 3:04 PM EDT ----- ------- Name: Josue Dawson Age/Sex: 74/M : 1950 Unit#: [id number] Attend Dr: Jd Painter MD Re01/16/25 Status: DEP [facility] Dis[facility]: ----- ------- SPEC : [id number] RECD: 01/17/25 STATUS: ELLA MCKOY NUM: [id number] JUWAN: 01/16/25 [facility] DR: Jd Painter MD ENTERED: 01/17/25 SP TYPE: Cytology OTHR DR: nAeesh Oliveira MD ORDERED: Cyto-enhanced Diagnosis Urine: Negative [...] developed and their performance characteristics determined by [facility]. They have not been cleared or approved by the U.S. Food and Drug Administration (FDA). However, the FDA has determined that such clearance or approval is not necessary. This laboratory is certified under the Clinical Laboratory Improvement Amendments of 1988 (CLIA) as qualified to perform high complexity clinical laboratory testing. Copies To: Jd Painter MD [facility] [address] [place] [address] [address] [place] [address] [email or web address] Name,Aneesh RIVERS [address] [place] [phone] CONTINUED ON NEXT PAGE ----- ------- Name: Josue Dawson Age/Sex: 74/M : 1950 Unit#: [id number] Attend Dr: Jd Painter MD Re01/16/25 Status: DEP REF Location: [facility] Disch: ----- ------- SPEC : [id number] RECD: 01/17/25 STATUS: ELLA MCKOY NUM: [id number] JUWAN: 01/16/25 [facility] [address]: Jd Painter MD ENTERED: 01/17/25 SP TYPE: Cytology OTHR DR: Aneesh Oliveira MD ORDERED: Cyto-enhanced ----- ------- Signed (signature on file) Yevgeniy Avila MD 01/17/25 1504 ----- ------- END OF REPORT us Generic External Data Provider LAB CYTOLOGY ZENAIDA MAYER Final Result [facility] [address] [place] [address] [phone] * (ABNORMAL) Lipid Panel, Standard (11/17/2024 10:29 AM EDT) Triglycerides 129 <150 mg/dL [facility] Comment:Desirable Triglyceri de: less than 150 mg/dLBorderline High Triglyceride 150-199 mg/dLHigh Triglyceride: 200-499 mg/dLVery High Triglyceride: greater than or equal to 5OO mg/dL Cholesterol 179 <200 mg/dL [facility] Comment:Desirable Cholestero l: less than 200 mg/dLBorderline High Cholesterol: 200-239 mg/dLHigh Cholesterol: greater than 239 mg/dL LDL Cholesterol Calculated 115(H) <100 mg/dL [facility] Comment:Desirable LDL: less than 100 mg/dLNear [...] 9 AM EDT 11/17/2024 10:29 AM EDT Convo External Data Provider LAB BLOOD ORDERAB LES Final Result [facility] [address] [place] [phone] * (ABNORMAL) Hm Colonoscopy (02/10/2023) Colonoscopy Abnormal(A ) Normal us Aneesh Oliveira MD HEALTH MAINTENANCE Final Result * HEPATITIS C AB W/REFL TO HCV RNA, QN, PCR (11/25/2020 10:49 AM EDT) HEPATITIS C ANTIBODY NON-REACT TOM NON-REACT TOM [facility] INDEX 0.00 <1.00 [facility] Comment: HCV antibody was non-reactive. There is no laboratory evidence of HCV infection. In most cases, no further action is required. However, if recent HCV exposure is suspected, a test for HCV RNA (test code 51988) is suggested. For additional information please refer to http://education.Tink/faq/ESF58n5 (This link is being provided for informational/ educational purposes only.) 11/25/2020 10:4 9 AM EDT us Aneesh Oliveira MD HISTORICAL/NON ORDERABLE LABS Fi nal Result [facility] [address] from Last 3 Months or Most Recently Relevant to Health Maintenance [place] [address] [place] [address] STANDARD UHC DUAL COMPLETE DENTAL - [facility] Care Teams Syrup Mixer Assistant Relationship Specialty Start Date End Date Name, MD Aneesh [address] [place] [address] PCP - General Family Medicine 02/14/18 Sandra Rasheed, AnkushD [address] [place] [address] Pharmacist Internal Medicine 08/24/24
[2025-04-18 08:59] LABS: Hematocrit 45.5 % (42.0-52.0); Hemoglobin 14.6 g/dl (14.0-18.0); Mean Corpuscular HGB Conc 32.1 g/dl (31.0-36.0); Mean Corpuscular Hemoglobin 29.0 pg (27.0-33.0); Mean Corpuscular Volume 90.3 fL (80.0-98.0); NRBC Abs Auto 0.000 X10*3/uL (0.0-0.012); NRBC Pct Auto 0.0 /100WBC (0.0-0.2); Platelet Count 305 X10*3/uL (160-400); Red Blood Count 5.04 X10*6/uL (4.60-5.80); White Blood Count 10.3 X10*3/uL (4.8-10.8)
[2025-04-18 09:35] LABS: Anion Gap 13 (12-20); Blood Urea Nitrogen 29 mg/dL (9-16); Calcium 10.4 mg/dL (8.4-10.2); Carbon Dioxide 29 mmol/L (22-29); Chloride 102 mmol/L (96-108); Estimated Glomerular Filt Rate > 60; Potassium 4.3 mmol/L (3.3-5.1); Sodium 140 mmol/L (135-145)
== END 2025-04-18 07:55 | disposition home or self-care (01) ==
LOC: HO.LAB 07:54
PROVIDERS: PCP Internal Medicine Geriatric Medicine; Visit Provider Internal Medicine Hypertension Specialist
DX: I10 Essential (primary) hypertension (principal)
CPT/HCPCS: 36415; 80048; 85027

== ENCOUNTER 2025-04-23 09:19 | Outpatient (AMB) | payer OTHER, SELFPAY ==
[2025-04-23 09:28] VITALS: BP 130/64; PULSE 78; O2SAT 97; BMI 34.9
--- NOTE | 2025-04-23 09:28 | HO.NEPHOV_ITS ---
Vital Signs 04/23/25 09:28 Height 5 ft 6 in Weight 216 lb BMI 34.9 BP 130/64 Blood Pressure Location Rt brachial Position Sitting Pulse 78 Pulse Source Pulse Oximeter Pulse Oximetry (%) 97 Oxygen Delivery Method Room Air Intake Visit Reasons: 3mon f/u w/labs Tourism Radio Presenter Required: Yes Tourism Radio Presenter Name: Joshua Venegas [phone] Accompanied by: Self / Same As Patient Allergies lisinopril (LISINOPRIL) Allergy (Severe, Verified 04/23/25 09:30) ANGIOEDEMA prednisone (PREDNISONE) Allergy (Mild, Verified 04/23/25 09:30) ITCHY Medication List - Last Reconciled 04/23/25 by Jd Painter MD amlodipine 10 mg PO QAM aspirin 81 mg PO DAILY blood sugar diagnostic As directed canagliflozin (Invokana) 100 mg PO DAILY chlorthalidone 50 mg PO QAM clopidogrel (Plavix) 75 mg PO DAILY doxycycline hyclate 100 mg PO BID 7 days flash glucose scanning reader ([place] Willy 2 [place]) As directed flash glucose sensor (FreeStyle Willy 2 Sensor kit) As directed change every 14 days gabapentin 100 mg PO TID gabapentin 200 mg PO BID hydralazine 25 mg PO TID insulin glargine U-300 conc (Toujeo Max U-300 SoloStar) 80 units (0.2667 mL) subcut BEDTIME insulin lispro (Humalog KwikPen (U-100) Insulin) Inject 30 units before breakfast, 35 units before lunch and 35 units before dinner subcutaneously; insulin syringe-needle U-100 As directed lancets (OneTouch UltraSoft 2 Lancet) As directed lancets As directed lidocaine 5% 1 patch topical DAILY PRN metformin 1,000 mg PO BID ondansetron 4 mg PO Q8H PRN pen needle, diabetic (UltiCare Pen Needle) USE DIRECTED FOUR TIMES DAILY rosuvastatin 20 mg PO BEDTIME semaglutide (Ozempic) 2 mg subcut QWEEK spironolactone 25 mg PO QAM tamsulosin 0.8 mg PO BEDTIME verapamil ER 120 mg PO QAM HPI Comments Details: 72-year-old man with a history of longstanding hypertension and diabetes mellitus with CKD. He has had episodes of acute kidney injury an currently renal function is back to baseline. Baseline creatinine is less than 1.0. He has difficult to control blood sugars. Recent A1c was 8.2%. Blood pressure has been well controlled. He has microalbuminuria. He has not any JACQUELYN inhibitor due to angioedema requiring ICU admission. He is currently on Invokana History of nontoxic multinodular goiter. Tourism Radio Presenter service was used Cellulitis of left leg : s/p antibiotics 03/08/24 Doing better ;Seen by Dr. Smith s/p Successful plasty of left popliteal and peroneal artery on 03/07/24 04/23/24 c/o body pain;On statins 07/16/24 ;On ozempic- lost about 10 lbs Did not take anti hypertensives today 09/25/24 : Overall doing well. No urinary issues Recent CT showed incidental 2 cm cyst right kidney and anterior bladder wall thickening 11/19/24 74-year-old male presenting with persistent flank pain and diabetes control. Persistent flank pain, primarily on the left side, is reported by the patient. The pain generally arises with physical exertion or when bending and bothers him at night, though it somewhat subsides with Tylenol. Diagnosed with a stable simple renal cyst on previous imaging, this lesion has not changed since a CT scan in August. He also grapples with being overweight, recently gaining nearly 10 pounds. His diet is largely uncontrolled, leading to substantial meal consumption driven by profound hunger. The patient's diabetes management is suboptimal, as evidenced by a Hemoglobin A1c of 9.2. Routine kidney function tests indicate stable results, though recent urinalysis did not include the requested tests needed for comprehensive diabetes management. 01/22/25 c/o leg pain Underwent vascular procedure and feels better In ER for sciatica last week ;On pain patch BP was elevated Hydralazine was added yesterday 04/23/25 The patient is a 74-year-old male for follow up regarding CKD/HTN Conitnues to have back pain on and off Recent imaging showed normal kidneys [facility] Medical History NAFLD (nonalcoholic fatty liver disease) Transaminitis Basal cell carcinoma (BCC) Skin lesion of left lower extremity Heart murmur Familial hypocalciuric hypercalcemia Multinodular thyroid Vitamin D deficiency HLD (hyperlipidemia) HTN (hypertension) T2DM (type 2 diabetes mellitus) Surgical History Hx of melanoma excision Hx of esophagogastroduodenoscopy Hx of colonoscopy Hx of appendectomy Hx of cholecystectomy Family History Father CVD (cardiovascular disease) Diabetes Brother CVD (cardiovascular disease) Diabetes FH: heart attack Social History Household Members: Family Housing: House Do you presently have visiting nurse or other home services: Yes (visiting nurse 2x week) Alcohol intake: never Patient Tobacco Use Status: Never used Tobacco service: No Current occupational status: unemployed Physical Exam Vital Signs: Last Vital Signs Pulse 78 04/23/25 09:28 BP 130/64 04/23/25 09:28 Pulse Ox 97 04/23/25 09:28 Oxygen Delivery Method Room Air 04/23/25 09:28 BMI result Body Mass Index 34.9 Comfortable Neck supple no JVD. Lungs entry equal no rales. Heart S1-S2 heard no gallop or rub. Abdomen soft nontender. Neuro alert awake oriented. No asterixis. Extremities no edema. Results Reviewed Nephrology Results: Hgb, (14.0-18.0) 14.6 g/dl 04/18/25 WBC, (4.8-10.8) 10.3 X10*3/uL 04/18/25 Plt Count, (160-400) 305 X10*3/uL 04/18/25 Sodium, (135-145) 140 mmol/L 04/18/25 Potassium, (3.3-5.1) 4.3 mmol/L 04/18/25 Chloride, (96-108) 102 mmol/L 04/18/25 Carbon Dioxide, (22-29) 29 mmol/L 04/18/25 BUN, (9-16) 29 mg/dL H 04/18/25 Creatinine, (0.5-1.4) 1.18 mg/dL 04/18/25 Calcium, (8.4-10.2) 10.4 mg/dL H Δ 04/18/25 Assessment & Plan Assessment & Plan (1) CKD (chronic kidney disease): Code(s): N18.9 - Chronic kidney disease, unspecified Category: Medical Plan: Due to underlying diabetic hypertensive kidney disease. No evidence of active glomerulonephritis or obstructive uropathy. Patient's serum creatinine is less than 1.0. Goal is to slow the progression of renal disease. Continue to avoid nephrotoxic agents including NSAIDs. Continue to use SGLT 2 inhibitors for cardiorenal protection Unable to use Jacquelyn inhibitors due to history of angioedema Creatinine bumped up to 1.5 Probably form hypoperfusion post operative Creatinine has improved Down to 1.0 (2) HTN (hypertension): Comment: Stable Code(s): I10 - Essential (primary) hypertension Category: Medical Plan: Blood pressure has been acceptable Encouraged to stay complaint Continue current regimen. Low-salt diet (3) T2DM (type 2 diabetes mellitus): Code(s): E11.9 - Type 2 diabetes mellitus without complications Category: Medical Qualifiers: Diabetes mellitus complication status: with hyperglycemia Diabetes mellitus correction insulin use: with termination clerk use Qualified Code(s): E11.65 - Type 2 diabetes mellitus with hyperglycemia; Z79.4 - exterminator helper (current) use of insulin Plan: Blood sugar sub optimal Recent A1C 9.2% Goal A1c less than 7% Follow with endocrinology Discussed weight (4) Hypercalcemia: Code(s): E83.52 - Hypercalcemia Category: Medical Plan: No MCGP Plan Renal cyst and anterior bladder wall thickening UA and cytology -No malignant cells Follow up PRN Low back pain Continue to lose weight ( lost 7 lbs in 2 months -november ot Feb 04) Follow up with PCP Orders: Orders Basic Metabolic Panel 4 Months E11.65 - Type 2 diabetes mellitus with hyperglycemia, I10 - Essential (primary) hypertension, Z79.4 - group home (current) use of insulin Coding Level of Care Code Est Pt Level 4 (58101) Diagnoses CKD (chronic kidney disease) N18.9 Hypertension, unspecified type I10 Type 2 diabetes mellitus with hyperglycemia, with long-term current use of insulin E11.65; Z79.4 Diabetes mellitus complication status: with hyperglycemia Diabetes mellitus termination clerk insulin use: with correction use Hypercalcemia E83.52
--- OUTSIDE RECORDS SUMMARY | 2025-04-23 10:07 | XMS_ITS | Encounter Summary ---
Author Organization [email or web address] Address [address] [facility] 7t [place] [address] Care Team Providers Care Pattern Fitter Name Role Phone Name, Aneesh RIVERS Primary Care Provider [phone] Sandra Rasheed PharmD Unavailable [phone] Reason for Visit * Reason Comments Med Refill Encounter Details Date Type Department Care Team ([facility] st Contact Info) Description 04/22/2025 Refill [facility] [address] [place] [address] Name, MD Aneesh [address] [place] [address] Social History Tobacco Use Types Packs/Day Years [...] 05/27/2025 9:30 AM EST Medication Management [facility] [address] [place] [address] Sandra Rasheed, PharmD [address] [place] [address] 05/29/2025 9:30 AM EST Office Visit [facility] [address] [place] [address] Aneesh Oliveira MD [address] [place] [address] 06/03/2025 9:30 AM EST Office Visit [facility] [address] [place] [address] Nathanael, Jayne, OD [address] [place] [address] documented as of this encounter Visit Diagnoses Not on filedocumented in this encounter Additional Health Concerns Assessment Noted Time PHQ-9 Depression Total Score: 5 03/06/20 25 11:44 AM EDT documented as of this encounter Care Teams Pattern Fitter Relationship Specialty Start Date End Date Aneesh Oliveira MD [address] [place] [address] [place] [address] PCP - General Family Medicine 02/14/18 Sandra Rasheed, Javi [address] [place] [address] Pharmacist Internal Medicine 08/24/24 documented as of this encounter
--- OUTSIDE RECORDS SUMMARY | 2025-04-23 10:07 | XMS_ITS | Encounter Summary ---
Author Organization [employer] Address [address] [facility] 7t [place] [address] Care Team Providers Care Senior Bioinformatics Scientist Name Role Phone Name, Aneesh RIVERS Primary Care Provider [phone] Sandra Rasheed PharmD Unavailable [phone] Reason for Visit * Reason Comments Med Refill Encounter Details Date Type Department Care Team ([facility] st Contact Info) Description 04/10/2025 Refill [facility] [address] [place] [address] Name, MD Aneesh [address] [place] [address] Left leg pain; Chronic low back pain, [...] Description 05/27/2025 9:30 AM EST Medication Management [facility] [address] [place] [address] Sandra Rasheed, PharmD [address] [place] [address] 05/29/2025 9:30 AM EST Office Visit [facility] [address] [place] [address] Name, MD Aneesh [address] [place] [address] 06/03/2025 9:30 AM EST Office Visit [facility] [address] [place] [address] Jayne Huffman, OD [address] [place] [address] documented as of this encounter Visit Diagnoses Diagnosis Left leg pain Pain in soft tissues of limb Chronic low back pain, unspecified back pain laterality, unspecified whether sciatica present documented in this encounter Additional Health Concerns Assessment Noted Time PHQ-9 Depression Total Score: 5 03/06/20 11:44 AM EDT documented as of this encounter Care Teams Senior Bioinformatics Scientist Relationship Specialty Start Date End Date Name, MD Aneesh [address] [place] [address] PCP - General Family Medicine 02/14/18 Sandra Rasheed PharmD [address] [place] [address] Pharmacist Internal Medicine 08/24/24 documented as of this encounter
--- OUTSIDE RECORDS SUMMARY | 2025-04-23 10:07 | XMS_ITS | Encounter Summary ---
Author Organization [email or web address] Address [address] [facility] 7t [place] [address] Care Team Providers Care Jewelry Salesperson Name Role Phone Name, Aneesh RIVERS Primary Care Provider [phone] Sandra Rasheed PharmD Unavailable [phone] Encounter Details Date Type Department Care Team (Late st Contact Info) Description 04/18/2025 Orders Only GENERIC EXTERNAL DATA DEPARTMENT Provider, [...] the past 12 months, has t he [employer], oil or water [employer] threatened to shut off services in your [...] Description 05/27/2025 9:30 AM EST Medication Management [facility] [address] [place] [address] Sandra Rasheed, PharmD [address] [place] [address] 05/29/2025 9:30 AM EST Office Visit [facility] [address] [place] [address] Name, MD Aneesh [address] [place] [address] 06/03/2025 9:30 AM EST Office Visit [facility] [address] [place] [address] Nathanael, Jayne, OD [address] [place] [address] documented as of this encounter Procedures Procedure Name Priority Date/Time Associated Diagnosis Comments CBC Routine 04/18/2025 8:11 AM EST BASIC METABOLIC PANEL Routine 04/18/2025 8:11 AM EST documented in this encounter Results * (ABNORMAL) Basic Metabolic Panel (04/18/2025 8:11 AM EST) Sodium 140 135 - 145 mmol/L [facility] Potassium 4.3 3.3 - 5.1 mmol/L [facility] Chloride 102 96 - 108 mmol/L [facility] Carbon Dioxide 29 22 - 29 mmol/L [facility] Anion Gap 13 12 - 20 [facility] Urea Nitrogen (BUN) 29(H) 9 - 16 mg/dL [facility] Creatinine, Serum 1.18 0.5 - 1.4 mg/dL [facility] Estimated Glomerular Filt Rate >60 [facility] Comment:Chronic Kidney Disea se: Estimated GFR < 60 mL/min/[id number] Kidney Disease: Estimated GFR < 15 mL/min/1.73m2 Glucose 256(H) 60 - 115 mg/dL [facility] Calcium 10.4(H) 8.4 - 10.2 mg/dL [facility] 04/18/2025 8:11 AM EST 04/18/2025 8:11 AM EST us Generic External Data Provider LAB BLOOD ORDERAB LES Final Result [facility] [address] [place] [address] [phone] * CBC (04/18/2025 8:11 AM EST) White Blood Count 10.3 4.8 - 10.8 X10*3/uL [facility] Red Blood Count 5.04 4.60 - 5.80 X10*6/uL [facility] Hemoglobin 14.6 14.0 - 18.0 g/dl [facility] Hematocrit 45.5 42.0 - 52.0 % [facility] Mean Corpuscular Volume 90.3 80.0 - 98.0 fL [facility] Mean Corpuscular Hemoglobin 29.0 27.0 - 33.0 pg [facility] Mean Corpuscular HGB Conc 32.1 31.0 - 36.0 g/dl [facility] Red Cell Distribution Width 13.2 11.0 - 16.0 % [facility] Platelet Count 305 160 - 400 X10*3/uL [facility] Mean Platelet Volume 10.3 9.4 - 12.4 fL [facility] NRBC Pct Auto 0.0 0.0 - 0.2 /100WBC [facility] NRBC Abs Auto 0.000 0.0 - 0.012 X10*3/uL [facility] 04/18/2025 8:11 AM EST 04/18/2025 8:11 AM EST us Generic External Data Provider LAB BLOOD ORDERAB LES Final Result [facility] [address] [place] [address] [phone] documented in this encounter Visit Diagnoses Not on filedocumented in this encounter Additional Health Concerns Assessment Noted Time PHQ-9 Depression Total Score: 5 03/06/20 25 11:44 AM EDT documented as of this encounter Care Teams Jewelry Salesperson Relationship Specialty Start Date End Date Name, MD Aneesh [address] [place] [address] PCP - General Family Medicine 02/14/18 Sandra Rasheed PharmD [address] [place] [address] Pharmacist Internal Medicine 08/24/24 documented as of this encounter
--- OUTSIDE RECORDS SUMMARY | 2025-04-23 10:07 | XMS_ITS | Encounter Summary ---
Author Organization [employer] Address [address] [facility] 7t [place] [address] Care Team Providers Care Wax Pourer Name Role Phone Name, Aneesh RIVERS Primary Care Provider [phone] Sandra Rasheed PharmD Unavailable [phone] Reason for Visit * Reason Comments Med Refill Encounter Details Date Type Department Care Team ([facility] st Contact Info) Description 01/12/2024 Refill [facility] [address] [place], [place] [phone] Name, MD Aneesh [address] [place] [address] Chronic low back pain, unspecified back pain [...] Description 05/27/2025 9:30 AM EST Medication Management [facility] [address] [place] [address] Sandra Rasheed, PharmD [address] [place] [address] 05/29/2025 9:30 AM EST Office Visit [facility] [address] [place] [address] Aneesh Oliveira MD [address] [place] [address] 06/03/2025 9:30 AM EST Office Visit [facility] [address] [place] [address] Nathanael, Jayne, OD [address] [place] [address] documented as of this encounter Visit Diagnoses Diagnosis Chronic low back pain, unspecified back pain laterality, unspecified whether sciatica present documented in this encounter Additional Health Concerns Assessment Noted Time PHQ-9 Depression Total Score: 4 08/23/19 24 9:44 AM EDT documented as of this encounter Care Teams Wax Pourer Relationship Specialty Start Date End Date NameAneesh MD [address] [place] [address] PCP - General Family Medicine 02/14/18 Sandra Rasheed, Javi [address] [place] [address] Pharmacist Internal Medicine 08/24/24 documented as of this encounter
--- OUTSIDE RECORDS SUMMARY | 2025-04-23 10:07 | XMS_ITS | Encounter Summary ---
Author Organization [employer] Address [address] [facility] 7t [place] [address] Care Team Providers Care Matzo Forming Machine Operator Name Role Phone Name, Aneesh RIVERS Primary Care Provider [phone] Sandra Rasheed PharmD Unavailable [phone] Reason for Visit * Reason Comments Med Refill Encounter Details Date Type Department Care Team ([facility] st Contact Info) Description 12/20/2024 Refill [facility] [address] [place] [address] Name, MD Aneesh [address] [place] [address] Left leg pain; Chronic low back pain, [...] 9:30 AM EST Medication Management [facility] [address] [place] [address] Sandra Rasheed, PharmD [address] [place] [address] 05/29/2025 9:30 AM EST Office Visit [facility] [address] [place] [address] Name, MD Aneesh [address] [place] [address] 06/03/2025 9:30 AM EST Office Visit [facility] [address] [place] [address] Nathanael, Jayne, OD [address] [place] [address] documented as of this encounter Visit Diagnoses Diagnosis Left leg pain Pain in soft tissues of limb Chronic low back pain, unspecified back pain laterality, unspecified whether sciatica present documented in this encounter Additional Health Concerns Assessment Noted Time PHQ-9 Depression Total Score: 4 08/23/19 24 9:44 AM EDT documented as of this encounter Care Teams Matzo Forming Machine Operator Relationship Specialty Start Date End Date Name, MD Aneesh [address] [place] [address] PCP - General Family Medicine 02/14/18 Sandra Rasheed PharmD [address] [place] [address] Pharmacist Internal Medicine 08/24/24 documented as of this encounter
--- OUTSIDE RECORDS SUMMARY | 2025-04-23 10:07 | XMS_ITS | Encounter Summary ---
Author Organization [employer] Address [address] [facility] [address] [place] [address] Care Team Providers Care Leather Polisher Name Role Phone Name, Aneesh RIVERS Primary Care Provider [phone] Sandra Rasheed PharmD Unavailable [phone] Reason for Visit * Reason Onset Date Comments Appointment Request 07/17/2024 Encounter Details Date Type Department Care Team ([facility] st Contact Info) Description 07/17/2024 Telephone [facility] [address] [place] [address] Name, MD Aneesh [address] [place] [address] Appointment Request Social History Tobacco Use Types [...] r/s apt for 07/17/24. Contact pt at [phone] documented in this encounter Plan of Treatment Upcoming Encounters Date Type Department Care Team (Late st Contact Info) Description 05/27/2025 9:30 AM EST Medication Management [facility] [address] [place] [id number] Sandra Rasheed, PharmD [address] [place] [address] 05/29/2025 9:30 AM EST Office Visit [facility] [address] [place] [address] Name, MD Aneesh [address] [place] [address] 06/03/2025 9:30 AM EST Office Visit [facility] OPTOMETRY [address] [place] [id number] Jayne Huffman, OD [address] [place] [address] documented as of this encounter Visit Diagnoses Not on filedocumented in this encounter Additional Health Concerns Assessment Noted Time PHQ-9 Depression Total Score: 4 08/23/19 24 9:44 AM EDT documented as of this encounter Care Teams Leather Polisher Relationship Specialty Start Date End Date Name, MD Aneesh [address] [place] [address] PCP - General Family Medicine 02/14/18 Sandra Rasheed, Javi [address] [place] [address] Pharmacist Internal Medicine 08/24/24 documented as of this encounter
--- OUTSIDE RECORDS SUMMARY | 2025-04-23 10:07 | XMS_ITS | Encounter Summary ---
Author Organization [employer] Address [address] [facility] [address] [place] [address] Care Team Providers Care Cad Administrator Name Role Phone Name, Aneesh RIVERS Primary Care Provider [phone] Sandra Rasheed PharmD Unavailable [phone] Reason for Visit * Reason Onset Date Comments FYI 08/23/2023 Encounter Details Date Type Department Care Team ([facility] st Contact Info) Description 08/23/2023 Telephone [facility] [address] [place] [address] Name, MD Aneesh [address] [place] [address] FY Social History Tobacco Use Types Packs/Day [...] 3:03 PM EDT Tc from Leidy with [facility] stating pt no longer wants to continue care with them. Leidy stated pt no showed 3 appts in a row and when asked about it pt said it was due to to transportation. Pt claims they are irresponsible and that they don't communicate. Pt stated he will continue care with PCP. If any questions please contact Leidy at [phone]. documented in this encounter Plan of Treatment Upcoming Encounters Date Type Department Care Team (Late st Contact Info) Description 05/27/2025 9:30 AM EST Medication Management [facility] [address] [place] [address] Sandra Rasheed, PharmD [address] [place] [address] 05/29/2025 9:30 AM EST Office Visit [facility] [address] [place] [address] Name, MD Aneesh [address] [place] [address] 06/03/2025 9:30 AM EST Office Visit [facility] OPTOMET[facility] [address] [place] [address] Jayne Huffman, BRYANT [address] [place] [address] documented as of this encounter Visit Diagnoses Not on filedocumented in this encounter Additional Health Concerns Assessment Noted Time PHQ-9 Depression Total Score: 4 08/23/19 24 9:44 AM EDT documented as of this encounter Care Teams Cad Administrator Relationship Specialty Start Date End Date Name, MD Aneesh [address] [place] [address] PCP - General Family Medicine 02/14/18 Sandra Rasheed PharmD [address] [place] [address] Pharmacist Internal Medicine 08/24/24 documented as of this encounter
--- OUTSIDE RECORDS SUMMARY | 2025-04-23 10:08 | XMS_ITS | Encounter Summary ---
Author Organization [employer] Address [address] [facility] [address] [place] [address] Care Team Providers Care Group Fitness Instructor Name Role Phone Name, Aneesh RIVERS Primary Care Provider [phone] Sandra Rasheed PharmD Unavailable [phone] Reason for Visit * Reason Comments Med Refill Encounter Details Date Type Department Care Team ([facility] st Contact Info) Description 06/25/2024 Refill [facility] [address] [place] [address] Name, MD Aneesh [address] [place] [address] Hypertension, unspecified type; Prostatism; Type 2 diabetes mellitus with hyperglycemia (CMS/HCC); senior living (current) use of insulin ([facility]) Social History [...] 9:30 AM EST Medication Management [facility] [address] [place] [address] Sandra Rasheed, PharmD [address] [place] [address] 05/29/2025 9:30 AM EST Office Visit [facility] [address] [place] [id number] Name, MD Aneesh [address] [place] [address] 06/03/2025 9:30 AM EST Office Visit [facility] [address] [place] [phone] Jayne Huffman, OD [address] [place] [address] documented as of this encounter Visit Diagnoses Diagnosis Hypertension, unspecified type Prostatism Unspecified hyperplasia of prostate without urinary obstruction and other lower urinary tract symptoms (LUTS) Type 2 diabetes mellitus with hyperglycemia (HCC) 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
--- OUTSIDE RECORDS SUMMARY | 2025-04-23 10:08 | XMS_ITS | Clinical Summary ---
Author Organization [employer] Address [address] [facility] [address] [place] [address] Care Team Providers Care Office Machines Sales Representative Name Role Phone Name, Aneesh RIVERS Primary Care Provider [phone] Sandra Rasheed PharmD Unavailable [phone] Allergies Active Allergy Reactions Criticality Noted [...] mg) by mouth before breakfast. 30 tablet Active Alcohol Swabs (Easy Touch Alcohol Prep [...] 2 times daily. Active insulin pen needle (UltiGuard SafePack Pen Needle) 32G x 4 mm miscIndications: Type 2 diabetes mellitus with hyperglycemia ([facility]) Use to inject insulin 4 times daily 200 each Active glucose blood (Proton Digital Systemsuch Ultra) test stripIndications :Type 2 diabetes mellitus with hyperglycemia ([facility]) TEST BLOOD SUGAR THREE TIMES DAILY 100 strip Active metFORMIN (Glucophage) 1000 MG tabletIndication s:Type 2 diabetes mellitus with other specified complication, without long-term current use of insulin ([facility]) TAKE 1 TABLET BY MOUTH TWICE DAILY [...] hyperglycemia, with long-term current use of insulin ([facility]) Inject 0.75 mL (2 mg) under the skin 1 (one) time per week. 3 mL 025 Active rosuvastatin (Crestor) 20 MG tabletIndication s:Type 2 diabetes mellitus with hyperglycemia, with long-term current use of insulin ([facility]) Take 1 tablet (20 mg) by mouth Once per day. 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) ([facility]) INJECT 80 UNITS SUBCUTANEOUSLY EVERY DAY AT [...] complication, without long-term current use of insulin ([facility]) Glucose control solution provides an easy way [...] Encounters Date Type Department Care Team Description 04/22/2025 Refill [facility] MEDICINE [address] [place] [address] Aneesh Oliveira MD 04/18/2025 Orders Only GENERIC EXTERNAL DATA DEPARTMENT Provider, Generic External Data 04/16/2025 Refill [facility] MEDICINE [address] [place] [address] Aneesh Oliveira MD Left leg pain; Chronic low back pain, unspecified back pain laterality, unspecified whether sciatica present 04/10/2025 Refill C MEDICINE [address] [place] [address] Aneesh Oliveira MD Left leg pain; Chronic low back pain, unspecified back pain laterality, unspecified whether sciatica present 04/10/2025 Refill C MEDICINE [address] [place] [address] Sandra Rasheed, PharmD 04/04/2025 Telephone C MEDICINE [address] [place] [address] Aneesh Oliveira MD 04/04/2025 Telephone C MEDICINE [address] [place] [address] Aneesh Oliveira MD Transition Of Care (Tcm) 04/03/2025 Orders Only [facility] External Provider, [facility] 04/01/2025 Refill [facility] MEDICINE [address] [place] [address] Aneesh Oliveira MD Type 2 diabetes mellitus with other specified complication, without long-term current use of insulin (HCC) (Primary Dx) 03/06/2025 11:00 AM EDT Office Visit [facility] MEDICINE [address] [place] [address] Aneesh Oliveira MD Type 2 diabetes mellitus with other specified complication, without long-term current use of insulin (CMS/HCC) (Primary Dx); Stage 3a chronic kidney disease (CMS/HCC); Hypertension, unspecified type; Chronic low back pain, unspecified back pain laterality, unspecified whether sciatica present; Generalized osteoarthritis; Encounter for immunization 03/06/2025 Travel 02/18/2025 Telephone [facility] MED [facility] P[facility] [address] [place], [place] [phone] Aneesh Oliveira MD Chart Prep 02/04/2025 Travel 02/01/2025 Refill [facility] MEDICINE [address] [place] [address] Sandra Rasheed PharmD Type 2 diabetes mellitus with hyperglycemia (CMS/HCC); alf (current) use of insulin (CMS/HCC) 01/24/2025 Refill [facility] MEDICINE [address] [place] [address] Aneesh Oliveira MD Chronic low back pain, unspecified back pain laterality, unspecified whether sciatica present 01/22/2025 Refill [facility] MEDICINE [address] [place] [address] Sandra Rasheed PharmD Type 2 diabetes mellitus with hyperglycemia (CMS/HCC); alf (current) use of insulin (CMS/HCC) from Last 3 Months Immunizations Immunization Administration [...] Description 05/27/2025 9:30 AM EST Medication Management [facility] MEDICINE [address] [place] [address] Sandra Rasheed, PharmD [address] [place] [address] 05/29/2025 9:30 AM EST Office Visit [facility] MEDICINE [address] [place] [address] Name, MD Aneesh [address] [place] [address] 06/03/2025 9:30 AM EST Office Visit [facility] OPTOMETRY [address] [place] [address] Jayne uHffman, OD [address] [place] [address] Health Maintenance Due Date Last Done Comments [...] Screening 02/10/2026 Depression Screening 03/06/2026 03/06/2025, 03/06/20 SDOH Screening 03/06/2026 03/06/2025 Tobacco Screening 03/06/2026 [...] Associated Diagnosis Comments BASIC METABOLIC PANEL Routine 04/18/2025 8:11 AM EST CBC Routine 04/18/2025 8:11 AM EST US ABDOMEN COMPLETE Routine 04/15/2025 2 :54 [...] with long-term current use of insulin (CMS/HCC) LIPID PANEL, STANDARD Routine 11/17/2024 10:29 AM EDT HM COLONOSCOPY Routine 02/10/2023 PANORAMIC RADIOGRAPHIC IMAGE Routine 08/26/2021 12:00 AM EDT ZZZ HISTORICAL HEPATITIS C AB W/REFL TO HCV RNA, QN, PCR Routine 11/25/2020 10:49 AM EDT INTRAORAL - COMPLETE SERIES OF RADIOGRAPHIC IMAGES Routine 04/03/2009 12:00 AM EDT from Last 3 Months or Most Recently Relevant to Health Maintenance Results * CBC (04/18/2025 8:11 AM EST) White Blood Count 10.3 4.8 - 10.8 X10*3/uL [facility] Red Blood Count 5.04 4.60 - 5.80 X10*6/uL [facility] Hemoglobin 14.6 14.0 - 18.0 g/dl [facility] Hematocrit 45.5 42.0 - 52.0 % [facility] Mean Corpuscular Volume 90.3 80.0 - 98.0 fL [facility] Mean Corpuscular Hemoglobin 29.0 27.0 - 33.0 pg [facility] Mean Corpuscular HGB Conc 32.1 31.0 - 36.0 g/dl [facility] Red Cell Distribution Width 13.2 11.0 - 16.0 % [facility] Platelet Count 305 160 - 400 X10*3/uL [facility] Mean Platelet Volume 10.3 9.4 - 12.4 fL [facility] NRBC Pct Auto 0.0 0.0 - 0.2 /100WBC [facility] NRBC Abs Auto 0.000 0.0 - 0.012 X10*3/uL [facility] 04/18/2025 8:11 AM EST 04/18/2025 8:11 AM EST us Generic External Data Provider LAB BLOOD ORDERAB LES Final Result Performing Organization Address City/[facility]/ZIP Co de Phone Number [facility] [address] [place] [phone] * (ABNORMAL) Basic Metabolic Panel (04/18/2025 8:11 AM EST) Sodium 140 135 - 145 mmol/L [facility] Potassium 4.3 3.3 - 5.1 mmol/L [facility] Chloride 102 96 - 108 mmol/L [facility] Carbon Dioxide 29 22 - 29 mmol/L [facility] Anion Gap 13 12 - 20 [facility] Urea Nitrogen (BUN) 29(H) 9 - 16 mg/dL [facility] Creatinine, Serum 1.18 0.5 - 1.4 mg/dL [facility] Estimated Glomerular Filt Rate >60 [facility] Comment:Chronic Kidney Disea se: Estimated GFR < 60 mL/min/1.88z3Eiwfrp Kidney Disease: Estimated GFR < 15 mL/min/1.73m2 Glucose 256(H) 60 - 115 mg/dL [facility] Calcium 10.4(H) 8.4 - 10.2 mg/dL [facility] 04/18/2025 8:11 AM EST 04/18/2025 8:11 AM EST us Generic External Data Provider LAB BLOOD ORDERAB LES Final Result Performing Organization Address City/[facility]/ZIP Co de Phone Number [facility] [address] [place] [phone] * US Abdomen Complete (04/15/2025 2:54 PM EST) Anatomical Region Laterality Modality Abdomen Ultrasound 04/15/2025 2:54 PM EST Narrative 04/15/2025 2:56 PM EST [place] [address] Ultrasound Report Signed Patient: Josue Dawson MR#: [id number] : 1950 Acct:[id number] Age/Sex: 74 / M ADM Date: 04/15/25 Loc: HO.US Attending Dr: Toma Hernández MD Ordering Physician: Toma Hernández MD Date of Service: 04/15/25 Procedure(s): US abdomen complete Accession Number(s): [id number] cc: Roxanne,Aneesh RIVERS; Toma Hernández MD Reason for Exam: [...] 04/15/25 1455 DD/ 1454 TD/TT: 04/15/25 1454 Technical Project Lead: Procedure Note Donotuseinterpreter, Image - 04/15/[address] [address] Ultrasound Report Signed Patient: Sylvia Dawson#: [id number] : 1950cct:[id number] Age/Sex: 74 / MADM Date: 04/15/25 Loc: HO.US Attending Dr: Toma Hernández MD Ordering Physician: Toma Hernández MD Date of Service: 04/15/25 Procedure(s): US abdomen complete Accession Number(s): [id number] cc: Name,Aneesh RIVERS; Toma Hernández MD Reason [...] Worley MD in OV> 04/15/25 1455 DD/ 53 TD/TT: 04/15/251453 Technical Project Lead: [facility] External Provider IMG US PROCEDURES Final Result * [facility] US Lower Extremity Arterial Duplex Bilateral With Baylee (04/08/2025 9:50 AM EDT) 04/08/2025 9:50 AM EDT Narrative [facility] IMAGING - 04/08/2025 11:32 AM EDT [address] [address] Ultrasound Report Signed Patient: Josue Dawson MR#: [id number] : 1950 Acct:[id number] Age/Sex: 74 / M ADM Date: 04/08/25 Loc: .US Attending Dr: Rodney Smith MD Ordering Physician: Rodney Smith MD Date of Service: 04/08/25 Procedure(s): US arterial duplex BI w/ BAYLEE Accession Number(s): [id number] cc: Rodney Smith MD; Name,Aneesh RIVERS Reason [...] 04/08/25 1129 DD/ 0950 TD/TT: 04/08/25 1023 Technical Project Lead: Procedure Note Donotuseinterpreter, Image - 04/08/[address] [address] Ultrasound Report Signed Patient: Josue Dawson#: [id number] : 1950cct:[id number] Age/Sex: 74 / MADM Date: 04/08/25 Loc: . Attending Dr: Rodney Smith MD Ordering Physician: Rodney Smith MD Date of Service: 04/08/25 Procedure(s): US arterial duplex BI w/ BAYLEE Accession Number(s): [id number] cc: Rodney Smith MD; Name,Aneesh RIVERS Reason [...] 04/08/25 1129 DD/ 0950 TD/TT: 04/08/25 1023 Technical Project Lead: us [facility] External Provider CV VASC ULAR PROCEDURES Edited Result - Final [facility] [address] [place] [address] [phone] * XR KUB and Upright 2 Views (04/03/2025 11:08 PM EDT) Anatomical Region Laterality Modality Radiographic Trang ging 04/03/2025 11:0 8 PM EDT Narrative 04/03/2025 11:10 PM EDT [place] [address] XRay Report Signed Patient: Josue Dawson MR#: [id number] : 1950 Acct:[id number] Age/Sex: 74 / M ADM Date: 04/03/25 Loc: HO.ED Attending Dr: Ordering Physician: Cherelle Peralta Date of Service: 04/03/25 Procedure(s): XR KUB Accession Number(s): [id number] cc: Cherelle Peralta; Name,Aneesh RIVERS Reason for [...] in OV> 04/03/252308 DD/ 07 TD/TT: 04/03/252307 Technical Project Lead: Procedure Note Donotuseinterpreter, Image - 04/03/[address] [address] XRay Report Signed Patient: Josue DawsonMR#: [id number] : 1950cct:[id number] Age/Sex: 74 / MADM Date: 04/03/25 Loc: HO.ED Attending Dr: Ordering Physician: Cherelle Peralta Date of Service: 04/03/25 Procedure(s): XR KUB Accession Number(s): [id number] cc: Cherelle Peralta; Name,Aneesh RIVERS Reason for [...] in OV> 04/03/252308 DD/ 07 TD/TT: 04/03/252307 Technical Project Lead: [facility] External Provider IMG XR PROCEDURES Edited Result - Final * XR Chest 2 Views (04/03/2025 9:00 AM EDT) Anatomical Region Laterality Modality Chest Radiographic Trang ging 04/03/2025 9:00 AM EDT Narrative 04/03/2025 9:10 AM EDT [place] [address] XRay Report Signed Patient: Josue Dawson MR#: [id number] : 1950 Acct:[id number] Age/Sex: 74 / M ADM Date: 04/03/25 Loc: HO.ED Attending Dr: Ordering Physician: Generic ED Physician Date of Service: 04/03/25 Procedure(s): XR chest 2V Accession Number(s): [id number] cc: Generic ED Physician; Name,Aneesh RIVERS Reason [...] Willoughby MD in OV> 04/03/25 0908 DD/ 9 TD/TT: 04/03/25904 Technical Project Lead: Procedure Note Donotuseinterpreter, Image - 04/03/2025 [place] [address] XRay Report Signed Patient: Josue Dawson#: [id number] : 1950cct:[id number] Age/Sex: 74 / MADM Date: 04/03/25 Loc: .ED Attending Dr: Ordering Physician: Generic ED Physician Date of Service: 04/03/25 Procedure(s): XR chest 2V Accession Number(s): [id number] cc: Generic ED Physician; Name,Aneesh RIVERS Reason [...] Willoughby MD in OV> 04/03/25 0908 DD/ 9 TD/TT: 04/03/25904 Technical Project Lead: [facility] External Provider IMG XR PROCEDURES Final Result * Influenza A B2 ID NOW ([place]y) (04/03/2025 8:54 AM EDT) IDNOW SERIAL# [id number] [facility] Influenza A Negative Negative [facility] Influenza B2 Negative Negative [facility] Influenza A B2 Note See Note [facility] Comment:The Causey ID NOW [...] and co- infection withRespiratory Syncytial Virus. 04/03/2025 8:5 4 AM EDT 04/03/2025 8:59 AM EDT Generic External Data Provider LAB MICROBIOLOGY - GENERAL ORDERABLES Final Result Performing Organization Address City/State/[facility] Co de Phone Number [facility] [address] [place] [phone] * COVID-19 ID NOW (CAUSEY) (04/03/2025 8:54 AM EDT) IDNOW SERIAL# [id number] [facility] COVID-19 TEST Negative Negative [facility] COVID-19 NOTE See Note [facility] Comment: Results are for the identification of SARS-CoV2 RNA. TheSARS-CoV2 RNA is generally detectable in respiratory samplesduring the acute phase of infection. Positive results areindicative of the presence of SARS-CoV-2 RNA; clinicalcorrelation with patient history and other diagnosticinformation is necessary to determine patient infectionstatus. Positive results do not rule out bacterial infectionor co- infection with other viruses.Testing facilities within the [facility] and [facility] are required to report all [...] use by authorized laboratories.Testing performed on the [employer] NOW utilizing NAAT. 04/03/2025 8:54 AM EDT 04/03/2025 8:59 AM EDT us Generic External Data Provider LAB MOLECULAR MAME GNOSTICS ORDERABLES Final Result [facility] [address] [place] [phone] * (ABNORMAL) CBC auto differential (04/03/2025 8:54 AM EDT) White Blood Count 9.7 4.8 - 10.8 X10*3/uL [facility] Red Blood Count 5.01 4.60 - 5.80 X10*6/uL [facility] Hemoglobin 14.9 14.0 - 18.0 g/dl [facility] Hematocrit 44.0 42.0 - 52.0 % [facility] Mean Corpuscular Volume 87.8 80.0 - 98.0 fL [facility] Mean Corpuscular Hemoglobin 29.7 27.0 - 33.0 pg [facility] Mean Corpuscular HGB Conc 33.9 31.0 - 36.0 g/dl [facility] Red Cell Distribution Width 13.3 11.0 - 16.0 % [facility] Platelet Count 312 160 - 400 X10*3/uL [facility] Mean Platelet Volume 10.1 9.4 - 12.4 fL [facility] Neutrophils Percent Auto 64.8 45 - 73 % [facility] Imm Gran Pct Auto 0.9(H) 0.0 - 0.4 % [facility] Lymphocytes Percent Auto 25.2 20 - 40 % [facility] Monocytes Percent Auto 6.6 2 - 11 % [facility] Eosinophils Percent Auto 1.9 0 - 4 % [facility] Basophils Percent Auto 0.6 0 - 2 % [facility] NRBC Pct Auto 0.0 0.0 - 0.2 /100WBC [facility] Neutrophils Absolute Auto 6.3 2.0 - 8.3 x10*3/uL [facility] Imm Gran Abs Auto 0.09(H) 0.00 - 0.03 X10*3/uL [facility] Lymphocytes Absolute Auto 2.4 1.2 - 4.9 X10*3/uL [facility] Monocytes Absolute Auto 0.6 0.1 - 1.2 X10*3/uL [facility] Eosinophils Absolute Auto 0.2 0.0 - 0.4 X10*3/uL [facility] Basophils Absolute Auto 0.1 0.0 - 0.2 X10*3/uL [facility] NRBC Abs Auto 0.000 0.0 - 0.012 X10*3/uL [facility] 04/03/2025 8:54 AM EDT 04/03/2025 8:59 AM EDT us Generic External Data Provider LAB BLOOD ORDERAB LES Final Result [facility] [address], [place] [phone] * (ABNORMAL) Comprehensive Metabolic Panel (04/03/2025 8:54 AM EDT) Sodium 137 135 - 145 mmol/L [facility] Potassium 4.3 3.3 - 5.1 mmol/L [facility] Comment:Slight Hemolysis.Int erpret result with caution. Chloride 103 96 - 108 mmol/L [facility] Carbon Dioxide 27 22 - 29 mmol/L [facility] Anion Gap 11(L) 12 - 20 [facility] Urea Nitrogen (BUN) 21(H) 9 - 16 mg/dL [facility] Creatinine, Serum 1.14 0.5 - 1.4 mg/dL [facility] Creatinine Clr Calc Pharmacy 62.4 [facility] Comment:eGFR (calculated fro m the MDRD study equation) and eCrCl(calculated from the Cockcroft-Gault equation) are based ondifferent parameters and may not yield comparable results.If eCrCl result is absurd, please check patient'sheight/weight. Estimated Glomerular Filt Rate >60 [facility] Comment:Chronic Kidney Disea se: Estimated GFR < 60 mL/min/1.98f2Freoti Kidney Disease: Estimated GFR < 15 mL/min/1.73m2 Glucose 253(H) 60 - 115 mg/dL [facility] Calcium 9.8 8.4 - 10.2 mg/dL [facility] Bilirubin, Total 0.4 0.0 - 1.0 mg/dL [facility] Aspartate Amino Transferase 55(H) 5 - 37 U/L [facility] Comment:Slight Hemolysis.Int erpret result with caution. Alanine Aminotransferase 74(H) 0 - 40 U/L [facility] Total Protein 7.5 6.5 - 8.0 g/dL [facility] Albumin Level 3.9 3.5 - 5.0 g/dL [facility] Alkaline Phosphatase 63 39 - 117 U/L [facility] 04/03/2025 8:54 AM EDT 04/03/2025 8:59 AM EDT us Generic External Data Provider LAB BLOOD ORDERAB LES Final Result [facility] [address] [place] [phone] * (ABNORMAL) POCT Glucose (03/06/2025 11:00 AM EDT) Glucose Blood, POC 320(A) 60 - 200 mg/dL QC Media Lot # [id number] Lot# Expiration Date Blood Capillary blood specimen / Unknown 03/06/2025 11:00 AM EDT Aneesh Name POINT OF CARE TEST ENTER/EDIT OR DERABLES Final Result * (ABNORMAL) POCT HGB A1C (02/04/2025 12:26 PM EDT) Pathologist [facility] Hemoglobin A1C 8.7(A) 4.0 - 5.7 % Blood 02/04/2025 12:2 6 PM EDT Aneesh Name POINT OF CARE TEST ENTER/EDIT OR DERABLES Final Result * (ABNORMAL) Lipid Panel, Standard (11/17/2024 10:29 AM EDT) Pathologist [facility] Triglycerides 129 <150 mg/dL [facility] Comment:Desirable Triglyceri de: less than 150 mg/dLBorderline High Triglyceride 150-199 mg/dLHigh Triglyceride: 200-499 mg/dLVery High Triglyceride: greater than or equal to 5OO mg/dL Cholesterol 179 <200 mg/dL [facility] Comment:Desirable Cholestero l: less than 200 mg/dLBorderline High Cholesterol: 200-239 mg/dLHigh Cholesterol: greater than 239 mg/dL LDL Cholesterol Calculated 115(H) <100 mg/dL [facility] Comment:Desirable LDL: less than 100 mg/dLNear Optimal/Above Optimal LDL: 110- 129 mg/dLBorderline High LDL: 130-159 mg/dLHigh LDL: 160-189 mg/dLVery High LDL: greater than or equal to 190 mg/dL HDL Cholesterol 39(L) >40 mg/dL [facility] Comment:Desirable HDL: great er than 40 mg/dL Note: This HDL assay may give artificially low results in patients with liver disease. 11/17/2024 10:2 9 AM EDT 11/17/2024 10:29 AM EDT Generic External Data Provider LAB BLOOD ORDERAB LES Final Result [facility] [address] [place] [phone] * (ABNORMAL) Colonoscopy (02/10/2023) Colonoscopy Abnormal(A [...] a test for HCV RNA (test code 76169) is suggested. For additional information please refer to http://education.Mobicow/faq/EVJ27r9 (This link is being provided for informational/ educational purposes only.) 11/25/2020 10:4 9 AM EDT Aneesh Oliveira MD HISTORICAL/NON ORDERABLE LABS Fi nal Result Performing Organization Address City/[facility]/ZIP Co de Phone Number [facility] [address] from Last 3 Months or Most Recently Relevant to Health Maintenance Insurance [facility] DUAL COMPLETE DENTAL - [facility] Care Teams Office Machines Sales Representative Relationship Specialty Start Date End Date Name, MD Aneesh [address] [place] [address] PCP - General Family Medicine 9/4/18 Sandra Rasheed, PharmD [address] [place] [phone] Pharmacist Internal Medicine 08/24/24
--- OUTSIDE RECORDS SUMMARY | 2025-04-23 10:08 | XMS_ITS | Encounter Summary ---
Author Organization [employer] Address [address] [facility] [address] [place] [address] Care Team Providers Care Condenser Setter Name Role Phone Name, Aneesh RIVERS Primary Care Provider [phone] Sandra Rasheed PharmD Unavailable [phone] Reason for Visit * Reason Comments Med Refill Encounter Details Date Type Department Care Team ([facility] st Contact Info) Description 08/19/2023 Refill [facility] MEDICINE [address] [place] [address] Name, MD Aneesh [address] [place] [address] Social History Tobacco Use Types Packs/Day Years [...] Description 05/27/2025 9:30 AM EST Medication Management [facility] MED[facility] [address] [place] [phone] Sandra Rasheed PharmD [address] [place] [address] 05/29/2025 9:30 AM EST Office Visit [facility] MEDICINE [address] [place] [phone] Name, MD Aneesh [address] [place] [phone] 06/03/2025 9:30 AM EST Office Visit [facility] OPTOMETRY [address] [place] [phone] Nathanael, Jayne, OD [address] [place] [address] documented as of this encounter Visit Diagnoses Not on filedocumented in this encounter Care Teams Condenser Setter Relationship Specialty Start Date End Date Name, MD Aneesh [address] [place] [phone] PCP - General Family Medicine 02/14/18 Sandra Rasheed, PharmD [address] [place] [phone] Pharmacist Internal Medicine 08/24/24 documented as of this encounter
--- OUTSIDE RECORDS SUMMARY | 2025-04-23 10:08 | XMS_ITS | Data Portability ---
Author Organization [place] [facility], Allergy Address [address] [facility] [address] [place] [id number] Care Team Providers Care Security Operations Center Analyst Name Role Phone NAME, LAURENT Primary Care [...] vocal quality. I recommended he see a windows application packager, voice specalist, to evaluate him and see if he would be a good candidate for a more permanent medialization procedure. Patient is willing and interested to travel to [place] to hear options. - Referral to [facility] - Dr. Stafford or Dr. Machuca for discussion [email or web address] Not available 05/04/2024 08:27:45 Plan of Treatment Reminders Order Date Submit Date Provider Last Modified By Organization Details Last Modified Time Details Appointments None recorded. Lab None recorded. Referral otolaryngol ogist referral - Attn: Birgit. Dr. Machuca or Dr. Stafford - bilateral vocal cord paralysis. 2023 024 2 [facility], [address] [facility], [facility], [place], [address], 4 10:41:11 Procedures None recorded. Surgeries None recorded. Imaging None recorded. Medication Orders None recorded. Patient TargetsNo targets recorded. Patient InstructionsNo instructions recorded. 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 Dr. Machuca or Dr. Stafford - bilateral vocal cord paralysis. 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 Procedures Surgical History Date Name Laterality Status Provider Name and Address Organization Details Recorded Time 05/03/20 24 Fiberoptic Laryngoscopy (Comprehensive) completed RYAN MAYA MD [address] [place] [address], [place], [address], [facility] [...] Updated DateTime 05/03/2024 167.64 cm 34.7 kg/m2 07373.36 g Dimagiovanny Ramírez [place] [facility] 05/03/2024 13:28:04 Social History None recorded. Functional Status None recorded. Mental Status None recorded. Family History Nothing Reported. Medical History No medical history recorded. Past Encounters Encounter ID Performer Location Encounter Start Date Encounter Closed Date Diagnosis/Indication Diagnosis SNOMED-CT Code Diagnosis ICD10 Code Diagnosis IMO Codes Diagnosis Note [id number] RYAN MAYA MD [facility] [address] [phone] 05/03/2024 13:04:26 05/03/2024 16:54:58 Paralysis of larynx 27398094 J38.02 Dysphonia 23376903 R49.9 Health Concerns Section Related Observation LastModified by Organization Detai ls LastModified Time None Recorded Concern Status LastModified by Organization Details LastModified Time None Recorded Advance Directives Directive None Recorded Payers Insurance Date Sequence Insurance Name Policy Number Policy Hood Covered Member ID Hood Member ID Guarantor Name 05/03/2024 1 [facility] (MEDICARE REPLACEMENT/ ADVANTAGE - HMO) Josue Mace [id number] Josue Mace 05/02/2024 2 [place] [facility] Josue Mace [id number] Josue Mace Notes Date Note Type Note Provider Name and Address Organization Details Recorded Time 05/03/2024 text/html ROS as noted in the HPI 73yo gentleman who presents today for evaluation of bilateral vocal cord paralysis and dysphonia. He has had difficulty with his voice for about 5 years. He underwent a traumatic intubation at [facility] in 2018 in the setting of an anaphylactic event. Following, this resulted in dysphonia and dyspnea with exertion. He was seen by otolaryngology in [place] - Dr. Jhon Coppola. At that time, he was told [...] aspirin 81 & clopidogrel. RYAN MAYA MD [address] [place] [address], [place], [address], [place] [facility] 05/04/2024 20:31:01
--- OUTSIDE RECORDS SUMMARY | 2025-04-23 10:08 | XMS_ITS | Encounter Summary ---
Author Organization [employer] Address [address] [facility] 7t [place] [address] Care Team Providers Care Pay Per Click Strategist Name Role Phone Name, Aneesh RIVERS Primary Care Provider [phone] Sandra Rasheed PharmD Unavailable [phone] Reason for Visit * Reason Comments Med Refill Encounter Details Date Type Department Care Team ([facility] st Contact Info) Description 05/02/2024 Refill [facility] MEDICINE [address] [place] [address] Name, MD Aneesh [address] [place] [address] Chronic constipation Social History Tobacco Use Types [...] Encounters Date Type Department Care Team ([facility] st Contact Info) Description 05/27/2025 9:30 AM EST Medication Management [facility] MEDICINE [address] [place] [address] Sandra Rasheed, PharmD [address] [place] [address] 05/29/2025 9:30 AM EST Office Visit [facility] MEDICINE 230 [place] [address] Aneesh Oliveira MD 230 [place] [address] 06/03/2025 9:30 AM EST Office Visit [facility] OPTOMETRY [address] [place] [address] Nathanael, Jayne, OD 230 [place] [address] documented as of this encounter Visit Diagnoses Diagnosis Chronic constipation Unspecified constipation documented in this encounter Additional Health Concerns Assessment Noted Time PHQ-9 Depression Total Score: 4 08/23/19 24 9:44 AM EDT documented as of this encounter Care Teams Pay Per Click Strategist Relationship Specialty Start Date End Date Aneesh Oliveira MD [address] [place] [address] PCP - General Family Medicine 02/14/18 Sandra Rasheed, Javi [address] [place] [address] [phone] Pharmacist Internal Medicine 08/24/24 documented as of this encounter
--- OUTSIDE RECORDS SUMMARY | 2025-04-23 10:08 | XMS_ITS | Encounter Summary ---
Author Organization [employer] Address [address] [facility] 7t [place] [address] Care Team Providers Care Transitional Care Liaison Name Role Phone Name, Aneesh RIVERS Primary Care Provider [phone] Sandra Rasheed PharmD Unavailable [phone] Reason for Visit * Reason Comments Med Refill Encounter Details Date Type Department Care Team ([facility] st Contact Info) Description 08/18/[address] [facility] MEDICINE [address] [place], [place] [phone] Name, MD Aneesh 230 [place] [address] Social History Tobacco Use Types Packs/Day Years [...] Description 05/27/2025 9:30 AM EST Medication Management [facility] MEDICINE [address] [place] [address] Sandra Rsaheed PharmD 230 [place] [address] 05/29/2025 9:30 AM EST Office Visit [facility] MEDICINE [address] [place] [address] Name, MD Aneesh [address] [place] [address] 06/03/2025 9:30 AM EST Office Visit [facility] OPTOMETRY [address] [place] [address] Nathanael, Jayne, OD [address] [place] [address] documented as of this encounter Visit Diagnoses Not on filedocumented in this encounter Care Teams Transitional Care Liaison Relationship Specialty Start Date End Date Name, MD Aneesh [address] [place] [address] PCP - General Family Medicine 02/14/18 Sandra Rasheed, PharmD [address] [place] [address] Pharmacist Internal Medicine 08/24/24 documented as of this encounter
--- OUTSIDE RECORDS SUMMARY | 2025-04-23 10:08 | XMS_ITS | Encounter Summary ---
Author Organization [employer] Address [address] [facility] 7t [place] [address] Care Team Providers Care Log Rider Name Role Phone Name, Aneesh RIVERS Primary Care Provider [phone] Sandra Rasheed PharmD Unavailable [phone] Reason for Visit * Reason Comments Med Refill Encounter Details Date Type Department Care Team ([facility] Contact Info) Description 04/09/2024 Refill [facility] MED & PEDS [address] [place], [place] [phone] Name, MD Aneesh 230 [place] [address] Chronic low back pain, unspecified back pain [...] 9:30 AM EST Medication Management [facility] MEDICINE [address] [place] [address] Sandra Rasheed, PharmD [address] [place] [address] 05/29/2025 9:30 AM EST Office Visit [facility] MEDICINE 230 [place] [address] Aneesh Oliveira MD [address] [place] [address] 06/03/2025 9:30 AM EST Office Visit [facility] OPTOMETRY [address] [place] [address] Nathanael, Jayne, OD 230 [place] [address] documented as of this encounter Visit Diagnoses Diagnosis Chronic low back pain, unspecified back pain laterality, unspecified whether sciatica present documented in this encounter Additional Health Concerns Assessment Noted Time PHQ-9 Depression Total Score: 4 08/23/19 24 9:44 AM EDT documented as of this encounter Care Teams Log Rider Relationship Specialty Start Date End Date NameAneesh MD [address] [place] [address] PCP - General Family Medicine 02/14/18 Sandra Rasheed, Javi [address] [place] [address] Pharmacist Internal Medicine 08/24/24 documented as of this encounter
--- OUTSIDE RECORDS SUMMARY | 2025-04-23 10:08 | XMS_ITS | Encounter Summary ---
Author Organization [employer] Address [address] [facility] 7t [place] [address] Care Team Providers Care Etl Data Architect Name Role Phone Name, Aneesh RIVERS Primary Care Provider Sandra Rasheed PharmD Unavailable [phone] Encounter Details Date Type Department Care Team (Late st Contact Info) Description 03/23/2023 Orders Only [facility] CHC MED & PEDS [address] [place], [place] [phone] Amber Brantley LPN Social History Tobacco Use [...] t he electric, gas, oil or water [employer] threatened to shut off services in your [...] Description 05/27/2025 9:30 AM EST Medication Management [facility] MEDICINE 230 [place] [address] Sandra Rasheed PharmD [address] [place] [address] 05/29/2025 9:30 AM EST Office Visit [facility] MEDICINE 230 [place] [address] Name, MD Aneesh 230 [place] [address] 06/03/2025 9:30 AM EST Office Visit [facility] OPTOMETRY [address] [place] [address] Nathanael, Jayne, OD 230 [place] [address] documented as of this encounter Visit Diagnoses Not on filedocumented in this encounter Care Teams Etl Data Architect Relationship Specialty Start Date End Date Name, MD Aneesh [address] [place] [address] PCP - General Family Medicine 02/14/18 Sandra Rasheed PharmD [address] [place] [address] Pharmacist Internal Medicine 08/24/24 documented as of this encounter
== END 2025-04-23 09:43 | disposition home or self-care (01) ==
LOC: HO.HKA 09:19
PROVIDERS: PCP Internal Medicine Geriatric Medicine; Visit Provider Internal Medicine Hypertension Specialist
DX: I12.9 Hypertensive chronic kidney disease with stage 1 through stage 4 chronic kidney disease, or unspecified chronic kidney disease (principal); N18.9 Chronic kidney disease, unspecified; E11.65 Type 2 diabetes mellitus with hyperglycemia; Z79.4 Long term (current) use of insulin; E83.52 Hypercalcemia
CPT/HCPCS: 99214

== ENCOUNTER → 2025-04-23 09:19 | Outpatient (BNVA) | payer OTHER, SELFPAY | PROVIDERS: PCP Internal Medicine Geriatric Medicine; Visit Provider Internal Medicine Hypertension Specialist | DX: I10 Essential (primary) hypertension (principal); E11.65 Type 2 diabetes mellitus with hyperglycemia; E83.52 Hypercalcemia; M54.50 Low back pain, unspecified; N18.9 Chronic kidney disease, unspecified; Z79.4 Long term (current) use of insulin | CPT/HCPCS: 99212 ==

== ENCOUNTER 2025-05-08 09:05 | Outpatient (REF) | payer OTHER, SELFPAY ==
--- OUTSIDE RECORDS SUMMARY | 2025-05-08 09:49 | XMS_ITS | Clinical Summary ---
Author Organization [facility] Address [address] [place] [address] Phone Care Team Providers Care Home Extension Agent Name Role Phone Name, Aneesh RIVERS Primary Care Provider [phone] Allergies Active Allergy Reactions Criticality Noted Date [...] 49 Years) Discontinued 02/17/2014, 03/15/2008, 04/14/2000 Insurance [facility] Dual Sensor Tower [facility] [place] Care Teams Home Extension Agent Relationship Specialty Start Date End Date Name, MD Aneesh [address] [place] [address] [phone] PCP - General 06/23/20
--- OUTSIDE RECORDS SUMMARY | 2025-05-08 09:49 | XMS_ITS | Encounter Summary ---
Author Organization [employer] Address [address] [facility] 7t [place] [address] Care Team Providers Care Corrections Officer Name Role Phone Name, Aneesh RIVERS Primary Care Provider [phone] Sandra Rasheed PharmD Unavailable [phone] Reason for Visit * Reason Comments Med Refill Encounter Details Date Type Department Care Team ([facility] st Contact Info) Description 08/18/2023 Refill [facility] MEDICINE 230 [place], [place] [phone] Name, MD Aneesh 230 [place] [address] Social History Tobacco Use Types Packs/Day Years [...] Care Team (Late st Contact Info) Description 05/29/2025 9:30 AM EST Office Visit [facility] MEDICINE [address] [place] [address] Name, MD Aneesh [address] [place] [address] 06/03/2025 9:30 AM EST Office Visit [facility] OPTOMETRY [address] [place] [address] Nathanael, Jayne, OD 230 [place] [address] 07/02/2025 10:00 AM EST Medication Management [facility] MEDICINE [address] [place] [address] Sandra Rasheed PharmD [address] [place] [address] documented as of this encounter Visit Diagnoses Not on filedocumented in this encounter Care Teams Corrections Officer Relationship Specialty Start Date End Date Name, MD Aneesh [address] [place] [address] PCP - General Family Medicine 02/14/18 Sandra Rasheed, PharmD [address] [place] [address] Pharmacist Internal Medicine 08/24/24 documented as of this encounter
--- OUTSIDE RECORDS SUMMARY | 2025-05-08 09:49 | XMS_ITS | Encounter Summary ---
Author Organization [employer] Address [address] [facility] 7t [place] [address] Care Team Providers Care Aircraft Cylinder Mechanic Name Role Phone Name, Aneesh RIVERS Primary Care Provider [phone] Sandra Rasheed PharmD Unavailable [phone] Reason for Visit * Reason Comments Med Refill Encounter Details Date Type Department Care Team ([facility] st Contact Info) Description 04/10/[address] [facility] MEDICINE 230 [place] [address] Name, MD Aneesh 230 [place] [address] Left leg pain; Chronic low back pain, [...] Description 05/29/2025 9:30 AM EST Office Visit [facility] MEDICINE [address] [place] [address] Name, MD Aneesh 230 [place] [address] 06/03/2025 9:30 AM EST Office Visit [facility] OPTOMETRY [address] [place] [address] Nathanael, Jayne, OD 230 [place] [address] 07/02/2025 10:00 AM EST Medication Management [facility] MEDICINE [address] [place] [address] Sandra Rasheed, PharmD 230 [place] [address] documented as of this encounter Visit Diagnoses Diagnosis Left leg pain Pain in soft tissues of limb Chronic low back pain, unspecified back pain laterality, unspecified whether sciatica present documented in this encounter Additional Health Concerns Assessment Noted Time PHQ-9 Depression Total Score: 5 03/06/20 11:44 AM EDT documented as of this encounter Care Teams Aircraft Cylinder Mechanic Relationship Specialty Start Date End Date Name, MD Aneesh 230 [place] [address] PCP - General Family Medicine 02/14/18 Sandra Rasheed PharmD 230 [place] [address] Pharmacist Internal Medicine 08/24/24 documented as of this encounter
--- OUTSIDE RECORDS SUMMARY | 2025-05-08 09:49 | XMS_ITS | Encounter Summary ---
Author Organization [employer] Address [address] [facility] 7t h Floor [place] [phone] Care Team Providers Care Laborer Cheesemaking Name Role Phone Name, Aneesh RIVERS Primary Care Provider [phone] Sandra Rasheed PharmD Unavailable [phone] Reason for Visit * Reason Onset Date Comments Appointment Request 07/17/2024 Encounter Details Date Type Department Care Team ([facility] st Contact Info) Description 07/17/2024 Telephone [facility] MEDICINE 230 [place] [address] Name, MD Aneesh 230 [place] [address] Appointment Request Social History Tobacco Use Types [...] r/s apt for 07/17/24. Contact pt at [phone] documented in this encounter Plan of Treatment Upcoming Encounters Date Type Department Care Team ([facility] st Contact Info) Description 05/29/2025 9:30 AM EST Office Visit [facility] MEDICINE [address] [place] [address] Name, MD Aneesh 230 [place] [address] 06/03/2025 9:30 AM EST Office Visit [facility] OPTOMETRY [address] [place] [address] Jayne Huffman, OD 230 [place] [address] 07/02/2025 10:00 AM EST Medication Management [facility] MEDICINE [address] [place] [address] Sandra Rasheed, PharmD 230 [place] [address] documented as of this encounter Visit Diagnoses Not on filedocumented in this encounter Additional Health Concerns Assessment Noted Time PHQ-9 Depression Total Score: 4 08/23/19 24 9:44 AM EDT documented as of this encounter Care Teams Laborer Cheesemaking Relationship Specialty Start Date End Date Name, MD Aneesh 230 [place] [address] PCP - General Family Medicine 02/14/18 Sandra Rasheed, Javi [address] [place] [address] Pharmacist Internal Medicine 08/24/24 documented as of this encounter
--- OUTSIDE RECORDS SUMMARY | 2025-05-08 09:49 | XMS_ITS | Encounter Summary ---
Author Organization [employer] Address [address] [facility] 7t [place] [address] Care Team Providers Care Auto Hiker Name Role Phone Name, Aneesh RIVERS Primary Care Provider [phone] Sandra Rasheed PharmD Unavailable [phone] Reason for Visit * Reason Comments Med Refill Encounter Details Date Type Department Care Team ([facility] Contact Info) Description 04/09/2024 Refill [facility] CHC MED & PEDS [address] [place], [place] [phone] Name, MD Aneesh 230 [place] [address] Chronic low back pain, unspecified back pain [...] Description 05/29/2025 9:30 AM EST Office Visit [facility] MEDICINE [address] [place] [address] Name, MD Aneesh 230 [place] [address] 06/03/2025 9:30 AM EST Office Visit [facility] OPTOMETRY [address] [place] [address] Nathanael, Jayne, OD 230 [place] [address] 07/02/2025 10:00 AM EST Medication Management [facility] MEDICINE [address] [place] [address] Sandra Rasheed, PharmD 230 [place] [address] documented as of this encounter Visit Diagnoses Diagnosis Chronic low back pain, unspecified back pain laterality, unspecified whether sciatica present documented in this encounter Additional Health Concerns Assessment Noted Time PHQ-9 Depression Total Score: 4 08/23/19 24 9:44 AM EDT documented as of this encounter Care Teams Auto Hiker Relationship Specialty Start Date End Date Name, MD Aneesh [address] [place] [address] PCP - General Family Medicine 02/14/18 Sandra Rasheed, Javi [address] [place] [address] Pharmacist Internal Medicine 08/24/24 documented as of this encounter
--- OUTSIDE RECORDS SUMMARY | 2025-05-08 09:49 | XMS_ITS | Encounter Summary ---
Author Organization [employer] Address [address] [facility] 7t [place] [address] Care Team Providers Care Distribution Agent Name Role Phone Name, Aneesh RIVERS Primary Care Provider [phone] Sandra Rasheed PharmD Unavailable [phone] Reason for Visit * Reason Comments Med Refill Encounter Details Date Type Department Care Team ([facility] st Contact Info) Description 08/19/[address] [facility] MEDICINE [address] [place] [address] Name, MD Aneesh 230 [place] [address] Social History Tobacco Use Types Packs/Day Years [...] Description 05/29/2025 9:30 AM EST Office Visit [facility] MEDICINE [address] [place] [address] Name, MD Aneesh [address] [place] [address] 06/03/2025 9:30 AM EST Office Visit [facility] OPTOMETRY [address] [place] [address] Nathanael, Jayne, OD 230 [place] [address] 07/02/2025 10:00 AM EST Medication Management [facility] MEDICINE [address] [place] [address] Sandra Rasheed PharmD [address] [place] [address] documented as of this encounter Visit Diagnoses Not on filedocumented in this encounter Care Teams Distribution Agent Relationship Specialty Start Date End Date Name, MD Aneesh [address] [place] [address] PCP - General Family Medicine 02/14/18 Sandra Rasheed, PharmD [address] [place] [address] Pharmacist Internal Medicine 08/24/24 documented as of this encounter
--- OUTSIDE RECORDS SUMMARY | 2025-05-08 09:49 | XMS_ITS | Encounter Summary ---
Author Organization [employer] Address [address] [facility] 7t [place] [address] Care Team Providers Care Engine Cowling Installer Name Role Phone Name, Aenesh RIVERS Primary Care Provider Sandra Rasheed PharmD Unavailable [phone] Encounter Details Date Type Department Care Team (Late st Contact Info) Description 03/23/2023 Orders Only [facility] CHC MED & PEDS [address] [place], [place] [phone] Amber Brantley LPN Social History Tobacco Use [...] Description 05/29/2025 9:30 AM EST Office Visit [facility] MEDICINE [address] [place] [address] Name, MD Aneesh 230 [place] [address] 06/03/2025 9:30 AM EST Office Visit [facility] OPTOMETRY [address] [place] [address] Nathanael, Jayne, OD 230 [place] [address] 07/02/2025 10:00 AM EST Medication Management [facility] MEDICINE [address] [place] [address] Sandra Rasheed PharmD [address] [place] [address] documented as of this encounter Visit Diagnoses Not on filedocumented in this encounter Care Teams Engine Cowling Installer Relationship Specialty Start Date End Date Name, MD Aneesh [address] [place] [address] PCP - General Family Medicine 02/14/18 Sandra Rasheed PharmD [address] [place] [address] Pharmacist Internal Medicine 08/24/24 documented as of this encounter
--- OUTSIDE RECORDS SUMMARY | 2025-05-08 09:49 | XMS_ITS | Encounter Summary ---
Author Organization [employer] Address 75 [facility] 7t [place] [address] Care Team Providers Care Parole Or Probation Officer Name Role Phone Name, Aneesh RIVERS Primary Care Provider [phone] Sandra Rasheed PharmD Unavailable [phone] Reason for Visit * Reason Comments Med Refill Encounter Details Date Type Department Care Team ([facility] st Contact Info) Description 05/02/2024 Refill [facility] [address] [place] [address] Name, MD Aneesh [address] [place] [address] Chronic constipation Social History Tobacco Use Types [...] Description 05/29/2025 9:30 AM EST Office Visit [facility] [address] [place] [address] Aneesh Oliveira MD [address] [place] [address] 06/03/2025 9:30 AM EST Office Visit [facility] [address] [place] [address] Nathanael, Jayne, OD [address] [place] [address] 07/02/2025 10:00 AM EST Medication Management [facility] [address] [place] [address] Sandra Rasheed, PharmD [address] [place] [address] documented as of this encounter Visit Diagnoses Diagnosis Chronic constipation Unspecified constipation documented in this encounter Additional Health Concerns Assessment Noted Time PHQ-9 Depression Total Score: 4 08/23/19 24 9:44 AM EDT documented as of this encounter Care Teams Parole Or Probation Officer Relationship Specialty Start Date End Date Aneesh Oliveira MD [address] [place] [id number] PCP - General Family Medicine 02/14/18 Sandra Rasheed, Javi [address] [place] [address] [phone] Pharmacist Internal Medicine 08/24/24 documented as of this encounter
--- OUTSIDE RECORDS SUMMARY | 2025-05-08 09:49 | XMS_ITS | Encounter Summary ---
Author Organization [id number] Address 75 [facility] 7t [place] [address] Care Team Providers Care Testing Lead Name Role Phone Name, Aneesh RIVERS Primary Care Provider [phone] Sandra Rasheed PharmD Unavailable [phone] Reason for Visit * Reason Onset Date Comments FYI 08/23/2023 Encounter Details Date Type Department Care Team ([facility] st Contact Info) Description 08/23/2023 Telephone [facility] [address] [place] [address] Name, MD Aneesh [address] [place] [address] FY Social History Tobacco Use Types Packs/Day [...] 2 08/11 9:44 AM Corinne Leal * How difficult have these problems made it for you to do your work, take care of things at home, or get along with other people? Answer Date of Assessment Author Somewhat difficult 08/23/2023 9:44 AM Corinne Licea * Over the past 2 weeks, how [...] 3:03 PM EDT Tc from [facility]idy with [facility] stating pt no longer wants to continue care with them. Leidy stated pt no showed 3 appts in a row and when asked about it pt said it was due to to transportation. Pt claims they are irresponsible and that they don't communicate. Pt stated he will continue care with PCP. If any questions please contact Leidy at [phone]. documented in this encounter Plan of Treatment Upcoming Encounters Date Type Department Care Team (Late st Contact Info) Description 05/29/2025 9:30 AM EST Office Visit [facility] [address] [place] [id number] Name, MD Aneesh [address] [place] [address] 06/03/2025 9:30 AM EST Office Visit [facility] [address] [place] [address] Jayne Huffman, OD [address] [place] [address] 07/02/2025 10:00 AM EST Medication Management [facility] [address] [place] [address] Sandra Rasheed, PharmD [address] [place] [address] documented as of this encounter Visit Diagnoses Not on filedocumented in this encounter Additional Health Concerns Assessment Noted Time PHQ-9 Depression Total Score: 4 08/23/19 24 9:44 AM EDT documented as of this encounter Care Teams Testing Lead Relationship Specialty Start Date End Date Name, MD Aneesh [address] [place] [address] PCP - General Family Medicine 02/14/18 Sandra Rasheed, AnkushD [address] [place] [address] Pharmacist Internal Medicine 08/24/24 documented as of this encounter
--- OUTSIDE RECORDS SUMMARY | 2025-05-08 09:49 | XMS_ITS | Encounter Summary ---
Author Organization [facility] Address [address] [facility] 7t [place] [address] Care Team Providers Care Sinter Machine Operator Name Role Phone Name, Aneesh RIVERS Primary Care Provider [phone] Sandra Rasheed PharmD Unavailable [phone] Reason for Visit * Reason Comments Med Refill Encounter Details Date Type Department Care Team ([facility] st Contact Info) Description 01/12/2024 Refill [facility] [address] [place], [place] [phone] Name, MD Aneesh [address] [place] [address] Chronic low back pain, unspecified back pain [...] Description 05/29/2025 9:30 AM EST Office Visit [facility] [address] [place] [address] Name, MD Aneesh [address] [place] [address] 06/03/2025 9:30 AM EST Office Visit [facility] [address] [place] [address] Nathanael, Jayne, OD [address] [place] [address] 07/02/2025 10:00 AM EST Medication Management [facility] [address] [place] [address] Sandra Rasheed, PharmD [address] [place] [address] documented as of this encounter Visit Diagnoses Diagnosis Chronic low back pain, unspecified back pain laterality, unspecified whether sciatica present documented in this encounter Additional Health Concerns Assessment Noted Time PHQ-9 Depression Total Score: 4 08/23/19 24 9:44 AM EDT documented as of this encounter Care Teams Sinter Machine Operator Relationship Specialty Start Date End Date Name, MD Aneesh [address] [place] [address] PCP - General Family Medicine 02/14/18 Sandra Rasheed, Javi [address] [place] [address] Pharmacist Internal Medicine 08/24/24 documented as of this encounter
--- OUTSIDE RECORDS SUMMARY | 2025-05-08 09:49 | XMS_ITS | Data Portability ---
Author Organization [place] [facility], Allergy Address [address] [facility] [address] [place] [id number] Care Team Providers Care Laser Beam Cutter Name Role Phone NAME, LAURENT Primary [...] vocal quality. I recommended he see a transportation department head, voice specalist, to evaluate him and see if he would be a good candidate for a more permanent medialization procedure. Patient is willing and interested to travel to [place] to hear options. - Referral to [facility] Otolaryngology - Dr. Stafford or Dr. Machuca for discussion [email or web address] Not available 05/04/2024 08:27:45 Plan of Treatment Reminders Order Date Submit Date Provider Last Modified By Organization Details Last Modified Time Details Appointments None recorded. Lab None recorded. Referral otolaryngol ogist referral - Attn: Birgit. Dr. Machuca or Dr. Stafford - bilateral vocal cord paralysis. 2023 024 [email or web address] 2 [facility] Otolaryngolog y, [address] [facility], [facility], [place], [address], 4 10:41:11 Procedures None recorded. Surgeries None recorded. Imaging None recorded. Medication Orders None recorded. Patient TargetsNo targets recorded. Patient InstructionsNo instructions recorded. 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 Dr. Machuca or Dr. Stafford - bilateral vocal cord paralysis. 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 Active 2018 Paralysis of vocal cords and larynx, unspecifie d; Note: Date Diagnosed: 12/25/2018 2:49 PM (J38.00) Not Available [facility] 4 03:24:49 Dysphonia 17155440 Active 2018 Hoarseness ; Note: Date Diagnosed: 12/25/2018 2:49 PM (R49.0) Not Available [facility] 4 03:24:49 Simple goiter 208377640 Active 2018 Goiter NOS; Note: Date Diagnosed: 12/25/2018 2:49 PM (E04.9) Not Available [facility] 4 03:24:49 Paralysis of larynx 18700804 Active 2023 RYAN MAYA MD [address] [place] [address], [phone] , [facility] 4 08:24:41 Problem Notes None recorded. Procedures Surgical History Date Name Laterality Status Provider Name and Address Organization Details Recorded Time 05/03/20 24 Fiberoptic Laryngoscopy (Comprehensive) completed RYAN MAYA MD [address] [place] [address], [place], [phone], [facility] [...] Updated DateTime 05/03/2024 167.64 cm 34.7 kg/m2 46911.36 g Dimagiovanny Ramírez [place] [facility] 05/03/2024 13:28:04 Social History None recorded. Functional Status None recorded. Mental Status None recorded. Family History Nothing Reported. Medical History No medical history recorded. Past Encounters Encounter ID Performer Location Encounter Start Date Encounter Closed Date Diagnosis/Indication Diagnosis SNOMED-CT Code Diagnosis ICD10 Code Diagnosis IMO Codes Diagnosis Note [id number] RYAN MAYA MD [facility] [address] [phone] 05/03/2024 13:04:26 05/03/2024 16:54:58 Paralysis of larynx 19625546 J38.02 Dysphonia 16676709 R49.9 Health Concerns Section Related Observation LastModified by Organization Detai ls LastModified Time None Recorded Concern Status LastModified by Organization Details LastModified Time None Recorded Advance Directives Directive None Recorded Payers Insurance Date Sequence Insurance Name Policy Number Policy Hood Covered Member ID Hood Member ID Guarantor Name 05/03/2024 1 [facility] (MEDICARE REPLACEMENT/ ADVANTAGE - HMO) Josue Mace [id number] Josue Mace 05/02/2024 2 [place] [facility] Josue Mace [id number] Josue Mace Notes Date Note Type Note Provider Name and Address Organization Details Recorded Time 05/03/2024 text/html ROS as noted in the HPI 73yo gentleman who presents today for evaluation of bilateral vocal cord paralysis and dysphonia. He has had difficulty with his voice for about 5 years. He underwent a traumatic intubation at [facility] in 2018 in the setting of an anaphylactic event. Following, this resulted in dysphonia and dyspnea with exertion. He was seen by otolaryngology in [place] - Dr. John Coppola. At that time, [...] aspirin 81 & clopidogrel. RYAN MAYA MD [address] [place] [address], [place], [address], [place] [facility] 05/04/2024 20:31:01
--- OUTSIDE RECORDS SUMMARY | 2025-05-08 09:49 | XMS_ITS | Encounter Summary ---
Author Organization [employer] Address 75 [facility] 7t [place] [address] Care Team Providers Care Snowboarding Instructor Name Role Phone Name, Aneesh RIVERS Primary Care Provider [phone] Sandra Rasheed PharmD Unavailable [phone] Reason for Visit * Reason Comments Med Refill Encounter Details Date Type Department Care Team ([facility] st Contact Info) Description 12/20/2024 Refill [facility] [address] [place] [address] Name, MD Aneesh [address] [place] [address] Left leg pain; Chronic low back pain, [...] Description 05/29/2025 9:30 AM EST Office Visit [facility] [address] [place] [address] Name, MD Aneesh [address] [place] [address] 06/03/2025 9:30 AM EST Office Visit [facility] [address] [place] [address] Nathanael, Jayne, OD [address] [place] [address] 07/02/2025 10:00 AM EST Medication Management [facility] [address] [place] [address] Sandra Rasheed, PharmD [address] [place] [address] documented as of this encounter Visit Diagnoses Diagnosis Left leg pain Pain in soft tissues of limb Chronic low back pain, unspecified back pain laterality, unspecified whether sciatica present documented in this encounter Additional Health Concerns Assessment Noted Time PHQ-9 Depression Total Score: 4 08/23/19 24 9:44 AM EDT documented as of this encounter Care Teams Snowboarding Instructor Relationship Specialty Start Date End Date Name, MD Aneesh [address] [place] [address] PCP - General Family Medicine 02/14/18 Sandra Rasheed PharmD [address] [place] [address] Pharmacist Internal Medicine 08/24/24 documented as of this encounter
--- OUTSIDE RECORDS SUMMARY | 2025-05-08 09:49 | XMS_ITS | Encounter Summary ---
Author Organization [employer] Address 75 [facility] 7t [place] [address] Care Team Providers Care Supervisor Pleating Name Role Phone Name, Aneesh RIVERS Primary Care Provider [phone] Sandra Rasheed PharmD Unavailable [phone] Reason for Visit * Reason Comments Med Refill Encounter Details Date Type Department Care Team ([facility] st Contact Info) Description 06/25/2024 Refill [facility] [address] [place] [address] Name, MD Aneesh [address] [place] [address] Hypertension, unspecified type; Prostatism; Type 2 diabetes mellitus with hyperglycemia (CMS/HCC); half-way (current) use of insulin ([facility]) Social History Tobacco Use Types Packs/Day Years [...] Description 05/29/2025 9:30 AM EST Office Visit [facility] [address] [place] [address] Name, MD Aneesh [address] [place] [address] 06/03/2025 9:30 AM EST Office Visit [facility] [address] [place] [address] Nathanael, Jayne, OD [address] [place] [address] 07/02/2025 10:00 AM EST Medication Management [facility] [address] [place] [address] Sandra Rasheed, Javi [address] [place] [address] documented as of this encounter Visit Diagnoses Diagnosis Hypertension, unspecified type Prostatism Unspecified hyperplasia of prostate without urinary obstruction and other lower urinary tract symptoms (LUTS) Type 2 diabetes mellitus with hyperglycemia (HCC) bss solution architect (current) use of insulin ([facility]/HCC) (HCC) documented in this encounter Additional Health Concerns Assessment Noted Time PHQ-9 Depression Total Score: 4 08/23/19 24 9:44 AM EDT documented as of this encounter Care Teams Supervisor Pleating Relationship Specialty Start Date End Date Name, MD Aneesh [address] [place] [address] PCP - General Family Medicine 02/14/18 Sandra Rasheed PharmD [address] [place] [address] Pharmacist Internal Medicine 08/24/24 documented as of this encounter
--- OUTSIDE RECORDS SUMMARY | 2025-05-08 09:50 | XMS_ITS | Clinical Summary ---
Author Organization [employer] Address [address] [facility] [address] [place] [address] Care Team Providers Care Macaroni Press Operator Name Role Phone Name, Aneesh RIVERS Primary Care Provider [phone] Sandra Rasheed PharmD Unavailable [phone] Allergies Active Allergy Reactions Criticality Noted [...] MOUTH EVERY DAY 250 mL 10 Active Alcohol Swabs (Easy Touch Alcohol Prep Medium) 70 % pads USE DIRECTED FOUR TIMES DAILY 100 each Active acetaminophen (Tylenol) 500 MG tablet Take 1 tablet (500 mg) by mouth every 8 (eight) hours if needed for mild pain. Patient reports taking 3 tablets every morning for pain 30 tablet 11 024 2024 Active senna (Senokot) 8.6 MG tablet Take 2 tablets by mouth Once per day. 024 Active Reguloid 400 MG capsule Take 2 capsules by mouth 2 times daily. 025 Active insulin pen needle (UltiGuard SafePack Pen Needle) 32G x 4 mm miscIndications: Type 2 diabetes mellitus with hyperglycemia ([facility]) Use to inject insulin 4 times daily 200 each 05/01/20 10:31 AM EST 025 Active glucose blood (Standard TreasuryTouch Ultra) test stripIndications :Type 2 diabetes mellitus with hyperglycemia ([facility]) TEST BLOOD SUGAR THREE TIMES DAILY 100 strip Active metFORMIN (Glucophage) 1000 MG tabletIndication s:Type 2 diabetes mellitus with other specified complication, without long-term current use of insulin ([facility]) TAKE 1 TABLET BY MOUTH TWICE DAILY AT NOON AND IN THE EVENING BEFORE MEALS 60 tablet 05/01/20 10:31 AM EST 025 Active Aspirin Low Dose 81 MG [...] hyperglycemia, with long-term current use of insulin ([facility]) Inject 0.75 mL (2 mg) under the skin 1 (one) time per week. 3 mL 025 Active rosuvastatin (Crestor) 20 MG tabletIndication s:Type 2 diabetes mellitus with hyperglycemia, with long-term current use of insulin ([facility]) Take 1 tablet (20 mg) by mouth Once per day. 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 (CMS/HCC) (HCC) INJECT 35 UNITS SUBCUTANEOUSLY THREE TIMES DAILY WITH MEALS 30 mL 5 05/01/20 25 10:31 AM EST 025 Active chlorthalidone (Hygroton) 50 MG tablet TAKE 1 TABLET BY MOUTH EVERY MORNING 90 tablet 2 025 Active cetirizine (ZyrTEC) 10 MG tabletIndication s:Chronic low back pain, unspecified back pain laterality, unspecified whether sciatica present TAKE 1 TABLET BY MOUTH TWICE DAILY 60 tablet 2 05/01/20 25 10:31 AM EST 025 Active insulin glargine (Toujeo Max SoloStar) 300 UNIT/ML injectionIndicat ions:Type 2 diabetes mellitus with hyperglycemia (HCC),intermediate (current) use of insulin (CMS/HCC) (HCC) INJECT 80 UNITS SUBCUTANEOUSLY EVERY DAY AT [...] MORNING, EVENING, AND BEDTIME 90 tablet 2 05/01/20 25 10:31 AM EST 025 Active gabapentin (Neurontin) 100 MG capsuleIndicatio ns:Left leg pain,Chronic low back pain, unspecified back pain laterality, unspecified whether sciatica present TAKE 2 CAPSULES BY MOUTH TWICE DAILY AT NOON AND BEDTIME 120 capsule 2 05/01/20 25 10:31 AM EST 025 Active Invokana 100 MG TAKE 1 TABLET BY MOUTH EVERY MORNING BEFORE BREAKFAST 30 tablet 11 05/01/20 25 10:31 AM EST 025 Active canagliflozin (Invokana) 100 MG Take 1 tablet (100 mg) by mouth before breakfast. 30 tablet 11 024 2024 Discontinued hydrALAZINE (Apresoline) 25 MG tablet Take 1 tablet (25 mg) by mouth 3 times daily. 90 tablet 2 025 2024 Discontinued gabapentin (Neurontin) 100 MG capsuleIndicatio ns:Left leg pain,Chronic low back pain, unspecified back pain laterality, unspecified whether sciatica present TAKE 2 CAPSULES BY MOUTH TWICE DAILY AT NOON AND BEDTIME 120 capsule 2 025 2024 Discontinued Active Problems Problem Noted [...] Encounters Date Type Department Care Team Description 04/23/2025 Telephone [facility] MEDICINE [address] [place] [address] Sandra Rasheed, PharmD 04/22/2025 Refill [facility] MEDICINE [address] [place] [address] Aneesh Oliveira MD 04/18/2025 Orders Only GENERIC EXTERNAL DATA DEPARTMENT Provider, Generic External Data 04/16/2025 Refill C MEDICINE [address] [place] [address] Aneesh Oliveira MD Left leg pain; Chronic low back pain, unspecified back pain laterality, unspecified whether sciatica present 04/10/2025 Refill C MEDICINE [address] [facility] [place] [address] Aneesh Oliveira MD Left leg pain; Chronic low back pain, unspecified back pain laterality, unspecified whether sciatica present 04/10/2025 Refill [facility] MEDICINE [address] [place] [address] Sandra Rasheed, PharmD 04/04/2025 Telephone [facility] MEDICINE [address] [place] [address] Aneesh Oliveira MD 04/04/2025 Telephone C MEDICINE [address] [place] [address] Aneesh Oliveira MD Transition Of Care (Tcm) 04/03/2025 Orders Only [facility] External Provider, [facility] 04/01/2025 Refill [facility] MEDICINE [address] [place] [address] Aneesh Oliveira MD Type 2 diabetes mellitus with other specified complication, without long-term current use of insulin (HCC) (Primary Dx) 03/06/2025 11:00 AM EDT Office Visit [facility] MEDICINE [address] [place] [address] NameAneesh MD Type 2 diabetes mellitus with other specified complication, without long-term current use of insulin (CMS/HCC) (Primary Dx); Stage 3a chronic kidney disease (CMS/HCC); Hypertension, unspecified type; Chronic low back pain, unspecified back pain laterality, unspecified whether sciatica present; Generalized osteoarthritis; Encounter for immunization 03/06/2025 Travel 02/18/2025 Telephone [facility] [address] [place] [address] NameAneesh MD Chart Prep from Last 3 Months Immunizations Immunization Administration [...] Description 05/29/2025 9:30 AM EST Office Visit [facility] MEDICINE [address] [place] [address] Name, MD Aneesh [address] [place] [address] 06/03/2025 9:30 AM EST Office Visit [facility] OPTOMETRY [address] [place] [address] Nathanael, Jayne, OD [address] [place] [address] 07/02/2025 10:00 AM EST Medication Management [facility] MEDICINE [address] [place] [address] Sandra Rasheed, PharmD [address] [place] [address] Health Maintenance Due Date Last Done Comments CT Colonography 1950 Dental Oral Exam 1950 Dental Prophylaxis 1950 FIT DNA/Cologuard 1950 FIT 1950 FOBT 1950 Sigmoidoscopy 1950 Derm Melanoma Skin Check 01/31/1951 Hepatitis A Vaccines (1 of 2 - Risk 2-dose series) 1969 RSV Patients and Patients Aged 60 years or older (1 - Risk 50-74 years 1-dose series) 2000 Dental X-Ray: Bitewings 04/04/2010 04/03/2009 Hepatitis B Vaccines (1 of 3 - Risk 3-dose series) 2010 Zoster Vaccines (2 of 2) [...] Results * CBC (04/18/2025 8:11 AM EST) Pathologist [facility] White Blood Count 10.3 4.8 - 10.8 X10*3/uL [facility] Red Blood Count 5.04 4.60 - 5.80 X10*6/uL [facility] Hemoglobin 14.6 14.0 - 18.0 g/dl [facility] Hematocrit 45.5 42.0 - 52.0 % [facility] Mean Corpuscular Volume 90.3 80.0 - 98.0 fL [facility] Mean Corpuscular Hemoglobin 29.0 27.0 - 33.0 pg [facility] Mean Corpuscular HGB Conc 32.1 31.0 - 36.0 g/dl [facility] Red Cell Distribution Width 13.2 11.0 - 16.0 % [facility] Platelet Count 305 160 - 400 X10*3/uL [facility] Mean Platelet Volume 10.3 9.4 - 12.4 fL [facility] NRBC Pct Auto 0.0 0.0 - 0.2 /100WBC [facility] NRBC Abs Auto 0.000 0.0 - 0.012 X10*3/uL [facility] 04/18/2025 8:11 AM EST 04/18/2025 8:11 AM EST us Generic External Data Provider LAB BLOOD ORDERAB LES Final Result [facility] [address] [place] [phone] * (ABNORMAL) Basic Metabolic Panel (04/18/2025 8:11 AM EST) Pathologist [facility] Sodium 140 135 - 145 mmol/L [facility] Potassium 4.3 3.3 - 5.1 mmol/L [facility] Chloride 102 96 - 108 mmol/L [facility] Carbon Dioxide 29 22 - 29 mmol/L [facility] Anion Gap 13 12 - 20 [facility] Urea Nitrogen (BUN) 29(H) 9 - 16 mg/dL [facility] Creatinine, Serum 1.18 0.5 - 1.4 mg/dL [facility] Estimated Glomerular Filt Rate >60 [facility] Comment:Chronic Kidney Disea se: Estimated GFR < 60 mL/min/1.18g4Pediia Kidney Disease: Estimated GFR < 15 mL/min/1.73m2 Glucose 256(H) 60 - 115 mg/dL [facility] Calcium 10.4(H) 8.4 - 10.2 mg/dL [facility] 04/18/2025 8:11 AM EST 04/18/2025 8:11 AM EST us Generic External Data Provider LAB BLOOD ORDERAB LES Final Result Performing Organization Address City/State/[facility] Co de Phone Number [facility] [address] [place] [phone] * US Abdomen Complete (04/15/2025 2:54 PM EST) Anatomical Region Laterality Modality Abdomen Ultrasound 04/15/2025 2:54 PM EST Narrative 04/15/2025 2:56 PM EST [address] [address] Ultrasound Report Signed Patient: Josue Dawson MR#: [id number] : 1950 Acct:[id number] Age/Sex: 74 / M ADM Date: 04/15/25 Loc: HO.US Attending Dr: Toma Hernández MD Ordering Physician: Toma Hernández MD Date of Service: 04/15/25 Procedure(s): US abdomen complete Accession Number(s): [id number] cc: Aneesh Oliveira MD; Toma Hernández MD Reason for Exam: K76.0 [...] 04/15/25 1455 DD/ 1454 TD/TT: 04/15/25 1454 Elderly Caregiver: Procedure Note Donotuseinterpreter, Image - 04/15/2025 [place] [address] Ultrasound Report Signed Patient: Josue Dawson#: [id number] : 1950cct:[id number] Age/Sex: 74 / MADM Date: 04/15/25 Loc: HO.US Attending Dr: Toma Hernández MD Ordering Physician: Toma Hernández MD Date of Service: 04/15/25 Procedure(s): US abdomen complete Accession Number(s): [id number] cc: Roxanne,Aneesh RIVERS; Toma Hernández MD Reason [...] in OV> 04/15/25 1455 DD/ 53 TD/TT: 04/15/25 145 Elderly Caregiver: us [facility] External Provider IMG US PROCEDURES Final Result * VASC US Lower Extremity Arterial Duplex Bilateral With Baylee (04/08/2025 9:50 AM EDT) 04/08/2025 9:50 AM EDT Narrative [facility] IM[facility] - 04/08/2025 11:32 AM EDT [address] [address] Ultrasound Report Signed Patient: Josue Dawson MR#: [id number] : 1950 Acct:[id number] Age/Sex: 74 / M ADM Date: 04/08/25 Loc: HO.US Attending Dr: Rodney Smith MD Ordering Physician: Rodney Smith MD Date of Service: 04/08/25 Procedure(s): US arterial duplex BI w/ BAYLEE Accession Number(s): [id number] cc: Rodney Smith MD; Name,Aneesh Reason for [...] 04/08/25 1129 DD/ 0950 TD/TT: 04/08/25 1023 Elderly Caregiver: Procedure Note Donotuseinterpreter, Image - 04/08/[address] [address] Ultrasound Report Signed Patient: Josue Dawson#: [id number] : 1Acct:[id number] Age/Sex: 74 / MADM Date: 04/08/25 Loc: HO.US Attending Dr: Rodney Smith MD Ordering Physician: Rodney Smith MD Date of Service: 04/08/25 Procedure(s): US arterial duplex BI w/ BAYLEE Accession Number(s): [id number] cc: Rodney Smith MD; Name,Aneesh RIVERS Reason [...] 04/08/25 1129 DD/ 0950 TD/TT: 04/08/25 1023 Elderly Caregiver: [facility] External Provider CV VASC ULAR PROCEDURES Edited Result - Final [facility] [address] [place] [phone] * XR KUB and Upright 2 Views (04/03/2025 11:08 PM EDT) Anatomical Region Laterality Modality Radiographic Trang ging 04/03/2025 11:0 8 PM EDT Narrative 04/03/2025 11:10 PM EDT [address] [address] XRay Report Signed Patient: Josue Dawson MR#: [id number] : 1950 Acct:[id number] Age/Sex: 74 / M ADM Date: 04/03/25 Loc: HO.ED Attending Dr: Ordering Physician: Cherelle Peralta Date of Service: 04/03/25 Procedure(s): XR KUB Accession Number(s): [id number] cc: Cherelle Peralta; Aneesh Oliveira MD Reason [...] in OV> 04/03/252308 DD/ 07 TD/TT: 04/03/252307 Elderly Caregiver: Procedure Note Donotuseinterpreter, Image - 04/03/[address] [address] XRay Report Signed Patient: Josue Dawson#: [id number] : 1950cct:[id number] Age/Sex: 74 / MADM Date: 04/03/25 Loc: .ED Attending Dr: Ordering Physician: Cherelle Peralta Date of Service: 04/03/25 Procedure(s): XR KUB Accession Number(s): [id number] cc: Cherelle Peralta; Aneesh Oliveira MD Reason [...] in OV> 04/03/252308 DD/ 07 TD/TT: 04/03/252307 Elderly Caregiver: us [facility] External Provider IMG XR PROCEDURES Edited Result - Final * XR Chest 2 Views (04/03/2025 9:00 AM EDT) Anatomical Region Laterality Modality Chest Radiographic Trang ging 04/03/2025 9:00 AM EDT Narrative 04/03/2025 9:10 AM EDT [address] [address] XRay Report Signed Patient: Josue Dawson MR#: [id number] : 1950 Acct:[id number] Age/Sex: 74 / M ADM Date: 04/03/25 Loc: .ED Attending Dr: Ordering Physician: Generic ED Physician Date of Service: 04/03/25 Procedure(s): XR chest 2V Accession Number(s): [id number] cc: Generic ED Physician; Name,Aneesh RIVERS Reason [...] in OV> 04/03/25907 DD/ 9 TD/TT: 04/03/25904 Elderly Caregiver: Procedure Note Donotpatriciainterpreter, Image - 04/03/[address] [address] XRay Report Signed Patient: Josue DawsonMR#: [id number] : 1950cct:[id number] Age/Sex: 74 / MADM Date: 04/03/25 Loc: HO.ED Attending Dr: Ordering Physician: Generic ED Physician Date of Service: 04/03/25 Procedure(s): XR chest 2V Accession Number(s): [id number] cc: Generic ED Physician; Name,Aneseh RIVERS Reason for Exam: SOB/ cough EXAMINATION: [...] acute cardiopulmonary abnormality. Electronically signed by: Berlin Willuoghby MD 04/03/2025 09:08 AM EDT RP Dictated By: Berlin Willoughby MD Signed By: <Electronically signed by Berlin Willoughby MD in OV> 04/03/25 0908 DD/ 09 TD/TT: 04/03/25 0905 Elderly Caregiver: [facility] External Provider IMG XR PROCEDURES Final Result * Influenza A B2 ID NOW (Causey) (04/03/2025 8:54 AM EDT) IDNOW SERIAL# [id number] [facility] Influenza A Negative Negative [facility] Influenza B2 Negative Negative [facility] Influenza A B2 Note See Note [facility] Comment:The Causey ID NOW In [...] GENERAL ORDERABLES Final Result Performing Organization Address [facility] Co de Phone Number [facility] [address] [place] [phone] * COVID-19 ID NOW (CAUSEY) (04/03/2025 8:54 AM EDT) IDNOW SERIAL# [id number] [facility] COVID-19 TEST Negative Negative [facility] COVID-19 NOTE See Note [facility] Comment: Results are for the [...] facilities within the [facility] and [facility] are required to report all positive results [...] GNOSTICS ORDERABLES Final Result Performing Organization Address [facility]/ZIP Co de Phone Number [facility] [address] [place] [phone] * (ABNORMAL) CBC auto differential (04/03/2025 8:54 AM EDT) White Blood Count 9.7 4.8 - 10.8 X10*3/uL [facility] Red Blood Count 5.01 4.60 - 5.80 X10*6/uL [facility] Hemoglobin 14.9 14.0 - 18.0 g/dl [facility] Hematocrit 44.0 42.0 - 52.0 % [facility] Mean Corpuscular Volume 87.8 80.0 - 98.0 fL [facility] Mean Corpuscular Hemoglobin 29.7 27.0 - 33.0 pg [facility] Mean Corpuscular HGB Conc 33.9 31.0 - 36.0 g/dl [facility] Red Cell Distribution Width 13.3 11.0 - 16.0 % [facility] Platelet Count 312 160 - 400 X10*3/uL [facility] Mean Platelet Volume 10.1 9.4 - 12.4 fL [facility] Neutrophils Percent Auto 64.8 45 - 73 % [facility] Imm Gran Pct Auto 0.9(H) 0.0 - 0.4 % [facility] Lymphocytes Percent Auto 25.2 20 - 40 % [facility] Monocytes Percent Auto 6.6 2 - 11 % [facility] Eosinophils Percent Auto 1.9 0 - 4 % [facility] Basophils Percent Auto 0.6 0 - 2 % [facility] NRBC Pct Auto 0.0 0.0 - 0.2 /100WBC [facility] Neutrophils Absolute Auto 6.3 2.0 - 8.3 x10*3/uL [facility] Imm Gran Abs Auto 0.09(H) 0.00 - 0.03 X10*3/uL [facility] Lymphocytes Absolute Auto 2.4 1.2 - 4.9 X10*3/uL [facility] Monocytes Absolute Auto 0.6 0.1 - 1.2 X10*3/uL [facility] Eosinophils Absolute Auto 0.2 0.0 - 0.4 X10*3/uL [facility] Basophils Absolute Auto 0.1 0.0 - 0.2 X10*3/uL [facility] NRBC Abs Auto 0.000 0.0 - 0.012 X10*3/uL [facility] 04/03/2025 8:54 AM EDT 04/03/2025 8:59 AM EDT us Generic External Data Provider LAB BLOOD ORDERAB LES Final Result [facility] [address] [place] [phone] * (ABNORMAL) Comprehensive Metabolic Panel (04/03/2025 8:54 AM EDT) Sodium 137 135 - 145 mmol/L [facility] Potassium 4.3 3.3 - 5.1 mmol/L [facility] Comment:Slight Hemolysis.Int erpret result with caution. Chloride 103 96 - 108 mmol/L [facility] Carbon Dioxide 27 22 - 29 mmol/L [facility] Anion Gap 11(L) 12 - 20 [facility] Urea Nitrogen (BUN) 21(H) 9 - 16 mg/dL [facility] Creatinine, Serum 1.14 0.5 - 1.4 mg/dL [facility] Creatinine Clr Calc Pharmacy 62.4 [facility] Comment:eGFR (calculated fro m the MDRD study equation) and eCrCl(calculated from the Cockcroft-Gault equation) are based ondifferent parameters and may not yield comparable results.If eCrCl result is absurd, please check patient'sheight/weight. Estimated Glomerular Filt Rate >60 [facility] Comment:Chronic Kidney Disea se: Estimated GFR < 60 mL/min/1.74y4Dnkqee Kidney Disease: Estimated GFR < 15 mL/min/1.73m2 Glucose 253(H) 60 - 115 mg/dL [facility] Calcium 9.8 8.4 - 10.2 mg/dL [facility] Bilirubin, Total 0.4 0.0 - 1.0 mg/dL [facility] Aspartate Amino Transferase 55(H) 5 - 37 U/L [facility] Comment:Slight Hemolysis.Int erpret result with caution. Alanine Aminotransferase 74(H) 0 - 40 U/L [facility] Total Protein 7.5 6.5 - 8.0 g/dL [facility] Albumin Level 3.9 3.5 - 5.0 g/dL [facility] Alkaline Phosphatase 63 39 - 117 U/L [facility] 04/03/2025 8:54 AM EDT 04/03/2025 8:59 AM EDT Generic External Data Provider LAB BLOOD ORDERAB LES Final Result [facility] [address] [place] [phone] * (ABNORMAL) POCT Glucose (03/06/2025 11:00 [...] % Blood 02/04/2025 12:2 6 PM EDT us Aneesh Oliveira MD POINT OF CARE TEST ENTER/EDIT OR DERABLES Final Result * (ABNORMAL) Lipid Panel, Standard (11/17/2024 10:29 AM EDT) Triglycerides 129 <150 mg/dL [facility] Comment:Desirable Triglyceri de: less than 150 mg/dLBorderline High Triglyceride 150-199 mg/dLHigh Triglyceride: 200-499 mg/dLVery High Triglyceride: greater than or equal to 5OO mg/dL Cholesterol 179 <200 mg/dL [facility] Comment:Desirable Cholestero l: less than 200 mg/dLBorderline High Cholesterol: 200-239 mg/dLHigh Cholesterol: greater than 239 mg/dL LDL Cholesterol Calculated 115(H) <100 mg/dL [facility] Comment:Desirable LDL: less than 100 mg/dLNear Optimal/Above Optimal LDL: 110- 129 mg/dLBorderline High LDL: 130-159 mg/dLHigh LDL: 160-189 mg/dLVery High LDL: greater than or equal to 190 mg/dL HDL Cholesterol 39(L) >40 mg/dL [facility] Comment:Desirable HDL: great er than 40 mg/dL Note: This HDL assay may give artificially low results in patients with liver disease. 11/17/2024 10:2 9 AM EDT 11/17/2024 10:29 AM EDT us Generic External Data Provider LAB BLOOD ORDERAB LES Final Result [facility] [address] [place] [phone] * (ABNORMAL) Hm Colonoscopy (02/10/2023) Pathologist [facility] Colonoscopy Abnormal(A ) Normal Aneesh Oliveira MD HEALTH MAINTENANCE Final Result * HEPATITIS C AB W/REFL TO HCV RNA, QN, PCR (11/25/2020 10:49 AM EDT) HEPATITIS C ANTIBODY NON-REACT [facility]OM NON-REACT [facility] INDEX 0.00 <1.00 [facility] Comment: HCV antibody was non-reactive. There is no laboratory evidence of HCV infection. In most cases, no further action is required. However, if recent HCV exposure is suspected, a test for HCV RNA (test code 67724) is suggested. For additional information please refer to http://education.Parcel[employer].UrbanTakeover/faq/SOK69n8 (This link is being provided for informational/ educational purposes only.) 11/25/2020 10:4 9 AM EDT us Aneesh Oliveira MD HISTORICAL/NON ORDERABLE LABS Fi nal Result [facility] [address] from Last 3 Months or Most Recently Relevant to Health Maintenance Insurance [facility] STANDARD UHC DUAL COMPLETE DENTAL - [facility] Care Teams Macaroni Press Operator Relationship Specialty Start Date End Date Name, MD Aneesh [address] [place] [address] PCP - General Family Medicine 02/14/18 Sandra Rasheed PharmD [address] [place] [address] Pharmacist Internal Medicine 08/24/24
[2025-05-08 10:38] LABS: Appearance Urine Clear; Glucose Urine UA >=1000 mg/dL (Negative); PH 6.0 (5.0-9.0); Specific Gravity - Urine 1.020 (1.005-1.025); UMIC TRIGGER UA YES
[2025-05-08 11:06] LABS: Anion Gap 14 (12-20); Blood Urea Nitrogen 31 mg/dL (9-16); Calcium 10.9 mg/dL (8.4-10.2); Carbon Dioxide 25 mmol/L (22-29); Chloride 102 mmol/L (96-108); Estimated Glomerular Filt Rate 59; Potassium 4.3 mmol/L (3.3-5.1); Sodium 137 mmol/L (135-145)
== END 2025-05-08 09:06 | disposition home or self-care (01) ==
LOC: HO.LAB 09:05
PROVIDERS: PCP Internal Medicine Geriatric Medicine; Visit Provider Internal Medicine Hypertension Specialist
DX: I10 Essential (primary) hypertension (principal); E11.65 Type 2 diabetes mellitus with hyperglycemia; Z79.4 Long term (current) use of insulin
CPT/HCPCS: 36415; 80048; 81001; 81003

== ENCOUNTER 2025-05-14 08:50 | Outpatient (AMB) | payer OTHER, SELFPAY ==
--- OUTSIDE RECORDS SUMMARY | 2025-05-14 09:03 | XMS_ITS | Encounter Summary ---
Author Organization [email or web address] Address [address] [facility] [address] [place] [address] Care Team Providers Care Industrial Engineering Name Role Phone Name, Aneesh RIVERS Primary Care Provider [phone] Sandra Rasheed PharmD Unavailable [phone] Reason for Visit * Reason Comments Med Refill Encounter Details Date Type Department Care Team ([facility] st Contact Info) Description 08/19/2023 Refill [facility] MEDICINE [address] [place] [address] Name, MD Aneesh [address] [place] [address] Social History Tobacco Use Types Packs/Day Years [...] Description 05/29/2025 9:30 AM EST Office Visit [facility] MEDICINE [address] [place] [phone] Name, MD Aneesh [address] [place] [phone] 06/03/2025 9:30 AM EST Office Visit [facility] OPTOMETRY [address] [place] [address] Nathanael, Jayne, OD [address] [place] [address] 07/02/2025 10:00 AM EST Medication Management [facility] MEDICINE [address] [place] [phone] Sandra Rasheed PharmD [address] [place] [phone] documented as of this encounter Visit Diagnoses Not on filedocumented in this encounter Care Teams Industrial Engineering Relationship Specialty Start Date End Date Name, MD Aneesh [address] [place] [phone] PCP - General Family Medicine 02/14/18 Sandra Rasheed, PharmD [address] [place] [phone] Pharmacist Internal Medicine 08/24/24 documented as of this encounter
--- OUTSIDE RECORDS SUMMARY | 2025-05-14 09:03 | XMS_ITS | Encounter Summary ---
Author Organization [employer] Address [address] [facility] 7t [place] [address] Care Team Providers Care Safety Trainer Name Role Phone Name, Aneesh RIVERS Primary Care Provider [phone] Sandra Rasheed PharmD Unavailable [phone] Reason for Visit * Reason Onset Date Comments FYI 08/23/2023 Encounter Details Date Type Department Care Team ([facility] st Contact Info) Description 08/23/2023 Telephone [facility] MEDICINE [address] [place] [address] Name, MD Aneesh 230 [place] [address] FY Social History Tobacco Use Types Packs/Day [...] 3:03 PM EDT Tc from Leidy with [facility] endocrinology stating pt no longer wants to continue care with them. Leidy stated pt no showed 3 appts in a row and when asked about it pt said it was due to to transportation. Pt claims they are irresponsible and that they don't communicate. Pt stated he will continue care with PCP. If any questions please contact Leidy at [phone]. documented in this encounter Plan of Treatment Upcoming Encounters Date Type Department Care Team (Late st Contact Info) Description 05/29/2025 9:30 AM EST Office Visit [facility] MEDICINE [address] [place] [address] Name, MD Aneesh [address] [place] [address] 06/03/2025 9:30 AM EST Office Visit [facility] OPTOMETRY [address] [place] [address] Jayne Huffman, OD 230 [place] [address] 07/02/2025 10:00 AM EST Medication Management [facility] MEDICINE 230 [place] [address] Sandra Rasheed, PharmD 230 [place] [address] documented as of this encounter Visit Diagnoses Not on filedocumented in this encounter Additional Health Concerns Assessment Noted Time PHQ-9 Depression Total Score: 4 08/23/19 24 9:44 AM EDT documented as of this encounter Care Teams Safety Trainer Relationship Specialty Start Date End Date Name, MD Aneesh [address] [place] [address] PCP - General Family Medicine 02/14/18 Sandra Rasheed, AnkushD [address] [place] [address] Pharmacist Internal Medicine 08/24/24 documented as of this encounter
--- OUTSIDE RECORDS SUMMARY | 2025-05-14 09:03 | XMS_ITS | Encounter Summary ---
Author Organization [employer] Address [address] [facility] 7t [place] [address] Care Team Providers Care Diesel Truck Technician Name Role Phone Name, Aneesh RIVERS Primary Care Provider [phone] Sandra Rasheed PharmD Unavailable [phone] Encounter Details Date Type Department Care Team (Late st Contact Info) Description 03/23/2023 Orders Only [facility] MED & PEDS [address] [place], [place] [phone] Amber Brantley LPN Social History Tobacco Use [...] AM EST Office Visit [facility] MEDICINE [address] [place] [address] Name, MD Aneesh [address] [place] [address] 06/03/2025 9:30 AM EST Office Visit [facility] OPTOMETRY [address] [place] [address] Nathanael, Jayne, OD 230 [place] [address] 07/02/2025 10:00 AM EST Medication Management [facility] MEDICINE [address] [place] [address] Sandra Rasheed PharmD [address] [place] [address] documented as of this encounter Visit Diagnoses Not on filedocumented in this encounter Care Teams Diesel Truck Technician Relationship Specialty Start Date End Date Name, MD Aneesh [address] [place] [address] PCP - General Family Medicine 02/14/18 Sandra Rasheed PharmD [address] [place] [address] Pharmacist Internal Medicine 08/24/24 documented as of this encounter
--- OUTSIDE RECORDS SUMMARY | 2025-05-14 09:03 | XMS_ITS | Encounter Summary ---
Author Organization [employer] Address 75 [facility] 7t [place] [address] Care Team Providers Care Extrusion Press Supervisor Name Role Phone Name, Aneesh RIVERS Primary Care Provider [phone] Sandra Rasheed PharmD Unavailable [phone] Reason for Visit * Reason Comments Med Refill Encounter Details Date Type Department Care Team ([facility] st Contact Info) Description 12/20/2024 Refill [facility] MEDICINE [address] [place] [address] Name, MD Aneesh [address] [place] [address] Left leg pain; Chronic low back pain, [...] Description 05/29/2025 9:30 AM EST Office Visit [facility] MEDICINE [address] [place] [address] Name, MD Aneesh [address] [place] [address] 06/03/2025 9:30 AM EST Office Visit [facility] OPTOMETRY [address] [place] [address] Nathanael, Jayne, OD 230 [place] [address] 07/02/2025 10:00 AM EST Medication Management [facility] MED[facility]INE [address] [place] [address] Sandra Rasheed, PharmD [address] [place] [address] documented as of this encounter Visit Diagnoses Diagnosis Left leg pain Pain in soft tissues of limb Chronic low back pain, unspecified back pain laterality, unspecified whether sciatica present documented in this encounter Additional Health Concerns Assessment Noted Time PHQ-9 Depression Total Score: 4 08/23/19 24 9:44 AM EDT documented as of this encounter Care Teams Extrusion Press Supervisor Relationship Specialty Start Date End Date Name, MD Aneesh [address] [place] [address] PCP - General Family Medicine 02/14/18 Sandra Rasheed PharmD [address] [place] [address] Pharmacist Internal Medicine 08/24/24 documented as of this encounter
--- OUTSIDE RECORDS SUMMARY | 2025-05-14 09:03 | XMS_ITS | Encounter Summary ---
Author Organization [employer] Address 75 [facility] 7t [place] [address] Care Team Providers Care Tool Repairer Name Role Phone Name, Aneesh RIVERS Primary Care Provider [phone] Sandra Rasheed PharmD Unavailable [phone] Reason for Visit * Reason Comments Med Refill Encounter Details Date Type Department Care Team ([facility] st Contact Info) Description 06/25/2024 Refill [facility] MEDICINE [address] [place] [address] Name, MD Aneesh 230 [place] [address] Hypertension, unspecified type; Prostatism; Type 2 diabetes mellitus with hyperglycemia (CMS/HCC); 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) Social History Tobacco Use Types Packs/Day [...] Description 05/29/2025 9:30 AM EST Office Visit [facility] MEDICINE 230 [place] [address] Name, MD Aneesh 230 [place] [address] 06/03/2025 9:30 AM EST Office Visit [facility] OPTOMETRY [address] [place] [address] Nathanael, Jayne, OD 230 [place] [address] 07/02/2025 10:00 AM EST Medication Management [facility] MEDICINE 230 [place] [address] Sandra Rasheed, Javi [address] [place] [address] documented as of this encounter Visit Diagnoses Diagnosis Hypertension, unspecified type Prostatism Unspecified hyperplasia of prostate without urinary obstruction and other lower urinary tract symptoms (LUTS) Type 2 diabetes mellitus with hyperglycemia (HCC) 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/HCC) (HCC) documented in this encounter Additional Health Concerns Assessment Noted Time PHQ-9 Depression Total Score: 4 08/23/19 24 9:44 AM EDT documented as of this encounter Care Teams Tool Repairer Relationship Specialty Start Date End Date Name, MD Aneesh [address] [place] [address] PCP - General Family Medicine 02/14/18 Sandra Rasheed PharmD [address] [place] [address] Pharmacist Internal Medicine 08/24/24 documented as of this encounter
--- OUTSIDE RECORDS SUMMARY | 2025-05-14 09:03 | XMS_ITS | Encounter Summary ---
Author Organization [employer] Address 75 [facility] 7t [place] [address] Care Team Providers Care Hash Slinger Name Role Phone Name, Aneesh RIVERS Primary Care Provider [phone] Sandra Rasheed PharmD Unavailable [phone] Reason for Visit * Reason Comments Med Refill Encounter Details Date Type Department Care Team ([facility] st Contact Info) Description 05/02/2024 Refill [facility] MEDICINE [address] [place] [address] Name, MD Aneesh 230 [place] [address] Chronic constipation Social History Tobacco Use Types [...] Description 05/29/2025 9:30 AM EST Office Visit [facility] MEDICINE [address] [place] [address] Aneesh Oliveira MD 230 [place] [address] 06/03/2025 9:30 AM EST Office Visit [facility] OPTOMETRY [address] [place] [address] Nathanael, Jayne, OD 230 [place] [address] 07/02/2025 10:00 AM EST Medication Management [facility] MEDICINE 230 [place] [address] Sandra Rasheed, PharmD 230 [place] [address] documented as of this encounter Visit Diagnoses Diagnosis Chronic constipation Unspecified constipation documented in this encounter Additional Health Concerns Assessment Noted Time PHQ-9 Depression Total Score: 4 08/23/19 24 9:44 AM EDT documented as of this encounter Care Teams Hash Slinger Relationship Specialty Start Date End Date Aneesh Oliveira MD [address] [place] [address] PCP - General Family Medicine 02/14/18 Sandra Rasheed, Javi [address] [place] [phone] Pharmacist Internal Medicine 08/24/24 documented as of this encounter
--- OUTSIDE RECORDS SUMMARY | 2025-05-14 09:03 | XMS_ITS | Encounter Summary ---
Author Organization [employer] Address 75 [facility] 7t [place] [address] Care Team Providers Care Credit Operations Specialist Name Role Phone Name, Aneesh RIVERS Primary Care Provider [phone] Sandra Rasheed PharmD Unavailable [phone] Reason for Visit * Reason Comments Med Refill Encounter Details Date Type Department Care Team ([facility] Contact Info) Description 04/09/2024 Refill [facility] MED & PEDS [address] [place], [place] [phone] Name, MD Aneesh [address] [place] [address] Chronic low back pain, unspecified back pain [...] Description 05/29/2025 9:30 AM EST Office Visit [facility] MEDICINE [address] [place] [address] Name, MD Aneesh [address] [place] [address] 06/03/2025 9:30 AM EST Office Visit [facility] OPTOMETRY [address] [place] [address] Nathaneal, Jayne, OD 230 [place] [address] 07/02/2025 10:00 AM EST Medication Management [facility] MED[facility]INE [address] [place] [address] Sandra Rasheed, PharmD [address] [place] [address] documented as of this encounter Visit Diagnoses Diagnosis Chronic low back pain, unspecified back pain laterality, unspecified whether sciatica present documented in this encounter Additional Health Concerns Assessment Noted Time PHQ-9 Depression Total Score: 4 08/23/19 24 9:44 AM EDT documented as of this encounter Care Teams Credit Operations Specialist Relationship Specialty Start Date End Date Name, MD Aneesh [address] [place] [address] PCP - General Family Medicine 02/14/18 Sandra Rasheed, Javi [address] [place] [address] Pharmacist Internal Medicine 08/24/24 documented as of this encounter
--- OUTSIDE RECORDS SUMMARY | 2025-05-14 09:03 | XMS_ITS | Encounter Summary ---
Author Organization [employer] Address 75 [facility] 7t [place] [address] Care Team Providers Care Compounding Scaler Name Role Phone Name, Aneesh RIVERS Primary Care Provider [phone] Sandra Rasheed PharmD Unavailable [phone] Reason for Visit * Reason Comments Med Refill Encounter Details Date Type Department Care Team ([facility] st Contact Info) Description 08/18/2023 Refill [facility] MEDICINE [address] [place], [place] [phone] Name, MD Aneesh 230 [place] [address] Social History Tobacco Use Types Packs/Day Years [...] Description 05/29/2025 9:30 AM EST Office Visit [facility] MEDICINE [address] [place] [address] Name, MD Aneesh [address] [place] [address] 06/03/2025 9:30 AM EST Office Visit [facility] OPTOMETRY [address] [place] [address] Nathanael, Jayne, OD 230 [place] [address] 07/02/2025 10:00 AM EST Medication Management [facility] MEDICINE [address] [place] [address] Sandra Rasheed PharmD [address] [place] [address] documented as of this encounter Visit Diagnoses Not on filedocumented in this encounter Care Teams Compounding Scaler Relationship Specialty Start Date End Date Name, MD Aneesh [address] [place] [address] PCP - General Family Medicine 02/14/18 Sandra Rasheed, PharmD [address] [place] [address] Pharmacist Internal Medicine 08/24/24 documented as of this encounter
--- OUTSIDE RECORDS SUMMARY | 2025-05-14 09:03 | XMS_ITS | Data Portability ---
Author Organization [place] - [facility], Allergy Address [address] [facility] [address] [place] [phone] Care Team Providers Care Materials And Processes Manager Name Role Phone NAME, LAURENT Primary Care Provider [phone] Assessment Encounter Date Assessment Date Assessment LastModified [...] vocal quality. I recommended he see a security ambassador, voice specalist, to evaluate him and see if he would be a good candidate for a more permanent medialization procedure. Patient is willing and interested to travel to [place] to hear options. - Referral to [facility] Otolaryngology - Dr. Stafford or Dr. Machuca for discussion [email or web address] Not available 05/04/2024 08:27:45 Plan of Treatment Reminders Order Date Submit Date Provider Last Modified By Organization Details Last Modified Time Details Appointments None recorded. Lab None recorded. Referral otolaryngol ogist referral - Attn: Birgit. Dr. Machuca or Dr. Stafford - bilateral vocal cord paralysis. 2023 024 [email or web address] 2 [facility] Otolaryngolog y, [address] [facility], [facility], [place], [address], 4 10:41:11 Procedures None recorded. Surgeries None recorded. Imaging None recorded. Medication Orders None recorded. Patient TargetsNo targets recorded. Patient InstructionsNo instructions recorded. Reason for Referral Shipping Specialist Referral fo r Dysphonia Attn: Birgit. Dr. Machuca or Dr. Stafford - bilateral vocal cord paralysis. 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 Paralysis of vocal cords and larynx, unspecifie d; Note: Date Diagnosed: 12/25/2018 2:49 PM (J38.00) Not Available [facility] 4 03:24:49 Dysphonia 88732805 Active 2018 Hoarseness ; Note: Date Diagnosed: 12/25/2018 2:49 PM (R49.0) Not Available [facility] 4 03:24:49 Simple goiter 618842029 Active 2018 Goiter NOS; Note: Date Diagnosed: 12/25/2018 2:49 PM (E04.9) Not Available [facility] 4 03:24:49 Paralysis of larynx 92697920 Active 2023 RYAN MAYA MD [address] [place] [address], [phone] , [facility] 4 08:24:41 Problem Notes None recorded. Procedures Surgical History Date Name Laterality Status Provider Name and Address Organization Details Recorded Time 05/03/20 24 Fiberoptic Laryngoscopy (Comprehensive) completed RYAN MAYA MD [address] [place] [address], [place], [phone], [facility] 05/04/2024 08:24:07 Imaging Results None recorded. Procedure [...] Updated DateTime 05/03/2024 167.64 cm 34.7 kg/m2 03669.36 g Dimagiovanny Ramírez [place] - [facility] 05/03/2024 13:28:04 Social History None recorded. Functional Status None recorded. Mental Status None recorded. Family History Nothing Reported. Medical History No medical history recorded. Past Encounters Encounter ID Performer Location Encounter Start Date Encounter Closed Date Diagnosis/Indication Diagnosis SNOMED-CT Code Diagnosis ICD10 Code Diagnosis IMO Codes Diagnosis Note [id number] RYAN MAYA MD [facility] [address] [phone] 05/03/2024 13:04:26 05/03/2024 16:54:58 Paralysis of larynx 34062048 J38.02 Dysphonia 14634192 R49.9 Health Concerns Section Related Observation LastModified by Organization Detai ls LastModified Time None Recorded Concern Status LastModified by Organization Details LastModified Time None Recorded Advance Directives Directive None Recorded Payers Insurance Date Sequence Insurance Name Policy Number Policy Hood Covered Member ID Hood Member ID Guarantor Name 05/03/2024 1 [facility] (MEDICARE REPLACEMENT/ ADVANTAGE - HMO) Josue Mace [id number] Josue Mace 05/02/2024 2 MEDICAID-[place]: [facility] Josue Mace [id number] Josue Mace Notes Date Note Type Note Provider Name and Address Organization Details Recorded Time 05/03/2024 text/html ROS as noted in the HPI 73yo gentleman who presents today for evaluation of bilateral vocal cord paralysis and dysphonia. He has had difficulty with his voice for about 5 years. He underwent a traumatic intubation at [facility] in 2018 in the setting of an anaphylactic event. Following, this resulted in dysphonia and dyspnea with exertion. He was seen by otolaryngology in [place] - Dr. John Coppola. At that time, [...] aspirin 81 & clopidogrel. RYAN MAYA MD [address] [place] [address], [place], [phone], [place] - [facility] 05/04/2024 20:31:01
--- OUTSIDE RECORDS SUMMARY | 2025-05-14 09:03 | XMS_ITS | Encounter Summary ---
Author Organization [employer] Address [address] [facility] 7t [place] [address] Care Team Providers Care Weigher Bulker Name Role Phone Name, Aneesh RIVERS Primary Care Provider [phone] Sandra Rasheed PharmD Unavailable [phone] Reason for Visit * Reason Comments Med Refill Encounter Details Date Type Department Care Team ([facility] st Contact Info) Description 04/10/2025 Refill [facility] MEDICINE [address] [place] [address] Name, MD Aneesh 230 [place] [address] Left leg pain; Chronic low back pain, [...] Description 05/29/2025 9:30 AM EST Office Visit [facility] [address] [place] [address] Name, MD Aneesh [address] [place] [address] 06/03/2025 9:30 AM EST Office Visit [facility] OPTOMETRY [address] [place] [address] Nathanael, Jayne, OD 230 [place] [address] 07/02/2025 10:00 AM EST Medication Management [facility] [address] [place] [address] Sandra Rasheed, PharmD 230 [place] [address] documented as of this encounter Visit Diagnoses Diagnosis Left leg pain Pain in soft tissues of limb Chronic low back pain, unspecified back pain laterality, unspecified whether sciatica present documented in this encounter Additional Health Concerns Assessment Noted Time PHQ-9 Depression Total Score: 5 03/06/20 11:44 AM EDT documented as of this encounter Care Teams Weigher Bulker Relationship Specialty Start Date End Date Name, MD Aneesh 230 [place] [address] PCP - General Family Medicine 02/14/18 Sandra Rasheed PharmD 230 [place] [address] Pharmacist Internal Medicine 08/24/24 documented as of this encounter
--- OUTSIDE RECORDS SUMMARY | 2025-05-14 09:03 | XMS_ITS | Clinical Summary ---
Author Organization [employer] Address [address] [place] [address] Care Team Providers Care Machine Taper Name Role Phone Name, Aneesh RIVERS Primary Care Provider [phone] Sandra Rasheed PharmD Unavailable [phone] Allergies Active Allergy Reactions Criticality Noted [...] ML BY MOUTH EVERY DAY 250 mL Active Alcohol Swabs (Easy Touch Alcohol Prep [...] 2 diabetes mellitus with hyperglycemia ([facility]) Use to inject insulin 4 times daily 200 each 05/01/20 10:31 AM EST 025 Active glucose blood (ThrowMotionTouch Ultra) test stripIndications :Type 2 diabetes mellitus with hyperglycemia ([facility]) TEST BLOOD SUGAR THREE TIMES DAILY 100 strip Active metFORMIN (Glucophage) 1000 MG tabletIndication s:Type 2 diabetes mellitus with other specified complication, without long-term current use of insulin ([facility]) TAKE 1 TABLET BY MOUTH TWICE DAILY [...] long-term current use of insulin ([facility]) Inject 0.75 mL (2 mg) under the skin 1 (one) time per week. 3 mL 025 Active rosuvastatin (Crestor) 20 MG tabletIndication s:Type 2 diabetes mellitus with hyperglycemia, with long-term current use of insulin ([facility]) Take 1 tablet (20 mg) by mouth Once per day. 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),senior care (current) use of insulin (CMS/HCC) (HCC) INJECT [...] injectionIndicat ions:Type 2 diabetes mellitus with hyperglycemia (HCC),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 (CMS/HCC) (HCC) INJECT [...] breakfast. 30 tablet 11 024 2024 Discontinued gabapentin (Neurontin) 100 MG [...] Encounters Date Type Department Care Team Description 05/08/2025 Results Follow-Up [facility] [address] [facility] [place] [address] Aneesh Oliveira MD Urinalysis Complete, Basic Metabolic Panel 05/08/2025 Orders Only GENERIC EXTERNAL DATA DEPARTMENT Provider, Generic External Data 04/23/2025 Telephone [facility] [facility] [place] [address] Sandra Rasheed, PharmD 04/22/2025 Refill [facility] [place] [address] Aneesh Oliveira MD 04/18/2025 Orders Only GENERIC EXTERNAL DATA DEPARTMENT Provider, [facility] External Data 04/16/2025 Refill [facility] [address] [facility] [place] [address] Aneesh Oliveira MD Left leg pain; Chronic low back pain, unspecified back pain laterality, unspecified whether sciatica present 04/10/2025 Refill [facility] [address] [facility] [place] [address] Aneesh Oliveira MD Left leg pain; Chronic low back pain, unspecified back pain laterality, unspecified whether sciatica present 04/10/2025 Refill [facility] [place] [address] Sandra Rasheed, PharmD 04/04/2025 Telephone [facility] [address] [place] [address] Aneesh Oliveira MD 04/04/2025 Telephone [facility] [address] [place] [address] Aneesh Oliveira MD Transition Of Care (Tcm) 04/03/2025 Orders Only [facility] External Provider, [facility] 04/01/2025 Refill [facility] [place] [address] Aneesh Oliveira MD Type 2 diabetes mellitus with other specified complication, without long-term current use of insulin (HCC) (Primary Dx) 03/06/2025 11:00 AM EDT Office Visit [facility] [address] [place] [address] Aneesh Oliveira MD Type 2 diabetes mellitus with other specified complication, without long-term current use of insulin (CMS/HCC) (Primary Dx); Stage 3a chronic kidney disease (CMS/HCC); Hypertension, unspecified type; Chronic low back pain, unspecified back pain laterality, unspecified whether sciatica present; Generalized osteoarthritis; Encounter for immunization 03/06/2025 Travel 02/18/2025 Telephone [facility] [address] [place], [place] [phone] Aneesh Oliveira MD Chart Prep from Last 3 Months [...] Answer Date Recorded Internet Access Q1 Yes 05/08/2025 Internet Access Q2 Not on file 05/08/2025 Sex and Gender Information Value Date Recorded [...] 05/29/2025 9:30 AM EST Office Visit [facility] [address] [place] [address] Name, MD Aneesh [address] [place] [address] 06/03/2025 9:30 AM EST Office Visit [facility] [address] [place] [address] Nathanael, Jayne, OD [address] [place] [address] 07/02/2025 10:00 AM EST Medication Management [facility] [address] [place] [address] PuiaSandra, PharmD [address] [place] [address] Health Maintenance Due Date Last Done Comments [...] on patient's age to complete this topic Goals Goal Patient Goal Type Associated Problems Recent Progress Patient-Stated? Author Help patients manage their type 2 diabetes Care Plan Help patients manage their type 2 diabetes Madeline, MD Aneesh Weekly blood pressure task Care Plan Weekly blood pressure task Madeline, Aenesh, MD Help patients manage their type 2 diabetes Care Plan Help patients manage their type 2 diabetes MadelineAneesh Oliveira MD Patient has diabetic eye disease Care Plan Patient has diabetic eye disease MadelineAneesh Oliveira MD Help patients manage their type 2 diabetes Care Plan Help patients manage their type 2 diabetes MadelineAneesh Oliveira MD Patient has chronic kidney disease Care Plan Patient has chronic kidney disease Aneesh Reich MD Weekly blood pressure task Care Plan Weekly blood pressure task MadelineAneesh Oliveira MD Weekly blood pressure task Care Plan Weekly blood pressure task MadelineAneesh Oliveira MD Patient has diabetic eye disease Care Plan Patient has diabetic eye disease MadelineAneesh Oliveira MD Patient has diabetic eye disease Care Plan Patient has diabetic eye disease MadelineAneesh Oliveira MD Patient has chronic kidney disease Care Plan Patient has chronic kidney disease MadelineAneesh Oliveira MD Patient has chronic kidney disease Care Plan Patient has chronic kidney disease MadelineAneesh Oliveira MD Procedures Procedure Name Priority Date/Time Associated Diagnosis Comments BASIC METABOLIC PANEL Routine 05/08/2025 9:19 AM EST URINALYSIS, COMPLETE Routine 05/08/2025 9:14 AM EST BASIC METABOLIC PANEL Routine 04/18/2025 8:11 AM EST CBC Routine 04/18/2025 8:11 AM EST US ABDOMEN COMPLETE Routine 04/15/2025 2 :54 PM EST VAS US LOWER EXTREMITY ARTERIAL DUPLEX BILATERAL WITH [...] hyperglycemia, with long-term current use of insulin (CMS/[facility]) LIPID PANEL, STANDARD Routine 11/17/2024 10:29 AM EDT HM COLONOSCOPY Routine 02/10/2023 PANORAMIC RADIOGRAPHIC IMAGE Routine 08/26/2021 12:00 AM EDT ZZZ HISTORICAL HEPATITIS C AB W/REFL TO HCV RNA, QN, PCR Routine 11/25/2020 10:49 AM EDT INTRAORAL - COMPLETE SERIES OF RADIOGRAPHIC IMAGES Routine 04/03/2009 12:00 AM EDT from Last 3 Months or Most Recently Relevant to Health Maintenance Results * (ABNORMAL) Basic Metabolic Panel (05/08/2025 9:19 AM EST) Only the most recent of2 resultswithin the time period is included. Sodium 137 135 - 145 mmol/L [facility] Potassium 4.3 3.3 - 5.1 mmol/L [facility] Comment:Slight Hemolysis.Int erpret result with caution. Chloride 102 96 - 108 mmol/L [facility] Carbon Dioxide 25 22 - 29 mmol/L [facility] Anion Gap 14 12 - 20 [facility] Urea Nitrogen (BUN) 31(H) 9 - 16 mg/dL [facility] Creatinine, Serum 1.20 0.5 - 1.4 mg/dL [facility] Estimated Glomerular Filt Rate 59 [facility] Comment:Chronic Kidney Disea se: Estimated GFR < 60 mL/min/[id number] Kidney Disease: Estimated GFR < 15 mL/min/1.73m2 Glucose 268(H) 60 - 115 mg/dL [facility] Calcium 10.9(H) 8.4 - 10.2 mg/dL [facility] 05/08/2025 9:19 AM EST 05/08/2025 9:19 AM EST us Generic External Data Provider LAB BLOOD ORDERAB LES Final Result Performing Organization Address [facility] Co de Phone Number [facility] [address] [place] [address] [phone] * (ABNORMAL) Urinalysis Complete (05/08/2025 9:14 AM EST) Color Urine Yellow [facility] Appearance Urine Clear [facility] PH 6.0 5.0 - 9.0 [facility] Glucose Urine UA >=1000(A) Negative mg/dL [facility] Urine Blood Negative Negative [facility] Specific [place] - Urine 1.020 1.005 - 1.025 [facility] Urine Protein 100 (2+)(A) Neg-Trace mg/dL [facility] Urine Ketones Negative Negative mg/dL [facility] Nitrite Urine Negative Negative [facility] Leukocyte Esterase Urine Negative Negative [facility] RBC Urine 0-2 0 - 2 /HPF [facility] Urine WBC 0-5 0 - 5 /HPF [facility] Urine Squamous Epithelial Cell 0-2 0 - 2 /HPF [facility] Urine Bacteria None Seen None Seen [facility] Hyaline Casts, Urine 0-2 0 - 2 /LPF [facility] 05/08/2025 9:14 AM EST 05/08/2025 9:53 AM EST us Generic External Data Provider LAB URINE ORDERAB LES Final Result [facility] [address] [place] [address] [phone] * CBC (04/18/2025 8:11 AM EST) White Blood Count 10.3 4.8 - 10.8 X10*3/uL [facility] Red Blood Count 5.04 4.60 - 5.80 X10*6/uL [facility] Hemoglobin 14.6 14.0 - 18.0 g/dl [facility] Hematocrit 45.5 42.0 - 52.0 % [facility] Mean Corpuscular Volume 90.3 80.0 - 98.0 fL [facility] Mean Corpuscular Hemoglobin 29.0 27.0 - 33.0 pg [facility] Mean Corpuscular HGB Conc 32.1 31.0 - 36.0 g/dl [facility] Red Cell Distribution Width 13.2 11.0 - 16.0 % [facility] Platelet Count 305 160 - 400 X10*3/uL [facility] Mean Platelet Volume 10.3 9.4 - 12.4 fL [facility] NRBC Pct Auto 0.0 0.0 - 0.2 /100WBC [facility] NRBC Abs Auto 0.000 0.0 - 0.012 X10*3/uL [facility] 04/18/2025 8:11 AM EST 04/18/2025 8:11 AM EST us Generic External Data Provider LAB BLOOD ORDERAB LES Final Result [facility] [address] [place] [address] [phone] * US Abdomen Complete (04/15/2025 2:54 PM EST) Anatomical Region Laterality Modality Abdomen Ultrasound 04/15/2025 2:54 PM EST Narrative 04/15/2025 2:56 PM EST [address] [address] Ultrasound Report Signed Patient: Josue Dawson MR#: [id number] : 1950 Acct:[id number] Age/Sex: 74 / M ADM Date: 04/15/25 Loc: HO.US Attending Dr: Toma Hernández MD Ordering Physician: Toma Hernández MD Date of Service: 04/15/25 Procedure(s): US abdomen complete Accession Number(s): [id number] cc: Name,Aneesh RIVERS; Toma Hernández MD Reason [...] OV> 04/15/25 1455 DD/ 53 TD/TT: 04/15/251453 Wig Sales Consultant: Procedure Note Donotuseinterpreter, Image - 04/15/[address] [address] Ultrasound Report Signed Patient: Sylvia Dawson#: [id number] : 1Acct:[id number] Age/Sex: 74 / MADM Date: 04/15/25 Loc: HO.US Attending Dr: Toma Hernández MD Ordering Physician: Toma Hernández MD Date of Service: 04/15/25 Procedure(s): US abdomen complete Accession Number(s): [id number] cc: Name,Aneesh RIVERS; Toma Hernández MD Reason [...] 04/15/25 1455 DD/ 1454 TD/TT: 04/15/25 1454 Wig Sales Consultant: us [facility] External Provider IMG US PROCEDURES Final Result * VASC US Lower Extremity Arterial Duplex Bilateral With Baylee (04/08/2025 9:50 AM EDT) 04/08/2025 9:50 AM EDT Narrative [facility] - 04/08/2025 11:32 AM EDT [address] [address] Ultrasound Report Signed Patient: Josue Dawson MR#: [id number] : 1950 Acct:[id number] Age/Sex: 74 / M ADM Date: 04/08/25 Loc: HO.US Attending Dr: Rodney Smith MD Ordering Physician: Rodney Smith MD Date of Service: 04/08/25 Procedure(s): US arterial duplex BI w/ BAYLEE Accession Number(s): [id number] cc: Rodney Smith MD; Name,Aneesh RIVERS Reason [...] 04/08/25 1129 DD/ 0950 TD/TT: 04/08/25 1023 Wig Sales Consultant: Procedure Note Donotuseinterpreter, Image - 04/08/[address] [address] Ultrasound Report Signed Patient: Josue Dawson#: [id number] : 1950cct:[id number] Age/Sex: 74 / MADM Date: 04/08/25 Loc: HO.US Attending Dr: Rodney Smith MD Ordering Physician: Rodney Smith MD Date of Service: 04/08/25 Procedure(s): US arterial duplex BI w/ BAYLEE Accession Number(s): [id number] cc: Rodney Smith MD; Name,Aneesh RIVERS Reason [...] 04/08/25 1129 DD/ 0950 TD/TT: 04/08/25 1023 Wig Sales Consultant: [facility] External Provider CV VASC ULAR PROCEDURES Edited Result - Final [facility] [address] [place] [phone] * XR KUB and Upright 2 Views (04/03/2025 11:08 PM EDT) Anatomical Region Laterality Modality Radiographic Trang ging 04/03/2025 11:0 8 PM EDT Narrative 04/03/2025 11:10 PM EDT [place] [address] XRay Report Signed Patient: Josue Dawson MR#: [id number] : 1950 Acct:[id number] Age/Sex: 74 / M ADM Date: 04/03/25 Loc: HO.ED Attending Dr: Ordering Physician: Cherelle Peralta Date of Service: 04/03/25 Procedure(s): XR KUB Accession Number(s): [id number] cc: Cherelle Peralta; Name,Aneesh RIVERS Reason for [...] Segovia MD Signed By: <Electronically signed by Jsaon Segovia MD in OV> 04/03/252308 DD/ 07 TD/TT: 04/03/252307 Wig Sales Consultant: Procedure Note Donotuseinterpreter, Image - 04/03/[address] [address] XRay Report Signed Patient: Josue DawsonMR#: [id number] : 1950cct:[id number] Age/Sex: 74 / MADM Date: 04/03/25 Loc: .ED Attending Dr: Ordering Physician: Cherelle Peralta Date of Service: 04/03/25 Procedure(s): XR KUB Accession Number(s): [id number] cc: Cherelle Peralta; Name,Aneesh RIVERS Reason for [...] in OV> 04/03/252308 DD/ 07 TD/TT: 04/03/252307 Wig Sales Consultant: [facility] External Provider IMG XR PROCEDURES Edited Result - Final * XR Chest 2 Views (04/03/2025 9:00 AM EDT) Anatomical Region Laterality Modality Chest Radiographic Trang ging 04/03/2025 9:00 AM EDT Narrative 04/03/2025 9:10 AM EDT [place] [address] XRay Report Signed Patient: Josue Dawson MR#: [id number] : 1950 Acct:[id number] Age/Sex: 74 / M ADM Date: 04/03/25 Loc: .ED Attending Dr: Ordering Physician: Generic ED Physician Date of Service: 04/03/25 Procedure(s): XR chest 2V Accession Number(s): [id number] cc: Generic ED Physician; Name,Aneesh RIVERS Reason [...] in OV> 04/03/25907 DD/ 9 TD/TT: 04/03/25904 Wig Sales Consultant: Procedure Note Donotuseinterpreter, Image - 04/03/2025 [place] [address] XRay Report Signed Patient: Sylvia Dawson#: [id number] : 1950cct:[id number] Age/Sex: 74 / MADM Date: 04/03/25 Loc: .ED Attending Dr: Ordering Physician: Generic ED Physician Date of Service: 04/03/25 Procedure(s): XR chest 2V Accession Number(s): [id number] cc: Generic ED Physician; Name,Aneesh RIVERS Reason [...] in OV> 04/03/25907 DD/ 9 TD/TT: 04/03/25904 Wig Sales Consultant: [facility] External Provider IMG XR PROCEDURES Final Result * Influenza A B2 ID NOW (Causey) (04/03/2025 8:54 AM EDT) IDNOW SERIAL# [id number] [facility] Influenza A Negative Negative [facility] Influenza B2 Negative Negative [facility] Influenza A B2 Note See Note [facility] Comment:The Causey ID NOW In [...] LAB MICROBIOLOGY - GENERAL ORDERABLES Final Result [facility] [address] [place] [phone] * COVID-19 ID NOW (CAUSEY) (04/03/2025 8:54 AM EDT) IDNOW SERIAL# [id number] [facility] COVID-19 TEST Negative Negative [facility] COVID-19 NOTE See Note [facility] Comment: Results are for the identification of SARS-CoV2 RNA. TheSARS-CoV2 RNA is generally detectable in respiratory samplesduring the acute phase of infection. Positive results areindicative of the presence of SARS-CoV-2 RNA; clinicalcorrelation with patient history and other diagnosticinformation is necessary to determine patient infectionstatus. Positive results do not rule out bacterial infectionor co- infection with other viruses.Testing facilities within the [facility] and [facility] hospital[facility] are required to report all positive [...] use by authorized laboratories.Testing performed on the [employer] NOW utilizing NAAT. 04/03/2025 8:54 AM EDT 04/03/2025 8:59 AM EDT us Generic External Data Provider LAB MOLECULAR MAME GNOSTICS ORDERABLES Final Result [facility] [address] [place] [address] [phone] * (ABNORMAL) CBC auto differential (04/03/2025 8:54 AM EDT) White Blood Count 9.7 4.8 - 10.8 X10*3/uL [facility] Red Blood Count 5.01 4.60 - 5.80 X10*6/uL [facility] Hemoglobin 14.9 14.0 - 18.0 g/dl [facility] Hematocrit 44.0 42.0 - 52.0 % [facility] Mean Corpuscular Volume 87.8 80.0 - 98.0 fL [facility] Mean Corpuscular Hemoglobin 29.7 27.0 - 33.0 pg [facility] Mean Corpuscular HGB Conc 33.9 31.0 - 36.0 g/dl [facility] Red Cell Distribution Width 13.3 11.0 - 16.0 % [facility] Platelet Count 312 160 - 400 X10*3/uL [facility] Mean Platelet Volume 10.1 9.4 - 12.4 fL [facility] Neutrophils Percent Auto 64.8 45 - 73 % [facility] Imm Gran Pct Auto 0.9(H) 0.0 - 0.4 % [facility] Lymphocytes Percent Auto 25.2 20 - 40 % [facility] Monocytes Percent Auto 6.6 2 - 11 % [facility] Eosinophils Percent Auto 1.9 0 - 4 % [facility] Basophils Percent Auto 0.6 0 - 2 % [facility] NRBC Pct Auto 0.0 0.0 - 0.2 /100WBC [facility] Neutrophils Absolute Auto 6.3 2.0 - 8.3 x10*3/uL [facility] Imm Gran Abs Auto 0.09(H) 0.00 - 0.03 X10*3/uL [facility] Lymphocytes Absolute Auto 2.4 1.2 - 4.9 X10*3/uL [facility] Monocytes Absolute Auto 0.6 0.1 - 1.2 X10*3/uL [facility] Eosinophils Absolute Auto 0.2 0.0 - 0.4 X10*3/uL [facility] Basophils Absolute Auto 0.1 0.0 - 0.2 X10*3/uL [facility] NRBC Abs Auto 0.000 0.0 - 0.012 X10*3/uL [facility] 04/03/2025 8:54 AM EDT 04/03/2025 8:59 AM EDT us Generic External Data Provider LAB BLOOD ORDERAB LES Final Result [facility] [address] [place] [phone] * (ABNORMAL) Comprehensive Metabolic Panel (04/03/2025 8:54 AM EDT) Sodium 137 135 - 145 mmol/L [facility] Potassium 4.3 3.3 - 5.1 mmol/L [facility] Comment:Slight Hemolysis.Int erpret result with caution. Chloride 103 96 - 108 mmol/L [facility] Carbon Dioxide 27 22 - 29 mmol/L [facility] Anion Gap 11(L) 12 - 20 [facility] Urea Nitrogen (BUN) 21(H) 9 - 16 mg/dL [facility] Creatinine, Serum 1.14 0.5 - 1.4 mg/dL [facility] Creatinine Clr Calc Pharmacy 62.4 [facility] Comment:eGFR (calculated fro m the MDRD study equation) and eCrCl(calculated from the Cockcroft-Gault equation) are based ondifferent parameters and may not yield comparable results.If eCrCl result is absurd, please check patient'sheight/weight. Estimated Glomerular Filt Rate >60 [facility] Comment:Chronic Kidney Disea se: Estimated GFR < 60 mL/min/1.53i8Fcjhvv Kidney Disease: Estimated GFR < 15 mL/min/1.73m2 Glucose 253(H) 60 - 115 mg/dL [facility] Calcium 9.8 8.4 - 10.2 mg/dL [facility] Bilirubin, Total 0.4 0.0 - 1.0 mg/dL [facility] Aspartate Amino Transferase 55(H) 5 - 37 U/L [facility] Comment:Slight Hemolysis.Int erpret result with caution. Alanine Aminotransferase 74(H) 0 - 40 U/L [facility] Total Protein 7.5 6.5 - 8.0 g/dL [facility] Albumin Level 3.9 3.5 - 5.0 g/dL [facility] Alkaline Phosphatase 63 39 - 117 U/L [facility] 04/03/2025 8:54 AM EDT 04/03/2025 8:59 AM EDT us Generic External Data Provider LAB BLOOD ORDERAB LES Final Result [facility] [address] [place] [phone] [phone] * (ABNORMAL) POCT Glucose (03/06/2025 11:00 AM EDT) Glucose Blood, POC 320(A) 60 - 200 mg/dL QC Media Lot # [id number] Lot# Expiration Date Blood Capillary blood specimen / Unknown 03/06/2025 11:00 AM EDT us Aneesh Name POINT OF CARE TEST ENTER/EDIT OR DERABLES Final Result * (ABNORMAL) POCT HGB A1C (02/04/2025 12:26 PM EDT) Hemoglobin A1C 8.7(A) 4.0 - 5.7 % Blood 02/04/2025 12:2 6 PM EDT us Aneesh Name POINT OF CARE TEST ENTER/EDIT OR DERABLES Final Result * (ABNORMAL) Lipid Panel, Standard (11/17/2024 10:29 AM EDT) Triglycerides 129 <150 mg/dL [facility] Comment:Desirable Triglyceri de: less than 150 mg/dLBorderline High Triglyceride 150-199 mg/dLHigh Triglyceride: 200-499 mg/dLVery High Triglyceride: greater than or equal to 5OO mg/dL Cholesterol 179 <200 mg/dL [facility] Comment:Desirable Cholestero l: less than 200 mg/dLBorderline High Cholesterol: 200-239 mg/dLHigh Cholesterol: greater than 239 mg/dL LDL Cholesterol Calculated 115(H) <100 mg/dL [facility] Comment:Desirable LDL: less than 100 mg/dLNear Optimal/Above Optimal LDL: 110- 129 mg/dLBorderline High LDL: 130-159 mg/dLHigh LDL: 160-189 mg/dLVery High LDL: greater than or equal to 190 mg/dL HDL Cholesterol 39(L) >40 mg/dL [facility] Comment:Desirable HDL: great er than 40 mg/dL Note: This HDL assay may give artificially low results in patients with liver disease. 11/17/2024 10:2 9 AM EDT 11/17/2024 10:29 AM EDT us Generic External Data Provider LAB BLOOD ORDERAB LES Final Result [facility] [address] [place] [phone] [phone] * (ABNORMAL) Colonoscopy (02/10/2023) Colonoscopy Abnormal(A ) Normal us Aneesh Oliveira MD HEALTH MAINTENANCE Final Result * HEPATITIS C AB W/REFL TO HCV RNA, QN, PCR (11/25/2020 10:49 AM EDT) HEPATITIS C ANTIBODY NON-REACT [facility] NON-REACT [facility] INDEX 0.00 <1.00 [facility] Comment: HCV antibody was non-reactive. There is no laboratory evidence of HCV infection. In most cases, no further action is required. However, if recent HCV exposure is suspected, a test for HCV RNA (test code 60513) is suggested. For additional information please refer to http://Parsimotion.PolySpot/faq/BIT60b1 (This link is being provided for informational/ educational purposes only.) 11/25/2020 10:4 9 AM EDT us Aneesh Oliveira MD HISTORICAL/NON ORDERABLE LABS Fi nal Result [facility] [address] from Last 3 Months or Most Recently Relevant to Health Maintenance Additional Health Concerns Active Problems Noted Date Diagnosed Date Help patients manage their type 2 diabetes 05/08 Weekly blood pressure task 05/08/2025 Help patients manage their type 2 diabetes 05/08 Patient has diabetic eye disease 05/08/2025 Help patients manage their type 2 diabetes 05/08 Patient has chronic kidney disease 05/08/2025 Weekly blood pressure task 05/08/2025 Weekly blood pressure task 05/08/2025 Patient has diabetic eye disease 05/08/2025 Patient has diabetic eye disease 05/08/2025 Patient has chronic kidney disease 05/08/2025 Patient has chronic kidney disease 05/08/2025 Insurance [facility]TE DENTAL - [facility] Care Teams Machine Taper Relationship Specialty Start Date End Date Name, MD Aneesh [address] [place], [place] [phone] PCP - General Family Medicine 02/14/18 Sandra Rasheed, Javi [address] [place] [address] Pharmacist Internal Medicine 08/24/24
--- OUTSIDE RECORDS SUMMARY | 2025-05-14 09:03 | XMS_ITS | Encounter Summary ---
Author Organization [employer] Address [address] [facility] 7t [place] [address] Care Team Providers Care Art Studio Teacher Name Role Phone Name, Aneesh RIVERS Primary Care Provider [phone] Sandra Rasheed PharmD Unavailable [phone] Reason for Visit * Reason Comments Med Refill Encounter Details Date Type Department Care Team ([facility] st Contact Info) Description 01/12/2024 Refill [facility] [address] [place], [place] [phone] Name, MD Aneesh [address] [place] [address] Chronic low back pain, unspecified back pain [...] Description 05/29/2025 9:30 AM EST Office Visit [facility] [address] [place] [phone] Name, MD Aneesh [address] [place] [address] 06/03/2025 9:30 AM EST Office Visit [facility] OPTOMETRY [address] [place] [address] Nathanael, Jayne, OD [address] [place] [address] 07/02/2025 10:00 AM EST Medication Management [facility] [address] [place] [phone] Sandra Rasheed, PharmD [address] [place] [address] documented as of this encounter Visit Diagnoses Diagnosis Chronic low back pain, unspecified back pain laterality, unspecified whether sciatica present documented in this encounter Additional Health Concerns Assessment Noted Time PHQ-9 Depression Total Score: 4 08/23/19 24 9:44 AM EDT documented as of this encounter Care Teams Art Studio Teacher Relationship Specialty Start Date End Date Name, MD Aneesh [address] [place] [id number] PCP - General Family Medicine 02/14/18 Sandra Rasheed, Javi [address] [place] [phone] Pharmacist Internal Medicine 08/24/24 documented as of this encounter
--- OUTSIDE RECORDS SUMMARY | 2025-05-14 09:03 | XMS_ITS | Encounter Summary ---
Author Organization [employer] Address [address] [facility] 7[address] [place] [address] Care Team Providers Care Core Shaper Name Role Phone Name, Aneesh RIVERS Primary Care Provider [phone] Sandra Rasheed PharmD Unavailable [phone] Reason for Visit * Reason Onset Date Comments Appointment Request 07/17/2024 Encounter Details Date Type Department Care Team ([facility] st Contact Info) Description 07/17/2024 Telephone [facility] [address] [place] [address] Name, MD Aneesh [address] [place] [address] Appointment Request Social History Tobacco Use Types [...] r/s apt for 07/17/24. Contact pt at [phone] documented in this encounter Plan of Treatment Upcoming Encounters Date Type Department Care Team ([facility] st Contact Info) Description 05/29/2025 9:30 AM EST Office Visit [facility] [address] [place] [phone] Name, MD Aneesh [address] [place] [address] 06/03/2025 9:30 AM EST Office Visit [facility] OPTOMETRY [address] [place] [address] Jayne Huffman, OD [address] [place] [address] 07/02/2025 10:00 AM EST Medication Management [facility] [address] [place] [phone] Sandra Rasheed, PharmD [address] [place] [address] documented as of this encounter Visit Diagnoses Not on filedocumented in this encounter Additional Health Concerns Assessment Noted Time PHQ-9 Depression Total Score: 4 08/23/19 24 9:44 AM EDT documented as of this encounter Care Teams Core Shaper Relationship Specialty Start Date End Date Name, MD Aneesh [address] [place] [address] PCP - General Family Medicine 02/14/18 Sandra Rasheed, Javi [address] [place] [address] Pharmacist Internal Medicine 08/24/24 documented as of this encounter
--- NOTE | 2025-05-14 09:17 | HO.NEPHOV_ITS ---
Vital Signs 05/14/25 09:18 05/14/25 09:34 Height 5 ft 6 in Weight 212 lb BMI 34.2 BP 180/58 H 134/60 Blood Pressure Location Lt brachial Lt brachial Position Sitting Sitting Pulse 79 Pulse Source Pulse Oximeter Pulse Oximetry (%) 97 Oxygen Delivery Method Room Air Intake Visit Reasons: 6 MO FU Covering And Lining Supervisor Required: No Covering And Lining Supervisor Services: Covering And Lining Supervisor Offered & Declined (Daughter will translate ) Accompanied by: Daughter Allergies lisinopril (LISINOPRIL) Allergy (Severe, Verified 05/14/25 09:21) ANGIOEDEMA prednisone (PREDNISONE) Allergy (Mild, Verified 05/14/25 09:21) ITCHY Medication List - Last Reconciled 05/14/25 by Jd Painter MD aspirin 81 mg PO DAILY blood sugar diagnostic As directed canagliflozin (Invokana) 100 mg PO DAILY chlorthalidone 50 mg PO QAM clopidogrel (Plavix) 75 mg PO DAILY flash glucose scanning reader (91JinRongyle Willy 2 Ava) As directed flash glucose sensor (FreeStyle Willy 2 Sensor kit) As directed change every 14 days gabapentin 200 mg PO BID hydralazine 25 mg PO TID insulin glargine U-300 conc (Toujeo Max U-300 SoloStar) 80 units (0.2667 mL) subcut BEDTIME insulin lispro (Humalog KwikPen (U-100) Insulin) Inject 30 units before breakfast, 35 units before lunch and 35 units before dinner subcutaneously; insulin syringe-needle U-100 As directed lancets (OneTouch UltraSoft 2 Lancet) As directed lancets As directed lidocaine 5% 1 patch topical DAILY PRN metformin 1,000 mg PO BID pen needle, diabetic (UltiCare Pen Needle) USE DIRECTED FOUR TIMES DAILY rosuvastatin 20 mg PO BEDTIME semaglutide (Ozempic) 2 mg subcut QWEEK spironolactone 25 mg PO QAM tamsulosin 0.8 mg PO BEDTIME verapamil ER 120 mg PO QAM HPI Comments Details: Elderly man with a history of longstanding hypertension and diabetes mellitus with CKD. He has had episodes of acute kidney injury an currently renal function is back to baseline. Baseline creatinine is less than 1.0. He has difficult to control blood sugars. Recent A1c was 8.2%. Blood pressure has been well controlled. He has microalbuminuria. He has not any WAI inhibitor due to angioedema requiring ICU admission. 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 Helms in the past. Covering And Lining Supervisor service was used Cellulitis of left leg : s/p antibiotics 03/08/24 ;Doing better ;Seen by Dr. Smith s/p Successful plasty of left popliteal and peroneal artery on 03/07/24 04/23/24 ;c/o body pain;On statins 07/16/24 ;On ozempic- lost about 10 lbs ;Did not take anti hypertensives today 09/25/24 : Overall doing well. No urinary issues ;Recent CT showed incidental 2 cm cyst right kidney and anterior bladder wall thickening 11/19/24 74-year-old male presenting with persistent flank pain and diabetes control. Persistent flank pain, primarily on the left side, is reported by the patient. The pain generally arises with physical exertion or when bending and bothers him at night, though it somewhat subsides with Tylenol. Diagnosed with a stable simple renal cyst on previous imaging, this lesion has not changed since a CT scan in August. He also grapples with being overweight, recently gaining nearly 10 pounds. His diet is largely uncontrolled, leading to substantial meal consumption driven by profound hunger. The patient's diabetes management is suboptimal, as evidenced b y a Hemoglobin A1c of 9.2. Routine kidney function tests indicate stable results, though recent urinalysis did not include the requested tests needed for comprehensive diabetes management. 01/22/25 c/o leg pain Underwent vascular procedure and feels better In ER for sciatica last week ;On pain patch BP was elevated Hydralazine was added yesterday 04/23/25 The patient is a 74-year-old male for follow up regarding CKD/HTN Continues to have back pain on and off Recent imaging showed normal kidneys 05/14/25 The patient is a 74 year with Mild CKD, HTN The patient has a history of chronic kidney disease with a stable kidney function of approximately 60%, last checked on 02/26. A prior kidney ultrasound was normal. The patient has a diagnosis of familial hypocalciuric hypercalcemia, with persistently elevated calcium levels, including a recent lab result. The patient was evaluated by an contract assistant a couple of years ago for this condition. The patient reports persistent back pain secondary to sciatica, which is the most bothersome symptom. The patient was using NSAIDs such as Aleve, Advil, and Motrin for pain, but has been instructed to avoid them and use Tylenol instead. 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 The patient's blood sugar is reportedly regular. The patient also takes medications for cholesterol and a blood thinner. The patient occasionally experiences dysuria. [facility] Medical History NAFLD (nonalcoholic fatty liver disease) Transaminitis Basal cell carcinoma (BCC) Skin lesion of left lower extremity Heart murmur Familial hypocalciuric hypercalcemia Multinodular thyroid Vitamin D deficiency HLD (hyperlipidemia) HTN (hypertension) T2DM (type 2 diabetes mellitus) Surgical History Hx of melanoma excision Hx of esophagogastroduodenoscopy Hx of colonoscopy Hx of appendectomy Hx of cholecystectomy Family History Father CVD (cardiovascular disease) Diabetes Brother CVD (cardiovascular disease) Diabetes FH: heart attack Social History Household Members: Family Housing: House Do you presently have visiting nurse or other home services: Yes (visiting nurse 2x week) Alcohol intake: never Patient Tobacco Use Status: Never used Tobacco service: No Current occupational status: unemployed Physical Exam Vital Signs: Last Vital Signs Pulse 79 05/14/25 09:18 BP 180/58 H 05/14/25 09:18 Pulse Ox 97 05/14/25 09:18 Oxygen Delivery Method Room Air 05/14/25 09:18 BMI result Body Mass Index 34.2 Comfortable Neck supple no JVD. Lungs entry equal no rales. Heart S1-S2 heard no gallop or rub. Abdomen soft nontender. Neuro alert awake oriented. No asterixis. Extremities no edema. Results Reviewed Nephrology Results: Hgb, (14.0-18.0) 14.6 g/dl 04/18/25 WBC, (4.8-10.8) 10.3 X10*3/uL 04/18/25 Plt Count, (160-400) 305 X10*3/uL 04/18/25 Sodium, (135-145) 137 mmol/L 05/08/25 Potassium, (3.3-5.1) 4.3 mmol/L 05/08/25 Chloride, (96-108) 102 mmol/L 05/08/25 Carbon Dioxide, (22-29) 25 mmol/L 05/08/25 BUN, (9-16) 31 mg/dL H 05/08/25 Creatinine, (0.5-1.4) 1.20 mg/dL 05/08/25 Calcium, (8.4-10.2) 10.9 mg/dL H 05/08/25 Urine Protein, (Neg-Trace) 100 (2+) mg/dL H 05/08/25 Assessment & Plan Assessment & Plan (1) CKD (chronic kidney disease): Code(s): N18.9 - Chronic kidney disease, unspecified Category: Medical Plan: Due to underlying diabetic hypertensive kidney disease. No evidence of active glomerulonephritis or obstructive uropathy. Patient's serum creatinine is less than 1.0. Goal is to slow the progression of renal disease. Continue to avoid nephrotoxic agents including NSAIDs. Continue to use SGLT 2 inhibitors for cardiorenal protection Unable to use Wai inhibitors due to history of angioedema Creatinine bumped up to 1.5 Probably form hypoperfusion post operative Creatinine has improved Down to 1.0 (2) HTN (hypertension): Comment: Stable Code(s): I10 - Essential (primary) hypertension Category: Medical Plan: Blood pressure has been acceptable Encouraged to stay complaint Continue current regimen. Low-salt diet (3) T2DM (type 2 diabetes mellitus): Code(s): E11.9 - Type 2 diabetes mellitus without complications Category: Medical Qualifiers: Diabetes mellitus computer terminal operator insulin use: with computer terminal operator use Diabetes mellitus complication status: with hyperglycemia Qualified Code(s): E11.65 - Type 2 diabetes mellitus with hyperglycemia; Z79.4 - retirement (current) use of insulin Plan: Blood sugar sub optimal Recent A1C 9.2% Goal A1c less than 7% Follow with endocrinology Discussed weight (4) Hypercalcemia: Code(s): E83.52 - Hypercalcemia Category: Medical Plan: h/o Hypocalciuric Hypercalcemia Previously seen by Endocrine Continue Endocrine follow up No MCGP Plan Renal cyst and anterior bladder wall thickening UA and cytology -No malignant cells Follow up PRN Low back pain h/o Sciatica Continue to lose weight ( lost 7 lbs in 2 months -november ot Feb 04) Follow up with PCP Encouraged to avoid NSAIDS Orders: Orders Basic Metabolic Panel 4 Months N18.9 - Chronic kidney disease, unspecified Coding Level of Care Code Est Pt Level 3 (79656) Diagnoses CKD (chronic kidney disease) N18.9 Hypertension, unspecified type I10 Type 2 diabetes mellitus with hyperglycemia, with long-term current use of insulin E11.65; Z79.4 Diabetes mellitus custodial insulin use: with custodial use Diabetes mellitus complication status: with hyperglycemia Hypercalcemia E83.52
[2025-05-14 09:18] VITALS: BP 180/58; PULSE 79; O2SAT 97; BMI 34.2
[2025-05-14 09:34] VITALS: BP 134/60
== END 2025-05-14 09:41 | disposition home or self-care (01) ==
LOC: HO.HKA 08:51
PROVIDERS: PCP Internal Medicine Geriatric Medicine; Visit Provider Internal Medicine Hypertension Specialist
DX: I12.9 Hypertensive chronic kidney disease with stage 1 through stage 4 chronic kidney disease, or unspecified chronic kidney disease (principal); N18.9 Chronic kidney disease, unspecified; E11.65 Type 2 diabetes mellitus with hyperglycemia; Z79.4 Long term (current) use of insulin; E83.52 Hypercalcemia
CPT/HCPCS: 99213

== ENCOUNTER → 2025-05-14 08:50 | Outpatient (BNVA) | payer OTHER, SELFPAY | PROVIDERS: PCP Internal Medicine Geriatric Medicine; Visit Provider Internal Medicine Hypertension Specialist | DX: I12.9 Hypertensive chronic kidney disease with stage 1 through stage 4 chronic kidney disease, or unspecified chronic kidney disease (principal); E11.22 Type 2 diabetes mellitus with diabetic chronic kidney disease; E11.65 Type 2 diabetes mellitus with hyperglycemia; N18.9 Chronic kidney disease, unspecified; E83.52 Hypercalcemia; Z79.4 Long term (current) use of insulin | CPT/HCPCS: 99212 ==

== ENCOUNTER 2025-05-29 10:20 | Outpatient (REF) | payer OTHER, SELFPAY ==
--- OUTSIDE RECORDS SUMMARY | 2025-05-29 09:30 | XMS_ITS | Encounter Summary ---
Author Organization [employer] Address [address] [place] [address] 7[address] [place] [address] Care Team Providers Care Manager Of Learning Name Role Phone NameAneesh MD Primary Care Provider [phone] Sandra Rasheed PharmD Unavailable [phone] Reason for Referral * Consultation (Routine) - Pending Review Specialty Diagnoses / Procedures Referred By [place] red Referred To Contact Urology Diagnoses Benign prostatic hyperplasia with hesitancy Aneesh Oliveira MD [address] [place] [phone] Phone: tel: fax: Referral ID Status Reason Start Date Expiration Date Visits Requested Visits Authorized [id number] Pending Review Specialty Services Required 05/29/2026 1 1 Reason for Visit * Reason Comments Diabetes Hypertension Encounter Details Date Type Department Care Team (Late st Contact Info) Description 05/29/2025 9:30 AM EST Office Visit [facility] [address] [place] [address] [phone] Aneesh Oliveira MD [address] [place] [address] [phone] Type 2 diabetes mellitus with hyperglycemia, with long-term current use of insulin (HCC) (Primary Dx); Benign prostatic hyperplasia with hesitancy; Suprapubic pressure; Hypertension, unspecified type Social History Tobacco Use Types Packs/Day Years Used Date Smoking Tobacco: Never Passive Smoke Exposure: Never Smokeless Tobacco: Never Tobacco Cessation:Counseling Given: Not Answered Alcohol Use Standard Drinks/Week Comments Never 0 [...] AM EDT documented as of this encounter Last Filed Vital Signs Vital Sign Reading Time Taken Comments Blood Pressure 160/68 05/29/2025 12:30 PM EST Pulse 79 05/29/2025 9:33 AM EST Temperature 36.6 C (97.9 F) 05/29/2025 9:33 AM EST Respiratory Rate 14 05/29/2025 9:33 AM EST Oxygen Saturation 98% 05/29/2025 9:33 AM EST Inhaled Oxygen Concentration - - Weight 98.1 kg (216 lb 3.2 oz) 05/29/2025 9:33 A M EST Height 167.6 cm (5' 6 ) 05/29/2025 9:33 AM EST Body Mass Index 34.9 05/29/2025 9:33 AM EST documented in this encounter Progress Notes * Aneesh Oliveira MD - 05/29/2025 9:30 AM EST Subjective Patient ID: Josue Mace is a 74 y.o. male who presents for Diabetes and Hypertension. Patient comes for a follow-up visit. His blood pressure is elevated today. His blood sugar control has worsened based on his hemoglobin A1c. His only complaint today is chronic low back pain related to DJD. He has an upcoming appointment with [facility] pain clinic for a lumbar spine injection. He does not have any leg weakness. Today she also complains of several weeks with suprapubic pressure, urinary frequency, urinary hesitancy. He does not have any fevers or chills, no dysuria. Review of Systems Constitutional: Negative for chills, fatigue and fever. HENT: Negative for sore throat. Respiratory: Negative for cough, chest tightness and shortness of breath. Cardiovascular: Negative for chest pain, palpitations and leg swelling. Gastrointestinal: Negative for abdominal pain and blood in stool. Genitourinary: Positive for difficulty urinating and frequency. Musculoskeletal: Positive for back pain. Objective Vitals: 05/29/25 0933 05/29/25 1230 BP: (!) 186/68 (!) 160/68 BP Location: Left arm Patient Position: Sitting BP Cuff Size: Adult Pulse: 79 Resp: 14 Temp: 97.9 ??F (36.6 ??C) TempSrc: Temporal SpO2: 98% Weight: 216 lb 3.2 oz (98.1 kg) Height: 5' 6 (1.676 m) Physical Exam Constitutional: General: He is not in acute distress. Appearance: He is not toxic-appearing. Cardiovascular: Rate and Rhythm: Normal rate and regular rhythm. Pulmonary: Effort: Pulmonary effort is normal. No respiratory distress. Musculoskeletal: Lumbar back: Spasms and tenderness present. Neurological: General: No focal deficit present. Mental Status: He is oriented to person, place, and time. Motor: No weakness. Lab Results Component Value Date HGBA1C 9.2 (A) 05/29/2025 HGBA1C 8.7 (A) 02/04/2025 HGBA1C 9.2 (H) 11/17/2024 HGBA1C 9.2 (A) 09/26/2024 HGBA1C 8.9 (A) 05/18/2024 HGBA1C 8.5 (H) 10/24/2023 HGBA1C 8.8 (A) 08/23/2023 HGBA1C 8.8 (A) 03/22/2023 HGBA1C 8.2 01/03/2023 HGBA1C 8.5 10/08/2022 HGBA1C 9.0 09/02/2022 HGBA1C 9.2 (A) 07/13/2022 HGBA1C 9.4 (A) 01/26/2022 Lab Results Component Value Date GLUCOSE 268 (H) 05/08/2025 NA 137 05/08/2025 K 4.3 05/08/2025 CO2 25 05/08/2025 CL 102 05/08/2025 BUN 31 (H) 05/08/2025 CREATININE 1.20 05/08/2025 Component Ref Range & Units (hover) 3 yr ago 5 yr ago PSA, TOTAL 1.87 1.9 R, CM Assessment/Plan Diagnoses and all orders for this visit: Type 2 diabetes mellitus with hyperglycemia, with long-term current use of insulin (HCC) Comments: I recommended the patient avoid sweets and soda, recommended to walk after meals, will discontinue Ozempic and start Mounjaro instead. Keep using meds as prescribed and keep upcoming appointment withCDTM. Orders: - POCT Glucose - POCT Hgb A1c - Tirzepatide (Mounjaro) 5 MG/0.5ML solution auto-injector; Inject 5 mg under the skin 1 (one) timeper week. Benign prostatic hyperplasia with hesitancy Comments: Urinalysis negative for UTI. Glucosuria to be expected given use of Invokana. . Urinary symptoms are related to BPH. DC Flomax and start doxazosin for BPH and HTN. Referral to urology/recheck PSA Orders: - Referral to Urology; Future - PSA,Total; Future Suprapubic pressure - POCT Urinalysis Hypertension, unspecified type Comments: See above. Continue current doses of verapamil, Aldactone, hydralazine. Keep upcoming appointment with [facility]. Other orders - doxazosin (Cardura) 1 MG tablet; Take 1 tablet (1 mg) by mouth at bedtime for 7 days, THEN 2 tablets (2 mg) at bedtime. Future Appointments Date Time Provider Department Center 05/29/2025 10:30 AM Sherita Mendez PharmD [facility] 06/03/2025 9:30 AM Jayne Huffman, OD [facility] 07/02/2025 10:00 AM Sandra Rasheed PharmD [facility] documented in this encounter Plan of Treatment Upcoming Encounters Date Type Department Care Team (Late st Contact Info) Description 06/03/2025 9:30 AM EST Office Visit [facility] [address] [place] [address] Jayne Huffman, OD [address] [place] [address] 07/02/2025 10:00 AM EST Medication Management [facility] [address] [place] [address] Sandra Rasheed, PharmD [address] [place] [address] Scheduled Orders Name Type Priority Associated Diagnoses Orde r Schedule PSA,Total Lab Routine Benign prostatic hyperplasia with hesitancy Expected: 05/29/2025, Expires: 05/29/2026 Scheduled Referrals Name Type Priority Associated Diagnoses Orde r Schedule Referral to Urology Outpatient Referral Routine Benign prostatic hyperplasia with hesitancy Expected: 05/29/2025 (Approximate), Expires: 05/29/2026 documented as of this encounter Goals Goal Patient Goal Type Associated Problems Recent Progress Patient-Stated? Author Help patients manage their type 2 diabetes Care Plan Help patients manage their type 2 diabetes Aneesh Reich MD Weekly blood pressure task Care Plan Weekly blood pressure task Aneesh Reich MD Help patients manage their type 2 diabetes Care Plan Help patients manage their type 2 diabetes Aneesh Reich MD Patient has diabetic eye disease Care Plan Patient has diabetic eye disease Aneesh Reich MD Help patients manage their type 2 diabetes Care Plan Help patients manage their type 2 diabetes [place] Patient has chronic kidney disease Care Plan Patient has chronic kidney disease [place] Weekly blood pressure task Care Plan Weekly blood pressure task [place] MD Weekly blood pressure task Care Plan Weekly blood pressure task [place] MD Patient has diabetic eye disease Care Plan Patient has diabetic eye disease [place] Olive[place] MD Patient has diabetic eye disease Care Plan Patient has diabetic eye disease [place] Olive[place] MD Patient has chronic kidney disease Care Plan Patient has chronic kidney disease [place] Olive[place] MD Patient has chronic kidney disease Care Plan Patient has chronic kidney disease [place] Olive[place] MD Weekly blood pressure task Care Plan Weekly blood pressure task No Brantley, Amber, ASSOCIATE FACULTY Weekly blood pressure task Care Plan Weekly blood pressure task No Brantley, Amber, ASSOCIATE FACULTY Weekly blood pressure task Care Plan Weekly blood pressure task No Brantley, Amber, ASSOCIATE FACULTY Patient has diabetic eye disease Care Plan Patient has diabetic eye disease No Brantley, Amber, ASSOCIATE FACULTY Patient has diabetic eye disease Care Plan Patient has diabetic eye disease No Brantley, Amber, ASSOCIATE FACULTY Patient has diabetic eye disease Care Plan Patient has diabetic eye disease No Brantley, Amber, ASSOCIATE FACULTY Patient has chronic kidney disease Care Plan Patient has chronic kidney disease No Brantley, Amber, ASSOCIATE FACULTY Patient has chronic kidney disease Care Plan Patient has chronic kidney disease No Brantley, Amber, ASSOCIATE FACULTY Patient has chronic kidney disease Care Plan Patient has chronic kidney disease No Brantley, Amber, ASSOCIATE FACULTY Weekly blood pressure task Care Plan Weekly blood pressure task No VanessaSherita, PharmD Weekly blood pressure task Care Plan Weekly blood pressure task No Vanessa Sherita, PharmD Weekly blood pressure task Care Plan Weekly blood pressure task No Vanessa, Sherita, PharmD Patient has diabetic eye disease Care Plan Patient has diabetic eye disease No Vanessa Sherita, PharmD Patient has diabetic eye disease Care Plan Patient has diabetic eye disease No Vanessa Sherita, PharmD Patient has diabetic eye disease Care Plan Patient has diabetic eye disease No Vanessa Sherita, PharmD Patient has chronic kidney disease Care Plan Patient has chronic kidney disease No Vanessa Sherita, PharmD Patient has chronic kidney disease Care Plan Patient has chronic kidney disease No Vanessa Sherita, PharmD Patient has chronic kidney disease Care Plan Patient has chronic kidney disease No Sherita Mendez PharmD Weekly blood pressure task Care Plan Weekly blood pressure task No Karine Wu MA Weekly blood pressure task Care Plan Weekly blood pressure task No Karine Wu MA Weekly blood pressure task Care Plan Weekly blood pressure task No Karine Wu MA Patient has diabetic eye disease Care Plan Patient has diabetic eye disease No Karine Wu MA Patient has diabetic eye disease Care Plan Patient has diabetic eye disease No Karine Wu MA Patient has diabetic eye disease Care Plan Patient has diabetic eye disease No Karine Wu [place] Patient has chronic kidney disease Care Plan Patient has chronic kidney disease No Karine Wu MA Patient has chronic kidney disease Care Plan Patient has chronic kidney disease No Karine Wu MA Patient has chronic kidney disease Care Plan Patient has chronic kidney disease No Karine Wu MA Weekly blood pressure task Care Plan Weekly blood pressure task No Karine Wu MA Weekly blood pressure task Care Plan Weekly blood pressure task No Karine Wu MA Weekly blood pressure task Care Plan Weekly blood pressure task No Karine Wu MA Patient has diabetic eye disease Care Plan Patient has diabetic eye disease No Karine Wu MA Patient has diabetic eye disease Care Plan Patient has diabetic eye disease No Karine Wu MA Patient has diabetic eye disease Care Plan Patient has diabetic eye disease No Karine Wu MA Patient has chronic kidney disease Care Plan Patient has chronic kidney disease No Karine Wu MA Patient has chronic kidney disease Care Plan Patient has chronic kidney disease No Karine Wu MA Patient has chronic kidney disease Care Plan Patient has chronic kidney disease No Karine Wu MA documented as of this encounter Procedures Procedure Name Priority Date/Time Associated Diagnosis Comments POCT URINALYSIS DIPSTICK Routine 05/29/2025 10:04 AM EST Suprapubic pressure POCT GLYCATED HEMOGLOBIN, TOTAL Routine 05/29/2025 9:37 AM EST Type 2 diabetes mellitus with hyperglycemia, with long-term current use of insulin (HCC) POCT GLUCOSE Routine 05/29/2025 9:35 AM EST Type 2 diabetes mellitus with hyperglycemia, with long-term current use of insulin ([facility]) documented in this encounter Results * POCT Urinalysis (05/29/2025 10:04 AM EST) Color, UA Yellow Clarity, UA Clear Glucose, UA Many Comment:1000 mg/dL Bilirubin, UA Negative Ketones, UA Negative Spec Grav, UA 1.015 Blood, UA Negative Negative, None Detected pH, UA 6.5 Protein, UA Many Comment:100mg/dL Urobilinogen, UA 0.2 Leukocytes, UA Negative Negative, Rare, Trace, 1+ (17), 2+ (35), 3+ (70), Trace (15) Nitrite, UA Negative Negative, None Detected Appearance, UA yellow QC Media Lot # [id number] Lot# Expiration Date 63,026 Urine (Urine, Random) 05/29/2025 10:04 AM EST us Aneesh Oliveira MD POINT OF CARE TEST ENTER/EDIT OR DERABLES Final Result * (ABNORMAL) POCT Hgb A1c (05/29/2025 9:37 AM EST) Hemoglobin A1C 9.2(A) 4.0 - 5.7 % QC Media Lot # [id number] Lot# Expiration Date 61,727 Blood 05/29/2025 9:37 AM EST us Aneesh Oliveira MD POINT OF CARE TEST ENTER/EDIT OR DERABLES Final Result * (ABNORMAL) POCT Glucose (05/29/2025 9:35 AM EST) Glucose Blood, POC 244(A) 60 - 200 mg/dL QC Media Lot # [id number] Lot# Expiration Date 70,726 Blood Capillary blood specimen / Unknown 05/29/2025 9:35 AM EST us Aneesh Oliveira MD POINT OF CARE TEST ENTER/EDIT OR DERABLES Final Result documented in this encounter Visit Diagnoses Diagnosis Type 2 diabetes mellitus with hyperglycemia, with long-term current use of insulin (HCC)- Primary Benign prostatic hyperplasia with hesitancy Suprapubic pressure Hypertension, unspecified type documented in this encounter Additional Health Concerns Active Problems Noted Date [...] 05/08/2025 Patient has chronic kidney disease 05/08/2025 Weekly blood pressure task 05/22/2025 Weekly blood pressure task 05/22/2025 Weekly blood pressure task 05/22/2025 Patient has diabetic eye disease 05/22/2025 Patient has diabetic eye disease 05/22/2025 Patient has diabetic eye disease 05/22/2025 Patient has chronic kidney disease 05/22/2025 Patient has chronic kidney disease 05/22/2025 Patient has chronic kidney disease 05/22/2025 Weekly blood pressure task 05/23/2025 Weekly blood pressure task 05/23/2025 Weekly blood pressure task 05/23/2025 Patient has diabetic eye disease 05/23/2025 Patient has diabetic eye disease 05/23/2025 Patient has diabetic eye disease 05/23/2025 Patient has chronic kidney disease 05/23/2025 Patient has chronic kidney disease 05/23/2025 Patient has chronic kidney disease 05/23/2025 Weekly blood pressure task 05/28/2025 Weekly blood pressure task 05/28/2025 Weekly blood pressure task 05/28/2025 Patient has diabetic eye disease 05/28/2025 Patient has diabetic eye disease 05/28/2025 Patient has diabetic eye disease 05/28/2025 Patient has chronic kidney disease 05/28/2025 Patient has chronic kidney disease 05/28/2025 Patient has chronic kidney disease 05/28/2025 Weekly blood pressure task 05/28/2025 Weekly blood pressure task 05/28/2025 Weekly blood pressure task 05/28/2025 Patient has diabetic eye disease 05/28/2025 Patient has diabetic eye disease 05/28/2025 Patient has diabetic eye disease 05/28/2025 Patient has chronic kidney disease 05/28/2025 Patient has chronic kidney disease 05/28/2025 Patient has chronic kidney disease 05/28/2025 Assessment Noted Time PHQ-9 Depression Total Score: 5 03/06/20 11:44 AM EDT documented as of this encounter Care Teams Manager Of Learning Relationship Specialty Start Date End Date Name, MD Aneesh [address] [place] [address] PCP - General Family Medicine 02/14/18 Sandra Rasheed PharmD [address] [place] [address] Pharmacist Internal Medicine 08/24/24 documented as of this encounter
--- OUTSIDE RECORDS SUMMARY | 2025-05-29 12:44 | XMS_ITS | Encounter Summary ---
Author Organization [employer] Address [address] [facility] 7t [place] [address] Care Team Providers Care Website Programmer Name Role Phone Name, Aneesh RIVERS Primary Care Provider [phone] Sandra Rasheed PharmD Unavailable [phone] Reason for Visit * Reason Comments Med Refill Encounter Details Date Type Department Care Team ([facility] Contact Info) Description 01/12/2024 Refill [facility] [address] [place], [place] [id number] Name, MD Aneesh [address] [place] [address] Chronic low back pain, unspecified back pain [...] Description 06/03/2025 9:30 AM EST Office Visit [facility] [address] [place] [address] Nathanael, Jayne, OD [address] [place] [address] 07/02/2025 10:00 AM EST Medication Management [facility] [address] [place] [address] Sandra Rasheed PharmD [address] [place] [address] documented as of this encounter Visit Diagnoses Diagnosis Chronic low back pain, unspecified back pain laterality, unspecified whether sciatica present documented in this encounter Additional Health Concerns Assessment Noted Time PHQ-9 Depression Total Score: 4 08/23/19 24 9:44 AM EDT documented as of this encounter Care Teams Website Programmer Relationship Specialty Start Date End Date Name, MD Aneesh [address] [place] [id number] PCP - General Family Medicine 02/14/18 Sandra Rasheed, PharmD [address] [place] [address] Pharmacist Internal Medicine 08/24/24 documented as of this encounter
--- OUTSIDE RECORDS SUMMARY | 2025-05-29 12:44 | XMS_ITS | Encounter Summary ---
Author Organization [employer] Address [address] [facility] 7t [place] [address] Care Team Providers Care Bottom Polisher Name Role Phone Name, Aneesh RIVERS Primary Care Provider [phone] Sandra Rasheed PharmD Unavailable [phone] Reason for Visit * Reason Comments Med Refill Encounter Details Date Type Department Care Team ([facility] st Contact Info) Description 04/10/2025 Refill [facility] [address] [place] [address] Name, MD Aneesh [address] [place] [address] Left leg pain; Chronic low back pain, [...] Description 06/03/2025 9:30 AM EST Office Visit [facility] [address] [place] [address] Nathanael, Jayne, OD [address] [place] [address] 07/02/2025 10:00 AM EST Medication Management [facility] [address] [place] [address] Sandra Rasheed, PharmD [address] [place] [address] documented as of this encounter Visit Diagnoses Diagnosis Left leg pain Pain in soft tissues of limb Chronic low back pain, unspecified back pain laterality, unspecified whether sciatica present documented in this encounter Additional Health Concerns Assessment Noted Time PHQ-9 Depression Total Score: 5 03/06/20 25 11:44 AM EDT documented as of this encounter Care Teams Bottom Polisher Relationship Specialty Start Date End Date Name, MD Aneesh [address] [place] [address] PCP - General Family Medicine 02/14/18 Sandra Rasheed, AnkushD [address] [place] [address] Pharmacist Internal Medicine 08/24/24 documented as of this encounter
--- OUTSIDE RECORDS SUMMARY | 2025-05-29 12:45 | XMS_ITS | Encounter Summary ---
Author Organization [employer] Address [address] [facility] 7t [place] [address] Care Team Providers Care Capacity Manager Name Role Phone Name, Aneesh RIVERS Primary Care Provider [phone] Sandra Rasheed PharmD Unavailable [phone] Reason for Visit * Reason Comments Med Refill Encounter Details Date Type Department Care Team ([facility] Contact Info) Description 04/09/2024 Refill [facility] [address] [place], [place] [phone] Name, MD Aneesh [address] [place] [address] Chronic low back pain, unspecified back pain [...] Description 06/03/2025 9:30 AM EST Office Visit [facility] [address] [place] [address] Nathanael, Jayne, OD [address] [place] [address] 07/02/2025 10:00 AM EST Medication Management [facility] [address] [place] [address] Sandra Rasheed PharmD [address] [place] [address] documented as of this encounter Visit Diagnoses Diagnosis Chronic low back pain, unspecified back pain laterality, unspecified whether sciatica present documented in this encounter Additional Health Concerns Assessment Noted Time PHQ-9 Depression Total Score: 4 08/23/19 24 9:44 AM EDT documented as of this encounter Care Teams Capacity Manager Relationship Specialty Start Date End Date Name, MD Aneesh [address] [place] [id number] PCP - General Family Medicine 02/14/18 Sandra Rasheed, PharmD [address] [place] [address] Pharmacist Internal Medicine 08/24/24 documented as of this encounter
--- OUTSIDE RECORDS SUMMARY | 2025-05-29 12:45 | XMS_ITS | Encounter Summary ---
Author Organization [employer] Address [address] [facility] 7t [place] [address] Care Team Providers Care Loan And Credit Manager Name Role Phone Name, Aneesh RIVERS Primary Care Provider [phone] Sandra Rasheed PharmD Unavailable [phone] Reason for Visit * Reason Comments Med Refill Encounter Details Date Type Department Care Team ([facility] st Contact Info) Description 08/19/2023 Refill [facility] [address] [place] [address] Name, MD Aneesh [address] [place] [address] Social History Tobacco Use Types Packs/Day Years [...] Description 06/03/2025 9:30 AM EST Office Visit [facility] [address] [place] [address] Nathanael, Jayne, OD [address] [place] [address] 07/02/2025 10:00 AM EST Medication Management [facility] [address] [place] [address] Sandra Rasheed PharmD [address] [place] [address] documented as of this encounter Visit Diagnoses Not on filedocumented in this encounter Care Teams Loan And Credit Manager Relationship Specialty Start Date End Date Name, MD Aneesh [address] [place] [phone] PCP - General Family Medicine 02/14/18 Sandra Rasheed, PharmD [address] [place] [address] Pharmacist Internal Medicine 08/24/24 documented as of this encounter
--- OUTSIDE RECORDS SUMMARY | 2025-05-29 12:45 | XMS_ITS | Encounter Summary ---
Author Organization [employer] Address [address] [facility] 7[address] [place] [address] Care Team Providers Care Strike Planning Applications Name Role Phone Name, Aneesh RIVERS Primary Care Provider [phone] Sandra Rasheed PharmD Unavailable [phone] Reason for Visit * Reason Comments Med Refill Encounter Details Date Type Department Care Team ([facility] st Contact Info) Description 06/25/2024 Refill [facility] [address] [place] [address] Name, MD Aneesh [address] [place] [address] Hypertension, unspecified type; Prostatism; Type 2 diabetes mellitus with hyperglycemia (CMS/HCC); assisted (current) use of insulin ([facility]) Social History Tobacco Use Types [...] Description 06/03/2025 9:30 AM EST Office Visit [facility] [address] [place] [address] Nathanael, Jayne, OD [address] [place] [address] 07/02/2025 10:00 AM EST Medication Management [facility] [address] [place] [address] Sandra Rasheed, PharmD [address] [place] [address] documented as of this encounter Visit Diagnoses Diagnosis Hypertension, unspecified type Prostatism Unspecified hyperplasia of prostate without urinary obstruction and other lower urinary tract symptoms (LUTS) Type 2 diabetes mellitus 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
--- OUTSIDE RECORDS SUMMARY | 2025-05-29 12:45 | XMS_ITS | Encounter Summary ---
Author Organization [employer] Address [address] [facility] 7t [place] [address] Care Team Providers Care Fishery Division Chief Name Role Phone Name, Aneesh RIVERS Primary Care Provider [phone] Sandra Rasheed PharmD Unavailable [phone] Encounter Details Date Type Department Care Team (Late st Contact Info) Description 03/23/2023 Orders Only [facility] MED & PEDS [address] [place], [place] [id number] Amber Brantley LPN Social History Tobacco Use [...] t he electric, gas, oil or water [employer] threatened to shut off services in your [...] Description 06/03/2025 9:30 AM EST Office Visit [facility] OPTOMETRY [address] [place] [address] Jayne Huffman, OD [address] [place] [address] 07/02/2025 10:00 AM EST Medication Management [facility] MEDICINE [address] [place] [address] Sandra Rasheed PharmD [address] [place] [address] documented as of this encounter Visit Diagnoses Not on filedocumented in this encounter Care Teams Fishery Division Chief Relationship Specialty Start Date End Date Name, MD Aneesh [address] [place] [address] PCP - General Family Medicine 02/14/18 Sandra Rasheed PharmD [address] [place] [address] Pharmacist Internal Medicine 08/24/24 documented as of this encounter
--- OUTSIDE RECORDS SUMMARY | 2025-05-29 12:45 | XMS_ITS | Encounter Summary ---
Author Organization [employer] Address [address] [facility] 7t [place] [address] Care Team Providers Care Stroboroma Operator Name Role Phone Name, Aneesh RIVERS Primary Care Provider [phone] Sandra Rasheed PharmD Unavailable [phone] Reason for Visit * Reason Comments Med Refill Encounter Details Date Type Department Care Team ([facility] st Contact Info) Description 05/02/2024 Refill [facility] MEDICINE [address] [place] [address] Name, MD Aneesh [address] [place] [address] Chronic constipation Social History Tobacco Use Types [...] Description 06/03/2025 9:30 AM EST Office Visit [facility] OPTOMETRY [address] [place] [address] Nathanael, Jayne, OD [address] [place] [address] 07/02/2025 10:00 AM EST Medication Management [facility] MEDICINE [address] [place] [address] Sandra Rasheed PharmD [address] [place] [address] documented as of this encounter Visit Diagnoses Diagnosis Chronic constipation Unspecified constipation documented in this encounter Additional Health Concerns Assessment Noted Time PHQ-9 Depression Total Score: 4 08/23/19 24 9:44 AM EDT documented as of this encounter Care Teams Stroboroma Operator Relationship Specialty Start Date End Date Name, MD Aneesh [address] [place] [address] PCP - General Family Medicine 02/14/18 Sandra Rasheed, PharmD [address] [place] [address] Pharmacist Internal Medicine 08/24/24 documented as of this encounter
--- OUTSIDE RECORDS SUMMARY | 2025-05-29 12:45 | XMS_ITS | Encounter Summary ---
Author Organization [employer] Address 75 [facility] 7t [place] [address] Care Team Providers Care Capper Machine Operator Name Role Phone Name, Aneesh RIVERS Primary Care Provider [phone] Sandra Rasheed PharmD Unavailable [phone] Reason for Visit * Reason Comments Med Refill Encounter Details Date Type Department Care Team ([facility] st Contact Info) Description 08/18/2023 Refill [facility] MEDICINE [address] [place], [place] [phone] Name, MD Aneesh [address] [place] [address] Social History Tobacco Use Types Packs/Day Years [...] Description 06/03/2025 9:30 AM EST Office Visit [facility] OPTOMETRY [address] [place] [address] Nathanael, Jayne, OD [address] [place] [address] 07/02/2025 10:00 AM EST Medication Management [facility] MEDICINE [address] [place] [address] Sandra Rasheed PharmD [address] [place] [address] documented as of this encounter Visit Diagnoses Not on filedocumented in this encounter Care Teams Capper Machine Operator Relationship Specialty Start Date End Date Name, MD Aneesh [address] [place] [address] PCP - General Family Medicine 02/14/18 Sandra Rasheed, PharmD [address] [place] [address] Pharmacist Internal Medicine 08/24/24 documented as of this encounter
--- OUTSIDE RECORDS SUMMARY | 2025-05-29 12:45 | XMS_ITS | Encounter Summary ---
Author Organization [employer] Address 75 [facility] 7t [place] [address] Care Team Providers Care Body Joiner Name Role Phone Name, Aneesh RIVERS Primary Care Provider [phone] Sandra Rasheed PharmD Unavailable [phone] Reason for Visit * Reason Onset Date Comments Appointment Request 07/17/2024 Encounter Details Date Type Department Care Team ([facility] st Contact Info) Description 07/17/2024 Telephone [facility] MEDICINE [address] [place] [address] Name, MD Aneesh [address] [place] [address] Appointment Request Social History Tobacco Use Types [...] r/s apt for 07/17/24. Contact pt at [phone] documented in this encounter Plan of Treatment Upcoming Encounters Date Type Department Care Team (Late st Contact Info) Description 06/03/2025 9:30 AM EST Office Visit [facility] OPTOMETRY [address] [place] [address] Nathanael, Jayne, OD [address] [place] [address] 07/02/2025 10:00 AM EST Medication Management [facility] MEDICINE [address] [place] [address] Sandra Rasheed, PharmD [address] [place] [address] documented as of this encounter Visit Diagnoses Not on filedocumented in this encounter Additional Health Concerns Assessment Noted Time PHQ-9 Depression Total Score: 4 08/23/19 24 9:44 AM EDT documented as of this encounter Care Teams Body Joiner Relationship Specialty Start Date End Date Name, MD Aneesh [address] [place] [address] PCP - General Family Medicine 02/14/18 Sandra Rasheed, Javi [address] [place] [address] Pharmacist Internal Medicine 08/24/24 documented as of this encounter
--- OUTSIDE RECORDS SUMMARY | 2025-05-29 12:45 | XMS_ITS | Encounter Summary ---
Author Organization [employer] Address 75 [facility] 7t [place] [address] Care Team Providers Care Emr Analyst Name Role Phone Name, Aneesh RIVERS Primary Care Provider [phone] Sandra Rasheed PharmD Unavailable [phone] Encounter Details Date Type Department Care Team (Latest Contact Info) Description 05/29/2025 Travel Social History Tobacco Use Types Packs/Day Years [...] Description 06/03/2025 9:30 AM EST Office Visit [facility] OPTOMETRY [address] [place] [address] NathanaelJayne agudelo, OD [address] [place] [address] 07/02/2025 10:00 AM EST Medication Management [facility] MEDICINE [address] [place] [address] Sandra Rasheed, PharmD [address] [place] [address] documented as of this encounter Goals Goal Patient Goal Type Associated Problems Recent Progress Patient-Stated? Author Help patients manage their type 2 diabetes Care Plan Help patients manage their type 2 diabetes Aneesh Reich MD Weekly blood pressure task Care Plan Weekly blood pressure task [place]Aneesh Oliveira MD Help patients manage their type 2 diabetes Care Plan Help patients manage their type 2 diabetes Aneesh Reich MD Patient has diabetic eye disease Care Plan Patient has diabetic eye disease Aneesh Reich MD Help patients manage their type 2 diabetes Care Plan Help patients manage their type 2 diabetes Aneesh Reich MD Patient has chronic kidney disease Care Plan Patient has chronic kidney disease Aneesh Reich MD Weekly blood pressure task Care Plan Weekly blood pressure task Aneesh Reich MD Weekly blood pressure task Care Plan Weekly blood pressure task Aneesh Reich MD Patient has diabetic eye disease Care Plan Patient has diabetic eye disease Aneesh Reich MD Patient has diabetic eye disease Care Plan Patient has diabetic eye disease Aneesh Reich MD Patient has chronic kidney disease Care Plan Patient has chronic kidney disease [place]neesh Oliveira MD Patient has chronic kidney disease Care Plan Patient has chronic kidney disease [place] CreekAneesh Oliveira MD Weekly blood pressure task Care Plan Weekly blood pressure task No Brantley, Amber, STAFF DEVELOPMENT COORDINATOR RN Weekly blood pressure task Care Plan Weekly blood pressure task No Brantley, Amber, STAFF DEVELOPMENT COORDINATOR RN Weekly blood pressure task Care Plan Weekly blood pressure task No Brantley, Amber, STAFF DEVELOPMENT COORDINATOR RN Patient has diabetic eye disease Care Plan Patient has diabetic eye disease No Brantley, Amber, STAFF DEVELOPMENT COORDINATOR RN Patient has diabetic eye disease Care Plan Patient has diabetic eye disease No Brantley, Amber, STAFF DEVELOPMENT COORDINATOR RN Patient has diabetic eye disease Care Plan Patient has diabetic eye disease No Brantley, Amber, STAFF DEVELOPMENT COORDINATOR RN Patient has chronic kidney disease Care Plan Patient has chronic kidney disease No Brantley, Amber, STAFF DEVELOPMENT COORDINATOR RN Patient has chronic kidney disease Care Plan Patient has chronic kidney disease No Brantley, Amber, STAFF DEVELOPMENT COORDINATOR RN Patient has chronic kidney disease Care Plan Patient has chronic kidney disease No Brantley, Amber, STAFF DEVELOPMENT COORDINATOR RN Weekly blood pressure task Care Plan Weekly blood pressure task No VanessaSherita, PharmD Weekly blood pressure task Care Plan Weekly blood pressure task No Vanessa Sherita, PharmD Weekly blood pressure task Care Plan Weekly blood pressure task No Vanessa Sherita, PharmD Patient has diabetic [...] chronic kidney disease No Vanessa Sherita, PharmD Weekly blood pressure [...] Care Plan Patient has chronic kidney disease Karine Lopez MA Patient has chronic kidney disease Care Plan Patient has chronic kidney disease No Karine Wu MA Patient has chronic kidney disease Care Plan Patient has chronic kidney disease No Karine Wu MA documented as of this encounter Visit Diagnoses Not on filedocumented in this encounter Additional Health Concerns Active [...] documented as of this encounter Care Teams Emr Analyst Relationship Specialty Start Date End Date Name, MD Aneesh [address] [place] [address] PCP - General Family Medicine 02/14/18 Sandra Rasheed PharmD [address] [place] [address] Pharmacist Internal Medicine 08/24/24 documented as of this encounter
--- OUTSIDE RECORDS SUMMARY | 2025-05-29 12:45 | XMS_ITS | Encounter Summary ---
Author Organization [employer] Address 75 [facility] 7t [place] [address] Care Team Providers Care Director Of Plant Operations Name Role Phone Name, Aneesh RIVERS Primary Care Provider Sandra Rasheed PharmD Unavailable [phone] Reason for Visit * Reason Onset Date Comments FYI 08/23/2023 Encounter Details Date Type Department Care Team ([facility] st Contact Info) Description 08/23/2023 Telephone [facility] MEDICINE [address] [place] [address] Name, MD Aneesh [address] [place] [address] FY Social History Tobacco Use Types Packs/Day [...] encounter Miscellaneous Notes * Telephone Encounter - [facility] [place] - 08/23/2023 3:03 PM EDT Tc from Leidy with [facility] stating pt no longer wants to continue care with them. Leidy stated pt no showed 3 appts in a row and when asked about it pt said it was due to to transportation. Pt claims they are irresponsible and that they don't communicate. Pt stated he will continue care with PCP. If any questions please contact Leidy at [phone]. documented in this encounter Plan of Treatment Upcoming Encounters Date Type Department Care Team (Late st Contact Info) Description 06/03/2025 9:30 AM EST Office Visit [facility] OPTOMETRY [address] [place] [address] Jayne Huffman, OD [address] [place] [address] 07/02/2025 10:00 AM EST Medication Management [facility] MEDICINE [address] [place] [address] Sandra Rasheed, PharmD [address] [place] [address] documented as of this encounter Visit Diagnoses Not on filedocumented in this encounter Additional Health Concerns Assessment Noted Time PHQ-9 Depression Total Score: 4 08/23/19 24 9:44 AM EDT documented as of this encounter Care Teams Director Of Plant Operations Relationship Specialty Start Date End Date Name, MD Aneesh [address] [place] [address] PCP - General Family Medicine 02/14/18 Sandra Rasheed, Javi [address] [place] [address] Pharmacist Internal Medicine 08/24/24 documented as of this encounter
--- OUTSIDE RECORDS SUMMARY | 2025-05-29 12:45 | XMS_ITS | Data Portability ---
Author Organization [place] - [facility] Address [address] [facility] [address] [place] [id number] Care Team Providers Care Gold Buyer Name Role Phone NAME, LAURENT Primary Care [...] vocal quality. I recommended he see a mill set up, voice specalist, to evaluate him and see if he would be a good candidate for a more permanent medialization procedure. Patient is willing and interested to travel to [place] to hear options. - Referral to [facility] Otolaryngology - Dr. Stafford or Dr. Machuca for discussion [email or web address] Not available 05/04/2024 08:27:45 Plan of Treatment Reminders Order Date Submit Date Provider Last Modified By Organization Details Last Modified Time Details Appointments None recorded. Lab None recorded. Referral otolaryngol ogist referral - Attn: Birgit. Dr. Machuca or Dr. Stafford - bilateral vocal cord paralysis. 2023 024 [id number] 2 [facility] Otolaryngolog y, [address] [facility], [facility], [place], [address], 4 10:41:11 Procedures None recorded. Surgeries None recorded. Imaging None recorded. Medication Orders None recorded. Patient TargetsNo targets recorded. Patient InstructionsNo instructions recorded. Reason for Referral Head Of Talent Management Referral fo r Dysphonia Attn: Birgit. Dr. Machuca or Dr. Stafford - bilateral vocal cord paralysis. Referring Physician: Ryan Maya, Otolaryngology, Encounter Date: 05/03/2024 Problems Name Problem SNOMED Code Status Onset Date Resolution Date Notes Provider Name and Address Organization Details Recorded Time Paralysis of larynx 88883255 Active 2018 Paralysis of vocal cords and larynx, unspecifie d; Note: Date Diagnosed: 12/25/2018 2:49 PM (J38.00) Not Available [facility] 4 03:24:49 Dysphonia 94104603 Active 2018 Hoarseness ; Note: Date Diagnosed: 12/25/2018 2:49 PM (R49.0) Not Available [facility] 4 03:24:49 Simple goiter 754643169 Active 2018 Goiter NOS; Note: Date Diagnosed: 12/25/2018 2:49 PM (E04.9) Not Available [facility] 4 03:24:49 Paralysis of larynx 77799146 Active 2023 RYAN MAYA MD [address] [place] [address], [phone] , [facility] 4 08:24:41 Problem Notes None recorded. Procedures Surgical History Date Name Laterality Status Provider Name and Address Organization Details Recorded Time 05/03/20 24 Fiberoptic Laryngoscopy (Comprehensive) completed RYAN MAYA MD [address] [place] [address], [place], [phone], [facility] 05/04/2024 08:24:07 Imaging Results None recorded. [...] Updated DateTime 05/03/2024 167.64 cm 34.7 kg/m2 54169.36 g Dimagiovanny Ramírez [place] - [facility] 05/03/2024 13:28:04 Social History None recorded. Functional Status None recorded. Mental Status None recorded. Family History Nothing Reported. Medical History No medical history recorded. Past Encounters Encounter ID Performer Location Encounter Start Date Encounter Closed Date Diagnosis/Indication Diagnosis SNOMED-CT Code Diagnosis ICD10 Code Diagnosis IMO Codes Diagnosis Note [id number] RYAN MAYA MD [facility] [address] [phone] 05/03/2024 13:04:26 05/03/2024 16:54:58 Paralysis of larynx 25717289 J38.02 Dysphonia 46159116 R49.9 Health Concerns Section Related Observation LastModified by Organization Detai ls LastModified Time None Recorded Concern Status LastModified by Organization Details LastModified Time None Recorded Advance Directives Directive None Recorded Payers Insurance Date Sequence Insurance Name Policy Number Policy Hood Covered Member ID Hood Member ID Guarantor Name 05/03/2024 1 [facility] (MEDICARE REPLACEMENT/ ADVANTAGE - HMO) Josue Mace [id number] Josue Mace 05/02/2024 2 [place]: [facility] Josue Mace [id number] Josue Mace Notes Date Note Type Note Provider Name and Address Organization Details Recorded Time 05/03/2024 text/html ROS as noted in the HPI 73yo gentleman who presents today for evaluation of bilateral vocal cord paralysis and dysphonia. He has had difficulty with his voice for about 5 years. He underwent a traumatic intubation at [facility] in 2018 in the setting of an anaphylactic event. Following, this resulted in dysphonia and dyspnea with exertion. He was seen by otolaryngology in [place] - Dr. John Coppola. At that time, [...] aspirin 81 & clopidogrel. RYAN MAYA MD [address] [place] [address], [place], [phone], [place] - [facility] 05/04/2024 20:31:01
--- OUTSIDE RECORDS SUMMARY | 2025-05-29 12:45 | XMS_ITS | Encounter Summary ---
Author Organization [employer] Address 75 [facility] 7t [place] [address] Care Team Providers Care Supervisor Brew House Name Role Phone Name, Aneesh RIVERS Primary Care Provider [phone] Sandra Rasheed PharmD Unavailable [phone] Reason for Visit * Reason Comments Med Refill Encounter Details Date Type Department Care Team ([facility] st Contact Info) Description 12/20/2024 Refill [facility] MEDICINE [address] [place] [address] Name, MD Aneesh [address] [place] [address] Left leg pain; Chronic low back pain, [...] Description 06/03/2025 9:30 AM EST Office Visit [facility] OPTOMETRY [address] [place] [address] Nathanael, Jayne, OD [address] [place] [address] 07/02/2025 10:00 AM EST Medication Management [facility] MEDICINE [address] [place] [address] Sandra Rasheed PharmD [address] [place] [address] documented as of this encounter Visit Diagnoses Diagnosis Left leg pain Pain in soft tissues of limb Chronic low back pain, unspecified back pain laterality, unspecified whether sciatica present documented in this encounter Additional Health Concerns Assessment Noted Time PHQ-9 Depression Total Score: 4 08/23/19 24 9:44 AM EDT documented as of this encounter Care Teams Supervisor Brew House Relationship Specialty Start Date End Date Name, MD Aneesh [address] [place] [address] PCP - General Family Medicine 02/14/18 Sandra Rasheed PharmD [address] [place] [address] Pharmacist Internal Medicine 08/24/24 documented as of this encounter
--- OUTSIDE RECORDS SUMMARY | 2025-05-29 12:45 | XMS_ITS | Encounter Summary ---
Author Organization [employer] Address [address] [place] [address] Care Team Providers Care Picture Frame Maker Name Role Phone Name, Aneesh RIVERS Primary Care Provider [phone] Sandra Rasheed PharmD Unavailable [phone] Reason for Visit * Reason Onset Date Comments Chart Prep 05/28/2025 Encounter Details Date Type Department Care Team ([facility] st Contact Info) Description 05/28/2025 Telephone [facility] [address] [place] [address] Name, MD Aneesh [address] [place] [address] Chart Prep Social History Tobacco Use Types Packs/Day Years [...] encounter Miscellaneous Notes * Telephone Encounter - Karine Wu [place] - 05/28/2025 2:09 PM EST Chart Prep Labs: done Images: done Referrals: complete Vaccines due: Covid, Hep B, Hep A, RSV, and Zoster Screenings: Derm Melanoma Skin Check Overdue care gaps: A1c, Glucose, SBIRT, and Tobacco documented in this encounter Plan of Treatment Upcoming Encounters Date Type Department Care Team (Late st Contact Info) Description 06/03/2025 9:30 AM EST Office Visit [facility] OPTOMETRY [address] [place] [address] Nathanael, Jayne, OD [address] [place] [address] 07/02/2025 10:00 AM EST Medication Management [facility] [address] [place] [address] Sandra Rasheed, PharmD [address] [place] [address] documented as of this encounter Goals Goal Patient Goal Type Associated Problems Recent Progress Patient-Stated? Author Help patients manage their type 2 diabetes Care Plan Help patients manage their type 2 diabetes HicoAneesh Oliveira MD Weekly blood pressure task Care Plan Weekly blood pressure task HicoAneesh Oliveira MD Help patients manage their type 2 diabetes Care Plan Help patients manage their type 2 diabetes HicoAneesh Oliveira MD Patient has diabetic eye disease Care Plan Patient has diabetic eye disease HicoAneesh Oliveira MD Help patients manage their type 2 diabetes Care Plan Help patients manage their type 2 diabetes HicoAneesh Oliveira MD Patient has chronic kidney disease Care Plan Patient has chronic kidney disease HicoAneesh Oliveira MD Weekly blood pressure task Care Plan Weekly blood pressure task HicoAneesh Oliveira MD Weekly blood pressure task Care Plan Weekly blood pressure task HicoAneesh Oliveira MD Patient has diabetic eye disease Care Plan Patient has diabetic eye disease HicoAneesh Oliveira MD Patient has diabetic eye disease Care Plan Patient has diabetic eye disease HicoAneesh Oliveira MD Patient has chronic kidney disease Care Plan Patient has chronic kidney disease HicoAneesh Oliveira MD Patient has chronic kidney disease Care Plan Patient has chronic kidney disease HicoAneesh Oliveira MD Weekly blood pressure task Care Plan Weekly blood pressure task No Brantley, Amber, TECHNICAL SALES ENGINEER Weekly blood pressure task Care Plan Weekly blood pressure task No Brantley, Amber, TECHNICAL SALES ENGINEER Weekly blood pressure task Care Plan Weekly blood pressure task No Brantley, Amber, TECHNICAL SALES ENGINEER Patient has diabetic eye disease Care Plan Patient has diabetic eye disease No Brantley, Amber, TECHNICAL SALES ENGINEER Patient has diabetic eye disease Care Plan Patient has diabetic eye disease No Brantley, Amber, TECHNICAL SALES ENGINEER Patient has diabetic eye disease Care Plan Patient has diabetic eye disease No Brantley, Amber, TECHNICAL SALES ENGINEER Patient has chronic kidney disease Care Plan Patient has chronic kidney disease No Brantley, Amber, TECHNICAL SALES ENGINEER Patient has chronic kidney disease Care Plan Patient has chronic kidney disease No Brantley, Amber, TECHNICAL SALES ENGINEER Patient has chronic kidney disease Care Plan Patient has chronic kidney disease No Brantley, Amber, TECHNICAL SALES ENGINEER Weekly blood pressure task Care Plan Weekly blood pressure task No Vanessa, Amy, PharmD Weekly blood pressure task Care Plan Weekly blood pressure task No Sherita Mendez, PharmD Weekly blood pressure task Care Plan Weekly blood pressure task No VanessaSherita, PharmD Patient has diabetic eye disease Care Plan Patient has diabetic eye disease No Sherita Mendez, PharmD Patient has diabetic eye disease Care Plan Patient has diabetic eye disease No Sherita Mendez PharmD Patient has diabetic eye disease Care Plan Patient has diabetic eye disease No Sherita Mendez PharmD Patient has chronic kidney disease Care Plan Patient has chronic kidney disease No Sherita Mendez PharmD Patient has chronic kidney disease Care Plan Patient has chronic kidney disease No Sherita Mendez PharmD Patient has chronic kidney disease Care [...] documented as of this encounter Care Teams Picture Frame Maker Relationship Specialty Start Date End Date Name, MD Aneesh [address] [place] [address] PCP - General Family Medicine 02/14/18 Sandra Rasheed PharmD [address] [place] [address] Pharmacist Internal Medicine 08/24/24 documented as of this encounter
--- OUTSIDE RECORDS SUMMARY | 2025-05-29 12:46 | XMS_ITS | Clinical Summary ---
Author Organization [employer] Address [address] [facility] [address] [place] [address] Care Team Providers Care Appliquer Zigzag Name Role Phone Name, Aneesh RIVERS Primary Care Provider [phone] Sandra Rasheed PharmD Unavailable [phone] Allergies Active Allergy Reactions Criticality Noted [...] AND SWELLING 30 g 2 024 Active clopidogrel (Plavix) 75 MG tablet Take 75 mg by mouth in the morning. 024 Active senna (Senokot) 8.6 MG tablet Take 2 tablets by mouth Once per day. 024 Active Reguloid 400 MG capsule Take 2 capsules by mouth 2 times daily. 025 Active insulin pen needle (UltiGuard SafePack Pen Needle) 32G x 4 mm miscIndications: Type 2 diabetes mellitus with hyperglycemia (HCC) Use to inject insulin 4 times daily 200 each 11 05/01/20 25 10:31 AM EST 025 Active glucose blood (OneTouch Ultra) test stripIndications :Type 2 diabetes mellitus with hyperglycemia (HCC) TEST BLOOD SUGAR THREE TIMES DAILY 100 strip 11 025 Active metFORMIN (Glucophage) 1000 MG tabletIndication s:Type 2 diabetes mellitus with other specified complication, without long-term current use of insulin (HCC) TAKE 1 TABLET BY MOUTH TWICE DAILY AT NOON AND IN THE EVENING BEFORE MEALS 60 tablet 11 05/01/20 25 10:31 AM EST 025 Active Aspirin Low Dose 81 MG EC tablet TAKE 1 TABLET BY MOUTH EVERYDAY AT NOON 90 tablet 3 025 Active verapamil SR (Calan SR) 120 MG ER tabletIndication s:Chronic constipation TAKE 1 TABLET BY MOUTH EVERY MORNING WITH FOOD 90 tablet 1 025 Active rosuvastatin (Crestor) 20 MG tabletIndication s:Type 2 diabetes mellitus with hyperglycemia, with long-term current use of insulin (HCC) Take 1 tablet (20 mg) by mouth Once per day. 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),superintendent terminal (current) use of insulin (CMS/HCC) ([facility]) INJECT 35 UNITS SUBCUTANEOUSLY THREE TIMES DAILY WITH MEALS 30 mL 5 05/24/20 25 11:10 AM EST 025 Active chlorthalidone (Hygroton) 50 [...] ions:Type 2 diabetes mellitus with hyperglycemia (HCC),superintendent terminal (current) use of insulin (CMS/HCC) ([facility]) INJECT 80 UNITS SUBCUTANEOUSLY EVERY DAY AT BEDTIME 12 mL 2 05/24/20 25 11:10 AM EST 025 Active Blood Glucose Monitoring Suppl (Accu-Chek Meggan Plus) w/Device kitIndications:T ype 2 diabetes mellitus with other specified complication, without long-term current use of insulin (HCC) Test daily before all meals/snacks and once before bedtime. 1 kit Active Blood Glucose Calibration (Accu-Chek Meggan) solutionIndicati ons:Type 2 diabetes mellitus with other specified complication, without long-term current use of insulin (HCC) Glucose control solution provides an easy way to ensure accurate blood glucose testing. 1 each Active Lancets Misc. (Accu-Chek Softclix Lancet Dev) [...] meals/snacks and once before bedtime. 100 each Active hydrALAZINE (Apresoline) 25 MG tablet TAKE [...] 05/01/20 25 10:31 AM EST 025 Active spironolactone (Aldactone) 25 MG tabletIndication s:Hypertension, unspecified type TAKE 1 TABLET BY MOUTH EVERY MORNING 90 tablet Active Accu-Chek Softclix Lancets lancetsIndicatio ns:Type 2 diabetes mellitus with other specified complication (HCC) TEST BLOOD SUGAR BEFORE MEALS / SNACKS AND AT BEDTIME 100 each 05/24/20 25 11:10 AM EST Active Alcohol Swabs (Alcohol Prep) 70 % padsIndications: Type 2 diabetes mellitus with other specified complication (HCC) TEST BLOOD SUGAR BEFORE MEALS / SNACKS AND BEFORE BEDTIME 100 each 05/24/20 25 11:10 AM EST Active lactulose (Chronulac) 10 GM/15ML solution TAKE 15 ML BY MOUTH EVERY DAYTAKE 15 ML BY MOUTH EVERY DAY 250 mL 10 05/24/20 25 11:10 AM EST Active ondansetron ODT (Zofran-ODT) 4 MG disintegrating tablet DISSOLVE 1 TABLET BY MOUTH EVERY 8 HOURS NEEDED FOR NAUSEA AND VOMITING Active Tirzepatide (Mounjaro) 5 MG/0.5ML solution auto-injectorInd ications:Type 2 diabetes mellitus with hyperglycemia, with long-term current use of insulin ([facility]) Inject 5 mg under the skin 1 (one) time per week. 2 mL 2 025 2025 Active doxazosin (Cardura) 1 MG tablet Take 1 tablet (1 mg) by mouth at bedtime for 7 days, THEN 2 tablets (2 mg) at bedtime. 67 tablet 2 025 2025 Active lactulose (Chronulac) 10 GM/15ML solution TAKE 15 ML BY MOUTH EVERY DAY 250 mL 10 024 2024 Discontinued(R eorder (will not trigger notification to Pharmacy)) Alcohol Swabs (Easy Touch Alcohol Prep Medium) 70 % pads USE DIRECTED FOUR TIMES DAILY 100 each 024 2024 Discontinued acetaminophen (Tylenol) 500 MG tablet Take 1 tablet (500 mg) by mouth every 8 (eight) hours if needed for mild pain. Patient reports taking 3 tablets every morning for pain 30 tablet 11 024 2024 tamsulosin (Flomax) 0.4 MG 24 hr capsuleIndicatio ns:Prostatism TAKE 2 CAPSULES BY MOUTH EVERY DAY AT BEDTIME (1/2 HOUR AFTER SUPPER) 180 capsule 3 2024 Discontinued(I neffective) spironolactone (Aldactone) 25 MG tabletIndication s:Hypertension, unspecified type TAKE 1 TABLET BY MOUTH EVERY MORNING 90 tablet 2024 Discontinued Semaglutide, 2 MG/DOSE, (Ozempic, 2 MG/DOSE,) 8 MG/3ML solution pen-injectorIndi cations:Type 2 diabetes mellitus with hyperglycemia, with long-term current use of insulin (HCC) Inject 0.75 mL (2 mg) under the skin 1 (one) time per week. 3 mL 11 05/24/20 11:10 AM EST 2024 Discontinued(I neffective) Active Problems Problem Noted Date Diagnosed Date [...] Encounters Date Type Department Care Team Description 05/29/2025 9:30 AM EST Office Visit [facility] [address] [place] [address] Name, MD Aneesh Type 2 diabetes mellitus with hyperglycemia, with long-term current use of insulin (HCC) (Primary Dx); Benign prostatic hyperplasia with hesitancy; Suprapubic pressure; Hypertension, unspecified type 05/29/2025 Travel 05/28/2025 Telephone [facility] [place] [address] Aneesh Oliveira MD Chart Prep 05/22/2025 Refill [facility] [place] [address] Aneesh Oliveira MD Hypertension, unspecified type; Type 2 diabetes mellitus with other specified complication (HCC) 05/21/2025 Refill [facility] [address] [place] [address] Aneesh Oliveira MD 05/08/2025 Results Follow-Up [facility] [place] [place] [address] Aneesh Oliveira MD Urinalysis Complete, Basic Metabolic Panel 05/08/2025 Orders Only GENERIC EXTERNAL DATA DEPARTMENT Provider, Generic External Data 04/23/2025 Telephone [facility] [place] [address] Sandra Rasheed, PharmD 04/22/2025 Refill [facility] [place] [place] [address] Aneesh Oliveira MD 04/18/2025 Orders Only GENERIC EXTERNAL DATA DEPARTMENT Provider, Generic External Data 04/16/2025 Refill [facility] [place] [place] [address] Aneesh Oliveira MD Left leg pain; Chronic low back pain, unspecified back pain laterality, unspecified whether sciatica present 04/10/2025 Refill [facility] [place] [place] [address] Aneesh Oliveira MD Left leg pain; Chronic low back pain, unspecified back pain laterality, unspecified whether sciatica present 04/10/2025 [place] [address] Sandra Rasheed, PharmD 04/04/2025 Telephone [facility] [address] [facility] [place] [address] Aneesh Oliveira MD 04/04/2025 Telephone [facility] [facility] [place] [address] Aneesh Oliveira MD Transition Of Care (Tcm) 04/03/2025 Orders Only [facility] External Provider, [facility] 04/01/2025 Refill [facility] [address] [place] [address] Aneesh Oliveira MD Type 2 diabetes mellitus with other specified complication, without long-term current use of insulin (HCC) (Primary Dx) 03/06/2025 11:00 AM EDT Office Visit [facility] [address] [place] [address] Aneesh Oliveira MD Type 2 diabetes mellitus with other specified complication, without long-term current use of insulin (CMS/HCC) (Primary Dx); Stage 3a chronic kidney disease (CMS/HCC); Hypertension, unspecified type; Chronic low back pain, unspecified back pain laterality, unspecified whether sciatica present; Generalized osteoarthritis; Encounter for immunization 03/06/2025 Travel from Last 3 Months Immunizations Immunization Administration [...] Mass Index 34.9 05/29/2025 9:33 AM EST Plan of Treatment Upcoming Encounters Date Type Department Care Team (Late st Contact Info) Description 06/03/2025 9:30 AM EST Office Visit [facility] [address] [place] [address] Nathanael, Jayne, OD [address] [place] [address] 07/02/2025 10:00 AM EST Medication Management [facility] [address] [place] [address] Sandra Rasheed, PharmD [address] [place] [address] Health Maintenance Due Date Last Done Comments [...] 09/23/2020, Additional history exists Diabetes: Hemoglobin A1C 08/27/2025 025, 02/04/2025, 11/17/2024, Additional history exists Diabetes: Foot Exam 09/26/2025 09/26/2024, 09/26/2024, 09/26/2024, Additional history exists Lipid Panel 11/17/2025 11/17/2024, 05/13, 10/08/2022, Additional history exists Eye Exam 11/26/2025 11/26/2024, 11/11, 11/26/2024, Additional history exists Colonoscopy 02/10/2026 02/10/2023, 07/23/2012 Colorectal Cancer Screening 02/10/2026 Depression Screening 03/06/2026 03/06/2025, 03/06/20 25 SDOH Screening 03/06/2026 03/06/2025 Alcohol/Substance Use Screening 05/29/2026 05/29/2025 Tobacco Screening 05/29/2026 05/29/2025 DTaP/Tdap/Td Vaccines (2 - Td or Tdap) [...] Help patients manage their type 2 diabetes [place] Patient has chronic kidney disease Care Plan Patient has chronic kidney disease [place] MD Weekly blood pressure task Care Plan Weekly blood pressure task [place] Olive[place] MD Weekly blood pressure task Care Plan Weekly blood pressure task [place] Olive[place] MD Patient has diabetic eye disease Care Plan Patient has diabetic eye disease [place] Olive[place] MD Patient has diabetic eye disease Care Plan Patient has diabetic eye disease [place] Olive[place] MD Patient has chronic kidney disease Care Plan Patient has chronic kidney disease [place] Olive[place] MD Patient has chronic kidney disease Care Plan Patient has chronic kidney disease [place] Olive[place] MD Weekly blood pressure task Care Plan Weekly blood pressure task No Brantley, Amber, SOUNDSCRIBER MECHANIC Weekly blood pressure task Care Plan Weekly blood pressure task No [place]ley, Amber, SOUNDSCRIBER MECHANIC Weekly blood pressure task Care Plan Weekly blood pressure task No Br[place]ley, Amber, SOUNDSCRIBER MECHANIC Patient has diabetic eye disease Care Plan Patient has diabetic eye disease No [place]ley, Amber, SOUNDSCRIBER MECHANIC Patient has diabetic eye disease Care Plan Patient has diabetic eye disease No [place]ley, Amber, SOUNDSCRIBER MECHANIC Patient has diabetic eye disease Care Plan Patient has diabetic eye disease No [place]ley, Amber, SOUNDSCRIBER MECHANIC Patient has chronic kidney disease Care Plan Patient has chronic kidney disease No [place]ley, Amber, SOUNDSCRIBER MECHANIC Patient has chronic kidney disease Care Plan Patient has chronic kidney disease No [place]ley, Amber, SOUNDSCRIBER MECHANIC Patient has chronic kidney disease Care Plan Patient has chronic kidney disease No [place]ley, Amber, SOUNDSCRIBER MECHANIC Weekly blood pressure task Care Plan Weekly [...] Patient has chronic kidney disease No Sherita Mendez, PharmD Patient has chronic kidney disease Care Plan Patient has chronic kidney disease No Sherita Mendez, PharmD Patient has chronic kidney disease Care [...] chronic kidney disease No Karine Wu MA Procedures Procedure Name Priority Date/Time Associated Diagnosis Comments POCT URINALYSIS DIPSTICK Routine 05/29/2025 10:04 AM EST Suprapubic pressure POCT GLYCATED HEMOGLOBIN, TOTAL Routine 05/29/2025 9:37 AM EST Type 2 diabetes mellitus with hyperglycemia, with long-term current use of insulin (HCC) POCT GLUCOSE Routine 05/29/2025 9:35 AM EST Type 2 diabetes mellitus with hyperglycemia, with long-term current use of insulin ([facility]) BASIC METABOLIC PANEL Routine 05/08/2025 9:19 AM EST URINALYSIS, COMPLETE (INCLUDES MACRO AND MICRO) Routine 05/08/2025 9:14 AM EST BASIC METABOLIC [...] complication, without long-term current use of insulin ([facility]) LIPID PANEL, STANDARD Routine 11/17/2024 10:29 AM EDT HM COLONOSCOPY Routine 02/10/2023 PANORAMIC RADIOGRAPHIC IMAGE Routine 08/26/2021 12:00 AM EDT ZZZ HISTORICAL HEPATITIS C AB W/REFL TO HCV RNA, QN, PCR Routine 11/25/2020 10:49 AM EDT INTRAORAL - COMPLETE SERIES OF RADIOGRAPHIC IMAGES Routine 04/03/2009 12:00 AM EDT from Last 3 Months or Most Recently Relevant to Health Maintenance Results * POCT Urinalysis (05/29/2025 10:04 AM [...] (ABNORMAL) POCT Glucose (05/29/2025 9:35 AM EST) Only the most recent of2 resultswithin the time period is included. Glucose Blood, POC 244(A) 60 - 200 mg/dL QC Media Lot # [id number] Lot# Expiration Date [id number] Blood Capillary blood specimen / Unknown 05/29/2025 9:35 AM EST us Aneesh Name POINT OF CARE TEST ENTER/EDIT OR DERABLES Final Result * (ABNORMAL) Basic Metabolic Panel (05/08/2025 9:19 AM EST) Only the most recent of2 resultswithin the time period is included. Sodium 137 135 - 145 mmol/L [facility] Potassium 4.3 3.3 - 5.1 mmol/L [facility] Comment:Slight Hemolysis.Int erpret result with caution. Chloride 102 96 - 108 mmol/L [facility] Carbon Dioxide 25 22 - 29 mmol/L [facility] Anion Gap 14 12 - 20 [facility] Urea Nitrogen (BUN) 31(H) 9 - 16 mg/dL [facility] Creatinine, Serum 1.20 0.5 - 1.4 mg/dL [facility] Estimated Glomerular Filt Rate 59 [facility] Comment:Chronic Kidney Disea se: Estimated GFR < 60 mL/min/[id number] Kidney Disease: Estimated GFR < 15 mL/min/1.73m2 Glucose 268(H) 60 - 115 mg/dL [facility] Calcium 10.9(H) 8.4 - 10.2 mg/dL [facility] 05/08/2025 9:19 AM EST 05/08/2025 9:19 AM EST us Generic External Data Provider LAB BLOOD ORDERAB LES Final Result [facility] [address] [place] [phone] * (ABNORMAL) Urinalysis Complete (05/08/2025 9:14 AM EST) Color Urine Yellow [facility] Appearance Urine Clear [facility] PH 6.0 5.0 - 9.0 [facility] Glucose Urine UA >=1000(A) Negative mg/dL [facility] Urine Blood Negative Negative [facility] Specific [place] - Urine 1.020 1.005 - 1.025 [facility] Urine Protein 100 (2+)(A) Neg-Trace mg/dL [facility] Urine Ketones Negative Negative mg/dL [facility] Nitrite Urine Negative Negative [facility] Leukocyte Esterase Urine Negative Negative [facility] RBC Urine 0-2 0 - 2 /HPF [facility] Urine WBC 0-5 0 - 5 /HPF [facility] Urine Squamous Epithelial Cell 0-2 0 - 2 /HPF [facility] Urine Bacteria None Seen None Seen [facility] Hyaline Casts, Urine 0-2 0 - 2 /LPF [facility] 05/08/2025 9:14 AM EST 05/08/2025 9:53 AM EST us Generic External Data Provider LAB URINE ORDERAB LES Final Result [facility] [address] [place] [phone] * CBC (04/18/2025 8:11 AM EST) White Blood Count 10.3 4.8 - 10.8 X10*3/uL [facility] Red Blood Count 5.04 4.60 - 5.80 X10*6/uL [facility] Hemoglobin 14.6 14.0 - 18.0 g/dl [facility] Hematocrit 45.5 42.0 - 52.0 % [facility] Mean Corpuscular Volume 90.3 80.0 - 98.0 fL [facility] Mean Corpuscular Hemoglobin 29.0 27.0 - 33.0 pg [facility] Mean Corpuscular HGB Conc 32.1 31.0 - 36.0 g/dl [facility] Red Cell Distribution Width 13.2 11.0 - 16.0 % [facility] Platelet Count 305 160 - 400 X10*3/uL [facility] Mean Platelet Volume 10.3 9.4 - 12.4 fL [facility] NRBC Pct Auto 0.0 0.0 - 0.2 /100WBC [facility] NRBC Abs Auto 0.000 0.0 - 0.012 X10*3/uL [facility] 04/18/2025 8:11 AM EST 04/18/2025 8:11 AM EST us Generic External Data Provider LAB BLOOD ORDERAB LES Final Result Performing Organization Address City/State/[facility] Co de Phone Number [facility] [address] [place] [phone] * US Abdomen Complete (04/15/2025 2:54 PM EST) Anatomical Region Laterality Modality Abdomen Ultrasound 04/15/2025 2:54 PM EST Narrative 04/15/2025 2:56 PM EST [address] [address] Ultrasound Report Signed Patient: Josue Dawson MR#: [id number] : 1950 Acct:[id number] Age/Sex: 74 / M ADM Date: 04/15/25 Loc: HO.US Attending Dr: Toma Hernández MD Ordering Physician: Toma Hernández MD Date of Service: 04/15/25 Procedure(s): US abdomen complete Accession Number(s): [id number] cc: Aneesh Oliveira MD; Toma Hernández MD [...] 04/15/25 1455 DD/ 1454 TD/TT: 04/15/25 1454 Movie Editor: Procedure Note Donotuseinterpreter, Image - 04/15/2025 [place] [address] Ultrasound Report Signed Patient: Sylvia Dawson#: [id number] : 1950cct:[id number] Age/Sex: 74 / MADM Date: 04/15/25 Loc: HO.US Attending Dr: Toma Hernández MD Ordering Physician: Toma Hernández MD Date of Service: 04/15/25 Procedure(s): US abdomen complete Accession Number(s): [id number] cc: Name,Aneesh RIVERS; Toma Hernández MD Reason [...] 04/15/25 1455 DD/ 1454 TD/TT: 04/15/25 1454 Movie Editor: us [facility] External Provider IMG US PROCEDURES Final Result * VASC US Lower Extremity Arterial Duplex Bilateral With Baylee (04/08/2025 9:50 AM EDT) 04/08/2025 9:50 AM EDT Narrative [facility] - 04/08/2025 11:32 AM EDT [address] [address] Ultrasound Report Signed Patient: Josue Dawson MR#: [id number] : 1950 Acct:[id number] Age/Sex: 74 / M ADM Date: 04/08/25 Loc: HO.US Attending Dr: Rodney Smith MD Ordering Physician: Rodney Smith MD Date of Service: 04/08/25 Procedure(s): US arterial duplex BI w/ BAYLEE Accession Number(s): [id number] cc: Rodney Smith MD; Name,Aneesh RIVERS Reason [...] 04/08/25 1129 DD/ 0950 TD/TT: 04/08/25 1023 Movie Editor: Procedure Note Donotuseinterpreter, Image - 04/08/2025 [place] [address] Ultrasound Report Signed Patient: Josue Dawson#: [id number] : 1950cct:[id number] Age/Sex: 74 / MADM Date: 04/08/25 Loc: HO.US Attending Dr: Rodney Smith MD Ordering Physician: Rodney Smith MD Date of Service: 04/08/25 Procedure(s): US arterial duplex BI w/ BAYLEE Accession Number(s): [id number] cc: Rodney Smith MD; Name,Aneesh RIVERS Reason [...] 04/08/25 1129 DD/ 0950 TD/TT: 04/08/25 1023 Movie Editor: us [facility] External Provider CV VASC ULAR PROCEDURES Edited Result - Final [facility] [address] [place] [phone] * XR KUB and Upright 2 Views (04/03/2025 11:08 PM EDT) Anatomical Region Laterality Modality Radiographic Trang ging 04/03/2025 11:0 8 PM EDT Narrative 04/03/2025 11:10 PM EDT [address] [address] XRay Report Signed Patient: Josue Dawson MR#: [id number] : 1950 Acct:[id number] Age/Sex: 74 / M ADM Date: 04/03/25 Loc: HO.ED Attending Dr: Ordering Physician: Cherelle Peralta Date of Service: 04/03/25 Procedure(s): XR KUB Accession Number(s): [id number] cc: Cherelle Peralta; Name,Aneesh RIVERS Reason for [...] in OV> 04/03/252308 DD/ 07 TD/TT: 04/03/252307 Movie Editor: Procedure Note Donotuseinterpreter, Image - 04/03/2025 [place] [address] XRay Report Signed Patient: Josue Dawson#: [id number] : 1950cct:[id number] Age/Sex: 74 / MADM Date: 04/03/25 Loc: HO.ED Attending Dr: Ordering Physician: Cherelle Peralta Date of Service: 04/03/25 Procedure(s): XR KUB Accession Number(s): [id number] cc: Cherelle Peralta; NameAneesh MD Reason for Exam: constipation?pain CLINICAL HISTORY: [...] in OV> 04/03/252308 DD/ 07 TD/TT: 04/03/252307 Movie Editor: [facility] External Provider IMG XR PROCEDURES Edited Result - Final * XR Chest 2 Views (04/03/2025 9:00 AM EDT) Anatomical Region Laterality Modality Chest Radiographic Trang ging 04/03/2025 9:00 AM EDT Narrative 04/03/2025 9:10 AM EDT [address] [address] XRay Report Signed Patient: Josue Dawson MR#: [id number] : 1950 Acct:[id number] Age/Sex: 74 / M ADM Date: 04/03/25 Loc: HO.ED Attending Dr: Ordering Physician: Generic ED Physician Date of Service: 04/03/25 Procedure(s): XR chest 2V Accession Number(s): [id number] cc: Generic ED Physician; Name,Aneesh RIVERS Reason [...] 04/03/25 0908 DD/ 09 TD/TT: 04/03/25 0905 Movie Editor: Procedure Note Donotuseinterpreter, Image - 04/03/[address] [address] XRay Report Signed Patient: Josue DawsonMR#: [id number] : 1950cct:[id number] Age/Sex: 74 / MADM Date: 04/03/25 Loc: HO.ED Attending Dr: Ordering Physician: Generic ED Physician Date of Service: 04/03/25 Procedure(s): XR chest 2V Accession Number(s): [id number] cc: Generic ED Physician; Name,Aneesh RIVERS Reason [...] OV> 04/03/25 09 DD/ 9 TD/TT: 04/03/25904 Movie Editor: [facility] External Provider IMG XR PROCEDURES Final Result * Influenza A B2 ID NOW (Causey) (04/03/2025 8:54 AM EDT) IDNOW SERIAL# [id number] [facility] Influenza A Negative Negative [facility] Influenza B2 Negative Negative [facility] Influenza A B2 Note See Note [facility] Comment:The Causey ID NOW In fluenza [...] GENERAL ORDERABLES Final Result Performing Organization Address [facility]/ZIP Co de Phone Number [facility] [address] [place] [phone] * COVID-19 ID NOW (CAUSEY) (04/03/2025 8:54 AM EDT) IDNOW SERIAL# [id number] [facility] COVID-19 TEST Negative Negative [facility] COVID-19 NOTE See Note [facility] Comment: Results are for the identification of SARS-CoV2 RNA. TheSARS-CoV2 RNA is generally detectable in respiratory samplesduring the acute phase of infection. Positive results areindicative of the presence of SARS-CoV-2 RNA; clinicalcorrelation with patient history and other diagnosticinformation is necessary to determine patient infectionstatus. Positive results do not rule out bacterial infectionor co- infection with other viruses.Testing facilities within the [facility] and itsterritories are required to report [...] GNOSTICS ORDERABLES Final Result Performing Organization Address [facility]/ZIP Co de Phone Number [facility] [address] [place] [phone] * (ABNORMAL) CBC auto differential (04/03/2025 8:54 AM EDT) White Blood Count 9.7 4.8 - 10.8 X10*3/uL [facility] Red Blood Count 5.01 4.60 - 5.80 X10*6/uL [facility] Hemoglobin 14.9 14.0 - 18.0 g/dl [facility] Hematocrit 44.0 42.0 - 52.0 % [facility] Mean Corpuscular Volume 87.8 80.0 - 98.0 fL [facility] Mean Corpuscular Hemoglobin 29.7 27.0 - 33.0 pg [facility] Mean Corpuscular HGB Conc 33.9 31.0 - 36.0 g/dl [facility] Red Cell Distribution Width 13.3 11.0 - 16.0 % [facility] Platelet Count 312 160 - 400 X10*3/uL [facility] LABS Mean Platelet Volume 10.1 9.4 - 12.4 fL [facility] Neutrophils Percent Auto 64.8 45 - 73 % [facility] Imm Gran Pct Auto 0.9(H) 0.0 - 0.4 % [facility] Lymphocytes Percent Auto 25.2 20 - 40 % [facility] Monocytes Percent Auto 6.6 2 - 11 % [facility] Eosinophils Percent Auto 1.9 0 - 4 % [facility] Basophils Percent Auto 0.6 0 - 2 % [facility] NRBC Pct Auto 0.0 0.0 - 0.2 /100WBC [facility] Neutrophils Absolute Auto 6.3 2.0 - 8.3 x10*3/uL [facility] Imm Gran Abs Auto 0.09(H) 0.00 - 0.03 X10*3/uL [facility] Lymphocytes Absolute Auto 2.4 1.2 - 4.9 X10*3/uL [facility] Monocytes Absolute Auto 0.6 0.1 - 1.2 X10*3/uL [facility] Eosinophils Absolute Auto 0.2 0.0 - 0.4 X10*3/uL [facility] Basophils Absolute Auto 0.1 0.0 - 0.2 X10*3/uL [facility] NRBC Abs Auto 0.000 0.0 - 0.012 X10*3/uL [facility] 04/03/2025 8:54 AM EDT 04/03/2025 8:59 AM EDT us Generic External Data Provider LAB BLOOD ORDERAB LES Final Result [facility] [address] [place] [phone] * (ABNORMAL) Comprehensive Metabolic Panel (04/03/2025 8:54 AM EDT) Sodium 137 135 - 145 mmol/L [facility] Potassium 4.3 3.3 - 5.1 mmol/L [facility] Comment:Slight Hemolysis.Int erpret result with caution. Chloride 103 96 - 108 mmol/L [facility] Carbon Dioxide 27 22 - 29 mmol/L [facility] Anion Gap 11(L) 12 - 20 [facility] Urea Nitrogen (BUN) 21(H) 9 - 16 mg/dL [facility] Creatinine, Serum 1.14 0.5 - 1.4 mg/dL [facility] Creatinine Clr Calc Pharmacy 62.4 [facility] Comment:eGFR (calculated fro m the MDRD study equation) and eCrCl(calculated from the Cockcroft-Gault equation) are based ondifferent parameters and may not yield comparable results.If eCrCl result is absurd, please check patient'sheight/weight. Estimated Glomerular Filt Rate >60 [facility] Comment:Chronic Kidney Disea se: Estimated GFR < 60 mL/min/[id number] Kidney Disease: Estimated GFR < 15 mL/min/1.73m2 Glucose 253(H) 60 - 115 mg/dL [facility] Calcium 9.8 8.4 - 10.2 mg/dL [facility] Bilirubin, Total 0.4 0.0 - 1.0 mg/dL [facility] Aspartate Amino Transferase 55(H) 5 - 37 U/L [facility] Comment:Slight Hemolysis.Int erpret result with caution. Alanine Aminotransferase 74(H) 0 - 40 U/L [facility] Total Protein 7.5 6.5 - 8.0 g/dL [facility] Albumin Level 3.9 3.5 - 5.0 g/dL [facility] Alkaline Phosphatase 63 39 - 117 U/L [facility] 04/03/2025 8:54 AM EDT 04/03/2025 8:59 AM EDT us Generic External Data Provider LAB BLOOD ORDERAB LES Final Result [facility] [address] [place] [phone] * (ABNORMAL) Lipid Panel, Standard (11/17/2024 10:29 AM EDT) Triglycerides 129 <150 mg/dL [facility] Comment:Desirable Triglyceri de: less than 150 mg/dLBorderline High Triglyceride 150-199 mg/dLHigh Triglyceride: 200-499 mg/dLVery High Triglyceride: greater than or equal to 5OO mg/dL Cholesterol 179 <200 mg/dL [facility] Comment:Desirable Cholestero l: less than 200 mg/dLBorderline High Cholesterol: 200-239 mg/dLHigh Cholesterol: greater than 239 mg/dL LDL Cholesterol Calculated 115(H) <100 mg/dL [facility] Comment:Desirable LDL: less than 100 mg/dLNear Optimal/Above Optimal LDL: 110- 129 mg/dLBorderline High LDL: 130-159 mg/dLHigh LDL: 160-189 mg/dLVery High LDL: greater than or equal to 190 mg/dL HDL Cholesterol 39(L) >40 mg/dL [facility] Comment:Desirable HDL: great er than 40 mg/dL Note: This HDL assay may give artificially low results in patients with liver disease. 11/17/2024 10:2 9 AM EDT 11/17/2024 10:29 AM EDT Generic External Data Provider LAB BLOOD ORDERAB LES Final Result [facility] [address] [place] [phone] * (ABNORMAL) Hm Colonoscopy (02/10/2023) Colonoscopy Abnormal(A ) Normal us Aneesh Oliveira MD HEALTH MAINTENANCE Final Result * HEPATITIS C AB W/REFL TO HCV RNA, QN, PCR (11/25/2020 10:49 AM EDT) HEPATITIS C ANTIBODY NON-REACT [facility] NON-REACT [facility] INDEX 0.00 <1.00 [facility] Comment: HCV antibody was non-reactive. There is no laboratory evidence of HCV infection. In most cases, no further action is required. However, if recent HCV exposure is suspected, a test for HCV RNA (test code 31185) is suggested. For additional information please refer to http://education.Quickflix/faq/ZAI08a9 (This link is being provided for informational/ educational purposes only.) 11/25/2020 10:4 9 AM EDT us Aneesh Oliveira MD HISTORICAL/NON ORDERABLE LABS Fi nal Result Performing Organization Address City/[facility]/ZIP Co de Phone Number [facility] [address] from Last 3 Months or Most [...] 05/28/2025 Patient has chronic kidney disease 05/28/2025 Insurance [facility] [employer] [facility] - [facility] Care Teams App[employer] Zigzag Relationship Specialty Start Date End Date Name, MD Aneesh [address] [place] [phone] PCP - General Family Medicine 02/14/18 Sandra Rasheed, Javi [address] [place] [address] Pharmacist Internal Medicine 08/24/24
[2025-05-29 15:55] LABS: Prostate Specific Antigen 3.39 ng/mL (<0.05-4.0)
== END 2025-05-29 10:21 | disposition home or self-care (01) ==
LOC: HO.HHCL 10:20
PROVIDERS: PCP Internal Medicine Geriatric Medicine; Visit Provider Internal Medicine Geriatric Medicine
DX: N40.1 Benign prostatic hyperplasia with lower urinary tract symptoms (principal); R39.11 Hesitancy of micturition; Z12.5 Encounter for screening for malignant neoplasm of prostate
CPT/HCPCS: 36415; 84153